=== PATIENT | male | born 1975 | race Caucasian/White ===

== ENCOUNTER 2022-10-10 10:08 | Emergency (ER) | payer SELFPAY ==
--- NOTE | 2022-10-10 10:46 | EDPHYS ---
Physician Documentation [facility] Name: Vinny Ball Age: 46 yrs Sex: Male : 1975 Arrival Date: 10/10/2022 Time: 10:08 Bed 12 Private MD: ED Physician Brenton Villatoro HPI: 10/10 10:40 This 46 yrs old WHITE Male presents to ER via Ambulatory with complaints of Toothache. emiliano 10:40 The patient presents with lost tooth/teeth, pain, redness, swelling. The problem is emiliano located in the left buccal mucosa and right buccal mucosa. Onset: The symptoms/episode began/occurred 3 day(s) ago. Duration: The symptoms are continuous, and are steadily getting worse. Modifying factors: The symptoms are alleviated by nothing, the symptoms are aggravated by chewing, food. Associated signs and symptoms: The patient has no apparent associated signs or symptoms. Severity of symptoms: At their worst the symptoms were mild, moderate, in the emergency department the symptoms are unchanged. The patient has experienced similar episodes in the past, multiple times. Historical: - Allergies: 10:22 Cipro; hb - Home Meds: 10:22 None [Active]; hb - PMHx: 10:22 None; hb - PSHx: 10:22 None; hb - Immunization history:: Adult Immunizations up to date. - Social history:: Smoking status: Patient reports the use of cigarette tobacco products, smokes one-half pack cigarettes per day. ROS: 10:41 Constitutional: Negative for fever, chills, and weight loss, Eyes: Negative for injury, emiliano pain, redness, and discharge, Neck: Negative for injury, pain, and swelling, Cardiovascular: Negative for chest pain, palpitations, and edema, Respiratory: Negative for shortness of breath, cough, wheezing, and pleuritic chest pain, Abdomen/GI: Negative for abdominal pain, nausea, vomiting, diarrhea, and constipation, Back: Negative for injury and pain, : Negative for injury, bleeding, discharge, and swelling, MS/Extremity: Negative for injury and deformity, Skin: Negative for injury, rash, and discoloration, Neuro: Negative for headache, weakness, numbness, tingling, and seizure, Psych: Negative for depression, anxiety, suicide ideation, homicidal ideation, and hallucinations, Allergy/Immunology: Negative for hives, rash, and allergies, Endocrine: Negative for neck swelling, polydipsia, polyuria, polyphagia, and marked weight changes, Hematologic/Lymphatic: Negative for swollen nodes, abnormal bleeding, and unusual bruising. 10:41 ENT: Positive for Teeth pain Exam: 10:41 Constitutional: This is a well developed, well nourished patient who is awake, alert, emiliano and in no acute distress. Head/Face: Normocephalic, atraumatic. Eyes: Pupils equal round and reactive to light, extra-ocular motions intact. Lids and lashes normal. Conjunctiva and sclera are non-icteric and not injected. Cornea within normal limits. Periorbital areas with no swelling, redness, or edema. Neck: Trachea midline, no thyromegaly or masses palpated, and no cervical lymphadenopathy. Supple, full range of motion without nuchal rigidity, or vertebral point tenderness. No Meningismus. Chest/axilla: Normal chest wall appearance and motion. Nontender with no deformity. No lesions are appreciated. Cardiovascular: Regular rate and rhythm with a normal S1 and S2. No gallops, murmurs, or rubs. Normal PMI, no JVD. No pulse deficits. Respiratory: Lungs have equal breath sounds bilaterally, clear to auscultation and percussion. No rales, rhonchi or wheezes noted. No increased work of breathing, no retractions or nasal flaring. Abdomen/GI: Soft, non-tender, with normal bowel sounds. No distension or tympany. No guarding or rebound. No evidence of tenderness throughout. Back: No spinal tenderness. No costovertebral tenderness. Full range of motion. Male : Normal genitalia with no discharge or lesions. Skin: Warm, dry with normal turgor. Normal color with no rashes, no lesions, and no evidence of cellulitis. MS/ Extremity: Pulses equal, no cyanosis. Neurovascular intact. Full, normal range of motion. Neuro: Awake and alert, GCS 15, oriented to person, place, time, and situation. Cranial nerves II-XII grossly intact. Motor strength 5/5 in all extremities. Sensory grossly intact. Cerebellar exam normal. Normal gait. Psych: Awake, alert, with orientation to person, place and time. Behavior, mood, and affect are within normal limits. 10:41 ENT: Dental exam: dental caries, that is moderate, that is severe, diffusely, fractured teeth are noted, not appreciated, gum swelling, that is mild, malocclusion, is not appreciated. Vital Signs: 10:21 BP 121 / 76; Pulse 81; Resp 16; Temp 98.4; Pulse Ox 100% on R/A; Weight 79.83 kg; hb Height 6 ft. 0 in. ; Pain 7/10; 10:21 Body Mass Index 23.87 (79.83 kg, 182.88 cm) hb 10:21 Pain Scale: Adult hb MDM: 10:26 Patient medically screened. emiliano Administered Medications: 10:49 Drug: Amoxicillin PO 500 mg Route: PO; aa5 10:53 Follow up: Response: No adverse reaction; Medication administered at discharge. aa5 10:49 Drug: Ibuprofen PO 800 mg Route: PO; aa5 10:53 Follow up: Response: No adverse reaction; Medication administered at discharge. aa5 Disposition Summary: 10/10/22 10:45 Discharge Ordered Location: Home emiliano Problem: new emiliano Symptoms: have improved emiliano Condition: Stable emiliano Diagnosis - Dental root caries emiliano - Dental caries, unspecified emiliano - Dental alveolar anomalies emiliano Followup: emiliano - With: Private Physician - When: 2 - 3 days - Reason: Recheck today's complaints, Re-evaluation by your physician Followup: emiliano - With: Jose Ramon Rivas DDS - When: 2 - 3 days - Reason: Recheck today's complaints, Re-evaluation by your physician Discharge Instructions: - Discharge Summary Sheet emiliano - Dental Caries, Adult emiliano - Dental Pain emiliano - Dental Pain, [id number] emiliano - Diet and Dental Disease emiliano - Dental Caries, Adult, [id number] [facility] Forms: - Medication Reconciliation Form [facility] - Thank You Letter [facility] - Antibiotic Education emiliano - Prescription Opioid Use [facility] Prescriptions: - Amoxicillin 500 mg Oral Capsule - take 1 capsule by ORAL route every 8 hours for 14 days; 42 tablet; Refills: 0, emiliano Product Selection Permitted - Ibuprofen 600 mg Oral Tablet - take 1 tablet by ORAL route every 6 hours As needed take with food; 30 tablet; emiliano Refills: 0, Product Selection Permitted Signatures: Brenton Villatoro MD MD cha Calderon, Audri, RN RN aa5 Ginny Delgadillo RN RN
--- NOTE | 2022-10-10 10:46 | ER ---
Nurse's Notes [facility] Name: Vinny Ball Age: 46 yrs Sex: Male : 1975 Arrival Date: 10/10/2022 Time: 10:08 Bed 12 Private MD: Diagnosis: Dental root caries;Dental caries, unspecified;Dental alveolar anomalies Presentation: 10/10 10:21 Chief complaint: Left upper tooth pain. Coronavirus screen: At this time, the client hb does not indicate any symptoms associated with coronavirus-19. Ebola Screen: No symptoms or risks identified at this time. Initial Sepsis Screen: Does the patient meet any 2 criteria? No. Patient's initial sepsis screen is negative. Does the patient have a suspected source of infection? No. Patient's initial sepsis screen is negative. Risk Assessment: Do you want to hurt yourself or someone else? Patient reports no desire to harm self or others. Onset of symptoms was October 10, 2022. 10:21 Method Of Arrival: Ambulatory hb 10:21 Acuity: HAZEL 4 hb Historical: - Allergies: 10:22 Cipro; hb - Home Meds: 10:22 None [Active]; hb - PMHx: 10:22 None; hb - PSHx: 10:22 None; hb - Immunization history:: Adult Immunizations up to date. - Social history:: Smoking status: Patient reports the use of cigarette tobacco products, smokes one-half pack cigarettes per day. Assessment: 10:52 Reassessment: Patient is alert, oriented x 3, equal unlabored respirations, skin aa5 warm/dry/pink. Vital Signs: 10:21 BP 121 / 76; Pulse 81; Resp 16; Temp 98.4; Pulse Ox 100% on R/A; Weight 79.83 kg; hb Height 6 ft. 0 in. ; Pain 7/10; 10:21 Body Mass Index 23.87 (79.83 kg, 182.88 cm) hb 10:21 Pain Scale: Adult hb ED Course: 10:11 Patient arrived in ED. mr 10:22 Triage completed. hb 10:22 Arm band placed on. hb 10:26 Brenton Villatoro MD is Attending Physician. emiliano 10:44 Jose Ramon Rivas DDS is Referral Physician. emiliano 10:53 No provider procedures requiring assistance completed. Patient did not have IV access aa5 during this emergency room visit. Administered Medications: 10:49 Drug: Amoxicillin PO 500 mg Route: PO; aa5 10:53 Follow up: Response: No adverse reaction; Medication administered at discharge. aa5 10:49 Drug: Ibuprofen PO 800 mg Route: PO; aa5 10:53 Follow up: Response: No adverse reaction; Medication administered at discharge. aa5 Outcome: 10:45 Discharge ordered by . emiliano 10:52 Discharged to home ambulatory. aa5 10:52 Condition: stable 10:52 Discharge instructions given to patient, Instructed on discharge instructions, follow up and referral plans. medication usage, Demonstrated understanding of instructions, follow-up care, medications, Prescriptions given X 2. 10:53 Patient left the ED. aa5 Signatures: Brenton Villatoro MD MD cha Rivera, Mary mr Cline, Melissa, RN RN aa5 Ginny Delgadillo, FABIAN RN hb Corrections: (The following items were deleted from the chart) 10:23 10:21 BP 138 / 68; Pulse 81bpm; Resp 16bpm; Pulse Ox 100% RA; Temp 98.4F; 79.83 kg; hb Height 6 ft.; BMI: 23.8; Pain 7/10, Adult; hb
--- OUTSIDE RECORDS SUMMARY | 2022-10-10 10:52 | XMS REPORT | Continuity of Care Document ---
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 TOP, Q24H, [place] 00 0 Refill(s) QUEtiapine 2021-05 Yes 100 mg = 1 M emoria 100 mg oral 2-15 tab, PO, l tablet 18:51: Bedtime, 0 [place] 00 Refill(s) polyethylen 2021-05 Yes 17 gm, PO, Memoria e glycol 2-15 Daily, 0 l 3350 18:51: Refill(s) [place] 00 LORazepam 2021-05 Yes 2 mg = 1 Me moria mg/mL 2-15 mL, IVP, l injectable 18:51: Q2H, PRN Her street solution 00 Withdrawal , 0 Refill(s) mirtazapine 2021-05 Yes 7.5 mg = 1 [facility] 7.5 mg oral 2-15 tab, PO, l tablet 18:51: Bedtime, 0 [place] 00 Refill(s) nicotine 2021-05 Yes 14 mg = 1 Eliecer shannan 2-15 patch, l 18:51: TOP, Q24H, [place] 00 0 Refill(s) QUEtiapine 2021-05 Yes 100 mg = 1 M emoria 100 mg oral 2-15 tab, PO, l tablet 18:51: Bedtime, 0 [place] 00 Refill(s) polyethylen 2021-05 Yes 17 gm, PO, [facility]oria e glycol 2-15 Daily, 0 l 3350 18:51: Refill(s) LORazepam 2021-05 Yes 2 mg = 1 Me moria mg/mL 2-15 mL, IVP, l injectable 18:51: Q2H, PRN Her street solution 00 Withdrawal , 0 Refill(s) mirtazapine 2021-05 Yes 7.5 mg = 1 [facility] 7.5 mg oral 2-15 tab, PO, l tablet 18:51: Bedtime, 0 [place] 00 Refill(s) nicotine 2021-05 Yes 14 mg = 1 Eliecer shannan 2-15 patch, l 18:51: TOP, Q24H, [place] 00 0 Refill(s) QUEtiapine 2021-05 Yes 100 mg = 1 M emoria 100 mg oral 2-15 tab, PO, l tablet 18:51: Bedtime, 0 [place] 00 Refill(s) polyethylen 2021-05 Yes 17 gm, PO, Memoria e glycol 2-15 Daily, 0 l 3350 18:51: Refill(s) LORazepam 2 1 Yes 2 mg = 1 Me moria mg/mL 2-15 mL, IVP, l injectable 18:51: Q2H, PRN Her street solution 00 Withdrawal , 0 Refill(s) mirtazapine 2021-05 Yes 7.5 mg = 1 [facility] 7.5 mg oral 2-15 tab, PO, l tablet 18:51: Bedtime, 0 [place] 00 Refill(s) nicotine 2021-05 Yes 14 mg = 1 Eliecer shannan 2-15 patch, l 18:51: TOP, Q24H, [place] 00 0 Refill(s) QUEtiapine 2021-05 Yes 100 mg = 1 M emoria 100 mg oral 2-15 tab, PO, l tablet 18:51: Bedtime, 0 [place] 00 Refill(s) polyethylen 2021-05 Yes 17 gm, PO, Memoria e glycol 2-15 Daily, 0 l 3350 18:51: Refill(s) LORazepam 2021-05 Yes 2 mg = 1 Me moria mg/mL 2-15 mL, IVP, l injectable 18:51: Q2H, PRN Her street solution 00 Withdrawal , 0 Refill(s) mirtazapine 2021-05 Yes 7.5 mg = 1 [facility] 7.5 mg oral 2-15 tab, PO, l tablet 18:51: Bedtime, 0 [place] 00 Refill(s) nicotine 2021-05 Yes 14 mg = 1 Eliecer shannan 2-15 patch, l 18:51: TOP, Q24H, [place] 00 0 Refill(s) QUEtiapine 2021-05 Yes 100 mg = 1 M emoria 100 mg oral 2-15 tab, PO, l tablet 18:51: Bedtime, 0 [place] 00 Refill(s) polyethylen 2021-05 Yes 17 gm, PO, [facility]oria e glycol 2-15 Daily, 0 l 3350 18:51: Refill(s) LORazepam 2021-05 Yes 2 mg = 1 Me moria mg/mL 2-15 mL, IVP, l injectable 18:51: Q2H, PRN Her street solution 00 Withdrawal , 0 Refill(s) mirtazapine 2021-05 Yes 7.5 mg = 1 [facility] 7.5 mg oral 2-15 tab, PO, l tablet 18:51: Bedtime, 0 [place] 00 Refill(s) nicotine 2021-05 Yes 14 mg = 1 Eliecer shannan 2-15 patch, l 18:51: TOP, Q24H, [place] 00 0 Refill(s) QUEtiapine 2021-05 Yes 100 mg = 1 M emoria 100 mg oral 2-15 tab, PO, l tablet 18:51: Bedtime, 0 [place] 00 Refill(s) polyethylen 2021-05 Yes 17 gm, PO, Memoria e glycol 2-15 Daily, 0 l 3350 18:51: Refill(s) [place] 00 Ativan 2021-05 No 0.5 mg, [facility] 2-12 Route: PO, l 20:05: Drug form: [place] 00 TAB, TID, Dosing Weight 83.182, kg, PRN Anxiety, Start date: 04/18/22 14:05:00 [employer], Duration: 30 day, Stop date: 05/18/22 14:04:00 [employer] Ativan 2021-05 No 0.5 mg, [facility] 2-12 Route: PO, l 20:05: Drug form: [place] 00 TAB, TID, Dosing Weight 83.182, kg, PRN Anxiety, Start date: 04/18/22 14:05:00 [employer], Duration: 30 day, Stop date: 05/18/22 14:04:00 [employer] Ativan 2021-05 No 0.5 mg, [facility] 2-12 Route: PO, l 20:05: Drug form: [place] 00 TAB, TID, Dosing Weight 83.182, kg, PRN Anxiety, Start date: 04/18/22 14:05:00 [employer], Duration: 30 day, Stop date: 05/18/22 14:04:00 [employer] Ativan 2021-05 No 0.5 mg, [facility] 2-12 Route: PO, l 20:05: Drug form: [place] 00 TAB, TID, Dosing Weight 83.182, kg, PRN Anxiety, Start date: 04/18/22 14:05:00 [employer], Duration: 30 day, Stop date: 05/18/22 14:04:00 [employer] Ativan 2021-05 No 0.5 mg, [facility] 2-12 Route: PO, l 20:05: Drug form: [place] 00 TAB, TID, Dosing Weight 83.182, kg, PRN Anxiety, Start date: 04/18/22 14:05:00 [employer], Duration: 30 day, Stop date: 05/18/22 14:04:00 [employer] Ativan 2021-05 No 0.5 mg, [facility] 2-12 Route: PO, l 20:05: Drug form: [place] 00 TAB, TID, Dosing Weight 83.182, kg, PRN Anxiety, Start date: 04/18/22 14:05:00 [employer], Duration: 30 day, Stop date: 05/18/22 14:04:00 [employer] Ativan 2021-05 No 0.5 mg, [facility] 2-12 Route: PO, l 20:05: Drug form: [place] 00 TAB, TID, Dosing Weight 83.182, kg, PRN Anxiety, Start date: 04/18/22 14:05:00 [employer], Duration: 30 day, Stop date: 05/18/22 14:04:00 [employer] Ativan 2021-05 No 0.5 mg, [facility] 2-12 Route: PO, l 20:05: Drug form: [place] 00 TAB, TID, Dosing Weight 83.182, kg, PRN Anxiety, Start date: 04/18/22 14:05:00 [employer], Duration: 30 day, Stop date: 05/18/22 14:04:00 [employer] SEROquel 2021-05 No Notes: [facility] 2-09 (Same as: l 15:00: SEROquel) [place] SEROquel 2021-05 No Notes: [facility] 2-09 (Same as: l 15:00: SEROquel) [place] SEROquel 2021-05 No Notes: [facility] 2-09 (Same as: l 15:00: SEROquel) [place] SEROquel 2021-05 No Notes: [facility] 2-09 (Same as: l 15:00: SEROquel) [place] 00 SEROquel 2021-05 No Notes: [facility] 2-09 (Same as: l 15:00: SEROquel) [place] SEROquel 2021-05 No Notes: [facility] 2-09 (Same as: l 15:00: SEROquel) SEROquel 2021-05 No Notes: [facility] 2-09 (Same as: l 15:00: SEROquel) SEROquel 2021-05 No Notes: [facility] 2-09 (Same as: l 15:00: SEROquel) Tylenol 2021-05 No Notes: Do Memor ia 2-09 not exceed l 04:56: 4 gm/day. (Same as: Tylenol) Tylenol 2021-05 No Notes: Do Memor ia 2-09 not exceed l 04:56: 4 gm/day. (Same as: Tylenol) Tylenol 2021-05 No Notes: Do Memor ia 2-09 not exceed l 04:56: 4 gm/day. (Same as: Tylenol) Tylenol 2021-05 No Notes: Do Memor ia 2-09 not exceed l 04:56: 4 gm/day. (Same as: Tylenol) Tylenol 2021-05 No Notes: Do Memor ia 2-09 not exceed l 04:56: 4 gm/day. (Same as: Tylenol) Tylenol 2021-05 No Notes: Do Memor ia 2-09 not exceed l 04:56: 4 gm/day. (Same as: Tylenol) Tylenol 2021-05 No Notes: Do [facility] ia 2-09 not exceed l 04:56: 4 gm/day. (Same as: Tylenol) Tylenol 2021-05 No Notes: Do [facility] ia 2-09 not exceed l 04:56: 4 gm/day. (Same as: Tylenol) SEROquel 2021-05 No Notes: [facility] 2-09 (Same as: l 03:00: SEROquel) SEROquel 2021-05 No Notes: [facility] 2-09 (Same as: l 03:00: SEROquel) SEROquel 2021-05 No Notes: [facility] 2-09 (Same as: l 03:00: SEROquel) SEROquel 2021-05 No Notes: [facility] 2-09 (Same as: l 03:00: SEROquel) [place] 00 SEROquel 2021-05 No Notes: [facility] 2-09 (Same as: l 03:00: SEROquel) [place] 00 SEROquel 2021-05 No Notes: [facility] 2-09 (Same as: l 03:00: SEROquel) [place] 00 SEROquel 2021-05 No Notes: [facility] 2-09 (Same as: l 03:00: SEROquel) [place] 00 SEROquel 2021-05 No Notes: [facility] 2-09 (Same as: l 03:00: SEROquel) [place] 00 remove 2021-05 No Notes: [facility] patch 2-08 Remove old l 20:00: patch [place] 00 before applicatio n of new patch. WASTE: F/P - P Waste Black; E - P Waste Black remove 2021-05 No Notes: [facility] patch 2-08 Remove old l 20:00: patch [place] 00 before applicatio n of new patch. WASTE: F/P - P Waste Black; E - P Waste Black remove 2021-05 No Notes: [facility] patch 2-08 Remove old l 20:00: patch [place] 00 before applicatio n of new patch. WASTE: F/P - P Waste Black; E - P Waste Black remove 2021-05 No Notes: [facility] patch 2-08 Remove old l 20:00: patch [place] 00 before applicatio n of new patch. WASTE: F/P - P Waste Black; E - P Waste Black remove 2021-05 No Notes: [facility] patch 2-08 Remove old l 20:00: patch [place] 00 before applicatio n of new patch. WASTE: F/P - P Waste Black; E - P Waste Black remove 2021-05 No Notes: [facility] patch 2-08 Remove old l 20:00: patch [place] 00 before applicatio n of new patch. WASTE: F/P - P Waste Black; E - P Waste Black remove 2021-05 No Notes: [facility] patch 2-08 Remove old l 20:00: patch [place] 00 before applicatio n of new patch. WASTE: F/P - P Waste Black; E - P Waste Black remove 2021-05 No Notes: [facility] patch 2-08 Remove old l 20:00: patch [place] 00 before applicatio n of new patch. WASTE: F/P - P Waste Black; E - P Waste Black dol 2021-05 No Notes: [facility] 2-08 (Same as: l 19:27: Haldol) [place] 00 Haldol 2021-05 No Notes: [facility] 2-08 (Same as: l 19:27: Haldol) [place] 00 Haldol 2021-05 No Notes: [facility] 2-08 (Same as: l 19:27: Haldol) [place] 00 Haldol 2021-05 No Notes: [facility] 2-08 (Same as: l 19:27: Haldol) Haldol 2021-05 No Notes: [facility] 2-08 (Same as: l 19:27: Haldol) [place] 00 Haldol 2021-05 No Notes: [facility] 2-08 (Same as: l 19:27: Haldol) [place] 00 Haldol 2021-05 No Notes: [facility] 2-08 (Same as: l 19:27: Haldol) [place] 00 Haldol 2021-05 No Notes: [facility] 2-08 (Same as: l 19:27: Haldol) Ativan 2021-05 No Notes: [facility] 2-08 (Same as: l 18:00: Ativan) Ativan 2021-05 No Notes: [facility] 2-08 (Same as: l 18:00: Ativan) Ativan 2021-05 No Notes: [facility] 2-08 (Same as: l 18:00: Ativan) Ativan 2021-05 No Notes: [facility] 2-08 (Same as: l 18:00: Ativan) Ativan 2021-05 No Notes: [facility] 2-08 (Same as: l 18:00: Ativan) Ativan 2021-05 No Notes: [facility] 2-08 (Same as: l 18:00: Ativan) Ativan 2021-05 No Notes: [facility] 2-08 (Same as: l 18:00: Ativan) Ativan 2021-05 No Notes: [facility] 2-08 (Same as: l 18:00: Ativan) [place] 00 SEROquel 2021-05 No Notes: [facility] 2-08 (Same as: l 15:00: SEROquel) [place] 00 SEROquel 2021-05 No Notes: [facility] 2-08 (Same as: l 15:00: SEROquel) [place] 00 SEROquel 2021-05 No Notes: [facility] 2-08 (Same as: l 15:00: SEROquel) [place] 00 SEROquel 2021-05 No Notes: [facility] 2-08 (Same as: l 15:00: SEROquel) [place] SEROquel 2021-05 No Notes: [facility] 2-08 (Same as: l 15:00: SEROquel) [place] SEROquel 2021-05 No Notes: [facility] 2-08 (Same as: l 15:00: SEROquel) [place] SEROquel 2021-05 No Notes: [facility] 2-08 (Same as: l 15:00: SEROquel) [place] 00 SEROquel 2021-05 No Notes: [facility] 2-08 (Same as: l 15:00: SEROquel) [place] 00 sterile 2021-05 No Notes: For Eliecer shannan water 2-08 reconstitu l 13:46: tion of [place] 00 drugs only sterile 2021-05 No Notes: For Eliecer shannan water 2-08 reconstitu l 13:46: tion of [place] 00 drugs only sterile 2021-05 No Notes: For Eliecer shannan water 2-08 reconstitu l 13:46: tion of [place] 00 drugs only sterile 2021-05 No Notes: For Eliecer shannan water 2-08 reconstitu l 13:46: tion of [place] 00 drugs only sterile 2021-05 No Notes: For Eliecer shannan water 2-08 reconstitu l 13:46: tion of [place] 00 drugs only sterile 2021-05 No Notes: For Eliecer shannan water 2-08 reconstitu l 13:46: tion of [place] 00 drugs only sterile 2021-05 No Notes: For Eliecer shannan water 2-08 reconstitu l 13:46: tion of [place] 00 drugs only sterile 2021-05 No Notes: For Eliecer shannan water 2-08 reconstitu l 13:46: tion of [place] 00 drugs only Geodon 2021-05 No Notes: [facility] 2-08 Reconstitu l 13:31: te with [place] 00 1.2 ml of sterile water. Final concentrat ion = 20 mg/1ml. Maximum 40 mg/24 hours (Same As: Lizeth). [facility] 3:Reproduc tive risk Hazardous Drug -- Refer to safe handling procedure PPE [employer] MEDICATION WASTE Product Size: 20 mg Product Wasted: ___ mg Geodon 2021-05 No Notes: [facility] 2-08 Reconstitu l 13:31: te with [place] 00 1.2 ml of sterile water. Final concentrat ion = 20 mg/1ml. Maximum 40 mg/24 hours (Same As: Lizeth). [facility]ous [facility] Group 3:Reproduc tive risk Hazardous Drug -- Refer to safe handling procedure PPE [employer] MEDICATION WASTE Product Size: 20 mg Product Wasted: ___ mg Geodon 2021-05 No Notes: [facility] 2-08 Reconstitu l 13:31: te with [place] 00 1.2 ml of sterile water. Final concentrat ion = 20 mg/1ml. Maximum 40 mg/24 hours (Same As: Lizeth). [facility]ous [facility] 3:Reproduc tive risk Hazardous Drug -- Refer to safe handling procedure PPE [employer] MEDICATION WASTE Product Size: 20 mg Product Wasted: ___ mg Geodon 2021-05 No Notes: [facility] 2-08 Reconstitu l 13:31: te with [place] 00 1.2 ml of sterile water. Final concentrat ion = 20 mg/1ml. Maximum 40 mg/24 hours (Same As: Lizeth). [facility]ous [facility] 3:Reproduc tive risk Hazardous Drug -- Refer to safe handling procedure PPE [employer] MEDICATION WASTE Product Size: 20 mg Product Wasted: ___ mg Geodon 2021-05 No Notes: [facility] 2-08 Reconstitu l 13:31: te with [place] 00 1.2 ml of sterile water. Final concentrat ion = 20 mg/1ml. Maximum 40 mg/24 hours (Same As: [place]). [facility] Group 3:Reproduc tive risk Hazardous Drug -- Refer to safe handling procedure PPE [employer] MEDICATION WASTE Product Size: 20 mg Product Wasted: ___ mg Geodon 2021-05 No Notes: [facility] 2-08 Reconstitu l 13:31: te with [place] 00 1.2 ml of sterile water. Final concentrat ion = 20 mg/1ml. Maximum 40 mg/24 hours (Same As: Lizeth). [facility]ous [facility] Group 3:Reproduc tive risk Hazardous Drug -- Refer to safe handling procedure PPE [employer] MEDICATION WASTE Product Size: 20 mg Product Wasted: ___ mg Geodon 2021-05 No Notes: [facility] 2-08 Reconstitu l 13:31: te with [place] 00 1.2 ml of sterile water. Final concentrat ion = 20 mg/1ml. Maximum 40 mg/24 hours (Same As: Lizeth). Haz[facility]ous Drug Group 3:Reproduc tive risk Hazardous Drug -- Refer to safe handling procedure PPE [employer] MEDICATION WASTE Product Size: 20 mg Product Wasted: ___ mg Geodon 2021-05 No Notes: [facility] 2-08 Reconstitu l 13:31: te with [place] 00 1.2 ml of sterile water. Final concentrat ion = 20 mg/1ml. Maximum 40 mg/24 hours (Same As: [place]). Hazardous Drug Group 3:Reproduc tive risk Hazardous Drug -- Refer to safe handling procedure PPE [employer] MEDICATION WASTE Product Size: 20 mg Product Wasted: ___ mg Ativan 2021-05 Yes Notes: [facility] 2-08 (Same as: l 12:53: Ativan) [place] Ativan 2021-05 Yes Notes: [facility] 2-08 (Same as: l 12:53: Ativan) [place] Ativan 2021-05 Yes Notes: [facility] 2-08 (Same as: l 12:53: Ativan) [place] Ativan 2021-05 Yes Notes: [facility] 2-08 (Same as: l 12:53: Ativan) [place] Ativan 2021-05 Yes Notes: [facility] 2-08 (Same as: l 12:53: Ativan) [place] Ativan 2021-05 Yes Notes: [facility] 2-08 (Same as: l 12:53: Ativan) [place] 00 Ativan 2021-05 Yes Notes: [facility] 2-08 (Same as: l 12:53: Ativan) [place] Ativan 2021-05 Yes Notes: [facility] 2-08 (Same as: l 12:53: Ativan) [place] 00 mirtazapine 2021-05 No Notes: Eliecer shannan 2-08 (Same l 03:00: as:Remeron [place] 00 ) mirtazapine 2021-05 No Notes: Eliecer shannan 2-08 (Same l 03:00: as:Remeron [place] 00 ) mirtazapine 2021-05 No Notes: Eliecer shannan 2-08 (Same l 03:00: as:Remeron [place] 00 ) mirtazapine 2021-05 No Notes: Eliecer shannan 2-08 (Same l 03:00: as:Remeron [place] 00 ) mirtazapine 2021-05 No Notes: Eliecer shannan 2-08 (Same l 03:00: as:Remeron [place] 00 ) mirtazapine 2021-05 No Notes: Eliecer shannan 2-08 (Same l 03:00: as:Remeron [place] 00 ) mirtazapine 2021-05 No Notes: Eliecer shannan 2-08 (Same l 03:00: as:Remeron [place] 00 ) mirtazapine 2021-05 No Notes: Eliecer shannan 2-08 (Same l 03:00: as:Remeron [place] 00 ) Xanax 0.5 2021-05 No Notes: Memori a mg oral 2-07 With food l tablet 22:23: or milk [place] 00 (Same as: Xanax) Xanax 0.5 2021-05 No Notes: [facility]ori a mg oral 2-07 With food l tablet 22:23: or milk [place] 00 (Same as: Xanax) Xanax 0.5 2021-05 No Notes: [facility]ori a mg oral 2-07 With food l tablet 22:23: or milk [place] 00 (Same as: Xanax) Xanax 0.5 2021-05 No Notes: [facility]ori a mg oral 2-07 With food l tablet 22:23: or milk [place] 00 (Same as: Xanax) Xanax 0.5 2021-05 No Notes: [facility]ori a mg oral 2-07 With food l tablet 22:23: or milk [place] 00 (Same as: Xanax) Xanax 0.5 2021-05 No Notes: [facility]ori a mg oral 2-07 With food l tablet 22:23: or milk [place] 00 (Same as: Xanax) Xanax 0.5 2021-05 No Notes: [facility]ori a mg oral 2-07 With food l tablet 22:23: or milk [place] 00 (Same as: Xanax) Xanax 0.5 2021-05 No Notes: [facility] a mg oral 2-07 With food l tablet 22:23: or milk [place] 00 (Same as: Xanax) nicotine 2021-05 No Notes: [facility] 2-07 Patch is l 20:00: applied [place] 00 daily to clean, dry, hairless, intact skin on trunk or upper outer arm. Starting dose 10 or less cigarettes /day. Remove old patch before applicatio n of new patch. (Same as Sudha Nicoderm WASTE: F/P - P Waste Black; E - P Waste Black nicotine 2021-05 No Notes: [facility] 2-07 Patch is l 20:00: applied [place] 00 daily to clean, dry, hairless, intact skin on trunk or upper outer arm. Starting dose 10 or less cigarettes /day. Remove old patch before applicatio n of new patch. (Same as Sudha Nicoderm WASTE: F/P - P Waste Black; E - P Waste Black nicotine 2021-05 No Notes: [facility] 2-07 Patch is l 20:00: applied [place] 00 daily to clean, dry, hairless, intact skin on trunk or upper outer arm. Starting dose 10 or less cigarettes /day. Remove old patch before applicatio n of new patch. (Same as Sudha Nicoderm WASTE: F/P - P Waste Black; E - P Waste Black nicotine 2021-05 No Notes: [facility] 2-07 Patch is l 20:00: applied [place] 00 daily to clean, dry, hairless, intact skin on trunk or upper outer arm. Starting dose 10 or less cigarettes /day. Remove old patch before applicatio n of new patch. (Same as Habitrol, Nicoderm WASTE: F/P - P Waste Black; E - P Waste Black nicotine 2021-05 No Notes: [facility] 2-07 Patch is l 20:00: applied [place] 00 daily to clean, dry, hairless, intact skin on trunk or upper outer arm. Starting dose 10 or less cigarettes /day. Remove old patch before applicatio n of new patch. (Same as Habitrol, Nicoderm WASTE: F/P - P Waste Black; E - P Waste Black nicotine 2021-05 No Notes: [facility] 2-07 Patch is l 20:00: applied [place] 00 daily to clean, dry, hairless, intact skin on trunk or upper outer arm. Starting dose 10 or less cigarettes /day. Remove old patch before applicatio n of new patch. (Same as Habitrol, Nicoderm WASTE: F/P - P Waste Black; E - P Waste Black nicotine 2021-05 No Notes: [facility] 2-07 Patch is l 20:00: applied [place] 00 daily to clean, dry, hairless, intact skin on trunk or upper outer arm. Starting dose 10 or less cigarettes /day. Remove old patch before applicatio n of new patch. (Same as Habitrol, Nicoderm WASTE: F/P - P Waste Black; E - P Waste Black nicotine 2021-05 No Notes: [facility] 2-07 Patch is l 20:00: applied [place] 00 daily to clean, dry, hairless, intact skin on trunk or upper outer arm. Starting dose 10 or less cigarettes /day. Remove old patch before applicatio n of new patch. (Same as Habitrol, Nicoderm WASTE: F/P - P Waste Black; E - P Waste Black polyethylen 2021-05 No Notes: Eliecer shannan e glycol 2-07 Dissolve l 3350 15:00: in 8 oz of [place] 00 water or juice. (Same as: Miralax) heparin 2021-05 No Notes: [facility] 2-07 porcine l 15:00: heparin [place] 00 folic acid 2021-05 No Notes: Memor ia 2-07 (Same as: l 15:00: Folvite) [place] 00 multivitami 2021-05 No Notes: Eliecer shannan n 2-07 (Same l 15:00: as:Thera) [place] 00 WASTE: F/P - Black; E - [employer] Trash Bin Take with food. thiamine 2021-05 No Notes: [facility] 2-07 (Same As: l 15:00: Vitamin [place] 00 B1) polyethylen 2021-05 No Notes: Eliecer shannan e glycol 2-07 Dissolve l 3350 15:00: in 8 oz of [place] 00 water or juice. (Same as: Miralax) heparin 2021-05 No Notes: [facility] 2-07 porcine l 15:00: heparin [place] 00 folic acid 2021-05 No Notes: [facility] ia 2-07 (Same as: l 15:00: Folvite) [place] 00 multivitami 2021-05 No Notes: Eliecer shannan n 2-07 (Same l 15:00: as:Thera) [place] 00 WASTE: F/P - Black; E - [employer] Trash Bin Take with food. thiamine 2021-05 No Notes: [facility] 2-07 (Same As: l 15:00: Vitamin [place] 00 B1) polyethylen 2021-05 No Notes: Eliecer shannan e glycol 2-07 Dissolve l 3350 15:00: in 8 oz of [place] 00 water or juice. (Same as: Miralax) heparin 2021-05 No Notes: [facility] 2-07 porcine l 15:00: heparin [place] 00 folic acid 2021-05 No Notes: [facility] ia 2-07 (Same as: l 15:00: Folvite) [place] 00 multivitami 2021-05 No Notes: Eliecer shannan n 2-07 (Same l 15:00: as:Thera) [place] 00 WASTE: F/P - Black; E - [employer] Trash Bin Take with food. thiamine 2021-05 No Notes: [facility] 2-07 (Same As: l 15:00: Vitamin [place] 00 B1) polyethylen 2021-05 No Notes: Eliecer shannan e glycol 2-07 Dissolve l 3350 15:00: in 8 oz of [place] 00 water or juice. (Same as: Miralax) heparin 2021-05 No Notes: [facility] 2-07 porcine l 15:00: heparin [place] 00 folic acid 2021-05 No Notes: [facility] ia 2-07 (Same as: l 15:00: Folvite) [place] 00 multivitami 2021-05 No Notes: Eliecer shannan n 2-07 (Same l 15:00: as:Thera) [place] 00 WASTE: F/P - Black; E - [employer] Trash Bin Take with food. thiamine 2021-05 No Notes: [facility] 2-07 (Same As: l 15:00: Vitamin [place] 00 B1) polyethylen 2021-05 No Notes: Eliecer shannan e glycol 2-07 Dissolve l 3350 15:00: in 8 oz of [place] 00 water or juice. (Same as: Miralax) heparin 2021-05 No Notes: [facility] 2-07 porcine l 15:00: heparin [place] 00 folic acid 2021-05 No Notes: [facility] ia 2-07 (Same as: l 15:00: Folvite) [place] 00 multivitami 2021-05 No Notes: Eliecer shannan n 2-07 (Same l 15:00: as:Thera) [place] 00 WASTE: F/P - Black; E - [employer] Trash Bin Take with food. thiamine 2021-05 No Notes: [facility] 2-07 (Same As: l 15:00: Vitamin [place] 00 B1) polyethylen 2021-05 No Notes: Eliecer shannan e glycol 2-07 Dissolve l 3350 15:00: in 8 oz of [place] 00 water or juice. (Same as: Miralax) heparin 2021-05 No Notes: [facility] 2-07 porcine l 15:00: heparin [place] 00 folic acid 2021-05 No Notes: [facility] ia 2-07 (Same as: l 15:00: Folvite) [place] 00 multivitami 2021-05 No Notes: Eliecer shannan n 2-07 (Same l 15:00: as:Thera) [place] 00 WASTE: F/P - Black; E - Municipal Trash Bin Take with food. thiamine 2021-05 No Notes: Memoria 2-07 (Same As: l 15:00: Vitamin [place] 00 B1) polyethylen 2021-05 No Notes: Eliecer shannan e glycol 2-07 Dissolve l 3350 15:00: in 8 oz of [place] 00 water or juice. (Same as: Miralax) heparin 2021-05 No Notes: Memoria 2-07 porcine l 15:00: heparin [place] 00 folic acid 2021-05 No Notes: Memor ia 2-07 (Same as: l 15:00: Folvite) [place] 00 multivitami 2021-05 No Notes: Eliecer shannan n 2-07 (Same l 15:00: as:Thera) [place] 00 WASTE: F/P - Black; E - [employer] Trash Bin Take with food. thiamine 2021-05 No Notes: Memoria 2-07 (Same As: l 15:00: Vitamin [place] 00 B1) polyethylen 2021-05 No Notes: Eliecer shannan e glycol 2-07 Dissolve l 3350 15:00: in 8 oz of [place] 00 water or juice. (Same as: Miralax) heparin 2021-05 No Notes: Memoria 2-07 porcine l 15:00: heparin [place] 00 folic acid 2021-05 No Notes: Memor ia 2-07 (Same as: l 15:00: Folvite) [place] 00 multivitami 2021-05 No Notes: Eliecer shannan n 2-07 (Same l 15:00: as:Thera) [place] 00 WASTE: F/P - Black; E - [employer] Trash Bin Take with food. thiamine 2021-05 No Notes: [facility] 2-07 (Same As: l 15:00: Vitamin [place] 00 B1) morphine 2021-05 No Notes: [facility] Sulfate 2-07 (Same l 10:45: as:MORPhin [place] 00 e Sulfate) morphine 2021-05 No Notes: [facility] Sulfate 2-07 (Same l 10:45: as:MORPhin [place] 00 e Sulfate) morphine 2021-05 No Notes: [facility] Sulfate 2-07 (Same l 10:45: as:MORPhin [place] 00 e Sulfate) morphine 2021-05 No Notes: [facility] Sulfate 2-07 (Same l 10:45: as:MORPhin [place] 00 e Sulfate) morphine 2021-05 No Notes: [facility] Sulfate 2-07 (Same l 10:45: as:MORPhin [place] 00 e Sulfate) morphine 2021-05 No Notes: [facility] Sulfate 2-07 (Same l 10:45: as:MORPhin Cehng 00 e Sulfate) morphine 2021-05 No Notes: [facility] Sulfate 2-07 (Same l 10:45: as:MORPhin [place] 00 e Sulfate) morphine 2021-05 No Notes: [facility] Sulfate 2-07 (Same l 10:45: as:MORPhin [place] 00 e Sulfate) LORazepam 2021-05 No Notes: [facility]ori a 2-07 (Same as: l 09:21: Ativan) LORazepam 2021-05 No Notes: [facility] a 2-07 (Same as: l 09:21: Ativan) LORazepam 2021-05 No Notes: [facility] a 2-07 (Same as: l 09:21: Ativan) LORazepam 2021-05 No Notes: [facility] a 2-07 (Same as: l 09:21: Ativan) LORazepam 2021-05 No Notes: [facility] a 2-07 (Same as: l 09:21: Ativan) LORazepam 2021-05 No Notes: [facility] a 2-07 (Same as: l 09:21: Ativan) LORazepam 2021-05 No Notes: [facility] a 2-07 (Same as: l 09:21: Ativan) LORazepam 2021-05 No Notes: [facility] a 2-07 (Same as: l 09:21: Ativan) melatonin 2021-05 No Notes: [facility] a 2-07 (Same as: l 09:19: Melatonin) melatonin 2021-05 No Notes: [facility] a 2-07 (Same as: l 09:19: Melatonin) melatonin 2021-05 No Notes: [facility] a 2-07 (Same as: l 09:19: Melatonin) melatonin 2021-05 No Notes: [facility] a 2-07 (Same as: l 09:19: Melatonin) melatonin 2021-05 No Notes: [facility] a 2-07 (Same as: l 09:19: Melatonin) melatonin 2021-05 No Notes: [facility] a 2-07 (Same as: l 09:19: Melatonin) melatonin 2021-05 No Notes: [facility] a 2-07 (Same as: l 09:19: Melatonin) [place] melatonin 2021-05 No Notes: [facility] a 2-07 (Same as: l 09:19: Melatonin) [place] Dextrose 2021-05 No 12.5 gm, [facility] 50% Syringe 2-07 25 mL, l (D50W) 09:18: Route: [place] 00 IVP, Drug Form: INJ, Dosing Weight 82.727, kg, PRN, PRN Blood Glucose Results, Start date: 04/13/22 3:18:00 [employer], Duration: 30 day, Stop date: 05/13/22 3:17:00 [employer], 0 glucagon 2021-05 No 1 mg, [facility] 2-07 Route: IM, l 09:18: Drug form: [place] 00 PDR/INJ, PRN, Dosing Weight 82.727, kg, PRN Blood Glucose Results, Start date: 04/13/22 3:18:00 [employer], Duration: 30 day, Stop date: 05/13/22 3:17:00 [employer], 0 melatonin 2021-05 No Notes: [facility] a 2-07 (Same as: l 09:18: Melatonin) [place] Dextrose 2021-05 No 12.5 gm, [facility] 50% Syringe 2-07 25 mL, l (D50W) 09:18: Route: [place] 00 IVP, Drug Form: INJ, Dosing Weight 82.727, kg, PRN, PRN Blood Glucose Results, Start date: 04/13/22 3:18:00 [employer], Duration: 30 day, Stop date: 05/13/22 3:17:00 [employer], 0 glucagon 2021-05 No 1 mg, [facility] 2-07 Route: IM, l 09:18: Drug form: [place] 00 PDR/INJ, PRN, Dosing Weight 82.727, kg, PRN Blood Glucose Results, Start date: 04/13/22 3:18:00 [employer], Duration: 30 day, Stop date: 05/13/22 3:17:00 [employer], 0 melatonin 2021-05 No Notes: [facility] a 2-07 (Same as: l 09:18: Melatonin) [place] 00 Dextrose 2022-1 No 12.5 gm, [facility] 50% Syringe 2-07 25 mL, l (D50W) 09:18: Route: [place] 00 IVP, Drug Form: INJ, Dosing Weight 82.727, kg, PRN, PRN Blood Glucose Results, Start date: 04/13/22 3:18:00 [employer], Duration: 30 day, Stop date: 05/13/22 3:17:00 [employer], 0 glucagon 2021-05 No 1 mg, [facility] 2-07 Route: IM, l 09:18: Drug form: [place] 00 PDR/INJ, PRN, Dosing Weight 82.727, kg, PRN Blood Glucose Results, Start date: 04/13/22 3:18:00 [employer], Duration: 30 day, Stop date: 05/13/22 3:17:00 [employer], 0 melatonin 2021-05 No Notes: [facility] a 2-07 (Same as: l 09:18: Melatonin) [place] 00 Dextrose 2021-05 No 12.5 gm, [facility] 50% Syringe 2-07 25 mL, l (D50W) 09:18: Route: [place] 00 IVP, Drug Form: INJ, Dosing Weight 82.727, kg, PRN, PRN Blood Glucose Results, Start date: 04/13/22 3:18:00 [employer], Duration: 30 day, Stop date: 05/13/22 3:17:00 [employer], 0 glucagon 2021-05 No 1 mg, [facility] 2-07 Route: IM, l 09:18: Drug form: [place] 00 PDR/INJ, PRN, Dosing Weight 82.727, kg, PRN Blood Glucose Results, Start date: 04/13/22 3:18:00 [employer], Duration: 30 day, Stop date: 05/13/22 3:17:00 [employer], 0 melatonin 2021-05 No Notes: [facility] a 2-07 (Same as: l 09:18: Melatonin) [place] 00 Dextrose 2021-05 No 12.5 gm, [facility] 50% Syringe 2-07 25 mL, l (D50W) 09:18: Route: [place] 00 IVP, Drug Form: INJ, Dosing Weight 82.727, kg, PRN, PRN Blood Glucose Results, Start date: 04/13/22 3:18:00 [employer], Duration: 30 day, Stop date: 05/13/22 3:17:00 [employer], 0 glucagon 2021- No 1 mg, [facility] 2-07 Route: IM, l 09:18: Drug form: [place] 00 PDR/INJ, PRN, Dosing Weight 82.727, kg, PRN Blood Glucose Results, Start date: 04/13/22 3:18:00 [employer], Duration: 30 day, Stop date: 05/13/22 3:17:00 [employer], 0 melatonin 2021-05 No Notes: [facility] a 2-07 (Same as: l 09:18: Melatonin) [place] 00 Dextrose 2021-05 No 12.5 gm, [facility] 50% Syringe 2-07 25 mL, l (D50W) 09:18: Route: [place] 00 IVP, Drug Form: INJ, Dosing Weight 82.727, kg, PRN, PRN Blood Glucose Results, Start date: 04/13/22 3:18:00 [employer], Duration: 30 day, Stop date: 05/13/22 3:17:00 [employer], 0 glucagon 2021- No 1 mg, [facility] 2-07 Route: IM, l 09:18: Drug form: [place] 00 PDR/INJ, PRN, Dosing Weight 82.727, kg, PRN Blood Glucose Results, Start date: 04/13/22 3:18:00 [employer], Duration: 30 day, Stop date: 05/13/22 3:17:00 [employer], 0 melatonin 2021-05 No Notes: [facility] a 2-07 (Same as: l 09:18: Melatonin) [place] 00 Dextrose 2021-05 No 12.5 gm, [facility] 50% Syringe 2-07 25 mL, l (D50W) 09:18: Route: [place] 00 IVP, Drug Form: INJ, Dosing Weight 82.727, kg, PRN, PRN Blood Glucose Results, Start date: 04/13/22 3:18:00 [employer], Duration: 30 day, Stop date: 05/13/22 3:17:00 [employer], 0 glucagon 2021-1 No 1 mg, [facility] 2-07 Route: IM, l 09:18: Drug form: [place] 00 PDR/INJ, PRN, Dosing Weight 82.727, kg, PRN Blood Glucose Results, Start date: 04/13/22 3:18:00 [employer], Duration: 30 day, Stop date: 05/13/22 3:17:00 [employer], 0 melatonin 2021-05 No Notes: [facility] a 2-07 (Same as: l 09:18: Melatonin) Dextrose 2021-05 No 12.5 gm, [facility] 50% Syringe 2- 25 mL, l (D50W) 09:18: Route: [place] 00 IVP, Drug Form: INJ, Dosing Weight 82.727, kg, PRN, PRN Blood Glucose Results, Start date: 04/13/22 3:18:00 [employer], Duration: 30 day, Stop date: 05/13/22 3:17:00 [employer], 0 glucagon 2021-05 No 1 mg, [facility] 06-14 Route: IM, l 09:18: Drug form: [place] 00 PDR/INJ, PRN, Dosing Weight 82.727, kg, PRN Blood Glucose Results, Start date: 04/13/22 3:18:00 [employer], Duration: 30 day, Stop date: 05/13/22 3:17:00 [employer], 0 melatonin 2021-05 No Notes: [facility] a 2-07 (Same as: l 09:18: Melatonin) Lactated 2021-05 No 1,000 mL, Eliecer shannan Ringers IV 2-07 Rate: 75 l 1,000 mL 08:49: ml/hr, [place] 00 Infuse over: 13.3 hr, Route: IV, Dosing Weight 83.182 kg, Total Volume: 1,000, Start date: 04/13/22 2:49:00 [employer], Duration: 30 day, Stop date: 05/13/22 2:49:00 [employer], BSA: 2.06 m2, 0 Lactated 2021-05 No 1,000 mL, Eliecer shannan Ringers IV 2-07 Rate: 75 l 1,000 mL 08:49: ml/hr, [place] 00 Infuse over: 13.3 hr, Route: IV, Dosing Weight 83.182 kg, Total Volume: 1,000, Start date: 04/13/22 2:49:00 [employer], Duration: 30 day, Stop date: 05/13/22 2:49:00 [employer], BSA: 2.06 m2, 0 Lactated 2022-1 No 1,000 mL, Eliecer shannan Ringers IV 2-07 Rate: 75 l 1,000 mL 08:49: ml/hr, [place] 00 Infuse over: 13.3 hr, Route: IV, Dosing Weight 83.182 kg, Total Volume: 1,000, Start date: 04/13/22 2:49:00 [employer], Duration: 30 day, Stop date: 05/13/22 2:49:00 [employer], BSA: 2.06 m2, 0 Lactated 2-1 No 1,000 mL, Eliecer shannan Ringers IV 2-07 Rate: 75 l 1,000 mL 08:49: ml/hr, [place] 00 Infuse over: 13.3 hr, Route: IV, Dosing Weight 83.182 kg, Total Volume: 1,000, Start date: 04/13/22 2:49:00 [employer], Duration: 30 day, Stop date: 05/13/22 2:49:00 [employer], BSA: 2.06 m2, 0 Lactated 2021-1 No 1,000 mL, Eliecer shannan Ringers IV 2-07 Rate: 75 l 1,000 mL 08:49: ml/hr, [place] 00 Infuse over: 13.3 hr, Route: IV, Dosing Weight 83.182 kg, Total Volume: 1,000, Start date: 04/13/22 2:49:00 [employer], Duration: 30 day, Stop date: 05/13/22 2:49:00 [employer], BSA: 2.06 m2, 0 Lactated 2-1 No 1,000 mL, Eliecer shannan Ringers IV 2-07 Rate: 75 l 1,000 mL 08:49: ml/hr, [place] 00 Infuse over: 13.3 hr, Route: IV, Dosing Weight 83.182 kg, Total Volume: 1,000, Start date: 04/13/22 2:49:00 [employer], Duration: 30 day, Stop date: 05/13/22 2:49:00 [employer], BSA: 2.06 m2, 0 Lactated 2-1 No 1,000 mL, Eliecer shannan Ringers IV 2-07 Rate: 75 l 1,000 mL 08:49: ml/hr, [place] 00 Infuse over: 13.3 hr, Route: IV, Dosing Weight 83.182 kg, Total Volume: 1,000, Start date: 04/13/22 2:49:00 [employer], Duration: 30 day, Stop date: 05/13/22 2:49:00 [employer], BSA: 2.06 m2, 0 Lactated 2021-05 No 1,000 mL, Eliecer shannan Ringers IV 06-14 Rate: 75 l 1,000 mL 08:49: ml/hr, [place] Infuse over: 13.3 hr, Route: IV, Dosing Weight 83.182 kg, Total Volume: 1,000, Start date: 04/13/22 2:49:00 [employer], Duration: 30 day, Stop date: 05/13/22 2:49:00 [employer], BSA: 2.06 m2, 0 Valium 2021- No 10 mg, [facility] 2-07 Route: PO, l 08:13: Drug form: [place] 00 TAB, ONCE, Dosing Weight 82.727, kg, Priority: STAT, Start date: 04/13/22 2:13:00 [employer], Stop date: 04/13/22 2:13:00 [employer] Valium 2021-1 No 10 mg, [facility] 2-07 Route: PO, l 08:13: Drug form: [place] 00 TAB, ONCE, Dosing Weight 82.727, kg, Priority: STAT, Start date: 04/13/22 2:13:00 [employer], Stop date: 04/13/22 2:13:00 [employer] Valium 2021-1 No 10 mg, [facility] 2-07 Route: PO, l 08:13: Drug form: [place] 00 TAB, ONCE, Dosing Weight 82.727, kg, Priority: STAT, Start date: 04/13/22 2:13:00 [employer], Stop date: 04/13/22 2:13:00 [employer] Valium 2021-1 No 10 mg, [facility] 2-07 Route: PO, l 08:13: Drug form: [place] 00 TAB, ONCE, Dosing Weight 82.727, kg, Priority: STAT, Start date: 04/13/22 2:13:00 [employer], Stop date: 04/13/22 2:13:00 [employer] Valium 2021-1 No 10 mg, [facility] 2-07 Route: PO, l 08:13: Drug form: [place] 00 TAB, ONCE, Dosing Weight 82.727, kg, Priority: STAT, Start date: 04/13/22 2:13:00 [employer], Stop date: 04/13/22 2:13:00 [employer] Valium 2021-1 No 10 mg, [facility] -07 Route: PO, l 08:13: Drug form: [place] 00 TAB, ONCE, Dosing Weight 82.727, kg, Priority: STAT, Start date: 04/13/22 2:13:00 [employer], Stop date: 04/13/22 2:13:00 [employer] Valium 2021-1 No 10 mg, [facility] - Route: PO, l 08:13: Drug form: [place] 00 TAB, ONCE, Dosing Weight 82.727, kg, Priority: STAT, Start date: 04/13/22 2:13:00 [employer], Stop date: 04/13/22 2:13:00 [employer] Valium 2021-05 No 10 mg, [facility] 06-14 Route: PO, l 08:13: Drug form: [place] 00 TAB, ONCE, Dosing Weight 82.727, kg, Priority: STAT, Start date: 04/13/22 2:13:00 [employer], Stop date: 04/13/22 2:13:00 [employer] acetaminoph 2021-05 No 1,000 mg, M emoria en 06-14 Route: PO, l 06:38: Drug form: [place] 00 TAB, ONCE, Dosing Weight 82.727, kg, Priority: STAT, Start date: 04/13/22 0:38:00 [employer], Stop date: 04/13/22 0:38:00 [employer] Isolyte S 2021-05 No Notes: Memori a PH-7.4 2- (Same as: l (Bolus) IV 06:38: Isolyte S He r[place] 00 PH7.4, Normosol-R PH 7.4, Plasma-Lyt e A ) acetaminoph 2021-05 No 1,000 mg, M emoria en 06-14 Route: PO, l 06:38: Drug form: [place] 00 TAB, ONCE, Dosing Weight 82.727, kg, Priority: STAT, Start date: 04/13/22 0:38:00 [employer], Stop date: 04/13/22 0:38:00 [employer] Isolyte S 2021-05 No Notes: [facility] a PH-7.4 2-07 (Same as: l (Bolus) IV 06:38: Isolyte S [place] 00 PH7.4, Normosol-R PH 7.4, Plasma-Lyt e A ) acetaminoph 2021-05 No 1,000 mg, emoria en 06-14 Route: PO, l 06:38: Drug form: [place] 00 TAB, ONCE, Dosing Weight 82.727, kg, Priority: STAT, Start date: 04/13/22 0:38:00 [employer], Stop date: 04/13/22 0:38:00 [employer] Isolyte S 2021-05 No Notes: [facility] a PH-7.4 2- (Same as: l (Bolus) IV 06:38: Isolyte S [place] 00 PH7.4, Normosol-R PH 7.4, Plasma-Lyt e A ) [facility]oph 2021-05 [facility], l 06:38: Drug form: [place] 00 TAB, ONCE, Dosing Weight 82.727, kg, Priority: STAT, Start date: 04/13/22 0:38:00 [employer], Stop date: 04/13/22 0:38:00 [employer] Isolyte S 2021-05 No Notes: [facility] a PH-7.4 2- (Same as: l (Bolus) IV 06:38: Isolyte S [place] 00 PH7.4, Normosol-R PH 7.4, Plasma-Lyt e A ) acetaminoph 2021-05 No [facility],000 [facility]: [facility], l 06:38: Drug form: [place] 00 TAB, ONCE, Dosing Weight 82.727, kg, Priority: STAT, Start date: 04/13/22 0:38:00 [employer], Stop date: 04/13/22 0:38:00 [employer] Isolyte S 2021-05 No Notes: [facility] a PH-7.4 2-07 (Same as: l (Bolus) IV 06:38: Isolyte S [place] 00 PH7.4, Normosol-R PH 7.4, Plasma-Lyt e A ) acetaminoph 2021-05 No 1,000 mg, emoria en 06-14 Route: PO, l 06:38: Drug form: [place] 00 TAB, ONCE, Dosing Weight 82.727, kg, Priority: STAT, Start date: 04/13/22 0:38:00 [employer], Stop date: 04/13/22 0:38:00 [employer] Isolyte S 2021-05 No Notes: [facility] a PH-7.4 2-07 (Same as: l (Bolus) IV 06:38: Isolyte S [place] 00 PH7.4, Normosol-R PH 7.4, Plasma-Lyt e A ) acetaminoph 2021-05 No 1,000 mg, emoria en 06-14 Route: PO, l 06:38: Drug form: [place] 00 TAB, ONCE, Dosing Weight 82.727, kg, Priority: STAT, Start date: 04/13/22 0:38:00 [employer], Stop date: 04/13/22 0:38:00 [employer] Isolyte S 2021-05 No Notes: [facility] a PH-7.4 2-07 (Same as: l (Bolus) IV 06:38: Isolyte S [place] 00 PH7.4, Normosol-R PH 7.4, Plasma-Lyt e A ) acetaminoph 2021-05 No 1,000 mg, emoria en 06-14 Route: PO, l 06:38: Drug form: [place] 00 TAB, ONCE, Dosing Weight 82.727, kg, Priority: STAT, Start date: 04/13/22 0:38:00 [employer], Stop date: 04/13/22 0:38:00 [employer] Isolyte S 2021-05 No Notes: [facility] a PH-7.4 2-07 (Same as: l (Bolus) IV 06:38: Isolyte S [place] 00 PH7.4, Normosol-R PH 7.4, Plasma-Lyt e A ) Isolyte S 2021-05 No Notes: [facility] a PH-7.4 2-07 (Same as: l (Bolus) IV 06:37: Isolyte S [place] 00 PH7.4, Normosol-R PH 7.4, Plasma-Lyt e A ) Isolyte S 2021-05 No Notes: [facility] a PH-7.4 2-07 (Same as: l (Bolus) IV 06:37: Isolyte Mason Diaz rmann 00 PH7.4, Normosol-R PH 7.4, Plasma-Lyt e A ) Isolyte S 2021-05 No Notes: [facility] a PH-7.4 2-07 (Same as: l ([place]) IV 06:37: Isolyte Mason Diaz rmann 00 PH7.4, Normosol-R PH 7.4, Plasma-Lyt e A ) Isolyte S 2021-05 No Notes: [facility] a PH-7.4 2-07 (Same as: l ([place]) IV 06:37: Isolyte Mason Diaz rmann 00 PH7.4, Normosol-R PH 7.4, Plasma-Lyt e A ) Isolyte S 2021-05 No Notes: [facility] a PH-7.4 2-07 (Same as: l (Bolus) IV 06:37: Isolyte Mason Diaz rmann 00 PH7.4, Normosol-R PH 7.4, Plasma-Lyt e A ) Isolyte S 2021-05 No Notes: [facility] a PH-7.4 2-07 (Same as: l ([place]) IV 06:37: Isolyte Mason Diaz rmann 00 PH7.4, Normosol-R PH 7.4, Plasma-Lyt e A ) Isolyte S 2021-05 No Notes: [facility] a PH-7.4 2-07 (Same as: l (Bolus) IV 06:37: Isolyte Mason Diaz rmann 00 PH7.4, Normosol-R PH 7.4, Plasma-Lyt e A ) Isolyte S 2021-05 No Notes: [facility] a PH-7.4 2-07 (Same as: l (Bolus) IV 06:37: Isolyte Mason Diaz rmann 00 PH7.4, Normosol-R PH 7.4, Plasma-Lyt e A ) ibuprofen 2021-05 No 600 mg, [facility] ia 2-07 Route: PO, l 06:34: Drug form: [place] 00 TAB, ONCE, Dosing Weight 82.727, kg, Priority: STAT, Start date: 04/13/22 0:34:00 [employer], Stop date: 04/13/22 0:34:00 [employer] ibuprofen 2022-1 No 600 mg, [facility] ia 2-07 Route: PO, l 06:34: Drug form: [place] 00 TAB, ONCE, Dosing Weight 82.727, kg, Priority: STAT, Start date: 04/13/22 0:34:00 [employer], Stop date: 04/13/22 0:34:00 [employer] ibuprofen 2022-1 No 600 mg, [facility] 2-07 Route: PO, l 06:34: Drug form: [place] 00 TAB, ONCE, Dosing Weight 82.727, kg, Priority: STAT, Start date: 04/13/22 0:34:00 [employer], Stop date: 04/13/22 0:34:00 [employer] ibuprofen 2022-1 No 600 mg, [facility] 2-07 Route: PO, l 06:34: Drug form: [place] 00 TAB, ONCE, Dosing Weight 82.727, kg, Priority: STAT, Start date: 04/13/22 0:34:00 [employer], Stop date: 04/13/22 0:34:00 [employer] ibuprofen 2022-1 No 600 mg, [facility] 2-07 Route: PO, l 06:34: Drug form: [place] 00 TAB, ONCE, Dosing Weight 82.727, kg, Priority: STAT, Start date: 04/13/22 0:34:00 [employer], Stop date: 04/13/22 0:34:00 [employer] ibuprofen 2022-1 No 600 mg, [facility] 2-07 Route: PO, l 06:34: Drug form: [place] 00 TAB, ONCE, Dosing Weight 82.727, kg, Priority: STAT, Start date: 04/13/22 0:34:00 [employer], Stop date: 04/13/22 0:34:00 [employer] ibuprofen 2022-1 No 600 mg, [facility] 2-07 Route: PO, l 06:34: Drug form: [place] 00 TAB, ONCE, Dosing Weight 82.727, kg, Priority: STAT, Start date: 04/13/22 0:34:00 [employer], Stop date: 04/13/22 0:34:00 [employer] ibuprofen 2022-1 No 600 mg, [facility] 2-07 Route: PO, l 06:34: Drug form: [place] 00 TAB, ONCE, Dosing Weight 82.727, kg, Priority: STAT, Start date: 04/13/22 0:34:00 [employer], Stop date: 04/13/22 0:34:00 [employer] Protonix 2021-0 No Notes: [facility]oria 8-22 Tablet l 18:00: should not [place] 00 be chewed or crushed. (Same as: Protonix) Protonix 2021-0 No Notes: [facility] 8-22 Tablet l 18:00: should not [place] 00 be chewed or crushed. (Same as: Protonix) Protonix 2021-0 No Notes: [facility] 8-22 Tablet l 18:00: should not [place] 00 be chewed or crushed. (Same as: Protonix) Protonix 0 No Notes: [facility] 8-22 Tablet l 18:00: should not [place] 00 be chewed or crushed. (Same as: Protonix) Protonix 2021-0 No Notes: [facility] 8-22 Tablet l 18:00: should not [place] 00 be chewed or crushed. (Same as: Protonix) Protonix 2021-0 No Notes: [facility] 8-22 Tablet l 18:00: should not [place] 00 be chewed or crushed. (Same as: Protonix) Protonix 2021-0 No Notes: [facility] 8-22 Tablet l 18:00: should not [place] 00 be chewed or crushed. (Same as: Protonix) Protonix 2021-0 No Notes: [facility] 8-22 Tablet l 18:00: should not [place] 00 be chewed or crushed. (Same as: Protonix) Protonix 2021-0 No Notes: [facility] 8-22 Tablet l 18:00: should not [place] 00 be chewed or crushed. (Same as: Protonix) Protonix 2021-0 No Notes: [facility] 8-22 Tablet l 18:00: should not [place] 00 be chewed or crushed. (Same as: Protonix) Protonix 2021-0 No Notes: [facility] 8-22 Tablet l 18:00: should not [place] 00 be chewed or crushed. (Same as: Protonix) Protonix 2021-0 No Notes: [facility] 8-22 Tablet l 18:00: should not [place] 00 be chewed or crushed. (Same as: Protonix) omeprazole 2022-0 No 20 mg, [facility] ia 8-22 Route: PO, l 15:20: Daily, Dosing Weight 79.545, kg, Start date: 12/27/21 10:20:00 CDT, Duration: 30 day, Stop date: 01/26/22 9:00:00 CDT omeprazole 2022-0 No 20 mg, [facility] ia 8-22 Route: PO, l 15:20: Daily, Dosing Weight 79.545, kg, Start date: 12/27/21 10:20:00 CDT, Duration: 30 day, Stop date: 01/26/22 9:00:00 CDT omeprazole 2022-0 No 20 mg, [facility] 8- Route: PO, l 15:20: Daily, Dosing Weight 79.545, kg, Start date: 12/27/21 10:20:00 CDT, Duration: 30 day, Stop date: 01/26/22 9:00:00 CDT omeprazole 2022-0 No 20 mg, [facility] 8- Route: PO, l 15:20: Daily, Dosing Weight 79.545, kg, Start date: 12/27/21 10:20:00 CDT, Duration: 30 day, Stop date: 01/26/22 9:00:00 CDT omeprazole 2022-0 No 20 mg, [facility] 8-22 Route: PO, l 15:20: Daily, Dosing Weight 79.545, kg, Start date: 12/27/21 10:20:00 CDT, Duration: 30 day, Stop date: 01/26/22 9:00:00 CDT omeprazole 2022-0 No 20 mg, [facility] 8-22 Route: PO, l 15:20: Daily, Dosing Weight 79.545, kg, Start date: 12/27/21 10:20:00 CDT, Duration: 30 day, Stop date: 01/26/22 9:00:00 CDT omeprazole 2022-0 No 20 mg, [facility] 8-22 Route: PO, l 15:20: Daily, Dosing Weight 79.545, kg, Start date: 12/27/21 10:20:00 CDT, Duration: 30 day, Stop date: 01/26/22 9:00:00 CDT omeprazole 2022-0 No 20 mg, [facility] 8-22 Route: PO, l 15:20: Daily, Dosing Weight 79.545, kg, Start date: 12/27/21 10:20:00 CDT, Duration: 30 day, Stop date: 01/26/22 9:00:00 CDT omeprazole 2022-0 No 20 mg, [facility] 8-22 Route: PO, l 15:20: Daily, Dosing Weight 79.545, kg, Start date: 12/27/21 10:20:00 CDT, Duration: 30 day, Stop date: 01/26/22 9:00:00 CDT omeprazole 2022-0 No 20 mg, [facility] 8-22 Route: PO, l 15:20: Daily, Dosing Weight 79.545, kg, Start date: 12/27/21 10:20:00 CDT, Duration: 30 day, Stop date: 01/26/22 9:00:00 CDT omeprazole 2022-0 No 20 mg, [facility] 8-22 Route: PO, l 15:20: Daily, Dosing Weight 79.545, kg, Start date: 12/27/21 10:20:00 CDT, Duration: 30 day, Stop date: 01/26/22 9:00:00 CDT omeprazole 2022-0 No 20 mg, [facility] 8-22 Route: PO, l 15:20: Daily, Dosing Weight 79.545, kg, Start date: 12/27/21 10:20:00 CDT, Duration: 30 day, Stop date: 01/26/22 9:00:00 CDT hydrOXYzine 2022-0 Yes Notes: Eliecer shannan 8-22 (Same as: l 03:01: Atarax) Avoid alcohol. hydrOXYzine 2022-0 Yes Notes: Eliecer shannan 8-22 (Same as: l 03:01: Atarax) Avoid alcohol. hydrOXYzine 2022-0 Yes Notes: Eliecer shannan 8-22 (Same as: l 03:01: Atarax) [place] 00 Avoid alcohol. hydrOXYzine 2021-0 Yes Notes: Eliecer shannan 8-22 (Same as: l 03:01: Atarax) [place] 00 Avoid alcohol. hydrOXYzine 0 Yes Notes: Eliecer shannan 8-22 (Same as: l 03:01: Atarax) [place] Avoid alcohol. hydrOXYzine Yes Notes: Eliecer shannan 8-22 (Same as: l 03:01: Atarax) [place] 00 Avoid alcohol. hydrOXYzine 0 Yes Notes: Eliecer shannan 8-22 (Same as: l 03:01: Atarax) [place] Avoid alcohol. hydrOXYzine Yes Notes: Eliecer shannan 8-22 (Same as: l 03:01: Atarax) [place] Avoid alcohol. hydrOXYzine Yes Notes: Eliecer shannan 8-22 (Same as: l 03:01: Atarax) [place] Avoid alcohol. hydrOXYzine Yes Notes: Eliecer shannan 8-22 (Same as: l 03:01: Atarax) [place] 00 Avoid alcohol. hydrOXYzine 2021-0 Yes Notes: Eliecer shannan 8-22 (Same as: l 03:01: Atarax) [place] 00 Avoid alcohol. hydrOXYzine 0 Yes Notes: Eliecer shannan 8-22 (Same as: l 03:01: Atarax) [place] 00 Avoid alcohol. hydrOXYzine No Notes: Eliecer shannan hydrochlori 8-21 (Same as: l de 50 mg 20:32: Atarax) [place] n oral tablet 00 Avoid alcohol. hydrOXYzine No Notes: Eliecer shannan hydrochlori 8-21 (Same as: l de 50 mg 20:32: Atarax) [place] oral tablet 00 Avoid alcohol. hydrOXYzine No Notes: Eliecer shannan hydrochlori 8-21 (Same as: l de 50 mg 20:32: Atarax) [place] oral tablet 00 Avoid alcohol. hydrOXYzine No Notes: Eliecer shannan hydrochlori 8-21 (Same as: l de 50 mg 20:32: Atarax) [place] oral tablet 00 Avoid alcohol. hydrOXYzine No Notes: Eliecer shannan hydrochlori 8-21 (Same as: l de 50 mg 20:32: Atarax) [place] oral tablet 00 Avoid alcohol. hydrOXYzine No Notes: Eliecer shannan hydrochlori 8-21 (Same as: l de 50 mg 20:32: Atarax) [place] oral tablet 00 Avoid alcohol. hydrOXYzine No Notes: Eliecer shannan hydrochlori 8-21 (Same as: l de 50 mg 20:32: Atarax) [place] oral tablet 00 Avoid alcohol. hydrOXYzine No Notes: Eliecer shannan hydrochlori 8-21 (Same as: l de 50 mg 20:32: Atarax) [place] oral tablet 00 Avoid alcohol. hydrOXYzine No Notes: Eliecer shannan hydrochlori 8-21 (Same as: l de 50 mg 20:32: Atarax) [place] oral tablet 00 Avoid alcohol. hydrOXYzine No Notes: Eliecer shannan hydrochlori 8-21 (Same as: l de 50 mg 20:32: Atarax) [place] oral tablet 00 Avoid alcohol. hydrOXYzine No Notes: Eliecer shannan hydrochlori 8-21 (Same as: l de 50 mg 20:32: Atarax) [place] oral tablet 00 Avoid alcohol. hydrOXYzine No Notes: Eliecer shannan hydrochlori 8-21 (Same as: l de 50 mg 20:32: Atarax) [place] oral tablet 00 Avoid alcohol. Lactated No 1,000 mL, Eliecer shannan [place] 8-21 Infuse l (Bolus) IV 15:06: Over: 1 Herm erinn 00 hr, Route: IV, ONCE, Priority: STAT, Dosing Weight 79.545 kg, Start date: 12/26/21 10:06:00 CDT, Stop date: 12/26/21 10:06:00 CDT Lactated No 1,000 mL, Eliecer shannan [place] 8-21 Infuse l (Bolus) IV 15:06: Over: 1 Herm erinn 00 hr, Route: IV, ONCE, Priority: STAT, Dosing Weight 79.545 kg, Start date: 12/26/21 10:06:00 CDT, Stop date: 12/26/21 10:06:00 CDT Lactated 2022-0 No 1,000 mL, Eliecer shannan Ringers 8-21 Infuse l (Bolus) IV 15:06: Over: 1 Herm erinn 00 hr, Route: IV, ONCE, Priority: STAT, Dosing Weight 79.545 kg, Start date: 12/26/21 10:06:00 CDT, Stop date: 12/26/21 10:06:00 CDT Lactated 2022-0 No 1,000 mL, Eliecer shannan Ringers 8-21 Infuse l (Bolus) IV 15:06: Over: 1 Herm erinn 00 hr, Route: IV, ONCE, Priority: STAT, Dosing Weight 79.545 kg, Start date: 12/26/21 10:06:00 CDT, Stop date: 12/26/21 10:06:00 CDT Lactated 2022-0 No 1,000 mL, Eliecer shannan Ringers 8-21 Infuse l (Bolus) IV 15:06: Over: 1 Herm erinn 00 hr, Route: IV, ONCE, Priority: STAT, Dosing Weight 79.545 kg, Start date: 12/26/21 10:06:00 CDT, Stop date: 12/26/21 10:06:00 CDT Lactated 2022-0 No 1,000 mL, Eliecer shannan Ringers 8-21 Infuse l (Bolus) IV 15:06: Over: 1 Herm erinn 00 hr, Route: IV, ONCE, Priority: STAT, Dosing Weight 79.545 kg, Start date: 12/26/21 10:06:00 CDT, Stop date: 12/26/21 10:06:00 CDT Lactated 2022-0 No 1,000 mL, Eliecer shannan Ringers 8-21 Infuse l (Bolus) IV 15:06: Over: 1 Herm erinn 00 hr, Route: IV, ONCE, Priority: STAT, Dosing Weight 79.545 kg, Start date: 12/26/21 10:06:00 CDT, Stop date: 12/26/21 10:06:00 CDT Lactated 2022-0 No 1,000 mL, Eliecer shannan Ringers 8-21 Infuse l (Bolus) IV 15:06: Over: 1 Herm erinn 00 hr, Route: IV, ONCE, Priority: STAT, Dosing Weight 79.545 kg, Start date: 12/26/21 10:06:00 CDT, Stop date: 12/26/21 10:06:00 CDT Lactated 2022-0 No 1,000 mL, Eliecer shannan Ringers 8-21 Infuse l (Bolus) IV 15:06: Over: 1 Herm erinn 00 hr, Route: IV, ONCE, Priority: STAT, Dosing Weight 79.545 kg, Start date: 12/26/21 10:06:00 CDT, Stop date: 12/26/21 10:06:00 CDT Lactated 2022-0 No 1,000 mL, Eliecer shannan Ringers 8-21 Infuse l (Bolus) IV 15:06: Over: 1 Herm erinn 00 hr, Route: IV, ONCE, Priority: STAT, Dosing Weight 79.545 kg, Start date: 12/26/21 10:06:00 CDT, Stop date: 12/26/21 10:06:00 CDT Lactated 2022-0 No 1,000 mL, Eliecer shannan Ringers 8-21 Infuse l (Bolus) IV 15:06: Over: 1 Herm erinn 00 hr, Route: IV, ONCE, Priority: STAT, Dosing Weight 79.545 kg, Start date: 12/26/21 10:06:00 CDT, Stop date: 12/26/21 10:06:00 CDT Lactated 2022-0 No 1,000 mL, Eliecer shannan Ringers 8-21 Infuse l (Bolus) IV 15:06: Over: 1 Herm erinn 00 hr, Route: IV, ONCE, Priority: STAT, Dosing Weight 79.545 kg, Start date: 12/26/21 10:06:00 CDT, Stop date: 12/26/21 10:06:00 CDT QUEtiapine 2021-0 2021- No 200mg QD Take 1 [facility] (SEROqueL) 6- 07-[address] 200 MG 00:00: 04:59 (200 mg [facility]osp[facility] tablet 00 :00 total) by l mouth nightly for 30 days. famotidine 2020-2020- No 20mg QD Take 1 Meth [facility] (PEPCID) 20 - 10-06 tablet (20 s t MG tablet 00:00: 04:59 mg total) [facility] 00 :00 by mouth l daily for 30 days. dicyclomine 2020-2020- No 20mg Q.5D Take 1 [facility] (BENTYL) 20 9- 09-16 tablet (20 s t mg tablet 00:00: 04:59 mg total) [facility] 00 :00 by mouth 2 l (two) times a day for 10 days. DULoxetine 2020-2020- No 30mg QD Take 1 [facility] (Cymbalta) 12-29-[address] 30 MG 00:00: 04:59 (30 mg [facility] capsule 00 :00 total) by l mouth daily for 30 days. DULoxetine 2020-2020- No 30mg QD Take 1 Meth le[facility] (Cymbalta) 12-[address] 30 MG 00:00: 00:00 (30 mg [facility] capsule 00 :00 total) by l mouth daily for 30 days. clonAZEPAM 2020-0 Yes 1mg Q.5D Take 1 mg [facility] (KlonoPIN) 8-[address] 1 MG tablet 02:15: (two) Hospi ta 54 times a l day as needed for seizures. metoprolol 2020-0 Yes 12.5mg Q.5D Take 12.5 [facility] tartrate 8-[address] (LOPRESSOR) 02:15: mouth 2 Hos ofelia 25 mg 54 (two) l tablet times a day. clonAZEPAM 2020-0 Yes 1mg Q.5D Take 1 mg [facility] (KlonoPIN) 8-[address] 1 MG tablet 21:15: (two) Hospi ta 54 times a l day as needed for seizures. metoprolol 2020-0 Yes 12.5mg Q.5D Take 12.5 [facility] tartrate 8-[address] (LOPRESSOR) 21:15: mouth 2 Hos ofelia 25 mg 54 (two) l tablet times a day. cephALEXin 2020-2020- No Cellulitis 500mg Take 1 [facility] (KEFLEX) 7 08-06 of left capsule by [facility] 500 mg 00:00: 23:59 lower mouth 4 capsule 00 :00 extremity times daily for 7 days. cephALEXin 2020-2020- No Cellulitis 500mg Take 1 [facility] (KEFLEX) 12-04 08-06 of left capsule by [facility]alth 500 mg 00:00: 23:59 lower mouth 4 capsule 00 :00 extremity times daily for 7 days. chlorproMAZ Yes Major 25mg Q.5D Take 1 Asaf ris INE 7-22 depressive tablet by [facility] (THORAZINE) 00:00: disorder, mouth 2 25 mg 00 single times tablet episode daily. with anxious distress chlorproMAZ Yes Major 25mg Q.5D Take 1 Asaf ris INE 7-22 depressive tablet by [facility] (THORAZINE) 00:00: disorder, mouth 2 25 mg 00 single times tablet episode daily. with anxious distress nystatin 2020- No 1{tbl} Take 1 Rahul is 500,000 11-25- tablet by Health unit tablet 16:28: 00:00 mouth 32 :00 every morning. metoprolol 2020- No 12.5mg Take 12.5 [facility] tartrate 11-25-21 mg by Health (LOPRESSOR) 16:28: 00:00 mouth. 25 mg 32 :00 tablet ALPRAZolam 2020- No 1mg Q.5D Take 1 mg H arris (XANAX) 1 11-25- by mouth 2 [facility] mg tablet 16:28: 00:00 (two) 32 :00 times a day. nystatin 2020- No 1{tbl} Take 1 Rahul is 500,000 -25 11- tablet by Health unit tablet 16:28: 00:00 mouth 32 :00 every morning. metoprolol 2020- No 12.5mg Take 12.5 [facility] tartrate 11-25-21 mg by Health (LOPRESSOR) 16:28: 00:00 mouth. 25 mg 32 :00 tablet ALPRAZolam 2020- No 1mg Q.5D Take 1 mg H arris (XANAX) 1 11-25-21 by mouth 2 [facility] mg tablet 16:28: 00:00 (two) 32 :00 times a day. hydrOXYzine Yes Major 50mg Take 1 Asaf ris (ATARAX) 50 7-21 depressive tablet by Health mg tablet 00:00: disorder, mouth 00 single every 4 episode hours as with needed for anxious Anxiety. distress amitriptyli Yes Major 50mg Take 1 Asaf ris ne (ELAVIL) 7-21 depressive tablet by Health 50 mg 00:00: disorder, mouth tablet 00 single nightly at episode bedtime as with needed for anxious Sleep. distress chlorproMAZ Yes Major 100mg Take 1 Soriano rris INE 7-21 depressive tablet by [facility] (THORAZINE) 00:00: disorder, mouth at 100 mg 00 single bedtime tablet episode nightly. with anxious distress hydrOXYzine Yes Major 50mg Take 1 Asaf ris (ATARAX) 50 - depressive tablet by Health mg tablet 00:00: disorder, mouth 00 single every 4 episode hours as with needed for anxious Anxiety. distress amitriptyli Yes Major 50mg Take 1 Asaf ris ne (ELAVIL) 7-21 depressive tablet by Health 50 mg 00:00: disorder, mouth tablet 00 single nightly at episode bedtime as with needed for anxious Sleep. distress chlorproMAZ Yes Major 100mg Take 1 Soriano rris INE 7-21 depressive tablet by [facility] (THORAZINE) 00:00: disorder, mouth at 100 mg 00 single bedtime tablet episode nightly. with anxious distress mirtazapine 2020-2020- No Depression, 15mg Take 1 [facility] (REMERON) 10-29 unspecified tablet by [facility] 15 mg 00:00: 00:00 depression mouth at tablet 00 :00 type bedtime nightly Half pill at bed time for three days and then one pill at bed time.. mirtazapine 2020-2020- No Depression, 15mg Take 1 Manning (REMERON) 10-29 unspecified tablet by [facility] 15 mg 00:00: 00:00 depression mouth at tablet 00 :00 type bedtime nightly Half pill at bed time for three days and then one pill at bed time.. hydrOXYzine 2020-0 2020- No 50mg Take 1 Asaf ris (ATARAX) 50 10-28 tablet by alth mg tablet 00:00: 00:00 mouth 2 00 :00 times daily as needed for up to 90 days for Anxiety. hydrOXYzine 2020-0 2020- No 50mg Take 1 Asaf ris (ATARAX) 50 10-28 07-21 tablet by alth mg tablet 00:00: 00:00 mouth 2 00 :00 times daily as needed for up to 90 days for Anxiety. sertraline 2020- No 50mg QD Take 1 Rahul is (ZOLOFT) 50 10-28-24 tablet by alth mg tablet 00:00: 00:00 mouth 00 :00 daily. sertraline 2020- No 50mg QD Take 1 Rahul is (ZOLOFT) 50 10-2824 tablet by alth mg tablet 00:00: 00:00 mouth 00 :00 daily. clonazePAM 2020- No 1mg Take 1 mg H arris (KLONOPIN) 10-15 by mouth 2 He alth 1 mg tablet 00:08: 00:00 times 45 :00 daily as needed for Anxiety. clonazePAM 2020- No 1mg Take 1 mg H arris (KLONOPIN) 10-15-10 by mouth. [facility]a [facility] 1 mg tablet 00:08: 00:00 45 :00 clonazePAM 2020-2020- No 1mg Take 1 mg H arris (KLONOPIN) 10-15-10 by mouth 2 He alth 1 mg tablet 00:08: 00:00 times 45 :00 daily as needed for Anxiety. clonazePAM 2020- No 1mg Take 1 mg H arris (KLONOPIN) 10-15-10 by mouth. [facility]a [facility] 1 mg tablet 00:08: 00:00 45 :00 traZODone 2020- No Insomnia, 50mg Take 1 [facility] (DESYREL) 10-15 unspecified tablet by Health 50 mg 00:00: 00:00 type mouth at tablet 00 :00 bedtime nightly. traZODone 2020-2020- No Insomnia, 50mg Take 1 [facility] (DESYREL) -02 10- unspecified tablet by Health 50 mg 00:00: 00:00 type mouth at tablet 00 :00 bedtime nightly. sertraline 2020- No Anxiety 50mg QD Take 1 H arris (ZOLOFT) 50 -30 - disorder, tablet by Health mg tablet 00:00: 00:00 unspecified mouth 00 :00 type daily. sertraline 2020- No Anxiety 50mg QD Take 1 H arris (ZOLOFT) 50 10-04 disorder, tablet by Health mg tablet 00:00: 00:00 unspecified mouth 00 :00 type daily. QUEtiapine 2020- No Mood Take half H arris (SEROQUEL) 10-02 disorder tab by He alth 25 mg 00:00: 00:00 mouth tablet 00 :00 twice a day as needed for anxiety. Take 1 tab by mouth nightly. May take additional tab by mouth nightly as needed for sleep. Do not operate heavy machinery if sedated during the day.. QUEtiapine 2020- No Mood Take half H arris (SEROQUEL) 10-02 disorder tab by He alth 25 mg 00:00: 00:00 mouth tablet 00 :00 twice a day as needed for anxiety. Take 1 tab by mouth nightly. May take additional tab by mouth nightly as needed for sleep. Do not operate heavy machinery if sedated during the day.. cephalexin cephalexin Yes 500mg [facility]xD [facility] (LUF/LI V/SA) cephalexin cephalexin Yes 500mg 3xD orally [facility] 500 mg 500 mg every 8 [facility] capsule capsule hours [facility] (LUF/LI V/SA) Vital Signs Vital Name Observation Time Observation Value Comments Source Height 2021-09-21 12:56:00 182.88 CM Weight 2021-09-21 12:56:00 71 KG Height 2021-08-19 07:25:00 182.88 CM Weight 2021-08-19 07:25:00 78.18 KG Height 2021-06-26 15:08:00 182.88 CM Weight 2021-06-26 15:08:00 178 KG Height/Length 2021-05-25 12:25:52 185 cm Measured Height/Length 2021-05-25 12:23:22 185 cm Measured Height/Length 2021-05-25 12:23:16 185 cm Measured Height/Length 2021-05-25 12:23:09 185 cm Measured Height/Length 2020-01-21 10:33:37 Measured Height/Length 2021-05-25 12:25:52 183 cm Measured Height/Length 2021-05-25 12:21:17 183 cm Measured Height/Length 2021-05-25 12:21:15 183 cm Measured Height/Length 2020-01-19 17:43:00 Measured Height/Length 2021-05-25 09:51:09 184 cm Measured Height/Length 2021-05-25 09:41:51 184 cm Measured Height/Length 2021-05-25 09:41:50 184 cm Measured Height/Length 2019-07-29 22:39:05 Measured Height/Length 2021-05-25 09:34:26 188 cm Measured Weight Dosing 2021-05-25 09:34:26 83.90 kg Height/Length 2021-05-25 09:33:56 183 cm Measured Height/Length 2021-05-25 09:33:48 183 cm Measured Height/Length 2019-07-20 09:15:06 Measured Systolic blood 2022-08-27 03:52:18 115 mm[Hg] [facility] Diastolic blood 2022-08-27 03:52:18 71 mm[Hg] [facility] pressure [facility] Heart rate 2022-08-27 03:52:18 84 /min [facility] Body temperature 2022-08-27 03:52:18 36.39 Jeanette [facility] Respiratory rate 2022-08-27 03:52:18 18 /min [facility] Oxygen saturation in 2022-08-27 03:52:18 99 /min [facility] Arterial blood by Hospital Pulse oximetry Height 2022-06-18 08:00:00 6 [ft_i] [facility] BMI Calculated 2022-06-18 08:00:00 [facility] Weight 2022-06-18 08:00:00 [facility] Systolic (mm Hg) 2022-06-18 08:00:00 [facility] Diastolic (mm Hg) 2022-06-18 08:00:00 [facility] Heart Rate 2022-06-18 08:00:00 [facility] Temperature Oral (F) 2022-06-18 08:00:00 97.6 F [facility] Body height 2022-05-27 13:01:00 182[facility]9 [facility] weight 2022-05-27 13:01:[address] [facility] BMI 2022-05-27 13:01:00 24.68 kg/m2 [facility] Systolic (mm Hg) 2022-05-05 21:05:00 Eliecer rial [facility] Diastolic (mm Hg) 2022-05-05 21:05:00 [facility] Temperature Oral (F) 2022-05-05 21:05:00 97.7 F [facility] Respitory Rate 2022-05-05 21:05:00 [facility] Heart Rate 2022-05-05 09:00:00 [facility] Respitory Rate 2022-05-05 09:00:00 [facility] Systolic (mm Hg) 2022-05-05 09:00:00 [facility] Diastolic (mm Hg) 2022-05-05 09:00:00 [facility] Respitory Rate 2022-05-05 05:00:00 [facility] Systolic (mm Hg) 2022-05-05 05:00:00 [facility] Diastolic (mm Hg) 2022-05-05 05:00:00 [facility] Heart Rate 2022-05-05 05:00:00 [facility] Heart Rate 2022-05-05 01:00:00 [facility] Temperature Oral (F) 2022-05-04 11:55:00 97.9 F [facility] Temperature Oral (F) 2022-05-04 08:17:00 98.3 F [facility] Height 2022-05-04 03:06:00 182.88 cm [facility] BMI Calculated 2022-05-04 03:06:00 [facility] Weight 2022-05-04 03:06:00 [facility] Systolic (mm Hg) 2022-04-21 23:06:00 Eliecer rial [facility] Diastolic (mm Hg) 2022-04-21 23:06:00 [facility] Temperature Oral (F) 2022-04-21 23:06:00 99 F [facility] Heart Rate 2022-04-21 23:06:00 [facility] Systolic (mm Hg) 2022-04-21 18:09:00 [facility] Diastolic (mm Hg) 2022-04-21 18:09:00 [facility] Temperature Oral (F) 2022-04-21 18:09:00 97 F [facility] Heart Rate 2022-04-21 14:05:07 [facility] Respitory Rate 2022-04-21 14:05:07 [facility] Temperature Oral (F) 2022-04-21 14:04:38 97.8 F [facility] Systolic (mm Hg) 2022-04-21 14:04:37 [facility] Diastolic (mm Hg) 2022-04-21 14:04:37 [facility] Heart Rate 2022-04-21 14:04:37 [facility] Respitory Rate 2022-04-21 10:44:16 [facility] Temperature Oral (F) 2022-04-21 10:43:52 97.5 F [facility] Respitory Rate 2022-04-21 06:17:39 [facility] Height 2022-04-13 17:39:00 182.88 cm [facility] Weight 2022-04-13 17:39:00 [facility] BMI Calculated 2022-04-13 17:39:00 [facility] Height 2022-04-13 02:51:00 182.88 cm [facility] BMI Calculated 2022-04-13 02:51:00 [facility] Weight 2022-04-13 02:51:00 [facility] Systolic (mm Hg) 2022-02-10 05:08:00 [facility] Diastolic (mm Hg) 2022-02-10 05:08:00 [facility] Heart Rate 2022-02-10 05:08:00 [facility] Respitory Rate 2022-02-10 05:08:00 [facility] Temperature Oral (F) 2022-02-10 05:08:00 99.1 F [facility] Temperature Oral (F) 2021-12-27 16:47:00 97.8 F [facility] Heart Rate 2021-12-27 16:47:00 [facility] Systolic (mm Hg) 2021-12-27 16:47:00 Eliecer rial [facility] Diastolic (mm Hg) 2021-12-27 16:47:00 [facility] Temperature Oral (F) 2021-12-27 12:46:00 97.9 F [facility] Heart Rate 2021-12-27 12:46:00 [facility] Systolic (mm Hg) 2021-12-27 12:46:00 [facility] Diastolic (mm Hg) 2021-12-27 12:46:00 [facility] Heart Rate 2021-12-27 07:39:37 [facility] Temperature Oral (F) 2021-12-27 07:39:13 98.9 F [facility] Systolic (mm Hg) 2021-12-27 07:38:55 Eliecer rial [facility] Diastolic (mm Hg) 2021-12-27 07:38:55 [facility] Heart Rate 2021-12-27 07:38:55 [facility] Temperature Oral (F) 2021-12-27 02:00:00 98.4 F [facility] Heart Rate 2021-12-27 02:00:00 [facility] Respitory Rate 2021-12-27 02:00:00 [facility] Systolic (mm Hg) 2021-12-27 02:00:00 [facility] Diastolic (mm Hg) 2021-12-27 02:00:00 [facility] Temperature Oral (F) 2021-12-26 22:08:00 98.2 F [facility] Respitory Rate 2021-12-26 22:08:00 [facility] Systolic (mm Hg) 2021-12-26 22:08:00 [facility] Diastolic (mm Hg) 2021-12-26 22:08:00 [facility] Height 2021-12-26 14:39:00 182.88 cm [facility] BMI Calculated 2021-12-26 14:39:00 [facility] Weight 2021-12-26 14:39:00 [facility] Respitory Rate 2021-12-26 14:39:00 [facility] Height 2021-10-27 20:20:00 170.18 cm [facility] BMI Calculated 2021-10-27 20:20:00 [facility] Weight 2021-10-27 20:20:00 [facility] Systolic (mm Hg) 2021-10-27 20:20:00 [facility] Diastolic (mm Hg) 2021-10-27 20:20:00 [facility] Heart Rate 2021-10-27 20:20:00 [facility] Respitory Rate 2021-10-27 20:20:00 [facility] Temperature Oral (F) 2021-10-27 20:20:00 [facility] 2021-09-21 12:56:00 97.9 [degF] [facility] (LUF/ALLISON/SA) Pulse Rate 2021-09-21 12:56:00 90 /min [facility] (LUF/ALLISON/SA) Respiratory Rate 2021-09-21 12:56:00 18 /min [facility] (LUF/ALLISON/SA) O2% BldC Oximetry 2021-09-21 12:56:00 98 % [facility] (LUF/ALLISON/SA) BP Systolic 2021-09-21 12:56:00 116 mm[Hg] [facility] (LUF/ALLISON/SA) BP Diastolic 2021-09-21 12:56:00 70 mm[Hg] [facility] (LUF/ALLISON/SA) Height 2021-09-21 12:56:00 72 [in_i] [facility] (F/ALLISON/SA) Weight 2021-09-21 12:56:00 71 kg [facility] (LUF/ALLISON/SA) BMI (Body Mass 2021-09-21 12:56:00 21.4 kg/m2 [facility]) [facility] (LUF/ALLISON/SA) Body Temperature 2021-08-19 07:25:00 98.4 [degF] [facility] (LUF/ALLISON/SA) Pulse Rate 2021-08-19 07:25:00 79 /min [facility] (LUF/ALLISON/SA) Respiratory Rate 2021-08-19 07:25:00 16 /min [facility] (LUF/ALLISON/SA) O2% BldC Oximetry 2021-08-19 07:25:00 100 % [facility] (LUF/ALLISON/SA) BP Systolic 2021-08-19 07:25:00 141 mm[Hg] [facility] (LUF/ALLISON/SA) BP Diastolic 2021-08-19 07:25:00 84 mm[Hg] [facility] (LUF/ALLISON/SA) Height 2021-08-19 07:25:00 72 [in_i] [facility] (LUF/ALLISON/SA) Weight 2021-08-19 07:25:00 78.18 kg [facility] (LUF/ALLISON/SA) BMI (Body Mass 2021-08-19 07:25:00 23.6 kg/m2 [facility]) [facility] (LUF/ALLISON/SA) Body Temperature 2021-06-26 17:00:00 98.4 [degF] [facility] (LUF/ALLISON/SA) Pulse Rate 2021-06-26 17:00:00 86 /min [facility] (LUF/ALLISON/SA) Respiratory Rate 2021-06-26 17:00:00 18 /min [facility] (F/ALLISON/SA) O2% BldC Oximetry 2021-06-26 17:00:00 99 % [facility] (LUF/ALLISON/SA) BP Systolic 2021-06-26 17:00:00 124 mm[Hg] [facility] (LUF/ALLISON/SA) BP Diastolic 2021-06-26 17:00:00 61 mm[Hg] [facility] (LUF/ALLISON/SA) Height 2021-06-26 15:08:00 72 [in_i] [facility] (LUF/ALLISON/SA) Weight 2021-06-26 15:08:00 178 kg [facility] (LUF/ALLISON/SA) BMI (Body Mass 2021-06-26 15:08:00 53.7 kg/m2 [facility]) [facility] (LUF/ALLISON/SA) Systolic blood 2021-01-10 14:00:00 116 mm[Hg] [facility] Diastolic blood 2021-01-10 14:00:00 74 mm[Hg] [facility] pressure [facility] Heart rate 2021-01-10 14:00:00 86 /min [facility] Body temperature 2021-01-10 14:00:00 36.22 Jeanette [facility] Respiratory rate 2021-01-10 14:00:00 16 /min [facility] Oxygen saturation in 2021-01-10 14:00:00 98 /min [facility] by [facility] Pulse oximetry Body height 2021-01-10 11:58:[address] [facility] Body weight 2021-01-10 11:58:[address] [facility] BMI 2021-01-10 11:58:00 21.02 kg/m2 [facility] Systolic blood 2020-12-04 01:07:00 134 mm[Hg] [facility] pressure Diastolic blood 2020-12-04 01:07:00 77 mm[Hg] [facility] Health pressure Heart rate 2020-12-04 01:07:00 89 /min [facility] Body temperature 2020-12-04 01:07:00 37.17 Jeanette [facility] Respiratory rate 2020-12-04 01:07:00 19 /min [facility] Oxygen saturation in 2020-12-04 01:07:00 100 /min [facility] Arterial blood by Pulse oximetry Body height 2020-12-03 14:31:00 182.9 cm [facility] Body weight 2020-12-03 14:31:00 68.04 kg [facility] BMI 2020-12-03 14:31:00 20.34 kg/m2 [facility] 02 Sat by Pulse 2020-07-27 11:56:00 99 /min Oximetry Body Mass Index 2020-07-27 11:56:00 21.0 Height 2020-07-27 11:56:00 182.88\\S\\72 Pulse Rate 2020-07-27 11:56:00 90 /min Respiratory Rate 2020-07-27 11:56:00 18 /min Temperature 2020-07-27 11:56:00 36.9\\S\\98.4 Weight 2020-07-27 11:56:00 83373.817\\S\\2480 Weight Measurement 2020-07-27 11:56:00 Estimated by Staff Method 02 Sat by Pulse 2020-07-25 06:36:24 99 /min Oximetry Body Mass Index 2020-07-25 06:36:24 21.0 Height 2020-07-25 06:36:24 182.88\\S\\72 Pulse Rate 2020-07-25 06:36:24 90 /min Respiratory Rate 2020-07-25 06:36:24 18 /min Temperature 2020-07-25 06:36:24 36.9\\S\\98.4 Weight 2020-07-25 06:36:24 41784.817\\S\\2480 Weight Measurement 2020-07-25 06:36:24 Estimated by Staff Method 02 Sat by Pulse 2020-07-25 04:36:44 99 /min Oximetry Body Mass Index 2020-07-25 04:36:44 21.0 Height 2020-07-25 04:36:44 182.88\\S\\72 Pulse Rate 2020-07-25 04:36:44 90 /min Respiratory Rate 2020-07-25 04:36:44 18 /min Temperature 2020-07-25 04:36:44 36.9\\S\\98.4 Weight 2020-07-25 04:36:44 66594.817\\S\\2480 Weight Measurement 2020-07-25 04:36:44 Estimated by Staff Method 02 Sat by Pulse 2020-07-25 04:35:42 99 /min Oximetry Body Mass Index 2020-07-25 04:35:42 21.0 Height 2020-07-25 04:35:42 182.88\\S\\72 Pulse Rate 2020-07-25 04:35:42 90 /min Respiratory Rate 2020-07-25 04:35:42 18 /min Temperature 2020-07-25 04:35:42 36.9\\S\\98.4 Weight 2020-07-25 04:35:42 63515.817\\S\\2480 Weight Measurement 2020-07-25 04:35:42 Estimated by Staff Method 02 Sat by Pulse 2020-07-25 04:22:59 99 /min Oximetry Body Mass Index 2020-07-25 04:22:59 21.0 Height 2020-07-25 04:22:59 182.88\\S\\72 Pulse Rate 2020-07-25 04:22:59 90 /min Respiratory Rate 2020-07-25 04:22:59 18 /min Temperature 2020-07-25 04:22:59 36.9\\S\\98.4 Weight 2020-07-25 04:22:59 75880.817\\S\\2480 Weight Measurement 2020-07-25 04:22:59 Estimated by Staff Method 02 Sat by Pulse 2020-07-25 04:05:10 99 /min Oximetry Body Mass Index 2020-07-25 04:05:10 21.0 Height 2020-07-25 04:05:10 182.88\\S\\72 Pulse Rate 2020-07-25 04:05:10 90 /min Respiratory Rate 2020-07-25 04:05:10 18 /min Temperature 2020-07-25 04:05:10 36.9\\S\\98.4 Weight 2020-07-25 04:05:10 23377.817\\S\\2480 Weight Measurement 2020-07-25 04:05:10 Estimated by Staff Method 02 Sat by Pulse 2020-07-25 04:03:38 99 /min Oximetry Body Mass Index 2020-07-25 04:03:38 21.0 Height 2020-07-25 04:03:38 182.88\\S\\72 Pulse Rate 2020-07-25 04:03:38 90 /min Respiratory Rate 2020-07-25 04:03:38 18 /min Temperature 2020-07-25 04:03:38 36.9\\S\\98.4 Weight 2020-07-25 04:03:38 69934.817\\S\\2480 Weight Measurement 2020-07-25 04:03:38 Estimated by Staff Method 02 Sat by Pulse 2020-07-25 04:02:07 99 /min Oximetry Body Mass Index 2020-07-25 04:02:07 21.0 Height 2020-07-25 04:02:07 182.88\\S\\72 Pulse Rate 2020-07-25 04:02:07 90 /min Respiratory Rate 2020-07-25 04:02:07 18 /min Temperature 2020-07-25 04:02:07 36.9\\S\\98.4 Weight 2020-07-25 04:02:07 49229.817\\S\\2480 Weight Measurement 2020-07-25 04:02:07 Estimated by Staff Method WEIGHT 2020-07-25 03:58:00 70.587292 kg HEIGHT 2020-07-25 03:58:00 182.88 cm Respiratory 2020-07-23 11:39:37 No respiratory distress /min 02 Sat by Pulse 2020-07-23 11:39:37 98 /min Oximetry Body Mass Index 2020-07-23 11:39:37 21.2 Height 2020-07-23 11:39:37 187.96\\S\\74 Pulse Rate 2020-07-23 11:39:37 92 /min Respiratory Rate 2020-07-23 11:39:37 20 /min Temperature 2020-07-23 11:39:37 36.5\\S\\97.7 Weight 2020-07-23 11:39:37 39809.741\\S\\2640 Weight Measurement 2020-07-23 11:39:37 Estimated by Staff Method Respiratory 2020-07-22 01:44:33 No respiratory distress /min 02 Sat by Pulse 2020-07-22 01:44:33 98 /min Oximetry Body Mass Index 2020-07-22 01:44:33 21.2 Height 2020-07-22 01:44:33 187.96\\S\\74 Pulse Rate 2020-07-22 01:44:33 92 /min Respiratory Rate 2020-07-22 01:44:33 20 /min Temperature 2020-07-22 01:44:33 36.5\\S\\97.7 Weight 2020-07-22 01:44:33 26226.741\\S\\2640 Weight Measurement 2020-07-22 01:44:33 Estimated by Staff Method Respiratory 2020-07-22 01:18:33 No respiratory distress /min 02 Sat by Pulse 2020-07-22 01:18:33 98 /min Oximetry Body Mass Index 2020-07-22 01:18:33 21.2 Height 2020-07-22 01:18:33 187.96\\S\\74 Pulse Rate 2020-07-22 01:18:33 92 /min Respiratory Rate 2020-07-22 01:18:33 20 /min Temperature 2020-07-22 01:18:33 36.5\\S\\97.7 Weight 2020-07-22 01:18:33 71461.741\\S\\2640 Weight Measurement 2020-07-22 01:18:33 Estimated by Staff Method Respiratory 2020-07-22 00:26:33 No respiratory distress /min 02 Sat by Pulse 2020-07-22 00:26:33 98 /min Oximetry Body Mass Index 2020-07-22 00:26:33 21.2 Height 2020-07-22 00:26:33 187.96\\S\\74 Pulse Rate 2020-07-22 00:26:33 92 /min Respiratory Rate 2020-07-22 00:26:33 20 /min Temperature 2020-07-22 00:26:33 36.5\\S\\97.7 Weight 2020-07-22 00:26:33 01971.741\\S\\2640 Weight Measurement 2020-07-22 00:26:33 Estimated by Staff Method Weight 2020-07-22 00:23:28 77887.741\\S\\2640 Weight Measurement 2020-07-22 00:23:28 Estimated by Staff Method Respiratory 2020-07-22 00:23:28 No respiratory distress /min 02 Sat by Pulse 2020-07-22 00:23:28 98 /min Oximetry Body Mass Index 2020-07-22 00:23:28 21.2 Height 2020-07-22 00:23:28 187.96\\S\\74 Pulse Rate 2020-07-22 00:23:28 92 /min Respiratory Rate 2020-07-22 00:23:28 20 /min Temperature 2020-07-22 00:23:28 36.5\\S\\97.7 02 Sat by Pulse 2020-07-21 23:17:22 98 /min Oximetry Body Mass Index 2020-07-21 23:17:22 21.2 Height 2020-07-21 23:17:22 187.96\\S\\74 Pulse Rate 2020-07-21 23:17:22 92 /min Respiratory Rate 2020-07-21 23:17:22 20 /min Temperature 2020-07-21 23:17:22 36.5\\S\\97.7 Weight 2020-07-21 23:17:22 89361.741\\S\\2640 Weight Measurement 2020-07-21 23:17:22 Estimated by Staff Method 02 Sat by Pulse 2020-07-21 23:11:45 98 /min Oximetry Body Mass Index 2020-07-21 23:11:45 21.2 Height 2020-07-21 23:11:45 187.96\\S\\74 Pulse Rate 2020-07-21 23:11:45 92 /min Respiratory Rate 2020-07-21 23:11:45 20 /min Temperature 2020-07-21 23:11:45 36.5\\S\\97.7 Weight 2020-07-21 23:11:45 27618.741\\S\\2640 Weight Measurement 2020-07-21 23:11:45 Estimated by Staff Method WEIGHT 2020-07-21 23:07:00 74.229338 kg HEIGHT 2020-07-21 23:07:00 187.96 cm Procedures Procedure Date / Time Performing Clinician Source Performed COMPREHENSIVE METABOLIC 2022-08-27 01:51:00 [facility] PANEL MAGNESIUM LEVEL 2022-08-27 01:51:00 [facility] PHOSPHORUS LEVEL 2022-08-27 01:51:00 [facility] IONIZED CALCIUM 2022-08-27 01:51:00 [facility] ESTIMATED GFR 2022-08-27 01:51:[address] [facility] [address] CERVICAL SPINE WO 2022-08-27 01:05:00 [facility] CONTRAST URINE DRUGS OF ABUSE 2022-05-27 14:58:00 [facility] SCREEN AND 2022-05-27 14:58:00 FerrisErnie whitten Ayden [facility] MICROSCOPY, WITH REFLEX TO CULTURE COVID-19 QUALITATIVE 2022-05-27 13:49:00 [facility] RT-PCR CBC WITH PLATELET AND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 Outpatient EGBULEFU, [facility] [id number] Simpson 09:38:59 11:00:17 [facility] 2021-12-06 2021-12-06 Outpatient EGBULEFU, [facility] [id number] Simpson 00:00:00 00:00:00 [facility] 2021-12-03 2021-12-03 Outpatient EGBULEFU, [facility] [id number] Simpson 09:46:14 10:59:20 [facility] 2021-12-02 2021-12-02 Outpatient [facility] [id number] Simpson 13:04:32 13:04:32 [facility] 2021-12-02 2021-12-02 Outpatient EGBULEFU, [facility] [id number] Simpson 07:39:38 09:38:08 [facility] 2021-12-02 2021-12-02 Outpatient GOTSCHALL, [facility] [id number] Simpson 07:46:38 07:48:49 [facility] hospital 2021-12-02 2021-12-02 Outpatient EGBULEFU, [facility] [id number] Simpson 00:00:00 00:00:00 [facility] 2021-11-29 2021-11-30 Emergency [facility] [id number] Simpson 19:01:00 01:49:00 [facility] 2021-11-29 2021-11-29 Outpatient EGBULEFU, [facility] [id number] Simpson 10:07:10 10:37:20 [facility] 2021-11-29 2021-11-29 Outpatient [facility] [id number] Simpson 08:50:23 09:12:45 [facility] 2021-11-26 2021-11-26 Outpatient [facility] [id number] Simpson 08:41:54 11:03:01 [facility] 2021-11-25 2021-11-25 Outpatient EGBULECELESTE, [facility] [id number] Simpson 13:29:46 14:22:39 [facility] 2021-11-11 2021-11-12 Emergency EM Carley Scanlon [facility] [id number] [facility] 09:09:00 05:00:00 [id number] [facility] 2021-11-11 2021-11-12 Emergency EM Colton, [facility] [id number] [facility] 09:09:00 05:00:00 Wilbur Schultz [facility] 2021-11-11 2021-11-11 Outpatient [facility] [id number] [place] 00:00:00 00:00:00 [facility] 2021-10-27 2021-10-28 Emergency [facility] [id number] Memoria 20:08:40 05:30:00 [facility] 00 [facility] 2021-10-18 2021-10-26 Inpatient [facility] [id number] Simpson 10:57:00 23:00:00 [facility] 2021-10-16 2021-10-16 Outpatient CUONG, [facility] [id number] Simpson 21:35:04 23:59:00 [facility] 2021-10-16 2021-10-16 [facility] [id number] Simpson 18:17:00 20:46:00 [facility] 2021-10-16 2021-10-16 Emergency ABDHERRERA, [facility] [id number] Simpson 16:26:00 16:35:00 [facility] 2021-10-16 2021-10-16 Emergency Saeid, 1.2.840.1 [id number] Methodi 03:12:00 06:33:00 Slade 38288.1.1 928 [facility] 3.430.2.7 Hospit a .3.243132 l .8 2021-10-16 2021-10-16 Emergency 1.2.840.1 [id number] Methodi 01:27:00 01:28:[address] 3.430.2.7 Hospit a .3.843986 l .8 2021-10-16 2021-10-16 Emergency [facility] [id number] [place] 00:00:00 00:00:00 [facility] 2021-10-16 2021-10-16 Emergency [place] [id number] [place] 00:00:00 00:00:00 708 Method i 2021-10-16 2021-10-16 Emergency SAEID, [place] [id number] [place] 00:00:00 00:00:00 SLADE 928 Method i 2021-10-14 2021-10-15 Emergency Mary Alice Vogel 1.2.840.1 [id number] Methodi 16:26:00 11:32:[address] 3.430.2.7 Hospit a .3.215355 l .8 2021-10-14 2021-10-15 Emergency MARY ALICE VOGEL [facility] [id number] [place] 00:00:00 00:00:00 834 Method i 2021-10-11 2021-10-14 Inpatient NGUYEN, [facility] [id number] [place] 15:28:27 11:56:00 [facility] 2021-10-08 2021-10-08 Emergency EM Jackson ERIKA ANNA [id number] [facility] 05:25:00 20:02:00 Cristina 53 [facility] 2021-10-08 2021-10-08 Emergency EM Jackson [facility] [id number] [facility] 05:25:00 20:02:00 [facility] [id number] [facility] 2021-10-04 2021-10-04 Emergency VALENTINA [place] [id number] [place] 00:00:00 00:00:00 EYITEMI [address] 2021-09-30 2021-09-30 PAIN IN 3 SHIELA CANDELARIO [facility] [place] [id number] [facility] 15:21:00 23:59:[address] [facility] [address] shira RIVAS (LUF/LI AVE, V/SA) KIMBERLEE PERES 19755 2021-09-30 2021-09-30 Inpatient [facility] df38 [id number] [facility] St 00:00:00 00:00:00 HIGDEN [id number] [facility], [id number] Memor ia [address] [id number] l ROB (LUF/LI AVE, V/[place]) [place] [address] 2021-09-30 2021-09-30 Inpatient [facility] [id number] [facility] St 00:00:00 00:00:00 HIGDEN [id number] [facility], [id number] Memor ia [address] [id number] l ROB (LUF/LI AVE, V/[place]) [place] [address] 2021-09-21 2021-09-21 Inpatient 1 DAVE, [facility] [place] [id number] [facility] St 12:28:00 15:00:00 CLEMENT [facility] [address] (LUF/LI AVE, V/SA) [place] [address] 2021-09-21 2021-09-21 Inpatient [facility] 2e85 [id number] [facility] St 00:00:00 00:00:00 HIGDEN [id number] [facility], [id number] Memor ia [address] [id number] l ROB (LUF/LI AVE, V/[place]) [place] [address] 2021-08-19 2021-08-19 CYSTITIS 1 PRATT, [facility] [id number] [facility] St 07:12:00 10:18:00 UNS SHIELA [facility] HEMATURIA [address] (LUF/LI AVE, V/SA) [place] [address] 2021-08-19 2021-08-19 Inpatient [facility] f96d [id number] 00:00:00 00:00:00 HIGDEN [id number] [facility], [id number] Memor ia [address] fc6acc l ROB (LUF/LI AVE, V/SA) [place] [address] 2021-08-19 2021-08-19 Inpatient [facility] [id number] [facility] 00:00:00 00:00:00 HIGDEN [id number] [facility], [id number] Memor ia [address] [id number] l ROB (LUF/LI AVE, V/SA) [place] [address] 2021-06-26 2021-06-[address] [facility] [id number] [facility] 15:03:00 17:35:00 SHIELA [facility] ([facility]F/LI V/SA) 2021-06-26 2021-06-26 Inpatient [facility] [id number] [facility] 00:00:00 00:00:00 HIGDEN [id number] [facility], [id number] Memor ia [address] [id number] l ROB (LUF/LI AVE, V/SA) [facility] [place] [address] 2021-01-23 2021-01-24 Emergency MARCANTEL, [facility] 064 [id number] [place] 00:00:00 00:00:00 RG [address] 2021-01-15 2021-01-15 Emergency ERIKA Colon [id number] [facility] 15:16:00 19:02:00 Luci 14 [facility] 2021-01-10 2021-01-10 Emergency SEN, [facility] [id number] [place] 00:00:00 00:00:00 CASEY [address] 2021-01-10 2021-01-10 Travel 1.2.840.1 1.2.410.110 0165 [id number] Methodi 00:00:00 00:00:00 82788.1.1 350.1.13.43 662 3.430.2.7 0.2.7.3.698 Ho spita .3.995652 084.8 l .8 2021-01-04 2021-01-05 Emergency ERIKA Zuluaga [id number] [facility] 21:37:00 03:00:00 Martin 23 [facility] 2020-12-29 2020-12-29 Emergency ROB, [facility] [id number] [place] 00:00:00 00:00:00 CASEY 440 Method i 2020-12-28 2020-12-29 Emergency Barbara, [facility] 064 [id number] [place] 00:00:00 00:00:00 Yasin Imrun 307 Pr thodi 2020-12-25 2020-12-25 Emergency [facility] [id number] [facility] 10:47:00 10:47:00 2020-12-25 2020-12-25 Emergency HONG, [place] [address] [id number] [place] 00:00:00 00:00:00 KEE 096 Method i 2020-12-23 2020-12-24 Emergency Lucindaignani, [place] [address] [id number] [place] 00:00:00 00:00:00 Mukul Acosta 612 Pr thodi 2020-12-08 2020-12-08 Emergency [facility] [id number] [place] 00:00:00 00:00:00 949 Method i 2020-12-03 2020-12-04 Emergency Rodo, [facility] [id number] Nigel 22:24:00 01:08:00 Jose Ramon Doss 2020-12-03 2020-12-03 Emergency [facility] [id number] Nigel 00:00:00 00:00:00 [facility] 2020-12-02 2020-12-02 Telemedici Rolando Vera [facility] [id number] Nigel 07:04:58 16:12:52 ne [facility] 2020-11-26 2020-11-27 Emergency Di, [place] [address] [id number] [place] 00:00:00 00:00:00 Rg Marin Method i 2020-11-25 2020-11-26 Emergency [facility] [id number] Nigel 00:00:00 07:40:00 [facility] 2020-11-23 2020-11-25 Inpatient PATRICK, [facility] [id number] Nigel 22:44:46 17:05:00 [facility] 2020-11-23 2020-11-23 Outpatient [facility] [id number] [place] 21:23:41 22:43:00 [facility] 2020-11-21 2020-11-21 Emergency [facility] [id number] [facility] 03:44:00 03:44:00 60 2020-11-21 2020-11-21 Travel 1.2.840.1 1.2.620.917 5940 [id number] Methodi 00:00:00 00:00:[address] 3.430.2.7 0.2.7.3.698 Ho spita .3.138521 084.8 l .8 2020-11-21 2020-11-21 Emergency Hong, [place] [address] [id number] [place] 00:00:00 00:00:00 Kee Jackson 858 Me thodi 2020-11-21 2020-11-21 Emergency HONG, [place] [address] [id number] [place] 00:00:00 00:00:00 KEE Campbell4 Method i 2020-11-19 2020-11-19 Emergency ROB, [facility] 064 [id number] [place] 00:00:00 00:00:00 CASEY 103 Method i 2020-11-11 2020-11-11 Telemedici Rolando Vera [facility] [id number] Nigel 07:09:12 17:04:01 ne [facility] 2020-10-28 2020-10-28 Office Rolando Vera [facility] [id number] Nigel 13:37:38 14:06:40 Visit [facility] 2020-10-15 2020-10-15 Emergency Quinones, [facility] [id number] [place] 00:12:00 00:16:00 Al Doss 2020-10-14 2020-10-14 Nurse Donal [facility] [id number] Nigel 00:00:00 00:00:00 Triage [facility] 2020-10-04 2020-10-05 Emergency Dave Cesar [facility] [id number] [place] 15:20:00 00:41:00 Claudia Ruiz [facility] 2020-10-04 2020-10-04 Emergency [facility] [id number] Simpson 15:38:21 15:49:04 [facility] 2020-10-02 2020-10-02 Emergency [facility] [id number] Mnaning 13:10:00 23:32:00 AL [facility] 2020-10-02 2020-10-02 Emergency [facility] [id number] Manning 19:55:07 20:27:54 [facility] 2020-09-30 2020-09-30 Emergency Neal, 1.2.840.1 [id number] Methodi 12:14:00 16:37:[address] [place] 3.430.2.7 Hosp j[facility] .[id number] l .8 2020-09-30 2020-09-30 Travel 1.2.840.1 [id number] Methodi 00:00:00 00:00:[address] 3.430.2.7 0.2.7.3.698 [facility] .[id number] 084.8 l .8 2020-01-21 2020-01-21 Emergency 1 David, [facility] KAYLA [id number] [address] 10:18:00 12:46:00 [facility] Desmond [facility] 2020-01-21 2020-01-21 Emergency 1 [facility] KAYLA [id number] 10:18:00 10:18:00 [facility] -[id number] [facility] 2020-01-19 2020-01-19 Emergency 1 Matt Diallo [facility] KAYLA [id number] 17:31:00 19:00:00 Matt Diallo [facility] 2020-01-19 2020-01-19 Emergency [facility] KAYLA [id number] [address] 17:31:00 17:31:00 -[id number] [facility] 2019-07-29 2019-07-29 Emergency [facility] KAYLA [id number] [address] 22:14:00 22:14:00 [facility] 2019-07-29 2019-07-29 Emergency [facility] KAYLA [id number] [address] 22:14:00 22:14:00 -[id number] [facility] 2019-07-29 2019-07-29 Emergency [facility] KAYLA [id number] [address] 08:55:00 08:55:00 [facility] 2019-07-21 2019-07-21 Emergency [facility] KAYLA [id number] [address] 23:37:00 23:37:00 [facility] 2019-07-20 2019-07-20 Emergency [facility]LA [id number] [address] 09:08:00 09:08:00 [facility] 2019-07-20 2019-07-20 Emergency [facility]LA [id number] [address] 09:08:00 09:08:00 [facility] 2018-03-06 2018-03-06 Outpatient [facility] [id number] [address] [place] [address] 00:00:00 00:00:00 [facility] 2018-01-29 2018-01-29 Emergency [facility] [id number] [address] 16:17:09 16:17:09 [facility] 2018-01-29 2018-01-29 Emergency [facility] [id number] [address] 15:04:42 15:04:42 [facility] 2017-12-06 2017-12-06 Emergency [facility] [id number] [address] 21:20:55 21:20:55 [facility] 2017-06-30 2017-06-30 Emergency E [facility] MED [id number] [address] 21:35:00 21:35:00 [facility] 2017-06-14 2017-06-14 Emergency E [facility] MED [id number] [address] 20:07:00 20:07:00 [facility] Results Test Description Test Time Test Comments Results Result Comments Source SARS-CoV-2 RNA Resp Ql CAMERON+probe 2022-07-26 12:03:02 Test Item Value Reference Range Interpretation Comme nts Symptomatic as defined by CDC? No (test code = 75590-0) Hospitalized? (test code = No 30507-1) ICU? (test code = 13632-6) No Employed in Healthcare? (test No code = 34404-9) Resident in a congregate care No setting (including nursing homes, residential care for people with intellectual and developmental disabilities, psychiatric treatment facilities, group homes, board and care homes, homeless nursing home, foster care or other): (test code = 63611-8) SARS-CoV-2 RNA Resp Ql NOT DETECTED Not Detected The 2 019 novel coronavirus CAMERON+probe (test code = (SARS -CoV-2) target nucleic 00605-2) acids are not d etected. COMMENT: The [employer] Xpert Xpress SARS-CoV-2 real-time PCR test was developed and its performance characteristics have been determined by the [facility]. This test has not been cleared or approved by the FDA. This test system has been authorized by the FDA under an Emergency Use Authorization (EUA). This test has been validated in accordance with the FDA\\RP12875\\s Guidance document \\ML3070H\\Policy for Diagnostic Tests for Coronavirus Disease-2019 during the Public Health Emergency\\CI9679C\\ issued on July 22, 2019 and is used for clinical purposes. It should not be regarded as investigational or for research. \\ST9752U\\Detected\\MN5956T\\ results are in dicative of active infection with SARS-CoV-2; clinical correlation with patient history and other diagnostic information is necessary to determine patient infection status.\\KK5349O\\Not Detected\\[id number]\\ results do not preclude SARS-CoV-2 infection and should not be used as the sole basis for treatmentor other patient management decisions. Negative results must be combined with clinical observations,patient history, and epidemiological information.This laboratory is certified under the Clinical Laboratory Improvement Amendments (CLIA) as qualified to perform high complexity clinical laboratory testing.[facility] Influenza Virus A B [id number] 19:12:00 Test Item Value Reference Range Interpretation Comments Influenza Virus A Antigen (test code Negative Negative = INFAAB) Influenza Virus B Antigen (test code Positive Negative A = INFBAB) Rapid Group A Strep [id number] 19:12:00 Test Item Value Reference Range Interpretation Comments Rapid Group A Strep Screen (test Negative Negative code = RSST) Throat Culture-Beta Strep [id number] 19:12:00 Test Item Value Reference Range Interpretation Comments Throat Culture-Beta No Beta Strep Group A Strep Only (test code isolated at 48 hours = TCBS) Viral Culture,Rapid,[id number] 19:12:00 Test Item Value Reference Range Interpretation Comments Viral Comment See_Comment Negative:No Inf luenza A or Culture,Rapid,Influe B detec suze.Performed at: [facility] (test code = BN - [facility] p VIRCULINFL.005) [address] [id number] Di yuniel: Annie Joaquin MD, Phone: [phone] [Aut omated message] The sy stem which generated this result transmitted ref erence range: .. The r eference range was not u sed to interpret this result as normal/abnormal . SARS-CoV-2 RNA Resp Ql CAMERON+[id number] 00:17:13 Test Item Value Reference Range Interpretation Comments Hospitalized? (test No code = 47008-7) ICU? (test code = No 21794-1) Symptomatic as defined No by CDC? (test code = 16561-6) Employed in No Healthcare? (test code = 56200-7) Resident in a No congregate care setting (including nursing homes, residential care for people with intellectual and developmental disabilities, psychiatric treatment facilities, group homes, board and care homes, homeless nursing home, foster care or other): (test code = 42488-0) SARS-CoV-2 RNA Resp Ql NOT DETECTED Not Detected The 2 019 novel CAMERON+probe (test code = coron avirus 58592-2) (SARS-CoV-2) ta rget nucleic acids a re not detected. The ELIZ Susan SARS-CoV-2/Influenza is a real-time RT-PCR based diagnostic test intended for the qualitative detection of SARS-CoV-2 viral RNA in a nasopharyngeal swab during acute phase of infection. This test was developed and its performance characteristics have been determined by the [facility]. This test has not been cleared or approved by the FDA. This test system has been authorized by the FDA under an Emergency Use Authorization (EUA). This test has been validated in accordance with the FDA's Guidance document "Policy for Coronavirus Disease-2019 Tests During the Public Health Emergency" (Revised September 2019) and is used for clinical purposes. It should not be regarded as investigational or for researchPositive results are indicative of the presence of the identified virus, but do not rule out bacterial infection or co-infection with other pathogens not detected by the test. Clinical correlation with patient history and other diagnostic information is necessary to determine patient infection status. Negative results do not preclude SARS-CoV-2 or Influenza A and B and should not be used as the sole basis for treatment or other patient management decisions. Negative results must be combined with clinical observations, patient history, and/or epidemiological information. If co-infection with influenza A or influenza B virus is suspected in samples with a positive SARS-CoV-2 result, please contact the laboratory so that the sample can be re-tested with a different instrument, if influenza virus detection would change clinical management.This laboratory is certified under the Clinical Laboratory Improvement Amendments (CLIA) as qualified to perform high complexity clinical laboratory testing.HHSComplete Blood Count Auto Diff 2022-06-19 20:13:00 Test Item Value Reference Range Interpretation Comments White Blood Count (test code = 9.7 x10 3/uL 4.4-10.5 N WBCT) Red Blood Count (test code = 4.71 x10 6/uL 4.10-5.70 N RBC) Hemoglobin (test code = HGBT) 14.6 g/dL 13.4-17.4 N Hematocrit (test code = HCTT) 44.2 % 38.7-52.0 N Mean Corpuscular Volume (test 93.80 fL 80.00-100.00 N code = MCV) Mean Corpuscular Hemoglobin 31.0 pg 27.0-32.5 N (test code = MCH) Mean Corpuscular HGB Conc 33.00 g/dL 32.00-37.50 N (test code = MCHC) RDW Coefficient of Variation 12.7 % 11.5-14.5 N (test code = RDWCV) Platelet Count (test code = 307.0 x10 3/uL 140.0-440.0 N PLTT) Mean Platelet Volume (test 10.1 fL code = MPV) Immature Granulocytes % (Auto) 0.5 % 0.0-5.0 N (test code = IMMGRAN%) Neutrophils % (Auto) (test 69.0 % 36.0-70.0 N code = NE%) Lymphocytes % (Auto) (test 20.2 % 12.0-44.0 N code = LY%) Monocytes % (Auto) (test code 8.6 % 0.0-11.0 N = MO%) Eosinophils % (Auto) (test 1.4 % 0.0-7.0 N code = EO%) Basophils % (Auto) (test code 0.3 % 0.0-2.0 N = BA%) Immature Granulocytes # (Auto) 0.05 x10 3/uL (test code = IMMGRAN#) Neutrophils # (Auto) (test 6.7 x10 3/uL 1.6-7.4 N code = NE#) Lymphocytes # (Auto) (test 1.96 x10 3/uL 0.50-4.60 N code = LY#) Monocytes # (Auto) (test code 0.84 x10 3/uL 0.00-1.20 N = MO#) Eosinophils # (Auto) (test 0.14 x10 3/uL 0.00-0.74 N code = EO#) Basophils # (Auto) (test code 0.03 x10 3/uL 0.00-0.21 N = BA#) nRBC Abs (test code = NRBCA) 0 nRBC Pct (test code = NRBCP) 0 % Comprehensive Metabolic [id number] 20:13:00 Test Item Value Reference Range Interpretation Comments SODIUM (test code = NA) 142.0 mmol/L 136.0-145.0 N Potassium,K (test code = 3.8 mmol/L 3.0-5.1 N K) Chloride (test code = 106 mmol/L 98-107 N CL) Carbon Dioxide (test 27 mmol/L 20-31 N code = CO2) Anion Gap (test code = 9 mmol/L 5-15 N GAP) Blood Urea Nitrogen 10 mg/dL 9-23 N (test code = BUN) Creatinine (test code = 0.76 mg/dL 0.55-1.02 N CREATT) Creatinine Clr Calc 136.14 Pharmacy (test code = mL/min CRCLPHA) Estimated Glomerular 114 See_Comment Reporte d eGFR is Filt Rate (test code = based on the EGFR.XX) CKD-EPI 2020 equation thatdo es not use a race coefficient. Additional information can be found at:[id number]_e cb_ egfr_summary_fl angle 5.pdf (kidney.o rg) [Automated message] The system which generated this result transmit suze reference range : >=90 ml/min/1.73m2. The reference range was not used to interpret this result as normal/abnormal . BUN/Creatinine Ratio 13 ratio 10-20 N (test code = BCRATIO) Glucose (test code = 106 mg/dL 74-106 N GLU) Osmolality,Calculated 292.5 (test code = OSMOC) Calcium (test code = CA) 9.0 mg/dL 8.3-10.6 N Bilirubin,Total (test 0.4 mg/dL 0.2-1.1 N code = BILIT) Aspartate Amino 29 U/L 0-34 N Transferase (test code = AST) Alanine Aminotransferase 30 U/L 10-49 N (test code = ALT) Total Protein (test code 6.5 g/dL 5.7-8.2 N = TP) Albumin Level (test code 4.2 g/dL 3.2-4.8 N = ALB) Globulin (test code = 2.3 mg/dL 2.3-3.5 N GLOB) Albumin/Globulin Ratio 1.8 ratio 0.8-2.0 N (test code = AGRATIO) Alkaline Phosphatase 82 U/L 46-116 N (test code = ALP) Ethanol [id number] 20:13:00 Test Item Value Reference Range Interpretation Comments Ethanol (test code < 3 mg/dL The pharm acological = ETOH) response to blo od alcohol levels mayvary from individual to i ndividual. The fatal alyce ntrationhas been reported t o be >400mg/dL. ECG 12 [id number] 06:09:33 Test Item Value Reference Range Interpretation Comments Ventricular rate (test 80 code = 253) Atrial rate (test code 80 = 255) DC interval (test code 156 = 266) QRSD interval (test 82 code = 260) QT interval (test code 410 = 264) QTC interval (test code 472 = 265) P axis 1 (test code = 69 267) QRS axis 1 (test code = 68 268) T wave axis (test code 68 = 270) EKG impression (test Normal sinus code = 273) rhythm-Possible Left atrial enlargement-Septal infarct , age undetermined-Abnormal ECG-In automated comparison with ECG of 16-OCT-2021 04:05,-Septal infarct is now present-QT has lengthened-Electronica lly Signed By Teri Presley MDshaw ([id number]) on 05/28/2022 12:09:26 [facility] [id number] 15:43:00 Test Item Value Reference Range Interpretation Comments Urine culture (test SEE COMMENT Bacteriu shannan screen code = 2173613) negative. [facility] ED Preliminary Interpretation - Not an [id number] 13:22:47 Test Item Value Reference Range Interpretation Comments JESSIE (test code = JESSIE) Ernie Ferris MD 05/27/2022 3:08 [facility] ED Preliminary Interpretation - Not an OrderPerformed by: Ernie Ferris MDAuthorized by: Ernie Ferris MD ECG reviewed by ED Physician in the absence of a excel analyst: yes Interpretation: Interpretation: abnormal Rate: ECG rate: 80 ECG rate assessment: normal Rhythm: Rhythm: sinus rhythm Ectopy: Ectopy: none QRS: QRS axis: NormalConduction: Conduction: normal ST segments: ST segments: NormalT waves: T waves: normal Other findings: Other findings: LAE Lab Interpretation Abnormal (test code = 66002-3) [facility] [Presence] in Respiratory specimen by CAMERON with probe [id number] 08:43:00 Test Item Value Reference Range Interpretation Comments SARS-CoV-2 (COVID-19) RNA Not detected [Presence] in Respiratory specimen by CAMERON with probe detection (test code = 16861-6) Whether patient is employed in a Unknown healthcare setting (test code = 41114-9) Whether the patient has symptoms Unknown related to condition of interest (test code = 50649-2) Whether the patient was Unknown hospitalized for condition of interest (test code = 01099-3) Whether the patient was admitted Unknown to intensive care unit (ICU) for condition of interest (test code = 32387-6) Whether patient resides in a Unknown congregate care setting (test code = 98798-8) status (test code = Unknown 61613-7) Date and time of symptom onset Unknown (test code = 66628-8) AMANDA FENG [facility] Screen,[id number] 21:30:00 Test Item Value Reference Range Interpretation Comments PCP Phencyclidine Negative Negative Screen,Urine (test code = PCPU) Amphetamine Positive Negative A Confirmation by GC/MS Screen,Urine (test code not routinely = AMPU) performed. Ifconfirmation is required, an or renee must be placed. Methadone Screen,Urine Negative Negative (test code = METHU) Opiate Screen,Urine Negative Negative (test code = UOPIS) Barbituates Negative Negative Screen,Urine (test code = BARBU) Benzodiazepines Negative Negative Screen,Urine (test code = UBENZS) Cocaine Screen,Urine Negative Negative (test code = UCOCS) Cannabinoid Negative Negative Screen,Urine (test code = UTHCS) Propoxyphene Screen, Negative Negative Urine (test code = UPROP) UA, Urinalysis Rflx [id number] 21:30:00 Test Item Value Reference Range Interpretation Comments Color,Urine (test code = UCOL) Yellow Yellow Clarity,Urine (test code = Clear Clear UCLAR) Ph, Urine (test code = UPH) 5.5 5.0-9.0 N Specific [place],Urine (test >= 1.030 1.005-1.030 N code = USG) Blood,Urine (test code = UBLD) Moderate mg/dL Negative A Protein,Urine (test code = 30 mg/dL Negative A UPRO) Glucose,Urine (UA) (test code 250 mg/dL Negative A = UGLU) Ketones,Urine (test code = 80 mg/dL Negative A UKET) Nitrate,Urine (test code = Negative Negative UNIT) Bilirubin,Urine (test code = Negative mg/dL Negative UBIL) Urobilinogen,Urine (test code 1.0 E.U./dL Normal = UURO) Leukocyte Esterase,Urine (test Negative mg/dL Negative code = ULEU) UF REFLEXUF REFLEXUrine [id number] 21:30:00 Test Item Value Reference Range Interpretation Comments RBC,Urine (test code = URBCUF) 26-50 /HPF 0-2 A WBC,Urine (test code = UWBCUF) 0-5 /HPF 0-5 Epithelial Cell,Urine (test None Seen /HPF 0-5 code = UECUF) Casts,Urine (test code = None Seen /LPF None Seen UCASTUF) Bacteria,Urine (test code = None Seen /hpf None Seen UBACTUF) UF REFLEXUF REFLEXComplete Blood Count Auto [id number] 20:05:00 Test Item Value Reference Range Interpretation Comments White Blood Count (test code = 14.0 x10 3/uL 4.4-10.5 H WBCT) Red Blood Count (test code = 4.56 x10 6/uL 4.10-5.70 N RBC) Hemoglobin (test code = HGBT) 14.2 g/dL 13.4-17.4 N Hematocrit (test code = HCTT) 43.0 % 38.7-52.0 N Mean Corpuscular Volume (test 94.30 fL 80.00-100.00 N code = MCV) Mean Corpuscular Hemoglobin 31.1 pg 27.0-32.5 N (test code = MCH) Mean Corpuscular HGB Conc 33.00 g/dL 32.00-37.50 N (test code = MCHC) RDW Coefficient of Variation 12.8 % 11.5-14.5 N (test code = RDWCV) Platelet Count (test code = 295.0 x10 3/uL 140.0-440.0 N PLTT) Mean Platelet Volume (test 10.5 fL code = MPV) Immature Granulocytes % (Auto) 0.6 % 0.0-5.0 N (test code = IMMGRAN%) Neutrophils % (Auto) (test 60.4 % 36.0-70.0 N code = NE%) Lymphocytes % (Auto) (test 28.1 % 12.0-44.0 N code = LY%) Monocytes % (Auto) (test code 9.0 % 0.0-11.0 N = MO%) Eosinophils % (Auto) (test 1.3 % 0.0-7.0 N code = EO%) Basophils % (Auto) (test code 0.6 % 0.0-2.0 N = BA%) Immature Granulocytes # (Auto) 0.08 x10 3/uL (test code = IMMGRAN#) Neutrophils # (Auto) (test 8.5 x10 3/uL 1.6-7.4 H code = NE#) Lymphocytes # (Auto) (test 3.94 x10 3/uL 0.50-4.60 N code = LY#) Monocytes # (Auto) (test code 1.27 x10 3/uL 0.00-1.20 H = MO#) Eosinophils # (Auto) (test 0.18 x10 3/uL 0.00-0.74 N code = EO#) Basophils # (Auto) (test code 0.09 x10 3/uL 0.00-0.21 N = BA#) nRBC Abs (test code = NRBCA) 0 nRBC Pct (test code = NRBCP) 0 % Comprehensive Metabolic [id number] 20:05:00 Test Item Value Reference Range Interpretation Comments SODIUM (test code = NA) 137.0 mmol/L 136.0-145.0 N Potassium,K (test code = 4.0 mmol/L 3.0-5.1 N K) Chloride (test code = 106 mmol/L 98-107 N CL) Carbon Dioxide (test 21 mmol/L 20-31 N code = CO2) Anion Gap (test code = 10 mmol/L 5-15 N GAP) Blood Urea Nitrogen 28 mg/dL 9-23 H (test code = BUN) Creatinine (test code = 0.83 mg/dL 0.55-1.02 N CREATT) Creatinine Clr Calc 124.66 Pharmacy (test code = mL/min CRCLPHA) Estimated Glomerular 111 See_Comment Reporte d eGFR is Filt Rate (test code = based on the EGFR.XX) CKD-EPI 2020 equation thatdo es not use a race coefficient. Additional information can be found at:[id number]_m cb_ egfr_summary_fl angle 5.pdf (kidney.o rg) [Automated message] The system which generated this result transmit suze reference range : >=90 ml/min/1.73m2. The reference range was not used to interpret this result as normal/abnormal . BUN/Creatinine Ratio 34 ratio 10-20 H (test code = BCRATIO) Glucose (test code = 79 mg/dL 74-106 N GLU) Osmolality,Calculated 288.0 (test code = OSMOC) Calcium (test code = CA) 8.9 mg/dL 8.3-10.6 N Bilirubin,Total (test 1.0 mg/dL 0.2-1.1 N code = BILIT) Aspartate Amino 80 U/L 0-34 H Transferase (test code = AST) Alanine Aminotransferase 40 U/L 10-49 N (test code = ALT) Total Protein (test code 6.1 g/dL 5.7-8.2 N = TP) Albumin Level (test code 4.2 g/dL 3.2-4.8 N = ALB) Globulin (test code = 1.9 mg/dL 2.3-3.5 L GLOB) Albumin/Globulin Ratio 2.2 ratio 0.8-2.0 H (test code = AGRATIO) Alkaline Phosphatase 63 U/L 46-116 N (test code = ALP) Ethanol [id number] 20:05:00 Test Item Value Reference Range Interpretation Comments Ethanol (test code < 3 mg/dL The pharm acological = ETOH) response to blo od alcohol levels mayvary from individual to i ndividual. The fatal alyce ntrationhas been reported t o be >400mg/dL. Coronavirus NAAT, [id number] 20:05:00 Test Item Value Reference Range Interpretation Comments Coronavirus NAAT, COVD19 Reference Range: (test code = Negative [id number]) Coronavirus NAAT, COVD19 ical-devices/emergenc (test code = k-xhg-cyibxqjpspfcax. JQVYNCI5GLXS2.1) SARS-CoV-2 NAAT Result: Negative by RT-PCR (test code = SARS-CoV-2 NAAT Result:) [id number] 16:34:00 Test Item Value Reference Range Interpretation Comments Coronavirus (COVID-19) Not Detected CAMERON (test code = (05/05/22 10:34 AM) Coronavirus (COVID-19) CAMERON) [id number] 16:34:00 Test Item Value Reference Range Interpretation Comments Coronavirus (COVID-19) Not Detected CAMERON (test code = (05/05/22 10:34 AM) Coronavirus (COVID-19) CAMERON) [facility] [id number] 16:34:00 Test Item Value Reference Range Interpretation Comments Coronavirus (COVID-19) Not Detected CAMERON (test code = (05/05/22 10:34 AM) Coronavirus (COVID-19) CAMERON) [facility] [id number] 16:34:00 Test Item Value Reference Range Interpretation Comments Coronavirus (COVID-19) Not Detected CAMERON (test code = (05/05/22 10:34 AM) Coronavirus (COVID-19) CAMERON) [facility] [id number] 16:34:00 Test Item Value Reference Range Interpretation Comments Coronavirus (COVID-19) Not Detected CAMERON (test code = (05/05/22 10:34 AM) Coronavirus (COVID-19) CAMERON) [place] [id number] 16:34:00 Test Item Value Reference Range Interpretation Comments Coronavirus (COVID-19) Not Detected CAMERNO (test code = (05/05/22 10:34 AM) Coronavirus (COVID-19) CAMERON) [place] [id number] 16:34:00 Test Item Value Reference Range Interpretation Comments Coronavirus (COVID-19) Not Detected CAMERON (test code = (05/05/22 10:34 AM) Coronavirus (COVID-19) CAMERON) [place] [id number] 16:34:00 Test Item Value Reference Range Interpretation Comments Coronavirus (COVID-19) Not Detected CAMERON (test code = (05/05/22 10:34 AM) Coronavirus (COVID-19) CAMERON) [place] [id number] 16:34:00 Test Item Value Reference Range Interpretation Comments Coronavirus (COVID-19) Not Detected CAMERON (test code = (05/05/22 10:34 AM) Coronavirus (COVID-19) CAMERON) [id number] 19:20:00 Test Item Value Reference Range Interpretation Comments U Amph Scr (test code Negative *NA*(05/04/22 = U Amph Scr) 1:20 PM) [facility] [id number] 19:20:00 Test Item Value Reference Range Interpretation Comments U Sruthi Scr (test code Negative *NA*(05/04/22 = U Sruthi Scr) 1:20 PM) [facility] CenterEhjhqtgDVXZETEFK6016-10-19 19:20:00 Test Item Value Reference Range Interpretation Comments U Benzodiaz Scr (test Negative *NA*(05/04/22 code = U Benzodiaz Scr) 1:20 PM) [facility] CenterKassfkqVIQJIMMYV8493-47-23 19:20:00 Test Item Value Reference Range Interpretation Comments U Cocaine Scr (test Negative *NA*(05/04/22 code = U Cocaine Scr) 1:20 PM) [facility] CenterGhfosowRCZCVHJLL7759-22-16 19:20:00 Test Item Value Reference Range Interpretation Comments U Cannab Scr (test Negative *NA*(05/04/22 code = U Cannab Scr) 1:20 PM) [facility] CenterIesfwabYBICACGEH0562-72-74 19:20:00 Test Item Value Reference Range Interpretation Comments U Opiate Scr (test Negative *NA*(05/04/22 code = U Opiate Scr) 1:20 PM) [id number] 19:20:00 Test Item Value Reference Range Interpretation Comments U Phencyclidine Scr (test Negative code = U Phencyclidine *NA*(05/04/22 1:20 Scr) PM) [facility] [id number] 19:20:00 Test Item Value Reference Range Interpretation Comments UDS Note (test code = See Note *NA*(05/04/22 UDS Note) 1:20 PM) [facility] [id number] 19:20:00 Test Item Value Reference Range Interpretation Comments U Amph Scr (test code Negative *NA*(05/04/22 = U Amph Scr) 1:20 PM) [facility] [id number] 19:20:00 Test Item Value Reference Range Interpretation Comments U Sruthi Scr (test code Negative *NA*(05/04/22 = U Sruthi Scr) 1:20 PM) [facility] [id number] 19:20:00 Test Item Value Reference Range Interpretation Comments U Benzodiaz Scr (test Negative *NA*(05/04/22 code = U Benzodiaz Scr) 1:20 PM) [facility]annDR[facility] [id number] 19:20:00 Test Item Value Reference Range Interpretation Comments U Cocaine Scr (test Negative *NA*(05/04/22 code = U Cocaine Scr) 1:20 PM) [facility] [id number] 19:20:00 Test Item Value Reference Range Interpretation Comments U Cannab Scr (test Negative *NA*(05/04/22 code = U Cannab Scr) 1:20 PM) [facility] [id number] 19:20:00 Test Item Value Reference Range Interpretation Comments U Opiate Scr (test Negative *NA*(05/04/22 code = U Opiate Scr) 1:20 PM) [facility] [id number] 19:20:00 Test Item Value Reference Range Interpretation Comments U Phencyclidine Scr (test Negative code = U Phencyclidine *NA*(05/04/22 1:20 Scr) PM) [facility] [id number] 19:20:00 Test Item Value Reference Range Interpretation Comments UDS Note (test code = See Note *NA*(05/04/22 UDS Note) 1:20 PM) [facility] [id number] 19:20:00 Test Item Value Reference Range Interpretation Comments UA Color (test code = Yellow *NA*(05/04/22 UA Color) 1:20 PM) [facility] [id number] 19:20:00 Test Item Value Reference Range Interpretation Comments UA Turbidity (test code Slight Cloudy = UA Turbidity) (05/04/22 1:20 PM) [facility] [facility] [id number] 19:20:00 Test Item Value Reference Range Interpretation Comments UA Spec Grav (test code = UA Spec 1.015 1 Grav) [facility] [id number] 19:20:00 Test Item Value Reference Range Interpretation Comments UA pH (test code = UA pH) 8.0 1 5.0-8.0 [facility] [id number] 19:20:00 Test Item Value Reference Range Interpretation Comments UA Protein (test code = UA Negative mg/dL Protein) [facility] [id number] 19:20:00 Test Item Value Reference Range Interpretation Comments UA Glucose (test code = UA Negative mg/dL Glucose) [facility] [id number] 19:20:00 Test Item Value Reference Range Interpretation Comments UA Ketones (test code = UA Negative mg/dL Ketones) [facility] [id number] 19:20:00 Test Item Value Reference Range Interpretation Comments UA Bili (test code = Negative *NA*(05/04/22 UA Bili) 1:20 PM) [facility] [id number] 19:20:00 Test Item Value Reference Range Interpretation Comments UA Blood (test code = Negative (05/04/22 1:20 UA Blood) PM) [facility] [id number] 19:20:00 Test Item Value Reference Range Interpretation Comments UA Urobilinogen (test code = UA 0.2 0.1-1.0 Urobilinogen) [facility] [id number] 19:20:00 Test Item Value Reference Range Interpretation Comments UA Nitrite (test code Negative (05/04/22 1:20 = UA Nitrite) PM) [facility] [id number] 19:20:00 Test Item Value Reference Range Interpretation Comments UA Leuk Est (test Negative (05/04/22 1:20 code = UA Leuk Est) PM) [facility] AND [id number] 19:20:00 Test Item Value Reference Range Interpretation Comments UA Sq Epi (test code = UA Sq Occasional /LPF Epi) [facility] AND [id number] 19:20:00 Test Item Value Reference Range Interpretation Comments UA WBC (test code = no gt See_Comment [Automa suze message] The UA WBC) system which ge nerated this result transmit suze reference range : <=5. The reference range was not used to interpr et this result as anselmo l/abnormal. [facility] AND [id number] 19:20:00 Test Item Value Reference Range Interpretation Comments UA Amorph Dahlia (test code = UA Few /HPF Amorph Dahlia) [id number] 19:20:00 Test Item Value Reference Range Interpretation Comments U Amph Scr (test code Negative *NA*(05/04/22 = U Amph Scr) 1:20 PM) [facility] [id number] 19:20:00 Test Item Value Reference Range Interpretation Comments U Sruthi Scr (test code Negative *NA*(05/04/22 = U Sruthi Scr) 1:20 PM) [facility] [id number] 19:20:00 Test Item Value Reference Range Interpretation Comments U Benzodiaz Scr (test Negative *NA*(05/04/22 code = U Benzodiaz Scr) 1:20 PM) [facility] [id number] 19:20:00 Test Item Value Reference Range Interpretation Comments U Cocaine Scr (test Negative *NA*(05/04/22 code = U Cocaine Scr) 1:20 PM) [facility] [id number] 19:20:00 Test Item Value Reference Range Interpretation Comments U Cannab Scr (test Negative *NA*(05/04/22 code = U Cannab Scr) 1:20 PM) [id number] 19:20:00 Test Item Value Reference Range Interpretation Comments U Opiate Scr (test Negative *NA*(05/04/22 code = U Opiate Scr) 1:20 PM) [facility] [id number] 19:20:00 Test Item Value Reference Range Interpretation Comments U Phencyclidine Scr (test Negative code = U Phencyclidine *NA*(05/04/22 1:20 Scr) PM) [facility] [id number] 19:20:00 Test Item Value Reference Range Interpretation Comments UDS Note (test code = See Note *NA*(05/04/22 UDS Note) 1:20 PM) [facility]annDR[facility] [id number] 19:20:00 Test Item Value Reference Range Interpretation Comments U Amph Scr (test code Negative *NA*(05/04/22 = U Amph Scr) 1:20 PM) [facility]annDR[facility] [id number] 19:20:00 Test Item Value Reference Range Interpretation Comments U Sruthi Scr (test code Negative *NA*(05/04/22 = U Sruthi Scr) 1:20 PM) [facility]annDR[facility] [id number] 19:20:00 Test Item Value Reference Range Interpretation Comments U Benzodiaz Scr (test Negative *NA*(05/04/22 code = U Benzodiaz Scr) 1:20 PM) [facility]annDR[facility] [id number] 19:20:00 Test Item Value Reference Range Interpretation Comments U Cocaine Scr (test Negative *NA*(05/04/22 code = U Cocaine Scr) 1:20 PM) [facility] [id number] 19:20:00 Test Item Value Reference Range Interpretation Comments U Cannab Scr (test Negative *NA*(05/04/22 code = U Cannab Scr) 1:20 PM) [facility] [id number] 19:20:00 Test Item Value Reference Range Interpretation Comments U Opiate Scr (test Negative *NA*(05/04/22 code = U Opiate Scr) 1:20 PM) [facility]DR[facility] [id number] 19:20:00 Test Item Value Reference Range Interpretation Comments U Phencyclidine Scr (test Negative code = U Phencyclidine *NA*(05/04/22 1:20 Scr) PM) [facility] [id number] 19:20:00 Test Item Value Reference Range Interpretation Comments UDS Note (test code = See Note *NA*(05/04/22 UDS Note) 1:20 PM) [facility] [id number] 19:20:00 Test Item Value Reference Range Interpretation Comments UA Color (test code = Yellow *NA*(05/04/22 UA Color) 1:20 PM) [facility] [id number] 19:20:00 Test Item Value Reference Range Interpretation Comments UA Turbidity (test code Slight Cloudy = UA Turbidity) (05/04/22 1:20 PM) [facility] [id number] 19:20:00 Test Item Value Reference Range Interpretation Comments UA Spec Grav (test code = UA Spec 1.015 1 Grav) [facility] [id number] 19:20:00 Test Item Value Reference Range Interpretation Comments UA pH (test code = UA pH) 8.0 1 5.0-8.0 [facility] [id number] 19:20:00 Test Item Value Reference Range Interpretation Comments UA Protein (test code = UA Negative mg/dL Protein) [facility] [id number] 19:20:00 Test Item Value Reference Range Interpretation Comments UA Glucose (test code = UA Negative mg/dL Glucose) [facility] [id number] 19:20:00 Test Item Value Reference Range Interpretation Comments UA Ketones (test code = UA Negative mg/dL Ketones) [facility] [id number] 19:20:00 Test Item Value Reference Range Interpretation Comments UA Bili (test code = Negative *NA*(05/04/22 UA Bili) 1:20 PM) [facility] [id number] 19:20:00 Test Item Value Reference Range Interpretation Comments UA Blood (test code = Negative (05/04/22 1:20 UA Blood) PM) [facility] [id number] 19:20:00 Test Item Value Reference Range Interpretation Comments UA Urobilinogen (test code = UA 0.2 0.1-1.0 Urobilinogen) [facility] AND [id number] 19:20:00 Test Item Value Reference Range Interpretation Comments UA Nitrite (test code Negative (05/04/22 1:20 = UA Nitrite) PM) [facility] AND [id number] 19:20:00 Test Item Value Reference Range Interpretation Comments UA Leuk Est (test Negative (05/04/22 1:20 code = UA Leuk Est) PM) [facility] AND [id number] 19:20:00 Test Item Value Reference Range Interpretation Comments UA Sq Epi (test code = UA Sq Occasional /LPF Epi) [facility] AND [id number] 19:20:00 Test Item Value Reference Range Interpretation Comments UA WBC (test code = no gt See_Comment [Automa suze message] The UA WBC) system which ge nerated this result transmit suze reference range : <=5. The reference range was not used to interpr et this result as anselmo l/abnormal. [facility] AND [id number] 19:20:00 Test Item Value Reference Range Interpretation Comments UA Amorph Dahlia (test code = UA Few /HPF Amorph Dahlia) [facility] [id number] 19:20:00 Test Item Value Reference Range Interpretation Comments U Amph Scr (test code Negative *NA*(05/04/22 = U Amph Scr) 1:20 PM) [facility] [id number] 19:20:00 Test Item Value Reference Range Interpretation Comments U Sruthi Scr (test code Negative *NA*(05/04/22 = U Sruthi Scr) 1:20 PM) [facility] [id number] 19:20:00 Test Item Value Reference Range Interpretation Comments U Benzodiaz Scr (test Negative *NA*(05/04/22 code = U Benzodiaz Scr) 1:20 PM) [facility] [id number] 19:20:00 Test Item Value Reference Range Interpretation Comments U Cocaine Scr (test Negative *NA*(05/04/22 code = U Cocaine Scr) 1:20 PM) [facility] [id number] 19:20:00 Test Item Value Reference Range Interpretation Comments U Cannab Scr (test Negative *NA*(05/04/22 code = U Cannab Scr) 1:20 PM) [facility] [id number] 19:20:00 Test Item Value Reference Range Interpretation Comments U Opiate Scr (test Negative *NA*(05/04/22 code = U Opiate Scr) 1:20 PM) [facility] [id number] 19:20:00 Test Item Value Reference Range Interpretation Comments U Phencyclidine Scr (test Negative code = U Phencyclidine *NA*(05/04/22 1:20 Scr) PM) [facility] [id number] 19:20:00 Test Item Value Reference Range Interpretation Comments UDS Note (test code = See Note *NA*(05/04/22 UDS Note) 1:20 PM) [facility] [id number] 19:20:00 Test Item Value Reference Range Interpretation Comments U Amph Scr (test code Negative *NA*(05/04/22 = U Amph Scr) 1:20 PM) [facility] [id number] 19:20:00 Test Item Value Reference Range Interpretation Comments U Sruthi Scr (test code Negative *NA*(05/04/22 = U Sruthi Scr) 1:20 PM) [facility] [id number] 19:20:00 Test Item Value Reference Range Interpretation Comments U Benzodiaz Scr (test Negative *NA*(05/04/22 code = U Benzodiaz Scr) 1:20 PM) [facility]DR[facility] [id number] 19:20:00 Test Item Value Reference Range Interpretation Comments U Cocaine Scr (test Negative *NA*(05/04/22 code = U Cocaine Scr) 1:20 PM) [facility] [id number] 19:20:00 Test Item Value Reference Range Interpretation Comments U Cannab Scr (test Negative *NA*(05/04/22 code = U Cannab Scr) 1:20 PM) [facility]DR[facility] [id number] 19:20:00 Test Item Value Reference Range Interpretation Comments U Opiate Scr (test Negative *NA*(05/04/22 code = U Opiate Scr) 1:20 PM) [facility] [id number] 19:20:00 Test Item Value Reference Range Interpretation Comments U Phencyclidine Scr (test Negative code = U Phencyclidine *NA*(05/04/22 1:20 Scr) PM) [facility] [id number] 19:20:00 Test Item Value Reference Range Interpretation Comments UDS Note (test code = See Note *NA*(05/04/22 UDS Note) 1:20 PM) [facility] [id number] 19:20:00 Test Item Value Reference Range Interpretation Comments UA Color (test code = Yellow *NA*(05/04/22 UA Color) 1:20 PM) [facility] [id number] 19:20:00 Test Item Value Reference Range Interpretation Comments UA Turbidity (test code Slight Cloudy = UA Turbidity) (05/04/22 1:20 PM) [facility] [id number] 19:20:00 Test Item Value Reference Range Interpretation Comments UA Spec Grav (test code = UA Spec 1.015 1 Grav) [facility] [id number] 19:20:00 Test Item Value Reference Range Interpretation Comments UA pH (test code = UA pH) 8.0 1 5.0-8.0 [facility] [id number] 19:20:00 Test Item Value Reference Range Interpretation Comments UA Protein (test code = UA Negative mg/dL Protein) [facility] [id number] 19:20:00 Test Item Value Reference Range Interpretation Comments UA Glucose (test code = UA Negative mg/dL Glucose) [facility] [id number] 19:20:00 Test Item Value Reference Range Interpretation Comments UA Ketones (test code = UA Negative mg/dL Ketones) [facility] [id number] 19:20:00 Test Item Value Reference Range Interpretation Comments UA Bili (test code = Negative *NA*(05/04/22 UA Bili) 1:20 PM) [facility] [id number] 19:20:00 Test Item Value Reference Range Interpretation Comments UA Blood (test code = Negative (05/04/22 1:20 UA Blood) PM) [facility] [id number] 19:20:00 Test Item Value Reference Range Interpretation Comments UA Urobilinogen (test code = UA 0.2 0.1-1.0 Urobilinogen) [facility] AND [id number] 19:20:00 Test Item Value Reference Range Interpretation Comments UA Nitrite (test code Negative (05/04/22 1:20 = UA Nitrite) PM) [facility] AND [id number] 19:20:00 Test Item Value Reference Range Interpretation Comments UA Leuk Est (test Negative (05/04/22 1:20 code = UA Leuk Est) PM) [facility] AND [id number] 19:20:00 Test Item Value Reference Range Interpretation Comments UA Sq Epi (test code = UA Sq Occasional /LPF Epi) [facility] AND [id number] 19:20:00 Test Item Value Reference Range Interpretation Comments UA WBC (test code = no gt See_Comment [Automa suze message] The UA WBC) system which ge nerated this result transmit suze reference range : <=5. The reference range was not used to interpr et this result as anselmo l/abnormal. [facility] AND [id number] 19:20:00 Test Item Value Reference Range Interpretation Comments UA Amorph Dahlia (test code = UA Few /HPF Amorph Dahlia) [facility] [id number] 19:20:00 Test Item Value Reference Range Interpretation Comments U Amph Scr (test code Negative *NA*(05/04/22 = U Amph Scr) 1:20 PM) [facility] [id number] 19:20:00 Test Item Value Reference Range Interpretation Comments U Sruthi Scr (test code Negative *NA*(05/04/22 = U Sruthi Scr) 1:20 PM) [facility] [id number] 19:20:00 Test Item Value Reference Range Interpretation Comments U Benzodiaz Scr (test Negative *NA*(05/04/22 code = U Benzodiaz Scr) 1:20 PM) [facility] [id number] 19:20:00 Test Item Value Reference Range Interpretation Comments U Cocaine Scr (test Negative *NA*(05/04/22 code = U Cocaine Scr) 1:20 PM) [facility] [id number] 19:20:00 Test Item Value Reference Range Interpretation Comments U Cannab Scr (test Negative *NA*(05/04/22 code = U Cannab Scr) 1:20 PM) [facility] [id number] 19:20:00 Test Item Value Reference Range Interpretation Comments U Opiate Scr (test Negative *NA*(05/04/22 code = U Opiate Scr) 1:20 PM) [facility] [id number] 19:20:00 Test Item Value Reference Range Interpretation Comments U Phencyclidine Scr (test Negative code = U Phencyclidine *NA*(05/04/22 1:20 Scr) PM) [facility] [id number] 19:20:00 Test Item Value Reference Range Interpretation Comments UDS Note (test code = See Note *NA*(05/04/22 UDS Note) 1:20 PM) [facility] [id number] 19:20:00 Test Item Value Reference Range Interpretation Comments U Amph Scr (test code Negative *NA*(05/04/22 = U Amph Scr) 1:20 PM) [facility] [id number] 19:20:00 Test Item Value Reference Range Interpretation Comments U Sruthi Scr (test code Negative *NA*(05/04/22 = U Sruthi Scr) 1:20 PM) [facility]annDR[facility] [id number] 19:20:00 Test Item Value Reference Range Interpretation Comments U Benzodiaz Scr (test Negative *NA*(05/04/22 code = U Benzodiaz Scr) 1:20 PM) [facility]annDR[facility] [id number] 19:20:00 Test Item Value Reference Range Interpretation Comments U Cocaine Scr (test Negative *NA*(05/04/22 code = U Cocaine Scr) 1:20 PM) [facility]annDR[facility] [id number] 19:20:00 Test Item Value Reference Range Interpretation Comments U Cannab Scr (test Negative *NA*(05/04/22 code = U Cannab Scr) 1:20 PM) [facility]annDR[facility] [id number] 19:20:00 Test Item Value Reference Range Interpretation Comments U Opiate Scr (test Negative *NA*(05/04/22 code = U Opiate Scr) 1:20 PM) [facility] [id number] 19:20:00 Test Item Value Reference Range Interpretation Comments U Phencyclidine Scr (test Negative code = U Phencyclidine *NA*(05/04/22 1:20 Scr) PM) [facility] [id number] 19:20:00 Test Item Value Reference Range Interpretation Comments UDS Note (test code = See Note *NA*(05/04/22 UDS Note) 1:20 PM) [facility] [id number] 19:20:00 Test Item Value Reference Range Interpretation Comments UA Color (test code = Yellow *NA*(05/04/22 UA Color) 1:20 PM) [facility] [id number] 19:20:00 Test Item Value Reference Range Interpretation Comments UA Turbidity (test code Slight Cloudy = UA Turbidity) (05/04/22 1:20 PM) [facility] [id number] 19:20:00 Test Item Value Reference Range Interpretation Comments UA Spec Grav (test code = UA Spec 1.015 1 Grav) [facility] [id number] 19:20:00 Test Item Value Reference Range Interpretation Comments UA pH (test code = UA pH) 8.0 1 5.0-8.0 [facility] [id number] 19:20:00 Test Item Value Reference Range Interpretation Comments UA Protein (test code = UA Negative mg/dL Protein) [facility] [id number] 19:20:00 Test Item Value Reference Range Interpretation Comments UA Glucose (test code = UA Negative mg/dL Glucose) [facility] [id number] 19:20:00 Test Item Value Reference Range Interpretation Comments UA Ketones (test code = UA Negative mg/dL Ketones) [facility] [id number] 19:20:00 Test Item Value Reference Range Interpretation Comments UA Bili (test code = Negative *NA*(05/04/22 UA Bili) 1:20 PM) [facility] [id number] 19:20:00 Test Item Value Reference Range Interpretation Comments UA Blood (test code = Negative (05/04/22 1:20 UA Blood) PM) [facility] [id number] 19:20:00 Test Item Value Reference Range Interpretation Comments UA Urobilinogen (test code = UA 0.2 0.1-1.0 Urobilinogen) [facility] AND [id number] 19:20:00 Test Item Value Reference Range Interpretation Comments UA Nitrite (test code Negative (05/04/22 1:20 = UA Nitrite) PM) [facility] AND [id number] 19:20:00 Test Item Value Reference Range Interpretation Comments UA Leuk Est (test Negative (05/04/22 1:20 code = UA Leuk Est) PM) [facility] AND [id number] 19:20:00 Test Item Value Reference Range Interpretation Comments UA Sq Epi (test code = UA Sq Occasional /LPF Epi) [facility] AND [id number] 19:20:00 Test Item Value Reference Range Interpretation Comments UA WBC (test code = no gt See_Comment [Automa suze message] The UA WBC) system which ge nerated this result transmit suze reference range : <=5. The reference range was not used to interpr et this result as anselmo l/abnormal. [facility] AND [id number] 19:20:00 Test Item Value Reference Range Interpretation Comments UA Amorph Dahlia (test code = UA Few /HPF Amorph Dahlia) [facility] [id number] 19:20:00 Test Item Value Reference Range Interpretation Comments U Amph Scr (test code Negative *NA*(05/04/22 = U Amph Scr) 1:20 PM) [facility] [id number] 19:20:00 Test Item Value Reference Range Interpretation Comments U Sruthi Scr (test code Negative *NA*(05/04/22 = U Sruthi Scr) 1:20 PM) [facility] [id number] 19:20:00 Test Item Value Reference Range Interpretation Comments U Benzodiaz Scr (test Negative *NA*(05/04/22 code = U Benzodiaz Scr) 1:20 PM) [facility] [id number] 19:20:00 Test Item Value Reference Range Interpretation Comments U Cocaine Scr (test Negative *NA*(05/04/22 code = U Cocaine Scr) 1:20 PM) [facility] [id number] 19:20:00 Test Item Value Reference Range Interpretation Comments U Cannab Scr (test Negative *NA*(05/04/22 code = U Cannab Scr) 1:20 PM) [facility] [id number] 19:20:00 Test Item Value Reference Range Interpretation Comments U Opiate Scr (test Negative *NA*(05/04/22 code = U Opiate Scr) 1:20 PM) [facility] [id number] 19:20:00 Test Item Value Reference Range Interpretation Comments U Phencyclidine Scr (test Negative code = U Phencyclidine *NA*(05/04/22 1:20 Scr) PM) [facility] Cen[id number] 19:20:00 Test Item Value Reference Range Interpretation Comments UDS Note (test code = See Note *NA*(05/04/22 UDS Note) 1:20 PM) [facility]annDR[facility] [id number] 19:20:00 Test Item Value Reference Range Interpretation Comments U Amph Scr (test code Negative *NA*(05/04/22 = U Amph Scr) 1:20 PM) [facility] [id number] 19:20:00 Test Item Value Reference Range Interpretation Comments U Sruthi Scr (test code Negative *NA*(05/04/22 = U Sruthi Scr) 1:20 PM) [facility]DR[facility] [id number] 19:20:00 Test Item Value Reference Range Interpretation Comments U Benzodiaz Scr (test Negative *NA*(05/04/22 code = U Benzodiaz Scr) 1:20 PM) [facility] [id number] 19:20:00 Test Item Value Reference Range Interpretation Comments U Cocaine Scr (test Negative *NA*(05/04/22 code = U Cocaine Scr) 1:20 PM) [facility] [id number] 19:20:00 Test Item Value Reference Range Interpretation Comments U Cannab Scr (test Negative *NA*(05/04/22 code = U Cannab Scr) 1:20 PM) [facility] [id number] 19:20:00 Test Item Value Reference Range Interpretation Comments U Opiate Scr (test Negative *NA*(05/04/22 code = U Opiate Scr) 1:20 PM) [facility] [id number] 19:20:00 Test Item Value Reference Range Interpretation Comments U Phencyclidine Scr (test Negative code = U Phencyclidine *NA*(05/04/22 1:20 Scr) PM) [facility] [id number] 19:20:00 Test Item Value Reference Range Interpretation Comments UDS Note (test code = See Note *NA*(05/04/22 UDS Note) 1:20 PM) [facility] [id number] 19:20:00 Test Item Value Reference Range Interpretation Comments UA Color (test code = Yellow *NA*(05/04/22 UA Color) 1:20 PM) [facility] [id number] 19:20:00 Test Item Value Reference Range Interpretation Comments UA Turbidity (test code Slight Cloudy = UA Turbidity) (05/04/22 1:20 PM) [facility] [id number] 19:20:00 Test Item Value Reference Range Interpretation Comments UA Spec Grav (test code = UA Spec 1.015 1 Grav) [facility] [id number] 19:20:00 Test Item Value Reference Range Interpretation Comments UA pH (test code = UA pH) 8.0 1 5.0-8.0 [facility] [id number] 19:20:00 Test Item Value Reference Range Interpretation Comments UA Protein (test code = UA Negative mg/dL Protein) [facility] [id number] 19:20:00 Test Item Value Reference Range Interpretation Comments UA Glucose (test code = UA Negative mg/dL Glucose) [facility] [id number] 19:20:00 Test Item Value Reference Range Interpretation Comments UA Ketones (test code = UA Negative mg/dL Ketones) [facility] [id number] 19:20:00 Test Item Value Reference Range Interpretation Comments UA Bili (test code = Negative *NA*(05/04/22 UA Bili) 1:20 PM) [facility] [id number] 19:20:00 Test Item Value Reference Range Interpretation Comments UA Blood (test code = Negative (05/04/22 1:20 UA Blood) PM) [facility] [id number] 19:20:00 Test Item Value Reference Range Interpretation Comments UA Urobilinogen (test code = UA 0.2 0.1-1.0 [facility]ogen) [facility] [id number] 19:20:00 Test Item Value Reference Range Interpretation Comments UA Nitrite (test code Negative (05/04/22 1:20 = UA Nitrite) PM) [facility] AND [id number] 19:20:00 Test Item Value Reference Range Interpretation Comments UA Leuk Est (test Negative (05/04/22 1:20 code = UA Leuk Est) PM) [facility] AND [id number] 19:20:00 Test Item Value Reference Range Interpretation Comments UA Sq Epi (test code = UA Sq Occasional /LPF Epi) [facility] AND [id number] 19:20:00 Test Item Value Reference Range Interpretation Comments UA WBC (test code = no gt See_Comment [Automa suze message] The UA WBC) system which ge nerated this result transmit suze reference range : <=5. The reference range was not used to interpr et this result as anselmo l/abnormal. [facility] AND [id number] 19:20:00 Test Item Value Reference Range Interpretation Comments UA Amorph Dahlia (test code = UA Few /HPF Amorph Dahlia) [facility] AND [id number] 19:20:00 Test Item Value Reference Range Interpretation Comments UA Color (test code = Yellow *NA*(05/04/22 UA Color) 1:20 PM) [facility] AND [id number] 19:20:00 Test Item Value Reference Range Interpretation Comments UA Turbidity (test code Slight Cloudy = UA Turbidity) (05/04/22 1:20 PM) [facility] AND [id number] 19:20:00 Test Item Value Reference Range Interpretation Comments UA Spec Grav (test code = UA Spec 1.015 1 Grav) [facility] AND [id number] 19:20:00 Test Item Value Reference Range Interpretation Comments UA pH (test code = UA pH) 8.0 1 5.0-8.0 [facility] AND [id number] 19:20:00 Test Item Value Reference Range Interpretation Comments UA Protein (test code = UA Negative mg/dL Protein) [facility] AND [id number] 19:20:00 Test Item Value Reference Range Interpretation Comments UA Glucose (test code = UA Negative mg/dL Glucose) [facility] AND [id number] 19:20:00 Test Item Value Reference Range Interpretation Comments UA Ketones (test code = UA Negative mg/dL Ketones) [facility] [id number] 19:20:00 Test Item Value Reference Range Interpretation Comments UA Bili (test code = Negative *NA*(05/04/22 UA Bili) 1:20 PM) [facility] [id number] 19:20:00 Test Item Value Reference Range Interpretation Comments UA Blood (test code = Negative (05/04/22 1:20 UA Blood) PM) [facility] [id number] 19:20:00 Test Item Value Reference Range Interpretation Comments UA Urobilinogen (test code = UA 0.2 0.1-1.0 Urobilinogen) [facility] [id number] 19:20:00 Test Item Value Reference Range Interpretation Comments UA Nitrite (test code Negative (05/04/22 1:20 = UA Nitrite) PM) [facility] AND [id number] 19:20:00 Test Item Value Reference Range Interpretation Comments UA Leuk Est (test Negative (05/04/22 1:20 code = UA Leuk Est) PM) [facility] AND [id number] 19:20:00 Test Item Value Reference Range Interpretation Comments UA Sq Epi (test code = UA Sq Occasional /LPF Epi) [facility] AND [id number] 19:20:00 Test Item Value Reference Range Interpretation Comments UA WBC (test code = no gt See_Comment [Automa suze message] The UA WBC) system which ge nerated this result transmit suze reference range : <=5. The reference range was not used to interpr et this result as anselmo l/abnormal. [facility] [id number] 19:20:00 Test Item Value Reference Range Interpretation Comments UA Amorph Dahlia (test code = UA Few /HPF Amorph Dahlia) [id number] 19:20:00 Test Item Value Reference Range Interpretation Comments U Amph Scr (test code Negative *NA*(05/04/22 = U Amph Scr) 1:20 PM) [id number] 19:20:00 Test Item Value Reference Range Interpretation Comments U Sruthi Scr (test code Negative *NA*(05/04/22 = U Sruthi Scr) 1:20 PM) [facility] [id number] 19:20:00 Test Item Value Reference Range Interpretation Comments U Benzodiaz Scr (test Negative *NA*(05/04/22 code = U Benzodiaz Scr) 1:20 PM) [facility] [id number] 19:20:00 Test Item Value Reference Range Interpretation Comments U Cocaine Scr (test Negative *NA*(05/04/22 code = U Cocaine Scr) 1:20 PM) [facility] [id number] 19:20:00 Test Item Value Reference Range Interpretation Comments U Cannab Scr (test Negative *NA*(05/04/22 code = U Cannab Scr) 1:20 PM) [facility] [id number] 19:20:00 Test Item Value Reference Range Interpretation Comments U Opiate Scr (test Negative *NA*(05/04/22 code = U Opiate Scr) 1:20 PM) [facility] [id number] 19:20:00 Test Item Value Reference Range Interpretation Comments U Phencyclidine Scr (test Negative code = U Phencyclidine *NA*(05/04/22 1:20 Scr) PM) [facility] [id number] 19:20:00 Test Item Value Reference Range Interpretation Comments UDS Note (test code = See Note *NA*(05/04/22 UDS Note) 1:20 PM) [facility] [id number] 19:20:00 Test Item Value Reference Range Interpretation Comments U Amph Scr (test code Negative *NA*(05/04/22 = U Amph Scr) 1:20 PM) [facility] [id number] 19:20:00 Test Item Value Reference Range Interpretation Comments U Sruthi Scr (test code Negative *NA*(05/04/22 = U Sruthi Scr) 1:20 PM) [facility] [id number] 19:20:00 Test Item Value Reference Range Interpretation Comments U Benzodiaz Scr (test Negative *NA*(05/04/22 code = U Benzodiaz Scr) 1:20 PM) [facility] [id number] 19:20:00 Test Item Value Reference Range Interpretation Comments U Cocaine Scr (test Negative *NA*(05/04/22 code = U Cocaine Scr) 1:20 PM) [facility] [id number] 19:20:00 Test Item Value Reference Range Interpretation Comments U Cannab Scr (test Negative *NA*(05/04/22 code = U Cannab Scr) 1:20 PM) [facility] [id number] 19:20:00 Test Item Value Reference Range Interpretation Comments U Opiate Scr (test Negative *NA*(05/04/22 code = U Opiate Scr) 1:20 PM) [facility] [id number] 19:20:00 Test Item Value Reference Range Interpretation Comments U Phencyclidine Scr (test Negative code = U Phencyclidine *NA*(05/04/22 1:20 Scr) PM) [facility] [id number] 19:20:00 Test Item Value Reference Range Interpretation Comments UDS Note (test code = See Note *NA*(05/04/22 UDS Note) 1:20 PM) [facility] [id number] 19:20:00 Test Item Value Reference Range Interpretation Comments UA Color (test code = Yellow *NA*(05/04/22 UA Color) 1:20 PM) [facility] [id number] 19:20:00 Test Item Value Reference Range Interpretation Comments UA Turbidity (test code Slight Cloudy = UA Turbidity) (05/04/22 1:20 PM) [facility] [id number] 19:20:00 Test Item Value Reference Range Interpretation Comments UA Spec Grav (test code = UA Spec 1.015 1 Grav) [facility] [id number] 19:20:00 Test Item Value Reference Range Interpretation Comments UA pH (test code = UA pH) 8.0 1 5.0-8.0 [facility] [id number] 19:20:00 Test Item Value Reference Range Interpretation Comments UA Protein (test code = UA Negative mg/dL Protein) [facility] [id number] 19:20:00 Test Item Value Reference Range Interpretation Comments UA Glucose (test code = UA Negative mg/dL Glucose) [facility] [id number] 19:20:00 Test Item Value Reference Range Interpretation Comments UA Ketones (test code = UA Negative mg/dL Ketones) [facility] AND [id number] 19:20:00 Test Item Value Reference Range Interpretation Comments UA Bili (test code = Negative *NA*(05/04/22 UA Bili) 1:20 PM) [facility] AND [id number] 19:20:00 Test Item Value Reference Range Interpretation Comments UA Blood (test code = Negative (05/04/22 1:20 UA Blood) PM) [facility] AND [id number] 19:20:00 Test Item Value Reference Range Interpretation Comments UA Urobilinogen (test code = UA 0.2 0.1-1.0 Urobilinogen) [facility] AND [id number] 19:20:00 Test Item Value Reference Range Interpretation Comments UA Nitrite (test code Negative (05/04/22 1:20 = UA Nitrite) PM) [facility] AND [id number] 19:20:00 Test Item Value Reference Range Interpretation Comments UA Leuk Est (test Negative (05/04/22 1:20 code = UA Leuk Est) PM) [facility] AND [id number] 19:20:00 Test Item Value Reference Range Interpretation Comments UA Sq Epi (test code = UA Sq Occasional /LPF Epi) [facility] AND [id number] 19:20:00 Test Item Value Reference Range Interpretation Comments UA WBC (test code = no gt See_Comment [Automa suze message] The UA WBC) system which ge nerated this result transmit suze reference range : <=5. The reference range was not used to interpr et this result as anselmo l/abnormal. [facility] AND [id number] 19:20:00 Test Item Value Reference Range Interpretation Comments UA Amorph Dahlia (test code = UA Few /HPF Amorph Dahlia) [facility] AND [id number] 19:20:00 Test Item Value Reference Range Interpretation Comments UA Color (test code = Yellow *NA*(05/04/22 UA Color) 1:20 PM) [facility] AND [id number] 19:20:00 Test Item Value Reference Range Interpretation Comments UA Turbidity (test code Slight Cloudy = UA Turbidity) (05/04/22 1:20 PM) [facility] AND [id number] 19:20:00 Test Item Value Reference Range Interpretation Comments UA Spec Grav (test code = UA Spec 1.015 1 Grav) [facility] AND [id number] 19:20:00 Test Item Value Reference Range Interpretation Comments UA pH (test code = UA pH) 8.0 1 5.0-8.0 [facility] AND [id number] 19:20:00 Test Item Value Reference Range Interpretation Comments UA Protein (test code = UA Negative mg/dL Protein) [facility] AND [id number] 19:20:00 Test Item Value Reference Range Interpretation Comments UA Glucose (test code = UA Negative mg/dL Glucose) [facility] AND [id number] 19:20:00 Test Item Value Reference Range Interpretation Comments UA Ketones (test code = UA Negative mg/dL Ketones) [facility] AND [id number] 19:20:00 Test Item Value Reference Range Interpretation Comments UA Bili (test code = Negative *NA*(05/04/22 UA Bili) 1:20 PM) [facility] AND [id number] 19:20:00 Test Item Value Reference Range Interpretation Comments UA Blood (test code = Negative (05/04/22 1:20 UA Blood) PM) [facility] AND [id number] 19:20:00 Test Item Value Reference Range Interpretation Comments UA Urobilinogen (test code = UA 0.2 0.1-1.0 Urobilinogen) [facility] AND [id number] 19:20:00 Test Item Value Reference Range Interpretation Comments UA Nitrite (test code Negative (05/04/22 1:20 = UA Nitrite) PM) [facility] AND [id number] 19:20:00 Test Item Value Reference Range Interpretation Comments UA Leuk Est (test Negative (05/04/22 1:20 code = UA Leuk Est) PM) [facility] AND [id number] 19:20:00 Test Item Value Reference Range Interpretation Comments UA Sq Epi (test code = UA Sq Occasional /LPF Epi) [facility] AND [id number] 19:20:00 Test Item Value Reference Range Interpretation Comments UA WBC (test code = no gt See_Comment [Automa suze message] The UA WBC) system which ge nerated this result transmit suze reference range : <=5. The reference range was not used to interpr et this result as anselmo l/abnormal. [facility] [id number] 19:20:00 Test Item Value Reference Range Interpretation Comments UA Amorph Dahlia (test code = UA Few /HPF Amorph Dahlia) [id number] 19:20:00 Test Item Value Reference Range Interpretation Comments U Amph Scr (test code Negative *NA*(05/04/22 = U Amph Scr) 1:20 PM) [facility] [id number] 19:20:00 Test Item Value Reference Range Interpretation Comments U Sruthi Scr (test code Negative *NA*(05/04/22 = U Sruthi Scr) 1:20 PM) [facility] [id number] 19:20:00 Test Item Value Reference Range Interpretation Comments U Benzodiaz Scr (test Negative *NA*(05/04/22 code = U Benzodiaz Scr) 1:20 PM) [facility] [id number] 19:20:00 Test Item Value Reference Range Interpretation Comments U Cocaine Scr (test Negative *NA*(05/04/22 code = U Cocaine Scr) 1:20 PM) [id number] 19:20:00 Test Item Value Reference Range Interpretation Comments U Cannab Scr (test Negative *NA*(05/04/22 code = U Cannab Scr) 1:20 PM) [facility] [id number] 19:20:00 Test Item Value Reference Range Interpretation Comments U Opiate Scr (test Negative *NA*(05/04/22 code = U Opiate Scr) 1:20 PM) [facility] [id number] 19:20:00 Test Item Value Reference Range Interpretation Comments U Phencyclidine Scr (test Negative code = U Phencyclidine *NA*(05/04/22 1:20 Scr) PM) [facility] [id number] 19:20:00 Test Item Value Reference Range Interpretation Comments UDS Note (test code = See Note *NA*(05/04/22 UDS Note) 1:20 PM) [facility] [id number] 19:20:00 Test Item Value Reference Range Interpretation Comments U Amph Scr (test code Negative *NA*(05/04/22 = U Amph Scr) 1:20 PM) [facility] [id number] 19:20:00 Test Item Value Reference Range Interpretation Comments U Sruthi Scr (test code Negative *NA*(05/04/22 = U Sruthi Scr) 1:20 PM) [facility] [id number] 19:20:00 Test Item Value Reference Range Interpretation Comments U Benzodiaz Scr (test Negative *NA*(05/04/22 code = U Benzodiaz Scr) 1:20 PM) [facility] [id number] 19:20:00 Test Item Value Reference Range Interpretation Comments U Cocaine Scr (test Negative *NA*(05/04/22 code = U Cocaine Scr) 1:20 PM) [facility] [id number] 19:20:00 Test Item Value Reference Range Interpretation Comments U Cannab Scr (test Negative *NA*(05/04/22 code = U Cannab Scr) 1:20 PM) [facility] [id number] 19:20:00 Test Item Value Reference Range Interpretation Comments U Opiate Scr (test Negative *NA*(05/04/22 code = U Opiate Scr) 1:20 PM) [facility] [id number] 19:20:00 Test Item Value Reference Range Interpretation Comments U Phencyclidine Scr (test Negative code = U Phencyclidine *NA*(05/04/22 1:20 Scr) PM) [facility] [id number] 19:20:00 Test Item Value Reference Range Interpretation Comments UDS Note (test code = See Note *NA*(05/04/22 UDS Note) 1:20 PM) [facility] [id number] 19:20:00 Test Item Value Reference Range Interpretation Comments UA Color (test code = Yellow *NA*(05/04/22 UA Color) 1:20 PM) [facility] [id number] 19:20:00 Test Item Value Reference Range Interpretation Comments UA Turbidity (test code Slight Cloudy = UA Turbidity) (05/04/22 1:20 PM) [facility] [id number] 19:20:00 Test Item Value Reference Range Interpretation Comments UA Spec Grav (test code = UA Spec 1.015 1 Grav) [facility] AND [id number] 19:20:00 Test Item Value Reference Range Interpretation Comments UA pH (test code = UA pH) 8.0 1 5.0-8.0 [facility] AND [id number] 19:20:00 Test Item Value Reference Range Interpretation Comments UA Protein (test code = UA Negative mg/dL Protein) [facility] AND [id number] 19:20:00 Test Item Value Reference Range Interpretation Comments UA Glucose (test code = UA Negative mg/dL Glucose) [facility] AND [id number] 19:20:00 Test Item Value Reference Range Interpretation Comments UA Ketones (test code = UA Negative mg/dL Ketones) [facility] AND [id number] 19:20:00 Test Item Value Reference Range Interpretation Comments UA Bili (test code = Negative *NA*(05/04/22 UA Bili) 1:20 PM) [facility] AND [id number] 19:20:00 Test Item Value Reference Range Interpretation Comments UA Blood (test code = Negative (05/04/22 1:20 UA Blood) PM) [facility] AND [id number] 19:20:00 Test Item Value Reference Range Interpretation Comments UA Urobilinogen (test code = UA 0.2 0.1-1.0 Urobilinogen) [facility] AND [id number] 19:20:00 Test Item Value Reference Range Interpretation Comments UA Nitrite (test code Negative (05/04/22 1:20 = UA Nitrite) PM) [facility] AND [id number] 19:20:00 Test Item Value Reference Range Interpretation Comments UA Leuk Est (test Negative (05/04/22 1:20 code = UA Leuk Est) PM) [facility] AND [id number] 19:20:00 Test Item Value Reference Range Interpretation Comments UA Sq Epi (test code = UA Sq Occasional /LPF Epi) [facility] AND [id number] 19:20:00 Test Item Value Reference Range Interpretation Comments UA WBC (test code = no gt See_Comment [Automa suze message] The UA WBC) system which ge nerated this result transmit suze reference range : <=5. The reference range was not used to interpr et this result as anselmo l/abnormal. [facility] AND [id number] 19:20:00 Test Item Value Reference Range Interpretation Comments UA Amorph Dahlia (test code = UA Few /HPF Amorph Dahlia) [facility] [id number] 19:15:00 Test Item Value Reference Range Interpretation Comments Hep C Ab (test code = Hep C Ab) NON-REACTIVE [facility] [id number] 19:15:00 Test Item Value Reference Range Interpretation Comments Hep Signal to Cut-Off (test code = Hep 0.02 1 Signal to Cut-Off) [facility] CenterMiqyeyqIAATUYLKRA2029-53-19 19:15:00 Test Item Value Reference Range Interpretation Comments [facility] HIV 4th GEN (test Negative *NA*(05/04/22 code = CDC HIV 4th 1:15 PM) GEN) [facility] [id number] 19:15:00 Test Item Value Reference Range Interpretation Comments Hep C Ab (test code = Hep C Ab) NON-REACTIVE [facility] [id number] 19:15:00 Test Item Value Reference Range Interpretation Comments Hep Signal to Cut-Off (test code = Hep 0.02 1 Signal to Cut-Off) [facility] [id number] 19:15:00 Test Item Value Reference Range Interpretation Comments [facility] HIV 4th GEN (test Negative *NA*(05/04/22 code = CDC HIV 4th 1:15 PM) GEN) [facility] [id number] 19:15:00 Test Item Value Reference Range Interpretation Comments Hep C Ab (test code = Hep C Ab) NON-REACTIVE [facility] [id number] 19:15:00 Test Item Value Reference Range Interpretation Comments Hep Signal to Cut-Off (test code = Hep 0.02 1 Signal to Cut-Off) [facility] [id number] 19:15:00 Test Item Value Reference Range Interpretation Comments [facility] HIV 4th GEN (test Negative *NA*(05/04/22 code = CDC HIV 4th 1:15 PM) GEN) [facility] [id number] 19:15:00 Test Item Value Reference Range Interpretation Comments Hep C Ab (test code = Hep C Ab) NON-REACTIVE [facility] C[id number] 19:15:00 Test Item Value Reference Range Interpretation Comments Hep Signal to Cut-Off (test code = Hep 0.02 1 Signal to Cut-Off) [facility] [id number] 19:15:00 Test Item Value Reference Range Interpretation Comments [facility] HIV 4th GEN (test Negative *NA*(05/04/22 code = [facility] HIV 4th 1:15 PM) GEN) [facility] [id number] 19:15:00 Test Item Value Reference Range Interpretation Comments Hep C Ab (test code = Hep C Ab) NON-REACTIVE [facility] Cent[id number] 19:15:00 Test Item Value Reference Range Interpretation Comments Hep Signal to Cut-Off (test code = Hep 0.02 1 Signal to Cut-Off) [facility] C[id number] 19:15:00 Test Item Value Reference Range Interpretation Comments [facility] HIV 4th GEN (test Negative *NA*(05/04/22 code = [facility] HIV 4th 1:15 PM) GEN) [facility] CenterRdliylsHQHKKBSWQW7266-01-86 19:15:00 Test Item Value Reference Range Interpretation Comments Hep C Ab (test code = Hep C Ab) NON-REACTIVE [facility] [id number] 19:15:00 Test Item Value Reference Range Interpretation Comments Hep Signal to Cut-Off (test code = Hep 0.02 1 Signal to Cut-Off) [facility] [id number] 19:15:00 Test Item Value Reference Range Interpretation Comments [facility] HIV 4th GEN (test Negative *NA*(05/04/22 code = [facility] HIV 4th 1:15 PM) GEN) [facility] [id number] 19:15:00 Test Item Value Reference Range Interpretation Comments Hep C Ab (test code = Hep C Ab) NON-REACTIVE [facility] [id number] 19:15:00 Test Item Value Reference Range Interpretation Comments Hep Signal to Cut-Off (test code = Hep 0.02 1 Signal to Cut-Off) [facility] CenterIovjsanHNESTNVJEF0555-04-45 19:15:00 Test Item Value Reference Range Interpretation Comments [facility] HIV 4th GEN (test Negative *NA*(05/04/22 code = CDC HIV 4th 1:15 PM) GEN) [facility] [id number] 19:15:00 Test Item Value Reference Range Interpretation Comments Hep C Ab (test code = Hep C Ab) NON-REACTIVE [facility] [id number] 19:15:00 Test Item Value Reference Range Interpretation Comments Hep Signal to Cut-Off (test code = Hep 0.02 1 Signal to Cut-Off) [facility] CenterCfybodiWEJZRMQIFP5115-00-13 19:15:00 Test Item Value Reference Range Interpretation Comments [facility] HIV 4th GEN (test Negative *NA*(05/04/22 code = CDC HIV 4th 1:15 PM) GEN) [facility] [id number] 19:15:00 Test Item Value Reference Range Interpretation Comments Hep C Ab (test code = Hep C Ab) NON-REACTIVE [facility] C[id number] 19:15:00 Test Item Value Reference Range Interpretation Comments Hep Signal to Cut-Off (test code = Hep 0.02 1 Signal to Cut-Off) [facility] [id number] 19:15:00 Test Item Value Reference Range Interpretation Comments [facility] HIV 4th GEN (test Negative *NA*(05/04/22 code = [facility] HIV 4th 1:15 PM) GEN) [place] [id number] 17:53:43 Test Item Value Reference Range Interpretation Comments RADRPT (test code = EXAM: XR CHEST 1 VIEWDATE: RADRPT) 05/04/2022 11:12INDICATION: - ingestionCOMPARISON: NoneTECHNIQUE: AP chestFINDINGS: Lines and tubes: None.Lungs and Pleura: No rob consolidation or other pulmonary or pleural based abnormality is identified. Heart and mediastinum: Unremarkable for acute abnormality.Chest wall: Unremarkable.Bones: No acute bony abnormality is identified.IMPRESSION: No acute abnormality. [place] [id number] 17:53:43 Test Item Value Reference Range Interpretation Comments RADRPT (test code = EXAM: XR CHEST 1 VIEWDATE: RADRPT) 05/04/2022 11:12INDICATION: - ingestionCOMPARISON: NoneTECHNIQUE: AP chestFINDINGS: Lines and tubes: None.Lungs and Pleura: No rob consolidation or other pulmonary or pleural based abnormality is identified. Heart and mediastinum: Unremarkable for acute abnormality.Chest wall: Unremarkable.Bones: No acute bony abnormality is identified.IMPRESSION: No acute abnormality. [facility]km[facility]YRAP[facility]20[facility]98-43 17:53:43 Test Item Value Reference Range Interpretation Comments RADRPT (test code = EXAM: XR CHEST 1 VIEWDATE: RADRPT) 05/04/2022 11:12INDICATION: - ingestionCOMPARISON: NoneTECHNIQUE: AP chestFINDINGS: Lines and tubes: None.Lungs and Pleura: No rob consolidation or other pulmonary or pleural based abnormality is identified. Heart and mediastinum: Unremarkable for acute abnormality.Chest wall: Unremarkable.Bones: No acute bony abnormality is identified.IMPRESSION: No acute abnormality. [place] [id number] 17:53:43 Test Item Value Reference Range Interpretation Comments RADRPT (test code = EXAM: XR CHEST 1 VIEWDATE: RADRPT) 05/04/2022 11:12INDICATION: - ingestionCOMPARISON: NoneTECHNIQUE: AP chestFINDINGS: Lines and tubes: None.Lungs and Pleura: No rob consolidation or other pulmonary or pleural based abnormality is identified. Heart and mediastinum: Unremarkable for acute abnormality.Chest wall: Unremarkable.Bones: No acute bony abnormality is identified.IMPRESSION: No acute abnormality. [place] [id number] 17:53:43 Test Item Value Reference Range Interpretation Comments RADRPT (test code = EXAM: XR CHEST 1 VIEWDATE: RADRPT) 05/04/2022 11:12INDICATION: - ingestionCOMPARISON: NoneTECHNIQUE: AP chestFINDINGS: Lines and tubes: None.Lungs and Pleura: No rob consolidation or other pulmonary or pleural based abnormality is identified. Heart and mediastinum: Unremarkable for acute abnormality.Chest wall: Unremarkable.Bones: No acute bony abnormality is identified.IMPRESSION: No acute abnormality. [facility] HospitalJftzgjhHUBSVZ3679-84-71 17:53:43 Test Item Value Reference Range Interpretation Comments RADRPT (test code = EXAM: XR CHEST 1 VIEWDATE: RADRPT) 05/04/2022 11:12INDICATION: - ingestionCOMPARISON: NoneTECHNIQUE: AP chestFINDINGS: Lines and tubes: None.Lungs and Pleura: No rob consolidation or other pulmonary or pleural based abnormality is identified. Heart and mediastinum: Unremarkable for acute abnormality.Chest wall: Unremarkable.Bones: No acute bony abnormality is identified.IMPRESSION: No acute abnormality. [place] [id number] 17:53:43 Test Item Value Reference Range Interpretation Comments RADRPT (test code = EXAM: XR CHEST 1 VIEWDATE: RADRPT) 05/04/2022 11:12INDICATION: - ingestionCOMPARISON: NoneTECHNIQUE: AP chestFINDINGS: Lines and tubes: None.Lungs and Pleura: No rob consolidation or other pulmonary or pleural based abnormality is identified. Heart and mediastinum: Unremarkable for acute abnormality.Chest wall: Unremarkable.Bones: No acute bony abnormality is identified.IMPRESSION: No acute abnormality. [facility]DihxmguDEWNWCJNKF3842-57-37 17:53:00 Test Item Value Reference Range Interpretation Comments Hct (test code = Hct) 43.9 42.0-54.0 [place] 848172-12-28 17:53:00 Test Item Value Reference Range Interpretation Comments MCV (test code = MCV) 92.4 80.0-94.0 [place] 848172-12-28 17:53:00 Test Item Value Reference Range Interpretation Comments MCH (test code = MCH) 30.6 pg 27.0-31.0 [facility] HospitalHnbcxjhHREFGUYWSO4622-04-72 17:53:00 Test Item Value Reference Range Interpretation Comments MCHC (test code = MCHC) 33.1 32.0-36.0 [facility] HospitalNklsmpdUPKEZNOUJT7117-80-22 17:53:00 Test Item Value Reference Range Interpretation Comments RDW (test code = RDW) 13.5 11.5-14.5 [place] 848172-12-28 17:53:00 Test Item Value Reference Range Interpretation Comments Platelet (test code = Platelet) 229 133-450 [facility] HospitalRoxqwdjJPCXYTKQYQ1644-47-28 17:53:00 Test Item Value Reference Range Interpretation Comments MPV (test code = MPV) 8.6 7.4-10.4 [facility] HospitalNnsyjrrKFIOETNNUK2222-66-59 17:53:00 Test Item Value Reference Range Interpretation Comments Segs (test code = Segs) 72.3 45.0-75.0 [place] 848172-12-28 17:53:00 Test Item Value Reference Range Interpretation Comments Lymphocytes (test code = Lymphocytes) 16.4 20.0-40.0 [place] 848172-12-28 17:53:00 Test Item Value Reference Range Interpretation Comments Monocytes (test code = Monocytes) 7.4 2.0-12.0 [place] 848172-12-28 17:53:00 Test Item Value Reference Range Interpretation Comments Eosinophils (test code = 3.5 See_Comment [A utomated message] The Eosinophils) system which ge nerated this result tra nsmitted reference range : <=4.0. The reference r peri was not used to int erpret this result as normal/abnormal . [place] 848172-12-28 17:53:00 Test Item Value Reference Range Interpretation Comments Basophils (test code = 0.4 See_Comment [Aut omated message] The Basophils) system which ge nerated this result tra nsmitted reference range : <=1.0. The reference r peri was not used to int erpret this result as normal/abnormal . [facility] HospitalPsdckqmMWSOGWCJFQ8090-27-42 17:53:00 Test Item Value Reference Range Interpretation Comments Neutrophils # (test code = Neutrophils 7.1 1.5-8.1 #) [place] 848172-12-28 17:53:00 Test Item Value Reference Range Interpretation Comments Lymphocytes # (test code = Lymphocytes 1.6 1.0-5.5 #) [place] 848172-12-28 17:53:00 Test Item Value Reference Range Interpretation Comments Monocytes # (test code 0.7 See_Comment [Aut omated message] The = Monocytes #) system which generated this result tra nsmitted reference range : <=0.8. The reference r peri was not used to int erpret this result as normal/abnormal . [place] 848172-12-28 17:53:00 Test Item Value Reference Range Interpretation Comments Eosinophils # (test code 0.3 See_Comment [A utomated message] The = Eosinophils #) system whic h generated this result tra nsmitted reference range : <=0.5. The reference r peri was not used to int erpret this result as normal/abnormal . [place] [id number] 17:53:00 Test Item Value Reference Range Interpretation Comments Acetaminoph Lvl (test code = no gt 10-20 Acetaminoph Lvl) [place] 510672-12-28 17:53:00 Test Item Value Reference Range Interpretation Comments Ethanol Lvl (test code = Ethanol Lvl) no gt [place] [id number] 17:53:00 Test Item Value Reference Range Interpretation Comments Etoh (%) (test code = Etoh (%)) no gt [place] [id number] 17:53:00 Test Item Value Reference Range Interpretation Comments Salicylate Lvl (test no gt See_Comment [Autom ated message] The code = Salicylate Lvl) syste m which generated this result tra nsmitted reference range : <=30.0. The reference r peri was not used to int erpret this result as normal/abnormal . [facility] [id number] 17:53:00 Test Item Value Reference Range Interpretation Comments Glucose Lvl (test code = Glucose Lvl) 107 70-99 [facility] [id number] 17:53:00 Test Item Value Reference Range Interpretation Comments BUN (test code = BUN) 10 7-22 [facility] JNCMO9492-21-28 17:53:00 Test Item Value Reference Range Interpretation Comments Creatinine Lvl (test code = Creatinine 0.67 0.50-1.40 Lvl) [facility] [id number] 17:53:00 Test Item Value Reference Range Interpretation Comments Sodium Lvl (test code = Sodium Lvl) 142 135-145 [facility] [id number] 17:53:00 Test Item Value Reference Range Interpretation Comments Potassium Lvl (test code = Potassium 3.7 3.5-5.1 Lvl) [facility] [id number] 17:53:00 Test Item Value Reference Range Interpretation Comments Chloride Lvl (test code = Chloride Lvl) 111 95-109 [facility] [id number] 17:53:00 Test Item Value Reference Range Interpretation Comments CO2 (test code = CO2) 27 24-32 [facility] [id number] 17:53:00 Test Item Value Reference Range Interpretation Comments Calcium Lvl (test code = Calcium Lvl) 9.4 8.5-10.5 [facility] [id number] 17:53:00 Test Item Value Reference Range Interpretation Comments Total Protein (test code = Total 5.8 6.4-8.4 Protein) [facility] [id number] 17:53:00 Test Item Value Reference Range Interpretation Comments Albumin Lvl (test code = Albumin Lvl) 3.0 3.5-5.0 [facility] [id number] 17:53:00 Test Item Value Reference Range Interpretation Comments ALT (test code = ALT) 26 See_Comment [Auto mated message] The system which ge nerated this result transmit suze reference range : <=65. The reference range was not used to interpr et this result as anselmo l/abnormal. [facility] [employer] [id number] 17:53:00 Test Item Value Reference Range Interpretation Comments AST (test code = AST) 18 See_Comment [Auto mated message] The system which ge nerated this result transmit suze reference range : <=37. The reference range was not used to interpr et this result as anselmo l/abnormal. [facility] [employer] [id number] 17:53:00 Test Item Value Reference Range Interpretation Comments Alk Phos (test code = Alk Phos) 64 39-136 [facility] [employer] [id number] 17:53:00 Test Item Value Reference Range Interpretation Comments Bili Total (test code = Bili Total) 0.5 0.2-1.3 [facility] [employer] [id number] 17:53:00 Test Item Value Reference Range Interpretation Comments AGAP (test code = AGAP) 7.7 10.0-20.0 [facility] [employer] [id number] 17:53:00 Test Item Value Reference Range Interpretation Comments B/C Ratio (test code = B/C Ratio) 15 1 6-25 [facility] [employer] [id number] 17:53:00 Test Item Value Reference Range Interpretation Comments Globulin (test code = Globulin) 2.8 2.7-4.2 [facility] [employer] [id number] 17:53:00 Test Item Value Reference Range Interpretation Comments A/G Ratio (test code = A/G Ratio) 1.1 1 0.7-1.6 [place] 826522-12-28 17:53:00 Test Item Value Reference Range Interpretation Comments eGFR (test code = eGFR) 118 [place] 826522-12-28 17:53:00 Test Item Value Reference Range Interpretation Comments Lipase Lvl (test code = Lipase Lvl) 160 73-393 [place] 826522-12-28 17:53:00 Test Item Value Reference Range Interpretation Comments Bili Direct (test code 0.1 See_Comment [Aut omated message] The = Bili Direct) system which generated this result tra nsmitted reference range : <=0.3. The reference r peri was not used to int erpret this result as anselmo l/abnormal. [place] 610062-12-28 17:53:00 Test Item Value Reference Range Interpretation Comments Glucose Lvl (test code = Glucose Lvl) 107 70-99 [place] 610062-12-28 17:53:00 Test Item Value Reference Range Interpretation Comments BUN (test code = BUN) 10 7-22 [place] 610062-12-28 17:53:00 Test Item Value Reference Range Interpretation Comments Creatinine Lvl (test code = Creatinine 0.67 0.50-1.40 Lvl) [facility]hnicjiUHJOLVQAE0305-43-80 17:53:00 Test Item Value Reference Range Interpretation Comments Sodium Lvl (test code = Sodium Lvl) 142 135-145 [place] 610062-12-28 17:53:00 Test Item Value Reference Range Interpretation Comments Potassium Lvl (test code = Potassium 3.7 3.5-5.1 Lvl) [facility] CenterOcshtqpWGSJABGBN2118-12-32 17:53:00 Test Item Value Reference Range Interpretation Comments Chloride Lvl (test code = Chloride Lvl) 111 95-109 [place] 610062-12-28 17:53:00 Test Item Value Reference Range Interpretation Comments CO2 (test code = CO2) 27 24-32 [facility] CenterPkycsgfVPLZYZFVZ0248-03-16 17:53:00 Test Item Value Reference Range Interpretation Comments Calcium Lvl (test code = Calcium Lvl) 9.4 8.5-10.5 [place] 610062-12-28 17:53:00 Test Item Value Reference Range Interpretation Comments Total Protein (test code = Total 5.8 6.4-8.4 Protein) [facility] NbslayyRAOCJLDCS6892-70-58 17:53:00 Test Item Value Reference Range Interpretation Comments Albumin Lvl (test code = Albumin Lvl) 3.0 3.5-5.0 [facility] EndsrkrVPGOVPAIT8184-98-30 17:53:00 Test Item Value Reference Range Interpretation Comments ALT (test code = ALT) 26 See_Comment [Auto mated message] The system which ge nerated this result transmit suze reference range : <=65. The reference range was not used to interpr et this result as anselmo l/abnormal. [facility] WdoayitAXCOJYOZC9755-11-52 17:53:00 Test Item Value Reference Range Interpretation Comments AST (test code = AST) 18 See_Comment [Auto mated message] The system which ge nerated this result transmit suze reference range : <=37. The reference range was not used to interpr et this result as anselmo l/abnormal. [facility] GzfwmzdCPIIZQDUH0399-52-66 17:53:00 Test Item Value Reference Range Interpretation Comments Alk Phos (test code = Alk Phos) 64 39-136 [facility] LsbmqgdPPUXZCPWA4647-82-09 17:53:00 Test Item Value Reference Range Interpretation Comments Bili Total (test code = Bili Total) 0.5 0.2-1.3 [facility] RpcopwyAYMZTXIDK7229-67-63 17:53:00 Test Item Value Reference Range Interpretation Comments AGAP (test code = AGAP) 7.7 10.0-20.0 [facility] KhwhehyMGICOTBZQ3978-96-74 17:53:00 Test Item Value Reference Range Interpretation Comments B/C Ratio (test code = B/C Ratio) 15 1 6-25 [facility] ZvlunavUIEJHIWFZ3478-22-74 17:53:00 Test Item Value Reference Range Interpretation Comments Globulin (test code = Globulin) 2.8 2.7-4.2 [facility] RbagjjrGJGZAVHSN8127-62-59 17:53:00 Test Item Value Reference Range Interpretation Comments A/G Ratio (test code = A/G Ratio) 1.1 1 0.7-1.6 [facility] LlijyzoQCVSVWBIK0045-00-31 17:53:00 Test Item Value Reference Range Interpretation Comments eGFR (test code = eGFR) 118 [facility] WdnoxfuXMRQIIWEC1266-77-76 17:53:00 Test Item Value Reference Range Interpretation Comments Lipase Lvl (test code = Lipase Lvl) 160 73-393 [facility] CenterHnqdwmvXHKVLLTCR8649-62-93 17:53:00 Test Item Value Reference Range Interpretation Comments Acetaminoph Lvl (test code = no gt 10-20 Acetaminoph Lvl) [facility] CenterWkzxppjBDPYWGLZH3727-22-60 17:53:00 Test Item Value Reference Range Interpretation Comments Ethanol Lvl (test code = Ethanol Lvl) no gt [facility] CenterWiyxqyfHPPCGBAED9079-52-08 17:53:00 Test Item Value Reference Range Interpretation Comments Etoh (%) (test code = Etoh (%)) no gt [facility] CenterIjltcemWLAGJDCOZ6950-08-71 17:53:00 Test Item Value Reference Range Interpretation Comments Salicylate Lvl (test no gt See_Comment [Autom ated message] The code = Salicylate Lvl) syste m which generated this result tra nsmitted reference range : <=30.0. The reference r peri was not used to int erpret this result as normal/abnormal . [facility] CenterCthsyucVBCAAADNO5034-54-66 17:53:00 Test Item Value Reference Range Interpretation Comments Bili Direct (test code 0.1 See_Comment [Aut omated message] The = Bili Direct) system which generated this result tra nsmitted reference range : <=0.3. The reference r peri was not used to int erpret this result as anselmo l/abnormal. [facility] HospitalUtnqncsVCFKDIRLKV2363-27-84 17:53:00 Test Item Value Reference Range Interpretation Comments WBC X 10x3 (test code = WBC X 10x3) 9.9 3.7-10.4 [facility] HospitalWfndshuJRYTTMRLXS1798-29-36 17:53:00 Test Item Value Reference Range Interpretation Comments RBC X 10x6 (test code = RBC X 10x6) 4.74 4.70-6.10 [facility] HospitalVgvnndnVSWIIVHIJA2131-28-60 17:53:00 Test Item Value Reference Range Interpretation Comments Hgb (test code = Hgb) 14.5 14.0-18.0 [place] 848172-12-28 17:53:00 Test Item Value Reference Range Interpretation Comments Hct (test code = Hct) 43.9 42.0-54.0 [facility] HospitalEbklvylXLNVQDYFPH2362-22-61 17:53:00 Test Item Value Reference Range Interpretation Comments MCV (test code = MCV) 92.4 80.0-94.0 [place] [address]-12-28 17:53:00 Test Item Value Reference Range Interpretation Comments MCH (test code = MCH) 30.6 pg 27.0-31.0 [place] [address]-12-28 17:53:00 Test Item Value Reference Range Interpretation Comments MCHC (test code = MCHC) 33.1 32.0-36.0 [place] [address]-12-28 17:53:00 Test Item Value Reference Range Interpretation Comments RDW (test code = RDW) 13.5 11.5-14.5 [place] [address]-12-28 17:53:00 Test Item Value Reference Range Interpretation Comments Platelet (test code = Platelet) 229 133-450 [place] 848172-12-28 17:53:00 Test Item Value Reference Range Interpretation Comments MPV (test code = MPV) 8.6 7.4-10.4 [place] [address]-12-28 17:53:00 Test Item Value Reference Range Interpretation Comments Segs (test code = Segs) 72.3 45.0-75.0 [place] [address]-12-28 17:53:00 Test Item Value Reference Range Interpretation Comments Lymphocytes (test code = Lymphocytes) 16.4 20.0-40.0 [place] [address]-12-28 17:53:00 Test Item Value Reference Range Interpretation Comments Monocytes (test code = Monocytes) 7.4 2.0-12.0 [place] [address]-12-28 17:53:00 Test Item Value Reference Range Interpretation Comments Eosinophils (test code = 3.5 See_Comment [A utomated message] The Eosinophils) system which ge nerated this result tra nsmitted reference range : <=4.0. The reference r peri was not used to int erpret this result as normal/abnormal . [place] [address]-12-28 17:53:00 Test Item Value Reference Range Interpretation Comments Basophils (test code = 0.4 See_Comment [Aut omated message] The Basophils) system which ge nerated this result tra nsmitted reference range : <=1.0. The reference r peri was not used to int erpret this result as normal/abnormal . [facility] HospitalFiodbwqRMAWARABZY0033-48-13 17:53:00 Test Item Value Reference Range Interpretation Comments Neutrophils # (test code = Neutrophils 7.1 1.5-8.1 #) [facility] HospitalQxcmkilCLQVCHNPQA1190-67-90 17:53:00 Test Item Value Reference Range Interpretation Comments Lymphocytes # (test code = Lymphocytes 1.6 1.0-5.5 #) [facility] HospitalVilhhcfNAXZFAINMW1886-29-38 17:53:00 Test Item Value Reference Range Interpretation Comments Monocytes # (test code 0.7 See_Comment [Aut omated message] The = Monocytes #) system which generated this result tra nsmitted reference range : <=0.8. The reference r peri was not used to int erpret this result as normal/abnormal . [facility] HospitalNdfnxvwCKGXLKLWRB2142-23-81 17:53:00 Test Item Value Reference Range Interpretation Comments Eosinophils # (test code 0.3 See_Comment [A utomated message] The = Eosinophils #) system whic h generated this result tra nsmitted reference range : <=0.5. The reference r peri was not used to int erpret this result as normal/abnormal . [facility]ihvhitVBBGHSFPRU8637-50-90 17:53:00 Test Item Value Reference Range Interpretation Comments Acetaminoph Lvl (test code = no gt 10-20 Acetaminoph Lvl) [facility] AliceJevlepvWIWYRICSLZ6718-51-42 17:53:00 Test Item Value Reference Range Interpretation Comments Ethanol Lvl (test code = Ethanol Lvl) [facility] gt [facility]kuWCBPSQWGKM1639-35-62 17:53:00 Test Item Value Reference Range Interpretation Comments Etoh (%) (test code = Etoh (%)) no gt [facility]ZrdpxqeFZVZLUAHJR6487-15-41 17:53:00 Test Item Value Reference Range Interpretation Comments Salicylate Lvl (test no gt See_Comment [Autom ated message] The code = Salicylate Lvl) syste m which generated this result tra nsmitted reference range : <=30.0. The reference r peri was not used to int erpret this result as normal/abnormal . [facility]2022-12-28 17:53:00 Test Item Value Reference Range Interpretation Comments Glucose Lvl (test code = Glucose Lvl) 107 70-99 [place] 826522-12-28 17:53:00 Test Item Value Reference Range Interpretation Comments BUN (test code = BUN) 10 7-22 [place] 826522-12-28 17:53:00 Test Item Value Reference Range Interpretation Comments Creatinine Lvl (test code = Creatinine 0.67 0.50-1.40 Lvl) [place] 826522-12-28 17:53:00 Test Item Value Reference Range Interpretation Comments Sodium Lvl (test code = Sodium Lvl) 142 135-145 [place] 826522-12-28 17:53:00 Test Item Value Reference Range Interpretation Comments Potassium Lvl (test code = Potassium 3.7 3.5-5.1 Lvl) [address]12-28 17:53:00 Test Item Value Reference Range Interpretation Comments Chloride Lvl (test code = Chloride Lvl) 111 95-109 [place] 826522-12-28 17:53:00 Test Item Value Reference Range Interpretation Comments CO2 (test code = CO2) 27 24-32 [address]12-28 17:53:00 Test Item Value Reference Range Interpretation Comments Calcium Lvl (test code = Calcium Lvl) 9.4 8.5-10.5 [place] 826522-12-28 17:53:00 Test Item Value Reference Range Interpretation Comments Total Protein (test code = Total 5.8 6.4-8.4 Protein) [place] 826522-12-28 17:53:00 Test Item Value Reference Range Interpretation Comments Albumin Lvl (test code = Albumin Lvl) 3.0 3.5-5.0 [address]12-28 17:53:00 Test Item Value Reference Range Interpretation Comments ALT (test code = ALT) 26 See_Comment [Auto mated message] The system which ge nerated this result transmit suze reference range : <=65. The reference range was not used to interpr et this result as naselmo l/abnormal. [place] 826522-12-28 17:53:00 Test Item Value Reference Range Interpretation Comments AST (test code = AST) 18 See_Comment [Auto mated message] The system which ge nerated this result transmit suze reference range : <=37. The reference range was not used to interpr et this result as anselmo l/abnormal. [place] 826522-12-28 17:53:00 Test Item Value Reference Range Interpretation Comments Alk Phos (test code = Alk Phos) 64 39-136 [address]12-28 17:53:00 Test Item Value Reference Range Interpretation Comments Bili Total (test code = Bili Total) 0.5 0.2-1.[address]12-28 17:53:00 Test Item Value Reference Range Interpretation Comments AGAP (test code = AGAP) 7.7 10.0-20.0 [address]12-28 17:53:00 Test Item Value Reference Range Interpretation Comments B/C Ratio (test code = B/C Ratio) 15 1 6-[address]12-28 17:53:00 Test Item Value Reference Range Interpretation Comments Globulin (test code = Globulin) 2.8 2.7-4.2 [place] [address]-12-28 17:53:00 Test Item Value Reference Range Interpretation Comments A/G Ratio (test code = A/G Ratio) 1.1 1 0.7-1.6 [address]12-28 17:53:00 Test Item Value Reference Range Interpretation Comments eGFR (test code = eGFR) [address]12-28 17:53:00 Test Item Value Reference Range Interpretation Comments Lipase Lvl (test code = Lipase Lvl) 160 73-393 [place] [address]-12-28 17:53:00 Test Item Value Reference Range Interpretation Comments Bili Direct (test code 0.1 See_Comment [Aut omated message] The = Bili Direct) system which generated this result tra nsmitted reference range : <=0.3. The reference r peri was not used to int erpret this result as anselmo l/abnormal. [place] [address]-12-28 17:53:00 Test Item Value Reference Range Interpretation Comments Glucose Lvl (test code = Glucose Lvl) 107 70-99 [place] [address]-12-28 17:53:00 Test Item Value Reference Range Interpretation Comments BUN (test code = BUN) 10 7-22 [facility] CenterSnmmeubKCITRLKGN9516-26-90 17:53:00 Test Item Value Reference Range Interpretation Comments Creatinine Lvl (test code = Creatinine 0.67 0.50-1.40 Lvl) [facility]WxxzulyTRTLIMCLJ1933-64-77 17:53:00 Test Item Value Reference Range Interpretation Comments Sodium Lvl (test code = Sodium Lvl) 142 135-145 [place] 610062-12-28 17:53:00 Test Item Value Reference Range Interpretation Comments Potassium Lvl (test code = Potassium 3.7 3.5-5.1 Lvl) [facility] CenterQatatfhKMPPUPQRQ7981-22-39 17:53:00 Test Item Value Reference Range Interpretation Comments Chloride Lvl (test code = Chloride Lvl) 111 95-109 [place] [address]-12-28 17:53:00 Test Item Value Reference Range Interpretation Comments CO2 (test code = CO2) 27 24-32 [place] 610062-12-28 17:53:00 Test Item Value Reference Range Interpretation Comments Calcium Lvl (test code = Calcium Lvl) 9.4 8.5-10.5 [place] 610062-12-28 17:53:00 Test Item Value Reference Range Interpretation Comments Total Protein (test code = Total 5.8 6.4-8.4 Protein) [facility]HjgxnjxXHEQSRHVF2380-21-25 17:53:00 Test Item Value Reference Range Interpretation Comments Albumin Lvl (test code = Albumin Lvl) 3.0 3.5-5.0 [place] 610062-12-28 17:53:00 Test Item Value Reference Range Interpretation Comments ALT (test code = ALT) 26 See_Comment [Auto mated message] The system which ge nerated this result transmit suze reference range : <=65. The reference range was not used to interpr et this result as anselmo l/abnormal. [place] [address]-12-28 17:53:00 Test Item Value Reference Range Interpretation Comments AST (test code = AST) 18 See_Comment [Auto mated message] The system which ge nerated this result transmit suze reference range : <=37. The reference range was not used to interpr et this result as anselmo l/abnormal. [place] 610062-12-28 17:53:00 Test Item Value Reference Range Interpretation Comments Alk Phos (test code = Alk Phos) 64 39-136 [facility] CenterPpbptjnRUUFFDKQO8525-68-39 17:53:00 Test Item Value Reference Range Interpretation Comments Bili Total (test code = Bili Total) 0.5 0.2-1.3 [facility] CenterMoisxiaGTJHXRMCQ8117-62-19 17:53:00 Test Item Value Reference Range Interpretation Comments AGAP (test code = AGAP) 7.7 10.0-20.0 [facility] CenterMzdvxdgWABHLXNUY2956-73-19 17:53:00 Test Item Value Reference Range Interpretation Comments B/C Ratio (test code = B/C Ratio) 15 1 6-25 [facility] CenterHzzoywkYODQIHZAT9908-80-81 17:53:00 Test Item Value Reference Range Interpretation Comments Globulin (test code = Globulin) 2.8 2.7-4.2 [facility] CenterNadlnbhUKNVJCROM0029-42-01 17:53:00 Test Item Value Reference Range Interpretation Comments A/G Ratio (test code = A/G Ratio) 1.1 1 0.7-1.6 [facility] CenterBercgtxTJGKVPHWI5234-36-25 17:53:00 Test Item Value Reference Range Interpretation Comments eGFR (test code = eGFR) 118 [facility] CenterLrleobhHNOZMKWVP3052-75-09 17:53:00 Test Item Value Reference Range Interpretation Comments Lipase Lvl (test code = Lipase Lvl) 160 73-393 [facility] CenterNrgjcgjCJIOXOPTJ4937-66-75 17:53:00 Test Item Value Reference Range Interpretation Comments Acetaminoph Lvl (test code = no gt 10-20 Acetaminoph Lvl) [facility] CenterTotbtuoNTZDZQVCX7710-25-87 17:53:00 Test Item Value Reference Range Interpretation Comments Ethanol Lvl (test code = Ethanol Lvl) no gt [facility] CenterSqgnwueVPCLZCWYJ2446-35-81 17:53:00 Test Item Value Reference Range Interpretation Comments Etoh (%) (test code = Etoh (%)) no gt [facility] CenterHlujvnpKHJWWAIXU4545-39-34 17:53:00 Test Item Value Reference Range Interpretation Comments Salicylate Lvl (test no gt See_Comment [Autom ated message] The code = Salicylate Lvl) syste m which generated this result tra nsmitted reference range : <=30.0. The reference r peri was not used to int erpret this result as normal/abnormal . [facility]KqxslwwVXPQGALRT5055-03-22 17:53:00 Test Item Value Reference Range Interpretation Comments Bili Direct (test code 0.1 See_Comment [Aut omated message] The = Bili Direct) system which generated this result tra nsmitted reference range : <=0.3. The reference r peri was not used to int erpret this result as anselmo l/abnormal. [facility]bqlzqb[facility]YEPLZY8574[facility]46-[facility] 17:53:00 Test Item Value Reference Range Interpretation Comments WBC X 10x3 (test code = WBC X 10x3) 9.9 3.7-10.4 [facility] HospitalFrztpkpWJDAETAEWU7063-78-63 17:53:00 Test Item Value Reference Range Interpretation Comments RBC X 10x6 (test code = RBC X 10x6) 4.74 4.70-6.10 [facility] HospitalJvbouotDOPALDJMVS8808-46-31 17:53:00 Test Item Value Reference Range Interpretation Comments Hgb (test code = Hgb) 14.5 14.0-18.0 [facility] HospitalBhibrvhQOVEWQXQTG5138-82-71 17:53:00 Test Item Value Reference Range Interpretation Comments Hct (test code = Hct) 43.9 42.0-54.0 [facility] HospitalAnovpylJOXXUTCDPZ0326-38-99 17:53:00 Test Item Value Reference Range Interpretation Comments MCV (test code = MCV) 92.4 80.0-94.0 [facility] HospitalZcowpsyCHQNOKUUOK0500-19-20 17:53:00 Test Item Value Reference Range Interpretation Comments MCH (test code = MCH) 30.6 pg 27.0-31.0 [facility] HospitalCadagavXIMBSXRQYR7798-09-03 17:53:00 Test Item Value Reference Range Interpretation Comments MCHC (test code = MCHC) 33.1 32.0-36.0 [facility] HospitalGcfivxkMWOHPYWNEJ2099-73-85 17:53:00 Test Item Value Reference Range Interpretation Comments RDW (test code = RDW) 13.5 11.5-14.5 [facility] HospitalQarxbpqJWVWCIAJMT1616-36-75 17:53:00 Test Item Value Reference Range Interpretation Comments Platelet (test code = Platelet) 229 133-450 [facility] HospitalEninvofKYXWAIIIFJ5989-29-61 17:53:00 Test Item Value Reference Range Interpretation Comments MPV (test code = MPV) 8.6 7.4-10.4 [place] 848172-12-28 17:53:00 Test Item Value Reference Range Interpretation Comments Segs (test code = Segs) 72.3 45.0-75.0 [place] 848172-12-28 17:53:00 Test Item Value Reference Range Interpretation Comments Lymphocytes (test code = Lymphocytes) 16.4 20.0-40.0 [place] 848172-12-28 17:53:00 Test Item Value Reference Range Interpretation Comments Monocytes (test code = Monocytes) 7.4 2.0-12.0 [place] [address]-12-28 17:53:00 Test Item Value Reference Range Interpretation Comments Eosinophils (test code = 3.5 See_Comment [A utomated message] The Eosinophils) system which ge nerated this result tra nsmitted reference range : <=4.0. The reference r peri was not used to int erpret this result as normal/abnormal . [place] [address]-12-28 17:53:00 Test Item Value Reference Range Interpretation Comments Basophils (test code = 0.4 See_Comment [Aut omated message] The Basophils) system which ge nerated this result tra nsmitted reference range : <=1.0. The reference r peri was not used to int erpret this result as normal/abnormal . [place] 848172-12-28 17:53:00 Test Item Value Reference Range Interpretation Comments Neutrophils # (test code = Neutrophils 7.1 1.5-8.1 #) [place] 848172-12-28 17:53:00 Test Item Value Reference Range Interpretation Comments Lymphocytes # (test code = Lymphocytes 1.6 1.0-5.5 #) [place] [address]-12-28 17:53:00 Test Item Value Reference Range Interpretation Comments Monocytes # (test code 0.7 See_Comment [Aut omated message] The = Monocytes #) system which generated this result tra nsmitted reference range : <=0.8. The reference r peri was not used to int erpret this result as normal/abnormal . [place] [address]-12-28 17:53:00 Test Item Value Reference Range Interpretation Comments Eosinophils # (test code 0.3 See_Comment [A utomated message] The = Eosinophils #) system whic h generated this result tra nsmitted reference range : <=0.5. The reference r peri was not used to int erpret this result as normal/abnormal . [facility]he[facility]gyMRESZVLXGJ7201-38-13 17:53:00 Test Item Value Reference Range Interpretation Comments Acetaminoph Lvl (test code = no gt 10-20 Acetaminoph Lvl) [place] 510672-12-28 17:53:00 Test Item Value Reference Range Interpretation Comments Ethanol Lvl (test code = Ethanol Lvl) no gt [place] 510672-12-28 17:53:00 Test Item Value Reference Range Interpretation Comments Etoh (%) (test code = Etoh (%)) no gt [place] 66082022-12-28 17:53:00 Test Item Value Reference Range Interpretation Comments Salicylate Lvl (test no gt See_Comment [Autom ated message] The code = Salicylate Lvl) syste m which generated this result tra nsmitted reference range : <=30.0. The reference r peri was not used to int erpret this result as normal/abnormal . [facility] [employer] [id number] 17:53:00 Test Item Value Reference Range Interpretation Comments Glucose Lvl (test code = Glucose Lvl) 107 70-99 [facility] [id number] 17:53:00 Test Item Value Reference Range Interpretation Comments BUN (test code = BUN) 10 7-22 [facility] [id number] 17:53:00 Test Item Value Reference Range Interpretation Comments Creatinine Lvl (test code = Creatinine 0.67 0.50-1.40 Lvl) [facility] [id number] 17:53:00 Test Item Value Reference Range Interpretation Comments Sodium Lvl (test code = Sodium Lvl) 142 135-145 [facility] [id number] 17:53:00 Test Item Value Reference Range Interpretation Comments Potassium Lvl (test code = Potassium 3.7 3.5-5.1 Lvl) [facility] [id number] 17:53:00 Test Item Value Reference Range Interpretation Comments Chloride Lvl (test code = Chloride Lvl) 111 95-109 [facility] HermChrist[place] 516692-12-28 17:53:00 Test Item Value Reference Range Interpretation Comments CO2 (test code = CO2) 27 24-32 [place] [address]-12-28 17:53:00 Test Item Value Reference Range Interpretation Comments Calcium Lvl (test code = Calcium Lvl) 9.4 8.5-10.5 [place] 826522-12-28 17:53:00 Test Item Value Reference Range Interpretation Comments Total Protein (test code = Total 5.8 6.4-8.4 Protein) [address]12-28 17:53:00 Test Item Value Reference Range Interpretation Comments Albumin Lvl (test code = Albumin Lvl) 3.0 3.5-5.0 [facility] WXHLU1207-15-27 17:53:00 Test Item Value Reference Range Interpretation Comments ALT (test code = ALT) 26 See_Comment [Auto mated message] The system which ge nerated this result transmit suze reference range : <=65. The reference range was not used to interpr et this result as anselmo l/abnormal. [facility] [id number] 17:53:00 Test Item Value Reference Range Interpretation Comments AST (test code = AST) 18 See_Comment [Auto mated message] The system which ge nerated this result transmit suze reference range : <=37. The reference range was not used to interpr et this result as anselmo l/abnormal. [place] 826522-12-28 17:53:00 Test Item Value Reference Range Interpretation Comments Alk Phos (test code = Alk Phos) 64 39-136 [facility] [id number] 17:53:00 Test Item Value Reference Range Interpretation Comments Bili Total (test code = Bili Total) 0.5 0.2-1.3 [facility] [id number] 17:53:00 Test Item Value Reference Range Interpretation Comments AGAP (test code = AGAP) 7.7 10.0-20.0 [facility] [id number] 17:53:00 Test Item Value Reference Range Interpretation Comments B/C Ratio (test code = B/C Ratio) 15 1 6-25 [facility] [id number] 17:53:00 Test Item Value Reference Range Interpretation Comments Globulin (test code = Globulin) 2.8 2.7-4.2 [place] 826522-12-28 17:53:00 Test Item Value Reference Range Interpretation Comments A/G Ratio (test code = A/G Ratio) 1.1 1 0.7-1.6 [place] [address]-12-28 17:53:00 Test Item Value Reference Range Interpretation Comments eGFR (test code = eGFR) 118 [place] 826522-12-28 17:53:00 Test Item Value Reference Range Interpretation Comments Lipase Lvl (test code = Lipase Lvl) 160 73-393 [place] [address]-12-28 17:53:00 Test Item Value Reference Range Interpretation Comments Bili Direct (test code 0.1 See_Comment [Aut omated message] The = Bili Direct) system which generated this result tra nsmitted reference range : <=0.3. The reference r peri was not used to int erpret this result as anselmo l/abnormal. [place] 610062-12-28 17:53:00 Test Item Value Reference Range Interpretation Comments Glucose Lvl (test code = Glucose Lvl) 107 70-99 [place] 610062-12-28 17:53:00 Test Item Value Reference Range Interpretation Comments BUN (test code = BUN) 10 7-22 [place] 610062-12-28 17:53:00 Test Item Value Reference Range Interpretation Comments Creatinine Lvl (test code = Creatinine 0.67 0.50-1.40 Lvl) [place] 610062-12-28 17:53:00 Test Item Value Reference Range Interpretation Comments Sodium Lvl (test code = Sodium Lvl) 142 135-145 [place] 610062-12-28 17:53:00 Test Item Value Reference Range Interpretation Comments Potassium Lvl (test code = Potassium 3.7 3.5-5.1 Lvl) [place] 610062-12-28 17:53:00 Test Item Value Reference Range Interpretation Comments Chloride Lvl (test code = Chloride Lvl) 111 95-109 [place] 610062-12-28 17:53:00 Test Item Value Reference Range Interpretation Comments CO2 (test code = CO2) 27 24-32 [place] 610062-12-28 17:53:00 Test Item Value Reference Range Interpretation Comments Calcium Lvl (test code = Calcium Lvl) 9.4 8.5-10.5 [facility]SnjwdqwPISLJGKYQ7423-90-39 17:53:00 Test Item Value Reference Range Interpretation Comments Total Protein (test code = Total 5.8 6.4-8.4 Protein) [facility] CenterWgznqrbFCYLXBJVU3530-99-26 17:53:00 Test Item Value Reference Range Interpretation Comments Albumin Lvl (test code = Albumin Lvl) 3.0 3.5-5.0 [facility] CenterMjdpbjzWVIXPJYTE1924-58-20 17:53:00 Test Item Value Reference Range Interpretation Comments ALT (test code = ALT) 26 See_Comment [Auto mated message] The system which ge nerated this result transmit suze reference range : <=65. The reference range was not used to interpr et this result as anselmo l/abnormal. [facility] CenterYxzbiptDYSJCVSUZ3634-50-05 17:53:00 Test Item Value Reference Range Interpretation Comments AST (test code = AST) 18 See_Comment [Auto mated message] The system which ge nerated this result transmit suze reference range : <=37. The reference range was not used to interpr et this result as anselmo l/abnormal. [facility] RhjiyhbKOKMLZPJY5994-81-08 17:53:00 Test Item Value Reference Range Interpretation Comments Alk Phos (test code = Alk Phos) 64 39-136 [facility] CenterKbcwogkIQXRLQTBT4579-71-61 17:53:00 Test Item Value Reference Range Interpretation Comments Bili Total (test code = Bili Total) 0.5 0.2-1.3 [facility] CenterMlqksqeULVOTIRZK1301-45-48 17:53:00 Test Item Value Reference Range Interpretation Comments AGAP (test code = AGAP) 7.7 10.0-20.0 [facility] CenterAmtglyyMAXKIQFST4819-55-92 17:53:00 Test Item Value Reference Range Interpretation Comments B/C Ratio (test code = B/C Ratio) 15 1 6-25 [facility] CenterSflhgggYELKHFFNS8942-47-88 17:53:00 Test Item Value Reference Range Interpretation Comments Globulin (test code = Globulin) 2.8 2.7-4.2 [facility] CenterLvnupeiFPLXBZTWS5087-06-55 17:53:00 Test Item Value Reference Range Interpretation Comments A/G Ratio (test code = A/G Ratio) 1.1 1 0.7-1.6 [facility] CenterFacnsoaVKUUPTNHY4979-59-79 17:53:00 Test Item Value Reference Range Interpretation Comments eGFR (test code = eGFR) 118 [facility] CenterDarmwdfWXFMFBAYU2607-15-44 17:53:00 Test Item Value Reference Range Interpretation Comments Lipase Lvl (test code = Lipase Lvl) 160 73-393 [facility] CenterSbjueaeNPECMEBHA5799-04-08 17:53:00 Test Item Value Reference Range Interpretation Comments Acetaminoph Lvl (test code = no gt 10-20 Acetaminoph Lvl) [facility] CenterHkzkjavPPDRPPGID7118-52-47 17:53:00 Test Item Value Reference Range Interpretation Comments Ethanol Lvl (test code = Ethanol Lvl) no gt [facility] CenterFasctlkYDWNKJEFF7074-26-53 17:53:00 Test Item Value Reference Range Interpretation Comments Etoh (%) (test code = Etoh (%)) no gt [facility] CenterEuceyhxAFTIGATLN1592-79-63 17:53:00 Test Item Value Reference Range Interpretation Comments Salicylate Lvl (test no gt See_Comment [Autom ated message] The code = Salicylate Lvl) syste m which generated this result tra nsmitted reference range : <=30.0. The reference r peri was not used to int erpret this result as normal/abnormal . [facility] CenterAkazpssGFIALGPXN2090-28-68 17:53:00 Test Item Value Reference Range Interpretation Comments Bili Direct (test code 0.1 See_Comment [Aut omated message] The = Bili Direct) system which generated this result tra nsmitted reference range : <=0.3. The reference r peri was not used to int erpret this result as anselmo l/abnormal. [facility]FxjffiaPNQFUKDVEC3082-99-49 17:53:00 Test Item Value Reference Range Interpretation Comments WBC X 10x3 (test code = WBC X 10x3) 9.9 3.7-10.4 [facility] HospitalTkxjumfTPPECVAOCK8725-42-00 17:53:00 Test Item Value Reference Range Interpretation Comments RBC X 10x6 (test code = RBC X 10x6) 4.74 4.70-6.10 [facility] HospitalGnxqtbzBCPHVWKQZY1719-83-60 17:53:00 Test Item Value Reference Range Interpretation Comments Hgb (test code = Hgb) 14.5 14.0-18.0 [place] 848172-12-28 17:53:00 Test Item Value Reference Range Interpretation Comments Hct (test code = Hct) 43.9 42.0-54.0 [place] 848172-12-28 17:53:00 Test Item Value Reference Range Interpretation Comments MCV (test code = MCV) 92.4 80.0-94.0 [place] 848172-12-28 17:53:00 Test Item Value Reference Range Interpretation Comments MCH (test code = MCH) 30.6 pg 27.0-31.0 [place] [address]-12-28 17:53:00 Test Item Value Reference Range Interpretation Comments MCHC (test code = MCHC) 33.1 32.0-36.0 [place] 848172-12-28 17:53:00 Test Item Value Reference Range Interpretation Comments RDW (test code = RDW) 13.5 11.5-14.5 [place] 848172-12-28 17:53:00 Test Item Value Reference Range Interpretation Comments Platelet (test code = Platelet) 229 133-450 [place] 848172-12-28 17:53:00 Test Item Value Reference Range Interpretation Comments MPV (test code = MPV) 8.6 7.4-10.4 [place] 848172-12-28 17:53:00 Test Item Value Reference Range Interpretation Comments Segs (test code = Segs) 72.3 45.0-75.0 [place] 848172-12-28 17:53:00 Test Item Value Reference Range Interpretation Comments Lymphocytes (test code = Lymphocytes) 16.4 20.0-40.0 [place] 848172-12-28 17:53:00 Test Item Value Reference Range Interpretation Comments Monocytes (test code = Monocytes) 7.4 2.0-12.0 [place] [address]-12-28 17:53:00 Test Item Value Reference Range Interpretation Comments Eosinophils (test code = 3.5 See_Comment [A utomated message] The Eosinophils) system which ge nerated this result tra nsmitted reference range : <=4.0. The reference r peri was not used to int erpret this result as normal/abnormal . [place] 848172-12-28 17:53:00 Test Item Value Reference Range Interpretation Comments Basophils (test code = 0.4 See_Comment [Aut omated message] The Basophils) system which ge nerated this result tra nsmitted reference range : <=1.0. The reference r peri was not used to int erpret this result as normal/abnormal . [facility] HospitalUrkqwnoXFBGTFWUUQ4289-95-34 17:53:00 Test Item Value Reference Range Interpretation Comments Neutrophils # (test code = Neutrophils 7.1 1.5-8.1 #) [facility] HospitalObjguosRWPQFXHLJB4311-84-67 17:53:00 Test Item Value Reference Range Interpretation Comments Lymphocytes # (test code = Lymphocytes 1.6 1.0-5.5 #) [facility] HospitalGwcajuzPTIZVNCNHY7865-40-28 17:53:00 Test Item Value Reference Range Interpretation Comments Monocytes # (test code 0.7 See_Comment [Aut omated message] The = Monocytes #) system which generated this result tra nsmitted reference range : <=0.8. The reference r peri was not used to int erpret this result as normal/abnormal . [facility] HospitalQgrlwdcSUIZDRRWUA3053-24-76 17:53:00 Test Item Value Reference Range Interpretation Comments Eosinophils # (test code 0.3 See_Comment [A utomated message] The = Eosinophils #) system whic h generated this result tra nsmitted reference range : <=0.5. The reference r peri was not used to int erpret this result as normal/abnormal . [place] 66082022-12-28 17:53:00 Test Item Value Reference Range Interpretation Comments Acetaminoph Lvl (test code = no gt 10-20 Acetaminoph Lvl) [place] 66082022-12-28 17:53:00 Test Item Value Reference Range Interpretation Comments Ethanol Lvl (test code = Ethanol Lvl) no gt [facility] HospitalVabykdcIEQPQUFKVH6659-67-49 17:53:00 Test Item Value Reference Range Interpretation Comments Etoh (%) (test code = Etoh (%)) no gt [place] 66082022-12-28 17:53:00 Test Item Value Reference Range Interpretation Comments Salicylate Lvl (test no gt See_Comment [Autom ated message] The code = Salicylate Lvl) syste m which generated this result tra nsmitted reference range : <=30.0. The reference r peri was not used to int erpret this result as normal/abnormal . [place] 826522-12-28 17:53:00 Test Item Value Reference Range Interpretation Comments Glucose Lvl (test code = Glucose Lvl) 107 70-99 [place] [address]-12-28 17:53:00 Test Item Value Reference Range Interpretation Comments BUN (test code = BUN) 10 7-22 [place] 826522-12-28 17:53:00 Test Item Value Reference Range Interpretation Comments Creatinine Lvl (test code = Creatinine 0.67 0.50-1.40 Lvl) [place] [address]-12-28 17:53:00 Test Item Value Reference Range Interpretation Comments Sodium Lvl (test code = Sodium Lvl) 142 135-145 [place] 826522-12-28 17:53:00 Test Item Value Reference Range Interpretation Comments Potassium Lvl (test code = Potassium 3.7 3.5-5.1 Lvl) [place] 826522-12-28 17:53:00 Test Item Value Reference Range Interpretation Comments Chloride Lvl (test code = Chloride Lvl) 111 95-109 [place] 826522-12-28 17:53:00 Test Item Value Reference Range Interpretation Comments CO2 (test code = CO2) 27 24-32 [address]12-28 17:53:00 Test Item Value Reference Range Interpretation Comments Calcium Lvl (test code = Calcium Lvl) 9.4 8.5-10.5 [place] 826522-12-28 17:53:00 Test Item Value Reference Range Interpretation Comments Total Protein (test code = Total 5.8 6.4-8.4 Protein) [place] [address]-12-28 17:53:00 Test Item Value Reference Range Interpretation Comments Albumin Lvl (test code = Albumin Lvl) 3.0 3.5-5.0 [place] [address]-12-28 17:53:00 Test Item Value Reference Range Interpretation Comments ALT (test code = ALT) 26 See_Comment [Auto mated message] The system which ge nerated this result transmit suze reference range : <=65. The reference range was not used to interpr et this result as anselmo l/abnormal. [facility] [employer] RQLMQ0109-29-18 17:53:00 Test Item Value Reference Range Interpretation Comments AST (test code = AST) 18 See_Comment [Auto mated message] The system which ge nerated this result transmit suze reference range : <=37. The reference range was not used to interpr et this result as anselmo l/abnormal. [facility] [employer] [id number] 17:53:00 Test Item Value Reference Range Interpretation Comments Alk Phos (test code = Alk Phos) 64 39-136 [facility] [id number] 17:53:00 Test Item Value Reference Range Interpretation Comments Bili Total (test code = Bili Total) 0.5 0.2-1.3 [facility] [id number] 17:53:00 Test Item Value Reference Range Interpretation Comments AGAP (test code = AGAP) 7.7 10.0-20.0 [facility] [id number] 17:53:00 Test Item Value Reference Range Interpretation Comments B/C Ratio (test code = B/C Ratio) 15 1 6-25 [facility] QWGTK7683-03-12 17:53:00 Test Item Value Reference Range Interpretation Comments Globulin (test code = Globulin) 2.8 2.7-4.2 [facility] QZSVD4612-04-33 17:53:00 Test Item Value Reference Range Interpretation Comments A/G Ratio (test code = A/G Ratio) 1.1 1 0.7-1.6 [facility] [id number] 17:53:00 Test Item Value Reference Range Interpretation Comments eGFR (test code = eGFR) 118 [facility] [id number] 17:53:00 Test Item Value Reference Range Interpretation Comments Lipase Lvl (test code = Lipase Lvl) 160 73-393 [facility] [id number] 17:53:00 Test Item Value Reference Range Interpretation Comments Bili Direct (test code 0.1 See_Comment [Aut omated message] The = Bili Direct) system which generated this result tra nsmitted reference range : <=0.3. The reference r peri was not used to int erpret this result as anselmo l/abnormal. [facility] DpxrnhtRMLYTGTFR8778-35-25 17:53:00 Test Item Value Reference Range Interpretation Comments Glucose Lvl (test code = Glucose Lvl) 107 70-99 [facility]GkibhpiEMKFXNTGH5439-38-54 17:53:00 Test Item Value Reference Range Interpretation Comments BUN (test code = BUN) 10 7-22 [facility] CenterFvsrhklUDPQKLAAU0695-39-64 17:53:00 Test Item Value Reference Range Interpretation Comments Creatinine Lvl (test code = Creatinine 0.67 0.50-1.40 Lvl) [facility] CenterAoaoojwOOLOJWDNV9326-57-23 17:53:00 Test Item Value Reference Range Interpretation Comments Sodium Lvl (test code = Sodium Lvl) 142 135-145 [facility] CenterOfdhkviYDLGJGHKW9261-86-31 17:53:00 Test Item Value Reference Range Interpretation Comments Potassium Lvl (test code = Potassium 3.7 3.5-5.1 Lvl) [facility] CenterPtcyzopMDFWPQNDV8047-29-19 17:53:00 Test Item Value Reference Range Interpretation Comments Chloride Lvl (test code = Chloride Lvl) 111 95-109 [facility] CenterHdvkshnWLOBGGEPR6436-98-54 17:53:00 Test Item Value Reference Range Interpretation Comments CO2 (test code = CO2) 27 24-32 [facility] CenterFjfuymrPZXZPBXPB7166-10-79 17:53:00 Test Item Value Reference Range Interpretation Comments Calcium Lvl (test code = Calcium Lvl) 9.4 8.5-10.5 [facility] CenterQwynrgcDCIUGLMCJ4633-32-14 17:53:00 Test Item Value Reference Range Interpretation Comments Total Protein (test code = Total 5.8 6.4-8.4 Protein) [facility] CenterIawollsLFYAUKQKL2859-91-85 17:53:00 Test Item Value Reference Range Interpretation Comments Albumin Lvl (test code = Albumin Lvl) 3.0 3.5-5.0 [facility] CenterBsjqzzxQCPEPHEOX3029-55-37 17:53:00 Test Item Value Reference Range Interpretation Comments ALT (test code = ALT) 26 See_Comment [Auto mated message] The system which ge nerated this result transmit suze reference range : <=65. The reference range was not used to interpr et this result as anselmo l/abnormal. [facility] CenterIeqwleqGWLQFYQNN4453-52-41 17:53:00 Test Item Value Reference Range Interpretation Comments AST (test code = AST) 18 See_Comment [Auto mated message] The system which ge nerated this result transmit suze reference range : <=37. The reference range was not used to interpr et this result as anselmo l/abnormal. [facility] CenterPtizyilDHWMDGZWA7427-70-40 17:53:00 Test Item Value Reference Range Interpretation Comments Alk Phos (test code = Alk Phos) 64 39-136 [facility] CenterIynkfbiCBWEVPANR9110-59-79 17:53:00 Test Item Value Reference Range Interpretation Comments Bili Total (test code = Bili Total) 0.5 0.2-1.3 [facility] CenterHqftlywDBUQCKHWL3259-17-91 17:53:00 Test Item Value Reference Range Interpretation Comments AGAP (test code = AGAP) 7.7 10.0-20.0 [facility] CenterAgobuaiDQFQHORCB0257-24-12 17:53:00 Test Item Value Reference Range Interpretation Comments B/C Ratio (test code = B/C Ratio) 15 1 6-25 [facility] CenterEakhawcJCSRQSWHS0743-91-11 17:53:00 Test Item Value Reference Range Interpretation Comments Globulin (test code = Globulin) 2.8 2.7-4.2 [facility] CenterQpkbwtaWCQDBCIJO7608-67-44 17:53:00 Test Item Value Reference Range Interpretation Comments A/G Ratio (test code = A/G Ratio) 1.1 1 0.7-1.6 [facility] CenterDjxljafSRSFVEDUC2423-26-34 17:53:00 Test Item Value Reference Range Interpretation Comments eGFR (test code = eGFR) 118 [facility] CenterMslibmbDQOPWUVGV7176-17-22 17:53:00 Test Item Value Reference Range Interpretation Comments Lipase Lvl (test code = Lipase Lvl) 160 73-393 [facility] CenterVxoqdpfXLZYFFPCW6925-99-58 17:53:00 Test Item Value Reference Range Interpretation Comments Acetaminoph Lvl (test code = no gt 10-20 Acetaminoph Lvl) [facility] CenterZisixraYJSABXOIE5357-93-66 17:53:00 Test Item Value Reference Range Interpretation Comments Ethanol Lvl (test code = Ethanol Lvl) no gt [facility] CenterFfncskgMUYPMDDWX3434-64-69 17:53:00 Test Item Value Reference Range Interpretation Comments Etoh (%) (test code = Etoh (%)) no gt [facility] CenterSkspzluOZTMEEHRN0665-92-95 17:53:00 Test Item Value Reference Range Interpretation Comments Salicylate Lvl (test no gt See_Comment [Autom ated message] The code = Salicylate Lvl) syste m which generated this result tra nsmitted reference range : <=30.0. The reference r peri was not used to int erpret this result as normal/abnormal . [facility] CenterZelwmmjHVYGWMRDU0715-23-88 17:53:00 Test Item Value Reference Range Interpretation Comments Bili Direct (test code 0.1 See_Comment [Aut omated message] The = Bili Direct) system which generated this result tra nsmitted reference range : <=0.3. The reference r peri was not used to int erpret this result as anselmo l/abnormal. [facility] HospitalMvzepueDKFYULJOXP7705-59-58 17:53:00 Test Item Value Reference Range Interpretation Comments WBC X 10x3 (test code = WBC X 10x3) 9.9 3.7-10.4 [facility] HospitalFbyatkfJLBBKBJHTF3124-44-17 17:53:00 Test Item Value Reference Range Interpretation Comments RBC X 10x6 (test code = RBC X 10x6) 4.74 4.70-6.10 [facility] HospitalBsfvwvpGFLFKGULAH5340-31-86 17:53:00 Test Item Value Reference Range Interpretation Comments Hgb (test code = Hgb) 14.5 14.0-18.0 [facility] HospitalHgvjzohCIMQTTRUZT4004-28-73 17:53:00 Test Item Value Reference Range Interpretation Comments Hct (test code = Hct) 43.9 42.0-54.0 [facility] HospitalCeghlmuNGDEQTZTUQ5423-08-30 17:53:00 Test Item Value Reference Range Interpretation Comments MCV (test code = MCV) 92.4 80.0-94.0 [facility] HospitalCbdnejbLNETCFUOQJ5690-98-74 17:53:00 Test Item Value Reference Range Interpretation Comments MCH (test code = MCH) 30.6 pg 27.0-31.0 [facility] HospitalUhutuleELPQRGBCXM2464-87-98 17:53:00 Test Item Value Reference Range Interpretation Comments MCHC (test code = MCHC) 33.1 32.0-36.0 [place] 848172-12-28 17:53:00 Test Item Value Reference Range Interpretation Comments RDW (test code = RDW) 13.5 11.5-14.5 [facility] HospitalFubgvqpEBUYJDUVKI2610-83-50 17:53:00 Test Item Value Reference Range Interpretation Comments Platelet (test code = Platelet) 229 133-450 [place] 848172-12-28 17:53:00 Test Item Value Reference Range Interpretation Comments MPV (test code = MPV) 8.6 7.4-10.4 [place] [address]-12-28 17:53:00 Test Item Value Reference Range Interpretation Comments Segs (test code = Segs) 72.3 45.0-75.0 [place] 848172-12-28 17:53:00 Test Item Value Reference Range Interpretation Comments Lymphocytes (test code = Lymphocytes) 16.4 20.0-40.0 [place] 848172-12-28 17:53:00 Test Item Value Reference Range Interpretation Comments Monocytes (test code = Monocytes) 7.4 2.0-12.0 [place] 848172-12-28 17:53:00 Test Item Value Reference Range Interpretation Comments Eosinophils (test code = 3.5 See_Comment [A utomated message] The Eosinophils) system which ge nerated this result tra nsmitted reference range : <=4.0. The reference r peri was not used to int erpret this result as normal/abnormal . [facility] HospitalXicteuwPDMSJXHPYL4574-95-50 17:53:00 Test Item Value Reference Range Interpretation Comments Basophils (test code = 0.4 See_Comment [Aut omated message] The Basophils) system which ge nerated this result tra nsmitted reference range : <=1.0. The reference r peri was not used to int erpret this result as normal/abnormal . [facility] HospitalLaciawoUUBJGNTUJJ3518-51-89 17:53:00 Test Item Value Reference Range Interpretation Comments Neutrophils # (test code = Neutrophils 7.1 1.5-8.1 #) [place] 848172-12-28 17:53:00 Test Item Value Reference Range Interpretation Comments Lymphocytes # (test code = Lymphocytes 1.6 1.0-5.5 #) [place] 848172-12-28 17:53:00 Test Item Value Reference Range Interpretation Comments Monocytes # (test code 0.7 See_Comment [Aut omated message] The = Monocytes #) system which generated this result tra nsmitted reference range : <=0.8. The reference r peri was not used to int erpret this result as normal/abnormal . [facility]UautxljFFIPCIDTJX4021-26-44 17:53:00 Test Item Value Reference Range Interpretation Comments Eosinophils # (test code 0.3 See_Comment [A utomated message] The = Eosinophils #) system whic h generated this result tra nsmitted reference range : <=0.5. The reference r peri was not used to int erpret this result as normal/abnormal . [facility]SlznfakQTBMAXEJYG6185-29-35 17:53:00 Test Item Value Reference Range Interpretation Comments Acetaminoph Lvl (test code = no gt 10-20 Acetaminoph Lvl) [facility] LancasterIwlodvuOMGJTQCHHD9186-27-99 17:53:00 Test Item Value Reference Range Interpretation Comments Ethanol Lvl (test code = Ethanol Lvl) no gt [facility] AliceSmazxheFPZZZNPRAK0883-62-82 17:53:00 Test Item Value Reference Range Interpretation Comments Etoh (%) (test code = Etoh (%)) no gt [facility] AliceZscryliDSVAGBOMED3715-96-39 17:53:00 Test Item Value Reference Range Interpretation Comments Salicylate Lvl (test no gt See_Comment [Autom ated message] The code = Salicylate Lvl) syste m which generated this result tra nsmitted reference range : <=30.0. The reference r peri was not used to int erpret this result as normal/abnormal . [facility] [id number] 17:53:00 Test Item Value Reference Range Interpretation Comments Glucose Lvl (test code = Glucose Lvl) 107 70-99 [facility] YMFSK7021-36-21 17:53:00 Test Item Value Reference Range Interpretation Comments BUN (test code = BUN) 10 7-22 [facility] [id number] 17:53:00 Test Item Value Reference Range Interpretation Comments Creatinine Lvl (test code = Creatinine 0.67 0.50-1.40 Lvl) [facility] AMRVL1691-88-18 17:53:00 Test Item Value Reference Range Interpretation Comments Sodium Lvl (test code = Sodium Lvl) 142 135-145 [facility] FFCPF8843-92-31 17:53:00 Test Item Value Reference Range Interpretation Comments Potassium Lvl (test code = Potassium 3.7 3.5-5.1 Lvl) [facility] [id number] 17:53:00 Test Item Value Reference Range Interpretation Comments Chloride Lvl (test code = Chloride Lvl) 111 95-109 [facility] NCVLB2565-98-35 17:53:00 Test Item Value Reference Range Interpretation Comments CO2 (test code = CO2) 27 24-32 [facility] [id number] 17:53:00 Test Item Value Reference Range Interpretation Comments Calcium Lvl (test code = Calcium Lvl) 9.4 8.5-10.5 [facility] [id number] 17:53:00 Test Item Value Reference Range Interpretation Comments Total Protein (test code = Total 5.8 6.4-8.4 Protein) [facility] KSHGD6883-76-44 17:53:00 Test Item Value Reference Range Interpretation Comments Albumin Lvl (test code = Albumin Lvl) 3.0 3.5-5.0 [facility] UCQON8644-27-22 17:53:00 Test Item Value Reference Range Interpretation Comments ALT (test code = ALT) 26 See_Comment [Auto mated message] The system which ge nerated this result transmit suze reference range : <=65. The reference range was not used to interpr et this result as anselmo l/abnormal. [facility] [employer] [id number] 17:53:00 Test Item Value Reference Range Interpretation Comments AST (test code = AST) 18 See_Comment [Auto mated message] The system which ge nerated this result transmit suze reference range : <=37. The reference range was not used to interpr et this result as anselmo l/abnormal. [facility] [employer] [id number] 17:53:00 Test Item Value Reference Range Interpretation Comments Alk Phos (test code = Alk Phos) 64 39-136 [facility] [employer] GBVVZ7960-90-63 17:53:00 Test Item Value Reference Range Interpretation Comments Bili Total (test code = Bili Total) 0.5 0.2-1.3 [facility] [id number] 17:53:00 Test Item Value Reference Range Interpretation Comments AGAP (test code = AGAP) 7.7 10.0-20.0 [facility] [id number] 17:53:00 Test Item Value Reference Range Interpretation Comments B/C Ratio (test code = B/C Ratio) 15 1 6-25 [place] [address]-12-28 17:53:00 Test Item Value Reference Range Interpretation Comments Globulin (test code = Globulin) 2.8 2.7-4.2 [place] [address]-12-28 17:53:00 Test Item Value Reference Range Interpretation Comments A/G Ratio (test code = A/G Ratio) 1.1 1 0.7-1.6 [place] [address]-12-28 17:53:00 Test Item Value Reference Range Interpretation Comments eGFR (test code = eGFR) 118 [place] 826522-12-28 17:53:00 Test Item Value Reference Range Interpretation Comments Lipase Lvl (test code = Lipase Lvl) 160 73-393 [place] 826522-12-28 17:53:00 Test Item Value Reference Range Interpretation Comments Bili Direct (test code 0.1 See_Comment [Aut omated message] The = Bili Direct) system which generated this result tra nsmitted reference range : <=0.3. The reference r peri was not used to int erpret this result as anselmo l/abnormal. [place] 610062-12-28 17:53:00 Test Item Value Reference Range Interpretation Comments Glucose Lvl (test code = Glucose Lvl) 107 70-99 [place] [address]-12-28 17:53:00 Test Item Value Reference Range Interpretation Comments BUN (test code = BUN) 10 7-22 [place] [address]-12-28 17:53:00 Test Item Value Reference Range Interpretation Comments Creatinine Lvl (test code = Creatinine 0.67 0.50-1.40 Lvl) [place] 610062-12-28 17:53:00 Test Item Value Reference Range Interpretation Comments Sodium Lvl (test code = Sodium Lvl) 142 135-145 [place] [address]-12-28 17:53:00 Test Item Value Reference Range Interpretation Comments Potassium Lvl (test code = Potassium 3.7 3.5-5.1 Lvl) [place] 610062-12-28 17:53:00 Test Item Value Reference Range Interpretation Comments Chloride Lvl (test code = Chloride Lvl) 111 95-109 [facility] DmywkaoEPOTUTYDW1563-05-18 17:53:00 Test Item Value Reference Range Interpretation Comments CO2 (test code = CO2) 27 24-32 [facility] CenterEaydxagRKZNWZLWB6002-17-67 17:53:00 Test Item Value Reference Range Interpretation Comments Calcium Lvl (test code = Calcium Lvl) 9.4 8.5-10.5 [facility] CenterUnbzefhABKYTFJJO3818-66-70 17:53:00 Test Item Value Reference Range Interpretation Comments Total Protein (test code = Total 5.8 6.4-8.4 Protein) [facility] CenterLvylghfATJTNPIPK2853-79-59 17:53:00 Test Item Value Reference Range Interpretation Comments Albumin Lvl (test code = Albumin Lvl) 3.0 3.5-5.0 [facility] CenterLkindbdPMHOMTEWV3963-02-63 17:53:00 Test Item Value Reference Range Interpretation Comments ALT (test code = ALT) 26 See_Comment [Auto mated message] The system which ge nerated this result transmit suze reference range : <=65. The reference range was not used to interpr et this result as anselmo l/abnormal. [facility] KyiqljbUDHJMZWWI4427-21-35 17:53:00 Test Item Value Reference Range Interpretation Comments AST (test code = AST) 18 See_Comment [Auto mated message] The system which ge nerated this result transmit suze reference range : <=37. The reference range was not used to interpr et this result as anselmo l/abnormal. [facility] VialdpoQELGOXWRS4889-28-56 17:53:00 Test Item Value Reference Range Interpretation Comments Alk Phos (test code = Alk Phos) 64 39-136 [facility] OxgainnFACROHPDL1017-16-56 17:53:00 Test Item Value Reference Range Interpretation Comments Bili Total (test code = Bili Total) 0.5 0.2-1.3 [facility] CenterNayyfgpLWVAEOZKD5635-87-69 17:53:00 Test Item Value Reference Range Interpretation Comments AGAP (test code = AGAP) 7.7 10.0-20.0 [facility] CenterVoawsnqJERUYKARD1106-92-77 17:53:00 Test Item Value Reference Range Interpretation Comments B/C Ratio (test code = B/C Ratio) 15 1 6-25 [facility] CenterIsvptztHTUZWWLSG1894-13-28 17:53:00 Test Item Value Reference Range Interpretation Comments Globulin (test code = Globulin) 2.8 2.7-4.2 [facility]WbuhscgQIVWRSVVT4002-10-93 17:53:00 Test Item Value Reference Range Interpretation Comments A/G Ratio (test code = A/G Ratio) 1.1 1 0.7-1.6 [facility] CenterEpfxgzeEEUUCMSFH8520-75-61 17:53:00 Test Item Value Reference Range Interpretation Comments eGFR (test code = eGFR) 118 [facility] CenterXzpxojcYDBPRSYTZ9450-76-29 17:53:00 Test Item Value Reference Range Interpretation Comments Lipase Lvl (test code = Lipase Lvl) 160 73-393 [facility] CenterIhmwnjuSKMOENOYH5467-35-31 17:53:00 Test Item Value Reference Range Interpretation Comments Acetaminoph Lvl (test code = no gt 10-20 Acetaminoph Lvl) [facility] CenterTlkgxjoVVIOSDIEG1613-67-11 17:53:00 Test Item Value Reference Range Interpretation Comments Ethanol Lvl (test code = Ethanol Lvl) no gt [facility] CenterGoyfyljNCBPLIMNL9675-86-03 17:53:00 Test Item Value Reference Range Interpretation Comments Etoh (%) (test code = Etoh (%)) no gt [facility] CenterPpnokkmEVGTOYUMG9965-89-33 17:53:00 Test Item Value Reference Range Interpretation Comments Salicylate Lvl (test no gt See_Comment [Autom ated message] The code = Salicylate Lvl) syste m which generated this result tra nsmitted reference range : <=30.0. The reference r peri was not used to int erpret this result as normal/abnormal . [facility] CenterLqksojiJGEEZRCDL7646-97-66 17:53:00 Test Item Value Reference Range Interpretation Comments Bili Direct (test code 0.1 See_Comment [Aut omated message] The = Bili Direct) system which generated this result tra nsmitted reference range : <=0.3. The reference r peri was not used to int erpret this result as anselmo l/abnormal. [facility] HospitalJjhymrmTJQDZIVHHR3042-06-70 17:53:00 Test Item Value Reference Range Interpretation Comments WBC X 10x3 (test code = WBC X 10x3) 9.9 3.7-10.4 [facility] HospitalNpxfajrPAXAMKLTFN7091-48-51 17:53:00 Test Item Value Reference Range Interpretation Comments RBC X 10x6 (test code = RBC X 10x6) 4.74 4.70-6.10 [place] 848172-12-28 17:53:00 Test Item Value Reference Range Interpretation Comments Hgb (test code = Hgb) 14.5 14.0-18.0 [place] 848172-12-28 17:53:00 Test Item Value Reference Range Interpretation Comments Hct (test code = Hct) 43.9 42.0-54.0 [place] 848172-12-28 17:53:00 Test Item Value Reference Range Interpretation Comments MCV (test code = MCV) 92.4 80.0-94.0 [place] 848172-12-28 17:53:00 Test Item Value Reference Range Interpretation Comments MCH (test code = MCH) 30.6 pg 27.0-31.0 [place] 848172-12-28 17:53:00 Test Item Value Reference Range Interpretation Comments MCHC (test code = MCHC) 33.1 32.0-36.0 [place] 848172-12-28 17:53:00 Test Item Value Reference Range Interpretation Comments RDW (test code = RDW) 13.5 11.5-14.5 [place] 848172-12-28 17:53:00 Test Item Value Reference Range Interpretation Comments Platelet (test code = Platelet) 229 133-450 [facility] HospitalDfcvnyjOXRYNIPBGZ4525-52-76 17:53:00 Test Item Value Reference Range Interpretation Comments MPV (test code = MPV) 8.6 7.4-10.4 [place] 848172-12-28 17:53:00 Test Item Value Reference Range Interpretation Comments Segs (test code = Segs) 72.3 45.0-75.0 [place] 848172-12-28 17:53:00 Test Item Value Reference Range Interpretation Comments Lymphocytes (test code = Lymphocytes) 16.4 20.0-40.0 [place] 848172-12-28 17:53:00 Test Item Value Reference Range Interpretation Comments Monocytes (test code = Monocytes) 7.4 2.0-12.0 [place] 848172-12-28 17:53:00 Test Item Value Reference Range Interpretation Comments Eosinophils (test code = 3.5 See_Comment [A utomated message] The Eosinophils) system which ge nerated this result tra nsmitted reference range : <=4.0. The reference r peri was not used to int erpret this result as normal/abnormal . [facility] HospitalTsoyqcdIMDIBRXCML0000-30-53 17:53:00 Test Item Value Reference Range Interpretation Comments Basophils (test code = 0.4 See_Comment [Aut omated message] The Basophils) system which ge nerated this result tra nsmitted reference range : <=1.0. The reference r peri was not used to int erpret this result as normal/abnormal . [facility] HospitalFtrpusyXWZGMCHJGW5880-32-93 17:53:00 Test Item Value Reference Range Interpretation Comments Neutrophils # (test code = Neutrophils 7.1 1.5-8.1 #) [place] 848172-12-28 17:53:00 Test Item Value Reference Range Interpretation Comments Lymphocytes # (test code = Lymphocytes 1.6 1.0-5.5 #) [facility] HospitalMniaekpOLILYVPJPJ4821-95-91 17:53:00 Test Item Value Reference Range Interpretation Comments Monocytes # (test code 0.7 See_Comment [Aut omated message] The = Monocytes #) system which generated this result tra nsmitted reference range : <=0.8. The reference r peri was not used to int erpret this result as normal/abnormal . [facility] HospitalGecfndyBSWHREXQQD6431-24-82 17:53:00 Test Item Value Reference Range Interpretation Comments Eosinophils # (test code 0.3 See_Comment [A utomated message] The = Eosinophils #) system whic h generated this result tra nsmitted reference range : <=0.5. The reference r peri was not used to int erpret this result as normal/abnormal . [facility] HospitalAyilitfYFESHFKFSK6746-84-17 17:53:00 Test Item Value Reference Range Interpretation Comments WBC X 10x3 (test code = WBC X 10x3) 9.9 3.7-10.4 [facility] HospitalAsjzohrASBBLRYPDY1050-80-73 17:53:00 Test Item Value Reference Range Interpretation Comments RBC X 10x6 (test code = RBC X 10x6) 4.74 4.70-6.10 [facility] HospitalQzcjprtSNZFNQUHTE8644-64-10 17:53:00 Test Item Value Reference Range Interpretation Comments Hgb (test code = Hgb) 14.5 14.0-18.0 [facility] HospitalGnafggpMNJGNPGMRB1939-89-43 17:53:00 Test Item Value Reference Range Interpretation Comments Hct (test code = Hct) 43.9 42.0-54.0 [facility] HospitalAgmhhymPMWFZEVZRV9818-94-40 17:53:00 Test Item Value Reference Range Interpretation Comments MCV (test code = MCV) 92.4 80.0-94.0 [facility] HospitalDiyfctbYDUDZZIKVE7467-28-78 17:53:00 Test Item Value Reference Range Interpretation Comments MCH (test code = MCH) 30.6 pg 27.0-31.0 [facility] HospitalJaxhdvjCKTHMGFHSB1000-15-16 17:53:00 Test Item Value Reference Range Interpretation Comments MCHC (test code = MCHC) 33.1 32.0-36.0 [facility] HospitalQviwcqgBVFNGRACNS9683-95-75 17:53:00 Test Item Value Reference Range Interpretation Comments RDW (test code = RDW) 13.5 11.5-14.5 [facility] HospitalHinwbrzOBXWBWNSAR7912-23-29 17:53:00 Test Item Value Reference Range Interpretation Comments Platelet (test code = Platelet) 229 133-450 [facility] HospitalUmgozayIGQOYHMRWK1145-22-86 17:53:00 Test Item Value Reference Range Interpretation Comments MPV (test code = MPV) 8.6 7.4-10.4 [facility] HospitalWwnysrgJWDQGWTGGN2532-93-76 17:53:00 Test Item Value Reference Range Interpretation Comments Segs (test code = Segs) 72.3 45.0-75.0 [facility] HospitalIuvgmbuIPBYCQJSGZ9874-31-27 17:53:00 Test Item Value Reference Range Interpretation Comments Lymphocytes (test code = Lymphocytes) 16.4 20.0-40.0 [place] 848172-12-28 17:53:00 Test Item Value Reference Range Interpretation Comments Monocytes (test code = Monocytes) 7.4 2.0-12.0 [place] 848172-12-28 17:53:00 Test Item Value Reference Range Interpretation Comments Eosinophils (test code = 3.5 See_Comment [A utomated message] The Eosinophils) system which ge nerated this result tra nsmitted reference range : <=4.0. The reference r peri was not used to int erpret this result as normal/abnormal . [place] [address]-12-28 17:53:00 Test Item Value Reference Range Interpretation Comments Basophils (test code = 0.4 See_Comment [Aut omated message] The Basophils) system which ge nerated this result tra nsmitted reference range : <=1.0. The reference r peri was not used to int erpret this result as normal/abnormal . [facility]qetytaKYWMBSLBYT3356-00-91 17:53:00 Test Item Value Reference Range Interpretation Comments Neutrophils # (test code = Neutrophils 7.1 1.5-8.1 #) [facility] HospitalYngjosdMQTEPFYCYY8367-81-57 17:53:00 Test Item Value Reference Range Interpretation Comments Lymphocytes # (test code = Lymphocytes 1.6 1.0-5.5 #) [facility] HospitalQmbmvkcKEVMPBBVDN0779-38-79 17:53:00 Test Item Value Reference Range Interpretation Comments Monocytes # (test code 0.7 See_Comment [Aut omated message] The = Monocytes #) system which generated this result tra nsmitted reference range : <=0.8. The reference r peri was not used to int erpret this result as normal/abnormal . [facility] HospitalRlvuyafJBCVKXFONA2369-85-02 17:53:00 Test Item Value Reference Range Interpretation Comments Eosinophils # (test code 0.3 See_Comment [A utomated message] The = Eosinophils #) system whic h generated this result tra nsmitted reference range : <=0.5. The reference r peri was not used to int erpret this result as normal/abnormal . [place] 66082022-12-28 17:53:00 Test Item Value Reference Range Interpretation Comments Acetaminoph Lvl (test code = no gt 10-20 Acetaminoph Lvl) [place] 66082022-12-28 17:53:00 Test Item Value Reference Range Interpretation Comments Ethanol Lvl (test code = Ethanol Lvl) no gt [place] 66082022-12-28 17:53:00 Test Item Value Reference Range Interpretation Comments Etoh (%) (test code = Etoh (%)) no gt [place] 66082022-12-28 17:53:00 Test Item Value Reference Range Interpretation Comments Salicylate Lvl (test no gt See_Comment [Autom ated message] The code = Salicylate Lvl) syste m which generated this result tra nsmitted reference range : <=30.0. The reference r peri was not used to int erpret this result as normal/abnormal . [place] 826522-12-28 17:53:00 Test Item Value Reference Range Interpretation Comments Glucose Lvl (test code = Glucose Lvl) 107 70-[address]12-28 17:53:00 Test Item Value Reference Range Interpretation Comments BUN (test code = BUN) 10 7-22 [place] 826522-12-28 17:53:00 Test Item Value Reference Range Interpretation Comments Creatinine Lvl (test code = Creatinine 0.67 0.50-1.40 Lvl) [place] [address]-12-28 17:53:00 Test Item Value Reference Range Interpretation Comments Sodium Lvl (test code = Sodium Lvl) 142 135-145 [place] 826522-12-28 17:53:00 Test Item Value Reference Range Interpretation Comments Potassium Lvl (test code = Potassium 3.7 3.5-5.1 Lvl) [facility] [id number] 17:53:00 Test Item Value Reference Range Interpretation Comments Chloride Lvl (test code = Chloride Lvl) 111 95-109 [place] [address]-12-28 17:53:00 Test Item Value Reference Range Interpretation Comments CO2 (test code = CO2) 27 24-32 [place] [address]-12-28 17:53:00 Test Item Value Reference Range Interpretation Comments Calcium Lvl (test code = Calcium Lvl) 9.4 8.5-10.5 [facility] [id number] 17:53:00 Test Item Value Reference Range Interpretation Comments Total Protein (test code = Total 5.8 6.4-8.4 Protein) [address]12-28 17:53:00 Test Item Value Reference Range Interpretation Comments Albumin Lvl (test code = Albumin Lvl) 3.0 3.5-5.0 [place] [address]-12-28 17:53:00 Test Item Value Reference Range Interpretation Comments ALT (test code = ALT) 26 See_Comment [Auto mated message] The system which ge nerated this result transmit suze reference range : <=65. The reference range was not used to interpr et this result as anselmo l/abnormal. [facility] [employer] [id number] 17:53:00 Test Item Value Reference Range Interpretation Comments AST (test code = AST) 18 See_Comment [Auto mated message] The system which ge nerated this result transmit suze reference range : <=37. The reference range was not used to interpr et this result as anselmo l/abnormal. [facility] [employer] [id number] 17:53:00 Test Item Value Reference Range Interpretation Comments Alk Phos (test code = Alk Phos) 64 39-136 [facility] [employer] [id number] 17:53:00 Test Item Value Reference Range Interpretation Comments Bili Total (test code = Bili Total) 0.5 0.2-1.3 [facility] [employer] [id number] 17:53:00 Test Item Value Reference Range Interpretation Comments AGAP (test code = AGAP) 7.7 10.0-20.0 [facility] [employer] [id number] 17:53:00 Test Item Value Reference Range Interpretation Comments B/C Ratio (test code = B/C Ratio) 15 1 6-25 [facility] [employer] [id number] 17:53:00 Test Item Value Reference Range Interpretation Comments Globulin (test code = Globulin) 2.8 2.7-4.2 [facility] [employer] [id number] 17:53:00 Test Item Value Reference Range Interpretation Comments A/G Ratio (test code = A/G Ratio) 1.1 1 0.7-1.6 [facility] [employer] [id number] 17:53:00 Test Item Value Reference Range Interpretation Comments eGFR (test code = eGFR) 118 [facility] [employer] [id number] 17:53:00 Test Item Value Reference Range Interpretation Comments Lipase Lvl (test code = Lipase Lvl) 160 73-393 [facility] [employer] [id number] 17:53:00 Test Item Value Reference Range Interpretation Comments Bili Direct (test code 0.1 See_Comment [Aut omated message] The = Bili Direct) system which generated this result tra nsmitted reference range : <=0.3. The reference r peri was not used to int erpret this result as anselmo l/abnormal. [facility] CenterSrfihwfHHOTOVXFI2931-60-06 17:53:00 Test Item Value Reference Range Interpretation Comments Glucose Lvl (test code = Glucose Lvl) 107 70-99 [place] [address]-12-28 17:53:00 Test Item Value Reference Range Interpretation Comments BUN (test code = BUN) 10 7-22 [place] 610062-12-28 17:53:00 Test Item Value Reference Range Interpretation Comments Creatinine Lvl (test code = Creatinine 0.67 0.50-1.40 Lvl) [facility] CenterRiaaxpyRJTWJJDPC9702-06-59 17:53:00 Test Item Value Reference Range Interpretation Comments Sodium Lvl (test code = Sodium Lvl) 142 135-145 [place] 610062-12-28 17:53:00 Test Item Value Reference Range Interpretation Comments Potassium Lvl (test code = Potassium 3.7 3.5-5.1 Lvl) [facility] CenterDfpmsegXIMJOQLHT9344-10-78 17:53:00 Test Item Value Reference Range Interpretation Comments Chloride Lvl (test code = Chloride Lvl) 111 95-109 [facility] CenterEbojokbNUJENDPKF7153-50-51 17:53:00 Test Item Value Reference Range Interpretation Comments CO2 (test code = CO2) 27 24-32 [facility] CenterMoyywksMWYKOHLZQ1618-63-97 17:53:00 Test Item Value Reference Range Interpretation Comments Calcium Lvl (test code = Calcium Lvl) 9.4 8.5-10.5 [facility] CenterWmviuzaDBQUEXXEG9936-25-01 17:53:00 Test Item Value Reference Range Interpretation Comments Total Protein (test code = Total 5.8 6.4-8.4 Protein) [facility] CenterJubjhmrGMRQSIMDO3437-23-90 17:53:00 Test Item Value Reference Range Interpretation Comments Albumin Lvl (test code = Albumin Lvl) 3.0 3.5-5.0 [place] 610062-12-28 17:53:00 Test Item Value Reference Range Interpretation Comments ALT (test code = ALT) 26 See_Comment [Auto mated message] The system which ge nerated this result transmit suze reference range : <=65. The reference range was not used to interpr et this result as anselmo l/abnormal. [place] 610062-12-28 17:53:00 Test Item Value Reference Range Interpretation Comments AST (test code = AST) 18 See_Comment [Auto mated message] The system which ge nerated this result transmit suze reference range : <=37. The reference range was not used to interpr et this result as anselmo l/abnormal. [facility] CenterIwkxefpTAYYCTURT1940-25-97 17:53:00 Test Item Value Reference Range Interpretation Comments Alk Phos (test code = Alk Phos) 64 39-136 [facility] CenterQtaysysKYNOAAYMV1700-42-91 17:53:00 Test Item Value Reference Range Interpretation Comments Bili Total (test code = Bili Total) 0.5 0.2-1.3 [facility] CenterOzhnrcbCEVLNMZAI0117-34-01 17:53:00 Test Item Value Reference Range Interpretation Comments AGAP (test code = AGAP) 7.7 10.0-20.0 [facility] CenterFyzylubDEDBWIOZP4450-47-38 17:53:00 Test Item Value Reference Range Interpretation Comments B/C Ratio (test code = B/C Ratio) 15 1 6-25 [facility] CenterKksezwqPORZWEBFT4101-18-88 17:53:00 Test Item Value Reference Range Interpretation Comments Globulin (test code = Globulin) 2.8 2.7-4.2 [facility] CenterEovjovjZCUQTSJKY5306-66-18 17:53:00 Test Item Value Reference Range Interpretation Comments A/G Ratio (test code = A/G Ratio) 1.1 1 0.7-1.6 [facility] CenterBljjketHVPRGKYVR6412-44-11 17:53:00 Test Item Value Reference Range Interpretation Comments eGFR (test code = eGFR) 118 [facility] CenterInsynpjLECDKKHET9410-02-78 17:53:00 Test Item Value Reference Range Interpretation Comments Lipase Lvl (test code = Lipase Lvl) 160 73-393 [facility] CenterCwvmrjqVJAWNELYT5457-38-27 17:53:00 Test Item Value Reference Range Interpretation Comments Acetaminoph Lvl (test code = no gt 10-20 Acetaminoph Lvl) [facility] CenterHyitsnyKEPTPOXVJ1542-69-10 17:53:00 Test Item Value Reference Range Interpretation Comments Ethanol Lvl (test code = Ethanol Lvl) no gt [facility] CenterSzwbaepTGMTVRDKT8315-89-83 17:53:00 Test Item Value Reference Range Interpretation Comments Etoh (%) (test code = Etoh (%)) no gt [facility] CenterRbssuhtUWLDJGUPZ1040-56-91 17:53:00 Test Item Value Reference Range Interpretation Comments Salicylate Lvl (test no gt See_Comment [Autom ated message] The code = Salicylate Lvl) syste m which generated this result tra nsmitted reference range : <=30.0. The reference r peri was not used to int erpret this result as normal/abnormal . [facility] CenterQzpgnliMIZXVYCQY8355-83-63 17:53:00 Test Item Value Reference Range Interpretation Comments Bili Direct (test code 0.1 See_Comment [Aut omated message] The = Bili Direct) system which generated this result tra nsmitted reference range : <=0.3. The reference r peri was not used to int erpret this result as anselmo l/abnormal. [facility] HospitalBscgbehTSSLXMENHM7682-19-00 17:53:00 Test Item Value Reference Range Interpretation Comments WBC X 10x3 (test code = WBC X 10x3) 9.9 3.7-10.4 [facility] HospitalWhfbcrnNQNLWEYPTD1592-06-76 17:53:00 Test Item Value Reference Range Interpretation Comments RBC X 10x6 (test code = RBC X 10x6) 4.74 4.70-6.10 [facility]zchgrlCESDLJNPQA8132-45-74 17:53:00 Test Item Value Reference Range Interpretation Comments Hgb (test code = Hgb) 14.5 14.0-18.0 [facility] HospitalZcqzxhrCTPGFFGDBV6604-26-40 17:53:00 Test Item Value Reference Range Interpretation Comments Hct (test code = Hct) 43.9 42.0-54.0 [facility] HospitalRzqvxlyFDLBSPQODE3445-93-16 17:53:00 Test Item Value Reference Range Interpretation Comments MCV (test code = MCV) 92.4 80.0-94.0 [facility] HospitalPdlldthEFBMGKNYUK1282-18-91 17:53:00 Test Item Value Reference Range Interpretation Comments MCH (test code = MCH) 30.6 pg 27.0-31.0 [facility] HospitalPtiqteqPLPPOZEJWG3010-10-28 17:53:00 Test Item Value Reference Range Interpretation Comments MCHC (test code = MCHC) 33.1 32.0-36.0 [facility] HospitalHvlobpfYAQEDCHHSR9762-65-09 17:53:00 Test Item Value Reference Range Interpretation Comments RDW (test code = RDW) 13.5 11.5-14.5 [place] 848172-12-28 17:53:00 Test Item Value Reference Range Interpretation Comments Platelet (test code = Platelet) 229 133-450 [place] 848172-12-28 17:53:00 Test Item Value Reference Range Interpretation Comments MPV (test code = MPV) 8.6 7.4-10.4 [place] 848172-12-28 17:53:00 Test Item Value Reference Range Interpretation Comments Segs (test code = Segs) 72.3 45.0-75.0 [place] 848172-12-28 17:53:00 Test Item Value Reference Range Interpretation Comments Lymphocytes (test code = Lymphocytes) 16.4 20.0-40.0 [place] 848172-12-28 17:53:00 Test Item Value Reference Range Interpretation Comments Monocytes (test code = Monocytes) 7.4 2.0-12.0 [facility] HospitalVsretztBPNBAYPGHM4118-27-43 17:53:00 Test Item Value Reference Range Interpretation Comments Eosinophils (test code = 3.5 See_Comment [A utomated message] The Eosinophils) system which ge nerated this result tra nsmitted reference range : <=4.0. The reference r peri was not used to int erpret this result as normal/abnormal . [facility] HospitalZwnlsbvTMEGFBXAQH1182-75-31 17:53:00 Test Item Value Reference Range Interpretation Comments Basophils (test code = 0.4 See_Comment [Aut omated message] The Basophils) system which ge nerated this result tra nsmitted reference range : <=1.0. The reference r peri was not used to int erpret this result as normal/abnormal . [facility] HospitalMeshpuxVWNKSVMDAQ8594-17-50 17:53:00 Test Item Value Reference Range Interpretation Comments Neutrophils # (test code = Neutrophils 7.1 1.5-8.1 #) [place] 848172-12-28 17:53:00 Test Item Value Reference Range Interpretation Comments Lymphocytes # (test code = Lymphocytes 1.6 1.0-5.5 #) [place] [address]-12-28 17:53:00 Test Item Value Reference Range Interpretation Comments Monocytes # (test code 0.7 See_Comment [Aut omated message] The = Monocytes #) system which generated this result tra nsmitted reference range : <=0.8. The reference r peri was not used to int erpret this result as normal/abnormal . [facility] HospitalGyjffoiUOWMEDCNFA5232-24-45 17:53:00 Test Item Value Reference Range Interpretation Comments Eosinophils # (test code 0.3 See_Comment [A utomated message] The = Eosinophils #) system [employer] h generated this result tra nsmitted reference range : <=0.5. The reference r peri was not used to int erpret this result as normal/abnormal . [facility] HospitalKldwioyWTBUUVJBFZ7847-44-42 17:53:00 Test Item Value Reference Range Interpretation Comments WBC X 10x3 (test code = WBC X 10x3) 9.9 3.7-10.4 [facility] HospitalVzrmeecIMQRSYPLYP8519-13-66 17:53:00 Test Item Value Reference Range Interpretation Comments RBC X 10x6 (test code = RBC X 10x6) 4.74 4.70-6.10 [facility] HospitalYbuqsukZXXQCLYVKH5307-87-53 17:53:00 Test Item Value Reference Range Interpretation Comments Hgb (test code = Hgb) 14.5 14.0-18.0 [facility] HospitalMbgrgwnYBFPUQUTWP2638-55-30 17:53:00 Test Item Value Reference Range Interpretation Comments Hct (test code = Hct) 43.9 42.0-54.0 [facility] HospitalNymrirxAXUJHIDMFQ8123-36-73 17:53:00 Test Item Value Reference Range Interpretation Comments MCV (test code = MCV) 92.4 80.0-94.0 [facility] HospitalCnxncavKEYWUMFERO6874-15-78 17:53:00 Test Item Value Reference Range Interpretation Comments MCH (test code = MCH) 30.6 pg 27.0-31.0 [facility] HospitalUvmfedtUOFBITDQBL4286-72-34 17:53:00 Test Item Value Reference Range Interpretation Comments MCHC (test code = MCHC) 33.1 32.0-36.0 [place] 848172-12-28 17:53:00 Test Item Value Reference Range Interpretation Comments RDW (test code = RDW) 13.5 11.5-14.5 [place] 848172-12-28 17:53:00 Test Item Value Reference Range Interpretation Comments Platelet (test code = Platelet) 229 133-450 [facility] HospitalQxxwmoqVAKQHYXOXF1620-79-06 17:53:00 Test Item Value Reference Range Interpretation Comments MPV (test code = MPV) 8.6 7.4-10.4 [place] 848172-12-28 17:53:00 Test Item Value Reference Range Interpretation Comments Segs (test code = Segs) 72.3 45.0-75.0 [place] [address]-12-28 17:53:00 Test Item Value Reference Range Interpretation Comments Lymphocytes (test code = Lymphocytes) 16.4 20.0-40.0 [place] [address]-12-28 17:53:00 Test Item Value Reference Range Interpretation Comments Monocytes (test code = Monocytes) 7.4 2.0-12.0 [place] [address]-12-28 17:53:00 Test Item Value Reference Range Interpretation Comments Eosinophils (test code = 3.5 See_Comment [A utomated message] The Eosinophils) system which ge nerated this result tra nsmitted reference range : <=4.0. The reference r peri was not used to int erpret this result as normal/abnormal . [place] 848172-12-28 17:53:00 Test Item Value Reference Range Interpretation Comments Basophils (test code = 0.4 See_Comment [Aut omated message] The Basophils) system which ge nerated this result tra nsmitted reference range : <=1.0. The reference r peri was not used to int erpret this result as normal/abnormal . [place] 848172-12-28 17:53:00 Test Item Value Reference Range Interpretation Comments Neutrophils # (test code = Neutrophils 7.1 1.5-8.1 #) [place] 848172-12-28 17:53:00 Test Item Value Reference Range Interpretation Comments Lymphocytes # (test code = Lymphocytes 1.6 1.0-5.5 #) [place] [address]-12-28 17:53:00 Test Item Value Reference Range Interpretation Comments Monocytes # (test code 0.7 See_Comment [Aut omated message] The = Monocytes #) system which generated this result tra nsmitted reference range : <=0.8. The reference r peri was not used to int erpret this result as normal/abnormal . [place] 848172-12-28 17:53:00 Test Item Value Reference Range Interpretation Comments Eosinophils # (test code 0.3 See_Comment [A utomated message] The = Eosinophils #) system whic h generated this result tra nsmitted reference range : <=0.5. The reference r peri was not used to int erpret this result as normal/abnormal . [facility]VexlnzeSBJKVSVXDP6736-58-75 17:53:00 Test Item Value Reference Range Interpretation Comments Acetaminoph Lvl (test code = no gt 10-20 Acetaminoph Lvl) [place] 510672-12-28 17:53:00 Test Item Value Reference Range Interpretation Comments Ethanol Lvl (test code = Ethanol Lvl) no gt [facility]AbpdvsnTKGIIFORNL1279-45-27 17:53:00 Test Item Value Reference Range Interpretation Comments Etoh (%) (test code = Etoh (%)) no gt [facility] CenterUxkefrcGHDNYOEADK8409-82-09 17:53:00 Test Item Value Reference Range Interpretation Comments Salicylate Lvl (test no gt See_Comment [Autom ated message] The code = Salicylate Lvl) syste m which generated this result tra nsmitted reference range : <=30.0. The reference r peri was not used to int erpret this result as normal/abnormal . [facility] [employer] [id number] 17:53:00 Test Item Value Reference Range Interpretation Comments Glucose Lvl (test code = Glucose Lvl) 107 70-99 [facility] [id number] 17:53:00 Test Item Value Reference Range Interpretation Comments BUN (test code = BUN) 10 7-22 [facility] [id number] 17:53:00 Test Item Value Reference Range Interpretation Comments Creatinine Lvl (test code = Creatinine 0.67 0.50-1.40 Lvl) [facility] [id number] 17:53:00 Test Item Value Reference Range Interpretation Comments Sodium Lvl (test code = Sodium Lvl) 142 135-145 [facility] YJLCV4300-80-09 17:53:00 Test Item Value Reference Range Interpretation Comments Potassium Lvl (test code = Potassium 3.7 3.5-5.1 Lvl) [facility] [id number] 17:53:00 Test Item Value Reference Range Interpretation Comments Chloride Lvl (test code = Chloride Lvl) 111 95-109 [facility] [employer] SPLEA6496-01-29 17:53:00 Test Item Value Reference Range Interpretation Comments CO2 (test code = CO2) 27 24-32 [facility] [employer] HNPXJ4805-28-51 17:53:00 Test Item Value Reference Range Interpretation Comments Calcium Lvl (test code = Calcium Lvl) 9.4 8.5-10.5 [facility] [employer] [id number] 17:53:00 Test Item Value Reference Range Interpretation Comments Total Protein (test code = Total 5.8 6.4-8.4 Protein) [facility] [employer] [id number] 17:53:00 Test Item Value Reference Range Interpretation Comments Albumin Lvl (test code = Albumin Lvl) 3.0 3.5-5.0 [facility] [employer] [id number] 17:53:00 Test Item Value Reference Range Interpretation Comments ALT (test code = ALT) 26 See_Comment [Auto mated message] The system which ge nerated this result transmit suze reference range : <=65. The reference range was not used to interpr et this result as anselmo l/abnormal. [facility] [employer] [id number] 17:53:00 Test Item Value Reference Range Interpretation Comments AST (test code = AST) 18 See_Comment [Auto mated message] The system which ge nerated this result transmit suze reference range : <=37. The reference range was not used to interpr et this result as anselmo l/abnormal. [facility] [employer] [id number] 17:53:00 Test Item Value Reference Range Interpretation Comments Alk Phos (test code = Alk Phos) 64 39-136 [facility] [employer] [id number] 17:53:00 Test Item Value Reference Range Interpretation Comments Bili Total (test code = Bili Total) 0.5 0.2-1.3 [facility] [employer] [id number] 17:53:00 Test Item Value Reference Range Interpretation Comments AGAP (test code = AGAP) 7.7 10.0-20.0 [facility] [employer] [id number] 17:53:00 Test Item Value Reference Range Interpretation Comments B/C Ratio (test code = B/C Ratio) 15 1 6-25 [facility] [employer] [id number] 17:53:00 Test Item Value Reference Range Interpretation Comments Globulin (test code = Globulin) 2.8 2.7-4.2 [facility]2022-12-28 17:53:00 Test Item Value Reference Range Interpretation Comments A/G Ratio (test code = A/G Ratio) 1.1 1 0.7-1.6 [facility]2022-12-28 17:53:00 Test Item Value Reference Range Interpretation Comments eGFR (test code = eGFR) 118 [facility]2022-12-28 17:53:00 Test Item Value Reference Range Interpretation Comments Lipase Lvl (test code = Lipase Lvl) 160 73-393 [facility]2022-12-28 17:53:00 Test Item Value Reference Range Interpretation Comments Bili Direct (test code 0.1 See_Comment [Aut omated message] The = Bili Direct) system which generated this result tra nsmitted reference range : <=0.3. The reference r peri was not used to int erpret this result as anselmo l/abnormal. [facility] CenterWqrbleoZOETLNDWI2168-44-47 17:53:00 Test Item Value Reference Range Interpretation Comments Glucose Lvl (test code = Glucose Lvl) 107 70-99 [facility] CenterJadnsyaDQOMZOCJO2998-06-25 17:53:00 Test Item Value Reference Range Interpretation Comments BUN (test code = BUN) 10 7-22 [facility] CenterDwklglkKVXJXZEMS8533-03-41 17:53:00 Test Item Value Reference Range Interpretation Comments Creatinine Lvl (test code = Creatinine 0.67 0.50-1.40 Lvl) [facility] CenterGxnoxviTRDUNBSAS5898-33-70 17:53:00 Test Item Value Reference Range Interpretation Comments Sodium Lvl (test code = Sodium Lvl) 142 135-145 [facility] CenterNltntaaTQGSYAYXE0994-50-74 17:53:00 Test Item Value Reference Range Interpretation Comments Potassium Lvl (test code = Potassium 3.7 3.5-5.1 Lvl) [facility] CenterNnpcwviGBJTFKFWO3650-24-85 17:53:00 Test Item Value Reference Range Interpretation Comments Chloride Lvl (test code = Chloride Lvl) 111 95-109 [place] 610062-12-28 17:53:00 Test Item Value Reference Range Interpretation Comments CO2 (test code = CO2) 27 24-32 [place] 610062-12-28 17:53:00 Test Item Value Reference Range Interpretation Comments Calcium Lvl (test code = Calcium Lvl) 9.4 8.5-10.5 [facility] MwbincnXDNUNWLUY0744-85-09 17:53:00 Test Item Value Reference Range Interpretation Comments Total Protein (test code = Total 5.8 6.4-8.4 Protein) [facility]WE[facility]VDGM7043[facility]57[facility]74 17:53:00 Test Item Value Reference Range Interpretation Comments Albumin Lvl (test code = Albumin Lvl) 3.0 3.5-5.0 [facility] KypyjbjLARRBTKKP0333-92-69 17:53:00 Test Item Value Reference Range Interpretation Comments ALT (test code = ALT) 26 See_Comment [Auto mated message] The system which ge nerated this result transmit suze reference range : <=65. The reference range was not used to interpr et this result as anselmo l/abnormal. [facility] UmzknqfHBDPPVRHQ3376-85-94 17:53:00 Test Item Value Reference Range Interpretation Comments AST (test code = AST) 18 See_Comment [Auto mated message] The system which ge nerated this result transmit suze reference range : <=37. The reference range was not used to interpr et this result as anselmo l/abnormal. [facility] KlfogcjCGFUPBCZC2391-03-95 17:53:00 Test Item Value Reference Range Interpretation Comments Alk Phos (test code = Alk Phos) 64 39-136 [facility] UgogthsYYPLNOYVZ1565-19-19 17:53:00 Test Item Value Reference Range Interpretation Comments Bili Total (test code = Bili Total) 0.5 0.2-1.3 [facility] OtwlmveANRQJQUDY5664-25-15 17:53:00 Test Item Value Reference Range Interpretation Comments AGAP (test code = AGAP) 7.7 10.0-20.0 [facility] RtgviaqBYPMSQNDG4371-81-81 17:53:00 Test Item Value Reference Range Interpretation Comments B/C Ratio (test code = B/C Ratio) 15 1 6-25 [facility]IodmzpdNBWRELKDT2553-85-17 17:53:00 Test Item Value Reference Range Interpretation Comments Globulin (test code = Globulin) 2.8 2.7-4.2 [facility] SszutfqXXDUKVFCQ4909-04-98 17:53:00 Test Item Value Reference Range Interpretation Comments A/G Ratio (test code = A/G Ratio) 1.1 1 0.7-1.6 [facility]TckqocoPPWZKADFQ0592-99-39 17:53:00 Test Item Value Reference Range Interpretation Comments eGFR (test code = eGFR) [address] [place] 610062-12-28 17:53:00 Test Item Value Reference Range Interpretation Comments Lipase Lvl (test code = Lipase Lvl) 160 73-393 [facility] CenterKnmbvzpIOOMIANCH7669-05-39 17:53:00 Test Item Value Reference Range Interpretation Comments Acetaminoph Lvl (test code = no gt 10-20 Acetaminoph Lvl) [facility] CenterUpomdggQNTAEIDRO1104-85-96 17:53:00 Test Item Value Reference Range Interpretation Comments Ethanol Lvl (test code = Ethanol Lvl) no gt [facility] CenterJsfxkhgBUUNOLHLD6776-06-02 17:53:00 Test Item Value Reference Range Interpretation Comments Etoh (%) (test code = Etoh (%)) no gt [facility] CenterWgdjnjrOIYESFVDJ1167-69-15 17:53:00 Test Item Value Reference Range Interpretation Comments Salicylate Lvl (test no gt See_Comment [Autom ated message] The code = Salicylate Lvl) syste m which generated this result tra nsmitted reference range : <=30.0. The reference r peri was not used to int erpret this result as normal/abnormal . [facility] CenterSqhktifCXBCEVUAC4196-33-47 17:53:00 Test Item Value Reference Range Interpretation Comments Bili Direct (test code 0.1 See_Comment [Aut omated message] The = Bili Direct) system which generated this result tra nsmitted reference range : <=0.3. The reference r peri was not used to int erpret this result as anselmo l/abnormal. [facility] HospitalGedjhirXFZUZMUUTG0649-01-11 17:53:00 Test Item Value Reference Range Interpretation Comments WBC X 10x3 (test code = WBC X 10x3) 9.9 3.7-10.4 [facility] HospitalLwahdneDMUGNLDWGQ6860-75-83 17:53:00 Test Item Value Reference Range Interpretation Comments RBC X 10x6 (test code = RBC X 10x6) 4.74 4.70-6.10 [facility] HospitalWivdxpoLLUQUVRMGZ0768-35-08 17:53:00 Test Item Value Reference Range Interpretation Comments Hgb (test code = Hgb) 14.5 14.0-18.0 [facility], Urinalysis Rflx Cult/Owwdr2434-90-62 09:26:00 Test Item Value Reference Range Interpretation Comments Color,Urine (test code = UCOL) Yellow Yellow Clarity,Urine (test code = Clear Clear UCLAR) Ph, Urine (test code = UPH) 7.0 5.0-9.0 N Specific [place],Urine (test 1.025 1.005-1.030 N code = USG) Blood,Urine (test code = UBLD) Small mg/dL Negative A Protein,Urine (test code = Negative mg/dL Negative UPRO) Glucose,Urine (UA) (test code Negative mg/dL Negative = UGLU) Ketones,Urine (test code = Trace mg/dL Negative A UKET) Nitrate,Urine (test code = Negative Negative UNIT) Bilirubin,Urine (test code = Negative mg/dL Negative UBIL) Urobilinogen,Urine (test code 1.0 E.U./dL Normal = UURO) Leukocyte Esterase,Urine (test Negative mg/dL Negative code = ULEU) UF REFLEXUF REFLEXUrine Mhjtxlvurhz9759-45-52 09:26:00 Test Item Value Reference Range Interpretation Comments RBC,Urine (test code = URBCUF) 11-25 /HPF 0-2 A WBC,Urine (test code = UWBCUF) None Seen /HPF 0-5 Epithelial Cell,Urine (test None Seen /HPF 0-5 code = UECUF) Casts,Urine (test code = None Seen /LPF None Seen UCASTUF) Bacteria,Urine (test code = None Seen /hpf None Seen UBACTUF) UF REFLEXUF REFLEXComprehensive Metabolic [id number] 09:26:00 Test Item Value Reference Range Interpretation Comments SODIUM (test code = NA) 141.0 mmol/L 136.0-145.0 N Potassium,K (test code = 4.9 mmol/L 3.0-5.1 N K) Chloride (test code = 111 mmol/L 98-107 H CL) Carbon Dioxide (test 25 mmol/L 20-31 N code = CO2) Anion Gap (test code = 5 mmol/L 5-15 N GAP) Blood Urea Nitrogen 15 mg/dL 9-23 N (test code = BUN) Creatinine (test code = 0.85 mg/dL 0.55-1.02 N CREATT) Creatinine Clr Calc 121.73 Pharmacy (test code = mL/min CRCLPHA) Estimated Glomerular 110 See_Comment Reporte d eGFR is Filt Rate (test code = based on the EGFR.XX) CKD-EPI 2020 equation thatdo es not use a race coefficient. Additional information can be found at:[id number] cb_ egfr_summary_fl angle 5.pdf (kidney.o rg) [Automated message] The system which generated this result transmit suze reference range : >=90 ml/min/1.73m2. The reference range was not used to interpret this result as normal/abnormal . BUN/Creatinine Ratio 18 ratio 10-20 N (test code = BCRATIO) Glucose (test code = 95 mg/dL 74-106 N GLU) Osmolality,Calculated 292.3 (test code = OSMOC) Calcium (test code = CA) 8.5 mg/dL 8.3-10.6 N Bilirubin,Total (test 0.5 mg/dL 0.2-1.1 N code = BILIT) Aspartate Amino 19 U/L 0-34 N Transferase (test code = AST) Alanine Aminotransferase 25 U/L 10-49 N (test code = ALT) Total Protein (test code 5.7 g/dL 5.7-8.2 N = TP) Albumin Level (test code 4.2 g/dL 3.2-4.8 N = ALB) Globulin (test code = 1.5 mg/dL 2.3-3.5 L GLOB) Albumin/Globulin Ratio 2.8 ratio 0.8-2.0 H (test code = AGRATIO) Alkaline Phosphatase 77 U/L 46-116 N (test code = ALP) Ethanol [id number] 09:26:00 Test Item Value Reference Range Interpretation Comments Ethanol (test code < 3 mg/dL The pharm acological = ETOH) response to blo od alcohol levels mayvary from individual to i ndividual. The fatal alyce ntrationhas been reported t o be >400mg/dL. Drug Screen,[id number] 09:26:00 Test Item Value Reference Range Interpretation Comments PCP Phencyclidine Screen,Urine (test Negative Negative code = PCPU) Amphetamine Screen,Urine (test code Negative Negative = AMPU) Methadone Screen,Urine (test code = Negative Negative METHU) Opiate Screen,Urine (test code = Negative Negative UOPIS) Barbituates Screen,Urine (test code Negative Negative = BARBU) Benzodiazepines Screen,Urine (test Negative Negative code = UBENZS) Cocaine Screen,Urine (test code = Negative Negative UCOCS) Cannabinoid Screen,Urine (test code Positive Negative A = UTHCS) Propoxyphene Screen, Urine (test Negative Negative code = UPROP) Complete Blood Count Auto [id number] 09:26:00 Test Item Value Reference Range Interpretation Comments White Blood Count (test code = 8.2 x10 3/uL 4.4-10.5 N WBCT) Red Blood Count (test code = 4.64 x10 6/uL 4.10-5.70 N RBC) Hemoglobin (test code = HGBT) 14.6 g/dL 13.4-17.4 N Hematocrit (test code = HCTT) 44.7 % 38.7-52.0 N Mean Corpuscular Volume (test 96.30 fL 80.00-100.00 N code = MCV) Mean Corpuscular Hemoglobin 31.5 pg 27.0-32.5 N (test code = MCH) Mean Corpuscular HGB Conc 32.70 g/dL 32.00-37.50 N (test code = MCHC) RDW Coefficient of Variation 12.9 % 11.5-14.5 N (test code = RDWCV) Platelet Count (test code = 242.0 x10 3/uL 140.0-440.0 N PLTT) Mean Platelet Volume (test 10.8 fL code = MPV) Immature Granulocytes % (Auto) 0.7 % 0.0-5.0 N (test code = IMMGRAN%) Neutrophils % (Auto) (test 69.9 % 36.0-70.0 N code = NE%) Lymphocytes % (Auto) (test 20.1 % 12.0-44.0 N code = LY%) Monocytes % (Auto) (test code 7.2 % 0.0-11.0 N = MO%) Eosinophils % (Auto) (test 1.5 % 0.0-7.0 N code = EO%) Basophils % (Auto) (test code 0.6 % 0.0-2.0 N = BA%) Immature Granulocytes # (Auto) 0.06 x10 3/uL (test code = IMMGRAN#) Neutrophils # (Auto) (test 5.7 x10 3/uL 1.6-7.4 N code = NE#) Lymphocytes # (Auto) (test 1.64 x10 3/uL 0.50-4.60 N code = LY#) Monocytes # (Auto) (test code 0.59 x10 3/uL 0.00-1.20 N = MO#) Eosinophils # (Auto) (test 0.12 x10 3/uL 0.00-0.74 N code = EO#) Basophils # (Auto) (test code 0.05 x10 3/uL 0.00-0.21 N = BA#) nRBC Abs (test code = NRBCA) 0 nRBC Pct (test code = NRBCP) 0 % [id number] 22:53:00 Test Item Value Reference Range Interpretation Comments Glucose POC (test code = Glucose POC) [address]12-14 22:53:00 Test Item Value Reference Range Interpretation Comments Gluc POC Comment 1 (test code Notified RN/MD = Gluc POC Comment 1) [address]12-14 22:53:00 Test Item Value Reference Range Interpretation Comments Glucose POC (test code = Glucose POC) [address]12-14 22:53:00 Test Item Value Reference Range Interpretation Comments Gluc POC Comment 1 (test code Notified RN/MD = Gluc POC Comment 1) [address]12-14 22:53:00 Test Item Value Reference Range Interpretation Comments Glucose POC (test code = Glucose POC) [address]12-14 22:53:00 Test Item Value Reference Range Interpretation Comments Gluc POC Comment 1 (test code Notified RN/MD = Gluc POC Comment 1) [address]12-14 22:53:00 Test Item Value Reference Range Interpretation Comments Glucose POC (test code = Glucose POC) [address]12-14 22:53:00 Test Item Value Reference Range Interpretation Comments Gluc POC Comment 1 (test code Notified RN/MD = Gluc POC Comment 1) [address]12-14 22:53:00 Test Item Value Reference Range Interpretation Comments Glucose POC (test code = Glucose POC) 102 70- [address]12-14 22:53:00 Test Item Value Reference Range Interpretation Comments Gluc POC Comment 1 (test code Notified RN/MD = Gluc POC Comment 1) [address]12-14 22:53:00 Test Item Value Reference Range Interpretation Comments Glucose POC (test code = Glucose POC) 102 70-99 [address]12-14 22:53:00 Test Item Value Reference Range Interpretation Comments Gluc POC Comment 1 (test code Notified RN/MD = Gluc POC Comment 1) [address]12-14 22:53:00 Test Item Value Reference Range Interpretation Comments Glucose POC (test code = Glucose POC) 102 70 [address]12-14 22:53:00 Test Item Value Reference Range Interpretation Comments Gluc POC Comment 1 (test code Notified RN/MD = Gluc POC Comment 1) [place] [address]-12-14 22:53:00 Test Item Value Reference Range Interpretation Comments Glucose POC (test code = Glucose POC) [address]12-14 22:53:00 Test Item Value Reference Range Interpretation Comments Gluc POC Comment 1 (test code Notified RN/MD = Gluc POC Comment 1) [address]12-12 17:05:00 Test Item Value Reference Range Interpretation Comments Coronavirus (COVID-19) Not Detected [place] (test code = (04/18/22 11:05 AM) Coronavirus (COVID-19) CAMERON) [address]12-12 17:05:00 Test Item Value Reference Range Interpretation Comments Coronavirus (COVID-19) Not Detected [place] (test code = (04/18/22 11:05 AM) Coronavirus (COVID-19) [place]) [address]12-12 17:05:00 Test Item Value Reference Range Interpretation Comments Coronavirus (COVID-19) Not Detected [place] (test code = (04/18/22 11:05 AM) Coronavirus (COVID-19) [place]) [place] [address]-12-12 17:05:00 Test Item Value Reference Range Interpretation Comments Coronavirus (COVID-19) Not Detected [place] (test code = (04/18/22 11:05 AM) Coronavirus (COVID-19) [place]) [place] [address]-12-12 17:05:00 Test Item Value Reference Range Interpretation Comments Coronavirus (COVID-19) Not Detected [place] (test code = (04/18/22 11:05 AM) Coronavirus (COVID-19) [place]) [place] [address]-12-12 17:05:00 Test Item Value Reference Range Interpretation Comments Coronavirus (COVID-19) Not Detected [place] (test code = (04/18/22 11:05 AM) Coronavirus (COVID-19) [place]) [place] [address]-12-12 17:05:00 Test Item Value Reference Range Interpretation Comments Coronavirus (COVID-19) Not Detected [place] (test code = (04/18/22 11:05 AM) Coronavirus (COVID-19) [place]) [place] 495522-12-12 17:05:00 Test Item Value Reference Range Interpretation Comments Coronavirus (COVID-19) Not Detected [place] (test code = (04/18/22 11:05 AM) Coronavirus (COVID-19) [place]) [facility]xldxmgRFXDUGGDGZ0745-91-11 17:05:00 Test Item Value Reference Range Interpretation Comments Coronavirus (COVID-19) Not Detected [place] (test code = (04/18/22 11:05 AM) Coronavirus (COVID-19) CAM[place]ON) [place] 495522-12-12 17:05:00 Test Item Value Reference Range Interpretation Comments Coronavirus (COVID-19) Not Detected [place] (test code = (04/18/22 11:05 AM) Coronavirus (COVID-19) CAMERON) [facility]2022-12-11 11:20:00 Test Item Value Reference Range Interpretation Comments Total CK (test code = Total CK) 104 12-191 [facility]2022-12-11 11:20:00 Test Item Value Reference Range Interpretation Comments Glucose Lvl (test code = Glucose Lvl) 95 70-99 [facility]2022-12-11 11:20:00 Test Item Value Reference Range Interpretation Comments BUN (test code = BUN) 10 7-22 [place] 826522-12-11 11:20:00 Test Item Value Reference Range Interpretation Comments Creatinine Lvl (test code = Creatinine 0.70 0.50-1.40 Lvl) [place] 826522-12-11 11:20:00 Test Item Value Reference Range Interpretation Comments Sodium Lvl (test code = Sodium Lvl) 142 135-145 [place] 826522-12-11 11:20:00 Test Item Value Reference Range Interpretation Comments Potassium Lvl (test code = Potassium 3.8 3.5-5.1 Lvl) [place] 826522-12-11 11:20:00 Test Item Value Reference Range Interpretation Comments Chloride Lvl (test code = Chloride Lvl) 108 95-109 [place] 826522-12-11 11:20:00 Test Item Value Reference Range Interpretation Comments CO2 (test code = CO2) 24 24-32 [place] 826522-12-11 11:20:00 Test Item Value Reference Range Interpretation Comments AGAP (test code = AGAP) 13.8 10.0-20.0 [place] 826522-12-11 11:20:00 Test Item Value Reference Range Interpretation Comments Calcium Lvl (test code = Calcium Lvl) 9.7 8.5-10.5 [place] 826522-12-11 11:20:00 Test Item Value Reference Range Interpretation Comments B/C Ratio (test code = B/C Ratio) 14 1 6-25 [place] 826522-12-11 11:20:00 Test Item Value Reference Range Interpretation Comments Total Protein (test code = Total 5.9 6.4-8.4 Protein) [place] 826522-12-11 11:20:00 Test Item Value Reference Range Interpretation Comments Albumin Lvl (test code = Albumin Lvl) 2.9 3.5-5.0 [place] 826522-12-11 11:20:00 Test Item Value Reference Range Interpretation Comments Globulin (test code = Globulin) 3.0 2.7-4.2 [place] 826522-12-11 11:20:00 Test Item Value Reference Range Interpretation Comments A/G Ratio (test code = A/G Ratio) 1.0 1 0.7-1.6 [facility] [employer] [id number] 11:20:00 Test Item Value Reference Range Interpretation Comments ALT (test code = ALT) 36 See_Comment [Auto mated message] The system which ge nerated this result transmit suze reference range : <=65. The reference range was not used to interpr et this result as anselmo l/abnormal. [facility] [id number] 11:20:00 Test Item Value Reference Range Interpretation Comments AST (test code = AST) 23 See_Comment [Auto mated message] The system which ge nerated this result transmit suze reference range : <=37. The reference range was not used to interpr et this result as anselmo l/abnormal. [facility] [id number] 11:20:00 Test Item Value Reference Range Interpretation Comments Alk Phos (test code = Alk Phos) 77 39-136 [facility] JJKNA4596-82-03 11:20:00 Test Item Value Reference Range Interpretation Comments Bili Total (test code = Bili Total) 0.2 0.2-1.3 [facility] MDSXY6732-04-77 11:20:00 Test Item Value Reference Range Interpretation Comments eGFR (test code = eGFR) 117 [facility] CenterHrvnmtwGJMXQQIFH0019-06-85 11:20:00 Test Item Value Reference Range Interpretation Comments Total CK (test code = Total CK) 104 12-191 [facility] CenterQimyzzvWMWQZJLOH5173-78-37 11:20:00 Test Item Value Reference Range Interpretation Comments Glucose Lvl (test code = Glucose Lvl) 95 70-99 [facility] CenterGsfzbkhJYSBCDBVJ8481-51-11 11:20:00 Test Item Value Reference Range Interpretation Comments BUN (test code = BUN) 10 7-22 [facility] CenterMrfueolVBDWREYAH8984-81-41 11:20:00 Test Item Value Reference Range Interpretation Comments Creatinine Lvl (test code = Creatinine 0.70 0.50-1.40 Lvl) [place] 610062-12-11 11:20:00 Test Item Value Reference Range Interpretation Comments Sodium Lvl (test code = Sodium Lvl) 142 135-145 [facility] CenterBcakcbvLHLQHKUFH2980-28-92 11:20:00 Test Item Value Reference Range Interpretation Comments Potassium Lvl (test code = Potassium 3.8 3.5-5.1 Lvl) [facility] CenterMcwxtegCMZCPVNAB0059-39-21 11:20:00 Test Item Value Reference Range Interpretation Comments Chloride Lvl (test code = Chloride Lvl) 108 95-109 [place] 610062-12-11 11:20:00 Test Item Value Reference Range Interpretation Comments CO2 (test code = CO2) 24 24-32 [place] 610062-12-11 11:20:00 Test Item Value Reference Range Interpretation Comments AGAP (test code = AGAP) 13.8 10.0-20.0 [facility] CenterLojgwnyENZVQOWGB5914-77-31 11:20:00 Test Item Value Reference Range Interpretation Comments Calcium Lvl (test code = Calcium Lvl) 9.7 8.5-10.5 [facility] CenterAcoxuujDYWGWROFL5785-64-13 11:20:00 Test Item Value Reference Range Interpretation Comments B/C Ratio (test code = B/C Ratio) 14 1 6-25 [facility] CenterBrjdlolXHOZKCNHI2582-15-62 11:20:00 Test Item Value Reference Range Interpretation Comments Total Protein (test code = Total 5.9 6.4-8.4 Protein) [facility] CenterDrenxysNANCFLJRR8674-71-83 11:20:00 Test Item Value Reference Range Interpretation Comments Albumin Lvl (test code = Albumin Lvl) 2.9 3.5-5.0 [facility] CenterIneeglvXNSBVXOLN4191-66-06 11:20:00 Test Item Value Reference Range Interpretation Comments Globulin (test code = Globulin) 3.0 2.7-4.2 [facility] CenterPteozifSHENYKRTX6918-69-36 11:20:00 Test Item Value Reference Range Interpretation Comments A/G Ratio (test code = A/G Ratio) 1.0 1 0.7-1.6 [facility] CenterAdrdghbIDVFVHOGC2100-83-29 11:20:00 Test Item Value Reference Range Interpretation Comments ALT (test code = ALT) 36 See_Comment [Auto mated message] The system which ge nerated this result transmit suze reference range : <=65. The reference range was not used to interpr et this result as anselmo l/abnormal. [facility] CenterYvduevyTSBTGFHZW6086-45-75 11:20:00 Test Item Value Reference Range Interpretation Comments AST (test code = AST) 23 See_Comment [Auto mated message] The system which ge nerated this result transmit suze reference range : <=37. The reference range was not used to interpr et this result as anselmo l/abnormal. [facility] CenterRmbcsjdGFAWBVFWD2825-47-08 11:20:00 Test Item Value Reference Range Interpretation Comments Alk Phos (test code = Alk Phos) 77 39-136 [facility] CenterIgaozpkPREIQFFOJ0370-75-46 11:20:00 Test Item Value Reference Range Interpretation Comments Bili Total (test code = Bili Total) 0.2 0.2-1.3 [facility] CenterRzdaxtxXATDOYBOZ1641-30-26 11:20:00 Test Item Value Reference Range Interpretation Comments eGFR (test code = eGFR) 117 [facility] HospitalLnppsqcZAXADHSRRM4455-64-61 11:20:00 Test Item Value Reference Range Interpretation Comments WBC (test code = WBC) 7.7 3.7-10.4 [facility] HospitalStbjffrFZJKEBWGBC4365-56-06 11:20:00 Test Item Value Reference Range Interpretation Comments RBC (test code = RBC) 4.42 4.70-6.10 [facility] HospitalDymxyvkISXVVLCPKL7352-88-05 11:20:00 Test Item Value Reference Range Interpretation Comments Hgb (test code = Hgb) 13.7 14.0-18.0 [facility] HospitalVazxyhtWQGZSNKNNC1326-53-52 11:20:00 Test Item Value Reference Range Interpretation Comments Hct (test code = Hct) 40.0 42.0-54.0 [facility] HospitalXfuzrvxFSVLIAOTXQ8554-64-37 11:20:00 Test Item Value Reference Range Interpretation Comments MCV (test code = MCV) 90.7 80.0-94.0 [facility] HospitalJdnxrjcESTIEJQWGE1108-77-65 11:20:00 Test Item Value Reference Range Interpretation Comments MCH (test code = MCH) 31.0 pg 27.0-31.0 [facility] HospitalIghohusFSYCXDTIVZ1854-53-38 11:20:00 Test Item Value Reference Range Interpretation Comments MCHC (test code = MCHC) 34.2 32.0-36.0 [place] 848172-12-11 11:20:00 Test Item Value Reference Range Interpretation Comments RDW (test code = RDW) 12.7 11.5-14.5 [facility] HospitalKfekotgUJDVIMOYEJ3453-21-40 11:20:00 Test Item Value Reference Range Interpretation Comments Platelet (test code = Platelet) 213 133-450 [facility] HospitalSpmpipeTUPZQNMCNH8047-06-63 11:20:00 Test Item Value Reference Range Interpretation Comments MPV (test code = MPV) 9.5 7.4-10.4 [place] 848172-12-11 11:20:00 Test Item Value Reference Range Interpretation Comments Segs (test code = Segs) 49.3 45.0-75.0 [place] 848172-12-11 11:20:00 Test Item Value Reference Range Interpretation Comments Lymphocytes (test code = Lymphocytes) 38.0 20.0-40.0 [place] 848172-12-11 11:20:00 Test Item Value Reference Range Interpretation Comments Monocytes (test code = Monocytes) 7.1 2.0-12.0 [place] 848172-12-11 11:20:00 Test Item Value Reference Range Interpretation Comments Eosinophils (test code = 4.9 See_Comment [A utomated message] The Eosinophils) system which ge nerated this result tra nsmitted reference range : <=4.0. The reference r peri was not used to int erpret this result as normal/abnormal . [place] 848172-12-11 11:20:00 Test Item Value Reference Range Interpretation Comments Basophils (test code = 0.7 See_Comment [Aut omated message] The Basophils) system which ge nerated this result tra nsmitted reference range : <=1.0. The reference r peri was not used to int erpret this result as normal/abnormal . [facility] HospitalRfhjlliKFNHFCLPBD2246-71-24 11:20:00 Test Item Value Reference Range Interpretation Comments Neutrophils # (test code = Neutrophils 3.8 1.5-8.1 #) [place] 848172-12-11 11:20:00 Test Item Value Reference Range Interpretation Comments Lymphocytes # (test code = Lymphocytes 2.9 1.0-5.5 #) [place] [address]-12-11 11:20:00 Test Item Value Reference Range Interpretation Comments Monocytes # (test code 0.5 See_Comment [Aut omated message] The = Monocytes #) system which generated this result tra nsmitted reference range : <=0.8. The reference r peri was not used to int erpret this result as normal/abnormal . [facility]ubdPAHUAIZVHP6602[facility] 11:20:00 Test Item Value Reference Range Interpretation Comments Eosinophils # (test code 0.4 See_Comment [A utomated message] The = Eosinophils #) system whic h generated this result tra nsmitted reference range : <=0.5. The reference r peri was not used to int erpret this result as normal/abnormal . [facility] HospitalFkjjofwMQTMWEMKXT0554-35-60 11:20:00 Test Item Value Reference Range Interpretation Comments Basophils # (test code 0.1 See_Comment [Aut omated message] The = Basophils #) system which generated this result tra nsmitted reference range : <=0.2. The reference r peri was not used to int erpret this result as normal/abnormal . [facility] [id number] 11:20:00 Test Item Value Reference Range Interpretation Comments Total CK (test code = Total CK) 104 12-191 [facility] [id number] 11:20:00 Test Item Value Reference Range Interpretation Comments Glucose Lvl (test code = Glucose Lvl) 95 70-99 [facility] [id number] 11:20:00 Test Item Value Reference Range Interpretation Comments BUN (test code = BUN) 10 7-22 [facility] [id number] 11:20:00 Test Item Value Reference Range Interpretation Comments Creatinine Lvl (test code = Creatinine 0.70 0.50-1.40 Lvl) [facility]2022-12-11 11:20:00 Test Item Value Reference Range Interpretation Comments Sodium Lvl (test code = Sodium Lvl) 142 135-145 [facility] [id number] 11:20:00 Test Item Value Reference Range Interpretation Comments Potassium Lvl (test code = Potassium 3.8 3.5-5.1 Lvl) [facility] [id number] 11:20:00 Test Item Value Reference Range Interpretation Comments Chloride Lvl (test code = Chloride Lvl) 108 95-109 [facility] [id number] 11:20:00 Test Item Value Reference Range Interpretation Comments CO2 (test code = CO2) 24 24-32 [facility] [id number] 11:20:00 Test Item Value Reference Range Interpretation Comments AGAP (test code = AGAP) 13.8 10.0-20.0 [place] [address]-12-11 11:20:00 Test Item Value Reference Range Interpretation Comments Calcium Lvl (test code = Calcium Lvl) 9.7 8.5-10.5 [place] [address]-12-11 11:20:00 Test Item Value Reference Range Interpretation Comments B/C Ratio (test code = B/C Ratio) 14 1 6-25 [place] [address]-12-11 11:20:00 Test Item Value Reference Range Interpretation Comments Total Protein (test code = Total 5.9 6.4-8.4 Protein) [place] [address]-12-11 11:20:00 Test Item Value Reference Range Interpretation Comments Albumin Lvl (test code = Albumin Lvl) 2.9 3.5-5.0 [place] [address]-12-11 11:20:00 Test Item Value Reference Range Interpretation Comments Globulin (test code = Globulin) 3.0 2.7-4.2 [place] [address]-12-11 11:20:00 Test Item Value Reference Range Interpretation Comments A/G Ratio (test code = A/G Ratio) 1.0 1 0.7-1.6 [place] [address]-12-11 11:20:00 Test Item Value Reference Range Interpretation Comments ALT (test code = ALT) 36 See_Comment [Auto mated message] The system which ge nerated this result transmit suze reference range : <=65. The reference range was not used to interpr et this result as anselmo l/abnormal. [place] 826522-12-11 11:20:00 Test Item Value Reference Range Interpretation Comments AST (test code = AST) 23 See_Comment [Auto mated message] The system which ge nerated this result transmit suze reference range : <=37. The reference range was not used to interpr et this result as anselmo l/abnormal. [place] [address]-12-11 11:20:00 Test Item Value Reference Range Interpretation Comments Alk Phos (test code = Alk Phos) 77 39-136 [place] 826522-12-11 11:20:00 Test Item Value Reference Range Interpretation Comments Bili Total (test code = Bili Total) 0.2 0.2-1.3 [facility]2022-12-11 11:20:00 Test Item Value Reference Range Interpretation Comments eGFR (test code = eGFR) 117 [facility]CbbuoanPBRDWRKTU1253-48-12 11:20:00 Test Item Value Reference Range Interpretation Comments Total CK (test code = Total CK) 104 12-191 [facility] CenterQdnmtcwWTUNRCKAY6589-36-80 11:20:00 Test Item Value Reference Range Interpretation Comments Glucose Lvl (test code = Glucose Lvl) 95 70-99 [facility] CenterUsoltrbXFGFTFJQD1299-98-78 11:20:00 Test Item Value Reference Range Interpretation Comments BUN (test code = BUN) 10 7-22 [facility] CenterAcztqozKFRWVTYOO2530-51-26 11:20:00 Test Item Value Reference Range Interpretation Comments Creatinine Lvl (test code = Creatinine 0.70 0.50-1.40 Lvl) [facility] CenterDjwwvjzRKRCTHVTW7372-55-49 11:20:00 Test Item Value Reference Range Interpretation Comments Sodium Lvl (test code = Sodium Lvl) 142 135-145 [facility] CenterPeymbuiOWCZLRZDQ6659-02-42 11:20:00 Test Item Value Reference Range Interpretation Comments Potassium Lvl (test code = Potassium 3.8 3.5-5.1 Lvl) [facility] CenterFnkvvpbSORTIYLEC7389-27-46 11:20:00 Test Item Value Reference Range Interpretation Comments Chloride Lvl (test code = Chloride Lvl) 108 95-109 [facility] CenterKnpaqgnXQBBSMNIZ0820-44-77 11:20:00 Test Item Value Reference Range Interpretation Comments CO2 (test code = CO2) 24 24-32 [facility] CenterYbqvvpaZZOQXNBFG6429-25-95 11:20:00 Test Item Value Reference Range Interpretation Comments AGAP (test code = AGAP) 13.8 10.0-20.0 [facility] CenterQpjllomMEJSAFVYX5798-18-37 11:20:00 Test Item Value Reference Range Interpretation Comments Calcium Lvl (test code = Calcium Lvl) 9.7 8.5-10.5 [facility] CenterSagrzzeIOJDHIPFP0184-41-78 11:20:00 Test Item Value Reference Range Interpretation Comments B/C Ratio (test code = B/C Ratio) 14 1 6-25 [facility] CenterOobzllfZBBUTHFFX7605-29-54 11:20:00 Test Item Value Reference Range Interpretation Comments Total Protein (test code = Total 5.9 6.4-8.4 Protein) [facility] CenterYdloqmhLQYJFSMGV2345-52-46 11:20:00 Test Item Value Reference Range Interpretation Comments Albumin Lvl (test code = Albumin Lvl) 2.9 3.5-5.0 [facility] CenterJanntmtFLIDTBIVU6755-59-10 11:20:00 Test Item Value Reference Range Interpretation Comments Globulin (test code = Globulin) 3.0 2.7-4.2 [facility] CenterVutvsoqSFSHXJQEO7843-99-79 11:20:00 Test Item Value Reference Range Interpretation Comments A/G Ratio (test code = A/G Ratio) 1.0 1 0.7-1.6 [facility] CenterJlzzdeoQCFCZVFQH2198-06-29 11:20:00 Test Item Value Reference Range Interpretation Comments ALT (test code = ALT) 36 See_Comment [Auto mated message] The system which ge nerated this result transmit suze reference range : <=65. The reference range was not used to interpr et this result as anselmo l/abnormal. [facility] CenterHoyhravOJSWYRRAX2265-19-46 11:20:00 Test Item Value Reference Range Interpretation Comments AST (test code = AST) 23 See_Comment [Auto mated message] The system which ge nerated this result transmit suze reference range : <=37. The reference range was not used to interpr et this result as anselmo l/abnormal. [facility] CenterUjsutbvWROTDZUCE5602-90-62 11:20:00 Test Item Value Reference Range Interpretation Comments Alk Phos (test code = Alk Phos) 77 39-136 [facility] CenterGbdoqjjCIPTXAHHN9209-88-64 11:20:00 Test Item Value Reference Range Interpretation Comments Bili Total (test code = Bili Total) 0.2 0.2-1.3 [facility] CenterQslhyooIISMJDOCO7788-39-79 11:20:00 Test Item Value Reference Range Interpretation Comments eGFR (test code = eGFR) 117 [facility] HospitalAjtifbzKQHVSLBDNL5773-16-49 11:20:00 Test Item Value Reference Range Interpretation Comments WBC (test code = WBC) 7.7 3.7-10.4 [facility] HospitalInlrvuaNGOOENZFXG6506-46-86 11:20:00 Test Item Value Reference Range Interpretation Comments RBC (test code = RBC) 4.42 4.70-6.10 [place] 848172-12-11 11:20:00 Test Item Value Reference Range Interpretation Comments Hgb (test code = Hgb) 13.7 14.0-18.0 [place] 848172-12-11 11:20:00 Test Item Value Reference Range Interpretation Comments Hct (test code = Hct) 40.0 42.0-54.0 [place] [address]-12-11 11:20:00 Test Item Value Reference Range Interpretation Comments MCV (test code = MCV) 90.7 80.0-94.0 [place] 848172-12-11 11:20:00 Test Item Value Reference Range Interpretation Comments MCH (test code = MCH) 31.0 pg 27.0-31.0 [place] [address]-12-11 11:20:00 Test Item Value Reference Range Interpretation Comments MCHC (test code = MCHC) 34.2 32.0-36.0 [place] 848172-12-11 11:20:00 Test Item Value Reference Range Interpretation Comments RDW (test code = RDW) 12.7 11.5-14.5 [place] 848172-12-11 11:20:00 Test Item Value Reference Range Interpretation Comments Platelet (test code = Platelet) 213 133-450 [facility] HospitalGdwgzreNGMULMKVYN7618-47-82 11:20:00 Test Item Value Reference Range Interpretation Comments MPV (test code = MPV) 9.5 7.4-10.4 [place] [address]-12-11 11:20:00 Test Item Value Reference Range Interpretation Comments Segs (test code = Segs) 49.3 45.0-75.0 [place] 848172-12-11 11:20:00 Test Item Value Reference Range Interpretation Comments Lymphocytes (test code = Lymphocytes) 38.0 20.0-40.0 [place] [address]-12-11 11:20:00 Test Item Value Reference Range Interpretation Comments Monocytes (test code = Monocytes) 7.1 2.0-12.0 [place] [address]-12-11 11:20:00 Test Item Value Reference Range Interpretation Comments Eosinophils (test code = 4.9 See_Comment [A utomated message] The Eosinophils) system which ge nerated this result tra nsmitted reference range : <=4.0. The reference r peri was not used to int erpret this result as normal/abnormal . [facility]wtlgvxYNVTBOSZJM2828-98-18 11:20:00 Test Item Value Reference Range Interpretation Comments Basophils (test code = 0.7 See_Comment [Aut omated message] The Basophils) system which ge nerated this result tra nsmitted reference range : <=1.0. The reference r peri was not used to int erpret this result as normal/abnormal . [facility] HospitalYysexqcCSYOFHIFJT5990-26-22 11:20:00 Test Item Value Reference Range Interpretation Comments Neutrophils # (test code = Neutrophils 3.8 1.5-8.1 #) [facility] HospitalVwxojojBIVOWXHKWM9148-38-97 11:20:00 Test Item Value Reference Range Interpretation Comments Lymphocytes # (test code = Lymphocytes 2.9 1.0-5.5 #) [facility] HospitalDozzygsMESLVFPYCN9668-79-69 11:20:00 Test Item Value Reference Range Interpretation Comments Monocytes # (test code 0.5 See_Comment [Aut omated message] The = Monocytes #) system which generated this result tra nsmitted reference range : <=0.8. The reference r peri was not used to int erpret this result as normal/abnormal . [facility] HospitalYukmmidLVYHRTBOGE2707-38-14 11:20:00 Test Item Value Reference Range Interpretation Comments Eosinophils # (test code 0.4 See_Comment [A utomated message] The = Eosinophils #) system whic h generated this result tra nsmitted reference range : <=0.5. The reference r peri was not used to int erpret this result as normal/abnormal . [facility] HospitalSkwuavvREPRGHSSOD7943-63-68 11:20:00 Test Item Value Reference Range Interpretation Comments Basophils # (test code 0.1 See_Comment [Aut omated message] The = Basophils #) system which generated this result tra nsmitted reference range : <=0.2. The reference r peri was not used to int erpret this result as normal/abnormal . [facility] BJXMJYE5932-47-12 11:20:00 Test Item Value Reference Range Interpretation Comments Total CK (test code = Total CK) 104 12-191 [facility] CenterCHEM GVOXO8260-87-51 11:20:00 Test Item Value Reference Range Interpretation Comments Glucose Lvl (test code = Glucose Lvl) 95 70-99 [facility]2022-12-11 11:20:00 Test Item Value Reference Range Interpretation Comments BUN (test code = BUN) 10 7-22 [place] 826522-12-11 11:20:00 Test Item Value Reference Range Interpretation Comments Creatinine Lvl (test code = Creatinine 0.70 0.50-1.40 Lvl) [place] 826522-12-11 11:20:00 Test Item Value Reference Range Interpretation Comments Sodium Lvl (test code = Sodium Lvl) 142 135-145 [place] 826522-12-11 11:20:00 Test Item Value Reference Range Interpretation Comments Potassium Lvl (test code = Potassium 3.8 3.5-5.1 Lvl) [place] 826522-12-11 11:20:00 Test Item Value Reference Range Interpretation Comments Chloride Lvl (test code = Chloride Lvl) 108 95-109 [place] 826522-12-11 11:20:00 Test Item Value Reference Range Interpretation Comments CO2 (test code = CO2) 24 24-32 [place] 826522-12-11 11:20:00 Test Item Value Reference Range Interpretation Comments AGAP (test code = AGAP) 13.8 10.0-20.0 [place] 826522-12-11 11:20:00 Test Item Value Reference Range Interpretation Comments Calcium Lvl (test code = Calcium Lvl) 9.7 8.5-10.5 [facility]2022-12-11 11:20:00 Test Item Value Reference Range Interpretation Comments B/C Ratio (test code = B/C Ratio) 14 1 6-25 [place] 826522-12-11 11:20:00 Test Item Value Reference Range Interpretation Comments Total Protein (test code = Total 5.9 6.4-8.4 Protein) [place] 826522-12-11 11:20:00 Test Item Value Reference Range Interpretation Comments Albumin Lvl (test code = Albumin Lvl) 2.9 3.5-5.0 [place] 826522-12-11 11:20:00 Test Item Value Reference Range Interpretation Comments Globulin (test code = Globulin) 3.0 2.7-4.2 [place] [address]-12-11 11:20:00 Test Item Value Reference Range Interpretation Comments A/G Ratio (test code = A/G Ratio) 1.0 1 0.7-1.6 [place] [address]-12-11 11:20:00 Test Item Value Reference Range Interpretation Comments ALT (test code = ALT) 36 See_Comment [Auto mated message] The system which ge nerated this result transmit suze reference range : <=65. The reference range was not used to interpr et this result as anselmo l/abnormal. [place] 826522-12-11 11:20:00 Test Item Value Reference Range Interpretation Comments AST (test code = AST) 23 See_Comment [Auto mated message] The system which ge nerated this result transmit suze reference range : <=37. The reference range was not used to interpr et this result as anselmo l/abnormal. [place] [address]-12-11 11:20:00 Test Item Value Reference Range Interpretation Comments Alk Phos (test code = Alk Phos) 77 39-136 [place] 826522-12-11 11:20:00 Test Item Value Reference Range Interpretation Comments Bili Total (test code = Bili Total) 0.2 0.2-1.3 [place] 826522-12-11 11:20:00 Test Item Value Reference Range Interpretation Comments eGFR (test code = eGFR) 117 [facility] CenterFaeszglKPPZNCFZB5932-06-05 11:20:00 Test Item Value Reference Range Interpretation Comments Total CK (test code = Total CK) 104 12-191 [facility] CenterFznexceJLKGMJZBN3030-75-95 11:20:00 Test Item Value Reference Range Interpretation Comments Glucose Lvl (test code = Glucose Lvl) 95 70-99 [place] [address]-12-11 11:20:00 Test Item Value Reference Range Interpretation Comments BUN (test code = BUN) 10 7-22 [place] 610062-12-11 11:20:00 Test Item Value Reference Range Interpretation Comments Creatinine Lvl (test code = Creatinine 0.70 0.50-1.40 Lvl) [facility] CenterDexkrmzPNLCVVVZM0518-72-00 11:20:00 Test Item Value Reference Range Interpretation Comments Sodium Lvl (test code = Sodium Lvl) 142 135-145 [address]12-11 11:20:00 Test Item Value Reference Range Interpretation Comments Potassium Lvl (test code = Potassium 3.8 3.5-5.1 Lvl) [facility] CenterFuexvoxIZWVMMIUH7372-28-55 11:20:00 Test Item Value Reference Range Interpretation Comments Chloride Lvl (test code = Chloride Lvl) 108 95-109 [facility] CenterArrmhbgNEFKMTAKN3643-96-34 11:20:00 Test Item Value Reference Range Interpretation Comments CO2 (test code = CO2) 24 24-32 [facility] CenterNtpstxdHMJSCHSRG3057-52-88 11:20:00 Test Item Value Reference Range Interpretation Comments AGAP (test code = AGAP) 13.8 10.0-20.0 [facility] CenterSygrxuyKBAORLQCK1155-37-27 11:20:00 Test Item Value Reference Range Interpretation Comments Calcium Lvl (test code = Calcium Lvl) 9.7 8.5-10.5 [facility] CenterPycdwibHVCZFJYLI7614-44-94 11:20:00 Test Item Value Reference Range Interpretation Comments B/C Ratio (test code = B/C Ratio) 14 1 6-25 [facility] CenterJyeqmotHFHIYRNHJ7869-59-97 11:20:00 Test Item Value Reference Range Interpretation Comments Total Protein (test code = Total 5.9 6.4-8.4 Protein) [facility] CenterWrwigsoQRSPQIFAP0431-89-63 11:20:00 Test Item Value Reference Range Interpretation Comments Albumin Lvl (test code = Albumin Lvl) 2.9 3.5-5.0 [facility] CenterEqvrxowBHYDCNROJ9994-88-90 11:20:00 Test Item Value Reference Range Interpretation Comments Globulin (test code = Globulin) 3.0 2.7-4.2 [facility] CenterMulrhluVPICFLSSQ4393-17-22 11:20:00 Test Item Value Reference Range Interpretation Comments A/G Ratio (test code = A/G Ratio) 1.0 1 0.7-1.6 [facility] CenterPwsuqllLXGCRPRCQ9960-45-41 11:20:00 Test Item Value Reference Range Interpretation Comments ALT (test code = ALT) 36 See_Comment [Auto mated message] The system which ge nerated this result transmit suze reference range : <=65. The reference range was not used to interpr et this result as anselmo l/abnormal. [facility] CenterMnzkfufJYKKTHDWT1520-47-62 11:20:00 Test Item Value Reference Range Interpretation Comments AST (test code = AST) 23 See_Comment [Auto mated message] The system which ge nerated this result transmit suze reference range : <=37. The reference range was not used to interpr et this result as anselmo l/abnormal. [facility] CenterQxzssmpRPJGUYEWY8763-66-81 11:20:00 Test Item Value Reference Range Interpretation Comments Alk Phos (test code = Alk Phos) 77 39-136 [facility] CenterDvpxwylJPJQTMNJZ6286-71-11 11:20:00 Test Item Value Reference Range Interpretation Comments Bili Total (test code = Bili Total) 0.2 0.2-1.3 [facility] CenterEiwsiysYZJIPNPSI4998-77-65 11:20:00 Test Item Value Reference Range Interpretation Comments eGFR (test code = eGFR) 117 [facility] HospitalDmyctvfFGGHIQGPND6653-05-38 11:20:00 Test Item Value Reference Range Interpretation Comments WBC (test code = WBC) 7.7 3.7-10.4 [facility] HospitalDbthtfiSIGGPKOSWP4187-39-15 11:20:00 Test Item Value Reference Range Interpretation Comments RBC (test code = RBC) 4.42 4.70-6.10 [facility] HospitalIsbmgjwDTJOLQMTQI0108-77-23 11:20:00 Test Item Value Reference Range Interpretation Comments Hgb (test code = Hgb) 13.7 14.0-18.0 [facility] HospitalVkjplptPCXFXEWOAF0246-96-62 11:20:00 Test Item Value Reference Range Interpretation Comments Hct (test code = Hct) 40.0 42.0-54.0 [facility] HospitalXeyfkneBJNBSTESEG6742-34-99 11:20:00 Test Item Value Reference Range Interpretation Comments MCV (test code = MCV) 90.7 80.0-94.0 [facility] HospitalEkdiqgoETSQTMNHVF9171-69-07 11:20:00 Test Item Value Reference Range Interpretation Comments MCH (test code = MCH) 31.0 pg 27.0-31.0 [facility] HospitalLjgevmdATZPERAQAP6879-20-98 11:20:00 Test Item Value Reference Range Interpretation Comments MCHC (test code = MCHC) 34.2 32.0-36.0 [facility] HospitalTpswgflUNUWIUCOJN7212-79-48 11:20:00 Test Item Value Reference Range Interpretation Comments RDW (test code = RDW) 12.7 11.5-14.5 [place] 848172-12-11 11:20:00 Test Item Value Reference Range Interpretation Comments Platelet (test code = Platelet) 213 133-450 [place] 848172-12-11 11:20:00 Test Item Value Reference Range Interpretation Comments MPV (test code = MPV) 9.5 7.4-10.4 [place] 848172-12-11 11:20:00 Test Item Value Reference Range Interpretation Comments Segs (test code = Segs) 49.3 45.0-75.0 [place] 848172-12-11 11:20:00 Test Item Value Reference Range Interpretation Comments Lymphocytes (test code = Lymphocytes) 38.0 20.0-40.0 [place] [address]-12-11 11:20:00 Test Item Value Reference Range Interpretation Comments Monocytes (test code = Monocytes) 7.1 2.0-12.0 [place] 848172-12-11 11:20:00 Test Item Value Reference Range Interpretation Comments Eosinophils (test code = 4.9 See_Comment [A utomated message] The Eosinophils) system which ge nerated this result tra nsmitted reference range : <=4.0. The reference r peri was not used to int erpret this result as normal/abnormal . [place] 848172-12-11 11:20:00 Test Item Value Reference Range Interpretation Comments Basophils (test code = 0.7 See_Comment [Aut omated message] The Basophils) system which ge nerated this result tra nsmitted reference range : <=1.0. The reference r peri was not used to int erpret this result as normal/abnormal . [facility] HospitalGtfdzjrEUVTTSDXWJ8184-66-79 11:20:00 Test Item Value Reference Range Interpretation Comments Neutrophils # (test code = Neutrophils 3.8 1.5-8.1 #) [place] 848172-12-11 11:20:00 Test Item Value Reference Range Interpretation Comments Lymphocytes # (test code = Lymphocytes 2.9 1.0-5.5 #) [place] [address]-12-11 11:20:00 Test Item Value Reference Range Interpretation Comments Monocytes # (test code 0.5 See_Comment [Aut omated message] The = Monocytes #) system which generated this result tra nsmitted reference range : <=0.8. The reference r peri was not used to int erpret this result as normal/abnormal . [facility] CenterKssrmcdLFUVRTSXFA0391-52-90 11:20:00 Test Item Value Reference Range Interpretation Comments Eosinophils # (test code 0.4 See_Comment [A utomated message] The = Eosinophils #) system whic h generated this result tra nsmitted reference range : <=0.5. The reference r peri was not used to int erpret this result as normal/abnormal . [facility]InnjzvfKXPIQNWVOW3041-52-09 11:20:00 Test Item Value Reference Range Interpretation Comments Basophils # (test code 0.1 See_Comment [Aut omated message] The = Basophils #) system which generated this result tra nsmitted reference range : <=0.2. The reference r peri was not used to int erpret this result as normal/abnormal . [facility] XCXEDCI8421-05-85 11:20:00 Test Item Value Reference Range Interpretation Comments Total CK (test code = Total CK) 104 12-191 [facility] MERDQ7636-29-04 11:20:00 Test Item Value Reference Range Interpretation Comments Glucose Lvl (test code = Glucose Lvl) 95 70-99 [facility] BLUIX2760-11-84 11:20:00 Test Item Value Reference Range Interpretation Comments BUN (test code = BUN) 10 7-22 [facility] FZOMV0557-66-23 11:20:00 Test Item Value Reference Range Interpretation Comments Creatinine Lvl (test code = Creatinine 0.70 0.50-1.40 Lvl) [facility] KMHLV2881-60-43 11:20:00 Test Item Value Reference Range Interpretation Comments Sodium Lvl (test code = Sodium Lvl) 142 135-145 [facility] XIRQN8238-10-36 11:20:00 Test Item Value Reference Range Interpretation Comments Potassium Lvl (test code = Potassium 3.8 3.5-5.1 Lvl) [facility] AZBUM7384-33-09 11:20:00 Test Item Value Reference Range Interpretation Comments Chloride Lvl (test code = Chloride Lvl) 108 95-109 [facility] KBNKM2531-25-48 11:20:00 Test Item Value Reference Range Interpretation Comments CO2 (test code = CO2) 24 24-32 [place] [address]-12-11 11:20:00 Test Item Value Reference Range Interpretation Comments AGAP (test code = AGAP) 13.8 10.0-20.0 [place] [address]-12-11 11:20:00 Test Item Value Reference Range Interpretation Comments Calcium Lvl (test code = Calcium Lvl) 9.7 8.5-10.5 [place] 826522-12-11 11:20:00 Test Item Value Reference Range Interpretation Comments B/C Ratio (test code = B/C Ratio) 14 1 6-25 [place] [address]-12-11 11:20:00 Test Item Value Reference Range Interpretation Comments Total Protein (test code = Total 5.9 6.4-8.4 Protein) [place] [address]-12-11 11:20:00 Test Item Value Reference Range Interpretation Comments Albumin Lvl (test code = Albumin Lvl) 2.9 3.5-5.0 [place] [address]-12-11 11:20:00 Test Item Value Reference Range Interpretation Comments Globulin (test code = Globulin) 3.0 2.7-4.2 [place] [address]-12-11 11:20:00 Test Item Value Reference Range Interpretation Comments A/G Ratio (test code = A/G Ratio) 1.0 1 0.7-1.6 [place] [address]-12-11 11:20:00 Test Item Value Reference Range Interpretation Comments ALT (test code = ALT) 36 See_Comment [Auto mated message] The system which ge nerated this result transmit suze reference range : <=65. The reference range was not used to interpr et this result as anselmo l/abnormal. [facility] [id number] 11:20:00 Test Item Value Reference Range Interpretation Comments AST (test code = AST) 23 See_Comment [Auto mated message] The system which ge nerated this result transmit suze reference range : <=37. The reference range was not used to interpr et this result as anselmo l/abnormal. [facility] [id number] 11:20:00 Test Item Value Reference Range Interpretation Comments Alk Phos (test code = Alk Phos) 77 39-136 [facility] [id number] 11:20:00 Test Item Value Reference Range Interpretation Comments Bili Total (test code = Bili Total) 0.2 0.2-1.3 [facility]2022-12-11 11:20:00 Test Item Value Reference Range Interpretation Comments eGFR (test code = eGFR) 117 [facility]MzkbvkxDGBTDWGHO8387-32-81 11:20:00 Test Item Value Reference Range Interpretation Comments Total CK (test code = Total CK) 104 12-191 [facility] CenterNqliihxDMSIFAWRT8616-63-02 11:20:00 Test Item Value Reference Range Interpretation Comments Glucose Lvl (test code = Glucose Lvl) 95 70-99 [facility] CenterCpjvxnrJKVDNSAXO3447-82-21 11:20:00 Test Item Value Reference Range Interpretation Comments BUN (test code = BUN) 10 7-22 [facility] CenterIjcvgtlZXUJAZOCC4188-96-62 11:20:00 Test Item Value Reference Range Interpretation Comments Creatinine Lvl (test code = Creatinine 0.70 0.50-1.40 Lvl) [facility] CenterKprijruTVMPOLVNP6894-70-14 11:20:00 Test Item Value Reference Range Interpretation Comments Sodium Lvl (test code = Sodium Lvl) 142 135-145 [facility] CenterDfgmyvpLWXVOUDFY3030-26-40 11:20:00 Test Item Value Reference Range Interpretation Comments Potassium Lvl (test code = Potassium 3.8 3.5-5.1 Lvl) [facility] CenterExsfbutDRYATDOBW2344-30-34 11:20:00 Test Item Value Reference Range Interpretation Comments Chloride Lvl (test code = Chloride Lvl) 108 95-109 [facility] CenterItobzmaQZKNUYZQV1967-37-10 11:20:00 Test Item Value Reference Range Interpretation Comments CO2 (test code = CO2) 24 24-32 [facility] CenterOuuyjbtBDFQLYADP6743-52-97 11:20:00 Test Item Value Reference Range Interpretation Comments AGAP (test code = AGAP) 13.8 10.0-20.0 [facility] CenterNqiyzsjIQCZXLUDV3308-06-25 11:20:00 Test Item Value Reference Range Interpretation Comments Calcium Lvl (test code = Calcium Lvl) 9.7 8.5-10.5 [facility] CenterDuiptskATGDJSMST1347-30-99 11:20:00 Test Item Value Reference Range Interpretation Comments B/C Ratio (test code = B/C Ratio) 14 1 6-25 [place] 610062-12-11 11:20:00 Test Item Value Reference Range Interpretation Comments Total Protein (test code = Total 5.9 6.4-8.4 Protein) [facility] CenterHkwtvmxJSUHJLZBT6138-87-55 11:20:00 Test Item Value Reference Range Interpretation Comments Albumin Lvl (test code = Albumin Lvl) 2.9 3.5-5.0 [place] [address]-12-11 11:20:00 Test Item Value Reference Range Interpretation Comments Globulin (test code = Globulin) 3.0 2.7-4.2 [facility] CenterUtmvdypYQWQNISQI1856-65-03 11:20:00 Test Item Value Reference Range Interpretation Comments A/G Ratio (test code = A/G Ratio) 1.0 1 0.7-1.6 [facility] CenterDnaviumHCILFVWEO3021-17-07 11:20:00 Test Item Value Reference Range Interpretation Comments ALT (test code = ALT) 36 See_Comment [Auto mated message] The system which ge nerated this result transmit suze reference range : <=65. The reference range was not used to interpr et this result as anselmo l/abnormal. [facility] CenterVwxgdiiQIBKSJKVJ1999-46-37 11:20:00 Test Item Value Reference Range Interpretation Comments AST (test code = AST) 23 See_Comment [Auto mated message] The system which ge nerated this result transmit suze reference range : <=37. The reference range was not used to interpr et this result as anselmo l/abnormal. [facility] CenterIfdaoaqWFEREPJBD9697-78-65 11:20:00 Test Item Value Reference Range Interpretation Comments Alk Phos (test code = Alk Phos) 77 39-136 [facility] CenterBuntaagLLFLYREXV0506-22-39 11:20:00 Test Item Value Reference Range Interpretation Comments Bili Total (test code = Bili Total) 0.2 0.2-1.3 [place] 610062-12-11 11:20:00 Test Item Value Reference Range Interpretation Comments eGFR (test code = eGFR) 117 [facility] HospitalLqldlwkDXLPFARXOJ4682-24-58 11:20:00 Test Item Value Reference Range Interpretation Comments WBC (test code = WBC) 7.7 3.7-10.4 [facility] HospitalSlcspphBAOZDZWLWZ6749-74-92 11:20:00 Test Item Value Reference Range Interpretation Comments RBC (test code = RBC) 4.42 4.70-6.10 [facility] HospitalIxcntdvVSBFDNABJV9649-01-82 11:20:00 Test Item Value Reference Range Interpretation Comments Hgb (test code = Hgb) 13.7 14.0-18.0 [facility] HospitalTjlyjsjIGKTFJHOXY2556-12-01 11:20:00 Test Item Value Reference Range Interpretation Comments Hct (test code = Hct) 40.0 42.0-54.0 [facility] HospitalYacdrllFNSCTJDRXY2322-87-46 11:20:00 Test Item Value Reference Range Interpretation Comments MCV (test code = MCV) 90.7 80.0-94.0 [facility] HospitalPpafiwvSLTLQWMYRT7721-69-97 11:20:00 Test Item Value Reference Range Interpretation Comments MCH (test code = MCH) 31.0 pg 27.0-31.0 [facility] HospitalAbspzglXZPETHUITM2734-93-35 11:20:00 Test Item Value Reference Range Interpretation Comments MCHC (test code = MCHC) 34.2 32.0-36.0 [facility] HospitalXmssvnvZVKZLURPAP3804-15-67 11:20:00 Test Item Value Reference Range Interpretation Comments RDW (test code = RDW) 12.7 11.5-14.5 [facility] HospitalWllbumtQGLWNIDRVW4537-10-00 11:20:00 Test Item Value Reference Range Interpretation Comments Platelet (test code = Platelet) 213 133-450 [facility] HospitalBdjdnnrQMDKFMRQMO3871-00-43 11:20:00 Test Item Value Reference Range Interpretation Comments MPV (test code = MPV) 9.5 7.4-10.4 [place] 848172-12-11 11:20:00 Test Item Value Reference Range Interpretation Comments Segs (test code = Segs) 49.3 45.0-75.0 [place] 848172-12-11 11:20:00 Test Item Value Reference Range Interpretation Comments Lymphocytes (test code = Lymphocytes) 38.0 20.0-40.0 [place] 848172-12-11 11:20:00 Test Item Value Reference Range Interpretation Comments Monocytes (test code = Monocytes) 7.1 2.0-12.0 [place] 848172-12-11 11:20:00 Test Item Value Reference Range Interpretation Comments Eosinophils (test code = 4.9 See_Comment [A utomated message] The Eosinophils) system which ge nerated this result tra nsmitted reference range : <=4.0. The reference r peri was not used to int erpret this result as normal/abnormal . [facility]SaizvehKMJIRVEPPT4677-84-36 11:20:00 Test Item Value Reference Range Interpretation Comments Basophils (test code = 0.7 See_Comment [Aut omated message] The Basophils) system which ge nerated this result tra nsmitted reference range : <=1.0. The reference r peri was not used to int erpret this result as normal/abnormal . [facility] HospitalHuxpsklFAZQNVPOTZ2118-58-90 11:20:00 Test Item Value Reference Range Interpretation Comments Neutrophils # (test code = Neutrophils 3.8 1.5-8.1 #) [facility] HospitalYmasnwvVYIOYGCLMA5862-08-87 11:20:00 Test Item Value Reference Range Interpretation Comments Lymphocytes # (test code = Lymphocytes 2.9 1.0-5.5 #) [facility] HospitalIaenmopYEBHGJUUKF7151-15-79 11:20:00 Test Item Value Reference Range Interpretation Comments Monocytes # (test code 0.5 See_Comment [Aut omated message] The = Monocytes #) system which generated this result tra nsmitted reference range : <=0.8. The reference r peri was not used to int erpret this result as normal/abnormal . [facility] HospitalGykwkmgFPHNBXKMRE7370-95-45 11:20:00 Test Item Value Reference Range Interpretation Comments Eosinophils # (test code 0.4 See_Comment [A utomated message] The = Eosinophils #) system ic h generated this result tra nsmitted reference range : <=0.5. The reference r peri was not used to int erpret this result as normal/abnormal . [facility] HospitalDqdwyfrSWWSLHJSIS0857-65-15 11:20:00 Test Item Value Reference Range Interpretation Comments Basophils # (test code 0.1 See_Comment [Aut omated message] The = Basophils #) system which generated this result tra nsmitted reference range : <=0.2. The reference r peri was not used to int erpret this result as normal/abnormal . [facility]CARDIAC ROSEZNF0658-23-90 11:20:00 Test Item Value Reference Range Interpretation Comments Total CK (test code = Total CK) 104 12-191 [facility] CenterCHEM ALHQJ7443-51-23 11:20:00 Test Item Value Reference Range Interpretation Comments Glucose Lvl (test code = Glucose Lvl) 95 70-99 [place] 826522-12-11 11:20:00 Test Item Value Reference Range Interpretation Comments BUN (test code = BUN) 10 7-22 [place] 826522-12-11 11:20:00 Test Item Value Reference Range Interpretation Comments Creatinine Lvl (test code = Creatinine 0.70 0.50-1.40 Lvl) [place] 826522-12-11 11:20:00 Test Item Value Reference Range Interpretation Comments Sodium Lvl (test code = Sodium Lvl) 142 135-145 [place] 826522-12-11 11:20:00 Test Item Value Reference Range Interpretation Comments Potassium Lvl (test code = Potassium 3.8 3.5-5.1 Lvl) [place] 826522-12-11 11:20:00 Test Item Value Reference Range Interpretation Comments Chloride Lvl (test code = Chloride Lvl) 108 95-109 [place] 826522-12-11 11:20:00 Test Item Value Reference Range Interpretation Comments CO2 (test code = CO2) 24 24-32 [place] 826522-12-11 11:20:00 Test Item Value Reference Range Interpretation Comments AGAP (test code = AGAP) 13.8 10.0-20.0 [place] 826522-12-11 11:20:00 Test Item Value Reference Range Interpretation Comments Calcium Lvl (test code = Calcium Lvl) 9.7 8.5-10.5 [place] 826522-12-11 11:20:00 Test Item Value Reference Range Interpretation Comments B/C Ratio (test code = B/C Ratio) 14 1 6-25 [place] 826522-12-11 11:20:00 Test Item Value Reference Range Interpretation Comments Total Protein (test code = Total 5.9 6.4-8.4 Protein) [place] 826522-12-11 11:20:00 Test Item Value Reference Range Interpretation Comments Albumin Lvl (test code = Albumin Lvl) 2.9 3.5-5.0 [place] 826522-12-11 11:20:00 Test Item Value Reference Range Interpretation Comments Globulin (test code = Globulin) 3.0 2.7-4.2 [facility]2022-12-11 11:20:00 Test Item Value Reference Range Interpretation Comments A/G Ratio (test code = A/G Ratio) 1.0 1 0.7-1.6 [place] 826522-12-11 11:20:00 Test Item Value Reference Range Interpretation Comments ALT (test code = ALT) 36 See_Comment [Auto mated message] The system which ge nerated this result transmit suze reference range : <=65. The reference range was not used to interpr et this result as anselmo l/abnormal. [facility] NPLQC8895-17-20 11:20:00 Test Item Value Reference Range Interpretation Comments AST (test code = AST) 23 See_Comment [Auto mated message] The system which ge nerated this result transmit suze reference range : <=37. The reference range was not used to interpr et this result as anselmo l/abnormal. [facility] UXRLN3620-27-52 11:20:00 Test Item Value Reference Range Interpretation Comments Alk Phos (test code = Alk Phos) 77 39-136 [facility] UZHER5915-00-39 11:20:00 Test Item Value Reference Range Interpretation Comments Bili Total (test code = Bili Total) 0.2 0.2-1.3 [place] [address]-12-11 11:20:00 Test Item Value Reference Range Interpretation Comments eGFR (test code = eGFR) 117 [facility] CenterKplcgddPZALFDNJE4114-06-69 11:20:00 Test Item Value Reference Range Interpretation Comments Total CK (test code = Total CK) 104 12-191 [place] 610062-12-11 11:20:00 Test Item Value Reference Range Interpretation Comments Glucose Lvl (test code = Glucose Lvl) 95 70-99 [place] [address]-12-11 11:20:00 Test Item Value Reference Range Interpretation Comments BUN (test code = BUN) 10 7-22 [facility] CenterEadhxkdEVAURRYJX3071-58-95 11:20:00 Test Item Value Reference Range Interpretation Comments Creatinine Lvl (test code = Creatinine 0.70 0.50-1.40 Lvl) [place] 610062-12-11 11:20:00 Test Item Value Reference Range Interpretation Comments Sodium Lvl (test code = Sodium Lvl) 142 135-145 [facility] CenterJpuajkxTSAPPTGSK8830-17-66 11:20:00 Test Item Value Reference Range Interpretation Comments Potassium Lvl (test code = Potassium 3.8 3.5-5.1 Lvl) [facility] CenterIjctovqNBZUWTTNJ4581-62-76 11:20:00 Test Item Value Reference Range Interpretation Comments Chloride Lvl (test code = Chloride Lvl) 108 95-109 [facility] CenterBwnhjtiZKMYRLZAY7195-18-97 11:20:00 Test Item Value Reference Range Interpretation Comments CO2 (test code = CO2) 24 24-32 [facility] CenterBhnmnfzBXQRXFZSZ8112-99-59 11:20:00 Test Item Value Reference Range Interpretation Comments AGAP (test code = AGAP) 13.8 10.0-20.0 [facility] CenterXoeouzgSXRTJSSWL2632-41-55 11:20:00 Test Item Value Reference Range Interpretation Comments Calcium Lvl (test code = Calcium Lvl) 9.7 8.5-10.5 [facility] CenterHunhkyeXTESGLSUT0682-45-14 11:20:00 Test Item Value Reference Range Interpretation Comments B/C Ratio (test code = B/C Ratio) 14 1 6-25 [facility] CenterQnjjytqKOHAOSDFI5729-94-58 11:20:00 Test Item Value Reference Range Interpretation Comments Total Protein (test code = Total 5.9 6.4-8.4 Protein) [facility] CenterWeoiwocEAKVNOOYH8636-19-20 11:20:00 Test Item Value Reference Range Interpretation Comments Albumin Lvl (test code = Albumin Lvl) 2.9 3.5-5.0 [facility] CenterBwawhjrOCUZSQQPG3534-06-88 11:20:00 Test Item Value Reference Range Interpretation Comments Globulin (test code = Globulin) 3.0 2.7-4.2 [facility] CenterYwlpbcrFJEZVTZOE7421-72-38 11:20:00 Test Item Value Reference Range Interpretation Comments A/G Ratio (test code = A/G Ratio) 1.0 1 0.7-1.6 [facility] CenterMedakvhQLMNDEEJM3323-73-34 11:20:00 Test Item Value Reference Range Interpretation Comments ALT (test code = ALT) 36 See_Comment [Auto mated message] The system which ge nerated this result transmit suze reference range : <=65. The reference range was not used to interpr et this result as anselmo l/abnormal. [facility] CenterFtkupilSWVISJITL6658-11-82 11:20:00 Test Item Value Reference Range Interpretation Comments AST (test code = AST) 23 See_Comment [Auto mated message] The system which ge nerated this result transmit suze reference range : <=37. The reference range was not used to interpr et this result as anselmo l/abnormal. [facility] CenterKtqtouzGZJTZXPGJ2736-46-20 11:20:00 Test Item Value Reference Range Interpretation Comments Alk Phos (test code = Alk Phos) 77 39-136 [facility] CenterCxjgubwJSPDWXQAO9521-20-74 11:20:00 Test Item Value Reference Range Interpretation Comments Bili Total (test code = Bili Total) 0.2 0.2-1.3 [facility] CenterNxbdfqeVFCFGXAMZ0792-83-84 11:20:00 Test Item Value Reference Range Interpretation Comments eGFR (test code = eGFR) 117 [facility] HospitalBxpgdfeUWIGGRZIRC7692-70-52 11:20:00 Test Item Value Reference Range Interpretation Comments WBC (test code = WBC) 7.7 3.7-10.4 [facility] HospitalLdrvllsMBJQNMITQL1945-33-62 11:20:00 Test Item Value Reference Range Interpretation Comments RBC (test code = RBC) 4.42 4.70-6.10 [facility] HospitalEyvqoytSLVMIPAULV4413-37-84 11:20:00 Test Item Value Reference Range Interpretation Comments Hgb (test code = Hgb) 13.7 14.0-18.0 [facility] HospitalZlwggsqJLAUEAZBLL9179-37-01 11:20:00 Test Item Value Reference Range Interpretation Comments Hct (test code = Hct) 40.0 42.0-54.0 [facility] HospitalUrqxagtSFNGUYKWTT2613-13-66 11:20:00 Test Item Value Reference Range Interpretation Comments MCV (test code = MCV) 90.7 80.0-94.0 [facility] HospitalXdbonjuSKGADEMUBU9508-02-58 11:20:00 Test Item Value Reference Range Interpretation Comments MCH (test code = MCH) 31.0 pg 27.0-31.0 [facility] HospitalUzjfyheKUKOOKFBTE5138-94-65 11:20:00 Test Item Value Reference Range Interpretation Comments MCHC (test code = MCHC) 34.2 32.0-36.0 [place] 848172-12-11 11:20:00 Test Item Value Reference Range Interpretation Comments RDW (test code = RDW) 12.7 11.5-14.5 [place] 848172-12-11 11:20:00 Test Item Value Reference Range Interpretation Comments Platelet (test code = Platelet) 213 133-450 [place] 848172-12-11 11:20:00 Test Item Value Reference Range Interpretation Comments MPV (test code = MPV) 9.5 7.4-10.4 [place] 848172-12-11 11:20:00 Test Item Value Reference Range Interpretation Comments Segs (test code = Segs) 49.3 45.0-75.0 [place] 848172-12-11 11:20:00 Test Item Value Reference Range Interpretation Comments Lymphocytes (test code = Lymphocytes) 38.0 20.0-40.0 [place] [address]-12-11 11:20:00 Test Item Value Reference Range Interpretation Comments Monocytes (test code = Monocytes) 7.1 2.0-12.0 [place] [address]-12-11 11:20:00 Test Item Value Reference Range Interpretation Comments Eosinophils (test code = 4.9 See_Comment [A utomated message] The Eosinophils) system which ge nerated this result tra nsmitted reference range : <=4.0. The reference r peri was not used to int erpret this result as normal/abnormal . [place] 848172-12-11 11:20:00 Test Item Value Reference Range Interpretation Comments Basophils (test code = 0.7 See_Comment [Aut omated message] The Basophils) system which ge nerated this result tra nsmitted reference range : <=1.0. The reference r peri was not used to int erpret this result as normal/abnormal . [place] 848172-12-11 11:20:00 Test Item Value Reference Range Interpretation Comments Neutrophils # (test code = Neutrophils 3.8 1.5-8.1 #) [place] 848172-12-11 11:20:00 Test Item Value Reference Range Interpretation Comments Lymphocytes # (test code = Lymphocytes 2.9 1.0-5.5 #) [place] 848172-12-11 11:20:00 Test Item Value Reference Range Interpretation Comments Monocytes # (test code 0.5 See_Comment [Aut omated message] The = Monocytes #) system which generated this result tra nsmitted reference range : <=0.8. The reference r peri was not used to int erpret this result as normal/abnormal . [facility] HospitalGpabdufRPYFANBPWY9243-04-86 11:20:00 Test Item Value Reference Range Interpretation Comments Eosinophils # (test code 0.4 See_Comment [A utomated message] The = Eosinophils #) system whic h generated this result tra nsmitted reference range : <=0.5. The reference r peri was not used to int erpret this result as normal/abnormal . [facility] HospitalQggsuzgWXIJTWZTVS5824-20-42 11:20:00 Test Item Value Reference Range Interpretation Comments Basophils # (test code 0.1 See_Comment [Aut omated message] The = Basophils #) system which generated this result tra nsmitted reference range : <=0.2. The reference r peri was not used to int erpret this result as normal/abnormal . [facility]2022-12-11 11:20:00 Test Item Value Reference Range Interpretation Comments Total CK (test code = Total CK) 104 12-191 [facility] FWZCV3644-95-43 11:20:00 Test Item Value Reference Range Interpretation Comments Glucose Lvl (test code = Glucose Lvl) 95 70-99 [facility] KOWEU1730-87-17 11:20:00 Test Item Value Reference Range Interpretation Comments BUN (test code = BUN) 10 7-22 [facility] KBJIV7244-07-61 11:20:00 Test Item Value Reference Range Interpretation Comments Creatinine Lvl (test code = Creatinine 0.70 0.50-1.40 Lvl) [facility] OXCSW5029-56-72 11:20:00 Test Item Value Reference Range Interpretation Comments Sodium Lvl (test code = Sodium Lvl) 142 135-145 [facility] XPMTM7293-46-44 11:20:00 Test Item Value Reference Range Interpretation Comments Potassium Lvl (test code = Potassium 3.8 3.5-5.1 Lvl) [facility] JCBCM8629-29-09 11:20:00 Test Item Value Reference Range Interpretation Comments Chloride Lvl (test code = Chloride Lvl) 108 95-109 [facility] QABFD8097-49-56 11:20:00 Test Item Value Reference Range Interpretation Comments CO2 (test code = CO2) 24 24-32 [place] [address]-12-11 11:20:00 Test Item Value Reference Range Interpretation Comments AGAP (test code = AGAP) 13.8 10.0-20.0 [place] [address]-12-11 11:20:00 Test Item Value Reference Range Interpretation Comments Calcium Lvl (test code = Calcium Lvl) 9.7 8.5-10.5 [place] [address]-12-11 11:20:00 Test Item Value Reference Range Interpretation Comments B/C Ratio (test code = B/C Ratio) 14 1 6-[address]12-11 11:20:00 Test Item Value Reference Range Interpretation Comments Total Protein (test code = Total 5.9 6.4-8.4 Protein) [address]12-11 11:20:00 Test Item Value Reference Range Interpretation Comments Albumin Lvl (test code = Albumin Lvl) 2.9 3.5-5.[address]12-11 11:20:00 Test Item Value Reference Range Interpretation Comments Globulin (test code = Globulin) 3.0 2.7-4.2 [place] [address]-12-11 11:20:00 Test Item Value Reference Range Interpretation Comments A/G Ratio (test code = A/G Ratio) 1.0 1 0.7-1.[address]12-11 11:20:00 Test Item Value Reference Range Interpretation Comments ALT (test code = ALT) 36 See_Comment [Auto mated message] The system which ge nerated this result transmit suze reference range : <=65. The reference range was not used to interpr et this result as anselmo l/abnormal. [place] [address]-12-11 11:20:00 Test Item Value Reference Range Interpretation Comments AST (test code = AST) 23 See_Comment [Auto mated message] The system which ge nerated this result transmit suze reference range : <=37. The reference range was not used to interpr et this result as anselmo l/abnormal. [place] [address]-12-11 11:20:00 Test Item Value Reference Range Interpretation Comments Alk Phos (test code = Alk Phos) 77 39-136 [facility]2022-12-11 11:20:00 Test Item Value Reference Range Interpretation Comments Bili Total (test code = Bili Total) 0.2 0.2-1.3 [facility]2022-12-11 11:20:00 Test Item Value Reference Range Interpretation Comments eGFR (test code = eGFR) 117 [facility] CenterWswwhapUMYDCUNPX5106-66-83 11:20:00 Test Item Value Reference Range Interpretation Comments Total CK (test code = Total CK) 104 12-191 [facility] CenterYekkblcRNVEVIHIV9473-25-44 11:20:00 Test Item Value Reference Range Interpretation Comments Glucose Lvl (test code = Glucose Lvl) 95 70-99 [facility] CenterVtelbasALHBHSYMW0123-62-59 11:20:00 Test Item Value Reference Range Interpretation Comments BUN (test code = BUN) 10 7-22 [facility] CenterPofnvdfYHQHMLMVV7269-76-45 11:20:00 Test Item Value Reference Range Interpretation Comments Creatinine Lvl (test code = Creatinine 0.70 0.50-1.40 Lvl) [facility] CenterQmwesyeERPWHSABD0773-03-79 11:20:00 Test Item Value Reference Range Interpretation Comments Sodium Lvl (test code = Sodium Lvl) 142 135-145 [facility] CenterRwkkqtlXGLWRJAJG4450-25-67 11:20:00 Test Item Value Reference Range Interpretation Comments Potassium Lvl (test code = Potassium 3.8 3.5-5.1 Lvl) [facility] CenterCpuzwtqSKLTZVHXO1980-89-12 11:20:00 Test Item Value Reference Range Interpretation Comments Chloride Lvl (test code = Chloride Lvl) 108 95-109 [facility] CenterJiynpbhCVLMEAAQD4392-74-02 11:20:00 Test Item Value Reference Range Interpretation Comments CO2 (test code = CO2) 24 24-32 [facility] CenterCyotrrlJZBUNWOFK3400-72-85 11:20:00 Test Item Value Reference Range Interpretation Comments AGAP (test code = AGAP) 13.8 10.0-20.0 [facility] CenterXraemzsBGBFMZPAQ4633-63-38 11:20:00 Test Item Value Reference Range Interpretation Comments Calcium Lvl (test code = Calcium Lvl) 9.7 8.5-10.5 [facility] CenterGlnunlpRZUACYEOW8853-97-22 11:20:00 Test Item Value Reference Range Interpretation Comments B/C Ratio (test code = B/C Ratio) 14 1 6-25 [facility]GyoithaXVEPGACBW7821-69-56 11:20:00 Test Item Value Reference Range Interpretation Comments Total Protein (test code = Total 5.9 6.4-8.4 Protein) [facility] CenterFdbyaxaLFTFTPSCS5029-54-42 11:20:00 Test Item Value Reference Range Interpretation Comments Albumin Lvl (test code = Albumin Lvl) 2.9 3.5-5.0 [facility] CenterSjhwvyiTURDNQOHY1535-01-60 11:20:00 Test Item Value Reference Range Interpretation Comments Globulin (test code = Globulin) 3.0 2.7-4.2 [facility] CenterTozocbjCFEQPXIGU5477-85-66 11:20:00 Test Item Value Reference Range Interpretation Comments A/G Ratio (test code = A/G Ratio) 1.0 1 0.7-1.6 [facility] CenterQqxgivpURVYYNWVJ5396-06-95 11:20:00 Test Item Value Reference Range Interpretation Comments ALT (test code = ALT) 36 See_Comment [Auto mated message] The system which ge nerated this result transmit suze reference range : <=65. The reference range was not used to interpr et this result as anselmo l/abnormal. [facility] CenterTafedwcQSETAMVSU5248-17-88 11:20:00 Test Item Value Reference Range Interpretation Comments AST (test code = AST) 23 See_Comment [Auto mated message] The system which ge nerated this result transmit suze reference range : <=37. The reference range was not used to interpr et this result as anselmo l/abnormal. [facility] CenterBllhfovTADCKNTDU4379-66-17 11:20:00 Test Item Value Reference Range Interpretation Comments Alk Phos (test code = Alk Phos) 77 39-136 [facility] CenterHlasxmoQLIPBSMHI9139-25-61 11:20:00 Test Item Value Reference Range Interpretation Comments Bili Total (test code = Bili Total) 0.2 0.2-1.3 [facility] CenterRkxzlhiSZACRDYWI3203-19-49 11:20:00 Test Item Value Reference Range Interpretation Comments eGFR (test code = eGFR) [address] [facility] HospitalDoikjubRAHZOWOAAJ8706-54-46 11:20:00 Test Item Value Reference Range Interpretation Comments WBC (test code = WBC) 7.7 3.7-10.4 [facility] HospitalQcoaisfHDAEJKWUAQ4532-96-45 11:20:00 Test Item Value Reference Range Interpretation Comments RBC (test code = RBC) 4.42 4.70-6.10 [place] [address]-12-11 11:20:00 Test Item Value Reference Range Interpretation Comments Hgb (test code = Hgb) 13.7 14.0-18.0 [place] [address]-12-11 11:20:00 Test Item Value Reference Range Interpretation Comments Hct (test code = Hct) 40.0 42.0-54.0 [place] 848172-12-11 11:20:00 Test Item Value Reference Range Interpretation Comments MCV (test code = MCV) 90.7 80.0-94.0 [place] [address]-12-11 11:20:00 Test Item Value Reference Range Interpretation Comments MCH (test code = MCH) 31.0 pg 27.0-31.0 [place] [address]-12-11 11:20:00 Test Item Value Reference Range Interpretation Comments MCHC (test code = MCHC) 34.2 32.0-36.0 [facility] HospitalQflhszwDRBLWVVINU1531-61-44 11:20:00 Test Item Value Reference Range Interpretation Comments RDW (test code = RDW) 12.7 11.5-14.5 [facility] HospitalZtyvqalWHFCMXOMOV2606-24-63 11:20:00 Test Item Value Reference Range Interpretation Comments Platelet (test code = Platelet) 213 133-450 [facility] HospitalFoupqpuMIHXBNHDEW9702-97-71 11:20:00 Test Item Value Reference Range Interpretation Comments MPV (test code = MPV) 9.5 7.4-10.4 [place] [address]-12-11 11:20:00 Test Item Value Reference Range Interpretation Comments Segs (test code = Segs) 49.3 45.0-75.0 [place] [address]-12-11 11:20:00 Test Item Value Reference Range Interpretation Comments Lymphocytes (test code = Lymphocytes) 38.0 20.0-40.0 [place] [address]-12-11 11:20:00 Test Item Value Reference Range Interpretation Comments Monocytes (test code = Monocytes) 7.1 2.0-12.0 [place] [address]-12-11 11:20:00 Test Item Value Reference Range Interpretation Comments Eosinophils (test code = 4.9 See_Comment [A utomated message] The Eosinophils) system which ge nerated this result tra nsmitted reference range : <=4.0. The reference r peri was not used to int erpret this result as normal/abnormal . [place] 848172-12-11 11:20:00 Test Item Value Reference Range Interpretation Comments Basophils (test code = 0.7 See_Comment [Aut omated message] The Basophils) system which ge nerated this result tra nsmitted reference range : <=1.0. The reference r peri was not used to int erpret this result as normal/abnormal . [place] [address]-12-11 11:20:00 Test Item Value Reference Range Interpretation Comments Neutrophils # (test code = Neutrophils 3.8 1.5-8.1 #) [place] [address]-12-11 11:20:00 Test Item Value Reference Range Interpretation Comments Lymphocytes # (test code = Lymphocytes 2.9 1.0-5.5 #) [place] [address]-12-11 11:20:00 Test Item Value Reference Range Interpretation Comments Monocytes # (test code 0.5 See_Comment [Aut omated message] The = Monocytes #) system which generated this result tra nsmitted reference range : <=0.8. The reference r peri was not used to int erpret this result as normal/abnormal . [place] 848172-12-11 11:20:00 Test Item Value Reference Range Interpretation Comments Eosinophils # (test code 0.4 See_Comment [A utomated message] The = Eosinophils #) system [facility] generated this result tra nsmitted reference range : <=0.5. The reference r peri was not used to int erpret this result as normal/abnormal . [place] 848172-12-11 11:20:00 Test Item Value Reference Range Interpretation Comments Basophils # (test code 0.1 See_Comment [Aut omated message] The = Basophils #) system which generated this result tra nsmitted reference range : <=0.2. The reference r peri was not used to int erpret this result as normal/abnormal . [place] [address]-12-11 11:20:00 Test Item Value Reference Range Interpretation Comments WBC (test code = WBC) 7.7 3.7-10.4 [place] 848172-12-11 11:20:00 Test Item Value Reference Range Interpretation Comments RBC (test code = RBC) 4.42 4.70-6.10 [facility] HospitalWgmylduGDNEYUAMVU5818-61-43 11:20:00 Test Item Value Reference Range Interpretation Comments Hgb (test code = Hgb) 13.7 14.0-18.0 [facility] HospitalSnpgyfnMHPAFKNJBQ9568-02-49 11:20:00 Test Item Value Reference Range Interpretation Comments Hct (test code = Hct) 40.0 42.0-54.0 [facility] HospitalEaplkzyBZHFTSYAGK9086-54-59 11:20:00 Test Item Value Reference Range Interpretation Comments MCV (test code = MCV) 90.7 80.0-94.0 [facility] HospitalUdkpvjjFPLHGGSOJD5003-39-08 11:20:00 Test Item Value Reference Range Interpretation Comments MCH (test code = MCH) 31.0 pg 27.0-31.0 [facility] HospitalJbtvlvlXZEVUBSJAI9545-11-95 11:20:00 Test Item Value Reference Range Interpretation Comments MCHC (test code = MCHC) 34.2 32.0-36.0 [facility] HospitalIakcddcLOGVQFXEEN5874-70-49 11:20:00 Test Item Value Reference Range Interpretation Comments RDW (test code = RDW) 12.7 11.5-14.5 [facility] HospitalHnttwxhURABRIJQZQ4286-15-54 11:20:00 Test Item Value Reference Range Interpretation Comments Platelet (test code = Platelet) 213 133-450 [facility] HospitalNsqxlipTFYFKNCEJS2219-96-30 11:20:00 Test Item Value Reference Range Interpretation Comments MPV (test code = MPV) 9.5 7.4-10.4 [facility] HospitalYchpqzgBKBSTDOFJO4018-61-81 11:20:00 Test Item Value Reference Range Interpretation Comments Segs (test code = Segs) 49.3 45.0-75.0 [place] 848172-12-11 11:20:00 Test Item Value Reference Range Interpretation Comments Lymphocytes (test code = Lymphocytes) 38.0 20.0-40.0 [place] 848172-12-11 11:20:00 Test Item Value Reference Range Interpretation Comments Monocytes (test code = Monocytes) 7.1 2.0-12.0 [place] 848172-12-11 11:20:00 Test Item Value Reference Range Interpretation Comments Eosinophils (test code = 4.9 See_Comment [A utomated message] The Eosinophils) system which ge nerated this result tra nsmitted reference range : <=4.0. The reference r peri was not used to int erpret this result as normal/abnormal . [facility] HospitalMpfrzqrFBMYQTWSCH8277-19-59 11:20:00 Test Item Value Reference Range Interpretation Comments Basophils (test code = 0.7 See_Comment [Aut omated message] The Basophils) system which ge nerated this result tra nsmitted reference range : <=1.0. The reference r peri was not used to int erpret this result as normal/abnormal . [facility] HospitalZolkvudXEWTSFLOTD6086-47-19 11:20:00 Test Item Value Reference Range Interpretation Comments Neutrophils # (test code = Neutrophils 3.8 1.5-8.1 #) [facility] HospitalZqlbmlyDTDXFWYAFG2620-23-13 11:20:00 Test Item Value Reference Range Interpretation Comments Lymphocytes # (test code = Lymphocytes 2.9 1.0-5.5 #) [facility] HospitalDwyhtxzDGMEHMYSNI2394-09-23 11:20:00 Test Item Value Reference Range Interpretation Comments Monocytes # (test code 0.5 See_Comment [Aut omated message] The = Monocytes #) system which generated this result tra nsmitted reference range : <=0.8. The reference r peri was not used to int erpret this result as normal/abnormal . [facility] HospitalSqqhkvyHYJMIUGIXK2991-98-35 11:20:00 Test Item Value Reference Range Interpretation Comments Eosinophils # (test code 0.4 See_Comment [A utomated message] The = Eosinophils #) system ic h generated this result tra nsmitted reference range : <=0.5. The reference r peri was not used to int erpret this result as normal/abnormal . [facility] HospitalIendyymSGLFUSETJX0289-42-25 11:20:00 Test Item Value Reference Range Interpretation Comments Basophils # (test code 0.1 See_Comment [Aut omated message] The = Basophils #) system which generated this result tra nsmitted reference range : <=0.2. The reference r peri was not used to int erpret this result as normal/abnormal . [facility]CARD[facility] SDEPGJW0468-56-45 11:20:00 Test Item Value Reference Range Interpretation Comments Total CK (test code = Total CK) 104 12-191 [place] 826522-12-11 11:20:00 Test Item Value Reference Range Interpretation Comments Glucose Lvl (test code = Glucose Lvl) 95 70-99 [place] 826522-12-11 11:20:00 Test Item Value Reference Range Interpretation Comments BUN (test code = BUN) 10 7-22 [place] 826522-12-11 11:20:00 Test Item Value Reference Range Interpretation Comments Creatinine Lvl (test code = Creatinine 0.70 0.50-1.40 Lvl) [facility]2022-12-11 11:20:00 Test Item Value Reference Range Interpretation Comments Sodium Lvl (test code = Sodium Lvl) 142 135-145 [facility]2022-12-11 11:20:00 Test Item Value Reference Range Interpretation Comments Potassium Lvl (test code = Potassium 3.8 3.5-5.1 Lvl) [facility]2022-12-11 11:20:00 Test Item Value Reference Range Interpretation Comments Chloride Lvl (test code = Chloride Lvl) 108 95-109 [facility]2022-12-11 11:20:00 Test Item Value Reference Range Interpretation Comments CO2 (test code = CO2) 24 24-32 [place] 826522-12-11 11:20:00 Test Item Value Reference Range Interpretation Comments AGAP (test code = AGAP) 13.8 10.0-20.0 [place] 826522-12-11 11:20:00 Test Item Value Reference Range Interpretation Comments Calcium Lvl (test code = Calcium Lvl) 9.7 8.5-10.5 [place] 826522-12-11 11:20:00 Test Item Value Reference Range Interpretation Comments B/C Ratio (test code = B/C Ratio) 14 1 6-25 [place] 826522-12-11 11:20:00 Test Item Value Reference Range Interpretation Comments Total Protein (test code = Total 5.9 6.4-8.4 Protein) [place] 826522-12-11 11:20:00 Test Item Value Reference Range Interpretation Comments Albumin Lvl (test code = Albumin Lvl) 2.9 3.5-5.0 [place] [address]-12-11 11:20:00 Test Item Value Reference Range Interpretation Comments Globulin (test code = Globulin) 3.0 2.7-4.2 [place] [address]-12-11 11:20:00 Test Item Value Reference Range Interpretation Comments A/G Ratio (test code = A/G Ratio) 1.0 1 0.7-1.6 [place] [address]-12-11 11:20:00 Test Item Value Reference Range Interpretation Comments ALT (test code = ALT) 36 See_Comment [Auto mated message] The system which ge nerated this result transmit suze reference range : <=65. The reference range was not used to interpr et this result as anselmo l/abnormal. [place] [address]-12-11 11:20:00 Test Item Value Reference Range Interpretation Comments AST (test code = AST) 23 See_Comment [Auto mated message] The system which ge nerated this result transmit suze reference range : <=37. The reference range was not used to interpr et this result as anselmo l/abnormal. [place] 826522-12-11 11:20:00 Test Item Value Reference Range Interpretation Comments Alk Phos (test code = Alk Phos) 77 39-136 [place] [address]-12-11 11:20:00 Test Item Value Reference Range Interpretation Comments Bili Total (test code = Bili Total) 0.2 0.2-1.3 [place] [address]-12-11 11:20:00 Test Item Value Reference Range Interpretation Comments eGFR (test code = eGFR) 117 [place] [address]-12-11 11:20:00 Test Item Value Reference Range Interpretation Comments Total CK (test code = Total CK) 104 12-191 [place] [address]-12-11 11:20:00 Test Item Value Reference Range Interpretation Comments Glucose Lvl (test code = Glucose Lvl) 95 70-99 [place] [address]-12-11 11:20:00 Test Item Value Reference Range Interpretation Comments BUN (test code = BUN) 10 7-22 [place] [address]-12-11 11:20:00 Test Item Value Reference Range Interpretation Comments Creatinine Lvl (test code = Creatinine 0.70 0.50-1.40 Lvl) [facility]EjwdcarKXQKKDWOD7942-21-92 11:20:00 Test Item Value Reference Range Interpretation Comments Sodium Lvl (test code = Sodium Lvl) 142 135-145 [facility] CenterBbzzpytJVVVPIAJA1737-70-80 11:20:00 Test Item Value Reference Range Interpretation Comments Potassium Lvl (test code = Potassium 3.8 3.5-5.1 Lvl) [facility] CenterWojdbbhQCUJKCIVU6537-97-34 11:20:00 Test Item Value Reference Range Interpretation Comments Chloride Lvl (test code = Chloride Lvl) 108 95-109 [facility] CenterNcrelzpCUZQJWUBG3965-24-28 11:20:00 Test Item Value Reference Range Interpretation Comments CO2 (test code = CO2) 24 24-32 [facility] CenterKyehladEEYRAJHBL9673-42-70 11:20:00 Test Item Value Reference Range Interpretation Comments AGAP (test code = AGAP) 13.8 10.0-20.0 [facility] CenterGmdxuyxBMTQHLHPQ5397-10-52 11:20:00 Test Item Value Reference Range Interpretation Comments Calcium Lvl (test code = Calcium Lvl) 9.7 8.5-10.5 [facility] CenterOakpwfdAUZNBUTLY5131-76-31 11:20:00 Test Item Value Reference Range Interpretation Comments B/C Ratio (test code = B/C Ratio) 14 1 6-25 [facility] CenterOvbxzlqDXLLVMNZZ5321-10-29 11:20:00 Test Item Value Reference Range Interpretation Comments Total Protein (test code = Total 5.9 6.4-8.4 Protein) [facility] CenterNzpqsgpKKJINQASM3030-83-93 11:20:00 Test Item Value Reference Range Interpretation Comments Albumin Lvl (test code = Albumin Lvl) 2.9 3.5-5.0 [facility] CenterSszydmjHEAVEZSNL8611-36-32 11:20:00 Test Item Value Reference Range Interpretation Comments Globulin (test code = Globulin) 3.0 2.7-4.2 [facility] CenterPznnswvXSFNQVGEQ9039-61-34 11:20:00 Test Item Value Reference Range Interpretation Comments A/G Ratio (test code = A/G Ratio) 1.0 1 0.7-1.6 [facility] CenterPhtpusdEEHEFLVHI6391-56-67 11:20:00 Test Item Value Reference Range Interpretation Comments ALT (test code = ALT) 36 See_Comment [Auto mated message] The system which ge nerated this result transmit suze reference range : <=65. The reference range was not used to interpr et this result as anselmo l/abnormal. [facility]UkumcuxDEJLTTOYC9411-08-25 11:20:00 Test Item Value Reference Range Interpretation Comments AST (test code = AST) 23 See_Comment [Auto mated message] The system which ge nerated this result transmit suze reference range : <=37. The reference range was not used to interpr et this result as anselmo l/abnormal. [facility] CenterNippjtxFOKPTBBGH6172-09-13 11:20:00 Test Item Value Reference Range Interpretation Comments Alk Phos (test code = Alk Phos) 77 39-136 [facility] CenterAcuauokSSAZIOGRO0048-38-47 11:20:00 Test Item Value Reference Range Interpretation Comments Bili Total (test code = Bili Total) 0.2 0.2-1.3 [facility] CenterMbigizaHRGXJVJPI0346-87-13 11:20:00 Test Item Value Reference Range Interpretation Comments eGFR (test code = eGFR) 117 [facility] CenterFqgfdrvBGRCZKJXEC9488-73-84 11:20:00 Test Item Value Reference Range Interpretation Comments WBC (test code = WBC) 7.7 3.7-10.4 [facility]PzaeswyDFUKNHQLJL0707-36-62 11:20:00 Test Item Value Reference Range Interpretation Comments RBC (test code = RBC) 4.42 4.70-6.10 [facility] CenterAwhntnsKPCNHDPOIR3698-67-48 11:20:00 Test Item Value Reference Range Interpretation Comments Hgb (test code = Hgb) 13.7 14.0-18.0 [facility] CenterKuiuoheMANSZSDQVI3038-08-43 11:20:00 Test Item Value Reference Range Interpretation Comments Hct (test code = Hct) 40.0 42.0-54.0 [facility] CenterEljbrfiVMTGKDZQMN2952-85-16 11:20:00 Test Item Value Reference Range Interpretation Comments MCV (test code = MCV) 90.7 80.0-94.0 [place] 848172-12-11 11:20:00 Test Item Value Reference Range Interpretation Comments MCH (test code = MCH) 31.0 pg 27.0-31.0 [place] 848172-12-11 11:20:00 Test Item Value Reference Range Interpretation Comments MCHC (test code = MCHC) 34.2 32.0-36.0 [facility] HospitalTcxiyukRGEPZIOWMF9457-38-76 11:20:00 Test Item Value Reference Range Interpretation Comments RDW (test code = RDW) 12.7 11.5-14.5 [facility] HospitalTtcaubfDKWWNBQXIS4821-95-27 11:20:00 Test Item Value Reference Range Interpretation Comments Platelet (test code = Platelet) 213 133-450 [facility] HospitalJjgfsdqOKIOTBTCZF1348-05-77 11:20:00 Test Item Value Reference Range Interpretation Comments MPV (test code = MPV) 9.5 7.4-10.4 [facility] HospitalTohflcgWBLASQRUBG3415-18-25 11:20:00 Test Item Value Reference Range Interpretation Comments Segs (test code = Segs) 49.3 45.0-75.0 [facility] HospitalFibbdyzEWXVKTNXNC2168-79-58 11:20:00 Test Item Value Reference Range Interpretation Comments Lymphocytes (test code = Lymphocytes) 38.0 20.0-40.0 [facility] HospitalNnnqhlbVAFVLIZVLX5310-90-51 11:20:00 Test Item Value Reference Range Interpretation Comments Monocytes (test code = Monocytes) 7.1 2.0-12.0 [facility] HospitalJcfstptSNDJQPKKBM4725-82-57 11:20:00 Test Item Value Reference Range Interpretation Comments Eosinophils (test code = 4.9 See_Comment [A utomated message] The Eosinophils) system which ge nerated this result tra nsmitted reference range : <=4.0. The reference r peri was not used to int erpret this result as normal/abnormal . [facility] HospitalEzfxeawLWGUYDDIPW8713-07-37 11:20:00 Test Item Value Reference Range Interpretation Comments Basophils (test code = 0.7 See_Comment [Aut omated message] The Basophils) system which ge nerated this result tra nsmitted reference range : <=1.0. The reference r peri was not used to int erpret this result as normal/abnormal . [facility] HospitalCwtiemmPEXKELUNWI1111-68-91 11:20:00 Test Item Value Reference Range Interpretation Comments Neutrophils # (test code = Neutrophils 3.8 1.5-8.1 #) [facility] HospitalRdxhorcWBMLSNLTKO5328-94-91 11:20:00 Test Item Value Reference Range Interpretation Comments Lymphocytes # (test code = Lymphocytes 2.9 1.0-5.5 #) [place] 848172-12-11 11:20:00 Test Item Value Reference Range Interpretation Comments Monocytes # (test code 0.5 See_Comment [Aut omated message] The = Monocytes #) system which generated this result tra nsmitted reference range : <=0.8. The reference r peri was not used to int erpret this result as normal/abnormal . [facility] HospitalDeiitkxZSEIMWUXMA7175-50-08 11:20:00 Test Item Value Reference Range Interpretation Comments Eosinophils # (test code 0.4 See_Comment [A utomated message] The = Eosinophils #) system whic h generated this result tra nsmitted reference range : <=0.5. The reference r peri was not used to int erpret this result as normal/abnormal . [facility] HospitalGxindhwUNBLRVXTGL2488-62-86 11:20:00 Test Item Value Reference Range Interpretation Comments Basophils # (test code 0.1 See_Comment [Aut omated message] The = Basophils #) system which generated this result tra nsmitted reference range : <=0.2. The reference r peri was not used to int erpret this result as normal/abnormal . [facility] HospitalNmzdctjMMLKBTGSGT4930-86-82 11:20:00 Test Item Value Reference Range Interpretation Comments WBC (test code = WBC) 7.7 3.7-10.4 [place] 848172-12-11 11:20:00 Test Item Value Reference Range Interpretation Comments RBC (test code = RBC) 4.42 4.70-6.10 [place] 848172-12-11 11:20:00 Test Item Value Reference Range Interpretation Comments Hgb (test code = Hgb) 13.7 14.0-18.0 [place] 848172-12-11 11:20:00 Test Item Value Reference Range Interpretation Comments Hct (test code = Hct) 40.0 42.0-54.0 [place] [address]-12-11 11:20:00 Test Item Value Reference Range Interpretation Comments MCV (test code = MCV) 90.7 80.0-94.0 [place] [address]-12-11 11:20:00 Test Item Value Reference Range Interpretation Comments MCH (test code = MCH) 31.0 pg 27.0-31.0 [place] 848172-12-11 11:20:00 Test Item Value Reference Range Interpretation Comments MCHC (test code = MCHC) 34.2 32.0-36.0 [facility] HospitalFarnuplWPLVTKEQXQ4057-51-05 11:20:00 Test Item Value Reference Range Interpretation Comments RDW (test code = RDW) 12.7 11.5-14.5 [place] 848172-12-11 11:20:00 Test Item Value Reference Range Interpretation Comments Platelet (test code = Platelet) 213 133-450 [facility] HospitalBstgqjlCRSXNJDYJZ0477-81-22 11:20:00 Test Item Value Reference Range Interpretation Comments MPV (test code = MPV) 9.5 7.4-10.4 [facility] HospitalIrepgogQAZOXIYEYW7075-35-77 11:20:00 Test Item Value Reference Range Interpretation Comments Segs (test code = Segs) 49.3 45.0-75.0 [place] 848172-12-11 11:20:00 Test Item Value Reference Range Interpretation Comments Lymphocytes (test code = Lymphocytes) 38.0 20.0-40.0 [facility] HospitalPzzrllxLJEGRWAMLW4768-83-10 11:20:00 Test Item Value Reference Range Interpretation Comments Monocytes (test code = Monocytes) 7.1 2.0-12.0 [facility] HospitalZwjomlgPNTASSHMNI8394-05-37 11:20:00 Test Item Value Reference Range Interpretation Comments Eosinophils (test code = 4.9 See_Comment [A utomated message] The Eosinophils) system which ge nerated this result tra nsmitted reference range : <=4.0. The reference r peri was not used to int erpret this result as normal/abnormal . [facility] HospitalSjhhilgFWXIGZKIDE6579-03-57 11:20:00 Test Item Value Reference Range Interpretation Comments Basophils (test code = 0.7 See_Comment [Aut omated message] The Basophils) system which ge nerated this result tra nsmitted reference range : <=1.0. The reference r peri was not used to int erpret this result as normal/abnormal . [facility] HospitalCkywblhZZFWQRQKRB9811-89-02 11:20:00 Test Item Value Reference Range Interpretation Comments Neutrophils # (test code = Neutrophils 3.8 1.5-8.1 #) [facility] HospitalLqfconxTVZHPRKAEA2798-61-70 11:20:00 Test Item Value Reference Range Interpretation Comments Lymphocytes # (test code = Lymphocytes 2.9 1.0-5.5 #) [facility] HospitalFqeafgnLZEIXUIHBF5605-03-14 11:20:00 Test Item Value Reference Range Interpretation Comments Monocytes # (test code 0.5 See_Comment [Aut omated message] The = Monocytes #) system which generated this result tra nsmitted reference range : <=0.8. The reference r peri was not used to int erpret this result as normal/abnormal . [facility] HospitalNjpwhbqJJCUBOFIHK7435-80-10 11:20:00 Test Item Value Reference Range Interpretation Comments Eosinophils # (test code 0.4 See_Comment [A utomated message] The = Eosinophils #) system whic h generated this result tra nsmitted reference range : <=0.5. The reference r peri was not used to int erpret this result as normal/abnormal . [facility] HospitalMgvyzaxHYISOIGYQR4395-45-23 11:20:00 Test Item Value Reference Range Interpretation Comments Basophils # (test code 0.1 See_Comment [Aut omated message] The = Basophils #) system which generated this result tra nsmitted reference range : <=0.2. The reference r peri was not used to int erpret this result as normal/abnormal . [facility] [id number] 11:20:00 Test Item Value Reference Range Interpretation Comments Total CK (test code = Total CK) 104 12-191 [facility]2022-12-11 11:20:00 Test Item Value Reference Range Interpretation Comments Glucose Lvl (test code = Glucose Lvl) 95 70-99 [facility]2022-12-11 11:20:00 Test Item Value Reference Range Interpretation Comments BUN (test code = BUN) 10 7-22 [facility]2022-12-11 11:20:00 Test Item Value Reference Range Interpretation Comments Creatinine Lvl (test code = Creatinine 0.70 0.50-1.40 Lvl) [facility]2022-12-11 11:20:00 Test Item Value Reference Range Interpretation Comments Sodium Lvl (test code = Sodium Lvl) 142 135-145 [facility]2022-12-11 11:20:00 Test Item Value Reference Range Interpretation Comments Potassium Lvl (test code = Potassium 3.8 3.5-5.1 Lvl) [place] [address]-12-11 11:20:00 Test Item Value Reference Range Interpretation Comments Chloride Lvl (test code = Chloride Lvl) 108 95-109 [place] [address]-12-11 11:20:00 Test Item Value Reference Range Interpretation Comments CO2 (test code = CO2) 24 24-32 [address]12-11 11:20:00 Test Item Value Reference Range Interpretation Comments AGAP (test code = AGAP) 13.8 10.0-20.0 [address]12-11 11:20:00 Test Item Value Reference Range Interpretation Comments Calcium Lvl (test code = Calcium Lvl) 9.7 8.5-10.5 [place] [address]-12-11 11:20:00 Test Item Value Reference Range Interpretation Comments B/C Ratio (test code = B/C Ratio) 14 1 6-[address]12-11 11:20:00 Test Item Value Reference Range Interpretation Comments Total Protein (test code = Total 5.9 6.4-8.4 Protein) [address]12-11 11:20:00 Test Item Value Reference Range Interpretation Comments Albumin Lvl (test code = Albumin Lvl) 2.9 3.5-5.0 [address]12-11 11:20:00 Test Item Value Reference Range Interpretation Comments Globulin (test code = Globulin) 3.0 2.7-4.[address]12-11 11:20:00 Test Item Value Reference Range Interpretation Comments A/G Ratio (test code = A/G Ratio) 1.0 1 0.7-1.[address]12-11 11:20:00 Test Item Value Reference Range Interpretation Comments ALT (test code = ALT) 36 See_Comment [Auto mated message] The system which ge nerated this result transmit suze reference range : <=65. The reference range was not used to interpr et this result as anselmo l/abnormal. [address]12-11 11:20:00 Test Item Value Reference Range Interpretation Comments AST (test code = AST) 23 See_Comment [Auto mated message] The system which ge nerated this result transmit suze reference range : <=37. The reference range was not used to interpr et this result as anselmo l/abnormal. [facility]2022-12-11 11:20:00 Test Item Value Reference Range Interpretation Comments Alk Phos (test code = Alk Phos) 77 39-136 [facility]2022-12-11 11:20:00 Test Item Value Reference Range Interpretation Comments Bili Total (test code = Bili Total) 0.2 0.2-1.3 [facility]2022-12-11 11:20:00 Test Item Value Reference Range Interpretation Comments eGFR (test code = eGFR) 117 [place] 610062-12-11 11:20:00 Test Item Value Reference Range Interpretation Comments Total CK (test code = Total CK) 104 12-191 [facility]IyubbtaNHEBYEJAM6073-66-16 11:20:00 Test Item Value Reference Range Interpretation Comments Glucose Lvl (test code = Glucose Lvl) 95 70-99 [facility] CenterRlrkiapVXAPBHGLO4462-22-24 11:20:00 Test Item Value Reference Range Interpretation Comments BUN (test code = BUN) 10 7-22 [facility] CenterVunvvsuKXVJZHCVZ3545-77-25 11:20:00 Test Item Value Reference Range Interpretation Comments Creatinine Lvl (test code = Creatinine 0.70 0.50-1.40 Lvl) [facility] CenterMfnhuleVUXWGGWNY8196-94-92 11:20:00 Test Item Value Reference Range Interpretation Comments Sodium Lvl (test code = Sodium Lvl) 142 135-145 [facility] CenterXauoaqoWGYKJPYEO4921-68-72 11:20:00 Test Item Value Reference Range Interpretation Comments Potassium Lvl (test code = Potassium 3.8 3.5-5.1 Lvl) [facility] CenterBwlthotTLTAPSDUW6739-00-03 11:20:00 Test Item Value Reference Range Interpretation Comments Chloride Lvl (test code = Chloride Lvl) 108 95-109 [place] 610062-12-11 11:20:00 Test Item Value Reference Range Interpretation Comments CO2 (test code = CO2) 24 24-32 [place] 610062-12-11 11:20:00 Test Item Value Reference Range Interpretation Comments AGAP (test code = AGAP) 13.8 10.0-20.0 [facility] CenterPzazfoeLBAFRFMTP2606-86-42 11:20:00 Test Item Value Reference Range Interpretation Comments Calcium Lvl (test code = Calcium Lvl) 9.7 8.5-10.5 [facility] CenterDlxlovfTPZKAOMQB4995-92-10 11:20:00 Test Item Value Reference Range Interpretation Comments B/C Ratio (test code = B/C Ratio) 14 1 6-25 [place] 610062-12-11 11:20:00 Test Item Value Reference Range Interpretation Comments Total Protein (test code = Total 5.9 6.4-8.4 Protein) [facility] CenterDktozndLHCXSVESM1832-51-30 11:20:00 Test Item Value Reference Range Interpretation Comments Albumin Lvl (test code = Albumin Lvl) 2.9 3.5-5.0 [facility] CenterTruttdsMRRPQGHXW6659-09-80 11:20:00 Test Item Value Reference Range Interpretation Comments Globulin (test code = Globulin) 3.0 2.7-4.2 [facility] CenterHtrpzgjGBWNETBQI8796-25-83 11:20:00 Test Item Value Reference Range Interpretation Comments A/G Ratio (test code = A/G Ratio) 1.0 1 0.7-1.6 [facility] CenterXhdzbimPAACSVSKL5576-35-94 11:20:00 Test Item Value Reference Range Interpretation Comments ALT (test code = ALT) 36 See_Comment [Auto mated message] The system which ge nerated this result transmit suze reference range : <=65. The reference range was not used to interpr et this result as anselmo l/abnormal. [facility] CenterYawpsxbGVEPNRNRJ2017-51-96 11:20:00 Test Item Value Reference Range Interpretation Comments AST (test code = AST) 23 See_Comment [Auto mated message] The system which ge nerated this result transmit suze reference range : <=37. The reference range was not used to interpr et this result as anselmo l/abnormal. [facility] CenterXocyxxwFXMPYPHUS5446-85-41 11:20:00 Test Item Value Reference Range Interpretation Comments Alk Phos (test code = Alk Phos) 77 39-136 [facility] CenterQpkfltlSGPXJUTTW6451-69-18 11:20:00 Test Item Value Reference Range Interpretation Comments Bili Total (test code = Bili Total) 0.2 0.2-1.3 [facility] CenterOdrackzCFXUNKAHY6639-24-65 11:20:00 Test Item Value Reference Range Interpretation Comments eGFR (test code = eGFR) 117 [place] 848172-12-11 11:20:00 Test Item Value Reference Range Interpretation Comments WBC (test code = WBC) 7.7 3.7-10.4 [place] 848172-12-11 11:20:00 Test Item Value Reference Range Interpretation Comments RBC (test code = RBC) 4.42 4.70-6.10 [facility] HospitalIhqghliQBGUQKYPLV1538-91-79 11:20:00 Test Item Value Reference Range Interpretation Comments Hgb (test code = Hgb) 13.7 14.0-18.0 [place] [address]-12-11 11:20:00 Test Item Value Reference Range Interpretation Comments Hct (test code = Hct) 40.0 42.0-54.0 [place] [address]-12-11 11:20:00 Test Item Value Reference Range Interpretation Comments MCV (test code = MCV) 90.7 80.0-94.0 [place] 848172-12-11 11:20:00 Test Item Value Reference Range Interpretation Comments MCH (test code = MCH) 31.0 pg 27.0-31.0 [place] 848172-12-11 11:20:00 Test Item Value Reference Range Interpretation Comments MCHC (test code = MCHC) 34.2 32.0-36.0 [facility] HospitalGlkaxvaWISJBMPATB7936-95-30 11:20:00 Test Item Value Reference Range Interpretation Comments RDW (test code = RDW) 12.7 11.5-14.5 [facility] HospitalFludoabBDDMHADGQG1083-26-13 11:20:00 Test Item Value Reference Range Interpretation Comments Platelet (test code = Platelet) 213 133-450 [facility] HospitalZedkavjJHRJSTJDAW9020-44-64 11:20:00 Test Item Value Reference Range Interpretation Comments MPV (test code = MPV) 9.5 7.4-10.4 [place] [address]-12-11 11:20:00 Test Item Value Reference Range Interpretation Comments Segs (test code = Segs) 49.3 45.0-75.0 [place] [address]-12-11 11:20:00 Test Item Value Reference Range Interpretation Comments Lymphocytes (test code = Lymphocytes) 38.0 20.0-40.0 [place] 848172-12-11 11:20:00 Test Item Value Reference Range Interpretation Comments Monocytes (test code = Monocytes) 7.1 2.0-12.0 [place] [address]-12-11 11:20:00 Test Item Value Reference Range Interpretation Comments Eosinophils (test code = 4.9 See_Comment [A utomated message] The Eosinophils) system which ge nerated this result tra nsmitted reference range : <=4.0. The reference r peri was not used to int erpret this result as normal/abnormal . [place] [address]-12-11 11:20:00 Test Item Value Reference Range Interpretation Comments Basophils (test code = 0.7 See_Comment [Aut omated message] The Basophils) system which ge nerated this result tra nsmitted reference range : <=1.0. The reference r peri was not used to int erpret this result as normal/abnormal . [address]12-11 11:20:00 Test Item Value Reference Range Interpretation Comments Neutrophils # (test code = Neutrophils 3.8 1.5-8.1 #) [address]12-11 11:20:00 Test Item Value Reference Range Interpretation Comments Lymphocytes # (test code = Lymphocytes 2.9 1.0-5.5 #) [address]12-11 11:20:00 Test Item Value Reference Range Interpretation Comments Monocytes # (test code 0.5 See_Comment [Aut omated message] The = Monocytes #) system which generated this result tra nsmitted reference range : <=0.8. The reference r peri was not used to int erpret this result as normal/abnormal . [place] [address]-12-11 11:20:00 Test Item Value Reference Range Interpretation Comments Eosinophils # (test code 0.4 See_Comment [A utomated message] The = Eosinophils #) system whic h generated this result tra nsmitted reference range : <=0.5. The reference r peri was not used to int erpret this result as normal/abnormal . [place] [address]-12-11 11:20:00 Test Item Value Reference Range Interpretation Comments Basophils # (test code 0.1 See_Comment [Aut omated message] The = Basophils #) system which generated this result tra nsmitted reference range : <=0.2. The reference r peri was not used to int erpret this result as normal/abnormal . [facility] [id number] 11:20:00 Test Item Value Reference Range Interpretation Comments Total CK (test code = Total CK) 142 12-191 [facility]2022-12-10 11:20:00 Test Item Value Reference Range Interpretation Comments Glucose Lvl (test code = Glucose Lvl) 130 70-99 [facility]2022-12-10 11:20:00 Test Item Value Reference Range Interpretation Comments BUN (test code = BUN) 10 7-22 [facility]2022-12-10 11:20:00 Test Item Value Reference Range Interpretation Comments Creatinine Lvl (test code = Creatinine 0.67 0.50-1.40 Lvl) [facility]2022-12-10 11:20:00 Test Item Value Reference Range Interpretation Comments Sodium Lvl (test code = Sodium Lvl) 143 135-145 [place] 826522-12-10 11:20:00 Test Item Value Reference Range Interpretation Comments Potassium Lvl (test code = Potassium 3.8 3.5-5.1 Lvl) [facility]2022-12-10 11:20:00 Test Item Value Reference Range Interpretation Comments Chloride Lvl (test code = Chloride Lvl) 112 95-109 [facility]2022-12-10 11:20:00 Test Item Value Reference Range Interpretation Comments CO2 (test code = CO2) 23 24-32 [place] 826522-12-10 11:20:00 Test Item Value Reference Range Interpretation Comments Calcium Lvl (test code = Calcium Lvl) 8.3 8.5-10.5 [facility]2022-12-10 11:20:00 Test Item Value Reference Range Interpretation Comments Total Protein (test code = Total 5.6 6.4-8.4 Protein) [facility]2022-12-10 11:20:00 Test Item Value Reference Range Interpretation Comments Albumin Lvl (test code = Albumin Lvl) 2.8 3.5-5.0 [facility]2022-12-10 11:20:00 Test Item Value Reference Range Interpretation Comments ALT (test code = ALT) 36 See_Comment [Auto mated message] The system which ge nerated this result transmit suze reference range : <=65. The reference range was not used to interpr et this result as anselmo l/abnormal. [facility] [id number] 11:20:00 Test Item Value Reference Range Interpretation Comments AST (test code = AST) 24 See_Comment [Auto mated message] The system which ge nerated this result transmit suze reference range : <=37. The reference range was not used to interpr et this result as anselmo l/abnormal. [facility] CenterDailymotion [id number] 11:20:00 Test Item Value Reference Range Interpretation Comments Alk Phos (test code = Alk Phos) 88 39-136 [facility]San[facility] [id number] 11:20:00 Test Item Value Reference Range Interpretation Comments Bili Total (test code = Bili Total) 0.1 0.2-1.3 [place] [address]-12-10 11:20:00 Test Item Value Reference Range Interpretation Comments AGAP (test code = AGAP) 11.8 10.0-20.0 [place] [address]-12-10 11:20:00 Test Item Value Reference Range Interpretation Comments B/C Ratio (test code = B/C Ratio) 15 1 6-25 [place] [address]-12-10 11:20:00 Test Item Value Reference Range Interpretation Comments Globulin (test code = Globulin) 2.8 2.7-4.2 [facility] CenterDail[facility] [id number] 11:20:00 Test Item Value Reference Range Interpretation Comments A/G Ratio (test code = A/G Ratio) 1.0 1 0.7-1.6 [facility]Dailym[facility] [id number] 11:20:00 Test Item Value Reference Range Interpretation Comments eGFR (test code = eGFR) 118 [place] [address]-12-10 11:20:00 Test Item Value Reference Range Interpretation Comments Segs (test code = Segs) 47.6 45.0-75.0 [place] [address]-12-10 11:20:00 Test Item Value Reference Range Interpretation Comments Lymphocytes (test code = Lymphocytes) 39.9 20.0-40.0 [place] [address]-12-10 11:20:00 Test Item Value Reference Range Interpretation Comments Monocytes (test code = Monocytes) 6.5 2.0-12.0 [place] [address]-12-10 11:20:00 Test Item Value Reference Range Interpretation Comments Eosinophils (test code = 5.1 See_Comment [A utomated message] The Eosinophils) system which ge nerated this result tra nsmitted reference range : <=4.0. The reference r peri was not used to int erpret this result as normal/abnormal . [place] [address]-12-10 11:20:00 Test Item Value Reference Range Interpretation Comments Basophils (test code = 0.9 See_Comment [Aut omated message] The Basophils) system which ge nerated this result tra nsmitted reference range : <=1.0. The reference r peri was not used to int erpret this result as normal/abnormal . [place] [address]-12-10 11:20:00 Test Item Value Reference Range Interpretation Comments Neutrophils # (test code = Neutrophils 3.3 1.5-8.1 #) [place] [address]-12-10 11:20:00 Test Item Value Reference Range Interpretation Comments Lymphocytes # (test code = Lymphocytes 2.8 1.0-5.5 #) [place] [address]-12-10 11:20:00 Test Item Value Reference Range Interpretation Comments Monocytes # (test code 0.5 See_Comment [Aut omated message] The = Monocytes #) system which generated this result tra nsmitted reference range : <=0.8. The reference r peri was not used to int erpret this result as normal/abnormal . [place] [address]-12-10 11:20:00 Test Item Value Reference Range Interpretation Comments Eosinophils # (test code 0.4 See_Comment [A utomated message] The = Eosinophils #) system whic h generated this result tra nsmitted reference range : <=0.5. The reference r peri was not used to int erpret this result as normal/abnormal . [place] [address]-12-10 11:20:00 Test Item Value Reference Range Interpretation Comments Basophils # (test code 0.1 See_Comment [Aut omated message] The = Basophils #) system which generated this result tra nsmitted reference range : <=0.2. The reference r peri was not used to int erpret this result as normal/abnormal . [facility] HospitalZcaueurEJWXFHGJBT4437-50-37 11:20:00 Test Item Value Reference Range Interpretation Comments WBC (test code = WBC) 6.9 3.7-10.4 [facility] HospitalVoacvhwWNCEKOHNXS9706-64-02 11:20:00 Test Item Value Reference Range Interpretation Comments RBC (test code = RBC) 4.38 4.70-6.10 [facility] HospitalBhrjrajXBHOTYBLSY2667-94-45 11:20:00 Test Item Value Reference Range Interpretation Comments Hgb (test code = Hgb) 13.3 14.0-18.0 [facility] HospitalCslrwroBDJDTFAZLC8858-02-39 11:20:00 Test Item Value Reference Range Interpretation Comments Hct (test code = Hct) 39.8 42.0-54.0 [facility] HospitalJmxrmrkIAFGEZUOTC5075-49-68 11:20:00 Test Item Value Reference Range Interpretation Comments MCV (test code = MCV) 90.7 80.0-94.0 [facility] HospitalPldedysVYAIYUQIWB3021-83-26 11:20:00 Test Item Value Reference Range Interpretation Comments MCH (test code = MCH) 30.4 pg 27.0-31.0 [facility] HospitalItmfzizPILMPZMBCL7905-86-12 11:20:00 Test Item Value Reference Range Interpretation Comments MCHC (test code = MCHC) 33.6 32.0-36.0 [facility] HospitalPunncnkOBSRYFEEQI4688-42-42 11:20:00 Test Item Value Reference Range Interpretation Comments RDW (test code = RDW) 12.7 11.5-14.5 [facility] HospitalIsylqdxXGINCSTFAB4687-95-72 11:20:00 Test Item Value Reference Range Interpretation Comments Platelet (test code = Platelet) 188 133-450 [facility] HospitalUivxxwsYEEOBYVNFG9622-31-63 11:20:00 Test Item Value Reference Range Interpretation Comments MPV (test code = MPV) 9.9 7.4-10.4 [facility]CARD[facility] [id number] 11:20:00 Test Item Value Reference Range Interpretation Comments Total CK (test code = Total CK) 142 12-191 [facility]2022-12-10 11:20:00 Test Item Value Reference Range Interpretation Comments Glucose Lvl (test code = Glucose Lvl) 130 70-99 [facility]2022-12-10 11:20:00 Test Item Value Reference Range Interpretation Comments BUN (test code = BUN) 10 7-22 [place] [address]-12-10 11:20:00 Test Item Value Reference Range Interpretation Comments Creatinine Lvl (test code = Creatinine 0.67 0.50-1.40 Lvl) [place] [address]-12-10 11:20:00 Test Item Value Reference Range Interpretation Comments Sodium Lvl (test code = Sodium Lvl) 143 135-145 [place] [address]-12-10 11:20:00 Test Item Value Reference Range Interpretation Comments Potassium Lvl (test code = Potassium 3.8 3.5-5.1 Lvl) [address]12-10 11:20:00 Test Item Value Reference Range Interpretation Comments Chloride Lvl (test code = Chloride Lvl) 112 95-109 [place] [address]-12-10 11:20:00 Test Item Value Reference Range Interpretation Comments CO2 (test code = CO2) 23 24-32 [address]12-10 11:20:00 Test Item Value Reference Range Interpretation Comments Calcium Lvl (test code = Calcium Lvl) 8.3 8.5-10.5 [place] [address]-12-10 11:20:00 Test Item Value Reference Range Interpretation Comments Total Protein (test code = Total 5.6 6.4-8.4 Protein) [address]12-10 11:20:00 Test Item Value Reference Range Interpretation Comments Albumin Lvl (test code = Albumin Lvl) 2.8 3.5-5.0 [place] [address]-12-10 11:20:00 Test Item Value Reference Range Interpretation Comments ALT (test code = ALT) 36 See_Comment [Auto mated message] The system which ge nerated this result transmit suze reference range : <=65. The reference range was not used to interpr et this result as anselmo l/abnormal. [address]12-10 11:20:00 Test Item Value Reference Range Interpretation Comments AST (test code = AST) 24 See_Comment [Auto mated message] The system which ge nerated this result transmit suze reference range : <=37. The reference range was not used to interpr et this result as anselmo l/abnormal. [place] [address]-10 11:20:00 Test Item Value Reference Range Interpretation Comments Alk Phos (test code = Alk Phos) 88 39-136 [place] [address]-12-10 11:20:00 Test Item Value Reference Range Interpretation Comments Bili Total (test code = Bili Total) 0.1 0.2-1.3 [place] [address]-12-10 11:20:00 Test Item Value Reference Range Interpretation Comments AGAP (test code = AGAP) 11.8 10.0-20.0 [place] [address]-12-10 11:20:00 Test Item Value Reference Range Interpretation Comments B/C Ratio (test code = B/C Ratio) 15 1 6-25 [address]12-10 11:20:00 Test Item Value Reference Range Interpretation Comments Globulin (test code = Globulin) 2.8 2.7-4.2 [place] [address]-12-10 11:20:00 Test Item Value Reference Range Interpretation Comments A/G Ratio (test code = A/G Ratio) 1.0 1 0.7-1.6 [place] [address]-12-10 11:20:00 Test Item Value Reference Range Interpretation Comments eGFR (test code = eGFR) 118 [place] [address]-12-10 11:20:00 Test Item Value Reference Range Interpretation Comments Segs (test code = Segs) 47.6 45.0-75.0 [place] [address]-12-10 11:20:00 Test Item Value Reference Range Interpretation Comments Lymphocytes (test code = Lymphocytes) 39.9 20.0-40.0 [place] [address]-12-10 11:20:00 Test Item Value Reference Range Interpretation Comments Monocytes (test code = Monocytes) 6.5 2.0-12.0 [place] [address]-12-10 11:20:00 Test Item Value Reference Range Interpretation Comments Eosinophils (test code = 5.1 See_Comment [A utomated message] The Eosinophils) system which ge nerated this result tra nsmitted reference range : <=4.0. The reference r peri was not used to int erpret this result as normal/abnormal . [place] [address]-12-10 11:20:00 Test Item Value Reference Range Interpretation Comments Basophils (test code = 0.9 See_Comment [Aut omated message] The Basophils) system which ge nerated this result tra nsmitted reference range : <=1.0. The reference r peri was not used to int erpret this result as normal/abnormal . [place] 848172-12-10 11:20:00 Test Item Value Reference Range Interpretation Comments Neutrophils # (test code = Neutrophils 3.3 1.5-8.1 #) [place] [address]-12-10 11:20:00 Test Item Value Reference Range Interpretation Comments Lymphocytes # (test code = Lymphocytes 2.8 1.0-5.5 #) [place] [address]-12-10 11:20:00 Test Item Value Reference Range Interpretation Comments Monocytes # (test code 0.5 See_Comment [Aut omated message] The = Monocytes #) system which generated this result tra nsmitted reference range : <=0.8. The reference r peri was not used to int erpret this result as normal/abnormal . [place] 848172-12-10 11:20:00 Test Item Value Reference Range Interpretation Comments Eosinophils # (test code 0.4 See_Comment [A utomated message] The = Eosinophils #) system whic h generated this result tra nsmitted reference range : <=0.5. The reference r peri was not used to int erpret this result as normal/abnormal . [place] 848172-12-10 11:20:00 Test Item Value Reference Range Interpretation Comments Basophils # (test code 0.1 See_Comment [Aut omated message] The = Basophils #) system which generated this result tra nsmitted reference range : <=0.2. The reference r peri was not used to int erpret this result as normal/abnormal . [place] 848172-12-10 11:20:00 Test Item Value Reference Range Interpretation Comments WBC (test code = WBC) 6.9 3.7-10.4 [place] 848172-12-10 11:20:00 Test Item Value Reference Range Interpretation Comments RBC (test code = RBC) 4.38 4.70-6.10 [place] [address]-12-10 11:20:00 Test Item Value Reference Range Interpretation Comments Hgb (test code = Hgb) 13.3 14.0-18.0 [facility] CenterAmzxpccBXIHFJOAYI0919-67-08 11:20:00 Test Item Value Reference Range Interpretation Comments Hct (test code = Hct) 39.8 42.0-54.0 [place] Hospital[facility]mm[facility]KBPJCZQ4449-79-55 11:20:00 Test Item Value Reference Range Interpretation Comments MCV (test code = MCV) 90.7 80.0-94.0 [facility]TkudxboSXGBDSLAGR0339-87-46 11:20:00 Test Item Value Reference Range Interpretation Comments MCH (test code = MCH) 30.4 pg 27.0-31.0 [facility] HospitalXghuyvxMBPDQCDSZI4947-96-88 11:20:00 Test Item Value Reference Range Interpretation Comments MCHC (test code = MCHC) 33.6 32.0-36.0 [facility] HospitalNdirblzUGOELCHKIX7840-78-38 11:20:00 Test Item Value Reference Range Interpretation Comments RDW (test code = RDW) 12.7 11.5-14.5 [facility] HospitalCmiqtvjIVFRPOJYKU7256-18-92 11:20:00 Test Item Value Reference Range Interpretation Comments Platelet (test code = Platelet) 188 133-450 [facility] HospitalEzwpeqcDLCVAUUNYR8031-39-55 11:20:00 Test Item Value Reference Range Interpretation Comments MPV (test code = MPV) 9.9 7.4-10.4 [facility]ITALTSQTLYZ5057-52-78 11:20:00 Test Item Value Reference Range Interpretation Comments Total CK (test code = Total CK) 142 12-191 [facility]2022-12-10 11:20:00 Test Item Value Reference Range Interpretation Comments Glucose Lvl (test code = Glucose Lvl) 130 70-99 [facility]2022-12-10 11:20:00 Test Item Value Reference Range Interpretation Comments BUN (test code = BUN) 10 7-22 [facility]2022-12-10 11:20:00 Test Item Value Reference Range Interpretation Comments Creatinine Lvl (test code = Creatinine 0.67 0.50-1.40 Lvl) [facility]2022-12-10 11:20:00 Test Item Value Reference Range Interpretation Comments Sodium Lvl (test code = Sodium Lvl) 143 135-145 [facility]2022-12-10 11:20:00 Test Item Value Reference Range Interpretation Comments Potassium Lvl (test code = Potassium 3.8 3.5-5.1 Lvl) [facility] OnlineMIC[place] [id number] 11:20:00 Test Item Value Reference Range Interpretation Comments Chloride Lvl (test code = Chloride Lvl) 112 95-109 [facility] [id number] 11:20:00 Test Item Value Reference Range Interpretation Comments CO2 (test code = CO2) 23 24-32 [place] [address]-12-10 11:20:00 Test Item Value Reference Range Interpretation Comments Calcium Lvl (test code = Calcium Lvl) 8.3 8.5-10.5 [facility] [id number] 11:20:00 Test Item Value Reference Range Interpretation Comments Total Protein (test code = Total 5.6 6.4-8.4 Protein) [place] [address]-12-10 11:20:00 Test Item Value Reference Range Interpretation Comments Albumin Lvl (test code = Albumin Lvl) 2.8 3.5-5.0 [facility] [id number] 11:20:00 Test Item Value Reference Range Interpretation Comments ALT (test code = ALT) 36 See_Comment [Auto mated message] The system which ge nerated this result transmit suze reference range : <=65. The reference range was not used to interpr et this result as anselmo l/abnormal. [facility] [id number] 11:20:00 Test Item Value Reference Range Interpretation Comments AST (test code = AST) 24 See_Comment [Auto mated message] The system which ge nerated this result transmit suze reference range : <=37. The reference range was not used to interpr et this result as anselmo l/abnormal. [facility] [id number] 11:20:00 Test Item Value Reference Range Interpretation Comments Alk Phos (test code = Alk Phos) 88 39-136 [facility] [id number] 11:20:00 Test Item Value Reference Range Interpretation Comments Bili Total (test code = Bili Total) 0.1 0.2-1.3 [facility] [id number] 11:20:00 Test Item Value Reference Range Interpretation Comments AGAP (test code = AGAP) 11.8 10.0-20.0 [place] [address]-12-10 11:20:00 Test Item Value Reference Range Interpretation Comments B/C Ratio (test code = B/C Ratio) 15 1 6-25 [place] [address]-12-10 11:20:00 Test Item Value Reference Range Interpretation Comments Globulin (test code = Globulin) 2.8 2.7-4.2 [place] [address]-12-10 11:20:00 Test Item Value Reference Range Interpretation Comments A/G Ratio (test code = A/G Ratio) 1.0 1 0.7-1.6 [address]12-10 11:20:00 Test Item Value Reference Range Interpretation Comments eGFR (test code = eGFR) 118 [place] [address]-12-10 11:20:00 Test Item Value Reference Range Interpretation Comments Segs (test code = Segs) 47.6 45.0-75.0 [place] [address]-12-10 11:20:00 Test Item Value Reference Range Interpretation Comments Lymphocytes (test code = Lymphocytes) 39.9 20.0-40.0 [place] [address]-12-10 11:20:00 Test Item Value Reference Range Interpretation Comments Monocytes (test code = Monocytes) 6.5 2.0-12.0 [place] [address]-12-10 11:20:00 Test Item Value Reference Range Interpretation Comments Eosinophils (test code = 5.1 See_Comment [A utomated message] The Eosinophils) system which ge nerated this result tra nsmitted reference range : <=4.0. The reference r peri was not used to int erpret this result as normal/abnormal . [place] [address]-12-10 11:20:00 Test Item Value Reference Range Interpretation Comments Basophils (test code = 0.9 See_Comment [Aut omated message] The Basophils) system which ge nerated this result tra nsmitted reference range : <=1.0. The reference r peri was not used to int erpret this result as normal/abnormal . [place] [address]-12-10 11:20:00 Test Item Value Reference Range Interpretation Comments Neutrophils # (test code = Neutrophils 3.3 1.5-8.1 #) [address]12-10 11:20:00 Test Item Value Reference Range Interpretation Comments Lymphocytes # (test code = Lymphocytes 2.8 1.0-5.5 #) [place] [address]-12-10 11:20:00 Test Item Value Reference Range Interpretation Comments Monocytes # (test code 0.5 See_Comment [Aut omated message] The = Monocytes #) system which generated this result tra nsmitted reference range : <=0.8. The reference r peri was not used to int erpret this result as normal/abnormal . [place] 848172-12-10 11:20:00 Test Item Value Reference Range Interpretation Comments Eosinophils # (test code 0.4 See_Comment [A utomated message] The = Eosinophils #) system whic h generated this result tra nsmitted reference range : <=0.5. The reference r peri was not used to int erpret this result as normal/abnormal . [place] 848172-12-10 11:20:00 Test Item Value Reference Range Interpretation Comments Basophils # (test code 0.1 See_Comment [Aut omated message] The = Basophils #) system which generated this result tra nsmitted reference range : <=0.2. The reference r peri was not used to int erpret this result as normal/abnormal . [place] 848172-12-10 11:20:00 Test Item Value Reference Range Interpretation Comments WBC (test code = WBC) 6.9 3.7-10.4 [place] [address]-12-10 11:20:00 Test Item Value Reference Range Interpretation Comments RBC (test code = RBC) 4.38 4.70-6.10 [place] [address]-12-10 11:20:00 Test Item Value Reference Range Interpretation Comments Hgb (test code = Hgb) 13.3 14.0-18.0 [place] [address]-12-10 11:20:00 Test Item Value Reference Range Interpretation Comments Hct (test code = Hct) 39.8 42.0-54.0 [place] [address]-12-10 11:20:00 Test Item Value Reference Range Interpretation Comments MCV (test code = MCV) 90.7 80.0-94.0 [place] [address]-12-10 11:20:00 Test Item Value Reference Range Interpretation Comments MCH (test code = MCH) 30.4 pg 27.0-31.0 [facility] CenterYaeohxuWHYQRJBDEG1874-05-46 11:20:00 Test Item Value Reference Range Interpretation Comments MCHC (test code = MCHC) 33.6 32.0-36.0 [facility] HospitalSukdlngWASPJQDZWG1527-67-57 11:20:00 Test Item Value Reference Range Interpretation Comments RDW (test code = RDW) 12.7 11.5-14.5 [facility] CenterSmrvnfmLAKLQYUEPT3240-76-90 11:20:00 Test Item Value Reference Range Interpretation Comments Platelet (test code = Platelet) 188 133-450 [facility] CenterDjvtyhsNRQLZYKQZR0097-49-23 11:20:00 Test Item Value Reference Range Interpretation Comments MPV (test code = MPV) 9.9 7.4-10.4 [facility] [id number] 11:20:00 Test Item Value Reference Range Interpretation Comments Total CK (test code = Total CK) 142 12-191 [facility] [id number] 11:20:00 Test Item Value Reference Range Interpretation Comments Glucose Lvl (test code = Glucose Lvl) 130 70-99 [facility] [id number] 11:20:00 Test Item Value Reference Range Interpretation Comments BUN (test code = BUN) 10 7-22 [facility] [id number] 11:20:00 Test Item Value Reference Range Interpretation Comments Creatinine Lvl (test code = Creatinine 0.67 0.50-1.40 Lvl) [facility]Wifi OnlineDAY[facility] [id number] 11:20:00 Test Item Value Reference Range Interpretation Comments Sodium Lvl (test code = Sodium Lvl) 143 135-145 [facility] [id number] 11:20:00 Test Item Value Reference Range Interpretation Comments Potassium Lvl (test code = Potassium 3.8 3.5-5.1 Lvl) [facility] [id number] 11:20:00 Test Item Value Reference Range Interpretation Comments Chloride Lvl (test code = Chloride Lvl) 112 95-109 [facility] [id number] 11:20:00 Test Item Value Reference Range Interpretation Comments CO2 (test code = CO2) 23 24-32 [facility]-12-10 11:20:00 Test Item Value Reference Range Interpretation Comments Calcium Lvl (test code = Calcium Lvl) 8.3 8.5-10.5 [place] [address]-12-10 11:20:00 Test Item Value Reference Range Interpretation Comments Total Protein (test code = Total 5.6 6.4-8.4 Protein) [facility] [id number] 11:20:00 Test Item Value Reference Range Interpretation Comments Albumin Lvl (test code = Albumin Lvl) 2.8 3.5-5.0 [facility] [id number] 11:20:00 Test Item Value Reference Range Interpretation Comments ALT (test code = ALT) 36 See_Comment [Auto mated message] The system which ge nerated this result transmit suze reference range : <=65. The reference range was not used to interpr et this result as anselmo l/abnormal. [facility] [id number] 11:20:00 Test Item Value Reference Range Interpretation Comments AST (test code = AST) 24 See_Comment [Auto mated message] The system which ge nerated this result transmit suze reference range : <=37. The reference range was not used to interpr et this result as anselmo l/abnormal. [facility] [id number] 11:20:00 Test Item Value Reference Range Interpretation Comments Alk Phos (test code = Alk Phos) 88 39-136 [facility] [employer] [id number] 11:20:00 Test Item Value Reference Range Interpretation Comments Bili Total (test code = Bili Total) 0.1 0.2-1.3 [facility] [id number] 11:20:00 Test Item Value Reference Range Interpretation Comments AGAP (test code = AGAP) 11.8 10.0-20.0 [facility] [employer] [id number] 11:20:00 Test Item Value Reference Range Interpretation Comments B/C Ratio (test code = B/C Ratio) 15 1 6-25 [facility] [id number] 11:20:00 Test Item Value Reference Range Interpretation Comments Globulin (test code = Globulin) 2.8 2.7-4.2 [facility] [employer] [id number] 11:20:00 Test Item Value Reference Range Interpretation Comments A/G Ratio (test code = A/G Ratio) 1.0 1 0.7-1.6 [facility]2022-12-10 11:20:00 Test Item Value Reference Range Interpretation Comments eGFR (test code = eGFR) 118 [place] [address]-12-10 11:20:00 Test Item Value Reference Range Interpretation Comments Segs (test code = Segs) 47.6 45.0-75.0 [place] [address]-12-10 11:20:00 Test Item Value Reference Range Interpretation Comments Lymphocytes (test code = Lymphocytes) 39.9 20.0-40.0 [place] [address]-12-10 11:20:00 Test Item Value Reference Range Interpretation Comments Monocytes (test code = Monocytes) 6.5 2.0-12.0 [place] [address]-12-10 11:20:00 Test Item Value Reference Range Interpretation Comments Eosinophils (test code = 5.1 See_Comment [A utomated message] The Eosinophils) system which ge nerated this result tra nsmitted reference range : <=4.0. The reference r peri was not used to int erpret this result as normal/abnormal . [place] [address]-12-10 11:20:00 Test Item Value Reference Range Interpretation Comments Basophils (test code = 0.9 See_Comment [Aut omated message] The Basophils) system which ge nerated this result tra nsmitted reference range : <=1.0. The reference r peri was not used to int erpret this result as normal/abnormal . [place] 848172-12-10 11:20:00 Test Item Value Reference Range Interpretation Comments Neutrophils # (test code = Neutrophils 3.3 1.5-8.1 #) [place] [address]-12-10 11:20:00 Test Item Value Reference Range Interpretation Comments Lymphocytes # (test code = Lymphocytes 2.8 1.0-5.5 #) [place] [address]-12-10 11:20:00 Test Item Value Reference Range Interpretation Comments Monocytes # (test code 0.5 See_Comment [Aut omated message] The = Monocytes #) system which generated this result tra nsmitted reference range : <=0.8. The reference r peri was not used to int erpret this result as normal/abnormal . [facility] HospitalHjfwbypFLPVKZSYMN7742-06-29 11:20:00 Test Item Value Reference Range Interpretation Comments Eosinophils # (test code 0.4 See_Comment [A utomated message] The = Eosinophils #) system whic h generated this result tra nsmitted reference range : <=0.5. The reference r peri was not used to int erpret this result as normal/abnormal . [facility] HospitalBhcifkaEHGFRIIYRX6032-70-66 11:20:00 Test Item Value Reference Range Interpretation Comments Basophils # (test code 0.1 See_Comment [Aut omated message] The = Basophils #) system which generated this result tra nsmitted reference range : <=0.2. The reference r peri was not used to int erpret this result as normal/abnormal . [facility] Hospit[id number] 11:20:00 Test Item Value Reference Range Interpretation Comments WBC (test code = WBC) 6.9 3.7-10.4 [facility] Hospit[id number] 11:20:00 Test Item Value Reference Range Interpretation Comments RBC (test code = RBC) 4.38 4.70-6.10 [facility] HospitalTicwxryMUWXMXWGOO5977-42-18 11:20:00 Test Item Value Reference Range Interpretation Comments Hgb (test code = Hgb) 13.3 14.0-18.0 [facility] HospitalWdlggzgKNVCPAHGPO1585-53-81 11:20:00 Test Item Value Reference Range Interpretation Comments Hct (test code = Hct) 39.8 42.0-54.0 [place] 848172-12-10 11:20:00 Test Item Value Reference Range Interpretation Comments MCV (test code = MCV) 90.7 80.0-94.0 [facility] HospitalTwybpywWTKXVCXKHY5948-44-38 11:20:00 Test Item Value Reference Range Interpretation Comments MCH (test code = MCH) 30.4 pg 27.0-31.0 [facility] HospitalKoylmrdIRQSIZMOUE9861-57-34 11:20:00 Test Item Value Reference Range Interpretation Comments MCHC (test code = MCHC) 33.6 32.0-36.0 [facility] HospitalPtsxtygOMSUVEPOCV2875-04-10 11:20:00 Test Item Value Reference Range Interpretation Comments RDW (test code = RDW) 12.7 11.5-14.5 [place] [address]-12-10 11:20:00 Test Item Value Reference Range Interpretation Comments Platelet (test code = Platelet) 188 133-450 [facility]PtbyazrVGTQQVOONK3652-58-83 11:20:00 Test Item Value Reference Range Interpretation Comments MPV (test code = MPV) 9.9 7.4-10.4 [facility] [id number] 11:20:00 Test Item Value Reference Range Interpretation Comments Total CK (test code = Total CK) 142 12-191 [facility] [id number] 11:20:00 Test Item Value Reference Range Interpretation Comments Glucose Lvl (test code = Glucose Lvl) 130 70-99 [facility]2022-12-10 11:20:00 Test Item Value Reference Range Interpretation Comments BUN (test code = BUN) 10 7-22 [facility]2022-12-10 11:20:00 Test Item Value Reference Range Interpretation Comments Creatinine Lvl (test code = Creatinine 0.67 0.50-1.40 Lvl) [facility]2022-12-10 11:20:00 Test Item Value Reference Range Interpretation Comments Sodium Lvl (test code = Sodium Lvl) 143 135-145 [facility]2022-12-10 11:20:00 Test Item Value Reference Range Interpretation Comments Potassium Lvl (test code = Potassium 3.8 3.5-5.1 Lvl) [facility]2022-12-10 11:20:00 Test Item Value Reference Range Interpretation Comments Chloride Lvl (test code = Chloride Lvl) 112 95-109 [facility]2022-12-10 11:20:00 Test Item Value Reference Range Interpretation Comments CO2 (test code = CO2) 23 24-32 [facility]2022-12-10 11:20:00 Test Item Value Reference Range Interpretation Comments Calcium Lvl (test code = Calcium Lvl) 8.3 8.5-10.5 [facility]2022-12-10 11:20:00 Test Item Value Reference Range Interpretation Comments Total Protein (test code = Total 5.6 6.4-8.4 Protein) [facility]2022-12-10 11:20:00 Test Item Value Reference Range Interpretation Comments Albumin Lvl (test code = Albumin Lvl) 2.8 3.5-5.0 [facility]Wifi OnlineMIC[place] [id number] 11:20:00 Test Item Value Reference Range Interpretation Comments ALT (test code = ALT) 36 See_Comment [Auto mated message] The system which ge nerated this result transmit suze reference range : <=65. The reference range was not used to interpr et this result as anselmo l/abnormal. [facility] [id number] 11:20:00 Test Item Value Reference Range Interpretation Comments AST (test code = AST) 24 See_Comment [Auto mated message] The system which ge nerated this result transmit suze reference range : <=37. The reference range was not used to interpr et this result as anselmo l/abnormal. [facility] [id number] 11:20:00 Test Item Value Reference Range Interpretation Comments Alk Phos (test code = Alk Phos) 88 39-136 [facility] [id number] 11:20:00 Test Item Value Reference Range Interpretation Comments Bili Total (test code = Bili Total) 0.1 0.2-1.3 [facility] [id number] 11:20:00 Test Item Value Reference Range Interpretation Comments AGAP (test code = AGAP) 11.8 10.0-20.0 [facility] [id number] 11:20:00 Test Item Value Reference Range Interpretation Comments B/C Ratio (test code = B/C Ratio) 15 1 6-[address]12-10 11:20:00 Test Item Value Reference Range Interpretation Comments Globulin (test code = Globulin) 2.8 2.7-4.2 [facility] [id number] 11:20:00 Test Item Value Reference Range Interpretation Comments A/G Ratio (test code = A/G Ratio) 1.0 1 0.7-1.6 [facility] [id number] 11:20:00 Test Item Value Reference Range Interpretation Comments eGFR (test code = eGFR) [address]12-10 11:20:00 Test Item Value Reference Range Interpretation Comments Segs (test code = Segs) 47.6 45.0-75.0 [place] [address]-12-10 11:20:00 Test Item Value Reference Range Interpretation Comments Lymphocytes (test code = Lymphocytes) 39.9 20.0-40.0 [place] 848172-12-10 11:20:00 Test Item Value Reference Range Interpretation Comments Monocytes (test code = Monocytes) 6.5 2.0-12.0 [place] [address]-12-10 11:20:00 Test Item Value Reference Range Interpretation Comments Eosinophils (test code = 5.1 See_Comment [A utomated message] The Eosinophils) system which ge nerated this result tra nsmitted reference range : <=4.0. The reference r peri was not used to int erpret this result as normal/abnormal . [place] 848172-12-10 11:20:00 Test Item Value Reference Range Interpretation Comments Basophils (test code = 0.9 See_Comment [Aut omated message] The Basophils) system which ge nerated this result tra nsmitted reference range : <=1.0. The reference r peri was not used to int erpret this result as normal/abnormal . [facility] HospitalOcpsjoiLAMQMGJBMS7616-59-32 11:20:00 Test Item Value Reference Range Interpretation Comments Neutrophils # (test code = Neutrophils 3.3 1.5-8.1 #) [facility] HospitalUscvwjpFCXJVKMLWK9718-97-54 11:20:00 Test Item Value Reference Range Interpretation Comments Lymphocytes # (test code = Lymphocytes 2.8 1.0-5.5 #) [facility] HospitalIshbjdtTUZIHVJQTO9028-63-41 11:20:00 Test Item Value Reference Range Interpretation Comments Monocytes # (test code 0.5 See_Comment [Aut omated message] The = Monocytes #) system which generated this result tra nsmitted reference range : <=0.8. The reference r peri was not used to int erpret this result as normal/abnormal . [facility] HospitalGdyawreUTJYJONGYL9232-68-12 11:20:00 Test Item Value Reference Range Interpretation Comments Eosinophils # (test code 0.4 See_Comment [A utomated message] The = Eosinophils #) system ic h generated this result tra nsmitted reference range : <=0.5. The reference r peri was not used to int erpret this result as normal/abnormal . [facility] HospitalShnmccwEZUHTDZTGC5787-05-65 11:20:00 Test Item Value Reference Range Interpretation Comments Basophils # (test code 0.1 See_Comment [Aut omated message] The = Basophils #) system which generated this result tra nsmitted reference range : <=0.2. The reference r peri was not used to int erpret this result as normal/abnormal . [facility] HospitalGwkbimxFZCIVSXGGR1743-06-19 11:20:00 Test Item Value Reference Range Interpretation Comments WBC (test code = WBC) 6.9 3.7-10.4 [facility] HospitalAdfegokDSEIDLHAUC0698-73-15 11:20:00 Test Item Value Reference Range Interpretation Comments RBC (test code = RBC) 4.38 4.70-6.10 [facility] HospitalXienyyePYDNHPGJHI2110-51-76 11:20:00 Test Item Value Reference Range Interpretation Comments Hgb (test code = Hgb) 13.3 14.0-18.0 [facility] HospitalSgmuxxwPYUQEFUEVU5520-53-48 11:20:00 Test Item Value Reference Range Interpretation Comments Hct (test code = Hct) 39.8 42.0-54.0 [facility] HospitalLiwwkquUOWEKIGRKB5777-04-89 11:20:00 Test Item Value Reference Range Interpretation Comments MCV (test code = MCV) 90.7 80.0-94.0 [facility] CenterYfxijkhTMFLZHZAKN1657-17-92 11:20:00 Test Item Value Reference Range Interpretation Comments MCH (test code = MCH) 30.4 pg 27.0-31.0 [facility] CenterFbbljltRRRXGDBOLO5621-79-29 11:20:00 Test Item Value Reference Range Interpretation Comments MCHC (test code = MCHC) 33.6 32.0-36.0 [facility] HospitalEbnxctsRISAYDRWHR2603-23-32 11:20:00 Test Item Value Reference Range Interpretation Comments RDW (test code = RDW) 12.7 11.5-14.5 [facility] CenterHnvfcwcKVSPOMHQLR2628-38-54 11:20:00 Test Item Value Reference Range Interpretation Comments Platelet (test code = Platelet) 188 133-450 [facility] CenterYtnwkyzUKVGUPAWOG1651-91-73 11:20:00 Test Item Value Reference Range Interpretation Comments MPV (test code = MPV) 9.9 7.4-10.4 [facility] [id number] 11:20:00 Test Item Value Reference Range Interpretation Comments Total CK (test code = Total CK) 142 12-191 [place] 826522-12-10 11:20:00 Test Item Value Reference Range Interpretation Comments Glucose Lvl (test code = Glucose Lvl) 130 70-99 [place] 826522-12-10 11:20:00 Test Item Value Reference Range Interpretation Comments BUN (test code = BUN) 10 7-22 [place] 826522-12-10 11:20:00 Test Item Value Reference Range Interpretation Comments Creatinine Lvl (test code = Creatinine 0.67 0.50-1.40 Lvl) [place] 826522-12-10 11:20:00 Test Item Value Reference Range Interpretation Comments Sodium Lvl (test code = Sodium Lvl) 143 135-145 [place] 826522-12-10 11:20:00 Test Item Value Reference Range Interpretation Comments Potassium Lvl (test code = Potassium 3.8 3.5-5.1 Lvl) [place] 826522-12-10 11:20:00 Test Item Value Reference Range Interpretation Comments Chloride Lvl (test code = Chloride Lvl) 112 95-109 [place] 826522-12-10 11:20:00 Test Item Value Reference Range Interpretation Comments CO2 (test code = CO2) 23 24-32 [place] [address]-12-10 11:20:00 Test Item Value Reference Range Interpretation Comments Calcium Lvl (test code = Calcium Lvl) 8.3 8.5-10.5 [place] 826522-12-10 11:20:00 Test Item Value Reference Range Interpretation Comments Total Protein (test code = Total 5.6 6.4-8.4 Protein) [place] [address]-12-10 11:20:00 Test Item Value Reference Range Interpretation Comments Albumin Lvl (test code = Albumin Lvl) 2.8 3.5-5.0 [place] [address]-12-10 11:20:00 Test Item Value Reference Range Interpretation Comments ALT (test code = ALT) 36 See_Comment [Auto mated message] The system which ge nerated this result transmit suze reference range : <=65. The reference range was not used to interpr et this result as anselmo l/abnormal. [place] 826522-12-10 11:20:00 Test Item Value Reference Range Interpretation Comments AST (test code = AST) 24 See_Comment [Auto mated message] The system which ge nerated this result transmit suze reference range : <=37. The reference range was not used to interpr et this result as anselmo l/abnormal. [facility]2022-12-10 11:20:00 Test Item Value Reference Range Interpretation Comments Alk Phos (test code = Alk Phos) 88 39-136 [place] 826522-12-10 11:20:00 Test Item Value Reference Range Interpretation Comments Bili Total (test code = Bili Total) 0.1 0.2-1.3 [place] [address]-12-10 11:20:00 Test Item Value Reference Range Interpretation Comments AGAP (test code = AGAP) 11.8 10.0-20.0 [place] 826522-12-10 11:20:00 Test Item Value Reference Range Interpretation Comments B/C Ratio (test code = B/C Ratio) 15 1 6-25 [place] [address]-12-10 11:20:00 Test Item Value Reference Range Interpretation Comments Globulin (test code = Globulin) 2.8 2.7-4.2 [place] 826522-12-10 11:20:00 Test Item Value Reference Range Interpretation Comments A/G Ratio (test code = A/G Ratio) 1.0 1 0.7-1.6 [place] [address]-12-10 11:20:00 Test Item Value Reference Range Interpretation Comments eGFR (test code = eGFR) 118 [place] 848172-12-10 11:20:00 Test Item Value Reference Range Interpretation Comments Segs (test code = Segs) 47.6 45.0-75.0 [place] [address]-12-10 11:20:00 Test Item Value Reference Range Interpretation Comments Lymphocytes (test code = Lymphocytes) 39.9 20.0-40.0 [place] [address]-12-10 11:20:00 Test Item Value Reference Range Interpretation Comments Monocytes (test code = Monocytes) 6.5 2.0-12.0 [place] [address]-12-10 11:20:00 Test Item Value Reference Range Interpretation Comments Eosinophils (test code = 5.1 See_Comment [A utomated message] The Eosinophils) system which ge nerated this result tra nsmitted reference range : <=4.0. The reference r peri was not used to int erpret this result as normal/abnormal . [place] 848172-12-10 11:20:00 Test Item Value Reference Range Interpretation Comments Basophils (test code = 0.9 See_Comment [Aut omated message] The Basophils) system which ge nerated this result tra nsmitted reference range : <=1.0. The reference r peri was not used to int erpret this result as normal/abnormal . [place] [address]-12-10 11:20:00 Test Item Value Reference Range Interpretation Comments Neutrophils # (test code = Neutrophils 3.3 1.5-8.1 #) [place] [address]-12-10 11:20:00 Test Item Value Reference Range Interpretation Comments Lymphocytes # (test code = Lymphocytes 2.8 1.0-5.5 #) [place] [address]-12-10 11:20:00 Test Item Value Reference Range Interpretation Comments Monocytes # (test code 0.5 See_Comment [Aut omated message] The = Monocytes #) system which generated this result tra nsmitted reference range : <=0.8. The reference r peri was not used to int erpret this result as normal/abnormal . [place] [address]-12-10 11:20:00 Test Item Value Reference Range Interpretation Comments Eosinophils # (test code 0.4 See_Comment [A utomated message] The = Eosinophils #) system [facility] h generated this result tra nsmitted reference range : <=0.5. The reference r peri was not used to int erpret this result as normal/abnormal . [place] 848172-12-10 11:20:00 Test Item Value Reference Range Interpretation Comments Basophils # (test code 0.1 See_Comment [Aut omated message] The = Basophils #) system which generated this result tra nsmitted reference range : <=0.2. The reference r peri was not used to int erpret this result as normal/abnormal . [place] [address]-12-10 11:20:00 Test Item Value Reference Range Interpretation Comments WBC (test code = WBC) 6.9 3.7-10.4 [place] [address]-12-10 11:20:00 Test Item Value Reference Range Interpretation Comments RBC (test code = RBC) 4.38 4.70-6.10 [facility]60[facility] 11:20:00 Test Item Value Reference Range Interpretation Comments Hgb (test code = Hgb) 13.3 14.0-18.0 [facility]LkehlfiYFLFQTXDLC4277-19-31 11:20:00 Test Item Value Reference Range Interpretation Comments Hct (test code = Hct) 39.8 42.0-54.0 [facility]SdqkrxnOWZOKMPXCE1633-94-98 11:20:00 Test Item Value Reference Range Interpretation Comments MCV (test code = MCV) 90.7 80.0-94.0 [facility]MzdqhvyWSXEDMVOCH9472-29-98 11:20:00 Test Item Value Reference Range Interpretation Comments MCH (test code = MCH) 30.4 pg 27.0-31.0 [facility] HospitalBxywgydLPHPDWKQSH1708-41-31 11:20:00 Test Item Value Reference Range Interpretation Comments MCHC (test code = MCHC) 33.6 32.0-36.0 [facility] HospitalSvkgsjlKANJQJINRV8901-81-73 11:20:00 Test Item Value Reference Range Interpretation Comments RDW (test code = RDW) 12.7 11.5-14.5 [facility] HospitalEerlsezSEHOLMOCTX7387-06-16 11:20:00 Test Item Value Reference Range Interpretation Comments Platelet (test code = Platelet) 188 133-450 [facility] HospitalTpnicprICHUQVWBSZ3998-54-76 11:20:00 Test Item Value Reference Range Interpretation Comments MPV (test code = MPV) 9.9 7.4-10.4 [facility] IEIWPDE3840-85-40 11:20:00 Test Item Value Reference Range Interpretation Comments Total CK (test code = Total CK) 142 12-191 [facility]2022-12-10 11:20:00 Test Item Value Reference Range Interpretation Comments Glucose Lvl (test code = Glucose Lvl) 130 70-99 [facility]2022-12-10 11:20:00 Test Item Value Reference Range Interpretation Comments BUN (test code = BUN) 10 7-22 [facility]2022-12-10 11:20:00 Test Item Value Reference Range Interpretation Comments Creatinine Lvl (test code = Creatinine 0.67 0.50-1.40 Lvl) [place] [address]-12-10 11:20:00 Test Item Value Reference Range Interpretation Comments Sodium Lvl (test code = Sodium Lvl) 143 135-145 [place] [address]-12-10 11:20:00 Test Item Value Reference Range Interpretation Comments Potassium Lvl (test code = Potassium 3.8 3.5-5.1 Lvl) [address]12-10 11:20:00 Test Item Value Reference Range Interpretation Comments Chloride Lvl (test code = Chloride Lvl) 112 95-109 [place] [address]-12-10 11:20:00 Test Item Value Reference Range Interpretation Comments CO2 (test code = CO2) 23 24-32 [address]12-10 11:20:00 Test Item Value Reference Range Interpretation Comments Calcium Lvl (test code = Calcium Lvl) 8.3 8.5-10.5 [place] [address]-12-10 11:20:00 Test Item Value Reference Range Interpretation Comments Total Protein (test code = Total 5.6 6.4-8.4 Protein) [address]12-10 11:20:00 Test Item Value Reference Range Interpretation Comments Albumin Lvl (test code = Albumin Lvl) 2.8 3.5-5.0 [place] [address]-12-10 11:20:00 Test Item Value Reference Range Interpretation Comments ALT (test code = ALT) 36 See_Comment [Auto mated message] The system which ge nerated this result transmit suze reference range : <=65. The reference range was not used to interpr et this result as anselmo l/abnormal. [place] [address]-12-10 11:20:00 Test Item Value Reference Range Interpretation Comments AST (test code = AST) 24 See_Comment [Auto mated message] The system which ge nerated this result transmit suze reference range : <=37. The reference range was not used to interpr et this result as anselmo l/abnormal. [address]12-10 11:20:00 Test Item Value Reference Range Interpretation Comments Alk Phos (test code = Alk Phos) 88 39-136 [place] [address]-12-10 11:20:00 Test Item Value Reference Range Interpretation Comments Bili Total (test code = Bili Total) 0.1 0.2-1.3 [address]12-10 11:20:00 Test Item Value Reference Range Interpretation Comments AGAP (test code = AGAP) 11.8 10.0-20.0 [address]12-10 11:20:00 Test Item Value Reference Range Interpretation Comments B/C Ratio (test code = B/C Ratio) 15 1 6-25 [address]12-10 11:20:00 Test Item Value Reference Range Interpretation Comments Globulin (test code = Globulin) 2.8 2.7-4.[address]12-10 11:20:00 Test Item Value Reference Range Interpretation Comments A/G Ratio (test code = A/G Ratio) 1.0 1 0.7-1.6 [address]12-10 11:20:00 Test Item Value Reference Range Interpretation Comments eGFR (test code = eGFR) 118 [place] [address]-12-10 11:20:00 Test Item Value Reference Range Interpretation Comments Segs (test code = Segs) 47.6 45.0-75.0 [address] [place] [address]12-10 11:20:00 Test Item Value Reference Range Interpretation Comments Lymphocytes (test code = Lymphocytes) 39.9 20.0-40.0 [address] [place] [address]12-10 11:20:00 Test Item Value Reference Range Interpretation Comments Monocytes (test code = Monocytes) 6.5 2.0-12.0 [address] [place] [address]12-10 11:20:00 Test Item Value Reference Range Interpretation Comments Eosinophils (test code = 5.1 See_Comment [A utomated message] The Eosinophils) system which ge nerated this result tra nsmitted reference range : <=4.0. The reference r peri was not used to int erpret this result as normal/abnormal . [address] [place] [address]12-10 11:20:00 Test Item Value Reference Range Interpretation Comments Basophils (test code = 0.9 See_Comment [Aut omated message] The Basophils) system which ge nerated this result tra nsmitted reference range : <=1.0. The reference r peri was not used to int erpret this result as normal/abnormal . [facility] HospitalUikxibsNQKLDDEVNP0531-71-21 11:20:00 Test Item Value Reference Range Interpretation Comments Neutrophils # (test code = Neutrophils 3.3 1.5-8.1 #) [facility] HospitalPqrciyjDNYNBDUKNP6674-98-49 11:20:00 Test Item Value Reference Range Interpretation Comments Lymphocytes # (test code = Lymphocytes 2.8 1.0-5.5 #) [facility] HospitalZmaecykRCBENXAOZU0514-97-81 11:20:00 Test Item Value Reference Range Interpretation Comments Monocytes # (test code 0.5 See_Comment [Aut omated message] The = Monocytes #) system which generated this result tra nsmitted reference range : <=0.8. The reference r peri was not used to int erpret this result as normal/abnormal . [facility] HospitalXsnxeojALVKQFSYFY6483-74-28 11:20:00 Test Item Value Reference Range Interpretation Comments Eosinophils # (test code 0.4 See_Comment [A utomated message] The = Eosinophils #) system whic h generated this result tra nsmitted reference range : <=0.5. The reference r peri was not used to int erpret this result as normal/abnormal . [facility] HospitalKyxkhepCWDAPOAOXK7710-13-57 11:20:00 Test Item Value Reference Range Interpretation Comments Basophils # (test code 0.1 See_Comment [Aut omated message] The = Basophils #) system which generated this result tra nsmitted reference range : <=0.2. The reference r peri was not used to int erpret this result as normal/abnormal . [facility] HospitalCgiwjkkLDKPLNFZYL2298-49-57 11:20:00 Test Item Value Reference Range Interpretation Comments WBC (test code = WBC) 6.9 3.7-10.4 [facility] HospitalZkotbvgGTZUOJBYQR8732-31-44 11:20:00 Test Item Value Reference Range Interpretation Comments RBC (test code = RBC) 4.38 4.70-6.10 [place] 848172-12-10 11:20:00 Test Item Value Reference Range Interpretation Comments Hgb (test code = Hgb) 13.3 14.0-18.0 [place] 848172-12-10 11:20:00 Test Item Value Reference Range Interpretation Comments Hct (test code = Hct) 39.8 42.0-54.0 [facility] HospitalGnypxfzWKYSNMGMQK9223-09-94 11:20:00 Test Item Value Reference Range Interpretation Comments MCV (test code = MCV) 90.7 80.0-94.0 [facility]KkvvvtgCDQLVCFPMJ6772-02-77 11:20:00 Test Item Value Reference Range Interpretation Comments MCH (test code = MCH) 30.4 pg 27.0-31.0 [facility] HospitalHyclbwtVIEUSJHFVD5405-05-47 11:20:00 Test Item Value Reference Range Interpretation Comments MCHC (test code = MCHC) 33.6 32.0-36.0 [place] 848172-12-10 11:20:00 Test Item Value Reference Range Interpretation Comments RDW (test code = RDW) 12.7 11.5-14.5 [facility] HospitalRdkysyjSHBKLQYEIG7687-19-40 11:20:00 Test Item Value Reference Range Interpretation Comments Platelet (test code = Platelet) 188 133-450 [facility] HospitalZhahnmuKZYHAUBVBR6955-32-36 11:20:00 Test Item Value Reference Range Interpretation Comments MPV (test code = MPV) 9.9 7.4-10.4 [facility] CJAZMHC8698-77-19 11:20:00 Test Item Value Reference Range Interpretation Comments Total CK (test code = Total CK) 142 12-191 [facility]2022-12-10 11:20:00 Test Item Value Reference Range Interpretation Comments Glucose Lvl (test code = Glucose Lvl) 130 70-99 [facility]2022-12-10 11:20:00 Test Item Value Reference Range Interpretation Comments BUN (test code = BUN) 10 7-22 [facility]2022-12-10 11:20:00 Test Item Value Reference Range Interpretation Comments Creatinine Lvl (test code = Creatinine 0.67 0.50-1.40 Lvl) [facility]2022-12-10 11:20:00 Test Item Value Reference Range Interpretation Comments Sodium Lvl (test code = Sodium Lvl) 143 135-145 [facility]2022-12-10 11:20:00 Test Item Value Reference Range Interpretation Comments Potassium Lvl (test code = Potassium 3.8 3.5-5.1 Lvl) [facility]2022-12-10 11:20:00 Test Item Value Reference Range Interpretation Comments Chloride Lvl (test code = Chloride Lvl) 112 95-109 [facility] OnlineDAV[facility] [address]ZYPWP3790-56-93 11:20:00 Test Item Value Reference Range Interpretation Comments CO2 (test code = CO2) 23 24-32 [facility] CenterW[facility] OnlineDAVID [place] [address]ZGSUE7641-19-05 11:20:00 Test Item Value Reference Range Interpretation Comments Calcium Lvl (test code = Calcium Lvl) 8.3 8.5-10.5 [facility] CenterW[facility] OnlineDAVID [place] [address]OIOUN6218-39-23 11:20:00 Test Item Value Reference Range Interpretation Comments Total Protein (test code = Total 5.6 6.4-8.4 Protein) [facility] CenterW[facility] OnlineDAVID [facility] [address]SDWGU7978-02-54 11:20:00 Test Item Value Reference Range Interpretation Comments Albumin Lvl (test code = Albumin Lvl) 2.8 3.5-5.0 [facility]San[facility] [id number] 11:20:00 Test Item Value Reference Range Interpretation Comments ALT (test code = ALT) 36 See_Comment [Auto mated message] The system which ge nerated this result transmit suze reference range : <=65. The reference range was not used to interpr et this result as anselmo l/abnormal. [facility] NNVNH8316-70-50 11:20:00 Test Item Value Reference Range Interpretation Comments AST (test code = AST) 24 See_Comment [Auto mated message] The system which ge nerated this result transmit suze reference range : <=37. The reference range was not used to interpr et this result as anselmo l/abnormal. [facility] [id number] 11:20:00 Test Item Value Reference Range Interpretation Comments Alk Phos (test code = Alk Phos) 88 39-136 [facility] [id number] 11:20:00 Test Item Value Reference Range Interpretation Comments Bili Total (test code = Bili Total) 0.1 0.2-1.3 [facility] CenterDailym[facility] YEWBV0843-91-12 11:20:00 Test Item Value Reference Range Interpretation Comments AGAP (test code = AGAP) 11.8 10.0-20.0 [facility] [id number] 11:20:00 Test Item Value Reference Range Interpretation Comments B/C Ratio (test code = B/C Ratio) 15 1 6-25 [facility] [place] [address]-12-10 11:20:00 Test Item Value Reference Range Interpretation Comments Globulin (test code = Globulin) 2.8 2.7-4.[address]12-10 11:20:00 Test Item Value Reference Range Interpretation Comments A/G Ratio (test code = A/G Ratio) 1.0 1 0.7-1.6 [address]12-10 11:20:00 Test Item Value Reference Range Interpretation Comments eGFR (test code = eGFR) 118 [place] [address]-12-10 11:20:00 Test Item Value Reference Range Interpretation Comments Segs (test code = Segs) 47.6 45.0-75.0 [place] [address]-12-10 11:20:00 Test Item Value Reference Range Interpretation Comments Lymphocytes (test code = Lymphocytes) 39.9 20.0-40.0 [address]12-10 11:20:00 Test Item Value Reference Range Interpretation Comments Monocytes (test code = Monocytes) 6.5 2.0-12.0 [place] [address]-12-10 11:20:00 Test Item Value Reference Range Interpretation Comments Eosinophils (test code = 5.1 See_Comment [A utomated message] The Eosinophils) system which ge nerated this result tra nsmitted reference range : <=4.0. The reference r peri was not used to int erpret this result as normal/abnormal . [address]12-10 11:20:00 Test Item Value Reference Range Interpretation Comments Basophils (test code = 0.9 See_Comment [Aut omated message] The Basophils) system which ge nerated this result tra nsmitted reference range : <=1.0. The reference r peri was not used to int erpret this result as normal/abnormal . [place] [address]-12-10 11:20:00 Test Item Value Reference Range Interpretation Comments Neutrophils # (test code = Neutrophils 3.3 1.5-8.1 #) [address] [place] [address]12-10 11:20:00 Test Item Value Reference Range Interpretation Comments Lymphocytes # (test code = Lymphocytes 2.8 1.0-5.5 #) [address]12-10 11:20:00 Test Item Value Reference Range Interpretation Comments Monocytes # (test code 0.5 See_Comment [Aut omated message] The = Monocytes #) system which generated this result tra nsmitted reference range : <=0.8. The reference r peri was not used to int erpret this result as normal/abnormal . [facility] HospitalEsjpbyjRUXFWNHBNP0334-38-22 11:20:00 Test Item Value Reference Range Interpretation Comments Eosinophils # (test code 0.4 See_Comment [A utomated message] The = Eosinophils #) system whic h generated this result tra nsmitted reference range : <=0.5. The reference r peri was not used to int erpret this result as normal/abnormal . [facility] HospitalZjeepwpZDHWMXVNXM6786-39-42 11:20:00 Test Item Value Reference Range Interpretation Comments Basophils # (test code 0.1 See_Comment [Aut omated message] The = Basophils #) system which generated this result tra nsmitted reference range : <=0.2. The reference r peri was not used to int erpret this result as normal/abnormal . [facility] HospitalQlwvwenSINXXQSMQB2315-65-65 11:20:00 Test Item Value Reference Range Interpretation Comments WBC (test code = WBC) 6.9 3.7-10.4 [place] 848172-12-10 11:20:00 Test Item Value Reference Range Interpretation Comments RBC (test code = RBC) 4.38 4.70-6.10 [place] 848172-12-10 11:20:00 Test Item Value Reference Range Interpretation Comments Hgb (test code = Hgb) 13.3 14.0-18.0 [place] 848172-12-10 11:20:00 Test Item Value Reference Range Interpretation Comments Hct (test code = Hct) 39.8 42.0-54.0 [place] [address]-12-10 11:20:00 Test Item Value Reference Range Interpretation Comments MCV (test code = MCV) 90.7 80.0-94.0 [place] 848172-12-10 11:20:00 Test Item Value Reference Range Interpretation Comments MCH (test code = MCH) 30.4 pg 27.0-31.0 [place] 848172-12-10 11:20:00 Test Item Value Reference Range Interpretation Comments MCHC (test code = MCHC) 33.6 32.0-36.0 [facility] HospitalZpsbybkQPGBDEZSRZ1291-11-36 11:20:00 Test Item Value Reference Range Interpretation Comments RDW (test code = RDW) 12.7 11.5-14.5 [facility]PbmjbpqEYSKGSBJHF1628-27-46 11:20:00 Test Item Value Reference Range Interpretation Comments Platelet (test code = Platelet) 188 133-450 [facility] HospitalVcolyghOEYCZCSXCO2648-59-16 11:20:00 Test Item Value Reference Range Interpretation Comments MPV (test code = MPV) 9.9 7.4-10.4 [facility] KTQSLAS7491-43-50 11:16:00 Test Item Value Reference Range Interpretation Comments Total CK (test code = Total CK) 369 12-191 [facility]2022-12-09 11:16:00 Test Item Value Reference Range Interpretation Comments Calcium Lvl (test code = Calcium Lvl) 8.9 8.5-10.5 [facility]2022-12-09 11:16:00 Test Item Value Reference Range Interpretation Comments Glucose Lvl (test code = Glucose Lvl) 101 70-99 [facility]2022-12-09 11:16:00 Test Item Value Reference Range Interpretation Comments BUN (test code = BUN) 12 7-22 [facility]2022-12-09 11:16:00 Test Item Value Reference Range Interpretation Comments Creatinine Lvl (test code = Creatinine 0.65 0.50-1.40 Lvl) [facility]2022-12-09 11:16:00 Test Item Value Reference Range Interpretation Comments Sodium Lvl (test code = Sodium Lvl) 142 135-145 [facility]2022-12-09 11:16:00 Test Item Value Reference Range Interpretation Comments Potassium Lvl (test code = Potassium 4.0 3.5-5.1 Lvl) [facility]2022-12-09 11:16:00 Test Item Value Reference Range Interpretation Comments Chloride Lvl (test code = Chloride Lvl) 111 95-109 [facility]2022-12-09 11:16:00 Test Item Value Reference Range Interpretation Comments CO2 (test code = CO2) 23 24-32 [facility]2022-12-09 11:16:00 Test Item Value Reference Range Interpretation Comments AGAP (test code = AGAP) 12.0 10.0-20.0 [place] 826522-12-09 11:16:00 Test Item Value Reference Range Interpretation Comments B/C Ratio (test code = B/C Ratio) 18 1 6-25 [place] [address]-12-09 11:16:00 Test Item Value Reference Range Interpretation Comments Total Protein (test code = Total 5.8 6.4-8.4 Protein) [place] [address]-12-09 11:16:00 Test Item Value Reference Range Interpretation Comments Albumin Lvl (test code = Albumin Lvl) 3.1 3.5-5.0 [place] [address]-12-09 11:16:00 Test Item Value Reference Range Interpretation Comments Globulin (test code = Globulin) 2.7 2.7-4.2 [place] [address]-12-09 11:16:00 Test Item Value Reference Range Interpretation Comments A/G Ratio (test code = A/G Ratio) 1.1 1 0.7-1.6 [place] [address]-12-09 11:16:00 Test Item Value Reference Range Interpretation Comments ALT (test code = ALT) 37 See_Comment [Auto mated message] The system which ge nerated this result transmit suze reference range : <=65. The reference range was not used to interpr et this result as anselmo l/abnormal. [place] [address]-12-09 11:16:00 Test Item Value Reference Range Interpretation Comments AST (test code = AST) 45 See_Comment [Auto mated message] The system which ge nerated this result transmit suze reference range : <=37. The reference range was not used to interpr et this result as anselmo l/abnormal. [place] 826522-12-09 11:16:00 Test Item Value Reference Range Interpretation Comments Alk Phos (test code = Alk Phos) 70 39-136 [place] [address]-12-09 11:16:00 Test Item Value Reference Range Interpretation Comments Bili Total (test code = Bili Total) 0.2 0.2-1.3 [place] [address]-12-09 11:16:00 Test Item Value Reference Range Interpretation Comments eGFR (test code = eGFR) 119 [facility] HospitalRskhnpcHFYBRULUOR8368-25-32 11:16:00 Test Item Value Reference Range Interpretation Comments WBC (test code = WBC) 6.9 3.7-10.4 [place] 848172-12-09 11:16:00 Test Item Value Reference Range Interpretation Comments RBC (test code = RBC) 4.20 4.70-6.10 [place] 848172-12-09 11:16:00 Test Item Value Reference Range Interpretation Comments Hgb (test code = Hgb) 12.9 14.0-18.0 [place] [address]-12-09 11:16:00 Test Item Value Reference Range Interpretation Comments Hct (test code = Hct) 38.4 42.0-54.0 [place] 848172-12-09 11:16:00 Test Item Value Reference Range Interpretation Comments MCV (test code = MCV) 91.4 80.0-94.0 [place] 848172-12-09 11:16:00 Test Item Value Reference Range Interpretation Comments MCH (test code = MCH) 30.6 pg 27.0-31.0 [place] 848172-12-09 11:16:00 Test Item Value Reference Range Interpretation Comments MCHC (test code = MCHC) 33.5 32.0-36.0 [place] 848172-12-09 11:16:00 Test Item Value Reference Range Interpretation Comments RDW (test code = RDW) 12.7 11.5-14.5 [facility]QwlqknzBEXAWJRLON8431-56-86 11:16:00 Test Item Value Reference Range Interpretation Comments Platelet (test code = Platelet) 180 133-450 [facility] HospitalHqgrrkdXWZRHYHAHP0459-01-51 11:16:00 Test Item Value Reference Range Interpretation Comments MPV (test code = MPV) 9.3 7.4-10.4 [place] [address]-12-09 11:16:00 Test Item Value Reference Range Interpretation Comments Segs (test code = Segs) 51.6 45.0-75.0 [place] [address]-12-09 11:16:00 Test Item Value Reference Range Interpretation Comments Lymphocytes (test code = Lymphocytes) 37.1 20.0-40.0 [place] 848172-12-09 11:16:00 Test Item Value Reference Range Interpretation Comments Monocytes (test code = Monocytes) 7.3 2.0-12.0 [facility]XJZWBSNP1229[facility]51-93 11:16:00 Test Item Value Reference Range Interpretation Comments Eosinophils (test code = 3.4 See_Comment [A utomated message] The Eosinophils) system which ge nerated this result tra nsmitted reference range : <=4.0. The reference r peri was not used to int erpret this result as normal/abnormal . [facility]KoqzipeRVNXEUGJKY9868-05-78 11:16:00 Test Item Value Reference Range Interpretation Comments Basophils (test code = 0.6 See_Comment [Aut omated message] The Basophils) system which ge nerated this result tra nsmitted reference range : <=1.0. The reference r peri was not used to int erpret this result as normal/abnormal . [facility] HospitalFhpkmbhMFQTYQICPK0690-60-89 11:16:00 Test Item Value Reference Range Interpretation Comments Neutrophils # (test code = Neutrophils 3.5 1.5-8.1 #) [facility] HospitalPvebxkiWUILXQZVEG3635-37-49 11:16:00 Test Item Value Reference Range Interpretation Comments Lymphocytes # (test code = Lymphocytes 2.5 1.0-5.5 #) [facility]PuswzrpKAQFFETIZT1949-21-05 11:16:00 Test Item Value Reference Range Interpretation Comments Monocytes # (test code 0.5 See_Comment [Aut omated message] The = Monocytes #) system which generated this result tra nsmitted reference range : <=0.8. The reference r peri was not used to int erpret this result as normal/abnormal . [facility] HospitalBfctxfnURSXBSMAJT8428-54-45 11:16:00 Test Item Value Reference Range Interpretation Comments Eosinophils # (test code 0.2 See_Comment [A utomated message] The = Eosinophils #) system whic h generated this result tra nsmitted reference range : <=0.5. The reference r peri was not used to int erpret this result as normal/abnormal . [facility] [id number] 11:16:00 Test Item Value Reference Range Interpretation Comments Total CK (test code = Total CK) 369 12-191 [facility]CHE[facility] [id number] 11:16:00 Test Item Value Reference Range Interpretation Comments Calcium Lvl (test code = Calcium Lvl) 8.9 8.5-10.5 [place] 826522-12-09 11:16:00 Test Item Value Reference Range Interpretation Comments Glucose Lvl (test code = Glucose Lvl) 101 70-99 [place] 826522-12-09 11:16:00 Test Item Value Reference Range Interpretation Comments BUN (test code = BUN) 12 7-22 [facility]2022-12-09 11:16:00 Test Item Value Reference Range Interpretation Comments Creatinine Lvl (test code = Creatinine 0.65 0.50-1.40 Lvl) [facility]2022-12-09 11:16:00 Test Item Value Reference Range Interpretation Comments Sodium Lvl (test code = Sodium Lvl) 142 135-145 [facility]2022-12-09 11:16:00 Test Item Value Reference Range Interpretation Comments Potassium Lvl (test code = Potassium 4.0 3.5-5.1 Lvl) [facility]2022-12-09 11:16:00 Test Item Value Reference Range Interpretation Comments Chloride Lvl (test code = Chloride Lvl) 111 95-109 [facility]2022-12-09 11:16:00 Test Item Value Reference Range Interpretation Comments CO2 (test code = CO2) 23 24-32 [place] 826522-12-09 11:16:00 Test Item Value Reference Range Interpretation Comments AGAP (test code = AGAP) 12.0 10.0-20.0 [place] 826522-12-09 11:16:00 Test Item Value Reference Range Interpretation Comments B/C Ratio (test code = B/C Ratio) 18 1 6-25 [place] 826522-12-09 11:16:00 Test Item Value Reference Range Interpretation Comments Total Protein (test code = Total 5.8 6.4-8.4 Protein) [facility]2022-12-09 11:16:00 Test Item Value Reference Range Interpretation Comments Albumin Lvl (test code = Albumin Lvl) 3.1 3.5-5.0 [place] 826522-12-09 11:16:00 Test Item Value Reference Range Interpretation Comments Globulin (test code = Globulin) 2.7 2.7-4.2 [place] [address]-12-09 11:16:00 Test Item Value Reference Range Interpretation Comments A/G Ratio (test code = A/G Ratio) 1.1 1 0.7-1.6 [place] [address]-12-09 11:16:00 Test Item Value Reference Range Interpretation Comments ALT (test code = ALT) 37 See_Comment [Auto mated message] The system which ge nerated this result transmit suze reference range : <=65. The reference range was not used to interpr et this result as anselmo l/abnormal. [place] [address]-12-09 11:16:00 Test Item Value Reference Range Interpretation Comments AST (test code = AST) 45 See_Comment [Auto mated message] The system which ge nerated this result transmit suze reference range : <=37. The reference range was not used to interpr et this result as anselmo l/abnormal. [place] [address]-12-09 11:16:00 Test Item Value Reference Range Interpretation Comments Alk Phos (test code = Alk Phos) 70 39-136 [place] 826522-12-09 11:16:00 Test Item Value Reference Range Interpretation Comments Bili Total (test code = Bili Total) 0.2 0.2-1.3 [place] [address]-12-09 11:16:00 Test Item Value Reference Range Interpretation Comments eGFR (test code = eGFR) 119 [place] [address]-12-09 11:16:00 Test Item Value Reference Range Interpretation Comments WBC (test code = WBC) 6.9 3.7-10.4 [place] [address]-12-09 11:16:00 Test Item Value Reference Range Interpretation Comments RBC (test code = RBC) 4.20 4.70-6.10 [place] [address]-12-09 11:16:00 Test Item Value Reference Range Interpretation Comments Hgb (test code = Hgb) 12.9 14.0-18.0 [place] [address]-12-09 11:16:00 Test Item Value Reference Range Interpretation Comments Hct (test code = Hct) 38.4 42.0-54.0 [place] [address]-12-09 11:16:00 Test Item Value Reference Range Interpretation Comments MCV (test code = MCV) 91.4 80.0-94.0 [facility] HospitalSueymylZGGDZANDBG1687-65-97 11:16:00 Test Item Value Reference Range Interpretation Comments MCH (test code = MCH) 30.6 pg 27.0-31.0 [facility] HospitalGfzoccpUXBEQYTAIW1155-65-81 11:16:00 Test Item Value Reference Range Interpretation Comments MCHC (test code = MCHC) 33.5 32.0-36.0 [facility] HospitalIgklzckQECJGAAPAP1686-98-94 11:16:00 Test Item Value Reference Range Interpretation Comments RDW (test code = RDW) 12.7 11.5-14.5 [place] 848172-12-09 11:16:00 Test Item Value Reference Range Interpretation Comments Platelet (test code = Platelet) 180 133-450 [facility] HospitalZgrkwrhRXMKYDTBNB5578-48-50 11:16:00 Test Item Value Reference Range Interpretation Comments MPV (test code = MPV) 9.3 7.4-10.4 [facility] HospitalDutaeccDTUOFJNPDW7628-53-11 11:16:00 Test Item Value Reference Range Interpretation Comments Segs (test code = Segs) 51.6 45.0-75.0 [facility] HospitalJfkirnmGUZFDKMZFT3797-58-15 11:16:00 Test Item Value Reference Range Interpretation Comments Lymphocytes (test code = Lymphocytes) 37.1 20.0-40.0 [place] 848172-12-09 11:16:00 Test Item Value Reference Range Interpretation Comments Monocytes (test code = Monocytes) 7.3 2.0-12.0 [place] 848172-12-09 11:16:00 Test Item Value Reference Range Interpretation Comments Eosinophils (test code = 3.4 See_Comment [A utomated message] The Eosinophils) system which ge nerated this result tra nsmitted reference range : <=4.0. The reference r peri was not used to int erpret this result as normal/abnormal . [place] 848172-12-09 11:16:00 Test Item Value Reference Range Interpretation Comments Basophils (test code = 0.6 See_Comment [Aut omated message] The Basophils) system which ge nerated this result tra nsmitted reference range : <=1.0. The reference r peri was not used to int erpret this result as normal/abnormal . [place] [address]-12-09 11:16:00 Test Item Value Reference Range Interpretation Comments Neutrophils # (test code = Neutrophils 3.5 1.5-8.1 #) [facility] HospitalEkntnjzQEJFQJPHMV7164-86-14 11:16:00 Test Item Value Reference Range Interpretation Comments Lymphocytes # (test code = Lymphocytes 2.5 1.0-5.5 #) [facility] HospitalKehtzfaUOCNMXLZIP4456-14-02 11:16:00 Test Item Value Reference Range Interpretation Comments Monocytes # (test code 0.5 See_Comment [Aut omated message] The = Monocytes #) system which generated this result tra nsmitted reference range : <=0.8. The reference r peri was not used to int erpret this result as normal/abnormal . [place] 848172-12-09 11:16:00 Test Item Value Reference Range Interpretation Comments Eosinophils # (test code 0.2 See_Comment [A utomated message] The = Eosinophils #) system whic h generated this result tra nsmitted reference range : <=0.5. The reference r peri was not used to int erpret this result as normal/abnormal . [facility]CARDI ERZONET3440-11-13 11:16:00 Test Item Value Reference Range Interpretation Comments Total CK (test code = Total CK) 369 12-191 [facility]2022-12-09 11:16:00 Test Item Value Reference Range Interpretation Comments Calcium Lvl (test code = Calcium Lvl) 8.9 8.5-10.5 [facility]2022-12-09 11:16:00 Test Item Value Reference Range Interpretation Comments Glucose Lvl (test code = Glucose Lvl) 101 70-99 [facility]2022-12-09 11:16:00 Test Item Value Reference Range Interpretation Comments BUN (test code = BUN) 12 7-22 [facility]2022-12-09 11:16:00 Test Item Value Reference Range Interpretation Comments Creatinine Lvl (test code = Creatinine 0.65 0.50-1.40 Lvl) [facility]2022-12-09 11:16:00 Test Item Value Reference Range Interpretation Comments Sodium Lvl (test code = Sodium Lvl) 142 135-145 [facility] [id number] 11:16:00 Test Item Value Reference Range Interpretation Comments Potassium Lvl (test code = Potassium 4.0 3.5-5.1 Lvl) [address]12-09 11:16:00 Test Item Value Reference Range Interpretation Comments Chloride Lvl (test code = Chloride Lvl) 111 95-109 [place] [address]-12-09 11:16:00 Test Item Value Reference Range Interpretation Comments CO2 (test code = CO2) 23 24-32 [place] [address]-12-09 11:16:00 Test Item Value Reference Range Interpretation Comments AGAP (test code = AGAP) 12.0 10.0-20.0 [address]12-09 11:16:00 Test Item Value Reference Range Interpretation Comments B/C Ratio (test code = B/C Ratio) 18 1 6-[address]12-09 11:16:00 Test Item Value Reference Range Interpretation Comments Total Protein (test code = Total 5.8 6.4-8.4 Protein) [address]12-09 11:16:00 Test Item Value Reference Range Interpretation Comments Albumin Lvl (test code = Albumin Lvl) 3.1 3.5-5.[address]12-09 11:16:00 Test Item Value Reference Range Interpretation Comments Globulin (test code = Globulin) 2.7 2.7-4.[address]12-09 11:16:00 Test Item Value Reference Range Interpretation Comments A/G Ratio (test code = A/G Ratio) 1.1 1 0.7-1.[address]12-09 11:16:00 Test Item Value Reference Range Interpretation Comments ALT (test code = ALT) 37 See_Comment [Auto mated message] The system which ge nerated this result transmit suze reference range : <=65. The reference range was not used to interpr et this result as anselmo l/abnormal. [place] [address]-12-09 11:16:00 Test Item Value Reference Range Interpretation Comments AST (test code = AST) 45 See_Comment [Auto mated message] The system which ge nerated this result transmit suze reference range : <=37. The reference range was not used to interpr et this result as anselmo l/abnormal. [facility]2022-12-09 11:16:00 Test Item Value Reference Range Interpretation Comments Alk Phos (test code = Alk Phos) 70 39-136 [facility]2022-12-09 11:16:00 Test Item Value Reference Range Interpretation Comments Bili Total (test code = Bili Total) 0.2 0.2-1.3 [facility]2022-12-09 11:16:00 Test Item Value Reference Range Interpretation Comments eGFR (test code = eGFR) 119 [facility] HospitalUrdlxtzYWWUUAAUBQ0389-97-05 11:16:00 Test Item Value Reference Range Interpretation Comments WBC (test code = WBC) 6.9 3.7-10.4 [facility] HospitalIxxhzshWJLCTYREBW1481-72-44 11:16:00 Test Item Value Reference Range Interpretation Comments RBC (test code = RBC) 4.20 4.70-6.10 [facility] HospitalTpgjzluDBLLJJZPWL9039-82-13 11:16:00 Test Item Value Reference Range Interpretation Comments Hgb (test code = Hgb) 12.9 14.0-18.0 [facility] HospitalQjvlxqdWWFDZEVMEU5923-30-99 11:16:00 Test Item Value Reference Range Interpretation Comments Hct (test code = Hct) 38.4 42.0-54.0 [facility] HospitalIfbxpozROEGREVASS2957-84-96 11:16:00 Test Item Value Reference Range Interpretation Comments MCV (test code = MCV) 91.4 80.0-94.0 [facility] HospitalEpyacitTHTIREHHPF8117-89-58 11:16:00 Test Item Value Reference Range Interpretation Comments MCH (test code = MCH) 30.6 pg 27.0-31.0 [place] 848172-12-09 11:16:00 Test Item Value Reference Range Interpretation Comments MCHC (test code = MCHC) 33.5 32.0-36.0 [place] 848172-12-09 11:16:00 Test Item Value Reference Range Interpretation Comments RDW (test code = RDW) 12.7 11.5-14.5 [place] 848172-12-09 11:16:00 Test Item Value Reference Range Interpretation Comments Platelet (test code = Platelet) 180 133-450 [facility] HospitalFjxrdmhNWHTSADJOO1761-00-19 11:16:00 Test Item Value Reference Range Interpretation Comments MPV (test code = MPV) 9.3 7.4-10.4 [place] [address]-12-09 11:16:00 Test Item Value Reference Range Interpretation Comments Segs (test code = Segs) 51.6 45.0-75.0 [place] [address]-12-09 11:16:00 Test Item Value Reference Range Interpretation Comments Lymphocytes (test code = Lymphocytes) 37.1 20.0-40.0 [place] [address]-12-09 11:16:00 Test Item Value Reference Range Interpretation Comments Monocytes (test code = Monocytes) 7.3 2.0-12.0 [place] [address]-12-09 11:16:00 Test Item Value Reference Range Interpretation Comments Eosinophils (test code = 3.4 See_Comment [A utomated message] The Eosinophils) system which ge nerated this result tra nsmitted reference range : <=4.0. The reference r peri was not used to int erpret this result as normal/abnormal . [place] 848172-12-09 11:16:00 Test Item Value Reference Range Interpretation Comments Basophils (test code = 0.6 See_Comment [Aut omated message] The Basophils) system which ge nerated this result tra nsmitted reference range : <=1.0. The reference r peri was not used to int erpret this result as normal/abnormal . [place] [address]-12-09 11:16:00 Test Item Value Reference Range Interpretation Comments Neutrophils # (test code = Neutrophils 3.5 1.5-8.1 #) [place] [address]-12-09 11:16:00 Test Item Value Reference Range Interpretation Comments Lymphocytes # (test code = Lymphocytes 2.5 1.0-5.5 #) [place] [address]-12-09 11:16:00 Test Item Value Reference Range Interpretation Comments Monocytes # (test code 0.5 See_Comment [Aut omated message] The = Monocytes #) system which generated this result tra nsmitted reference range : <=0.8. The reference r peri was not used to int erpret this result as normal/abnormal . [place] [address]-12-09 11:16:00 Test Item Value Reference Range Interpretation Comments Eosinophils # (test code 0.2 See_Comment [A utomated message] The = Eosinophils #) system whic h generated this result tra nsmitted reference range : <=0.5. The reference r peri was not used to int erpret this result as normal/abnormal . [facility] [id number] 11:16:00 Test Item Value Reference Range Interpretation Comments Total CK (test code = Total CK) 369 12-191 [facility] [id number] 11:16:00 Test Item Value Reference Range Interpretation Comments Calcium Lvl (test code = Calcium Lvl) 8.9 8.5-10.5 [facility] [id number] 11:16:00 Test Item Value Reference Range Interpretation Comments Glucose Lvl (test code = Glucose Lvl) 101 70-99 [facility] [id number] 11:16:00 Test Item Value Reference Range Interpretation Comments BUN (test code = BUN) 12 7-22 [facility] [id number] 11:16:00 Test Item Value Reference Range Interpretation Comments Creatinine Lvl (test code = Creatinine 0.65 0.50-1.40 Lvl) [facility] [id number] 11:16:00 Test Item Value Reference Range Interpretation Comments Sodium Lvl (test code = Sodium Lvl) 142 135-145 [facility] ZIQLO2991-13-55 11:16:00 Test Item Value Reference Range Interpretation Comments Potassium Lvl (test code = Potassium 4.0 3.5-5.1 Lvl) [facility] [id number] 11:16:00 Test Item Value Reference Range Interpretation Comments Chloride Lvl (test code = Chloride Lvl) 111 95-109 [facility] GZLQS0227-78-01 11:16:00 Test Item Value Reference Range Interpretation Comments CO2 (test code = CO2) 23 24-32 [facility] [id number] 11:16:00 Test Item Value Reference Range Interpretation Comments AGAP (test code = AGAP) 12.0 10.0-20.0 [facility] [id number] 11:16:00 Test Item Value Reference Range Interpretation Comments B/C Ratio (test code = B/C Ratio) 18 1 6-25 [facility] [id number] 11:16:00 Test Item Value Reference Range Interpretation Comments Total Protein (test code = Total 5.8 6.4-8.4 Protein) [place] [address]-12-09 11:16:00 Test Item Value Reference Range Interpretation Comments Albumin Lvl (test code = Albumin Lvl) 3.1 3.5-5.0 [place] [address]-12-09 11:16:00 Test Item Value Reference Range Interpretation Comments Globulin (test code = Globulin) 2.7 2.7-4.2 [place] [address]-12-09 11:16:00 Test Item Value Reference Range Interpretation Comments A/G Ratio (test code = A/G Ratio) 1.1 1 0.7-1.6 [place] [address]-12-09 11:16:00 Test Item Value Reference Range Interpretation Comments ALT (test code = ALT) 37 See_Comment [Auto mated message] The system which ge nerated this result transmit suze reference range : <=65. The reference range was not used to interpr et this result as anselmo l/abnormal. [place] 826522-12-09 11:16:00 Test Item Value Reference Range Interpretation Comments AST (test code = AST) 45 See_Comment [Auto mated message] The system which ge nerated this result transmit suze reference range : <=37. The reference range was not used to interpr et this result as anselmo l/abnormal. [place] [address]-12-09 11:16:00 Test Item Value Reference Range Interpretation Comments Alk Phos (test code = Alk Phos) 70 39-136 [place] 826522-12-09 11:16:00 Test Item Value Reference Range Interpretation Comments Bili Total (test code = Bili Total) 0.2 0.2-1.3 [place] [address]-12-09 11:16:00 Test Item Value Reference Range Interpretation Comments eGFR (test code = eGFR) 119 [place] 848172-12-09 11:16:00 Test Item Value Reference Range Interpretation Comments WBC (test code = WBC) 6.9 3.7-10.4 [place] [address]-12-09 11:16:00 Test Item Value Reference Range Interpretation Comments RBC (test code = RBC) 4.20 4.70-6.10 [place] [address]-12-09 11:16:00 Test Item Value Reference Range Interpretation Comments Hgb (test code = Hgb) 12.9 14.0-18.0 [place] 848172-12-09 11:16:00 Test Item Value Reference Range Interpretation Comments Hct (test code = Hct) 38.4 42.0-54.0 [place] 848172-12-09 11:16:00 Test Item Value Reference Range Interpretation Comments MCV (test code = MCV) 91.4 80.0-94.0 [place] 848172-12-09 11:16:00 Test Item Value Reference Range Interpretation Comments MCH (test code = MCH) 30.6 pg 27.0-31.0 [facility] HospitalFlmmetxEEDNCMUMOO7433-19-28 11:16:00 Test Item Value Reference Range Interpretation Comments MCHC (test code = MCHC) 33.5 32.0-36.0 [facility] HospitalGtxhcqoFAUVQYIXCY2469-01-93 11:16:00 Test Item Value Reference Range Interpretation Comments RDW (test code = RDW) 12.7 11.5-14.5 [place] 848172-12-09 11:16:00 Test Item Value Reference Range Interpretation Comments Platelet (test code = Platelet) 180 133-450 [facility] HospitalOkzyesaMOLNKVGRPK0851-64-45 11:16:00 Test Item Value Reference Range Interpretation Comments MPV (test code = MPV) 9.3 7.4-10.4 [facility] HospitalVsgvucwJYNFEUEAEZ5570-72-97 11:16:00 Test Item Value Reference Range Interpretation Comments Segs (test code = Segs) 51.6 45.0-75.0 [facility] HospitalXaiwjicWBJAIYHFXF3762-40-36 11:16:00 Test Item Value Reference Range Interpretation Comments Lymphocytes (test code = Lymphocytes) 37.1 20.0-40.0 [place] 848172-12-09 11:16:00 Test Item Value Reference Range Interpretation Comments Monocytes (test code = Monocytes) 7.3 2.0-12.0 [place] [address]-12-09 11:16:00 Test Item Value Reference Range Interpretation Comments Eosinophils (test code = 3.4 See_Comment [A utomated message] The Eosinophils) system which ge nerated this result tra nsmitted reference range : <=4.0. The reference r peri was not used to int erpret this result as normal/abnormal . [facility] HospitalJpxdqoeMOTUPGRBLW5321-75-67 11:16:00 Test Item Value Reference Range Interpretation Comments Basophils (test code = 0.6 See_Comment [Aut omated message] The Basophils) system which ge nerated this result tra nsmitted reference range : <=1.0. The reference r peri was not used to int erpret this result as normal/abnormal . [facility] HospitalJfzysyxEXNNPSJFTS2918-09-26 11:16:00 Test Item Value Reference Range Interpretation Comments Neutrophils # (test code = Neutrophils 3.5 1.5-8.1 #) [facility] HospitalMaralrqXSASKZPKXC4046-93-32 11:16:00 Test Item Value Reference Range Interpretation Comments Lymphocytes # (test code = Lymphocytes 2.5 1.0-5.5 #) [facility] HospitalIddtptgTLGWOLBLNV2560-20-01 11:16:00 Test Item Value Reference Range Interpretation Comments Monocytes # (test code 0.5 See_Comment [Aut omated message] The = Monocytes #) system which generated this result tra nsmitted reference range : <=0.8. The reference r peri was not used to int erpret this result as normal/abnormal . [facility] HospitalKwhcxrpNSMKPUYVOJ2734-33-24 11:16:00 Test Item Value Reference Range Interpretation Comments Eosinophils # (test code 0.2 See_Comment [A utomated message] The = Eosinophils #) system whic h generated this result tra nsmitted reference range : <=0.5. The reference r peri was not used to int erpret this result as normal/abnormal . [facility] [id number] 11:16:00 Test Item Value Reference Range Interpretation Comments Total CK (test code = Total CK) 369 12-191 [facility]2022-12-09 11:16:00 Test Item Value Reference Range Interpretation Comments Calcium Lvl (test code = Calcium Lvl) 8.9 8.5-10.5 [facility]2022-12-09 11:16:00 Test Item Value Reference Range Interpretation Comments Glucose Lvl (test code = Glucose Lvl) 101 70-99 [facility] [id number] 11:16:00 Test Item Value Reference Range Interpretation Comments BUN (test code = BUN) 12 7-22 [place] 826522-12-09 11:16:00 Test Item Value Reference Range Interpretation Comments Creatinine Lvl (test code = Creatinine 0.65 0.50-1.40 Lvl) [place] 826522-12-09 11:16:00 Test Item Value Reference Range Interpretation Comments Sodium Lvl (test code = Sodium Lvl) 142 135-145 [place] 826522-12-09 11:16:00 Test Item Value Reference Range Interpretation Comments Potassium Lvl (test code = Potassium 4.0 3.5-5.1 Lvl) [place] 826522-12-09 11:16:00 Test Item Value Reference Range Interpretation Comments Chloride Lvl (test code = Chloride Lvl) 111 95-109 [place] 826522-12-09 11:16:00 Test Item Value Reference Range Interpretation Comments CO2 (test code = CO2) 23 24-32 [place] 826522-12-09 11:16:00 Test Item Value Reference Range Interpretation Comments AGAP (test code = AGAP) 12.0 10.0-20.0 [place] 826522-12-09 11:16:00 Test Item Value Reference Range Interpretation Comments B/C Ratio (test code = B/C Ratio) 18 1 6-25 [place] 826522-12-09 11:16:00 Test Item Value Reference Range Interpretation Comments Total Protein (test code = Total 5.8 6.4-8.4 Protein) [place] 826522-12-09 11:16:00 Test Item Value Reference Range Interpretation Comments Albumin Lvl (test code = Albumin Lvl) 3.1 3.5-5.0 [place] 826522-12-09 11:16:00 Test Item Value Reference Range Interpretation Comments Globulin (test code = Globulin) 2.7 2.7-4.2 [place] 826522-12-09 11:16:00 Test Item Value Reference Range Interpretation Comments A/G Ratio (test code = A/G Ratio) 1.1 1 0.7-1.6 [place] 826522-12-09 11:16:00 Test Item Value Reference Range Interpretation Comments ALT (test code = ALT) 37 See_Comment [Auto mated message] The system which ge nerated this result transmit suze reference range : <=65. The reference range was not used to interpr et this result as anselmo l/abnormal. [place] 826522-12-09 11:16:00 Test Item Value Reference Range Interpretation Comments AST (test code = AST) 45 See_Comment [Auto mated message] The system which ge nerated this result transmit suze reference range : <=37. The reference range was not used to interpr et this result as anselmo l/abnormal. [place] 826522-12-09 11:16:00 Test Item Value Reference Range Interpretation Comments Alk Phos (test code = Alk Phos) 70 39-136 [place] 826522-12-09 11:16:00 Test Item Value Reference Range Interpretation Comments Bili Total (test code = Bili Total) 0.2 0.2-1.3 [place] 826522-12-09 11:16:00 Test Item Value Reference Range Interpretation Comments eGFR (test code = eGFR) 119 [place] 848172-12-09 11:16:00 Test Item Value Reference Range Interpretation Comments WBC (test code = WBC) 6.9 3.7-10.4 [place] [address]-12-09 11:16:00 Test Item Value Reference Range Interpretation Comments RBC (test code = RBC) 4.20 4.70-6.10 [place] [address]-12-09 11:16:00 Test Item Value Reference Range Interpretation Comments Hgb (test code = Hgb) 12.9 14.0-18.0 [place] [address]-12-09 11:16:00 Test Item Value Reference Range Interpretation Comments Hct (test code = Hct) 38.4 42.0-54.0 [place] [address]-12-09 11:16:00 Test Item Value Reference Range Interpretation Comments MCV (test code = MCV) 91.4 80.0-94.0 [place] [address]-12-09 11:16:00 Test Item Value Reference Range Interpretation Comments MCH (test code = MCH) 30.6 pg 27.0-31.0 [place] [address]-12-09 11:16:00 Test Item Value Reference Range Interpretation Comments MCHC (test code = MCHC) 33.5 32.0-36.0 [place] 848172-12-09 11:16:00 Test Item Value Reference Range Interpretation Comments RDW (test code = RDW) 12.7 11.5-14.5 [place] 848172-12-09 11:16:00 Test Item Value Reference Range Interpretation Comments Platelet (test code = Platelet) 180 133-450 [place] 848172-12-09 11:16:00 Test Item Value Reference Range Interpretation Comments MPV (test code = MPV) 9.3 7.4-10.4 [place] 848172-12-09 11:16:00 Test Item Value Reference Range Interpretation Comments Segs (test code = Segs) 51.6 45.0-75.0 [place] 848172-12-09 11:16:00 Test Item Value Reference Range Interpretation Comments Lymphocytes (test code = Lymphocytes) 37.1 20.0-40.0 [place] 848172-12-09 11:16:00 Test Item Value Reference Range Interpretation Comments Monocytes (test code = Monocytes) 7.3 2.0-12.0 [place] 848172-12-09 11:16:00 Test Item Value Reference Range Interpretation Comments Eosinophils (test code = 3.4 See_Comment [A utomated message] The Eosinophils) system which ge nerated this result tra nsmitted reference range : <=4.0. The reference r peri was not used to int erpret this result as normal/abnormal . [place] 848172-12-09 11:16:00 Test Item Value Reference Range Interpretation Comments Basophils (test code = 0.6 See_Comment [Aut omated message] The Basophils) system which ge nerated this result tra nsmitted reference range : <=1.0. The reference r peri was not used to int erpret this result as normal/abnormal . [place] 848172-12-09 11:16:00 Test Item Value Reference Range Interpretation Comments Neutrophils # (test code = Neutrophils 3.5 1.5-8.1 #) [place] 848172-12-09 11:16:00 Test Item Value Reference Range Interpretation Comments Lymphocytes # (test code = Lymphocytes 2.5 1.0-5.5 #) [facility]hfksIYPNQLJVJT9168-32-34 11:16:00 Test Item Value Reference Range Interpretation Comments Monocytes # (test code 0.5 See_Comment [Aut omated message] The = Monocytes #) system which generated this result tra nsmitted reference range : <=0.8. The reference r peri was not used to int erpret this result as normal/abnormal . [facility] HospitalZdkynisPXSUCHVTWO4471-39-35 11:16:00 Test Item Value Reference Range Interpretation Comments Eosinophils # (test code 0.2 See_Comment [A utomated message] The = Eosinophils #) system whic h generated this result tra nsmitted reference range : <=0.5. The reference r peri was not used to int erpret this result as normal/abnormal . [facility] KDLHLMZ4877-76-16 11:16:00 Test Item Value Reference Range Interpretation Comments Total CK (test code = Total CK) 369 12-191 [facility]2022-12-09 11:16:00 Test Item Value Reference Range Interpretation Comments Calcium Lvl (test code = Calcium Lvl) 8.9 8.5-10.5 [facility]2022-12-09 11:16:00 Test Item Value Reference Range Interpretation Comments Glucose Lvl (test code = Glucose Lvl) 101 70-99 [facility]2022-12-09 11:16:00 Test Item Value Reference Range Interpretation Comments BUN (test code = BUN) 12 7-22 [facility]2022-12-09 11:16:00 Test Item Value Reference Range Interpretation Comments Creatinine Lvl (test code = Creatinine 0.65 0.50-1.40 Lvl) [facility]2022-12-09 11:16:00 Test Item Value Reference Range Interpretation Comments Sodium Lvl (test code = Sodium Lvl) 142 135-145 [facility]2022-12-09 11:16:00 Test Item Value Reference Range Interpretation Comments Potassium Lvl (test code = Potassium 4.0 3.5-5.1 Lvl) [facility]2022-12-09 11:16:00 Test Item Value Reference Range Interpretation Comments Chloride Lvl (test code = Chloride Lvl) 111 95-109 [facility] EPXNJ0345[facility] 11:16:00 Test Item Value Reference Range Interpretation Comments CO2 (test code = CO2) 23 24-32 [place] 826522-12-09 11:16:00 Test Item Value Reference Range Interpretation Comments AGAP (test code = AGAP) 12.0 10.0-20.0 [place] [address]-12-09 11:16:00 Test Item Value Reference Range Interpretation Comments B/C Ratio (test code = B/C Ratio) 18 1 6-25 [place] [address]-12-09 11:16:00 Test Item Value Reference Range Interpretation Comments Total Protein (test code = Total 5.8 6.4-8.4 Protein) [place] 826522-12-09 11:16:00 Test Item Value Reference Range Interpretation Comments Albumin Lvl (test code = Albumin Lvl) 3.1 3.5-5.0 [place] [address]-12-09 11:16:00 Test Item Value Reference Range Interpretation Comments Globulin (test code = Globulin) 2.7 2.7-4.2 [place] [address]-12-09 11:16:00 Test Item Value Reference Range Interpretation Comments A/G Ratio (test code = A/G Ratio) 1.1 1 0.7-1.6 [place] 826522-12-09 11:16:00 Test Item Value Reference Range Interpretation Comments ALT (test code = ALT) 37 See_Comment [Auto mated message] The system which ge nerated this result transmit suze reference range : <=65. The reference range was not used to interpr et this result as anselmo l/abnormal. [place] 826522-12-09 11:16:00 Test Item Value Reference Range Interpretation Comments AST (test code = AST) 45 See_Comment [Auto mated message] The system which ge nerated this result transmit suze reference range : <=37. The reference range was not used to interpr et this result as anselmo l/abnormal. [place] 826522-12-09 11:16:00 Test Item Value Reference Range Interpretation Comments Alk Phos (test code = Alk Phos) 70 39-136 [place] [address]-12-09 11:16:00 Test Item Value Reference Range Interpretation Comments Bili Total (test code = Bili Total) 0.2 0.2-1.3 [facility]2022-12-09 11:16:00 Test Item Value Reference Range Interpretation Comments eGFR (test code = eGFR) 119 [facility] HospitalHpfuxedRHCJDYVSOX6623-09-70 11:16:00 Test Item Value Reference Range Interpretation Comments WBC (test code = WBC) 6.9 3.7-10.4 [facility] HospitalMntxwwoZTOAZGBLNM7945-81-87 11:16:00 Test Item Value Reference Range Interpretation Comments RBC (test code = RBC) 4.20 4.70-6.10 [facility] HospitalKufbovpVAQEMXCFSQ5918-05-91 11:16:00 Test Item Value Reference Range Interpretation Comments Hgb (test code = Hgb) 12.9 14.0-18.0 [place] 848172-12-09 11:16:00 Test Item Value Reference Range Interpretation Comments Hct (test code = Hct) 38.4 42.0-54.0 [facility] HospitalBharhzrSXBLBPBVEO8647-12-59 11:16:00 Test Item Value Reference Range Interpretation Comments MCV (test code = MCV) 91.4 80.0-94.0 [facility] HospitalIyrycgwJFQTDDTTWI5878-49-82 11:16:00 Test Item Value Reference Range Interpretation Comments MCH (test code = MCH) 30.6 pg 27.0-31.0 [facility] HospitalEjqteyiWANYHTHZZM1966-66-10 11:16:00 Test Item Value Reference Range Interpretation Comments MCHC (test code = MCHC) 33.5 32.0-36.0 [facility] HospitalYoickhjIOOXBZYADR8473-86-21 11:16:00 Test Item Value Reference Range Interpretation Comments RDW (test code = RDW) 12.7 11.5-14.5 [place] 848172-12-09 11:16:00 Test Item Value Reference Range Interpretation Comments Platelet (test code = Platelet) 180 133-450 [facility] HospitalFxnodlxQVJSZJBJWU1218-00-72 11:16:00 Test Item Value Reference Range Interpretation Comments MPV (test code = MPV) 9.3 7.4-10.4 [place] 848172-12-09 11:16:00 Test Item Value Reference Range Interpretation Comments Segs (test code = Segs) 51.6 45.0-75.0 [facility] HospitalUymmxlaVIWVATLWDQ6616-52-09 11:16:00 Test Item Value Reference Range Interpretation Comments Lymphocytes (test code = Lymphocytes) 37.1 20.0-40.0 [facility] HospitalEnhyfpgXBCKISKHNH9879-17-41 11:16:00 Test Item Value Reference Range Interpretation Comments Monocytes (test code = Monocytes) 7.3 2.0-12.0 [facility] HospitalKpvkbsdPNSSVIVIFN3407-78-51 11:16:00 Test Item Value Reference Range Interpretation Comments Eosinophils (test code = 3.4 See_Comment [A utomated message] The Eosinophils) system which ge nerated this result tra nsmitted reference range : <=4.0. The reference r peri was not used to int erpret this result as normal/abnormal . [facility] HospitalFlurfacPOAFZWDNVW7633-54-61 11:16:00 Test Item Value Reference Range Interpretation Comments Basophils (test code = 0.6 See_Comment [Aut omated message] The Basophils) system which ge nerated this result tra nsmitted reference range : <=1.0. The reference r peri was not used to int erpret this result as normal/abnormal . [facility] HospitalJedumpoJAWGBVXOXC2000-96-85 11:16:00 Test Item Value Reference Range Interpretation Comments Neutrophils # (test code = Neutrophils 3.5 1.5-8.1 #) [facility] HospitalWyqmuzvAIRZDOSWWK3247-60-65 11:16:00 Test Item Value Reference Range Interpretation Comments Lymphocytes # (test code = Lymphocytes 2.5 1.0-5.5 #) [facility] HospitalHzthrsoYXLDWZKONJ7519-02-63 11:16:00 Test Item Value Reference Range Interpretation Comments Monocytes # (test code 0.5 See_Comment [Aut omated message] The = Monocytes #) system which generated this result tra nsmitted reference range : <=0.8. The reference r peri was not used to int erpret this result as normal/abnormal . [facility] HospitalMzbjwgaEWZMLASZSN4368-45-67 11:16:00 Test Item Value Reference Range Interpretation Comments Eosinophils # (test code 0.2 See_Comment [A utomated message] The = Eosinophils #) system whic h generated this result tra nsmitted reference range : <=0.5. The reference r peri was not used to int erpret this result as normal/abnormal . [facility]DIDECK[facility] HOSPITALYUYHYCH7908-93-98 11:16:00 Test Item Value Reference Range Interpretation Comments Total CK (test code = Total CK) 369 12-191 [facility]2022-12-09 11:16:00 Test Item Value Reference Range Interpretation Comments Calcium Lvl (test code = Calcium Lvl) 8.9 8.5-10.5 [facility]2022-12-09 11:16:00 Test Item Value Reference Range Interpretation Comments Glucose Lvl (test code = Glucose Lvl) 101 70-99 [facility]2022-12-09 11:16:00 Test Item Value Reference Range Interpretation Comments BUN (test code = BUN) 12 7-22 [place] 826522-12-09 11:16:00 Test Item Value Reference Range Interpretation Comments Creatinine Lvl (test code = Creatinine 0.65 0.50-1.40 Lvl) [facility]2022-12-09 11:16:00 Test Item Value Reference Range Interpretation Comments Sodium Lvl (test code = Sodium Lvl) 142 135-145 [facility]2022-12-09 11:16:00 Test Item Value Reference Range Interpretation Comments Potassium Lvl (test code = Potassium 4.0 3.5-5.1 Lvl) [facility]2022-12-09 11:16:00 Test Item Value Reference Range Interpretation Comments Chloride Lvl (test code = Chloride Lvl) 111 95-109 [facility]2022-12-09 11:16:00 Test Item Value Reference Range Interpretation Comments CO2 (test code = CO2) 23 24-32 [facility]2022-12-09 11:16:00 Test Item Value Reference Range Interpretation Comments AGAP (test code = AGAP) 12.0 10.0-20.0 [facility]2022-12-09 11:16:00 Test Item Value Reference Range Interpretation Comments B/C Ratio (test code = B/C Ratio) 18 1 6-25 [place] 826522-12-09 11:16:00 Test Item Value Reference Range Interpretation Comments Total Protein (test code = Total 5.8 6.4-8.4 Protein) [facility]2022-12-09 11:16:00 Test Item Value Reference Range Interpretation Comments Albumin Lvl (test code = Albumin Lvl) 3.1 3.5-5.0 [place] [address]-12-09 11:16:00 Test Item Value Reference Range Interpretation Comments Globulin (test code = Globulin) 2.7 2.7-4.2 [place] [address]-12-09 11:16:00 Test Item Value Reference Range Interpretation Comments A/G Ratio (test code = A/G Ratio) 1.1 1 0.7-1.6 [place] [address]-12-09 11:16:00 Test Item Value Reference Range Interpretation Comments ALT (test code = ALT) 37 See_Comment [Auto mated message] The system which ge nerated this result transmit suze reference range : <=65. The reference range was not used to interpr et this result as anselmo l/abnormal. [place] [address]-12-09 11:16:00 Test Item Value Reference Range Interpretation Comments AST (test code = AST) 45 See_Comment [Auto mated message] The system which ge nerated this result transmit suze reference range : <=37. The reference range was not used to interpr et this result as anselmo l/abnormal. [place] 826522-12-09 11:16:00 Test Item Value Reference Range Interpretation Comments Alk Phos (test code = Alk Phos) 70 39-136 [place] [address]-12-09 11:16:00 Test Item Value Reference Range Interpretation Comments Bili Total (test code = Bili Total) 0.2 0.2-1.3 [place] [address]-12-09 11:16:00 Test Item Value Reference Range Interpretation Comments eGFR (test code = eGFR) 119 [place] [address]-12-09 11:16:00 Test Item Value Reference Range Interpretation Comments WBC (test code = WBC) 6.9 3.7-10.4 [place] [address]-12-09 11:16:00 Test Item Value Reference Range Interpretation Comments RBC (test code = RBC) 4.20 4.70-6.10 [place] [address]-12-09 11:16:00 Test Item Value Reference Range Interpretation Comments Hgb (test code = Hgb) 12.9 14.0-18.0 [place] [address]-12-09 11:16:00 Test Item Value Reference Range Interpretation Comments Hct (test code = Hct) 38.4 42.0-54.0 [place] 848172-12-09 11:16:00 Test Item Value Reference Range Interpretation Comments MCV (test code = MCV) 91.4 80.0-94.0 [place] 848172-12-09 11:16:00 Test Item Value Reference Range Interpretation Comments MCH (test code = MCH) 30.6 pg 27.0-31.0 [place] 848172-12-09 11:16:00 Test Item Value Reference Range Interpretation Comments MCHC (test code = MCHC) 33.5 32.0-36.0 [place] 848172-12-09 11:16:00 Test Item Value Reference Range Interpretation Comments RDW (test code = RDW) 12.7 11.5-14.5 [place] 848172-12-09 11:16:00 Test Item Value Reference Range Interpretation Comments Platelet (test code = Platelet) 180 133-450 [facility] HospitalNrlvpfwHIBZNVNRHB6081-73-08 11:16:00 Test Item Value Reference Range Interpretation Comments MPV (test code = MPV) 9.3 7.4-10.4 [place] 848172-12-09 11:16:00 Test Item Value Reference Range Interpretation Comments Segs (test code = Segs) 51.6 45.0-75.0 [facility] HospitalXmswxlyBEIABFJPLN3266-74-64 11:16:00 Test Item Value Reference Range Interpretation Comments Lymphocytes (test code = Lymphocytes) 37.1 20.0-40.0 [place] 848172-12-09 11:16:00 Test Item Value Reference Range Interpretation Comments Monocytes (test code = Monocytes) 7.3 2.0-12.0 [place] [address]-12-09 11:16:00 Test Item Value Reference Range Interpretation Comments Eosinophils (test code = 3.4 See_Comment [A utomated message] The Eosinophils) system which ge nerated this result tra nsmitted reference range : <=4.0. The reference r peri was not used to int erpret this result as normal/abnormal . [place] 848172-12-09 11:16:00 Test Item Value Reference Range Interpretation Comments Basophils (test code = 0.6 See_Comment [Aut omated message] The Basophils) system which ge nerated this result tra nsmitted reference range : <=1.0. The reference r peri was not used to int erpret this result as normal/abnormal . [facility] HospitalNhxbxqyFAEJEQYAUZ9211-74-82 11:16:00 Test Item Value Reference Range Interpretation Comments Neutrophils # (test code = Neutrophils 3.5 1.5-8.1 #) [facility] HospitalDjitgyuUIMHZVGHZI9145-95-83 11:16:00 Test Item Value Reference Range Interpretation Comments Lymphocytes # (test code = Lymphocytes 2.5 1.0-5.5 #) [facility] HospitalXmclmwhGFEISVAILP4005-28-63 11:16:00 Test Item Value Reference Range Interpretation Comments Monocytes # (test code 0.5 See_Comment [Aut omated message] The = Monocytes #) system which generated this result tra nsmitted reference range : <=0.8. The reference r peri was not used to int erpret this result as normal/abnormal . [facility] HospitalBwdaybtVZZXJSRRHS0573-73-87 11:16:00 Test Item Value Reference Range Interpretation Comments Eosinophils # (test code 0.2 See_Comment [A utomated message] The = Eosinophils #) system whic h generated this result tra nsmitted reference range : <=0.5. The reference r peri was not used to int erpret this result as normal/abnormal . [facility]2022-12-09 11:16:00 Test Item Value Reference Range Interpretation Comments Total CK (test code = Total CK) 369 12-191 [facility]2022-12-09 11:16:00 Test Item Value Reference Range Interpretation Comments Calcium Lvl (test code = Calcium Lvl) 8.9 8.5-10.5 [facility]2022-12-09 11:16:00 Test Item Value Reference Range Interpretation Comments Glucose Lvl (test code = Glucose Lvl) 101 70-99 [facility]2022-12-09 11:16:00 Test Item Value Reference Range Interpretation Comments BUN (test code = BUN) 12 7-22 [facility]2022-12-09 11:16:00 Test Item Value Reference Range Interpretation Comments Creatinine Lvl (test code = Creatinine 0.65 0.50-1.40 Lvl) [facility]2022-12-09 11:16:00 Test Item Value Reference Range Interpretation Comments Sodium Lvl (test code = Sodium Lvl) 142 135-145 [place] 826522-12-09 11:16:00 Test Item Value Reference Range Interpretation Comments Potassium Lvl (test code = Potassium 4.0 3.5-5.1 Lvl) [place] 826522-12-09 11:16:00 Test Item Value Reference Range Interpretation Comments Chloride Lvl (test code = Chloride Lvl) 111 95-109 [place] 826522-12-09 11:16:00 Test Item Value Reference Range Interpretation Comments CO2 (test code = CO2) 23 24-32 [place] 826522-12-09 11:16:00 Test Item Value Reference Range Interpretation Comments AGAP (test code = AGAP) 12.0 10.0-20.0 [place] 826522-12-09 11:16:00 Test Item Value Reference Range Interpretation Comments B/C Ratio (test code = B/C Ratio) 18 1 6-25 [place] 826522-12-09 11:16:00 Test Item Value Reference Range Interpretation Comments Total Protein (test code = Total 5.8 6.4-8.4 Protein) [place] 826522-12-09 11:16:00 Test Item Value Reference Range Interpretation Comments Albumin Lvl (test code = Albumin Lvl) 3.1 3.5-5.0 [place] 826522-12-09 11:16:00 Test Item Value Reference Range Interpretation Comments Globulin (test code = Globulin) 2.7 2.7-4.2 [place] 826522-12-09 11:16:00 Test Item Value Reference Range Interpretation Comments A/G Ratio (test code = A/G Ratio) 1.1 1 0.7-1.6 [place] [address]-12-09 11:16:00 Test Item Value Reference Range Interpretation Comments ALT (test code = ALT) 37 See_Comment [Auto mated message] The system which ge nerated this result transmit suze reference range : <=65. The reference range was not used to interpr et this result as anselmo l/abnormal. [place] 826522-12-09 11:16:00 Test Item Value Reference Range Interpretation Comments AST (test code = AST) 45 See_Comment [Auto mated message] The system which ge nerated this result transmit suze reference range : <=37. The reference range was not used to interpr et this result as anselmo l/abnormal. [facility]2022-12-09 11:16:00 Test Item Value Reference Range Interpretation Comments Alk Phos (test code = Alk Phos) 70 39-136 [place] 826522-12-09 11:16:00 Test Item Value Reference Range Interpretation Comments Bili Total (test code = Bili Total) 0.2 0.2-1.3 [place] 826522-12-09 11:16:00 Test Item Value Reference Range Interpretation Comments eGFR (test code = eGFR) 119 [facility] HospitalHmvhltkJZJQKQBAPT9924-02-16 11:16:00 Test Item Value Reference Range Interpretation Comments WBC (test code = WBC) 6.9 3.7-10.4 [facility] HospitalYiuidofTWVAPBOSUC1373-52-40 11:16:00 Test Item Value Reference Range Interpretation Comments RBC (test code = RBC) 4.20 4.70-6.10 [facility] HospitalPpvildzJNJGFPVLKQ7075-50-73 11:16:00 Test Item Value Reference Range Interpretation Comments Hgb (test code = Hgb) 12.9 14.0-18.0 [facility] HospitalFzqfnjsHVECNAKFSO6587-12-60 11:16:00 Test Item Value Reference Range Interpretation Comments Hct (test code = Hct) 38.4 42.0-54.0 [facility] HospitalQivbrpvNOFUNFWSTC2070-11-40 11:16:00 Test Item Value Reference Range Interpretation Comments MCV (test code = MCV) 91.4 80.0-94.0 [place] 848172-12-09 11:16:00 Test Item Value Reference Range Interpretation Comments MCH (test code = MCH) 30.6 pg 27.0-31.0 [place] 848172-12-09 11:16:00 Test Item Value Reference Range Interpretation Comments MCHC (test code = MCHC) 33.5 32.0-36.0 [place] [address]-12-09 11:16:00 Test Item Value Reference Range Interpretation Comments RDW (test code = RDW) 12.7 11.5-14.5 [place] 848172-12-09 11:16:00 Test Item Value Reference Range Interpretation Comments Platelet (test code = Platelet) 180 133-450 [facility] HospitalLmhnoaaSPZMFUEQYJ7800-57-58 11:16:00 Test Item Value Reference Range Interpretation Comments MPV (test code = MPV) 9.3 7.4-10.4 [place] 848172-12-09 11:16:00 Test Item Value Reference Range Interpretation Comments Segs (test code = Segs) 51.6 45.0-75.0 [place] 848172-12-09 11:16:00 Test Item Value Reference Range Interpretation Comments Lymphocytes (test code = Lymphocytes) 37.1 20.0-40.0 [place] [id number] 11:16:00 Test Item Value Reference Range Interpretation Comments Monocytes (test code = Monocytes) 7.3 2.0-12.0 [place] [id number] 11:16:00 Test Item Value Reference Range Interpretation Comments Eosinophils (test code = 3.4 See_Comment [A utomated message] The Eosinophils) system which ge nerated this result tra nsmitted reference range : <=4.0. The reference r peri was not used to int erpret this result as normal/abnormal . [place] 848172-12-09 11:16:00 Test Item Value Reference Range Interpretation Comments Basophils (test code = 0.6 See_Comment [Aut omated message] The Basophils) system which ge nerated this result tra nsmitted reference range : <=1.0. The reference r peri was not used to int erpret this result as normal/abnormal . [id number] 11:16:00 Test Item Value Reference Range Interpretation Comments Neutrophils # (test code = Neutrophils 3.5 1.5-8.1 #) [place] [id number] 11:16:00 Test Item Value Reference Range Interpretation Comments Lymphocytes # (test code = Lymphocytes 2.5 1.0-5.5 #) [place] [address]88-12-09 11:16:00 Test Item Value Reference Range Interpretation Comments Monocytes # (test code 0.5 See_Comment [Aut omated message] The = Monocytes #) system which generated this result tra nsmitted reference range : <=0.8. The reference r peri was not used to int erpret this result as normal/abnormal . [facility]WrkajkwGWUEUDMREX8556-83-90 11:16:00 Test Item Value Reference Range Interpretation Comments Eosinophils # (test code 0.2 See_Comment [A utomated message] The = Eosinophils #) system whic h generated this result tra nsmitted reference range : <=0.5. The reference r peri was not used to int erpret this result as normal/abnormal . [facility] CenterCARDIAC [id number] 15:17:00 Test Item Value Reference Range Interpretation Comments HS Troponin I (test code = HS Troponin 11 I) [facility]annCHEM [id number] 15:17:00 Test Item Value Reference Range Interpretation Comments Magnesium Lvl (test code = Magnesium 2.4 1.8-2.4 Lvl) [facility]annCHEM [id number] 15:17:00 Test Item Value Reference Range Interpretation Comments Phosphorus (test code = Phosphorus) 1.7 2.5-4.5 [facility] CenterHdvblxpRRKMDSKQP7131-47-29 15:17:00 Test Item Value Reference Range Interpretation Comments Ca Ion WB (test code = Ca Ion WB) 1.12 1.05-1.25 [facility] CenterJbnbpuwLNDZIMKNJ2606-50-26 15:17:00 Test Item Value Reference Range Interpretation Comments Ca Ion at pH 7.4 WB (test code = Ca Ion 1.10 1.05-1.25 at pH 7.4 WB) [facility] CenterUqseskbZPKKQPFXK7351-04-39 15:17:00 Test Item Value Reference Range Interpretation Comments Magnesium Lvl (test code = Magnesium 2.4 1.8-2.4 Lvl) [facility] CenterZsyhxpvBJBYWYJEM7669-25-38 15:17:00 Test Item Value Reference Range Interpretation Comments Phosphorus (test code = Phosphorus) 1.7 2.5-4.5 [facility] CenterQtxzjroGOGXUXJRB2238-30-46 15:17:00 Test Item Value Reference Range Interpretation Comments HS Troponin I (test code = HS Troponin 11 I) [facility] CenterannPARATHYROID [id number] 15:17:00 Test Item Value Reference Range Interpretation Comments Ca Ion WB (test code = Ca Ion WB) 1.12 1.05-1.25 [facility] CenterannPARATHYROID [id number] 15:17:00 Test Item Value Reference Range Interpretation Comments Ca Ion at pH 7.4 WB (test code = Ca Ion 1.10 1.05-1.25 at pH 7.4 WB) [facility] CenterGeoOP [id number] 15:17:00 Test Item Value Reference Range Interpretation Comments HS Troponin I (test code = HS Troponin 11 I) [facility]2022-12-08 15:17:00 Test Item Value Reference Range Interpretation Comments Magnesium Lvl (test code = Magnesium 2.4 1.8-2.4 Lvl) [facility]2022-12-08 15:17:00 Test Item Value Reference Range Interpretation Comments Phosphorus (test code = Phosphorus) 1.7 2.5-4.5 [facility] CenterPmhrxdvZRUPPNMWI5580-44-15 15:17:00 Test Item Value Reference Range Interpretation Comments Ca Ion WB (test code = Ca Ion WB) 1.12 1.05-1.25 [facility] CenterPdjlrmpTVQCULAPX3702-89-36 15:17:00 Test Item Value Reference Range Interpretation Comments Ca Ion at pH 7.4 WB (test code = Ca Ion 1.10 1.05-1.25 at pH 7.4 WB) [facility] CenterUyuteajYWCLVOISJ2239-00-21 15:17:00 Test Item Value Reference Range Interpretation Comments Magnesium Lvl (test code = Magnesium 2.4 1.8-2.4 Lvl) [facility] CenterJpdoizgHIWGQTSRI4564-56-85 15:17:00 Test Item Value Reference Range Interpretation Comments Phosphorus (test code = Phosphorus) 1.7 2.5-4.5 [facility] CenterGoivqngGNBASZFUZ7825-74-33 15:17:00 Test Item Value Reference Range Interpretation Comments HS Troponin I (test code = HS Troponin 11 I) [facility] CenterWifi OnlineENCOMPASS HE[facility]IL[facility] OF SCOTTSDALEATHYROID [id number] 15:17:00 Test Item Value Reference Range Interpretation Comments Ca Ion WB (test code = Ca Ion WB) 1.12 1.05-1.25 [facility] CenterPublic Good SoftwareROID [id number] 15:17:00 Test Item Value Reference Range Interpretation Comments Ca Ion at pH 7.4 WB (test code = Ca Ion 1.10 1.05-1.25 at pH 7.4 WB) [facility] CenterGeoOP [id number] 15:17:00 Test Item Value Reference Range Interpretation Comments HS Troponin I (test code = HS Troponin 11 I) [facility] [id number] 15:17:00 Test Item Value Reference Range Interpretation Comments Magnesium Lvl (test code = Magnesium 2.4 1.8-2.4 Lvl) [facility] [id number] 15:17:00 Test Item Value Reference Range Interpretation Comments Phosphorus (test code = Phosphorus) 1.7 2.5-4.5 [facility] CenterMupkobnSHPAQWHUJ1344-99-88 15:17:00 Test Item Value Reference Range Interpretation Comments Ca Ion WB (test code = Ca Ion WB) 1.12 1.05-1.25 [facility] CenterLeyexlcIPWZHOXVZ3521-87-56 15:17:00 Test Item Value Reference Range Interpretation Comments Ca Ion at pH 7.4 WB (test code = Ca Ion 1.10 1.05-1.25 at pH 7.4 WB) [facility] CenterAkhobdyPLMITDKNV9972-65-55 15:17:00 Test Item Value Reference Range Interpretation Comments Magnesium Lvl (test code = Magnesium 2.4 1.8-2.4 Lvl) [facility] CenterOjkaqkcQHJVYSXJZ7565-55-82 15:17:00 Test Item Value Reference Range Interpretation Comments Phosphorus (test code = Phosphorus) 1.7 2.5-4.5 [facility] CenterQmvbqzeGZZVIHUZZ6919-20-54 15:17:00 Test Item Value Reference Range Interpretation Comments HS Troponin I (test code = HS Troponin 11 I) [facility] CenterannPARATHYROID [id number] 15:17:00 Test Item Value Reference Range Interpretation Comments Ca Ion WB (test code = Ca Ion WB) 1.12 1.05-1.25 [facility] CenterannPARATHYROID [id number] 15:17:00 Test Item Value Reference Range Interpretation Comments Ca Ion at pH 7.4 WB (test code = Ca Ion 1.10 1.05-1.25 at pH 7.4 WB) [facility] CenterannCARDIAC [id number] 15:17:00 Test Item Value Reference Range Interpretation Comments HS Troponin I (test code = HS Troponin 11 I) [facility] [id number] 15:17:00 Test Item Value Reference Range Interpretation Comments Magnesium Lvl (test code = Magnesium 2.4 1.8-2.4 Lvl) [facility] [id number] 15:17:00 Test Item Value Reference Range Interpretation Comments Phosphorus (test code = Phosphorus) 1.7 2.5-4.5 [facility] CenterHogdvxlMSHXBFKWT3893-25-32 15:17:00 Test Item Value Reference Range Interpretation Comments Ca Ion WB (test code = Ca Ion WB) 1.12 1.05-1.25 [facility] CenterBugbgzdJUHQWQMQU5476-93-30 15:17:00 Test Item Value Reference Range Interpretation Comments Ca Ion at pH 7.4 WB (test code = Ca Ion 1.10 1.05-1.25 at pH 7.4 WB) [facility] CenterZxdxkdyKCKVTCZAP8904-73-42 15:17:00 Test Item Value Reference Range Interpretation Comments Magnesium Lvl (test code = Magnesium 2.4 1.8-2.4 Lvl) [facility] CenterZpfanjhJKYTVUPKS1980-21-20 15:17:00 Test Item Value Reference Range Interpretation Comments Phosphorus (test code = Phosphorus) 1.7 2.5-4.5 [facility] CenterGhhrrfsUTZIHOEGF8000-94-83 15:17:00 Test Item Value Reference Range Interpretation Comments HS Troponin I (test code = HS Troponin 11 I) [facility] CenterPARATHYROID [id number] 15:17:00 Test Item Value Reference Range Interpretation Comments Ca Ion WB (test code = Ca Ion WB) 1.12 1.05-1.25 [facility]ATHYROID [id number] 15:17:00 Test Item Value Reference Range Interpretation Comments Ca Ion at pH 7.4 WB (test code = Ca Ion 1.10 1.05-1.25 at pH 7.4 WB) [facility] CenterCARDIAC [id number] 15:17:00 Test Item Value Reference Range Interpretation Comments HS Troponin I (test code = HS Troponin 11 I) [facility]2022-12-08 15:17:00 Test Item Value Reference Range Interpretation Comments Magnesium Lvl (test code = Magnesium 2.4 1.8-2.4 Lvl) [facility]2022-12-08 15:17:00 Test Item Value Reference Range Interpretation Comments Phosphorus (test code = Phosphorus) 1.7 2.5-4.5 [facility] CenterVqcivsbWVRYYFRSJ5453-06-48 15:17:00 Test Item Value Reference Range Interpretation Comments Ca Ion WB (test code = Ca Ion WB) 1.12 1.05-1.25 [facility] CenterImofrhrXZFSYBMHB0784-81-04 15:17:00 Test Item Value Reference Range Interpretation Comments Ca Ion at pH 7.4 WB (test code = Ca Ion 1.10 1.05-1.25 at pH 7.4 WB) [facility] CenterTsqqyroECUHMWVFW2654-72-93 15:17:00 Test Item Value Reference Range Interpretation Comments Magnesium Lvl (test code = Magnesium 2.4 1.8-2.4 Lvl) [facility] CenterNnxskmnGUOQOLPQM7255-45-47 15:17:00 Test Item Value Reference Range Interpretation Comments Phosphorus (test code = Phosphorus) 1.7 2.5-4.5 [facility] CenterLwhddghKPCDOEXMA8077-86-50 15:17:00 Test Item Value Reference Range Interpretation Comments HS Troponin I (test code = HS Troponin 11 I) [facility] [id number] 15:17:00 Test Item Value Reference Range Interpretation Comments Ca Ion WB (test code = Ca Ion WB) 1.12 1.05-1.[address] [facility]RO[facility] [id number] 15:17:00 Test Item Value Reference Range Interpretation Comments Ca Ion at pH 7.4 WB (test code = Ca Ion 1.10 1.05-1.25 at pH 7.4 WB) [facility] CenterCARDIAC [id number] 15:17:00 Test Item Value Reference Range Interpretation Comments HS Troponin I (test code = HS Troponin 11 I) [facility] CenterCHEM [id number] 15:17:00 Test Item Value Reference Range Interpretation Comments Magnesium Lvl (test code = Magnesium 2.4 1.8-2.4 Lvl) [facility] [id number] 15:17:00 Test Item Value Reference Range Interpretation Comments Phosphorus (test code = Phosphorus) 1.7 2.5-4.5 [facility] CenterJogviakQRBWWJAAU2479-26-97 15:17:00 Test Item Value Reference Range Interpretation Comments Ca Ion WB (test code = Ca Ion WB) 1.12 1.05-1.25 [facility] CenterVtlbfuoRENYFHBTV8735-22-02 15:17:00 Test Item Value Reference Range Interpretation Comments Ca Ion at pH 7.4 WB (test code = Ca Ion 1.10 1.05-1.25 at pH 7.4 WB) [facility] CenterRsllhdbMOEQCBWSK5652-73-81 15:17:00 Test Item Value Reference Range Interpretation Comments Magnesium Lvl (test code = Magnesium 2.4 1.8-2.4 Lvl) [facility] CenterGbzugduFTNSJRLXR9391-20-30 15:17:00 Test Item Value Reference Range Interpretation Comments Phosphorus (test code = Phosphorus) 1.7 2.5-4.5 [facility] CenterFgzfmmpVNLTTLYSV0212-04-72 15:17:00 Test Item Value Reference Range Interpretation Comments HS Troponin I (test code = HS Troponin 11 I) [facility]2022-12-08 15:17:00 Test Item Value Reference Range Interpretation Comments Ca Ion WB (test code = Ca Ion WB) 1.12 1.05-1.25 [facility]2022-12-08 15:17:00 Test Item Value Reference Range Interpretation Comments Ca Ion at pH 7.4 WB (test code = Ca Ion 1.10 1.05-1.25 at pH 7.4 WB) [facility] CenterDIDECKERVILLE [facility] [id number] 15:17:00 Test Item Value Reference Range Interpretation Comments HS Troponin I (test code = HS Troponin 11 I) [facility]2022-12-08 15:17:00 Test Item Value Reference Range Interpretation Comments Magnesium Lvl (test code = Magnesium 2.4 1.8-2.4 Lvl) [facility]2022-12-08 15:17:00 Test Item Value Reference Range Interpretation Comments Phosphorus (test code = Phosphorus) 1.7 2.5-4.5 [facility] CenterLyimwzmDHQIUKLOY1651-81-49 15:17:00 Test Item Value Reference Range Interpretation Comments Ca Ion WB (test code = Ca Ion WB) 1.12 1.05-1.25 [facility] CenterHiqwagtSXXDODSMC4960-82-73 15:17:00 Test Item Value Reference Range Interpretation Comments Ca Ion at pH 7.4 WB (test code = Ca Ion 1.10 1.05-1.25 at pH 7.4 WB) [facility] CenterRuuainkBMBAUZOTB7882-49-92 15:17:00 Test Item Value Reference Range Interpretation Comments Magnesium Lvl (test code = Magnesium 2.4 1.8-2.4 Lvl) [address]12-08 15:17:00 Test Item Value Reference Range Interpretation Comments Phosphorus (test code = Phosphorus) 1.7 2.5-4.5 [facility] CenterUkgbxdvTIBYPHMVO9627-96-80 15:17:00 Test Item Value Reference Range Interpretation Comments HS Troponin I (test code = HS Troponin 11 I) [facility]2022-12-08 15:17:00 Test Item Value Reference Range Interpretation Comments Ca Ion WB (test code = Ca Ion WB) 1.12 1.05-1.25 [facility]2022-12-08 15:17:00 Test Item Value Reference Range Interpretation Comments Ca Ion at pH 7.4 WB (test code = Ca Ion 1.10 1.05-1.25 at pH 7.4 WB) [facility] CenterDIDECKERVILLE COMMUNITY [id number] 15:17:00 Test Item Value Reference Range Interpretation Comments HS Troponin I (test code = HS Troponin 11 I) [facility]2022-12-08 15:17:00 Test Item Value Reference Range Interpretation Comments Magnesium Lvl (test code = Magnesium 2.4 1.8-2.4 Lvl) [facility]2022-12-08 15:17:00 Test Item Value Reference Range Interpretation Comments Phosphorus (test code = Phosphorus) 1.7 2.5-4.5 [facility] CenterUklfjebZYHGCTPXI7789-78-77 15:17:00 Test Item Value Reference Range Interpretation Comments Ca Ion WB (test code = Ca Ion WB) 1.12 1.05-1.25 [facility] CenterPbaszeuEPXXGWUZZ5063-54-71 15:17:00 Test Item Value Reference Range Interpretation Comments Ca Ion at pH 7.4 WB (test code = Ca Ion 1.10 1.05-1.25 at pH 7.4 WB) [facility] CenterUqclnchHFKIENFXB1727-46-81 15:17:00 Test Item Value Reference Range Interpretation Comments Magnesium Lvl (test code = Magnesium 2.4 1.8-2.4 Lvl) [facility] CenterFrkwebkBWVIRFVQP0604-79-77 15:17:00 Test Item Value Reference Range Interpretation Comments Phosphorus (test code = Phosphorus) 1.7 2.5-4.5 [facility] CenterSqhrnweNXKIYETET1467-69-20 15:17:00 Test Item Value Reference Range Interpretation Comments HS Troponin I (test code = HS Troponin 11 I) [facility]ATHY[facility]ID [id number] 15:17:00 Test Item Value Reference Range Interpretation Comments Ca Ion WB (test code = Ca Ion WB) 1.12 1.05-1.25 [facility]PARATHYROID [id number] 15:17:00 Test Item Value Reference Range Interpretation Comments Ca Ion at pH 7.4 WB (test code = Ca Ion 1.10 1.05-1.25 at pH 7.4 WB) [facility] AND [id number] 23:46:00 Test Item Value Reference Range Interpretation Comments UA Sq Epi (test code = UA Sq Occasional /LPF Epi) [facility]inaannMARCIE AND [id number] 23:46:00 Test Item Value Reference Range Interpretation Comments UA WBC (test code = 1 See_Comment [Automa suze message] The UA WBC) system which ge nerated this result transmit suze reference range : <=5. The reference range was not used to interpr et this result as anselmo l/abnormal. [facility] AND [id number] 23:46:00 Test Item Value Reference Range Interpretation Comments UA RBC (test code = 14 See_Comment [Automa suze message] The UA RBC) system which ge nerated this result transmit suze reference range : <=2. The reference range was not used to interpr et this result as anselmo l/abnormal. [facility] AND [id number] 23:46:00 Test Item Value Reference Range Interpretation Comments UA Bacteria (test code = UA Occasional /HPF Bacteria) [facility] AND [id number] 23:46:00 Test Item Value Reference Range Interpretation Comments UA Mucus (test code = UA Mucus) Few /LPF [facility] AND [id number] 23:46:00 Test Item Value Reference Range Interpretation Comments UA Color (test code = Yellow *NA*(04/13/22 UA Color) 5:46 PM) [facility]annMAR[facility] AND [id number] 23:46:00 Test Item Value Reference Range Interpretation Comments UA Turbidity (test code = Clear (04/13/22 5:46 UA Turbidity) PM) [facility] AND [id number] 23:46:00 Test Item Value Reference Range Interpretation Comments UA Spec Grav (test code = UA Spec 1.020 1 Grav) [facility] AND [id number] 23:46:00 Test Item Value Reference Range Interpretation Comments UA pH (test code = UA pH) 6.5 1 5.0-8.0 [facility] AND [id number] 23:46:00 Test Item Value Reference Range Interpretation Comments UA Protein (test code Negative (04/13/22 5:46 = UA Protein) PM) [facility] AND [id number] 23:46:00 Test Item Value Reference Range Interpretation Comments UA Glucose (test code Negative (04/13/22 5:46 = UA Glucose) PM) [facility] AND [id number] 23:46:00 Test Item Value Reference Range Interpretation Comments UA Ketones (test code = Trace *ABN*(04/13/22 UA Ketones) 5:46 PM) [facility] AND [id number] 23:46:00 Test Item Value Reference Range Interpretation Comments UA Bili (test code = Negative *NA*(04/13/22 UA Bili) 5:46 PM) [facility] AND [id number] 23:46:00 Test Item Value Reference Range Interpretation Comments UA Blood (test code = Small *ABN*(04/13/22 UA Blood) 5:46 PM) [facility] AND [id number] 23:46:00 Test Item Value Reference Range Interpretation Comments UA Urobilinogen (test code = UA 0.2 0.1-1.0 Urobilinogen) [facility] AND [id number] 23:46:00 Test Item Value Reference Range Interpretation Comments UA Nitrite (test code Negative (04/13/22 5:46 = UA Nitrite) PM) [facility] AND [id number] 23:46:00 Test Item Value Reference Range Interpretation Comments UA Leuk Est (test Negative (04/13/22 5:46 code = UA Leuk Est) PM) [facility] AND [id number] 23:46:00 Test Item Value Reference Range Interpretation Comments UA Sq Epi (test code = UA Sq Occasional /LPF Epi) [facility] AND [id number] 23:46:00 Test Item Value Reference Range Interpretation Comments UA WBC (test code = 1 See_Comment [Automa suze message] The UA WBC) system which ge nerated this result transmit suze reference range : <=5. The reference range was not used to interpr et this result as anselmo l/abnormal. [facility] AND [id number] 23:46:00 Test Item Value Reference Range Interpretation Comments UA RBC (test code = 14 See_Comment [Automa suze message] The UA RBC) system which ge nerated this result transmit suze reference range : <=2. The reference range was not used to interpr et this result as anselmo l/abnormal. [facility] AND [id number] 23:46:00 Test Item Value Reference Range Interpretation Comments UA Bacteria (test code = UA Occasional /HPF Bacteria) [facility] AND [id number] 23:46:00 Test Item Value Reference Range Interpretation Comments UA Mucus (test code = UA Mucus) Few /LPF [facility] AND [id number] 23:46:00 Test Item Value Reference Range Interpretation Comments UA Color (test code = Yellow *NA*(04/13/22 UA Color) 5:46 PM) [facility] AND [id number] 23:46:00 Test Item Value Reference Range Interpretation Comments UA Turbidity (test code = Clear (04/13/22 5:46 UA Turbidity) PM) [facility]ann[facility] AND [id number] 23:46:00 Test Item Value Reference Range Interpretation Comments UA Spec Grav (test code = UA Spec 1.020 1 Grav) [facility] AND [id number] 23:46:00 Test Item Value Reference Range Interpretation Comments UA pH (test code = UA pH) 6.5 1 5.0-8.0 [facility]ann[facility] AND [id number] 23:46:00 Test Item Value Reference Range Interpretation Comments UA Protein (test code Negative (04/13/22 5:46 = UA Protein) PM) [facility] AND [id number] 23:46:00 Test Item Value Reference Range Interpretation Comments UA Glucose (test code Negative (04/13/22 5:46 = UA Glucose) PM) [facility]ann[facility] AND [id number] 23:46:00 Test Item Value Reference Range Interpretation Comments UA Ketones (test code = Trace *ABN*(04/13/22 UA Ketones) 5:46 PM) [facility] AND [id number] 23:46:00 Test Item Value Reference Range Interpretation Comments UA Bili (test code = Negative *NA*(04/13/22 UA Bili) 5:46 PM) [facility] AND [id number] 23:46:00 Test Item Value Reference Range Interpretation Comments UA Blood (test code = Small *ABN*(04/13/22 UA Blood) 5:46 PM) [facility] AND [id number] 23:46:00 Test Item Value Reference Range Interpretation Comments UA Urobilinogen (test code = UA 0.2 0.1-1.0 Urobilinogen) [facility] AND [id number] 23:46:00 Test Item Value Reference Range Interpretation Comments UA Nitrite (test code Negative (04/13/22 5:46 = UA Nitrite) PM) [facility] AND [id number] 23:46:00 Test Item Value Reference Range Interpretation Comments UA Leuk Est (test Negative (04/13/22 5:46 code = UA Leuk Est) PM) [facility] AND [id number] 23:46:00 Test Item Value Reference Range Interpretation Comments UA Sq Epi (test code = UA Sq Occasional /LPF Epi) [facility] AND [id number] 23:46:00 Test Item Value Reference Range Interpretation Comments UA WBC (test code = 1 See_Comment [Automa suze message] The UA WBC) system which ge nerated this result transmit szue reference range : <=5. The reference range was not used to interpr et this result as anselmo l/abnormal. [facility] AND [id number] 23:46:00 Test Item Value Reference Range Interpretation Comments UA RBC (test code = 14 See_Comment [Automa suze message] The UA RBC) system which ge nerated this result transmit suze reference range : <=2. The reference range was not used to interpr et this result as anselmo l/abnormal. [facility] AND [id number] 23:46:00 Test Item Value Reference Range Interpretation Comments UA Bacteria (test code = UA Occasional /HPF Bacteria) [facility] AND [id number] 23:46:00 Test Item Value Reference Range Interpretation Comments UA Mucus (test code = UA Mucus) Few /LPF [facility] AND [id number] 23:46:00 Test Item Value Reference Range Interpretation Comments UA Color (test code = Yellow *NA*(04/13/22 UA Color) 5:46 PM) [facility] AND [id number] 23:46:00 Test Item Value Reference Range Interpretation Comments UA Turbidity (test code = Clear (04/13/22 5:46 UA Turbidity) PM) [facility] AND [id number] 23:46:00 Test Item Value Reference Range Interpretation Comments UA Spec Grav (test code = UA Spec 1.020 1 Grav) [facility] AND [id number] 23:46:00 Test Item Value Reference Range Interpretation Comments UA pH (test code = UA pH) 6.5 1 5.0-8.0 [facility] AND [id number] 23:46:00 Test Item Value Reference Range Interpretation Comments UA Protein (test code Negative (04/13/22 5:46 = UA Protein) PM) [facility] AND [id number] 23:46:00 Test Item Value Reference Range Interpretation Comments UA Glucose (test code Negative (04/13/22 5:46 = UA Glucose) PM) [facility] AND [id number] 23:46:00 Test Item Value Reference Range Interpretation Comments UA Ketones (test code = Trace *ABN*(04/13/22 UA Ketones) 5:46 PM) [facility] [id number] 23:46:00 Test Item Value Reference Range Interpretation Comments UA Bili (test code = Negative *NA*(04/13/22 UA Bili) 5:46 PM) [facility] [id number] 23:46:00 Test Item Value Reference Range Interpretation Comments UA Blood (test code = Small *ABN*(04/13/22 UA Blood) 5:46 PM) [facility] [id number] 23:46:00 Test Item Value Reference Range Interpretation Comments UA Urobilinogen (test code = UA 0.2 0.1-1.0 Urobilinogen) [facility] [id number] 23:46:00 Test Item Value Reference Range Interpretation Comments UA Nitrite (test code Negative (04/13/22 5:46 = UA Nitrite) PM) [facility] [id number] 23:46:00 Test Item Value Reference Range Interpretation Comments UA Leuk Est (test Negative (04/13/22 5:46 code = UA Leuk Est) PM) [facility] [id number] 23:46:00 Test Item Value Reference Range Interpretation Comments UA Sq Epi (test code = UA Sq Occasional /LPF Epi) [facility] [id number] 23:46:00 Test Item Value Reference Range Interpretation Comments UA WBC (test code = 1 See_Comment [Automa suze message] The UA WBC) system which ge nerated this result transmit suze reference range : <=5. The reference range was not used to interpr et this result as anselmo l/abnormal. [facility] [id number] 23:46:00 Test Item Value Reference Range Interpretation Comments UA RBC (test code = 14 See_Comment [Automa suze message] The UA RBC) system which ge nerated this result transmit suze reference range : <=2. The reference range was not used to interpr et this result as anselmo l/abnormal. [facility] [id number] 23:46:00 Test Item Value Reference Range Interpretation Comments UA Bacteria (test code = UA Occasional /HPF Bacteria) [facility] [id number] 23:46:00 Test Item Value Reference Range Interpretation Comments UA Mucus (test code = UA Mucus) Few /LPF [facility] [id number] 23:46:00 Test Item Value Reference Range Interpretation Comments UA Color (test code = Yellow *NA*(04/13/22 UA Color) 5:46 PM) [facility] [id number] 23:46:00 Test Item Value Reference Range Interpretation Comments UA Turbidity (test code = Clear (04/13/22 5:46 UA Turbidity) PM) [facility] [id number] 23:46:00 Test Item Value Reference Range Interpretation Comments UA Spec Grav (test code = UA Spec 1.020 1 Grav) [facility] [id number] 23:46:00 Test Item Value Reference Range Interpretation Comments UA pH (test code = UA pH) 6.5 1 5.0-8.0 [facility] AND [id number] 23:46:00 Test Item Value Reference Range Interpretation Comments UA Protein (test code Negative (04/13/22 5:46 = UA Protein) PM) [facility] AND [id number] 23:46:00 Test Item Value Reference Range Interpretation Comments UA Glucose (test code Negative (04/13/22 5:46 = UA Glucose) PM) [facility] AND [id number] 23:46:00 Test Item Value Reference Range Interpretation Comments UA Ketones (test code = Trace *ABN*(04/13/22 UA Ketones) 5:46 PM) [facility] AND [id number] 23:46:00 Test Item Value Reference Range Interpretation Comments UA Bili (test code = Negative *NA*(04/13/22 UA Bili) 5:46 PM) [facility] AND [id number] 23:46:00 Test Item Value Reference Range Interpretation Comments UA Blood (test code = Small *ABN*(04/13/22 UA Blood) 5:46 PM) [facility] AND [id number] 23:46:00 Test Item Value Reference Range Interpretation Comments UA Urobilinogen (test code = UA 0.2 0.1-1.0 Urobilinogen) [facility] AND [id number] 23:46:00 Test Item Value Reference Range Interpretation Comments UA Nitrite (test code Negative (04/13/22 5:46 = UA Nitrite) PM) [facility] AND [id number] 23:46:00 Test Item Value Reference Range Interpretation Comments UA Leuk Est (test Negative (04/13/22 5:46 code = UA Leuk Est) PM) [facility] AND [id number] 23:46:00 Test Item Value Reference Range Interpretation Comments UA Sq Epi (test code = UA Sq Occasional /LPF Epi) [facility] AND [id number] 23:46:00 Test Item Value Reference Range Interpretation Comments UA WBC (test code = 1 See_Comment [Automa suze message] The UA WBC) system which ge nerated this result transmit suze reference range : <=5. The reference range was not used to interpr et this result as anselmo l/abnormal. [facility] [id number] 23:46:00 Test Item Value Reference Range Interpretation Comments UA RBC (test code = 14 See_Comment [Automa suze message] The UA RBC) system which ge nerated this result transmit suze reference range : <=2. The reference range was not used to interpr et this result as anselmo l/abnormal. [facility] [id number] 23:46:00 Test Item Value Reference Range Interpretation Comments UA Bacteria (test code = UA Occasional /HPF Bacteria) [facility] [id number] 23:46:00 Test Item Value Reference Range Interpretation Comments UA Mucus (test code = UA Mucus) Few /LPF [facility] [id number] 23:46:00 Test Item Value Reference Range Interpretation Comments UA Color (test code = Yellow *NA*(04/13/22 UA Color) 5:46 PM) [facility] [id number] 23:46:00 Test Item Value Reference Range Interpretation Comments UA Turbidity (test code = Clear (04/13/22 5:46 UA Turbidity) PM) [facility] [id number] 23:46:00 Test Item Value Reference Range Interpretation Comments UA Spec Grav (test code = UA Spec 1.020 1 Grav) [facility] AND [id number] 23:46:00 Test Item Value Reference Range Interpretation Comments UA pH (test code = UA pH) 6.5 1 5.0-8.0 [facility] [id number] 23:46:00 Test Item Value Reference Range Interpretation Comments UA Protein (test code Negative (04/13/22 5:46 = UA Protein) PM) [facility] [id number] 23:46:00 Test Item Value Reference Range Interpretation Comments UA Glucose (test code Negative (04/13/22 5:46 = UA Glucose) PM) [facility] [id number] 23:46:00 Test Item Value Reference Range Interpretation Comments UA Ketones (test code = Trace *ABN*(04/13/22 UA Ketones) 5:46 PM) [facility] [id number] 23:46:00 Test Item Value Reference Range Interpretation Comments UA Bili (test code = Negative *NA*(04/13/22 UA Bili) 5:46 PM) [facility] [id number] 23:46:00 Test Item Value Reference Range Interpretation Comments UA Blood (test code = Small *ABN*(04/13/22 UA Blood) 5:46 PM) [facility] [id number] 23:46:00 Test Item Value Reference Range Interpretation Comments UA Urobilinogen (test code = UA 0.2 0.1-1.0 Urobilinogen) [facility] [id number] 23:46:00 Test Item Value Reference Range Interpretation Comments UA Nitrite (test code Negative (04/13/22 5:46 = UA Nitrite) PM) [facility] [id number] 23:46:00 Test Item Value Reference Range Interpretation Comments UA Leuk Est (test Negative (04/13/22 5:46 code = UA Leuk Est) PM) [facility] [id number] 23:46:00 Test Item Value Reference Range Interpretation Comments UA Sq Epi (test code = UA Sq Occasional /LPF Epi) [facility] [id number] 23:46:00 Test Item Value Reference Range Interpretation Comments UA WBC (test code = 1 See_Comment [Automa suze message] The UA WBC) system which ge nerated this result transmit suze reference range : <=5. The reference range was not used to interpr et this result as anselmo l/abnormal. [facility] [id number] 23:46:00 Test Item Value Reference Range Interpretation Comments UA RBC (test code = 14 See_Comment [Automa suze message] The UA RBC) system which ge nerated this result transmit suze reference range : <=2. The reference range was not used to interpr et this result as anselmo l/abnormal. [facility] [id number] 23:46:00 Test Item Value Reference Range Interpretation Comments UA Bacteria (test code = UA Occasional /HPF Bacteria) [facility] [id number] 23:46:00 Test Item Value Reference Range Interpretation Comments UA Mucus (test code = UA Mucus) Few /LPF [facility] AND [id number] 23:46:00 Test Item Value Reference Range Interpretation Comments UA Color (test code = Yellow *NA*(04/13/22 UA Color) 5:46 PM) [facility] AND [id number] 23:46:00 Test Item Value Reference Range Interpretation Comments UA Turbidity (test code = Clear (04/13/22 5:46 UA Turbidity) PM) [facility] AND [id number] 23:46:00 Test Item Value Reference Range Interpretation Comments UA Spec Grav (test code = UA Spec 1.020 1 Grav) [facility] AND [id number] 23:46:00 Test Item Value Reference Range Interpretation Comments UA pH (test code = UA pH) 6.5 1 5.0-8.0 [facility] AND [id number] 23:46:00 Test Item Value Reference Range Interpretation Comments UA Protein (test code Negative (04/13/22 5:46 = UA Protein) PM) [facility] AND [id number] 23:46:00 Test Item Value Reference Range Interpretation Comments UA Glucose (test code Negative (04/13/22 5:46 = UA Glucose) PM) [facility] AND [id number] 23:46:00 Test Item Value Reference Range Interpretation Comments UA Ketones (test code = Trace *ABN*(04/13/22 UA Ketones) 5:46 PM) [facility] AND [id number] 23:46:00 Test Item Value Reference Range Interpretation Comments UA Bili (test code = Negative *NA*(04/13/22 UA Bili) 5:46 PM) [facility] AND [id number] 23:46:00 Test Item Value Reference Range Interpretation Comments UA Blood (test code = Small *ABN*(04/13/22 UA Blood) 5:46 PM) [facility] AND [id number] 23:46:00 Test Item Value Reference Range Interpretation Comments UA Urobilinogen (test code = UA 0.2 0.1-1.0 Urobilinogen) [facility] AND [id number] 23:46:00 Test Item Value Reference Range Interpretation Comments UA Nitrite (test code Negative (04/13/22 5:46 = UA Nitrite) PM) [facility] [id number] 23:46:00 Test Item Value Reference Range Interpretation Comments UA Leuk Est (test Negative (04/13/22 5:46 code = UA Leuk Est) PM) [facility] [id number] 23:46:00 Test Item Value Reference Range Interpretation Comments UA Sq Epi (test code = UA Sq Occasional /LPF Epi) [facility] [id number] 23:46:00 Test Item Value Reference Range Interpretation Comments UA WBC (test code = 1 See_Comment [Automa suze message] The UA WBC) system which ge nerated this result transmit suze reference range : <=5. The reference range was not used to interpr et this result as anselmo l/abnormal. [facility] [id number] 23:46:00 Test Item Value Reference Range Interpretation Comments UA RBC (test code = 14 See_Comment [Automa suze message] The UA RBC) system which ge nerated this result transmit suze reference range : <=2. The reference range was not used to interpr et this result as anselmo l/abnormal. [facility] [id number] 23:46:00 Test Item Value Reference Range Interpretation Comments UA Bacteria (test code = UA Occasional /HPF Bacteria) [facility] [id number] 23:46:00 Test Item Value Reference Range Interpretation Comments UA Mucus (test code = UA Mucus) Few /LPF [facility] [id number] 23:46:00 Test Item Value Reference Range Interpretation Comments UA Color (test code = Yellow *NA*(04/13/22 UA Color) 5:46 PM) [facility] [id number] 23:46:00 Test Item Value Reference Range Interpretation Comments UA Turbidity (test code = Clear (04/13/22 5:46 UA Turbidity) PM) [facility] [id number] 23:46:00 Test Item Value Reference Range Interpretation Comments UA Spec Grav (test code = UA Spec 1.020 1 Grav) [facility] [id number] 23:46:00 Test Item Value Reference Range Interpretation Comments UA pH (test code = UA pH) 6.5 1 5.0-8.0 [facility] [id number] 23:46:00 Test Item Value Reference Range Interpretation Comments UA Protein (test code Negative (04/13/22 5:46 = UA Protein) PM) [facility] [id number] 23:46:00 Test Item Value Reference Range Interpretation Comments UA Glucose (test code Negative (04/13/22 5:46 = UA Glucose) PM) [facility] AND [id number] 23:46:00 Test Item Value Reference Range Interpretation Comments UA Ketones (test code = Trace *ABN*(04/13/22 UA Ketones) 5:46 PM) [facility] AND [id number] 23:46:00 Test Item Value Reference Range Interpretation Comments UA Bili (test code = Negative *NA*(04/13/22 UA Bili) 5:46 PM) [facility] AND [id number] 23:46:00 Test Item Value Reference Range Interpretation Comments UA Blood (test code = Small *ABN*(04/13/22 UA Blood) 5:46 PM) [facility] AND [id number] 23:46:00 Test Item Value Reference Range Interpretation Comments UA Urobilinogen (test code = UA 0.2 0.1-1.0 Urobilinogen) [facility] AND [id number] 23:46:00 Test Item Value Reference Range Interpretation Comments UA Nitrite (test code Negative (04/13/22 5:46 = UA Nitrite) PM) [facility] AND [id number] 23:46:00 Test Item Value Reference Range Interpretation Comments UA Leuk Est (test Negative (04/13/22 5:46 code = UA Leuk Est) PM) [facility] AND [id number] 23:46:00 Test Item Value Reference Range Interpretation Comments UA Sq Epi (test code = UA Sq Occasional /LPF Epi) [facility] AND [id number] 23:46:00 Test Item Value Reference Range Interpretation Comments UA WBC (test code = 1 See_Comment [Automa suze message] The UA WBC) system which ge nerated this result transmit suze reference range : <=5. The reference range was not used to interpr et this result as anselmo l/abnormal. [facility] AND [id number] 23:46:00 Test Item Value Reference Range Interpretation Comments UA RBC (test code = 14 See_Comment [Automa suze message] The UA RBC) system which ge nerated this result transmit suze reference range : <=2. The reference range was not used to interpr et this result as anselmo l/abnormal. [facility] AND [id number] 23:46:00 Test Item Value Reference Range Interpretation Comments UA Bacteria (test code = UA Occasional /HPF Bacteria) [facility] AND [id number] 23:46:00 Test Item Value Reference Range Interpretation Comments UA Mucus (test code = UA Mucus) Few /LPF [facility] AND [id number] 23:46:00 Test Item Value Reference Range Interpretation Comments UA Color (test code = Yellow *NA*(04/13/22 UA Color) 5:46 PM) [facility] AND [id number] 23:46:00 Test Item Value Reference Range Interpretation Comments UA Turbidity (test code = Clear (04/13/22 5:46 UA Turbidity) PM) [facility] AND [id number] 23:46:00 Test Item Value Reference Range Interpretation Comments UA Spec Grav (test code = UA Spec 1.020 1 Grav) [facility] AND [id number] 23:46:00 Test Item Value Reference Range Interpretation Comments UA pH (test code = UA pH) 6.5 1 5.0-8.0 [facility] AND [id number] 23:46:00 Test Item Value Reference Range Interpretation Comments UA Protein (test code Negative (04/13/22 5:46 = UA Protein) PM) [facility] AND [id number] 23:46:00 Test Item Value Reference Range Interpretation Comments UA Glucose (test code Negative (04/13/22 5:46 = UA Glucose) PM) [facility] AND [id number] 23:46:00 Test Item Value Reference Range Interpretation Comments UA Ketones (test code = Trace *ABN*(04/13/22 UA Ketones) 5:46 PM) [facility] AND [id number] 23:46:00 Test Item Value Reference Range Interpretation Comments UA Bili (test code = Negative *NA*(04/13/22 UA Bili) 5:46 PM) [facility] [id number] 23:46:00 Test Item Value Reference Range Interpretation Comments UA Blood (test code = Small *ABN*(04/13/22 UA Blood) 5:46 PM) [facility] [id number] 23:46:00 Test Item Value Reference Range Interpretation Comments UA Urobilinogen (test code = UA 0.2 0.1-1.0 Urobilinogen) [facility] [id number] 23:46:00 Test Item Value Reference Range Interpretation Comments UA Nitrite (test code Negative (04/13/22 5:46 = UA Nitrite) PM) [facility] [id number] 23:46:00 Test Item Value Reference Range Interpretation Comments UA Leuk Est (test Negative (04/13/22 5:46 code = UA Leuk Est) PM) [facility] [id number] 23:46:00 Test Item Value Reference Range Interpretation Comments UA Sq Epi (test code = UA Sq Occasional /LPF Epi) [facility] [id number] 23:46:00 Test Item Value Reference Range Interpretation Comments UA WBC (test code = 1 See_Comment [Automa suze message] The UA WBC) system which ge nerated this result transmit suze reference range : <=5. The reference range was not used to interpr et this result as anselmo l/abnormal. [facility] [id number] 23:46:00 Test Item Value Reference Range Interpretation Comments UA RBC (test code = 14 See_Comment [Automa suze message] The UA RBC) system which ge nerated this result transmit suze reference range : <=2. The reference range was not used to interpr et this result as anselmo l/abnormal. [facility] [id number] 23:46:00 Test Item Value Reference Range Interpretation Comments UA Bacteria (test code = UA Occasional /HPF Bacteria) [facility] [id number] 23:46:00 Test Item Value Reference Range Interpretation Comments UA Mucus (test code = UA Mucus) Few /LPF [facility] [id number] 23:46:00 Test Item Value Reference Range Interpretation Comments UA Color (test code = Yellow *NA*(04/13/22 UA Color) 5:46 PM) [facility] AND [id number] 23:46:00 Test Item Value Reference Range Interpretation Comments UA Turbidity (test code = Clear (04/13/22 5:46 UA Turbidity) PM) [facility] AND [id number] 23:46:00 Test Item Value Reference Range Interpretation Comments UA Spec Grav (test code = UA Spec 1.020 1 Grav) [facility] AND [id number] 23:46:00 Test Item Value Reference Range Interpretation Comments UA pH (test code = UA pH) 6.5 1 5.0-8.0 [facility] AND [id number] 23:46:00 Test Item Value Reference Range Interpretation Comments UA Protein (test code Negative (04/13/22 5:46 = UA Protein) PM) [facility] AND [id number] 23:46:00 Test Item Value Reference Range Interpretation Comments UA Glucose (test code Negative (04/13/22 5:46 = UA Glucose) PM) [facility] AND [id number] 23:46:00 Test Item Value Reference Range Interpretation Comments UA Ketones (test code = Trace *ABN*(04/13/22 UA Ketones) 5:46 PM) [facility] AND [id number] 23:46:00 Test Item Value Reference Range Interpretation Comments UA Bili (test code = Negative *NA*(04/13/22 UA Bili) 5:46 PM) [facility] AND [id number] 23:46:00 Test Item Value Reference Range Interpretation Comments UA Blood (test code = Small *ABN*(04/13/22 UA Blood) 5:46 PM) [facility] AND [id number] 23:46:00 Test Item Value Reference Range Interpretation Comments UA Urobilinogen (test code = UA 0.2 0.1-1.0 Urobilinogen) [facility] AND [id number] 23:46:00 Test Item Value Reference Range Interpretation Comments UA Nitrite (test code Negative (04/13/22 5:46 = UA Nitrite) PM) [facility] [id number] 23:46:00 Test Item Value Reference Range Interpretation Comments UA Leuk Est (test Negative (04/13/22 5:46 code = UA Leuk Est) PM) [facility] [id number] 23:46:00 Test Item Value Reference Range Interpretation Comments UA Sq Epi (test code = UA Sq Occasional /LPF Epi) [facility] [id number] 23:46:00 Test Item Value Reference Range Interpretation Comments UA WBC (test code = 1 See_Comment [Automa suze message] The UA WBC) system which ge nerated this result transmit suze reference range : <=5. The reference range was not used to interpr et this result as anselmo l/abnormal. [facility] [id number] 23:46:00 Test Item Value Reference Range Interpretation Comments UA RBC (test code = 14 See_Comment [Automa suze message] The UA RBC) system which ge nerated this result transmit suze reference range : <=2. The reference range was not used to interpr et this result as anselmo l/abnormal. [facility] [id number] 23:46:00 Test Item Value Reference Range Interpretation Comments UA Bacteria (test code = UA Occasional /HPF Bacteria) [facility] [id number] 23:46:00 Test Item Value Reference Range Interpretation Comments UA Mucus (test code = UA Mucus) Few /LPF [facility] [id number] 23:46:00 Test Item Value Reference Range Interpretation Comments UA Color (test code = Yellow *NA*(04/13/22 UA Color) 5:46 PM) [facility] [id number] 23:46:00 Test Item Value Reference Range Interpretation Comments UA Turbidity (test code = Clear (04/13/22 5:46 UA Turbidity) PM) [facility] [id number] 23:46:00 Test Item Value Reference Range Interpretation Comments UA Spec Grav (test code = UA Spec 1.020 1 Grav) [facility] [id number] 23:46:00 Test Item Value Reference Range Interpretation Comments UA pH (test code = UA pH) 6.5 1 5.0-8.0 [facility] [id number] 23:46:00 Test Item Value Reference Range Interpretation Comments UA Protein (test code Negative (04/13/22 5:46 = UA Protein) PM) [facility] AND [id number] 23:46:00 Test Item Value Reference Range Interpretation Comments UA Glucose (test code Negative (04/13/22 5:46 = UA Glucose) PM) [facility] AND [id number] 23:46:00 Test Item Value Reference Range Interpretation Comments UA Ketones (test code = Trace *ABN*(04/13/22 UA Ketones) 5:46 PM) [facility] AND [id number] 23:46:00 Test Item Value Reference Range Interpretation Comments UA Bili (test code = Negative *NA*(04/13/22 UA Bili) 5:46 PM) [facility] AND [id number] 23:46:00 Test Item Value Reference Range Interpretation Comments UA Blood (test code = Small *ABN*(04/13/22 UA Blood) 5:46 PM) [facility] AND [id number] 23:46:00 Test Item Value Reference Range Interpretation Comments UA Urobilinogen (test code = UA 0.2 0.1-1.0 Urobilinogen) [facility] AND [id number] 23:46:00 Test Item Value Reference Range Interpretation Comments UA Nitrite (test code Negative (04/13/22 5:46 = UA Nitrite) PM) [facility] AND [id number] 23:46:00 Test Item Value Reference Range Interpretation Comments UA Leuk Est (test Negative (04/13/22 5:46 code = UA Leuk Est) PM) [facility] [id number] 18:05:00 Test Item Value Reference Range Interpretation Comments Lactic Acid Lvl (test code = Lactic 0.7 0.5-2.2 Acid Lvl) [id number] 18:05:00 Test Item Value Reference Range Interpretation Comments Lactic Acid Lvl (test code = Lactic 0.7 0.5-2.2 Acid Lvl) [facility]2022-12-07 18:05:00 Test Item Value Reference Range Interpretation Comments Lactic Acid Lvl (test code = Lactic 0.7 0.5-2.2 Acid Lvl) [place] [address]-12-07 18:05:00 Test Item Value Reference Range Interpretation Comments Lactic Acid Lvl (test code = Lactic 0.7 0.5-2.2 Acid Lvl) [place] [id number] 18:05:00 Test Item Value Reference Range Interpretation Comments Lactic Acid Lvl (test code = Lactic 0.7 0.5-2.2 Acid Lvl) [address]12-07 18:05:00 Test Item Value Reference Range Interpretation Comments Lactic Acid Lvl (test code = Lactic 0.7 0.5-2.2 Acid Lvl) [address]12-07 18:05:00 Test Item Value Reference Range Interpretation Comments Lactic Acid Lvl (test code = Lactic 0.7 0.5-2.2 Acid Lvl) [address]12-07 18:05:00 Test Item Value Reference Range Interpretation Comments Lactic Acid Lvl (test code = Lactic 0.7 0.5-2.2 Acid Lvl) [place] [id number] 18:05:00 Test Item Value Reference Range Interpretation Comments Lactic Acid Lvl (test code = Lactic 0.7 0.5-2.2 Acid Lvl) [address]12-07 18:05:00 Test Item Value Reference Range Interpretation Comments Lactic Acid Lvl (test code = Lactic 0.7 0.5-2.2 Acid Lvl) [place] [id number] 18:05:00 Test Item Value Reference Range Interpretation Comments Lactic Acid Lvl (test code = Lactic 0.7 0.5-2.2 Acid Lvl) [place] [address]-12-07 18:05:00 Test Item Value Reference Range Interpretation Comments Lactic Acid Lvl (test code = Lactic 0.7 0.5-2.2 Acid Lvl) [address]12-07 18:05:00 Test Item Value Reference Range Interpretation Comments Lactic Acid Lvl (test code = Lactic 0.7 0.5-2.2 Acid Lvl) [place] [address]-12-07 18:05:00 Test Item Value Reference Range Interpretation Comments Lactic Acid Lvl (test code = Lactic 0.7 0.5-2.2 Acid Lvl) [place] 826522-12-07 18:05:00 Test Item Value Reference Range Interpretation Comments Lactic Acid Lvl (test code = Lactic 0.7 0.5-2.2 Acid Lvl) [place] 610062-12-07 18:05:00 Test Item Value Reference Range Interpretation Comments Lactic Acid Lvl (test code = Lactic 0.7 0.5-2.2 Acid Lvl) [place] [id number] 14:52:00 Test Item Value Reference Range Interpretation Comments Lactic Acid Lvl (test code = Lactic 2.5 0.5-2.2 Acid Lvl) [address]12-07 14:52:00 Test Item Value Reference Range Interpretation Comments Lactic Acid Lvl (test code = Lactic 2.5 0.5-2.2 Acid Lvl) [address]12-07 14:52:00 Test Item Value Reference Range Interpretation Comments Lactic Acid Lvl (test code = Lactic 2.5 0.5-2.2 Acid Lvl) [place] [id number] 14:52:00 Test Item Value Reference Range Interpretation Comments Lactic Acid Lvl (test code = Lactic 2.5 0.5-2.2 Acid Lvl) [place] 826522-12-07 14:52:00 Test Item Value Reference Range Interpretation Comments Lactic Acid Lvl (test code = Lactic 2.5 0.5-2.2 Acid Lvl) [place] [address]-12-07 14:52:00 Test Item Value Reference Range Interpretation Comments Lactic Acid Lvl (test code = Lactic 2.5 0.5-2.2 Acid Lvl) [place] [address]-12-07 14:52:00 Test Item Value Reference Range Interpretation Comments Lactic Acid Lvl (test code = Lactic 2.5 0.5-2.2 Acid Lvl) [place] [address]-12-07 14:52:00 Test Item Value Reference Range Interpretation Comments Lactic Acid Lvl (test code = Lactic 2.5 0.5-2.2 Acid Lvl) [place] 610062-12-07 05:00:00 Test Item Value Reference Range Interpretation Comments U Amph Scr (test code Positive *ABN*(04/12/22 = U Amph Scr) 11:00 PM) [id number] 05:00:00 Test Item Value Reference Range Interpretation Comments U Sruthi Scr (test code Negative *NA*(04/12/22 = U Sruthi Scr) 11:00 PM) [facility] [id number] 05:00:00 Test Item Value Reference Range Interpretation Comments U Benzodiaz Scr (test Negative *NA*(04/12/22 code = U Benzodiaz Scr) 11:00 PM) [facility] CenterLharmvmMTLZUZNAD5584-11-13 05:00:00 Test Item Value Reference Range Interpretation Comments U Cocaine Scr (test Negative *NA*(04/12/22 code = U Cocaine Scr) 11:00 PM) [facility] [id number] 05:00:00 Test Item Value Reference Range Interpretation Comments U Cannab Scr (test Negative *NA*(04/12/22 code = U Cannab Scr) 11:00 PM) [facility] [id number] 05:00:00 Test Item Value Reference Range Interpretation Comments U Opiate Scr (test Negative *NA*(04/12/22 code = U Opiate Scr) 11:00 PM) [facility] [id number] 05:00:00 Test Item Value Reference Range Interpretation Comments U Phencyclidine Scr (test Negative code = U Phencyclidine *NA*(04/12/22 11:00 Scr) PM) [facility] [id number] 05:00:00 Test Item Value Reference Range Interpretation Comments UDS Note (test code = See Note (04/12/22 11:00 UDS Note) PM) [facility] [id number] 05:00:00 Test Item Value Reference Range Interpretation Comments U Amph Scr (test code Positive *ABN*(04/12/22 = U Amph Scr) 11:00 PM) [facility] [id number] 05:00:00 Test Item Value Reference Range Interpretation Comments U Sruthi Scr (test code Negative *NA*(04/12/22 = U Sruthi Scr) 11:00 PM) [facility] [id number] 05:00:00 Test Item Value Reference Range Interpretation Comments U Benzodiaz Scr (test Negative *NA*(04/12/22 code = U Benzodiaz Scr) 11:00 PM) [facility] [id number] 05:00:00 Test Item Value Reference Range Interpretation Comments U Cocaine Scr (test Negative *NA*(04/12/22 code = U Cocaine Scr) 11:00 PM) [facility] [id number] 05:00:00 Test Item Value Reference Range Interpretation Comments U Cannab Scr (test Negative *NA*(04/12/22 code = U Cannab Scr) 11:00 PM) [facility] [id number] 05:00:00 Test Item Value Reference Range Interpretation Comments U Opiate Scr (test Negative *NA*(04/12/22 code = U Opiate Scr) 11:00 PM) [facility] [id number] 05:00:00 Test Item Value Reference Range Interpretation Comments U Phencyclidine Scr (test Negative code = U Phencyclidine *NA*(04/12/22 11:00 Scr) PM) [facility] [id number] 05:00:00 Test Item Value Reference Range Interpretation Comments UDS Note (test code = See Note (04/12/22 11:00 UDS Note) PM) [facility] [id number] 05:00:00 Test Item Value Reference Range Interpretation Comments U Amph Scr (test code Positive *ABN*(04/12/22 = U Amph Scr) 11:00 PM) [facility] [id number] 05:00:00 Test Item Value Reference Range Interpretation Comments U Sruthi Scr (test code Negative *NA*(04/12/22 = U Sruthi Scr) 11:00 PM) [facility] Cen[id number] 05:00:00 Test Item Value Reference Range Interpretation Comments U Benzodiaz Scr (test Negative *NA*(04/12/22 code = U Benzodiaz Scr) 11:00 PM) [facility] [id number] 05:00:00 Test Item Value Reference Range Interpretation Comments U Cocaine Scr (test Negative *NA*(04/12/22 code = U Cocaine Scr) 11:00 PM) [facility] [id number] 05:00:00 Test Item Value Reference Range Interpretation Comments U Cannab Scr (test Negative *NA*(04/12/22 code = U Cannab Scr) 11:00 PM) [facility] [id number] 05:00:00 Test Item Value Reference Range Interpretation Comments U Opiate Scr (test Negative *NA*(04/12/22 code = U Opiate Scr) 11:00 PM) [facility] InhlxzxQYZXRTYDV5129-16-04 05:00:00 Test Item Value Reference Range Interpretation Comments U Phencyclidine Scr (test Negative code = U Phencyclidine *NA*(04/12/22 11:00 Scr) PM) [facility] [id number] 05:00:00 Test Item Value Reference Range Interpretation Comments UDS Note (test code = See Note (04/12/22 11:00 UDS Note) PM) [facility] [id number] 05:00:00 Test Item Value Reference Range Interpretation Comments U Amph Scr (test code Positive *ABN*(04/12/22 = U Amph Scr) 11:00 PM) [facility] [id number] 05:00:00 Test Item Value Reference Range Interpretation Comments U Sruthi Scr (test code Negative *NA*(04/12/22 = U Sruthi Scr) 11:00 PM) [facility] [id number] 05:00:00 Test Item Value Reference Range Interpretation Comments U Benzodiaz Scr (test Negative *NA*(04/12/22 code = U Benzodiaz Scr) 11:00 PM) [facility] [id number] 05:00:00 Test Item Value Reference Range Interpretation Comments U Cocaine Scr (test Negative *NA*(04/12/22 code = U Cocaine Scr) 11:00 PM) [facility] [id number] 05:00:00 Test Item Value Reference Range Interpretation Comments U Cannab Scr (test Negative *NA*(04/12/22 code = U Cannab Scr) 11:00 PM) [facility] [id number] 05:00:00 Test Item Value Reference Range Interpretation Comments U Opiate Scr (test Negative *NA*(04/12/22 code = U Opiate Scr) 11:00 PM) [facility] [id number] 05:00:00 Test Item Value Reference Range Interpretation Comments U Phencyclidine Scr (test Negative code = U Phencyclidine *NA*(04/12/22 11:00 Scr) PM) [facility] [id number] 05:00:00 Test Item Value Reference Range Interpretation Comments UDS Note (test code = See Note (04/12/22 11:00 UDS Note) PM) [facility] CenterUzjcwmhKOOFXSRIG6956-66-03 05:00:00 Test Item Value Reference Range Interpretation Comments U Amph Scr (test code Positive *ABN*(04/12/22 = U Amph Scr) 11:00 PM) [facility] [id number] 05:00:00 Test Item Value Reference Range Interpretation Comments U Sruthi Scr (test code Negative *NA*(04/12/22 = U Sruthi Scr) 11:00 PM) [facility] CenterSvfbafhULMAQFVFC1622-22-49 05:00:00 Test Item Value Reference Range Interpretation Comments U Benzodiaz Scr (test Negative *NA*(04/12/22 code = U Benzodiaz Scr) 11:00 PM) [facility] [id number] 05:00:00 Test Item Value Reference Range Interpretation Comments U Cocaine Scr (test Negative *NA*(04/12/22 code = U Cocaine Scr) 11:00 PM) [facility] Cen[id number] 05:00:00 Test Item Value Reference Range Interpretation Comments U Cannab Scr (test Negative *NA*(04/12/22 code = U Cannab Scr) 11:00 PM) [facility] [id number] 05:00:00 Test Item Value Reference Range Interpretation Comments U Opiate Scr (test Negative *NA*(04/12/22 code = U Opiate Scr) 11:00 PM) [facility] Cen[id number] 05:00:00 Test Item Value Reference Range Interpretation Comments U Phencyclidine Scr (test Negative code = U Phencyclidine *NA*(04/12/22 11:00 Scr) PM) [facility] [id number] 05:00:00 Test Item Value Reference Range Interpretation Comments UDS Note (test code = See Note (04/12/22 11:00 UDS Note) PM) [facility] [id number] 05:00:00 Test Item Value Reference Range Interpretation Comments U Amph Scr (test code Positive *ABN*(04/12/22 = U Amph Scr) 11:00 PM) [facility] [id number] 05:00:00 Test Item Value Reference Range Interpretation Comments U Sruthi Scr (test code Negative *NA*(04/12/22 = U Sruthi Scr) 11:00 PM) [facility] [id number] 05:00:00 Test Item Value Reference Range Interpretation Comments U Benzodiaz Scr (test Negative *NA*(04/12/22 code = U Benzodiaz Scr) 11:00 PM) [facility] [id number] 05:00:00 Test Item Value Reference Range Interpretation Comments U Cocaine Scr (test Negative *NA*(04/12/22 code = U Cocaine Scr) 11:00 PM) [facility] [id number] 05:00:00 Test Item Value Reference Range Interpretation Comments U Cannab Scr (test Negative *NA*(04/12/22 code = U Cannab Scr) 11:00 PM) [facility] [id number] 05:00:00 Test Item Value Reference Range Interpretation Comments U Opiate Scr (test Negative *NA*(04/12/22 code = U Opiate Scr) 11:00 PM) [facility] [id number] 05:00:00 Test Item Value Reference Range Interpretation Comments U Phencyclidine Scr (test Negative code = U Phencyclidine *NA*(04/12/22 11:00 Scr) PM) [facility] HermannDR[facility] [id number] 05:00:00 Test Item Value Reference Range Interpretation Comments UDS Note (test code = See Note (04/12/22 11:00 UDS Note) PM) [facility] [id number] 05:00:00 Test Item Value Reference Range Interpretation Comments U Amph Scr (test code Positive *ABN*(04/12/22 = U Amph Scr) 11:00 PM) [facility] [id number] 05:00:00 Test Item Value Reference Range Interpretation Comments U Sruthi Scr (test code Negative *NA*(04/12/22 = U Sruthi Scr) 11:00 PM) [facility] RijgulgPTVGYWYBC7006-13-11 05:00:00 Test Item Value Reference Range Interpretation Comments U Benzodiaz Scr (test Negative *NA*(04/12/22 code = U Benzodiaz Scr) 11:00 PM) [facility] [id number] 05:00:00 Test Item Value Reference Range Interpretation Comments U Cocaine Scr (test Negative *NA*(04/12/22 code = U Cocaine Scr) 11:00 PM) [facility] [id number] 05:00:00 Test Item Value Reference Range Interpretation Comments U Cannab Scr (test Negative *NA*(04/12/22 code = U Cannab Scr) 11:00 PM) [facility] [id number] 05:00:00 Test Item Value Reference Range Interpretation Comments U Opiate Scr (test Negative *NA*(04/12/22 code = U Opiate Scr) 11:00 PM) [facility] CenterHmytlomJNYZGCRXX5111-08-22 05:00:00 Test Item Value Reference Range Interpretation Comments U Phencyclidine Scr (test Negative code = U Phencyclidine *NA*(04/12/22 11:00 Scr) PM) [facility] CenterEehaouiVTIICRVWT0610-35-77 05:00:00 Test Item Value Reference Range Interpretation Comments UDS Note (test code = See Note (04/12/22 11:00 UDS Note) PM) [facility] [id number] 05:00:00 Test Item Value Reference Range Interpretation Comments U Amph Scr (test code Positive *ABN*(04/12/22 = U Amph Scr) 11:00 PM) [facility] [id number] 05:00:00 Test Item Value Reference Range Interpretation Comments U Sruthi Scr (test code Negative *NA*(04/12/22 = U Sruthi Scr) 11:00 PM) [facility] [id number] 05:00:00 Test Item Value Reference Range Interpretation Comments U Benzodiaz Scr (test Negative *NA*(04/12/22 code = U Benzodiaz Scr) 11:00 PM) [facility] [id number] 05:00:00 Test Item Value Reference Range Interpretation Comments U Cocaine Scr (test Negative *NA*(04/12/22 code = U Cocaine Scr) 11:00 PM) [facility] [id number] 05:00:00 Test Item Value Reference Range Interpretation Comments U Cannab Scr (test Negative *NA*(04/12/22 code = U Cannab Scr) 11:00 PM) [facility] [id number] 05:00:00 Test Item Value Reference Range Interpretation Comments U Opiate Scr (test Negative *NA*(04/12/22 code = U Opiate Scr) 11:00 PM) [facility] [id number] 05:00:00 Test Item Value Reference Range Interpretation Comments U Phencyclidine Scr (test Negative code = U Phencyclidine *NA*(04/12/22 11:00 Scr) PM) [facility] [id number] 05:00:00 Test Item Value Reference Range Interpretation Comments UDS Note (test code = See Note (04/12/22 11:00 UDS Note) PM) [facility] [id number] 05:00:00 Test Item Value Reference Range Interpretation Comments U Amph Scr (test code Positive *ABN*(04/12/22 = U Amph Scr) 11:00 PM) [facility] Hospi[id number] 05:00:00 Test Item Value Reference Range Interpretation Comments U Sruthi Scr (test code Negative *NA*(04/12/22 = U Sruthi Scr) 11:00 PM) [facility] [id number] 05:00:00 Test Item Value Reference Range Interpretation Comments U Benzodiaz Scr (test Negative *NA*(04/12/22 code = U Benzodiaz Scr) 11:00 PM) [facility] [id number] 05:00:00 Test Item Value Reference Range Interpretation Comments U Cocaine Scr (test Negative *NA*(04/12/22 code = U Cocaine Scr) 11:00 PM) [facility] HospitalKkjzifzIEUJHTLEH1668-21-48 05:00:00 Test Item Value Reference Range Interpretation Comments U Cannab Scr (test Negative *NA*(04/12/22 code = U Cannab Scr) 11:00 PM) [facility] Cen[id number] 05:00:00 Test Item Value Reference Range Interpretation Comments U Opiate Scr (test Negative *NA*(04/12/22 code = U Opiate Scr) 11:00 PM) [facility] CenterQhnvyudEVNQPXQUV9316-07-58 05:00:00 Test Item Value Reference Range Interpretation Comments U Phencyclidine Scr (test Negative code = U Phencyclidine *NA*(04/12/22 11:00 Scr) PM) [facility] [id number] 05:00:00 Test Item Value Reference Range Interpretation Comments UDS Note (test code = See Note (04/12/22 11:00 UDS Note) PM) [facility] [id number] 05:00:00 Test Item Value Reference Range Interpretation Comments U Amph Scr (test code Positive *ABN*(04/12/22 = U Amph Scr) 11:00 PM) [facility] [id number] 05:00:00 Test Item Value Reference Range Interpretation Comments U Sruthi Scr (test code Negative *NA*(04/12/22 = U Sruthi Scr) 11:00 PM) [facility] [id number] 05:00:00 Test Item Value Reference Range Interpretation Comments U Benzodiaz Scr (test Negative *NA*(04/12/22 code = U Benzodiaz Scr) 11:00 PM) [facility] [id number] 05:00:00 Test Item Value Reference Range Interpretation Comments U Cocaine Scr (test Negative *NA*(04/12/22 code = U Cocaine Scr) 11:00 PM) [facility] [id number] 05:00:00 Test Item Value Reference Range Interpretation Comments U Cannab Scr (test Negative *NA*(04/12/22 code = U Cannab Scr) 11:00 PM) [facility] [id number] 05:00:00 Test Item Value Reference Range Interpretation Comments U Opiate Scr (test Negative *NA*(04/12/22 code = U Opiate Scr) 11:00 PM) [facility] [id number] 05:00:00 Test Item Value Reference Range Interpretation Comments U Phencyclidine Scr (test Negative code = U Phencyclidine *NA*(04/12/22 11:00 Scr) PM) [facility] [id number] 05:00:00 Test Item Value Reference Range Interpretation Comments UDS Note (test code = See Note (04/12/22 11:00 UDS Note) PM) [facility] [id number] 05:00:00 Test Item Value Reference Range Interpretation Comments U Amph Scr (test code Positive *ABN*(04/12/22 = U Amph Scr) 11:00 PM) [facility] [id number] 05:00:00 Test Item Value Reference Range Interpretation Comments U Sruthi Scr (test code Negative *NA*(04/12/22 = U Sruthi Scr) 11:00 PM) [facility] CenterLboafbkDJFKHMIQQ8250-57-53 05:00:00 Test Item Value Reference Range Interpretation Comments U Benzodiaz Scr (test Negative *NA*(04/12/22 code = U Benzodiaz Scr) 11:00 PM) [facility] CenterWskkmdpAFMPJLBJO7113-96-93 05:00:00 Test Item Value Reference Range Interpretation Comments U Cocaine Scr (test Negative *NA*(04/12/22 code = U Cocaine Scr) 11:00 PM) [facility] CenterOlpaoyvVHCGHRRLY7575-87-05 05:00:00 Test Item Value Reference Range Interpretation Comments U Cannab Scr (test Negative *NA*(04/12/22 code = U Cannab Scr) 11:00 PM) [facility] CenterWxxerbeYGFEVTBUT3866-39-58 05:00:00 Test Item Value Reference Range Interpretation Comments U Opiate Scr (test Negative *NA*(04/12/22 code = U Opiate Scr) 11:00 PM) [facility] [id number] 05:00:00 Test Item Value Reference Range Interpretation Comments U Phencyclidine Scr (test Negative code = U Phencyclidine *NA*(04/12/22 11:00 Scr) PM) [facility] [id number] 05:00:00 Test Item Value Reference Range Interpretation Comments UDS Note (test code = See Note (04/12/22 11:00 UDS Note) PM) [facility] [id number] 05:00:00 Test Item Value Reference Range Interpretation Comments U Amph Scr (test code Positive *ABN*(04/12/22 = U Amph Scr) 11:00 PM) [facility] [id number] 05:00:00 Test Item Value Reference Range Interpretation Comments U Sruthi Scr (test code Negative *NA*(04/12/22 = U Sruthi Scr) 11:00 PM) [facility] [id number] 05:00:00 Test Item Value Reference Range Interpretation Comments U Benzodiaz Scr (test Negative *NA*(04/12/22 code = U Benzodiaz Scr) 11:00 PM) [facility] [id number] 05:00:00 Test Item Value Reference Range Interpretation Comments U Cocaine Scr (test Negative *NA*(04/12/22 code = U Cocaine Scr) 11:00 PM) [facility] [id number] 05:00:00 Test Item Value Reference Range Interpretation Comments U Cannab Scr (test Negative *NA*(04/12/22 code = U Cannab Scr) 11:00 PM) [facility] [id number] 05:00:00 Test Item Value Reference Range Interpretation Comments U Opiate Scr (test Negative *NA*(04/12/22 code = U Opiate Scr) 11:00 PM) [facility] [id number] 05:00:00 Test Item Value Reference Range Interpretation Comments U Phencyclidine Scr (test Negative code = U Phencyclidine *NA*(04/12/22 11:00 Scr) PM) [facility] [id number] 05:00:00 Test Item Value Reference Range Interpretation Comments UDS Note (test code = See Note (04/12/22 11:00 UDS Note) PM) [facility] [id number] 05:00:00 Test Item Value Reference Range Interpretation Comments U Amph Scr (test code Positive *ABN*(04/12/22 = U Amph Scr) 11:00 PM) [facility] ChiwalxXIDDKJBQA3514-59-54 05:00:00 Test Item Value Reference Range Interpretation Comments U Sruthi Scr (test code Negative *NA*(04/12/22 = U Sruthi Scr) 11:00 PM) [facility] [id number] 05:00:00 Test Item Value Reference Range Interpretation Comments U Benzodiaz Scr (test Negative *NA*(04/12/22 code = U Benzodiaz Scr) 11:00 PM) [facility] PlqwueiFLGKHSYSW0352-19-66 05:00:00 Test Item Value Reference Range Interpretation Comments U Cocaine Scr (test Negative *NA*(04/12/22 code = U Cocaine Scr) 11:00 PM) [facility] LmagaydIGKFDNSSV0557-58-03 05:00:00 Test Item Value Reference Range Interpretation Comments U Cannab Scr (test Negative *NA*(04/12/22 code = U Cannab Scr) 11:00 PM) [facility] CenterXesjaumZRETLXBKG4112-96-08 05:00:00 Test Item Value Reference Range Interpretation Comments U Opiate Scr (test Negative *NA*(04/12/22 code = U Opiate Scr) 11:00 PM) [facility] [id number] 05:00:00 Test Item Value Reference Range Interpretation Comments U Phencyclidine Scr (test Negative code = U Phencyclidine *NA*(04/12/22 11:00 Scr) PM) [facility] [id number] 05:00:00 Test Item Value Reference Range Interpretation Comments UDS Note (test code = See Note (04/12/22 11:00 UDS Note) PM) [facility] [id number] 05:00:00 Test Item Value Reference Range Interpretation Comments U Amph Scr (test code Positive *ABN*(04/12/22 = U Amph Scr) 11:00 PM) [facility] [id number] 05:00:00 Test Item Value Reference Range Interpretation Comments U Sruthi Scr (test code Negative *NA*(04/12/22 = U Sruthi Scr) 11:00 PM) [facility] [id number] 05:00:00 Test Item Value Reference Range Interpretation Comments U Benzodiaz Scr (test Negative *NA*(04/12/22 code = U Benzodiaz Scr) 11:00 PM) [facility] [id number] 05:00:00 Test Item Value Reference Range Interpretation Comments U Cocaine Scr (test Negative *NA*(04/12/22 code = U Cocaine Scr) 11:00 PM) [facility] [id number] 05:00:00 Test Item Value Reference Range Interpretation Comments U Cannab Scr (test Negative *NA*(04/12/22 code = U Cannab Scr) 11:00 PM) [facility] [id number] 05:00:00 Test Item Value Reference Range Interpretation Comments U Opiate Scr (test Negative *NA*(04/12/22 code = U Opiate Scr) 11:00 PM) [facility] [id number] 05:00:00 Test Item Value Reference Range Interpretation Comments U Phencyclidine Scr (test Negative code = U Phencyclidine *NA*(04/12/22 11:00 Scr) PM) [facility] [id number] 05:00:00 Test Item Value Reference Range Interpretation Comments UDS Note (test code = See Note (04/12/22 11:00 UDS Note) PM) [facility]SkcucypWYCWNZHES4805-82-64 05:00:00 Test Item Value Reference Range Interpretation Comments U Amph Scr (test code Positive *ABN*(04/12/22 = U Amph Scr) 11:00 PM) [facility] CenterGghwuciKTBQBTSMN0087-96-74 05:00:00 Test Item Value Reference Range Interpretation Comments U Sruthi Scr (test code Negative *NA*(04/12/22 = U Sruthi Scr) 11:00 PM) [facility] CenterMfotnggMIRKZCIYQ2519-70-31 05:00:00 Test Item Value Reference Range Interpretation Comments U Benzodiaz Scr (test Negative *NA*(04/12/22 code = U Benzodiaz Scr) 11:00 PM) [facility] CenterUwovlpuBNOJOXOFR1625-40-20 05:00:00 Test Item Value Reference Range Interpretation Comments U Cocaine Scr (test Negative *NA*(04/12/22 code = U Cocaine Scr) 11:00 PM) [facility] CenterRdmgpekOHBBZJVDD1945-47-10 05:00:00 Test Item Value Reference Range Interpretation Comments U Cannab Scr (test Negative *NA*(04/12/22 code = U Cannab Scr) 11:00 PM) [facility] CenterHzaoothBAPUEVAMG6953-59-11 05:00:00 Test Item Value Reference Range Interpretation Comments U Opiate Scr (test Negative *NA*(04/12/22 code = U Opiate Scr) 11:00 PM) [facility] CenterSyzchxzKCXVVWNSK8459-81-90 05:00:00 Test Item Value Reference Range Interpretation Comments U Phencyclidine Scr (test Negative code = U Phencyclidine *NA*(04/12/22 11:00 Scr) PM) [facility] CenterFhbzztfCAWTSBBFI7721-15-69 05:00:00 Test Item Value Reference Range Interpretation Comments UDS Note (test code = See Note (04/12/22 11:00 UDS Note) PM) [facility] [id number] 05:00:00 Test Item Value Reference Range Interpretation Comments U Amph Scr (test code Positive *ABN*(04/12/22 = U Amph Scr) 11:00 PM) [facility] [id number] 05:00:00 Test Item Value Reference Range Interpretation Comments U Sruthi Scr (test code Negative *NA*(04/12/22 = U Sruthi Scr) 11:00 PM) [facility] [id number] 05:00:00 Test Item Value Reference Range Interpretation Comments U Benzodiaz Scr (test Negative *NA*(04/12/22 code = U Benzodiaz Scr) 11:00 PM) [facility] [id number] 05:00:00 Test Item Value Reference Range Interpretation Comments U Cocaine Scr (test Negative *NA*(04/12/22 code = U Cocaine Scr) 11:00 PM) [facility] [id number] 05:00:00 Test Item Value Reference Range Interpretation Comments U Cannab Scr (test Negative *NA*(04/12/22 code = U Cannab Scr) 11:00 PM) [facility] [id number] 05:00:00 Test Item Value Reference Range Interpretation Comments U Opiate Scr (test Negative *NA*(04/12/22 code = U Opiate Scr) 11:00 PM) [facility] [id number] 05:00:00 Test Item Value Reference Range Interpretation Comments U Phencyclidine Scr (test Negative code = U Phencyclidine *NA*(04/12/22 11:00 Scr) PM) [facility]2022-12-07 05:00:00 Test Item Value Reference Range Interpretation Comments UDS Note (test code = See Note (04/12/22 11:00 UDS Note) PM) [facility]DhynxmuLMLUHECBP8131-29-62 03:32:00 Test Item Value Reference Range Interpretation Comments Acetaminoph Lvl (test code (04/12/22 9:32 PM) 10-20 = Acetaminoph Lvl) [facility] CenterMoprdneHHRBLKFTP5082-68-89 03:32:00 Test Item Value Reference Range Interpretation Comments Ethanol Lvl (test code = Ethanol Lvl) no gt [facility] CenterSplyyceDWZTFENNE4412-81-15 03:32:00 Test Item Value Reference Range Interpretation Comments Etoh (%) (test code = Etoh (%)) no gt [facility] CenterAgkinooKJJREFNDA7847-39-38 03:32:00 Test Item Value Reference Range Interpretation Comments Salicylate Lvl (test 1.9 See_Comment [Autom ated message] The code = Salicylate Lvl) syste m which generated this result tra nsmitted reference range : <=30.0. The reference r peri was not used to int erpret this result as normal/abnormal . [facility] CenterKbumcztRBXVKTZREE3081-07-91 03:32:00 Test Item Value Reference Range Interpretation Comments Basophils # (test code 0.1 See_Comment [Aut omated message] The = Basophils #) system which generated this result tra nsmitted reference range : <=0.2. The reference r peri was not used to int erpret this result as normal/abnormal . [facility] QgrvpmqTEDEQFOFBL2415-22-75 03:32:00 Test Item Value Reference Range Interpretation Comments Acetaminoph Lvl (test code (04/12/22 9:32 PM) 10-20 = Acetaminoph Lvl) [facility] CenterGcfkhjpYTBDZFSVXF2452-94-30 03:32:00 Test Item Value Reference Range Interpretation Comments Ethanol Lvl (test code = Ethanol Lvl) no gt [facility] MshtqfgIFZOKVUZNW6173-03-71 03:32:00 Test Item Value Reference Range Interpretation Comments Etoh (%) (test code = Etoh (%)) no gt [facility] VnbkouhTXTNEITJVS9078-25-61 03:32:00 Test Item Value Reference Range Interpretation Comments Salicylate Lvl (test 1.9 See_Comment [Autom ated message] The code = Salicylate Lvl) syste m which generated this result tra nsmitted reference range : <=30.0. The reference r peri was not used to int erpret this result as normal/abnormal . [facility] QidpdruYHWFFMPCR3258-86-24 03:32:00 Test Item Value Reference Range Interpretation Comments Acetaminoph Lvl (test code (04/12/22 9:32 PM) 10-20 = Acetaminoph Lvl) [facility] XpcoqkfMJGBQYZPV7978-29-17 03:32:00 Test Item Value Reference Range Interpretation Comments Ethanol Lvl (test code = Ethanol Lvl) no gt [facility] WuqikjwDVFBICJOM3965-04-57 03:32:00 Test Item Value Reference Range Interpretation Comments Etoh (%) (test code = Etoh (%)) no gt [facility] AtlajgsRFNTNJFOF8108-98-74 03:32:00 Test Item Value Reference Range Interpretation Comments Salicylate Lvl (test 1.9 See_Comment [Autom ated message] The code = Salicylate Lvl) syste m which generated this result tra nsmitted reference range : <=30.0. The reference r peri was not used to int erpret this result as normal/abnormal . [facility] CenterIoryvdmDDGSPWHAOA9735-59-46 03:32:00 Test Item Value Reference Range Interpretation Comments Basophils # (test code 0.1 See_Comment [Aut omated message] The = Basophils #) system which generated this result tra nsmitted reference range : <=0.2. The reference r peri was not used to int erpret this result as normal/abnormal . [facility] CenterZkfduurASOHNYVKYL6009-00-20 03:32:00 Test Item Value Reference Range Interpretation Comments Acetaminoph Lvl (test code (04/12/22 9:32 PM) 10-20 = Acetaminoph Lvl) [facility] CenterGrxfdpmOJXPSOTOTJ7937-55-41 03:32:00 Test Item Value Reference Range Interpretation Comments Ethanol Lvl (test code = Ethanol Lvl) no gt [facility] YpirxikHMMMIIXACB1591-53-68 03:32:00 Test Item Value Reference Range Interpretation Comments Etoh (%) (test code = Etoh (%)) no [facility]HkubwjnMOOGBNBPFC7176-43-01 03:32:00 Test Item Value Reference Range Interpretation Comments Salicylate Lvl (test 1.9 See_Comment [Autom ated message] The code = Salicylate Lvl) syste m which generated this result tra nsmitted reference range : <=30.0. The reference r peri was not used to int erpret this result as normal/abnormal . [facility] GinwidhGWDWUCJGV5636-83-41 03:32:00 Test Item Value Reference Range Interpretation Comments Acetaminoph Lvl (test code (04/12/22 9:32 PM) 10-20 = Acetaminoph Lvl) [facility] GtcjmadUZRBQADNU3477-76-80 03:32:00 Test Item Value Reference Range Interpretation Comments Ethanol Lvl (test code = Ethanol Lvl) no [facility] MqukpnvCSUOWEVWQ3802-17-67 03:32:00 Test Item Value Reference Range Interpretation Comments Etoh (%) (test code = Etoh (%)) no [facility] HospitalKnkdofkWMEDJQVMZ8930-99-74 03:32:00 Test Item Value Reference Range Interpretation Comments Salicylate Lvl (test 1.9 See_Comment [Autom ated message] The code = Salicylate Lvl) syste m which generated this result tra nsmitted reference range : <=30.0. The reference r peri was not used to int erpret this result as normal/abnormal . [facility] CenterKgyydzdPWUJSKOVGW6027-96-14 03:32:00 Test Item Value Reference Range Interpretation Comments Basophils # (test code 0.1 See_Comment [Aut omated message] The = Basophils #) system which generated this result tra nsmitted reference range : <=0.2. The reference r peri was not used to int erpret this result as normal/abnormal . [facility] CenterKenubrvPKIBPUJWJO6214-88-16 03:32:00 Test Item Value Reference Range Interpretation Comments Acetaminoph Lvl (test code (04/12/22 9:32 PM) 10-20 = Acetaminoph Lvl) [facility] CenterGwrabmnLAPVFHDWYZ1567-36-51 03:32:00 Test Item Value Reference Range Interpretation Comments Ethanol Lvl (test code = Ethanol Lvl) no [facility] HospitalQannlmrWDJRQPMVKR6878-01-30 03:32:00 Test Item Value Reference Range Interpretation Comments Etoh (%) (test code = Etoh (%)) no [facility] HospitalLaamicnQNDVVNTRHJ8291-20-33 03:32:00 Test Item Value Reference Range Interpretation Comments Salicylate Lvl (test 1.9 See_Comment [Autom ated message] The code = Salicylate Lvl) syste m which generated this result tra nsmitted reference range : <=30.0. The reference r peri was not used to int erpret this result as normal/abnormal . [facility] CenterMbahxfzZYNLZJEEK3809-95-07 03:32:00 Test Item Value Reference Range Interpretation Comments Acetaminoph Lvl (test code (04/12/22 9:32 PM) 10-20 = Acetaminoph Lvl) [facility] CenterZpzqiiaQDSYVXMQI7851-86-20 03:32:00 Test Item Value Reference Range Interpretation Comments Ethanol Lvl (test code = Ethanol Lvl) no [facility] HospitalHnkvrrnPPRNFTGTZ5752-72-95 03:32:00 Test Item Value Reference Range Interpretation Comments Etoh (%) (test code = Etoh (%)) no gt [facility] BfukriwZPKAWBDUH0530-19-59 03:32:00 Test Item Value Reference Range Interpretation Comments Salicylate Lvl (test 1.9 See_Comment [Autom ated message] The code = Salicylate Lvl) syste m which generated this result tra nsmitted reference range : <=30.0. The reference r peri was not used to int erpret this result as normal/abnormal . [facility] CenterHdjbtlrOPXOTFMYRX8072-77-63 03:32:00 Test Item Value Reference Range Interpretation Comments Basophils # (test code 0.1 See_Comment [Aut omated message] The = Basophils #) system which generated this result tra nsmitted reference range : <=0.2. The reference r peri was not used to int erpret this result as normal/abnormal . [facility] CenterVafmwngXNWVXEHIMK9505-60-11 03:32:00 Test Item Value Reference Range Interpretation Comments Acetaminoph Lvl (test code (04/12/22 9:32 PM) 10-20 = Acetaminoph Lvl) [facility] CenterQzvgmxuFTLSOKDRWE0034-28-71 03:32:00 Test Item Value Reference Range Interpretation Comments Ethanol Lvl (test code = Ethanol Lvl) no [facility] IlxiurgENNKDGVGRT2579-14-95 03:32:00 Test Item Value Reference Range Interpretation Comments Etoh (%) (test code = Etoh (%)) no [facility] JnnozsvKPDYAZKVHG4460-78-73 03:32:00 Test Item Value Reference Range Interpretation Comments Salicylate Lvl (test 1.9 See_Comment [Autom ated message] The code = Salicylate Lvl) syste m which generated this result tra nsmitted reference range : <=30.0. The reference r peri was not used to int erpret this result as normal/abnormal . [facility] ZiescxjFCOQIFMPJ7060-46-01 03:32:00 Test Item Value Reference Range Interpretation Comments Acetaminoph Lvl (test code (04/12/22 9:32 PM) 10-20 = Acetaminoph Lvl) [facility] TncxwarMVRWTXNCO2325-89-53 03:32:00 Test Item Value Reference Range Interpretation Comments Ethanol Lvl (test code = Ethanol Lvl) no [facility]2022-12-07 03:32:00 Test Item Value Reference Range Interpretation Comments Etoh (%) (test code = Etoh (%)) no [facility]2022-12-07 03:32:00 Test Item Value Reference Range Interpretation Comments Salicylate Lvl (test 1.9 See_Comment [Autom ated message] The code = Salicylate Lvl) syste m which generated this result tra nsmitted reference range : <=30.0. The reference r peri was not used to int erpret this result as normal/abnormal . [facility]WbxvretIJIGOLFNBO9295-41-18 03:32:00 Test Item Value Reference Range Interpretation Comments Basophils # (test code 0.1 See_Comment [Aut omated message] The = Basophils #) system which generated this result tra nsmitted reference range : <=0.2. The reference r peri was not used to int erpret this result as normal/abnormal . [facility] CenterMjweatoTEUWCQUEKR8155-42-05 03:32:00 Test Item Value Reference Range Interpretation Comments Acetaminoph Lvl (test code (04/12/22 9:32 PM) 10-20 = Acetaminoph Lvl) [place] [id number] 03:32:00 Test Item Value Reference Range Interpretation Comments Ethanol Lvl (test code = Ethanol Lvl) no [place] [id number] 03:32:00 Test Item Value Reference Range Interpretation Comments Etoh (%) (test code = Etoh (%)) no [place] [id number] 03:32:00 Test Item Value Reference Range Interpretation Comments Salicylate Lvl (test 1.9 See_Comment [Autom ated message] The code = Salicylate Lvl) syste m which generated this result tra nsmitted reference range : <=30.0. The reference r peri was not used to int erpret this result as normal/abnormal . [facility] CenterEmzyzupDQSZFWOPD8082-73-54 03:32:00 Test Item Value Reference Range Interpretation Comments Acetaminoph Lvl (test code (04/12/22 9:32 PM) 10-20 = Acetaminoph Lvl) [facility] CenterNiulukeLQXDDIZKO5436-62-94 03:32:00 Test Item Value Reference Range Interpretation Comments Ethanol Lvl (test code = Ethanol Lvl) no [facility]SrstotlKRQCXSUXV8902-76-09 03:32:00 Test Item Value Reference Range Interpretation Comments Etoh (%) (test code = Etoh (%)) no [facility]2022-12-07 03:32:00 Test Item Value Reference Range Interpretation Comments Salicylate Lvl (test 1.9 See_Comment [Autom ated message] The code = Salicylate Lvl) syste m which generated this result tra nsmitted reference range : <=30.0. The reference r peri was not used to int erpret this result as normal/abnormal . [facility] HospitalUmukfuuVAKUMVEXNJ2011-26-39 03:32:00 Test Item Value Reference Range Interpretation Comments Basophils # (test code 0.1 See_Comment [Aut omated message] The = Basophils #) system which generated this result tra nsmitted reference range : <=0.2. The reference r peri was not used to int erpret this result as normal/abnormal . [facility] CenterCbzuyotXOFAMBINIS7573-50-89 03:32:00 Test Item Value Reference Range Interpretation Comments Acetaminoph Lvl (test code (04/12/22 9:32 PM) 10-20 = Acetaminoph Lvl) [place] [id number] 03:32:00 Test Item Value Reference Range Interpretation Comments Ethanol Lvl (test code = Ethanol Lvl) no [facility] HospitalNjzgvwaGRTOAMIWUP0433-07-60 03:32:00 Test Item Value Reference Range Interpretation Comments Etoh (%) (test code = Etoh (%)) no [facility]UfaysvrOFZGRIQDYR6699-45-90 03:32:00 Test Item Value Reference Range Interpretation Comments Salicylate Lvl (test 1.9 See_Comment [Autom ated message] The code = Salicylate Lvl) syste m which generated this result tra nsmitted reference range : <=30.0. The reference r peri was not used to int erpret this result as normal/abnormal . [facility] CenterHbrqsdkQFDSDQBLW8535-27-50 03:32:00 Test Item Value Reference Range Interpretation Comments Acetaminoph Lvl (test code (04/12/22 9:32 PM) 10-20 = Acetaminoph Lvl) [facility] CenterChtwepxMHQGXRBUT7878-15-25 03:32:00 Test Item Value Reference Range Interpretation Comments Ethanol Lvl (test code = Ethanol Lvl) no [facility]2022-12-07 03:32:00 Test Item Value Reference Range Interpretation Comments Etoh (%) (test code = Etoh (%)) no [facility]2022-12-07 03:32:00 Test Item Value Reference Range Interpretation Comments Salicylate Lvl (test 1.9 See_Comment [Autom ated message] The code = Salicylate Lvl) syste m which generated this result tra nsmitted reference range : <=30.0. The reference r peri was not used to int erpret this result as normal/abnormal . [facility] HospitalYcepooqCZPKHPOAXC0251-54-89 03:32:00 Test Item Value Reference Range Interpretation Comments Basophils # (test code 0.1 See_Comment [Aut omated message] The = Basophils #) system which generated this result tra nsmitted reference range : <=0.2. The reference r peri was not used to int erpret this result as normal/abnormal . [facility]UjctooiCKYHBZGIOT5206-03-07 03:32:00 Test Item Value Reference Range Interpretation Comments Acetaminoph Lvl (test code (04/12/22 9:32 PM) 10-20 = Acetaminoph Lvl) [place] [id number] 03:32:00 Test Item Value Reference Range Interpretation Comments Ethanol Lvl (test code = Ethanol Lvl) no [facility]PdfilzbVIPKUWNEKN8480-35-45 03:32:00 Test Item Value Reference Range Interpretation Comments Etoh (%) (test code = Etoh (%)) no [facility]HpyhzkxYOYXKRNXNR4153-11-42 03:32:00 Test Item Value Reference Range Interpretation Comments Salicylate Lvl (test 1.9 See_Comment [Autom ated message] The code = Salicylate Lvl) syste m which generated this result tra nsmitted reference range : <=30.0. The reference r peri was not used to int erpret this result as normal/abnormal . [facility] CenterLsuxoiuTOYQZKXPO9154-62-03 03:32:00 Test Item Value Reference Range Interpretation Comments Acetaminoph Lvl (test code (04/12/22 9:32 PM) 10-20 = Acetaminoph Lvl) [facility] CenterEvbmghzWTXOWAFQM0131-41-97 03:32:00 Test Item Value Reference Range Interpretation Comments Ethanol Lvl (test code = Ethanol Lvl) no [facility]OjevzuvNALJHSOPF6306-60-05 03:32:00 Test Item Value Reference Range Interpretation Comments Etoh (%) (test code = Etoh (%)) no [facility] HospitalWrfqfviBTMFGMGHT5983-57-75 03:32:00 Test Item Value Reference Range Interpretation Comments Salicylate Lvl (test 1.9 See_Comment [Autom ated message] The code = Salicylate Lvl) syste m which generated this result tra nsmitted reference range : <=30.0. The reference r peri was not used to int erpret this result as normal/abnormal . [facility]CfoqlizYWJSXGRLGN8862-96-19 03:32:00 Test Item Value Reference Range Interpretation Comments Basophils # (test code 0.1 See_Comment [Aut omated message] The = Basophils #) system which generated this result tra nsmitted reference range : <=0.2. The reference r peri was not used to int erpret this result as normal/abnormal . [facility] CenterDcrqnqaFWPTRRXBFY1296-70-43 03:32:00 Test Item Value Reference Range Interpretation Comments Acetaminoph Lvl (test code (04/12/22 9:32 PM) 10-20 = Acetaminoph Lvl) [facility] CenterAmuiwieILCHZOGQTQ2367-12-47 03:32:00 Test Item Value Reference Range Interpretation Comments Ethanol Lvl (test code = Ethanol Lvl) no [facility] HospitalOodsgiqYYNFLPREKP6191 03:32:00 Test Item Value Reference Range Interpretation Comments Etoh (%) (test code = Etoh (%)) no [facility] HospitalHiwcitwZXACWVIMAK0178-26-96 03:32:00 Test Item Value Reference Range Interpretation Comments Salicylate Lvl (test 1.9 See_Comment [Autom ated message] The code = Salicylate Lvl) syste m which generated this result tra nsmitted reference range : <=30.0. The reference r peri was not used to int erpret this result as normal/abnormal . [facility] ResourcesRS-CoV-2 RNA Resp Ql CAMERON+wcymb3427-65-63 02:03:06 Test Item Value Reference Range Interpretation Comments Hospitalized? (test No code = 74946-8) ICU? (test code = No 88991-0) Symptomatic as defined No by CDC? (test code = 01970-6) Employed in Unknown Healthcare? (test code = 32362-5) Resident in a Unknown congregate care setting (including nursing homes, residential care for people with intellectual and developmental disabilities, psychiatric treatment facilities, group homes, board and care homes, homeless nursing home, foster care or other): (test code = 78792-9) SARS-CoV-2 RNA Nph Ql NOT DETECTED Not Detected The novel CAMERON+probe (test code = coron avirus 80766-0) (SARS-CoV-2) ta rget nucleic acids a re not detected. COMMENT: The [facility] SARS-CoV-2 real-time RT-PCR based diagnostic test intended for the qualitative detection of SARS-CoV-2 viral RNA in a nasopharyngeal swab during acute phase of infection. This test was developed and its performance characteristics have been determined by the [facility]. This test has not been cleared or approved by the FDA. This testsystem has been authorized by the FDA under an Emergency Use Authorization (EUA). This test has beenvalidated in accordance with the FDA\\ES05261\\s Guidance document \\BI1378H\\Policy for Coronavirus Disease-2019 Tests During the Public Health Emergency\\KL5812L\\ (Revised September 2019) and is used for clinical purposes. It should not be regarded as investigational or for research\\SL2422D\\Detected\\OO4888L\\ results are indicative of the presence of the identified virus, but do not rule out bacterial infection or co-infection with other pathogens not detected by the test. Clinical correlation with patient his tory and other diagnostic information is necessary to determine patient infection status. \\AM2912D\\Not Detected\\EO5973M\\ results do not preclude SARS-CoV-2 and should not be used as the sole basis for treatment or other patient management decisions. Negative results must be combined with clinical observations, patient history, and/or epidemiological information.This laboratory is certified under the Clinical Laboratory Improvement Amendments (CLIA) as qualified to perform high complexity clinical laboratory testing.[facility] SARS-CoV-2 RNA Resp Ql CAMERON+tranb8556-33-49 12:30:56 Test Item Value Reference Range Interpretation Comments Hospitalized? (test No code = 18523-3) ICU? (test code = No 64742-9) Symptomatic as defined No by CDC? (test code = 81095-7) Employed in No Healthcare? (test code = 13361-5) Resident in a No congregate care setting (including nursing homes, residential care for people with intellectual and developmental disabilities, psychiatric treatment facilities, group homes, board and care homes, homeless nursing home, foster care or other): (test code = 70692-8) SARS-CoV-2 RNA Resp Ql NOT DETECTED Not Detected INTER PRETATION: No CAMERON+probe (test code = detec table levels 96780-7) of SARS-CoV-2 Coronavirus (COVID-19) were present in this patient's sampl e by this test. A no t detected result does not exclud e the possibility of active infectio n with this virus due to other factor s that may affect the results such as a poorly collecte d sample, viral titers below th e limit of detect ion of the assay, a nd the infrequent possibility of inhibitors in t he sample. This re sult should be interpreted in conjunction wit h clinical, radiographic, a nd other laborator y findings and sh ould not be used as the sole indicator of active infectio n with SARS-CoV-2 Coronavirus (COVID-19). COMMENT: This [employer] Xpert Xpress SARS-CoV-2 real-time PCR test was developed, and its performance characteristics determined by the [facility] molecular diagnostic Laboratory and is acceptablefor patient testing. It has been approved for patient testing by the FDA under the Emergency Use Auth orization pathway. This laboratory is certified under federal CLIA regulations to perform this type of high complexity testing.[id number] 17:32:00 Test Item Value Reference Range Interpretation Comments Coronavirus (COVID-19) Not Detected (12/26/21 CAMERON (test code = 12:32 PM) Coronavirus (COVID-19) CAMERON) [id number] 17:32:00 Test Item Value Reference Range Interpretation Comments Coronavirus (COVID-19) Not Detected (12/26/21 CAMERON (test code = 12:32 PM) Coronavirus (COVID-19) CAMERON) [facility] [id number] 17:32:00 Test Item Value Reference Range Interpretation Comments Coronavirus (COVID-19) Not Detected (12/26/21 CAMERON (test code = 12:32 PM) Coronavirus (COVID-19) CAMERON) [place] [id number] 17:32:00 Test Item Value Reference Range Interpretation Comments Coronavirus (COVID-19) Not Detected (12/26/21 CAMERON (test code = 12:32 PM) Coronavirus (COVID-19) CAMERON) [place] [address]-08-21 17:32:00 Test Item Value Reference Range Interpretation Comments Coronavirus (COVID-19) Not Detected (12/26/21 CAMERON (test code = 12:32 PM) Coronavirus (COVID-19) CAMERON) [place] [address]-08-21 17:32:00 Test Item Value Reference Range Interpretation Comments Coronavirus (COVID-19) Not Detected (12/26/21 CAMERON (test code = 12:32 PM) Coronavirus (COVID-19) CAMERON) [place] [id number] 17:32:00 Test Item Value Reference Range Interpretation Comments Coronavirus (COVID-19) Not Detected (12/26/21 CAMERON (test code = 12:32 PM) Coronavirus (COVID-19) CAMERON) [place] [id number] 17:32:00 Test Item Value Reference Range Interpretation Comments Coronavirus (COVID-19) Not Detected (12/26/21 CAMERON (test code = 12:32 PM) Coronavirus (COVID-19) CAMERON) [place] [id number] 17:32:00 Test Item Value Reference Range Interpretation Comments Coronavirus (COVID-19) Not Detected (12/26/21 CAMERON (test code = 12:32 PM) Coronavirus (COVID-19) CAMERON) [place] [address]-08-21 17:32:00 Test Item Value Reference Range Interpretation Comments Coronavirus (COVID-19) Not Detected (12/26/21 CAMERON (test code = 12:32 PM) Coronavirus (COVID-19) CAMERON) [place] [address]-08-21 17:32:00 Test Item Value Reference Range Interpretation Comments Coronavirus (COVID-19) Not Detected (12/26/21 CAMERON (test code = 12:32 PM) Coronavirus (COVID-19) CAMERON) [facility] [id number] 17:32:00 Test Item Value Reference Range Interpretation Comments Coronavirus (COVID-19) Not Detected (12/26/21 CAMERON (test code = 12:32 PM) Coronavirus (COVID-19) CAMERON) [facility] Ho[id number] 16:23:48 Test Item Value Reference Range Interpretation Comments PT (test code = PT) 12.8 s 12.0-14.7 [facility] HospitalBewkwbjRRVZQRKUQC3266-61-24 16:23:48 Test Item Value Reference Range Interpretation Comments INR (test code = INR) 0.97 1 0.85-1.17 [place] 848172-08-21 16:23:48 Test Item Value Reference Range Interpretation Comments PTT (test code = PTT) 26.8 s 22.9-35.8 [facility] Hos[id number] 16:23:48 Test Item Value Reference Range Interpretation Comments PT (test code = PT) 12.8 s 12.0-14.7 [facility] HospitalFnsfdqoHYOEEVQZNT3724-86-56 16:23:48 Test Item Value Reference Range Interpretation Comments INR (test code = INR) 0.97 1 0.85-1.17 [facility] HospitalHfqwwsbLDJNRHJMIN6452-25-21 16:23:48 Test Item Value Reference Range Interpretation Comments PT (test code = PT) 12.8 s 12.0-14.7 [facility] Hos[id number] 16:23:48 Test Item Value Reference Range Interpretation Comments INR (test code = INR) 0.97 1 0.85-1.17 [place] [address]-08-21 16:23:48 Test Item Value Reference Range Interpretation Comments PTT (test code = PTT) 26.8 s 22.9-35.8 [place] 848172-08-21 16:23:48 Test Item Value Reference Range Interpretation Comments PTT (test code = PTT) 26.8 s 22.9-35.8 [facility] HospitalCrgbdpuIDCXBAIGCQ2554-44-96 16:23:48 Test Item Value Reference Range Interpretation Comments PT (test code = PT) 12.8 s 12.0-14.7 [place] 848172-08-21 16:23:48 Test Item Value Reference Range Interpretation Comments INR (test code = INR) 0.97 1 0.85-1.17 [place] 848172-08-21 16:23:48 Test Item Value Reference Range Interpretation Comments PT (test code = PT) 12.8 s 12.0-14.7 [place] 848172-08-21 16:23:48 Test Item Value Reference Range Interpretation Comments INR (test code = INR) 0.97 1 0.85-1.17 [place] [address]-08-21 16:23:48 Test Item Value Reference Range Interpretation Comments PTT (test code = PTT) 26.8 s 22.9-35.8 [place] [address]-08-21 16:23:48 Test Item Value Reference Range Interpretation Comments PTT (test code = PTT) 26.8 s 22.9-35.8 [place] 848172-08-21 16:23:48 Test Item Value Reference Range Interpretation Comments PT (test code = PT) 12.8 s 12.0-14.7 [facility] HospitalIongzgjUZUSVRLIHO8995-89-39 16:23:48 Test Item Value Reference Range Interpretation Comments INR (test code = INR) 0.97 1 0.85-1.17 [facility] HospitalStmvgyiERWLSHAFVB1748-24-10 16:23:48 Test Item Value Reference Range Interpretation Comments PTT (test code = PTT) 26.8 s 22.9-35.8 [place] 848172-08-21 16:23:48 Test Item Value Reference Range Interpretation Comments PT (test code = PT) 12.8 s 12.0-14.7 [place] [address]-08-21 16:23:48 Test Item Value Reference Range Interpretation Comments INR (test code = INR) 0.97 1 0.85-1.17 [place] [address]-08-21 16:23:48 Test Item Value Reference Range Interpretation Comments PTT (test code = PTT) 26.8 s 22.9-35.8 [place] [address]-08-21 16:23:48 Test Item Value Reference Range Interpretation Comments PT (test code = PT) 12.8 s 12.0-14.7 [place] 848172-08-21 16:23:48 Test Item Value Reference Range Interpretation Comments INR (test code = INR) 0.97 1 0.85-1.17 [place] 848172-08-21 16:23:48 Test Item Value Reference Range Interpretation Comments PTT (test code = PTT) 26.8 s 22.9-35.8 [place] 848172-08-21 16:23:48 Test Item Value Reference Range Interpretation Comments PT (test code = PT) 12.8 s 12.0-14.7 [place] [address]-08-21 16:23:48 Test Item Value Reference Range Interpretation Comments INR (test code = INR) 0.97 1 0.85-1.17 [place] [address]-08-21 16:23:48 Test Item Value Reference Range Interpretation Comments PTT (test code = PTT) 26.8 s 22.9-35.8 [place] 848172-08-21 16:23:48 Test Item Value Reference Range Interpretation Comments PT (test code = PT) 12.8 s 12.0-14.7 [facility] HospitalFcpgyadEDBVVXXJSK5973-87-93 16:23:48 Test Item Value Reference Range Interpretation Comments INR (test code = INR) 0.97 1 0.85-1.17 [place] 848172-08-21 16:23:48 Test Item Value Reference Range Interpretation Comments PTT (test code = PTT) 26.8 s 22.9-35.8 [place] 848172-08-21 16:23:48 Test Item Value Reference Range Interpretation Comments PT (test code = PT) 12.8 s 12.0-14.7 [place] [address]-08-21 16:23:48 Test Item Value Reference Range Interpretation Comments INR (test code = INR) 0.97 1 0.85-1.17 [place] [address]-08-21 16:23:48 Test Item Value Reference Range Interpretation Comments PTT (test code = PTT) 26.8 s 22.9-35.8 [place] [address]-08-21 16:23:48 Test Item Value Reference Range Interpretation Comments PT (test code = PT) 12.8 s 12.0-14.7 [place] [address]-08-21 16:23:48 Test Item Value Reference Range Interpretation Comments INR (test code = INR) 0.97 1 0.85-1.17 [facility] HospitalAjejplyYNCDHXUYCI6434-03-78 16:23:48 Test Item Value Reference Range Interpretation Comments PTT (test code = PTT) 26.8 s 22.9-35.8 [facility] [id number] 16:03:54 Test Item Value Reference Range Interpretation Comments U Amph Scr (test code Negative *NA*(12/26/21 = U Amph Scr) 11:03 AM) [facility] [id number] 16:03:54 Test Item Value Reference Range Interpretation Comments U Sruthi Scr (test code Negative *NA*(12/26/21 = U Sruthi Scr) 11:03 AM) [facility] [id number] 16:03:54 Test Item Value Reference Range Interpretation Comments U Benzodiaz Scr (test Negative *NA*(12/26/21 code = U Benzodiaz Scr) 11:03 AM) [facility] [id number] 16:03:54 Test Item Value Reference Range Interpretation Comments U Cocaine Scr (test Negative *NA*(12/26/21 code = U Cocaine Scr) 11:03 AM) [facility] [id number] 16:03:54 Test Item Value Reference Range Interpretation Comments U Cannab Scr (test Negative *NA*(12/26/21 code = U Cannab Scr) 11:03 AM) [facility] [id number] 16:03:54 Test Item Value Reference Range Interpretation Comments U Opiate Scr (test Negative *NA*(12/26/21 code = U Opiate Scr) 11:03 AM) [facility] [id number] 16:03:54 Test Item Value Reference Range Interpretation Comments U Phencyclidine Scr (test Negative code = U Phencyclidine *NA*(12/26/21 11:03 Scr) AM) [facility] [id number] 16:03:54 Test Item Value Reference Range Interpretation Comments U Methadone Scr (test Negative *NA*(12/26/21 code = U Methadone Scr) 11:03 AM) [facility] [id number] 16:03:54 Test Item Value Reference Range Interpretation Comments U Propoxyph Scr (test Negative *NA*(12/26/21 code = U Propoxyph Scr) 11:03 AM) [facility] [id number] 16:03:54 Test Item Value Reference Range Interpretation Comments UDS Note (test code = See Note (12/26/21 11:03 UDS Note) AM) [facility] [id number] 16:03:54 Test Item Value Reference Range Interpretation Comments UA Color (test code = Yellow (12/26/21 11:03 UA Color) AM) [facility] [id number] 16:03:54 Test Item Value Reference Range Interpretation Comments UA Turbidity (test code = Clear (12/26/21 11:03 UA Turbidity) AM) [facility] [id number] 16:03:54 Test Item Value Reference Range Interpretation Comments UA Spec Grav (test code = UA Spec 1.020 1 Grav) [facility] [id number] 16:03:54 Test Item Value Reference Range Interpretation Comments UA pH (test code = UA pH) 7.0 1 5.0-8.0 [facility] [id number] 16:03:54 Test Item Value Reference Range Interpretation Comments UA Protein (test code Negative (12/26/21 11:03 = UA Protein) AM) [facility] [id number] 16:03:54 Test Item Value Reference Range Interpretation Comments UA Glucose (test code Negative (12/26/21 11:03 = UA Glucose) AM) [facility] [id number] 16:03:54 Test Item Value Reference Range Interpretation Comments UA Ketones (test code Negative (12/26/21 11:03 = UA Ketones) AM) [facility] [id number] 16:03:54 Test Item Value Reference Range Interpretation Comments UA Bili (test code = Negative (12/26/21 11:03 UA Bili) AM) [facility] [id number] 16:03:54 Test Item Value Reference Range Interpretation Comments UA Blood (test code = Trace *ABN*(12/26/21 UA Blood) 11:03 AM) [facility] [id number] 16:03:54 Test Item Value Reference Range Interpretation Comments UA Urobilinogen (test code = UA 0.2 0.1-1.0 Urobilinogen) [facility] [id number] 16:03:54 Test Item Value Reference Range Interpretation Comments UA Nitrite (test code Negative (12/26/21 11:03 = UA Nitrite) AM) [facility] [id number] 16:03:54 Test Item Value Reference Range Interpretation Comments UA Leuk Est (test Negative (12/26/21 11:03 code = UA Leuk Est) AM) [facility] [id number] 16:03:54 Test Item Value Reference Range Interpretation Comments UA Sq Epi (test code = UA Sq Occasional /LPF Epi) [facility] [id number] 16:03:54 Test Item Value Reference Range Interpretation Comments UA WBC (test code = no gt See_Comment [Automa suze message] The UA WBC) system which ge nerated this result transmit suze reference range : <=5. The reference range was not used to interpr et this result as anselmo l/abnormal. [facility] [id number] 16:03:54 Test Item Value Reference Range Interpretation Comments UA RBC (test code = 12 See_Comment [Automa suze message] The UA RBC) system which ge nerated this result transmit suze reference range : <=2. The reference range was not used to interpr et this result as anselmo l/abnormal. [facility] [id number] 16:03:54 Test Item Value Reference Range Interpretation Comments UA Mucus (test code = UA Mucus) Few /LPF [facility] [id number] 16:03:54 Test Item Value Reference Range Interpretation Comments U Amph Scr (test code Negative *NA*(12/26/21 = U Amph Scr) 11:03 AM) [facility] [id number] 16:03:54 Test Item Value Reference Range Interpretation Comments U Sruthi Scr (test code Negative *NA*(12/26/21 = U Sruthi Scr) 11:03 AM) [facility] [id number] 16:03:54 Test Item Value Reference Range Interpretation Comments U Benzodiaz Scr (test Negative *NA*(12/26/21 code = U Benzodiaz Scr) 11:03 AM) [facility] [id number] 16:03:54 Test Item Value Reference Range Interpretation Comments U Cocaine Scr (test Negative *NA*(12/26/21 code = U Cocaine Scr) 11:03 AM) [facility] [id number] 16:03:54 Test Item Value Reference Range Interpretation Comments U Cannab Scr (test Negative *NA*(12/26/21 code = U Cannab Scr) 11:03 AM) [facility] [id number] 16:03:54 Test Item Value Reference Range Interpretation Comments U Opiate Scr (test Negative *NA*(12/26/21 code = U Opiate Scr) 11:03 AM) [facility] [id number] 16:03:54 Test Item Value Reference Range Interpretation Comments U Phencyclidine Scr (test Negative code = U Phencyclidine *NA*(12/26/21 11:03 Scr) AM) [facility] [id number] 16:03:54 Test Item Value Reference Range Interpretation Comments U Methadone Scr (test Negative *NA*(12/26/21 code = U Methadone Scr) 11:03 AM) [facility] [id number] 16:03:54 Test Item Value Reference Range Interpretation Comments U Propoxyph Scr (test Negative *NA*(12/26/21 code = U Propoxyph Scr) 11:03 AM) [facility] [id number] 16:03:54 Test Item Value Reference Range Interpretation Comments UDS Note (test code = See Note (12/26/21 11:03 UDS Note) AM) [facility] [id number] 16:03:54 Test Item Value Reference Range Interpretation Comments UA Color (test code = Yellow (12/26/21 11:03 UA Color) AM) [facility] [id number] 16:03:54 Test Item Value Reference Range Interpretation Comments UA Turbidity (test code = Clear (12/26/21 11:03 UA Turbidity) AM) [facility] [id number] 16:03:54 Test Item Value Reference Range Interpretation Comments UA Spec Grav (test code = UA Spec 1.020 1 Grav) [facility] [id number] 16:03:54 Test Item Value Reference Range Interpretation Comments UA pH (test code = UA pH) 7.0 1 5.0-8.0 [facility] [id number] 16:03:54 Test Item Value Reference Range Interpretation Comments UA Protein (test code Negative (12/26/21 11:03 = UA Protein) AM) [facility] [id number] 16:03:54 Test Item Value Reference Range Interpretation Comments U Amph Scr (test code Negative *NA*(12/26/21 = U Amph Scr) 11:03 AM) [facility] [id number] 16:03:54 Test Item Value Reference Range Interpretation Comments UA Glucose (test code Negative (12/26/21 11:03 = UA Glucose) AM) [facility] [id number] 16:03:54 Test Item Value Reference Range Interpretation Comments UA Ketones (test code Negative (12/26/21 11:03 = UA Ketones) AM) [facility] [id number] 16:03:54 Test Item Value Reference Range Interpretation Comments UA Bili (test code = Negative (12/26/21 11:03 UA Bili) AM) [facility] [id number] 16:03:54 Test Item Value Reference Range Interpretation Comments UA Blood (test code = Trace *ABN*(12/26/21 UA Blood) 11:03 AM) [facility] [id number] 16:03:54 Test Item Value Reference Range Interpretation Comments UA Urobilinogen (test code = UA 0.2 0.1-1.0 Urobilinogen) [facility] [id number] 16:03:54 Test Item Value Reference Range Interpretation Comments UA Nitrite (test code Negative (12/26/21 11:03 = UA Nitrite) AM) [facility] [id number] 16:03:54 Test Item Value Reference Range Interpretation Comments UA Leuk Est (test Negative (12/26/21 11:03 code = UA Leuk Est) AM) [facility] [id number] 16:03:54 Test Item Value Reference Range Interpretation Comments UA Sq Epi (test code = UA Sq Occasional /LPF Epi) [facility] [id number] 16:03:54 Test Item Value Reference Range Interpretation Comments UA WBC (test code = no gt See_Comment [Automa suze message] The UA WBC) system which ge nerated this result transmit suze reference range : <=5. The reference range was not used to interpr et this result as anselmo l/abnormal. [facility] AND [id number] 16:03:54 Test Item Value Reference Range Interpretation Comments UA RBC (test code = 12 See_Comment [Automa suze message] The UA RBC) system which ge nerated this result transmit suze reference range : <=2. The reference range was not used to interpr et this result as anselmo l/abnormal. [facility] [id number] 16:03:54 Test Item Value Reference Range Interpretation Comments U Sruthi Scr (test code Negative *NA*(12/26/21 = U Sruthi Scr) 11:03 AM) [facility] AND [id number] 16:03:54 Test Item Value Reference Range Interpretation Comments UA Mucus (test code = UA Mucus) Few /LPF [facility] [id number] 16:03:54 Test Item Value Reference Range Interpretation Comments U Benzodiaz Scr (test Negative *NA*(12/26/21 code = U Benzodiaz Scr) 11:03 AM) [facility] [id number] 16:03:54 Test Item Value Reference Range Interpretation Comments U Cocaine Scr (test Negative *NA*(12/26/21 code = U Cocaine Scr) 11:03 AM) [facility] [id number] 16:03:54 Test Item Value Reference Range Interpretation Comments U Cannab Scr (test Negative *NA*(12/26/21 code = U Cannab Scr) 11:03 AM) [facility]DR[facility] [id number] 16:03:54 Test Item Value Reference Range Interpretation Comments U Opiate Scr (test Negative *NA*(12/26/21 code = U Opiate Scr) 11:03 AM) [facility] [id number] 16:03:54 Test Item Value Reference Range Interpretation Comments U Phencyclidine Scr (test Negative code = U Phencyclidine *NA*(12/26/21 11:03 Scr) AM) [facility] [id number] 16:03:54 Test Item Value Reference Range Interpretation Comments U Methadone Scr (test Negative *NA*(12/26/21 code = U Methadone Scr) 11:03 AM) [facility] [id number] 16:03:54 Test Item Value Reference Range Interpretation Comments U Propoxyph Scr (test Negative *NA*(12/26/21 code = U Propoxyph Scr) 11:03 AM) [facility] [id number] 16:03:54 Test Item Value Reference Range Interpretation Comments UDS Note (test code = See Note (12/26/21 11:03 UDS Note) AM) [facility] [id number] 16:03:54 Test Item Value Reference Range Interpretation Comments UA Color (test code = Yellow (12/26/21 11:03 UA Color) AM) [facility] [id number] 16:03:54 Test Item Value Reference Range Interpretation Comments UA Turbidity (test code = Clear (12/26/21 11:03 UA Turbidity) AM) [facility] [id number] 16:03:54 Test Item Value Reference Range Interpretation Comments UA Spec Grav (test code = UA Spec 1.020 1 Grav) [facility] [id number] 16:03:54 Test Item Value Reference Range Interpretation Comments UA pH (test code = UA pH) 7.0 1 5.0-8.0 [facility] [id number] 16:03:54 Test Item Value Reference Range Interpretation Comments UA Protein (test code Negative (12/26/21 11:03 = UA Protein) AM) [facility] [id number] 16:03:54 Test Item Value Reference Range Interpretation Comments UA Glucose (test code Negative (12/26/21 11:03 = UA Glucose) AM) [facility] [id number] 16:03:54 Test Item Value Reference Range Interpretation Comments UA Ketones (test code Negative (12/26/21 11:03 = UA Ketones) AM) [facility] [id number] 16:03:54 Test Item Value Reference Range Interpretation Comments UA Bili (test code = Negative (12/26/21 11:03 UA Bili) AM) [facility] [id number] 16:03:54 Test Item Value Reference Range Interpretation Comments UA Blood (test code = Trace *ABN*(12/26/21 UA Blood) 11:03 AM) [facility] [id number] 16:03:54 Test Item Value Reference Range Interpretation Comments UA Urobilinogen (test code = UA 0.2 0.1-1.0 Urobilinogen) [facility] [id number] 16:03:54 Test Item Value Reference Range Interpretation Comments UA Nitrite (test code Negative (12/26/21 11:03 = UA Nitrite) AM) [facility] [id number] 16:03:54 Test Item Value Reference Range Interpretation Comments UA Leuk Est (test Negative (12/26/21 11:03 code = UA Leuk Est) AM) [facility] [id number] 16:03:54 Test Item Value Reference Range Interpretation Comments UA Sq Epi (test code = UA Sq Occasional /LPF Epi) [facility] [id number] 16:03:54 Test Item Value Reference Range Interpretation Comments UA WBC (test code = no gt See_Comment [Automa suze message] The UA WBC) system which ge nerated this result transmit suze reference range : <=5. The reference range was not used to interpr et this result as anselmo l/abnormal. [facility] [id number] 16:03:54 Test Item Value Reference Range Interpretation Comments UA RBC (test code = 12 See_Comment [Automa suze message] The UA RBC) system which ge nerated this result transmit suze reference range : <=2. The reference range was not used to interpr et this result as anselmo l/abnormal. [facility] [id number] 16:03:54 Test Item Value Reference Range Interpretation Comments UA Mucus (test code = UA Mucus) Few /LPF [facility] [id number] 16:03:54 Test Item Value Reference Range Interpretation Comments U Amph Scr (test code Negative *NA*(12/26/21 = U Amph Scr) 11:03 AM) [facility] [id number] 16:03:54 Test Item Value Reference Range Interpretation Comments U Sruthi Scr (test code Negative *NA*(12/26/21 = U Sruthi Scr) 11:03 AM) [facility] [id number] 16:03:54 Test Item Value Reference Range Interpretation Comments U Benzodiaz Scr (test Negative *NA*(12/26/21 code = U Benzodiaz Scr) 11:03 AM) [facility] [id number] 16:03:54 Test Item Value Reference Range Interpretation Comments U Cocaine Scr (test Negative *NA*(12/26/21 code = U Cocaine Scr) 11:03 AM) [facility] [id number] 16:03:54 Test Item Value Reference Range Interpretation Comments U Cannab Scr (test Negative *NA*(12/26/21 code = U Cannab Scr) 11:03 AM) [facility] [id number] 16:03:54 Test Item Value Reference Range Interpretation Comments U Opiate Scr (test Negative *NA*(12/26/21 code = U Opiate Scr) 11:03 AM) [facility] [id number] 16:03:54 Test Item Value Reference Range Interpretation Comments U Phencyclidine Scr (test Negative code = U Phencyclidine *NA*(12/26/21 11:03 Scr) AM) [facility] [id number] 16:03:54 Test Item Value Reference Range Interpretation Comments U Methadone Scr (test Negative *NA*(12/26/21 code = U Methadone Scr) 11:03 AM) [facility] [id number] 16:03:54 Test Item Value Reference Range Interpretation Comments U Propoxyph Scr (test Negative *NA*(12/26/21 code = U Propoxyph Scr) 11:03 AM) [facility] [id number] 16:03:54 Test Item Value Reference Range Interpretation Comments UDS Note (test code = See Note (12/26/21 11:03 UDS Note) AM) [facility] [id number] 16:03:54 Test Item Value Reference Range Interpretation Comments UA Color (test code = Yellow (12/26/21 11:03 UA Color) AM) [facility] [id number] 16:03:54 Test Item Value Reference Range Interpretation Comments UA Turbidity (test code = Clear (12/26/21 11:03 UA Turbidity) AM) [facility] AND [id number] 16:03:54 Test Item Value Reference Range Interpretation Comments UA Spec Grav (test code = UA Spec 1.020 1 Grav) [facility] AND [id number] 16:03:54 Test Item Value Reference Range Interpretation Comments UA pH (test code = UA pH) 7.0 1 5.0-8.0 [facility] AND [id number] 16:03:54 Test Item Value Reference Range Interpretation Comments UA Protein (test code Negative (12/26/21 11:03 = UA Protein) AM) [facility] [id number] 16:03:54 Test Item Value Reference Range Interpretation Comments UA Glucose (test code Negative (12/26/21 11:03 = UA Glucose) AM) [facility] AND [id number] 16:03:54 Test Item Value Reference Range Interpretation Comments UA Ketones (test code Negative (12/26/21 11:03 = UA Ketones) AM) [facility] AND [id number] 16:03:54 Test Item Value Reference Range Interpretation Comments UA Bili (test code = Negative (12/26/21 11:03 UA Bili) AM) [facility] AND [id number] 16:03:54 Test Item Value Reference Range Interpretation Comments UA Blood (test code = Trace *ABN*(12/26/21 UA Blood) 11:03 AM) [facility] AND [id number] 16:03:54 Test Item Value Reference Range Interpretation Comments UA Urobilinogen (test code = UA 0.2 0.1-1.0 Urobilinogen) [facility] AND [id number] 16:03:54 Test Item Value Reference Range Interpretation Comments UA Nitrite (test code Negative (12/26/21 11:03 = UA Nitrite) AM) [facility] AND [id number] 16:03:54 Test Item Value Reference Range Interpretation Comments UA Leuk Est (test Negative (12/26/21 11:03 code = UA Leuk Est) AM) [facility] AND [id number] 16:03:54 Test Item Value Reference Range Interpretation Comments UA Sq Epi (test code = UA Sq Occasional /LPF Epi) [facility] [id number] 16:03:54 Test Item Value Reference Range Interpretation Comments UA WBC (test code = no gt See_Comment [Automa suze message] The UA WBC) system which ge nerated this result transmit suze reference range : <=5. The reference range was not used to interpr et this result as anselmo l/abnormal. [facility] [id number] 16:03:54 Test Item Value Reference Range Interpretation Comments UA RBC (test code = 12 See_Comment [Automa suze message] The UA RBC) system which ge nerated this result transmit suze reference range : <=2. The reference range was not used to interpr et this result as anselmo l/abnormal. [facility] [id number] 16:03:54 Test Item Value Reference Range Interpretation Comments UA Mucus (test code = UA Mucus) Few /LPF [facility] [id number] 16:03:54 Test Item Value Reference Range Interpretation Comments U Amph Scr (test code Negative *NA*(12/26/21 = U Amph Scr) 11:03 AM) [facility] [id number] 16:03:54 Test Item Value Reference Range Interpretation Comments U Sruthi Scr (test code Negative *NA*(12/26/21 = U Sruthi Scr) 11:03 AM) [facility] [id number] 16:03:54 Test Item Value Reference Range Interpretation Comments U Benzodiaz Scr (test Negative *NA*(12/26/21 code = U Benzodiaz Scr) 11:03 AM) [facility] [id number] 16:03:54 Test Item Value Reference Range Interpretation Comments U Cocaine Scr (test Negative *NA*(12/26/21 code = U Cocaine Scr) 11:03 AM) [facility] [id number] 16:03:54 Test Item Value Reference Range Interpretation Comments U Amph Scr (test code Negative *NA*(12/26/21 = U Amph Scr) 11:03 AM) [facility] [id number] 16:03:54 Test Item Value Reference Range Interpretation Comments U Sruthi Scr (test code Negative *NA*(12/26/21 = U Sruthi Scr) 11:03 AM) [facility] [id number] 16:03:54 Test Item Value Reference Range Interpretation Comments U Benzodiaz Scr (test Negative *NA*(12/26/21 code = U Benzodiaz Scr) 11:03 AM) [facility] [id number] 16:03:54 Test Item Value Reference Range Interpretation Comments U Cocaine Scr (test Negative *NA*(12/26/21 code = U Cocaine Scr) 11:03 AM) [facility] [id number] 16:03:54 Test Item Value Reference Range Interpretation Comments U Cannab Scr (test Negative *NA*(12/26/21 code = U Cannab Scr) 11:03 AM) [facility] [id number] 16:03:54 Test Item Value Reference Range Interpretation Comments U Opiate Scr (test Negative *NA*(12/26/21 code = U Opiate Scr) 11:03 AM) [facility] [id number] 16:03:54 Test Item Value Reference Range Interpretation Comments U Phencyclidine Scr (test Negative code = U Phencyclidine *NA*(12/26/21 11:03 Scr) AM) [facility] [id number] 16:03:54 Test Item Value Reference Range Interpretation Comments U Methadone Scr (test Negative *NA*(12/26/21 code = U Methadone Scr) 11:03 AM) [facility] [id number] 16:03:54 Test Item Value Reference Range Interpretation Comments U Propoxyph Scr (test Negative *NA*(12/26/21 code = U Propoxyph Scr) 11:03 AM) [facility] [id number] 16:03:54 Test Item Value Reference Range Interpretation Comments UDS Note (test code = See Note (12/26/21 11:03 UDS Note) AM) [facility] [id number] 16:03:54 Test Item Value Reference Range Interpretation Comments UA Color (test code = Yellow (12/26/21 11:03 UA Color) AM) [facility] [id number] 16:03:54 Test Item Value Reference Range Interpretation Comments UA Turbidity (test code = Clear (12/26/21 11:03 UA Turbidity) AM) [facility] [id number] 16:03:54 Test Item Value Reference Range Interpretation Comments UA Spec Grav (test code = UA Spec 1.020 1 Grav) [facility] AND [id number] 16:03:54 Test Item Value Reference Range Interpretation Comments UA pH (test code = UA pH) 7.0 1 5.0-8.0 [facility] AND [id number] 16:03:54 Test Item Value Reference Range Interpretation Comments UA Protein (test code Negative (12/26/21 11:03 = UA Protein) AM) [facility] AND [id number] 16:03:54 Test Item Value Reference Range Interpretation Comments UA Glucose (test code Negative (12/26/21 11:03 = UA Glucose) AM) [facility] AND [id number] 16:03:54 Test Item Value Reference Range Interpretation Comments UA Ketones (test code Negative (12/26/21 11:03 = UA Ketones) AM) [facility] AND [id number] 16:03:54 Test Item Value Reference Range Interpretation Comments UA Bili (test code = Negative (12/26/21 11:03 UA Bili) AM) [facility] AND [id number] 16:03:54 Test Item Value Reference Range Interpretation Comments UA Blood (test code = Trace *ABN*(12/26/21 UA Blood) 11:03 AM) [facility] AND [id number] 16:03:54 Test Item Value Reference Range Interpretation Comments UA Urobilinogen (test code = UA 0.2 0.1-1.0 Urobilinogen) [facility] AND [id number] 16:03:54 Test Item Value Reference Range Interpretation Comments UA Nitrite (test code Negative (12/26/21 11:03 = UA Nitrite) AM) [facility] AND [id number] 16:03:54 Test Item Value Reference Range Interpretation Comments UA Leuk Est (test Negative (12/26/21 11:03 code = UA Leuk Est) AM) [facility] AND [id number] 16:03:54 Test Item Value Reference Range Interpretation Comments UA Sq Epi (test code = UA Sq Occasional /LPF Epi) [facility] AND [id number] 16:03:54 Test Item Value Reference Range Interpretation Comments UA WBC (test code = no gt See_Comment [Automa suze message] The UA WBC) system which ge nerated this result transmit suze reference range : <=5. The reference range was not used to interpr et this result as anselmo l/abnormal. [facility] [id number] 16:03:54 Test Item Value Reference Range Interpretation Comments UA RBC (test code = 12 See_Comment [Automa suze message] The UA RBC) system which ge nerated this result transmit suze reference range : <=2. The reference range was not used to interpr et this result as anselmo l/abnormal. [facility] [id number] 16:03:54 Test Item Value Reference Range Interpretation Comments UA Mucus (test code = UA Mucus) Few /LPF [facility] [id number] 16:03:54 Test Item Value Reference Range Interpretation Comments U Cannab Scr (test Negative *NA*(12/26/21 code = U Cannab Scr) 11:03 AM) [facility] [id number] 16:03:54 Test Item Value Reference Range Interpretation Comments U Opiate Scr (test Negative *NA*(12/26/21 code = U Opiate Scr) 11:03 AM) [facility] [id number] 16:03:54 Test Item Value Reference Range Interpretation Comments U Amph Scr (test code Negative *NA*(12/26/21 = U Amph Scr) 11:03 AM) [facility] [id number] 16:03:54 Test Item Value Reference Range Interpretation Comments U Sruthi Scr (test code Negative *NA*(12/26/21 = U Sruthi Scr) 11:03 AM) [facility] [id number] 16:03:54 Test Item Value Reference Range Interpretation Comments U Benzodiaz Scr (test Negative *NA*(12/26/21 code = U Benzodiaz Scr) 11:03 AM) [facility] [id number] 16:03:54 Test Item Value Reference Range Interpretation Comments U Cocaine Scr (test Negative *NA*(12/26/21 code = U Cocaine Scr) 11:03 AM) [facility] [id number] 16:03:54 Test Item Value Reference Range Interpretation Comments U Cannab Scr (test Negative *NA*(12/26/21 code = U Cannab Scr) 11:03 AM) [facility] [id number] 16:03:54 Test Item Value Reference Range Interpretation Comments U Opiate Scr (test Negative *NA*(12/26/21 code = U Opiate Scr) 11:03 AM) [facility] [id number] 16:03:54 Test Item Value Reference Range Interpretation Comments U Phencyclidine Scr (test Negative code = U Phencyclidine *NA*(12/26/21 11:03 Scr) AM) [facility] [id number] 16:03:54 Test Item Value Reference Range Interpretation Comments U Methadone Scr (test Negative *NA*(12/26/21 code = U Methadone Scr) 11:03 AM) [facility] [id number] 16:03:54 Test Item Value Reference Range Interpretation Comments U Propoxyph Scr (test Negative *NA*(12/26/21 code = U Propoxyph Scr) 11:03 AM) [facility] [id number] 16:03:54 Test Item Value Reference Range Interpretation Comments UDS Note (test code = See Note (12/26/21 11:03 UDS Note) AM) [facility] [id number] 16:03:54 Test Item Value Reference Range Interpretation Comments U Phencyclidine Scr (test Negative code = U Phencyclidine *NA*(12/26/21 11:03 Scr) AM) [facility] [id number] 16:03:54 Test Item Value Reference Range Interpretation Comments UA Color (test code = Yellow (12/26/21 11:03 UA Color) AM) [facility] [id number] 16:03:54 Test Item Value Reference Range Interpretation Comments UA Turbidity (test code = Clear (12/26/21 11:03 UA Turbidity) AM) [facility] [id number] 16:03:54 Test Item Value Reference Range Interpretation Comments UA Spec Grav (test code = UA Spec 1.020 1 Grav) [facility] [id number] 16:03:54 Test Item Value Reference Range Interpretation Comments UA pH (test code = UA pH) 7.0 1 5.0-8.0 [facility] [id number] 16:03:54 Test Item Value Reference Range Interpretation Comments UA Protein (test code Negative (12/26/21 11:03 = UA Protein) AM) [facility] [id number] 16:03:54 Test Item Value Reference Range Interpretation Comments UA Glucose (test code Negative (12/26/21 11:03 = UA Glucose) AM) [facility] [id number] 16:03:54 Test Item Value Reference Range Interpretation Comments UA Ketones (test code Negative (12/26/21 11:03 = UA Ketones) AM) [facility] [id number] 16:03:54 Test Item Value Reference Range Interpretation Comments UA Bili (test code = Negative (12/26/21 11:03 UA Bili) AM) [facility] [id number] 16:03:54 Test Item Value Reference Range Interpretation Comments UA Blood (test code = Trace *ABN*(12/26/21 UA Blood) 11:03 AM) [facility] [id number] 16:03:54 Test Item Value Reference Range Interpretation Comments UA Urobilinogen (test code = UA 0.2 0.1-1.0 Urobilinogen) [facility] [id number] 16:03:54 Test Item Value Reference Range Interpretation Comments U Methadone Scr (test Negative *NA*(12/26/21 code = U Methadone Scr) 11:03 AM) [facility] [id number] 16:03:54 Test Item Value Reference Range Interpretation Comments UA Nitrite (test code Negative (12/26/21 11:03 = UA Nitrite) AM) [facility] [id number] 16:03:54 Test Item Value Reference Range Interpretation Comments UA Leuk Est (test Negative (12/26/21 11:03 code = UA Leuk Est) AM) [facility] [id number] 16:03:54 Test Item Value Reference Range Interpretation Comments UA Sq Epi (test code = UA Sq Occasional /LPF Epi) [facility] [id number] 16:03:54 Test Item Value Reference Range Interpretation Comments UA WBC (test code = no gt See_Comment [Automa suze message] The UA WBC) system which ge nerated this result transmit suze reference range : <=5. The reference range was not used to interpr et this result as anselmo l/abnormal. [facility] [id number] 16:03:54 Test Item Value Reference Range Interpretation Comments UA RBC (test code = 12 See_Comment [Automa suze message] The UA RBC) system which ge nerated this result transmit suze reference range : <=2. The reference range was not used to interpr et this result as anselmo l/abnormal. [facility] [id number] 16:03:54 Test Item Value Reference Range Interpretation Comments UA Mucus (test code = UA Mucus) Few /LPF [facility] [id number] 16:03:54 Test Item Value Reference Range Interpretation Comments U Amph Scr (test code Negative *NA*(12/26/21 = U Amph Scr) 11:03 AM) [facility] [id number] 16:03:54 Test Item Value Reference Range Interpretation Comments U Sruthi Scr (test code Negative *NA*(12/26/21 = U Sruthi Scr) 11:03 AM) [facility] [id number] 16:03:54 Test Item Value Reference Range Interpretation Comments U Benzodiaz Scr (test Negative *NA*(12/26/21 code = U Benzodiaz Scr) 11:03 AM) [facility] [id number] 16:03:54 Test Item Value Reference Range Interpretation Comments U Cocaine Scr (test Negative *NA*(12/26/21 code = U Cocaine Scr) 11:03 AM) [facility] [id number] 16:03:54 Test Item Value Reference Range Interpretation Comments U Cannab Scr (test Negative *NA*(12/26/21 code = U Cannab Scr) 11:03 AM) [facility] [id number] 16:03:54 Test Item Value Reference Range Interpretation Comments U Opiate Scr (test Negative *NA*(12/26/21 code = U Opiate Scr) 11:03 AM) [facility] [id number] 16:03:54 Test Item Value Reference Range Interpretation Comments U Phencyclidine Scr (test Negative code = U Phencyclidine *NA*(12/26/21 11:03 Scr) AM) [facility] [id number] 16:03:54 Test Item Value Reference Range Interpretation Comments U Methadone Scr (test Negative *NA*(12/26/21 code = U Methadone Scr) 11:03 AM) [facility] [id number] 16:03:54 Test Item Value Reference Range Interpretation Comments U Propoxyph Scr (test Negative *NA*(12/26/21 code = U Propoxyph Scr) 11:03 AM) [facility] [id number] 16:03:54 Test Item Value Reference Range Interpretation Comments UDS Note (test code = See Note (12/26/21 11:03 UDS Note) AM) [facility] [id number] 16:03:54 Test Item Value Reference Range Interpretation Comments UA Color (test code = Yellow (12/26/21 11:03 UA Color) AM) [facility] [id number] 16:03:54 Test Item Value Reference Range Interpretation Comments UA Turbidity (test code = Clear (12/26/21 11:03 UA Turbidity) AM) [facility] [id number] 16:03:54 Test Item Value Reference Range Interpretation Comments UA Spec Grav (test code = UA Spec 1.020 1 Grav) [facility] [id number] 16:03:54 Test Item Value Reference Range Interpretation Comments UA pH (test code = UA pH) 7.0 1 5.0-8.0 [facility] [id number] 16:03:54 Test Item Value Reference Range Interpretation Comments UA Protein (test code Negative (12/26/21 11:03 = UA Protein) AM) [facility] [id number] 16:03:54 Test Item Value Reference Range Interpretation Comments UA Glucose (test code Negative (12/26/21 11:03 = UA Glucose) AM) [facility] [id number] 16:03:54 Test Item Value Reference Range Interpretation Comments UA Ketones (test code Negative (12/26/21 11:03 = UA Ketones) AM) [facility] [id number] 16:03:54 Test Item Value Reference Range Interpretation Comments UA Bili (test code = Negative (12/26/21 11:03 UA Bili) AM) [facility] [id number] 16:03:54 Test Item Value Reference Range Interpretation Comments UA Blood (test code = Trace *ABN*(12/26/21 UA Blood) 11:03 AM) [facility] [id number] 16:03:54 Test Item Value Reference Range Interpretation Comments UA Urobilinogen (test code = UA 0.2 0.1-1.0 Urobilinogen) [facility] [id number] 16:03:54 Test Item Value Reference Range Interpretation Comments UA Nitrite (test code Negative (12/26/21 11:03 = UA Nitrite) AM) [facility] [id number] 16:03:54 Test Item Value Reference Range Interpretation Comments UA Leuk Est (test Negative (12/26/21 11:03 code = UA Leuk Est) AM) [facility] [id number] 16:03:54 Test Item Value Reference Range Interpretation Comments UA Sq Epi (test code = UA Sq Occasional /LPF Epi) [facility] [id number] 16:03:54 Test Item Value Reference Range Interpretation Comments UA WBC (test code = no gt See_Comment [Automa suze message] The UA WBC) system which ge nerated this result transmit suze reference range : <=5. The reference range was not used to interpr et this result as anselmo l/abnormal. [facility] [id number] 16:03:54 Test Item Value Reference Range Interpretation Comments UA RBC (test code = 12 See_Comment [Automa suze message] The UA RBC) system which ge nerated this result transmit suze reference range : <=2. The reference range was not used to interpr et this result as anselmo l/abnormal. [facility] [id number] 16:03:54 Test Item Value Reference Range Interpretation Comments UA Mucus (test code = UA Mucus) Few /LPF [facility] [id number] 16:03:54 Test Item Value Reference Range Interpretation Comments U Propoxyph Scr (test Negative *NA*(12/26/21 code = U Propoxyph Scr) 11:03 AM) [facility] [id number] 16:03:54 Test Item Value Reference Range Interpretation Comments UDS Note (test code = See Note (12/26/21 11:03 UDS Note) AM) [facility] [id number] 16:03:54 Test Item Value Reference Range Interpretation Comments UA Color (test code = Yellow (12/26/21 11:03 UA Color) AM) [facility] [id number] 16:03:54 Test Item Value Reference Range Interpretation Comments UA Turbidity (test code = Clear (12/26/21 11:03 UA Turbidity) AM) [facility] [id number] 16:03:54 Test Item Value Reference Range Interpretation Comments UA Spec Grav (test code = UA Spec 1.020 1 Grav) [facility] [id number] 16:03:54 Test Item Value Reference Range Interpretation Comments UA pH (test code = UA pH) 7.0 1 5.0-8.0 [facility] [id number] 16:03:54 Test Item Value Reference Range Interpretation Comments U Amph Scr (test code Negative *NA*(12/26/21 = U Amph Scr) 11:03 AM) [facility] [id number] 16:03:54 Test Item Value Reference Range Interpretation Comments U Sruthi Scr (test code Negative *NA*(12/26/21 = U Sruthi Scr) 11:03 AM) [facility] [id number] 16:03:54 Test Item Value Reference Range Interpretation Comments U Benzodiaz Scr (test Negative *NA*(12/26/21 code = U Benzodiaz Scr) 11:03 AM) [facility] [id number] 16:03:54 Test Item Value Reference Range Interpretation Comments U Cocaine Scr (test Negative *NA*(12/26/21 code = U Cocaine Scr) 11:03 AM) [facility] [id number] 16:03:54 Test Item Value Reference Range Interpretation Comments U Cannab Scr (test Negative *NA*(12/26/21 code = U Cannab Scr) 11:03 AM) [facility] [id number] 16:03:54 Test Item Value Reference Range Interpretation Comments U Opiate Scr (test Negative *NA*(12/26/21 code = U Opiate Scr) 11:03 AM) [facility] [id number] 16:03:54 Test Item Value Reference Range Interpretation Comments U Phencyclidine Scr (test Negative code = U Phencyclidine *NA*(12/26/21 11:03 Scr) AM) [facility] [id number] 16:03:54 Test Item Value Reference Range Interpretation Comments U Methadone Scr (test Negative *NA*(12/26/21 code = U Methadone Scr) 11:03 AM) [facility] [id number] 16:03:54 Test Item Value Reference Range Interpretation Comments U Propoxyph Scr (test Negative *NA*(12/26/21 code = U Propoxyph Scr) 11:03 AM) [facility] [id number] 16:03:54 Test Item Value Reference Range Interpretation Comments UDS Note (test code = See Note (12/26/21 11:03 UDS Note) AM) [facility] [id number] 16:03:54 Test Item Value Reference Range Interpretation Comments UA Color (test code = Yellow (12/26/21 11:03 UA Color) AM) [facility] [id number] 16:03:54 Test Item Value Reference Range Interpretation Comments UA Turbidity (test code = Clear (12/26/21 11:03 UA Turbidity) AM) [facility] [id number] 16:03:54 Test Item Value Reference Range Interpretation Comments UA Spec Grav (test code = UA Spec 1.020 1 Grav) [facility] [id number] 16:03:54 Test Item Value Reference Range Interpretation Comments UA pH (test code = UA pH) 7.0 1 5.0-8.0 [facility] [id number] 16:03:54 Test Item Value Reference Range Interpretation Comments UA Protein (test code Negative (12/26/21 11:03 = UA Protein) AM) [facility] [id number] 16:03:54 Test Item Value Reference Range Interpretation Comments UA Glucose (test code Negative (12/26/21 11:03 = UA Glucose) AM) [facility] [id number] 16:03:54 Test Item Value Reference Range Interpretation Comments UA Ketones (test code Negative (12/26/21 11:03 = UA Ketones) AM) [facility] [id number] 16:03:54 Test Item Value Reference Range Interpretation Comments UA Bili (test code = Negative (12/26/21 11:03 UA Bili) AM) [facility] [id number] 16:03:54 Test Item Value Reference Range Interpretation Comments UA Blood (test code = Trace *ABN*(12/26/21 UA Blood) 11:03 AM) [facility] [id number] 16:03:54 Test Item Value Reference Range Interpretation Comments UA Urobilinogen (test code = UA 0.2 0.1-1.0 Urobilinogen) [facility] [facility] [id number] 16:03:54 Test Item Value Reference Range Interpretation Comments UA Nitrite (test code Negative (12/26/21 11:03 = UA Nitrite) AM) [facility] [id number] 16:03:54 Test Item Value Reference Range Interpretation Comments UA Leuk Est (test Negative (12/26/21 11:03 code = UA Leuk Est) AM) [facility] [id number] 16:03:54 Test Item Value Reference Range Interpretation Comments UA Sq Epi (test code = UA Sq Occasional /LPF Epi) [facility] [id number] 16:03:54 Test Item Value Reference Range Interpretation Comments UA WBC (test code = no gt See_Comment [Automa suze message] The UA WBC) system which ge nerated this result transmit suze reference range : <=5. The reference range was not used to interpr et this result as anselmo l/abnormal. [facility] [id number] 16:03:54 Test Item Value Reference Range Interpretation Comments UA RBC (test code = 12 See_Comment [Automa suze message] The UA RBC) system which ge nerated this result transmit suze reference range : <=2. The reference range was not used to interpr et this result as anselmo l/abnormal. [facility] [id number] 16:03:54 Test Item Value Reference Range Interpretation Comments UA Mucus (test code = UA Mucus) Few /LPF [facility] [id number] 16:03:54 Test Item Value Reference Range Interpretation Comments UA Protein (test code Negative (12/26/21 11:03 = UA Protein) AM) [facility] AND [id number] 16:03:54 Test Item Value Reference Range Interpretation Comments UA Glucose (test code Negative (12/26/21 11:03 = UA Glucose) AM) [facility] [id number] 16:03:54 Test Item Value Reference Range Interpretation Comments U Amph Scr (test code Negative *NA*(12/26/21 = U Amph Scr) 11:03 AM) [facility] AND [id number] 16:03:54 Test Item Value Reference Range Interpretation Comments UA Ketones (test code Negative (12/26/21 11:03 = UA Ketones) AM) [facility] [id number] 16:03:54 Test Item Value Reference Range Interpretation Comments U Sruthi Scr (test code Negative *NA*(12/26/21 = U Sruthi Scr) 11:03 AM) [facility] [id number] 16:03:54 Test Item Value Reference Range Interpretation Comments U Benzodiaz Scr (test Negative *NA*(12/26/21 code = U Benzodiaz Scr) 11:03 AM) [facility]2022-08-21 16:03:54 Test Item Value Reference Range Interpretation Comments U Cocaine Scr (test Negative *NA*(12/26/21 code = U Cocaine Scr) 11:03 AM) [facility] [id number] 16:03:54 Test Item Value Reference Range Interpretation Comments U Cannab Scr (test Negative *NA*(12/26/21 code = U Cannab Scr) 11:03 AM) [facility] [id number] 16:03:54 Test Item Value Reference Range Interpretation Comments U Opiate Scr (test Negative *NA*(12/26/21 code = U Opiate Scr) 11:03 AM) [facility] [id number] 16:03:54 Test Item Value Reference Range Interpretation Comments U Phencyclidine Scr (test Negative code = U Phencyclidine *NA*(12/26/21 11:03 Scr) AM) [facility]2022-08-21 16:03:54 Test Item Value Reference Range Interpretation Comments U Methadone Scr (test Negative *NA*(12/26/21 code = U Methadone Scr) 11:03 AM) [facility] [id number] 16:03:54 Test Item Value Reference Range Interpretation Comments U Propoxyph Scr (test Negative *NA*(12/26/21 code = U Propoxyph Scr) 11:03 AM) [facility] [id number] 16:03:54 Test Item Value Reference Range Interpretation Comments UDS Note (test code = See Note (12/26/21 11:03 UDS Note) AM) [facility] [id number] 16:03:54 Test Item Value Reference Range Interpretation Comments UA Color (test code = Yellow (12/26/21 11:03 UA Color) AM) [facility] [id number] 16:03:54 Test Item Value Reference Range Interpretation Comments UA Bili (test code = Negative (12/26/21 11:03 UA Bili) AM) [facility] [id number] 16:03:54 Test Item Value Reference Range Interpretation Comments UA Turbidity (test code = Clear (12/26/21 11:03 UA Turbidity) AM) [facility] [id number] 16:03:54 Test Item Value Reference Range Interpretation Comments UA Spec Grav (test code = UA Spec 1.020 1 Grav) [facility] [id number] 16:03:54 Test Item Value Reference Range Interpretation Comments UA pH (test code = UA pH) 7.0 1 5.0-8.0 [facility] [id number] 16:03:54 Test Item Value Reference Range Interpretation Comments UA Protein (test code Negative (12/26/21 11:03 = UA Protein) AM) [facility] [id number] 16:03:54 Test Item Value Reference Range Interpretation Comments UA Glucose (test code Negative (12/26/21 11:03 = UA Glucose) AM) [facility] [id number] 16:03:54 Test Item Value Reference Range Interpretation Comments UA Ketones (test code Negative (12/26/21 11:03 = UA Ketones) AM) [facility] [id number] 16:03:54 Test Item Value Reference Range Interpretation Comments UA Bili (test code = Negative (12/26/21 11:03 UA Bili) AM) [facility] [id number] 16:03:54 Test Item Value Reference Range Interpretation Comments UA Blood (test code = Trace *ABN*(12/26/21 UA Blood) 11:03 AM) [facility] [id number] 16:03:54 Test Item Value Reference Range Interpretation Comments UA Urobilinogen (test code = UA 0.2 0.1-1.0 Urobilinogen) [facility] [id number] 16:03:54 Test Item Value Reference Range Interpretation Comments UA Nitrite (test code Negative (12/26/21 11:03 = UA Nitrite) AM) [facility] [id number] 16:03:54 Test Item Value Reference Range Interpretation Comments UA Blood (test code = Trace *ABN*(12/26/21 UA Blood) 11:03 AM) [facility] [id number] 16:03:54 Test Item Value Reference Range Interpretation Comments UA Leuk Est (test Negative (12/26/21 11:03 code = UA Leuk Est) AM) [facility] [id number] 16:03:54 Test Item Value Reference Range Interpretation Comments UA Sq Epi (test code = UA Sq Occasional /LPF Epi) [facility] [id number] 16:03:54 Test Item Value Reference Range Interpretation Comments UA WBC (test code = no gt See_Comment [Automa suze message] The UA WBC) system which ge nerated this result transmit suze reference range : <=5. The reference range was not used to interpr et this result as anselmo l/abnormal. [facility] [id number] 16:03:54 Test Item Value Reference Range Interpretation Comments UA RBC (test code = 12 See_Comment [Automa suze message] The UA RBC) system which ge nerated this result transmit suze reference range : <=2. The reference range was not used to interpr et this result as anselmo l/abnormal. [facility] [id number] 16:03:54 Test Item Value Reference Range Interpretation Comments U Amph Scr (test code Negative *NA*(12/26/21 = U Amph Scr) 11:03 AM) [facility] [id number] 16:03:54 Test Item Value Reference Range Interpretation Comments U Sruthi Scr (test code Negative *NA*(12/26/21 = U Sruthi Scr) 11:03 AM) [facility] [id number] 16:03:54 Test Item Value Reference Range Interpretation Comments U Benzodiaz Scr (test Negative *NA*(12/26/21 code = U Benzodiaz Scr) 11:03 AM) [facility] [id number] 16:03:54 Test Item Value Reference Range Interpretation Comments U Cocaine Scr (test Negative *NA*(12/26/21 code = U Cocaine Scr) 11:03 AM) [facility] [id number] 16:03:54 Test Item Value Reference Range Interpretation Comments UA Mucus (test code = UA Mucus) Few /LPF [facility] [id number] 16:03:54 Test Item Value Reference Range Interpretation Comments U Cannab Scr (test Negative *NA*(12/26/21 code = U Cannab Scr) 11:03 AM) [facility] [id number] 16:03:54 Test Item Value Reference Range Interpretation Comments U Opiate Scr (test Negative *NA*(12/26/21 code = U Opiate Scr) 11:03 AM) [facility] [id number] 16:03:54 Test Item Value Reference Range Interpretation Comments U Phencyclidine Scr (test Negative code = U Phencyclidine *NA*(12/26/21 11:03 Scr) AM) [facility] [id number] 16:03:54 Test Item Value Reference Range Interpretation Comments U Methadone Scr (test Negative *NA*(12/26/21 code = U Methadone Scr) 11:03 AM) [facility] [id number] 16:03:54 Test Item Value Reference Range Interpretation Comments U Propoxyph Scr (test Negative *NA*(12/26/21 code = U Propoxyph Scr) 11:03 AM) [facility] [id number] 16:03:54 Test Item Value Reference Range Interpretation Comments UDS Note (test code = See Note (12/26/21 11:03 UDS Note) AM) [facility] [id number] 16:03:54 Test Item Value Reference Range Interpretation Comments UA Color (test code = Yellow (12/26/21 11:03 UA Color) AM) [facility] [id number] 16:03:54 Test Item Value Reference Range Interpretation Comments UA Turbidity (test code = Clear (12/26/21 11:03 UA Turbidity) AM) [facility] [id number] 16:03:54 Test Item Value Reference Range Interpretation Comments UA Spec Grav (test code = UA Spec 1.020 1 Grav) [facility] [id number] 16:03:54 Test Item Value Reference Range Interpretation Comments UA pH (test code = UA pH) 7.0 1 5.0-8.0 [facility] [id number] 16:03:54 Test Item Value Reference Range Interpretation Comments UA Protein (test code Negative (12/26/21 11:03 = UA Protein) AM) [facility] [id number] 16:03:54 Test Item Value Reference Range Interpretation Comments UA Glucose (test code Negative (12/26/21 11:03 = UA Glucose) AM) [facility] [id number] 16:03:54 Test Item Value Reference Range Interpretation Comments UA Ketones (test code Negative (12/26/21 11:03 = UA Ketones) AM) [facility] [id number] 16:03:54 Test Item Value Reference Range Interpretation Comments UA Bili (test code = Negative (12/26/21 11:03 UA Bili) AM) [facility] [id number] 16:03:54 Test Item Value Reference Range Interpretation Comments UA Blood (test code = Trace *ABN*(12/26/21 UA Blood) 11:03 AM) [facility] [id number] 16:03:54 Test Item Value Reference Range Interpretation Comments UA Urobilinogen (test code = UA 0.2 0.1-1.0 Urobilinogen) [facility] [id number] 16:03:54 Test Item Value Reference Range Interpretation Comments UA Nitrite (test code Negative (12/26/21 11:03 = UA Nitrite) AM) [facility] [id number] 16:03:54 Test Item Value Reference Range Interpretation Comments UA Leuk Est (test Negative (12/26/21 11:03 code = UA Leuk Est) AM) [facility] [id number] 16:03:54 Test Item Value Reference Range Interpretation Comments UA Sq Epi (test code = UA Sq Occasional /LPF Epi) [facility] AND [id number] 16:03:54 Test Item Value Reference Range Interpretation Comments UA WBC (test code = no gt See_Comment [Automa suze message] The UA WBC) system which ge nerated this result transmit suze reference range : <=5. The reference range was not used to interpr et this result as anselmo l/abnormal. [facility] [id number] 16:03:54 Test Item Value Reference Range Interpretation Comments UA RBC (test code = 12 See_Comment [Automa suze message] The UA RBC) system which ge nerated this result transmit suze reference range : <=2. The reference range was not used to interpr et this result as anselmo l/abnormal. [facility] [id number] 16:03:54 Test Item Value Reference Range Interpretation Comments UA Mucus (test code = UA Mucus) Few /LPF [facility] [id number] 16:03:54 Test Item Value Reference Range Interpretation Comments UA Urobilinogen (test code = UA 0.2 0.1-1.0 Urobilinogen) [facility] AND [id number] 16:03:54 Test Item Value Reference Range Interpretation Comments UA Nitrite (test code Negative (12/26/21 11:03 = UA Nitrite) AM) [facility] [id number] 16:03:54 Test Item Value Reference Range Interpretation Comments UA Leuk Est (test Negative (12/26/21 11:03 code = UA Leuk Est) AM) [facility] [id number] 16:03:54 Test Item Value Reference Range Interpretation Comments UA Sq Epi (test code = UA Sq Occasional /LPF Epi) [facility] [id number] 16:03:54 Test Item Value Reference Range Interpretation Comments UA WBC (test code = no gt See_Comment [Automa suze message] The UA WBC) system which ge nerated this result transmit suze reference range : <=5. The reference range was not used to interpr et this result as anselmo l/abnormal. [facility] [id number] 16:03:54 Test Item Value Reference Range Interpretation Comments UA RBC (test code = 12 See_Comment [Automa suze message] The UA RBC) system which ge nerated this result transmit suze reference range : <=2. The reference range was not used to interpr et this result as anselmo l/abnormal. [facility] [id number] 16:03:54 Test Item Value Reference Range Interpretation Comments UA Mucus (test code = UA Mucus) Few /LPF [facility] [id number] 16:03:54 Test Item Value Reference Range Interpretation Comments U Amph Scr (test code Negative *NA*(12/26/21 = U Amph Scr) 11:03 AM) [facility] [id number] 16:03:54 Test Item Value Reference Range Interpretation Comments U Sruthi Scr (test code Negative *NA*(12/26/21 = U Sruthi Scr) 11:03 AM) [facility] [id number] 16:03:54 Test Item Value Reference Range Interpretation Comments U Benzodiaz Scr (test Negative *NA*(12/26/21 code = U Benzodiaz Scr) 11:03 AM) [facility] [id number] 16:03:54 Test Item Value Reference Range Interpretation Comments U Cocaine Scr (test Negative *NA*(12/26/21 code = U Cocaine Scr) 11:03 AM) [facility] [id number] 16:03:54 Test Item Value Reference Range Interpretation Comments U Cannab Scr (test Negative *NA*(12/26/21 code = U Cannab Scr) 11:03 AM) [facility] [id number] 16:03:54 Test Item Value Reference Range Interpretation Comments U Opiate Scr (test Negative *NA*(12/26/21 code = U Opiate Scr) 11:03 AM) [facility] [id number] 16:03:54 Test Item Value Reference Range Interpretation Comments U Phencyclidine Scr (test Negative code = U Phencyclidine *NA*(12/26/21 11:03 Scr) AM) [facility] [id number] 16:03:54 Test Item Value Reference Range Interpretation Comments U Methadone Scr (test Negative *NA*(12/26/21 code = U Methadone Scr) 11:03 AM) [facility] [id number] 16:03:54 Test Item Value Reference Range Interpretation Comments U Propoxyph Scr (test Negative *NA*(12/26/21 code = U Propoxyph Scr) 11:03 AM) [facility] [id number] 16:03:54 Test Item Value Reference Range Interpretation Comments UDS Note (test code = See Note (12/26/21 11:03 UDS Note) AM) [facility] [id number] 16:03:54 Test Item Value Reference Range Interpretation Comments UA Color (test code = Yellow (12/26/21 11:03 UA Color) AM) [facility] [id number] 16:03:54 Test Item Value Reference Range Interpretation Comments UA Turbidity (test code = Clear (12/26/21 11:03 UA Turbidity) AM) [facility] [id number] 16:03:54 Test Item Value Reference Range Interpretation Comments UA Spec Grav (test code = UA Spec 1.020 1 Grav) [facility] [id number] 16:03:54 Test Item Value Reference Range Interpretation Comments UA pH (test code = UA pH) 7.0 1 5.0-8.0 [facility] [id number] 16:03:54 Test Item Value Reference Range Interpretation Comments UA Protein (test code Negative (12/26/21 11:03 = UA Protein) AM) [facility] [id number] 16:03:54 Test Item Value Reference Range Interpretation Comments UA Glucose (test code Negative (12/26/21 11:03 = UA Glucose) AM) [facility] [id number] 16:03:54 Test Item Value Reference Range Interpretation Comments UA Ketones (test code Negative (12/26/21 11:03 = UA Ketones) AM) [facility] [id number] 16:03:54 Test Item Value Reference Range Interpretation Comments UA Bili (test code = Negative (12/26/21 11:03 UA Bili) AM) [facility] [id number] 16:03:54 Test Item Value Reference Range Interpretation Comments UA Blood (test code = Trace *ABN*(12/26/21 UA Blood) 11:03 AM) [facility] [id number] 16:03:54 Test Item Value Reference Range Interpretation Comments UA Urobilinogen (test code = UA 0.2 0.1-1.0 Urobilinogen) [facility] [id number] 16:03:54 Test Item Value Reference Range Interpretation Comments UA Nitrite (test code Negative (12/26/21 11:03 = UA Nitrite) AM) [facility] AND [id number] 16:03:54 Test Item Value Reference Range Interpretation Comments UA Leuk Est (test Negative (12/26/21 11:03 code = UA Leuk Est) AM) [facility] AND [id number] 16:03:54 Test Item Value Reference Range Interpretation Comments UA Sq Epi (test code = UA Sq Occasional /LPF Epi) [facility] AND [id number] 16:03:54 Test Item Value Reference Range Interpretation Comments UA WBC (test code = no gt See_Comment [Automa suze message] The UA WBC) system which ge nerated this result transmit suze reference range : <=5. The reference range was not used to interpr et this result as anselmo l/abnormal. [facility] [id number] 16:03:54 Test Item Value Reference Range Interpretation Comments UA RBC (test code = 12 See_Comment [Automa suze message] The UA RBC) system which ge nerated this result transmit suze reference range : <=2. The reference range was not used to interpr et this result as anselmo l/abnormal. [facility] [id number] 16:03:54 Test Item Value Reference Range Interpretation Comments UA Mucus (test code = UA Mucus) Few /LPF [facility]annD[facility] [id number] 15:25:00 Test Item Value Reference Range Interpretation Comments Glucose Lvl (test code = Glucose Lvl) 90 70-99 [facility] [id number] 15:25:00 Test Item Value Reference Range Interpretation Comments BUN (test code = BUN) 18 7-22 [place] [id number] 15:25:00 Test Item Value Reference Range Interpretation Comments Creatinine Lvl (test code = Creatinine 0.96 0.50-1.40 Lvl) [place] [id number] 15:25:00 Test Item Value Reference Range Interpretation Comments Sodium Lvl (test code = Sodium Lvl) 144 135-145 [place] 826522-08-21 15:25:00 Test Item Value Reference Range Interpretation Comments Potassium Lvl (test code = Potassium 4.4 3.5-5.1 Lvl) [place] 826522-08-21 15:25:00 Test Item Value Reference Range Interpretation Comments Chloride Lvl (test code = Chloride Lvl) 112 95-109 [place] 826522-08-21 15:25:00 Test Item Value Reference Range Interpretation Comments CO2 (test code = CO2) 26 24-32 [place] 826522-08-21 15:25:00 Test Item Value Reference Range Interpretation Comments Calcium Lvl (test code = Calcium Lvl) 9.2 8.5-10.5 [place] 826522-08-21 15:25:00 Test Item Value Reference Range Interpretation Comments AGAP (test code = AGAP) 10.4 10.0-20.0 [place] 826522-08-21 15:25:00 Test Item Value Reference Range Interpretation Comments eGFR (test code = eGFR) 100 [place] 826522-08-21 15:25:00 Test Item Value Reference Range Interpretation Comments Magnesium Lvl (test code = Magnesium 2.1 1.8-2.4 Lvl) [place] 826522-08-21 15:25:00 Test Item Value Reference Range Interpretation Comments Phosphorus (test code = Phosphorus) 3.5 2.5-4.5 [place] [id number] 15:25:00 Test Item Value Reference Range Interpretation Comments WBC X 10x3 (test code = WBC X 10x3) 9.0 3.7-10.4 [place] 848172-08-21 15:25:00 Test Item Value Reference Range Interpretation Comments RBC X 10x6 (test code = RBC X 10x6) 4.66 4.70-6.10 [id number] 15:25:00 Test Item Value Reference Range Interpretation Comments Hgb (test code = Hgb) 14.5 14.0-18.0 [facility] H[id number] 15:25:00 Test Item Value Reference Range Interpretation Comments Hct (test code = Hct) 43.7 42.0-54.0 [facility] Hospit[id number] 15:25:00 Test Item Value Reference Range Interpretation Comments MCV (test code = MCV) 93.8 80.0-94.0 [facility] H[id number] 15:25:00 Test Item Value Reference Range Interpretation Comments MCH (test code = MCH) 31.1 pg 27.0-31.0 [facility] HospitalMyppnapUHWOXIGDKX5091-91-27 15:25:00 Test Item Value Reference Range Interpretation Comments MCHC (test code = MCHC) 33.1 32.0-36.0 [facility] H[id number] 15:25:00 Test Item Value Reference Range Interpretation Comments RDW (test code = RDW) 13.7 11.5-14.5 [facility] HospitalWvdlqxmHHUUYMWVNM9040-09-10 15:25:00 Test Item Value Reference Range Interpretation Comments Platelet (test code = Platelet) 214 133-450 [facility] HospitalVhlmugiVBHRJNIOXT7435-76-33 15:25:00 Test Item Value Reference Range Interpretation Comments MPV (test code = MPV) 9.1 7.4-10.4 [facility] Hos[id number] 15:25:00 Test Item Value Reference Range Interpretation Comments Segs (test code = Segs) 63.9 45.0-75.0 [place] 848172-08-21 15:25:00 Test Item Value Reference Range Interpretation Comments Lymphocytes (test code = Lymphocytes) 23.4 20.0-40.0 [place] 848172-08-21 15:25:00 Test Item Value Reference Range Interpretation Comments Monocytes (test code = Monocytes) 7.7 2.0-12.0 [place] 848172-08-21 15:25:00 Test Item Value Reference Range Interpretation Comments Eosinophils (test code = 4.3 See_Comment [A utomated message] The Eosinophils) system which ge nerated this result tra nsmitted reference range : <=4.0. The reference r peri was not used to int erpret this result as normal/abnormal . [facility] H[id number] 15:25:00 Test Item Value Reference Range Interpretation Comments Basophils (test code = 0.7 See_Comment [Aut omated message] The Basophils) system which ge nerated this result tra nsmitted reference range : <=1.0. The reference r peri was not used to int erpret this result as normal/abnormal . [facility] Ho[id number] 15:25:00 Test Item Value Reference Range Interpretation Comments Neutrophils # (test code = Neutrophils 5.8 1.5-8.1 #) [facility] Hos[id number] 15:25:00 Test Item Value Reference Range Interpretation Comments Lymphocytes # (test code = Lymphocytes 2.1 1.0-5.5 #) [facility] Hospit[id number] 15:25:00 Test Item Value Reference Range Interpretation Comments Monocytes # (test code 0.7 See_Comment [Aut omated message] The = Monocytes #) system which generated this result tra nsmitted reference range : <=0.8. The reference r peri was not used to int erpret this result as normal/abnormal . [facility] H[id number] 15:25:00 Test Item Value Reference Range Interpretation Comments Eosinophils # (test code 0.4 See_Comment [A utomated message] The = Eosinophils #) system [facility] h generated this result tra nsmitted reference range : <=0.5. The reference r peri was not used to int erpret this result as normal/abnormal . [id number] 15:25:00 Test Item Value Reference Range Interpretation Comments Basophils # (test code 0.1 See_Comment [Aut omated message] The = Basophils #) system which generated this result tra nsmitted reference range : <=0.2. The reference r peri was not used to int erpret this result as normal/abnormal . [facility]GWBG0160-95-58 15:25:00 Test Item Value Reference Range Interpretation Comments Acetaminoph Lvl (test code = no gt 10-20 Acetaminoph Lvl) [facility]ethEHZGLZAQWQ0697-96-77 15:25:00 Test Item Value Reference Range Interpretation Comments Ethanol Lvl (test code = Ethanol Lvl) no gt [place] [id number] 15:25:00 Test Item Value Reference Range Interpretation Comments Etoh (%) (test code = Etoh (%)) no gt [place] [id number] 15:25:00 Test Item Value Reference Range Interpretation Comments Salicylate Lvl (test 2.4 See_Comment [Autom ated message] The code = Salicylate Lvl) syste m which generated this result tra nsmitted reference range : <=30.0. The reference r peri was not used to int erpret this result as normal/abnormal . [facility] [employer] [id number] 15:25:00 Test Item Value Reference Range Interpretation Comments Glucose Lvl (test code = Glucose Lvl) 90 70-99 [facility] [employer] [id number] 15:25:00 Test Item Value Reference Range Interpretation Comments BUN (test code = BUN) 18 [facility] [id number] 15:25:00 Test Item Value Reference Range Interpretation Comments Creatinine Lvl (test code = Creatinine 0.96 0.50-1.40 Lvl) [facility] [employer] [id number] 15:25:00 Test Item Value Reference Range Interpretation Comments Sodium Lvl (test code = Sodium Lvl) 144 135-145 [facility] [id number] 15:25:00 Test Item Value Reference Range Interpretation Comments Potassium Lvl (test code = Potassium 4.4 3.5-5.1 Lvl) [facility] [employer] [id number] 15:25:00 Test Item Value Reference Range Interpretation Comments Chloride Lvl (test code = Chloride Lvl) 112 95-109 [facility] [employer] [id number] 15:25:00 Test Item Value Reference Range Interpretation Comments CO2 (test code = CO2) 24-32 [facility] [id number] 15:25:00 Test Item Value Reference Range Interpretation Comments Calcium Lvl (test code = Calcium Lvl) 9.2 8.5-10.5 [facility] [employer] [id number] 15:25:00 Test Item Value Reference Range Interpretation Comments AGAP (test code = AGAP) 10.4 10.0-20.0 [place] 826522-08-21 15:25:00 Test Item Value Reference Range Interpretation Comments eGFR (test code = eGFR) 100 [place] 826522-08-21 15:25:00 Test Item Value Reference Range Interpretation Comments Magnesium Lvl (test code = Magnesium 2.1 1.8-2.4 Lvl) [place] 826522-08-21 15:25:00 Test Item Value Reference Range Interpretation Comments Phosphorus (test code = Phosphorus) 3.5 2.5-4.5 [place] 848172-08-21 15:25:00 Test Item Value Reference Range Interpretation Comments WBC X 10x3 (test code = WBC X 10x3) 9.0 3.7-10.4 [place] 848172-08-21 15:25:00 Test Item Value Reference Range Interpretation Comments RBC X 10x6 (test code = RBC X 10x6) 4.66 4.70-6.10 [place] 848172-08-21 15:25:00 Test Item Value Reference Range Interpretation Comments Hgb (test code = Hgb) 14.5 14.0-18.0 [place] [address]-08-21 15:25:00 Test Item Value Reference Range Interpretation Comments Hct (test code = Hct) 43.7 42.0-54.0 [place] [address]-08-21 15:25:00 Test Item Value Reference Range Interpretation Comments MCV (test code = MCV) 93.8 80.0-94.0 [place] [address]-08-21 15:25:00 Test Item Value Reference Range Interpretation Comments MCH (test code = MCH) 31.1 pg 27.0-31.0 [place] [address]-08-21 15:25:00 Test Item Value Reference Range Interpretation Comments MCHC (test code = MCHC) 33.1 32.0-36.0 [place] 848172-08-21 15:25:00 Test Item Value Reference Range Interpretation Comments RDW (test code = RDW) 13.7 11.5-14.5 [place] 848172-08-21 15:25:00 Test Item Value Reference Range Interpretation Comments Platelet (test code = Platelet) 214 133-450 [facility] HospitalRwrcryeIJDPVMTHLW8208-96-94 15:25:00 Test Item Value Reference Range Interpretation Comments MPV (test code = MPV) 9.1 7.4-10.4 [facility] HospitalTzfnwtbOKLFJFVNVL8246-62-50 15:25:00 Test Item Value Reference Range Interpretation Comments Segs (test code = Segs) 63.9 45.0-75.0 [facility] HospitalBqlgexkHDRJYYALJC1864-44-99 15:25:00 Test Item Value Reference Range Interpretation Comments Lymphocytes (test code = Lymphocytes) 23.4 20.0-40.0 [place] 848172-08-21 15:25:00 Test Item Value Reference Range Interpretation Comments Monocytes (test code = Monocytes) 7.7 2.0-12.0 [facility] HospitalWgbsyboEYTTKONVTM6393-31-28 15:25:00 Test Item Value Reference Range Interpretation Comments Eosinophils (test code = 4.3 See_Comment [A utomated message] The Eosinophils) system which ge nerated this result tra nsmitted reference range : <=4.0. The reference r peri was not used to int erpret this result as normal/abnormal . [facility] HospitalAiorusxAEXTVUWVVY2352-37-02 15:25:00 Test Item Value Reference Range Interpretation Comments Basophils (test code = 0.7 See_Comment [Aut omated message] The Basophils) system which ge nerated this result tra nsmitted reference range : <=1.0. The reference r peri was not used to int erpret this result as normal/abnormal . [facility] HospitalHhclcyfGZUELBRKPJ6140-61-26 15:25:00 Test Item Value Reference Range Interpretation Comments Neutrophils # (test code = Neutrophils 5.8 1.5-8.1 #) [place] 848172-08-21 15:25:00 Test Item Value Reference Range Interpretation Comments Lymphocytes # (test code = Lymphocytes 2.1 1.0-5.5 #) [place] 848172-08-21 15:25:00 Test Item Value Reference Range Interpretation Comments Monocytes # (test code 0.7 See_Comment [Aut omated message] The = Monocytes #) system which generated this result tra nsmitted reference range : <=0.8. The reference r peri was not used to int erpret this result as normal/abnormal . [facility] CenterTkknasjPVPHWSVISD7061-80-45 15:25:00 Test Item Value Reference Range Interpretation Comments Eosinophils # (test code 0.4 See_Comment [A utomated message] The = Eosinophils #) system whic h generated this result tra nsmitted reference range : <=0.5. The reference r peri was not used to int erpret this result as normal/abnormal . [facility] CenterDlqmoshMZQDPZZKBX2499-93-06 15:25:00 Test Item Value Reference Range Interpretation Comments Basophils # (test code 0.1 See_Comment [Aut omated message] The = Basophils #) system which generated this result tra nsmitted reference range : <=0.2. The reference r peri was not used to int erpret this result as normal/abnormal . [facility] CenterGgdgfuyUIJMJTLACG7152-49-34 15:25:00 Test Item Value Reference Range Interpretation Comments Acetaminoph Lvl (test code = no gt 10-20 Acetaminoph Lvl) [facility]PtwhscgDYWEAYROBE6309-30-49 15:25:00 Test Item Value Reference Range Interpretation Comments Ethanol Lvl (test code = Ethanol Lvl) no gt [facility] CenterKuixupfIYUZUNSQAT4675-65-63 15:25:00 Test Item Value Reference Range Interpretation Comments Etoh (%) (test code = Etoh (%)) no gt [facility] CenterZzfuzosRTFCGORTNC6123-18-77 15:25:00 Test Item Value Reference Range Interpretation Comments Salicylate Lvl (test 2.4 See_Comment [Autom ated message] The code = Salicylate Lvl) syste m which generated this result tra nsmitted reference range : <=30.0. The reference r peri was not used to int erpret this result as normal/abnormal . [facility] [employer] [id number] 15:25:00 Test Item Value Reference Range Interpretation Comments Glucose Lvl (test code = Glucose Lvl) 90 70-99 [facility] [employer] [id number] 15:25:00 Test Item Value Reference Range Interpretation Comments BUN (test code = BUN) 18 7-22 [facility] [employer] [id number] 15:25:00 Test Item Value Reference Range Interpretation Comments Creatinine Lvl (test code = Creatinine 0.96 0.50-1.40 Lvl) [place] 826522-08-21 15:25:00 Test Item Value Reference Range Interpretation Comments Sodium Lvl (test code = Sodium Lvl) 144 135-145 [place] 826522-08-21 15:25:00 Test Item Value Reference Range Interpretation Comments Potassium Lvl (test code = Potassium 4.4 3.5-5.1 Lvl) [place] 826522-08-21 15:25:00 Test Item Value Reference Range Interpretation Comments Chloride Lvl (test code = Chloride Lvl) 112 95-109 [place] 826522-08-21 15:25:00 Test Item Value Reference Range Interpretation Comments CO2 (test code = CO2) 26 24-32 [place] 826522-08-21 15:25:00 Test Item Value Reference Range Interpretation Comments Calcium Lvl (test code = Calcium Lvl) 9.2 8.5-10.5 [place] 826522-08-21 15:25:00 Test Item Value Reference Range Interpretation Comments AGAP (test code = AGAP) 10.4 10.0-20.0 [place] 826522-08-21 15:25:00 Test Item Value Reference Range Interpretation Comments eGFR (test code = eGFR) 100 [place] 826522-08-21 15:25:00 Test Item Value Reference Range Interpretation Comments Magnesium Lvl (test code = Magnesium 2.1 1.8-2.4 Lvl) [place] 826522-08-21 15:25:00 Test Item Value Reference Range Interpretation Comments Phosphorus (test code = Phosphorus) 3.5 2.5-4.5 [place] 848172-08-21 15:25:00 Test Item Value Reference Range Interpretation Comments WBC X 10x3 (test code = WBC X 10x3) 9.0 3.7-10.4 [place] 848172-08-21 15:25:00 Test Item Value Reference Range Interpretation Comments RBC X 10x6 (test code = RBC X 10x6) 4.66 4.70-6.10 [place] 848172-08-21 15:25:00 Test Item Value Reference Range Interpretation Comments Hgb (test code = Hgb) 14.5 14.0-18.0 [place] 848172-08-21 15:25:00 Test Item Value Reference Range Interpretation Comments Hct (test code = Hct) 43.7 42.0-54.0 [place] 848172-08-21 15:25:00 Test Item Value Reference Range Interpretation Comments MCV (test code = MCV) 93.8 80.0-94.0 [place] [address]-08-21 15:25:00 Test Item Value Reference Range Interpretation Comments MCH (test code = MCH) 31.1 pg 27.0-31.0 [place] [address]-08-21 15:25:00 Test Item Value Reference Range Interpretation Comments MCHC (test code = MCHC) 33.1 32.0-36.0 [place] 848172-08-21 15:25:00 Test Item Value Reference Range Interpretation Comments RDW (test code = RDW) 13.7 11.5-14.5 [place] 848172-08-21 15:25:00 Test Item Value Reference Range Interpretation Comments Platelet (test code = Platelet) 214 133-450 [facility]2022-08-21 15:25:00 Test Item Value Reference Range Interpretation Comments Glucose Lvl (test code = Glucose Lvl) 90 70-99 [place] 826522-08-21 15:25:00 Test Item Value Reference Range Interpretation Comments BUN (test code = BUN) 18 7-22 [place] 826522-08-21 15:25:00 Test Item Value Reference Range Interpretation Comments Creatinine Lvl (test code = Creatinine 0.96 0.50-1.40 Lvl) [place] 848172-08-21 15:25:00 Test Item Value Reference Range Interpretation Comments MPV (test code = MPV) 9.1 7.4-10.4 [place] 826522-08-21 15:25:00 Test Item Value Reference Range Interpretation Comments Sodium Lvl (test code = Sodium Lvl) 144 135-145 [place] 826522-08-21 15:25:00 Test Item Value Reference Range Interpretation Comments Potassium Lvl (test code = Potassium 4.4 3.5-5.1 Lvl) [place] 826522-08-21 15:25:00 Test Item Value Reference Range Interpretation Comments Chloride Lvl (test code = Chloride Lvl) 112 95-109 [place] 826522-08-21 15:25:00 Test Item Value Reference Range Interpretation Comments CO2 (test code = CO2) 26 24-32 [place] 826522-08-21 15:25:00 Test Item Value Reference Range Interpretation Comments Calcium Lvl (test code = Calcium Lvl) 9.2 8.5-10.5 [place] 826522-08-21 15:25:00 Test Item Value Reference Range Interpretation Comments AGAP (test code = AGAP) 10.4 10.0-20.0 [place] 826522-08-21 15:25:00 Test Item Value Reference Range Interpretation Comments eGFR (test code = eGFR) 100 [place] 826522-08-21 15:25:00 Test Item Value Reference Range Interpretation Comments Magnesium Lvl (test code = Magnesium 2.1 1.8-2.4 Lvl) [place] 826522-08-21 15:25:00 Test Item Value Reference Range Interpretation Comments Phosphorus (test code = Phosphorus) 3.5 2.5-4.5 [place] 848172-08-21 15:25:00 Test Item Value Reference Range Interpretation Comments WBC X 10x3 (test code = WBC X 10x3) 9.0 3.7-10.4 [place] 848172-08-21 15:25:00 Test Item Value Reference Range Interpretation Comments Segs (test code = Segs) 63.9 45.0-75.0 [place] 848172-08-21 15:25:00 Test Item Value Reference Range Interpretation Comments RBC X 10x6 (test code = RBC X 10x6) 4.66 4.70-6.10 [place] 848172-08-21 15:25:00 Test Item Value Reference Range Interpretation Comments Hgb (test code = Hgb) 14.5 14.0-18.0 [place] [address]-08-21 15:25:00 Test Item Value Reference Range Interpretation Comments Hct (test code = Hct) 43.7 42.0-54.0 [place] 848172-08-21 15:25:00 Test Item Value Reference Range Interpretation Comments MCV (test code = MCV) 93.8 80.0-94.0 [place] [address]-08-21 15:25:00 Test Item Value Reference Range Interpretation Comments MCH (test code = MCH) 31.1 pg 27.0-31.0 [place] 848172-08-21 15:25:00 Test Item Value Reference Range Interpretation Comments MCHC (test code = MCHC) 33.1 32.0-36.0 [place] 848172-08-21 15:25:00 Test Item Value Reference Range Interpretation Comments RDW (test code = RDW) 13.7 11.5-14.5 [place] 848172-08-21 15:25:00 Test Item Value Reference Range Interpretation Comments Platelet (test code = Platelet) 214 133-450 [place] 848172-08-21 15:25:00 Test Item Value Reference Range Interpretation Comments MPV (test code = MPV) 9.1 7.4-10.4 [place] 848172-08-21 15:25:00 Test Item Value Reference Range Interpretation Comments Segs (test code = Segs) 63.9 45.0-75.0 [place] 848172-08-21 15:25:00 Test Item Value Reference Range Interpretation Comments Lymphocytes (test code = Lymphocytes) 23.4 20.0-40.0 [place] [address]-08-21 15:25:00 Test Item Value Reference Range Interpretation Comments Lymphocytes (test code = Lymphocytes) 23.4 20.0-40.0 [place] 848172-08-21 15:25:00 Test Item Value Reference Range Interpretation Comments Monocytes (test code = Monocytes) 7.7 2.0-12.0 [place] 848172-08-21 15:25:00 Test Item Value Reference Range Interpretation Comments Eosinophils (test code = 4.3 See_Comment [A utomated message] The Eosinophils) system which ge nerated this result tra nsmitted reference range : <=4.0. The reference r peri was not used to int erpret this result as normal/abnormal . [place] [address]-08-21 15:25:00 Test Item Value Reference Range Interpretation Comments Basophils (test code = 0.7 See_Comment [Aut omated message] The Basophils) system which ge nerated this result tra nsmitted reference range : <=1.0. The reference r peri was not used to int erpret this result as normal/abnormal . [place] 848172-08-21 15:25:00 Test Item Value Reference Range Interpretation Comments Neutrophils # (test code = Neutrophils 5.8 1.5-8.1 #) [place] 848172-08-21 15:25:00 Test Item Value Reference Range Interpretation Comments Lymphocytes # (test code = Lymphocytes 2.1 1.0-5.5 #) [place] 848172-08-21 15:25:00 Test Item Value Reference Range Interpretation Comments Monocytes # (test code 0.7 See_Comment [Aut omated message] The = Monocytes #) system which generated this result tra nsmitted reference range : <=0.8. The reference r peri was not used to int erpret this result as normal/abnormal . [place] 848172-08-21 15:25:00 Test Item Value Reference Range Interpretation Comments Eosinophils # (test code 0.4 See_Comment [A utomated message] The = Eosinophils #) system whic h generated this result tra nsmitted reference range : <=0.5. The reference r peri was not used to int erpret this result as normal/abnormal . [place] 848172-08-21 15:25:00 Test Item Value Reference Range Interpretation Comments Basophils # (test code 0.1 See_Comment [Aut omated message] The = Basophils #) system which generated this result tra nsmitted reference range : <=0.2. The reference r peri was not used to int erpret this result as normal/abnormal . [place] 510672-08-21 15:25:00 Test Item Value Reference Range Interpretation Comments Acetaminoph Lvl (test code = no gt 10-20 Acetaminoph Lvl) [facility] HospitalUxvvsbyKXUQKGWRWL0660-54-52 15:25:00 Test Item Value Reference Range Interpretation Comments Monocytes (test code = Monocytes) 7.7 2.0-12.0 [place] 510672-08-21 15:25:00 Test Item Value Reference Range Interpretation Comments Ethanol Lvl (test code = Ethanol Lvl) no gt [place] 510672-08-21 15:25:00 Test Item Value Reference Range Interpretation Comments Etoh (%) (test code = Etoh (%)) no gt [facility]SczjmsgXWBXAACJNL5147-88-90 15:25:00 Test Item Value Reference Range Interpretation Comments Salicylate Lvl (test 2.4 See_Comment [Autom ated message] The code = Salicylate Lvl) syste m which generated this result tra nsmitted reference range : <=30.0. The reference r peri was not used to int erpret this result as normal/abnormal . [facility] HospitalRcwvszkMPCXSXBICE8668-68-02 15:25:00 Test Item Value Reference Range Interpretation Comments Eosinophils (test code = 4.3 See_Comment [A utomated message] The Eosinophils) system which ge nerated this result tra nsmitted reference range : <=4.0. The reference r peri was not used to int erpret this result as normal/abnormal . [facility] HospitalXarlgmiNRTYDAWDVQ4755-79-57 15:25:00 Test Item Value Reference Range Interpretation Comments Basophils (test code = 0.7 See_Comment [Aut omated message] The Basophils) system which ge nerated this result tra nsmitted reference range : <=1.0. The reference r peri was not used to int erpret this result as normal/abnormal . [facility] HospitalCrmivjmCDEQEXKCSI3376-51-23 15:25:00 Test Item Value Reference Range Interpretation Comments Neutrophils # (test code = Neutrophils 5.8 1.5-8.1 #) [facility] HospitalTeocwsqIMWNHUUEJG5335-71-06 15:25:00 Test Item Value Reference Range Interpretation Comments Lymphocytes # (test code = Lymphocytes 2.1 1.0-5.5 #) [place] 848172-08-21 15:25:00 Test Item Value Reference Range Interpretation Comments Monocytes # (test code 0.7 See_Comment [Aut omated message] The = Monocytes #) system which generated this result tra nsmitted reference range : <=0.8. The reference r peri was not used to int erpret this result as normal/abnormal . [facility] HospitalXphqdusKDNOVLEIEZ4819-19-63 15:25:00 Test Item Value Reference Range Interpretation Comments Eosinophils # (test code 0.4 See_Comment [A utomated message] The = Eosinophils #) system whic h generated this result tra nsmitted reference range : <=0.5. The reference r peri was not used to int erpret this result as normal/abnormal . [facility] HospitalPzpoplmYINPCULLGG7618-94-59 15:25:00 Test Item Value Reference Range Interpretation Comments Basophils # (test code 0.1 See_Comment [Aut omated message] The = Basophils #) system which generated this result tra nsmitted reference range : <=0.2. The reference r peri was not used to int erpret this result as normal/abnormal . [facility] CenterCsecoeyYYHTJHRFRN1196-21-32 15:25:00 Test Item Value Reference Range Interpretation Comments Acetaminoph Lvl (test code = no gt 10-20 Acetaminoph Lvl) [facility]fv[facility]yFTKDCBYHOE8337-75-43 15:25:00 Test Item Value Reference Range Interpretation Comments Ethanol Lvl (test code = Ethanol Lvl) no gt [facility] HospitalFvvdegxSSVZCLYCGC0963-74-05 15:25:00 Test Item Value Reference Range Interpretation Comments Etoh (%) (test code = Etoh (%)) no gt [facility] CenterXgxhqanMEIKBCMPHJ4639-00-03 15:25:00 Test Item Value Reference Range Interpretation Comments Salicylate Lvl (test 2.4 See_Comment [Autom ated message] The code = Salicylate Lvl) syste m which generated this result tra nsmitted reference range : <=30.0. The reference r peri was not used to int erpret this result as normal/abnormal . [facility] [id number] 15:25:00 Test Item Value Reference Range Interpretation Comments Glucose Lvl (test code = Glucose Lvl) 90 70-99 [facility] [employer] UYYXO7336-12-16 15:25:00 Test Item Value Reference Range Interpretation Comments BUN (test code = BUN) 18 7-22 [facility] [id number] 15:25:00 Test Item Value Reference Range Interpretation Comments Creatinine Lvl (test code = Creatinine 0.96 0.50-1.40 Lvl) [facility] [id number] 15:25:00 Test Item Value Reference Range Interpretation Comments Sodium Lvl (test code = Sodium Lvl) 144 135-145 [facility] [employer] [id number] 15:25:00 Test Item Value Reference Range Interpretation Comments Potassium Lvl (test code = Potassium 4.4 3.5-5.1 Lvl) [place] 826522-08-21 15:25:00 Test Item Value Reference Range Interpretation Comments Chloride Lvl (test code = Chloride Lvl) 112 95-109 [place] 826522-08-21 15:25:00 Test Item Value Reference Range Interpretation Comments CO2 (test code = CO2) 26 24-32 [place] 826522-08-21 15:25:00 Test Item Value Reference Range Interpretation Comments Calcium Lvl (test code = Calcium Lvl) 9.2 8.5-10.5 [place] 826522-08-21 15:25:00 Test Item Value Reference Range Interpretation Comments AGAP (test code = AGAP) 10.4 10.0-20.0 [place] 826522-08-21 15:25:00 Test Item Value Reference Range Interpretation Comments eGFR (test code = eGFR) 100 [place] 826522-08-21 15:25:00 Test Item Value Reference Range Interpretation Comments Magnesium Lvl (test code = Magnesium 2.1 1.8-2.4 Lvl) [place] 826522-08-21 15:25:00 Test Item Value Reference Range Interpretation Comments Phosphorus (test code = Phosphorus) 3.5 2.5-4.5 [place] [address]-08-21 15:25:00 Test Item Value Reference Range Interpretation Comments WBC X 10x3 (test code = WBC X 10x3) 9.0 3.7-10.4 [place] [address]-08-21 15:25:00 Test Item Value Reference Range Interpretation Comments RBC X 10x6 (test code = RBC X 10x6) 4.66 4.70-6.10 [place] [address]-08-21 15:25:00 Test Item Value Reference Range Interpretation Comments Hgb (test code = Hgb) 14.5 14.0-18.0 [place] [address]-08-21 15:25:00 Test Item Value Reference Range Interpretation Comments Hct (test code = Hct) 43.7 42.0-54.0 [place] [address]-08-21 15:25:00 Test Item Value Reference Range Interpretation Comments MCV (test code = MCV) 93.8 80.0-94.0 [place] 848172-08-21 15:25:00 Test Item Value Reference Range Interpretation Comments MCH (test code = MCH) 31.1 pg 27.0-31.0 [place] 848172-08-21 15:25:00 Test Item Value Reference Range Interpretation Comments MCHC (test code = MCHC) 33.1 32.0-36.0 [place] 848172-08-21 15:25:00 Test Item Value Reference Range Interpretation Comments RDW (test code = RDW) 13.7 11.5-14.5 [place] 848172-08-21 15:25:00 Test Item Value Reference Range Interpretation Comments Platelet (test code = Platelet) 214 133-450 [place] 848172-08-21 15:25:00 Test Item Value Reference Range Interpretation Comments MPV (test code = MPV) 9.1 7.4-10.4 [place] 848172-08-21 15:25:00 Test Item Value Reference Range Interpretation Comments Segs (test code = Segs) 63.9 45.0-75.0 [place] 848172-08-21 15:25:00 Test Item Value Reference Range Interpretation Comments Lymphocytes (test code = Lymphocytes) 23.4 20.0-40.0 [place] 848172-08-21 15:25:00 Test Item Value Reference Range Interpretation Comments Monocytes (test code = Monocytes) 7.7 2.0-12.0 [place] 848172-08-21 15:25:00 Test Item Value Reference Range Interpretation Comments Eosinophils (test code = 4.3 See_Comment [A utomated message] The Eosinophils) system which ge nerated this result tra nsmitted reference range : <=4.0. The reference r peri was not used to int erpret this result as normal/abnormal . [place] 848172-08-21 15:25:00 Test Item Value Reference Range Interpretation Comments Basophils (test code = 0.7 See_Comment [Aut omated message] The Basophils) system which ge nerated this result tra nsmitted reference range : <=1.0. The reference r peri was not used to int erpret this result as normal/abnormal . [place] 848172-08-21 15:25:00 Test Item Value Reference Range Interpretation Comments Neutrophils # (test code = Neutrophils 5.8 1.5-8.1 #) [facility]wbsnaxBVJVVVBARY5586-76-29 15:25:00 Test Item Value Reference Range Interpretation Comments Lymphocytes # (test code = Lymphocytes 2.1 1.0-5.5 #) [facility] HospitalAshutxyQPSMPLJSAI7305-42-39 15:25:00 Test Item Value Reference Range Interpretation Comments Monocytes # (test code 0.7 See_Comment [Aut omated message] The = Monocytes #) system which generated this result tra nsmitted reference range : <=0.8. The reference r peri was not used to int erpret this result as normal/abnormal . [facility] HospitalHrqvbjcAWWCLDKUCI7536-33-15 15:25:00 Test Item Value Reference Range Interpretation Comments Eosinophils # (test code 0.4 See_Comment [A utomated message] The = Eosinophils #) system whic h generated this result tra nsmitted reference range : <=0.5. The reference r peri was not used to int erpret this result as normal/abnormal . [facility] HospitalPqjddhhINASFRHRDS8357-11-98 15:25:00 Test Item Value Reference Range Interpretation Comments Basophils # (test code 0.1 See_Comment [Aut omated message] The = Basophils #) system which generated this result tra nsmitted reference range : <=0.2. The reference r peri was not used to int erpret this result as normal/abnormal . [place] 66082022-08-21 15:25:00 Test Item Value Reference Range Interpretation Comments Acetaminoph Lvl (test code = no gt 10-20 Acetaminoph Lvl) [place] 66082022-08-21 15:25:00 Test Item Value Reference Range Interpretation Comments Ethanol Lvl (test code = Ethanol Lvl) no gt [place] 66082022-08-21 15:25:00 Test Item Value Reference Range Interpretation Comments Etoh (%) (test code = Etoh (%)) no gt [place] 66082022-08-21 15:25:00 Test Item Value Reference Range Interpretation Comments Salicylate Lvl (test 2.4 See_Comment [Autom ated message] The code = Salicylate Lvl) syste m which generated this result tra nsmitted reference range : <=30.0. The reference r peri was not used to int erpret this result as normal/abnormal . [facility]2022-08-21 15:25:00 Test Item Value Reference Range Interpretation Comments Glucose Lvl (test code = Glucose Lvl) 90 70-99 [facility]2022-08-21 15:25:00 Test Item Value Reference Range Interpretation Comments BUN (test code = BUN) 18 11-26 [place] 826522-08-21 15:25:00 Test Item Value Reference Range Interpretation Comments Creatinine Lvl (test code = Creatinine 0.96 0.50-1.40 Lvl) [place] 826522-08-21 15:25:00 Test Item Value Reference Range Interpretation Comments Sodium Lvl (test code = Sodium Lvl) 144 135-145 [place] 826522-08-21 15:25:00 Test Item Value Reference Range Interpretation Comments Glucose Lvl (test code = Glucose Lvl) 90 - [facility]2022-08-21 15:25:00 Test Item Value Reference Range Interpretation Comments BUN (test code = BUN) 18 11-26 [place] 826522-08-21 15:25:00 Test Item Value Reference Range Interpretation Comments Potassium Lvl (test code = Potassium 4.4 3.5-5.1 Lvl) [facility]2022-08-21 15:25:00 Test Item Value Reference Range Interpretation Comments Creatinine Lvl (test code = Creatinine 0.96 0.50-1.40 Lvl) [place] 826522-08-21 15:25:00 Test Item Value Reference Range Interpretation Comments Sodium Lvl (test code = Sodium Lvl) 144 135-145 [place] 826522-08-21 15:25:00 Test Item Value Reference Range Interpretation Comments Potassium Lvl (test code = Potassium 4.4 3.5-5.1 Lvl) [facility]2022-08-21 15:25:00 Test Item Value Reference Range Interpretation Comments Chloride Lvl (test code = Chloride Lvl) 112 95-109 [place] 826522-08-21 15:25:00 Test Item Value Reference Range Interpretation Comments CO2 (test code = CO2) -32 [place] 826522-08-21 15:25:00 Test Item Value Reference Range Interpretation Comments Calcium Lvl (test code = Calcium Lvl) 9.2 8.5-10.5 [place] 826522-08-21 15:25:00 Test Item Value Reference Range Interpretation Comments AGAP (test code = AGAP) 10.4 10.0-20.0 [place] 826522-08-21 15:25:00 Test Item Value Reference Range Interpretation Comments eGFR (test code = eGFR) 100 [place] 826522-08-21 15:25:00 Test Item Value Reference Range Interpretation Comments Magnesium Lvl (test code = Magnesium 2.1 1.8-2.4 Lvl) [place] 826522-08-21 15:25:00 Test Item Value Reference Range Interpretation Comments Phosphorus (test code = Phosphorus) 3.5 2.5-4.5 [place] 826522-08-21 15:25:00 Test Item Value Reference Range Interpretation Comments Chloride Lvl (test code = Chloride Lvl) 112 95-109 [place] 848172-08-21 15:25:00 Test Item Value Reference Range Interpretation Comments WBC X 10x3 (test code = WBC X 10x3) 9.0 3.7-10.4 [place] 848172-08-21 15:25:00 Test Item Value Reference Range Interpretation Comments RBC X 10x6 (test code = RBC X 10x6) 4.66 4.70-6.10 [place] 848172-08-21 15:25:00 Test Item Value Reference Range Interpretation Comments Hgb (test code = Hgb) 14.5 14.0-18.0 [place] [address]-08-21 15:25:00 Test Item Value Reference Range Interpretation Comments Hct (test code = Hct) 43.7 42.0-54.0 [place] [address]-08-21 15:25:00 Test Item Value Reference Range Interpretation Comments MCV (test code = MCV) 93.8 80.0-94.0 [place] [address]-08-21 15:25:00 Test Item Value Reference Range Interpretation Comments MCH (test code = MCH) 31.1 pg 27.0-31.0 [place] [address]-08-21 15:25:00 Test Item Value Reference Range Interpretation Comments MCHC (test code = MCHC) 33.1 32.0-36.0 [place] 848172-08-21 15:25:00 Test Item Value Reference Range Interpretation Comments RDW (test code = RDW) 13.7 11.5-14.5 [facility]NedrxpsDLXORSQXPA7472-10-30 15:25:00 Test Item Value Reference Range Interpretation Comments Platelet (test code = Platelet) 214 133-450 [facility] CenterEibvuhpJOAJSXCYCA8084-54-02 15:25:00 Test Item Value Reference Range Interpretation Comments MPV (test code = MPV) 9.1 7.4-10.4 [facility]2022-08-21 15:25:00 Test Item Value Reference Range Interpretation Comments CO2 (test code = CO2) 26 24-32 [facility] HospitalOthpjoaMJSTRYREXE8994-67-87 15:25:00 Test Item Value Reference Range Interpretation Comments Segs (test code = Segs) 63.9 45.0-75.0 [facility] HospitalXrwslymZMCYGRAAKC7230-18-80 15:25:00 Test Item Value Reference Range Interpretation Comments Lymphocytes (test code = Lymphocytes) 23.4 20.0-40.0 [place] 848172-08-21 15:25:00 Test Item Value Reference Range Interpretation Comments Monocytes (test code = Monocytes) 7.7 2.0-12.0 [facility] HospitalRhtedjqMOXQBRQKVY8740-64-13 15:25:00 Test Item Value Reference Range Interpretation Comments Eosinophils (test code = 4.3 See_Comment [A utomated message] The Eosinophils) system which ge nerated this result tra nsmitted reference range : <=4.0. The reference r peri was not used to int erpret this result as normal/abnormal . [facility] HospitalGpybfsnLIBZLTAPHM3218-58-44 15:25:00 Test Item Value Reference Range Interpretation Comments Basophils (test code = 0.7 See_Comment [Aut omated message] The Basophils) system which ge nerated this result tra nsmitted reference range : <=1.0. The reference r peri was not used to int erpret this result as normal/abnormal . [place] 848172-08-21 15:25:00 Test Item Value Reference Range Interpretation Comments Neutrophils # (test code = Neutrophils 5.8 1.5-8.1 #) [facility] HospitalOvldyfqTSVAOCCTIS3153-86-53 15:25:00 Test Item Value Reference Range Interpretation Comments Lymphocytes # (test code = Lymphocytes 2.1 1.0-5.5 #) [place] 848172-08-21 15:25:00 Test Item Value Reference Range Interpretation Comments Monocytes # (test code 0.7 See_Comment [Aut omated message] The = Monocytes #) system which generated this result tra nsmitted reference range : <=0.8. The reference r peri was not used to int erpret this result as normal/abnormal . [facility] HospitalAybcmxyTQTKFAJLEB3949-77-62 15:25:00 Test Item Value Reference Range Interpretation Comments Eosinophils # (test code 0.4 See_Comment [A utomated message] The = Eosinophils #) system whic h generated this result tra nsmitted reference range : <=0.5. The reference r peri was not used to int erpret this result as normal/abnormal . [facility] HospitalOshomjpADZWPKUHKW4379-47-82 15:25:00 Test Item Value Reference Range Interpretation Comments Basophils # (test code 0.1 See_Comment [Aut omated message] The = Basophils #) system which generated this result tra nsmitted reference range : <=0.2. The reference r peri was not used to int erpret this result as normal/abnormal . [facility]2022-08-21 15:25:00 Test Item Value Reference Range Interpretation Comments Calcium Lvl (test code = Calcium Lvl) 9.2 8.5-10.5 [place] 66082022-08-21 15:25:00 Test Item Value Reference Range Interpretation Comments Acetaminoph Lvl (test code = no gt 10-20 Acetaminoph Lvl) [place] 510672-08-21 15:25:00 Test Item Value Reference Range Interpretation Comments Ethanol Lvl (test code = Ethanol Lvl) no gt [place] 66082022-08-21 15:25:00 Test Item Value Reference Range Interpretation Comments Etoh (%) (test code = Etoh (%)) no gt [place] 510672-08-21 15:25:00 Test Item Value Reference Range Interpretation Comments Salicylate Lvl (test 2.4 See_Comment [Autom ated message] The code = Salicylate Lvl) syste m which generated this result tra nsmitted reference range : <=30.0. The reference r peri was not used to int erpret this result as normal/abnormal . [facility] [id number] 15:25:00 Test Item Value Reference Range Interpretation Comments AGAP (test code = AGAP) 10.4 10.0-20.0 [facility] [id number] 15:25:00 Test Item Value Reference Range Interpretation Comments eGFR (test code = eGFR) 100 [facility] CenterWifi OnlineDAVID VILLE 6[address]48ICGDS5877-33-60 15:25:00 Test Item Value Reference Range Interpretation Comments Magnesium Lvl (test code = Magnesium 2.1 1.8-2.4 Lvl) [place] 826522-08-21 15:25:00 Test Item Value Reference Range Interpretation Comments Phosphorus (test code = Phosphorus) 3.5 2.5-4.5 [place] 848172-08-21 15:25:00 Test Item Value Reference Range Interpretation Comments WBC X 10x3 (test code = WBC X 10x3) 9.0 3.7-10.4 [place] 848172-08-21 15:25:00 Test Item Value Reference Range Interpretation Comments RBC X 10x6 (test code = RBC X 10x6) 4.66 4.70-6.10 [place] 848172-08-21 15:25:00 Test Item Value Reference Range Interpretation Comments Hgb (test code = Hgb) 14.5 14.0-18.0 [place] [address]-08-21 15:25:00 Test Item Value Reference Range Interpretation Comments Hct (test code = Hct) 43.7 42.0-54.0 [place] [address]-08-21 15:25:00 Test Item Value Reference Range Interpretation Comments MCV (test code = MCV) 93.8 80.0-94.0 [place] [address]-08-21 15:25:00 Test Item Value Reference Range Interpretation Comments MCH (test code = MCH) 31.1 pg 27.0-31.0 [place] [address]-08-21 15:25:00 Test Item Value Reference Range Interpretation Comments MCHC (test code = MCHC) 33.1 32.0-36.0 [place] 848172-08-21 15:25:00 Test Item Value Reference Range Interpretation Comments RDW (test code = RDW) 13.7 11.5-14.5 [place] 848172-08-21 15:25:00 Test Item Value Reference Range Interpretation Comments Platelet (test code = Platelet) 214 133-450 [place] 848172-08-21 15:25:00 Test Item Value Reference Range Interpretation Comments MPV (test code = MPV) 9.1 7.4-10.4 [place] 848172-08-21 15:25:00 Test Item Value Reference Range Interpretation Comments Segs (test code = Segs) 63.9 45.0-75.0 [place] 848172-08-21 15:25:00 Test Item Value Reference Range Interpretation Comments Lymphocytes (test code = Lymphocytes) 23.4 20.0-40.0 [place] 848172-08-21 15:25:00 Test Item Value Reference Range Interpretation Comments Monocytes (test code = Monocytes) 7.7 2.0-12.0 [place] 848172-08-21 15:25:00 Test Item Value Reference Range Interpretation Comments Eosinophils (test code = 4.3 See_Comment [A utomated message] The Eosinophils) system which ge nerated this result tra nsmitted reference range : <=4.0. The reference r peri was not used to int erpret this result as normal/abnormal . [facility] HospitalZbsclurRNKXNFAZMW2185-48-37 15:25:00 Test Item Value Reference Range Interpretation Comments Basophils (test code = 0.7 See_Comment [Aut omated message] The Basophils) system which ge nerated this result tra nsmitted reference range : <=1.0. The reference r peri was not used to int erpret this result as normal/abnormal . [place] 848172-08-21 15:25:00 Test Item Value Reference Range Interpretation Comments Neutrophils # (test code = Neutrophils 5.8 1.5-8.1 #) [place] 848172-08-21 15:25:00 Test Item Value Reference Range Interpretation Comments Lymphocytes # (test code = Lymphocytes 2.1 1.0-5.5 #) [facility] HospitalMtqhhwuJUHYMRSXLX6346-69-93 15:25:00 Test Item Value Reference Range Interpretation Comments Monocytes # (test code 0.7 See_Comment [Aut omated message] The = Monocytes #) system which generated this result tra nsmitted reference range : <=0.8. The reference r peri was not used to int erpret this result as normal/abnormal . [facility] HospitalYkunpqeGJEYGWNNWY9024-95-31 15:25:00 Test Item Value Reference Range Interpretation Comments Eosinophils # (test code 0.4 See_Comment [A utomated message] The = Eosinophils #) system whic h generated this result tra nsmitted reference range : <=0.5. The reference r peri was not used to int erpret this result as normal/abnormal . [facility] HospitalWvqkzfxDTASSIBZNX7036-53-49 15:25:00 Test Item Value Reference Range Interpretation Comments Basophils # (test code 0.1 See_Comment [Aut omated message] The = Basophils #) system which generated this result tra nsmitted reference range : <=0.2. The reference r peri was not used to int erpret this result as normal/abnormal . [facility] CenterNylppcvCJQLHEFOSI7421-09-19 15:25:00 Test Item Value Reference Range Interpretation Comments Acetaminoph Lvl (test code = no gt 10-20 Acetaminoph Lvl) [facility] LancasterZhiezuyOXGTONIREP0287-50-32 15:25:00 Test Item Value Reference Range Interpretation Comments Ethanol Lvl (test code = Ethanol Lvl) no gt [facility]BdbzvhaPUEBQUKNGA8231-48-53 15:25:00 Test Item Value Reference Range Interpretation Comments Etoh (%) (test code = Etoh (%)) no gt [facility] CenterRneswjzYSZTJABPTC5906-34-23 15:25:00 Test Item Value Reference Range Interpretation Comments Salicylate Lvl (test 2.4 See_Comment [Autom ated message] The code = Salicylate Lvl) syste m which generated this result tra nsmitted reference range : <=30.0. The reference r peri was not used to int erpret this result as normal/abnormal . [facility] CenterDailymotion [id number] 15:25:00 Test Item Value Reference Range Interpretation Comments Glucose Lvl (test code = Glucose Lvl) 90 70-99 [place] 826522-08-21 15:25:00 Test Item Value Reference Range Interpretation Comments BUN (test code = BUN) 18 7-22 [place] 826522-08-21 15:25:00 Test Item Value Reference Range Interpretation Comments Creatinine Lvl (test code = Creatinine 0.96 0.50-1.40 Lvl) [place] 826522-08-21 15:25:00 Test Item Value Reference Range Interpretation Comments Sodium Lvl (test code = Sodium Lvl) 144 135-145 [place] 826522-08-21 15:25:00 Test Item Value Reference Range Interpretation Comments Potassium Lvl (test code = Potassium 4.4 3.5-5.1 Lvl) [place] 826522-08-21 15:25:00 Test Item Value Reference Range Interpretation Comments Chloride Lvl (test code = Chloride Lvl) 112 95-109 [place] 826522-08-21 15:25:00 Test Item Value Reference Range Interpretation Comments CO2 (test code = CO2) 26 24-32 [place] 826522-08-21 15:25:00 Test Item Value Reference Range Interpretation Comments Calcium Lvl (test code = Calcium Lvl) 9.2 8.5-10.5 [place] 826522-08-21 15:25:00 Test Item Value Reference Range Interpretation Comments AGAP (test code = AGAP) 10.4 10.0-20.0 [place] 826522-08-21 15:25:00 Test Item Value Reference Range Interpretation Comments eGFR (test code = eGFR) 100 [place] 826522-08-21 15:25:00 Test Item Value Reference Range Interpretation Comments Magnesium Lvl (test code = Magnesium 2.1 1.8-2.4 Lvl) [place] 826522-08-21 15:25:00 Test Item Value Reference Range Interpretation Comments Phosphorus (test code = Phosphorus) 3.5 2.5-4.5 [place] 848172-08-21 15:25:00 Test Item Value Reference Range Interpretation Comments WBC X 10x3 (test code = WBC X 10x3) 9.0 3.7-10.4 [place] 848172-08-21 15:25:00 Test Item Value Reference Range Interpretation Comments RBC X 10x6 (test code = RBC X 10x6) 4.66 4.70-6.10 [place] 848172-08-21 15:25:00 Test Item Value Reference Range Interpretation Comments Hgb (test code = Hgb) 14.5 14.0-18.0 [place] 848172-08-21 15:25:00 Test Item Value Reference Range Interpretation Comments Hct (test code = Hct) 43.7 42.0-54.0 [place] 848172-08-21 15:25:00 Test Item Value Reference Range Interpretation Comments MCV (test code = MCV) 93.8 80.0-94.0 [place] 848172-08-21 15:25:00 Test Item Value Reference Range Interpretation Comments MCH (test code = MCH) 31.1 pg 27.0-31.0 [place] 848172-08-21 15:25:00 Test Item Value Reference Range Interpretation Comments MCHC (test code = MCHC) 33.1 32.0-36.0 [facility] HospitalMufxxtlHUPFNKJBYI5683-76-97 15:25:00 Test Item Value Reference Range Interpretation Comments RDW (test code = RDW) 13.7 11.5-14.5 [facility] HospitalAnhizxpRXSKIPHBME0444-36-18 15:25:00 Test Item Value Reference Range Interpretation Comments Platelet (test code = Platelet) 214 133-450 [facility] HospitalSogxfkiQGHXDREMRY2052-79-75 15:25:00 Test Item Value Reference Range Interpretation Comments MPV (test code = MPV) 9.1 7.4-10.4 [place] 848172-08-21 15:25:00 Test Item Value Reference Range Interpretation Comments Segs (test code = Segs) 63.9 45.0-75.0 [place] 848172-08-21 15:25:00 Test Item Value Reference Range Interpretation Comments Lymphocytes (test code = Lymphocytes) 23.4 20.0-40.0 [place] 848172-08-21 15:25:00 Test Item Value Reference Range Interpretation Comments Monocytes (test code = Monocytes) 7.7 2.0-12.0 [place] 848172-08-21 15:25:00 Test Item Value Reference Range Interpretation Comments Eosinophils (test code = 4.3 See_Comment [A utomated message] The Eosinophils) system which ge nerated this result tra nsmitted reference range : <=4.0. The reference r peri was not used to int erpret this result as normal/abnormal . [facility] HospitalPqybuwsCLATNHRNAK8986-28-98 15:25:00 Test Item Value Reference Range Interpretation Comments Basophils (test code = 0.7 See_Comment [Aut omated message] The Basophils) system which ge nerated this result tra nsmitted reference range : <=1.0. The reference r peri was not used to int erpret this result as normal/abnormal . [facility] HospitalAwxonuiAAOUJOXPPG1930-84-34 15:25:00 Test Item Value Reference Range Interpretation Comments Neutrophils # (test code = Neutrophils 5.8 1.5-8.1 #) [place] 848172-08-21 15:25:00 Test Item Value Reference Range Interpretation Comments Lymphocytes # (test code = Lymphocytes 2.1 1.0-5.5 #) [place] 848172-08-21 15:25:00 Test Item Value Reference Range Interpretation Comments Monocytes # (test code 0.7 See_Comment [Aut omated message] The = Monocytes #) system which generated this result tra nsmitted reference range : <=0.8. The reference r peri was not used to int erpret this result as normal/abnormal . [facility] HospitalWqetrogIISEGPCJZD4144-95-58 15:25:00 Test Item Value Reference Range Interpretation Comments Eosinophils # (test code 0.4 See_Comment [A utomated message] The = Eosinophils #) system whic h generated this result tra nsmitted reference range : <=0.5. The reference r peri was not used to int erpret this result as normal/abnormal . [facility] HospitalFjdfstqHCOBVXCNGB6620-41-87 15:25:00 Test Item Value Reference Range Interpretation Comments Basophils # (test code 0.1 See_Comment [Aut omated message] The = Basophils #) system which generated this result tra nsmitted reference range : <=0.2. The reference r peri was not used to int erpret this result as normal/abnormal . [facility] HospitalBrwjxciCRPOEORSZX2503-27-80 15:25:00 Test Item Value Reference Range Interpretation Comments Acetaminoph Lvl (test code = no gt 10-20 Acetaminoph Lvl) [place] 510672-08-21 15:25:00 Test Item Value Reference Range Interpretation Comments Ethanol Lvl (test code = Ethanol Lvl) no gt [place] 66082022-08-21 15:25:00 Test Item Value Reference Range Interpretation Comments Etoh (%) (test code = Etoh (%)) no gt [place] 66082022-08-21 15:25:00 Test Item Value Reference Range Interpretation Comments Salicylate Lvl (test 2.4 See_Comment [Autom ated message] The code = Salicylate Lvl) syste m which generated this result tra nsmitted reference range : <=30.0. The reference r peri was not used to int erpret this result as normal/abnormal . [facility] [employer] [id number] 15:25:00 Test Item Value Reference Range Interpretation Comments Glucose Lvl (test code = Glucose Lvl) 90 70-99 [facility] [id number] 15:25:00 Test Item Value Reference Range Interpretation Comments BUN (test code = BUN) 18 11-26 [facility] [id number] 15:25:00 Test Item Value Reference Range Interpretation Comments Glucose Lvl (test code = Glucose Lvl) 90 70-99 [facility] [id number] 15:25:00 Test Item Value Reference Range Interpretation Comments BUN (test code = BUN) 18 - [facility] [employer] [id number] 15:25:00 Test Item Value Reference Range Interpretation Comments Creatinine Lvl (test code = Creatinine 0.96 0.50-1.40 Lvl) [facility] [id number] 15:25:00 Test Item Value Reference Range Interpretation Comments Sodium Lvl (test code = Sodium Lvl) 144 135-145 [facility] [id number] 15:25:00 Test Item Value Reference Range Interpretation Comments Potassium Lvl (test code = Potassium 4.4 3.5-5.1 Lvl) [facility] [id number] 15:25:00 Test Item Value Reference Range Interpretation Comments Chloride Lvl (test code = Chloride Lvl) 112 95-109 [place] 81942-08-21 15:25:00 Test Item Value Reference Range Interpretation Comments CO2 (test code = CO2) 26 24-32 [place] 81942-08-21 15:25:00 Test Item Value Reference Range Interpretation Comments Calcium Lvl (test code = Calcium Lvl) 9.2 8.5-10.5 [place] 81942-08-21 15:25:00 Test Item Value Reference Range Interpretation Comments Creatinine Lvl (test code = Creatinine 0.96 0.50-1.40 Lvl) [place] 826522-08-21 15:25:00 Test Item Value Reference Range Interpretation Comments AGAP (test code = AGAP) 10.4 10.0-20.0 [place] 8[address]-08-21 15:25:00 Test Item Value Reference Range Interpretation Comments eGFR (test code = eGFR) 100 [place] 826522-08-21 15:25:00 Test Item Value Reference Range Interpretation Comments Magnesium Lvl (test code = Magnesium 2.1 1.8-2.4 Lvl) [place] 826522-08-21 15:25:00 Test Item Value Reference Range Interpretation Comments Phosphorus (test code = Phosphorus) 3.5 2.5-4.5 [place] [address]-08-21 15:25:00 Test Item Value Reference Range Interpretation Comments WBC X 10x3 (test code = WBC X 10x3) 9.0 3.7-10.4 [place] [address]-08-21 15:25:00 Test Item Value Reference Range Interpretation Comments RBC X 10x6 (test code = RBC X 10x6) 4.66 4.70-6.10 [place] [address]-08-21 15:25:00 Test Item Value Reference Range Interpretation Comments Hgb (test code = Hgb) 14.5 14.0-18.0 [place] [address]-08-21 15:25:00 Test Item Value Reference Range Interpretation Comments Hct (test code = Hct) 43.7 42.0-54.0 [place] [address]-08-21 15:25:00 Test Item Value Reference Range Interpretation Comments MCV (test code = MCV) 93.8 80.0-94.0 [place] [address]-08-21 15:25:00 Test Item Value Reference Range Interpretation Comments MCH (test code = MCH) 31.1 pg 27.0-31.0 [facility]2022-08-21 15:25:00 Test Item Value Reference Range Interpretation Comments Sodium Lvl (test code = Sodium Lvl) 144 135-145 [facility]PjdhzgaVKAEIRDBVU3795-01-77 15:25:00 Test Item Value Reference Range Interpretation Comments MCHC (test code = MCHC) 33.1 32.0-36.0 [facility] HospitalRwgycpdONKZRKMUML0818-20-56 15:25:00 Test Item Value Reference Range Interpretation Comments RDW (test code = RDW) 13.7 11.5-14.5 [place] 848172-08-21 15:25:00 Test Item Value Reference Range Interpretation Comments Platelet (test code = Platelet) 214 133-450 [facility] HospitalCsxffybCVIBCQULSX9039-32-82 15:25:00 Test Item Value Reference Range Interpretation Comments MPV (test code = MPV) 9.1 7.4-10.4 [facility] HospitalIbdrjsqIQYQNXYCEI8651-08-49 15:25:00 Test Item Value Reference Range Interpretation Comments Segs (test code = Segs) 63.9 45.0-75.0 [place] 848172-08-21 15:25:00 Test Item Value Reference Range Interpretation Comments Lymphocytes (test code = Lymphocytes) 23.4 20.0-40.0 [place] [address]-08-21 15:25:00 Test Item Value Reference Range Interpretation Comments Monocytes (test code = Monocytes) 7.7 2.0-12.0 [place] 848172-08-21 15:25:00 Test Item Value Reference Range Interpretation Comments Eosinophils (test code = 4.3 See_Comment [A utomated message] The Eosinophils) system which ge nerated this result tra nsmitted reference range : <=4.0. The reference r peri was not used to int erpret this result as normal/abnormal . [place] [address]-08-21 15:25:00 Test Item Value Reference Range Interpretation Comments Basophils (test code = 0.7 See_Comment [Aut omated message] The Basophils) system which ge nerated this result tra nsmitted reference range : <=1.0. The reference r peri was not used to int erpret this result as normal/abnormal . [facility] HospitalWistmzySYRWWRIGLX1168-74-08 15:25:00 Test Item Value Reference Range Interpretation Comments Neutrophils # (test code = Neutrophils 5.8 1.5-8.1 #) [facility]2022-08-21 15:25:00 Test Item Value Reference Range Interpretation Comments Potassium Lvl (test code = Potassium 4.4 3.5-5.1 Lvl) [place] 848172-08-21 15:25:00 Test Item Value Reference Range Interpretation Comments Lymphocytes # (test code = Lymphocytes 2.1 1.0-5.5 #) [facility] HospitalExctuauNHCYAYAQHZ4892-50-43 15:25:00 Test Item Value Reference Range Interpretation Comments Monocytes # (test code 0.7 See_Comment [Aut omated message] The = Monocytes #) system which generated this result tra nsmitted reference range : <=0.8. The reference r peri was not used to int erpret this result as normal/abnormal . [facility] HospitalVedegtrVJHLLTBKAA0947-17-81 15:25:00 Test Item Value Reference Range Interpretation Comments Eosinophils # (test code 0.4 See_Comment [A utomated message] The = Eosinophils #) system whic h generated this result tra nsmitted reference range : <=0.5. The reference r peri was not used to int erpret this result as normal/abnormal . [facility] HospitalShlaoluMPCZTBMUVD7405-76-33 15:25:00 Test Item Value Reference Range Interpretation Comments Basophils # (test code 0.1 See_Comment [Aut omated message] The = Basophils #) system which generated this result tra nsmitted reference range : <=0.2. The reference r peri was not used to int erpret this result as normal/abnormal . [facility]MY[facility]PTSQBJC3220-[facility]-92 15:25:00 Test Item Value Reference Range Interpretation Comments Acetaminoph Lvl (test code = no gt 10-20 Acetaminoph Lvl) [place] 510672-08-21 15:25:00 Test Item Value Reference Range Interpretation Comments Ethanol Lvl (test code = Ethanol Lvl) no gt [place] 66082022-08-21 15:25:00 Test Item Value Reference Range Interpretation Comments Etoh (%) (test code = Etoh (%)) no gt [facility]BnatnmkWHXMQICYQI5565-96-80 15:25:00 Test Item Value Reference Range Interpretation Comments Salicylate Lvl (test 2.4 See_Comment [Autom ated message] The code = Salicylate Lvl) syste m which generated this result tra nsmitted reference range : <=30.0. The reference r peri was not used to int erpret this result as normal/abnormal . [facility] [id number] 15:25:00 Test Item Value Reference Range Interpretation Comments Chloride Lvl (test code = Chloride Lvl) 112 95-109 [facility] [id number] 15:25:00 Test Item Value Reference Range Interpretation Comments CO2 (test code = CO2) 26 24-32 [facility] [id number] 15:25:00 Test Item Value Reference Range Interpretation Comments Calcium Lvl (test code = Calcium Lvl) 9.2 8.5-10.5 [facility] DIJKK0648-92-04 15:25:00 Test Item Value Reference Range Interpretation Comments AGAP (test code = AGAP) 10.4 10.0-20.0 [facility] UUFVB3674-07-46 15:25:00 Test Item Value Reference Range Interpretation Comments eGFR (test code = eGFR) 100 [facility] OREQH6972-55-25 15:25:00 Test Item Value Reference Range Interpretation Comments Magnesium Lvl (test code = Magnesium 2.1 1.8-2.4 Lvl) [place] 826522-08-21 15:25:00 Test Item Value Reference Range Interpretation Comments Phosphorus (test code = Phosphorus) 3.5 2.5-4.5 [facility] CenterOhidjvqEQMCABIIKX2172-64-01 15:25:00 Test Item Value Reference Range Interpretation Comments WBC X 10x3 (test code = WBC X 10x3) 9.0 3.7-10.4 [place] 848172-08-21 15:25:00 Test Item Value Reference Range Interpretation Comments RBC X 10x6 (test code = RBC X 10x6) 4.66 4.70-6.10 [place] 848172-08-21 15:25:00 Test Item Value Reference Range Interpretation Comments Hgb (test code = Hgb) 14.5 14.0-18.0 [place] 848172-08-21 15:25:00 Test Item Value Reference Range Interpretation Comments Hct (test code = Hct) 43.7 42.0-54.0 [place] 848172-08-21 15:25:00 Test Item Value Reference Range Interpretation Comments MCV (test code = MCV) 93.8 80.0-94.0 [place] 848172-08-21 15:25:00 Test Item Value Reference Range Interpretation Comments MCH (test code = MCH) 31.1 pg 27.0-31.0 [place] [address]-08-21 15:25:00 Test Item Value Reference Range Interpretation Comments MCHC (test code = MCHC) 33.1 32.0-36.0 [place] 848172-08-21 15:25:00 Test Item Value Reference Range Interpretation Comments RDW (test code = RDW) 13.7 11.5-14.5 [place] 848172-08-21 15:25:00 Test Item Value Reference Range Interpretation Comments Platelet (test code = Platelet) 214 133-450 [place] 848172-08-21 15:25:00 Test Item Value Reference Range Interpretation Comments MPV (test code = MPV) 9.1 7.4-10.4 [place] 848172-08-21 15:25:00 Test Item Value Reference Range Interpretation Comments Segs (test code = Segs) 63.9 45.0-75.0 [place] 848172-08-21 15:25:00 Test Item Value Reference Range Interpretation Comments Lymphocytes (test code = Lymphocytes) 23.4 20.0-40.0 [place] [address]-08-21 15:25:00 Test Item Value Reference Range Interpretation Comments Monocytes (test code = Monocytes) 7.7 2.0-12.0 [place] [address]-08-21 15:25:00 Test Item Value Reference Range Interpretation Comments Eosinophils (test code = 4.3 See_Comment [A utomated message] The Eosinophils) system which ge nerated this result tra nsmitted reference range : <=4.0. The reference r peri was not used to int erpret this result as normal/abnormal . [place] 848172-08-21 15:25:00 Test Item Value Reference Range Interpretation Comments Basophils (test code = 0.7 See_Comment [Aut omated message] The Basophils) system which ge nerated this result tra nsmitted reference range : <=1.0. The reference r peri was not used to int erpret this result as normal/abnormal . [facility] HospitalRuyxnqxCKAOPZDKAC2116-62-25 15:25:00 Test Item Value Reference Range Interpretation Comments Neutrophils # (test code = Neutrophils 5.8 1.5-8.1 #) [facility] HospitalMbmwoefSXPKKOCOMW7599-28-51 15:25:00 Test Item Value Reference Range Interpretation Comments Lymphocytes # (test code = Lymphocytes 2.1 1.0-5.5 #) [facility] HospitalLgumatzLGCOCRMFAJ0746-53-77 15:25:00 Test Item Value Reference Range Interpretation Comments Monocytes # (test code 0.7 See_Comment [Aut omated message] The = Monocytes #) system which generated this result tra nsmitted reference range : <=0.8. The reference r peri was not used to int erpret this result as normal/abnormal . [facility] HospitalUsmcjowLTGCWVOWKO1947-99-63 15:25:00 Test Item Value Reference Range Interpretation Comments Eosinophils # (test code 0.4 See_Comment [A utomated message] The = Eosinophils #) system whic h generated this result tra nsmitted reference range : <=0.5. The reference r peri was not used to int erpret this result as normal/abnormal . [facility] HospitalSwvwvubDBWWLCSZRZ8556-99-29 15:25:00 Test Item Value Reference Range Interpretation Comments Basophils # (test code 0.1 See_Comment [Aut omated message] The = Basophils #) system which generated this result tra nsmitted reference range : <=0.2. The reference r peri was not used to int erpret this result as normal/abnormal . [place] 66082022-08-21 15:25:00 Test Item Value Reference Range Interpretation Comments Acetaminoph Lvl (test code = no gt 10-20 Acetaminoph Lvl) [place] 66082022-08-21 15:25:00 Test Item Value Reference Range Interpretation Comments Ethanol Lvl (test code = Ethanol Lvl) no gt [place] 66082022-08-21 15:25:00 Test Item Value Reference Range Interpretation Comments Etoh (%) (test code = Etoh (%)) no gt [facility] CenterYuxbwsnVUSLKOGXMO2811-74-78 15:25:00 Test Item Value Reference Range Interpretation Comments Salicylate Lvl (test 2.4 See_Comment [Autom ated message] The code = Salicylate Lvl) syste m which generated this result tra nsmitted reference range : <=30.0. The reference r peri was not used to int erpret this result as normal/abnormal . [facility] [id number] 15:25:00 Test Item Value Reference Range Interpretation Comments Glucose Lvl (test code = Glucose Lvl) 90 70-99 [facility] [id number] 15:25:00 Test Item Value Reference Range Interpretation Comments BUN (test code = BUN) 18 7-22 [place] 826522-08-21 15:25:00 Test Item Value Reference Range Interpretation Comments Creatinine Lvl (test code = Creatinine 0.96 0.50-1.40 Lvl) [facility]2022-08-21 15:25:00 Test Item Value Reference Range Interpretation Comments Sodium Lvl (test code = Sodium Lvl) 144 135-145 [facility] [id number] 15:25:00 Test Item Value Reference Range Interpretation Comments Potassium Lvl (test code = Potassium 4.4 3.5-5.1 Lvl) [facility] CenterWifi OnlineATRIUM HEALTH MERCYLIIGI8777-07-46 15:25:00 Test Item Value Reference Range Interpretation Comments Chloride Lvl (test code = Chloride Lvl) 112 95-109 [facility] RYYDX2591-10-23 15:25:00 Test Item Value Reference Range Interpretation Comments CO2 (test code = CO2) 26 24-32 [facility] [id number] 15:25:00 Test Item Value Reference Range Interpretation Comments Calcium Lvl (test code = Calcium Lvl) 9.2 8.5-10.5 [facility] GGQKV7892-34-33 15:25:00 Test Item Value Reference Range Interpretation Comments AGAP (test code = AGAP) 10.4 10.0-20.0 [facility] [id number] 15:25:00 Test Item Value Reference Range Interpretation Comments eGFR (test code = eGFR) 100 [facility]2022-08-21 15:25:00 Test Item Value Reference Range Interpretation Comments Magnesium Lvl (test code = Magnesium 2.1 1.8-2.4 Lvl) [facility]2022-08-21 15:25:00 Test Item Value Reference Range Interpretation Comments Phosphorus (test code = Phosphorus) 3.5 2.5-4.5 [place] 848172-08-21 15:25:00 Test Item Value Reference Range Interpretation Comments WBC X 10x3 (test code = WBC X 10x3) 9.0 3.7-10.4 [facility] HospitalMujitleOIFWJZBHAK0228-50-53 15:25:00 Test Item Value Reference Range Interpretation Comments RBC X 10x6 (test code = RBC X 10x6) 4.66 4.70-6.10 [place] [address]-08-21 15:25:00 Test Item Value Reference Range Interpretation Comments Hgb (test code = Hgb) 14.5 14.0-18.0 [place] [address]-08-21 15:25:00 Test Item Value Reference Range Interpretation Comments Hct (test code = Hct) 43.7 42.0-54.0 [place] 848172-08-21 15:25:00 Test Item Value Reference Range Interpretation Comments MCV (test code = MCV) 93.8 80.0-94.0 [place] [address]-08-21 15:25:00 Test Item Value Reference Range Interpretation Comments MCH (test code = MCH) 31.1 pg 27.0-31.0 [place] [address]-08-21 15:25:00 Test Item Value Reference Range Interpretation Comments MCHC (test code = MCHC) 33.1 32.0-36.0 [place] [address]-08-21 15:25:00 Test Item Value Reference Range Interpretation Comments RDW (test code = RDW) 13.7 11.5-14.5 [place] 848172-08-21 15:25:00 Test Item Value Reference Range Interpretation Comments Platelet (test code = Platelet) 214 133-450 [facility] HospitalXeudebvXXYVUFEOYS7074-86-89 15:25:00 Test Item Value Reference Range Interpretation Comments MPV (test code = MPV) 9.1 7.4-10.4 [place] [address]-08-21 15:25:00 Test Item Value Reference Range Interpretation Comments Segs (test code = Segs) 63.9 45.0-75.0 [place] [address]-08-21 15:25:00 Test Item Value Reference Range Interpretation Comments Lymphocytes (test code = Lymphocytes) 23.4 20.0-40.0 [place] [address]-08-21 15:25:00 Test Item Value Reference Range Interpretation Comments Monocytes (test code = Monocytes) 7.7 2.0-12.0 [place] [address]-08-21 15:25:00 Test Item Value Reference Range Interpretation Comments Eosinophils (test code = 4.3 See_Comment [A utomated message] The Eosinophils) system which ge nerated this result tra nsmitted reference range : <=4.0. The reference r peri was not used to int erpret this result as normal/abnormal . [place] 848172-08-21 15:25:00 Test Item Value Reference Range Interpretation Comments Basophils (test code = 0.7 See_Comment [Aut omated message] The Basophils) system which ge nerated this result tra nsmitted reference range : <=1.0. The reference r peri was not used to int erpret this result as normal/abnormal . [place] 848172-08-21 15:25:00 Test Item Value Reference Range Interpretation Comments Neutrophils # (test code = Neutrophils 5.8 1.5-8.1 #) [place] 826522-08-21 15:25:00 Test Item Value Reference Range Interpretation Comments Glucose Lvl (test code = Glucose Lvl) 90 70-99 [place] 826522-08-21 15:25:00 Test Item Value Reference Range Interpretation Comments BUN (test code = BUN) 18 7-22 [place] 826522-08-21 15:25:00 Test Item Value Reference Range Interpretation Comments Creatinine Lvl (test code = Creatinine 0.96 0.50-1.40 Lvl) [place] 826522-08-21 15:25:00 Test Item Value Reference Range Interpretation Comments Sodium Lvl (test code = Sodium Lvl) 144 135-145 [place] 848172-08-21 15:25:00 Test Item Value Reference Range Interpretation Comments Lymphocytes # (test code = Lymphocytes 2.1 1.0-5.5 #) [place] 826522-08-21 15:25:00 Test Item Value Reference Range Interpretation Comments Potassium Lvl (test code = Potassium 4.4 3.5-5.1 Lvl) [place] 826522-08-21 15:25:00 Test Item Value Reference Range Interpretation Comments Chloride Lvl (test code = Chloride Lvl) 112 95-109 [place] 826522-08-21 15:25:00 Test Item Value Reference Range Interpretation Comments CO2 (test code = CO2) 26 24-32 [place] [address]-08-21 15:25:00 Test Item Value Reference Range Interpretation Comments Calcium Lvl (test code = Calcium Lvl) 9.2 8.5-10.5 [place] [address]-08-21 15:25:00 Test Item Value Reference Range Interpretation Comments AGAP (test code = AGAP) 10.4 10.0-20.0 [place] 826522-08-21 15:25:00 Test Item Value Reference Range Interpretation Comments eGFR (test code = eGFR) 100 [place] [address]-08-21 15:25:00 Test Item Value Reference Range Interpretation Comments Magnesium Lvl (test code = Magnesium 2.1 1.8-2.4 Lvl) [place] 826522-08-21 15:25:00 Test Item Value Reference Range Interpretation Comments Phosphorus (test code = Phosphorus) 3.5 2.5-4.5 [place] [address]-08-21 15:25:00 Test Item Value Reference Range Interpretation Comments WBC X 10x3 (test code = WBC X 10x3) 9.0 3.7-10.4 [place] [address]-08-21 15:25:00 Test Item Value Reference Range Interpretation Comments RBC X 10x6 (test code = RBC X 10x6) 4.66 4.70-6.10 [place] [address]-08-21 15:25:00 Test Item Value Reference Range Interpretation Comments Monocytes # (test code 0.7 See_Comment [Aut omated message] The = Monocytes #) system which generated this result tra nsmitted reference range : <=0.8. The reference r peri was not used to int erpret this result as normal/abnormal . [place] 848172-08-21 15:25:00 Test Item Value Reference Range Interpretation Comments Hgb (test code = Hgb) 14.5 14.0-18.0 [place] [address]-08-21 15:25:00 Test Item Value Reference Range Interpretation Comments Hct (test code = Hct) 43.7 42.0-54.0 [place] 848172-08-21 15:25:00 Test Item Value Reference Range Interpretation Comments MCV (test code = MCV) 93.8 80.0-94.0 [place] 848172-08-21 15:25:00 Test Item Value Reference Range Interpretation Comments MCH (test code = MCH) 31.1 pg 27.0-31.0 [place] 848172-08-21 15:25:00 Test Item Value Reference Range Interpretation Comments MCHC (test code = MCHC) 33.1 32.0-36.0 [place] 848172-08-21 15:25:00 Test Item Value Reference Range Interpretation Comments RDW (test code = RDW) 13.7 11.5-14.5 [place] 848172-08-21 15:25:00 Test Item Value Reference Range Interpretation Comments Platelet (test code = Platelet) 214 133-450 [place] 848172-08-21 15:25:00 Test Item Value Reference Range Interpretation Comments MPV (test code = MPV) 9.1 7.4-10.4 [place] 848172-08-21 15:25:00 Test Item Value Reference Range Interpretation Comments Segs (test code = Segs) 63.9 45.0-75.0 [place] 848172-08-21 15:25:00 Test Item Value Reference Range Interpretation Comments Lymphocytes (test code = Lymphocytes) 23.4 20.0-40.0 [place] [address]-08-21 15:25:00 Test Item Value Reference Range Interpretation Comments Eosinophils # (test code 0.4 See_Comment [A utomated message] The = Eosinophils #) system whic h generated this result tra nsmitted reference range : <=0.5. The reference r peri was not used to int erpret this result as normal/abnormal . [place] [address]-08-21 15:25:00 Test Item Value Reference Range Interpretation Comments Monocytes (test code = Monocytes) 7.7 2.0-12.0 [place] [address]-08-21 15:25:00 Test Item Value Reference Range Interpretation Comments Eosinophils (test code = 4.3 See_Comment [A utomated message] The Eosinophils) system which ge nerated this result tra nsmitted reference range : <=4.0. The reference r peri was not used to int erpret this result as normal/abnormal . [place] [address]-08-21 15:25:00 Test Item Value Reference Range Interpretation Comments Basophils (test code = 0.7 See_Comment [Aut omated message] The Basophils) system which ge nerated this result tra nsmitted reference range : <=1.0. The reference r peri was not used to int erpret this result as normal/abnormal . [place] [address]-08-21 15:25:00 Test Item Value Reference Range Interpretation Comments Neutrophils # (test code = Neutrophils 5.8 1.5-8.1 #) [place] [address]-08-21 15:25:00 Test Item Value Reference Range Interpretation Comments Lymphocytes # (test code = Lymphocytes 2.1 1.0-5.5 #) [place] [address]-08-21 15:25:00 Test Item Value Reference Range Interpretation Comments Monocytes # (test code 0.7 See_Comment [Aut omated message] The = Monocytes #) system which generated this result tra nsmitted reference range : <=0.8. The reference r peri was not used to int erpret this result as normal/abnormal . [place] [address]-08-21 15:25:00 Test Item Value Reference Range Interpretation Comments Eosinophils # (test code 0.4 See_Comment [A utomated message] The = Eosinophils #) system whic h generated this result tra nsmitted reference range : <=0.5. The reference r peri was not used to int erpret this result as normal/abnormal . [place] 848172-08-21 15:25:00 Test Item Value Reference Range Interpretation Comments Basophils # (test code 0.1 See_Comment [Aut omated message] The = Basophils #) system which generated this result tra nsmitted reference range : <=0.2. The reference r peri was not used to int erpret this result as normal/abnormal . [facility] XknhvsfDEVPXPNOIC0273-10-67 15:25:00 Test Item Value Reference Range Interpretation Comments Acetaminoph Lvl (test code = no gt 10-20 Acetaminoph Lvl) [facility]IupzkjzRGPVRBAJYM9612-07-79 15:25:00 Test Item Value Reference Range Interpretation Comments Ethanol Lvl (test code = Ethanol Lvl) no gt [facility] CenterDednzigVYBCTBGWDJ4173-56-35 15:25:00 Test Item Value Reference Range Interpretation Comments Basophils # (test code 0.1 See_Comment [Aut omated message] The = Basophils #) system which generated this result tra nsmitted reference range : <=0.2. The reference r peri was not used to int erpret this result as normal/abnormal . [facility] CenterHwzsafmQIEHOVBVZV0814-63-96 15:25:00 Test Item Value Reference Range Interpretation Comments Etoh (%) (test code = Etoh (%)) no [facility]xcy[facility]pEKYNTHAENU9017-22-90 15:25:00 Test Item Value Reference Range Interpretation Comments Salicylate Lvl (test 2.4 See_Comment [Autom ated message] The code = Salicylate Lvl) syste m which generated this result tra nsmitted reference range : <=30.0. The reference r peri was not used to int erpret this result as normal/abnormal . [facility] YfcuzawZWGYPVFKKT0976-63-42 15:25:00 Test Item Value Reference Range Interpretation Comments Acetaminoph Lvl (test code = no gt 10-20 Acetaminoph Lvl) [facility] CenterNyfzxnwKVKWEOHYHM4476-69-44 15:25:00 Test Item Value Reference Range Interpretation Comments Ethanol Lvl (test code = Ethanol Lvl) no [facility] ShmmttnIZMCGZCVEI7917-32-88 15:25:00 Test Item Value Reference Range Interpretation Comments Etoh (%) (test code = Etoh (%)) no [facility] JonpfncRJRQYLGWBC0292-01-94 15:25:00 Test Item Value Reference Range Interpretation Comments Salicylate Lvl (test 2.4 See_Comment [Autom ated message] The code = Salicylate Lvl) [facility] which generated this result tra nsmitted reference range : <=30.0. The reference r peri was not used to int erpret this result as normal/abnormal . [facility]-CoV-2 RNA Resp Ql CAMERON+uusey6480-40-97 21:23:36 Test Item Value Reference Range Interpretation Comments Hospitalized? (test No code = 96342-0) ICU? (test code = No 74050-6) Symptomatic as defined No by CDC? (test code = 54499-1) Employed in No Healthcare? (test code = 40504-4) Resident in a No congregate care setting (including nursing homes, residential care for people with intellectual and developmental disabilities, psychiatric treatment facilities, group homes, board and care homes, homeless nursing home, foster care or other): (test code = 10762-2) SARS-CoV-2 RNA Resp Ql NOT DETECTED Not Detected INTER PRETATION: No CAMERON+probe (test code = detec table levels 45025-1) of SARS-CoV-2 Coronavirus (COVID-19) were present in this patient's sampl e by this test. A no t detected result does not exclud e the possibility of active infectio n with this virus due to other factor s that may affect the results such as a poorly collecte d sample, viral titers below th e limit of detect ion of the assay, a nd the infrequent possibility of inhibitors in t he sample. This re sult should be interpreted in conjunction wit h clinical, radiographic, a nd other laborator y findings and sh ould not be used as the sole indicator of active infectio n with SARS-CoV-2 Coronavirus (COVID-19). COMMENT: This eliz real-time reverse transcriptase polymerase chain reaction (RT-PCR) test rapidly detects SARS-CoV-2 (COVID-19) virus from nasopharyngeal and nasal swab specimens. In accordance with the FDA's guidance document "Policy for Diagnostic Tests for Coronavirus Disease-2019 during the Public Health Emergency", this test was developed, and its performance characteristics were verified by the [facility] molecular diagnostics laboratory and is authorized for clinical diagnostic use. This laboratory is certified under the Clinical Laboratory Improvement Amendments (CLIA) as qualified to perform high complexity clinical laboratory testing.HHSCOVID 19 Asymptomatic IH [id number] 04:37:00 Test Item Value Reference Range Interpretation Comments COVID 19 Asymptomatic IH AG (test Negative Neg code = COVNONPUIAG) TROP-I HIGH [id number] 19:54:00 Test Item Value Reference Range Interpretation Comments TROP-I HIGH < 4 ng/L 0-45 N SENSITIVITY (test code = TROPIHS) CAUT ION: Units of the current adams t methodology (ng /L) differfrom the prior test methodology (ng /mL) by a factor of 1000. 99 th Percentile Uppe r Reference Limit (URL): Fe males: 54 ng/LMales: 78 n g/L In order to distin guish acute elevations of h igh sensitivitytrop onin from other clinical conditions, the FourthUnive rsal Definition of M yocardial Infarction stressesclinica l assessment and the demonstration o f a rise and/orfall in s erial troponin result s above the URL. Results fr om different metho dologies should not be c omparedto one another as quantitative re sults and URLs may vary b ymethod. [id number] 17:30:00 Test Item Value Reference Range Interpretation Comments ACETAMINOPHEN (test code = ACET) <2.0 mcG/ML 10.0-30.0 L [id number] 17:30:00 Test Item Value Reference Range Interpretation Comments ALCOHOL (test code = 4 MG/DL 0-10 N MEDICAL ALCOHOL RESULTS. ALC) SITE WAS PREPPE D WITH BETADINE. <10 M G/DL ARE CONSIDERED NEGA TIVE. >400 MG/DL MAY BE FATAL.RESULTS F OR MEDICAL USE ONL Y. NOT TO BE USED FOR FOR ENSIC PURPOSES. DRUGS OF ABUSE SCREEN [id number] 16:59:00 Test Item Value Reference Interpretation Comments Range URN COCAINE (test NONE DETECTED See_Comment [Automat ed message] The code = COCAURN) (NEG) system which generated SCcutoff this result tra nsmitted reference range : <300 NG/ML. The refe rence range was not u sed to interpret this result as normal/abnormal . URN CANNABINOIDS NONE DETECTED See_Comment [Automate d message] The (test code = (NEG) system which ge nerated CANNABURN) SCcutoff this result tra nsmitted reference range : <50 NG/ML. The refe rence range was not u sed to interpret this result as normal/abnormal . URN AMPHETAMINE POSITIVE See_Comment A [Automated message] The (test code = SCcutoff system which ge nerated AMPHETURN) this result tra nsmitted reference range : <1000 NG/ML. The refe rence range was not u sed to interpret this result as normal/abnormal . URN BARBITURATE NONE DETECTED See_Comment [Automated message] The (test code = (NEG) system which ge nerated BARBITURN) SCcutoff this result tra nsmitted reference range : <200 NG/ML. The refe rence range was not u sed to interpret this result as normal/abnormal . URN BENZODIAZEPINE NONE DETECTED See_Comment [Automa suze message] The (test code = (NEG) system which ge nerated BENZOURN) SCcutoff this result tra nsmitted reference range : <200 NG/ML. The refe rence range was not u sed to interpret this result as normal/abnormal . URN OPIATES (test NONE DETECTED See_Comment [Automat ed message] The code = OPIATURN) (NEG) system whic h generated SCcutoff this result tra nsmitted reference range : <300 NG/ML. The refe rence range was not u sed to interpret this result as normal/abnormal . URN PHENCYCLIDINE NONE DETECTED See_Comment ------ Fo r all drug (PCP) (test code = (NEG) screen an alytes PHENCURN) SCcutoff ------The scree n method provides only a preliminary analyticaltest result. A more specific a lternate chemical method mustbe used in order t o obtain a confirmed rayshawn lytical result.Gas chromatography/ mass spectrometry (G C/MS) is thepreferred confirmatory me thod. Other chemical confirmationmet hods are available. Clin ical consideration andprofessional judgement stefano castellanos be applied to any drug ofabuse test re sult, particularly wh en preliminary positiveresults are used. [Automate d message] The sy stem which generated this result transmit suze reference range : <25 NG/ML. The refe rence range was not u sed to interpret this result as normal/abnormal . COMPREHENSIVE METABOLIC [id number] 16:59:00 Test Item Value Reference Range Interpretation Comments SODIUM (test code = 140.0 mmol/L 133-144 N NA) POTASSIUM (test code 4.3 mmol/L 3.5-5.1 N = K) CHLORIDE (test code 107 mmol/L 95-105 H = CL) CARBON DIOXIDE (test 28 mmol/L 21-32 N code = CO2) ANION GAP (test code 5.0 GAP calc 4.0-15.0 N = GAP) GLUCOSE (test code = 85 MG/DL 70-110 N GLU) BLOOD UREA NITROGEN 17 MG/DL 7-18 N (test code = BUN) GLOMERULAR 63 estGFR >60 The estimated FILTRATION RATE glomerular (test code = GFR) filtration rate is computed usingpatient ra ce, age, sex, and s samuel creatinine. If any of theneeded da ta elements are mi ssing the Laboratory can notcompute an estimation of t he glomerular filtration rate .The GFR value units = ml/min/1.73 met er squared. EstimatedGFR va lues above 60 should be interpreted as >60, not anexact number.--- DRUG DOSAGE ALERT -- - Drug dosage adjustments uti lize different calculationpara meter s. CREATININE (test 1.24 MG/DL 0.55-1.30 N Results may be code = CREAT) depressed if p atient is takingN-Acetylc ystei ne (NAC) and Metamizole (Dipyrone). TOTAL PROTEIN (test 6.7 G/DL 6.4-8.2 N code = PROT) ALBUMIN (test code = 3.5 G/DL 3.4-5.0 N ALB) ALBUMIN/GLOBULIN 1.1 RATIO 1.2-2.2 L RATIO (test code = A/G) CALCIUM (test code = 8.8 MG/DL 8.5-10.1 N CA) BILIRUBIN TOTAL 0.36 MG/DL 0.00-1.00 N (test code = BILT) BILIRUBIN DIRECT 0.17 MG/DL 0.00-0.30 N (test code = BILD) BILIRUBIN INDIRECT 0.19 MG/DL 0.2-1.3 L (test code = BILIND) SGOT/AST (test code 12 Unit/L 15-37 L = AST) SGPT/ALT (test code 18 Unit/L 12-78 N = ALT) ALKALINE PHOSPHATASE 76 Unit/L 45-117 N TOTAL (test code = ALKP) INDEX HEMOLYSIS 1 NORMAL <10 See_Comment [Automated message] (test code = MG Index/DL The system [employer] HEMINDSPEEDELO) generated this result transmit suze reference range : 1 NORMAL. The reference range was not used to interpret this result as normal/abnormal . INDEX ICTERIC (test 1 NORMAL <2 MG See_Comment [Auto mated message] code = ICTINDEX) Index/DL The system which generated this result transmit suze reference range : 1 NORMAL. The reference range was not used to interpret this result as normal/abnormal . INDEX LIPEMIA (test 1 NORMAL <50 See_Comment [Automa suze message] code = LIPINDEX) MG Index/DL The system which generated this result transmit suze reference range : 1 NORMAL. The reference range was not used to interpret this result as normal/abnormal . [id number] 16:59:00 Test Item Value Reference Range Interpretation Comments MAGNESIUM (test code = MAG) 2.6 MG/DL 1.6-2.6 N TROP-I HIGH [id number] 16:57:00 Test Item Value Reference Range Interpretation Comments TROP-I HIGH 4 ng/L 0-45 N SENSITIVITY (test code = TROPIHS) CAUTIO N: Units of the current test me thodology (ng/L) differfr om the prior test methodolog y (ng/mL) by a factor of 1000. 99th Percentile Upper Reference Limit (URL): Females: 54 ng/LMales: 78 n g/L In order to distinguish acute elevations of h igh sensitivitytrop onin from other clinical conditions, the FourthUnive rsal Definition of M yocardial Infarction stre ssesclinical assessment and the demonstration o f a rise and/orfall in s erial troponin result s above the URL. Results fr om different methodologies s hould not be comparedto one another as quantitative re sults and URLs may vary b ymethod. [id number] 16:52:00 Test Item Value Reference Range Interpretation Comments SALICYLATE (test code < 1.7 MG/DL See_Comment L RESULT <2.8 IS = SANTA) CONSIDERED NEGA TIVE FOR SALICYLATE. [Automated mess age] The system [employer] generated this result transmitted ref erence range: 2.8-20.0 THER. The reference r peri was not used to interpret this result as normal/abnor mal. B-TYPE NATRIURETIC [id number] 10:26:00 Test Item Value Reference Range Interpretation Comments B-TYPE NATRIURETIC PEPTIDE < 30.00 PG/ML 0.00-100.00 N (test code = BNP) CBC W/O [id number] 09:39:00 Test Item Value Reference Range Interpretation Comments WHITE BLOOD CELL (test code = WBC) 8.9 K/mm3 4.1-12.1 N RED BLOOD CELL (test code = RBC) 4.68 M/mm3 3.8-5.5 N HEMOGLOBIN (test code = HGB) 14.5 G/DL 10.6-15.8 N HEMATOCRIT (test code = HCT) 43.8 % 31.8-47.4 N MEAN CELL VOLUME (test code = MCV) 93.6 fL 80.1-101.1 N MEAN CELL HGB (test code = MCH) 31.0 pg 25.3-35.3 N MEAN CELL HGB CONCETRATION (test 33.1 G/DL 32.7-35.1 N code = MCHC) RED CELL DISTRIBUTION WIDTH (test 13.4 % 12.2-16.4 N code = RDW) PLATELET COUNT (test code = PLT) 269 K/mm3 155-337 N MEAN PLATELET VOLUME (test code = 11.0 fL 7.6-10.4 H MPV) [facility] [id number] 20:25:00 Test Item Value Reference Range Interpretation Comments B/C Ratio (test code = B/C Ratio) 23 1 6-25 [facility] [id number] 20:25:00 Test Item Value Reference Range Interpretation Comments Globulin (test code = Globulin) 3.7 2.7-4.2 [facility] [id number] 20:25:00 Test Item Value Reference Range Interpretation Comments A/G Ratio (test code = A/G Ratio) 1.2 1 0.7-1.6 [place] 826522-06-22 20:25:00 Test Item Value Reference Range Interpretation Comments eGFR (test code = eGFR) [id number] 20:25:00 Test Item Value Reference Range Interpretation Comments Segs (test code = Segs) 77.6 45.0-75.0 [place] 848172-06-22 20:25:00 Test Item Value Reference Range Interpretation Comments Lymphocytes (test code = Lymphocytes) 14.9 20.0-40.0 [place] 848172-06-22 20:25:00 Test Item Value Reference Range Interpretation Comments Monocytes (test code = Monocytes) 7.0 2.0-12.0 [place] 848172-06-22 20:25:00 Test Item Value Reference Range Interpretation Comments Eosinophils (test code = 0.1 See_Comment [A utomated message] The Eosinophils) system which ge nerated this result tra nsmitted reference range : <=4.0. The reference r peri was not used to int erpret this result as normal/abnormal . [place] 848172-06-22 20:25:00 Test Item Value Reference Range Interpretation Comments Basophils (test code = 0.4 See_Comment [Aut omated message] The Basophils) system which ge nerated this result tra nsmitted reference range : <=1.0. The reference r peri was not used to int erpret this result as normal/abnormal . [place] 848172-06-22 20:25:00 Test Item Value Reference Range Interpretation Comments Neutrophils # (test code = Neutrophils 11.3 1.5-8.1 #) [place] [address]-06-22 20:25:00 Test Item Value Reference Range Interpretation Comments Lymphocytes # (test code = Lymphocytes 2.2 1.0-5.5 #) [place] 848172-06-22 20:25:00 Test Item Value Reference Range Interpretation Comments Monocytes # (test code 1.0 See_Comment [Aut omated message] The = Monocytes #) system which generated this result tra nsmitted reference range : <=0.8. The reference r peri was not used to int erpret this result as normal/abnormal . [place] [address]-06-22 20:25:00 Test Item Value Reference Range Interpretation Comments Basophils # (test code 0.1 See_Comment [Aut omated message] The = Basophils #) system which generated this result tra nsmitted reference range : <=0.2. The reference r peri was not used to int erpret this result as normal/abnormal . [place] 848172-06-22 20:25:00 Test Item Value Reference Range Interpretation Comments WBC X 10x3 (test code = WBC X 10x3) 14.6 3.7-10.4 [place] [address]-06-22 20:25:00 Test Item Value Reference Range Interpretation Comments RBC X 10x6 (test code = RBC X 10x6) 4.77 4.70-6.10 [place] 848172-06-22 20:25:00 Test Item Value Reference Range Interpretation Comments Hgb (test code = Hgb) 14.6 14.0-18.0 [place] [address]-06-22 20:25:00 Test Item Value Reference Range Interpretation Comments Hct (test code = Hct) 44.7 42.0-54.0 [place] [address]-06-22 20:25:00 Test Item Value Reference Range Interpretation Comments MCV (test code = MCV) 93.6 80.0-94.0 [place] [address]-06-22 20:25:00 Test Item Value Reference Range Interpretation Comments MCH (test code = MCH) 30.7 pg 27.0-31.0 [place] [address]-06-22 20:25:00 Test Item Value Reference Range Interpretation Comments MCHC (test code = MCHC) 32.8 32.0-36.0 [place] 848172-06-22 20:25:00 Test Item Value Reference Range Interpretation Comments RDW (test code = RDW) 13.7 11.5-14.5 [place] 848172-06-22 20:25:00 Test Item Value Reference Range Interpretation Comments Platelet (test code = Platelet) 244 133-450 [place] 848172-06-22 20:25:00 Test Item Value Reference Range Interpretation Comments MPV (test code = MPV) 9.1 7.4-10.4 [place] 826522-06-22 20:25:00 Test Item Value Reference Range Interpretation Comments Glucose Lvl (test code = Glucose Lvl) 106 70-99 [place] 826522-06-22 20:25:00 Test Item Value Reference Range Interpretation Comments BUN (test code = BUN) 27 7-22 [place] 826522-06-22 20:25:00 Test Item Value Reference Range Interpretation Comments Creatinine Lvl (test code = Creatinine 1.17 0.50-1.40 Lvl) [place] 826522-06-22 20:25:00 Test Item Value Reference Range Interpretation Comments Sodium Lvl (test code = Sodium Lvl) 139 135-145 [place] 826522-06-22 20:25:00 Test Item Value Reference Range Interpretation Comments Potassium Lvl (test code = Potassium 4.2 3.5-5.1 Lvl) [place] 826522-06-22 20:25:00 Test Item Value Reference Range Interpretation Comments Chloride Lvl (test code = Chloride Lvl) 106 95-109 [place] 826522-06-22 20:25:00 Test Item Value Reference Range Interpretation Comments CO2 (test code = CO2) 26 24-32 [place] 826522-06-22 20:25:00 Test Item Value Reference Range Interpretation Comments Calcium Lvl (test code = Calcium Lvl) 9.7 8.5-10.5 [place] 826522-06-22 20:25:00 Test Item Value Reference Range Interpretation Comments Total Protein (test code = Total 8.1 6.4-8.4 Protein) [id number]:25:[facility] Test Item Value Reference Range Interpretation Comments Albumin Lvl (test code = Albumin Lvl) 4.4 3.5-5.0 [facility] [id number] 20:25:00 Test Item Value Reference Range Interpretation Comments ALANINE AMINOTRANSFERASE 27 See_Comment [A utomated message] (test code = ALANINE The sys tem which AMINOTRANSFERASE) generated this result transmitted ref erence range: <=65. Th e reference range was not used to int erpret this result as normal/abnormal . [facility] [employer] [id number] 20:25:00 Test Item Value Reference Range Interpretation Comments AST (test code = AST) 17 See_Comment [Auto mated message] The system which ge nerated this result transmit suze reference range : <=37. The reference range was not used to interpr et this result as anselmo l/abnormal. [facility] [employer] [id number] 20:25:00 Test Item Value Reference Range Interpretation Comments Alk Phos (test code = Alk Phos) 78 39-136 [facility] [employer] [id number] 20:25:00 Test Item Value Reference Range Interpretation Comments Bili Total (test code = Bili Total) 0.9 0.2-1.3 [facility] [employer] [id number] 20:25:00 Test Item Value Reference Range Interpretation Comments AGAP (test code = AGAP) 11.2 10.0-20.0 [facility] [employer] [id number] 20:25:00 Test Item Value Reference Range Interpretation Comments B/C Ratio (test code = B/C Ratio) 23 1 6-25 [facility] [employer] [id number] 20:25:00 Test Item Value Reference Range Interpretation Comments Globulin (test code = Globulin) 3.7 2.7-4.2 [facility] [employer] [id number] 20:25:00 Test Item Value Reference Range Interpretation Comments A/G Ratio (test code = A/G Ratio) 1.2 1 0.7-1.6 [facility] [employer] [id number] 20:25:00 Test Item Value Reference Range Interpretation Comments eGFR (test code = eGFR) 75 [place] 848172-06-22 20:25:00 Test Item Value Reference Range Interpretation Comments Segs (test code = Segs) 77.6 45.0-75.0 [place] [address]-06-22 20:25:00 Test Item Value Reference Range Interpretation Comments Lymphocytes (test code = Lymphocytes) 14.9 20.0-40.0 [place] [address]-06-22 20:25:00 Test Item Value Reference Range Interpretation Comments Monocytes (test code = Monocytes) 7.0 2.0-12.0 [place] [address]-06-22 20:25:00 Test Item Value Reference Range Interpretation Comments Eosinophils (test code = 0.1 See_Comment [A utomated message] The Eosinophils) system which ge nerated this result tra nsmitted reference range : <=4.0. The reference r peri was not used to int erpret this result as normal/abnormal . [place] [address]-06-22 20:25:00 Test Item Value Reference Range Interpretation Comments Basophils (test code = 0.4 See_Comment [Aut omated message] The Basophils) system which ge nerated this result tra nsmitted reference range : <=1.0. The reference r peri was not used to int erpret this result as normal/abnormal . [place] [address]-06-22 20:25:00 Test Item Value Reference Range Interpretation Comments Neutrophils # (test code = Neutrophils 11.3 1.5-8.1 #) [place] [address]-06-22 20:25:00 Test Item Value Reference Range Interpretation Comments Lymphocytes # (test code = Lymphocytes 2.2 1.0-5.5 #) [place] [address]-06-22 20:25:00 Test Item Value Reference Range Interpretation Comments Monocytes # (test code 1.0 See_Comment [Aut omated message] The = Monocytes #) system which generated this result tra nsmitted reference range : <=0.8. The reference r peri was not used to int erpret this result as normal/abnormal . [place] [address]-06-22 20:25:00 Test Item Value Reference Range Interpretation Comments Basophils # (test code 0.1 See_Comment [Aut omated message] The = Basophils #) system which generated this result tra nsmitted reference range : <=0.2. The reference r peri was not used to int erpret this result as normal/abnormal . [id number] 20:25:00 Test Item Value Reference Range Interpretation Comments WBC X 10x3 (test code = WBC X 10x3) 14.6 3.7-10.4 [place] 848172-06-22 20:25:00 Test Item Value Reference Range Interpretation Comments RBC X 10x6 (test code = RBC X 10x6) 4.77 4.70-6.10 [place] 848172-06-22 20:25:00 Test Item Value Reference Range Interpretation Comments Hgb (test code = Hgb) 14.6 14.0-18.0 [place] [address]-06-22 20:25:00 Test Item Value Reference Range Interpretation Comments Hct (test code = Hct) 44.7 42.0-54.0 [place] 848172-06-22 20:25:00 Test Item Value Reference Range Interpretation Comments MCV (test code = MCV) 93.6 80.0-94.0 [place] 848172-06-22 20:25:00 Test Item Value Reference Range Interpretation Comments MCH (test code = MCH) 30.7 pg 27.0-31.0 [place] 848172-06-22 20:25:00 Test Item Value Reference Range Interpretation Comments MCHC (test code = MCHC) 32.8 32.0-36.0 [place] 848172-06-22 20:25:00 Test Item Value Reference Range Interpretation Comments RDW (test code = RDW) 13.7 11.5-14.5 [place] 848172-06-22 20:25:00 Test Item Value Reference Range Interpretation Comments Platelet (test code = Platelet) 244 133-450 [place] 848172-06-22 20:25:00 Test Item Value Reference Range Interpretation Comments MPV (test code = MPV) 9.1 7.4-10.4 [facility]2022-06-22 20:25:00 Test Item Value Reference Range Interpretation Comments Glucose Lvl (test code = Glucose Lvl) 106 70-99 [facility]2022-06-22 20:25:00 Test Item Value Reference Range Interpretation Comments BUN (test code = BUN) 27 7-22 [place] 826522-06-22 20:25:00 Test Item Value Reference Range Interpretation Comments Creatinine Lvl (test code = Creatinine 1.17 0.50-1.40 Lvl) [place] 826522-06-22 20:25:00 Test Item Value Reference Range Interpretation Comments Sodium Lvl (test code = Sodium Lvl) 139 135-145 [place] 826522-06-22 20:25:00 Test Item Value Reference Range Interpretation Comments Potassium Lvl (test code = Potassium 4.2 3.5-5.1 Lvl) [place] 826522-06-22 20:25:00 Test Item Value Reference Range Interpretation Comments Chloride Lvl (test code = Chloride Lvl) 106 95-109 [place] 826522-06-22 20:25:00 Test Item Value Reference Range Interpretation Comments CO2 (test code = CO2) 26 24-32 [place] 826522-06-22 20:25:00 Test Item Value Reference Range Interpretation Comments Calcium Lvl (test code = Calcium Lvl) 9.7 8.5-10.5 [place] 826522-06-22 20:25:00 Test Item Value Reference Range Interpretation Comments Total Protein (test code = Total 8.1 6.4-8.4 Protein) [place] 826522-06-22 20:25:00 Test Item Value Reference Range Interpretation Comments Albumin Lvl (test code = Albumin Lvl) 4.4 3.5-5.0 [place] 826522-06-22 20:25:00 Test Item Value Reference Range Interpretation Comments ALANINE AMINOTRANSFERASE 27 See_Comment [A utomated message] (test code = ALANINE The sys tem which AMINOTRANSFERASE) generated this result transmitted ref erence range: <=65. Th e reference range was not used to int erpret this result as normal/abnormal . [place] 826522-06-22 20:25:00 Test Item Value Reference Range Interpretation Comments AST (test code = AST) 17 See_Comment [Auto mated message] The system which ge nerated this result transmit suze reference range : <=37. The reference range was not used to interpr et this result as anselmo l/abnormal. [place] 826522-06-22 20:25:00 Test Item Value Reference Range Interpretation Comments Alk Phos (test code = Alk Phos) 78 39-136 [place] 826522-06-22 20:25:00 Test Item Value Reference Range Interpretation Comments Bili Total (test code = Bili Total) 0.9 0.2-1.3 [place] 826522-06-22 20:25:00 Test Item Value Reference Range Interpretation Comments AGAP (test code = AGAP) 11.2 10.0-20.0 [place] 826522-06-22 20:25:00 Test Item Value Reference Range Interpretation Comments B/C Ratio (test code = B/C Ratio) 23 1 6-25 [place] 826522-06-22 20:25:00 Test Item Value Reference Range Interpretation Comments Globulin (test code = Globulin) 3.7 2.7-4.2 [place] 826522-06-22 20:25:00 Test Item Value Reference Range Interpretation Comments A/G Ratio (test code = A/G Ratio) 1.2 1 0.7-1.6 [place] 826522-06-22 20:25:00 Test Item Value Reference Range Interpretation Comments eGFR (test code = eGFR) 75 [place] 848172-06-22 20:25:00 Test Item Value Reference Range Interpretation Comments Segs (test code = Segs) 77.6 45.0-75.0 [place] 848172-06-22 20:25:00 Test Item Value Reference Range Interpretation Comments Lymphocytes (test code = Lymphocytes) 14.9 20.0-40.0 [place] 848172-06-22 20:25:00 Test Item Value Reference Range Interpretation Comments Monocytes (test code = Monocytes) 7.0 2.0-12.0 [place] [address]-06-22 20:25:00 Test Item Value Reference Range Interpretation Comments Eosinophils (test code = 0.1 See_Comment [A utomated message] The Eosinophils) system which ge nerated this result tra nsmitted reference range : <=4.0. The reference r peri was not used to int erpret this result as normal/abnormal . [facility]ly[facility]QQGRHAAE3600[facility]61-[facility] 20:25:00 Test Item Value Reference Range Interpretation Comments Basophils (test code = 0.4 See_Comment [Aut omated message] The Basophils) system which ge nerated this result tra nsmitted reference range : <=1.0. The reference r peri was not used to int erpret this result as normal/abnormal . [facility] HospitalLrpteupZEGAXLPRGR3786-97-66 20:25:00 Test Item Value Reference Range Interpretation Comments Neutrophils # (test code = Neutrophils 11.3 1.5-8.1 #) [facility] HospitalRbjtrztOUDQFBGDCB5588-80-17 20:25:00 Test Item Value Reference Range Interpretation Comments Lymphocytes # (test code = Lymphocytes 2.2 1.0-5.5 #) [facility] HospitalRhzhzarRERPPHFARA1626-70-05 20:25:00 Test Item Value Reference Range Interpretation Comments Monocytes # (test code 1.0 See_Comment [Aut omated message] The = Monocytes #) system which generated this result tra nsmitted reference range : <=0.8. The reference r peri was not used to int erpret this result as normal/abnormal . [facility] HospitalEgtvqhoFFGTXKVBVX6813-64-48 20:25:00 Test Item Value Reference Range Interpretation Comments Basophils # (test code 0.1 See_Comment [Aut omated message] The = Basophils #) system which generated this result tra nsmitted reference range : <=0.2. The reference r peri was not used to int erpret this result as normal/abnormal . [facility] HospitalHymygusJQQGKOAJTY4682-18-52 20:25:00 Test Item Value Reference Range Interpretation Comments WBC X 10x3 (test code = WBC X 10x3) 14.6 3.7-10.4 [facility] HospitalWkfvxauQSZSWCUXNO6798-49-62 20:25:00 Test Item Value Reference Range Interpretation Comments RBC X 10x6 (test code = RBC X 10x6) 4.77 4.70-6.10 [place] 848172-06-22 20:25:00 Test Item Value Reference Range Interpretation Comments Hgb (test code = Hgb) 14.6 14.0-18.0 [place] 848172-06-22 20:25:00 Test Item Value Reference Range Interpretation Comments Hct (test code = Hct) 44.7 42.0-54.0 [place] 848172-06-22 20:25:00 Test Item Value Reference Range Interpretation Comments MCV (test code = MCV) 93.6 80.0-94.0 [place] 848172-06-22 20:25:00 Test Item Value Reference Range Interpretation Comments MCH (test code = MCH) 30.7 pg 27.0-31.0 [place] 848172-06-22 20:25:00 Test Item Value Reference Range Interpretation Comments MCHC (test code = MCHC) 32.8 32.0-36.0 [place] 848172-06-22 20:25:00 Test Item Value Reference Range Interpretation Comments RDW (test code = RDW) 13.7 11.5-14.5 [place] 848172-06-22 20:25:00 Test Item Value Reference Range Interpretation Comments Platelet (test code = Platelet) 244 133-450 [facility] HospitalNuehjjwTDPPUEMYHA1254-90-00 20:25:00 Test Item Value Reference Range Interpretation Comments MPV (test code = MPV) 9.1 7.4-10.4 [facility]2022-06-22 20:25:00 Test Item Value Reference Range Interpretation Comments Glucose Lvl (test code = Glucose Lvl) 106 70-99 [facility]2022-06-22 20:25:00 Test Item Value Reference Range Interpretation Comments BUN (test code = BUN) 27 7-22 [facility]2022-06-22 20:25:00 Test Item Value Reference Range Interpretation Comments Creatinine Lvl (test code = Creatinine 1.17 0.50-1.40 Lvl) [place] 826522-06-22 20:25:00 Test Item Value Reference Range Interpretation Comments Sodium Lvl (test code = Sodium Lvl) 139 135-145 [place] 826522-06-22 20:25:00 Test Item Value Reference Range Interpretation Comments Potassium Lvl (test code = Potassium 4.2 3.5-5.1 Lvl) [facility]2022-06-22 20:25:00 Test Item Value Reference Range Interpretation Comments Chloride Lvl (test code = Chloride Lvl) 106 95-109 [place] 826522-06-22 20:25:00 Test Item Value Reference Range Interpretation Comments CO2 (test code = CO2) 24-32 [facility] [id number] 20:25:00 Test Item Value Reference Range Interpretation Comments Calcium Lvl (test code = Calcium Lvl) 9.7 8.5-10.5 [facility] [id number] 20:25:00 Test Item Value Reference Range Interpretation Comments Total Protein (test code = Total 8.1 6.4-8.4 Protein) [facility] [id number] 20:25:00 Test Item Value Reference Range Interpretation Comments Albumin Lvl (test code = Albumin Lvl) 4.4 3.5-5.0 [facility] [id number] 20:25:00 Test Item Value Reference Range Interpretation Comments ALANINE AMINOTRANSFERASE 27 See_Comment [A utomated message] (test code = ALANINE The sys tem which AMINOTRANSFERASE) generated this result transmitted ref erence range: <=65. Th e reference range was not used to int erpret this result as normal/abnormal . [facility] [id number] 20:25:00 Test Item Value Reference Range Interpretation Comments AST (test code = AST) 17 See_Comment [Auto mated message] The system which ge nerated this result transmit suze reference range : <=37. The reference range was not used to interpr et this result as anselmo l/abnormal. [facility] [employer] [id number] 20:25:00 Test Item Value Reference Range Interpretation Comments Alk Phos (test code = Alk Phos) 78 39-136 [facility] [employer] [id number] 20:25:00 Test Item Value Reference Range Interpretation Comments Bili Total (test code = Bili Total) 0.9 0.2-1.3 [facility] [employer] [id number] 20:25:00 Test Item Value Reference Range Interpretation Comments AGAP (test code = AGAP) 11.2 10.0-20.0 [facility] [employer] [id number] 20:25:00 Test Item Value Reference Range Interpretation Comments B/C Ratio (test code = B/C Ratio) 23 1 6-25 [facility] [employer] [id number] 20:25:00 Test Item Value Reference Range Interpretation Comments Globulin (test code = Globulin) 3.7 2.7-4.2 [facility] [employer] [id number] 20:25:00 Test Item Value Reference Range Interpretation Comments A/G Ratio (test code = A/G Ratio) 1.2 1 0.7-1.6 [facility] [id number] 20:25:00 Test Item Value Reference Range Interpretation Comments eGFR (test code = eGFR) 75 [facility] HospitalKdufoqdQEBURHZUXT4916-93-02 20:25:00 Test Item Value Reference Range Interpretation Comments Segs (test code = Segs) 77.6 45.0-75.0 [place] 848172-06-22 20:25:00 Test Item Value Reference Range Interpretation Comments Lymphocytes (test code = Lymphocytes) 14.9 20.0-40.0 [place] 848172-06-22 20:25:00 Test Item Value Reference Range Interpretation Comments Monocytes (test code = Monocytes) 7.0 2.0-12.0 [place] 848172-06-22 20:25:00 Test Item Value Reference Range Interpretation Comments Eosinophils (test code = 0.1 See_Comment [A utomated message] The Eosinophils) system which ge nerated this result tra nsmitted reference range : <=4.0. The reference r peri was not used to int erpret this result as normal/abnormal . [place] 848172-06-22 20:25:00 Test Item Value Reference Range Interpretation Comments Basophils (test code = 0.4 See_Comment [Aut omated message] The Basophils) system which ge nerated this result tra nsmitted reference range : <=1.0. The reference r peri was not used to int erpret this result as normal/abnormal . [facility] HospitalXcixuyiXOFIZUIHVO1394-83-43 20:25:00 Test Item Value Reference Range Interpretation Comments Neutrophils # (test code = Neutrophils 11.3 1.5-8.1 #) [place] 848172-06-22 20:25:00 Test Item Value Reference Range Interpretation Comments Lymphocytes # (test code = Lymphocytes 2.2 1.0-5.5 #) [place] 848172-06-22 20:25:00 Test Item Value Reference Range Interpretation Comments Monocytes # (test code 1.0 See_Comment [Aut omated message] The = Monocytes #) system which generated this result tra nsmitted reference range : <=0.8. The reference r peri was not used to int erpret this result as normal/abnormal . [facility] HospitalXrptcilIRUKMZEVBU5488-82-64 20:25:00 Test Item Value Reference Range Interpretation Comments Basophils # (test code 0.1 See_Comment [Aut omated message] The = Basophils #) system which generated this result tra nsmitted reference range : <=0.2. The reference r peri was not used to int erpret this result as normal/abnormal . [facility] HospitalRzyozzmETTWJXDWRM0677-78-58 20:25:00 Test Item Value Reference Range Interpretation Comments WBC X 10x3 (test code = WBC X 10x3) 14.6 3.7-10.4 [place] 848172-06-22 20:25:00 Test Item Value Reference Range Interpretation Comments RBC X 10x6 (test code = RBC X 10x6) 4.77 4.70-6.10 [place] 848172-06-22 20:25:00 Test Item Value Reference Range Interpretation Comments Hgb (test code = Hgb) 14.6 14.0-18.0 [place] 848172-06-22 20:25:00 Test Item Value Reference Range Interpretation Comments Hct (test code = Hct) 44.7 42.0-54.0 [place] 848172-06-22 20:25:00 Test Item Value Reference Range Interpretation Comments MCV (test code = MCV) 93.6 80.0-94.0 [place] 848172-06-22 20:25:00 Test Item Value Reference Range Interpretation Comments MCH (test code = MCH) 30.7 pg 27.0-31.0 [place] 848172-06-22 20:25:00 Test Item Value Reference Range Interpretation Comments MCHC (test code = MCHC) 32.8 32.0-36.0 [place] 848172-06-22 20:25:00 Test Item Value Reference Range Interpretation Comments RDW (test code = RDW) 13.7 11.5-14.5 [place] 848172-06-22 20:25:00 Test Item Value Reference Range Interpretation Comments Platelet (test code = Platelet) 244 133-450 [facility] HospitalSjvheojXNWMVZCZLP2888-67-30 20:25:00 Test Item Value Reference Range Interpretation Comments MPV (test code = MPV) 9.1 7.4-10.4 [place] 826522-06-22 20:25:00 Test Item Value Reference Range Interpretation Comments Glucose Lvl (test code = Glucose Lvl) 106 70-99 [place] 826522-06-22 20:25:00 Test Item Value Reference Range Interpretation Comments BUN (test code = BUN) 27 7-22 [place] 826522-06-22 20:25:00 Test Item Value Reference Range Interpretation Comments Creatinine Lvl (test code = Creatinine 1.17 0.50-1.40 Lvl) [place] 826522-06-22 20:25:00 Test Item Value Reference Range Interpretation Comments Sodium Lvl (test code = Sodium Lvl) 139 135-145 [place] 826522-06-22 20:25:00 Test Item Value Reference Range Interpretation Comments Potassium Lvl (test code = Potassium 4.2 3.5-5.1 Lvl) [facility]2022-06-22 20:25:00 Test Item Value Reference Range Interpretation Comments Chloride Lvl (test code = Chloride Lvl) 106 95-109 [place] 826522-06-22 20:25:00 Test Item Value Reference Range Interpretation Comments CO2 (test code = CO2) 26 24-32 [place] 826522-06-22 20:25:00 Test Item Value Reference Range Interpretation Comments Calcium Lvl (test code = Calcium Lvl) 9.7 8.5-10.5 [facility]2022-06-22 20:25:00 Test Item Value Reference Range Interpretation Comments Total Protein (test code = Total 8.1 6.4-8.4 Protein) [place] 826522-06-22 20:25:00 Test Item Value Reference Range Interpretation Comments Albumin Lvl (test code = Albumin Lvl) 4.4 3.5-5.0 [place] 826522-06-22 20:25:00 Test Item Value Reference Range Interpretation Comments ALANINE AMINOTRANSFERASE 27 See_Comment [A utomated message] (test code = ALANINE The sys tem which AMINOTRANSFERASE) generated this result transmitted ref erence range: <=65. Th e reference range was not used to int erpret this result as normal/abnormal . [place] 826522-06-22 20:25:00 Test Item Value Reference Range Interpretation Comments AST (test code = AST) 17 See_Comment [Auto mated message] The system which ge nerated this result transmit suze reference range : <=37. The reference range was not used to interpr et this result as anselmo l/abnormal. [facility] [id number] 20:25:00 Test Item Value Reference Range Interpretation Comments Alk Phos (test code = Alk Phos) 78 39-136 [facility] [id number] 20:25:00 Test Item Value Reference Range Interpretation Comments Bili Total (test code = Bili Total) 0.9 0.2-1.3 [place] 826522-06-22 20:25:00 Test Item Value Reference Range Interpretation Comments AGAP (test code = AGAP) 11.2 10.0-20.0 [facility] [id number] 20:25:00 Test Item Value Reference Range Interpretation Comments B/C Ratio (test code = B/C Ratio) 23 1 6-25 [facility] [id number] 20:25:00 Test Item Value Reference Range Interpretation Comments Globulin (test code = Globulin) 3.7 2.7-4.2 [facility] [id number] 20:25:00 Test Item Value Reference Range Interpretation Comments A/G Ratio (test code = A/G Ratio) 1.2 1 0.7-1.6 [facility] [id number] 20:25:00 Test Item Value Reference Range Interpretation Comments eGFR (test code = eGFR) 75 [place] 848172-06-22 20:25:00 Test Item Value Reference Range Interpretation Comments Segs (test code = Segs) 77.6 45.0-75.0 [place] 848172-06-22 20:25:00 Test Item Value Reference Range Interpretation Comments Lymphocytes (test code = Lymphocytes) 14.9 20.0-40.0 [place] 848172-06-22 20:25:00 Test Item Value Reference Range Interpretation Comments Monocytes (test code = Monocytes) 7.0 2.0-12.0 [facility] CenterRoykmlgRMHGZOMNMG1760-71-11 20:25:00 Test Item Value Reference Range Interpretation Comments Eosinophils (test code = 0.1 See_Comment [A utomated message] The Eosinophils) system which ge nerated this result tra nsmitted reference range : <=4.0. The reference r peri was not used to int erpret this result as normal/abnormal . [facility] HospitalQqmbyzzLPVVEUTNZZ5305-80-04 20:25:00 Test Item Value Reference Range Interpretation Comments Basophils (test code = 0.4 See_Comment [Aut omated message] The Basophils) system which ge nerated this result tra nsmitted reference range : <=1.0. The reference r peri was not used to int erpret this result as normal/abnormal . [place] 848172-06-22 20:25:00 Test Item Value Reference Range Interpretation Comments Neutrophils # (test code = Neutrophils 11.3 1.5-8.1 #) [place] 848172-06-22 20:25:00 Test Item Value Reference Range Interpretation Comments Lymphocytes # (test code = Lymphocytes 2.2 1.0-5.5 #) [place] 848172-06-22 20:25:00 Test Item Value Reference Range Interpretation Comments Monocytes # (test code 1.0 See_Comment [Aut omated message] The = Monocytes #) system which generated this result tra nsmitted reference range : <=0.8. The reference r peri was not used to int erpret this result as normal/abnormal . [place] 848172-06-22 20:25:00 Test Item Value Reference Range Interpretation Comments Basophils # (test code 0.1 See_Comment [Aut omated message] The = Basophils #) system which generated this result tra nsmitted reference range : <=0.2. The reference r peri was not used to int erpret this result as normal/abnormal . [place] 848172-06-22 20:25:00 Test Item Value Reference Range Interpretation Comments WBC X 10x3 (test code = WBC X 10x3) 14.6 3.7-10.4 [place] 848172-06-22 20:25:00 Test Item Value Reference Range Interpretation Comments RBC X 10x6 (test code = RBC X 10x6) 4.77 4.70-6.10 [place] 848172-06-22 20:25:00 Test Item Value Reference Range Interpretation Comments Hgb (test code = Hgb) 14.6 14.0-18.0 [place] 848172-06-22 20:25:00 Test Item Value Reference Range Interpretation Comments Hct (test code = Hct) 44.7 42.0-54.0 [place] 848172-06-22 20:25:00 Test Item Value Reference Range Interpretation Comments MCV (test code = MCV) 93.6 80.0-94.0 [place] 848172-06-22 20:25:00 Test Item Value Reference Range Interpretation Comments MCH (test code = MCH) 30.7 pg 27.0-31.0 [place] 848172-06-22 20:25:00 Test Item Value Reference Range Interpretation Comments MCHC (test code = MCHC) 32.8 32.0-36.0 [facility]2022-06-22 20:25:00 Test Item Value Reference Range Interpretation Comments Glucose Lvl (test code = Glucose Lvl) 106 70-99 [facility]2022-06-22 20:25:00 Test Item Value Reference Range Interpretation Comments BUN (test code = BUN) 27 7-22 [place] 826522-06-22 20:25:00 Test Item Value Reference Range Interpretation Comments Creatinine Lvl (test code = Creatinine 1.17 0.50-1.40 Lvl) [facility]2022-06-22 20:25:00 Test Item Value Reference Range Interpretation Comments Sodium Lvl (test code = Sodium Lvl) 139 135-145 [facility]2022-06-22 20:25:00 Test Item Value Reference Range Interpretation Comments Potassium Lvl (test code = Potassium 4.2 3.5-5.1 Lvl) [place] 826522-06-22 20:25:00 Test Item Value Reference Range Interpretation Comments Chloride Lvl (test code = Chloride Lvl) 106 95-109 [place] 826522-06-22 20:25:00 Test Item Value Reference Range Interpretation Comments CO2 (test code = CO2) 26 24-32 [place] 826522-06-22 20:25:00 Test Item Value Reference Range Interpretation Comments Calcium Lvl (test code = Calcium Lvl) 9.7 8.5-10.5 [place] 826522-06-22 20:25:00 Test Item Value Reference Range Interpretation Comments Total Protein (test code = Total 8.1 6.4-8.4 Protein) [facility] HospitalJefgkpzAAFNSBCHHK1525-32-24 20:25:00 Test Item Value Reference Range Interpretation Comments RDW (test code = RDW) 13.7 11.5-14.5 [place] 826522-06-22 20:25:00 Test Item Value Reference Range Interpretation Comments Albumin Lvl (test code = Albumin Lvl) 4.4 3.5-5.0 [place] 826522-06-22 20:25:00 Test Item Value Reference Range Interpretation Comments ALANINE AMINOTRANSFERASE 27 See_Comment [A utomated message] (test code = ALANINE The sys tem which AMINOTRANSFERASE) generated this result transmitted ref erence range: <=65. Th e reference range was not used to int erpret this result as normal/abnormal . [place] 826522-06-22 20:25:00 Test Item Value Reference Range Interpretation Comments AST (test code = AST) 17 See_Comment [Auto mated message] The system which ge nerated this result transmit suze reference range : <=37. The reference range was not used to interpr et this result as anselmo l/abnormal. [place] 826522-06-22 20:25:00 Test Item Value Reference Range Interpretation Comments Alk Phos (test code = Alk Phos) 78 39-136 [place] 826522-06-22 20:25:00 Test Item Value Reference Range Interpretation Comments Bili Total (test code = Bili Total) 0.9 0.2-1.3 [place] 826522-06-22 20:25:00 Test Item Value Reference Range Interpretation Comments AGAP (test code = AGAP) 11.2 10.0-20.0 [place] 826522-06-22 20:25:00 Test Item Value Reference Range Interpretation Comments B/C Ratio (test code = B/C Ratio) 23 1 6-25 [place] 826522-06-22 20:25:00 Test Item Value Reference Range Interpretation Comments Globulin (test code = Globulin) 3.7 2.7-4.2 [place] 826522-06-22 20:25:00 Test Item Value Reference Range Interpretation Comments A/G Ratio (test code = A/G Ratio) 1.2 1 0.7-1.6 [facility]2022-06-22 20:25:00 Test Item Value Reference Range Interpretation Comments eGFR (test code = eGFR) 75 [place] 848172-06-22 20:25:00 Test Item Value Reference Range Interpretation Comments Platelet (test code = Platelet) 244 133-450 [place] 848172-06-22 20:25:00 Test Item Value Reference Range Interpretation Comments Segs (test code = Segs) 77.6 45.0-75.0 [place] 848172-06-22 20:25:00 Test Item Value Reference Range Interpretation Comments Lymphocytes (test code = Lymphocytes) 14.9 20.0-40.0 [place] 848172-06-22 20:25:00 Test Item Value Reference Range Interpretation Comments Monocytes (test code = Monocytes) 7.0 2.0-12.0 [place] 848172-06-22 20:25:00 Test Item Value Reference Range Interpretation Comments Eosinophils (test code = 0.1 See_Comment [A utomated message] The Eosinophils) system which ge nerated this result tra nsmitted reference range : <=4.0. The reference r peri was not used to int erpret this result as normal/abnormal . [facility] HospitalVshnbjqDQPLDEOZJF5420-61-79 20:25:00 Test Item Value Reference Range Interpretation Comments Basophils (test code = 0.4 See_Comment [Aut omated message] The Basophils) system which ge nerated this result tra nsmitted reference range : <=1.0. The reference r peri was not used to int erpret this result as normal/abnormal . [place] 848172-06-22 20:25:00 Test Item Value Reference Range Interpretation Comments Neutrophils # (test code = Neutrophils 11.3 1.5-8.1 #) [place] 848172-06-22 20:25:00 Test Item Value Reference Range Interpretation Comments Lymphocytes # (test code = Lymphocytes 2.2 1.0-5.5 #) [place] 848172-06-22 20:25:00 Test Item Value Reference Range Interpretation Comments Monocytes # (test code 1.0 See_Comment [Aut omated message] The = Monocytes #) system which generated this result tra nsmitted reference range : <=0.8. The reference r peri was not used to int erpret this result as normal/abnormal . [facility] HospitalUiolcyuHJXOJKUQBF8752-17-78 20:25:00 Test Item Value Reference Range Interpretation Comments Basophils # (test code 0.1 See_Comment [Aut omated message] The = Basophils #) system which generated this result tra nsmitted reference range : <=0.2. The reference r peri was not used to int erpret this result as normal/abnormal . [facility] HospitalFyfwbedATBMOFFAYY5733-34-49 20:25:00 Test Item Value Reference Range Interpretation Comments WBC X 10x3 (test code = WBC X 10x3) 14.6 3.7-10.4 [facility] HospitalZlqhlqkOMECZQZPPA4609-78-39 20:25:00 Test Item Value Reference Range Interpretation Comments MPV (test code = MPV) 9.1 7.4-10.4 [facility] HospitalVfpxeanYWTIWEXNSJ5542-42-38 20:25:00 Test Item Value Reference Range Interpretation Comments RBC X 10x6 (test code = RBC X 10x6) 4.77 4.70-6.10 [facility]EmrjhmbTGERFKUNDJ7768-68-38 20:25:00 Test Item Value Reference Range Interpretation Comments Hgb (test code = Hgb) 14.6 14.0-18.0 [facility] HospitalBdiftlpAHZKFHTSUC6142-09-03 20:25:00 Test Item Value Reference Range Interpretation Comments Hct (test code = Hct) 44.7 42.0-54.0 [facility] HospitalBmmifniMMLHAZPCSO1509-22-61 20:25:00 Test Item Value Reference Range Interpretation Comments MCV (test code = MCV) 93.6 80.0-94.0 [place] 848172-06-22 20:25:00 Test Item Value Reference Range Interpretation Comments MCH (test code = MCH) 30.7 pg 27.0-31.0 [facility] HospitalYunpxdtGXLQDFZJQT0136-95-46 20:25:00 Test Item Value Reference Range Interpretation Comments MCHC (test code = MCHC) 32.8 32.0-36.0 [place] 848172-06-22 20:25:00 Test Item Value Reference Range Interpretation Comments RDW (test code = RDW) 13.7 11.5-14.5 [place] 848172-06-22 20:25:00 Test Item Value Reference Range Interpretation Comments Platelet (test code = Platelet) 244 133-450 [place] 848172-06-22 20:25:00 Test Item Value Reference Range Interpretation Comments MPV (test code = MPV) 9.1 7.4-10.4 [place] 826522-06-22 20:25:00 Test Item Value Reference Range Interpretation Comments Glucose Lvl (test code = Glucose Lvl) 106 70-99 [place] 826522-06-22 20:25:00 Test Item Value Reference Range Interpretation Comments BUN (test code = BUN) 27 7-22 [place] 826522-06-22 20:25:00 Test Item Value Reference Range Interpretation Comments Creatinine Lvl (test code = Creatinine 1.17 0.50-1.40 Lvl) [place] 826522-06-22 20:25:00 Test Item Value Reference Range Interpretation Comments Sodium Lvl (test code = Sodium Lvl) 139 135-145 [place] 826522-06-22 20:25:00 Test Item Value Reference Range Interpretation Comments Potassium Lvl (test code = Potassium 4.2 3.5-5.1 Lvl) [place] 826522-06-22 20:25:00 Test Item Value Reference Range Interpretation Comments Chloride Lvl (test code = Chloride Lvl) 106 95-109 [place] 826522-06-22 20:25:00 Test Item Value Reference Range Interpretation Comments CO2 (test code = CO2) 26 24-32 [place] 826522-06-22 20:25:00 Test Item Value Reference Range Interpretation Comments Calcium Lvl (test code = Calcium Lvl) 9.7 8.5-10.5 [place] 826522-06-22 20:25:00 Test Item Value Reference Range Interpretation Comments Total Protein (test code = Total 8.1 6.4-8.4 Protein) [place] 826522-06-22 20:25:00 Test Item Value Reference Range Interpretation Comments Albumin Lvl (test code = Albumin Lvl) 4.4 3.5-5.0 [place] 826522-06-22 20:25:00 Test Item Value Reference Range Interpretation Comments ALANINE AMINOTRANSFERASE 27 See_Comment [A utomated message] (test code = ALANINE The sys tem which AMINOTRANSFERASE) generated this result transmitted ref erence range: <=65. Th e reference range was not used to int erpret this result as normal/abnormal . [facility] [employer] [id number] 20:25:00 Test Item Value Reference Range Interpretation Comments AST (test code = AST) 17 See_Comment [Auto mated message] The system which ge nerated this result transmit suze reference range : <=37. The reference range was not used to interpr et this result as anselmo l/abnormal. [facility] [employer] [id number] 20:25:00 Test Item Value Reference Range Interpretation Comments Alk Phos (test code = Alk Phos) 78 39-136 [facility] [employer] [id number] 20:25:00 Test Item Value Reference Range Interpretation Comments Bili Total (test code = Bili Total) 0.9 0.2-1.3 [facility] [employer] [id number] 20:25:00 Test Item Value Reference Range Interpretation Comments AGAP (test code = AGAP) 11.2 10.0-20.0 [facility] [employer] [id number] 20:25:00 Test Item Value Reference Range Interpretation Comments B/C Ratio (test code = B/C Ratio) 23 1 6-25 [facility] [id number] 20:25:00 Test Item Value Reference Range Interpretation Comments Globulin (test code = Globulin) 3.7 2.7-4.2 [facility] [employer] [id number] 20:25:00 Test Item Value Reference Range Interpretation Comments A/G Ratio (test code = A/G Ratio) 1.2 1 0.7-1.6 [facility] [employer] [id number] 20:25:00 Test Item Value Reference Range Interpretation Comments eGFR (test code = eGFR) 75 [facility]KS[facility]-79 20:25:00 Test Item Value Reference Range Interpretation Comments Segs (test code = Segs) 77.6 45.0-75.0 [facility] CenterYquszhbUETKYZVKJS4190-36-67 20:25:00 Test Item Value Reference Range Interpretation Comments Lymphocytes (test code = Lymphocytes) 14.9 20.0-40.0 [place] 848172-06-22 20:25:00 Test Item Value Reference Range Interpretation Comments Monocytes (test code = Monocytes) 7.0 2.0-12.0 [place] 848172-06-22 20:25:00 Test Item Value Reference Range Interpretation Comments Eosinophils (test code = 0.1 See_Comment [A utomated message] The Eosinophils) system which ge nerated this result tra nsmitted reference range : <=4.0. The reference r peri was not used to int erpret this result as normal/abnormal . [facility] HospitalBdmcvpsHELLVNJYZN6807-83-75 20:25:00 Test Item Value Reference Range Interpretation Comments Basophils (test code = 0.4 See_Comment [Aut omated message] The Basophils) system which ge nerated this result tra nsmitted reference range : <=1.0. The reference r peri was not used to int erpret this result as normal/abnormal . [facility] HospitalOnohmkyQJJRFNFKWC6897-37-92 20:25:00 Test Item Value Reference Range Interpretation Comments Neutrophils # (test code = Neutrophils 11.3 1.5-8.1 #) [place] 848172-06-22 20:25:00 Test Item Value Reference Range Interpretation Comments Lymphocytes # (test code = Lymphocytes 2.2 1.0-5.5 #) [facility] Hospit[id number] 20:25:00 Test Item Value Reference Range Interpretation Comments Monocytes # (test code 1.0 See_Comment [Aut omated message] The = Monocytes #) system which generated this result tra nsmitted reference range : <=0.8. The reference r peri was not used to int erpret this result as normal/abnormal . [facility] HospitalPpadofuMSDRPJTVBA4129-53-74 20:25:00 Test Item Value Reference Range Interpretation Comments Basophils # (test code 0.1 See_Comment [Aut omated message] The = Basophils #) system which generated this result tra nsmitted reference range : <=0.2. The reference r peri was not used to int erpret this result as normal/abnormal . [facility] HospitalExhwclyTICHIBGNDL4459-12-11 20:25:00 Test Item Value Reference Range Interpretation Comments WBC X 10x3 (test code = WBC X 10x3) 14.6 3.7-10.4 [place] 848172-06-22 20:25:00 Test Item Value Reference Range Interpretation Comments RBC X 10x6 (test code = RBC X 10x6) 4.77 4.70-6.10 [place] 848172-06-22 20:25:00 Test Item Value Reference Range Interpretation Comments Hgb (test code = Hgb) 14.6 14.0-18.0 [place] 848172-06-22 20:25:00 Test Item Value Reference Range Interpretation Comments Hct (test code = Hct) 44.7 42.0-54.0 [place] 848172-06-22 20:25:00 Test Item Value Reference Range Interpretation Comments MCV (test code = MCV) 93.6 80.0-94.0 [place] 848172-06-22 20:25:00 Test Item Value Reference Range Interpretation Comments MCH (test code = MCH) 30.7 pg 27.0-31.0 [place] 848172-06-22 20:25:00 Test Item Value Reference Range Interpretation Comments MCHC (test code = MCHC) 32.8 32.0-36.0 [place] 848172-06-22 20:25:00 Test Item Value Reference Range Interpretation Comments RDW (test code = RDW) 13.7 11.5-14.5 [place] 848172-06-22 20:25:00 Test Item Value Reference Range Interpretation Comments Platelet (test code = Platelet) 244 133-450 [facility] HospitalJyluszjQTOPAHXYQE3043-84-89 20:25:00 Test Item Value Reference Range Interpretation Comments MPV (test code = MPV) 9.1 7.4-10.4 [facility]2022-06-22 20:25:00 Test Item Value Reference Range Interpretation Comments Glucose Lvl (test code = Glucose Lvl) 106 70-99 [facility]2022-06-22 20:25:00 Test Item Value Reference Range Interpretation Comments BUN (test code = BUN) 27 7-22 [place] 826522-06-22 20:25:00 Test Item Value Reference Range Interpretation Comments Creatinine Lvl (test code = Creatinine 1.17 0.50-1.40 Lvl) [facility]2022-06-22 20:25:00 Test Item Value Reference Range Interpretation Comments Sodium Lvl (test code = Sodium Lvl) 139 135-145 [place] 826522-06-22 20:25:00 Test Item Value Reference Range Interpretation Comments Potassium Lvl (test code = Potassium 4.2 3.5-5.1 Lvl) [place] 826522-06-22 20:25:00 Test Item Value Reference Range Interpretation Comments Chloride Lvl (test code = Chloride Lvl) 106 95-109 [place] 826522-06-22 20:25:00 Test Item Value Reference Range Interpretation Comments CO2 (test code = CO2) 26 24-32 [place] 826522-06-22 20:25:00 Test Item Value Reference Range Interpretation Comments Calcium Lvl (test code = Calcium Lvl) 9.7 8.5-10.5 [place] 826522-06-22 20:25:00 Test Item Value Reference Range Interpretation Comments Total Protein (test code = Total 8.1 6.4-8.4 Protein) [place] 826522-06-22 20:25:00 Test Item Value Reference Range Interpretation Comments Albumin Lvl (test code = Albumin Lvl) 4.4 3.5-5.0 [place] 826522-06-22 20:25:00 Test Item Value Reference Range Interpretation Comments ALANINE AMINOTRANSFERASE 27 See_Comment [A utomated message] (test code = ALANINE The sys tem which AMINOTRANSFERASE) generated this result transmitted ref erence range: <=65. Th e reference range was not used to int erpret this result as normal/abnormal . [place] 826522-06-22 20:25:00 Test Item Value Reference Range Interpretation Comments AST (test code = AST) 17 See_Comment [Auto mated message] The system which ge nerated this result transmit suze reference range : <=37. The reference range was not used to interpr et this result as anselmo l/abnormal. [place] 826522-06-22 20:25:00 Test Item Value Reference Range Interpretation Comments Alk Phos (test code = Alk Phos) 78 39-136 [place] 826522-06-22 20:25:00 Test Item Value Reference Range Interpretation Comments Bili Total (test code = Bili Total) 0.9 0.2-1.3 [place] [address]-06-22 20:25:00 Test Item Value Reference Range Interpretation Comments AGAP (test code = AGAP) 11.2 10.0-20.0 [place] 826522-06-22 20:25:00 Test Item Value Reference Range Interpretation Comments B/C Ratio (test code = B/C Ratio) 23 1 6-25 [place] [address]-06-22 20:25:00 Test Item Value Reference Range Interpretation Comments Globulin (test code = Globulin) 3.7 2.7-4.2 [place] 826522-06-22 20:25:00 Test Item Value Reference Range Interpretation Comments A/G Ratio (test code = A/G Ratio) 1.2 1 0.7-1.6 [place] [address]-06-22 20:25:00 Test Item Value Reference Range Interpretation Comments eGFR (test code = eGFR) 75 [place] 848172-06-22 20:25:00 Test Item Value Reference Range Interpretation Comments Segs (test code = Segs) 77.6 45.0-75.0 [place] [address]-06-22 20:25:00 Test Item Value Reference Range Interpretation Comments Lymphocytes (test code = Lymphocytes) 14.9 20.0-40.0 [place] [address]-06-22 20:25:00 Test Item Value Reference Range Interpretation Comments Monocytes (test code = Monocytes) 7.0 2.0-12.0 [place] 848172-06-22 20:25:00 Test Item Value Reference Range Interpretation Comments Eosinophils (test code = 0.1 See_Comment [A utomated message] The Eosinophils) system which ge nerated this result tra nsmitted reference range : <=4.0. The reference r peri was not used to int erpret this result as normal/abnormal . [place] [address]-06-22 20:25:00 Test Item Value Reference Range Interpretation Comments Basophils (test code = 0.4 See_Comment [Aut omated message] The Basophils) system which ge nerated this result tra nsmitted reference range : <=1.0. The reference r peri was not used to int erpret this result as normal/abnormal . [place] 848172-06-22 20:25:00 Test Item Value Reference Range Interpretation Comments Neutrophils # (test code = Neutrophils 11.3 1.5-8.1 #) [place] 826522-06-22 20:25:00 Test Item Value Reference Range Interpretation Comments Glucose Lvl (test code = Glucose Lvl) 106 70-99 [place] 826522-06-22 20:25:00 Test Item Value Reference Range Interpretation Comments BUN (test code = BUN) 27 7-22 [place] 826522-06-22 20:25:00 Test Item Value Reference Range Interpretation Comments Creatinine Lvl (test code = Creatinine 1.17 0.50-1.40 Lvl) [place] 826522-06-22 20:25:00 Test Item Value Reference Range Interpretation Comments Sodium Lvl (test code = Sodium Lvl) 139 135-145 [place] 848172-06-22 20:25:00 Test Item Value Reference Range Interpretation Comments Lymphocytes # (test code = Lymphocytes 2.2 1.0-5.5 #) [place] 826522-06-22 20:25:00 Test Item Value Reference Range Interpretation Comments Potassium Lvl (test code = Potassium 4.2 3.5-5.1 Lvl) [place] 826522-06-22 20:25:00 Test Item Value Reference Range Interpretation Comments Chloride Lvl (test code = Chloride Lvl) 106 95-109 [place] 826522-06-22 20:25:00 Test Item Value Reference Range Interpretation Comments CO2 (test code = CO2) 26 24-32 [place] 826522-06-22 20:25:00 Test Item Value Reference Range Interpretation Comments Calcium Lvl (test code = Calcium Lvl) 9.7 8.5-10.5 [place] 826522-06-22 20:25:00 Test Item Value Reference Range Interpretation Comments Total Protein (test code = Total 8.1 6.4-8.4 Protein) [place] 826522-06-22 20:25:00 Test Item Value Reference Range Interpretation Comments Albumin Lvl (test code = Albumin Lvl) 4.4 3.5-5.0 [place] 826522-06-22 20:25:00 Test Item Value Reference Range Interpretation Comments ALANINE AMINOTRANSFERASE 27 See_Comment [A utomated message] (test code = ALANINE The sys tem which AMINOTRANSFERASE) generated this result transmitted ref erence range: <=65. Th e reference range was not used to int erpret this result as normal/abnormal . [facility] [employer] [id number] 20:25:00 Test Item Value Reference Range Interpretation Comments AST (test code = AST) 17 See_Comment [Auto mated message] The system which ge nerated this result transmit suze reference range : <=37. The reference range was not used to interpr et this result as anselmo l/abnormal. [facility] [employer] [id number] 20:25:00 Test Item Value Reference Range Interpretation Comments Alk Phos (test code = Alk Phos) 78 39-136 [facility] [employer] [id number] 20:25:00 Test Item Value Reference Range Interpretation Comments Bili Total (test code = Bili Total) 0.9 0.2-1.3 [facility] CenterWmrfecpLHNJYTXMQO3209-93-44 20:25:00 Test Item Value Reference Range Interpretation Comments Monocytes # (test code 1.0 See_Comment [Aut omated message] The = Monocytes #) system which generated this result tra nsmitted reference range : <=0.8. The reference r peri was not used to int erpret this result as normal/abnormal . [facility] [employer] [id number] 20:25:00 Test Item Value Reference Range Interpretation Comments AGAP (test code = AGAP) 11.2 10.0-20.0 [facility] [employer] [id number] 20:25:00 Test Item Value Reference Range Interpretation Comments B/C Ratio (test code = B/C Ratio) 23 1 6-25 [facility] [employer] [id number] 20:25:00 Test Item Value Reference Range Interpretation Comments Globulin (test code = Globulin) 3.7 2.7-4.2 [facility] [employer] [id number] 20:25:00 Test Item Value Reference Range Interpretation Comments A/G Ratio (test code = A/G Ratio) 1.2 1 0.7-1.6 [facility] [employer] [id number] 20:25:00 Test Item Value Reference Range Interpretation Comments eGFR (test code = eGFR) 75 [facility] CenterIskvzaiXTPRCGFIOT3072-52-49 20:25:00 Test Item Value Reference Range Interpretation Comments Segs (test code = Segs) 77.6 45.0-75.0 [place] 848172-06-22 20:25:00 Test Item Value Reference Range Interpretation Comments Lymphocytes (test code = Lymphocytes) 14.9 20.0-40.0 [place] 848172-06-22 20:25:00 Test Item Value Reference Range Interpretation Comments Monocytes (test code = Monocytes) 7.0 2.0-12.0 [place] 848172-06-22 20:25:00 Test Item Value Reference Range Interpretation Comments Eosinophils (test code = 0.1 See_Comment [A utomated message] The Eosinophils) system which ge nerated this result tra nsmitted reference range : <=4.0. The reference r peri was not used to int erpret this result as normal/abnormal . [facility] HospitalRpmqwqiYRZNVJFCGV1326-40-01 20:25:00 Test Item Value Reference Range Interpretation Comments Basophils (test code = 0.4 See_Comment [Aut omated message] The Basophils) system which ge nerated this result tra nsmitted reference range : <=1.0. The reference r peri was not used to int erpret this result as normal/abnormal . [place] 848172-06-22 20:25:00 Test Item Value Reference Range Interpretation Comments Basophils # (test code 0.1 See_Comment [Aut omated message] The = Basophils #) system which generated this result tra nsmitted reference range : <=0.2. The reference r peri was not used to int erpret this result as normal/abnormal . [facility] HospitalEwcojktBEAFAWYPRF3418-37-84 20:25:00 Test Item Value Reference Range Interpretation Comments Neutrophils # (test code = Neutrophils 11.3 1.5-8.1 #) [place] 848172-06-22 20:25:00 Test Item Value Reference Range Interpretation Comments Lymphocytes # (test code = Lymphocytes 2.2 1.0-5.5 #) [place] 848172-06-22 20:25:00 Test Item Value Reference Range Interpretation Comments Monocytes # (test code 1.0 See_Comment [Aut omated message] The = Monocytes #) system which generated this result tra nsmitted reference range : <=0.8. The reference r peri was not used to int erpret this result as normal/abnormal . [facility] HospitalInupsfrMLLQWBLARO4274-79-92 20:25:00 Test Item Value Reference Range Interpretation Comments Basophils # (test code 0.1 See_Comment [Aut omated message] The = Basophils #) system which generated this result tra nsmitted reference range : <=0.2. The reference r peri was not used to int erpret this result as normal/abnormal . [facility] HospitalVyfyiriFTTAKRRRBP9803-31-16 20:25:00 Test Item Value Reference Range Interpretation Comments WBC X 10x3 (test code = WBC X 10x3) 14.6 3.7-10.4 [facility] HospitalKwdsaqfJZTPSGJJPD7865-27-60 20:25:00 Test Item Value Reference Range Interpretation Comments RBC X 10x6 (test code = RBC X 10x6) 4.77 4.70-6.10 [facility] HospitalUlotghvWUBHWYSACL7776-57-44 20:25:00 Test Item Value Reference Range Interpretation Comments Hgb (test code = Hgb) 14.6 14.0-18.0 [place] 848172-06-22 20:25:00 Test Item Value Reference Range Interpretation Comments Hct (test code = Hct) 44.7 42.0-54.0 [facility] HospitalJxtwnizTDQKLTVCBS1849-28-95 20:25:00 Test Item Value Reference Range Interpretation Comments MCV (test code = MCV) 93.6 80.0-94.0 [facility] HospitalEhybwhqGAMTBFVINF5149-90-44 20:25:00 Test Item Value Reference Range Interpretation Comments MCH (test code = MCH) 30.7 pg 27.0-31.0 [facility] HospitalCdviinrHCEEUMOVPS5235-64-97 20:25:00 Test Item Value Reference Range Interpretation Comments WBC X 10x3 (test code = WBC X 10x3) 14.6 3.7-10.4 [facility] HospitalFxovikqQAHBOOBMGY9757-83-62 20:25:00 Test Item Value Reference Range Interpretation Comments MCHC (test code = MCHC) 32.8 32.0-36.0 [place] 848172-06-22 20:25:00 Test Item Value Reference Range Interpretation Comments RDW (test code = RDW) 13.7 11.5-14.5 [place] 848172-06-22 20:25:00 Test Item Value Reference Range Interpretation Comments Platelet (test code = Platelet) [address] [facility] HospitalYwdwtncPMEWVMYHEJ1750-92-06 20:25:00 Test Item Value Reference Range Interpretation Comments MPV (test code = MPV) 9.1 7.4-10.4 [place] 848172-06-22 20:25:00 Test Item Value Reference Range Interpretation Comments RBC X 10x6 (test code = RBC X 10x6) 4.77 4.70-6.10 [facility] HospitalUinuearRJRDPLWSRR4051-42-60 20:25:00 Test Item Value Reference Range Interpretation Comments Hgb (test code = Hgb) 14.6 14.0-18.0 [facility] HospitalJintfphPETCRRYQFA6255-17-43 20:25:00 Test Item Value Reference Range Interpretation Comments Hct (test code = Hct) 44.7 42.0-54.0 [facility] HospitalCiqtozcVNPOBUPXOV6419-60-73 20:25:00 Test Item Value Reference Range Interpretation Comments MCV (test code = MCV) 93.6 80.0-94.0 [facility] HospitalGrljpgxLFHLQKWMRT5532-30-71 20:25:00 Test Item Value Reference Range Interpretation Comments MCH (test code = MCH) 30.7 pg 27.0-31.0 [facility] HospitalTmmxbwlIDVWWLLLLT7008-44-47 20:25:00 Test Item Value Reference Range Interpretation Comments MCHC (test code = MCHC) 32.8 32.0-36.0 [facility] HospitalVadjaejWCBUVDODBR0158-59-78 20:25:00 Test Item Value Reference Range Interpretation Comments RDW (test code = RDW) 13.7 11.5-14.5 [facility] HospitalUsqrfmvHITLYEFWGP1812-83-46 20:25:00 Test Item Value Reference Range Interpretation Comments Platelet (test code = Platelet) 244 133-317 [facility] HospitalFbzcfdvSIWFVTIIMF3960-39-40 20:25:00 Test Item Value Reference Range Interpretation Comments MPV (test code = MPV) 9.1 7.4-10.4 [facility]2022-06-22 20:25:00 Test Item Value Reference Range Interpretation Comments Glucose Lvl (test code = Glucose Lvl) 106 70-99 [facility]2022-06-22 20:25:00 Test Item Value Reference Range Interpretation Comments BUN (test code = BUN) 27 7-22 [place] 826522-06-22 20:25:00 Test Item Value Reference Range Interpretation Comments Creatinine Lvl (test code = Creatinine 1.17 0.50-1.40 Lvl) [place] 826522-06-22 20:25:00 Test Item Value Reference Range Interpretation Comments Sodium Lvl (test code = Sodium Lvl) 139 135-145 [place] 826522-06-22 20:25:00 Test Item Value Reference Range Interpretation Comments Potassium Lvl (test code = Potassium 4.2 3.5-5.1 Lvl) [place] 826522-06-22 20:25:00 Test Item Value Reference Range Interpretation Comments Chloride Lvl (test code = Chloride Lvl) 106 95-109 [place] 826522-06-22 20:25:00 Test Item Value Reference Range Interpretation Comments CO2 (test code = CO2) 26 24-32 [place] 826522-06-22 20:25:00 Test Item Value Reference Range Interpretation Comments Calcium Lvl (test code = Calcium Lvl) 9.7 8.5-10.5 [place] 826522-06-22 20:25:00 Test Item Value Reference Range Interpretation Comments Total Protein (test code = Total 8.1 6.4-8.4 Protein) [place] 826522-06-22 20:25:00 Test Item Value Reference Range Interpretation Comments Albumin Lvl (test code = Albumin Lvl) 4.4 3.5-5.0 [place] 826522-06-22 20:25:00 Test Item Value Reference Range Interpretation Comments ALANINE AMINOTRANSFERASE 27 See_Comment [A utomated message] (test code = ALANINE The sys tem which AMINOTRANSFERASE) generated this result transmitted ref erence range: <=65. Th e reference range was not used to int erpret this result as normal/abnormal . [place] 826522-06-22 20:25:00 Test Item Value Reference Range Interpretation Comments AST (test code = AST) 17 See_Comment [Auto mated message] The system which ge nerated this result transmit suze reference range : <=37. The reference range was not used to interpr et this result as anselmo l/abnormal. [place] 826522-06-22 20:25:00 Test Item Value Reference Range Interpretation Comments Alk Phos (test code = Alk Phos) 78 39-136 [facility]2022-06-22 20:25:00 Test Item Value Reference Range Interpretation Comments Bili Total (test code = Bili Total) 0.9 0.2-1.3 [facility]2022-06-22 20:25:00 Test Item Value Reference Range Interpretation Comments AGAP (test code = AGAP) 11.2 10.0-20.0 [place] 826522-06-22 20:25:00 Test Item Value Reference Range Interpretation Comments B/C Ratio (test code = B/C Ratio) 23 1 6-25 [place] 826522-06-22 20:25:00 Test Item Value Reference Range Interpretation Comments Globulin (test code = Globulin) 3.7 2.7-4.2 [facility]2022-06-22 20:25:00 Test Item Value Reference Range Interpretation Comments A/G Ratio (test code = A/G Ratio) 1.2 1 0.7-1.6 [place] 826522-06-22 20:25:00 Test Item Value Reference Range Interpretation Comments eGFR (test code = eGFR) 75 [facility] HospitalFqvdrnbMVMBVGWNVV4202-27-75 20:25:00 Test Item Value Reference Range Interpretation Comments Segs (test code = Segs) 77.6 45.0-75.0 [place] 848172-06-22 20:25:00 Test Item Value Reference Range Interpretation Comments Lymphocytes (test code = Lymphocytes) 14.9 20.0-40.0 [place] 848172-06-22 20:25:00 Test Item Value Reference Range Interpretation Comments Monocytes (test code = Monocytes) 7.0 2.0-12.0 [place] 848172-06-22 20:25:00 Test Item Value Reference Range Interpretation Comments Eosinophils (test code = 0.1 See_Comment [A utomated message] The Eosinophils) system which ge nerated this result tra nsmitted reference range : <=4.0. The reference r peri was not used to int erpret this result as normal/abnormal . [facility] HospitalIripvujCSSKPSUBOM8351-44-73 20:25:00 Test Item Value Reference Range Interpretation Comments Basophils (test code = 0.4 See_Comment [Aut omated message] The Basophils) system which ge nerated this result tra nsmitted reference range : <=1.0. The reference r peri was not used to int erpret this result as normal/abnormal . [place] 848172-06-22 20:25:00 Test Item Value Reference Range Interpretation Comments Neutrophils # (test code = Neutrophils 11.3 1.5-8.1 #) [place] 848172-06-22 20:25:00 Test Item Value Reference Range Interpretation Comments Lymphocytes # (test code = Lymphocytes 2.2 1.0-5.5 #) [place] 848172-06-22 20:25:00 Test Item Value Reference Range Interpretation Comments Monocytes # (test code 1.0 See_Comment [Aut omated message] The = Monocytes #) system which generated this result tra nsmitted reference range : <=0.8. The reference r peri was not used to int erpret this result as normal/abnormal . [place] 848172-06-22 20:25:00 Test Item Value Reference Range Interpretation Comments Basophils # (test code 0.1 See_Comment [Aut omated message] The = Basophils #) system which generated this result tra nsmitted reference range : <=0.2. The reference r peri was not used to int erpret this result as normal/abnormal . [place] 848172-06-22 20:25:00 Test Item Value Reference Range Interpretation Comments WBC X 10x3 (test code = WBC X 10x3) 14.6 3.7-10.4 [place] 848172-06-22 20:25:00 Test Item Value Reference Range Interpretation Comments RBC X 10x6 (test code = RBC X 10x6) 4.77 4.70-6.10 [place] 848172-06-22 20:25:00 Test Item Value Reference Range Interpretation Comments Hgb (test code = Hgb) 14.6 14.0-18.0 [place] 848172-06-22 20:25:00 Test Item Value Reference Range Interpretation Comments Hct (test code = Hct) 44.7 42.0-54.0 [place] 848172-06-22 20:25:00 Test Item Value Reference Range Interpretation Comments MCV (test code = MCV) 93.6 80.0-94.0 [place] [address]-06-22 20:25:00 Test Item Value Reference Range Interpretation Comments MCH (test code = MCH) 30.7 pg 27.0-31.0 [place] 848172-06-22 20:25:00 Test Item Value Reference Range Interpretation Comments MCHC (test code = MCHC) 32.8 32.0-36.0 [place] 848172-06-22 20:25:00 Test Item Value Reference Range Interpretation Comments RDW (test code = RDW) 13.7 11.5-14.5 [place] 848172-06-22 20:25:00 Test Item Value Reference Range Interpretation Comments Platelet (test code = Platelet) 244 448-450 [place] 848172-06-22 20:25:00 Test Item Value Reference Range Interpretation Comments MPV (test code = MPV) 9.1 7.4-10.4 [place] 826522-06-22 20:25:00 Test Item Value Reference Range Interpretation Comments Glucose Lvl (test code = Glucose Lvl) 106 70-99 [place] 826522-06-22 20:25:00 Test Item Value Reference Range Interpretation Comments BUN (test code = BUN) 27 7-22 [place] 826522-06-22 20:25:00 Test Item Value Reference Range Interpretation Comments Creatinine Lvl (test code = Creatinine 1.17 0.50-1.40 Lvl) [place] 826522-06-22 20:25:00 Test Item Value Reference Range Interpretation Comments Sodium Lvl (test code = Sodium Lvl) 139 135-145 [place] 826522-06-22 20:25:00 Test Item Value Reference Range Interpretation Comments Potassium Lvl (test code = Potassium 4.2 3.5-5.1 Lvl) [place] 826522-06-22 20:25:00 Test Item Value Reference Range Interpretation Comments Chloride Lvl (test code = Chloride Lvl) 106 95-109 [place] 826522-06-22 20:25:00 Test Item Value Reference Range Interpretation Comments CO2 (test code = CO2) 26 24-32 [place] 826522-06-22 20:25:00 Test Item Value Reference Range Interpretation Comments Calcium Lvl (test code = Calcium Lvl) 9.7 8.5-10.5 [facility] [id number] 20:25:00 Test Item Value Reference Range Interpretation Comments Total Protein (test code = Total 8.1 6.4-8.4 Protein) [facility] [id number] 20:25:00 Test Item Value Reference Range Interpretation Comments Albumin Lvl (test code = Albumin Lvl) 4.4 3.5-5.0 [facility] [id number] 20:25:00 Test Item Value Reference Range Interpretation Comments ALANINE AMINOTRANSFERASE 27 See_Comment [A utomated message] (test code = ALANINE The sys tem which AMINOTRANSFERASE) generated this result transmitted ref erence range: <=65. Th e reference range was not used to int erpret this result as normal/abnormal . [facility] [id number] 20:25:00 Test Item Value Reference Range Interpretation Comments AST (test code = AST) 17 See_Comment [Auto mated message] The system which ge nerated this result transmit suze reference range : <=37. The reference range was not used to interpr et this result as anselmo l/abnormal. [facility] [employer] [id number] 20:25:00 Test Item Value Reference Range Interpretation Comments Alk Phos (test code = Alk Phos) 78 39-136 [facility] [employer] [id number] 20:25:00 Test Item Value Reference Range Interpretation Comments Bili Total (test code = Bili Total) 0.9 0.2-1.3 [facility] [id number] 20:25:00 Test Item Value Reference Range Interpretation Comments AGAP (test code = AGAP) 11.2 10.0-20.0 [facility] [employer] [id number] 20:25:00 Test Item Value Reference Range Interpretation Comments B/C Ratio (test code = B/C Ratio) 23 1 6-25 [facility] [id number] 20:25:00 Test Item Value Reference Range Interpretation Comments Globulin (test code = Globulin) 3.7 2.7-4.2 [facility] [employer] [id number] 20:25:00 Test Item Value Reference Range Interpretation Comments A/G Ratio (test code = A/G Ratio) 1.2 1 0.7-1.6 [facility]2022-06-22 20:25:00 Test Item Value Reference Range Interpretation Comments eGFR (test code = eGFR) 75 [place] 848172-06-22 20:25:00 Test Item Value Reference Range Interpretation Comments Segs (test code = Segs) 77.6 45.0-75.0 [place] 848172-06-22 20:25:00 Test Item Value Reference Range Interpretation Comments Lymphocytes (test code = Lymphocytes) 14.9 20.0-40.0 [place] [address]-06-22 20:25:00 Test Item Value Reference Range Interpretation Comments Monocytes (test code = Monocytes) 7.0 2.0-12.0 [place] 848172-06-22 20:25:00 Test Item Value Reference Range Interpretation Comments Eosinophils (test code = 0.1 See_Comment [A utomated message] The Eosinophils) system which ge nerated this result tra nsmitted reference range : <=4.0. The reference r peri was not used to int erpret this result as normal/abnormal . [place] [address]-06-22 20:25:00 Test Item Value Reference Range Interpretation Comments Basophils (test code = 0.4 See_Comment [Aut omated message] The Basophils) system which ge nerated this result tra nsmitted reference range : <=1.0. The reference r peri was not used to int erpret this result as normal/abnormal . [place] 848172-06-22 20:25:00 Test Item Value Reference Range Interpretation Comments Neutrophils # (test code = Neutrophils 11.3 1.5-8.1 #) [place] [address]-06-22 20:25:00 Test Item Value Reference Range Interpretation Comments Lymphocytes # (test code = Lymphocytes 2.2 1.0-5.5 #) [place] [address]-06-22 20:25:00 Test Item Value Reference Range Interpretation Comments Monocytes # (test code 1.0 See_Comment [Aut omated message] The = Monocytes #) system which generated this result tra nsmitted reference range : <=0.8. The reference r peri was not used to int erpret this result as normal/abnormal . [id number]:25:00 Test Item Value Reference Range Interpretation Comments Basophils # (test code 0.1 See_Comment [Aut omated message] The = Basophils #) system which generated this result tra nsmitted reference range : <=0.2. The reference r peri was not used to int erpret this result as normal/abnormal . [facility] H[id number] 20:25:00 Test Item Value Reference Range Interpretation Comments WBC X 10x3 (test code = WBC X 10x3) 14.6 3.7-10.4 [facility] [id number] 20:25:00 Test Item Value Reference Range Interpretation Comments RBC X 10x6 (test code = RBC X 10x6) 4.77 4.70-6.10 [facility] HospitalQyoqciiEXRRBOQRNQ7414-12-43 20:25:00 Test Item Value Reference Range Interpretation Comments Hgb (test code = Hgb) 14.6 14.0-18.0 [place] 848172-06-22 20:25:00 Test Item Value Reference Range Interpretation Comments Hct (test code = Hct) 44.7 42.0-54.0 [facility] Hospit[id number] 20:25:00 Test Item Value Reference Range Interpretation Comments MCV (test code = MCV) 93.6 80.0-94.0 [facility] HospitalIfhbmsoASOIFUICME9982-06-86 20:25:00 Test Item Value Reference Range Interpretation Comments MCH (test code = MCH) 30.7 pg 27.0-31.0 [facility] HospitalIffpmwtZQQTIFBZPS8821-72-91 20:25:00 Test Item Value Reference Range Interpretation Comments MCHC (test code = MCHC) 32.8 32.0-36.0 [place] 848172-06-22 20:25:00 Test Item Value Reference Range Interpretation Comments RDW (test code = RDW) 13.7 11.5-14.5 [place] 848172-06-22 20:25:00 Test Item Value Reference Range Interpretation Comments Platelet (test code = Platelet) 244 133-450 [place] 848172-06-22 20:25:00 Test Item Value Reference Range Interpretation Comments MPV (test code = MPV) 9.1 7.4-10.4 [place] 826522-06-22 20:25:00 Test Item Value Reference Range Interpretation Comments Glucose Lvl (test code = Glucose Lvl) 106 70-99 [place] 826522-06-22 20:25:00 Test Item Value Reference Range Interpretation Comments BUN (test code = BUN) 27 7-22 [place] 826522-06-22 20:25:00 Test Item Value Reference Range Interpretation Comments Creatinine Lvl (test code = Creatinine 1.17 0.50-1.40 Lvl) [place] 826522-06-22 20:25:00 Test Item Value Reference Range Interpretation Comments Sodium Lvl (test code = Sodium Lvl) 139 135-145 [place] 826522-06-22 20:25:00 Test Item Value Reference Range Interpretation Comments Potassium Lvl (test code = Potassium 4.2 3.5-5.1 Lvl) [place] 826522-06-22 20:25:00 Test Item Value Reference Range Interpretation Comments Chloride Lvl (test code = Chloride Lvl) 106 95-109 [place] 826522-06-22 20:25:00 Test Item Value Reference Range Interpretation Comments CO2 (test code = CO2) 26 24-32 [place] 826522-06-22 20:25:00 Test Item Value Reference Range Interpretation Comments Calcium Lvl (test code = Calcium Lvl) 9.7 8.5-10.5 [place] 826522-06-22 20:25:00 Test Item Value Reference Range Interpretation Comments Total Protein (test code = Total 8.1 6.4-8.4 Protein) [place] 826522-06-22 20:25:00 Test Item Value Reference Range Interpretation Comments Albumin Lvl (test code = Albumin Lvl) 4.4 3.5-5.0 [place] 826522-06-22 20:25:00 Test Item Value Reference Range Interpretation Comments ALANINE AMINOTRANSFERASE 27 See_Comment [A utomated message] (test code = ALANINE The sys tem which AMINOTRANSFERASE) generated this result transmitted ref erence range: <=65. Th e reference range was not used to int erpret this result as normal/abnormal . [facility] [id number] 20:25:00 Test Item Value Reference Range Interpretation Comments AST (test code = AST) 17 See_Comment [Auto mated message] The system which ge nerated this result transmit suze reference range : <=37. The reference range was not used to interpr et this result as anselmo l/abnormal. [facility] [id number] 20:25:00 Test Item Value Reference Range Interpretation Comments Alk Phos (test code = Alk Phos) 78 39-136 [facility] [id number] 20:25:00 Test Item Value Reference Range Interpretation Comments Bili Total (test code = Bili Total) 0.9 0.2-1.3 [place] 826522-06-22 20:25:00 Test Item Value Reference Range Interpretation Comments AGAP (test code = AGAP) 11.2 10.0-20.0 [place] 826522-06-22 20:25:00 Test Item Value Reference Range Interpretation Comments B/C Ratio (test code = B/C Ratio) 23 1 6-25 [facility] [id number] 20:25:00 Test Item Value Reference Range Interpretation Comments Globulin (test code = Globulin) 3.7 2.7-4.2 [facility] [id number] 20:25:00 Test Item Value Reference Range Interpretation Comments A/G Ratio (test code = A/G Ratio) 1.2 1 0.7-1.6 [place] 826522-06-22 20:25:00 Test Item Value Reference Range Interpretation Comments eGFR (test code = eGFR) 75 [place] 848172-06-22 20:25:00 Test Item Value Reference Range Interpretation Comments Segs (test code = Segs) 77.6 45.0-75.0 [place] 848172-06-22 20:25:00 Test Item Value Reference Range Interpretation Comments Lymphocytes (test code = Lymphocytes) 14.9 20.0-40.0 [place] 848172-06-22 20:25:00 Test Item Value Reference Range Interpretation Comments Monocytes (test code = Monocytes) 7.0 2.0-12.0 [facility]wufacqEFZWYNERHX0221-43-88 20:25:00 Test Item Value Reference Range Interpretation Comments Eosinophils (test code = 0.1 See_Comment [A utomated message] The Eosinophils) system which ge nerated this result tra nsmitted reference range : <=4.0. The reference r peri was not used to int erpret this result as normal/abnormal . [place] 848172-06-22 20:25:00 Test Item Value Reference Range Interpretation Comments Basophils (test code = 0.4 See_Comment [Aut omated message] The Basophils) system which ge nerated this result tra nsmitted reference range : <=1.0. The reference r peri was not used to int erpret this result as normal/abnormal . [place] 848172-06-22 20:25:00 Test Item Value Reference Range Interpretation Comments Neutrophils # (test code = Neutrophils 11.3 1.5-8.1 #) [place] 848172-06-22 20:25:00 Test Item Value Reference Range Interpretation Comments Lymphocytes # (test code = Lymphocytes 2.2 1.0-5.5 #) [place] 848172-06-22 20:25:00 Test Item Value Reference Range Interpretation Comments Monocytes # (test code 1.0 See_Comment [Aut omated message] The = Monocytes #) system which generated this result tra nsmitted reference range : <=0.8. The reference r peri was not used to int erpret this result as normal/abnormal . [place] 848172-06-22 20:25:00 Test Item Value Reference Range Interpretation Comments Basophils # (test code 0.1 See_Comment [Aut omated message] The = Basophils #) system which generated this result tra nsmitted reference range : <=0.2. The reference r peri was not used to int erpret this result as normal/abnormal . [place] 848172-06-22 20:25:00 Test Item Value Reference Range Interpretation Comments WBC X 10x3 (test code = WBC X 10x3) 14.6 3.7-10.4 [place] 848172-06-22 20:25:00 Test Item Value Reference Range Interpretation Comments RBC X 10x6 (test code = RBC X 10x6) 4.77 4.70-6.10 [place] 848172-06-22 20:25:00 Test Item Value Reference Range Interpretation Comments Hgb (test code = Hgb) 14.6 14.0-18.0 [place] [address]-06-22 20:25:00 Test Item Value Reference Range Interpretation Comments Hct (test code = Hct) 44.7 42.0-54.0 [place] [address]-06-22 20:25:00 Test Item Value Reference Range Interpretation Comments MCV (test code = MCV) 93.6 80.0-94.0 [place] [address]-06-22 20:25:00 Test Item Value Reference Range Interpretation Comments MCH (test code = MCH) 30.7 pg 27.0-31.0 [place] [address]-06-22 20:25:00 Test Item Value Reference Range Interpretation Comments MCHC (test code = MCHC) 32.8 32.0-36.0 [place] [address]-06-22 20:25:00 Test Item Value Reference Range Interpretation Comments RDW (test code = RDW) 13.7 11.5-14.5 [place] 848172-06-22 20:25:00 Test Item Value Reference Range Interpretation Comments Platelet (test code = Platelet) 244 133-450 [place] 848172-06-22 20:25:00 Test Item Value Reference Range Interpretation Comments MPV (test code = MPV) 9.1 7.4-10.4 [place] 826522-06-22 20:25:00 Test Item Value Reference Range Interpretation Comments Glucose Lvl (test code = Glucose Lvl) 106 70-99 [place] 826522-06-22 20:25:00 Test Item Value Reference Range Interpretation Comments BUN (test code = BUN) 27 7-22 [place] 826522-06-22 20:25:00 Test Item Value Reference Range Interpretation Comments Creatinine Lvl (test code = Creatinine 1.17 0.50-1.40 Lvl) [place] 826522-06-22 20:25:00 Test Item Value Reference Range Interpretation Comments Sodium Lvl (test code = Sodium Lvl) 139 135-145 [place] 826522-06-22 20:25:00 Test Item Value Reference Range Interpretation Comments Potassium Lvl (test code = Potassium 4.2 3.5-5.1 Lvl) [place] 826522-06-22 20:25:00 Test Item Value Reference Range Interpretation Comments Chloride Lvl (test code = Chloride Lvl) 106 95-109 [facility] [employer] [id number] 20:25:00 Test Item Value Reference Range Interpretation Comments CO2 (test code = CO2) 26 24-32 [facility] [employer] [id number] 20:25:00 Test Item Value Reference Range Interpretation Comments Calcium Lvl (test code = Calcium Lvl) 9.7 8.5-10.5 [facility] [employer] [id number] 20:25:00 Test Item Value Reference Range Interpretation Comments Total Protein (test code = Total 8.1 6.4-8.4 Protein) [facility] [employer] [id number] 20:25:00 Test Item Value Reference Range Interpretation Comments Albumin Lvl (test code = Albumin Lvl) 4.4 3.5-5.0 [facility] [employer] [id number] 20:25:00 Test Item Value Reference Range Interpretation Comments ALANINE AMINOTRANSFERASE 27 See_Comment [A utomated message] (test code = ALANINE The sys tem which AMINOTRANSFERASE) generated this result transmitted ref erence range: <=65. Th e reference range was not used to int erpret this result as normal/abnormal . [facility] [employer] [id number] 20:25:00 Test Item Value Reference Range Interpretation Comments AST (test code = AST) 17 See_Comment [Auto mated message] The system which ge nerated this result transmit szue reference range : <=37. The reference range was not used to interpr et this result as anselmo l/abnormal. [facility] [employer] [id number] 20:25:00 Test Item Value Reference Range Interpretation Comments Alk Phos (test code = Alk Phos) 78 39-136 [facility] [employer] [id number] 20:25:00 Test Item Value Reference Range Interpretation Comments Bili Total (test code = Bili Total) 0.9 0.2-1.3 [facility] [employer] [id number] 20:25:00 Test Item Value Reference Range Interpretation Comments AGAP (test code = AGAP) 11.2 10.0-20.0 [facility] [Presence] in Respiratory specimen by CAMERON with probe [id number] 09:13:38 Test Item Value Reference Range Interpretation Comments SARS-CoV-2 (COVID-19) RNA Not detected [Presence] in Respiratory specimen by CAMERON with probe detection (test code = 53763-7) Whether patient is employed in a Unknown healthcare setting (test code = 21299-9) Whether the patient has symptoms Unknown related to condition of interest (test code = 99673-7) Whether the patient was Unknown hospitalized for condition of interest (test code = 21199-7) Whether the patient was admitted Unknown to intensive care unit (ICU) for condition of interest (test code = 47322-9) Whether patient resides in a Unknown congregate care setting (test code = 08883-9) status (test code = Unknown 18886-4) Date and time of symptom onset Unknown (test code = 50274-8) [facility] 08:15:00 Test Item Value Reference Range Interpretation Comments ALCOHOL (test code < 3 mg/dL 0.0-3.0 N --------- --------INTERPRE = ALC) TIVE DATA NOTE: POSITIVE SCREEN ING RESULTS SHOULD BE CONSIDERED PRESUMPTIVE.WHE N COLLECTED FOR M EDICAL PURPOSES ONLY. SPECIMEN WILL NOTBE YONY ECTED BY CHAIN OF CUSTOD Y.IF A CONFIRMATION OF POSITIVE RESULTS IS HOWARD RED, ACONFIRMATION T EST MUST BE REQUESTED BY THE PHYSICIAN AT AN ADDITIONAL CHARGE TO THE P ATIENT. BASIC METABOLIC [id number] 07:12:00 Test Item Value Reference Range Interpretation Comments SODIUM (test code = 140 mmol/L 136-145 N NA) POTASSIUM (test code 4.0 mmol/L 3.5-5.1 N = K) CHLORIDE (test code 110.0 mmol/L 98-107 H = CL) CARBON DIOXIDE (test 24.0 mmol/L 21-32 N code = CO2) ANION GAP (test code 10.0 10-20 N = GAP) GLUCOSE (test code = 109 mg/dL 74-106 H GLU) BLOOD UREA NITROGEN 23 mg/dL 7-18 H (test code = BUN) GLOMERULAR > 60 mL/min See_Comment Estimated GFR b y FILTRATION RATE using Modifi ed MDRD (test code = GFR) formula. ron kidney disease is defined as eith er kidney damageor GFR <60 mL/min/1.73 m2 for >3 months. [Automated mess age] The system [employer] generated this result transmitted ref erence range: >=60. Th e reference range was not used to int erpret this result as normal/abnormal . CREATININE (test 0.90 mg/dL 0.7-1.3 N code = CREAT) BUN/CREATININE RATIO 24.5 10-20 H (test code = BUN/CREA) CALCIUM (test code = 9.3 mg/dL 8.5-10.1 N CA) HEPATIC FUNCTION [id number] 07:12:00 Test Item Value Reference Range Interpretation Comments TOTAL PROTEIN (test 6.7 gram/dL 6.4-8.2 N code = PROT) ALBUMIN (test code = 4.0 g/dL 3.4-5.0 N ALB) GLOBULIN (test code = 2.7 gram/dL 2.7-4.2 N GLOB) ALBUMIN/GLOBULIN RATIO 1.5 0.75-1.50 N (test code = A/G) BILIRUBIN TOTAL (test 0.60 mg/dL 0.0-1.0 N code = BILT) BILIRUBIN DIRECT (test 0.20 mg/dL 0.0-0.20 N code = BILD) SGOT/AST (test code = 18 IUnit/L 15-37 N AST) SGPT/ALT (test code = 19 IUnit/L 12-78 N ALT) ALKALINE PHOSPHATASE 72 IUnit/L 45-117 N Note change in TOTAL (test code = reference range due ALKP) to change in reagent. [id number] 07:12:00 Test Item Value Reference Range Interpretation Comments LIPASE (test code = LIP) 32 U/L 12-57 N CBC W/O [id number] 07:03:00 Test Item Value Reference Range Interpretation Comments WHITE BLOOD CELL (test code = 8.9 K/mm3 4.5-12.5 N WBC) RED BLOOD CELL (test code = 4.84 mill/mm3 4.0-5.8 N RBC) HEMOGLOBIN (test code = HGB) 15.4 gram/dL 13.0-17.5 N HEMATOCRIT (test code = HCT) 44.4 % 42.0-52.0 N MEAN CELL VOLUME (test code = 91.7 fL 80-98 N MCV) MEAN CELL HGB (test code = MCH) 31.8 picogram 27.0-33.0 N MEAN CELL HGB CONCETRATION 34.7 gram/dL 33.0-36.0 N (test code = MCHC) RED CELL DISTRIBUTION WIDTH 12.5 % 11.6-16.2 N (test code = RDW) PLATELET COUNT (test code = 280 K/mm3 150-450 N PLT) MEAN PLATELET VOLUME (test code 10.4 fL 6.7-11.0 N = MPV) XR HIP COMP 2-3 [id number] 16:21:23 [facility]/)Name: EWA TREJO : 1975 Sex: MProcedure: XR HIP COMP 2-3 viewsOrder Date: 09/30/2021 3:31 PMOrdering Provider: SHIELA Morelos Indication: [id number]: Pain in right hip jointComparison: CT pelvis August 19, 2021FINDINGS:No acute fracture.Lateral subluxation of the right femur in relation to the acetabulum withoutdislocation.Severe osteoarthrosis of the right hip.Visualized portions of the right hemipelvis are normal.There is no lytic or sclerotic lesion.No suspicious calcifications.Impression:1. Severe osteoarthrosis of the right hip.2. There is lateral subluxation of the right femur without dislocation.3. No acute fracture.4. No other significant findings.This final report was electronically signed by Dr Octavio Hopson MD 24:16 PMDictated By: OCTAVIO HOPSONDate: 09/30/2021 16:16STLMLXR CHEST 2 PA [id number] 16:18:39 [facility]Name: EWA TREJO : 1975 Sex: MProcedure: XR CHEST 2 PA LATERALOrder Date: 09/30/2021 3:32 PMOrdering Provider: SHIELA Morelos Indication: [id number]: Post-acute covid-19Comparison: NoneFindings:Cardiac size is normal.Pulmonary vasculature is normal.Mediastinal contour is normal.Aortic contour is normal.There are no infiltrates or effusions.There is no mass or pneumothorax.There is no evidence of active tuberculosis.There is no skeletal abnormality.Impression: Negative PA and lateral views of the chest.This final report was electronically signed by Dr Octavio Hopson MD 24:12 PMDictated By: OCTAVIO HOPSONDate: 09/30/2021 16:12STLMLSTAT LAB CHEM [id number] 13:54:00 Test Item Value Reference Range Interpretation Comments Sodium (test code = NA) 137 mmol/l 138-146 L Potassium (test code = K) 4.6 mmol/l 3.5-4.9 IONIZED CALCIUM (test code = ICA) 1.21 1.12-1.32 AA Chloride (test code = CL) 105 mmol/l 98-109 Glucose (test code = GLU) 92 mg/dl 70-105 Creatinine (test code = CREA) 1.2 mg/dl 0.6-1.3 BUN (test code = BUN) 30 mg/dl 6-17 H CO2 (test code = CO2) 23.1 mmol/l 24.0-29.0 L STLSTAT LAB URINALYSIS WITHOUT [id number] 13:53:00 Test Item Value Reference Range Interpretation Comments Color (test code = Yellow Lt. Yellow A UCOLR) Clarity (test code = Clear UCLAR) Glucose (test code = Negative Negative N UGLUC) Bilirubin (test code = Negative Negative N UBILI) Ketones (test code = Negative Negative N UKET) Specific [place] (test >=1.030 1.005-1.030 A code = USPGR) Blood (test code = Moderate Negative A UBLD) PH (test code = UPH) 6.0 4.5-8.0 A Protein (test code = Negative Negative N UPROT) Urobilinogen (test code 0.2 See_Comment N [Au tomated message] = U UROB) The system [employer]Point generated this result transmitted ref erence range: 0.2. The reference range was not used to int erpret this result as normal/abnormal . Nitrite (test code = Negative Negative N UNITR) Leukocyte Esterase Negative Negative N (test code = ULEUK) [facility] WITH AUTO [id number] 13:53:00 Test Item Value Reference Range Interpretation Comments WBC (test code = WBC) 7.43 10\\S\\3/ul 4.80-10.80 RBC (test code = RBC) 4.61 10\\S\\6/ul 4.70-6.10 L Hemoglobin (test code = HGB) 14.2 gm/dl 14.0-18.0 Hematocrit (test code = HCT) 43.1 % 42.0-50.0 MCV (test code = MCV) 93.5 fL 80.0-94.0 MCH (test code = MCH) 30.8 pg 27.0-31.0 MCHC (test code = MCHC) 32.9 gm/dl 33.0-37.0 L Platelet (test code = PLT) 225 10\\S\\3/ul 130-400 RDW (test code = RDWVC) 12.3 % 11.5-14.5 MPV (test code = MPV) 10.4 fL 7.4-10.4 A NE% (test code = NE) 60.8 % 42.0-75.0 LY% (test code = LY) 30.0 % 13.0-42.0 MO% (test code = MO) 6.3 % 4.0-14.0 EO% (test code = EO) 2.4 % 1.0-3.0 BA% (test code = BA) 0.5 % 1.0-3.0 L IG% (test code = IG%) 0.0 % 0.0-0.4 STLMLCULTURE, [id number] 07:56:00Specimen: Urine SpecimensCollected: 08/19/2021 07:43 Status: Final Last Updated: 08/21/2021 07:56 CULTURE (Final) (Final) No Growth After 48 HoursSTLMLCT ABD/ PELVIS W/O CON ([facility]) 2021-08-19 09:41:00 [facility]/[place])Name: EWA TREJO : 1975 Sex: MProcedure: CT ABD/ PELVIS W/O CON (RE[facility])Order Date: 08/19/2021 8:46 AMOrdering Provider: SHIELA Chowdhuryinical Indication: -right flank painComparison: NoneTECHNIQUE: Using a helical scanner,sequential axial imaging of the abdomen andpelvis was obtained without the administration of intravenous or oral contrast.The exam was obtained from the superior aspect of each kidney through the pubicsymphysis. 2-D sagittal and coronal reconstructions were obtained. This examwas performed according to the departmental dose-optimization program whichincludes automated exposure control, adjustment of the mA and/or kV according topatient size and/or use of iterative reconstruction techniques.Findings:The right kidney is normal in size and shape.There are no calculi.There is no hydronephrosis.There are no masses.The left kidney is normal in size and shape.There are no calculi.There is no hydronephrosis.There are no masses.The urinary bladder has a normal appearance.There are no inflammatory changes in the abdomen or pelvis.Calcified plaque in the abdominal aorta, splenic artery common iliac arteriesbilaterally. No aneurysm.Moderate retained stool within the colon without bowel obstruction.Normal appendix.Osteoarthrosis of each hip which is severe on the right.Impression:1. No urinary tract calculi or hydronephrosis.2. Constipation without bowel obstruction.3. Normal appendix.4. Severe osteoarthrosis of the right hip.5. No other significant findings.This final report was electronically signed byDr Octavio Hopson MD :35 AMDictated By: OCTAVIO HOPSON.Date: 08/19/2021 09:35STLMLURINALYSIS WITH [id number] 08:18:00 Test Item Value Reference Range Interpretation Comments Color (test code = Light-Yellow UCOLR) Clarity (test code = Clear UCLAR) Glucose (test code = NEGATIVE NEGATIVE N UGLUC) Bilirubin (test code NEGATIVE NEGATIVE N = UBILI) Ketones (test code = NEGATIVE NEGATIVE N UKET) Specific [place] 1.015 1.005-1.030 A (test code = USPGR) Blood (test code = Small NEGATIVE A UBLD) PH (test code = UPH) 7.5 4.5-8.0 A Protein (test code = NEGATIVE NEGATIVE N UPROT) Urobilinogen (test 0.2 See_Comment N [Automat ed message] code = U UROB) The system [facility] generated this result transmit suze reference range : 0.2. The refere nce range was not u sed to interpret th is result as normal/abnormal . Nitrite (test code = NEGATIVE NEGATIVE N UNITR) Leukocyte Esterase NEGATIVE NEGATIVE N (test code = ULEUK) RBC (test code = 11-20 0-5 A RBCUR) WBC (test code = 0-1 0-5 A WBCUR) Bacteria (test code = 1+ None Seen,Trace A UBACT) Budding Yeast (test RARE NONE SEEN A code = BYST) Mucous (test code = TRACE None Seen A UMUC) Squamous Epithelial None Seen 0-10 A (test code = SQEP) STLMLURINALYSIS WITH [id number] 17:24:00 Test Item Value Reference Range Interpretation Comments Color (test code = Colorless UCOLR) Clarity (test code = Clear UCLAR) Glucose (test code = NEGATIVE NEGATIVE N UGLUC) Bilirubin (test code = NEGATIVE NEGATIVE N UBILI) Ketones (test code = NEGATIVE NEGATIVE N UKET) Specific [place] (test <1.005 1.005-1.030 A code = USPGR) Blood (test code = TRACE NEGATIVE A UBLD) PH (test code = UPH) 6.0 4.5-8.0 A Protein (test code = NEGATIVE NEGATIVE N UPROT) Urobilinogen (test code 0.2 See_Comment N [Au tomated message] = U UROB) The system [employer] generated this result transmitted ref erence range: 0.2. The reference range was not used to int erpret this result as normal/abnormal . Nitrite (test code = NEGATIVE NEGATIVE N UNITR) Leukocyte Esterase NEGATIVE NEGATIVE N (test code = ULEUK) RBC (test code = RBCUR) 0-1 0-5 A Bacteria (test code = TRACE None Seen,Trace A UBACT) Squamous Epithelial None Seen 0-10 A (test code = SQEP) STLMLSTAT LAB URINALYSIS WITHOUT [id number] 15:43:00 Test Item Value Reference Range Interpretation Comments Color (test code = Yellow Lt. Yellow A UCOLR) Clarity (test code = Clear UCLAR) Glucose (test code = Negative Negative N UGLUC) Bilirubin (test code = Negative Negative N UBILI) Ketones (test code = Negative Negative N UKET) Specific [place] (test <=1.005 1.005-1.030 A code = USPGR) Blood (test code = Small Negative A UBLD) PH (test code = UPH) 6.0 4.5-8.0 A Protein (test code = Negative Negative N UPROT) Urobilinogen (test code 0.2 See_Comment N [Au tomated message] = U UROB) The system [employer] generated this result transmitted ref erence range: 0.2. The reference range was not used to int erpret this result as normal/abnormal . Nitrite (test code = Negative Negative N UNITR) Leukocyte Esterase Negative Negative N (test code = ULEUK) [id number] 20:31:00 Test Item Value Reference Range Interpretation Comments LIPASE (test code = LIP) 46 U/L 12-57 N COVID 19 INHOUSE [id number] 17:33:00 Test Item Value Reference Range Interpretation Comments COVID 19 INHOUSE AG (test code = NEGATIVE NEGATIVE [id number]) BASIC METABOLIC [id number] 17:18:00 Test Item Value Reference Range Interpretation Comments SODIUM (test code = 139 mmol/L 136-145 N NA) POTASSIUM (test code 3.7 mmol/L 3.5-5.1 N = K) CHLORIDE (test code 106.0 mmol/L 98-107 N = CL) CARBON DIOXIDE (test 28.0 mmol/L 21-32 N code = CO2) ANION GAP (test code 8.7 10-20 L = GAP) GLUCOSE (test code = 96 mg/dL 74-106 N GLU) BLOOD UREA NITROGEN 13 mg/dL 7-18 N (test code = BUN) GLOMERULAR > 60 mL/min See_Comment Estimated GFR b y FILTRATION RATE using Modifi ed MDRD (test code = GFR) formula. ronic kidney disease is defined as eith er kidney damageor GFR <60 mL/min/1.73 m2 for >3 months. [Automated mess age] The system [employer]Point generated this result transmitted ref erence range: >=60. Th e reference range was not used to int erpret this result as normal/abnormal . CREATININE (test 0.80 mg/dL 0.7-1.3 N code = CREAT) BUN/CREATININE RATIO 15.9 10-20 N (test code = BUN/CREA) CALCIUM (test code = 8.9 mg/dL 8.5-10.1 N CA) HEPATIC FUNCTION [id number] 17:18:00 Test Item Value Reference Range Interpretation Comments TOTAL PROTEIN (test 5.7 gram/dL 6.4-8.2 L code = PROT) ALBUMIN (test code = 3.4 g/dL 3.4-5.0 N ALB) GLOBULIN (test code = 2.3 gram/dL 2.7-4.2 L GLOB) ALBUMIN/GLOBULIN RATIO 1.5 0.75-1.50 N (test code = A/G) BILIRUBIN TOTAL (test 0.50 mg/dL 0.0-1.0 N code = BILT) BILIRUBIN DIRECT (test 0.20 mg/dL 0.0-0.20 N code = BILD) SGOT/AST (test code = 17 IUnit/L 15-37 N AST) SGPT/ALT (test code = 14 IUnit/L 12-78 N ALT) ALKALINE PHOSPHATASE 98 IUnit/L 45-117 N Note change in TOTAL (test code = reference range due ALKP) to change in reagent. [id number] 17:18:00 Test Item Value Reference Range Interpretation Comments ACETAMINOPHEN (test code = ACET) < 0.2 mg/dL 1.0-3.0 L [id number] 17:18:00 Test Item Value Reference Range Interpretation Comments SALICYLATE (test code = SANTA) < 3.0 mg/dL 2.8-20.0 N [id number] 17:18:00 Test Item Value Reference Range Interpretation Comments ALCOHOL (test code = 7 mg/dL 0.0-3.0 H ------- INTERPRET ALC) BRANDY DATA NOTE: POSITIVE SCREEN ING RESULTS SHOULD BE CONSI DERED PRESUMPTIVE.WHE N COLLECTED FOR MEDICAL PUR POSES ONLY. SPECIMEN WILL N OTBE COLLECTED BY AIN OF CUSTODY.IF A CO NFIRMATION OF POSITIVE RES ULTS IS DESIRED, ACONFI RMATION TEST MUST BE RE QUESTED BY THE PHYSICIAN A T ANADDITIONAL CH ARGE TO THE PATIENT. CBC W/O [id number] 17:04:00 Test Item Value Reference Range Interpretation Comments WHITE BLOOD CELL (test code = 7.2 K/mm3 4.5-12.5 N WBC) RED BLOOD CELL (test code = 4.38 mill/mm3 4.0-5.8 N RBC) HEMOGLOBIN (test code = HGB) 13.0 gram/dL 13.0-17.5 N HEMATOCRIT (test code = HCT) 41.3 % 42.0-52.0 L MEAN CELL VOLUME (test code = 94.3 fL 80-98 N MCV) MEAN CELL HGB (test code = MCH) 29.7 picogram 27.0-33.0 N MEAN CELL HGB CONCETRATION 31.5 gram/dL 33.0-36.0 L (test code = MCHC) RED CELL DISTRIBUTION WIDTH 12.3 % 11.6-16.2 N (test code = RDW) PLATELET COUNT (test code = 216 K/mm3 150-450 N PLT) MEAN PLATELET VOLUME (test code 10.3 fL 6.7-11.0 N = MPV) CT Abdomen Pelvis Wo [id number] 13:46:45EXAMINATION: CT ABDOMEN PELVIS WO CONTRAST CLINICAL HISTORY:45 years Male Abdominal pain acute nonlocalized TECHNIQUE: Multiple axial images of the abdomen and pelvis were obtained in helical fashion without intravenous administration of iodinated contrast. Sagittal and coronal computerized reformatted images were also obtained. The lack of intravenous contrast reduces the sensitivity of detecting solid organ disease. CT imaging was performed with iterative reconstruction techniques and/or automatedexposure control to reduce radiation dose. Comparison: November 30, 2018. IMPRESSION: Lower Chest: Lung bases are clear. Abdomen: Liver: Normal in size and contour without discrete mass. Gallbladder/Biliary: Gallbladder is unremarkable. There is no biliary dilatation. Spleen: Normal in size.Pancreas: Unremarkable.Adrenal Glands: Unremarkable.Kidneys: Unremarkable.Vascular: The abdominal aorta is normal in caliber.Nodes: No regional adenopathy.Bowel: Normal appendix. Bowel is unobstructed. Stomach is distended although without obvious gastric outlet obstruction although evaluation is suboptimal in the absence of IV or oral contrast. Mild sigmoid diverticulosis, without evidence of acute diverticulitis.Ascites/fluid collections: None. Pelvis: Lymphovascular: No pelvic adenopathy. Reproductive organs: Unremarkable.Bladder: UnremarkableOther: None. Musculoskeletal: Severe degenerative change at the right hip. SUMMARY:1.No acute abnormality within the confines of nonenhanced study. [id number] Interface, Radiology Results 01/10/2021 8:49 AM CDT EXAMINATION: CT ABDOMEN PELVIS WO CONTRASTCLINICAL HISTORY:45 years Male Abdominal pain acute nonlocalizedTECHNIQUE: Multiple axial images of the abdomen and pelvis were obtained in helical fashion without intravenous administration of iodinated contrast. Sagittal and coronal computerized reformatted images were also obtained. The lack of intravenous contrast reduces the sensitivity of detecting solid organ disease. CT imaging was performed with iterative reconstruction techniques and/or automated exposure control to reduce radiation dose. Comparison: November 30, 2018.IMPRESSION:Lower Chest: Lung bases are clear. Abdomen: Liver: Normal in size and contour without discrete mass. Gallbladder/Biliary: Gallbladder is unremarkable. There is no biliary dilatation. Spleen: Normal in size.Pancreas: Unremarkable.Adrenal Glands: Unremarkable.Kidneys: Unremarkable.Vascular: The abdominal aorta is normal in caliber.Nodes: No regional adenopathy.Bowel: Normal appendix. Bowel is unobstructed. Stomach is distended although without obvious gastric outlet obstruction although evaluation is suboptimal in the absence of IV or oral contrast. Mild sigmoid diverticulosis, without evidence of acute diverticulitis.Ascites/fluid collections: None.Pelvis: Lymphovascular: No pelvic adenopathy. Reproductive o rgans: Unremarkable.Bladder: UnremarkableOther: None.Musculoskeletal: Severe degenerative change at the right hip. SUMMARY:1.No acute abnormality within the confines of nonenhanced study.[id number] 1 [id number] 13:00:44EXAMINATION: XR CHEST 1 PORTABLE CLINICAL HISTORY: SOB COMPARISON: November 21, 2020 chest IMPRESSION: Unremarkable single view chest The lungs are clear. The heart is not enlarged. No acute bony abnormality. [id number] Interface, Radiology Results 01/10/2021 8:03 AM CDT EXAMINATION: XR CHEST 1 PORTABLECLINICAL HISTORY: SOBCOMPARISON: November 21, 2020 chestIMPRESSION:Unremarkable single view chestThe lungs are clear.The heart is not enlarged.No acute bony abnormality.[id number] Preliminary Interpretation - Not an [id number] 12:11:30SCasey shin MD 01/10/2021 11:25 AMECG ED Preliminary Interpretation - Not an OrderPerformed by: Casey Danielson MDAuthorized by: Casey Sen MD ECG reviewed by ED Physician in the absence of a excel analyst: yes Interpretation: Interpretation: normal Rate: ECG rate: 83 ECG rate assessment:normal Rhythm: Rhythm: sinus rhythm Ectopy: Ectopy: none QRS: QRS axis: Normal QRS intervals: NormalC onduction: Conduction: normal ST segments: ST segments: NormalT waves: T waves: flattening Flattening: AVLBASIC METABOLIC [id number] 01:51:00 Test Item Value Reference Range Interpretation Comments SODIUM (test code = 138 mmol/L 136-145 N NA) POTASSIUM (test code 3.8 mmol/L 3.5-5.1 N = K) CHLORIDE (test code 106.0 mmol/L 98-107 N = CL) CARBON DIOXIDE (test 26.0 mmol/L 21-32 N code = CO2) ANION GAP (test code 9.8 10-20 L = GAP) GLUCOSE (test code = 95 mg/dL 74-106 N GLU) BLOOD UREA NITROGEN 13 mg/dL 7-18 N (test code = BUN) GLOMERULAR > 60 mL/min See_Comment Estimated GFR b y FILTRATION RATE using Modifi ed MDRD (test code = GFR) formula.Ch ronic kidney disease is defined as eith er kidney damageor GFR <60 mL/min/1.73 m2 for >3 months. [Automated mess age] The system RatePoint generated this result transmitted ref erence range: >=60. Th e reference range was not used to int erpret this result as normal/abnormal . CREATININE (test 0.90 mg/dL 0.7-1.3 N code = CREAT) BUN/CREATININE RATIO 14.6 10-20 N (test code = BUN/CREA) CALCIUM (test code = 8.4 mg/dL 8.5-10.1 L CA) CBC W/AUTO [id number] 01:18:00 Test Item Value Reference Range Interpretation Comments WHITE BLOOD CELL (test code = 10.1 K/mm3 4.5-12.5 N WBC) RED BLOOD CELL (test code = 4.76 mill/mm3 4.0-5.8 N RBC) HEMOGLOBIN (test code = HGB) 14.4 gram/dL 13.0-17.5 N HEMATOCRIT (test code = HCT) 44.5 % 42.0-52.0 N MEAN CELL VOLUME (test code = 93.5 fL 80-98 N MCV) MEAN CELL HGB (test code = MCH) 30.3 picogram 27.0-33.0 N MEAN CELL HGB CONCETRATION 32.4 gram/dL 33.0-36.0 L (test code = MCHC) RED CELL DISTRIBUTION WIDTH 12.2 % 11.6-16.2 N (test code = RDW) RED CELL DISTRIBUTION WIDTH SD 42.2 fL 37.0-51.0 N (test code = RDW-SD) PLATELET COUNT (test code = 293 K/mm3 150-450 N PLT) MEAN PLATELET VOLUME (test code 10.3 fL 6.7-11.0 N = MPV) NEUTROPHIL % (test code = NT%) 61.6 % 39.0-69.0 N IMMATURE GRANULOCYTE % (test 0.4 % 0.0-5.0 N code = IG%) LYMPHOCYTE % (test code = LY%) 26.8 % 25.0-55.0 N MONOCYTE % (test code = MO%) 8.0 % 0.0-10.0 N EOSINOPHIL % (test code = EO%) 2.8 % 0.0-5.0 N BASOPHIL % (test code = BA%) 0.4 % 0.0-1.0 N NUCLEATED RBC % (test code = 0.0 % 0-0 N NRBC%) NEUTROPHIL # (test code = NT#) 6.22 K/mm3 1.8-7.7 N IMMATURE GRANULOCYTE # (test 0.04 x10 3/uL 0-0.03 H code = IG#) LYMPHOCYTE # (test code = LY#) 2.70 K/mm3 1.0-5.0 N MONOCYTE # (test code = MO#) 0.81 K/mm3 0-0.8 H EOSINOPHIL # (test code = EO#) 0.28 K/mm3 0.0-0.5 N BASOPHIL # (test code = BA#) 0.04 K/mm3 0.0-0.2 N NUCLEATED RBC # (test code = 0.00 K/mm3 0.0-0.1 N NRBC#) MANUAL DIFF REQUIRED (test code NO = MDIFF) - XR CHEST 1 [id number] 22:23:00 [facility])Name: EWA TREJO : 1975 Sex: M FAX: Martin Mckeon MD [phone] [place]: St: REG Name: EWA TREJO [facility] : 1975 Age/S: 45/M [address] [facility] Unit #: [id number] Loc: [place] [address] Phys: Martin Mckeon MD Acct: [id number] Dis Date: Status: REG ER PHONE #: [phone] Exam Date: 01/04/20212206 FAX #: [phone] Reason: concern for pna EXAMS: CPT CODE: [id number] XR CHEST 1 V [id number] EXAM: - XR CHEST 1 V COMPARISON: None LOCATION: 7 HISTORY: 45 years-old Male with concern for pna TECHNIQUE: Single AP view of the chest. FINDINGS: The cardiomediastinal silhouette is within normal limits. The lungs are well aerated. No large pneumothorax or pleural effusion. Osseous structures and soft tissues demonstrate no acute findings. The visualized upper abdomen is unremarkable. IMPRESSION: No acute cardiopulmonary abnormality. at 2223 Reported and signed by: Alexander [place] M.D. CC: Martin Mckeon MD Technologist: NICOLASA Riley Date/Time/By: 01/04/2021 (3) : By: [email or web address] Orig Print D/T: S: 01/04/2021 (3677) PAGE 1Signed ReportECG 12 [id number] 17:57:20 Test Item Value Reference Range Interpretation Comments Ventricular rate (test code = 253) Atrial rate (test code = 255) DC interval (test code = 266) QRSD interval (test code = 260) QT interval (test code = 264) QTC interval (test code = 265) P axis 1 (test code = 267) QRS axis 1 (test code = 268) T wave axis (test code = 270) EKG impression (test Normal sinus code = 273) rhythm-Right atrial enlargement-In automated comparison with ECG of 23-DEC-2020 23:57,-No significant change was found- [facility] Count Auto [id number] 11:22:00 Test Item Value Reference Range Interpretation Comments White Blood Count (test code = 7.5 x10 3/uL 4.4-10.5 N WBCT) Red Blood Count (test code = 4.91 x10 6/uL 4.10-5.70 N RBC) Hemoglobin (test code = HGBT) 15.0 g/dL 13.4-17.4 N Hematocrit (test code = HCTT) 45.8 % 38.7-52.0 N Mean Corpuscular Volume (test 93.30 fL 80.00-100.00 N code = MCV) Mean Corpuscular Hemoglobin 30.5 pg 27.0-32.5 N (test code = MCH) Mean Corpuscular HGB Conc 32.80 g/dL 32.00-37.50 N (test code = MCHC) RDW Coefficient of Variation 11.8 % 11.5-14.5 N (test code = RDWCV) Platelet Count (test code = 253.0 x10 3/uL 140.0-440.0 N PLTT) Mean Platelet Volume (test 10.4 fL code = MPV) Immature Granulocytes % (Auto) 0.4 % 0.0-5.0 N (test code = IMMGRAN%) Neutrophils % (Auto) (test 69.7 % 36.0-70.0 N code = NE%) Lymphocytes % (Auto) (test 23.1 % 12.0-44.0 N code = LY%) Monocytes % (Auto) (test code 5.2 % 0.0-11.0 N = MO%) Eosinophils % (Auto) (test 1.2 % 0.0-7.0 N code = EO%) Basophils % (Auto) (test code 0.4 % 0.0-2.0 N = BA%) Immature Granulocytes # (Auto) 0.03 x10 3/uL (test code = IMMGRAN#) Neutrophils # (Auto) (test 5.2 x10 3/uL 1.6-7.4 N code = NE#) Lymphocytes # (Auto) (test 1.72 x10 3/uL 0.50-4.60 N code = LY#) Monocytes # (Auto) (test code 0.39 x10 3/uL 0.00-1.20 N = MO#) Eosinophils # (Auto) (test 0.09 x10 3/uL 0.00-0.74 N code = EO#) Basophils # (Auto) (test code 0.03 x10 3/uL 0.00-0.21 N = BA#) nRBC Abs (test code = NRBCA) 0 nRBC Pct (test code = NRBCP) 0 % Comprehensive Metabolic [id number] 11:22:00 Test Item Value Reference Range Interpretation Comments SODIUM (test code = NA) 139.0 mmol/L 136.0-145.0 N Potassium,K (test code = K) 3.7 mmol/L 3.0-5.1 N Chloride (test code = CL) 109 mmol/L 98-107 H Carbon Dioxide (test code = 26 mmol/L 20-31 N CO2) Anion Gap (test code = GAP) 4 mmol/L 5-15 L Blood Urea Nitrogen (test code 18 mg/dL 9-23 N = BUN) Creatinine (test code = CREATT) 0.87 mg/dL 0.55-1.02 N Creatinine Clr Calc Pharmacy 105.36 mL/min (test code = CRCLPHA) Estimated GFR ( Sneha > 60 mL/min/1.73m2 (test code = EGFRAA) Estimated GFR (Non Afr Sneha > 60 mL/min/1.73m2 (test code = EGFRNAA) BUN/Creatinine Ratio (test code 21 ratio 10-20 H = BCRATIO) Glucose (test code = GLU) 150 mg/dL 74-106 H Osmolality,Calculated (test 292.4 code = OSMOC) Calcium (test code = CA) 9.3 mg/dL 8.3-10.6 N Bilirubin,Total (test code = 0.6 mg/dL 0.2-1.1 N BILIT) Aspartate Amino Transferase 8 U/L 0-34 N (test code = AST) Alanine Aminotransferase (test 14 U/L 10-49 N code = ALT) Total Protein (test code = TP) 6.0 g/dL 5.7-8.2 N Albumin Level (test code = ALB) 4.1 g/dL 3.2-4.8 N Globulin (test code = GLOB) 1.9 mg/dL 2.3-3.5 L Albumin/Globulin Ratio (test 2.2 ratio 0.8-2.0 H code = AGRATIO) Alkaline Phosphatase (test code 84 U/L 46-116 N = ALP) Ethanol [id number] 11:22:00 Test Item Value Reference Range Interpretation Comments Ethanol (test code = ETOH) < 3 mg/dL Coronavirus PCR, COVID19 [id number] 11:22:00 Test Item Value Reference Range Interpretation Comments Coronavirus PCR, For use under Emergency COVID19 Rapid (test Use Authorization (EUA) code = SARSCOV2) only. Coronavirus PCR, Reference Range: COVID19 Rapid (test Negative code = DEEGCZB45.1) SARS-CoV-2 PCR Result: Negative by PCR (test code = SARS-CoV-2 PCR Result:) COVID-19 Status: AsymptomaticXR Chest 2 [id number] 19:03:13Examination: XR CHEST 2 VW Clinical History: cp Comparison: 11/19/2020. Technique: Frontal and lateral views of the chest were obtained. Findings:Lungs and pleural surfaces are clear. Cardiomediastinal silhouette and pulmonary vascularity are within normal limits. Bones are intact. Impression: No active cardiopulmonary disease identified. [id number]-[id number] Interface, Radiology Results - 11/21/2020 2:06 PM CDT Examination: XR CHEST 2 VWClinical History: cpComparison: 11/19/2020.Technique: Frontal and lateral views of the chest were obta ined.Findings:Lungs and pleural surfaces are clear. Cardiomediastinal silhouette and pulmonary vascularity are within normal limits. Bones are intact.Impression:No active cardiopulmonary disease identified.[id number]-[id number] [facility] CenterDrug Screen,[id number] 05:00:00 Test Item Value Reference Range Interpretation Comments PCP Phencyclidine Negative Negative Screen,Urine (test code = PCPU) Amphetamine Positive Negative A Confirmation by GC/MS Screen,Urine (test code not routinely = AMPU) performed. Ifconfirmation is required, an or renee must be placed. Methadone Screen,Urine Negative Negative (test code = METHU) Opiate Screen,Urine Negative Negative (test code = UOPIS) Barbituates Negative Negative Screen,Urine (test code = BARBU) Benzodiazepines Positive Negative A Screen,Urine (test code = UBENZS) Cocaine Screen,Urine Negative Negative (test code = UCOCS) Cannabinoid Negative Negative Screen,Urine (test code = UTHCS) Propoxyphene Screen, Negative Negative Urine (test code = UPROP) Complete Blood Count Auto [id number] 05:00:00 Test Item Value Reference Range Interpretation Comments White Blood Count (test code = 8.2 x10 3/uL 4.4-10.5 N WBCT) Red Blood Count (test code = 5.15 x10 6/uL 4.10-5.70 N RBC) Hemoglobin (test code = HGBT) 15.9 g/dL 13.4-17.4 N Hematocrit (test code = HCTT) 48.8 % 38.7-52.0 N Mean Corpuscular Volume (test 94.80 fL 80.00-100.00 N code = MCV) Mean Corpuscular Hemoglobin 30.9 pg 27.0-32.5 N (test code = MCH) Mean Corpuscular HGB Conc 32.60 g/dL 32.00-37.50 N (test code = MCHC) RDW Coefficient of Variation 11.8 % 11.5-14.5 N (test code = RDWCV) Platelet Count (test code = 246.0 x10 3/uL 140.0-440.0 N PLTT) Mean Platelet Volume (test 10.5 fL code = MPV) Immature Granulocytes % (Auto) 0.4 % 0.0-5.0 N (test code = IMMGRAN%) Neutrophils % (Auto) (test 60.5 % 36.0-70.0 N code = NE%) Lymphocytes % (Auto) (test 30.0 % 12.0-44.0 N code = LY%) Monocytes % (Auto) (test code 6.0 % 0.0-11.0 N = MO%) Eosinophils % (Auto) (test 2.6 % 0.0-7.0 N code = EO%) Basophils % (Auto) (test code 0.5 % 0.0-2.0 N = BA%) Immature Granulocytes # (Auto) 0.03 x10 3/uL (test code = IMMGRAN#) Neutrophils # (Auto) (test 5.0 x10 3/uL 1.6-7.4 N code = NE#) Lymphocytes # (Auto) (test 2.46 x10 3/uL 0.50-4.60 N code = LY#) Monocytes # (Auto) (test code 0.49 x10 3/uL 0.00-1.20 N = MO#) Eosinophils # (Auto) (test 0.21 x10 3/uL 0.00-0.74 N code = EO#) Basophils # (Auto) (test code 0.04 x10 3/uL 0.00-0.21 N = BA#) nRBC Abs (test code = NRBCA) 0 nRBC Pct (test code = NRBCP) 0 % Comprehensive Metabolic [id number] 05:00:00 Test Item Value Reference Range Interpretation Comments SODIUM (test code = NA) 140.0 mmol/L 136.0-145.0 N Potassium,K (test code = K) 4.2 mmol/L 3.0-5.1 N Chloride (test code = CL) 109 mmol/L 98-107 H Carbon Dioxide (test code = CO2) 29 mmol/L 20-31 N Anion Gap (test code = GAP) 2 mmol/L 5-15 L Blood Urea Nitrogen (test code = 19 mg/dL 9-23 N BUN) Creatinine (test code = CREATT) 1.00 mg/dL 0.55-1.02 N Creatinine Clr Calc Pharmacy 91.66 mL/min (test code = CRCLPHA) Estimated GFR ( Sneha > 60 mL/min/1.73m2 (test code = EGFRAA) Estimated GFR (Non Afr Sneha > 60 mL/min/1.73m2 (test code = EGFRNAA) BUN/Creatinine Ratio (test code 19 = BCRATIO) Glucose (test code = GLU) 97 mg/dL 74-106 N Osmolality,Calculated (test code 291.7 = OSMOC) Calcium (test code = CA) 9.9 mg/dL 8.3-10.6 N Bilirubin,Total (test code = 0.4 mg/dL 0.2-1.1 N BILIT) Aspartate Amino Transferase 19 U/L 0-34 N (test code = AST) Alanine Aminotransferase (test 14 U/L 10-49 N code = ALT) Total Protein (test code = TP) 6.8 g/dL 5.7-8.2 N Albumin Level (test code = ALB) 4.7 g/dL 3.2-4.8 N Globulin (test code = GLOB) 2.1 g/dL 2.9-3.1 L Albumin/Globulin Ratio (test 2.2 ratio 0.8-2.0 H code = AGRATIO) Alkaline Phosphatase (test code 78 U/L 46-116 N = ALP) Troponin [id number] 05:00:00 Test Item Value Reference Range Interpretation Comments Troponin I (test < 3 pg/mL 0-45 N Interpretiv e Comments:* code = TROP) The 99th percen tile URL for the assay i s <45 pg/ml.* A rise and fall in Troponin I w ith at least onevalue above the 99th percentile with clinical eviden ce ofmyocardial is chemia would support a diagnosis of AM I. Adelta of at least 20% is recommended to assess acutechanges in results above the 99th percentile in serialmeasureme nts. POCT BMP POC docked [id number] 16:14:00 Test Item Value Reference Range Interpretation Comments Sodium POC (test code = 142 mmol/L 136-145 [id number]) Potassium POC (test code 4.1 mmol/L 3.5-5.1 = 78109285) Chloride POC (test code 105 mmol/L 98-107 = 86727191) TCO2 POC (test code = 30 mmol/L 21-32 Physic lori Notified [id number]) Urea Nitrogen POC (test 20 mg/dL 7-18 H code = 23937665) Glucose POC (test code = 83 mg/dL 74-106 03903673) Hemoglobin POC (test 15.3 g/dL 12-16 code = 64853283) Hematocrit POC (test 45.0 % 37.0-47.0 code = 57121646) Lab Interpretation (test Abnormal code = 51831-2) [facility] CREATININE POC docked [id number] 16:14:00 Test Item Value Reference Range Interpretation Comments Creatinine POC (test 1.0 mg/dL 0.6-1.3 Physici an Notified code = 82120014) eGFR If non- Am >90 See_Comment [Aut omated message] (test code = 72291953) The s ystem which generated this result transmit suze reference range : >=90 mL/min/1.7 3 m2. The reference r peri was not used to interpret this result as normal/abnormal . Lab Interpretation (test Normal code = 79378-5) [facility] BMP POC docked [id number] 16:14:00 Test Item Value Reference Range Interpretation Comments Sodium POC (test code = 142 mmol/L 136-145 65945078) Potassium POC (test code 4.1 mmol/L 3.5-5.1 = 07254429) Chloride POC (test code 105 mmol/L 98-107 = 02433342) TCO2 POC (test code = 30 mmol/L -32 Physic lori Notified 56418706) Urea Nitrogen POC (test 20 mg/dL 7-18 H code = 53819022) Glucose POC (test code = 83 mg/dL 74-106 08721873) Hemoglobin POC (test 15.3 g/dL 12-16 code = 84031409) Hematocrit POC (test 45.0 % 37.0-47.0 code = 95059257) Lab Interpretation (test Abnormal code = 70012-1) [facility] CREATININE POC docked [id number] 16:14:00 Test Item Value Reference Range Interpretation Comments Creatinine POC (test 1.0 mg/dL 0.6-1.3 Physici an Notified code = 92891009) eGFR If non- Am >90 See_Comment [Aut omated message] (test code = 72074047) The s ystem which generated this result transmit suze reference range : >=90 mL/min/1.7 3 m2. The reference r peri was not used to interpret this result as normal/abnormal . Lab Interpretation (test Normal code = 68965-4) [facility]12 LEAD [id number] 14:46:2212 LEAD EKG FOR [facility] Test Date: [id number] Name: EWA TREJO Department: 5520Patient ID: [id number] Room: Gender: M [employer]: [id number]: 1975 Requested By: BETINA Schmitz Number: [id number] Reading MD: Emili Van M.D. MeasurementsIntervals [place] Rate: 112 P: 75PR: 139 QRS: 72QRSD: 90 T: 64QT: 311 QTc: 377 Interpretive StatementsSINUS TACHYCARDIAPOSSIBLE RIGHT ATRIAL ENLARGEMENT [0.25mV P-WAVE]POSSIBLE LEFT ATRIAL ENLARGEMENT [-0.1mV P- WAVE IN V1/V2]ABNORMAL RHYTHM ECGElectronically Signed On 10-04-2020 19:29:45 CDT by Emili Van M.D.[place] [address] LEAD [id number] 14:46:2212 LEAD EKG FOR [facility] Test Date: [id number] Name: EWA TREJO Department: 5520Patient ID: [id number] Room: Gender: M [employer]: [id number]: 1975 Requested By:BETINA Schmitz Number: [id number] Reading MD: Emili Van M.D. MeasurementsIntervals AxisRate: 112 P: 75PR: 139 QRS: 72QRSD: 90 T: 64QT: 311 QTc: 377 Interpretive StatementsSINUS TACHYCARDIAPOSSIBLE RIGHT ATRIAL ENLARGEMENT [0.25mV P-WAVE]POSSIBLE LEFT ATRIAL ENLARGEMENT [-0.1mV P-WAVE IN V1/V2]ABNORMAL RHYTHM ECGElectronically Signed On 10-04-2020 19:29:45 CDT by Emili Van M.D.[place] [id number] LEAD EKG 2020-10-02 12:34:2612 LEAD EKG FOR [facility] Test Date: [id number] Name: EWA TREJO Department: 5520Patient ID: [id number] Room: Gender: M [employer]: [id number]: 1975 Requested By: MISSY VOGEL Order Number: [id number] Reading MD: joel klein MeasurementsIntervals [place] Rate: 82 P: 79PR: 163 QRS: 81QRSD: 98 T: 54QT: 365 QTc: 403 Interpretive StatementsSINUS RHYTHMPOSSIBLE RIGHT ATRIALENLARGEMENT [0.25mV P-WAVE]Electronically Signed On 10-02-2020 13:53:29 CDT by [place] [address] LEAD [id number] 12:34:2612 LEAD EKG FOR [facility] Test Date: [id number] Name: EWA TREJO Department: 5520Patient ID: [id number] Room: Gender: M [employer]: [id number]: 1975 Requested By: MISSY VOGEL Order Number: [id number] Reading MD: joel klein MeasurementsIntervals [place] Rate: 82 P: 79PR: 163 QRS: 81QRSD: 98 T: 54QT: 365 QTc: 403 Interpretive StatementsSINUS RHYTHMPOSSIBLE RIGHT ATRIALENLARGEMENT [0.25mV P-WAVE]Electronically Signed On 10-02-2020 13:53:29 [facility] Urinal[facility] Rflx Cult/[id number] 23:32:00 Test Item Value Reference Range Interpretation Comments Color,Urine (test code Yellow Y = UCOL) Clarity,Urine (test Clear Clear code = UCLAR) PH,Urine (test code = 6.0 5.5-8.5 UPH.XX) Specific [place],Urine 1.025 1.005-1.030 N (test code = USG) Blood,Urine (test code Non-hemolyzed Trace Negative A = UBLD) cells/uL Protein,Urine (test Negative mg/dL Negative code = UPRO) Glucose,Urine (UA) 100 mg/dl mg/dL Negative A (test code = UGLU) Ketones,Urine (test 15 mg/dL Negative A code = UKET) Nitrate,Urine (test Negative Negative code = UNIT) Bilirubin,Urine (test Negative mg/dL Negative code = UBIL) Urobilinogen,Urine 0.2 mg/dL Negative (test code = UURO) Leukocyte Negative cells/uL Negative Esterase,Urine (test code = ULEU) Urine [id number] 23:32:00 Test Item Value Reference Range Interpretation Comments RBC,Urine (test code = URBC.XX) 0-3 /HPF None Seen WBC,Urine (test code = UWBC.XX) 0-2 /HPF None Seen Squamous Epithelial Cell,Urine 0-20 /HPF None Seen A (test code = USQEPI.XX) Bacteria,Urine (test code = UBACT) Trace /HPF None Seen A Drug Screen,[id number] 23:32:00 Test Item Value Reference Range Interpretation Comments PCP Phencyclidine Screen,Urine (test Negative Negative code = PCPU) Amphetamine Screen,Urine (test code Negative Negative = AMPU) Methadone Screen,Urine (test code = Negative Negative METHU) Opiate Screen,Urine (test code = Negative Negative UOPIS) Barbituates Screen,Urine (test code Negative Negative = BARBU) Benzodiazepines Screen,Urine (test Negative Negative code = UBENZS) Cocaine Screen,Urine (test code = Negative Negative UCOCS) Cannabinoid Screen,Urine (test code Negative Negative = UTHCS) Propoxyphene Screen, Urine (test Negative Negative code = UPROP) Complete Blood Count Auto [id number] 23:30:00 Test Item Value Reference Range Interpretation Comments White Blood Count (test code = 7.6 x10 3/uL 4.4-10.5 N WBCT) Red Blood Count (test code = 4.62 x10 6/uL 4.10-5.70 N RBC) Hemoglobin (test code = HGBT) 14.5 g/dL 13.4-17.4 N Hematocrit (test code = HCTT) 43.6 % 38.7-52.0 N Mean Corpuscular Volume (test 94.40 fL 80.00-100.00 N code = MCV) Mean Corpuscular Hemoglobin 31.4 pg 27.0-32.5 N (test code = MCH) Mean Corpuscular HGB Conc 33.30 g/dL 32.00-37.50 N (test code = MCHC) RDW Coefficient of Variation 11.7 % 11.5-14.5 N (test code = RDWCV) Platelet Count (test code = 256.0 x10 3/uL 140.0-440.0 N PLTT) Mean Platelet Volume (test 10.5 fL code = MPV) Immature Granulocytes % (Auto) 0.4 % 0.0-5.0 N (test code = IMMGRAN%) Neutrophils % (Auto) (test 57.6 % 36.0-70.0 N code = NE%) Lymphocytes % (Auto) (test 27.9 % 12.0-44.0 N code = LY%) Monocytes % (Auto) (test code 11.5 % 0.0-11.0 H = MO%) Eosinophils % (Auto) (test 2.1 % 0.0-7.0 N code = EO%) Basophils % (Auto) (test code 0.5 % 0.0-2.0 N = BA%) Immature Granulocytes # (Auto) 0.03 x10 3/uL (test code = IMMGRAN#) Neutrophils # (Auto) (test 4.4 x10 3/uL 1.6-7.4 N code = NE#) Lymphocytes # (Auto) (test 2.13 x10 3/uL 0.50-4.60 N code = LY#) Monocytes # (Auto) (test code 0.88 x10 3/uL 0.00-1.20 N = MO#) Eosinophils # (Auto) (test 0.16 x10 3/uL 0.00-0.74 N code = EO#) Basophils # (Auto) (test code 0.04 x10 3/uL 0.00-0.21 N = BA#) nRBC Abs (test code = NRBCA) 0 nRBC Pct (test code = NRBCP) 0 % Comprehensive Metabolic [id number] 23:30:00 Test Item Value Reference Range Interpretation Comments SODIUM (test code = NA) 139.0 mmol/L 136.0-145.0 N Potassium,K (test code = K) 3.9 mmol/L 3.0-5.1 N Chloride (test code = CL) 107 mmol/L 98-107 N Carbon Dioxide (test code = 25 mmol/L 20-31 N CO2) Anion Gap (test code = GAP) 7 mmol/L 5-15 N Blood Urea Nitrogen (test code 21 mg/dL 9-23 N = BUN) Creatinine (test code = CREATT) 0.74 mg/dL 0.55-1.02 N Creatinine Clr Calc Pharmacy 137.66 mL/min (test code = CRCLPHA) Estimated GFR ( Sneha > 60 mL/min/1.73m2 (test code = EGFRAA) Estimated GFR (Non Afr Sneha > 60 mL/min/1.73m2 (test code = EGFRNAA) BUN/Creatinine Ratio (test code 28 ratio 10-20 H = BCRATIO) Glucose (test code = GLU) 153 mg/dL 74-106 H Osmolality,Calculated (test 293.5 code = OSMOC) Calcium (test code = CA) 9.7 mg/dL 8.3-10.6 N Bilirubin,Total (test code = 0.3 mg/dL 0.2-1.1 N BILIT) Aspartate Amino Transferase 19 U/L 0-34 N (test code = AST) Alanine Aminotransferase (test 16 U/L 10-49 N code = ALT) Total Protein (test code = TP) 6.2 g/dL 5.7-8.2 N Albumin Level (test code = ALB) 4.6 g/dL 3.2-4.8 N Globulin (test code = GLOB) 1.6 mg/dL 2.3-3.5 L Albumin/Globulin Ratio (test 2.9 ratio 0.8-2.0 H code = AGRATIO) Alkaline Phosphatase (test code 92 U/L 46-116 N = ALP) Thyroid Stimulating [id number] 23:30:00 Test Item Value Reference Range Interpretation Comments Thyroid Stimulating Hormone 1.43 mcIU/mL 0.55-4.78 N (test code = TSH) CT Abdomen and Pelvis w/ [id number] 12:23:28Patient: EWA TREJO Date/Time01/21/2020 11:55 CDTReason for ExamAbdominal painReportHISTORY: Abdominal painEXAM TYPE: CT abdomen and pelvis with IV contrast.Location code:[id number]:Contrast - IV contrast was given, no oral contrast was givenPortal venous phase - abdomen and pelvisNo delayed phase images were obtained.Reconstructions - coronal and sagittal planesOne ormore of the following dose reduction techniques were used: Automated exposure control, adjustment ofthe mA and/or kV according to patient size, and/or utilization of iterative reconstruction technique.COMPARISON: CT abdomen and pelvis 12/06/2018FINDINGS:Statements: None.Thoracic: Included images of thelower chest demonstrate no abnormalities.Hepatobiliary: The liver is normal without focal lesion. The gallbladder is normal. No biliary dilation.Pancreas: Normal. No focal mass or ductal dilatation. Nosurrounding peripancreatic fluid.Spleen: Normal.Adrenals: Normal.Genitourinary: There is symmetric renal enhancement. A tiny 4 mm partially exophytic cyst is present along the interpolar left kidney posteriorly (image 37, series 2). No hydronephrosis is present. Evaluation of the bladder is limited, but no obvious bladder abnormality is present.Gastrointestinal: No bowel obstruction or perienteric inflammation. Normal caliber appendix (image 62, series 2). There is a cystic structure present in the right lower quadrant, measuring approximately 3.3 cm AP x 2.0 cm TR x 1.7 cm CC (image 64, series 2; image 38, series 8038), possibly a focal area of distended fluid filled bowel given lack of enteric contrast. However, given its focally rounded shape underlying mesenteric duplication cyst or other GI cystic structures not entirely excluded; difficult to tell if this was present on prior exam in 2019 due to multiple fluid-filled bowel loops present. Moderate volume stool burden seen throughout segments of the colon and rectum.Vascular: Moderate scattered Atherosclerotic calcifications are seen within the aorta and branch vessels, slightly greater than expected for age and unchanged. No evidence of aortic aneurysm.Lymphatics: No enlarged lymph nodes by CT size criteria.Bones/Soft Tissues: No acute osseous findings. Stable mild L5- S1 DJD. No ventral hernias.Peritoneum/Other: No extraluminal air. Noextraluminal fluid.IMPRESSION:1. Normal appendix.Exam Date/Time01/21/2020 11:55 CDTReport2. Limited evaluation of the gastrointestinal system due to lack of enteric contrast. A cystic structure is present in the right lower quadrant measure up to 3.3 cm, nonspecific and may be related to a focally dilated fluid-filled bowel loop. However, given its rounded appearance, underlying mesenteric duplicationcyst or other cystic gastrointestinal structure not entirely excluded. Continued attention on follow-up.3. Moderate volume stool burden present throughout the colon and rectum, correlate clinically forsigns of constipation. No bowel obstruction. No pneumoperitoneum. Final Dictated by: MD Carmen, KarenDictated DT/TM: 01/21/2020 12:14 pmSigned by: MD Carmen, JellylySigned (Electronic Signature): 01/21/2020 12:23 pmLipase [id number] 11:17:19 Test Item Value Reference Range Interpretation Comments Lipase Level (test code = Lipase 26 U/L 12-53 Level) Comprehensive Metabolic [id number] 11:17:18 Test Item Value Reference Range Interpretation Comments Sodium Level (test code = Sodium 138.0 mmol/L 136.0-145.0 Level) Potassium Level (test code = 4.20 mmol/L 3.50-5.10 Potassium Level) Chloride Level (test code = 105.0 mmol/L 98.0-107.0 Chloride Level) CO2 (test code = CO2) 30 mmol/L 20-31 Anion Gap (test code = Anion 3.1 mmol/L 5.0-15.0 L Gap) BUN (test code = BUN) 14 mg/dL 9-23 Creatinine Level (test code = 0.98 mg/dL 0.70-1.30 Creatinine Level) BUN/Creat Ratio (test code = 14.3 ratio 10.0-20.0 BUN/Creat Ratio) Glucose Level (test code = 111 mg/dL 74-106 H Glucose Level) Calcium Level (test code = 9.9 mg/dL 8.3-10.6 Calcium Level) Alk Phos (test code = Alk Phos) 54 U/L 46-116 Bilirubin Total (test code = 0.9 mg/dL 0.2-1.1 Bilirubin Total) Albumin Level (test code = 4.7 g/dL 3.2-4.8 Albumin Level) Protein Total (test code = 6.9 g/dL 5.7-8.2 Protein Total) ALT (test code = ALT) 19 U/L 10-49 AST (test code = AST) 16 U/L <=34 Globulin (test code = Globulin) 2.2 g/dL 2.3-3.5 L A/G Ratio (test code = A/G 2.1 g/dL 0.8-2.0 H Ratio) Hemolysis (test code = 0 g/dL 1-2 H Hemolysis) Icterus (test code = Icterus) 0 g/dL 1-2 H Lipemia (test code = Lipemia) 0 g/dL 1-2 H Comprehensive Metabolic [id number] 11:17:18 Test Item Value Reference Range Interpretation Comments Sodium Level (test 138.0 mmol/L 136.0-145.0 code = Sodium Level) Potassium Level 4.20 mmol/L 3.50-5.10 (test code = Potassium Level) Chloride Level (test 105.0 mmol/L 98.0-107.0 code = Chloride Level) CO2 (test code = 30 mmol/L 20-31 CO2) Anion Gap (test code 3.1 mmol/L 5.0-15.0 L = Anion Gap) BUN (test code = 14 mg/dL 9-23 BUN) Creatinine Level 0.98 mg/dL 0.70-1.30 (test code = Creatinine Level) BUN/Creat Ratio 14.3 ratio 10.0-20.0 (test code = BUN/Creat Ratio) Glucose Level (test 111 mg/dL 74-106 H code = Glucose Level) Calcium Level (test 9.9 mg/dL 8.3-10.6 code = Calcium Level) Alk Phos (test code 54 U/L 46-116 = Alk Phos) Bilirubin Total 0.9 mg/dL 0.2-1.1 (test code = Bilirubin Total) Albumin Level (test 4.7 g/dL 3.2-4.8 code = Albumin Level) Protein Total (test 6.9 g/dL 5.7-8.2 code = Protein Total) ALT (test code = 19 U/L 10-49 ALT) AST (test code = 16 U/L <=34 AST) Globulin (test code 2.2 g/dL 2.3-3.5 L = Globulin) A/G Ratio (test code 2.1 g/dL 0.8-2.0 H = A/G Ratio) eGFR AA (test code = >60 >=60 eGFR (e stimated eGFR AA) mL/min/1.73 m2 Glomerular Filtration Rate ) is an estimated va lue, calculated from the patient's serum creatinine usin g the MDRD equation. It is NOT the patient 's actual GFR. The eGFR provides a more clinically usef ul measure of kidn ey disease than se rum creatinine alone.This calculation marge es sex and race in to account, if the information is provided. If th e race is not provided, and t he patient is -Sneha n, multiply by 1.2 12. If sex is not provided, and t he patient is fema le, multiply by 0.7 42. Results for pat ients <18 years of ag e have not been validated by th e MDRD study and should be interpreted wit h caution. eGFR R esult Interpretation: eGFR > or = 60 is in the Normal RangeeGF R < 60 may mean kid paula diseaseeGFR < 1 5 may mean kidney failure Rang es recommended by the National Kidney Foundation, http://nkdep.ni h.gov Hemolysis (test code 0 g/dL 1-2 H = Hemolysis) Icterus (test code = 0 g/dL 1-2 H Icterus) Lipemia (test code = 0 g/dL 1-2 H Lipemia) Comprehensive Metabolic [id number] 11:17:18 Test Item Value Reference Range Interpretation Comments Sodium Level (test 138.0 mmol/L 136.0-145.0 code = Sodium Level) Potassium Level 4.20 mmol/L 3.50-5.10 (test code = Potassium Level) Chloride Level (test 105.0 mmol/L 98.0-107.0 code = Chloride Level) CO2 (test code = 30 mmol/L 20-31 CO2) Anion Gap (test code 3.1 mmol/L 5.0-15.0 L = Anion Gap) BUN (test code = 14 mg/dL 9-23 BUN) Creatinine Level 0.98 mg/dL 0.70-1.30 (test code = Creatinine Level) BUN/Creat Ratio 14.3 ratio 10.0-20.0 (test code = BUN/Creat Ratio) Glucose Level (test 111 mg/dL 74-106 H code = Glucose Level) Calcium Level (test 9.9 mg/dL 8.3-10.6 code = Calcium Level) Alk Phos (test code 54 U/L 46-116 = Alk Phos) Bilirubin Total 0.9 mg/dL 0.2-1.1 (test code = Bilirubin Total) Albumin Level (test 4.7 g/dL 3.2-4.8 code = Albumin Level) Protein Total (test 6.9 g/dL 5.7-8.2 code = Protein Total) ALT (test code = 19 U/L 10-49 ALT) AST (test code = 16 U/L <=34 AST) Globulin (test code 2.2 g/dL 2.3-3.5 L = Globulin) A/G Ratio (test code 2.1 g/dL 0.8-2.0 H = A/G Ratio) eGFR AA (test code = >60 >=60 eGFR (e stimated eGFR AA) mL/min/1.73 m2 Glomerular Filtration Rate ) is an estimated va lue, calculated from the patient's serum creatinine usin g the MDRD equation. It is NOT the patient 's actual GFR. The eGFR provides a more clinically usef ul measure of kidn ey disease than se rum creatinine alone.This calculation marge es sex and race in to account, if the information is provided. If th e race is not provided, and t he patient is -Sneha n, multiply by 1.2 12. If sex is not provided, and t he patient is fema le, multiply by 0.7 42. Results for pat ients <18 years of ag e have not been validated by th e MDRD study and should be interpreted wit h caution. eGFR R esult Interpretation: eGFR > or = 60 is in the Normal RangeeGF R < 60 may mean kid paula diseaseeGFR < 1 5 may mean kidney failure Rang es recommended by the National Kidney Foundation, http://nkdep.ni h.gov eGFR Non-AA (test >60.00 >=60.00 eGFR (jesse mated code = eGFR Non-AA) mL/min/1.73 m2 Glomer ular Filtration Rate ) is an estimated va lue, calculated from the patient's serum creatinine usin g the MDRD equation. It is NOT the patient 's actual GFR. The eGFR provides a more clinically usef ul measure of kidn ey disease than se rum creatinine alone.This calculation marge es sex and race in to account, if the information is provided. If th e race is not provided, and t he patient is -Sneha n, multiply by 1.2 12. If sex is not provided, and t he patient is fema le, multiply by 0.7 42. Results for pat ients <18 years of ag e have not been validated by th e MDRD study and should be interpreted wit h caution. eGFR R esult Interpretation: eGFR > or = 60 is in the Normal RangeeGF R < 60 may mean kid paula diseaseeGFR < 1 5 may mean kidney failure Rang es recommended by the National Kidney Foundation, http://nkdep.ni h.gov Hemolysis (test code 0 g/dL 1-2 H = Hemolysis) Icterus (test code = 0 g/dL 1-2 H Icterus) Lipemia (test code = 0 g/dL 1-2 H Lipemia) Complete Blood Count with [id number] 11:14:37 Test Item Value Reference Range Interpretation Comments WBC (test code = WBC) 6.9 x10 4.4-10.5 RBC (test code = RBC) 5.34 x10 4.10-5.70 Hgb (test code = Hgb) 16.2 g/dL 13.4-17.4 Hct (test code = Hct) 51.7 % 38.7-52.0 MCV (test code = MCV) 96.80 fL 80.00-100.00 MCHC (test code = 31.30 g/dL 32.00-37.50 L MCHC) RDW CV (test code = 11.1 % 11.5-14.5 L RDW CV) MCH (test code = MCH) 30.3 pg 27.0-32.5 Platelets (test code = 248.0 x10 140.0-440.0 Platelets) MPV (test code = MPV) 10.6 fL N Slide Review (test Auto Auto Result cr eated by code = Slide Review) GL_SJM_ SLIDE_REV_AUTO nRBC (test code = 0 N nRBC) NRBC Abs (test code = 0.00 x10 N NRBC Abs) Automated [id number] 11:14:37 Test Item Value Reference Range Interpretation Comments Neutro Auto (test code = Neutro 62.6 % 36.0-70.0 Auto) Lymph Auto (test code = Lymph Auto) 27.0 % 12.0-44.0 Wise Auto (test code = Wise Auto) 7.7 % 0.0-11.0 Eos, Auto (test code = Eos, Auto) 1.7 % 0.0-7.0 Basophil Auto (test code = Basophil 0.6 % 0.0-2.0 Auto) Neutro Absolute (test code = Neutro 4.3 x10 1.6-7.4 Absolute) Lymph Absolute (test code = Lymph 1.86 x10 .50-4.60 Absolute) Wise Absolute (test code = Wise .53 x10 .00-1.20 Absolute) Eos Absolute (test code = Eos 0.12 x10 0.00-0.74 Absolute) Baso Absolute (test code = Baso 0.04 x10 0.00-0.21 Absolute) IG [id number] 11:14:37 Test Item Value Reference Range Interpretation Comments IG (test code = IG) 0.4 % 0.0-5.0 IG Abs (test code = IG Abs) 0 x10 N Urinalysis [id number] 11:12:03 Test Item Value Reference Range Interpretation Comments UA WBC (test code = UA WBC) None Seen 0-5 UA RBC (test code = UA RBC) 0-5 0-5 Urinalysis with Microscopic if [id number] 11:10:49 Test Item Value Reference Range Interpretation Comments UA Color (test code = UA Color) YELLO Yellow UA Appear (test code = UA Appear) CLEAR Clear UA pH (test code = UA pH) 7.0 UA Spec Grav (test code = UA Spec 1.020 1.001-1.035 Grav) UA Glucose (test code = UA Glucose) NEG Negative UA Ketones (test code = UA Ketones) NEG Negative UA Blood (test code = UA Blood) TR Negative A UA Protein (test code = UA Protein) NEG Negative UA Bili (test code = UA Bili) NEG Negative UA Urobilinogen (test code = UA .2 mg/dL >0.2 Urobilinogen) UA Nitrite (test code = UA Nitrite) NEG Negative UA Leuk Est (test code = UA Leuk NEG Negative Est) UA Micro Ind? (test code = UA Micro Indicated Not Indicated A Ind?) Comprehensive Metabolic [id number] 00:28:22 Test Item Value Reference Range Interpretation Comments Sodium Level (test 139.0 mmol/L 135.0-145.0 code = Sodium Level) Potassium Level 4.1 mmol/L 3.5-5.1 (test code = Potassium Level) Chloride Level (test 104 mmol/L 98-105 code = Chloride Level) CO2 (test code = 21 mmol/L 22-29 L CO2) Anion Gap (test code 14 mmol/L 7-16 = Anion Gap) BUN (test code = 10.80 mg/dL 6.00-20.00 BUN) Creatinine Level 0.90 mg/dL 0.70-1.20 (test code = Creatinine Level) BUN/Creat Ratio 12 N (test code = BUN/Creat Ratio) Glucose Level (test 109 mg/dL 70-115 code = Glucose Level) Calcium Level (test 9.8 mg/dL 8.3-10.5 code = Calcium Level) Alk Phos (test code 57 U/L 40-129 = Alk Phos) Bilirubin Total 0.5 mg/dL 0.1-0.9 (test code = Bilirubin Total) Albumin Level (test 4.6 g/dL 3.5-5.2 code = Albumin Level) Protein Total (test 7.0 g/dL 6.4-8.3 code = Protein Total) ALT (test code = 71 U/L 1-41 H ALT) AST (test code = 42 U/L 1-40 H AST) Globulin (test code 2.4 g/dL 2.9-3.1 L = Globulin) A/G Ratio (test code 1.9 ratio N = A/G Ratio) eGFR AA (test code = >60 N eGFR (e stimated eGFR AA) mL/min/1.73 m2 Glomerular Filtration Rate ) is an estimated va lue, calculated from the patient's serum creatinine usin g the MDRD equation. It is NOT the patient 's actual GFR. The eGFR provides a more clinically usef ul measure of kidn ey disease than se rum creatinine alone.This calculation marge es sex and race in to account, if the information is provided. If th e race is not provided, and t he patient is -Sneha n, multiply by 1.2 12. If sex is not provided, and t he patient is fema le, multiply by 0.7 42. Results for pat ients <18 years of ag e have not been validated by [facility] MDRD study and should be interpreted wit h caution. eGFR R esult Interpretation: eGFR > or = 60 is in the Normal RangeeGF R < 60 may mean kid paula diseaseeGFR < 1 5 may mean kidney failure Rang es recommended by the National Kidney Foundation, http://nkdep.ni h.gov eGFR Non-AA (test >60.00 N eGFR (jesse mated code = eGFR Non-AA) mL/min/1.73 m2 Glomer ular Filtration Rate ) is an estimated va lue, calculated from the patient's serum creatinine usin g the MDRD equation. It is NOT the patient 's actual GFR. The eGFR provides a more clinically usef ul measure of kidn ey disease than se rum creatinine alone.This calculation marge es sex and race in to account, if the information is provided. If e race is not provided, and t he patient is -Sneha n, multiply by 1.2 12. If sex is not provided, and t he patient is fema le, multiply by 0.7 42. Results for pat ients <18 years of ag e have not been validated by [facility] MDRD study and should be interpreted wit h caution. eGFR R esult Interpretation: eGFR > or = 60 is in the Normal RangeeGF R < 60 may mean kid paula diseaseeGFR < 1 5 may mean kidney failure Rang es recommended by the National Kidney Foundation, http://nkdep.ni h.gov XR Chest 1 View [id number] 00:26:55Patient: EWA TREJO Date/Time07/29/2019 23:17 CDTReason for ExamCoughReportExam: AP chestLocation: H 12HISTORY: CoughComparison: 07/20/2019.Findings:The lungs are clear. The pulmonary vasculature is normal. The heart size is normal. The mediastinal silhouette is unremarkable. The bony thorax is intact.Impression:No acute disease. Final Dictated by: MD German,Ruben TARANGOictated DT/TM: 07/30/2019 0:26 amSigned by: MD German, Ruben MSigned (Electronic Signature): 07/30/2019 0:26 amComplete Blood Count with [id number] 23:09:21 Test Item Value Reference Range Interpretation Comments WBC (test code = WBC) 9.1 x10 4.4-10.5 RBC (test code = RBC) 5.13 x10 4.10-5.70 Hgb (test code = Hgb) 16.1 g/dL 13.4-17.4 Hct (test code = Hct) 48.3 % 38.7-52.0 MCV (test code = MCV) 94.20 fL 80.00-100.00 MCHC (test code = 33.30 g/dL 32.00-37.50 MCHC) RDW CV (test code = 11.7 % 11.5-14.5 RDW CV) MCH (test code = MCH) 31.4 pg 27.0-32.5 Platelets (test code = 257.0 x10 140.0-440.0 Platelets) MPV (test code = MPV) 10.3 fL N Slide Review (test Auto Auto Result cr eated by code = Slide Review) GL_SJM_ SLIDE_REV_AUTO nRBC (test code = 0 N nRBC) NRBC Abs (test code = 0.00 x10 N NRBC Abs) IPF (test code = IPF) 0 % N Automated [id number] 23:09:21 Test Item Value Reference Range Interpretation Comments Neutro Auto (test code = Neutro 54.0 % 36.0-70.0 Auto) Lymph Auto (test code = Lymph Auto) 38.1 % 12.0-44.0 Wise Auto (test code = Wise Auto) 5.9 % 0.0-11.0 Eos, Auto (test code = Eos, Auto) 1.1 % 0.0-7.0 Basophil Auto (test code = Basophil 0.5 % 0.0-2.0 Auto) Neutro Absolute (test code = Neutro 4.9 x10 1.6-7.4 Absolute) Lymph Absolute (test code = Lymph 3.47 x10 .50-4.60 Absolute) Wise Absolute (test code = Wise .54 x10 .00-1.20 Absolute) Eos Absolute (test code = Eos 0.10 x10 0.00-0.74 Absolute) Baso Absolute (test code = Baso 0.05 x10 0.00-0.21 Absolute) IG [id number] 23:09:21 Test Item Value Reference Range Interpretation Comments IG (test code = IG) 0.4 % 0.0-5.0 IG Abs (test code = IG Abs) 0 x10 N Viral Culture, Rapid, Influenza [id number] 23:07:11CommentNegative:No Influenza A or B detected.Performed At: [facility] [address] [id number] Sanjai MD Ph:[phone] 2019-07-22 15:12:060.06 A procalcitonin (PCT) level above 2.0 ng/mL on the firstday of ICU admission is associated witha high risk forprogression to severe sepsis and/or septic shock. A PCT level below 0.5 ng/mL on the first day of ICUadmission is associated with a low risk for progressionto severe sepsis and/or septicshock. Note: Concentrations <0.5 ng/mL do not exclude aninfection, on account of localized infections (withoutsystemic signs) which can be associated with such lowconcentrations, or a systemic infection in its initialstages (<6 hours).Furthermore, increased procalcitonin can occur withoutinfection. PCT concentrations between 0.5 and 2.0 ng/mLshould be interpreted taking into account the patient'shistory. It is recommended to retest PCT within 6-24 hoursif any concentrations <2 ng/mL are obta ined.Performed At: [facility] [address] [id number] Kyle L MD Ph:[phone] Culture Strep [id number] 08:06:18No Group A Strep at 24 hours. No Group A Strep at 48 hours.Flu A and B [id number] 12:03:04 Test Item Value Reference Range Interpretation Comments Influenza A Ag (test Negative Negative A negat brandy test code = Influenza A result do es not Ag) exclude infecti on with influenza A or B. Flu A or B [facility] may be be low the detection l imit of the test. Culture of nega tive sample is recommended. Influenza B Ag (test Negative Negative code = Influenza B Ag) Lot # (test code = [id number] N Lot #) Expiration Dt (test 11/05/19 N code = Expiration Dt) Internal QC (test Acceptable code = Internal QC) Neg Control (test Negative code = Neg Control) Pos Control (test Not Performed code = Pos Control) Extract Lot # (test [id number] N code = Extract Lot #) Extract Exp. Dt (test 03/07/22 N code = Extract Exp. Dt) Streptococcus A Screen Rapid w/ Reflex [id number] 12:00:14 Test Item Value Reference Range Interpretation Comments Strep A Scn (test code = Strep Negative Negative A Scn) Lot # (test code = Lot #) [id number] N Expiration Dt (test code = 08/20/20 N Expiration Dt) Neg Control (test code = Neg Not Performed Control) Pos Control (test code = Pos Not Performed Control) Internal QC (test code = Acceptable Internal QC) Comprehensive Metabolic [id number] 11:57:41 Test Item Value Reference Range Interpretation Comments Sodium Level (test 137.0 mmol/L 135.0-145.0 code = Sodium Level) Potassium Level 4.1 mmol/L 3.5-5.1 (test code = Potassium Level) Chloride Level (test 100 mmol/L 98-105 code = Chloride Level) CO2 (test code = 22 mmol/L 22-29 CO2) Anion Gap (test code 15 mmol/L 7-16 = Anion Gap) BUN (test code = 8.00 mg/dL 6.00-20.00 BUN) Creatinine Level 1.00 mg/dL 0.70-1.20 (test code = Creatinine Level) BUN/Creat Ratio 8 N (test code = BUN/Creat Ratio) Glucose Level (test 118 mg/dL 70-115 H code = Glucose Level) Calcium Level (test 9.8 mg/dL 8.3-10.5 code = Calcium Level) Alk Phos (test code 59 U/L 40-129 = Alk Phos) Bilirubin Total 0.7 mg/dL 0.1-0.9 (test code = Bilirubin Total) Albumin Level (test 4.6 g/dL 3.5-5.2 code = Albumin Level) Protein Total (test 7.2 g/dL 6.4-8.3 code = Protein Total) ALT (test code = 27 U/L 1-41 ALT) AST (test code = 24 U/L 1-40 AST) Globulin (test code 2.6 g/dL 2.9-3.1 L = Globulin) A/G Ratio (test code 1.8 ratio N = A/G Ratio) eGFR AA (test code = >60 N eGFR (e stimated eGFR AA) mL/min/1.73 m2 Glomerular Filtration Rate ) is an estimated va lue, calculated from the patient's serum creatinine usin g the MDRD equation. It is NOT the patient 's actual GFR. The eGFR provides a more clinically usef ul measure of kidn ey disease than se rum creatinine alone.This calculation marge es sex and race in to account, if the information is provided. If th e race is not provided, and t he patient is -Sneha n, multiply by 1.2 12. If sex is not provided, and t he patient is fema le, multiply by 0.7 42. Results for pat ients <18 years of ag e have not been validated by th e MDRD study and should be interpreted wit h caution. eGFR R esult Interpretation: eGFR > or = 60 is in the Normal RangeeGF R < 60 may mean kid paula diseaseeGFR < 1 5 may mean kidney failure Rang es recommended by the National Kidney Foundation, http://nkdep.ni h.gov Comprehensive Metabolic [id number] 11:57:41 Test Item Value Reference Range Interpretation Comments Sodium Level (test 137.0 mmol/L 135.0-145.0 code = Sodium Level) Potassium Level 4.1 mmol/L 3.5-5.1 (test code = Potassium Level) Chloride Level (test 100 mmol/L 98-105 code = Chloride Level) CO2 (test code = 22 mmol/L 22-29 CO2) Anion Gap (test code 15 mmol/L 7-16 = Anion Gap) BUN (test code = 8.00 mg/dL 6.00-20.00 BUN) Creatinine Level 1.00 mg/dL 0.70-1.20 (test code = Creatinine Level) BUN/Creat Ratio 8 N (test code = BUN/Creat Ratio) Glucose Level (test 118 mg/dL 70-115 H code = Glucose Level) Calcium Level (test 9.8 mg/dL 8.3-10.5 code = Calcium Level) Alk Phos (test code 59 U/L 40-129 = Alk Phos) Bilirubin Total 0.7 mg/dL 0.1-0.9 (test code = Bilirubin Total) Albumin Level (test 4.6 g/dL 3.5-5.2 code = Albumin Level) Protein Total (test 7.2 g/dL 6.4-8.3 code = Protein Total) ALT (test code = 27 U/L 1-41 ALT) AST (test code = 24 U/L 1-40 AST) Globulin (test code 2.6 g/dL 2.9-3.1 L = Globulin) A/G Ratio (test code 1.8 ratio N = A/G Ratio) eGFR AA (test code = >60 N eGFR (e stimated eGFR AA) mL/min/1.73 m2 Glomerular Filtration Rate ) is an estimated va lue, calculated from the patient's serum creatinine usin g the MDRD equation. It is NOT the patient 's actual GFR. The eGFR provides a more clinically usef ul measure of kidn ey disease than se rum creatinine alone.This calculation marge es sex and race in to account, if the information is provided. If th e race is not provided, and t he patient is -Sneha n, multiply by 1.2 12. If sex is not provided, and t he patient is fema le, multiply by 0.7 42. Results for pat ients <18 years of ag e have not been validated by th e MDRD study and should be interpreted wit h caution. eGFR R esult Interpretation: eGFR > or = 60 is in the Normal RangeeGF R < 60 may mean kid paula diseaseeGFR < 1 5 may mean kidney failure Rang es recommended by the National Kidney Foundation, http://nkdep.ni h.gov Comprehensive Metabolic [id number] 11:57:41 Test Item Value Reference Range Interpretation Comments Sodium Level (test 137.0 mmol/L 135.0-145.0 code = Sodium Level) Potassium Level 4.1 mmol/L 3.5-5.1 (test code = Potassium Level) Chloride Level (test 100 mmol/L 98-105 code = Chloride Level) CO2 (test code = 22 mmol/L 22-29 CO2) Anion Gap (test code 15 mmol/L 7-16 = Anion Gap) BUN (test code = 8.00 mg/dL 6.00-20.00 BUN) Creatinine Level 1.00 mg/dL 0.70-1.20 (test code = Creatinine Level) BUN/Creat Ratio 8 N (test code = BUN/Creat Ratio) Glucose Level (test 118 mg/dL 70-115 H code = Glucose Level) Calcium Level (test 9.8 mg/dL 8.3-10.5 code = Calcium Level) Alk Phos (test code 59 U/L 40-129 = Alk Phos) Bilirubin Total 0.7 mg/dL 0.1-0.9 (test code = Bilirubin Total) Albumin Level (test 4.6 g/dL 3.5-5.2 code = Albumin Level) Protein Total (test 7.2 g/dL 6.4-8.3 code = Protein Total) ALT (test code = 27 U/L 1-41 ALT) AST (test code = 24 U/L 1-40 AST) Globulin (test code 2.6 g/dL 2.9-3.1 L = Globulin) A/G Ratio (test code 1.8 ratio N = A/G Ratio) eGFR AA (test code = >60 N eGFR (e stimated eGFR AA) mL/min/1.73 m2 Glomerular Filtration Rate ) is an estimated va lue, calculated from the patient's serum creatinine usin g the MDRD equation. It is NOT the patient 's actual GFR. The eGFR provides a more clinically usef ul measure of kidn ey disease than se rum creatinine alone.This calculation marge es sex and race in to account, if the information is provided. If th e race is not provided, and t he patient is -Sneha n, multiply by 1.2 12. If sex is not provided, and t he patient is fema le, multiply by 0.7 42. Results for pat ients <18 years of ag e have not been validated by th e MDRD study and should be interpreted wit h caution. eGFR R esult Interpretation: eGFR > or = 60 is in the Normal RangeeGF R < 60 may mean kid paula diseaseeGFR < 1 5 may mean kidney failure Rang es recommended by the National Kidney Foundation, http://nkdep.ni h.gov eGFR Non-AA (test >60.00 N eGFR (jesse mated code = eGFR Non-AA) mL/min/1.73 m2 Glomer ular Filtration Rate ) is an estimated va lue, calculated from the patient's serum creatinine usin g the MDRD equation. It is NOT the patient 's actual GFR. The eGFR provides a more clinically usef ul measure of kidn ey disease than se rum creatinine alone.This calculation marge es sex and race in to account, if the information is provided. If th e race is not provided, and t he patient is -Sneha n, multiply by 1.2 12. If sex is not provided, and t he patient is fema le, multiply by 0.7 42. Results for pat ients <18 years of ag e have not been validated by th e MDRD study and should be interpreted wit h caution. eGFR R esult Interpretation: eGFR > or = 60 is in the Normal RangeeGF R < 60 may mean kid paula diseaseeGFR < 1 5 may mean kidney failure Rang es recommended by the National Kidney Foundation, http://nkdep.ni h.gov Complete Blood Count with [id number] 11:47:07 Test Item Value Reference Range Interpretation Comments WBC (test code = WBC) 10.2 x10 4.4-10.5 RBC (test code = RBC) 5.19 x10 4.10-5.70 Hgb (test code = Hgb) 16.4 g/dL 13.4-17.4 MCV (test code = MCV) 94.20 fL 80.00-100.00 Hct (test code = Hct) 48.9 % 38.7-52.0 MCHC (test code = 33.50 g/dL 32.00-37.50 MCHC) RDW CV (test code = 11.6 % 11.5-14.5 RDW CV) MCH (test code = MCH) 31.6 pg 27.0-32.5 Platelets (test code = 268.0 x10 140.0-440.0 Platelets) MPV (test code = MPV) 10.7 fL N Slide Review (test Auto Auto Result cr eated by code = Slide Review) GL_SJM_ SLIDE_REV_AUTO nRBC (test code = 0 N nRBC) NRBC Abs (test code = 0.00 x10 N NRBC Abs) IPF (test code = IPF) 0 % N Automated [id number] 11:47:07 Test Item Value Reference Range Interpretation Comments Neutro Auto (test code = Neutro 77.8 % 36.0-70.0 H Auto) Lymph Auto (test code = Lymph Auto) 16.4 % 12.0-44.0 Wise Auto (test code = Wise Auto) 4.9 % 0.0-11.0 Eos, Auto (test code = Eos, Auto) 0.2 % 0.0-7.0 Basophil Auto (test code = Basophil 0.3 % 0.0-2.0 Auto) Neutro Absolute (test code = Neutro 7.9 x10 1.6-7.4 H Absolute) Lymph Absolute (test code = Lymph 1.66 x10 .50-4.60 Absolute) Wise Absolute (test code = Wise .50 x10 .00-1.20 Absolute) Eos Absolute (test code = Eos 0.02 x10 0.00-0.74 Absolute) Baso Absolute (test code = Baso 0.03 x10 0.00-0.21 Absolute) IG [id number] 11:47:07 Test Item Value Reference Range Interpretation Comments IG (test code = IG) 0.4 % 0.0-5.0 IG Abs (test code = IG Abs) 0 x10 N XR Chest 1 View [id number] 10:49:13Patient: EWA TREJO Date/Time07/20/2019 10:00 CDTReason for ExamCoughReportLocation code: [id number] 1 viewIndication:Cough.Comparison: noneFindings:The heart and mediastinumare not remarkable.Costophrenic angles are clear.Lungs are clear.Bone is unremarkable for age.Impression:1. No radiographic evidence of acute cardiopulmonary disease. Final Dictated by: MD Roberts Daniel RDictated DT/TM: 07/20/2019 10:48 amSigned by: MD Roberts Daniel RSigned (ElectronicSignature): 07/20/2019 10:49 amUrine [id number] 07:03:28 C Urine Added by GL_SJM_UA_CUL_INDNo growth at 24 hours. No growth at [address] Abdomen and Pelvis w/ [id number] 02:37:55Patient: EWA TREJO Date/Time12/06/2018 02:24 CDTReason for ExamAbdominal painReportCT abdomen and pelvis with IV contrast.Indication: Abdominal pain.Location: O04Zisggbmdik: NoneTechnique: CT images of the abdomen and pelvis were obtained from the diaphragm to the pubic symphysis after the administration of intravenous contrast contrast. Coronal reformats are provided.One or more of the following dose reduction techniques were used: Automated exposure control, adjustment of the mA and/or kV according to patient size, and/or utilization of iterative reconstruction technique. Total DLP: 404.7mGy-cm.Findings:Lungs bases: Unremarkable.Liver: Unremarkable.Gallbladder: There are no radiodense gallstones.Pancreas: Unremarkable.Spleen: Unremarkable.Adrenal glands: There is no adrenal mass.Kidneys: The kidneys appear symmetric without hydronephrosis or calculus.Bowel: There is no evidence of bowel obstruction. The appendix is unremarkable. There is excessive fluid within the colon.Peritoneum: There is no ascites or pneumoperitoneum.Pelvis: The urinary bladder appears smooth walled. The prostate is not enlarged.Vascular: There are mild to moderate arterial atherosclerotic calcifications. There is no abdominal aortic aneurysm.Skeletal: There is no evidence of an acute fracture. Prominent subchondral cysts are identified the right acetabulum.Impression:1. Excessive colonicfluid indicative of diarrhea illness/colitis.2. Mild to moderate arterial atherosclerosis.3. 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 Final Dictated by: MD Mac Robert KDictemmanuel DT/TM: 12/06/2018 2:34 amSigned by: MD Mac Robert KSigned(Electronic Signature): 12/06/2018 2:37 amUrinalysis [id number] 02:19:28 Test Item Value Reference Range Interpretation Comments UA WBC (test code = UA WBC) None Seen 0-5 UA RBC (test code = UA RBC) 0-5 0-5 UA Bacteria (test code = UA Few A Bacteria) UA Squam Epithelial (test code = UA 0-5 Squam Epithelial) Urinalysis with Culture, if [id number] 02:07:26 Test Item Value Reference Range Interpretation Comments UA Color (test code = STRAW Yellow UA Color) UA Appear (test code = CLEAR Clear UA Appear) UA pH (test code = UA 6.5 pH) UA Spec Grav (test code 1.013 1.001-1.035 = UA Spec Grav) UA Glucose (test code = NEG Negative UA Glucose) UA Bili (test code = UA NEG Negative Bili) UA Ketones (test code = NEG Negative UA Ketones) UA Blood (test code = 25 cells/mcL Negative A UA Blood) UA Protein (test code = NEG Negative UA Protein) UA Urobilinogen (test 0.2 mg/dL N code = UA Urobilinogen) UA Nitrite (test code = NEG Negative UA Nitrite) UA Leuk Est (test code NEG Negative = UA Leuk Est) UA Micro Ind? (test Indicated Not Indicated A Result created by code = UA Micro Ind?) rule GL_SJM_UA_MICRO _IN D Comprehensive Metabolic [id number] 01:31:47 Test Item Value Reference Range Interpretation Comments Sodium Level (test code = Sodium 142.0 mmol/L 135.0-145.0 Level) Potassium Level (test code = 4.3 mmol/L 3.5-5.1 Potassium Level) Chloride Level (test code = 103 mmol/L 98-105 Chloride Level) CO2 (test code = CO2) 28 mmol/L 22-29 Anion Gap (test code = Anion 11 mmol/L 7-16 Gap) BUN (test code = BUN) 18.90 mg/dL 6.00-20.00 Creatinine Level (test code = 1.00 mg/dL 0.70-1.20 Creatinine Level) BUN/Creat Ratio (test code = 19 N BUN/Creat Ratio) Glucose Level (test code = 93 mg/dL 70-115 Glucose Level) Calcium Level (test code = 9.7 mg/dL 8.3-10.5 Calcium Level) Alk Phos (test code = Alk Phos) 68 U/L 40-129 Bilirubin Total (test code = 0.3 mg/dL 0.1-0.9 Bilirubin Total) Albumin Level (test code = 4.6 g/dL 3.5-5.2 Albumin Level) Protein Total (test code = 6.9 g/dL 6.4-8.3 Protein Total) ALT (test code = ALT) 23 U/L 1-41 AST (test code = AST) 24 U/L 1-40 Globulin (test code = Globulin) 2.3 g/dL 2.9-3.1 L A/G Ratio (test code = A/G 2.0 ratio N Ratio) Comprehensive Metabolic [id number] 01:31:47 Test Item Value Reference Range Interpretation Comments Sodium Level (test 142.0 mmol/L 135.0-145.0 code = Sodium Level) Potassium Level 4.3 mmol/L 3.5-5.1 (test code = Potassium Level) Chloride Level (test 103 mmol/L 98-105 code = Chloride Level) CO2 (test code = 28 mmol/L 22-29 CO2) Anion Gap (test code 11 mmol/L 7-16 = Anion Gap) BUN (test code = 18.90 mg/dL 6.00-20.00 BUN) Creatinine Level 1.00 mg/dL 0.70-1.20 (test code = Creatinine Level) BUN/Creat Ratio 19 N (test code = BUN/Creat Ratio) Glucose Level (test 93 mg/dL 70-115 code = Glucose Level) Calcium Level (test 9.7 mg/dL 8.3-10.5 code = Calcium Level) Alk Phos (test code 68 U/L 40-129 = Alk Phos) Bilirubin Total 0.3 mg/dL 0.1-0.9 (test code = Bilirubin Total) Albumin Level (test 4.6 g/dL 3.5-5.2 code = Albumin Level) Protein Total (test 6.9 g/dL 6.4-8.3 code = Protein Total) ALT (test code = 23 U/L 1-41 ALT) AST (test code = 24 U/L 1-40 AST) Globulin (test code 2.3 g/dL 2.9-3.1 L = Globulin) A/G Ratio (test code 2.0 ratio N = A/G Ratio) eGFR AA (test code = >60 N eGFR (e stimated eGFR AA) mL/min/1.73 m2 Glomerular Filtration Rate ) is an estimated va lue, calculated from the patient's serum creatinine usin g the MDRD equation. It is NOT the patient 's actual GFR. The eGFR provides a more clinically usef ul measure of kidn ey disease than se rum creatinine alone.This calculation marge es sex and race in to account, if the information is provided. If th e race is not provided, and t he patient is -Sneha n, multiply by 1.2 12. If sex is not provided, and t he patient is fema le, multiply by 0.7 42. Results for pat ients <18 years of ag e have not been validated by th e MDRD study and should be interpreted wit h caution. eGFR R esult Interpretation: eGFR > or = 60 is in the Normal RangeeGF R < 60 may mean kid paula diseaseeGFR < 1 5 may mean kidney failure Rang es recommended by the National Kidney Foundation, http://nkdep.ni h.gov Comprehensive Metabolic [id number] 01:31:47 Test Item Value Reference Range Interpretation Comments Sodium Level (test 142.0 mmol/L 135.0-145.0 code = Sodium Level) Potassium Level 4.3 mmol/L 3.5-5.1 (test code = Potassium Level) Chloride Level (test 103 mmol/L 98-105 code = Chloride Level) CO2 (test code = 28 mmol/L 22-29 CO2) Anion Gap (test code 11 mmol/L 7-16 = Anion Gap) BUN (test code = 18.90 mg/dL 6.00-20.00 BUN) Creatinine Level 1.00 mg/dL 0.70-1.20 (test code = Creatinine Level) BUN/Creat Ratio 19 N (test code = BUN/Creat Ratio) Glucose Level (test 93 mg/dL 70-115 code = Glucose Level) Calcium Level (test 9.7 mg/dL 8.3-10.5 code = Calcium Level) Alk Phos (test code 68 U/L 40-129 = Alk Phos) Bilirubin Total 0.3 mg/dL 0.1-0.9 (test code = Bilirubin Total) Albumin Level (test 4.6 g/dL 3.5-5.2 code = Albumin Level) Protein Total (test 6.9 g/dL 6.4-8.3 code = Protein Total) ALT (test code = 23 U/L 1-41 ALT) AST (test code = 24 U/L 1-40 AST) Globulin (test code 2.3 g/dL 2.9-3.1 L = Globulin) A/G Ratio (test code 2.0 ratio N = A/G Ratio) eGFR AA (test code = >60 N eGFR (e stimated eGFR AA) mL/min/1.73 m2 Glomerular Filtration Rate ) is an estimated va lue, calculated from the patient's serum creatinine usin g the MDRD equation. It is NOT the patient 's actual GFR. The eGFR provides a more clinically usef ul measure of kidn ey disease than se rum creatinine alone.This calculation marge es sex and race in to account, if the information is provided. If th e race is not provided, and t he patient is -Sneha n, multiply by 1.2 12. If sex is not provided, and t he patient is fema le, multiply by 0.7 42. Results for pat ients <18 years of ag e have not been validated by e MDRD study and should be interpreted wit h caution. eGFR R esult Interpretation: eGFR > or = 60 is in the Normal RangeeGF R < 60 may mean kid paula diseaseeGFR < 1 5 may mean kidney failure Rang es recommended by the National Kidney Foundation, http://nkdep.ni h.gov eGFR Non-AA (test >60.00 N eGFR (jesse mated code = eGFR Non-AA) mL/min/1.73 m2 Glomer ular Filtration Rate ) is an estimated va lue, calculated from the patient's serum creatinine usin g the MDRD equation. It is NOT the patient 's actual GFR. The eGFR provides a more clinically usef ul measure of kidn ey disease than se rum creatinine alone.This calculation marge es sex and race in to account, if the information is provided. If th e race is not provided, and t he patient is -Sneha n, multiply by 1.2 12. If sex is not provided, and t he patient is fema le, multiply by 0.7 42. Results for pat ients <18 years of ag e have not been validated by e MDRD study and should be interpreted wit h caution. eGFR R esult Interpretation: eGFR > or = 60 is in the Normal RangeeGF R < 60 may mean kid paula diseaseeGFR < 1 5 may mean kidney failure Rang es recommended by the National Kidney Foundation, http://nkdep.ni h.gov Complete Blood Count with [id number] 01:16:09 Test Item Value Reference Range Interpretation Comments WBC (test code = WBC) 7.5 x10 4.4-10.5 RBC (test code = RBC) 4.95 x10 4.10-5.70 Hgb (test code = Hgb) 15.5 g/dL 13.4-17.4 Hct (test code = Hct) 46.0 % 38.7-52.0 MCV (test code = MCV) 92.90 fL 80.00-100.00 MCHC (test code = 33.70 g/dL 32.00-37.50 MCHC) RDW CV (test code = 11.9 % 11.5-14.5 RDW CV) MCH (test code = MCH) 31.3 pg 27.0-32.5 Platelets (test code = 254.0 x10 140.0-440.0 Platelets) MPV (test code = MPV) 9.9 fL N Slide Review (test Auto Auto Result cr eated by code = Slide Review) GL_SJM_ SLIDE_REV_AUTO nRBC (test code = 0 N nRBC) NRBC Abs (test code = 0.00 x10 N NRBC Abs) IPF (test code = IPF) 0 % N Automated [id number] 01:16:09 Test Item Value Reference Range Interpretation Comments Neutro Auto (test code = Neutro 55.4 % 36.0-70.0 Auto) Lymph Auto (test code = Lymph Auto) 31.6 % 12.0-44.0 Wise Auto (test code = Wise Auto) 9.0 % 0.0-11.0 Eos, Auto (test code = Eos, Auto) 3.2 % 0.0-7.0 Basophil Auto (test code = Basophil 0.4 % 0.0-2.0 Auto) Neutro Absolute (test code = Neutro 4.2 x10 1.6-7.4 Absolute) Lymph Absolute (test code = Lymph 2.38 x10 .50-4.60 Absolute) Wise Absolute (test code = Wise .68 x10 .00-1.20 Absolute) Eos Absolute (test code = Eos 0.24 x10 0.00-0.74 Absolute) Baso Absolute (test code = Baso 0.03 x10 0.00-0.21 Absolute) IG [id number] 01:16:09 Test Item Value Reference Range Interpretation Comments IG (test code = IG) 0.4 % 0.0-5.0 IG Abs (test code = IG Abs) 0 x10 N Urinalysis [id number] 22:28:00 Test Item Value Reference Range Interpretation Comments Color (test code = COLOR) Yellow Yellow,Straw,Pl N yellow Clarity (test code = Clear Clear N CLAR) Specific [place] (test 1.020 1.001-1.035 N code = SPGR) pH (test code = PH) 7.0 5.0-9.0 N Ketone (test code = KET) Negative mg/dL Negative N Glucose (test code = Negative mg/dL Negative N GLUCUR) Protein (test code = Negative mg/dL Negative N PROT) Bilirubin (test code = Negative mg/dL Negative N BILI) Occult Blood (test code = Small Negative A UDOB) Urobilinogen (test code = 0.2 mg/dL 0.2-1.0 N UROB) Nitrite (test code = NIT) Negative Negative N Leuk Esterase (test code Negative Negative N = LEUK) Micros Exam (test code = Indicated MEXAM) Epithelial Cells (test None Seen /LPF 0-30 A code = EPI) WBC, Urine (test code = 0-5 /HPF 0-5 N UWBC) RBC, Urine (test code = 6-10 /HPF 0-5 A URBC) Bacteria (test code = Few /HPF BACT) Urinalysis [id number] 22:51:00 Test Item Value Reference Range Interpretation Comments Color (test code = COLOR) Yellow Yellow,Straw,Pl N yellow Clarity (test code = Clear Clear N CLAR) Specific [place] (test 1.023 1.001-1.035 N code = SPGR) pH (test code = PH) 7.0 5.0-9.0 N Ketone (test code = KET) Negative mg/dL Negative N Glucose (test code = Negative mg/dL Negative N GLUCUR) Protein (test code = Negative mg/dL Negative N PROT) Bilirubin (test code = Negative mg/dL Negative N BILI) Occult Blood (test code = Small Negative A UDOB) Urobilinogen (test code = 0.2 mg/dL 0.2-1.0 N UROB) Nitrite (test code = NIT) Negative Negative N Leuk Esterase (test code Negative Negative N = LEUK) Micros Exam (test code = Indicated MEXAM) Epithelial Cells (test 3-5 /LPF 0-30 A code = EPI) WBC, Urine (test code = 0-5 /HPF 0-5 N UWBC) RBC, Urine (test code = 4-5 /HPF 0-5 A URBC) Bacteria (test code = Few /HPF BACT) US [id number] 22:25:58SCROTAL ULTRASOUNDLOCATION: [id number]: Left testicular pain.COMPARISON: None.TECHNIQUE: Grayscale and color sonographic imaging of the scrotum withlimited Doppler evaluation of the testicles.FINDING S:The right testicle measures 3.5 cm x 2.2 cm x 2.9 cm, and the lefttesticle measures 3.9 cm x 2.2 cm x 3.4 cm. The testicular echotexture,color flow, and Doppler waveforms are normal bilaterally. There is nosolid testicular mass. The epididymal size and echotexture are normalbilaterally. A 1.6 cm thin-walled anechoic cyst/spermatocele is presentin the left epididymis. A small right hydrocele has internal echogenicdebris. There is no varicocele.IMPRESSION:No acute abnormality in the scrotum.Urinalysis [id number] 23:35:00 Test Item Value Reference Range Interpretation Comments Color (test code = COLOR) Yellow Yellow,Straw,Pl N yellow Clarity (test code = Clear Clear N CLAR) Specific [place] (test 1.029 1.001-1.035 N code = SPGR) pH (test code = PH) 7.0 5.0-9.0 N Ketone (test code = KET) Negative mg/dL Negative N Glucose (test code = Negative mg/dL Negative N GLUCUR) Protein (test code = Negative mg/dL Negative N PROT) Bilirubin (test code = Negative mg/dL Negative N BILI) Occult Blood (test code = Trace Negative A UDOB) Urobilinogen (test code = 0.2 mg/dL 0.2-1.0 N UROB) Nitrite (test code = NIT) Negative Negative N Leuk Esterase (test code Negative Negative N = LEUK) Micros Exam (test code = Indicated MEXAM) Epithelial Cells (test None /LPF 0-30 A code = EPI) WBC, Urine (test code = None seen /HPF 0-5 A UWBC) RBC, Urine (test code = None Seen /HPF 0-5 A URBC) Bacteria (test code = Few /HPF BACT) Comprehensive Metabolic [id number] 23:27:00 Test Item Value Reference Range Interpretation Comments Sodium (test code = 140 mmol/L 135-145 N NA) Potassium (test 3.6 mmol/L 3.5-5.1 N code = K) Chloride (test code 103 mmol/L 98-105 N = CL) Carbon Dioxide 24 mmol/L 22-29 N (test code = CO2) Glucose (test code 100 mg/dL 70-115 N = GLU) Blood Urea Nitrogen 32 mg/dL 6-20 H (test code = BUN) Creatinine (test 1.1 mg/dL 0.7-1.2 N code = CREAT) Calcium (test code 9.4 mg/dL 8.3-10.5 N = CA) Prot Total (test 6.8 g/dL 6.4-8.3 N code = TP) Albumin (test code 4.5 g/dL 3.5-5.2 N = ALB) A/G Ratio (test 2.0 Ratio code = AGRATIO) Globulin (test code 2.3 2.9-3.1 L = GLOB) Bili Total (test 0.3 mg/dL 0.1-0.9 N code = TBIL) Alk Phos (test code 55 U/L 40-129 N = APHOS) AST (test code = 18 U/L 1-40 N AST) ALT (test code = 18 U/L 1-41 N ALT) BUN/Creatinine 29.1 Ratio (test code = BCRATIO) Anion Gap (test 13 mmol/L 7-16 N code = AGAP) Estimated GFR (test >60 eGFR (es timated code = GFR) mL/min/1.73m2 Glomerular Chucho tration Rate) is an est imated value,calculate d from the patient's s samuel creatinine usin g the MDRD equation.I t is NOT the patient 's actual GFR. The eGFR provides a more clinicallyusefu l measure of kidn ey disease than se rum creatinine alone.This calculation marge es sex and race into account, if the informationis provided. If th e race is not provided , and the patient isAfrican-Ameri can, multiply by 1.2 12. If sex is not prov ided, and thepatient is female, multipl y by 0.742. Results for patients <18 ye ars ofage have not been validated by th e MDRD study and shoul d be interpretedwith caution.eGFR Re sult Interpretation: eGFR > or = 60 is in t he Normal RangeeGF R < 60 may mean kidney diseaseeGFR < 1 5 may mean kidney failureRange s recommended by the National Kidney Foundation,http ://nkd ep.nih.gov 78442& PELVIS W/O [id number] 23:26:51AFTER HOURS SERVICE ON: 03/13/2017 11:26 PMCT Scan of the Abdomen and Pelvis Without ContrastLocationCode T86Ioaifts: Abd pain-HematuriaTechnique: Axial and reconstructed coronal scans were performed on [facility] scanner pre oral and IV contrast. Study is limited secondary tolack of oral and IV contrast. One or more of the following dose reduction techniques were used:Automated exposure control, adjustment of the mA and/or kV according topatient size, and/or utilization of iterative reconstruction technique.Findings: Liver: Liver is mildly enlarged measuring 17.7 cm.Gallbladder/Biliary: No significant findings. Pancreas: No significant findings. Spleen: No significant findings.Adrenals: No significant findings. Kidneys: No nephrolithiasis or hydronephrosis. Bladder: No significant findings. Bowel:No significant findings. The appendix is unremarkable.Impression:1. No acute findings in the abdomenor pelvis.2. No nephrolithiasis or obstructive biopsy.3. Mild hepatomegaly.CBC with [id number] 23:15:00 Test Item Value Reference Range Interpretation Comments WBC (test code = WBC) 8.1 K/cumm 4.4-10.5 N RBC (test code = RBC) 4.54 M/cumm 4.10-5.70 N Hemoglobin (test code = HGB) 14.0 gm/dL 13.4-17.4 N Hematocrit (test code = HCT) 42.1 % 38.7-52.0 N MCV (test code = MCV) 92.7 fL 80-100 N MCH (test code = MCH) 30.8 pg 27.0-32.5 N MCHC (test code = MCHC) 33.2 g/dL 32.0-37.5 N RDW (test code = RDW) 12.1 % 11.5-14.5 N Platelet Count (test code = 234 K/cumm 140-440 N PLTCT) MPV (test code = MPV) 7.5 fL Diff Method (test code = DIFFM) Auto Neutrophil (test code = NEUT) 57.8 % 36-70 N Lymphocyte (test code = LYMPH) 34.7 % 12-44 N Monocyte (test code = MONO) 5.3 % 0-11 N Eosinophil (test code = EOS) 1.8 % 0-7 N Basophil (test code = BASO) 0.4 % 0-2 N Neutro Abs (test code = ANEUT) 4.7 K/cumm 1.6-7.4 N Lymph Abs (test code = ALYMPH) 2.8 K/cumm 0.5-4.6 N Wise Abs (test code = AMONO) 0.4 K/cumm 0.0-1.2 N Eos Abs (test code = AEOS) 0.15 K/cumm 0.00-0.74 N Baso Abs (test code = ABASO) 0.0 K/cumm 0.00-0.21 N XR chest 1V [facility] [address] [place] [address] Patient Name: Ewa Trejo Medical Record#: [id number] Address: [address] [place] [address] City/State/Zip: [place] [address]: E E/R Physician Insurance: Self Pay /Age/Sex: 1975/45/M Admit/Reg Date: 11/21/[address]: Desmond Hernandez MD Location: [facility]/ PCP: PcpMd SUKHDEEP Gusman Date of Service: 11/21/20 Order (s): XR chest 1V CPT Code: 85053 Report Number: [id number] Reason for Exam: CP EXAMINATION: XR chest 1V CLINICAL INDICATION: Male, 45 years year old with chest pain COMPARISON: None. FINDINGS: Single view(s) of the chest submitted. Support Devices: None. Heart: Cardiac silhouette is normal in size. Mediastinum: Mediastinal contours are normal. Lungs: Pulmonary vessels are normal in size. Lungs are well aerated and clear. Pleura: No pleural effusion is identified. No pneumothorax is present. Bones: Visualized skeleton is normal. IMPRESSION: No acute cardiopulmonary disease. Electronically signed by: Dariusz Couch MD 11/21/2020 6:21 [facility] Dictated By: Dariusz Couch MD 11/21/20500 Signed By: Delfino Couch MD 11/21/20500 TD/TT: 11/21/20 050 Tech: [id number] cc: KRISTINA; PCPNO* PcpMd SUKHDEEP Gusman; Desmond Hernandez MDEKG ED Electrocardiogram [facility] [address] [place] [address] Patient Name: Ewa Trejo Medical Record#: [id number] Address: [address] [place] [address] City/State/Zip: [place] [address]: Matt Diallo MD Insurance: Self Pay /Age/Sex: 1975/45/M Admit/Reg Date: 11/21/[address]: Desmond Hernandez MD Location: [facility]/ PCP: PcpMd SUKHDEEP Gusman Date of Service: 11/21/20 Order (s): EKG ED Electrocardiogram CPT Code: 16922 Report Number: [id number] Reason for Exam: diaphoretic Sinus rhythm Probable left atrial enlargement Summary: Borderline ECG Dictated By: Sher Varghese MD 11/21/20428 Signed By: Sher Varghese MD 11/23/20 1713 TD/TT: 11/21/20428 Tech: [facility] cc: KRISTINA; PCPNO* Pcp-Md SUKHDEEP Isabel; Desmond Hernandez MD Notes Date/Time Note Provider Source 2022-07-22 19:12:00-00:00 [facility] [address] [place] [address] Emergency Department Document Signed Patient: Ewa Terjo Medical Record#: [id number] : 1975 Acct:[id number] Age/Sex: 46 / M Admit/Reg Date: 07/22/22 Loc: [facility] Room: Report Number: [id number]: Isrrael Quinteros MD Arrival - Arrival ED Triage Note: Generalized body aches and sore throat x2 days. Pt denies any CP/SOB, weakness, dizziness, abd pain, N/V at this time. pt aaox3, NAD, VSS. History of Present Illness Primary Care Provider: Denny Magallon Chief Complaint: General Medical Complaint Stated Complaint: Flu Like Symptoms History of Present Illness: 46-year-old male presents wi th complaint of sore throat body aches and burning sensation across his chest since yesterday. He de nies any fever chills, shortness a breath, abdominal pain, vomiting diarrhea. He is not taken fo r symptoms. Nothing makes it better or worse. (Isrrael Quinteros) Allergies/Adverse Reactions: ciprofloxacin Allergy (Verified 07/22/22 19:05) Cramping of the Muscles Review of Systems ROS: Twelve system review was don e and is negative except for as mentioned HPI (Isrrael Quinteros) Past Medical/Surgical History Medical History: Medical History (Last Reviewed 06/19/22 @ 21:25 by MD Eliza Carter, PAC) Depression (Medical) F32.A Schizophrenia (Medical) F20.9 Family/Social History - Family History Family History: reviewed, not pertinent - Social History Living Situation: Private Home Smoking Status: Current everyday tobacco user-he alison smoker Do you drink alcohol: No Current or Hx of Recreational Drug use: Yes Physical Exam Triage Vital Signs: Temperature 37.3 C 07/22/22 19:05 Temperature Source Oral 07/22/22 19:05 Pulse Rate 90 07/22/22 19:05 Respiratory Rate 18 07/22/22 19:05 Blood Pressure 153/80 H 07/22/22 19:05 Blood Pressure Source Automatic Cuff 07/22/22 19 :05 Blood Pressure Mean 104 07/22/22 19:05 O2 Sat by Pulse Oximetry 98 07/22/22 19:05 Oxygen Delivery Method 07/22/22 19:05 Pain Intensity 0 07/22/22 19:05 Physical Exam: I have reviewed the triage vital signs. Const: Well nourished, well developed, no acute distress Eyes: PERRL, no conjunctival injection HENT: NCAT, normal external nose and mouth Neck supple no palpable nodes CV: RRR, Warm, well-perfused extremities RESP: CTAB, Unlabored respiratory effort GI: soft, non-tender, non-distended, no diffuse rigidity MSK: No gross deformities appreciated, no leg ed radha, moves all extremities Skin: Warm, dry. No rashes Neuro: Alert, liquid compounder II-XII odalys ssly intact. Sensation and motor function of extremities grossly intact. Psych: Appropriate mood and affect. (Afuwape,L ukuman O) Results/Orders - Results and Orders Lab Testing Results 07/22/22 19:12: Influenza Type A Ag Negative, In fluenza Type B Ag Positive A 07/22/22 19:12: Group A Strep Screen Negative Medications Ordered: Discontinued Medications Ketorolac Tromethamine (Ketorolac 30 Mg/Ml Inj) 30 mg IM ONCE ONE Stop: 07/22/22 19:11 Last Admin: 07/22/22 19:14 Dose: 30 mg Documented By: ROMARIO MDM/COURSE Vital Signs Temperature 37.3 C 07/22/22 19:05 Pulse Rate 90 07/22/22 19:05 Respiratory Rate 18 07/22/22 19:05 Blood Pressure 153/80 H 07/22/22 19:05 O2 Sat by Pulse Oximetry 98 07/22/22 19:05 Temperature 37.3 C 07/22/22 19:05 Pulse Rate 90 07/22/22 19:05 Respiratory Rate 18 07/22/22 19:05 Blood Pressure 153/80 H 07/22/22 19:05 O2 Sat by Pulse Oximetry 98 07/22/22 19:05 - [facility] Medical decision making narrative: 07/22/22 19:57 Patient presents for sore th roat and body aches. He was swabbed for strep and flu. He is positive for influenza B. symptoms be en present since yesterday. Will give Tamiflu. (Isrrael Quinteros) Discharge Plan - Discharge Clinical Impression: Influenza B Disposition: Home or Self-Care Condition: Good Instructions: The Flu (Influenza) Care Plan Goals: Please follow-up with your [facility] doctor. Please return to emergency room if symptoms worsen or if you have any other concerns. Prescriptions: New oseltamivir [Tamiflu] 75 mg Capsule 75 mg PO BID 5 Days Qty: 10 RF: 0 Prescription Printed No Action acetaminophen 500 mg PO Q6H PRN (Reason: Pain (Scale Score 4- 6)) bacitracin zinc-polymyxin B [Polysporin] 500-10 ,000 unit/gram Ointment 1 applic TOPICAL Q8H Qty: 1 RF: 0 Clindamycin 300 mg PO TID hydroxyzine HCl 50 MG/25 ML solution 50 mg PO Q8H Qty: 12 RF: 0 mirtazapine 15 mg tablet 15 mg PO QHS quetiapine 50 mg PO QAM quetiapine 200 mg PO QHS sulfamethoxazole-trimethoprim [Bactrim DS] 800- 160 mg Tablet 1 tab PO Q12H Qty: 14 RF: 0 Referrals: Denny Magallon MD [Primary Care Provider] - Print Language: Czech - Discharge Data Time Seen by Provider: 07/22/22 18:47 Dictated By: Isrrael Quinteros MD Signed By: Isrrael Quinteros MD 07/22/221956 DD/ 11 TD/TT: 07/22/221911 [employer] Associate: BHANU cc: [id number]* Denny Magallon MD 2021-11-11 10:01:00-00:00 [facility] ([facility]) EMERGENCY PROVIDER REPORT REPORT#:[id number] REPORT STATUS: Signed DATE:11/11/21 TIME: 1001 PATIENT: EWA TREJO UNIT #: [id number] ROOM/BED: AGE: 46 SEX: M PCP PHYS: Undefined Provider SERVICE AUTHOR: Wilbur Segura DO * ALL edits or amendments must be made on the [employer]/computer document * HPI-General Illness Free Text HPI Notes Free Text HPI Notes 46-year-old male past medical history of unknown mental health disorder off of his meds Presents to the ER for evaluation of jerald st pain and suicidal thoughts. patient states that he has been judi ng out of his car for the last several months. Last night he was pulled over by police and he did not have insurance so his car was impounded. He states since that time he started having worsening suicidal thoughts. Patient states he has had thoughts mos t days for the last month. He was seen at [facility] several months ago and given Se roquel and some other psych medications that he has not been taking. Patient states that chest pain has been ongoing for the last da y and has been constant. He denies any shortness of breath. + Methamphetamine use, + smoking, denies EtOH us e Problem is new, acute onset, constant, worsening, not improved by anything prior to arrival. General Initial Greet Date/Time 11/11/21 0911 Presentation Chief Complaint Chest pain Hx Obtained From Patient Review of Systems ROS Statements All systems rev neg except as marked. Review of Systems Constitutional Denies: Chills, Fatigue, Fever. Past Medical History - Adult Stated Complaint CHEST PAIN Allergies Coded Allergies: ciprofloxacin (From CIPRO) (Severe, "DESTROYS NE RVOUS SYSTEM" 01/15/21) Home Medications Discontinued Reported Medications LORazepam (ATIVAN) 1 MG PO BID ALPRAZolam (XANAX) 0.5 MG PO DAILY NAPROXEN (NAPROSYN) 500 MG PO BID PRN PRN PAIN Alcohol Use Alcohol use (occasional) Drug Use "I prefer not to answer" Smoking status for patients 13 years old or olde r: Current every day smoker Physical Exam Vital Signs Vital Signs First Documented: Result Date Time Pulse Ox 98 11/11 0810 B/P 142/72 11/11 0810 B/P Mean 95 11/11 909 O2 Delivery Room air 11/11 909 Temp 98.0 11/11 909 Pulse 90 11/11 909 Resp 18 11/11 909 Last Documented: Result Date Time Pulse Ox 97 11/13 439 B/P 118/81 11/13 439 B/P Mean 93.3 11/13 439 O2 Delivery Room air 11/13 439 Temp 97.7 11/13 439 Pulse 71 11/13 439 Resp 18 11/13 439 Review of Vital Signs Reviewed Physical Exam General/Const General/Const Awake, Alert, Not toxic appearing MS Head Head Atraumatic, Normocephalic Eyes Eyes PERRL, EOMI, No nystagmus Ears/Nose/Throat Ears/Nose/Throat Airway patent, Mucous membrane s moist, Pharynx NL Resp/Chest Respiratory/Chest Breath sounds NL, Breath soun ds = bilat, No respiratory distress Cardiovascular Cardiovascular Heart rate NL, Regular rhythm, H eart sounds NL Abdomen/GI Abdomen/GI Soft, Non-tender, McBurney's non-ten renee Skin Skin No rash, Warm, Dry Genitourinary General Exam deferred Neurologic Neurologic Oriented X3, Speech NL, No motor def icits Psychiatric Psychiatric Affect NL, Mood NL, Judgment/insigh t NL Interpretation Diagnostics Lab Results Interpretation Results Laboratory Tests 11/11/21 161: [Embedded Image Not Available] 11/11/21927: [Embedded Image Not Available] Laboratory Tests: 11/12 11/11 0343 1926 Chemistry Troponin I High Sens (0 - 45 ng/L) < 4 Serology SARS-CoV-2 Ag (Rapid) (Neg) Negative 11/11 161 Chemistry Troponin I High Sens (0 - 45 ng/L) 4 Toxicology Salicylates (2.8 - 20.0 THER MG/DL) < 1.7 L Urine Opiates Screen (<300 NG/ML SCcutoff) NONE DETECTED (NEG) Urine Barbiturates (<200 NG/ML SCcutoff) NONE D ETECTED (NEG) Ur Phencyclidine Scrn (<25 NG/ML SCcutoff) NON E DETECTED (NEG) Ur Amphetamines Screen (<1000 NG/ML SCcutoff) P OSITIVE H U Benzodiazepines Scrn (<200 NG/ML SCcutoff) NO NE DETECTED (NEG) Urine Cocaine Screen (<300 NG/ML SCcutoff) NONE DETECTED (NEG) Urine Cannabinoids (<50 NG/ML SCcutoff) NONE DE TECTED (NEG) 07/07 07/07 1613 0928 Chemistry Sodium (133 - 144 mmol/L) 140.0 Potassium (3.5 - 5.1 mmol/L) 4.3 Chloride (95 - 105 mmol/L) 107 H Carbon Dioxide (21 - 32 mmol/L) 28 Anion Gap (4.0 - 15.0 GAP calc) 5.0 BUN (7 - 18 MG/DL) 17 Creatinine (0.55 - 1.30 MG/DL) 1.24 Glomerular Filtr Rate (>60 estGFR) 63 Glucose (70 - 110 MG/DL) 85 Calcium (8.5 - 10.1 MG/DL) 8.8 Magnesium (1.6 - 2.6 MG/DL) 2.6 Total Bilirubin (0.00 - 1.00 MG/DL) 0.36 Direct Bilirubin (0.00 - 0.30 MG/DL) 0.17 Indirect Bilirubin (0.2 - 1.3 MG/DL) 0.19 L AST (15 - 37 Unit/L) 12 L ALT (12 - 78 Unit/L) 18 Total Alk Phosphatase (45 - 117 Unit/L) 76 B-Natriuretic Peptide (0.00 - 100.00 PG/ML) < 3 0.00 Total Protein (6.4 - 8.2 G/DL) 6.7 Albumin (3.4 - 5.0 G/DL) 3.5 Albumin/Globulin Ratio (1.2 - 2.2 RATIO) 1.1 L Specimen Appearance (1 NORMAL Index/DL) 1 ANSELMO L <2 MG Specimen Hemolysis (1 NORMAL Index/DL) 1 NORMAL <10 MG Hematology WBC (4.1 - 12.1 K/mm3) 8.9 RBC (3.8 - 5.5 M/mm3) 4.68 Hgb (10.6 - 15.8 G/DL) 14.5 Hct (31.8 - 47.4 %) 43.8 MCV (80.1 - 101.1 fL) 93.6 MCH (25.3 - 35.3 pg) 31.0 MCHC (32.7 - 35.1 G/DL) 33.1 RDW (12.2 - 16.4 %) 13.4 Plt Count (155 - 337 K/mm3) 269 MPV (7.6 - 10.4 fL) 11.0 H Toxicology Acetaminophen (10.0 - 30.0 mcG/ML) <2.0 L Ethyl Alcohol (0 - 10 MG/DL) 4 Point of Care Testing Pulse Oximetry Pulse Ox % 98 On: Room air Interpretation Interpreted by me Time 1002 ECG #1 Interpretation ECG Documented in MUSE Yes Date 11/11/21 Time 1002 Interpreted by and reviewed by me NL ECG Interpretation Normal rate, Normal sinus rhythm, No acute ischemic changes, No STEMI Rate 84 Re-Evaluation MDM Free Text MDM Notes Free Text MDM Notes Medically cleared Accepted in transfer for inpt treatment ED Course Medication(s) Ordered Medication(s) Ordered: Central Nervous System Agents Sig/Toma Start time Last Medication Dose Route Stop Time Status Admin Aspirin 325 MG X1ED STA 11/11 910 DC PO 11/12 911 Patient Discharge Departure Vital Signs/Condition Vital Signs First Documented: Result Date Time Pulse Ox 98 11/11 0910 B/P 142/72 11/11 0910 B/P Mean 95 11/11 0910 O2 Delivery Room air 11/11 0910 Temp 98.0 11/11 0910 Pulse 90 11/11 0910 Resp 18 11/11 0910 Last Documented: Result Date Time Pulse Ox 97 07/08 0440 B/P 118/81 07/08 0440 B/P Mean 93.3 07/08 0440 O2 Delivery Room air 07/ 0440 Temp 97.7 07/08 0440 Pulse 71 07/08 0440 Resp 18 /08 0440 All vital signs available at the time of this en try have been reviewed. Clinical Impression Clinical Impression Primary Impression: Suicidal ideation Disposition Decision Transfer )( Request Time 644 )( Request Date 11/12/21 Receiving [facility] )( Acceptance Time 644 )( Acceptance Date 11/12/21 Electronically Signed by Wilbur Segura 11/17/21 at 0036 RPT #:[id number] END OF REPORT 2021-10-08 08:10:00-00:00 [facility] ([facility]) EMERGENCY PROVIDER REPORT REPORT#:[id number] REPORT STATUS: Signed DATE:10/08/21 TIME: 809 PATIENT: EWA TREJO UNIT #: [id number] ROOM/BED: AGE: 45 SEX: M PCP PHYS: Denny Magallon MD SERVICE AUTHOR: Cristina Paz * ALL edits or amendments must be made on the [employer]/computer document * HPI-Abd Pain M 40 and Over General Initial Greet Date/Time 10/08/21 0533 Presentation Chief Complaint Abdominal pain, Nausea Sudden in Onset? No Free Text HPI Notes Free Text HPI Notes Patient is a 45-year-old mal e with no PMH who presents with "several months" of abdominal pain, generalized shaking, nausea (no vomiting), palpitations, and subjective fever. Patient states the pain is mos tly across the lower abdomen but does go to his sides and back as well. Patie nt states symptoms have waxed and waned in intensity during the last several m onths. He has been seen for this previously but in [place]. Patient suspects the symptoms are related to radiation exposure. He state s he has been exposed to radiation by going over to a friend's house because the friend work s for an x-ray company. Patient denies SI/HI or AVH. Patient admits to drinking alcohol occasionally. When asked about drug use, patient reports, "I prefer not t o answer." Risk-Abd Pain M 40 and Over )( Abdominal Aortic Aneurysm Risk factors review ed Review of Systems ROS Statements All systems rev neg except as marked. Free Text ROS Notes Free Text ROS Notes Respiratory: No cough or shortness of breath Cardiovascular: No chest pain Neurologic: No headache, focal deficits or weakn ess Chronic conditions/symptoms are consider ed negative if unchanged from baseline Additional positives and negatives may be presen t in the HPI Past Medical History - Adult Stated Complaint ABDOMINAL PAIN RADIATES TO BACK , NAUSEATED Allergies Coded Allergies: ciprofloxacin (From CIPRO) (Severe, "DESTROYS NE RVOUS SYSTEM" 01/15/21) Home Medications Reported Medications LORazepam (ATIVAN) 1 MG PO BID ALPRAZolam (XANAX) 0.5 MG PO DAILY NAPROXEN (NAPROSYN) 500 MG PO BID PRN PRN PAIN Calculated Suicide Risk (nurs) No risk Pt reports no significant: Past medical history Alcohol Use Alcohol use (occasional) Drug Use "I prefer not to answer" Smoking status for patients 13 years old or older: Current every day smoker (1 ppd) Physical Exam Vital Signs Vital Signs First Documented: Result Date Time Pulse Ox 99 10/08 0525 B/P 119/76 06/03 0525 B/P Mean 90 10/08 524 O2 Delivery Room air 10/08 524 Temp 36.8 10/08 524 Pulse 94 10/08 524 Resp 18 10/08 524 Last Documented: Result Date Time Pulse Ox 99 10/08 524 B/P 119/76 10/08 524 B/P Mean 90 10/08 524 O2 Delivery Room air 10/08 524 Temp 36.8 10/08 524 Pulse 94 10/08 524 Resp 18 10/08 524 Review of Vital Signs Reviewed Additional PE Psychiatric Abnormal Mood/Affect Anxious. Free Text PE Notes Free Text PE Notes GEN: Awake, alert. Well-appearing. Cooperative. HEAD: Atraumatic. Normocephalic. EYES: PERRL. EOMI. No nystagmus. No photophobia. ENT: Airway patent. MMM. Normal pharynx. NECK: Atraumatic. No meningismus. FROM. Nontende r. RESP/CHEST: Breath sounds normal. No respiratory distress. No chest tenderness. CV: RRR. Heart sounds normal. Normal cap refill. ABD/GI: Soft, nontender. BS normoactive. No palp able mass. SKIN: WDI. Normal color. No rash. NEURO: Oriented x3. Clear speech. CN II - XII gr ossly intact. BACK: Atraumatic. Nontender. Interpretation Diagnostics Lab Results Interpretation Results Laboratory Tests 10/08/21624: [Embedded Image Not Available] Laboratory Tests: 10/08 624 Chemistry Sodium (136 - 145 mmol/L) 140 Potassium (3.5 - 5.1 mmol/L) 4.0 Chloride (98 - 107 mmol/L) 110.0 H Carbon Dioxide (21 - 32 mmol/L) 24.0 Anion Gap (10 - 20) 10.0 BUN (7 - 18 mg/dL) 23 H Creatinine (0.7 - 1.3 mg/dL) 0.90 Glomerular Filtr Rate (>=60 mL/min) > 60 BUN/Creatinine Ratio (10 - 20) 24.5 H Glucose (74 - 106 mg/dL) 109 H Calcium (8.5 - 10.1 mg/dL) 9.3 Total Bilirubin (0.0 - 1.0 mg/dL) 0.60 Direct Bilirubin (0.0 - 0.20 mg/dL) 0.20 AST (15 - 37 IUnit/L) 18 ALT (12 - 78 IUnit/L) 19 Total Alk Phosphatase (45 - 117 IUnit/L) 72 Total Protein (6.4 - 8.2 gram/dL) 6.7 Albumin (3.4 - 5.0 g/dL) 4.0 Globulin (2.7 - 4.2 gram/dL) 2.7 Albumin/Globulin Ratio (0.75 - 1.50) 1.5 Lipase (12 - 57 U/L) 32 Hematology WBC (4.5 - 12.5 K/mm3) 8.9 RBC (4.0 - 5.8 mill/mm3) 4.84 Hgb (13.0 - 17.5 gram/dL) 15.4 Hct (42.0 - 52.0 %) 44.4 MCV (80 - 98 fL) 91.7 MCH (27.0 - 33.0 picogram) 31.8 MCHC (33.0 - 36.0 gram/dL) 34.7 RDW (11.6 - 16.2 %) 12.5 Plt Count (150 - 450 K/mm3) 280 MPV (6.7 - 11.0 fL) 10.4 Toxicology Ethyl Alcohol (0.0 - 3.0 mg/dL) < 3 Lab Statement Laboratory studies reviewed and considered in e medical decision-making. Point of Care Testing Pulse Oximetry Pulse Ox % 99 On: Room air Interpretation Interpreted by me, Pulse oximetr y normal ECG #1 Interpretation Date 10/08/21 Time 0558 Interpreted by and reviewed by me NL ECG Interpretation Normal rate (91), Normal sinus rhythm, No acute ischemic changes, No STEMI, Normal QRS Re-Evaluation [facility] )( Re-Evaluation/Progress #1 Text/Dict Note Patient refused to provide a urine sample. Discussed importance of checking for urinary tract infection as cause of patient's sy mptoms. Patient continues to decline. Discussed imaging. Patient refuses any imaging. Patient states he would like to be discharged now. Discussed curre nt results and limitations without the additional testing. Patient voices u nderstanding and agreement. Discharge home. Return precautions given. Time of Re-Eval 0810 )( Re-Eval Status Unchanged ED Course Medication(s) Ordered Medication(s) Ordered: Electrolytic, Caloric, And Boris Sig/Toma Start time Last Medication Dose Route Stop Time Status Admin Sodium Chloride 1,000 ML X1ED STA 10/08 0539 DC / IV 10/08 637 0621 Gastrointestinal Drugs Sig/Toma Start time Last Medication Dose Route Stop Time Status Admin Ondansetron HCl 4 MG X1ED STA 10/08 0438 DC IV 10/08 0539 Patient Discharge Departure Vital Signs/Condition Vital Signs First Documented: Result Date Time Pulse Ox 99 10/08 0525 B/P 119/76 10/08 0525 B/P Mean 90 10/08 0525 O2 Delivery Room air / 0525 Temp 36.8 / 0525 Pulse 94 / 0525 Resp 18 10/08 0525 Last Documented: Result Date Time Pulse Ox 99 / 0525 B/P 119/76 / 0525 B/P Mean 90 / 0525 O2 Delivery Room air 10/08 0525 Temp 36.8 / 0525 Pulse 94 / 0525 Resp 18 10/08 0525 All vital signs available at the time of this en try have been reviewed. Clinical Impression Clinical Impression Primary Impression: Abdominal pain Secondary Impressions: Nausea, Palpitations Disposition Decision Discharge )( Discharged to Home Yes )( Time 0812 )( Date 10/08/21 Discharge/Care Plan Patient Instructions Abdominal Pain Additional Instructions As discussed, there were no significant abnormalities found today. By refusing to provide urine, we are unable to check for inf ection as a possible cause of your discomfort. As such, you are at risk for wo rsening condition if you do have an infection and it goes untreated. Follow- up with your primary doctor. Return at anytime with new or worsening symptoms . Referrals Provider Referral: Denny Magallon MD Address: [id number] [facility] [id number] [place] [address] at [address] [facility] #:[id number] END OF REPORT 2021-01-05 02:45:00-00:00 [facility] ([facility]) EMERGENCY PROVIDER REPORT REPORT#:[id number] REPORT STATUS: Signed DATE:01/05/21 TIME: 0245 PATIENT: EWA TREJO UNIT #: [id number] ROOM/BED: AGE: 45 SEX: M PCP PHYS: Denny Magallon MD SERVICE AUTHOR: Martin Mckeon MD * ALL edits or amendments must be made on the [employer]/computer document * Provider in Triage - Adult Provider in Triage Initial Greet Date/Time 01/04/212148 Clinical Impression Text/Dict Impression Made several attempts to find patient. Called in both lobby several times. Patient appears to have eloped PMH-Provider in Triage Stated Complaint INHALED METH AND FEEL LIKE LIPS ARE BURNING Allergies Coded Allergies: No Known Allergies (01/04/21) Home Medications Reported Medications NAPROXEN (NAPROSYN) 500 MG PO BID PRN PRN PAIN Smoking status: Smoking status for patients 13 years old or old er: Current every day smoker Electronically Signed by Martin Mckeon MD on 0 01/05/21 at 0246 RPT #:[id number] END OF REPORT
[2022-10-10] MEDS ORDERED: IBUPROFEN 400 MG TAB ONE (10:54)
[2022-10-10] MEDS ORDERED: AMOXICILLIN TRIHYDR 250 MG CAP ONE (10:54)
[2022-10-10 10:58] VITALS: BP 121/76; TEMP 98.4; O2SAT 100
== END 2022-10-10 10:53 | disposition home or self-care (01) ==
LOC: ER 10:08
DX: K02.7 Dental root caries (principal); M26.70 Unspecified alveolar anomaly
CPT/HCPCS: 99283

== ENCOUNTER 2022-10-23 14:42 | Emergency (ER) | payer SELFPAY ==
--- OUTSIDE RECORDS SUMMARY | 2022-10-23 15:23 | XMS REPORT | Continuity of Care Document ---
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 [facility] 2-08 (Same as: l 12:53: Ativan) [place] Ativan 2021-05 Yes Notes: [facility] 2-08 (Same as: l 12:53: Ativan) [place] 00 mirtazapine 2021-05 No Notes: Eliecer shannan 2-08 (Same l 03:00: as:Remeron [place] 00 ) mirtazapine 2021-05 No Notes: Eliecer shannan 2-08 (Same l 03:00: as:Remeron [place] 00 ) mirtazapine 2021-05 No Notes: Eliecer shannan 2-08 (Same l 03:00: as:Remeron [place] 00 ) mirtazapine 2021-05 No Notes: Eliecer shannan 2-08 (Same l 03:00: as:Remeron Cheng 00 ) mirtazapine 2021-05 No Notes: Eliecer shannan 2-08 (Same l 03:00: as:Remeron [place] 00 ) mirtazapine 2021-05 No Notes: Eliecer shannan 2-08 (Same l 03:00: as:Remeron Cheng 00 ) mirtazapine 2021-05 No Notes: Eliecer shannan 2-08 (Same l 03:00: as:Remeron [place] 00 ) mirtazapine 2021-05 No Notes: Eliecer shannan 2-08 (Same l 03:00: as:Remeron Cheng 00 ) Xanax 0.5 2021-05 No Notes: Memori a mg oral 2-07 With food l tablet 22:23: or milk [place] 00 (Same as: Xanax) Xanax 0.5 2021-05 [...] With food l tablet 22:23: or milk [place] 00 (Same as: Xanax) Xanax 0.5 2021-05 [...] With food l tablet 22:23: or milk [place] 00 (Same as: Xanax) Xanax 0.5 2021-05 No Notes: [facility] a mg oral 2-07 With food l tablet 22:23: or milk [place] 00 (Same as: Xanax) nicotine 2021-05 No [...] Memoria 2-07 Patch is l 20:00: applied [place] 00 daily to clean, dry, hairless, intact skin on trunk or upper outer arm. Starting dose 10 or less cigarettes /day. Remove old patch before applicatio n of new patch. (Same as Habitrol, Nicoderm WASTE: F/P - P Waste Black; E - P Waste Black nicotine 2021-05 No Notes: [facility] 2-07 Patch is l 20:00: applied [place] 00 daily to clean, dry, hairless, intact [...] Memoria 2-07 Patch is l 20:00: applied [place] 00 daily to clean, dry, hairless, intact [...] [facility]oria 2-07 (Same As: l 15:00: Vitamin [place] 00 B1) polyethylen 2021-05 No Notes: Eliecer shannan e glycol 2-07 Dissolve l 3350 15:00: in 8 oz of Cheng 00 water or juice. (Same as: Miralax) heparin 2021-05 No Notes: [facility] 2-07 porcine l 15:00: heparin [place] 00 folic acid 2021-05 No Notes: Memor [...] l 3350 15:00: in 8 oz of [place] 00 water or juice. (Same as: Miralax) heparin 2021-05 No Notes: [facility] 2-07 porcine l 15:00: heparin Cheng 00 folic acid 2021-05 No Notes: [facility] ia 2-07 (Same as: l 15:00: Folvite) [place] 00 multivitami 2021-05 No Notes: Eliecer shannan n 2-07 (Same l 15:00: as:Thera) [place] 00 WASTE: F/P - Black; E - Municipal Trash Bin Take with food. thiamine 2021-05 No Notes: [facility] 2-07 (Same As: l 15:00: Vitamin Cheng 00 B1) polyethylen 2021-05 No Notes: Eliecer shannan e glycol 2-07 Dissolve l 3350 15:00: in 8 oz of [place] 00 water or juice. (Same as: Miralax) heparin 2021-05 No Notes: [facility] 2-07 porcine l 15:00: heparin [place] 00 folic acid 2021-05 No Notes: [facility] ia 2-07 (Same as: l 15:00: Folvite) [place] 00 multivitami 2021-05 No Notes: Eliecer shannan n 2-07 (Same l 15:00: as:Thera) Cheng 00 WASTE: F/P - Black; E - Municipal Trash Bin Take with food. thiamine 2021-05 No Notes: [facility] 2-07 (Same As: l 15:00: Vitamin [place] 00 B1) polyethylen 2021-05 No Notes: Eliecer shannan e glycol 2-07 Dissolve l 3350 15:00: in 8 oz of Cheng 00 water or juice. (Same as: Miralax) heparin 2021-05 No Notes: [facility] 2-07 porcine l 15:00: heparin [place] 00 folic acid 2021-05 No Notes: [facility] ia 2-07 (Same as: l 15:00: Folvite) Cheng 00 multivitami 2021-05 No Notes: Eliecer shannan n 2-07 (Same l 15:00: as:Thera) [place] 00 WASTE: F/P - Black; E - Municipal Trash Bin Take with food. thiamine 2021-05 No Notes: [facility] 2-07 (Same As: l 15:00: Vitamin [place] 00 B1) polyethylen 2021-05 No Notes: Eliecer shannan e glycol 2-07 Dissolve l 3350 15:00: in 8 oz of [place] 00 water or juice. (Same as: Miralax) heparin 2021-05 No Notes: [facility] 2-07 porcine l 15:00: heparin Cheng 00 folic acid 2021-05 No Notes: [facility] ia 2-07 (Same as: l 15:00: Folvite) Cheng 00 multivitami 2021-05 No Notes: Eliecer shannan n 2-07 (Same l 15:00: as:Thera) [place] 00 WASTE: F/P - Black; E - Municipal Trash Bin Take with food. thiamine 2021-05 No Notes: [facility] 2-07 (Same As: l 15:00: Vitamin Cheng 00 B1) polyethylen 2021-05 No Notes: Eliecer shannan e glycol 2-07 Dissolve l 3350 15:00: in 8 oz of [place] 00 water or juice. (Same as: Miralax) heparin 2021-05 No Notes: [facility] 2-07 porcine l 15:00: heparin [place] 00 folic acid 2021-05 No Notes: [facility] ia 2-07 (Same as: l 15:00: Folvite) [place] 00 multivitami 2021-05 No Notes: Eliecer shannan n 2-07 (Same l 15:00: as:Thera) Cheng 00 WASTE: F/P - Black; E - Municipal Trash Bin Take with food. thiamine 2021-05 No Notes: [facility] 2-07 (Same As: l 15:00: Vitamin [place] 00 B1) polyethylen 2021-05 No Notes: Eliecer shannan e glycol 2-07 Dissolve l 3350 15:00: in 8 oz of [place] 00 water or juice. (Same as: Miralax) heparin 2021-05 No Notes: [facility] 2-07 porcine l 15:00: heparin Cheng 00 folic acid 2021-05 No Notes: [facility] ia 2-07 (Same as: l 15:00: Folvite) [place] 00 multivitami 2021-05 No Notes: Eliecer shannan n 2-07 (Same l 15:00: as:Thera) [place] 00 WASTE: F/P - Black; E - Municipal Trash Bin Take with food. thiamine 2021-05 No Notes: [facility] 2-07 (Same As: l 15:00: Vitamin Cheng 00 B1) morphine 2021-05 No Notes: [facility] Sulfate 2-07 (Same l 10:45: as:MORPhin Cheng 00 e Sulfate) morphine 2021-05 No Notes: [facility] Sulfate 2-07 (Same l 10:45: as:MORPhin [place] 00 e Sulfate) morphine 2021-05 No Notes: [facility] Sulfate 2-07 (Same l 10:45: as:MORPhin [place] 00 e Sulfate) morphine 2021-05 No Notes: [facility] Sulfate 2-07 (Same l 10:45: as:MORPhin [place] 00 e Sulfate) morphine 2021-05 No Notes: [facility] Sulfate 2-07 (Same l 10:45: as:MORPhin [place] 00 e Sulfate) morphine 2021-05 No Notes: [facility] Sulfate 2-07 (Same l 10:45: as:MORPhin Cheng 00 e Sulfate) morphine 2021-05 No Notes: [facility] Sulfate 2-07 (Same l 10:45: as:MORPhin Cheng 00 e Sulfate) morphine 2021-05 No Notes: [facility] Sulfate 2-07 (Same l 10:45: as:MORPhin [place] 00 e Sulfate) LORazepam 2021-05 No Notes: [...] a 2-07 (Same as: l 09:19: Melatonin) [place] melatonin 2021-05 No Notes: Memori a 2-07 (Same as: l 09:19: Melatonin) Cheng melatonin 2021-05 No Notes: [facility] a 2-07 (Same as: l 09:19: Melatonin) [place] Dextrose 2021-05 No 12.5 gm, [facility] ia 50% Syringe 2-07 25 mL, l (D50W) 09:18: Route: [place] 00 IVP, Drug Form: INJ, Dosing Weight 82.727, kg, PRN, PRN Blood Glucose Results, Start date: 04/13/22 3:18:00 DESK ATTENDANT, Duration: 30 day, Stop date: 05/13/22 3:17:00 DESK ATTENDANT, 0 glucagon 2021- No 1 mg, [facility] 2-07 Route: IM, l 09:18: Drug form: Cheng 00 PDR/INJ, PRN, Dosing Weight 82.727, kg, PRN Blood Glucose Results, Start date: 04/13/22 3:18:00 DESK ATTENDANT, Duration: 30 day, Stop date: 05/13/22 3:17:00 DESK ATTENDANT, 0 melatonin 2021-05 No Notes: Memori a 2-07 (Same as: l 09:18: Melatonin) Cheng 00 Dextrose 2021-05 No 12.5 gm, [facility] ia 50% Syringe 2-07 25 mL, l (D50W) 09:18: Route: [place] 00 IVP, Drug Form: INJ, Dosing Weight 82.727, kg, PRN, PRN Blood Glucose Results, Start date: 04/13/22 3:18:00 DESK ATTENDANT, Duration: 30 day, Stop date: 05/13/22 3:17:00 DESK ATTENDANT, 0 glucagon 2021- No 1 mg, [facility] 2-07 Route: IM, l 09:18: Drug form: [place] 00 PDR/INJ, PRN, Dosing Weight 82.727, kg, PRN Blood Glucose Results, Start date: 04/13/22 3:18:00 DESK ATTENDANT, Duration: 30 day, Stop date: 05/13/22 3:17:00 DESK ATTENDANT, 0 melatonin 2021-05 No Notes: Memori a 2-07 (Same as: l 09:18: Melatonin) [place] 00 Dextrose 2021-05 No 12.5 gm, [facility] ia 50% Syringe 2-07 25 mL, l (D50W) 09:18: Route: [place] 00 IVP, Drug Form: INJ, Dosing Weight 82.727, kg, PRN, PRN Blood Glucose Results, Start date: 04/13/22 3:18:00 DESK ATTENDANT, Duration: 30 day, Stop date: 05/13/22 3:17:00 DESK ATTENDANT, 0 glucagon 2021-05 No 1 mg, [facility] 2-07 Route: IM, l 09:18: Drug form: [place] 00 PDR/INJ, PRN, Dosing Weight 82.727, kg, PRN Blood Glucose Results, Start date: 04/13/22 3:18:00 DESK ATTENDANT, Duration: 30 day, Stop date: 05/13/22 3:17:00 DESK ATTENDANT, 0 melatonin 2021-05 No Notes: Memori a 2-07 (Same as: l 09:18: Melatonin) Cheng Dextrose 2021-05 No 12.5 gm, [facility] ia 50% Syringe 2-07 25 mL, l (D50W) 09:18: Route: Cheng 00 IVP, Drug Form: INJ, Dosing Weight 82.727, kg, PRN, PRN Blood Glucose Results, Start date: 04/13/22 3:18:00 DESK ATTENDANT, Duration: 30 day, Stop date: 05/13/22 3:17:00 DESK ATTENDANT, 0 glucagon 2021-05 No 1 mg, [facility] 2-07 Route: IM, l 09:18: Drug form: Cheng 00 PDR/INJ, PRN, Dosing Weight 82.727, kg, PRN Blood Glucose Results, Start date: 04/13/22 3:18:00 DESK ATTENDANT, Duration: 30 day, Stop date: 05/13/22 3:17:00 DESK ATTENDANT, 0 melatonin 2021-05 No Notes: Memori a 2-07 (Same as: l 09:18: Melatonin) Cheng 00 Dextrose 2021-05 No 12.5 gm, [facility] ia 50% Syringe 2-07 25 mL, l (D50W) 09:18: Route: [place] 00 IVP, Drug Form: INJ, Dosing Weight 82.727, kg, PRN, PRN Blood Glucose Results, Start date: 04/13/22 3:18:00 DESK ATTENDANT, Duration: 30 day, Stop date: 05/13/22 3:17:00 DESK ATTENDANT, 0 glucagon 2021- No 1 mg, [facility] 2-07 Route: IM, l 09:18: Drug form: [place] 00 PDR/INJ, PRN, Dosing Weight 82.727, kg, PRN Blood Glucose Results, Start date: 04/13/22 3:18:00 DESK ATTENDANT, Duration: 30 day, Stop date: 05/13/22 3:17:00 DESK ATTENDANT, 0 melatonin 2021-05 No Notes: Memori a 2-07 (Same as: l 09:18: Melatonin) [place] 00 Dextrose 2021-05 No 12.5 gm, [facility] ia 50% Syringe 2-07 25 mL, l (D50W) 09:18: Route: [place] 00 IVP, Drug Form: INJ, Dosing Weight 82.727, kg, PRN, PRN Blood Glucose Results, Start date: 04/13/22 3:18:00 DESK ATTENDANT, Duration: 30 day, Stop date: 05/13/22 3:17:00 DESK ATTENDANT, 0 glucagon 2021- No 1 mg, [facility] 2-07 Route: IM, l 09:18: Drug form: [place] 00 PDR/INJ, PRN, Dosing Weight 82.727, kg, PRN Blood Glucose Results, Start date: 04/13/22 3:18:00 DESK ATTENDANT, Duration: 30 day, Stop date: 05/13/22 3:17:00 DESK ATTENDANT, 0 melatonin 2021-05 No Notes: Memori a 2-07 (Same as: l 09:18: Melatonin) [place] 00 Dextrose 2021-05 No 12.5 gm, Mem[facility] ia 50% Syringe 2-07 25 mL, l (D50W) 09:18: Route: [place] 00 IVP, Drug Form: INJ, Dosing Weight 82.727, kg, PRN, PRN Blood Glucose Results, Start date: 04/13/22 3:18:00 DESK ATTENDANT, Duration: 30 day, Stop date: 05/13/22 3:17:00 DESK ATTENDANT, 0 glucagon 2021- No 1 mg, [facility] 2-07 Route: IM, l 09:18: Drug form: Cheng 00 PDR/INJ, PRN, Dosing Weight 82.727, kg, PRN Blood Glucose Results, Start date: 04/13/22 3:18:00 DESK ATTENDANT, Duration: 30 day, Stop date: 05/13/22 3:17:00 DESK ATTENDANT, 0 melatonin 2021-05 No Notes: Memori a 2-07 (Same as: l 09:18: Melatonin) Dextrose 2021-05 No 12.5 gm, Memor ia 50% Syringe 2- 25 mL, l (D50W) 09:18: Route: [place] 00 IVP, Drug Form: INJ, Dosing Weight 82.727, kg, PRN, PRN Blood Glucose Results, Start date: 04/13/22 3:18:00 DESK ATTENDANT, Duration: 30 day, Stop date: 05/13/22 3:17:00 DESK ATTENDANT, 0 glucagon 2021-05 No 1 mg, Memoria 06-14 Route: IM, l 09:18: Drug form: Cheng PDR/INJ, PRN, Dosing Weight 82.727, kg, PRN Blood Glucose Results, Start date: 04/13/22 3:18:00 DESK ATTENDANT, Duration: 30 day, Stop date: 05/13/22 3:17:00 DESK ATTENDANT, 0 melatonin 2021-05 No Notes: Memori a 2-07 (Same as: l 09:18: Melatonin) Lactated 2021-05 No 1,000 mL, Eliecer shannan Ringers IV 2- Rate: 75 l 1,000 mL 08:49: ml/hr, Cheng 00 Infuse over: 13.3 hr, Route: IV, Dosing Weight 83.182 kg, Total Volume: 1,000, Start date: 04/13/22 2:49:00 DESK ATTENDANT, Duration: 30 day, Stop date: 05/13/22 2:49:00 DESK ATTENDANT, BSA: 2.06 m2, 0 Lactated 2021-05 No 1,000 mL, Eliecer shannan Ringers IV 2- Rate: 75 l 1,000 mL 08:49: ml/hr, Cheng 00 Infuse over: 13.3 hr, Route: IV, Dosing Weight 83.182 kg, Total Volume: 1,000, Start date: 04/13/22 2:49:00 DESK ATTENDANT, Duration: 30 day, Stop date: 05/13/22 2:49:00 DESK ATTENDANT, BSA: 2.06 m2, 0 Lactated 2022-1 No 1,000 mL, Eliecer shannan Ringers IV 2-07 Rate: 75 l 1,000 mL 08:49: ml/hr, [place] 00 Infuse over: 13.3 hr, Route: IV, Dosing Weight 83.182 kg, Total Volume: 1,000, Start date: 04/13/22 2:49:00 DESK ATTENDANT, Duration: 30 day, Stop date: 05/13/22 2:49:00 DESK ATTENDANT, BSA: 2.06 m2, 0 Lactated 2022-1 No 1,000 mL, Eliecer shannan Ringers IV 2-07 Rate: 75 l 1,000 mL 08:49: ml/hr, Cheng 00 Infuse over: 13.3 hr, Route: IV, Dosing Weight 83.182 kg, Total Volume: 1,000, Start date: 04/13/22 2:49:00 DESK ATTENDANT, Duration: 30 day, Stop date: 05/13/22 2:49:00 DESK ATTENDANT, BSA: 2.06 m2, 0 Lactated 2022-1 No 1,000 mL, Eliecer shannan Ringers IV 2-07 Rate: 75 l 1,000 mL 08:49: ml/hr, [place] 00 Infuse over: 13.3 hr, Route: IV, Dosing Weight 83.182 kg, Total Volume: 1,000, Start date: 04/13/22 2:49:00 DESK ATTENDANT, Duration: 30 day, Stop date: 05/13/22 2:49:00 DESK ATTENDANT, BSA: 2.06 m2, 0 Lactated 2022-1 No 1,000 mL, Eliecer shannan Ringers IV 2-07 Rate: 75 l 1,000 mL 08:49: ml/hr, [place] 00 Infuse over: 13.3 hr, Route: IV, Dosing Weight 83.182 kg, Total Volume: 1,000, Start date: 04/13/22 2:49:00 DESK ATTENDANT, Duration: 30 day, Stop date: 05/13/22 2:49:00 DESK ATTENDANT, BSA: 2.06 m2, 0 Lactated 2022-1 No 1,000 mL, Eliecer shannan Ringers IV 2-07 Rate: 75 l 1,000 mL 08:49: ml/hr, Cheng 00 Infuse over: 13.3 hr, Route: IV, Dosing Weight 83.182 kg, Total Volume: 1,000, Start date: 04/13/22 2:49:00 DESK ATTENDANT, Duration: 30 day, Stop date: 05/13/22 2:49:00 DESK ATTENDANT, BSA: 2.06 m2, 0 Lactated 2021-05 No 1,000 mL, Eliecer shannan Ringers IV 06-14 Rate: 75 l 1,000 mL 08:49: ml/hr, Cheng 00 Infuse over: 13.3 hr, Route: IV, Dosing Weight 83.182 kg, Total Volume: 1,000, Start date: 04/13/22 2:49:00 DESK ATTENDANT, Duration: 30 day, Stop date: 05/13/22 2:49:00 DESK ATTENDANT, BSA: 2.06 m2, 0 Valium 2021- No 10 mg, [facility]oria 2-07 Route: PO, l 08:13: Drug form: [place] 00 TAB, ONCE, Dosing Weight 82.727, kg, Priority: STAT, Start date: 04/13/22 2:13:00 DESK ATTENDANT, Stop date: 04/13/22 2:13:00 DESK ATTENDANT Valium 2021-1 No 10 mg, Memoria 2-07 Route: PO, l 08:13: Drug form: [place] 00 TAB, ONCE, Dosing Weight 82.727, kg, Priority: STAT, Start date: 04/13/22 2:13:00 DESK ATTENDANT, Stop date: 04/13/22 2:13:00 DESK ATTENDANT Valium 2-1 No 10 mg, [facility] 2-07 Route: PO, l 08:13: Drug form: Cheng 00 TAB, ONCE, Dosing Weight 82.727, kg, Priority: STAT, Start date: 04/13/22 2:13:00 DESK ATTENDANT, Stop date: 04/13/22 2:13:00 DESK ATTENDANT Valium 2021-1 No 10 mg, [facility] 2-07 Route: PO, l 08:13: Drug form: Cheng 00 TAB, ONCE, Dosing Weight 82.727, kg, Priority: STAT, Start date: 04/13/22 2:13:00 DESK ATTENDANT, Stop date: 04/13/22 2:13:00 DESK ATTENDANT Valium 2021-1 No 10 mg, [facility] 2-07 Route: PO, l 08:13: Drug form: [place] 00 TAB, ONCE, Dosing Weight 82.727, kg, Priority: STAT, Start date: 04/13/22 2:13:00 DESK ATTENDANT, Stop date: 04/13/22 2:13:00 DESK ATTENDANT Valium 2021-1 No 10 mg, [facility] 2-07 Route: PO, l 08:13: Drug form: [place] 00 TAB, ONCE, Dosing Weight 82.727, kg, Priority: STAT, Start date: 04/13/22 2:13:00 DESK ATTENDANT, Stop date: 04/13/22 2:13:00 DESK ATTENDANT Valium 2021-1 No 10 mg, Memoria -07 Route: PO, l 08:13: Drug form: [place] 00 TAB, ONCE, Dosing Weight 82.727, kg, Priority: STAT, Start date: 04/13/22 2:13:00 DESK ATTENDANT, Stop date: 04/13/22 2:13:00 DESK ATTENDANT Valium 2021-1 No 10 mg, [facility]oria 06-14 Route: PO, l 08:13: Drug form: Cheng 00 TAB, ONCE, Dosing Weight 82.727, kg, Priority: STAT, Start date: 04/13/22 2:13:00 DESK ATTENDANT, Stop date: 04/13/22 2:13:00 DESK ATTENDANT acetaminoph 2021-05 No 1,000 mg, M emoria en 06-14 Route: PO, l 06:38: Drug form: Cheng 00 TAB, ONCE, Dosing Weight 82.727, kg, Priority: STAT, Start date: 04/13/22 0:38:00 DESK ATTENDANT, Stop date: 04/13/22 0:38:00 DESK ATTENDANT Isolyte S 2021-05 No Notes: Memori a PH-7.4 2- (Same as: l (Bolus) IV 06:38: Isolyte S He rm 00 PH7.4, Normosol-R PH 7.4, Plasma-Lyt e A ) acetaminoph 2021-05 No 1,000 mg, M emoria en 06-14 Route: PO, l 06:38: Drug form: Cheng 00 TAB, ONCE, Dosing Weight 82.727, kg, Priority: STAT, Start date: 04/13/22 0:38:00 DESK ATTENDANT, Stop date: 04/13/22 0:38:00 DESK ATTENDANT Isolyte S 2021-05 No Notes: Memori a PH-7.4 2-07 (Same as: l (Bolus) IV 06:38: Isolyte S He rmann 00 PH7.4, Normosol-R PH 7.4, Plasma-Lyt e A ) acetaminoph 2021-05 No 1,000 mg, M emoria en 06-14 Route: PO, l 06:38: Drug form: [place] 00 TAB, ONCE, Dosing Weight 82.727, kg, Priority: STAT, Start date: 04/13/22 0:38:00 DESK ATTENDANT, Stop date: 04/13/22 0:38:00 DESK ATTENDANT Isolyte S 2021-05 No Notes: Memori a PH-7.4 2- (Same as: l (Bolus) IV 06:38: Isolyte S He rmann 00 PH7.4, Normosol-R PH 7.4, Plasma-Lyt e A ) acetaminoph 2021-05 No [facility]000 [facility]: [facility], l 06:38: Drug form: [place] 00 TAB, ONCE, Dosing Weight 82.727, kg, Priority: STAT, Start date: 04/13/22 0:38:00 DESK ATTENDANT, Stop date: 04/13/22 0:38:00 DESK ATTENDANT Isolyte S 2021-05 No Notes: Memori a PH-7.4 2- (Same as: l (Bolus) IV 06:38: Isolyte S He rmann 00 PH7.4, Normosol-R PH 7.4, Plasma-Lyt e A ) acetaminoph 2021-05 No 1,000 mg, emoria en 06-14 Route: PO, l 06:38: Drug form: [place] 00 TAB, ONCE, Dosing Weight 82.727, kg, Priority: STAT, Start date: 04/13/22 0:38:00 DESK ATTENDANT, Stop date: 04/13/22 0:38:00 DESK ATTENDANT Isolyte S 2021-05 No Notes: Memori a PH-7.4 2-07 (Same as: l (Bolus) IV 06:38: Isolyte S He rmann 00 PH7.4, Normosol-R PH 7.4, Plasma-Lyt e A ) acetaminoph 2021-05 No 1,000 mg, [facility]: PO, l 06:38: Drug form: [place] 00 TAB, ONCE, Dosing Weight 82.727, kg, Priority: STAT, Start date: 04/13/22 0:38:00 DESK ATTENDANT, Stop date: 04/13/22 0:38:00 DESK ATTENDANT Isolyte S 2021-05 No Notes: Memori a PH-7.4 2-07 (Same as: l (Bolus) IV 06:38: Isolyte S He rmann 00 PH7.4, Normosol-R PH 7.4, Plasma-Lyt e A ) acetaminoph 2021-05 No [facility],000 mg, [facility]: PO, l 06:38: Drug form: Cheng 00 TAB, ONCE, Dosing Weight 82.727, kg, Priority: STAT, Start date: 04/13/22 0:38:00 DESK ATTENDANT, Stop date: 04/13/22 0:38:00 DESK ATTENDANT Isolyte S 2021-05 No Notes: Memori a PH-7.4 2-07 (Same as: l (Bolus) IV 06:38: Isolyte S He rmann 00 PH7.4, Normosol-R PH 7.4, Plasma-Lyt e A ) acetaminoph 2021-05 No 1,000 mg, [facility]: PO, l 06:38: Drug form: Cheng 00 TAB, ONCE, Dosing Weight 82.727, kg, Priority: STAT, Start date: 04/13/22 0:38:00 DESK ATTENDANT, Stop date: 04/13/22 0:38:00 DESK ATTENDANT Isolyte S 2021-05 No Notes: Memori a [...] as: l (Bolus) IV 06:37: Isolyte S Joe rmann 00 PH7.4, Normosol-R PH 7.4, Plasma-Lyt [...] as: l (Bolus) IV 06:37: Isolyte S Joe rmann 00 PH7.4, Normosol-R PH 7.4, Plasma-Lyt e A ) ibuprofen 2021-05 No 600 mg, Memor ia 2-07 Route: PO, l 06:34: Drug form: [place] 00 TAB, ONCE, Dosing Weight 82.727, kg, Priority: STAT, Start date: 04/13/22 0:34:00 DESK ATTENDANT, Stop date: 04/13/22 0:34:00 DESK ATTENDANT ibuprofen 2-1 No 600 mg, [facility] ia 2-07 Route: PO, l 06:34: Drug form: Cheng 00 TAB, ONCE, Dosing Weight 82.727, kg, Priority: STAT, Start date: 04/13/22 0:34:00 DESK ATTENDANT, Stop date: 04/13/22 0:34:00 DESK ATTENDANT ibuprofen 2022-1 No 600 mg, [facility] ia 2-07 Route: PO, l 06:34: Drug form: Cheng 00 TAB, ONCE, Dosing Weight 82.727, kg, Priority: STAT, Start date: 04/13/22 0:34:00 DESK ATTENDANT, Stop date: 04/13/22 0:34:00 DESK ATTENDANT ibuprofen 2021-1 No 600 mg, [facility] 2-07 Route: PO, l 06:34: Drug form: Cheng 00 TAB, ONCE, Dosing Weight 82.727, kg, Priority: STAT, Start date: 04/13/22 0:34:00 DESK ATTENDANT, Stop date: 04/13/22 0:34:00 DESK ATTENDANT ibuprofen 2-1 No 600 mg, [facility] ia 2-07 Route: PO, l 06:34: Drug form: Cheng 00 TAB, ONCE, Dosing Weight 82.727, kg, Priority: STAT, Start date: 04/13/22 0:34:00 DESK ATTENDANT, Stop date: 04/13/22 0:34:00 DESK ATTENDANT ibuprofen 2-1 No 600 mg, [facility] 2-07 Route: PO, l 06:34: Drug form: [place] 00 TAB, ONCE, Dosing Weight 82.727, kg, Priority: STAT, Start date: 04/13/22 0:34:00 DESK ATTENDANT, Stop date: 04/13/22 0:34:00 DESK ATTENDANT ibuprofen 2021-1 No 600 mg, [facility] 2-07 Route: PO, l 06:34: Drug form: [place] 00 TAB, ONCE, Dosing Weight 82.727, kg, Priority: STAT, Start date: 04/13/22 0:34:00 DESK ATTENDANT, Stop date: 04/13/22 0:34:00 DESK ATTENDANT ibuprofen 2022-1 No 600 mg, [facility] ia 2-07 Route: PO, l 06:34: Drug form: [place] 00 TAB, ONCE, Dosing Weight 82.727, kg, Priority: STAT, Start date: 04/13/22 0:34:00 DESK ATTENDANT, Stop date: 04/13/22 0:34:00 DESK ATTENDANT Protonix 0 No Notes: Memoria 8-22 Tablet l 18:00: should not Cheng 00 be chewed or crushed. (Same as: Protonix) Protonix 0 No Notes: Memoria 8-22 Tablet l 18:00: should not Cheng 00 be chewed or crushed. (Same as: Protonix) Protonix 0 No Notes: Memoria 8-22 Tablet l 18:00: should not [place] 00 be chewed or crushed. (Same as: Protonix) Protonix 0 No Notes: Memoria 8-22 Tablet l 18:00: should not Cheng 00 be chewed or crushed. (Same as: Protonix) Protonix 0 No Notes: Memoria 8-22 Tablet l 18:00: should not Cheng 00 be chewed or crushed. (Same as: Protonix) Protonix 0 No Notes: Memoria 8-22 Tablet l 18:00: should not [place] 00 be chewed or crushed. (Same as: Protonix) Protonix 0 No Notes: Memoria 8-22 Tablet l 18:00: should not Cheng 00 be chewed or crushed. (Same as: Protonix) Protonix 2021-0 No Notes: Memoria 8-22 Tablet l 18:00: should not [place] 00 be chewed or crushed. (Same as: Protonix) Protonix 0 No Notes: Memoria 8-22 Tablet l 18:00: should not [place] 00 be chewed or crushed. (Same as: Protonix) Protonix 2021-0 No Notes: Memoria 8-22 Tablet l 18:00: should not Cheng 00 be chewed or crushed. (Same as: Protonix) Protonix 2021-0 No Notes: Memoria 8-22 Tablet l 18:00: should not [place] 00 be chewed or crushed. (Same as: Protonix) Protonix 2021-0 No Notes: Memoria 8-22 Tablet l 18:00: should not [place] 00 be chewed or crushed. (Same as: [...] omeprazole 2022-0 No 20 mg, Memor ia 8 Route: PO, l 15:20: Daily, Dosing Weight [...] ia 8- Route: PO, l 15:20: Daily, [place] 00 Dosing Weight 79.545, kg, Start date: 12/27/21 [...] 03:01: Atarax) Cheng 00 Avoid alcohol. hydrOXYzine Yes Notes: Eliecer shannan 8-22 (Same as: l 03:01: Atarax) Cheng Avoid alcohol. hydrOXYzine Yes Notes: Eliecer shannan 8-22 (Same as: l 03:01: Atarax) [place] 00 Avoid alcohol. hydrOXYzine Yes Notes: Eliecer shannan 8-22 (Same as: l 03:01: Atarax) Cheng Avoid alcohol. hydrOXYzine Yes Notes: Eliecer shannan 8-22 (Same as: l 03:01: Atarax) Cheng Avoid alcohol. hydrOXYzine Yes Notes: Eliecer shannan 8-22 (Same as: l 03:01: Atarax) Cheng Avoid alcohol. hydrOXYzine Yes Notes: Eliecer shannan 8-22 (Same as: l 03:01: Atarax) [place] Avoid alcohol. hydrOXYzine Yes Notes: Eliecer shannan 8-22 (Same as: l 03:01: Atarax) [place] 00 Avoid alcohol. hydrOXYzine Yes Notes: Eliecer shannan 8-22 (Same as: l 03:01: Atarax) [place] 00 Avoid alcohol. hydrOXYzine No Notes: Eliecer [...] 200mg QD Take 1 [facility] (SEROqueL) 6-02 11-[address] 200 MG 00:00: 04:59 (200 mg [facility] tablet 00 :00 total) by l mouth nightly for 30 days. QUEtiapine 2021-0 2- No 200mg QD Take 1 [facility] (SEROqueL) 6- 07-[address] 200 MG 00:00: 04:59 (200 mg [facility]osp[facility] tablet 00 :00 total) by l mouth nightly for 30 days. QUEtiapine No 200mg QD Take 1 [facility] (SEROqueL) 10-15- tablet st 200 MG 00:00: 04:59 (200 mg [facility]ospita tablet 00 :00 total) by l mouth nightly for 30 days. famotidine No 20mg QD Take 1 Meth leo (PEPCID) 20 01-10- tablet (20 s t MG tablet 00:00: 04:59 mg total) Ho [facility] 00 :00 by mouth l daily for 30 days. dicyclomine No 20mg Q.5D Take 1 [facility] (BENTYL) 20 01-10 09-16 tablet (20 s t mg tablet 00:00: 04:59 mg total) [facility] 00 :00 by mouth 2 l (two) times a day for 10 days. DULoxetine 2020- No 30mg QD Take 1 [facility] (Cymbalta) 12-29-[address] 30 MG 00:00: 04:59 (30 mg Hospita capsule 00 :00 total) by l mouth daily for 30 days. DULoxetine 2020- No 30mg QD Take 1 Meth leo (Cymbalta) 12-28 08-[address] 30 MG 00:00: 00:00 (30 [...] No Cellulitis 500mg Take 1 Manning (KEFLEX) 12-0406 of left capsule by H ealth 500 mg 00:00: 23:59 lower mouth 4 capsule 00 :00 extremity times daily for 7 days. cephALEXin 0 2020- No Cellulitis 500mg Take 1 [facility] (KEFLEX) 12-04 of left capsule by H ealth 500 mg 00:00: 23:59 lower mouth 4 capsule 00 :00 extremity times daily for 7 days. chlorproMAZ 2020-0 Yes Major 25mg Q.5D Take 1 Asaf ris INE 7-22 depressive tablet by Heal (THORAZINE) 00:00: disorder, mouth 2 25 mg 00 single times tablet episode daily. with anxious distress chlorproMAZ 2020-0 Yes Major 25mg Q.5D Take 1 Asaf ris INE 7-22 depressive tablet by [facility]al (THORAZINE) 00:00: disorder, mouth 2 25 mg 00 single times tablet episode daily. with anxious distress nystatin 2020- No 1{tbl} Take 1 Rahul is 500,000 11-25 tablet by Health unit tablet 16:28: 00:00 mouth 32 :00 every morning. metoprolol 2020- No 12.5mg Take 12.5 Mnaning tartrate 11-25-21 mg by Health (LOPRESSOR) 16:28: 00:00 mouth. 25 mg 32 :00 tablet ALPRAZolam 2020- No 1mg Q.5D Take 1 mg H arris (XANAX) 1 11-25 by mouth 2 Hea lth mg tablet 16:28: 00:00 (two) 32 :00 times a day. nystatin 2020- No 1{tbl} Take 1 Rahul is 500,000 11-25 tablet by Health unit tablet 16:28: 00:00 mouth 32 :00 every morning. metoprolol 2020- No 12.5mg Take 12.5 Manning tartrate 11-25- mg by Health (LOPRESSOR) 16:28: 00:00 mouth. 25 mg 32 :00 tablet ALPRAZolam 2020- No 1mg Q.5D Take 1 mg H arris (XANAX) 1 11-25 by mouth 2 [facility] l[facility] mg tablet 16:28: 00:00 (two) 32 :00 times a day. hydrOXYzine Yes Major 50mg Take 1 Asaf ris (ATARAX) 50 - depressive tablet by Health mg tablet 00:00: disorder, mouth 00 single every 4 episode hours as with needed for anxious Anxiety. distress amitriptyli Yes Major 50mg Take 1 Asaf ris ne (ELAVIL) - depressive tablet by Health 50 mg 00:00: disorder, mouth tablet 00 single nightly at episode bedtime as with needed for anxious Sleep. distress chlorproMAZ Yes Major 100mg Take 1 Soriano rris INE 7- depressive tablet by [facility] th (THORAZINE) 00:00: disorder, mouth at 100 mg 00 single bedtime tablet episode nightly. with anxious distress hydrOXYzine Yes Major 50mg Take 1 Asaf ris (ATARAX) 50 - depressive tablet by Health mg tablet 00:00: disorder, mouth 00 single every 4 episode hours as with needed for anxious Anxiety. distress amitriptyli Yes Major 50mg Take 1 Asaf ris ne (ELAVIL) 11-25 depressive tablet by [facility] 50 mg 00:00: disorder, mouth tablet 00 single nightly at episode bedtime as with needed for anxious Sleep. distress chlorproMAZ Yes Major 100mg Take 1 Soriano rris INE 11-25 depressive tablet by [facility] (THORAZINE) 00:00: disorder, mouth at 100 mg 00 single bedtime tablet episode nightly. with anxious distress mirtazapine 2020- No Depression, 15mg Take 1 Manning (REMERON) 10-29 unspecified tablet by [facility] 15 mg 00:00: 00:00 depression mouth at tablet 00 :00 type bedtime nightly Half pill at bed time for three days and then one pill at bed time.. mirtazapine 2020- No Depression, 15mg Take 1 Manning (REMERON) 10-29 unspecified tablet by [facility] 15 mg 00:00: 00:00 depression mouth at tablet 00 :00 type bedtime nightly Half pill at bed time for three days and then one pill at bed time.. hydrOXYzine 2020- No 50mg Take 1 Asaf ris (ATARAX) 50 10-28 tablet by alth mg tablet 00:00: 00:00 mouth 2 00 :00 times daily as needed for up to 90 days for Anxiety. hydrOXYzine 2020- No 50mg Take 1 Asaf ris (ATARAX) 50 10-28 tablet by alth mg tablet 00:00: 00:00 mouth 2 00 :00 times daily as needed for up to 90 days for Anxiety. sertraline 2020- No 50mg QD Take 1 Rahul is (ZOLOFT) 50 10-28 tablet by alth mg tablet 00:00: 00:00 mouth 00 :00 daily. sertraline 2020- No 50mg QD Take 1 Rahul is (ZOLOFT) 50 10-28 tablet by alth mg tablet 00:00: 00:00 mouth 00 :00 daily. clonazePAM 2020- No 1mg Take 1 mg H arris (KLONOPIN) 10-15 by mouth 2 He alth 1 mg tablet 00:08: 00:00 times 45 :00 daily as needed for Anxiety. clonazePAM 2020- No 1mg Take 1 mg H arris (KLONOPIN) 10-15 by mouth. Hea lth 1 mg tablet 00:08: 00:00 45 :00 clonazePAM 2020- No 1mg Take 1 mg H arris (KLONOPIN) 10-15 by mouth 2 He alth 1 mg tablet 00:08: 00:00 times 45 :00 daily as needed for Anxiety. clonazePAM 2020- No 1mg Take 1 mg H arris (KLONOPIN) 10-15 by mouth. Hea lth 1 mg tablet 00:08: 00:00 45 :00 traZODone 2020- No Insomnia, 50mg Take 1 Manning (DESYREL) 10-15 unspecified tablet by Health 50 mg 00:00: 00:00 type mouth at tablet 00 :00 bedtime nightly. traZODone 2020- No Insomnia, 50mg Take 1 Manning (DESYREL) 10-15 unspecified tablet by Health 50 mg 00:00: 00:00 type mouth at tablet 00 :00 bedtime nightly. sertraline 2020- No Anxiety 50mg QD Take 1 H arris (ZOLOFT) 50 -04 11- disorder, tablet by Health mg tablet 00:00: 00:00 unspecified mouth 00 :00 type daily. sertraline 2020- No Anxiety 50mg QD Take 1 H arris (ZOLOFT) 50 5-30 -23 disorder, tablet by Health mg tablet 00:00: [...] machinery if sedated during the day.. QUEtiapine 0 2020- No Mood Take half H arris (SEROQUEL) 10-02 06-10 disorder tab by He alth 25 mg [...] 2022-08-27 03:52:18 115 mm[Hg] Method ist pressure [facility] Diastolic blood 2022-08-27 03:52:18 71 mm[Hg] [facility] Heart rate 2022-08-27 03:52:18 84 /[facility] Body temperature 2022-08-27 03:52:18 36.39 Jeanette [facility] Respiratory rate 2022-08-27 03:52:18 18 /min [facility] Oxygen saturation in 2022-08-27 03:52:18 99 /min [facility] Arterial blood by [facility] Pulse oximetry [facility] 2022-06-18 08:00:00 6 [ft_i] [facility] BMI Calculated 2022-06-18 08:00:00 [facility] Weight 2022-06-18 08:00:00 [facility] Systolic (mm Hg) 2022-06-18 08:00:00 Eliecer rial [place] Diastolic (mm Hg) 2022-06-18 08:00:00 Mem orial Cheng Heart [facility]22-06-18 [facility] 2022-06-18 08:00:00 97.6 F [facility] Body height 2022-05-27 13:01:00 182.9 cm [facility] Body weight 2022-05-27 13:01:00 82.555 kg [facility] BMI 2022-05-27 13:01:00 24.68 kg/m2 [facility] Systolic (mm Hg) 2022-05-05 21:05:00 Eliecer rial [place] Diastolic (mm Hg) 2022-05-05 21:05:00 Mem orial [place] Temperature Oral (F) 2022-05-05 21:05:00 97.7 F [facility] [place] Respitory Rate 2022-05-05 21:05:00 [facility] Heart Rate 2022-05-05 09:00:00 [facility] Respitory Rate 2022-05-05 09:00:00 [facility] [place] Systolic (mm Hg) 2022-05-05 09:00:00 Eliecer rial [place] Diastolic (mm Hg) 2022-05-05 09:00:00 Mem o[facility] [place] Respitory Rate 2022-05-05 05:00:00 [facility] [place] Systolic (mm Hg) 2022-05-05 05:00:00 Eliecer rial [place] Diastolic (mm Hg) 2022-05-05 05:00:00 Mem [facility]rial [place] Heart Rate 2022-05-05 05:00:00 [facility] Heart Rate 2022-05-05 01:00:00 [facility] [place] Temperature Oral (F) 2022-05-04 11:55:00 97.9 F [facility] Temperature Oral (F) 2022-05-04 08:17:00 98.3 F [facility] Height 2022-05-04 03:06:00 182.88 cm [facility] BMI Calculated 2022-05-04 03:06:00 [facility] Weight 2022-05-04 03:06:00 [facility] [place] Systolic (mm Hg) 2022-04-21 23:06:00 Eliecer rial Cheng Diastolic (mm Hg) 2022-04-21 23:06:00 Mem o[facility] [place] Temperature Oral (F) 2022-04-21 23:06:00 99 F [facility] [place] Heart Rate 2022-04-21 23:06:00 [facility] [place] Systolic (mm Hg) 2022-04-21 18:09:00 Eliecer rial [place] Diastolic (mm Hg) 2022-04-21 18:09:00 Mem orial [place] Temperature Oral (F) 2022-04-21 18:09:00 97 F [facility] [place] Heart Rate 2022-04-21 14:05:07 [facility] Respitory Rate 2022-04-21 14:05:07 [facility] Temperature Oral (F) 2022-04-21 14:04:38 97.8 F [facility] Systolic (mm Hg) 2022-04-21 14:04:37 Eliecer rial Cheng Diastolic (mm Hg) 2022-04-21 14:04:37 Mem [facility] [place] Heart Rate 2022-04-21 14:04:37 [facility] [place] Respitory Rate 2022-04-21 10:44:16 [facility] Temperature Oral (F) 2022-04-21 10:43:52 97.5 F [facility] [place] Respitory Rate 2022-04-21 06:17:39 [facility] Height 2022-04-13 17:39:00 182.88 cm [facility] Weight 2022-04-13 17:39:00 [facility] [place] BMI Calculated 2022-04-13 17:39:00 [facility] [place] Height 2022-04-13 02:51:00 182.88 cm [facility] [place] BMI Calculated 2022-04-13 02:51:00 [facility] [place] Weight 2022-04-13 02:51:00 [facility] [place] Systolic (mm Hg) 2022-02-10 05:08:00 Eliecer rial [place] Diastolic (mm Hg) 2022-02-10 05:08:00 Mem orial Cheng Heart Rate 2022-02-10 05:08:00 [facility] [place] Respitory Rate 2022-02-10 05:08:00 [facility] [place] Temperature Oral (F) 2022-02-10 05:08:00 99.1 F [facility] [place] Temperature Oral (F) 2021-12-27 16:47:00 97.8 F [facility] Heart Rate 2021-12-27 16:47:00 [facility] [place] Systolic (mm Hg) 2021-12-27 16:47:00 Eliecer rial Cheng Diastolic (mm Hg) 2021-12-27 16:47:00 Mem orial [place] Temperature Oral (F) 2021-12-27 12:46:00 97.9 F [facility] Heart Rate 2021-12-27 12:46:00 [facility] Systolic (mm Hg) 2021-12-27 12:46:00 Eliecer rial Cheng Diastolic (mm Hg) 2021-12-27 12:46:00 Mem orial [place] Heart Rate 2021-12-27 07:39:37 [facility] [place] Temperature Oral (F) 2021-12-27 07:39:13 98.9 F [facility] [place] Systolic (mm Hg) 2021-12-27 07:38:55 Eliecer rial Cheng Diastolic (mm Hg) 2021-12-27 07:38:55 Mem orial Cheng Heart Rate 2021-12-27 07:38:55 [facility] [place] Temperature Oral (F) 2021-12-27 02:00:00 98.4 F [facility] Heart Rate 2021-12-27 02:00:00 [facility] [place] Respitory Rate 2021-12-27 02:00:00 [facility] Systolic (mm Hg) 2021-12-27 02:00:00 Eliecer rial [place] Diastolic (mm Hg) 2021-12-27 02:00:00 Mem orial [place] Temperature Oral (F) 2021-12-26 22:08:00 98.2 F [facility] [place] Respitory Rate 2021-12-26 22:08:00 [facility] [place] Systolic (mm Hg) 2021-12-26 22:08:00 Eliecer rial Cheng Diastolic (mm Hg) 2021-12-26 22:08:00 Mem orial Cheng Height 2021-12-26 14:39:00 182.88 cm [facility] [place] BMI Calculated 2021-12-26 14:39:00 [facility] [place] Weight 2021-12-26 14:39:00 [facility] Respitory Rate 2021-12-26 14:39:00 [facility] [place] Height 2021-10-27 20:20:00 170.18 cm [facility] BMI Calculated 2021-10-27 20:20:00 [facility] Weight 2021-10-27 20:20:00 [facility] Systolic (mm Hg) 2021-10-27 20:20:00 Eliecer rial [place] Diastolic (mm Hg) 2021-10-27 20:20:00 Mem orial [place] Heart Rate 2021-10-27 20:20:00 [facility] [place] Respitory Rate 2021-10-27 20:20:00 [facility] al [facility] Temperature Oral (F) 2021-10-27 20:20:00 98.6 F [facility] Body Temperature 2021-09-21 12:56:00 97.9 [degF] [facility] (LUF/[place]ISON/SA) Pulse Rate 2021-09-21 12:56:00 90 /min [facility] (LUF/[place]ISON/[place]) Respiratory Rate 2021-09-21 12:56:00 18 /min Count includes the [facility] (LUF/[place]ISON/[place]) O2% BldC Oximetry 2021-09-21 12:56:00 98 % Count includes the [facility] (LUF/ALLISON/SA) BP Systolic 2021-09-21 12:56:00 116 mm[Hg] [facility] (LUF/ALLISON/SA) BP Diastolic 2021-09-21 12:56:00 70 mm[Hg] [facility] (LUF/ALLISON/SA) Height 2021-09-21 12:56:00 72 [in_i] [facility] (LUF/ALLISON/SA) Weight 2021-09-21 12:56:00 71 kg [facility] (LUF/ALLISON/SA) BMI (Body Mass 2021-09-21 12:56:00 21.4 kg/m2 [facility] (LUF/ALLISON/SA) Body Temperature 2021-08-19 07:25:00 98.4 [degF] Count includes the [facility] (LUF/ALLISON/SA) Pulse Rate 2021-08-19 07:25:00 79 /min [facility] (LUF/[place]ISON/SA) Respiratory Rate 2021-08-19 07:25:00 16 /min Count includes the [facility] (LUF/ALLISON/SA) O2% BldC Oximetry 2021-08-19 07:25:00 100 % Count includes the [facility] (LUF/ALLISON/SA) BP Systolic 2021-08-19 07:25:00 141 mm[Hg] [facility] (LUF/[place]ISON/SA) BP Diastolic 2021-08-19 07:25:00 84 mm[Hg] [facility] (LUF/[place]ISON/SA) Height 2021-08-19 07:25:00 72 [in_i] [facility] (LUF/[place]ISON/SA) Weight 2021-08-19 07:25:00 78.18 kg [facility] (LUF/[place]ISON/SA) BMI (Body Mass 2021-08-19 07:25:00 23.6 kg/m2 [facility]) [facility] (LUF/ALLISON/SA) Body Temperature 2021-06-26 17:00:00 98.4 [degF] Count includes the [facility] (F/ALLISON/SA) Pulse Rate 2021-06-26 17:00:00 86 /min [facility] (LUF/[place]ISON/SA) Respiratory Rate 2021-06-26 17:00:00 18 /min Count includes the [facility] (F/ALLISON/SA) O2% BldC Oximetry 2021-06-26 17:00:00 99 % Count includes the [facility] (LUF/[place]ISON/SA) BP Systolic 2021-06-26 17:00:00 124 mm[Hg] [facility] (LUF/ALLISON/SA) BP Diastolic 2021-06-26 17:00:00 61 mm[Hg] [facility] (F/ALLISON/SA) Height 2021-06-26 15:08:00 72 [in_i] [facility] (F/ALLISON/SA) Weight 2021-06-26 15:08:00 178 kg [facility] (F/ALLISON/SA) BMI (Body Mass 2021-06-26 15:08:00 53.7 kg/m2 [facility] (F/ALLISON/SA) Systolic blood 2021-01-10 14:00:00 116 mm[Hg] Method ist pressure [facility] Diastolic blood 2021-01-10 14:00:00 74 mm[Hg] [facility] [place] Heart rate 2021-01-10 14:00:00 86 /min [facility] Body temperature 2021-01-10 14:00:00 36.22 Jeanette [facility] Respiratory rate 2021-01-10 14:00:00 16 /min [facility] Oxygen saturation in 2021-01-10 14:00:00 98 /min [facility] Arterial blood by Hospital Pulse oximetry Body height 2021-01-10 11:58:00 182.9 cm [facility] Body weight 2021-01-10 11:58:00 70.308 kg [facility] BMI 2021-01-10 11:58:00 21.02 kg/m2 [facility] Systolic blood 2020-12-04 01:07:00 134 mm[Hg] [facility] pressure Diastolic blood 2020-12-04 01:07:00 77 mm[Hg] [facility] pressure Heart rate 2020-12-04 01:07:00 89 /min [facility] Body temperature 2020-12-04 01:07:00 37.17 Jeanette [facility] Respiratory rate 2020-12-04 01:07:00 19 /min [facility] Oxygen saturation in 2020-12-04 01:07:00 100 /min [facility] Arterial blood by Pulse oximetry Body height 2020-12-03 14:31:00 182.9 cm [facility] Body weight 2020-12-03 14:31:00 68.04 kg [facility] BMI 2020-12-03 14:31:00 20.34 kg/m2 [facility] 02 Sat by Pulse 2020-07-27 11:56:00 99 /min Oximetry Body Mass Index 2020-07-27 11:56:00 21.0 Height 2020-07-27 11:56:00 182.88\\S\\72 Pulse Rate 2020-07-27 11:56:00 90 /min Respiratory Rate 2020-07-27 11:56:00 18 /min Temperature 2020-07-27 11:56:00 36.9\\S\\98.4 Weight 2020-07-27 11:56:00 59177.817\\S\\2480 Weight Measurement 2020-07-27 11:56:00 Estimated by Staff Method 02 Sat by Pulse 2020-07-25 06:36:24 99 /min Oximetry Body Mass Index 2020-07-25 06:36:24 21.0 Height 2020-07-25 06:36:24 182.88\\S\\72 Pulse Rate 2020-07-25 06:36:24 90 /min Respiratory Rate 2020-07-25 06:36:24 18 /min Temperature 2020-07-25 06:36:24 36.9\\S\\98.4 Weight 2020-07-25 06:36:24 46046.817\\S\\2480 Weight Measurement 2020-07-25 06:36:24 Estimated by Staff Method 02 Sat by Pulse 2020-07-25 04:36:44 99 /min Oximetry Body Mass Index 2020-07-25 04:36:44 21.0 Height 2020-07-25 04:36:44 182.88\\S\\72 Pulse Rate 2020-07-25 04:36:44 90 /min Respiratory Rate 2020-07-25 04:36:44 18 /min Temperature 2020-07-25 04:36:44 36.9\\S\\98.4 Weight 2020-07-25 04:36:44 54747.817\\S\\2480 Weight Measurement 2020-07-25 04:36:44 Estimated by Staff Method 02 Sat by Pulse 2020-07-25 04:35:42 99 /min Oximetry Body Mass Index 2020-07-25 04:35:42 21.0 Height 2020-07-25 04:35:42 182.88\\S\\72 Pulse Rate 2020-07-25 04:35:42 90 /min Respiratory Rate 2020-07-25 04:35:42 18 /min Temperature 2020-07-25 04:35:42 36.9\\S\\98.4 Weight 2020-07-25 04:35:42 51361.817\\S\\2480 Weight Measurement 2020-07-25 04:35:42 Estimated by Staff Method 02 Sat by Pulse 2020-07-25 04:22:59 99 /min Oximetry Body Mass Index 2020-07-25 04:22:59 21.0 Height 2020-07-25 04:22:59 182.88\\S\\72 Pulse Rate 2020-07-25 04:22:59 90 /min Respiratory Rate 2020-07-25 04:22:59 18 /min Temperature 2020-07-25 04:22:59 36.9\\S\\98.4 Weight 2020-07-25 04:22:59 40386.817\\S\\2480 Weight Measurement 2020-07-25 04:22:59 Estimated by Staff Method 02 Sat by Pulse 2020-07-25 04:05:10 99 /min Oximetry Body Mass Index 2020-07-25 04:05:10 21.0 Height 2020-07-25 04:05:10 182.88\\S\\72 Pulse Rate 2020-07-25 04:05:10 90 /min Respiratory Rate 2020-07-25 04:05:10 18 /min Temperature 2020-07-25 04:05:10 36.9\\S\\98.4 Weight 2020-07-25 04:05:10 83071.817\\S\\2480 Weight Measurement 2020-07-25 04:05:10 Estimated by Staff Method 02 Sat by Pulse 2020-07-25 04:03:38 99 /min Oximetry Body Mass Index 2020-07-25 04:03:38 21.0 Height 2020-07-25 04:03:38 182.88\\S\\72 Pulse Rate 2020-07-25 04:03:38 90 /min Respiratory Rate 2020-07-25 04:03:38 18 /min Temperature 2020-07-25 04:03:38 36.9\\S\\98.4 Weight 2020-07-25 04:03:38 10162.817\\S\\2480 Weight Measurement 2020-07-25 04:03:38 Estimated by Staff Method 02 Sat by Pulse 2020-07-25 04:02:07 99 /min Oximetry Body Mass Index 2020-07-25 04:02:07 21.0 Height 2020-07-25 04:02:07 182.88\\S\\72 Pulse Rate 2020-07-25 04:02:07 90 /min Respiratory Rate 2020-07-25 04:02:07 18 /min Temperature 2020-07-25 04:02:07 36.9\\S\\98.4 Weight 2020-07-25 04:02:07 60518.817\\S\\2480 Weight Measurement 2020-07-25 04:02:07 Estimated by Staff Method WEIGHT 2020-07-25 03:58:00 70.153230 kg HEIGHT 2020-07-25 03:58:00 182.88 cm Respiratory 2020-07-23 11:39:37 No respiratory distress /min 02 Sat by Pulse 2020-07-23 11:39:37 98 /min Oximetry Body Mass Index 2020-07-23 11:39:37 21.2 Height 2020-07-23 11:39:37 187.96\\S\\74 Pulse Rate 2020-07-23 11:39:37 92 /min Respiratory Rate 2020-07-23 11:39:37 20 /min Temperature 2020-07-23 11:39:37 36.5\\S\\97.7 Weight 2020-07-23 11:39:37 15461.741\\S\\2640 Weight Measurement 2020-07-23 11:39:37 Estimated by Staff Method Respiratory 2020-07-22 01:44:33 No respiratory distress /min 02 Sat by Pulse 2020-07-22 01:44:33 98 /min Oximetry Body Mass Index 2020-07-22 01:44:33 21.2 Height 2020-07-22 01:44:33 187.96\\S\\74 Pulse Rate 2020-07-22 01:44:33 92 /min Respiratory Rate 2020-07-22 01:44:33 20 /min Temperature 2020-07-22 01:44:33 36.5\\S\\97.7 Weight 2020-07-22 01:44:33 06049.741\\S\\2640 Weight Measurement 2020-07-22 01:44:33 Estimated by Staff Method Respiratory 2020-07-22 01:18:33 No respiratory distress /min 02 Sat by Pulse 2020-07-22 01:18:33 98 /min Oximetry Body Mass Index 2020-07-22 01:18:33 21.2 Height 2020-07-22 01:18:33 187.96\\S\\74 Pulse Rate 2020-07-22 01:18:33 92 /min Respiratory Rate 2020-07-22 01:18:33 20 /min Temperature 2020-07-22 01:18:33 36.5\\S\\97.7 Weight 2020-07-22 01:18:33 21436.741\\S\\2640 Weight Measurement 2020-07-22 01:18:33 Estimated by Staff Method Respiratory 2020-07-22 00:26:33 No respiratory distress /min 02 Sat by Pulse 2020-07-22 00:26:33 98 /min Oximetry Body Mass Index 2020-07-22 00:26:33 21.2 Height 2020-07-22 00:26:33 187.96\\S\\74 Pulse Rate 2020-07-22 00:26:33 92 /min Respiratory Rate 2020-07-22 00:26:33 20 /min Temperature 2020-07-22 00:26:33 36.5\\S\\97.7 Weight 2020-07-22 00:26:33 74061.741\\S\\2640 Weight Measurement 2020-07-22 00:26:33 Estimated by Staff Method Weight 2020-07-22 00:23:28 44633.741\\S\\2640 Weight Measurement 2020-07-22 00:23:28 Estimated by Staff [...] Temperature 2020-07-21 23:17:22 36.5\\S\\97.7 Weight 2020-07-21 23:17:22 74802.741\\S\\2640 Weight Measurement 2020-07-21 23:17:22 Estimated by Staff Method 02 Sat by Pulse 2020-07-21 23:11:45 98 /min Oximetry Body Mass Index 2020-07-21 23:11:45 21.2 Height 2020-07-21 23:11:45 187.96\\S\\74 Pulse Rate 2020-07-21 23:11:45 92 /min Respiratory Rate 2020-07-21 23:11:45 20 /min Temperature 2020-07-21 23:11:45 36.5\\S\\97.7 Weight 2020-07-21 23:11:45 64191.741\\S\\2640 Weight Measurement 2020-07-21 23:11:45 Estimated by Staff Method WEIGHT 2020-07-21 23:07:00 74.024267 kg HEIGHT 2020-07-21 23:07:00 187.96 cm Procedures Procedure Date / Time Performing Clinician Source Performed COMPREHENSIVE METABOLIC 2022-08-27 01:51:00 [facility] PANEL MAGNESIUM LEVEL 2022-08-27 01:51:00 [facility] PHOSPHORUS LEVEL 2022-08-27 01:51:00 [facility] IONIZED CALCIUM 2022-08-27 01:51:00 [facility] ESTIMATED GFR 2022-08-27 01:51:[address] [facility] [address] CERVICAL SPINE WO 2022-08-27 01:05[facility] URINE DRUGS OF ABUSE 2022-05-27 14:58:00 [facility] SCREEN URINALYSIS SCREEN AND 2022-05-27 14:58:00 [facility] MICROSCOPY, WITH REFLEX TO CULTURE COVID-19 QUALITATIVE 2022-05-27 13:49:00 [facility] RT-PCR CBC WITH PLATELET AND 2022-05-27 13:49:00 [facility] DIFFERENTIAL COMPREHENSIVE METABOLIC 2022-05-27 13:49:00 [facility] PANEL THYROID STIMULATING 2022-05-27 13:49:00 [facility] HORMONE T4, FREE 2022-05-27 13:49:00 [facility] ALCOHOL LEVEL, BLOOD 2022-05-27 13:49:00 [facility] ACETAMINOPHEN LEVEL 2022-05-27 13:49:00 [facility] SALICYLATE LEVEL 2022-05-27 13:49:00 [facility] ESTIMATED GFR 2022-05-27 [facility]22-[facility]-27 13:29:00 [facility] ECG 12-LEAD 2022-05-27 13:23:17 [facility] ECG ED PRELIMINARY 2022-05-27 13:22:47 [facility] INTERPRETATION ECG ED PRELIMINARY 2021-10-16 10:31:12 Manasa Vásquez [facility] INTERPRETATION URINE CULTURE 2021-10-16 09:32:00 [facility] URINE DRUGS OF ABUSE 2021-10-16 09:32:00 [facility] Go URINALYSIS SCREEN AND 2021-10-16 09:32:00 [facility] MICROSCOPY, WITH REFLEX Go TO CULTURE COVID-19 QUALITATIVE 2021-10-16 09:25:00 [facility] RT-PCR Go CBC WITH PLATELET AND 2021-10-16 09:08:00 [facility] DIFFERENTIAL Go COMPREHENSIVE METABOLIC 2021-10-16 09:08:00 [facility] PANEL Go THYROID STIMULATING 2021-10-16 09:08:00 [facility] H[facility] Go T4, FREE 2021-10-16 09:08:00 [facility] ALCOHOL LEVEL, BLOOD 2021-10-16 09:08:00 [facility] Go ACETAMINOPHEN LEVEL 2021-10-16 09:08:00 [facility] Go SALICYLATE LEVEL 2021-10-16 09:08:00 Roberto berkowitz [facility] Go ESTIMATED GFR 2021-10-16 09:08:00 [facility] Go ECG 12-LEAD 2021-10-16 09:05:36 Alva ErnieDemondMichael Calrine [facility] URINE DRUGS OF ABUSE 2021-10-14 22:41:[address] [facility] SCREEN CBC WITH PLATELET AND 2021-10-14 22:00:00 [facility] DIFFERENTIAL COMPREHENSIVE METABOLIC 2021-10-14 22:00:00 [facility] PANEL ACETAMINOPHEN LEVEL 2021-10-14 22:00:00 [facility] SALICYLATE LEVEL 2021-10-14 22:00:00 [facility] ESTIMATED GFR 2021-10-14 22:00:00 [facility] ECG 12-LEAD 2021-10-14 21:14:20 [facility] XR CHEST 1 VW PORTABLE 2021-01-10 12:56:59 Casey Sen [facility] CT ABDOMEN PELVIS WO 2021-01-10 12:56:13 Casey Sen [facility] CONTRAST HC COMPLETE BLD COUNT 2021-01-10 12:39:00 Casey Sen [facility] W/AUTO DIFF COMPREHENSIVE METABOLIC 2021-01-10 12:39:00 Casey Sen [facility] PANEL TROPONIN 2021-01-10 12:39:00 Casey Sen ospital B NATRIURETIC PEPTIDE 2021-01-10 12:39:00 Casey Sen [facility] LIPASE LEVEL 2021-01-10 12:39:00 Casey Sen ospital ESTIMATED GFR 2021-01-10 12:39:00 Casey Sen ospital ECG ED PRELIMINARY 2021-01-10 12:11:30 [facility] 12-LEAD 2021-01-10 12:02:33 Casey Sen ospital COVID-19 QUALITATIVE 2020-12-28 21:34:00 Regine Foster [facility] RT-PCR URINE CULTURE 2020-12-28 21:34:[address] [facility] ospital URINE DRUGS OF ABUSE 2020-12-28 21:34:00 [facility] SCREEN URINALYSIS SCREEN AND 2020-12-28 21:34:00 [facility] MICROSCOPY, WITH REFLEX TO CULTURE ECG ED PRELIMINARY 2020-12-28 21:16:29 Drew Jimenez [facility] INTERPRETATION HC COMPLETE BLD COUNT 2020-12-28 20:36:00 [facility] W/AUTO DIFF COMPREHENSIVE METABOLIC 2020-12-28 20:36:00 [facility] PANEL CREATINE KINASE, TOTAL 2020-12-28 20:36:00 [facility] ([facility]) THYROID STIMULATING 2020-12-28 20:36:00 [facility] HORMONE T4, FREE 2020-12-28 20:36:[address] [facility] ospital ALCOHOL LEVEL, BLOOD 2020-12-28 20:36:00 [facility] ACETAMINOPHEN LEVEL 2020-12-28 20:36:00 [facility] SALICYLATE LEVEL 2020-12-28 20:36:00 [facility] ESTIMATED GFR 2020-12-28 20:36:[address] [facility] ospital ECG 12-LEAD 2020-12-28 17:33:[address] [facility] ospital ECG ED PRELIMINARY 2020-12-24 05:03:23 Mukul Sylvester [facility] INTERPRETATION Dave ECG 12-LEAD 2020-12-24 04:57:39 Saravanan Lagunas [facility] HC COMPLETE BLD COUNT 2020-12-24 03:20:00 Saravanan Lagunas [facility] W/AUTO DIFF COMPREHENSIVE METABOLIC 2020-12-24 03:20:[address] [facility] PANEL CREATINE KINASE, TOTAL 2020-12-24 03:20:00 [facility] ([facility]) THYROID STIMULATING 2020-12-24 03:20:00 [facility] HORMONE T4, FREE 2020-12-24 03:20:[address] [facility] ALCOHOL LEVEL, BLOOD 2020-12-24 03:20:00 [facility] ACETAMINOPHEN LEVEL 2020-12-24 03:20:00 [facility] SALICYLATE LEVEL 2020-12-24 03:20:00 [facility] ESTIMATED GFR 2020-12-24 03:20:[address] [facility] COVID-19 QUALITATIVE 2020-12-24 02:20:00 [facility] RT-PCR URINE DRUGS OF ABUSE 2020-12-24 02:20:00 [facility] SCREEN URINALYSIS SCREEN AND 2020-12-24 02:20:00 [facility] MICROSCOPY, WITH REFLEX TO CULTURE URINE CULTURE 2020-12-24 02:19:[address] [facility] CBC/DIFF 2020-12-03 20:50:00 Mai Quintanilla [facility] BASIC METABOLIC PANEL 2020-12-03 20:50:00 Socorro, [facility] HIV AG/AB COMBO ROUTINE 2020-12-03 20:50:00 Mai Quintanilla [facility] SCREENING CBC 2020-12-03 20:50:00 Socorro Mai [facility] URINE DRUGS OF ABUSE 2020-11-26 23:41:00 [facility] SCREEN URINALYSIS, AUTOMATED 2020-11-26 23:41:00 Rg Bazan [facility] WITH MICROSCOPY COVID-19 QUALITATIVE 2020-11-26 23:21:00 [facility] RT-PCR CREATINE KINASE, TOTAL 2020-11-26 19:13:00 Rg Bazan [facility] ([facility]) HC COMPLETE BLD COUNT 2020-11-26 19:13:00 AliceRg [facility] W/AUTO DIFF COMPREHENSIVE METABOLIC 2020-11-26 19:13:00 AliceRg [facility] PANEL T4, FREE 2020-11-26 19:13:00 [facility] THYROID STIMULATING 2020-11-26 19:13:00 [facility] HORMONE ACETAMINOPHEN LEVEL 2020-11-26 19:13:00 [facility] SALICYLATE LEVEL 2020-11-26 19:13:00 [facility] ALCOHOL LEVEL, BLOOD 2020-11-26 19:13:00 [facility] ESTIMATED GFR 2020-11-26 19:13:00 [facility] ECG ED PRELIMINARY 2020-11-26 18:12:53 [facility] INTERPRETATION ECG 12-LEAD 2020-11-26 18:10:09 [facility] AFFILIATE HC POC URINE 2020-11-24 04:30:00 Armando Minesh [facility] DRUG SCREEN TROPONIN 2020-11-21 20:55:00 [facility]W 2020-11-21 19:01:11 [facility] COMPREHENSIVE METABOLIC 2020-11-21 18:30:00 [facility] HC COMPLETE BLD COUNT 2020-11-21 18:30[facility] TROPONIN 2020-11-21 18:30[facility]00 [facility] NATRIURETIC PEPTIDE 2020-11-21 18:30:00 [facility] ESTIMATED GFR 2020-11-21 18:30:00 [facility] ECG 12-LEAD 2020-11-21 17:56:43 [facility] 2020-11-21 17:47:[facility] CHEST 2 VW 2020-11-19 09:35:13 Casey Rivas [facility] URINE DRUG SCREEN 2020-10-04 18:03:00 Dave Wheat [facility] CREATININE POC 2020-10-04 16:11:00 Dave Cesar BMP POC 2020-10-04 16:11:00 Dave Cesar CK, TOTAL 2020-10-04 16:03:00 [facility] CREATINE KINASE MB (CKMB) 2020-10-04 16:03:00 JarretDave [facility] XRAY CHEST 2 VIEWS 2020-10-04 15:48:52 Betina Wahl [facility] CREATININE POC 2020-10-04 14:58:00 Unknown, Sami Villegas [facility] CBC/DIFF 2020-10-04 14:52:00 Betina Wahl alth BASIC METABOLIC PANEL 2020-10-04 14:52:00 Betina Wahl [facility] TROPONIN I 2020-10-04 14:52:00 Betina Wahl alth HIV AG/AB COMBO ROUTINE 2020-10-04 14:52:00 [facility] SCREENING CBC 2020-10-04 14:52:00 Betina Wahl alth 12 LEAD EKG 2020-10-04 14:46:[address] HEAD W/O CONTRAST 2020-10-02 20:27:48 Shelly Trejo [facility] URINE DRUG SCREEN 2020-10-02 19:12:00 Casey Amanda [facility] URINALYSIS 2020-10-02 19:12:00 Casey Amanda URINALYSIS 2020-10-02 19:12:00 Casey Amanda CONSULT CLINICAL CASE 2020-10-02 17:24:34 Karen Layton [facility] Health MANAGEMENT (RN/SW) CBC/DIFF 2020-10-02 15:20:00 Casey Amanda LIPASE 2020-10-02 15:20:00 Casey Amanda COMPREHENSIVE METABOLIC 2020-10-02 15:20:00 Casey Amanda [facility] PANEL HIV AG/AB COMBO 2020-10-02 15:20:00 Casey [facility] DIAGNOSTIC/SYMPTOMATIC THYROID STIMULATING 2020-10-02 15:20:00 Casey Amanda [facility] HORMONE (TSH) FREE T4 2020-10-02 15:20:00 Casey Amanda h CBC 2020-10-02 15:20:00 Casey [facility] VITAMIN B12 2020-10-02 15:20:00 Shelly Trejo H ealth 12 LEAD EKG 2020-10-02 12:34:26 Missy Vogel h AFFILIATE HC POC FINGER 2020-10-01 00:00:00 Emre Roper [facility] STICK GLUCOSE AFFILIATE HC POC URINE 2020-10-01 00:00:00 Emre Roper [facility] DRUG SCREEN URINE DRUGS OF ABUSE 2020-09-30 20:45:00 [facility] SCREEN [place] URINALYSIS SCREEN AND 2020-09-30 20:45:00 [facility] WITH REFLEX [place] TO CULTURE COVID-19 QUALITATIVE 2020-09-30 20:10:00 [facility] RT-PCR [place] ECG ED PRELIMINARY 2020-09-30 18:19:07 [facility] INTERPRETATION [place] ECG 12-LEAD 2020-09-30 17:20:24 Andry De Jesus spital [place] THYROID STIMULATING 2020-09-30 16:57:00 [facility] [place] T4, FREE 2020-09-30 16:57:00 Andry De Jesus spital [place] ACETAMINOPHEN LEVEL 2020-09-30 16:57:00 [facility] [place] SALICYLATE LEVEL 2020-09-30 16:57:00 Andry De Jesus ospital [place] ESTIMATED GFR 2020-09-30 16:57:00 Andry De Jesus Ho spital [place] HC COMPLETE BLD COUNT 2020-09-30 16:57:00 Andry De Jesus [facility] W/AUTO DIFF [place] COMPREHENSIVE METABOLIC 2020-09-30 16:57:00 Andry De Jesus [facility] PANEL [place] CREATINE KINASE, TOTAL 2020-09-30 16:57:00 Andry De Jesus [facility] ([facility]) [place] Plan of Care Planned Activity Planned Date Details Comments Source Future Scheduled 2022-10-21 COVID-19 VACCINE (#1) [facility] Test 07:28:01 [code = COVID-19 VACCINE (#1)] Future Scheduled 2022-10-21 Pneumococcal Vaccine: [facility] Test 07:28:01 Pediatrics (0 to 5 Years) and At-Risk Patients (6 to 64 Years) (1 - PCV) [code = Pneumococcal Vaccine: Pediatrics (0 to 5 Years) and At-Risk Patients (6 to 64 Years) (1 - PCV)] Future Scheduled 2022-10-21 Hepatitis C screening [facility] Test 07:28:01 (procedure) [code = 115753075] Future Scheduled 2022-10-21 INFLUENZA VACCINE Method [facility] Test 07:28:01 [code = INFLUENZA VACCINE] Future Scheduled 2022-09-14 COVID-19 VACCINE (#1) [facility] Test 13:44:39 [code = COVID-19 VACCINE (#1)] Future Scheduled 2022-09-14 Pneumococcal Vaccine: [facility] Test 13:44:39 Pediatrics (0 to 5 Years) and At-Risk Patients (6 to 64 Years) (1 - PCV) [code = Pneumococcal Vaccine: Pediatrics (0 to 5 Years) and At-Risk Patients (6 to 64 Years) (1 - PCV)] Future Scheduled 2022-09-14 Hepatitis C screening [facility] Test 13:44:39 (procedure) [code = 517654877] Future Scheduled 2022-09-14 INFLUENZA VACCINE [facility] Test 13:44:39 [code = INFLUENZA VACCINE] Future Scheduled 2022-09-14 COVID-19 VACCINE (#1) [facility] Test 13:44:39 [code = COVID-19 VACCINE (#1)] Future Scheduled 2022-09-14 Pneumococcal Vaccine: [facility] Test 13:44:39 Pediatrics (0 to 5 Years) and At-Risk Patients (6 to 64 Years) (1 - PCV) [code = Pneumococcal Vaccine: Pediatrics (0 to 5 Years) and At-Risk Patients (6 to 64 Years) (1 - PCV)] Future Scheduled 2022-09-14 Hepatitis C screening [facility] Test 13:44:39 (procedure) [code = [id number]] Future Scheduled 2022-09-14 INFLUENZA VACCINE [facility] Test 13:44:39 [code = INFLUENZA VACCINE] [...] - PPSV23)] Future Scheduled COVID-19 VACCINE (1) [facility] Test [code = COVID-19 VACCINE (1)] Future Scheduled Hepatitis C screening [facility] Test (procedure) [code = 548920288] Future Scheduled INFLUENZA VACCINE [facility] Test [code = INFLUENZA VACCINE] Encounters Start End Encounter Admission Attending Care Care Encounter Source Date/Time Date/Time Type Type Clinicians Facility Department ID 2022-09-01 Outpatient [facility] [id number] [place] 00:57:14 [id number] [facility] 2022-08-23 Outpatient [facility] [id number] [place] 20:46:36 [id number] [facility] 2022-08-15 Outpatient [facility] [id number] [place] 10:21:58 [id number] Health 2022-08-01 [place]patient [place] [id number] [place] 10:26:31 [id number] Health 2022-07-30 [place]patient [place] [id number] [place] 08:29:09 [id number] Health 2022-07-29 Outpatient [place] [id number] [place] 11:02:06 [id number] [facility] 2022-07-14 [place]patient [place] [id number] [place] 06:00:38 [id number] [facility] 2022-07-13 Outpatient [place] [id number] UT 11:33:10 [id number] [facility] 2022-07-06 Outpatient [place] [id number] [place] 08:50:13 [id number] [facility] 2022-06-22 Outpatient [place] [id number] UT 13:42:35 [id number] [facility] 2022-06-18 Outpatient [place] UT [id number] UT 01:00:00 [id number] [facility] 2022-06-14 Outpatient [place] UT [id number] UT 14:28:19 [id number] [facility] 2022-06-08 Outpatient [place] UT [id number] UT 16:13:16 [id number] [facility] 2022-06-01 Outpatient [place] UT [id number] UT 13:52:09 [id number] [facility] 2022-05-29 Outpatient [place] UT [id number] UT 03:44:00 [id number] [facility] 2022-05-10 Outpatient [place] [id number] UT 11:23:49 [id number] [facility] 2022-04-25 Outpatient [place] UT [id number] UT 16:09:42 [id number] [facility] 2022-04-22 Outpatient [place] UT [id number] UT 16:48:15 [id number] [facility] 2022-04-21 Outpatient [place] UT [id number] UT 15:23:22 [id number] [facility] 2022-04-16 Outpatient [place] UT [id number] UT 12:34:48 [id number] [facility] 2022-04-12 Outpatient [place] [id number] UT 07:20:52 [id number] [facility] 2022-03-14 Outpatient [place] UT [id number] UT 08:32:42 [id number] [facility] 2022-03-11 Outpatient [facility] [id number] [place] 06:11:21 [id number] [facility] 2022-03-09 Outpatient [facility] [id number] [place] 12:41:34 [id number] [facility] 2022-03-01 Outpatient [facility] [id number] [place] 11:32:20 [id number] [facility] 2022-01-21 Outpatient [facility] [id number] [place] 10:08:36 [id number] [facility] 2021-12-27 Outpatient [facility] [id number] [place] 02:07:59 [id number] [facility] 2021-12-26 Outpatient [facility] [id number] [place] 09:26:33 [id number] [facility] 2021-12-23 Outpatient [facility] [id number] UT 14:43:24 [id number] [facility] 2021-12-14 Outpatient [facility] [id number] UT 23:15:55 [id number] [facility] 2021-10-27 Outpatient [facility] [id number] [place] 14:34:53 [id number] [facility] 2021-10-26 Outpatient SNELL, [facility] [id number] [facility] 07:20:41 HARRISON [id number] 8682-06-20 Outpatient SNELL, [facility] [id number] [facility] 19:59:56 HARRISON [id number] 6489-06-19 Outpatient SNELL, [facility] [id number] [facility] 07:44:11 HARRISON [id number] 8134-06-18 Outpatient SNELL, [facility] [id number] [facility] 07:15:44 HARRISON [id number] 7920-06-17 Outpatient SNELL, [facility] [id number] [facility] 06:55:49 HARRISON [id number] 5435-06-16 Outpatient SNELL, [facility] [id number] [facility] 06:45:44 HARRISON [id number] 3041-06-15 Outpatient SNELL, [facility] [id number] [facility] 06:53:41 HARRISON [id number] 1932-06-14 Outpatient SNELL, [facility] [id number] [facility]PC 06:52:46 HARRISON [id number] 6703-06-13 Outpatient [facility] [id number] [place] 10:56:48 [id number] [facility] 2021-10-18 Outpatient CHANNING, [facility] [id number] [facility] 08:09:09 HARRISON [id number] 2045-06-12 Outpatient [facility] [id number] [place] 01:32:[id number] [place] [id number] 2021-02-04 [facility] [id number] [facility] 15:43:00 39 2021-02-01 Inpatient SJm SJm [id number] SJm 22:45:00 08 2020-12-25 Inpatient SJm SJm [id number] SJm 10:47:00 01 2020-11-21 [facility] [id number] [facility]m 03:44:00 60 2020-07-25 Inpatient SJm SJm [id number] SJm 03:51:00 45 2020-07-21 [facility] [id number] [facility]m 22:58:00 04 2020-07-21 Inpatient SJm [facility] [id number] [facility] 22:58:00 04 2022-10-19 2022-10-19 Outpatient SFA SFA [id number] Al 08:33:59 08:33:59 [id number] F [place] 2022-10-14 2022-10-14 Outpatient SFA SFA [id number] Al 09:03:32 09:03:32 [id number] F [place] 2022-10-04 2022-10-04 Outpatient ARCHANA, [facility] [id number] [place] 00:00:00 00:00:00 [facility] 2022-09-27 2022-09-27 Outpatient SHANTI, [place] [id number] Nigel 00:00:00 00:00:00 [facility] 2022-09-27 2022-09-27 Outpatient [facility] [id number] [address] [place] [id number] 00:00:00 00:00:00 [facility] 2022-09-05 2022-09-21 Inpatient [facility] [id number] [place] 14:49:00 15:14:00 DANIEL Kapadia 2022-09-19 2022-09-19 Outpatient MYRTLEPADMAJanel, [facility] [id number] [place] 11:11:31 11:56:59 [facility] 2022-09-14 2022-09-14 Outpatient NEIL, [facility] [id number] [place] 13:44:34 14:25:01 [facility] 2022-09-08 2022-09-08 Outpatient BRENDON, [facility] [id number] [place] 09:16:09 10:31:07 [facility] 2022-09-07 2022-09-07 Outpatient FRANKY, [facility] [id number] [place] 00:00:00 00:00:00 [facility] 2022-08-31 2022-09-01 Emergency E BONNIE, [facility] [id number] [facility] 21:06:00 03:11:00 SAEID 2022-08-29 2022-08-29 Outpatient JOHANNA, [facility] [id number] [facility] 00:00:00 00:00:00 KEENE 2022-08-28 2022-08-28 Travel 1.2.840.1 [id number] [id number] Methodi 00:00:00 00:00:[address] 3.430.2.7 0.2.7.3.698 Ho spita .3.621752 084.8 l .8 2022-08-28 2022-08-28 Travel 1.2.840.1 1.2.695.113 [id number] Methodi 00:00:00 00:00:[address] 3.430.2.7 0.2.7.3.698 Ho spita .3.701371 084.8 l .8 2022-08-27 2022-08-27 Outpatient ROSALIE KOEHLER [facility] [id number] [place] 15:12:13 15:54:13 [facility] 2022-08-26 2022-08-26 Emergency Rob, 1.2.840.1 [id number] Methodi 18:42:00 23:33:[address] Ph[address] 3.430.2.7 Hospit a .3.163891 l .8 2022-08-26 2022-08-26 Emergency Rob, 1.2.840.1 [id number] Methodi 18:42:00 23:33:[address] Phu 3.430.2.7 Hospit a .3.305518 l .8 2022-08-26 2022-08-26 Travel 1.2.840.1 1.2.550.833 [id number] Methodi 00:00:00 00:00:[address] 3.430.2.7 0.2.7.3.698 Ho spita .3.131425 084.8 l .8 2022-08-26 2022-08-26 Travel 1.2.840.1 1.2.407.911 [id number] Methodi 00:00:00 00:00:[address] 3.430.2.7 0.2.7.3.698 Ho spita .3.835684 084.8 l .8 2022-08-23 2022-08-23 Outpatient [facility] [id number] [place] 20:23:45 23:59:00 [facility] 2022-07-29 2022-08-14 Outpatient VIDA [facility] [id number] [facility] 13:57:00 19:00:00 ARIANE 2022-07-29 2022-08-12 Inpatient [facility] [id number] [place] 13:57:00 23:00:00 Health 2022-08-11 2022-08-11 Outpatient [facility] [id number] [place] 00:00:00 00:00:00 [facility] 2022-08-01 2022-08-01 [facility] [id number] [place] 00:00:00 00:00:00 [facility] 2022-07-28 2022-07-29 Emergency [facility] [id number] [place] 18:49:00 00:10:00 , CARROLL Urbina 2022-07-28 2022-07-28 Outpatient LORENE KUO [facility] [id number] [place] 00:00:00 00:00:00 [facility] 2022-07-27 2022-07-27 [facility] [id number] [place] 16:02:00 19:16:00 OLIVIA Urbina 2022-07-27 2022-07-27 [facility] [id number] [place] 14:39:43 16:01:00 [facility] 2022-07-26 2022-07-26 Outpatient 3 LETY WELLS [facility] [id number] [place] 08:07:41 09:55:51 [facility] 2022-07-26 2022-07-26 Outpatient LETY WELLS [facility] [id number] [place] 00:00:00 00:00:00 [facility] 2022-07-25 2022-07-25 Outpatient ANYJAQUAN, [facility] [id number] [place] 11:44:00 23:59:00 [facility] 2022-07-22 2022-07-22 Emergency Emergency Afuwape, [facility] [id number] [facility] 18:44:00 20:07:00 Lukuman 49 2022-07-22 2022-07-[address] [facility] [id number] [facility] 18:44:00 18:44:00 49 2022-07-14 2022-07-21 Inpatient PATRICK, [facility] [id number] [place] 17:12:21 09:21:00 [facility] 2022-07-18 2022-07-18 Outpatient [facility] [id number] [place] 00:00:00 00:00:00 [facility] 2022-07-14 2022-07-14 Emergency Amparo NATARAJAN, [facility] [id number] [facility] 00:57:00 09:43:00 MARY ALICE 2022-07-13 2022-07-13 Outpatient JUDY, [facility] [id number] [place] 11:40:45 12:50:02 [facility] 2022-07-02 2022-07-02 Outpatient ANYAKORAH, [facility] [id number] [place] 01:14:08 23:59:00 [facility] 2022-07-01 2022-07-01 Emergency [facility] [id number] [place] 21:28:00 23:38:00 [facility] 2022-07-01 2022-07-01 Emergency [facility] [id number] [place] 16:47:00 17:22:00 [facility] 2022-06-25 2022-06-25 Outpatient BRENDON, [facility] [id number] [place] 14:09:03 14:31:[address] [facility] 2022-06-21 2022-06-22 Emergency [facility] [id number] [place] 20:18:00 13:35:[address] [facility] 2022-06-21 2022-06-21 Emergency [facility] [id number] [place] 21:19:28 21:32:18 [facility] 2022-06-19 2022-06-19 Emergency Emergency Frank, [facility] [id number] [facility] 19:52:00 22:30:00 Chrystan 19 2022-06-19 2022-06-[address] [facility] [id number] [facility] 19:52:00 19:52:00 19 2022-06-18 2022-06-18 Emergency [facility] [id number] [place] 06:59:28 08:57:[address] 2022-06-18 2022-06-18 Emergency Amparo TORRES, [facility] [id number] [facility] 00:59:00 02:57:00 COUNT INCLUDES THE [facility] 2022-06-17 2022-06-17 [facility] [id number] [place] 20:38:00 23:09:00 [facility] 2022-06-14 2022-06-15 [facility] [id number] [place] 14:38:00 04:44:00 [facility] 2022-06-14 2022-06-14 Emergency [facility] [id number] [place] 18:11:17 18:18:17 [facility] 2022-05-29 2022-06-13 Inpatient [facility] [id number] [place] 10:47:00 23:00:00 [facility] 2022-05-29 2022-06-13 Outpatient VIDA, [facility] [id number] [facility] 10:47:00 11:50:00 ARIANE 2022-05-28 2022-05-28 Outpatient EGBULEFU, [facility] [id number] [place] 19:14:10 23:59:00 [facility] 2022-05-27 2022-05-27 Emergency [place], 1.2.840.1 [id number] [facility] 07:11:00 11:45:00 Ernie Ayden [id number] 420 s t 3.430.2.7 Hospit a .3.370760 l .8 2022-05-27 2022-05-27 Emergency [place], 1.2.840.1 [id number] [facility] 07:11:00 11:45:00 Ernie Ayden [id number] 420 s t 3.430.2.7 Hospit a .3.717471 l .8 2022-05-26 2022-05-26 Outpatient [facility] [id number] [place] 00:00:00 00:00:00 [facility] 2022-05-18 2022-05-[address] [facility] [id number] [facility] 19:22:00 19:22:00 2022-05-18 2022-05-18 Emergency Emergency Skefos, [facility] [id number] [facility] 19:22:00 19:22:00 [facility] 65 2022-05-06 2022-05-17 Inpatient FELTON-JOSÉ MIGUEL [facility] [id number] [place] 11:45:00 16:55:00 WILIAM [facility] 2022-05-14 2022-05-14 Outpatient HANNA MEDRANO [facility] [id number] [place] 09:37:12 09:52:49 [facility] 2022-05-06 2022-05-06 Outpatient EGCAITLIN, [facility] [id number] [place] 06:25:51 11:44:00 [facility] 2022-05-04 2022-05-05 Emergency [facility] [id number] [facility] 01:55:56 22:12:[address] 2022-05-03 2022-05-05 Emergency E DELGADO, [facility] [id number] [facility] 19:55:00 16:12:00 MARY ALICE 2022-04-29 2022-04-29 Emergency Emergency Afuwape, [facility] [id number] [facility] 08:31:00 11:04:00 Lukuman 44 2022-04-29 2022-04-[address] [facility] [id number] [facility] 08:31:00 08:31:00 44 2022-04-27 2022-04-27 [facility] [id number] [place] 15:02:00 19:50:00 [facility] 2022-04-21 2022-04-26 Outpatient [facility] [id number] [facility] 15:23:00 10:35:00 [facility] 2022-04-13 2022-04-22 Inpatient [facility] [id number] [facility]oria 02:42:07 00:15:[address] 2022-04-13 2022-04-21 Inpatient Amparo BERNAL, [id number] 02:53:00 18:15:00 [facility] 2022-04-07 2022-04-07 Outpatient SHANTI, [facility] [id number] [place] 00:00:00 00:00:00 [facility] 2022-03-31 2022-04-01 Emergency 1 CHAVEZ [facility] MED [id number] [place] 16:50:00 07:05:00 Count includes the [facility] 2022-03-21 2022-03-28 Inpatient [facility] [id number] [place] 12:40:00 10:15:00 [facility] 2022-03-24 2022-03-24 Outpatient SHANTI [facility] [id number] [place] 12:55:24 14:15:37 [facility] 2022-03-22 2022-03-22 Outpatient ROSALIE KOEHLER [facility] [id number] [place] 10:49:26 11:33:19 [facility] 2022-03-11 2022-03-21 Outpatient LIZ, [facility] [id number] [facility] 05:51:00 12:08:00 CAESA 2022-03-17 2022-03-17 Outpatient LE, DIANA [facility] [id number] [place] 00:00:00 00:00:00 [facility] 2022-03-15 2022-03-15 Outpatient [facility] [id number] [place] 00:00:00 00:00:00 [facility] 2022-03-08 2022-03-11 Emergency [facility] [id number] [place] 07:21:00 05:35:00 [facility] 2022-03-08 2022-03-08 Emergency [facility] [id number] [place] 09:20:31 09:24:49 [facility] 2022-03-08 2022-03-08 Emergency [address] Matt Diallo [facility] JM0 [id number] [facility] 00:34:00 04:37:00 2022-02-14 2022-02-14 Outpatient [facility] [id number] [place] 00:00:00 00:00:00 [facility] 2022-02-10 2022-02-10 Emergency [facility] [id number] [facility] 05:01:46 10:22:[address] 2022-02-10 2022-02-10 Emergency E DELGADO, [id number] [facility] 00:01:00 05:22:00 MARY ALICE 2022-02-10 2022-02-10 Outpatient LE, DIANA [facility] [id number] [place] 00:00:00 00:00:00 [facility] 2022-02-09 2022-02-09 Outpatient [facility] [id number] [place] 00:00:00 00:00:00 [facility] 2022-01-13 2022-02-07 Inpatient FELTON-ELDE [facility] 1850 [place] 10:42:00 08:30:00 DANIEL Kapadia [facility] 2022-02-03 2022-02-03 Outpatient RADHA, [facility] [id number] [place] 13:59:22 15:20:18 [facility] 2022-01-31 2022-01-31 Outpatient JENNA, [facility] [id number] [place] 15:49:58 16:33:02 [facility] 2022-01-27 2022-01-27 Outpatient NICHOLE, [facility] [id number] [place] 09:43:08 10:56:08 KING [facility] 2022-01-26 2022-01-26 [facility] [id number] [place] 17:10:26 18:07:55 [facility] 2022-01-26 2022-01-26 [facility] [id number] [place] 15:40:00 16:02:00 [facility] 2022-01-26 2022-01-26 Emergency MEALER, [facility] [id number] [place] 13:11:57 14:48:24 [facility] 2022-01-25 2022-01-25 Outpatient VARADARAGABBY [facility] [id number] [place] 00:00:00 00:00:00 , IMTIAZ Urbina 2022-01-21 2022-01-21 Outpatient NOEUFEMIA, [facility] [id number] [place] 14:21:00 15:01:28 [facility] 2022-01-21 2022-01-21 Outpatient SAM, [facility] [id number] [place] 00:00:00 00:00:00 [facility] 2022-01-20 2022-01-20 Outpatient [facility] [id number] [place] 14:50:33 15:02:23 [facility] 2022-01-20 2022-01-20 Outpatient VETTICAL, [facility] [id number] [place] 00:00:00 00:00:00 [facility] 2022-01-18 2022-01-18 Outpatient VETTICAL, [facility] [id number] [place] 12:29:08 13:53:04 [facility] 2022-01-18 2022-01-18 Outpatient [facility] [id number] [place] 10:56:53 12:10:22 [facility] 2022-01-07 2022-01-13 Inpatient NGUYEN, [facility] [id number] [place] 12:32:43 09:47:00 [facility] 2022-01-13 2022-01-13 Outpatient LE, DIANA [facility] [id number] [place] 00:00:00 00:00:00 [facility] 2021-12-26 2021-12-27 Emergency [facility] [id number] [place] 14:25:51 17:01:[address] 2021-12-26 2021-12-27 Emergency E HELGA, [id number] [facility] 09:25:00 12:01:00 NOLVIA 2021-12-14 2021-12-15 Emergency [facility] [id number] [place] 16:41:00 10:01:00 [facility] 2021-12-14 2021-12-14 Emergency 1 [facility] [id number] [place] 16:41:00 16:41:00 [facility] 2021-12-14 2021-12-14 Outpatient EGBULEFU, [facility] [id number] [place] 13:58:18 16:40:00 [facility] 2021-12-10 2021-12-10 Outpatient [facility] [id number] [place] 00:00:00 00:00:00 [facility] 2021-12-08 2021-12-08 Outpatient EGBULEFU, [facility] [id number] [place] 09:38:59 11:00:17 [facility] 2021-12-06 2021-12-06 Outpatient EGBULEFU, [facility] [id number] [place] 00:00:00 00:00:00 [facility] 2021-12-03 2021-12-03 Outpatient EGBULEFU, [facility] [id number] [place] 09:46:14 10:59:20 [facility] 2021-12-02 2021-12-02 Outpatient [facility] [id number] [place] 13:04:32 13:04:32 [facility] 2021-12-02 2021-12-02 Outpatient EGBULEFU, [facility] [id number] [place] 07:39:38 09:38:08 [facility] 2021-12-02 2021-12-02 Outpatient GOTSCHALL, [facility] [id number] [place] 07:46:38 07:48:49 [facility] 2021-12-02 2021-12-02 Outpatient EGBULEFU, [facility] [id number] [place] 00:00:00 00:00:00 [facility] 2021-11-29 2021-11-30 Emergency [facility] [id number] [place] 19:01:00 01:49:00 [facility] 2021-11-29 2021-11-29 Outpatient EGBULEFU, [facility] [id number] [place] 10:07:10 10:37:20 [facility] 2021-11-29 2021-11-29 Outpatient [facility] [id number] [place] 08:50:23 09:12:45 [facility] 2021-11-26 2021-11-26 Outpatient [facility] [id number] [place] 08:41:54 11:03:01 [facility] 2021-11-25 2021-11-25 Outpatient DESTINEE, [facility] [id number] [place] 13:29:46 14:22:39 [facility] 2021-11-11 2021-11-12 Emergency EM [id number] [facility] 09:09:00 05:00:00 [id number] [facility] 2021-11-11 2021-11-12 Emergency EM Colton, [facility] [id number] [facility] 09:09:00 05:00:00 Wilbur 84 [facility] 2021-11-11 2021-11-11 Outpatient [facility] [id number] [place] 00:00:00 00:00:00 [facility] 2021-10-27 2021-10-28 Emergency [facility] [id number] [facility] 20:08:40 05:30:00 [facility] 00 l [facility] 2021-10-18 2021-10-26 Inpatient [facility] [id number] [place] 10:57:00 23:00:00 [facility] 2021-10-16 2021-10-16 Outpatient CUONG, [facility] [id number] [place] 21:35:04 23:59:00 [facility] 2021-10-16 2021-10-16 Emergency PARTH, [facility] [id number] [place] 18:17:00 20:46:00 [facility] 2021-10-16 2021-10-16 Emergency KATIE, [facility] [id number] [place] 16:26:00 16:35:00 [facility] 2021-10-16 2021-10-16 Emergency Saeid, 1.2.840.1 [id number] Method 03:12:00 06:33:00 Manasa 93052.1.[address] [facility] 3.430.2.7 Hospit a .3.433116 l .8 2021-10-16 2021-10-16 Emergency 1.2.840.1 [id number] 2100 [id number] Methodi 01:27:00 01:28:[address] 3.430.2.7 Hospit a .3.144337 l .8 2021-10-16 2021-10-16 Emergency [facility] [id number] [place] 00:00:00 00:00:00 [facility] 2021-10-14 2021-10-15 Emergency Mary Alice Vogel 1.2.840.1 [id number] Methodi 16:26:00 11:32:[address] 3.430.2.7 Hospit a .3.964847 l .8 2021-10-11 2021-10-14 Inpatient PATRICK, [facility] [id number] [place] 15:28:27 11:56:00 [facility] 2021-10-08 2021-10-08 Emergency EM Jackson [facility] ANNA [id number] [facility] 05:25:00 20:02:00 [facility] 53 [facility] 2021-10-08 2021-10-08 Emergency EM Jackson [facility] [id number] [facility] 05:25:00 20:02:00 [facility] [id number] [facility] 2021-10-04 2021-10-04 Emergency [facility] [id number] [place] 00:00:00 00:00:00 EYITEMI [address] 2021-09-30 2021-09-30 PAIN IN 3 SHIELA CANDELARIO [facility] [id number] 15:21:00 23:59:00 RIGHT HIP [facility] [address] ([address]F/LI A[address], V/SA) KIMBERLEE PERES [id number] 2021-09-30 2021-09-30 Inpatient [facility] df38 [id number] [facility] 00:00:00 00:00:00 GRAHAM [id number] Annel [facility], [id number] Memor ia [address] [id number] shira RIVAS (LUF/LI AVE, V/SA) [place] [id number] 2021-09-30 2021-09-30 Inpatient [facility] [id number] [facility] 00:00:00 00:00:00 GRAHAM [id number] [facility], [id number] Memor ia [address] [id number] l ROB (LUF/LI AVE, V/[place]) [place] [address] 2021-09-21 2021-09-21 Inpatient 1 DAVE, [facility] [id number] [facility] 12:28:00 15:00:00 CLEMENT [facility] [address] ([address]F/LI AVE, V/[place]) [place] [address] 2021-09-21 2021-09-21 Inpatient [facility] [id number] [facility] 00:00:00 00:00:00 GRAHAM [id number] [facility], [id number] Memor ia [address] [id number] l ROB (LUF/LI AVE, V/SA) [place] [address] 2021-08-19 2021-08-19 CYSTITIS 1 PRATT, [facility] 0101 [id number] [facility] 07:12:00 10:18:00 UNS SHIELA [facility] HEMATURIA [address] (LUF/LI AVE, V/SA) [place] [address] 2021-08-19 2021-08-19 Inpatient [facility] f96d [id number] [facility] 00:00:00 00:00:00 GRAHAM [id number] [facility], [id number] Memor ia [address] [id number] l ROB (LUF/LI AVE, V/SA) [place] [address] 2021-08-19 2021-08-19 Inpatient [facility] [id number] 00:00:00 00:00:00 GRAHAM [id number] [facility], [id number] Memor ia [address] [id number] l ROB (LUF/LI AVE, V/[place]) [place] [address] 2021-06-26 2021-06-[address] TERENCELMShira EMD [id number] [facility] 15:03:00 17:35:00 SHIELA silva (LUF/LI V/SA) 2021-06-26 2021-06-26 Inpatient [facility] [place] [address] 9126-e [facility] 00:00:00 00:00:00 GRAHAM [id number] Annel [facility], [id number] Memor ia [address] [place] [address] [id number] l ROB (LUF/LI AVE, V/SA) [place] [address] 2021-01-23 2021-01-24 Emergency BENI, [facility] [id number] 10317 [place] 00:00:00 00:00:00 RG 024 Method i 2021-01-15 2021-01-15 Emergency EM ERIKA Saucedo [id number] [facility] 15:16:00 19:02:00 Luci 14 [facility] 2021-01-10 2021-01-10 Emergency SEN, [facility] [id number] 09 [place] 00:00:00 00:00:00 CASEY 269 Method i 2021-01-10 2021-01-10 Travel 1.2.840.1 1.2.702.822 [id number] Methodi 00:00:00 00:00:00 23945.1.1 350.1.13.43 2 3.430.2.7 0.2.7.3.698 spita .3.828357 084.8 l .8 2021-01-04 2021-01-05 Emergency EM ERIKA Mckeon [id number] [facility] 21:37:00 03:00:00 Martin 23 [facility] 2020-12-29 2020-12-29 Emergency ROB, [place] [address] [id number] 45 [place] 00:00:00 00:00:00 CASEY [address] 2020-12-28 2020-12-29 Emergency Barbara, [place] [address] [id number] 91 [place] 00:00:00 00:00:00 Alma Rosasin Imrun 307 Vt thodi 2020-12-25 2020-12-[address] [facility] [id number] [facility] 10:47:00 10:47:00 2020-12-25 2020-12-25 Emergency HONG, [facility] [id number] 39 [place] 00:00:00 00:00:00 KEE 096 Method i 2020-12-23 2020-12-24 Emergency Gemignani, [place] [address] [id number] [place] 00:00:00 00:00:00 Mukul Acosta 612 Me thodi 2020-12-08 2020-12-08 Emergency [facility] [id number] [place] 00:00:00 00:00:00 949 Method i 2020-12-03 2020-12-04 Emergency [facility] [id number] [place] 22:24:00 01:08:00 Jose Ramon Doss 2020-12-03 2020-12-03 Emergency [facility] [id number] [place] 00:00:00 00:00:00 [facility] 2020-12-02 2020-12-02 Telemedici Chuy, Rolando [facility] [id number] [place] 07:04:58 16:12:52 [facility] 2020-11-26 2020-11-27 Emergency Beni, [place] [address] [id number] [place] 00:00:00 00:00:00 Rg Silva Tomas Method i 2020-11-25 2020-11-26 Emergency [facility] [id number] [place] 00:00:00 07:40:00 [facility] 2020-11-23 2020-11-25 Inpatient PATRICK, [facility] [id number] [place] 22:44:46 17:05:00 [facility] 2020-11-23 2020-11-23 Outpatient [facility] [id number] [place] 21:23:41 22:43:00 [facility] 2020-11-21 2020-11-[address] [facility] [id number] [facility] 03:44:00 03:44:00 60 2020-11-21 2020-11-21 Travel 1.2.840.1 1.2.258.907 [id number] Methodi 00:00:00 00:00:00 82058.1.1 350.1.13.43 006 3.430.2.7 0.2.7.3.698 Ho spita .3.264346 084.8 l .8 2020-11-21 2020-11-21 Emergency Hong, [place] [address] [id number] 11 [place] 00:00:00 00:00:00 Kee Jackson [address] 2020-11-21 2020-11-21 Emergency HONG, [place] [address] [id number] 15 [place] 00:00:00 00:00:00 KEE Campbell4 [facility] 2020-11-19 2020-11-19 Emergency ROB, [place] [address] [id number] 56 [place] 00:00:00 00:00:00 CASEY 103 Method i 2020-11-11 2020-11-11 Telemedici Rolando Vera [facility] [id number] [place] 07:09:12 17:04:01 ne [facility] 2020-10-28 2020-10-28 Office Rolando Vera [facility] [id number] [place] 13:37:38 14:06:40 Visit [facility] 2020-10-15 2020-10-15 Emergency Quinones, [facility] [id number] [place] 00:12:00 00:16:00 [facility] 2020-10-14 2020-10-14 Nurse Donal [facility] [id number] [place] 00:00:00 00:00:00 Triage [facility] 2020-10-04 2020-10-05 Emergency Dave Cesar [facility] 15 [id number] [place] 15:20:00 00:41:00 Claudia Ruiz [facility] 2020-10-04 2020-10-04 Emergency [facility] [id number] [place] 15:38:21 15:49:04 [facility] 2020-10-02 2020-10-02 Emergency [facility] [id number] [place] 13:10:00 23:32:00 [facility] 2020-10-02 2020-10-02 Emergency [facility] [id number] [place] 19:55:07 20:27:54 [facility] 2020-09-30 2020-09-30 Emergency Neal 1.2.840.1 [id number] Methodi 12:14:00 16:37:[address] [place] 3.430.2.7 Hosp jesse .3.488685 l .8 2020-09-30 2020-09-30 Travel 1.2.840.1 1.2.146.022 [id number] [id number] Methodi 00:00:00 00:00:[address] 3.430.2.7 0.2.7.3.698 Ho spita .3.220573 084.8 l .8 2020-01-21 2020-01-21 Emergency 1 [facility] KAYLA [id number] 10:18:00 12:46:00 [facility] 2020-01-21 2020-01-21 Emergency 1 [facility] KAYLA [id number] 10:18:00 10:18:00 [facility] -[id number] [facility] 2020-01-19 2020-01-19 Emergency 1 Yoel [facility] [address]AY[id number] 17:31:00 19:00:00 Matt Diallo [facility] 2020-01-19 2020-01-19 Emergency [facility] KAYLA [id number] 17:31:00 17:31:00 -[id number] [facility] 2019-07-29 2019-07-29 Emergency [facility] KAYLA [id number] St[address] 22:14:00 22:14:00 [facility] 2019-07-29 2019-07-29 Emergency [facility] KAYLA [id number] St[address] 22:14:00 22:14:00 -[id number] [facility] 2019-07-29 2019-07-29 Emergency [facility] KAYLA [id number] St[address] 08:55:00 08:55:00 [facility] 2019-07-21 2019-07-21 Emergency [facility] KAYLA [id number] St[address] 23:37:00 23:37:00 [facility] 2019-07-20 2019-07-20 Emergency [facility] KAYLA [id number] St[address] 09:08:00 09:08:00 [facility] 2019-07-20 2019-07-20 Emergency [facility] KAYLA [id number] [address] St[address] 09:08:00 09:08:00 [id number] [facility] 2018-03-06 2018-03-06 Outpatient [facility] [id number] [place] 00:00:00 00:00:00 [facility] 2018-01-29 2018-01-29 Emergency [facility] [id number] [place] 16:17:09 16:17:09 [facility] 2018-01-29 2018-01-29 Emergency [facility] [id number] [place] 15:04:42 15:04:42 [facility] 2017-12-06 2017-12-06 Emergency [facility] [id number] [place] 21:20:55 21:20:55 [facility] 2017-06-30 2017-06-30 Emergency E [facility] [id number] 21:35:00 21:35:00 [facility] 2017-06-14 2017-06-14 Emergency E [facility] [id number] [address] 20:07:00 20:07:00 [facility] Results Test Description Test Time Test Comments Results Result Comments Source SARS-CoV-2 RNA Resp Ql [facility] 2022-07-26 12:03:02 Test Item Value Reference Range Interpretation Comme nts Symptomatic as defined by CDC? No (test code = 80921-2) Hospitalized? (test code = No 04856-4) ICU? (test code = 70734-9) No Employed in Healthcare? (test No code = 88539-2) Resident in a congregate care No setting (including nursing homes, residential care for people with intellectual and developmental disabilities, psychiatric treatment facilities, group homes, board and care homes, homeless longterm, foster care or other): (test code = 17982-2) SARS-CoV-2 RNA Resp Ql NOT DETECTED Not Detected The 2 019 novel coronavirus [facility]+probe (test code = (SARS -CoV-2) target nucleic 71286-4) acids are not d etected. COMMENT: The [employer] Xpress SARS-CoV-2 real-time PCR test was developed and its performance characteristics have been determined by the [facility]. This test has not been cleared or approved by the FDA. This test system has been authorized by the FDA under an Emergency Use Authorization (EUA). This test has been validated in accordance with the FDA\\DO47096\\s Guidance document \\KB8106T\\Policy for Diagnostic Tests for Coronavirus Disease-2019 during the Public Health Emergency\\RE3068Z\\ issued on July 22, 2019 and is used for clinical purposes. It should not be regarded as investigational or for research. \\EI0908H\\Detected\\FT5630X\\ results are in dicative of active infection with SARS-CoV-2; clinical correlation with patient history and other diagnostic information is necessary to determine patient infection status.\\VA5196L\\Not Detected\\XH9009I\\ results do not preclude SARS-CoV-2 infection and should not be used as the sole basis for treatmentor other patient management decisions. Negative results must be combined with clinical observations,patient history, and epidemiological information.This laboratory is certified under the Clinical Laboratory Improvement Amendments (CLIA) as qualified to perform high complexity clinical laboratory testing.[facility] Influenza Virus A B [id number] 19:12:00 Test Item Value Reference Range Interpretation Comments Influenza Virus A Antigen (test code Negative Negative = INFAAB) Influenza Virus B Antigen (test code Positive Negative A = INFBAB) Rapid Group A Strep [id number] 19:12:00 Test Item Value Reference Range Interpretation Comments Rapid Group A Strep Screen (test Negative Negative code = RSST) Throat Culture-Beta Strep [id number] 19:12:00 Test Item Value Reference Range Interpretation Comments Throat Culture-Beta No Beta Strep Group A Strep Only (test code isolated at 48 hours = TCBS) Viral Culture,Rapid,[id number] 19:12:00 Test Item Value Reference Range Interpretation Comments Viral Comment See_Comment Negative:No Inf luenza A or Culture,Rapid,Influe B detec suze.Performed at: [facility] (test code = BN - [facility] p [id number]) [address] [id number] Di yuniel: Annie Joaquin MD, Phone: [phone] [Aut omated message] The sy stem which generated this result transmitted ref erence range: .. The r eference range was not u sed to interpret this result as normal/abnormal . SARS-CoV-2 RNA Resp Ql CAMERON+[id number] 00:17:13 Test Item Value Reference Range Interpretation Comments Hospitalized? (test No code = 47996-4) ICU? (test code = No 94826-7) Symptomatic as defined No by CDC? (test code = 73922-5) Employed in No Healthcare? (test code = 18401-4) Resident in a No congregate care setting (including nursing homes, residential care for people with intellectual and developmental disabilities, psychiatric treatment facilities, group homes, board and care homes, homeless longterm, foster care or other): (test code = 96162-7) SARS-CoV-2 RNA Resp Ql NOT DETECTED Not Detected The 2 019 novel CAMERON+probe (test code = coron avirus 79172-0) (SARS-CoV-2) ta rget nucleic acids a re not detected. The ELIZ Susan SARS-CoV-2/Influenza is a real-time RT-PCR based diagnostic test intended for the qualitative detection of SARS-CoV-2 viral RNA in a nasopharyngeal swab during acute phase of infection. This test was developed and its performance characteristics have been determined by the [facility]. This test has not been [...] code = NRBCP) 0 % Comprehensive Metabolic [id number] 20:13:00 Test Item Value Reference Range Interpretation [...] code = based on the EGFR.XX) CKD-EPI 202 equation thatdo es not use a race coefficient. Additional information can be found at:[id number]_o cb_ egfr_summary_fl angle 5.pdf (kidney.o rg) [Automated [...] 46-116 N (test code = ALP) Ethanol [id number] 20:13:00 Test Item Value Reference Range Interpretation Comments Ethanol (test code < 3 mg/dL The pharm acological = ETOH) response to blo od alcohol levels mayvary from individual to i ndividual. The fatal alyce ntrationhas been reported t o be >400mg/dL. ECG 12 [id number] 06:09:33 Test Item Value Reference Range Interpretation Comments Ventricular rate (test 80 code = 253) Atrial rate (test code 80 = 255) VT interval (test code 156 = 266) QRSD [...] now present-QT has lengthened-Electronica lly Signed By Jeri Presley MD ([id number]) on 05/28/2022 12:09:26 AM [facility] 12 [id number] 06:09:33 Test Item Value Reference Range Interpretation Comments Ventricular rate (test 80 code = 253) Atrial rate (test code 80 = 255) VT interval (test code 156 = 266) QRSD [...] now present-QT has lengthened-Electronica lly Signed By Jeri Presley MD ([id number]) on 05/28/2022 12:09:26 AM [facility] 12 dagy0475-05-27 06:09:33 Test Item Value Reference Range Interpretation Comments Ventricular rate (test 80 code = 253) Atrial rate (test code 80 = 255) VT interval (test code 156 = 266) QRSD [...] now present-QT has lengthened-Electronica lly Signed By Jeri Presley MD ([id number]) on 05/28/2022 12:09:26 AM [facility]2023-01-20 15:43:00 Test Item Value Reference Range Interpretation Comments Urine culture (test SEE COMMENT Bacteriu shannan screen code = 7420145) negative. [facility]2023-01-20 15:43:00 Test Item Value Reference Range Interpretation Comments Urine culture (test SEE COMMENT Bacteriu shannan screen code = 2463667) negative. [facility]2023-01-20 15:43:00 Test Item Value Reference Range Interpretation Comments Urine culture (test SEE COMMENT Bacteriu shannan screen code = 5119421) negative. [facility] ED Preliminary Interpretation - Not an [id number] 13:22:47 Test Item Value Reference Range Interpretation Comments JESSIE (test code = JESSIE) Ernie Ferris MD 05/27/2022 3:08 [facility] ED Preliminary Interpretation - Not an OrderPerformed by: Ernie Ferris MDAuthorized by: Ernie Ferris MD ECG reviewed by ED Physician in the absence of a vascular physician: yes Interpretation: Interpretation: abnormal Rate: ECG rate: 80 ECG rate assessment: normal Rhythm: Rhythm: sinus rhythm Ectopy: Ectopy: none QRS: QRS axis: NormalConduction: Conduction: normal ST segments: ST segments: NormalT waves: T waves: normal Other findings: Other findings: LAE Lab Interpretation Abnormal (test code = 39658-2) [facility] Preliminary Interpretation - Not an [id number] 13:22:47 Test Item Value Reference Range Interpretation Comments JESSIE (test code = JESSIE) Ernie Ferris MD 05/27/2022 3:08 [facility] Preliminary Interpretation - Not an OrderPerformed by: Ernie Ferris MDAuthorized by: Ernie Ferris MD ECG reviewed by ED Physician in the absence of a vascular physician: yes Interpretation: Interpretation: abnormal Rate: ECG rate: 80 ECG rate assessment: normal Rhythm: Rhythm: sinus rhythm Ectopy: Ectopy: none QRS: QRS axis: NormalConduction: Conduction: normal ST segments: ST segments: NormalT waves: T waves: normal Other findings: Other findings: LAE Lab Interpretation Abnormal (test code = 07078-2) [facility] Preliminary Interpretation - Not an [id number] 13:22:47 Test Item Value Reference Range Interpretation Comments JESSIE (test code = JESSIE) Ernie Ferris MD 05/27/2022 3:08 [facility] ED Preliminary Interpretation - Not an OrderPerformed by: Ernie Ferris MDAuthorized by: Ernie Ferris MD ECG reviewed by ED Physician in the absence of a vascular physician: yes Interpretation: Interpretation: abnormal Rate: ECG rate: 80 ECG rate assessment: normal Rhythm: Rhythm: sinus rhythm Ectopy: Ectopy: none QRS: QRS axis: NormalConduction: Conduction: normal ST segments: ST segments: NormalT waves: T waves: normal Other findings: Other findings: LAE Lab Interpretation Abnormal (test code = 79347-0) [facility] [Presence] in Respiratory specimen by CAMERON with probe [id number] 08:43:00 Test Item Value Reference Range Interpretation Comments SARS-CoV-2 (COVID-19) RNA Not detected [Presence] in Respiratory specimen by CAMERON with probe detection (test code = 85157-0) Whether patient is employed in a Unknown healthcare setting (test code = 83856-5) Whether the patient has symptoms Unknown related to condition of interest (test code = 27895-2) Whether the patient was Unknown hospitalized for condition of interest (test code = 53916-7) Whether the patient was admitted Unknown to intensive care unit (ICU) for condition of interest (test code = 53342-4) Whether patient resides in a Unknown congregate care setting (test code = 75417-5) status (test code = Unknown 04272-6) Date and time of symptom onset Unknown (test code = 94546-5) AMANDA CLARKDrug Screen,[id number] 21:30:00 Test Item Value Reference Range Interpretation [...] (test code = UPROP) UA, Urinalysis Rflx [id number] 21:30:00 Test Item Value Reference Range Interpretation Comments Color,Urine (test code = UCOL) Yellow Yellow Clarity,Urine (test code = Clear Clear UCLAR) Ph, Urine (test code = UPH) 5.5 5.0-9.0 N Specific [place],Urine (test >= 1.030 1.005-1.030 N code = [...] Negative code = ULEU) UF REFLEXUF REFLEXUrine [id number] 21:30:00 Test Item Value Reference Range Interpretation Comments RBC,Urine (test code = URBCUF) 26-50 /HPF 0-2 A WBC,Urine (test code = UWBCUF) 0-5 /HPF 0-5 Epithelial Cell,Urine (test None Seen /HPF 0-5 code = UECUF) Casts,Urine (test code = None Seen /LPF None Seen UCASTUF) Bacteria,Urine (test code = None Seen /hpf None Seen UBACTUF) UF REFLEXUF REFLEXComplete Blood Count Auto [id number] 20:05:00 Test Item Value Reference Range Interpretation [...] code = NRBCP) 0 % Comprehensive Metabolic [id number] 20:05:00 Test Item Value Reference Range Interpretation [...] race coefficient. Additional information can be found at:[id number]_f cb_ egfr_summary_fl angle 5.pdf (kidney.o rg) [Automated [...] 46-116 N (test code = ALP) Ethanol [id number] 20:05:00 Test Item Value Reference Range Interpretation Comments Ethanol (test code < 3 mg/dL The pharm acological = ETOH) response to blo od alcohol levels mayvary from individual to i ndividual. The fatal alyce ntrationhas been reported t o be >400mg/dL. Coronavirus NAAT, [id number] 20:05:00 Test Item Value Reference Range Interpretation Comments Coronavirus NAAT, COVD19 Reference Range: (test code = Negative ASOFBGN8YJIN) Coronavirus NAAT, COVD19 ical-devices/emergenc (test code = h-fuw-yifroofhzgvdds. THGPPRX0ZRNU2.1) SARS-CoV-2 NAAT Result: Negative by RT-PCR (test code = SARS-CoV-2 NAAT Result:) [id number] 16:34:00 Test Item Value Reference Range Interpretation Comments Coronavirus (COVID-19) Not Detected CAMERON (test code = (05/05/22 10:34 AM) Coronavirus (COVID-19) CAMERON) [address]12-29 16:34:00 Test Item Value Reference Range Interpretation Comments Coronavirus (COVID-19) Not Detected CAMERON (test code = (05/05/22 10:34 AM) Coronavirus (COVID-19) CAMERON) [address]12-29 16:34:00 Test Item Value Reference Range Interpretation Comments Coronavirus (COVID-19) Not Detected CAMERON (test code = (05/05/22 10:34 AM) Coronavirus (COVID-19) CAMERON) [address]12-29 16:34:00 Test Item Value Reference Range Interpretation Comments Coronavirus (COVID-19) Not Detected CAMERON (test code = (05/05/22 10:34 AM) Coronavirus (COVID-19) CAMERON) [address]12-29 16:34:00 Test Item Value Reference Range Interpretation Comments Coronavirus (COVID-19) Not Detected CAMERON (test code = (05/05/22 10:34 AM) Coronavirus (COVID-19) CAMERON) [address]12-29 16:34:00 Test Item Value Reference Range Interpretation Comments Coronavirus (COVID-19) Not Detected CAMERON (test code = (05/05/22 10:34 AM) Coronavirus (COVID-19) CAMERON) [address]12-29 16:34:00 Test Item Value Reference Range Interpretation Comments Coronavirus (COVID-19) Not Detected CAMERON (test code = (05/05/22 10:34 AM) Coronavirus (COVID-19) CAMERON) [address]12-29 16:34:00 Test Item Value Reference Range Interpretation Comments Coronavirus (COVID-19) Not Detected CAMERON (test code = (05/05/22 10:34 AM) Coronavirus (COVID-19) CAMERON) [address]12-29 16:34:00 Test Item Value Reference Range Interpretation Comments Coronavirus (COVID-19) Not Detected CAMERON (test code = (05/05/22 10:34 AM) Coronavirus (COVID-19) CAMERON) [id number] 19:20:00 Test Item Value Reference Range Interpretation Comments U Amph Scr (test code Negative *NA*(05/04/22 = U Amph Scr) 1:20 PM) [facility]lineBzzhwmyMQWOFQAHN2165-70-15 19:20:00 Test Item Value Reference Range Interpretation Comments U Sruthi Scr (test code Negative *NA*(05/04/22 = U Sruthi Scr) 1:20 PM) [facility]l[id number] 19:20:00 Test Item Value Reference Range Interpretation Comments U Benzodiaz Scr (test Negative *NA*(05/04/22 code = U Benzodiaz Scr) 1:20 PM) [facility]lineYvmigwmMURFBWOFX0869-23-38 19:20:00 Test Item Value Reference Range Interpretation Comments U Cocaine Scr (test Negative *NA*(05/04/22 code = U Cocaine Scr) 1:20 PM) [id number] 19:20:00 Test Item Value Reference Range Interpretation Comments U Cannab Scr (test Negative *NA*(05/04/22 code = U Cannab Scr) 1:20 PM) [facility]lineHyisjwiEOBRSUPJZ0077-91-63 19:20:00 Test Item Value Reference Range Interpretation Comments U Opiate Scr (test Negative *NA*(05/04/22 code = U Opiate Scr) 1:20 PM) [facility] Shorel[id number] 19:20:00 Test Item Value Reference Range Interpretation Comments U Phencyclidine Scr (test Negative code = U Phencyclidine *NA*(05/04/22 1:20 Scr) PM) [facility] ShorelineXcjqzubISOJVJMDJ3987-65-94 19:20:00 Test Item Value Reference Range Interpretation Comments UDS Note (test code = See Note *NA*(05/04/22 UDS Note) 1:20 PM) [facility] [id number] 19:20:00 Test Item Value Reference Range Interpretation Comments U Amph Scr (test code Negative *NA*(05/04/22 = U Amph Scr) 1:20 PM) [facility] [id number] 19:20:00 Test Item Value Reference Range Interpretation Comments U Sruthi Scr (test code Negative *NA*(05/04/22 = U Sruthi Scr) 1:20 PM) [facility] [id number] 19:20:00 Test Item Value Reference Range Interpretation Comments U Benzodiaz Scr (test Negative *NA*(05/04/22 code = U Benzodiaz Scr) 1:20 PM) [facility] [id number] 19:20:00 Test Item Value Reference Range Interpretation Comments U Cocaine Scr (test Negative *NA*(05/04/22 code = U Cocaine Scr) 1:20 PM) [facility] [id number] 19:20:00 Test Item Value Reference Range Interpretation Comments U Cannab Scr (test Negative *NA*(05/04/22 code = U Cannab Scr) 1:20 PM) [facility] [id number] 19:20:00 Test Item Value Reference Range Interpretation Comments U Opiate Scr (test Negative *NA*(05/04/22 code = U Opiate Scr) 1:20 PM) [facility] [id number] 19:20:00 Test Item Value Reference Range Interpretation Comments U Phencyclidine Scr (test Negative code = U Phencyclidine *NA*(05/04/22 1:20 Scr) PM) [facility] [id number] 19:20:00 Test Item Value Reference Range Interpretation Comments UDS Note (test code = See Note *NA*(05/04/22 UDS Note) 1:20 PM) [facility] [id number] 19:20:00 Test Item Value Reference Range Interpretation Comments UA Color (test code = Yellow *NA*(05/04/22 UA Color) 1:20 PM) [facility] [id number] 19:20:00 Test Item Value Reference Range Interpretation Comments UA Turbidity (test code Slight Cloudy = UA Turbidity) (05/04/22 1:20 PM) [facility] [id number] 19:20:00 Test Item Value Reference Range Interpretation Comments UA Spec Grav (test code = UA Spec 1.015 1 Grav) [facility] [id number] 19:20:00 Test Item Value Reference Range Interpretation Comments UA pH (test code = UA pH) 8.0 1 5.0-8.0 [facility] AND [id number] 19:20:00 Test Item Value Reference Range Interpretation Comments UA Protein (test code = UA Negative mg/dL Protein) [facility] AND [id number] 19:20:00 Test Item Value Reference Range Interpretation Comments UA Glucose (test code = UA Negative mg/dL Glucose) [facility] AND [id number] 19:20:00 Test Item Value Reference Range Interpretation Comments UA Ketones (test code = UA Negative mg/dL Ketones) [facility] AND [id number] 19:20:00 Test Item Value Reference Range Interpretation Comments UA Bili (test code = Negative *NA*(05/04/22 UA Bili) 1:20 PM) [facility] AND [id number] 19:20:00 Test Item Value Reference Range Interpretation Comments UA Blood (test code = Negative (05/04/22 1:20 UA Blood) PM) [facility] AND [id number] 19:20:00 Test Item Value Reference Range Interpretation Comments UA Urobilinogen (test code = UA 0.2 0.1-1.0 Urobilinogen) [facility] AND [id number] 19:20:00 Test Item Value Reference Range Interpretation Comments UA Nitrite (test code Negative (05/04/22 1:20 = UA Nitrite) PM) [facility] AND [id number] 19:20:00 Test Item Value Reference Range Interpretation Comments UA Leuk Est (test Negative (05/04/22 1:20 code = UA Leuk Est) PM) [facility] AND [id number] 19:20:00 Test Item Value Reference Range Interpretation Comments UA Sq Epi (test code = UA Sq Occasional /LPF Epi) [facility] AND [id number] 19:20:00 Test Item Value Reference Range Interpretation Comments UA WBC (test code = no gt See_Comment [Automa suze message] The UA WBC) system which ge nerated this result transmit suze reference range : <=5. The reference range was not used to interpr et this result as anselmo l/abnormal. [facility] AND [id number] 19:20:00 Test Item Value Reference Range Interpretation Comments UA Amorph Dahlia (test code = UA Few /HPF Amorph Dahlia) [id number] 19:20:00 Test Item Value Reference Range Interpretation Comments U Amph Scr (test code Negative *NA*(05/04/22 = U Amph Scr) 1:20 PM) [id number] 19:20:00 Test Item Value Reference Range Interpretation Comments U Sruthi Scr (test code Negative *NA*(05/04/22 = U Sruthi Scr) 1:20 PM) [facility] ShorelineDzufmkiSYWUNZDQC8054-05-40 19:20:00 Test Item Value Reference Range Interpretation Comments U Benzodiaz Scr (test Negative *NA*(05/04/22 code = U Benzodiaz Scr) 1:20 PM) [id number] 19:20:00 Test Item Value Reference Range Interpretation Comments U Cocaine Scr (test Negative *NA*(05/04/22 code = U Cocaine Scr) 1:20 PM) [facility] ShorelineEepdisxBKJEJDBSJ9950-69-48 19:20:00 Test Item Value Reference Range Interpretation Comments U Cannab Scr (test Negative *NA*(05/04/22 code = U Cannab Scr) 1:20 PM) [facility] ShorelineFxzvjwhIGTPQMAPM2115-28-56 19:20:00 Test Item Value Reference Range Interpretation Comments U Opiate Scr (test Negative *NA*(05/04/22 code = U Opiate Scr) 1:20 PM) [facility] ShorelineWnojbqbJHFEMIMDR6540-96-37 19:20:00 Test Item Value Reference Range Interpretation Comments U Phencyclidine Scr (test Negative code = U Phencyclidine *NA*(05/04/22 1:20 Scr) PM) [facility] Sho[id number] 19:20:00 Test Item Value Reference Range Interpretation Comments UDS Note (test code = See Note *NA*(05/04/22 UDS Note) 1:20 PM) [facility] [id number] 19:20:00 Test Item Value Reference Range Interpretation Comments U Amph Scr (test code Negative *NA*(05/04/22 = U Amph Scr) 1:20 PM) [facility] [id number] 19:20:00 Test Item Value Reference Range Interpretation Comments U Sruthi Scr (test code Negative *NA*(05/04/22 = U Sruthi Scr) 1:20 PM) [facility] [id number] 19:20:00 Test Item Value Reference Range Interpretation Comments U Benzodiaz Scr (test Negative *NA*(05/04/22 code = U Benzodiaz Scr) 1:20 PM) [facility] [id number] 19:20:00 Test Item Value Reference Range Interpretation Comments U Cocaine Scr (test Negative *NA*(05/04/22 code = U Cocaine Scr) 1:20 PM) [facility] [id number] 19:20:00 Test Item Value Reference Range Interpretation Comments U Cannab Scr (test Negative *NA*(05/04/22 code = U Cannab Scr) 1:20 PM) [facility] [id number] 19:20:00 Test Item Value Reference Range Interpretation Comments U Opiate Scr (test Negative *NA*(05/04/22 code = U Opiate Scr) 1:20 PM) [facility] [id number] 19:20:00 Test Item Value Reference Range Interpretation Comments U Phencyclidine Scr (test Negative code = U Phencyclidine *NA*(05/04/22 1:20 Scr) PM) [facility] [id number] 19:20:00 Test Item Value Reference Range Interpretation Comments UDS Note (test code = See Note *NA*(05/04/22 UDS Note) 1:20 PM) [facility] [id number] 19:20:00 Test Item Value Reference Range Interpretation Comments UA Color (test code = Yellow *NA*(05/04/22 UA Color) 1:20 PM) [facility] [id number] 19:20:00 Test Item Value Reference Range Interpretation Comments UA Turbidity (test code Slight Cloudy = UA Turbidity) (05/04/22 1:20 PM) [facility] [id number] 19:20:00 Test Item Value Reference Range Interpretation Comments UA Spec Grav (test code = UA Spec 1.015 1 Grav) [facility] [id number] 19:20:00 Test Item Value Reference Range Interpretation Comments UA pH (test code = UA pH) 8.0 1 5.0-8.0 [facility] AND [id number] 19:20:00 Test Item Value Reference Range Interpretation Comments UA Protein (test code = UA Negative mg/dL Protein) [facility] AND [id number] 19:20:00 Test Item Value Reference Range Interpretation Comments UA Glucose (test code = UA Negative mg/dL Glucose) [facility] AND [id number] 19:20:00 Test Item Value Reference Range Interpretation Comments UA Ketones (test code = UA Negative mg/dL Ketones) [facility] AND [id number] 19:20:00 Test Item Value Reference Range Interpretation Comments UA Bili (test code = Negative *NA*(05/04/22 UA Bili) 1:20 PM) [facility] AND [id number] 19:20:00 Test Item Value Reference Range Interpretation Comments UA Blood (test code = Negative (05/04/22 1:20 UA Blood) PM) [facility] AND [id number] 19:20:00 Test Item Value Reference Range Interpretation Comments UA Urobilinogen (test code = UA 0.2 0.1-1.0 Urobilinogen) [facility] AND [id number] 19:20:00 Test Item Value Reference Range Interpretation Comments UA Nitrite (test code Negative (05/04/22 1:20 = UA Nitrite) PM) [facility] AND [id number] 19:20:00 Test Item Value Reference Range Interpretation Comments UA Leuk Est (test Negative (05/04/22 1:20 code = UA Leuk Est) PM) [facility] AND [id number] 19:20:00 Test Item Value Reference Range Interpretation Comments UA Sq Epi (test code = UA Sq Occasional /LPF Epi) [facility] AND [id number] 19:20:00 Test Item Value Reference Range Interpretation Comments UA WBC (test code = no gt See_Comment [Automa suze message] The UA WBC) system which ge nerated this result transmit suze reference range : <=5. The reference range was not used to interpr et this result as anselmo l/abnormal. [facility] AND [id number] 19:20:00 Test Item Value Reference Range Interpretation Comments UA Amorph Dahlia (test code = UA Few /HPF Amorph Dahlia) [id number] 19:20:00 Test Item Value Reference Range Interpretation Comments U Amph Scr (test code Negative *NA*(05/04/22 = U Amph Scr) 1:20 PM) [facility]l[id number] 19:20:00 Test Item Value Reference Range Interpretation Comments U Sruthi Scr (test code Negative *NA*(05/04/22 = U Sruthi Scr) 1:20 PM) [facility] ShorelineYddakchFDCQDRNLM2527-66-99 19:20:00 Test Item Value Reference Range Interpretation Comments U Benzodiaz Scr (test Negative *NA*(05/04/22 code = U Benzodiaz Scr) 1:20 PM) [facility] Sho[id number] 19:20:00 Test Item Value Reference Range Interpretation Comments U Cocaine Scr (test Negative *NA*(05/04/22 code = U Cocaine Scr) 1:20 PM) [facility] ShorelineYuhvryjTZHIJIXDJ3418-03-36 19:20:00 Test Item Value Reference Range Interpretation Comments U Cannab Scr (test Negative *NA*(05/04/22 code = U Cannab Scr) 1:20 PM) [facility] Shorel[id number] 19:20:00 Test Item Value Reference Range Interpretation Comments U Opiate Scr (test Negative *NA*(05/04/22 code = U Opiate Scr) 1:20 PM) [id number] 19:20:00 Test Item Value Reference Range Interpretation Comments U Phencyclidine Scr (test Negative code = U Phencyclidine *NA*(05/04/22 1:20 Scr) PM) [id number] 19:20:00 Test Item Value Reference Range Interpretation Comments UDS Note (test code = See Note *NA*(05/04/22 UDS Note) 1:20 PM) [facility] [id number] 19:20:00 Test Item Value Reference Range Interpretation Comments U Amph Scr (test code Negative *NA*(05/04/22 = U Amph Scr) 1:20 PM) [facility] [id number] 19:20:00 Test Item Value Reference Range Interpretation Comments U Sruthi Scr (test code Negative *NA*(05/04/22 = U Sruthi Scr) 1:20 PM) [facility] [id number] 19:20:00 Test Item Value Reference Range Interpretation Comments U Benzodiaz Scr (test Negative *NA*(05/04/22 code = U Benzodiaz Scr) 1:20 PM) [facility] [id number] 19:20:00 Test Item Value Reference Range Interpretation Comments U Cocaine Scr (test Negative *NA*(05/04/22 code = U Cocaine Scr) 1:20 PM) [facility] [id number] 19:20:00 Test Item Value Reference Range Interpretation Comments U Cannab Scr (test Negative *NA*(05/04/22 code = U Cannab Scr) 1:20 PM) [facility] [id number] 19:20:00 Test Item Value Reference Range Interpretation Comments U Opiate Scr (test Negative *NA*(05/04/22 code = U Opiate Scr) 1:20 PM) [facility] [id number] 19:20:00 Test Item Value Reference Range Interpretation Comments U Phencyclidine Scr (test Negative code = U Phencyclidine *NA*(05/04/22 1:20 Scr) PM) [facility] [id number] 19:20:00 Test Item Value Reference Range Interpretation Comments UDS Note (test code = See Note *NA*(05/04/22 UDS Note) 1:20 PM) [facility] [id number] 19:20:00 Test Item Value Reference Range Interpretation Comments UA Color (test code = Yellow *NA*(05/04/22 UA Color) 1:20 PM) [facility] [id number] 19:20:00 Test Item Value Reference Range Interpretation Comments UA Turbidity (test code Slight Cloudy = UA Turbidity) (05/04/22 1:20 PM) [facility] [id number] 19:20:00 Test Item Value Reference Range Interpretation Comments UA Spec Grav (test code = UA Spec 1.015 1 Grav) [facility] [id number] 19:20:00 Test Item Value Reference Range Interpretation Comments UA pH (test code = UA pH) 8.0 1 5.0-8.0 [facility] [id number] 19:20:00 Test Item Value Reference Range Interpretation Comments UA Protein (test code = UA Negative mg/dL Protein) [facility] AND [id number] 19:20:00 Test Item Value Reference Range Interpretation Comments UA Glucose (test code = UA Negative mg/dL Glucose) [facility] AND [id number] 19:20:00 Test Item Value Reference Range Interpretation Comments UA Ketones (test code = UA Negative mg/dL Ketones) [facility] AND [id number] 19:20:00 Test Item Value Reference Range Interpretation Comments UA Bili (test code = Negative *NA*(05/04/22 UA Bili) 1:20 PM) [facility] AND [id number] 19:20:00 Test Item Value Reference Range Interpretation Comments UA Blood (test code = Negative (05/04/22 1:20 UA Blood) PM) [facility] AND [id number] 19:20:00 Test Item Value Reference Range Interpretation Comments UA Urobilinogen (test code = UA 0.2 0.1-1.0 Urobilinogen) [facility] AND [id number] 19:20:00 Test Item Value Reference Range Interpretation Comments UA Nitrite (test code Negative (05/04/22 1:20 = UA Nitrite) PM) [facility] AND [id number] 19:20:00 Test Item Value Reference Range Interpretation Comments UA Leuk Est (test Negative (05/04/22 1:20 code = UA Leuk Est) PM) [facility] AND [id number] 19:20:00 Test Item Value Reference Range Interpretation Comments UA Sq Epi (test code = UA Sq Occasional /LPF Epi) [facility] AND [id number] 19:20:00 Test Item Value Reference Range Interpretation Comments UA WBC (test code = no gt See_Comment [Automa suze message] The UA WBC) system which ge nerated this result transmit suze reference range : <=5. The reference range was not used to interpr et this result as anselmo l/abnormal. [facility] AND [id number] 19:20:00 Test Item Value Reference Range Interpretation Comments UA Amorph Dahlia (test code = UA Few /HPF Amorph Dahlia) [id number] 19:20:00 Test Item Value Reference Range Interpretation Comments U Amph Scr (test code Negative *NA*(05/04/22 = U Amph Scr) 1:20 PM) [id number] 19:20:00 Test Item Value Reference Range Interpretation Comments U Sruthi Scr (test code Negative *NA*(05/04/22 = U Sruthi Scr) 1:20 PM) [id number] 19:20:00 Test Item Value Reference Range Interpretation Comments U Benzodiaz Scr (test Negative *NA*(05/04/22 code = U Benzodiaz Scr) 1:20 PM) [id number] 19:20:00 Test Item Value Reference Range Interpretation Comments U Cocaine Scr (test Negative *NA*(05/04/22 code = U Cocaine Scr) 1:20 PM) [id number] 19:20:00 Test Item Value Reference Range Interpretation Comments U Cannab Scr (test Negative *NA*(05/04/22 code = U Cannab Scr) 1:20 PM) [id number] 19:20:00 Test Item Value Reference Range Interpretation Comments U Opiate Scr (test Negative *NA*(05/04/22 code = U Opiate Scr) 1:20 PM) [id number] 19:20:00 Test Item Value Reference Range Interpretation Comments U Phencyclidine Scr (test Negative code = U Phencyclidine *NA*(05/04/22 1:20 Scr) PM) [facility] S[id number] 19:20:00 Test Item Value Reference Range Interpretation Comments UDS Note (test code = See Note *NA*(05/04/22 UDS Note) 1:20 PM) [facility] [id number] 19:20:00 Test Item Value Reference Range Interpretation Comments U Amph Scr (test code Negative *NA*(05/04/22 = U Amph Scr) 1:20 PM) [facility] [id number] 19:20:00 Test Item Value Reference Range Interpretation Comments U Sruthi Scr (test code Negative *NA*(12/28/22 = U Sruthi Scr) 1:20 PM) [facility] [id number] 19:20:00 Test Item Value Reference Range Interpretation Comments U Benzodiaz Scr (test Negative *NA*(05/04/22 code = U Benzodiaz Scr) 1:20 PM) [facility] [id number] 19:20:00 Test Item Value Reference Range Interpretation Comments U Cocaine Scr (test Negative *NA*(05/04/22 code = U Cocaine Scr) 1:20 PM) [facility] [id number] 19:20:00 Test Item Value Reference Range Interpretation Comments U Cannab Scr (test Negative *NA*(05/04/22 code = U Cannab Scr) 1:20 PM) [facility] [id number] 19:20:00 Test Item Value Reference Range Interpretation Comments U Opiate Scr (test Negative *NA*(05/04/22 code = U Opiate Scr) 1:20 PM) [facility] [id number] 19:20:00 Test Item Value Reference Range Interpretation Comments U Phencyclidine Scr (test Negative code = U Phencyclidine *NA*(05/04/22 1:20 Scr) PM) [facility] [id number] 19:20:00 Test Item Value Reference Range Interpretation Comments UDS Note (test code = See Note *NA*(05/04/22 UDS Note) 1:20 PM) [facility] [id number] 19:20:00 Test Item Value Reference Range Interpretation Comments UA Color (test code = Yellow *NA*(05/04/22 UA Color) 1:20 PM) [facility] [id number] 19:20:00 Test Item Value Reference Range Interpretation Comments UA Turbidity (test code Slight Cloudy = UA Turbidity) (05/04/22 1:20 PM) [facility] [id number] 19:20:00 Test Item Value Reference Range Interpretation Comments UA Spec Grav (test code = UA Spec 1.015 1 Grav) [facility] [id number] 19:20:00 Test Item Value Reference Range Interpretation Comments UA pH (test code = UA pH) 8.0 1 5.0-8.0 [facility] [id number] 19:20:00 Test Item Value Reference Range Interpretation Comments UA Protein (test code = UA Negative mg/dL Protein) [facility] [id number] 19:20:00 Test Item Value Reference Range Interpretation Comments UA Glucose (test code = UA Negative mg/dL Glucose) [facility] AND [id number] 19:20:00 Test Item Value Reference Range Interpretation Comments UA Ketones (test code = UA Negative mg/dL Ketones) [facility] AND [id number] 19:20:00 Test Item Value Reference Range Interpretation Comments UA Bili (test code = Negative *NA*(05/04/22 UA Bili) 1:20 PM) [facility] AND [id number] 19:20:00 Test Item Value Reference Range Interpretation Comments UA Blood (test code = Negative (05/04/22 1:20 UA Blood) PM) [facility] AND [id number] 19:20:00 Test Item Value Reference Range Interpretation Comments UA Urobilinogen (test code = UA 0.2 0.1-1.0 Urobilinogen) [facility] AND [id number] 19:20:00 Test Item Value Reference Range Interpretation Comments UA Nitrite (test code Negative (05/04/22 1:20 = UA Nitrite) PM) [facility] AND [id number] 19:20:00 Test Item Value Reference Range Interpretation Comments UA Leuk Est (test Negative (05/04/22 1:20 code = UA Leuk Est) PM) [facility] AND [id number] 19:20:00 Test Item Value Reference Range Interpretation Comments UA Sq Epi (test code = UA Sq Occasional /LPF Epi) [facility] AND [id number] 19:20:00 Test Item Value Reference Range Interpretation Comments UA WBC (test code = no gt See_Comment [Automa suze message] The UA WBC) system which ge nerated this result transmit suze reference range : <=5. The reference range was not used to interpr et this result as anselmo l/abnormal. [facility] [id number] 19:20:00 Test Item Value Reference Range Interpretation Comments UA Amorph Dahlia (test code = UA Few /HPF Amorph Dahlia) [facility] [id number] 19:20:00 Test Item Value Reference Range Interpretation Comments U Amph Scr (test code Negative *NA*(05/04/22 = U Amph Scr) 1:20 PM) [facility] [id number] 19:20:00 Test Item Value Reference Range Interpretation Comments U Sruthi Scr (test code Negative *NA*(05/04/22 = U Sruthi Scr) 1:20 PM) [facility] [id number] 19:20:00 Test Item Value Reference Range Interpretation Comments U Benzodiaz Scr (test Negative *NA*(05/04/22 code = U Benzodiaz Scr) 1:20 PM) [facility] [id number] 19:20:00 Test Item Value Reference Range Interpretation Comments U Cocaine Scr (test Negative *NA*(05/04/22 code = U Cocaine Scr) 1:20 PM) [facility] [id number] 19:20:00 Test Item Value Reference Range Interpretation Comments U Cannab Scr (test Negative *NA*(05/04/22 code = U Cannab Scr) 1:20 PM) [facility] [id number] 19:20:00 Test Item Value Reference Range Interpretation Comments U Opiate Scr (test Negative *NA*(05/04/22 code = U Opiate Scr) 1:20 PM) [facility] [id number] 19:20:00 Test Item Value Reference Range Interpretation Comments U Phencyclidine Scr (test Negative code = U Phencyclidine *NA*(05/04/22 1:20 Scr) PM) [facility] [id number] 19:20:00 Test Item Value Reference Range Interpretation Comments UDS Note (test code = See Note *NA*(05/04/22 UDS Note) 1:20 PM) [facility] [id number] 19:20:00 Test Item Value Reference Range Interpretation Comments U Amph Scr (test code Negative *NA*(05/04/22 = U Amph Scr) 1:20 PM) [facility] [id number] 19:20:00 Test Item Value Reference Range Interpretation Comments U Sruthi Scr (test code Negative *NA*(05/04/22 = U Sruthi Scr) 1:20 PM) [facility] [id number] 19:20:00 Test Item Value Reference Range Interpretation Comments U Benzodiaz Scr (test Negative *NA*(05/04/22 code = U Benzodiaz Scr) 1:20 PM) [facility] [id number] 19:20:00 Test Item Value Reference Range Interpretation Comments U Cocaine Scr (test Negative *NA*(05/04/22 code = U Cocaine Scr) 1:20 PM) [facility] [id number] 19:20:00 Test Item Value Reference Range Interpretation Comments U Cannab Scr (test Negative *NA*(05/04/22 code = U Cannab Scr) 1:20 PM) [facility] [id number] 19:20:00 Test Item Value Reference Range Interpretation Comments U Opiate Scr (test Negative *NA*(05/04/22 code = U Opiate Scr) 1:20 PM) [facility] [id number] 19:20:00 Test Item Value Reference Range Interpretation Comments U Phencyclidine Scr (test Negative code = U Phencyclidine *NA*(05/04/22 1:20 Scr) PM) [facility] [id number] 19:20:00 Test Item Value Reference Range Interpretation Comments UDS Note (test code = See Note *NA*(05/04/22 UDS Note) 1:20 PM) [facility] [id number] 19:20:00 Test Item Value Reference Range Interpretation Comments UA Color (test code = Yellow *NA*(05/04/22 UA Color) 1:20 PM) [facility] [id number] 19:20:00 Test Item Value Reference Range Interpretation Comments UA Turbidity (test code Slight Cloudy = UA Turbidity) (05/04/22 1:20 PM) [facility] [id number] 19:20:00 Test Item Value Reference Range Interpretation Comments UA Spec Grav (test code = UA Spec 1.015 1 Grav) [facility] [id number] 19:20:00 Test Item Value Reference Range Interpretation Comments UA pH (test code = UA pH) 8.0 1 5.0-8.0 [facility] [id number] 19:20:00 Test Item Value Reference Range Interpretation Comments UA Protein (test code = UA Negative mg/dL Protein) [facility] AND [id number] 19:20:00 Test Item Value Reference Range Interpretation Comments UA Glucose (test code = UA Negative mg/dL Glucose) [facility] AND [id number] 19:20:00 Test Item Value Reference Range Interpretation Comments UA Ketones (test code = UA Negative mg/dL Ketones) [facility] AND [id number] 19:20:00 Test Item Value Reference Range Interpretation Comments UA Bili (test code = Negative *NA*(05/04/22 UA Bili) 1:20 PM) [facility] AND [id number] 19:20:00 Test Item Value Reference Range Interpretation Comments UA Blood (test code = Negative (05/04/22 1:20 UA Blood) PM) [facility] AND [id number] 19:20:00 Test Item Value Reference Range Interpretation Comments UA Urobilinogen (test code = UA 0.2 0.1-1.0 Urobilinogen) [facility] AND [id number] 19:20:00 Test Item Value Reference Range Interpretation Comments UA Nitrite (test code Negative (05/04/22 1:20 = UA Nitrite) PM) [facility] AND [id number] 19:20:00 Test Item Value Reference Range Interpretation Comments UA Leuk Est (test Negative (05/04/22 1:20 code = UA Leuk Est) PM) [facility] AND [id number] 19:20:00 Test Item Value Reference Range Interpretation Comments UA Sq Epi (test code = UA Sq Occasional /LPF Epi) [facility] AND [id number] 19:20:00 Test Item Value Reference Range Interpretation Comments UA WBC (test code = no gt See_Comment [Automa suze message] The UA WBC) system which ge nerated this result transmit suze reference range : <=5. The reference range was not used to interpr et this result as anselmo l/abnormal. [facility] AND [id number] 19:20:00 Test Item Value Reference Range Interpretation Comments UA Amorph Dahlia (test code = UA Few /HPF Amorph Dahlia) [facility] AND [id number] 19:20:00 Test Item Value Reference Range Interpretation Comments UA Color (test code = Yellow *NA*(05/04/22 UA Color) 1:20 PM) [facility] AND [id number] 19:20:00 Test Item Value Reference Range Interpretation Comments UA Turbidity (test code Slight Cloudy = UA Turbidity) (05/04/22 1:20 PM) [facility] AND [id number] 19:20:00 Test Item Value Reference Range Interpretation Comments UA Spec Grav (test code = UA Spec 1.015 1 Grav) [facility] AND [id number] 19:20:00 Test Item Value Reference Range Interpretation Comments UA pH (test code = UA pH) 8.0 1 5.0-8.0 [facility] AND [id number] 19:20:00 Test Item Value Reference Range Interpretation Comments UA Protein (test code = UA Negative mg/dL Protein) [facility] AND [id number] 19:20:00 Test Item Value Reference Range Interpretation Comments UA Glucose (test code = UA Negative mg/dL Glucose) [facility] AND [id number] 19:20:00 Test Item Value Reference Range Interpretation Comments UA Ketones (test code = UA Negative mg/dL Ketones) [facility] AND [id number] 19:20:00 Test Item Value Reference Range Interpretation Comments UA Bili (test code = Negative *NA*(05/04/22 UA Bili) 1:20 PM) [facility] AND [id number] 19:20:00 Test Item Value Reference Range Interpretation Comments UA Blood (test code = Negative (05/04/22 1:20 UA Blood) PM) [facility] AND [id number] 19:20:00 Test Item Value Reference Range Interpretation Comments UA Urobilinogen (test code = UA 0.2 0.1-1.0 Urobilinogen) [facility] AND [id number] 19:20:00 Test Item Value Reference Range Interpretation Comments UA Nitrite (test code Negative (05/04/22 1:20 = UA Nitrite) PM) [facility] AND [id number] 19:20:00 Test Item Value Reference Range Interpretation Comments UA Leuk Est (test Negative (05/04/22 1:20 code = UA Leuk Est) PM) [facility] [id number] 19:20:00 Test Item Value Reference Range Interpretation Comments UA Sq Epi (test code = UA Sq Occasional /LPF Epi) [facility] [id number] 19:20:00 Test Item Value Reference Range Interpretation Comments UA WBC (test code = no gt See_Comment [Automa suze message] The UA WBC) system which ge nerated this result transmit suze reference range : <=5. The reference range was not used to interpr et this result as anselmo l/abnormal. [facility] [id number] 19:20:00 Test Item Value Reference Range Interpretation Comments UA Amorph Dahlia (test code = UA Few /HPF Amorph Dahlia) [id number] 19:20:00 Test Item Value Reference Range Interpretation Comments U Amph Scr (test code Negative *NA*(05/04/22 = U Amph Scr) 1:20 PM) [facility] [id number] 19:20:00 Test Item Value Reference Range Interpretation Comments U Sruthi Scr (test code Negative *NA*(05/04/22 = U Sruthi Scr) 1:20 PM) [facility] S[id number] 19:20:00 Test Item Value Reference Range Interpretation Comments U Benzodiaz Scr (test Negative *NA*(05/04/22 code = U Benzodiaz Scr) 1:20 PM) [facility] S[id number] 19:20:00 Test Item Value Reference Range Interpretation Comments U Cocaine Scr (test Negative *NA*(05/04/22 code = U Cocaine Scr) 1:20 PM) [facility] S[id number] 19:20:00 Test Item Value Reference Range Interpretation Comments U Cannab Scr (test Negative *NA*(05/04/22 code = U Cannab Scr) 1:20 PM) [facility] S[id number] 19:20:00 Test Item Value Reference Range Interpretation Comments U Opiate Scr (test Negative *NA*(05/04/22 code = U Opiate Scr) 1:20 PM) [facility] S[id number] 19:20:00 Test Item Value Reference Range Interpretation Comments U Phencyclidine Scr (test Negative code = U Phencyclidine *NA*(05/04/22 1:20 Scr) PM) [facility] [id number] 19:20:00 Test Item Value Reference Range Interpretation Comments UDS Note (test code = See Note *NA*(05/04/22 UDS Note) 1:20 PM) [facility] [id number] 19:20:00 Test Item Value Reference Range Interpretation Comments U Amph Scr (test code Negative *NA*(05/04/22 = U Amph Scr) 1:20 PM) [facility] [id number] 19:20:00 Test Item Value Reference Range Interpretation Comments U Sruthi Scr (test code Negative *NA*(05/04/22 = U Sruthi Scr) 1:20 PM) [facility] [id number] 19:20:00 Test Item Value Reference Range Interpretation Comments U Benzodiaz Scr (test Negative *NA*(05/04/22 code = U Benzodiaz Scr) 1:20 PM) [facility] [id number] 19:20:00 Test Item Value Reference Range Interpretation Comments U Cocaine Scr (test Negative *NA*(05/04/22 code = U Cocaine Scr) 1:20 PM) [facility] [id number] 19:20:00 Test Item Value Reference Range Interpretation Comments U Cannab Scr (test Negative *NA*(05/04/22 code = U Cannab Scr) 1:20 PM) [facility] [id number] 19:20:00 Test Item Value Reference Range Interpretation Comments U Opiate Scr (test Negative *NA*(05/04/22 code = U Opiate Scr) 1:20 PM) [facility] [id number] 19:20:00 Test Item Value Reference Range Interpretation Comments U Phencyclidine Scr (test Negative code = U Phencyclidine *NA*(05/04/22 1:20 Scr) PM) [facility] [id number] 19:20:00 Test Item Value Reference Range Interpretation Comments UDS Note (test code = See Note *NA*(05/04/22 UDS Note) 1:20 PM) [facility] [id number] 19:20:00 Test Item Value Reference Range Interpretation Comments UA Color (test code = Yellow *NA*(05/04/22 UA Color) 1:20 PM) [facility] [id number] 19:20:00 Test Item Value Reference Range Interpretation Comments UA Turbidity (test code Slight Cloudy = UA Turbidity) (05/04/22 1:20 PM) [facility] [id number] 19:20:00 Test Item Value Reference Range Interpretation Comments UA Spec Grav (test code = UA Spec 1.015 1 Grav) [facility] AND [id number] 19:20:00 Test Item Value Reference Range Interpretation Comments UA pH (test code = UA pH) 8.0 1 5.0-8.0 [facility] [id number] 19:20:00 Test Item Value Reference Range Interpretation Comments UA Protein (test code = UA Negative mg/dL Protein) [facility] AND [id number] 19:20:00 Test Item Value Reference Range Interpretation Comments UA Glucose (test code = UA Negative mg/dL Glucose) [facility] AND [id number] 19:20:00 Test Item Value Reference Range Interpretation Comments UA Ketones (test code = UA Negative mg/dL Ketones) [facility] AND [id number] 19:20:00 Test Item Value Reference Range Interpretation Comments UA Bili (test code = Negative *NA*(05/04/22 UA Bili) 1:20 PM) [facility] AND [id number] 19:20:00 Test Item Value Reference Range Interpretation Comments UA Blood (test code = Negative (05/04/22 1:20 UA Blood) PM) [facility] AND [id number] 19:20:00 Test Item Value Reference Range Interpretation Comments UA Urobilinogen (test code = UA 0.2 0.1-1.0 Urobilinogen) [facility] [id number] 19:20:00 Test Item Value Reference Range Interpretation Comments UA Nitrite (test code Negative (05/04/22 1:20 = UA Nitrite) PM) [facility] [id number] 19:20:00 Test Item Value Reference Range Interpretation Comments UA Leuk Est (test Negative (05/04/22 1:20 code = UA Leuk Est) PM) [facility] [id number] 19:20:00 Test Item Value Reference Range Interpretation Comments UA Sq Epi (test code = UA Sq Occasional /LPF Epi) [facility] [id number] 19:20:00 Test Item Value Reference Range Interpretation Comments UA WBC (test code = no gt See_Comment [Automa suze message] The UA WBC) system which ge nerated this result transmit suze reference range : <=5. The reference range was not used to interpr et this result as anselmo l/abnormal. [facility] [id number] 19:20:00 Test Item Value Reference Range Interpretation Comments UA Amorph Dahlia (test code = UA Few /HPF Amorph Dahlia) [facility] AND [id number] 19:20:00 Test Item Value Reference Range Interpretation Comments UA Color (test code = Yellow *NA*(05/04/22 UA Color) 1:20 PM) [facility] AND [id number] 19:20:00 Test Item Value Reference Range Interpretation Comments UA Turbidity (test code Slight Cloudy = UA Turbidity) (05/04/22 1:20 PM) [facility] AND [id number] 19:20:00 Test Item Value Reference Range Interpretation Comments UA Spec Grav (test code = UA Spec 1.015 1 Grav) [facility] AND [id number] 19:20:00 Test Item Value Reference Range Interpretation Comments UA pH (test code = UA pH) 8.0 1 5.0-8.0 [facility] [id number] 19:20:00 Test Item Value Reference Range Interpretation Comments UA Protein (test code = UA Negative mg/dL Protein) [facility] AND [id number] 19:20:00 Test Item Value Reference Range Interpretation Comments UA Glucose (test code = UA Negative mg/dL Glucose) [facility] AND [id number] 19:20:00 Test Item Value Reference Range Interpretation Comments UA Ketones (test code = UA Negative mg/dL Ketones) [facility] [id number] 19:20:00 Test Item Value Reference Range Interpretation Comments UA Bili (test code = Negative *NA*(05/04/22 UA Bili) 1:20 PM) [facility] AND [id number] 19:20:00 Test Item Value Reference Range Interpretation Comments UA Blood (test code = Negative (05/04/22 1:20 UA Blood) PM) [facility] AND [id number] 19:20:00 Test Item Value Reference Range Interpretation Comments UA Urobilinogen (test code = UA 0.2 0.1-1.0 Urobilinogen) [facility] AND [id number] 19:20:00 Test Item Value Reference Range Interpretation Comments UA Nitrite (test code Negative (05/04/22 1:20 = UA Nitrite) PM) [facility] AND [id number] 19:20:00 Test Item Value Reference Range Interpretation Comments UA Leuk Est (test Negative (05/04/22 1:20 code = UA Leuk Est) PM) [facility] AND [id number] 19:20:00 Test Item Value Reference Range Interpretation Comments UA Sq Epi (test code = UA Sq Occasional /LPF Epi) [facility] AND [id number] 19:20:00 Test Item Value Reference Range Interpretation Comments UA WBC (test code = no gt See_Comment [Automa suze message] The UA WBC) system which ge nerated this result transmit suze reference range : <=5. The reference range was not used to interpr et this result as anselmo l/abnormal. [facility] AND [id number] 19:20:00 Test Item Value Reference Range Interpretation Comments UA Amorph Dahlia (test code = UA Few /HPF Amorph Dahlia) [facility]VhggtyoIXQMDZNKL6953-99-01 19:20:00 Test Item Value Reference Range Interpretation Comments U Amph Scr (test code Negative *NA*(05/04/22 = U Amph Scr) 1:20 PM) [facility] Shorel[id number] 19:20:00 Test Item Value Reference Range Interpretation Comments U Sruthi Scr (test code Negative *NA*(05/04/22 = U Sruthi Scr) 1:20 PM) [facility] ShorelineCdbslofKIHCVRVXT5480-78-11 19:20:00 Test Item Value Reference Range Interpretation Comments U Benzodiaz Scr (test Negative *NA*(05/04/22 code = U Benzodiaz Scr) 1:20 PM) [facility] ShorelineJtydruqEOEPSBJIF8775-50-46 19:20:00 Test Item Value Reference Range Interpretation Comments U Cocaine Scr (test Negative *NA*(05/04/22 code = U Cocaine Scr) 1:20 PM) [facility] Cen[id number] 19:20:00 Test Item Value Reference Range Interpretation Comments U Cannab Scr (test Negative *NA*(05/04/22 code = U Cannab Scr) 1:20 PM) [facility] [id number] 19:20:00 Test Item Value Reference Range Interpretation Comments U Opiate Scr (test Negative *NA*(05/04/22 code = U Opiate Scr) 1:20 PM) [facility] [id number] 19:20:00 Test Item Value Reference Range Interpretation Comments U Phencyclidine Scr (test Negative code = U Phencyclidine *NA*(05/04/22 1:20 Scr) PM) [facility] ShorelineWczgvigBFFDPKLFT8345-57-20 19:20:00 Test Item Value Reference Range Interpretation Comments UDS Note (test code = See Note *NA*(05/04/22 UDS Note) 1:20 PM) [facility]annDR[facility] [id number] 19:20:00 Test Item Value Reference Range Interpretation Comments U Amph Scr (test code Negative *NA*(05/04/22 = U Amph Scr) 1:20 PM) [facility]annDR[facility] [id number] 19:20:00 Test Item Value Reference Range Interpretation Comments U Sruthi Scr (test code Negative *NA*(05/04/22 = U Sruthi Scr) 1:20 PM) [facility]annDR[facility] [id number] 19:20:00 Test Item Value Reference Range Interpretation Comments U Benzodiaz Scr (test Negative *NA*(05/04/22 code = U Benzodiaz Scr) 1:20 PM) [facility]annDR[facility] [id number] 19:20:00 Test Item Value Reference Range Interpretation Comments U Cocaine Scr (test Negative *NA*(05/04/22 code = U Cocaine Scr) 1:20 PM) [facility]annDR[facility] [id number] 19:20:00 Test Item Value Reference Range Interpretation Comments U Cannab Scr (test Negative *NA*(05/04/22 code = U Cannab Scr) 1:20 PM) [facility]annDR[facility] [id number] 19:20:00 Test Item Value Reference Range Interpretation Comments U Opiate Scr (test Negative *NA*(05/04/22 code = U Opiate Scr) 1:20 PM) [facility] [id number] 19:20:00 Test Item Value Reference Range Interpretation Comments U Phencyclidine Scr (test Negative code = U Phencyclidine *NA*(05/04/22 1:20 Scr) PM) [facility] [id number] 19:20:00 Test Item Value Reference Range Interpretation Comments UDS Note (test code = See Note *NA*(05/04/22 UDS Note) 1:20 PM) [facility] [id number] 19:20:00 Test Item Value Reference Range Interpretation Comments UA Color (test code = Yellow *NA*(05/04/22 UA Color) 1:20 PM) [facility] [id number] 19:20:00 Test Item Value Reference Range Interpretation Comments UA Turbidity (test code Slight Cloudy = UA Turbidity) (05/04/22 1:20 PM) [facility] [id number] 19:20:00 Test Item Value Reference Range Interpretation Comments UA Spec Grav (test code = UA Spec 1.015 1 Grav) [facility] [id number] 19:20:00 Test Item Value Reference Range Interpretation Comments UA pH (test code = UA pH) 8.0 1 5.0-8.0 [facility] [id number] 19:20:00 Test Item Value Reference Range Interpretation Comments UA Protein (test code = UA Negative mg/dL Protein) [facility] [id number] 19:20:00 Test Item Value Reference Range Interpretation Comments UA Glucose (test code = UA Negative mg/dL Glucose) [facility] [id number] 19:20:00 Test Item Value Reference Range Interpretation Comments UA Ketones (test code = UA Negative mg/dL Ketones) [facility] [id number] 19:20:00 Test Item Value Reference Range Interpretation Comments UA Bili (test code = Negative *NA*(05/04/22 UA Bili) 1:20 PM) [facility] [id number] 19:20:00 Test Item Value Reference Range Interpretation Comments UA Blood (test code = Negative (05/04/22 1:20 UA Blood) PM) [facility] AND [id number] 19:20:00 Test Item Value Reference Range Interpretation Comments UA Urobilinogen (test code = UA 0.2 0.1-1.0 Urobilinogen) [facility] AND [id number] 19:20:00 Test Item Value Reference Range Interpretation Comments UA Nitrite (test code Negative (05/04/22 1:20 = UA Nitrite) PM) [facility] AND [id number] 19:20:00 Test Item Value Reference Range Interpretation Comments UA Leuk Est (test Negative (05/04/22 1:20 code = UA Leuk Est) PM) [facility] AND [id number] 19:20:00 Test Item Value Reference Range Interpretation Comments UA Sq Epi (test code = UA Sq Occasional /LPF Epi) [facility] AND [id number] 19:20:00 Test Item Value Reference Range Interpretation Comments UA WBC (test code = no gt See_Comment [Automa suze message] The UA WBC) system which ge nerated this result transmit suze reference range : <=5. The reference range was not used to interpr et this result as anselmo l/abnormal. [facility] AND [id number] 19:20:00 Test Item Value Reference Range Interpretation Comments UA Amorph Dahlia (test code = UA Few /HPF Amorph Dahlia) [facility] CenterUbihqwlHBZZDUZKFT9365-21-09 19:15:00 Test Item Value Reference Range Interpretation Comments Hep C Ab (test code = Hep C Ab) [facility]-REACTIVE [facility] Cent[id number] 19:15:00 Test Item Value Reference Range Interpretation Comments Hep Signal to Cut-Off (test code = Hep 0.02 1 Signal to Cut-Off) [id number] 19:15:00 Test Item Value Reference Range Interpretation Comments [facility] HIV 4th GEN (test Negative *NA*(05/04/22 code = CDC HIV 4th 1:15 PM) GEN) [facility] [id number] 19:15:00 Test Item Value Reference Range Interpretation Comments Hep C Ab (test code = Hep C Ab) [facility]ACTIVE [facility] Cent[id number] 19:15:00 Test Item Value Reference Range Interpretation Comments Hep Signal to Cut-Off (test code = Hep 0.02 1 Signal to Cut-Off) [facility] CenterRqzfxugSACHYUPWCJ9768-27-10 19:15:00 Test Item Value Reference Range Interpretation Comments [facility] HIV 4th GEN (test Negative *NA*(05/04/22 code = CDC HIV 4th 1:15 PM) GEN) [facility] Cent[id number] 19:15:00 Test Item Value Reference Range Interpretation Comments Hep C Ab (test code = Hep C Ab) NON-REACTIVE [facility] Cent[id number] 19:15:00 Test Item Value Reference Range Interpretation Comments Hep Signal to Cut-Off (test code = Hep 0.02 1 Signal to Cut-Off) [facility] CenterKmpkhbzHBVSVGJQET2574-11-09 19:15:00 Test Item Value Reference Range Interpretation Comments [facility] HIV 4th GEN (test Negative *NA*(05/04/22 code = [facility] HIV 4th 1:15 PM) GEN) [facility] CenterEbzrcumUKIWQMKWPP2529-93-32 19:15:00 Test Item Value Reference Range Interpretation Comments Hep C Ab (test code = Hep C Ab) [facility]REACTIVE [facility] CenterGhhskjjTJLBTYTEKH4611-27-66 19:15:00 Test Item Value Reference Range Interpretation Comments Hep Signal to Cut-Off (test code = Hep 0.02 1 Signal to Cut-Off) [facility] Cent[id number] 19:15:00 Test Item Value Reference Range Interpretation Comments [facility] HIV 4th GEN (test Negative *NA*(05/04/22 code = CDC HIV 4th 1:15 PM) GEN) [facility] [id number] 19:15:00 Test Item Value Reference Range Interpretation Comments Hep C Ab (test code = Hep C Ab) NON-REACTIVE [facility] C[id number] 19:15:00 Test Item Value Reference Range Interpretation Comments Hep Signal to Cut-Off (test code = Hep 0.02 1 Signal to Cut-Off) [facility] CenterSvmrwobEROSENXPCS5400-06-06 19:15:00 Test Item Value Reference Range Interpretation Comments [facility] HIV 4th GEN (test Negative *NA*(05/04/22 code = [facility] HIV 4th 1:15 PM) GEN) [facility] [id number] 19:15:00 Test Item Value Reference Range Interpretation Comments Hep C Ab (test code = Hep C Ab) NON-REACTIVE [facility] Cent[id number] 19:15:00 Test Item Value Reference Range Interpretation Comments Hep Signal to Cut-Off (test code = Hep 0.02 1 Signal to Cut-Off) [facility] CenterBylejkwIEEOVMQDIM5362-21-96 19:15:00 Test Item Value Reference Range Interpretation Comments [facility] HIV 4th GEN (test Negative *NA*(05/04/22 code = CDC HIV 4th 1:15 PM) GEN) [facility] CenterVajcevoLFEGDGPDTM5135-74-60 19:15:00 Test Item Value Reference Range Interpretation Comments Hep C Ab (test code = Hep C Ab) [facility]-REACTIVE [facility] CenterTykvdrxBFNRTFCAWT2923-80-18 19:15:00 Test Item Value Reference Range Interpretation Comments Hep Signal to Cut-Off (test code = Hep 0.02 1 Signal to Cut-Off) [facility] Cent[id number] 19:15:00 Test Item Value Reference Range Interpretation Comments [facility] HIV 4th GEN (test Negative *NA*(05/04/22 code = [facility] HIV 4th 1:15 PM) GEN) [facility] CenterTerwdfcJKKWIURDYQ7612-10-82 19:15:00 Test Item Value Reference Range Interpretation Comments Hep C Ab (test code = Hep C Ab) [facility]-REACTIVE [facility] CenterNotqbqlCSKGSWZXBJ0393-75-01 19:15:00 Test Item Value Reference Range Interpretation Comments Hep Signal to Cut-Off (test code = Hep 0.02 1 Signal to Cut-Off) [facility] CenterQhwxeldHAPTOQFOQW9701-70-03 19:15:00 Test Item Value Reference Range Interpretation Comments [facility] HIV 4th GEN (test Negative *NA*(05/04/22 code = CDC HIV 4th 1:15 PM) GEN) [facility] CenterZedsxowJTNXTRKGEH3607-12-72 19:15:00 Test Item Value Reference Range Interpretation Comments Hep C Ab (test code = Hep C Ab) [facility]REACTIVE [facility] CenterFiaugtiOYDFWFNDFJ0263-35-54 19:15:00 Test Item Value Reference Range Interpretation Comments Hep Signal to Cut-Off (test code = Hep 0.02 1 Signal to Cut-Off) [facility] CenterZnlgcdxQFTIFAXWNW0128-08-72 19:15:00 Test Item Value Reference Range Interpretation Comments [facility] HIV 4th GEN (test Negative *NA*(05/04/22 code = CDC HIV 4th 1:15 PM) GEN) [facility]KxkggcsWLZCAD5198-06-08 17:53:43 Test Item Value Reference Range Interpretation Comments RADRPT (test code = EXAM: XR CHEST 1 VIEWDATE: RADRPT) 05/04/2022 11:12INDICATION: - ingestionCOMPARISON: NoneTECHNIQUE: AP chestFINDINGS: Lines and tubes: None.Lungs and Pleura: No rob consolidation or other pulmonary or pleural based abnormality is identified. Heart and mediastinum: Unremarkable for acute abnormality.Chest wall: Unremarkable.Bones: No acute bony abnormality is identified.IMPRESSION: No acute abnormality. [facility] CenterNhmnvoxXDBNYZ8774-94-22 17:53:43 Test Item Value Reference Range Interpretation Comments RADRPT (test code = EXAM: XR CHEST 1 VIEWDATE: RADRPT) 05/04/2022 11:12INDICATION: - ingestionCOMPARISON: NoneTECHNIQUE: AP chestFINDINGS: Lines and tubes: None.Lungs and Pleura: No rob consolidation or other pulmonary or pleural based abnormality is identified. Heart and mediastinum: Unremarkable for acute abnormality.Chest wall: Unremarkable.Bones: No acute bony abnormality is identified.IMPRESSION: No acute abnormality. [facility] CenterVpghsprDOPGXQ0235-66-85 17:53:43 Test Item Value Reference Range Interpretation Comments RADRPT (test code = EXAM: XR CHEST 1 VIEWDATE: RADRPT) 05/04/2022 11:12INDICATION: - ingestionCOMPARISON: NoneTECHNIQUE: AP chestFINDINGS: Lines and tubes: None.Lungs and Pleura: No rob consolidation or other pulmonary or pleural based abnormality is identified. Heart and mediastinum: Unremarkable for acute abnormality.Chest wall: Unremarkable.Bones: No acute bony abnormality is identified.IMPRESSION: No acute abnormality. [facility] CenterWdtaxwkGONVJE2549-71-69 17:53:43 Test Item Value Reference Range Interpretation Comments RADRPT (test code = EXAM: XR CHEST 1 VIEWDATE: RADRPT) 05/04/2022 11:12INDICATION: - ingestionCOMPARISON: NoneTECHNIQUE: AP chestFINDINGS: Lines and tubes: None.Lungs and Pleura: No rob consolidation or other pulmonary or pleural based abnormality is identified. Heart and mediastinum: Unremarkable for acute abnormality.Chest wall: Unremarkable.Bones: No acute bony abnormality is identified.IMPRESSION: No acute abnormality. [place] 159212-12-28 17:53:43 Test Item Value Reference Range Interpretation Comments RADRPT (test code = EXAM: XR CHEST 1 VIEWDATE: RADRPT) 05/04/2022 11:12INDICATION: - ingestionCOMPARISON: NoneTECHNIQUE: AP chestFINDINGS: Lines and tubes: None.Lungs and Pleura: No rob consolidation or other pulmonary or pleural based abnormality is identified. Heart and mediastinum: Unremarkable for acute abnormality.Chest wall: Unremarkable.Bones: No acute bony abnormality is identified.IMPRESSION: No acute abnormality. [place] 159212-12-28 17:53:43 Test Item Value Reference Range Interpretation Comments RADRPT (test code = EXAM: XR CHEST 1 VIEWDATE: RADRPT) 05/04/2022 11:12INDICATION: - ingestionCOMPARISON: NoneTECHNIQUE: AP chestFINDINGS: Lines and tubes: None.Lungs and Pleura: No rob consolidation or other pulmonary or pleural based abnormality is identified. Heart and mediastinum: Unremarkable for acute abnormality.Chest wall: Unremarkable.Bones: No acute bony abnormality is identified.IMPRESSION: No acute abnormality. [place] 159212-12-28 17:53:43 Test Item Value Reference Range Interpretation Comments RADRPT (test code = EXAM: XR CHEST 1 VIEWDATE: RADRPT) 05/04/2022 11:12INDICATION: - ingestionCOMPARISON: NoneTECHNIQUE: AP chestFINDINGS: Lines and tubes: None.Lungs and Pleura: No rob consolidation or other pulmonary or pleural based abnormality is identified. Heart and mediastinum: Unremarkable for acute abnormality.Chest wall: Unremarkable.Bones: No acute bony abnormality is identified.IMPRESSION: No acute abnormality. [facility] CenterHcxyquoEIIMGDJNFY4420-51-96 17:53:00 Test Item Value Reference Range Interpretation Comments Hct (test code = Hct) 43.9 42.0-54.0 [facility] CenterLeczmaoCQYVMBIJQP5381-18-02 17:53:00 Test Item Value Reference Range Interpretation Comments MCV (test code = MCV) 92.4 80.0-94.0 [facility] CenterCxvulumCWJNGIJFPY6495-69-41 17:53:00 Test Item Value Reference Range Interpretation Comments MCH (test code = MCH) 30.6 pg 27.0-31.0 [facility] CenterUhbnjekOEFEXJGWTL2973-17-20 17:53:00 Test Item Value Reference Range Interpretation Comments MCHC (test code = MCHC) 33.1 32.0-36.0 [facility] CenterIgphqicKOWLOSFZTD6959-75-71 17:53:00 Test Item Value Reference Range Interpretation Comments RDW (test code = RDW) 13.5 11.5-14.5 [facility] CenterUdlkdtiXQDPYJEDLO8680-44-78 17:53:00 Test Item Value Reference Range Interpretation Comments Platelet (test code = Platelet) 229 133-450 [facility] CenterNjfvdiwJFOLBNBGDT9875-45-72 17:53:00 Test Item Value Reference Range Interpretation Comments MPV (test code = MPV) 8.6 7.4-10.4 [place] 505542-12-28 17:53:00 Test Item Value Reference Range Interpretation Comments Segs (test code = Segs) 72.3 45.0-75.0 [place] 505542-12-28 17:53:00 Test Item Value Reference Range Interpretation Comments Lymphocytes (test code = Lymphocytes) 16.4 20.0-40.0 [facility] CenterYztkkbuZVGLXPTZSC3124-29-36 17:53:00 Test Item Value Reference Range Interpretation Comments Monocytes (test code = Monocytes) 7.4 2.0-12.0 [facility] CenterFrwiqryVUDLHLGJEU0582-85-17 17:53:00 Test Item Value Reference Range Interpretation Comments Eosinophils (test code = 3.5 See_Comment [A utomated message] The Eosinophils) system which ge nerated this result tra nsmitted reference range : <=4.0. The reference r peri was not used to int erpret this result as normal/abnormal . [place] 505542-12-28 17:53:00 Test Item Value Reference Range Interpretation Comments Basophils (test code = 0.4 See_Comment [Aut omated message] The Basophils) system which ge nerated this result tra nsmitted reference range : <=1.0. The reference r peri was not used to int erpret this result as normal/abnormal . [facility] CenterHzbzltbZZWRMPKSBJ6958-63-63 17:53:00 Test Item Value Reference Range Interpretation Comments Neutrophils # (test code = Neutrophils 7.1 1.5-8.1 #) [place] 505542-12-28 17:53:00 Test Item Value Reference Range Interpretation Comments Lymphocytes # (test code = Lymphocytes 1.6 1.0-5.5 #) [place] 505542-12-28 17:53:00 Test Item Value Reference Range Interpretation Comments Monocytes # (test code 0.7 See_Comment [Aut omated message] The = Monocytes #) system which generated this result tra nsmitted reference range : <=0.8. The reference r peri was not used to int erpret this result as normal/abnormal . [place] 505542-12-28 17:53:00 Test Item Value Reference Range Interpretation Comments Eosinophils # (test code 0.3 See_Comment [A utomated message] The = Eosinophils #) system whic h generated this result tra nsmitted reference range : <=0.5. The reference r prei was not used to int erpret this result as normal/abnormal . [facility] CenterHqjazabOWZTZCJIDH1505-32-59 17:53:00 Test Item Value Reference Range Interpretation Comments Acetaminoph Lvl (test code = no gt 10-20 Acetaminoph Lvl) [facility]VejwrvcJUIZHMDVWK7752-68-17 17:53:00 Test Item Value Reference Range Interpretation Comments Ethanol Lvl (test code = Ethanol Lvl) no gt [facility] CenterNvsykdcASANPGUXDG8001-14-44 17:53:00 Test Item Value Reference Range Interpretation Comments Etoh (%) (test code = Etoh (%)) no gt [facility] CenterGquhsgxKWLGXSWIDW9371-41-66 17:53:00 Test Item Value Reference Range Interpretation Comments Salicylate Lvl (test no gt See_Comment [Autom ated message] The code = Salicylate Lvl) syste m which generated this result tra nsmitted reference range : <=30.0. The reference r peri was not used to int erpret this result as normal/abnormal . [facility] CenterHoot.Me ICQUV5850-08-16 17:53:00 Test Item Value Reference Range Interpretation Comments Glucose Lvl (test code = Glucose Lvl) 107 70-99 [facility] CenterHoot.[facility] IHVRI9830-65-25 17:53:00 Test Item Value Reference Range Interpretation Comments BUN (test code = BUN) 10 7-22 [place] [address]-12-28 17:53:00 Test Item Value Reference Range Interpretation Comments Creatinine Lvl (test code = Creatinine 0.67 0.50-1.40 Lvl) [place] [address]-12-28 17:53:00 Test Item Value Reference Range Interpretation Comments Sodium Lvl (test code = Sodium Lvl) 142 135-145 [place] 493092-12-28 17:53:00 Test Item Value Reference Range Interpretation Comments Potassium Lvl (test code = Potassium 3.7 3.5-5.1 Lvl) [address]12-28 17:53:00 Test Item Value Reference Range Interpretation Comments Chloride Lvl (test code = Chloride Lvl) 111 95-109 [place] 493092-12-28 17:53:00 Test Item Value Reference Range Interpretation Comments CO2 (test code = CO2) 27 24-32 [place] 493092-12-28 17:53:00 Test Item Value Reference Range Interpretation Comments Calcium Lvl (test code = Calcium Lvl) 9.4 8.5-10.5 [place] [address]-12-28 17:53:00 Test Item Value Reference Range Interpretation Comments Total Protein (test code = Total 5.8 6.4-8.4 Protein) [address]12-28 17:53:00 Test Item Value Reference Range Interpretation Comments Albumin Lvl (test code = Albumin Lvl) 3.0 3.5-5.0 [place] [address]-12-28 17:53:00 Test Item Value Reference Range Interpretation Comments ALT (test code = ALT) 26 See_Comment [Auto mated message] The system which ge nerated this result transmit suze reference range : <=65. The reference range was not used to interpr et this result as anselmo l/abnormal. [address]12-28 17:53:00 Test Item Value Reference Range Interpretation Comments AST (test code = AST) 18 See_Comment [Auto mated message] The system which ge nerated this result transmit suze reference range : <=37. The reference range was not used to interpr et this result as anselmo l/abnormal. [place] [address]-12-28 17:53:00 Test Item Value Reference Range Interpretation Comments Alk Phos (test code = Alk Phos) 64 39-136 [place] 493092-12-28 17:53:00 Test Item Value Reference Range Interpretation Comments Bili Total (test code = Bili Total) 0.5 0.2-1.3 [place] 493092-12-28 17:53:00 Test Item Value Reference Range Interpretation Comments AGAP (test code = AGAP) 7.7 10.0-20.0 [place] 493092-12-28 17:53:00 Test Item Value Reference Range Interpretation Comments B/C Ratio (test code = B/C Ratio) 15 1 6-25 [place] [address]-12-28 17:53:00 Test Item Value Reference Range Interpretation Comments Globulin (test code = Globulin) 2.8 2.7-4.2 [place] 493092-12-28 17:53:00 Test Item Value Reference Range Interpretation Comments A/G Ratio (test code = A/G Ratio) 1.1 1 0.7-1.6 [place] [address]-12-28 17:53:00 Test Item Value Reference Range Interpretation Comments eGFR (test code = eGFR) 118 [place] 493092-12-28 17:53:00 Test Item Value Reference Range Interpretation Comments Lipase Lvl (test code = Lipase Lvl) 160 73-393 [place] 493092-12-28 17:53:00 Test Item Value Reference Range Interpretation Comments Bili Direct (test code 0.1 See_Comment [Aut omated message] The = Bili Direct) system which generated this result tra nsmitted reference range : <=0.3. The reference r peri was not used to int erpret this result as anselmo l/abnormal. [place] 683112-12-28 17:53:00 Test Item Value Reference Range Interpretation Comments Glucose Lvl (test code = Glucose Lvl) 107 70-99 [place] 683112-12-28 17:53:00 Test Item Value Reference Range Interpretation Comments BUN (test code = BUN) 10 7-22 [place] 683112-12-28 17:53:00 Test Item Value Reference Range Interpretation Comments Creatinine Lvl (test code = Creatinine 0.67 0.50-1.40 Lvl) [facility]KytughjQFEXKQUNF0792-16-39 17:53:00 Test Item Value Reference Range Interpretation Comments Sodium Lvl (test code = Sodium Lvl) 142 135-145 [place] 683112-12-28 17:53:00 Test Item Value Reference Range Interpretation Comments Potassium Lvl (test code = Potassium 3.7 3.5-5.1 Lvl) [place] 683112-12-28 17:53:00 Test Item Value Reference Range Interpretation Comments Chloride Lvl (test code = Chloride Lvl) 111 95-109 [place] [address]-12-28 17:53:00 Test Item Value Reference Range Interpretation Comments CO2 (test code = CO2) 27 24-32 [place] 683112-12-28 17:53:00 Test Item Value Reference Range Interpretation Comments Calcium Lvl (test code = Calcium Lvl) 9.4 8.5-10.5 [place] 683112-12-28 17:53:00 Test Item Value Reference Range Interpretation Comments Total Protein (test code = Total 5.8 6.4-8.4 Protein) [facility]lineIxbdmetQSWXOPONO8317-56-68 17:53:00 Test Item Value Reference Range Interpretation Comments Albumin Lvl (test code = Albumin Lvl) 3.0 3.5-5.0 [facility]lineBbpgbwhUAVLZQBHM9656-78-59 17:53:00 Test Item Value Reference Range Interpretation Comments ALT (test code = ALT) 26 See_Comment [Auto mated message] The system which nerated this result transmit suze reference range : <=65. The reference range was not used to interpr et this result as anselmo l/abnormal. [facility] ShorelineHksbxffUSOKZJTJQ9608-02-42 17:53:00 Test Item Value Reference Range Interpretation Comments AST (test code = AST) 18 See_Comment [Auto mated message] The system which ge nerated this result transmit suze reference range : <=37. The reference range was not used to interpr et this result as anselmo l/abnormal. [place] [address]-12-28 17:53:00 Test Item Value Reference Range Interpretation Comments Alk Phos (test code = Alk Phos) 64 39-136 [place] 683112-12-28 17:53:00 Test Item Value Reference Range Interpretation Comments Bili Total (test code = Bili Total) 0.5 0.2-1.3 [facility]lineEtrpqvbWZRGDQCJA3350-61-66 17:53:00 Test Item Value Reference Range Interpretation Comments AGAP (test code = AGAP) 7.7 10.0-20.0 [facility] ShorelineItviehxNOLNGVQGO7848-93-64 17:53:00 Test Item Value Reference Range Interpretation Comments B/C Ratio (test code = B/C Ratio) 15 1 6-25 [facility]lineNoudugrPPRXWHFWY9468-94-38 17:53:00 Test Item Value Reference Range Interpretation Comments Globulin (test code = Globulin) 2.8 2.7-4.2 [facility]lineBfcnbrjKWQDQVJTY5616-87-93 17:53:00 Test Item Value Reference Range Interpretation Comments A/G Ratio (test code = A/G Ratio) 1.1 1 0.7-1.6 [facility]lineYcwepmtUWBYMHAWT2616-83-08 17:53:00 Test Item Value Reference Range Interpretation Comments eGFR (test code = eGFR) 118 [facility]lineXbjiprfLYPLAJWYK5486-62-43 17:53:00 Test Item Value Reference Range Interpretation Comments Lipase Lvl (test code = Lipase Lvl) 160 73-393 [facility] ShorelineJivzzvmCZQHQZERY0877-94-21 17:53:00 Test Item Value Reference Range Interpretation Comments Acetaminoph Lvl (test code = no gt 10-20 Acetaminoph Lvl) [facility]lineYrjvopfQFATUFCXV0614-63-55 17:53:00 Test Item Value Reference Range Interpretation Comments Ethanol Lvl (test code = Ethanol Lvl) no gt [facility]lineNjmrghvSUFYIBQZF7392-27-32 17:53:00 Test Item Value Reference Range Interpretation Comments Etoh (%) (test code = Etoh (%)) no gt [facility]lineErxmtheFSHUAIOHZ8220-50-67 17:53:00 Test Item Value Reference Range Interpretation Comments Salicylate Lvl (test no gt See_Comment [Autom ated message] The code = Salicylate Lvl) syste m which generated this result tra nsmitted reference range : <=30.0. The reference r peri was not used to int erpret this result as normal/abnormal . [facility] CenterUylobatYOADNHNVA2650-76-36 17:53:00 Test Item Value Reference Range Interpretation Comments Bili Direct (test code 0.1 See_Comment [Aut omated message] The = Bili Direct) system which generated this result tra nsmitted reference range : <=0.3. The reference r peri was not used to int erpret this result as anselmo l/abnormal. [facility] CenterGwqvgntBLHYVADHDJ8859-96-48 17:53:00 Test Item Value Reference Range Interpretation Comments WBC X 10x3 (test code = WBC X 10x3) 9.9 3.7-10.4 [facility] CenterJovznptIPXHOAAVFH9788-55-30 17:53:00 Test Item Value Reference Range Interpretation Comments RBC X 10x6 (test code = RBC X 10x6) 4.74 4.70-6.10 [facility] CenterTvflgjmBGIOEHQWXD2255-42-37 17:53:00 Test Item Value Reference Range Interpretation Comments Hgb (test code = Hgb) 14.5 14.0-18.0 [place] 505542-12-28 17:53:00 Test Item Value Reference Range Interpretation Comments Hct (test code = Hct) 43.9 42.0-54.0 [facility] CenterBzoulcvPGHCLIIBUO1633-04-51 17:53:00 Test Item Value Reference Range Interpretation Comments MCV (test code = MCV) 92.4 80.0-94.0 [facility] CenterRpofsbvDREAJKQLRP9966-77-59 17:53:00 Test Item Value Reference Range Interpretation Comments MCH (test code = MCH) 30.6 pg 27.0-31.0 [facility] CenterYnujilkPNUQDYPHGF2575-55-15 17:53:00 Test Item Value Reference Range Interpretation Comments MCHC (test code = MCHC) 33.1 32.0-36.0 [facility] CenterNwssktqTKDFINWMMT0210-21-52 17:53:00 Test Item Value Reference Range Interpretation Comments RDW (test code = RDW) 13.5 11.5-14.5 [place] 505542-12-28 17:53:00 Test Item Value Reference Range Interpretation Comments Platelet (test code = Platelet) 229 133-450 [facility] CenterOmvmbyyLDOBSTPRGW1088-10-67 17:53:00 Test Item Value Reference Range Interpretation Comments MPV (test code = MPV) 8.6 7.4-10.4 [place] 505542-12-28 17:53:00 Test Item Value Reference Range Interpretation Comments Segs (test code = Segs) 72.3 45.0-75.0 [facility] CenterEnoqcrwQTGASJFJYC1737-18-55 17:53:00 Test Item Value Reference Range Interpretation Comments Lymphocytes (test code = Lymphocytes) 16.4 20.0-40.0 [place] 505542-12-28 17:53:00 Test Item Value Reference Range Interpretation Comments Monocytes (test code = Monocytes) 7.4 2.0-12.0 [place] 505542-12-28 17:53:00 Test Item Value Reference Range Interpretation Comments Eosinophils (test code = 3.5 See_Comment [A utomated message] The Eosinophils) system which ge nerated this result tra nsmitted reference range : <=4.0. The reference r peri was not used to int erpret this result as normal/abnormal . [place] 505542-12-28 17:53:00 Test Item Value Reference Range Interpretation Comments Basophils (test code = 0.4 See_Comment [Aut omated message] The Basophils) system which ge nerated this result tra nsmitted reference range : <=1.0. The reference r peri was not used to int erpret this result as normal/abnormal . [facility] CenterGxxmdfhVWVZNRLKHG1485-05-12 17:53:00 Test Item Value Reference Range Interpretation Comments Neutrophils # (test code = Neutrophils 7.1 1.5-8.1 #) [place] 505542-12-28 17:53:00 Test Item Value Reference Range Interpretation Comments Lymphocytes # (test code = Lymphocytes 1.6 1.0-5.5 #) [place] 505542-12-28 17:53:00 Test Item Value Reference Range Interpretation Comments Monocytes # (test code 0.7 See_Comment [Aut omated message] The = Monocytes #) system which generated this result tra nsmitted reference range : <=0.8. The reference r peri was not used to int erpret this result as normal/abnormal . [place] 505542-12-28 17:53:00 Test Item Value Reference Range Interpretation Comments Eosinophils # (test code 0.3 See_Comment [A utomated message] The = Eosinophils #) system ic h generated this result tra nsmitted reference range : <=0.5. The reference r peri was not used to int erpret this result as normal/abnormal . [place] 895492-12-28 17:53:00 Test Item Value Reference Range Interpretation Comments Acetaminoph Lvl (test code = no gt 10-20 Acetaminoph Lvl) [place] 895492-12-28 17:53:00 Test Item Value Reference Range Interpretation Comments Ethanol Lvl (test code = Ethanol Lvl) no gt [place] 87785022-12-28 17:53:00 Test Item Value Reference Range Interpretation Comments Etoh (%) (test code = Etoh (%)) no gt [place] 87785022-12-28 17:53:00 Test Item Value Reference Range Interpretation Comments Salicylate Lvl (test no gt See_Comment [Autom ated message] The code = Salicylate Lvl) syste m which generated this result tra nsmitted reference range : <=30.0. The reference r peri was not used to int erpret this result as normal/abnormal . [facility] JWWBC7159-28-95 17:53:00 Test Item Value Reference Range Interpretation Comments Glucose Lvl (test code = Glucose Lvl) 107 70-99 [facility]Clew CBBKT0398-24-67 17:53:00 Test Item Value Reference Range Interpretation Comments BUN (test code = BUN) 10 7-22 [place] 493092-12-28 17:53:00 Test Item Value Reference Range Interpretation Comments Creatinine Lvl (test code = Creatinine 0.67 0.50-1.40 Lvl) [place] 493092-12-28 17:53:00 Test Item Value Reference Range Interpretation Comments Sodium Lvl (test code = Sodium Lvl) 142 135-145 [facility]Clew FBAVZ6430-14-44 17:53:00 Test Item Value Reference Range Interpretation Comments Potassium Lvl (test code = Potassium 3.7 3.5-5.1 Lvl) [facility]Hoot[facility] YMBTD0431-85-10 17:53:00 Test Item Value Reference Range Interpretation Comments Chloride Lvl (test code = Chloride Lvl) 111 95-109 [facility] CenterdoughFIRSTHEALTHGLRIU6307-57-79 17:53:00 Test Item Value Reference Range Interpretation Comments CO2 (test code = CO2) 27 24-32 [facility] CenterH[facility] WMKUC7069-25-71 17:53:00 Test Item Value Reference Range Interpretation Comments Calcium Lvl (test code = Calcium Lvl) 9.4 8.5-10.5 [facility] CenterdoughDALE [place] 81311OVQOD6737-34-68 17:53:00 Test Item Value Reference Range Interpretation Comments Total Protein (test code = Total 5.8 6.4-8.4 Protein) [address]12-28 17:53:00 Test Item Value Reference Range Interpretation Comments Albumin Lvl (test code = Albumin Lvl) 3.0 3.5-5.0 [facility] CenterH[facility] FHHUU4454-69-49 17:53:00 Test Item Value Reference Range Interpretation Comments ALT (test code = ALT) 26 See_Comment [Auto mated message] The system which ge nerated this result transmit suze reference range : <=65. The reference range was not used to interpr et this result as anselmo l/abnormal. [facility] Center[facility] OXZTR3633-86-29 17:53:00 Test Item Value Reference Range Interpretation Comments AST (test code = AST) 18 See_Comment [Auto mated message] The system which ge nerated this result transmit suze reference range : <=37. The reference range was not used to interpr et this result as anselmo l/abnormal. [facility] Center[facility] ZJPHV5701-36-93 17:53:00 Test Item Value Reference Range Interpretation Comments Alk Phos (test code = Alk Phos) 64 39-136 [facility] CenterH[facility] FWPTJ0587-98-67 17:53:00 Test Item Value Reference Range Interpretation Comments Bili Total (test code = Bili Total) 0.5 0.2-1.3 [facility] OFLNE2904-64-54 17:53:00 Test Item Value Reference Range Interpretation Comments AGAP (test code = AGAP) 7.7 10.0-20.0 [facility] [id number] 17:53:00 Test Item Value Reference Range Interpretation Comments B/C Ratio (test code = B/C Ratio) 15 1 6-25 [facility] [id number] 17:53:00 Test Item Value Reference Range Interpretation Comments Globulin (test code = Globulin) 2.8 2.7-4.2 [facility] INcubes GBAQZ8920-29-99 17:53:00 Test Item Value Reference Range Interpretation Comments A/G Ratio (test code = A/G Ratio) 1.1 1 0.7-1.6 [place] 493092-12-28 17:53:00 Test Item Value Reference Range Interpretation Comments eGFR (test code = eGFR) 118 [place] 493092-12-28 17:53:00 Test Item Value Reference Range Interpretation Comments Lipase Lvl (test code = Lipase Lvl) 160 73-393 [place] 493092-12-28 17:53:00 Test Item Value Reference Range Interpretation Comments Bili Direct (test code 0.1 See_Comment [Aut omated message] The = Bili Direct) system which generated this result tra nsmitted reference range : <=0.3. The reference r peri was not used to int erpret this result as anselmo l/abnormal. [facility]lineOrgesqlRFLEGDFYT1931-17-49 17:53:00 Test Item Value Reference Range Interpretation Comments Glucose Lvl (test code = Glucose Lvl) 107 70-99 [place] 683112-12-28 17:53:00 Test Item Value Reference Range Interpretation Comments BUN (test code = BUN) 10 7-22 [place] 683112-12-28 17:53:00 Test Item Value Reference Range Interpretation Comments Creatinine Lvl (test code = Creatinine 0.67 0.50-1.40 Lvl) [facility]lineSmqajqjXXPHLQOET3581-69-14 17:53:00 Test Item Value Reference Range Interpretation Comments Sodium Lvl (test code = Sodium Lvl) 142 135-145 [place] 683112-12-28 17:53:00 Test Item Value Reference Range Interpretation Comments Potassium Lvl (test code = Potassium 3.7 3.5-5.1 Lvl) [place] 683112-12-28 17:53:00 Test Item Value Reference Range Interpretation Comments Chloride Lvl (test code = Chloride Lvl) 111 95-109 [place] 683112-12-28 17:53:00 Test Item Value Reference Range Interpretation Comments CO2 (test code = CO2) 27 24-32 [place] 683112-12-28 17:53:00 Test Item Value Reference Range Interpretation Comments Calcium Lvl (test code = Calcium Lvl) 9.4 8.5-10.5 [place] 683112-12-28 17:53:00 Test Item Value Reference Range Interpretation Comments Total Protein (test code = Total 5.8 6.4-8.4 Protein) [facility] JlbfiihXTDWRWDDE0062-12-99 17:53:00 Test Item Value Reference Range Interpretation Comments Albumin Lvl (test code = Albumin Lvl) 3.0 3.5-5.0 [facility] CenterFbhdntrPDXQNGWRN7801-01-13 17:53:00 Test Item Value Reference Range Interpretation Comments ALT (test code = ALT) 26 See_Comment [Auto mated message] The system which ge nerated this result transmit suze reference range : <=65. The reference range was not used to interpr et this result as anselmo l/abnormal. [facility] OrrgmkvWPVUBYRAH0476-42-00 17:53:00 Test Item Value Reference Range Interpretation Comments AST (test code = AST) 18 See_Comment [Auto mated message] The system which ge nerated this result transmit suze reference range : <=37. The reference range was not used to interpr et this result as anselmo l/abnormal. [facility] WxqfqdcQPQXCELKH4512-73-93 17:53:00 Test Item Value Reference Range Interpretation Comments Alk Phos (test code = Alk Phos) 64 39-136 [facility] NnaluhpXKYHFKRFY0553-53-91 17:53:00 Test Item Value Reference Range Interpretation Comments Bili Total (test code = Bili Total) 0.5 0.2-1.3 [facility] CenterUdgurouZQCADFDFJ9541-59-59 17:53:00 Test Item Value Reference Range Interpretation Comments AGAP (test code = AGAP) 7.7 10.0-20.0 [facility] NxgxtyrHMSFQCOUA5580-41-78 17:53:00 Test Item Value Reference Range Interpretation Comments B/C Ratio (test code = B/C Ratio) 15 1 6-25 [facility] YjyjnkyIAXMZPNCD7494-82-15 17:53:00 Test Item Value Reference Range Interpretation Comments Globulin (test code = Globulin) 2.8 2.7-4.2 [facility] CenterBuuasyzHKBENZGXV7829-93-19 17:53:00 Test Item Value Reference Range Interpretation Comments A/G Ratio (test code = A/G Ratio) 1.1 1 0.7-1.6 [facility] TuhlunhTTKDFYWNG2606-09-14 17:53:00 Test Item Value Reference Range Interpretation Comments eGFR (test code = eGFR) 118 [facility]lineYejroygZZMTNITQK3901-17-90 17:53:00 Test Item Value Reference Range Interpretation Comments Lipase Lvl (test code = Lipase Lvl) 160 73-393 [facility] ShorelineJyfercuFWBONDYVU9049-64-00 17:53:00 Test Item Value Reference Range Interpretation Comments Acetaminoph Lvl (test code = no gt 10-20 Acetaminoph Lvl) [facility] ShorelineIlwiuekTPLKLLWGJ2139-74-08 17:53:00 Test Item Value Reference Range Interpretation Comments Ethanol Lvl (test code = Ethanol Lvl) no gt [facility] ShorelineBjlqaakEAXNYFUIV5191-67-83 17:53:00 Test Item Value Reference Range Interpretation Comments Etoh (%) (test code = Etoh (%)) no gt [facility]lineEgcnyomKDQWQLFJT2531-24-65 17:53:00 Test Item Value Reference Range Interpretation Comments Salicylate Lvl (test no gt See_Comment [Autom ated message] The code = Salicylate Lvl) syste m which generated this result tra nsmitted reference range : <=30.0. The reference r peri was not used to int erpret this result as normal/abnormal . [facility] ShorelineIxdmessBDOLVYCOL5988-20-81 17:53:00 Test Item Value Reference Range Interpretation Comments Bili Direct (test code 0.1 See_Comment [Aut omated message] The = Bili Direct) system which generated this result tra nsmitted reference range : <=0.3. The reference r peri was not used to int erpret this result as anselmo l/abnormal. [facility] CenterTeczhmyQXTPYWCSHI4240-64-66 17:53:00 Test Item Value Reference Range Interpretation Comments WBC X 10x3 (test code = WBC X 10x3) 9.9 3.7-10.4 [place] 505542-12-28 17:53:00 Test Item Value Reference Range Interpretation Comments RBC X 10x6 (test code = RBC X 10x6) 4.74 4.70-6.10 [facility] CenterOzlpnjzTOUHHLWEMR3541-62-70 17:53:00 Test Item Value Reference Range Interpretation Comments Hgb (test code = Hgb) 14.5 14.0-18.0 [facility] CenterXyuingzGZMNLEJKNG7846-19-96 17:53:00 Test Item Value Reference Range Interpretation Comments Hct (test code = Hct) 43.9 42.0-54.0 [place] 505542-12-28 17:53:00 Test Item Value Reference Range Interpretation Comments MCV (test code = MCV) 92.4 80.0-94.0 [place] 505542-12-28 17:53:00 Test Item Value Reference Range Interpretation Comments MCH (test code = MCH) 30.6 pg 27.0-31.0 [place] 505542-12-28 17:53:00 Test Item Value Reference Range Interpretation Comments MCHC (test code = MCHC) 33.1 32.0-36.0 [place] [address]-12-28 17:53:00 Test Item Value Reference Range Interpretation Comments RDW (test code = RDW) 13.5 11.5-14.5 [place] 505542-12-28 17:53:00 Test Item Value Reference Range Interpretation Comments Platelet (test code = Platelet) 229 133-450 [facility] CenterQfaijadSGDOLWTCIL1583-71-30 17:53:00 Test Item Value Reference Range Interpretation Comments MPV (test code = MPV) 8.6 7.4-10.4 [place] [address]-12-28 17:53:00 Test Item Value Reference Range Interpretation Comments Segs (test code = Segs) 72.3 45.0-75.0 [place] [address]-12-28 17:53:00 Test Item Value Reference Range Interpretation Comments Lymphocytes (test code = Lymphocytes) 16.4 20.0-40.0 [place] 505542-12-28 17:53:00 Test Item Value Reference Range Interpretation Comments Monocytes (test code = Monocytes) 7.4 2.0-12.0 [place] [address]-12-28 17:53:00 Test Item Value Reference Range Interpretation Comments Eosinophils (test code = 3.5 See_Comment [A utomated message] The Eosinophils) system which ge nerated this result tra nsmitted reference range : <=4.0. The reference r peri was not used to int erpret this result as normal/abnormal . [place] 505542-12-28 17:53:00 Test Item Value Reference Range Interpretation Comments Basophils (test code = 0.4 See_Comment [Aut omated message] The Basophils) system which ge nerated this result tra nsmitted reference range : <=1.0. The reference r peri was not used to int erpret this result as normal/abnormal . [facility] CenterYvgugxnAIQHPLYAHQ0071-69-21 17:53:00 Test Item Value Reference Range Interpretation Comments Neutrophils # (test code = Neutrophils 7.1 1.5-8.1 #) [facility] CenterYbpmpgeEDMNDGJRKC9166-80-62 17:53:00 Test Item Value Reference Range Interpretation Comments Lymphocytes # (test code = Lymphocytes 1.6 1.0-5.5 #) [facility] CenterSimrwtsFCTLSHMMAA2034-53-81 17:53:00 Test Item Value Reference Range Interpretation Comments Monocytes # (test code 0.7 See_Comment [Aut omated message] The = Monocytes #) system which generated this result tra nsmitted reference range : <=0.8. The reference r peri was not used to int erpret this result as normal/abnormal . [facility] CenterQulgcjwKGQFUHGSAO1192-66-37 17:53:00 Test Item Value Reference Range Interpretation Comments Eosinophils # (test code 0.3 See_Comment [A utomated message] The = Eosinophils #) system whic h generated this result tra nsmitted reference range : <=0.5. The reference r peri was not used to int erpret this result as normal/abnormal . [place] 87785022-12-28 17:53:00 Test Item Value Reference Range Interpretation Comments Acetaminoph Lvl (test code = no gt 10-20 Acetaminoph Lvl) [place] 87785022-12-28 17:53:00 Test Item Value Reference Range Interpretation Comments Ethanol Lvl (test code = Ethanol Lvl) [facility] gt [facility]FpgayzqSVUGXVTQVP8582-60-71 17:53:00 Test Item Value Reference Range Interpretation Comments Etoh (%) (test code = Etoh (%)) no gt [place] 87785022-12-28 17:53:00 Test Item Value Reference Range Interpretation Comments Salicylate Lvl (test no gt See_Comment [Autom ated message] The code = Salicylate Lvl) syste m which generated this result tra nsmitted reference range : <=30.0. The reference r peri was not used to int erpret this result as normal/abnormal . [place] 493092-12-28 17:53:00 Test Item Value Reference Range Interpretation Comments Glucose Lvl (test code = Glucose Lvl) 107 70-99 [place] [address]-12-28 17:53:00 Test Item Value Reference Range Interpretation Comments BUN (test code = BUN) 10 7-22 [place] 493092-12-28 17:53:00 Test Item Value Reference Range Interpretation Comments Creatinine Lvl (test code = Creatinine 0.67 0.50-1.40 Lvl) [place] 493092-12-28 17:53:00 Test Item Value Reference Range Interpretation Comments Sodium Lvl (test code = Sodium Lvl) 142 135-145 [place] 493092-12-28 17:53:00 Test Item Value Reference Range Interpretation Comments Potassium Lvl (test code = Potassium 3.7 3.5-5.1 Lvl) [place] 493092-12-28 17:53:00 Test Item Value Reference Range Interpretation Comments Chloride Lvl (test code = Chloride Lvl) 111 95-109 [place] 493092-12-28 17:53:00 Test Item Value Reference Range Interpretation Comments CO2 (test code = CO2) 27 24-32 [place] 493092-12-28 17:53:00 Test Item Value Reference Range Interpretation Comments Calcium Lvl (test code = Calcium Lvl) 9.4 8.5-10.5 [place] 493092-12-28 17:53:00 Test Item Value Reference Range Interpretation Comments Total Protein (test code = Total 5.8 6.4-8.4 Protein) [place] 493092-12-28 17:53:00 Test Item Value Reference Range Interpretation Comments Albumin Lvl (test code = Albumin Lvl) 3.0 3.5-5.0 [place] 493092-12-28 17:53:00 Test Item Value Reference Range Interpretation Comments ALT (test code = ALT) 26 See_Comment [Auto mated message] The system which ge nerated this result transmit suze reference range : <=65. The reference range was not used to interpr et this result as anselmo l/abnormal. [place] 493092-12-28 17:53:00 Test Item Value Reference Range Interpretation Comments AST (test code = AST) 18 See_Comment [Auto mated message] The system which ge nerated this result transmit suze reference range : <=37. The reference range was not used to interpr et this result as anselmo l/abnormal. [facility] [id number] 17:53:00 Test Item Value Reference Range Interpretation Comments Alk Phos (test code = Alk Phos) 64 39-136 [facility] [id number] 17:53:00 Test Item Value Reference Range Interpretation Comments Bili Total (test code = Bili Total) 0.5 0.2-1.3 [facility] [id number] 17:53:00 Test Item Value Reference Range Interpretation Comments AGAP (test code = AGAP) 7.7 10.0-20.0 [facility] [id number] 17:53:00 Test Item Value Reference Range Interpretation Comments B/C Ratio (test code = B/C Ratio) 15 1 6-25 [facility] [id number] 17:53:00 Test Item Value Reference Range Interpretation Comments Globulin (test code = Globulin) 2.8 2.7-4.2 [facility] [id number] 17:53:00 Test Item Value Reference Range Interpretation Comments A/G Ratio (test code = A/G Ratio) 1.1 1 0.7-1.6 [place] [address]94-12-28 17:53:00 Test Item Value Reference Range Interpretation Comments eGFR (test code = eGFR) 118 [facility] [address]11JKXVL0498-16-32 17:53:00 Test Item Value Reference Range Interpretation Comments Lipase Lvl (test code = Lipase Lvl) 160 73-393 [facility] [id number] 17:53:00 Test Item Value Reference Range Interpretation Comments Bili Direct (test code 0.1 See_Comment [Aut omated message] The = Bili Direct) system which generated this result tra nsmitted reference range : <=0.3. The reference r peri was not used to int erpret this result as anselmo l/abnormal. [facility] CenterMylmzfgYASWQIHMF7772-70-14 17:53:00 Test Item Value Reference Range Interpretation Comments Glucose Lvl (test code = Glucose Lvl) 107 70-99 [facility] CenterIlxiycnOOYCAQRSA1499-69-42 17:53:00 Test Item Value Reference Range Interpretation Comments BUN (test code = BUN) 10 7-22 [place] 683112-12-28 17:53:00 Test Item Value Reference Range Interpretation Comments Creatinine Lvl (test code = Creatinine 0.67 0.50-1.40 Lvl) [place] 683112-12-28 17:53:00 Test Item Value Reference Range Interpretation Comments Sodium Lvl (test code = Sodium Lvl) 142 135-145 [place] 683112-12-28 17:53:00 Test Item Value Reference Range Interpretation Comments Potassium Lvl (test code = Potassium 3.7 3.5-5.1 Lvl) [facility]lineSbgeuteKNMOZSAEP7012-80-57 17:53:00 Test Item Value Reference Range Interpretation Comments Chloride Lvl (test code = Chloride Lvl) 111 95-109 [place] 683112-12-28 17:53:00 Test Item Value Reference Range Interpretation Comments CO2 (test code = CO2) 27 24-32 [place] 683112-12-28 17:53:00 Test Item Value Reference Range Interpretation Comments Calcium Lvl (test code = Calcium Lvl) 9.4 8.5-10.5 [facility]lineXhklzvwDEJXAOXTO3674-19-44 17:53:00 Test Item Value Reference Range Interpretation Comments Total Protein (test code = Total 5.8 6.4-8.4 Protein) [facility] ShorelineSwkwjpeHONKEOUQM4405-79-45 17:53:00 Test Item Value Reference Range Interpretation Comments Albumin Lvl (test code = Albumin Lvl) 3.0 3.5-5.0 [place] 683112-12-28 17:53:00 Test Item Value Reference Range Interpretation Comments ALT (test code = ALT) 26 See_Comment [Auto mated message] The system which ge nerated this result transmit suze reference range : <=65. The reference range was not used to interpr et this result as anselmo l/abnormal. [place] 27156-12-28 17:53:00 Test Item Value Reference Range Interpretation Comments AST (test code = AST) 18 See_Comment [Auto mated message] The system which ge nerated this result transmit suze reference range : <=37. The reference range was not used to interpr et this result as anselmo l/abnormal. [facility] ShorelineLovfideQONJZTAYJ0822-99-91 17:53:00 Test Item Value Reference Range Interpretation Comments Alk Phos (test code = Alk Phos) 64 39-136 [place] 683112-12-28 17:53:00 Test Item Value Reference Range Interpretation Comments Bili Total (test code = Bili Total) 0.5 0.2-1.3 [facility] ShorelineOcsmbsqWJMDAAZRV3627-39-19 17:53:00 Test Item Value Reference Range Interpretation Comments AGAP (test code = AGAP) 7.7 10.0-20.0 [facility] ShorelineFxkpntbUJLQUACDS5026-98-65 17:53:00 Test Item Value Reference Range Interpretation Comments B/C Ratio (test code = B/C Ratio) 15 1 6-25 [facility] ShorelineOuyovgfNFTEDOXMJ2143-64-98 17:53:00 Test Item Value Reference Range Interpretation Comments Globulin (test code = Globulin) 2.8 2.7-4.2 [facility] ShorelinePochsirATBXULYSC2532-19-34 17:53:00 Test Item Value Reference Range Interpretation Comments A/G Ratio (test code = A/G Ratio) 1.1 1 0.7-1.6 [place] 683112-12-28 17:53:00 Test Item Value Reference Range Interpretation Comments eGFR (test code = eGFR) 118 [facility] ShorelineHrbnixnNYBUAJHDB7852-33-27 17:53:00 Test Item Value Reference Range Interpretation Comments Lipase Lvl (test code = Lipase Lvl) 160 73-393 [facility] ShorelineKmheganPPGEYUKSC4150-71-91 17:53:00 Test Item Value Reference Range Interpretation Comments Acetaminoph Lvl (test code = no gt 10-20 Acetaminoph Lvl) [facility] ShorelineBnucxxvYIYAMOLQW3931-94-65 17:53:00 Test Item Value Reference Range Interpretation Comments Ethanol Lvl (test code = Ethanol Lvl) no gt [facility] ShorelineNxjxtnfZFQVYMSGM9971-76-76 17:53:00 Test Item Value Reference Range Interpretation Comments Etoh (%) (test code = Etoh (%)) no gt [facility] ShorelineMxrcajxUFFLRQRHJ8585-61-26 17:53:00 Test Item Value Reference Range Interpretation Comments Salicylate Lvl (test no gt See_Comment [Autom ated message] The code = Salicylate Lvl) syste m which generated this result tra nsmitted reference range : <=30.0. The reference r peri was not used to int erpret this result as normal/abnormal . [facility]IklppggGTLNHPQOO8217-44-76 17:53:00 Test Item Value Reference Range Interpretation Comments Bili Direct (test code 0.1 See_Comment [Aut omated message] The = Bili Direct) system which generated this result tra nsmitted reference range : <=0.3. The reference r peri was not used to int erpret this result as anselmo l/abnormal. [facility]GgkvsbvBWNAFCPWMN7828-30-81 17:53:00 Test Item Value Reference Range Interpretation Comments WBC X 10x3 (test code = WBC X 10x3) 9.9 3.7-10.4 [facility] CenterKjhgiuyDUIREBDZKI4139-39-56 17:53:00 Test Item Value Reference Range Interpretation Comments RBC X 10x6 (test code = RBC X 10x6) 4.74 4.70-6.10 [facility] CenterKeegrfcKYETGQVLMS3619-23-36 17:53:00 Test Item Value Reference Range Interpretation Comments Hgb (test code = Hgb) 14.5 14.0-18.0 [facility] HospitalKdznsgbIZPFLTPMFK1824-50-96 17:53:00 Test Item Value Reference Range Interpretation Comments Hct (test code = Hct) 43.9 42.0-54.0 [facility] HospitalPpdqojaDOIWASIVCU3349-93-02 17:53:00 Test Item Value Reference Range Interpretation Comments MCV (test code = MCV) 92.4 80.0-94.0 [facility] CenterIbvlajbGJHLZITGAF4967-90-02 17:53:00 Test Item Value Reference Range Interpretation Comments MCH (test code = MCH) 30.6 pg 27.0-31.0 [facility] HospitalKzmbuwxCEYEJVGLKT6960-34-83 17:53:00 Test Item Value Reference Range Interpretation Comments MCHC (test code = MCHC) 33.1 32.0-36.0 [facility] HospitalHpjxwatFRYXQOJWRQ1236-40-66 17:53:00 Test Item Value Reference Range Interpretation Comments RDW (test code = RDW) 13.5 11.5-14.5 [facility] HospitalKgkewojSTFQDBLMVD5986-87-09 17:53:00 Test Item Value Reference Range Interpretation Comments Platelet (test code = Platelet) 229 133-450 [facility] HospitalVxkhvziTXGJQKGAOF7929-00-60 17:53:00 Test Item Value Reference Range Interpretation Comments MPV (test code = MPV) 8.6 7.4-10.4 [place] 505542-12-28 17:53:00 Test Item Value Reference Range Interpretation Comments Segs (test code = Segs) 72.3 45.0-75.0 [place] 505542-12-28 17:53:00 Test Item Value Reference Range Interpretation Comments Lymphocytes (test code = Lymphocytes) 16.4 20.0-40.0 [place] 505542-12-28 17:53:00 Test Item Value Reference Range Interpretation Comments Monocytes (test code = Monocytes) 7.4 2.0-12.0 [place] 505542-12-28 17:53:00 Test Item Value Reference Range Interpretation Comments Eosinophils (test code = 3.5 See_Comment [A utomated message] The Eosinophils) system which ge nerated this result tra nsmitted reference range : <=4.0. The reference r peri was not used to int erpret this result as normal/abnormal . [place] 505542-12-28 17:53:00 Test Item Value Reference Range Interpretation Comments Basophils (test code = 0.4 See_Comment [Aut omated message] The Basophils) system which ge nerated this result tra nsmitted reference range : <=1.0. The reference r peri was not used to int erpret this result as normal/abnormal . [facility] CenterHtfhoayRAKPMMYRVU8016-23-57 17:53:00 Test Item Value Reference Range Interpretation Comments Neutrophils # (test code = Neutrophils 7.1 1.5-8.1 #) [facility] CenterJvkbzwbBPQKSLGKSJ8438-37-95 17:53:00 Test Item Value Reference Range Interpretation Comments Lymphocytes # (test code = Lymphocytes 1.6 1.0-5.5 #) [place] [address]-12-28 17:53:00 Test Item Value Reference Range Interpretation Comments Monocytes # (test code 0.7 See_Comment [Aut omated message] The = Monocytes #) system which generated this result tra nsmitted reference range : <=0.8. The reference r peri was not used to int erpret this result as normal/abnormal . [place] 505542-12-28 17:53:00 Test Item Value Reference Range Interpretation Comments Eosinophils # (test code 0.3 See_Comment [A utomated message] The = Eosinophils #) system whic h generated this result tra nsmitted reference range : <=0.5. The reference r peri was not used to int erpret this result as normal/abnormal . [facility]vineInlowckKMSLRYEPDZ4617-59-54 17:53:00 Test Item Value Reference Range Interpretation Comments Acetaminoph Lvl (test code = no gt 10-20 Acetaminoph Lvl) [place] 895492-12-28 17:53:00 Test Item Value Reference Range Interpretation Comments Ethanol Lvl (test code = Ethanol Lvl) no gt [place] 87785022-12-28 17:53:00 Test Item Value Reference Range Interpretation Comments Etoh (%) (test code = Etoh (%)) [facility] gt [facility]IcpfkseZAQALOCJOD8624-57-85 17:53:00 Test Item Value Reference Range Interpretation Comments Salicylate Lvl (test no gt See_Comment [Autom ated message] The code = Salicylate Lvl) syste m which generated this result tra nsmitted reference range : <=30.0. The reference r peri was not used to int erpret this result as normal/abnormal . [facility] EENRM0093-95-22 17:53:00 Test Item Value Reference Range Interpretation Comments Glucose Lvl (test code = Glucose Lvl) 107 70-99 [facility] EMBET9318-68-37 17:53:00 Test Item Value Reference Range Interpretation Comments BUN (test code = BUN) 10 7-22 [facility] DWTED0902-54-08 17:53:00 Test Item Value Reference Range Interpretation Comments Creatinine Lvl (test code = Creatinine 0.67 0.50-1.40 Lvl) [facility] EYLZN1279-77-98 17:53:00 Test Item Value Reference Range Interpretation Comments Sodium Lvl (test code = Sodium Lvl) 142 135-145 [facility] GYXYH0541-82-37 17:53:00 Test Item Value Reference Range Interpretation Comments Potassium Lvl (test code = Potassium 3.7 3.5-5.1 Lvl) [facility] YAQGL0623-48-58 17:53:00 Test Item Value Reference Range Interpretation Comments Chloride Lvl (test code = Chloride Lvl) 111 95-109 [facility] CenterdoughDALE V[place]LE [address]11LWORI4774-00-00 17:53:00 Test Item Value Reference Range Interpretation Comments CO2 (test code = CO2) 27 24-32 [facility] [id number] 17:53:00 Test Item Value Reference Range Interpretation Comments Calcium Lvl (test code = Calcium Lvl) 9.4 8.5-10.5 [facility] [id number] 17:53:00 Test Item Value Reference Range Interpretation Comments Total Protein (test code = Total 5.8 6.4-8.4 Protein) [facility] DHXTN6486-09-42 17:53:00 Test Item Value Reference Range Interpretation Comments Albumin Lvl (test code = Albumin Lvl) 3.0 3.5-5.0 [facility] TNYDC8677-09-14 17:53:00 Test Item Value Reference Range Interpretation Comments ALT (test code = ALT) 26 See_Comment [Auto mated message] The system which ge nerated this result transmit suze reference range : <=65. The reference range was not used to interpr et this result as anselmo l/abnormal. [facility] [id number] 17:53:00 Test Item Value Reference Range Interpretation Comments AST (test code = AST) 18 See_Comment [Auto mated message] The system which ge nerated this result transmit suze reference range : <=37. The reference range was not used to interpr et this result as anselmo l/abnormal. [facility] [id number] 17:53:00 Test Item Value Reference Range Interpretation Comments Alk Phos (test code = Alk Phos) 64 39-136 [facility] [id number] 17:53:00 Test Item Value Reference Range Interpretation Comments Bili Total (test code = Bili Total) 0.5 0.2-1.3 [facility] [id number] 17:53:00 Test Item Value Reference Range Interpretation Comments AGAP (test code = AGAP) 7.7 10.0-20.0 [facility] [id number] 17:53:00 Test Item Value Reference Range Interpretation Comments B/C Ratio (test code = B/C Ratio) 15 1 6-25 [facility] FTKPM0546-05-15 17:53:00 Test Item Value Reference Range Interpretation Comments Globulin (test code = Globulin) 2.8 2.7-4.2 [place] 493092-12-28 17:53:00 Test Item Value Reference Range Interpretation Comments A/G Ratio (test code = A/G Ratio) 1.1 1 0.7-1.6 [facility]2022-12-28 17:53:00 Test Item Value Reference Range Interpretation Comments eGFR (test code = eGFR) 118 [place] 493092-12-28 17:53:00 Test Item Value Reference Range Interpretation Comments Lipase Lvl (test code = Lipase Lvl) 160 73-393 [facility]2022-12-28 17:53:00 Test Item Value Reference Range Interpretation Comments Bili Direct (test code 0.1 See_Comment [Aut omated message] The = Bili Direct) system which generated this result tra nsmitted reference range : <=0.3. The reference r peri was not used to int erpret this result as anselmo l/abnormal. [facility]lineKfprfkaPHJUKAGZR5963-79-34 17:53:00 Test Item Value Reference Range Interpretation Comments Glucose Lvl (test code = Glucose Lvl) 107 70-99 [facility] ShorelineAwumzxvIZDHZZLNI4589-17-80 17:53:00 Test Item Value Reference Range Interpretation Comments BUN (test code = BUN) 10 7-22 [facility] ShorelineUjmvsdtGFTUECBUN6483-60-84 17:53:00 Test Item Value Reference Range Interpretation Comments Creatinine Lvl (test code = Creatinine 0.67 0.50-1.40 Lvl) [facility]lineQepjarxYWTSNDAMO0931-17-11 17:53:00 Test Item Value Reference Range Interpretation Comments Sodium Lvl (test code = Sodium Lvl) 142 135-145 [place] 683112-12-28 17:53:00 Test Item Value Reference Range Interpretation Comments Potassium Lvl (test code = Potassium 3.7 3.5-5.1 Lvl) [facility] ShorelineUdbhqphWXGPBDUTF4911-79-47 17:53:00 Test Item Value Reference Range Interpretation Comments Chloride Lvl (test code = Chloride Lvl) 111 95-109 [place] 683112-12-28 17:53:00 Test Item Value Reference Range Interpretation Comments CO2 (test code = CO2) 27 24-32 [facility]PcziqqrPIWZUKNEW9870-87-78 17:53:00 Test Item Value Reference Range Interpretation Comments Calcium Lvl (test code = Calcium Lvl) 9.4 8.5-10.5 [facility] KjdgradZIJQNIMUS2496-57-74 17:53:00 Test Item Value Reference Range Interpretation Comments Total Protein (test code = Total 5.8 6.4-8.4 Protein) [facility] CenterEgbsiozJHYCUSOIV7697-47-54 17:53:00 Test Item Value Reference Range Interpretation Comments Albumin Lvl (test code = Albumin Lvl) 3.0 3.5-5.0 [facility] NsyvnczSXWHGJRTV1926-24-39 17:53:00 Test Item Value Reference Range Interpretation Comments ALT (test code = ALT) 26 See_Comment [Auto mated message] The system which ge nerated this result transmit suze reference range : <=65. The reference range was not used to interpr et this result as anselmo l/abnormal. [facility] AlbeycpKNQRICZAM1637-10-74 17:53:00 Test Item Value Reference Range Interpretation Comments AST (test code = AST) 18 See_Comment [Auto mated message] The system which ge nerated this result transmit suze reference range : <=37. The reference range was not used to interpr et this result as anselmo l/abnormal. [facility] QtlnaxxVHVTCXNJW5181-20-02 17:53:00 Test Item Value Reference Range Interpretation Comments Alk Phos (test code = Alk Phos) 64 39-136 [facility] KjjexozCSHHTVPFU8248-52-70 17:53:00 Test Item Value Reference Range Interpretation Comments Bili Total (test code = Bili Total) 0.5 0.2-1.3 [facility] BdhrlwgTFGZRQHRL5754-39-00 17:53:00 Test Item Value Reference Range Interpretation Comments AGAP (test code = AGAP) 7.7 10.0-20.0 [facility] PbwcyjeDSGKTZRPF1004-41-19 17:53:00 Test Item Value Reference Range Interpretation Comments B/C Ratio (test code = B/C Ratio) 15 1 6-25 [facility] MwyhkxkGUIBIQZLD7772-49-37 17:53:00 Test Item Value Reference Range Interpretation Comments Globulin (test code = Globulin) 2.8 2.7-4.2 [facility] QeurranAWSIFNBYE4592-93-65 17:53:00 Test Item Value Reference Range Interpretation Comments A/G Ratio (test code = A/G Ratio) 1.1 1 0.7-1.6 [facility] ShorelineCahpiyiEIXBVVLSE2899-88-94 17:53:00 Test Item Value Reference Range Interpretation Comments eGFR (test code = eGFR) 118 [place] 683112-12-28 17:53:00 Test Item Value Reference Range Interpretation Comments Lipase Lvl (test code = Lipase Lvl) 160 73-393 [facility] ShorelineKkeamlrUMMNFTEAQ4818-81-74 17:53:00 Test Item Value Reference Range Interpretation Comments Acetaminoph Lvl (test code = no gt 10-20 Acetaminoph Lvl) [facility]lineIvqotggKKUZYDLBW2610-83-53 17:53:00 Test Item Value Reference Range Interpretation Comments Ethanol Lvl (test code = Ethanol Lvl) no gt [facility]lineSidvamwVSQDFOJWU7365-28-59 17:53:00 Test Item Value Reference Range Interpretation Comments Etoh (%) (test code = Etoh (%)) no gt [facility] ShorelineEtxdnmtIHJZAGLHZ5413-93-55 17:53:00 Test Item Value Reference Range Interpretation Comments Salicylate Lvl (test no gt See_Comment [Autom ated message] The code = Salicylate Lvl) syste m which generated this result tra nsmitted reference range : <=30.0. The reference r peri was not used to int erpret this result as normal/abnormal . [facility] ShorelineXxxepgeVHCDLHJUD1061-29-20 17:53:00 Test Item Value Reference Range Interpretation Comments Bili Direct (test code 0.1 See_Comment [Aut omated message] The = Bili Direct) system which generated this result tra nsmitted reference range : <=0.3. The reference r peri was not used to int erpret this result as anselmo l/abnormal. [facility] CenterAqnaalwQGXTLUOYGJ8908-74-02 17:53:00 Test Item Value Reference Range Interpretation Comments WBC X 10x3 (test code = WBC X 10x3) 9.9 3.7-10.4 [facility] CenterEtcbleaDKCHWKOZXO8859-61-15 17:53:00 Test Item Value Reference Range Interpretation Comments RBC X 10x6 (test code = RBC X 10x6) 4.74 4.70-6.10 [facility] CenterPdbsiefLCBLRKHXGK7262-34-17 17:53:00 Test Item Value Reference Range Interpretation Comments Hgb (test code = Hgb) 14.5 14.0-18.0 [place] 505542-12-28 17:53:00 Test Item Value Reference Range Interpretation Comments Hct (test code = Hct) 43.9 42.0-54.0 [place] 505542-12-28 17:53:00 Test Item Value Reference Range Interpretation Comments MCV (test code = MCV) 92.4 80.0-94.0 [place] 505542-12-28 17:53:00 Test Item Value Reference Range Interpretation Comments MCH (test code = MCH) 30.6 pg 27.0-31.0 [place] 505542-12-28 17:53:00 Test Item Value Reference Range Interpretation Comments MCHC (test code = MCHC) 33.1 32.0-36.0 [place] 505542-12-28 17:53:00 Test Item Value Reference Range Interpretation Comments RDW (test code = RDW) 13.5 11.5-14.5 [place] 505542-12-28 17:53:00 Test Item Value Reference Range Interpretation Comments Platelet (test code = Platelet) 229 133-450 [facility] CenterGtwadgoALEMLKAXXO4709-14-67 17:53:00 Test Item Value Reference Range Interpretation Comments MPV (test code = MPV) 8.6 7.4-10.4 [place] [address]-12-28 17:53:00 Test Item Value Reference Range Interpretation Comments Segs (test code = Segs) 72.3 45.0-75.0 [place] 505542-12-28 17:53:00 Test Item Value Reference Range Interpretation Comments Lymphocytes (test code = Lymphocytes) 16.4 20.0-40.0 [place] [address]-12-28 17:53:00 Test Item Value Reference Range Interpretation Comments Monocytes (test code = Monocytes) 7.4 2.0-12.0 [place] [address]-12-28 17:53:00 Test Item Value Reference Range Interpretation Comments Eosinophils (test code = 3.5 See_Comment [A utomated message] The Eosinophils) system which ge nerated this result tra nsmitted reference range : <=4.0. The reference r peri was not used to int erpret this result as normal/abnormal . [facility] CenterJubeubyFNAHUXCNNR0312-93-96 17:53:00 Test Item Value Reference Range Interpretation Comments Basophils (test code = 0.4 See_Comment [Aut omated message] The Basophils) system which ge nerated this result tra nsmitted reference range : <=1.0. The reference r peri was not used to int erpret this result as normal/abnormal . [facility] CenterWqncidgEQVZPHCZUM9282-95-17 17:53:00 Test Item Value Reference Range Interpretation Comments Neutrophils # (test code = Neutrophils 7.1 1.5-8.1 #) [facility] CenterKejwagvBBXLHDLVWL6570-80-61 17:53:00 Test Item Value Reference Range Interpretation Comments Lymphocytes # (test code = Lymphocytes 1.6 1.0-5.5 #) [facility] CenterAomkjzgFYSSKCVJFR0446-58-66 17:53:00 Test Item Value Reference Range Interpretation Comments Monocytes # (test code 0.7 See_Comment [Aut omated message] The = Monocytes #) system which generated this result tra nsmitted reference range : <=0.8. The reference r peri was not used to int erpret this result as normal/abnormal . [facility] CenterVvmhzefOITZCVGEOG2242-81-75 17:53:00 Test Item Value Reference Range Interpretation Comments Eosinophils # (test code 0.3 See_Comment [A utomated message] The = Eosinophils #) system whic h generated this result tra nsmitted reference range : <=0.5. The reference r peri was not used to int erpret this result as normal/abnormal . [facility] GrapevineOyzdlvlZDHNJXDKOR0165-94-92 17:53:00 Test Item Value Reference Range Interpretation Comments Acetaminoph Lvl (test code = no gt 10-20 Acetaminoph Lvl) [facility]vineAqffwveCFJVGOKXRB5776-24-08 17:53:00 Test Item Value Reference Range Interpretation Comments Ethanol Lvl (test code = Ethanol Lvl) no gt [facility] GrapevineQqqwtigCNVCNNXSPM0156-02-18 17:53:00 Test Item Value Reference Range Interpretation Comments Etoh (%) (test code = Etoh (%)) no gt [facility] GrapevineGenqqkrCQTLFWFSSF7355-44-31 17:53:00 Test Item Value Reference Range Interpretation Comments Salicylate Lvl (test no gt See_Comment [Autom ated message] The code = Salicylate Lvl) syste m which generated this result tra nsmitted reference range : <=30.0. The reference r peri was not used to int erpret this result as normal/abnormal . [facility]2022-12-28 17:53:00 Test Item Value Reference Range Interpretation Comments Glucose Lvl (test code = Glucose Lvl) 107 70-99 [place] 493092-12-28 17:53:00 Test Item Value Reference Range Interpretation Comments BUN (test code = BUN) 10 7-22 [place] 493092-12-28 17:53:00 Test Item Value Reference Range Interpretation Comments Creatinine Lvl (test code = Creatinine 0.67 0.50-1.40 Lvl) [place] 493092-12-28 17:53:00 Test Item Value Reference Range Interpretation Comments Sodium Lvl (test code = Sodium Lvl) 142 135-145 [facility] [address]11ZTYXC4592-34-34 17:53:00 Test Item Value Reference Range Interpretation Comments Potassium Lvl (test code = Potassium 3.7 3.5-5.1 Lvl) [place] 493092-12-28 17:53:00 Test Item Value Reference Range Interpretation Comments Chloride Lvl (test code = Chloride Lvl) 111 95-109 [place] 493092-12-28 17:53:00 Test Item Value Reference Range Interpretation Comments CO2 (test code = CO2) 27 24-32 [place] 493092-12-28 17:53:00 Test Item Value Reference Range Interpretation Comments Calcium Lvl (test code = Calcium Lvl) 9.4 8.5-10.5 [facility] [id number] 17:53:00 Test Item Value Reference Range Interpretation Comments Total Protein (test code = Total 5.8 6.4-8.4 Protein) [place] 493092-12-28 17:53:00 Test Item Value Reference Range Interpretation Comments Albumin Lvl (test code = Albumin Lvl) 3.0 3.5-5.0 [facility] [id number] 17:53:00 Test Item Value Reference Range Interpretation Comments ALT (test code = ALT) 26 See_Comment [Auto mated message] The system which ge nerated this result transmit suze reference range : <=65. The reference range was not used to interpr et this result as anselmo l/abnormal. [facility] [employer] [id number] 17:53:00 Test Item Value Reference Range Interpretation Comments AST (test code = AST) 18 See_Comment [Auto mated message] The system which ge nerated this result transmit suze reference range : <=37. The reference range was not used to interpr et this result as anselmo l/abnormal. [facility] [employer] [id number] 17:53:00 Test Item Value Reference Range Interpretation Comments Alk Phos (test code = Alk Phos) 64 39-136 [facility] [employer] [id number] 17:53:00 Test Item Value Reference Range Interpretation Comments Bili Total (test code = Bili Total) 0.5 0.2-1.3 [facility] [id number] 17:53:00 Test Item Value Reference Range Interpretation Comments AGAP (test code = AGAP) 7.7 10.0-20.0 [facility] [employer] [id number] 17:53:00 Test Item Value Reference Range Interpretation Comments B/C Ratio (test code = B/C Ratio) 15 1 6-25 [facility] [employer] [id number] 17:53:00 Test Item Value Reference Range Interpretation Comments Globulin (test code = Globulin) 2.8 2.7-4.2 [facility] [employer] [id number] 17:53:00 Test Item Value Reference Range Interpretation Comments A/G Ratio (test code = A/G Ratio) 1.1 1 0.7-1.6 [facility] [employer] [id number] 17:53:00 Test Item Value Reference Range Interpretation Comments eGFR (test code = eGFR) 118 [facility] [employer] [id number] 17:53:00 Test Item Value Reference Range Interpretation Comments Lipase Lvl (test code = Lipase Lvl) 160 73-393 [facility] [id number] 17:53:00 Test Item Value Reference Range Interpretation Comments Bili Direct (test code 0.1 See_Comment [Aut omated message] The = Bili Direct) system which generated this result tra nsmitted reference range : <=0.3. The reference r peri was not used to int erpret this result as anselmo l/abnormal. [facility] ShorelineHhnuwkeOKLVFRPCK8776-96-85 17:53:00 Test Item Value Reference Range Interpretation Comments Glucose Lvl (test code = Glucose Lvl) 107 70-99 [place] 683112-12-28 17:53:00 Test Item Value Reference Range Interpretation Comments BUN (test code = BUN) 10 7-22 [place] 683112-12-28 17:53:00 Test Item Value Reference Range Interpretation Comments Creatinine Lvl (test code = Creatinine 0.67 0.50-1.40 Lvl) [facility] ShorelinePlfpjpvCVCSRMQFD7587-12-96 17:53:00 Test Item Value Reference Range Interpretation Comments Sodium Lvl (test code = Sodium Lvl) 142 135-145 [place] 683112-12-28 17:53:00 Test Item Value Reference Range Interpretation Comments Potassium Lvl (test code = Potassium 3.7 3.5-5.1 Lvl) [place] 683112-12-28 17:53:00 Test Item Value Reference Range Interpretation Comments Chloride Lvl (test code = Chloride Lvl) 111 95-109 [facility] ShorelineWnblyvaGMESQUQLN5388-48-72 17:53:00 Test Item Value Reference Range Interpretation Comments CO2 (test code = CO2) 27 24-32 [facility] ShorelineJhhbadeFHMZGDOBP8829-60-04 17:53:00 Test Item Value Reference Range Interpretation Comments Calcium Lvl (test code = Calcium Lvl) 9.4 8.5-10.5 [facility] ShorelineXswiqhmMWQDPSZIF5073-50-02 17:53:00 Test Item Value Reference Range Interpretation Comments Total Protein (test code = Total 5.8 6.4-8.4 Protein) [facility] ShorelineFiojzzzPPZGTJNZU7509-48-55 17:53:00 Test Item Value Reference Range Interpretation Comments Albumin Lvl (test code = Albumin Lvl) 3.0 3.5-5.0 [place] 683112-12-28 17:53:00 Test Item Value Reference Range Interpretation Comments ALT (test code = ALT) 26 See_Comment [Auto mated message] The system which ge nerated this result transmit suze reference range : <=65. The reference range was not used to interpr et this result as anselmo l/abnormal. [facility] ShorelineFumdrvbNYIMPTVGJ5100-45-91 17:53:00 Test Item Value Reference Range Interpretation Comments AST (test code = AST) 18 See_Comment [Auto mated message] The system which ge nerated this result transmit suze reference range : <=37. The reference range was not used to interpr et this result as anselmo l/abnormal. [facility] CenterDftyubxCONLSZPQR6140-31-26 17:53:00 Test Item Value Reference Range Interpretation Comments Alk Phos (test code = Alk Phos) 64 39-136 [facility] CenterLmegpqnYVPYOKVCN2191-44-88 17:53:00 Test Item Value Reference Range Interpretation Comments Bili Total (test code = Bili Total) 0.5 0.2-1.3 [facility] CenterGesmhpdOTBUVTYQD1384-34-67 17:53:00 Test Item Value Reference Range Interpretation Comments AGAP (test code = AGAP) 7.7 10.0-20.0 [facility] CenterCnpaheoNMUMDWUIK2375-92-47 17:53:00 Test Item Value Reference Range Interpretation Comments B/C Ratio (test code = B/C Ratio) 15 1 6-25 [facility] CenterSngfdweCADYKYWVJ2175-19-27 17:53:00 Test Item Value Reference Range Interpretation Comments Globulin (test code = Globulin) 2.8 2.7-4.2 [facility] CenterGndjtsnBDWNNDMVL0592-68-38 17:53:00 Test Item Value Reference Range Interpretation Comments A/G Ratio (test code = A/G Ratio) 1.1 1 0.7-1.6 [facility] CenterRgswsncLTZSQUMVA6891-34-14 17:53:00 Test Item Value Reference Range Interpretation Comments eGFR (test code = eGFR) 118 [facility] CenterMqhzxjyOJMOHGPWD3460-86-60 17:53:00 Test Item Value Reference Range Interpretation Comments Lipase Lvl (test code = Lipase Lvl) 160 73-393 [facility] ShorelineNttegmqBWZSZLPAF1839-34-16 17:53:00 Test Item Value Reference Range Interpretation Comments Acetaminoph Lvl (test code = no gt 10-20 Acetaminoph Lvl) [facility] ShorelineNzippgpURVKIZWGN4661-20-89 17:53:00 Test Item Value Reference Range Interpretation Comments Ethanol Lvl (test code = Ethanol Lvl) no gt [facility] CenterHjlzeblATEFHJTOA4383-35-67 17:53:00 Test Item Value Reference Range Interpretation Comments Etoh (%) (test code = Etoh (%)) no gt [place] 683112-12-28 17:53:00 Test Item Value Reference Range Interpretation Comments Salicylate Lvl (test no gt See_Comment [Autom ated message] The code = Salicylate Lvl) syste m which generated this result tra nsmitted reference range : <=30.0. The reference r peri was not used to int erpret this result as normal/abnormal . [facility] ShorelineFnknfumQZLGHYIXD5983-77-29 17:53:00 Test Item Value Reference Range Interpretation Comments Bili Direct (test code 0.1 See_Comment [Aut omated message] The = Bili Direct) system which generated this result tra nsmitted reference range : <=0.3. The reference r peri was not used to int erpret this result as anselmo l/abnormal. [facility] CenterFaqndbmRKHBEUDZVY0174-06-37 17:53:00 Test Item Value Reference Range Interpretation Comments WBC X 10x3 (test code = WBC X 10x3) 9.9 3.7-10.4 [facility] CenterVwlemvcGVELSSAFNZ6762-08-98 17:53:00 Test Item Value Reference Range Interpretation Comments RBC X 10x6 (test code = RBC X 10x6) 4.74 4.70-6.10 [facility] CenterXgwnefwUJUPKUXXPF1340-71-50 17:53:00 Test Item Value Reference Range Interpretation Comments Hgb (test code = Hgb) 14.5 14.0-18.0 [facility] CenterEvctulcXEUUMESRQK0543-68-96 17:53:00 Test Item Value Reference Range Interpretation Comments Hct (test code = Hct) 43.9 42.0-54.0 [facility] CenterDezyypcPFQWVAYJFK5856-74-30 17:53:00 Test Item Value Reference Range Interpretation Comments MCV (test code = MCV) 92.4 80.0-94.0 [place] 505542-12-28 17:53:00 Test Item Value Reference Range Interpretation Comments MCH (test code = MCH) 30.6 pg 27.0-31.0 [facility] CenterDfmwmbhWCIEZEIUPJ7474-26-01 17:53:00 Test Item Value Reference Range Interpretation Comments MCHC (test code = MCHC) 33.1 32.0-36.0 [facility] CenterHalzynyMJANCGMQFQ8510-42-68 17:53:00 Test Item Value Reference Range Interpretation Comments RDW (test code = RDW) 13.5 11.5-14.5 [place] 505542-12-28 17:53:00 Test Item Value Reference Range Interpretation Comments Platelet (test code = Platelet) 229 133-450 [place] 505542-12-28 17:53:00 Test Item Value Reference Range Interpretation Comments MPV (test code = MPV) 8.6 7.4-10.4 [place] 505542-12-28 17:53:00 Test Item Value Reference Range Interpretation Comments Segs (test code = Segs) 72.3 45.0-75.0 [place] [address]-12-28 17:53:00 Test Item Value Reference Range Interpretation Comments Lymphocytes (test code = Lymphocytes) 16.4 20.0-40.0 [place] [address]-12-28 17:53:00 Test Item Value Reference Range Interpretation Comments Monocytes (test code = Monocytes) 7.4 2.0-12.0 [place] 505542-12-28 17:53:00 Test Item Value Reference Range Interpretation Comments Eosinophils (test code = 3.5 See_Comment [A utomated message] The Eosinophils) system which ge nerated this result tra nsmitted reference range : <=4.0. The reference r peri was not used to int erpret this result as normal/abnormal . [place] 505542-12-28 17:53:00 Test Item Value Reference Range Interpretation Comments Basophils (test code = 0.4 See_Comment [Aut omated message] The Basophils) system which ge nerated this result tra nsmitted reference range : <=1.0. The reference r peri was not used to int erpret this result as normal/abnormal . [facility] CenterKznnuvcGXDIWXVFCG0174-06-34 17:53:00 Test Item Value Reference Range Interpretation Comments Neutrophils # (test code = Neutrophils 7.1 1.5-8.1 #) [place] 505542-12-28 17:53:00 Test Item Value Reference Range Interpretation Comments Lymphocytes # (test code = Lymphocytes 1.6 1.0-5.5 #) [place] 505542-12-28 17:53:00 Test Item Value Reference Range Interpretation Comments Monocytes # (test code 0.7 See_Comment [Aut omated message] The = Monocytes #) system which generated this result tra nsmitted reference range : <=0.8. The reference r peri was not used to int erpret this result as normal/abnormal . [facility] CenterUfxyzjaFQFYJLELQP2653-21-47 17:53:00 Test Item Value Reference Range Interpretation Comments Eosinophils # (test code 0.3 See_Comment [A utomated message] The = Eosinophils #) system whic h generated this result tra nsmitted reference range : <=0.5. The reference r peri was not used to int erpret this result as normal/abnormal . [facility] CenterHakgmjcILEKQKBGQY1865-14-96 17:53:00 Test Item Value Reference Range Interpretation Comments WBC X 10x3 (test code = WBC X 10x3) 9.9 3.7-10.4 [facility] CenterZjjrfwzXXMRCSUARH4622-95-33 17:53:00 Test Item Value Reference Range Interpretation Comments RBC X 10x6 (test code = RBC X 10x6) 4.74 4.70-6.10 [facility] CenterOocjsysKXSVHRKFYF6536-70-93 17:53:00 Test Item Value Reference Range Interpretation Comments Hgb (test code = Hgb) 14.5 14.0-18.0 [facility] CenterDwpqjivNVTMSTHCTS7442-96-81 17:53:00 Test Item Value Reference Range Interpretation Comments Hct (test code = Hct) 43.9 42.0-54.0 [facility] CenterKhafvlrRVEQGMLLVF5933-49-30 17:53:00 Test Item Value Reference Range Interpretation Comments MCV (test code = MCV) 92.4 80.0-94.0 [place] 505542-12-28 17:53:00 Test Item Value Reference Range Interpretation Comments MCH (test code = MCH) 30.6 pg 27.0-31.0 [place] 505542-12-28 17:53:00 Test Item Value Reference Range Interpretation Comments MCHC (test code = MCHC) 33.1 32.0-36.0 [place] 505542-12-28 17:53:00 Test Item Value Reference Range Interpretation Comments RDW (test code = RDW) 13.5 11.5-14.5 [facility] CenterQexmslkNEWJGPQXOI3240-25-91 17:53:00 Test Item Value Reference Range Interpretation Comments Platelet (test code = Platelet) 229 133-450 [facility] CenterXfqpjwmBHVTFVVXRW0088-58-09 17:53:00 Test Item Value Reference Range Interpretation Comments MPV (test code = MPV) 8.6 7.4-10.4 [place] 505542-12-28 17:53:00 Test Item Value Reference Range Interpretation Comments Segs (test code = Segs) 72.3 45.0-75.0 [facility] CenterGzlcdznRZDKQEECFX2935-95-95 17:53:00 Test Item Value Reference Range Interpretation Comments Lymphocytes (test code = Lymphocytes) 16.4 20.0-40.0 [place] 505542-12-28 17:53:00 Test Item Value Reference Range Interpretation Comments Monocytes (test code = Monocytes) 7.4 2.0-12.0 [place] 505542-12-28 17:53:00 Test Item Value Reference Range Interpretation Comments Eosinophils (test code = 3.5 See_Comment [A utomated message] The Eosinophils) system which ge nerated this result tra nsmitted reference range : <=4.0. The reference r peri was not used to int erpret this result as normal/abnormal . [facility] CenterYfzuizlUVHIKOUVVN3463-30-67 17:53:00 Test Item Value Reference Range Interpretation Comments Basophils (test code = 0.4 See_Comment [Aut omated message] The Basophils) system which ge nerated this result tra nsmitted reference range : <=1.0. The reference r peri was not used to int erpret this result as normal/abnormal . [facility] CenterEdogeraYSOPHESFCL2691-91-59 17:53:00 Test Item Value Reference Range Interpretation Comments Neutrophils # (test code = Neutrophils 7.1 1.5-8.1 #) [place] 505542-12-28 17:53:00 Test Item Value Reference Range Interpretation Comments Lymphocytes # (test code = Lymphocytes 1.6 1.0-5.5 #) [place] [address]-12-28 17:53:00 Test Item Value Reference Range Interpretation Comments Monocytes # (test code 0.7 See_Comment [Aut omated message] The = Monocytes #) system which generated this result tra nsmitted reference range : <=0.8. The reference r peri was not used to int erpret this result as normal/abnormal . [place] 505542-12-28 17:53:00 Test Item Value Reference Range Interpretation Comments Eosinophils # (test code 0.3 See_Comment [A utomated message] The = Eosinophils #) system whic h generated this result tra nsmitted reference range : <=0.5. The reference r peri was not used to int erpret this result as normal/abnormal . [place] 895492-12-28 17:53:00 Test Item Value Reference Range Interpretation Comments Acetaminoph Lvl (test code = no gt 10-20 Acetaminoph Lvl) [place] 895492-12-28 17:53:00 Test Item Value Reference Range Interpretation Comments Ethanol Lvl (test code = Ethanol Lvl) no gt [place] 87785022-12-28 17:53:00 Test Item Value Reference Range Interpretation Comments Etoh (%) (test code = Etoh (%)) no gt [place] 87785022-12-28 17:53:00 Test Item Value Reference Range Interpretation Comments Salicylate Lvl (test no gt See_Comment [Autom ated message] The code = Salicylate Lvl) syste m which generated this result tra nsmitted reference range : <=30.0. The reference r peri was not used to int erpret this result as normal/abnormal . [facility] [id number] 17:53:00 Test Item Value Reference Range Interpretation Comments Glucose Lvl (test code = Glucose Lvl) 107 70-99 [facility] HXVTC8242-10-12 17:53:00 Test Item Value Reference Range Interpretation Comments BUN (test code = BUN) 10 7-22 [facility] XPZYG3418-65-89 17:53:00 Test Item Value Reference Range Interpretation Comments Creatinine Lvl (test code = Creatinine 0.67 0.50-1.40 Lvl) [facility] AKSSC5454-32-51 17:53:00 Test Item Value Reference Range Interpretation Comments Sodium Lvl (test code = Sodium Lvl) 142 135-145 [facility] ZPCVU1467-93-64 17:53:00 Test Item Value Reference Range Interpretation Comments Potassium Lvl (test code = Potassium 3.7 3.5-5.1 Lvl) [facility] ZEXNB3416-29-52 17:53:00 Test Item Value Reference Range Interpretation Comments Chloride Lvl (test code = Chloride Lvl) 111 95-109 [facility] SRQQY6228-15-52 17:53:00 Test Item Value Reference Range Interpretation Comments CO2 (test code = CO2) 27 24-32 [facility] [id number] 17:53:00 Test Item Value Reference Range Interpretation Comments Calcium Lvl (test code = Calcium Lvl) 9.4 8.5-10.5 [facility] ECJPP5745-43-76 17:53:00 Test Item Value Reference Range Interpretation Comments Total Protein (test code = Total 5.8 6.4-8.4 Protein) [facility] [id number] 17:53:00 Test Item Value Reference Range Interpretation Comments Albumin Lvl (test code = Albumin Lvl) 3.0 3.5-5.0 [facility] RQQWJ4870-83-63 17:53:00 Test Item Value Reference Range Interpretation Comments ALT (test code = ALT) 26 See_Comment [Auto mated message] The system which ge nerated this result transmit suze reference range : <=65. The reference range was not used to interpr et this result as anselmo l/abnormal. [facility] [employer] [id number] 17:53:00 Test Item Value Reference Range Interpretation Comments AST (test code = AST) 18 See_Comment [Auto mated message] The system which ge nerated this result transmit suze reference range : <=37. The reference range was not used to interpr et this result as anselmo l/abnormal. [facility] [employer] [id number] 17:53:00 Test Item Value Reference Range Interpretation Comments Alk Phos (test code = Alk Phos) 64 39-136 [facility] [employer] [id number] 17:53:00 Test Item Value Reference Range Interpretation Comments Bili Total (test code = Bili Total) 0.5 0.2-1.3 [facility] [employer] [id number] 17:53:00 Test Item Value Reference Range Interpretation Comments AGAP (test code = AGAP) 7.7 10.0-20.0 [facility] [employer] [id number] 17:53:00 Test Item Value Reference Range Interpretation Comments B/C Ratio (test code = B/C Ratio) 15 1 6-25 [place] 493092-12-28 17:53:00 Test Item Value Reference Range Interpretation Comments Globulin (test code = Globulin) 2.8 2.7-4.2 [place] 493092-12-28 17:53:00 Test Item Value Reference Range Interpretation Comments A/G Ratio (test code = A/G Ratio) 1.1 1 0.7-1.6 [place] 493092-12-28 17:53:00 Test Item Value Reference Range Interpretation Comments eGFR (test code = eGFR) 118 [place] 493092-12-28 17:53:00 Test Item Value Reference Range Interpretation Comments Lipase Lvl (test code = Lipase Lvl) 160 73-393 [place] 493092-12-28 17:53:00 Test Item Value Reference Range Interpretation Comments Bili Direct (test code 0.1 See_Comment [Aut omated message] The = Bili Direct) system which generated this result tra nsmitted reference range : <=0.3. The reference r peri was not used to int erpret this result as anselmo l/abnormal. [facility]lineLusfkfdEVEQZEXWU8595-38-73 17:53:00 Test Item Value Reference Range Interpretation Comments Glucose Lvl (test code = Glucose Lvl) 107 70-99 [place] 683112-12-28 17:53:00 Test Item Value Reference Range Interpretation Comments BUN (test code = BUN) 10 7-22 [place] 683112-12-28 17:53:00 Test Item Value Reference Range Interpretation Comments Creatinine Lvl (test code = Creatinine 0.67 0.50-1.40 Lvl) [place] 683112-12-28 17:53:00 Test Item Value Reference Range Interpretation Comments Sodium Lvl (test code = Sodium Lvl) 142 135-145 [place] 683112-12-28 17:53:00 Test Item Value Reference Range Interpretation Comments Potassium Lvl (test code = Potassium 3.7 3.5-5.1 Lvl) [place] 683112-12-28 17:53:00 Test Item Value Reference Range Interpretation Comments Chloride Lvl (test code = Chloride Lvl) 111 95-109 [place] 683112-12-28 17:53:00 Test Item Value Reference Range Interpretation Comments CO2 (test code = CO2) 27 24-32 [facility] LwxlrqhKRHYYFGDQ4164-76-46 17:53:00 Test Item Value Reference Range Interpretation Comments Calcium Lvl (test code = Calcium Lvl) 9.4 8.5-10.5 [facility] LaykvkiQRONFNDZX5873-33-58 17:53:00 Test Item Value Reference Range Interpretation Comments Total Protein (test code = Total 5.8 6.4-8.4 Protein) [facility] CenterUvstyydLYHSEQTFO1736-18-11 17:53:00 Test Item Value Reference Range Interpretation Comments Albumin Lvl (test code = Albumin Lvl) 3.0 3.5-5.0 [facility] CenterMhrrzwnWDQLDVGXN9770-33-06 17:53:00 Test Item Value Reference Range Interpretation Comments ALT (test code = ALT) 26 See_Comment [Auto mated message] The system which ge nerated this result transmit suze reference range : <=65. The reference range was not used to interpr et this result as anselmo l/abnormal. [facility] UbcwlxeAQLCIAOKA3164-80-44 17:53:00 Test Item Value Reference Range Interpretation Comments AST (test code = AST) 18 See_Comment [Auto mated message] The system which ge nerated this result transmit suze reference range : <=37. The reference range was not used to interpr et this result as anselmo l/abnormal. [facility] YpnhlrpKGBMIWCJF4517-30-49 17:53:00 Test Item Value Reference Range Interpretation Comments Alk Phos (test code = Alk Phos) 64 39-136 [facility] CenterVodhyolARRAEWWHJ8293-40-00 17:53:00 Test Item Value Reference Range Interpretation Comments Bili Total (test code = Bili Total) 0.5 0.2-1.3 [facility] CasblpcUIQJZXTCD4804-98-48 17:53:00 Test Item Value Reference Range Interpretation Comments AGAP (test code = AGAP) 7.7 10.0-20.0 [facility] XkzaqreIDGVDGWHM5222-34-46 17:53:00 Test Item Value Reference Range Interpretation Comments B/C Ratio (test code = B/C Ratio) 15 1 6-25 [facility]QhqeuxmRLPAMJKNR9307-90-79 17:53:00 Test Item Value Reference Range Interpretation Comments Globulin (test code = Globulin) 2.8 2.7-4.2 [facility] CenterYkrgmgaWEIASNBKX7698-22-35 17:53:00 Test Item Value Reference Range Interpretation Comments A/G Ratio (test code = A/G Ratio) 1.1 1 0.7-1.6 [facility]lineAdypucsBNVNSDKUS8732-80-21 17:53:00 Test Item Value Reference Range Interpretation Comments eGFR (test code = eGFR) 118 [place] 683112-12-28 17:53:00 Test Item Value Reference Range Interpretation Comments Lipase Lvl (test code = Lipase Lvl) 160 73-393 [facility]lineXpppyppAKYPZZSEO9971-05-83 17:53:00 Test Item Value Reference Range Interpretation Comments Acetaminoph Lvl (test code = no gt 10-20 Acetaminoph Lvl) [facility]lineDbetsgfRRPKCVKLU5856-10-39 17:53:00 Test Item Value Reference Range Interpretation Comments Ethanol Lvl (test code = Ethanol Lvl) no gt [facility]lineWpxfsjnOUTAGFREC5255-83-38 17:53:00 Test Item Value Reference Range Interpretation Comments Etoh (%) (test code = Etoh (%)) no gt [facility]linePhlivyuLADWXPVKD7930-01-11 17:53:00 Test Item Value Reference Range Interpretation Comments Salicylate Lvl (test no gt See_Comment [Autom ated message] The code = Salicylate Lvl) syste m which generated this result tra nsmitted reference range : <=30.0. The reference r peri was not used to int erpret this result as normal/abnormal . [facility]lineSvjkzkxLBETAVQII9326-62-51 17:53:00 Test Item Value Reference Range Interpretation Comments Bili Direct (test code 0.1 See_Comment [Aut omated message] The = Bili Direct) system which generated this result tra nsmitted reference range : <=0.3. The reference r peri was not used to int erpret this result as anselmo l/abnormal. [facility] CenterKqrrwbgNYNHQWZPWY3516-42-91 17:53:00 Test Item Value Reference Range Interpretation Comments WBC X 10x3 (test code = WBC X 10x3) 9.9 3.7-10.4 [place] 505542-12-28 17:53:00 Test Item Value Reference Range Interpretation Comments RBC X 10x6 (test code = RBC X 10x6) 4.74 4.70-6.10 [facility] CenterWsitosxLKAVSKFTFA9919-91-20 17:53:00 Test Item Value Reference Range Interpretation Comments Hgb (test code = Hgb) 14.5 14.0-18.0 [place] 505542-12-28 17:53:00 Test Item Value Reference Range Interpretation Comments Hct (test code = Hct) 43.9 42.0-54.0 [place] 505542-12-28 17:53:00 Test Item Value Reference Range Interpretation Comments MCV (test code = MCV) 92.4 80.0-94.0 [place] 505542-12-28 17:53:00 Test Item Value Reference Range Interpretation Comments MCH (test code = MCH) 30.6 pg 27.0-31.0 [place] 505542-12-28 17:53:00 Test Item Value Reference Range Interpretation Comments MCHC (test code = MCHC) 33.1 32.0-36.0 [facility] CenterSmymlijPLJRVJAJAF1153-99-51 17:53:00 Test Item Value Reference Range Interpretation Comments RDW (test code = RDW) 13.5 11.5-14.5 [facility] CenterJndhrvmTNIOVVFQIY4910-99-80 17:53:00 Test Item Value Reference Range Interpretation Comments Platelet (test code = Platelet) 229 133-450 [facility] CenterWuyshvyQASEEVIARI2590-22-28 17:53:00 Test Item Value Reference Range Interpretation Comments MPV (test code = MPV) 8.6 7.4-10.4 [place] [address]-12-28 17:53:00 Test Item Value Reference Range Interpretation Comments Segs (test code = Segs) 72.3 45.0-75.0 [place] 505542-12-28 17:53:00 Test Item Value Reference Range Interpretation Comments Lymphocytes (test code = Lymphocytes) 16.4 20.0-40.0 [place] 505542-12-28 17:53:00 Test Item Value Reference Range Interpretation Comments Monocytes (test code = Monocytes) 7.4 2.0-12.0 [place] [address]-12-28 17:53:00 Test Item Value Reference Range Interpretation Comments Eosinophils (test code = 3.5 See_Comment [A utomated message] The Eosinophils) system which ge nerated this result tra nsmitted reference range : <=4.0. The reference r peri was not used to int erpret this result as normal/abnormal . [place] 505542-12-28 17:53:00 Test Item Value Reference Range Interpretation Comments Basophils (test code = 0.4 See_Comment [Aut omated message] The Basophils) system which ge nerated this result tra nsmitted reference range : <=1.0. The reference r peri was not used to int erpret this result as normal/abnormal . [place] 505542-12-28 17:53:00 Test Item Value Reference Range Interpretation Comments Neutrophils # (test code = Neutrophils 7.1 1.5-8.1 #) [place] 505542-12-28 17:53:00 Test Item Value Reference Range Interpretation Comments Lymphocytes # (test code = Lymphocytes 1.6 1.0-5.5 #) [place] 505542-12-28 17:53:00 Test Item Value Reference Range Interpretation Comments Monocytes # (test code 0.7 See_Comment [Aut omated message] The = Monocytes #) system which generated this result tra nsmitted reference range : <=0.8. The reference r peri was not used to int erpret this result as normal/abnormal . [facility] CenterHemyoeuUJMCYYVQEF8126-74-05 17:53:00 Test Item Value Reference Range Interpretation Comments Eosinophils # (test code 0.3 See_Comment [A utomated message] The = Eosinophils #) system whic h generated this result tra nsmitted reference range : <=0.5. The reference r peri was not used to int erpret this result as normal/abnormal . [facility] CenterKbnlnnxROIBIONEXU5167-86-10 17:53:00 Test Item Value Reference Range Interpretation Comments WBC X 10x3 (test code = WBC X 10x3) 9.9 3.7-10.4 [place] [address]-12-28 17:53:00 Test Item Value Reference Range Interpretation Comments RBC X 10x6 (test code = RBC X 10x6) 4.74 4.70-6.10 [place] 505542-12-28 17:53:00 Test Item Value Reference Range Interpretation Comments Hgb (test code = Hgb) 14.5 14.0-18.0 [place] 505542-12-28 17:53:00 Test Item Value Reference Range Interpretation Comments Hct (test code = Hct) 43.9 42.0-54.0 [place] [address]-12-28 17:53:00 Test Item Value Reference Range Interpretation Comments MCV (test code = MCV) 92.4 80.0-94.0 [place] 505542-12-28 17:53:00 Test Item Value Reference Range Interpretation Comments MCH (test code = MCH) 30.6 pg 27.0-31.0 [place] 505542-12-28 17:53:00 Test Item Value Reference Range Interpretation Comments MCHC (test code = MCHC) 33.1 32.0-36.0 [place] [address]-12-28 17:53:00 Test Item Value Reference Range Interpretation Comments RDW (test code = RDW) 13.5 11.5-14.5 [place] [address]-12-28 17:53:00 Test Item Value Reference Range Interpretation Comments Platelet (test code = Platelet) 229 133-450 [place] 505542-12-28 17:53:00 Test Item Value Reference Range Interpretation Comments MPV (test code = MPV) 8.6 7.4-10.4 [place] [address]-12-28 17:53:00 Test Item Value Reference Range Interpretation Comments Segs (test code = Segs) 72.3 45.0-75.0 [place] 505542-12-28 17:53:00 Test Item Value Reference Range Interpretation Comments Lymphocytes (test code = Lymphocytes) 16.4 20.0-40.0 [place] 505542-12-28 17:53:00 Test Item Value Reference Range Interpretation Comments Monocytes (test code = Monocytes) 7.4 2.0-12.0 [place] [address]-12-28 17:53:00 Test Item Value Reference Range Interpretation Comments Eosinophils (test code = 3.5 See_Comment [A utomated message] The Eosinophils) system which ge nerated this result tra nsmitted reference range : <=4.0. The reference r peri was not used to int erpret this result as normal/abnormal . [place] 505542-12-28 17:53:00 Test Item Value Reference Range Interpretation Comments Basophils (test code = 0.4 See_Comment [Aut omated message] The Basophils) system which ge nerated this result tra nsmitted reference range : <=1.0. The reference r peri was not used to int erpret this result as normal/abnormal . [facility] CenterEbdpyfbTXZDBODIXK3313-76-27 17:53:00 Test Item Value Reference Range Interpretation Comments Neutrophils # (test code = Neutrophils 7.1 1.5-8.1 #) [facility] CenterWzfxjziEZBERNGSWM3358-67-47 17:53:00 Test Item Value Reference Range Interpretation Comments Lymphocytes # (test code = Lymphocytes 1.6 1.0-5.5 #) [facility] CenterFzgsmdkLSAEJTGDWB4439-97-56 17:53:00 Test Item Value Reference Range Interpretation Comments Monocytes # (test code 0.7 See_Comment [Aut omated message] The = Monocytes #) system which generated this result tra nsmitted reference range : <=0.8. The reference r peri was not used to int erpret this result as normal/abnormal . [facility] CenterBuoglovYSIADOTRIF4611-12-02 17:53:00 Test Item Value Reference Range Interpretation Comments Eosinophils # (test code 0.3 See_Comment [A utomated message] The = Eosinophils #) system whic h generated this result tra nsmitted reference range : <=0.5. The reference r peri was not used to int erpret this result as normal/abnormal . [facility]vineDpwjpfaPJOWRHIYLB1045-39-38 17:53:00 Test Item Value Reference Range Interpretation Comments Acetaminoph Lvl (test code = no gt 10-20 Acetaminoph Lvl) [place] 87785022-12-28 17:53:00 Test Item Value Reference Range Interpretation Comments Ethanol Lvl (test code = Ethanol Lvl) no gt [facility]DmypduvSWKOGHNKAQ4998-25-17 17:53:00 Test Item Value Reference Range Interpretation Comments Etoh (%) (test code = Etoh (%)) no gt [facility] GrapevineSntdunnPEWAWPPVSZ9625-99-40 17:53:00 Test Item Value Reference Range Interpretation Comments Salicylate Lvl (test no gt See_Comment [Autom ated message] The code = Salicylate Lvl) syste m which generated this result tra nsmitted reference range : <=30.0. The reference r peri was not used to int erpret this result as normal/abnormal . [place] 493092-12-28 17:53:00 Test Item Value Reference Range Interpretation Comments Glucose Lvl (test code = Glucose Lvl) 107 70-99 [place] 493092-12-28 17:53:00 Test Item Value Reference Range Interpretation Comments BUN (test code = BUN) 10 7-22 [place] 493092-12-28 17:53:00 Test Item Value Reference Range Interpretation Comments Creatinine Lvl (test code = Creatinine 0.67 0.50-1.40 Lvl) [place] 493092-12-28 17:53:00 Test Item Value Reference Range Interpretation Comments Sodium Lvl (test code = Sodium Lvl) 142 135-145 [place] 493092-12-28 17:53:00 Test Item Value Reference Range Interpretation Comments Potassium Lvl (test code = Potassium 3.7 3.5-5.1 Lvl) [place] 493092-12-28 17:53:00 Test Item Value Reference Range Interpretation Comments Chloride Lvl (test code = Chloride Lvl) 111 95-109 [place] 493092-12-28 17:53:00 Test Item Value Reference Range Interpretation Comments CO2 (test code = CO2) 27 24-32 [place] 493092-12-28 17:53:00 Test Item Value Reference Range Interpretation Comments Calcium Lvl (test code = Calcium Lvl) 9.4 8.5-10.5 [place] 493092-12-28 17:53:00 Test Item Value Reference Range Interpretation Comments Total Protein (test code = Total 5.8 6.4-8.4 Protein) [place] 493092-12-28 17:53:00 Test Item Value Reference Range Interpretation Comments Albumin Lvl (test code = Albumin Lvl) 3.0 3.5-5.0 [place] 493092-12-28 17:53:00 Test Item Value Reference Range Interpretation Comments ALT (test code = ALT) 26 See_Comment [Auto mated message] The system which ge nerated this result transmit suze reference range : <=65. The reference range was not used to interpr et this result as anselmo l/abnormal. [facility] CenterClew KMJXU2698-17-88 17:53:00 Test Item Value Reference Range Interpretation Comments AST (test code = AST) 18 See_Comment [Auto mated message] The system which ge nerated this result transmit suze reference range : <=37. The reference range was not used to interpr et this result as anselmo l/abnormal. [place] [address]-12-28 17:53:00 Test Item Value Reference Range Interpretation Comments Alk Phos (test code = Alk Phos) 64 39-136 [place] [address]-12-28 17:53:00 Test Item Value Reference Range Interpretation Comments Bili Total (test code = Bili Total) 0.5 0.2-1.[address]12-28 17:53:00 Test Item Value Reference Range Interpretation Comments AGAP (test code = AGAP) 7.7 10.0-20.0 [address]12-28 17:53:00 Test Item Value Reference Range Interpretation Comments B/C Ratio (test code = B/C Ratio) 15 1 6-[address]12-28 17:53:00 Test Item Value Reference Range Interpretation Comments Globulin (test code = Globulin) 2.8 2.7-4.[address]12-28 17:53:00 Test Item Value Reference Range Interpretation Comments A/G Ratio (test code = A/G Ratio) 1.1 1 0.7-1.6 [address]12-28 17:53:00 Test Item Value Reference Range Interpretation Comments eGFR (test code = eGFR) 118 [place] [address]-12-28 17:53:00 Test Item Value Reference Range Interpretation Comments Lipase Lvl (test code = Lipase Lvl) 160 73-393 [place] [address]-12-28 17:53:00 Test Item Value Reference Range Interpretation Comments Bili Direct (test code 0.1 See_Comment [Aut omated message] The = Bili Direct) system which generated this result tra nsmitted reference range : <=0.3. The reference r peri was not used to int erpret this result as anselmo l/abnormal. [place] [address]-12-28 17:53:00 Test Item Value Reference Range Interpretation Comments Glucose Lvl (test code = Glucose Lvl) 107 70-99 [place] [address]-12-28 17:53:00 Test Item Value Reference Range Interpretation Comments BUN (test code = BUN) 10 7-22 [place] [address]-12-28 17:53:00 Test Item Value Reference Range Interpretation Comments Creatinine Lvl (test code = Creatinine 0.67 0.50-1.40 Lvl) [place] [address]-12-28 17:53:00 Test Item Value Reference Range Interpretation Comments Sodium Lvl (test code = Sodium Lvl) 142 135-145 [place] [address]-12-28 17:53:00 Test Item Value Reference Range Interpretation Comments Potassium Lvl (test code = Potassium 3.7 3.5-5.1 Lvl) [place] [address]-12-28 17:53:00 Test Item Value Reference Range Interpretation Comments Chloride Lvl (test code = Chloride Lvl) 111 95-109 [place] [address]-12-28 17:53:00 Test Item Value Reference Range Interpretation Comments CO2 (test code = CO2) 27 24-32 [place] [address]-12-28 17:53:00 Test Item Value Reference Range Interpretation Comments Calcium Lvl (test code = Calcium Lvl) 9.4 8.5-10.5 [place] [address]-12-28 17:53:00 Test Item Value Reference Range Interpretation Comments Total Protein (test code = Total 5.8 6.4-8.4 Protein) [place] [address]-12-28 17:53:00 Test Item Value Reference Range Interpretation Comments Albumin Lvl (test code = Albumin Lvl) 3.0 3.5-5.0 [place] [address]-12-28 17:53:00 Test Item Value Reference Range Interpretation Comments ALT (test code = ALT) 26 See_Comment [Auto mated message] The system which ge nerated this result transmit suze reference range : <=65. The reference range was not used to interpr et this result as anselmo l/abnormal. [address]12-28 17:53:00 Test Item Value Reference Range Interpretation Comments AST (test code = AST) 18 See_Comment [Auto mated message] The system which ge nerated this result transmit suze reference range : <=37. The reference range was not used to interpr et this result as anselmo l/abnormal. [facility] CenterIqzncksCZKSHQTOP3705-46-81 17:53:00 Test Item Value Reference Range Interpretation Comments Alk Phos (test code = Alk Phos) 64 39-136 [facility]lineObrrwxpXCJGVXDFF8243-40-06 17:53:00 Test Item Value Reference Range Interpretation Comments Bili Total (test code = Bili Total) 0.5 0.2-1.3 [facility]lineVpzhvnjZYJHOWZKX0034-31-03 17:53:00 Test Item Value Reference Range Interpretation Comments AGAP (test code = AGAP) 7.7 10.0-20.0 [facility] ShorelineWovrexdMRZDSRVCE5953-35-71 17:53:00 Test Item Value Reference Range Interpretation Comments B/C Ratio (test code = B/C Ratio) 15 1 6-25 [facility] ShorelineCiveyzpUFUWEVGIK0885-68-40 17:53:00 Test Item Value Reference Range Interpretation Comments Globulin (test code = Globulin) 2.8 2.7-4.2 [facility] ShorelineTzzbwncTHYUERKJY0177-85-23 17:53:00 Test Item Value Reference Range Interpretation Comments A/G Ratio (test code = A/G Ratio) 1.1 1 0.7-1.6 [facility] ShorelineNhmaskzJZFHAZZSN2306-30-31 17:53:00 Test Item Value Reference Range Interpretation Comments eGFR (test code = eGFR) 118 [facility] ShorelineKhfyzfkMIUUVPHYZ2764-00-28 17:53:00 Test Item Value Reference Range Interpretation Comments Lipase Lvl (test code = Lipase Lvl) 160 73-393 [facility] ShorelineZwhjsmxITOWPPTFZ9841-92-64 17:53:00 Test Item Value Reference Range Interpretation Comments Acetaminoph Lvl (test code = no gt 10-20 Acetaminoph Lvl) [facility] ShorelineYikeyxbYMHKVNXUH1957-59-58 17:53:00 Test Item Value Reference Range Interpretation Comments Ethanol Lvl (test code = Ethanol Lvl) no gt [facility] ShorelineBcvmztlMXCYYAOHC3020-32-26 17:53:00 Test Item Value Reference Range Interpretation Comments Etoh (%) (test code = Etoh (%)) no gt [facility] ShorelineDgfkemaRECQMNZYN8120-02-67 17:53:00 Test Item Value Reference Range Interpretation Comments Salicylate Lvl (test no gt See_Comment [Autom ated message] The code = Salicylate Lvl) syste m which generated this result tra nsmitted reference range : <=30.0. The reference r peri was not used to int erpret this result as normal/abnormal . [facility] CenterCbaxastHHHIOHDZD6602-64-50 17:53:00 Test Item Value Reference Range Interpretation Comments Bili Direct (test code 0.1 See_Comment [Aut omated message] The = Bili Direct) system which generated this result tra nsmitted reference range : <=0.3. The reference r peri was not used to int erpret this result as anselmo l/abnormal. [facility] CenterWygfawxMWTIBENQZV7713-32-92 17:53:00 Test Item Value Reference Range Interpretation Comments WBC X 10x3 (test code = WBC X 10x3) 9.9 3.7-10.4 [facility] CenterXcnibxpYNZJSFNXWT0095-32-26 17:53:00 Test Item Value Reference Range Interpretation Comments RBC X 10x6 (test code = RBC X 10x6) 4.74 4.70-6.10 [facility] CenterHwwdqivIICPOXRPFN0675-32-11 17:53:00 Test Item Value Reference Range Interpretation Comments Hgb (test code = Hgb) 14.5 14.0-18.0 [facility], Urinalysis Rflx Cult/Bphdc2074-14-15 09:26:00 Test Item Value Reference Range Interpretation Comments Color,Urine (test code = UCOL) Yellow Yellow Clarity,Urine (test code = Clear Clear UCLAR) Ph, Urine (test code = UPH) 7.0 5.0-9.0 N Specific [place],Urine (test 1.025 1.005-1.030 N code = USG) [...] Negative code = ULEU) UF REFLEXUF REFLEXUrine Dllqhqwqbfj0093-23-09 09:26:00 Test Item Value Reference Range Interpretation Comments RBC,Urine (test code = URBCUF) 11-25 /HPF 0-2 A WBC,Urine (test code = UWBCUF) None Seen /HPF 0-5 Epithelial Cell,Urine (test None Seen /HPF 0-5 code = UECUF) Casts,Urine (test code = None Seen /LPF None Seen UCASTUF) Bacteria,Urine (test code = None Seen /hpf None Seen UBACTUF) UF REFLEXUF REFLEXComprehensive Metabolic Lkwpm1821-66-48 09:26:00 Test Item Value Reference Range Interpretation [...] race coefficient. Additional information can be found at:[id number]_j cb_ egfr_summary_fl angle 5.pdf (kidney.o rg) [Automated [...] 46-116 N (test code = ALP) Ethanol Yfnjz2397-01-57 09:26:00 Test Item Value Reference Range Interpretation Comments Ethanol (test code < 3 mg/dL The pharm acological = ETOH) response to blo od alcohol levels mayvary from individual to i ndividual. The fatal alyce ntrationhas been reported t o be >400mg/dL. Drug Screen,Oketr7722-63-43 09:26:00 Test Item Value Reference Range Interpretation [...] code = UPROP) Complete Blood Count Auto Usrk8419-32-90 09:26:00 Test Item Value Reference Range Interpretation [...] Pct (test code = NRBCP) 0 [facility] 22:53:00 Test Item Value Reference Range Interpretation Comments Glucose POC (test code = Glucose POC) 102 70-99 [facility]2022-12-14 22:53:00 Test Item Value Reference Range Interpretation Comments Gluc POC Comment 1 (test code Notified RN/MD = Gluc POC Comment 1) [place] [address]-12-14 22:53:00 Test Item Value Reference Range Interpretation Comments Glucose POC (test code = Glucose POC) [address]12-14 22:53:00 Test Item Value Reference Range Interpretation Comments Gluc POC Comment 1 (test code Notified RN/MD = Gluc POC Comment 1) [place] [address]-12-14 22:53:00 Test Item Value Reference Range Interpretation Comments Glucose POC (test code = Glucose POC) [address]12-14 22:53:00 Test Item Value Reference Range Interpretation Comments Gluc POC Comment 1 (test code Notified RN/MD = Gluc POC Comment 1) [address]12-14 22:53:00 Test Item Value Reference Range Interpretation Comments Glucose POC (test code = Glucose POC) 102 [place] [address]-12-14 22:53:00 Test Item Value Reference Range Interpretation Comments Gluc POC Comment 1 (test code Notified RN/MD = Gluc POC Comment 1) [place] [address]-12-14 22:53:00 Test Item Value Reference Range Interpretation Comments Glucose POC (test code = Glucose POC) 102 [place] [address]-12-14 22:53:00 Test Item Value Reference Range Interpretation Comments Gluc POC Comment 1 (test code Notified RN/MD = Gluc POC Comment 1) [address]12-14 22:53:00 Test Item Value Reference Range Interpretation Comments Glucose POC (test code = Glucose POC) 102 [place] [address]-12-14 22:53:00 Test Item Value Reference Range Interpretation Comments Gluc POC Comment 1 (test code Notified RN/MD = Gluc POC Comment 1) [place] [address]-12-14 22:53:00 Test Item Value Reference Range Interpretation Comments Glucose POC (test code = Glucose POC) 102 [place] [address]-12-14 22:53:00 Test Item Value Reference Range Interpretation Comments Gluc POC Comment 1 (test code Notified RN/MD = Gluc POC Comment 1) [place] [address]-12-14 22:53:00 Test Item Value Reference Range Interpretation Comments Glucose POC (test code = Glucose POC) 102 70-99 [facility]2022-12-14 22:53:00 Test Item Value Reference Range Interpretation Comments Gluc POC Comment 1 (test code Notified RN/MD = Gluc POC Comment 1) [facility]GxjfuykGQWJNQZUCI4569-06-87 17:05:00 Test Item Value Reference Range Interpretation Comments Coronavirus (COVID-19) Not Detected [place] (test code = (04/18/22 11:05 AM) Coronavirus (COVID-19) [place]) [address]12-12 17:05:00 Test Item Value Reference Range Interpretation Comments Coronavirus (COVID-19) Not Detected [place] (test code = (04/18/22 11:05 AM) Coronavirus (COVID-19) [place]) [address]12-12 17:05:00 Test Item Value Reference Range Interpretation Comments Coronavirus (COVID-19) Not Detected [place] (test code = (04/18/22 11:05 AM) Coronavirus (COVID-19) [place]) [address]12-12 17:05:00 Test Item Value Reference Range Interpretation Comments Coronavirus (COVID-19) Not Detected [place] (test code = (04/18/22 11:05 AM) Coronavirus (COVID-19) [place]) [address]12-12 17:05:00 Test Item Value Reference Range Interpretation Comments Coronavirus (COVID-19) Not Detected [place] (test code = (04/18/22 11:05 AM) Coronavirus (COVID-19) [place]) [place] [address]-12-12 17:05:00 Test Item Value Reference Range Interpretation Comments Coronavirus (COVID-19) Not Detected [place] (test code = (04/18/22 11:05 AM) Coronavirus (COVID-19) [place]) [address]12-12 17:05:00 Test Item Value Reference Range Interpretation Comments Coronavirus (COVID-19) Not Detected [place] (test code = (04/18/22 11:05 AM) Coronavirus (COVID-19) [place]) [address]12-12 17:05:00 Test Item Value Reference Range Interpretation Comments Coronavirus (COVID-19) Not Detected [place] (test code = (04/18/22 11:05 AM) Coronavirus (COVID-19) [place]) [facility] CenterPwoavtpWNZLTGRXWJ6359-18-49 17:05:00 Test Item Value Reference Range Interpretation Comments Coronavirus (COVID-19) Not Detected CAMERON (test code = (04/18/22 11:05 AM) Coronavirus (COVID-19) CAMERON) [facility]AbfacwuFVLECKCGCL4642-83-81 17:05:00 Test Item Value Reference Range Interpretation Comments Coronavirus (COVID-19) Not Detected CAMERON (test code = (04/18/22 11:05 AM) Coronavirus (COVID-19) CAM[facility]) [facility]QWTBLEE7352-05-85 11:20:00 Test Item Value Reference Range Interpretation Comments Total CK (test code = Total CK) 104 12-191 [facility] [id number] 11:20:00 Test Item Value Reference Range Interpretation Comments Glucose Lvl (test code = Glucose Lvl) 95 70-99 [facility] [id number] 11:20:00 Test Item Value Reference Range Interpretation Comments BUN (test code = BUN) 10 7-22 [facility] [id number] 11:20:00 Test Item Value Reference Range Interpretation Comments Creatinine Lvl (test code = Creatinine 0.70 0.50-1.40 Lvl) [facility]2022-12-11 11:20:00 Test Item Value Reference Range Interpretation Comments Sodium Lvl (test code = Sodium Lvl) 142 135-145 [facility] [id number] 11:20:00 Test Item Value Reference Range Interpretation Comments Potassium Lvl (test code = Potassium 3.8 3.5-5.1 Lvl) [facility] [id number] 11:20:00 Test Item Value Reference Range Interpretation Comments Chloride Lvl (test code = Chloride Lvl) 108 95-109 [facility]2022-12-11 11:20:00 Test Item Value Reference Range Interpretation Comments CO2 (test code = CO2) 24 24-32 [facility] [id number] 11:20:00 Test Item Value Reference Range Interpretation Comments AGAP (test code = AGAP) 13.8 10.0-20.0 [facility]doughD[facility] [address]11PKSZS9885-54-71 11:20:00 Test Item Value Reference Range Interpretation Comments Calcium Lvl (test code = Calcium Lvl) 9.7 8.5-10.5 [place] 493092-12-11 11:20:00 Test Item Value Reference Range Interpretation Comments B/C Ratio (test code = B/C Ratio) 14 1 6-25 [facility] [id number] 11:20:00 Test Item Value Reference Range Interpretation Comments Total Protein (test code = Total 5.9 6.4-8.4 Protein) [place] 493092-12-11 11:20:00 Test Item Value Reference Range Interpretation Comments Albumin Lvl (test code = Albumin Lvl) 2.9 3.5-5.0 [place] 493092-12-11 11:20:00 Test Item Value Reference Range Interpretation Comments Globulin (test code = Globulin) 3.0 2.7-4.2 [facility] [id number] 11:20:00 Test Item Value Reference Range Interpretation Comments A/G Ratio (test code = A/G Ratio) 1.0 1 0.7-1.6 [facility] [id number] 11:20:00 Test Item Value Reference Range Interpretation Comments ALT (test code = ALT) 36 See_Comment [Auto mated message] The system which ge nerated this result transmit suze reference range : <=65. The reference range was not used to interpr et this result as anselmo l/abnormal. [facility] Center[facility] [id number] 11:20:00 Test Item Value Reference Range Interpretation Comments AST (test code = AST) 23 See_Comment [Auto mated message] The system which ge nerated this result transmit suze reference range : <=37. The reference range was not used to interpr et this result as anselmo l/abnormal. [facility] [id number] 11:20:00 Test Item Value Reference Range Interpretation Comments Alk Phos (test code = Alk Phos) 77 39-136 [facility] [id number] 11:20:00 Test Item Value Reference Range Interpretation Comments Bili Total (test code = Bili Total) 0.2 0.2-1.3 [facility]2022-12-11 11:20:00 Test Item Value Reference Range Interpretation Comments eGFR (test code = eGFR) 117 [facility]lineUgncbbyXSWVQKKDL9911-55-37 11:20:00 Test Item Value Reference Range Interpretation Comments Total CK (test code = Total CK) 104 12-191 [place] 683112-12-11 11:20:00 Test Item Value Reference Range Interpretation Comments Glucose Lvl (test code = Glucose Lvl) 95 70-99 [facility] ShorelineUchmeipRSLRQBJYT8585-55-95 11:20:00 Test Item Value Reference Range Interpretation Comments BUN (test code = BUN) 10 7-22 [facility] ShorelineKfuljlxTKPQKCARB3000-42-36 11:20:00 Test Item Value Reference Range Interpretation Comments Creatinine Lvl (test code = Creatinine 0.70 0.50-1.40 Lvl) [facility] ShorelineNdhacpyVHFAFFXVG7011-60-78 11:20:00 Test Item Value Reference Range Interpretation Comments Sodium Lvl (test code = Sodium Lvl) 142 135-145 [facility] ShorelineFpyznpuSTRACUBUW8777-47-91 11:20:00 Test Item Value Reference Range Interpretation Comments Potassium Lvl (test code = Potassium 3.8 3.5-5.1 Lvl) [facility]lineQfjsggmKYYBNBDVF0925-25-67 11:20:00 Test Item Value Reference Range Interpretation Comments Chloride Lvl (test code = Chloride Lvl) 108 95-109 [facility] ShorelineAnozzemHQRECZCQV2289-79-76 11:20:00 Test Item Value Reference Range Interpretation Comments CO2 (test code = CO2) 24 24-32 [facility] ShorelineLcroxmwWGFYGIFCA9530-41-98 11:20:00 Test Item Value Reference Range Interpretation Comments AGAP (test code = AGAP) 13.8 10.0-20.0 [place] 683112-12-11 11:20:00 Test Item Value Reference Range Interpretation Comments Calcium Lvl (test code = Calcium Lvl) 9.7 8.5-10.5 [facility] ShorelinePkdhsrfSUBVRAIKW1476-09-87 11:20:00 Test Item Value Reference Range Interpretation Comments B/C Ratio (test code = B/C Ratio) 14 1 6-25 [place] 683112-12-11 11:20:00 Test Item Value Reference Range Interpretation Comments Total Protein (test code = Total 5.9 6.4-8.4 Protein) [facility]lineHhzsqxvHZGRHZHCF1960-18-33 11:20:00 Test Item Value Reference Range Interpretation Comments Albumin Lvl (test code = Albumin Lvl) 2.9 3.5-5.0 [facility] ShorelineLwpplyeBBCDKXYZJ3281-94-04 11:20:00 Test Item Value Reference Range Interpretation Comments Globulin (test code = Globulin) 3.0 2.7-4.2 [facility] ShorelineMzxtudkGMMLAMCTJ6135-04-30 11:20:00 Test Item Value Reference Range Interpretation Comments A/G Ratio (test code = A/G Ratio) 1.0 1 0.7-1.6 [facility] ShorelineSsvpjjrUQMGYZXRE2511-39-34 11:20:00 Test Item Value Reference Range Interpretation Comments ALT (test code = ALT) 36 See_Comment [Auto mated message] The system which ge nerated this result transmit suze reference range : <=65. The reference range was not used to interpr et this result as anselmo l/abnormal. [facility] ShorelinePdrxiygZUWLKZWWG5439-14-94 11:20:00 Test Item Value Reference Range Interpretation Comments AST (test code = AST) 23 See_Comment [Auto mated message] The system which ge nerated this result transmit suze reference range : <=37. The reference range was not used to interpr et this result as anselmo l/abnormal. [facility] ShorelineGcmquaoSVBZWOESS6691-25-55 11:20:00 Test Item Value Reference Range Interpretation Comments Alk Phos (test code = Alk Phos) 77 39-136 [facility] ShorelineYrzhohgSJFWZVVDS5770-85-12 11:20:00 Test Item Value Reference Range Interpretation Comments Bili Total (test code = Bili Total) 0.2 0.2-1.3 [place] 683112-12-11 11:20:00 Test Item Value Reference Range Interpretation Comments eGFR (test code = eGFR) 117 [facility] CenterBiulwwhNMZJWHWNPF1391-70-31 11:20:00 Test Item Value Reference Range Interpretation Comments WBC (test code = WBC) 7.7 3.7-10.4 [facility] CenterBxrpwyhVUOXIPUJXH4667-95-72 11:20:00 Test Item Value Reference Range Interpretation Comments RBC (test code = RBC) 4.42 4.70-6.10 [facility] CenterDjuonaaOESLNNGFZP9095-09-23 11:20:00 Test Item Value Reference Range Interpretation Comments Hgb (test code = Hgb) 13.7 14.0-18.0 [place] [address]-12-11 11:20:00 Test Item Value Reference Range Interpretation Comments Hct (test code = Hct) 40.0 42.0-54.0 [place] 505542-12-11 11:20:00 Test Item Value Reference Range Interpretation Comments MCV (test code = MCV) 90.7 80.0-94.0 [place] [address]-12-11 11:20:00 Test Item Value Reference Range Interpretation Comments MCH (test code = MCH) 31.0 pg 27.0-31.0 [place] 505542-12-11 11:20:00 Test Item Value Reference Range Interpretation Comments MCHC (test code = MCHC) 34.2 32.0-36.0 [place] 505542-12-11 11:20:00 Test Item Value Reference Range Interpretation Comments RDW (test code = RDW) 12.7 11.5-14.5 [place] 505542-12-11 11:20:00 Test Item Value Reference Range Interpretation Comments Platelet (test code = Platelet) 213 133-450 [facility] CenterCsgxmwyAQPXJAQKGK9577-97-51 11:20:00 Test Item Value Reference Range Interpretation Comments MPV (test code = MPV) 9.5 7.4-10.4 [place] 505542-12-11 11:20:00 Test Item Value Reference Range Interpretation Comments Segs (test code = Segs) 49.3 45.0-75.0 [place] 505542-12-11 11:20:00 Test Item Value Reference Range Interpretation Comments Lymphocytes (test code = Lymphocytes) 38.0 20.0-40.0 [place] [address]-12-11 11:20:00 Test Item Value Reference Range Interpretation Comments Monocytes (test code = Monocytes) 7.1 2.0-12.0 [place] [address]-12-11 11:20:00 Test Item Value Reference Range Interpretation Comments Eosinophils (test code = 4.9 See_Comment [A utomated message] The Eosinophils) system which ge nerated this result tra nsmitted reference range : <=4.0. The reference r peri was not used to int erpret this result as normal/abnormal . [facility] CenterMuitudvNIYPONAWJZ4726-91-64 11:20:00 Test Item Value Reference Range Interpretation Comments Basophils (test code = 0.7 See_Comment [Aut omated message] The Basophils) system which ge nerated this result tra nsmitted reference range : <=1.0. The reference r peri was not used to int erpret this result as normal/abnormal . [facility] CenterBwollemUNGTESZKXP8012-99-70 11:20:00 Test Item Value Reference Range Interpretation Comments Neutrophils # (test code = Neutrophils 3.8 1.5-8.1 #) [facility] CenterZykdlilFUJELXAMDR6577-45-10 11:20:00 Test Item Value Reference Range Interpretation Comments Lymphocytes # (test code = Lymphocytes 2.9 1.0-5.5 #) [facility] CenterRoiesfnKZTGDXZVUZ0413-29-51 11:20:00 Test Item Value Reference Range Interpretation Comments Monocytes # (test code 0.5 See_Comment [Aut omated message] The = Monocytes #) system which generated this result tra nsmitted reference range : <=0.8. The reference r peri was not used to int erpret this result as normal/abnormal . [facility] CenterPlwbtocGCMZHHBVFN0137-14-76 11:20:00 Test Item Value Reference Range Interpretation Comments Eosinophils # (test code 0.4 See_Comment [A utomated message] The = Eosinophils #) system whic h generated this result tra nsmitted reference range : <=0.5. The reference r peri was not used to int erpret this result as normal/abnormal . [facility] CenterOdtbhfcUCEINSRRIA2422-09-21 11:20:00 Test Item Value Reference Range Interpretation Comments Basophils # (test code 0.1 See_Comment [Aut omated message] The = Basophils #) system which generated this result tra nsmitted reference range : <=0.2. The reference r peri was not used to int erpret this result as normal/abnormal . [facility]AC JWFROMV1234-85-14 11:20:00 Test Item Value Reference Range Interpretation Comments Total CK (test code = Total CK) 104 12-191 [facility] [id number] 11:20:00 Test Item Value Reference Range Interpretation Comments Glucose Lvl (test code = Glucose Lvl) 95 70-99 [facility] [id number] 11:20:00 Test Item Value Reference Range Interpretation Comments BUN (test code = BUN) 10 7-22 [place] 493092-12-11 11:20:00 Test Item Value Reference Range Interpretation Comments Creatinine Lvl (test code = Creatinine 0.70 0.50-1.40 Lvl) [place] 493092-12-11 11:20:00 Test Item Value Reference Range Interpretation Comments Sodium Lvl (test code = Sodium Lvl) 142 135-145 [place] 493092-12-11 11:20:00 Test Item Value Reference Range Interpretation Comments Potassium Lvl (test code = Potassium 3.8 3.5-5.1 Lvl) [place] 493092-12-11 11:20:00 Test Item Value Reference Range Interpretation Comments Chloride Lvl (test code = Chloride Lvl) 108 95-109 [place] 493092-12-11 11:20:00 Test Item Value Reference Range Interpretation Comments CO2 (test code = CO2) 24 24-32 [place] 493092-12-11 11:20:00 Test Item Value Reference Range Interpretation Comments AGAP (test code = AGAP) 13.8 10.0-20.0 [place] 493092-12-11 11:20:00 Test Item Value Reference Range Interpretation Comments Calcium Lvl (test code = Calcium Lvl) 9.7 8.5-10.5 [place] 493092-12-11 11:20:00 Test Item Value Reference Range Interpretation Comments B/C Ratio (test code = B/C Ratio) 14 1 6-25 [place] 493092-12-11 11:20:00 Test Item Value Reference Range Interpretation Comments Total Protein (test code = Total 5.9 6.4-8.4 Protein) [place] 493092-12-11 11:20:00 Test Item Value Reference Range Interpretation Comments Albumin Lvl (test code = Albumin Lvl) 2.9 3.5-5.0 [place] 493092-12-11 11:20:00 Test Item Value Reference Range Interpretation Comments Globulin (test code = Globulin) 3.0 2.7-4.2 [place] 493092-12-11 11:20:00 Test Item Value Reference Range Interpretation Comments A/G Ratio (test code = A/G Ratio) 1.0 1 0.7-1.6 [facility] INcubes [id number] 11:20:00 Test Item Value Reference Range Interpretation Comments ALT (test code = ALT) 36 See_Comment [Auto mated message] The system which ge nerated this result transmit suze reference range : <=65. The reference range was not used to interpr et this result as anselmo l/abnormal. [facility] RTAHH6132-98-08 11:20:00 Test Item Value Reference Range Interpretation Comments AST (test code = AST) 23 See_Comment [Auto mated message] The system which ge nerated this result transmit suze reference range : <=37. The reference range was not used to interpr et this result as anselmo l/abnormal. [facility] [id number] 11:20:00 Test Item Value Reference Range Interpretation Comments Alk Phos (test code = Alk Phos) 77 39-136 [facility] CLPMU2596-32-23 11:20:00 Test Item Value Reference Range Interpretation Comments Bili Total (test code = Bili Total) 0.2 0.2-1.3 [facility] [id number] 11:20:00 Test Item Value Reference Range Interpretation Comments eGFR (test code = eGFR) 117 [facility] CenterCeayfxqZVGEHHFRL2098-40-54 11:20:00 Test Item Value Reference Range Interpretation Comments Total CK (test code = Total CK) 104 12-191 [facility]lineRgwswkcZZDDEWJWN7753-14-66 11:20:00 Test Item Value Reference Range Interpretation Comments Glucose Lvl (test code = Glucose Lvl) 95 70-99 [facility] CenterKbopzhcRWYXVGMJY6717-61-24 11:20:00 Test Item Value Reference Range Interpretation Comments BUN (test code = BUN) 10 7-22 [facility] CenterWrpjfptPXRSWDDBN2278-14-96 11:20:00 Test Item Value Reference Range Interpretation Comments Creatinine Lvl (test code = Creatinine 0.70 0.50-1.40 Lvl) [facility]lineSnvyqftIUKVEEGYY5638-19-03 11:20:00 Test Item Value Reference Range Interpretation Comments Sodium Lvl (test code = Sodium Lvl) 142 135-145 [facility] CenterTimbkwaVHCYWENER3288-42-37 11:20:00 Test Item Value Reference Range Interpretation Comments Potassium Lvl (test code = Potassium 3.8 3.5-5.1 Lvl) [facility] ShorelineZozkqcvBARKRCVKD4785-82-44 11:20:00 Test Item Value Reference Range Interpretation Comments Chloride Lvl (test code = Chloride Lvl) 108 95-109 [facility] ShorelineRgriakkGUURRXDMJ5672-34-26 11:20:00 Test Item Value Reference Range Interpretation Comments CO2 (test code = CO2) 24 24-32 [place] 683112-12-11 11:20:00 Test Item Value Reference Range Interpretation Comments AGAP (test code = AGAP) 13.8 10.0-20.0 [facility] ShorelineEerxuypEJTBUTIKH2081-24-15 11:20:00 Test Item Value Reference Range Interpretation Comments Calcium Lvl (test code = Calcium Lvl) 9.7 8.5-10.5 [facility] ShorelineTijulasASZUCXNRG6868-71-29 11:20:00 Test Item Value Reference Range Interpretation Comments B/C Ratio (test code = B/C Ratio) 14 1 6-25 [facility] ShorelineLepdnayIQVCCVIXI2542-36-72 11:20:00 Test Item Value Reference Range Interpretation Comments Total Protein (test code = Total 5.9 6.4-8.4 Protein) [facility]lineJoqakdtTCYOJUJSU3893-49-07 11:20:00 Test Item Value Reference Range Interpretation Comments Albumin Lvl (test code = Albumin Lvl) 2.9 3.5-5.0 [facility] ShorelineReyxvtiAFOYJUQQF6650-41-59 11:20:00 Test Item Value Reference Range Interpretation Comments Globulin (test code = Globulin) 3.0 2.7-4.2 [facility] ShorelineXruujkpRIFDHJNKG5262-36-90 11:20:00 Test Item Value Reference Range Interpretation Comments A/G Ratio (test code = A/G Ratio) 1.0 1 0.7-1.6 [facility] ShorelineQzgnwkgBBZTYUQDT7441-58-93 11:20:00 Test Item Value Reference Range Interpretation Comments ALT (test code = ALT) 36 See_Comment [Auto mated message] The system which ge nerated this result transmit suze reference range : <=65. The reference range was not used to interpr et this result as anselmo l/abnormal. [place] 683112-12-11 11:20:00 Test Item Value Reference Range Interpretation Comments AST (test code = AST) 23 See_Comment [Auto mated message] The system which ge nerated this result transmit suze reference range : <=37. The reference range was not used to interpr et this result as anselmo l/abnormal. [facility]lineFfzxqwlCTGYBUHRL1258-49-87 11:20:00 Test Item Value Reference Range Interpretation Comments Alk Phos (test code = Alk Phos) 77 39-136 [facility] ShorelineJpeblpuAFXKNBUAO6323-48-28 11:20:00 Test Item Value Reference Range Interpretation Comments Bili Total (test code = Bili Total) 0.2 0.2-1.3 [facility] ShorelineNjajytgQTPQGAFSI0559-71-92 11:20:00 Test Item Value Reference Range Interpretation Comments eGFR (test code = eGFR) 117 [facility] CenterYwvtczvYKJSWUFGQL4542-30-15 11:20:00 Test Item Value Reference Range Interpretation Comments WBC (test code = WBC) 7.7 3.7-10.4 [facility] CenterUwpmaniHOLOCSNYSR0531-62-61 11:20:00 Test Item Value Reference Range Interpretation Comments RBC (test code = RBC) 4.42 4.70-6.10 [facility] CenterQmqlhgoGUNUYGVRMW3625-29-60 11:20:00 Test Item Value Reference Range Interpretation Comments Hgb (test code = Hgb) 13.7 14.0-18.0 [facility] CenterEqfzlrhSJIETVRINM1208-31-54 11:20:00 Test Item Value Reference Range Interpretation Comments Hct (test code = Hct) 40.0 42.0-54.0 [facility] CenterElqeycmAZOUBERNVS6409-06-69 11:20:00 Test Item Value Reference Range Interpretation Comments MCV (test code = MCV) 90.7 80.0-94.0 [place] 505542-12-11 11:20:00 Test Item Value Reference Range Interpretation Comments MCH (test code = MCH) 31.0 pg 27.0-31.0 [facility] CenterTlgnqwtEOAOTVVTDF8908-69-15 11:20:00 Test Item Value Reference Range Interpretation Comments MCHC (test code = MCHC) 34.2 32.0-36.0 [place] 505542-12-11 11:20:00 Test Item Value Reference Range Interpretation Comments RDW (test code = RDW) 12.7 11.5-14.5 [place] 505542-12-11 11:20:00 Test Item Value Reference Range Interpretation Comments Platelet (test code = Platelet) 213 133-450 [facility] CenterOxbzzyaKJCEOVKEJX6443-30-81 11:20:00 Test Item Value Reference Range Interpretation Comments MPV (test code = MPV) 9.5 7.4-10.4 [place] 505542-12-11 11:20:00 Test Item Value Reference Range Interpretation Comments Segs (test code = Segs) 49.3 45.0-75.0 [facility] CenterNnoqpvhDKCZZHUNMU5773-58-83 11:20:00 Test Item Value Reference Range Interpretation Comments Lymphocytes (test code = Lymphocytes) 38.0 20.0-40.0 [place] 505542-12-11 11:20:00 Test Item Value Reference Range Interpretation Comments Monocytes (test code = Monocytes) 7.1 2.0-12.0 [facility] CenterRtmbgotZGRXREIVFS9217-69-20 11:20:00 Test Item Value Reference Range Interpretation Comments Eosinophils (test code = 4.9 See_Comment [A utomated message] The Eosinophils) system which ge nerated this result tra nsmitted reference range : <=4.0. The reference r peri was not used to int erpret this result as normal/abnormal . [facility] CenterOndqhvtOZJFIBETXJ2293-21-31 11:20:00 Test Item Value Reference Range Interpretation Comments Basophils (test code = 0.7 See_Comment [Aut omated message] The Basophils) system which ge nerated this result tra nsmitted reference range : <=1.0. The reference r peri was not used to int erpret this result as normal/abnormal . [facility] CenterMmuftqlZKNYUKKDVE7072-74-49 11:20:00 Test Item Value Reference Range Interpretation Comments Neutrophils # (test code = Neutrophils 3.8 1.5-8.1 #) [place] 505542-12-11 11:20:00 Test Item Value Reference Range Interpretation Comments Lymphocytes # (test code = Lymphocytes 2.9 1.0-5.5 #) [place] 505542-12-11 11:20:00 Test Item Value Reference Range Interpretation Comments Monocytes # (test code 0.5 See_Comment [Aut omated message] The = Monocytes #) system which generated this result tra nsmitted reference range : <=0.8. The reference r peri was not used to int erpret this result as normal/abnormal . [facility] CenterBdhriucNNGSWGCBSP6724-08-74 11:20:00 Test Item Value Reference Range Interpretation Comments Eosinophils # (test code 0.4 See_Comment [A utomated message] The = Eosinophils #) system whic h generated this result tra nsmitted reference range : <=0.5. The reference r peri was not used to int erpret this result as normal/abnormal . [facility]PhdukghZIASNJVBGL3639-87-09 11:20:00 Test Item Value Reference Range Interpretation Comments Basophils # (test code 0.1 See_Comment [Aut omated message] The = Basophils #) system which generated this result tra nsmitted reference range : <=0.2. The reference r peri was not used to int erpret this result as normal/abnormal . [facility] CenterCARDIAC WKLWEQR2085-06-88 11:20:00 Test Item Value Reference Range Interpretation Comments Total CK (test code = Total CK) 104 12-191 [facility]Cle[facility] CUSRG1919-15-34 11:20:00 Test Item Value Reference Range Interpretation Comments Glucose Lvl (test code = Glucose Lvl) 95 70-99 [facility] USZWO4516-68-86 11:20:00 Test Item Value Reference Range Interpretation Comments BUN (test code = BUN) 10 7-22 [facility] GXPIG9022-14-10 11:20:00 Test Item Value Reference Range Interpretation Comments Creatinine Lvl (test code = Creatinine 0.70 0.50-1.40 Lvl) [facility] CMFGQ4261-92-87 11:20:00 Test Item Value Reference Range Interpretation Comments Sodium Lvl (test code = Sodium Lvl) 142 135-145 [facility] PTUVK7033-42-99 11:20:00 Test Item Value Reference Range Interpretation Comments Potassium Lvl (test code = Potassium 3.8 3.5-5.1 Lvl) [facility] EKTWS9311-61-34 11:20:00 Test Item Value Reference Range Interpretation Comments Chloride Lvl (test code = Chloride Lvl) 108 95-109 [facility] XTJWS3562-41-40 11:20:00 Test Item Value Reference Range Interpretation Comments CO2 (test code = CO2) 24 24-32 [facility] [id number] 11:20:00 Test Item Value Reference Range Interpretation Comments AGAP (test code = AGAP) 13.8 10.0-20.0 [facility] CenterdoughJAMES [place] [address]MURSS2681-94-80 11:20:00 Test Item Value Reference Range Interpretation Comments Calcium Lvl (test code = Calcium Lvl) 9.7 8.5-10.5 [place] [address]-12-11 11:20:00 Test Item Value Reference Range Interpretation Comments B/C Ratio (test code = B/C Ratio) 14 1 6-25 [place] [address]-12-11 11:20:00 Test Item Value Reference Range Interpretation Comments Total Protein (test code = Total 5.9 6.4-8.4 Protein) [place] [address]-12-11 11:20:00 Test Item Value Reference Range Interpretation Comments Albumin Lvl (test code = Albumin Lvl) 2.9 3.5-5.0 [place] 493092-12-11 11:20:00 Test Item Value Reference Range Interpretation Comments Globulin (test code = Globulin) 3.0 2.7-4.2 [facility] [id number] 11:20:00 Test Item Value Reference Range Interpretation Comments A/G Ratio (test code = A/G Ratio) 1.0 1 0.7-1.6 [place] [address]-12-11 11:20:00 Test Item Value Reference Range Interpretation Comments ALT (test code = ALT) 36 See_Comment [Auto mated message] The system which ge nerated this result transmit suze reference range : <=65. The reference range was not used to interpr et this result as anselmo l/abnormal. [facility] CenterHoot[facility] [id number] 11:20:00 Test Item Value Reference Range Interpretation Comments AST (test code = AST) 23 See_Comment [Auto mated message] The system which ge nerated this result transmit suze reference range : <=37. The reference range was not used to interpr et this result as anselmo l/abnormal. [facility] [id number] 11:20:00 Test Item Value Reference Range Interpretation Comments Alk Phos (test code = Alk Phos) 77 39-136 [facility] [id number] 11:20:00 Test Item Value Reference Range Interpretation Comments Bili Total (test code = Bili Total) 0.2 0.2-1.3 [facility]2022-12-11 11:20:00 Test Item Value Reference Range Interpretation Comments eGFR (test code = eGFR) 117 [facility]lineXndxispUDHAXQZGD9693-18-38 11:20:00 Test Item Value Reference Range Interpretation Comments Total CK (test code = Total CK) 104 12-191 [facility] ShorelineTaocilwYNMMSZSBS8374-36-53 11:20:00 Test Item Value Reference Range Interpretation Comments Glucose Lvl (test code = Glucose Lvl) 95 70-99 [facility]lineLinezzsRDWXUZLCI1017-91-38 11:20:00 Test Item Value Reference Range Interpretation Comments BUN (test code = BUN) 10 7-22 [facility] ShorelineAddcmgrAGFTCROJP3304-83-28 11:20:00 Test Item Value Reference Range Interpretation Comments Creatinine Lvl (test code = Creatinine 0.70 0.50-1.40 Lvl) [facility] ShorelineQvyyfroEXYQTEANZ5425-48-60 11:20:00 Test Item Value Reference Range Interpretation Comments Sodium Lvl (test code = Sodium Lvl) 142 135-145 [facility] ShorelineNymkithFKYFNPFNA7696-40-06 11:20:00 Test Item Value Reference Range Interpretation Comments Potassium Lvl (test code = Potassium 3.8 3.5-5.1 Lvl) [facility] ShorelineVrvleolVCDQFEFBK5199-38-19 11:20:00 Test Item Value Reference Range Interpretation Comments Chloride Lvl (test code = Chloride Lvl) 108 95-109 [facility] ShorelineNzabhnxWUHWCPLOX3200-63-84 11:20:00 Test Item Value Reference Range Interpretation Comments CO2 (test code = CO2) 24 24-32 [facility] ShorelineUrzutbgAPXHRDXWV0145-00-32 11:20:00 Test Item Value Reference Range Interpretation Comments AGAP (test code = AGAP) 13.8 10.0-20.0 [facility] ShorelineQrkzqypEGEJJYVXV9044-71-16 11:20:00 Test Item Value Reference Range Interpretation Comments Calcium Lvl (test code = Calcium Lvl) 9.7 8.5-10.5 [facility]lineAcjdxcmTXLZVTUTV7529-86-02 11:20:00 Test Item Value Reference Range Interpretation Comments B/C Ratio (test code = B/C Ratio) 14 1 6-25 [facility] ShorelineKrdnsieOTGVRUQMK1668-56-76 11:20:00 Test Item Value Reference Range Interpretation Comments Total Protein (test code = Total 5.9 6.4-8.4 Protein) [facility]lineSpvwqtgNBGRDDYJX5827-58-51 11:20:00 Test Item Value Reference Range Interpretation Comments Albumin Lvl (test code = Albumin Lvl) 2.9 3.5-5.0 [facility] ShorelineKvgiupsGOTLAJFVL7253-43-04 11:20:00 Test Item Value Reference Range Interpretation Comments Globulin (test code = Globulin) 3.0 2.7-4.2 [facility]lineFwpzdzqKTOLRURIB3731-88-61 11:20:00 Test Item Value Reference Range Interpretation Comments A/G Ratio (test code = A/G Ratio) 1.0 1 0.7-1.6 [facility] ShorelineTvgnwqaNQQZLDBSU7132-60-45 11:20:00 Test Item Value Reference Range Interpretation Comments ALT (test code = ALT) 36 See_Comment [Auto mated message] The system which ge nerated this result transmit suze reference range : <=65. The reference range was not used to interpr et this result as anselmo l/abnormal. [facility]lineEcrmxvzCPEAJHWUS0196-15-23 11:20:00 Test Item Value Reference Range Interpretation Comments AST (test code = AST) 23 See_Comment [Auto mated message] The system which ge nerated this result transmit suze reference range : <=37. The reference range was not used to interpr et this result as anselmo l/abnormal. [facility]lineDomxwaeJBUSJLTNI1222-33-74 11:20:00 Test Item Value Reference Range Interpretation Comments Alk Phos (test code = Alk Phos) 77 39-136 [facility]lineThhmaquVGMWMQNUE8817-38-78 11:20:00 Test Item Value Reference Range Interpretation Comments Bili Total (test code = Bili Total) 0.2 0.2-1.3 [facility]lineEueryrpBKHQVVTOW4236-93-86 11:20:00 Test Item Value Reference Range Interpretation Comments eGFR (test code = eGFR) 117 [facility] CenterEubosovNLZIKAEBWR2915-15-72 11:20:00 Test Item Value Reference Range Interpretation Comments WBC (test code = WBC) 7.7 3.7-10.4 [facility] CenterZpdbjnoHTOQELLRGM4340-63-10 11:20:00 Test Item Value Reference Range Interpretation Comments RBC (test code = RBC) 4.42 4.70-6.10 [place] 505542-12-11 11:20:00 Test Item Value Reference Range Interpretation Comments Hgb (test code = Hgb) 13.7 14.0-18.0 [place] 505542-12-11 11:20:00 Test Item Value Reference Range Interpretation Comments Hct (test code = Hct) 40.0 42.0-54.0 [place] 505542-12-11 11:20:00 Test Item Value Reference Range Interpretation Comments MCV (test code = MCV) 90.7 80.0-94.0 [place] 505542-12-11 11:20:00 Test Item Value Reference Range Interpretation Comments MCH (test code = MCH) 31.0 pg 27.0-31.0 [place] 505542-12-11 11:20:00 Test Item Value Reference Range Interpretation Comments MCHC (test code = MCHC) 34.2 32.0-36.0 [place] 505542-12-11 11:20:00 Test Item Value Reference Range Interpretation Comments RDW (test code = RDW) 12.7 11.5-14.5 [place] 505542-12-11 11:20:00 Test Item Value Reference Range Interpretation Comments Platelet (test code = Platelet) 213 133-450 [facility] CenterMirvahnJEBVLBDNEH2791-04-15 11:20:00 Test Item Value Reference Range Interpretation Comments MPV (test code = MPV) 9.5 7.4-10.4 [place] 505542-12-11 11:20:00 Test Item Value Reference Range Interpretation Comments Segs (test code = Segs) 49.3 45.0-75.0 [place] 505542-12-11 11:20:00 Test Item Value Reference Range Interpretation Comments Lymphocytes (test code = Lymphocytes) 38.0 20.0-40.0 [place] [address]-12-11 11:20:00 Test Item Value Reference Range Interpretation Comments Monocytes (test code = Monocytes) 7.1 2.0-12.0 [place] 505542-12-11 11:20:00 Test Item Value Reference Range Interpretation Comments Eosinophils (test code = 4.9 See_Comment [A utomated message] The Eosinophils) system which ge nerated this result tra nsmitted reference range : <=4.0. The reference r peri was not used to int erpret this result as normal/abnormal . [facility] CenterGnfqhqmFNXCTDOTLC5727-63-51 11:20:00 Test Item Value Reference Range Interpretation Comments Basophils (test code = 0.7 See_Comment [Aut omated message] The Basophils) system which ge nerated this result tra nsmitted reference range : <=1.0. The reference r peri was not used to int erpret this result as normal/abnormal . [facility]OqcjzxtYYVVYMOYUN5150-39-74 11:20:00 Test Item Value Reference Range Interpretation Comments Neutrophils # (test code = Neutrophils 3.8 1.5-8.1 #) [facility] HospitalIvlpiieVERDHCTIZB3118-11-92 11:20:00 Test Item Value Reference Range Interpretation Comments Lymphocytes # (test code = Lymphocytes 2.9 1.0-5.5 #) [facility] HospitalFdowajgMODCJQPWNK2340-77-29 11:20:00 Test Item Value Reference Range Interpretation Comments Monocytes # (test code 0.5 See_Comment [Aut omated message] The = Monocytes #) system which generated this result tra nsmitted reference range : <=0.8. The reference r peri was not used to int erpret this result as normal/abnormal . [facility] HospitalMtuiwmxZTUQJWJPTM4653-66-12 11:20:00 Test Item Value Reference Range Interpretation Comments Eosinophils # (test code 0.4 See_Comment [A utomated message] The = Eosinophils #) system whic h generated this result tra nsmitted reference range : <=0.5. The reference r peri was not used to int erpret this result as normal/abnormal . [facility] HospitalMvovffjGPPPWKAEUD2584-29-84 11:20:00 Test Item Value Reference Range Interpretation Comments Basophils # (test code 0.1 See_Comment [Aut omated message] The = Basophils #) system which generated this result tra nsmitted reference range : <=0.2. The reference r peri was not used to int erpret this result as normal/abnormal . [facility] CenterCARDIAC GVDLIZC9376-90-95 11:20:00 Test Item Value Reference Range Interpretation Comments Total CK (test code = Total CK) 104 12-191 [facility] CenterCHEM QTLSU7121-32-56 11:20:00 Test Item Value Reference Range Interpretation Comments Glucose Lvl (test code = Glucose Lvl) 95 70-99 [place] 493092-12-11 11:20:00 Test Item Value Reference Range Interpretation Comments BUN (test code = BUN) 10 7-22 [place] 493092-12-11 11:20:00 Test Item Value Reference Range Interpretation Comments Creatinine Lvl (test code = Creatinine 0.70 0.50-1.40 Lvl) [place] 493092-12-11 11:20:00 Test Item Value Reference Range Interpretation Comments Sodium Lvl (test code = Sodium Lvl) 142 135-145 [place] 493092-12-11 11:20:00 Test Item Value Reference Range Interpretation Comments Potassium Lvl (test code = Potassium 3.8 3.5-5.1 Lvl) [place] 493092-12-11 11:20:00 Test Item Value Reference Range Interpretation Comments Chloride Lvl (test code = Chloride Lvl) 108 95-109 [place] 493092-12-11 11:20:00 Test Item Value Reference Range Interpretation Comments CO2 (test code = CO2) 24 24-32 [place] 493092-12-11 11:20:00 Test Item Value Reference Range Interpretation Comments AGAP (test code = AGAP) 13.8 10.0-20.0 [facility]2022-12-11 11:20:00 Test Item Value Reference Range Interpretation Comments Calcium Lvl (test code = Calcium Lvl) 9.7 8.5-10.5 [facility]2022-12-11 11:20:00 Test Item Value Reference Range Interpretation Comments B/C Ratio (test code = B/C Ratio) 14 1 6-25 [place] 493092-12-11 11:20:00 Test Item Value Reference Range Interpretation Comments Total Protein (test code = Total 5.9 6.4-8.4 Protein) [place] 493092-12-11 11:20:00 Test Item Value Reference Range Interpretation Comments Albumin Lvl (test code = Albumin Lvl) 2.9 3.5-5.0 [place] 493092-12-11 11:20:00 Test Item Value Reference Range Interpretation Comments Globulin (test code = Globulin) 3.0 2.7-4.2 [place] 493092-12-11 11:20:00 Test Item Value Reference Range Interpretation Comments A/G Ratio (test code = A/G Ratio) 1.0 1 0.7-1.6 [facility] [id number] 11:20:00 Test Item Value Reference Range Interpretation Comments ALT (test code = ALT) 36 See_Comment [Auto mated message] The system which ge nerated this result transmit suze reference range : <=65. The reference range was not used to interpr et this result as anselmo l/abnormal. [facility] KIQFI9688-98-92 11:20:00 Test Item Value Reference Range Interpretation Comments AST (test code = AST) 23 See_Comment [Auto mated message] The system which ge nerated this result transmit suze reference range : <=37. The reference range was not used to interpr et this result as anselmo l/abnormal. [facility] [id number] 11:20:00 Test Item Value Reference Range Interpretation Comments Alk Phos (test code = Alk Phos) 77 39-136 [facility] BKLRJ6528-16-84 11:20:00 Test Item Value Reference Range Interpretation Comments Bili Total (test code = Bili Total) 0.2 0.2-1.3 [facility] KDERW1418-14-81 11:20:00 Test Item Value Reference Range Interpretation Comments eGFR (test code = eGFR) 117 [facility] CenterJaxfhncTFOSUTWFY4900-58-13 11:20:00 Test Item Value Reference Range Interpretation Comments Total CK (test code = Total CK) 104 12-191 [facility]lineEpluytdKSIWDCNWL5333-50-22 11:20:00 Test Item Value Reference Range Interpretation Comments Glucose Lvl (test code = Glucose Lvl) 95 70-99 [place] [address]-12-11 11:20:00 Test Item Value Reference Range Interpretation Comments BUN (test code = BUN) 10 7-22 [facility] CenterTvkwvtpBQPJBGVZJ6413-00-34 11:20:00 Test Item Value Reference Range Interpretation Comments Creatinine Lvl (test code = Creatinine 0.70 0.50-1.40 Lvl) [facility]lineAzzjqltFJHVYJEWH0589-55-06 11:20:00 Test Item Value Reference Range Interpretation Comments Sodium Lvl (test code = Sodium Lvl) 142 135-145 [place] 683112-12-11 11:20:00 Test Item Value Reference Range Interpretation Comments Potassium Lvl (test code = Potassium 3.8 3.5-5.1 Lvl) [facility] ShorelineDksjlowABUYSXVHL6954-39-91 11:20:00 Test Item Value Reference Range Interpretation Comments Chloride Lvl (test code = Chloride Lvl) 108 95-109 [facility]lineGwzrkitASMWGZQZD7705-47-73 11:20:00 Test Item Value Reference Range Interpretation Comments CO2 (test code = CO2) 24 24-32 [facility]lineGgqzdxtABJDANZEB7918-59-25 11:20:00 Test Item Value Reference Range Interpretation Comments AGAP (test code = AGAP) 13.8 10.0-20.0 [facility]lineNyfxwddULUNOKFJY5109-79-39 11:20:00 Test Item Value Reference Range Interpretation Comments Calcium Lvl (test code = Calcium Lvl) 9.7 8.5-10.5 [facility] ShorelineSsanokzBCCMHYYPA9859-03-77 11:20:00 Test Item Value Reference Range Interpretation Comments B/C Ratio (test code = B/C Ratio) 14 1 6-25 [facility] ShorelineMyougniIGFLLVZIA0473-68-05 11:20:00 Test Item Value Reference Range Interpretation Comments Total Protein (test code = Total 5.9 6.4-8.4 Protein) [facility]lineCiuegbfEWTFLNOSR1608-82-13 11:20:00 Test Item Value Reference Range Interpretation Comments Albumin Lvl (test code = Albumin Lvl) 2.9 3.5-5.0 [facility] ShorelinePlwykvlNLZGNTUEJ9851-70-42 11:20:00 Test Item Value Reference Range Interpretation Comments Globulin (test code = Globulin) 3.0 2.7-4.2 [facility]lineIsxnfqrOMGPNXWWE9830-61-66 11:20:00 Test Item Value Reference Range Interpretation Comments A/G Ratio (test code = A/G Ratio) 1.0 1 0.7-1.6 [facility] ShorelineJhehsmjDIBDUOVBE3229-28-65 11:20:00 Test Item Value Reference Range Interpretation Comments ALT (test code = ALT) 36 See_Comment [Auto mated message] The system which ge nerated this result transmit suze reference range : <=65. The reference range was not used to interpr et this result as anselmo l/abnormal. [facility]lineEgzgvpxFHHNKMVNO3591-52-94 11:20:00 Test Item Value Reference Range Interpretation Comments AST (test code = AST) 23 See_Comment [Auto mated message] The system which ge nerated this result transmit suze reference range : <=37. The reference range was not used to interpr et this result as anselmo l/abnormal. [facility] ShorelineImatswoQGHAOLWWQ6310-08-81 11:20:00 Test Item Value Reference Range Interpretation Comments Alk Phos (test code = Alk Phos) 77 39-136 [facility] ShorelineVtbzjqfTCYNIYIKN0263-59-17 11:20:00 Test Item Value Reference Range Interpretation Comments Bili Total (test code = Bili Total) 0.2 0.2-1.3 [facility]lineOsvywmvHMFABJZVL2392-53-69 11:20:00 Test Item Value Reference Range Interpretation Comments eGFR (test code = eGFR) 117 [facility] CenterQrbtjkpVBDXIMSUWK2104-03-65 11:20:00 Test Item Value Reference Range Interpretation Comments WBC (test code = WBC) 7.7 3.7-10.4 [facility] CenterKqdniaeBSYFOOAHLV3124-85-67 11:20:00 Test Item Value Reference Range Interpretation Comments RBC (test code = RBC) 4.42 4.70-6.10 [facility] CenterGpukndnKVVQLWKGAH9664-19-69 11:20:00 Test Item Value Reference Range Interpretation Comments Hgb (test code = Hgb) 13.7 14.0-18.0 [facility] CenterSszrpbjYZLXPTDVWJ5075-67-52 11:20:00 Test Item Value Reference Range Interpretation Comments Hct (test code = Hct) 40.0 42.0-54.0 [facility] CenterJuvwpidSFJNMSTDIK8118-17-69 11:20:00 Test Item Value Reference Range Interpretation Comments MCV (test code = MCV) 90.7 80.0-94.0 [facility] CenterMzbgchzWZGZGGTZTW3619-53-45 11:20:00 Test Item Value Reference Range Interpretation Comments MCH (test code = MCH) 31.0 pg 27.0-31.0 [facility] CenterCcyjninPLYRAQIVKP7909-77-73 11:20:00 Test Item Value Reference Range Interpretation Comments MCHC (test code = MCHC) 34.2 32.0-36.0 [facility] CenterBeuhaehFSBWRCGATH8208-94-56 11:20:00 Test Item Value Reference Range Interpretation Comments RDW (test code = RDW) 12.7 11.5-14.5 [place] 505542-12-11 11:20:00 Test Item Value Reference Range Interpretation Comments Platelet (test code = Platelet) 213 133-450 [place] 505542-12-11 11:20:00 Test Item Value Reference Range Interpretation Comments MPV (test code = MPV) 9.5 7.4-10.4 [facility] CenterUmcwdrgIASFIAHGZI0512-84-42 11:20:00 Test Item Value Reference Range Interpretation Comments Segs (test code = Segs) 49.3 45.0-75.0 [facility] CenterPlhthhvFLSMQNSVJO5188-51-18 11:20:00 Test Item Value Reference Range Interpretation Comments Lymphocytes (test code = Lymphocytes) 38.0 20.0-40.0 [place] 505542-12-11 11:20:00 Test Item Value Reference Range Interpretation Comments Monocytes (test code = Monocytes) 7.1 2.0-12.0 [facility] CenterXxebsuqWMEHFLZXTM0345-28-42 11:20:00 Test Item Value Reference Range Interpretation Comments Eosinophils (test code = 4.9 See_Comment [A utomated message] The Eosinophils) system which ge nerated this result tra nsmitted reference range : <=4.0. The reference r peri was not used to int erpret this result as normal/abnormal . [facility] CenterOfhgrcyTZATVQSGRY0710-84-79 11:20:00 Test Item Value Reference Range Interpretation Comments Basophils (test code = 0.7 See_Comment [Aut omated message] The Basophils) system which ge nerated this result tra nsmitted reference range : <=1.0. The reference r peri was not used to int erpret this result as normal/abnormal . [facility] CenterCxjmlfhCAFUICFBUP6257-39-88 11:20:00 Test Item Value Reference Range Interpretation Comments Neutrophils # (test code = Neutrophils 3.8 1.5-8.1 #) [place] 505542-12-11 11:20:00 Test Item Value Reference Range Interpretation Comments Lymphocytes # (test code = Lymphocytes 2.9 1.0-5.5 #) [place] 505542-12-11 11:20:00 Test Item Value Reference Range Interpretation Comments Monocytes # (test code 0.5 See_Comment [Aut omated message] The = Monocytes #) system which generated this result tra nsmitted reference range : <=0.8. The reference r peri was not used to int erpret this result as normal/abnormal . [facility] CenterGyziwzvSIERXYENPJ1752-39-55 11:20:00 Test Item Value Reference Range Interpretation Comments Eosinophils # (test code 0.4 See_Comment [A utomated message] The = Eosinophils #) system whic h generated this result tra nsmitted reference range : <=0.5. The reference r peri was not used to int erpret this result as normal/abnormal . [facility] HospitalLcbhmqsZQNVQISYLS6905-64-29 11:20:00 Test Item Value Reference Range Interpretation Comments Basophils # (test code 0.1 See_Comment [Aut omated message] The = Basophils #) system which generated this result tra nsmitted reference range : <=0.2. The reference r peri was not used to int erpret this result as normal/abnormal . [facility] CenterCARDIAC RDOACVF5871-21-12 11:20:00 Test Item Value Reference Range Interpretation Comments Total CK (test code = Total CK) 104 12-191 [facility] RFYUV8051-67-14 11:20:00 Test Item Value Reference Range Interpretation Comments Glucose Lvl (test code = Glucose Lvl) 95 70-99 [facility] NRQHS1242-37-17 11:20:00 Test Item Value Reference Range Interpretation Comments BUN (test code = BUN) 10 7-22 [facility] NBSDO7543-22-43 11:20:00 Test Item Value Reference Range Interpretation Comments Creatinine Lvl (test code = Creatinine 0.70 0.50-1.40 Lvl) [facility] GJOKI0468-89-62 11:20:00 Test Item Value Reference Range Interpretation Comments Sodium Lvl (test code = Sodium Lvl) 142 135-145 [facility] BFFZG0053-68-86 11:20:00 Test Item Value Reference Range Interpretation Comments Potassium Lvl (test code = Potassium 3.8 3.5-5.1 Lvl) [facility] COCJV4942-83-07 11:20:00 Test Item Value Reference Range Interpretation Comments Chloride Lvl (test code = Chloride Lvl) 108 95-109 [facility] VTTRD8857-96-64 11:20:00 Test Item Value Reference Range Interpretation Comments CO2 (test code = CO2) 24 24-32 [place] [address]-12-11 11:20:00 Test Item Value Reference Range Interpretation Comments AGAP (test code = AGAP) 13.8 10.0-20.0 [place] [address]-12-11 11:20:00 Test Item Value Reference Range Interpretation Comments Calcium Lvl (test code = Calcium Lvl) 9.7 8.5-10.5 [place] [address]-12-11 11:20:00 Test Item Value Reference Range Interpretation Comments B/C Ratio (test code = B/C Ratio) 14 1 6-25 [place] [address]-12-11 11:20:00 Test Item Value Reference Range Interpretation Comments Total Protein (test code = Total 5.9 6.4-8.4 Protein) [place] [address]-12-11 11:20:00 Test Item Value Reference Range Interpretation Comments Albumin Lvl (test code = Albumin Lvl) 2.9 3.5-5.0 [place] [address]-12-11 11:20:00 Test Item Value Reference Range Interpretation Comments Globulin (test code = Globulin) 3.0 2.7-4.2 [place] [address]-12-11 11:20:00 Test Item Value Reference Range Interpretation Comments A/G Ratio (test code = A/G Ratio) 1.0 1 0.7-1.6 [place] [address]-12-11 11:20:00 Test Item Value Reference Range Interpretation Comments ALT (test code = ALT) 36 See_Comment [Auto mated message] The system which ge nerated this result transmit suze reference range : <=65. The reference range was not used to interpr et this result as anselmo l/abnormal. [place] [address]-12-11 11:20:00 Test Item Value Reference Range Interpretation Comments AST (test code = AST) 23 See_Comment [Auto mated message] The system which ge nerated this result transmit suze reference range : <=37. The reference range was not used to interpr et this result as anselmo l/abnormal. [place] [address]-12-11 11:20:00 Test Item Value Reference Range Interpretation Comments Alk Phos (test code = Alk Phos) 77 39-136 [facility] [facility] [id number] 11:20:00 Test Item Value Reference Range Interpretation Comments Bili Total (test code = Bili Total) 0.2 0.2-1.3 [facility]2022-12-11 11:20:00 Test Item Value Reference Range Interpretation Comments eGFR (test code = eGFR) 117 [facility]lineDbouvcbXXNOBHOTS3717-53-86 11:20:00 Test Item Value Reference Range Interpretation Comments Total CK (test code = Total CK) 104 12-191 [facility]lineFqhpsxaMJCJODCEP9940-17-49 11:20:00 Test Item Value Reference Range Interpretation Comments Glucose Lvl (test code = Glucose Lvl) 95 70-99 [facility] ShorelineOukylymEJXZEDDOG4933-56-88 11:20:00 Test Item Value Reference Range Interpretation Comments BUN (test code = BUN) 10 7-22 [facility] ShorelineUfvzbimHCVRMQGCE5834-34-24 11:20:00 Test Item Value Reference Range Interpretation Comments Creatinine Lvl (test code = Creatinine 0.70 0.50-1.40 Lvl) [facility]lineDjtielbPSUTWDLMK0393-67-97 11:20:00 Test Item Value Reference Range Interpretation Comments Sodium Lvl (test code = Sodium Lvl) 142 135-145 [facility] ShorelineVjigrkpVKOCVDUFE6806-37-53 11:20:00 Test Item Value Reference Range Interpretation Comments Potassium Lvl (test code = Potassium 3.8 3.5-5.1 Lvl) [facility]lineIoammxxTHZTMTFPB9888-58-08 11:20:00 Test Item Value Reference Range Interpretation Comments Chloride Lvl (test code = Chloride Lvl) 108 95-109 [facility]linePidprqaNEZBPJAJL9681-87-41 11:20:00 Test Item Value Reference Range Interpretation Comments CO2 (test code = CO2) 24 24-32 [facility]lineAgrehyxTORRULBFF9826-28-90 11:20:00 Test Item Value Reference Range Interpretation Comments AGAP (test code = AGAP) 13.8 10.0-20.0 [facility]lineMbkwwfxXFVNWKNGS6522-65-57 11:20:00 Test Item Value Reference Range Interpretation Comments Calcium Lvl (test code = Calcium Lvl) 9.7 8.5-10.5 [facility] ShorelineGknzdpfLAYKEXMUM3107-29-99 11:20:00 Test Item Value Reference Range Interpretation Comments B/C Ratio (test code = B/C Ratio) 14 1 6-25 [place] 683112-12-11 11:20:00 Test Item Value Reference Range Interpretation Comments Total Protein (test code = Total 5.9 6.4-8.4 Protein) [facility]lineWwwqmvtDKFZQUQYY2428-94-44 11:20:00 Test Item Value Reference Range Interpretation Comments Albumin Lvl (test code = Albumin Lvl) 2.9 3.5-5.0 [facility] ShorelineSyoftnfSVVWQWXEQ4130-04-05 11:20:00 Test Item Value Reference Range Interpretation Comments Globulin (test code = Globulin) 3.0 2.7-4.2 [facility]lineQktlafrAGKCUEUOO4299-01-60 11:20:00 Test Item Value Reference Range Interpretation Comments A/G Ratio (test code = A/G Ratio) 1.0 1 0.7-1.6 [facility] ShorelineFzfazykMDYAFJBSR9798-75-62 11:20:00 Test Item Value Reference Range Interpretation Comments ALT (test code = ALT) 36 See_Comment [Auto mated message] The system which ge nerated this result transmit suze reference range : <=65. The reference range was not used to interpr et this result as anselmo l/abnormal. [facility] ShorelineEamzmmjLIMFJRNEB8623-72-85 11:20:00 Test Item Value Reference Range Interpretation Comments AST (test code = AST) 23 See_Comment [Auto mated message] The system which ge nerated this result transmit suze reference range : <=37. The reference range was not used to interpr et this result as anselmo l/abnormal. [facility] ShorelineBhzytaqFQTRHQZUM2791-10-55 11:20:00 Test Item Value Reference Range Interpretation Comments Alk Phos (test code = Alk Phos) 77 39-136 [facility] ShorelineTuukhujFWTHZIYLR8154-51-65 11:20:00 Test Item Value Reference Range Interpretation Comments Bili Total (test code = Bili Total) 0.2 0.2-1.3 [facility] ShorelineVcrjocuSCJVKJPID5461-56-85 11:20:00 Test Item Value Reference Range Interpretation Comments eGFR (test code = eGFR) 117 [facility] CenterDdgafpsKHGACYSSZK7829-62-34 11:20:00 Test Item Value Reference Range Interpretation Comments WBC (test code = WBC) 7.7 3.7-10.4 [place] 505542-12-11 11:20:00 Test Item Value Reference Range Interpretation Comments RBC (test code = RBC) 4.42 4.70-6.10 [facility] CenterDvsdaukHBEOYOQWPZ5209-71-47 11:20:00 Test Item Value Reference Range Interpretation Comments Hgb (test code = Hgb) 13.7 14.0-18.0 [facility] CenterRpxwrnvNWITNODPSA6784-03-78 11:20:00 Test Item Value Reference Range Interpretation Comments Hct (test code = Hct) 40.0 42.0-54.0 [place] 505542-12-11 11:20:00 Test Item Value Reference Range Interpretation Comments MCV (test code = MCV) 90.7 80.0-94.0 [place] 505542-12-11 11:20:00 Test Item Value Reference Range Interpretation Comments MCH (test code = MCH) 31.0 pg 27.0-31.0 [facility] CenterTsxohzcPNFBXJVBVW1952-66-97 11:20:00 Test Item Value Reference Range Interpretation Comments MCHC (test code = MCHC) 34.2 32.0-36.0 [facility] CenterUxsomvwAYEZXXHFBR6237-93-16 11:20:00 Test Item Value Reference Range Interpretation Comments RDW (test code = RDW) 12.7 11.5-14.5 [facility] CenterJfyfiyoZDANGJZSGB7560-55-90 11:20:00 Test Item Value Reference Range Interpretation Comments Platelet (test code = Platelet) 213 133-450 [facility] CenterTnjouujLKYHUBKOQX6734-11-01 11:20:00 Test Item Value Reference Range Interpretation Comments MPV (test code = MPV) 9.5 7.4-10.4 [place] 505542-12-11 11:20:00 Test Item Value Reference Range Interpretation Comments Segs (test code = Segs) 49.3 45.0-75.0 [facility] CenterCdfqatmPFBLSNVHVE7572-03-38 11:20:00 Test Item Value Reference Range Interpretation Comments Lymphocytes (test code = Lymphocytes) 38.0 20.0-40.0 [place] 505542-12-11 11:20:00 Test Item Value Reference Range Interpretation Comments Monocytes (test code = Monocytes) 7.1 2.0-12.0 [place] 505542-12-11 11:20:00 Test Item Value Reference Range Interpretation Comments Eosinophils (test code = 4.9 See_Comment [A utomated message] The Eosinophils) system which ge nerated this result tra nsmitted reference range : <=4.0. The reference r peri was not used to int erpret this result as normal/abnormal . [facility]VklvrnuCGHUNHUUOC6432-83-69 11:20:00 Test Item Value Reference Range Interpretation Comments Basophils (test code = 0.7 See_Comment [Aut omated message] The Basophils) system which ge nerated this result tra nsmitted reference range : <=1.0. The reference r peri was not used to int erpret this result as normal/abnormal . [facility] HospitalFanadreUNVDXVLQFX8639-68-12 11:20:00 Test Item Value Reference Range Interpretation Comments Neutrophils # (test code = Neutrophils 3.8 1.5-8.1 #) [facility] HospitalZghrgxpXEVJESESZP5479-04-46 11:20:00 Test Item Value Reference Range Interpretation Comments Lymphocytes # (test code = Lymphocytes 2.9 1.0-5.5 #) [facility] HospitalNwsoosvEBTTZCUIBL5311-84-08 11:20:00 Test Item Value Reference Range Interpretation Comments Monocytes # (test code 0.5 See_Comment [Aut omated message] The = Monocytes #) system which generated this result tra nsmitted reference range : <=0.8. The reference r peri was not used to int erpret this result as normal/abnormal . [facility] HospitalXeiknijZLFALJIXRG4800-99-40 11:20:00 Test Item Value Reference Range Interpretation Comments Eosinophils # (test code 0.4 See_Comment [A utomated message] The = Eosinophils #) system ic h generated this result tra nsmitted reference range : <=0.5. The reference r peri was not used to int erpret this result as normal/abnormal . [facility] HospitalJjfjvsnZFEVIJGUUF1113-27-54 11:20:00 Test Item Value Reference Range Interpretation Comments Basophils # (test code 0.1 See_Comment [Aut omated message] The = Basophils #) system which generated this result tra nsmitted reference range : <=0.2. The reference r peri was not used to int erpret this result as normal/abnormal . [facility] CenterCARDIAC BRCAKTB8624-77-49 11:20:00 Test Item Value Reference Range Interpretation Comments Total CK (test code = Total CK) 104 12-191 [facility] CenterCHEM NMKOR9509-42-23 11:20:00 Test Item Value Reference Range Interpretation Comments Glucose Lvl (test code = Glucose Lvl) 95 70-99 [place] 493092-12-11 11:20:00 Test Item Value Reference Range Interpretation Comments BUN (test code = BUN) 10 7-22 [place] 493092-12-11 11:20:00 Test Item Value Reference Range Interpretation Comments Creatinine Lvl (test code = Creatinine 0.70 0.50-1.40 Lvl) [place] 493092-12-11 11:20:00 Test Item Value Reference Range Interpretation Comments Sodium Lvl (test code = Sodium Lvl) 142 135-145 [place] 493092-12-11 11:20:00 Test Item Value Reference Range Interpretation Comments Potassium Lvl (test code = Potassium 3.8 3.5-5.1 Lvl) [place] 493092-12-11 11:20:00 Test Item Value Reference Range Interpretation Comments Chloride Lvl (test code = Chloride Lvl) 108 95-109 [place] 493092-12-11 11:20:00 Test Item Value Reference Range Interpretation Comments CO2 (test code = CO2) 24 24-32 [place] 493092-12-11 11:20:00 Test Item Value Reference Range Interpretation Comments AGAP (test code = AGAP) 13.8 10.0-20.0 [place] 493092-12-11 11:20:00 Test Item Value Reference Range Interpretation Comments Calcium Lvl (test code = Calcium Lvl) 9.7 8.5-10.5 [place] 493092-12-11 11:20:00 Test Item Value Reference Range Interpretation Comments B/C Ratio (test code = B/C Ratio) 14 1 6-25 [place] [address]-12-11 11:20:00 Test Item Value Reference Range Interpretation Comments Total Protein (test code = Total 5.9 6.4-8.4 Protein) [place] 493092-12-11 11:20:00 Test Item Value Reference Range Interpretation Comments Albumin Lvl (test code = Albumin Lvl) 2.9 3.5-5.0 [place] 493092-12-11 11:20:00 Test Item Value Reference Range Interpretation Comments Globulin (test code = Globulin) 3.0 2.7-4.2 [place] 493092-12-11 11:20:00 Test Item Value Reference Range Interpretation Comments A/G Ratio (test code = A/G Ratio) 1.0 1 0.7-1.6 [place] 493092-12-11 11:20:00 Test Item Value Reference Range Interpretation Comments ALT (test code = ALT) 36 See_Comment [Auto mated message] The system which ge nerated this result transmit suze reference range : <=65. The reference range was not used to interpr et this result as anselmo l/abnormal. [facility] CenterClew ZOYWN5845-03-26 11:20:00 Test Item Value Reference Range Interpretation Comments AST (test code = AST) 23 See_Comment [Auto mated message] The system which ge nerated this result transmit suze reference range : <=37. The reference range was not used to interpr et this result as anselmo l/abnormal. [place] 493092-12-11 11:20:00 Test Item Value Reference Range Interpretation Comments Alk Phos (test code = Alk Phos) 77 39-136 [place] 493092-12-11 11:20:00 Test Item Value Reference Range Interpretation Comments Bili Total (test code = Bili Total) 0.2 0.2-1.3 [place] [address]-12-11 11:20:00 Test Item Value Reference Range Interpretation Comments eGFR (test code = eGFR) 117 [place] [address]-12-11 11:20:00 Test Item Value Reference Range Interpretation Comments Total CK (test code = Total CK) 104 12-191 [place] 683112-12-11 11:20:00 Test Item Value Reference Range Interpretation Comments Glucose Lvl (test code = Glucose Lvl) 95 70-99 [place] [address]-12-11 11:20:00 Test Item Value Reference Range Interpretation Comments BUN (test code = BUN) 10 7-22 [place] [address]-12-11 11:20:00 Test Item Value Reference Range Interpretation Comments Creatinine Lvl (test code = Creatinine 0.70 0.50-1.40 Lvl) [place] 683112-12-11 11:20:00 Test Item Value Reference Range Interpretation Comments Sodium Lvl (test code = Sodium Lvl) 142 135-145 [facility]lineXpchrycRTZDQTGVJ8433-41-39 11:20:00 Test Item Value Reference Range Interpretation Comments Potassium Lvl (test code = Potassium 3.8 3.5-5.1 Lvl) [facility]lineTkshadyGBVIFGPUP0820-85-99 11:20:00 Test Item Value Reference Range Interpretation Comments Chloride Lvl (test code = Chloride Lvl) 108 95-109 [facility]lineVveygygCLTUSVZSJ1228-71-45 11:20:00 Test Item Value Reference Range Interpretation Comments CO2 (test code = CO2) 24 24-32 [facility]lineGydvviqUFAIFZBUI8551-66-66 11:20:00 Test Item Value Reference Range Interpretation Comments AGAP (test code = AGAP) 13.8 10.0-20.0 [facility] ShorelineFrlouqrRGWMGQCOK7690-80-79 11:20:00 Test Item Value Reference Range Interpretation Comments Calcium Lvl (test code = Calcium Lvl) 9.7 8.5-10.5 [facility]lineYjmziayINIYPJGXV5807-16-31 11:20:00 Test Item Value Reference Range Interpretation Comments B/C Ratio (test code = B/C Ratio) 14 1 6-25 [facility] ShorelineDhnncawPGSUBTPTY5639-26-87 11:20:00 Test Item Value Reference Range Interpretation Comments Total Protein (test code = Total 5.9 6.4-8.4 Protein) [facility]lineSrdiromSOBIHVRWV6660-02-91 11:20:00 Test Item Value Reference Range Interpretation Comments Albumin Lvl (test code = Albumin Lvl) 2.9 3.5-5.0 [facility] ShorelineJeuoatvNLXYYOBAY7551-38-02 11:20:00 Test Item Value Reference Range Interpretation Comments Globulin (test code = Globulin) 3.0 2.7-4.2 [facility]linePgpkkjqPBLUMZGIS8465-65-03 11:20:00 Test Item Value Reference Range Interpretation Comments A/G Ratio (test code = A/G Ratio) 1.0 1 0.7-1.6 [facility] ShorelineDsuakneVEWYIRJVS0034-72-56 11:20:00 Test Item Value Reference Range Interpretation Comments ALT (test code = ALT) 36 See_Comment [Auto mated message] The system which ge nerated this result transmit suze reference range : <=65. The reference range was not used to interpr et this result as anselmo l/abnormal. [place] 683112-12-11 11:20:00 Test Item Value Reference Range Interpretation Comments AST (test code = AST) 23 See_Comment [Auto mated message] The system which ge nerated this result transmit suze reference range : <=37. The reference range was not used to interpr et this result as anselmo l/abnormal. [facility]lineTepzvehFZCQUZGTS5551-65-17 11:20:00 Test Item Value Reference Range Interpretation Comments Alk Phos (test code = Alk Phos) 77 39-136 [facility] ShorelineKhhidaqLLNKXBEWY9237-03-40 11:20:00 Test Item Value Reference Range Interpretation Comments Bili Total (test code = Bili Total) 0.2 0.2-1.3 [facility]lineHhqkjwbAHRHXRMCR4639-06-50 11:20:00 Test Item Value Reference Range Interpretation Comments eGFR (test code = eGFR) 117 [facility] CenterBqihojdFMKEDDKEGJ8323-36-21 11:20:00 Test Item Value Reference Range Interpretation Comments WBC (test code = WBC) 7.7 3.7-10.4 [facility] CenterLczkwuoPDKHIIZNUB7726-89-92 11:20:00 Test Item Value Reference Range Interpretation Comments RBC (test code = RBC) 4.42 4.70-6.10 [facility] CenterFvupgdrBCRUVNAMHJ2996-16-48 11:20:00 Test Item Value Reference Range Interpretation Comments Hgb (test code = Hgb) 13.7 14.0-18.0 [facility] CenterEjqfohgBJFMXLORPC0627-88-93 11:20:00 Test Item Value Reference Range Interpretation Comments Hct (test code = Hct) 40.0 42.0-54.0 [place] 505542-12-11 11:20:00 Test Item Value Reference Range Interpretation Comments MCV (test code = MCV) 90.7 80.0-94.0 [facility] CenterUyhqnhuIJNUVQBIUB1921-02-94 11:20:00 Test Item Value Reference Range Interpretation Comments MCH (test code = MCH) 31.0 pg 27.0-31.0 [facility] CenterTukrnpaGZVLKSJQKW7685-93-39 11:20:00 Test Item Value Reference Range Interpretation Comments MCHC (test code = MCHC) 34.2 32.0-36.0 [facility] CenterIlrsfmhUDXWXTISIC1948-62-71 11:20:00 Test Item Value Reference Range Interpretation Comments RDW (test code = RDW) 12.7 11.5-14.5 [place] 505542-12-11 11:20:00 Test Item Value Reference Range Interpretation Comments Platelet (test code = Platelet) 213 133-450 [place] 505542-12-11 11:20:00 Test Item Value Reference Range Interpretation Comments MPV (test code = MPV) 9.5 7.4-10.4 [place] 505542-12-11 11:20:00 Test Item Value Reference Range Interpretation Comments Segs (test code = Segs) 49.3 45.0-75.0 [place] 505542-12-11 11:20:00 Test Item Value Reference Range Interpretation Comments Lymphocytes (test code = Lymphocytes) 38.0 20.0-40.0 [place] 505542-12-11 11:20:00 Test Item Value Reference Range Interpretation Comments Monocytes (test code = Monocytes) 7.1 2.0-12.0 [place] 505542-12-11 11:20:00 Test Item Value Reference Range Interpretation Comments Eosinophils (test code = 4.9 See_Comment [A utomated message] The Eosinophils) system which ge nerated this result tra nsmitted reference range : <=4.0. The reference r peri was not used to int erpret this result as normal/abnormal . [facility] CenterRdieeidLXRVDVDQTI9809-64-54 11:20:00 Test Item Value Reference Range Interpretation Comments Basophils (test code = 0.7 See_Comment [Aut omated message] The Basophils) system which ge nerated this result tra nsmitted reference range : <=1.0. The reference r peri was not used to int erpret this result as normal/abnormal . [facility] CenterOzfkdibWMMMADYWWO0092-18-57 11:20:00 Test Item Value Reference Range Interpretation Comments Neutrophils # (test code = Neutrophils 3.8 1.5-8.1 #) [place] 505542-12-11 11:20:00 Test Item Value Reference Range Interpretation Comments Lymphocytes # (test code = Lymphocytes 2.9 1.0-5.5 #) [place] 505542-12-11 11:20:00 Test Item Value Reference Range Interpretation Comments Monocytes # (test code 0.5 See_Comment [Aut omated message] The = Monocytes #) system which generated this result tra nsmitted reference range : <=0.8. The reference r peri was not used to int erpret this result as normal/abnormal . [place] 505542-12-11 11:20:00 Test Item Value Reference Range Interpretation Comments Eosinophils # (test code 0.4 See_Comment [A utomated message] The = Eosinophils #) system whic h generated this result tra nsmitted reference range : <=0.5. The reference r peri was not used to int erpret this result as normal/abnormal . [place] 505542-12-11 11:20:00 Test Item Value Reference Range Interpretation Comments Basophils # (test code 0.1 See_Comment [Aut omated message] The = Basophils #) system which generated this result tra nsmitted reference range : <=0.2. The reference r peri was not used to int erpret this result as normal/abnormal . [facility] CenterLgwgwpeRUIMMCMXXL6686-11-89 11:20:00 Test Item Value Reference Range Interpretation Comments WBC (test code = WBC) 7.7 3.7-10.4 [place] [address]-12-11 11:20:00 Test Item Value Reference Range Interpretation Comments RBC (test code = RBC) 4.42 4.70-6.10 [place] 505542-12-11 11:20:00 Test Item Value Reference Range Interpretation Comments Hgb (test code = Hgb) 13.7 14.0-18.0 [place] 505542-12-11 11:20:00 Test Item Value Reference Range Interpretation Comments Hct (test code = Hct) 40.0 42.0-54.0 [place] 505542-12-11 11:20:00 Test Item Value Reference Range Interpretation Comments MCV (test code = MCV) 90.7 80.0-94.0 [place] [address]-12-11 11:20:00 Test Item Value Reference Range Interpretation Comments MCH (test code = MCH) 31.0 pg 27.0-31.0 [place] [address]-12-11 11:20:00 Test Item Value Reference Range Interpretation Comments MCHC (test code = MCHC) 34.2 32.0-36.0 [place] [address]-12-11 11:20:00 Test Item Value Reference Range Interpretation Comments RDW (test code = RDW) 12.7 11.5-14.5 [place] 505542-12-11 11:20:00 Test Item Value Reference Range Interpretation Comments Platelet (test code = Platelet) 213 133-450 [place] 505542-12-11 11:20:00 Test Item Value Reference Range Interpretation Comments MPV (test code = MPV) 9.5 7.4-10.4 [facility] CenterXrletiwZZBIHESHOE2669-29-24 11:20:00 Test Item Value Reference Range Interpretation Comments Segs (test code = Segs) 49.3 45.0-75.0 [place] 505542-12-11 11:20:00 Test Item Value Reference Range Interpretation Comments Lymphocytes (test code = Lymphocytes) 38.0 20.0-40.0 [place] 505542-12-11 11:20:00 Test Item Value Reference Range Interpretation Comments Monocytes (test code = Monocytes) 7.1 2.0-12.0 [facility] CenterLmfoxvfORMDBUUNRB7597-74-40 11:20:00 Test Item Value Reference Range Interpretation Comments Eosinophils (test code = 4.9 See_Comment [A utomated message] The Eosinophils) system which ge nerated this result tra nsmitted reference range : <=4.0. The reference r peri was not used to int erpret this result as normal/abnormal . [facility] CenterEtxlwyfVVXOKYSYHP1066-18-90 11:20:00 Test Item Value Reference Range Interpretation Comments Basophils (test code = 0.7 See_Comment [Aut omated message] The Basophils) system which ge nerated this result tra nsmitted reference range : <=1.0. The reference r peri was not used to int erpret this result as normal/abnormal . [place] 505542-12-11 11:20:00 Test Item Value Reference Range Interpretation Comments Neutrophils # (test code = Neutrophils 3.8 1.5-8.1 #) [place] 505542-12-11 11:20:00 Test Item Value Reference Range Interpretation Comments Lymphocytes # (test code = Lymphocytes 2.9 1.0-5.5 #) [place] 505542-12-11 11:20:00 Test Item Value Reference Range Interpretation Comments Monocytes # (test code 0.5 See_Comment [Aut omated message] The = Monocytes #) system which generated this result tra nsmitted reference range : <=0.8. The reference r peri was not used to int erpret this result as normal/abnormal . [facility] CenterWjgwwepIFLXHVQQAX4980-21-74 11:20:00 Test Item Value Reference Range Interpretation Comments Eosinophils # (test code 0.4 See_Comment [A utomated message] The = Eosinophils #) system whic h generated this result tra nsmitted reference range : <=0.5. The reference r peri was not used to int erpret this result as normal/abnormal . [facility] CenterKecildhTWSVFDBBYV3470-63-52 11:20:00 Test Item Value Reference Range Interpretation Comments Basophils # (test code 0.1 See_Comment [Aut omated message] The = Basophils #) system which generated this result tra nsmitted reference range : <=0.2. The reference r peri was not used to int erpret this result as normal/abnormal . [facility] ENRWWIX6695-19-25 11:20:00 Test Item Value Reference Range Interpretation Comments Total CK (test code = Total CK) 104 12-191 [facility]2022-12-11 11:20:00 Test Item Value Reference Range Interpretation Comments Glucose Lvl (test code = Glucose Lvl) 95 70-99 [facility]Cle[facility] ZHEUL3016-54-85 11:20:00 Test Item Value Reference Range Interpretation Comments BUN (test code = BUN) 10 7-22 [facility] VGVUR7524-52-44 11:20:00 Test Item Value Reference Range Interpretation Comments Creatinine Lvl (test code = Creatinine 0.70 0.50-1.40 Lvl) [facility] MNIRW9133-93-28 11:20:00 Test Item Value Reference Range Interpretation Comments Sodium Lvl (test code = Sodium Lvl) 142 135-145 [facility] GYOPA1856-35-79 11:20:00 Test Item Value Reference Range Interpretation Comments Potassium Lvl (test code = Potassium 3.8 3.5-5.1 Lvl) [facility] DRRYU1887-57-78 11:20:00 Test Item Value Reference Range Interpretation Comments Chloride Lvl (test code = Chloride Lvl) 108 95-109 [place] [address]-12-11 11:20:00 Test Item Value Reference Range Interpretation Comments CO2 (test code = CO2) 24 24-32 [address]12-11 11:20:00 Test Item Value Reference Range Interpretation Comments AGAP (test code = AGAP) 13.8 10.0-20.0 [place] [address]-12-11 11:20:00 Test Item Value Reference Range Interpretation Comments Calcium Lvl (test code = Calcium Lvl) 9.7 8.5-10.5 [place] [address]-12-11 11:20:00 Test Item Value Reference Range Interpretation Comments B/C Ratio (test code = B/C Ratio) 14 1 6-[address]12-11 11:20:00 Test Item Value Reference Range Interpretation Comments Total Protein (test code = Total 5.9 6.4-8.4 Protein) [address]12-11 11:20:00 Test Item Value Reference Range Interpretation Comments Albumin Lvl (test code = Albumin Lvl) 2.9 3.5-5.0 [place] [address]-12-11 11:20:00 Test Item Value Reference Range Interpretation Comments Globulin (test code = Globulin) 3.0 2.7-4.2 [place] [address]-12-11 11:20:00 Test Item Value Reference Range Interpretation Comments A/G Ratio (test code = A/G Ratio) 1.0 1 0.7-1.[address]12-11 11:20:00 Test Item Value Reference Range Interpretation Comments ALT (test code = ALT) 36 See_Comment [Auto mated message] The system which ge nerated this result transmit suze reference range : <=65. The reference range was not used to interpr et this result as anselmo l/abnormal. [facility] [id number] 11:20:00 Test Item Value Reference Range Interpretation Comments AST (test code = AST) 23 See_Comment [Auto mated message] The system which ge nerated this result transmit suze reference range : <=37. The reference range was not used to interpr et this result as anselmo l/abnormal. [facility] [id number] 11:20:00 Test Item Value Reference Range Interpretation Comments Alk Phos (test code = Alk Phos) 77 39-136 [facility]2022-12-11 11:20:00 Test Item Value Reference Range Interpretation Comments Bili Total (test code = Bili Total) 0.2 0.2-1.3 [facility]2022-12-11 11:20:00 Test Item Value Reference Range Interpretation Comments eGFR (test code = eGFR) 117 [facility]lineOeffxckWHLIZRLKJ7064-51-30 11:20:00 Test Item Value Reference Range Interpretation Comments Total CK (test code = Total CK) 104 12-191 [facility] ShorelinePhfyempLUBIBBYNY6709-60-54 11:20:00 Test Item Value Reference Range Interpretation Comments Glucose Lvl (test code = Glucose Lvl) 95 70-99 [facility]lineQgufvnqFBVGNZCQH5037-64-60 11:20:00 Test Item Value Reference Range Interpretation Comments BUN (test code = BUN) 10 7-22 [facility] ShorelineAqialdyOGIZPGOAY1073-01-89 11:20:00 Test Item Value Reference Range Interpretation Comments Creatinine Lvl (test code = Creatinine 0.70 0.50-1.40 Lvl) [facility]lineAvrruwjKRMZCJZHZ8093-36-70 11:20:00 Test Item Value Reference Range Interpretation Comments Sodium Lvl (test code = Sodium Lvl) 142 135-145 [facility]lineJwasdwtUMZLQOTSV9266-13-38 11:20:00 Test Item Value Reference Range Interpretation Comments Potassium Lvl (test code = Potassium 3.8 3.5-5.1 Lvl) [facility] ShorelineOfuspwgMWGCAETVW7997-94-55 11:20:00 Test Item Value Reference Range Interpretation Comments Chloride Lvl (test code = Chloride Lvl) 108 95-109 [facility] ShorelineBhrybigXEWBWYDRK8273-19-03 11:20:00 Test Item Value Reference Range Interpretation Comments CO2 (test code = CO2) 24 24-32 [facility] ShorelineBawyfxePMDGDYKGA4098-46-17 11:20:00 Test Item Value Reference Range Interpretation Comments AGAP (test code = AGAP) 13.8 10.0-20.0 [facility] ShorelineSgbrrwdSPGMUCZFX0202-59-55 11:20:00 Test Item Value Reference Range Interpretation Comments Calcium Lvl (test code = Calcium Lvl) 9.7 8.5-10.5 [facility] ShorelineNchhltaPKESYEKZB5782-11-09 11:20:00 Test Item Value Reference Range Interpretation Comments B/C Ratio (test code = B/C Ratio) 14 1 6-25 [facility]lineUhzdpxxGGPQYUCHS0162-33-54 11:20:00 Test Item Value Reference Range Interpretation Comments Total Protein (test code = Total 5.9 6.4-8.4 Protein) [facility] ShorelineQepczagTBCEDXXNN5165-75-14 11:20:00 Test Item Value Reference Range Interpretation Comments Albumin Lvl (test code = Albumin Lvl) 2.9 3.5-5.0 [facility]lineCigfdzdABYXCUZLH4432-55-40 11:20:00 Test Item Value Reference Range Interpretation Comments Globulin (test code = Globulin) 3.0 2.7-4.2 [facility] ShorelineZtcddwbVVOIGQJEQ6770-22-18 11:20:00 Test Item Value Reference Range Interpretation Comments A/G Ratio (test code = A/G Ratio) 1.0 1 0.7-1.6 [facility] ShorelineCvtdqohNQFPWWBQF2565-85-74 11:20:00 Test Item Value Reference Range Interpretation Comments ALT (test code = ALT) 36 See_Comment [Auto mated message] The system which ge nerated this result transmit szue reference range : <=65. The reference range was not used to interpr et this result as anselmo l/abnormal. [facility] ShorelineDhhnhtgVFPUBXARJ4622-59-03 11:20:00 Test Item Value Reference Range Interpretation Comments AST (test code = AST) 23 See_Comment [Auto mated message] The system which ge nerated this result transmit suze reference range : <=37. The reference range was not used to interpr et this result as anselmo l/abnormal. [facility]lineNgnjqquOMBQIMJWX7339-92-32 11:20:00 Test Item Value Reference Range Interpretation Comments Alk Phos (test code = Alk Phos) 77 39-136 [facility] ShorelineRhizeogHHQAORILK8626-07-12 11:20:00 Test Item Value Reference Range Interpretation Comments Bili Total (test code = Bili Total) 0.2 0.2-1.3 [facility] ShorelinePcmkzrsZZRRAFQEH0194-31-34 11:20:00 Test Item Value Reference Range Interpretation Comments eGFR (test code = eGFR) 117 [facility] CenterNaqyysyVFMCTPIQLC9960-05-35 11:20:00 Test Item Value Reference Range Interpretation Comments WBC (test code = WBC) 7.7 3.7-10.4 [place] [address]-12-11 11:20:00 Test Item Value Reference Range Interpretation Comments RBC (test code = RBC) 4.42 4.70-6.10 [place] 505542-12-11 11:20:00 Test Item Value Reference Range Interpretation Comments Hgb (test code = Hgb) 13.7 14.0-18.0 [place] 505542-12-11 11:20:00 Test Item Value Reference Range Interpretation Comments Hct (test code = Hct) 40.0 42.0-54.0 [place] 505542-12-11 11:20:00 Test Item Value Reference Range Interpretation Comments MCV (test code = MCV) 90.7 80.0-94.0 [place] 505542-12-11 11:20:00 Test Item Value Reference Range Interpretation Comments MCH (test code = MCH) 31.0 pg 27.0-31.0 [place] 505542-12-11 11:20:00 Test Item Value Reference Range Interpretation Comments MCHC (test code = MCHC) 34.2 32.0-36.0 [place] 505542-12-11 11:20:00 Test Item Value Reference Range Interpretation Comments RDW (test code = RDW) 12.7 11.5-14.5 [place] 505542-12-11 11:20:00 Test Item Value Reference Range Interpretation Comments Platelet (test code = Platelet) 213 133-450 [facility] CenterRdkuotkKFPEUFANYV4428-35-11 11:20:00 Test Item Value Reference Range Interpretation Comments MPV (test code = MPV) 9.5 7.4-10.4 [place] 505542-12-11 11:20:00 Test Item Value Reference Range Interpretation Comments Segs (test code = Segs) 49.3 45.0-75.0 [place] [address]-12-11 11:20:00 Test Item Value Reference Range Interpretation Comments Lymphocytes (test code = Lymphocytes) 38.0 20.0-40.0 [place] [address]-12-11 11:20:00 Test Item Value Reference Range Interpretation Comments Monocytes (test code = Monocytes) 7.1 2.0-12.0 [place] 505542-12-11 11:20:00 Test Item Value Reference Range Interpretation Comments Eosinophils (test code = 4.9 See_Comment [A utomated message] The Eosinophils) system which ge nerated this result tra nsmitted reference range : <=4.0. The reference r peri was not used to int erpret this result as normal/abnormal . [place] [address]-12-11 11:20:00 Test Item Value Reference Range Interpretation Comments Basophils (test code = 0.7 See_Comment [Aut omated message] The Basophils) system which ge nerated this result tra nsmitted reference range : <=1.0. The reference r peri was not used to int erpret this result as normal/abnormal . [place] [address]-12-11 11:20:00 Test Item Value Reference Range Interpretation Comments Neutrophils # (test code = Neutrophils 3.8 1.5-8.1 #) [place] [address]-12-11 11:20:00 Test Item Value Reference Range Interpretation Comments Lymphocytes # (test code = Lymphocytes 2.9 1.0-5.5 #) [place] [address]-12-11 11:20:00 Test Item Value Reference Range Interpretation Comments Monocytes # (test code 0.5 See_Comment [Aut omated message] The = Monocytes #) system which generated this result tra nsmitted reference range : <=0.8. The reference r peri was not used to int erpret this result as normal/abnormal . [place] 505542-12-11 11:20:00 Test Item Value Reference Range Interpretation Comments Eosinophils # (test code 0.4 See_Comment [A utomated message] The = Eosinophils #) system whic h generated this result tra nsmitted reference range : <=0.5. The reference r peri was not used to int erpret this result as normal/abnormal . [place] [address]-12-11 11:20:00 Test Item Value Reference Range Interpretation Comments Basophils # (test code 0.1 See_Comment [Aut omated message] The = Basophils #) system which generated this result tra nsmitted reference range : <=0.2. The reference r peri was not used to int erpret this result as normal/abnormal . [place] [address]-12-11 11:20:00 Test Item Value Reference Range Interpretation Comments WBC (test code = WBC) 7.7 3.7-10.4 [place] 505542-12-11 11:20:00 Test Item Value Reference Range Interpretation Comments RBC (test code = RBC) 4.42 4.70-6.10 [place] 505542-12-11 11:20:00 Test Item Value Reference Range Interpretation Comments Hgb (test code = Hgb) 13.7 14.0-18.0 [place] 5055[place]-12-11 11:20:00 Test Item Value Reference Range Interpretation Comments Hct (test code = Hct) 40.0 42.0-54.0 [facility] CenterJkyvtpuYLMRKTGZYZ9973-47-16 11:20:00 Test Item Value Reference Range Interpretation Comments MCV (test code = MCV) 90.7 80.0-94.0 [place] 505542-12-11 11:20:00 Test Item Value Reference Range Interpretation Comments MCH (test code = MCH) 31.0 pg 27.0-31.0 [place] 505542-12-11 11:20:00 Test Item Value Reference Range Interpretation Comments MCHC (test code = MCHC) 34.2 32.0-36.0 [facility] CenterJpbtpitVXZKKWRMFZ5672-00-76 11:20:00 Test Item Value Reference Range Interpretation Comments RDW (test code = RDW) 12.7 11.5-14.5 [place] 5055[place]-12-11 11:20:00 Test Item Value Reference Range Interpretation Comments Platelet (test code = Platelet) 213 133-450 [facility] CenterVouxebiMZPTYBAQGM5298-64-80 11:20:00 Test Item Value Reference Range Interpretation Comments MPV (test code = MPV) 9.5 7.4-10.4 [place] 505542-12-11 11:20:00 Test Item Value Reference Range Interpretation Comments Segs (test code = Segs) 49.3 45.0-75.0 [place] [address]-12-11 11:20:00 Test Item Value Reference Range Interpretation Comments Lymphocytes (test code = Lymphocytes) 38.0 20.0-40.0 [place] 505542-12-11 11:20:00 Test Item Value Reference Range Interpretation Comments Monocytes (test code = Monocytes) 7.1 2.0-12.0 [place] [address]-12-11 11:20:00 Test Item Value Reference Range Interpretation Comments Eosinophils (test code = 4.9 See_Comment [A utomated message] The Eosinophils) system which ge nerated this result tra nsmitted reference range : <=4.0. The reference r peri was not used to int erpret this result as normal/abnormal . [place] [address]-12-11 11:20:00 Test Item Value Reference Range Interpretation Comments Basophils (test code = 0.7 See_Comment [Aut omated message] The Basophils) system which ge nerated this result tra nsmitted reference range : <=1.0. The reference r peri was not used to int erpret this result as normal/abnormal . [place] [address]-12-11 11:20:00 Test Item Value Reference Range Interpretation Comments Neutrophils # (test code = Neutrophils 3.8 1.5-8.1 #) [place] [address]-12-11 11:20:00 Test Item Value Reference Range Interpretation Comments Lymphocytes # (test code = Lymphocytes 2.9 1.0-5.5 #) [place] [address]-12-11 11:20:00 Test Item Value Reference Range Interpretation Comments Monocytes # (test code 0.5 See_Comment [Aut omated message] The = Monocytes #) system which generated this result tra nsmitted reference range : <=0.8. The reference r peri was not used to int erpret this result as normal/abnormal . [place] [address]-12-11 11:20:00 Test Item Value Reference Range Interpretation Comments Eosinophils # (test code 0.4 See_Comment [A utomated message] The = Eosinophils #) system whic h generated this result tra nsmitted reference range : <=0.5. The reference r peri was not used to int erpret this result as normal/abnormal . [place] [address]-12-11 11:20:00 Test Item Value Reference Range Interpretation Comments Basophils # (test code 0.1 See_Comment [Aut omated message] The = Basophils #) system which generated this result tra nsmitted reference range : <=0.2. The reference r peri was not used to int erpret this result as normal/abnormal . [facility] UVTIPZX9890-25-51 11:20:00 Test Item Value Reference Range Interpretation Comments Total CK (test code = Total CK) 104 12-191 [facility]2022-12-11 11:20:00 Test Item Value Reference Range Interpretation Comments Glucose Lvl (test code = Glucose Lvl) 95 70-99 [facility]2022-12-11 11:20:00 Test Item Value Reference Range Interpretation Comments BUN (test code = BUN) 10 7-22 [place] 493092-12-11 11:20:00 Test Item Value Reference Range Interpretation Comments Creatinine Lvl (test code = Creatinine 0.70 0.50-1.40 Lvl) [facility]2022-12-11 11:20:00 Test Item Value Reference Range Interpretation Comments Sodium Lvl (test code = Sodium Lvl) 142 135-145 [facility]2022-12-11 11:20:00 Test Item Value Reference Range Interpretation Comments Potassium Lvl (test code = Potassium 3.8 3.5-5.1 Lvl) [facility]2022-12-11 11:20:00 Test Item Value Reference Range Interpretation Comments Chloride Lvl (test code = Chloride Lvl) 108 95-109 [facility] QSHNB7598-27-96 11:20:00 Test Item Value Reference Range Interpretation Comments CO2 (test code = CO2) 24 24-32 [facility]2022-12-11 11:20:00 Test Item Value Reference Range Interpretation Comments AGAP (test code = AGAP) 13.8 10.0-20.0 [place] 493092-12-11 11:20:00 Test Item Value Reference Range Interpretation Comments Calcium Lvl (test code = Calcium Lvl) 9.7 8.5-10.5 [facility]2022-12-11 11:20:00 Test Item Value Reference Range Interpretation Comments B/C Ratio (test code = B/C Ratio) 14 1 6-25 [place] 493092-12-11 11:20:00 Test Item Value Reference Range Interpretation Comments Total Protein (test code = Total 5.9 6.4-8.4 Protein) [facility]2022-12-11 11:20:00 Test Item Value Reference Range Interpretation Comments Albumin Lvl (test code = Albumin Lvl) 2.9 3.5-5.0 [place] [address]-12-11 11:20:00 Test Item Value Reference Range Interpretation Comments Globulin (test code = Globulin) 3.0 2.7-4.2 [place] 493092-12-11 11:20:00 Test Item Value Reference Range Interpretation Comments A/G Ratio (test code = A/G Ratio) 1.0 1 0.7-1.6 [place] 493092-12-11 11:20:00 Test Item Value Reference Range Interpretation Comments ALT (test code = ALT) 36 See_Comment [Auto mated message] The system which ge nerated this result transmit suze reference range : <=65. The reference range was not used to interpr et this result as anselmo l/abnormal. [place] [address]-12-11 11:20:00 Test Item Value Reference Range Interpretation Comments AST (test code = AST) 23 See_Comment [Auto mated message] The system which ge nerated this result transmit suze reference range : <=37. The reference range was not used to interpr et this result as anselmo l/abnormal. [facility]2022-12-11 11:20:00 Test Item Value Reference Range Interpretation Comments Alk Phos (test code = Alk Phos) 77 39-136 [facility]2022-12-11 11:20:00 Test Item Value Reference Range Interpretation Comments Bili Total (test code = Bili Total) 0.2 0.2-1.3 [place] 493092-12-11 11:20:00 Test Item Value Reference Range Interpretation Comments eGFR (test code = eGFR) 117 [place] [address]-12-11 11:20:00 Test Item Value Reference Range Interpretation Comments Total CK (test code = Total CK) 104 12-191 [facility]lineRbghmrqPHVFYAIBZ2494-17-09 11:20:00 Test Item Value Reference Range Interpretation Comments Glucose Lvl (test code = Glucose Lvl) 95 70-99 [place] 683112-12-11 11:20:00 Test Item Value Reference Range Interpretation Comments BUN (test code = BUN) 10 7-22 [place] 683112-12-11 11:20:00 Test Item Value Reference Range Interpretation Comments Creatinine Lvl (test code = Creatinine 0.70 0.50-1.40 Lvl) [facility]lineGeiloehKJZKGQZPW1536-69-01 11:20:00 Test Item Value Reference Range Interpretation Comments Sodium Lvl (test code = Sodium Lvl) 142 135-145 [facility] ShorelineWumigdkVHSKOAINQ9740-67-14 11:20:00 Test Item Value Reference Range Interpretation Comments Potassium Lvl (test code = Potassium 3.8 3.5-5.1 Lvl) [facility]lineGmnnywzRLPIZRANN2752-53-65 11:20:00 Test Item Value Reference Range Interpretation Comments Chloride Lvl (test code = Chloride Lvl) 108 95-109 [facility] ShorelineAznvjluTOPDTNUOZ3290-85-06 11:20:00 Test Item Value Reference Range Interpretation Comments CO2 (test code = CO2) 24 24-32 [facility] ShorelineMwtlcsmRHGCXLGRA9292-03-59 11:20:00 Test Item Value Reference Range Interpretation Comments AGAP (test code = AGAP) 13.8 10.0-20.0 [facility]lineArhkqrzURIAQTLDM3312-81-77 11:20:00 Test Item Value Reference Range Interpretation Comments Calcium Lvl (test code = Calcium Lvl) 9.7 8.5-10.5 [facility] ShorelineIzhzbclNHRPYPOBF0771-45-83 11:20:00 Test Item Value Reference Range Interpretation Comments B/C Ratio (test code = B/C Ratio) 14 1 6-25 [facility]lineGvzexrzSDODDBWPN2608-85-83 11:20:00 Test Item Value Reference Range Interpretation Comments Total Protein (test code = Total 5.9 6.4-8.4 Protein) [facility] ShorelineZxyjrojXHMHFATRU6406-00-69 11:20:00 Test Item Value Reference Range Interpretation Comments Albumin Lvl (test code = Albumin Lvl) 2.9 3.5-5.0 [facility]lineNspyzrhZQWMDFBGC5730-07-97 11:20:00 Test Item Value Reference Range Interpretation Comments Globulin (test code = Globulin) 3.0 2.7-4.2 [facility]lineMnfeyydXQXPDYMIU3708-42-37 11:20:00 Test Item Value Reference Range Interpretation Comments A/G Ratio (test code = A/G Ratio) 1.0 1 0.7-1.6 [facility] ShorelineKnpltygFKFJSVZOR0417-59-19 11:20:00 Test Item Value Reference Range Interpretation Comments ALT (test code = ALT) 36 See_Comment [Auto mated message] The system which ge nerated this result transmit suze reference range : <=65. The reference range was not used to interpr et this result as anselmo l/abnormal. [facility] CenterNhfycfkHBCUPOLKH0323-27-94 11:20:00 Test Item Value Reference Range Interpretation Comments AST (test code = AST) 23 See_Comment [Auto mated message] The system which ge nerated this result transmit suze reference range : <=37. The reference range was not used to interpr et this result as anselmo l/abnormal. [facility] CenterGnwufocATETZSEZW5949-77-05 11:20:00 Test Item Value Reference Range Interpretation Comments Alk Phos (test code = Alk Phos) 77 39-136 [facility] CenterOhufndkVUHYSUSOU4229-43-28 11:20:00 Test Item Value Reference Range Interpretation Comments Bili Total (test code = Bili Total) 0.2 0.2-1.3 [facility] CenterHohmpkuINPKRTWMF8515-18-90 11:20:00 Test Item Value Reference Range Interpretation Comments eGFR (test code = eGFR) 117 [facility] CenterUkdrxugZAIAQZELBV1052-60-40 11:20:00 Test Item Value Reference Range Interpretation Comments WBC (test code = WBC) 7.7 3.7-10.4 [facility] CenterUyloxgeFAHPBKYMWR3512-40-61 11:20:00 Test Item Value Reference Range Interpretation Comments RBC (test code = RBC) 4.42 4.70-6.10 [facility] CenterPzzjxbgIHOMTMPZHV0875-42-99 11:20:00 Test Item Value Reference Range Interpretation Comments Hgb (test code = Hgb) 13.7 14.0-18.0 [facility] CenterLoisynyKRMXDMQCVR9683-11-09 11:20:00 Test Item Value Reference Range Interpretation Comments Hct (test code = Hct) 40.0 42.0-54.0 [facility] CenterPbmwareLLMLVEFHYW7472-27-23 11:20:00 Test Item Value Reference Range Interpretation Comments MCV (test code = MCV) 90.7 80.0-94.0 [facility] CenterLkwhfoxNCXGONTCKR4340-56-05 11:20:00 Test Item Value Reference Range Interpretation Comments MCH (test code = MCH) 31.0 pg 27.0-31.0 [facility] CenterGxqtstuFQFCYLFOFB5471-76-89 11:20:00 Test Item Value Reference Range Interpretation Comments MCHC (test code = MCHC) 34.2 32.0-36.0 [place] 505542-12-11 11:20:00 Test Item Value Reference Range Interpretation Comments RDW (test code = RDW) 12.7 11.5-14.5 [place] 505542-12-11 11:20:00 Test Item Value Reference Range Interpretation Comments Platelet (test code = Platelet) 213 133-450 [place] 505542-12-11 11:20:00 Test Item Value Reference Range Interpretation Comments MPV (test code = MPV) 9.5 7.4-10.4 [place] 505542-12-11 11:20:00 Test Item Value Reference Range Interpretation Comments Segs (test code = Segs) 49.3 45.0-75.0 [place] 505542-12-11 11:20:00 Test Item Value Reference Range Interpretation Comments Lymphocytes (test code = Lymphocytes) 38.0 20.0-40.0 [place] 505542-12-11 11:20:00 Test Item Value Reference Range Interpretation Comments Monocytes (test code = Monocytes) 7.1 2.0-12.0 [facility] CenterDxgegsaBJDHEFJHSB6378-35-50 11:20:00 Test Item Value Reference Range Interpretation Comments Eosinophils (test code = 4.9 See_Comment [A utomated message] The Eosinophils) system which ge nerated this result tra nsmitted reference range : <=4.0. The reference r prei was not used to int erpret this result as normal/abnormal . [facility] CenterLkaqnweOUWZPROEKC5191-83-63 11:20:00 Test Item Value Reference Range Interpretation Comments Basophils (test code = 0.7 See_Comment [Aut omated message] The Basophils) system which ge nerated this result tra nsmitted reference range : <=1.0. The reference r peri was not used to int erpret this result as normal/abnormal . [place] 505542-12-11 11:20:00 Test Item Value Reference Range Interpretation Comments Neutrophils # (test code = Neutrophils 3.8 1.5-8.1 #) [place] 505542-12-11 11:20:00 Test Item Value Reference Range Interpretation Comments Lymphocytes # (test code = Lymphocytes 2.9 1.0-5.5 #) [facility] CenterRwidnziKPRTNAQAYY0012-41-11 11:20:00 Test Item Value Reference Range Interpretation Comments Monocytes # (test code 0.5 See_Comment [Aut omated message] The = Monocytes #) system which generated this result tra nsmitted reference range : <=0.8. The reference r peri was not used to int erpret this result as normal/abnormal . [facility] CenterFvbjxckPYQWGTRPCP8011-12-40 11:20:00 Test Item Value Reference Range Interpretation Comments Eosinophils # (test code 0.4 See_Comment [A utomated message] The = Eosinophils #) system whic h generated this result tra nsmitted reference range : <=0.5. The reference r peri was not used to int erpret this result as normal/abnormal . [id number] 11:20:00 Test Item Value Reference Range Interpretation Comments Basophils # (test code 0.1 See_Comment [Aut omated message] The = Basophils #) system which generated this result tra nsmitted reference range : <=0.2. The reference r peri was not used to int erpret this result as normal/abnormal . [facility] [id number] 11:20:00 Test Item Value Reference Range Interpretation Comments Total CK (test code = Total CK) 142 12-191 [facility]2022-12-10 11:20:00 Test Item Value Reference Range Interpretation Comments Glucose Lvl (test code = Glucose Lvl) 130 70-99 [facility] [id number] 11:20:00 Test Item Value Reference Range Interpretation Comments BUN (test code = BUN) 10 7-22 [facility] [id number] 11:20:00 Test Item Value Reference Range Interpretation Comments Creatinine Lvl (test code = Creatinine 0.67 0.50-1.40 Lvl) [facility] [id number] 11:20:00 Test Item Value Reference Range Interpretation Comments Sodium Lvl (test code = Sodium Lvl) 143 135-145 [facility] [id number] 11:20:00 Test Item Value Reference Range Interpretation Comments Potassium Lvl (test code = Potassium 3.8 3.5-5.1 Lvl) [facility]2022-12-10 11:20:00 Test Item Value Reference Range Interpretation Comments Chloride Lvl (test code = Chloride Lvl) 112 95-109 [facility] [id number] 11:20:00 Test Item Value Reference Range Interpretation Comments CO2 (test code = CO2) 23 24-32 [facility] [id number] 11:20:00 Test Item Value Reference Range Interpretation Comments Calcium Lvl (test code = Calcium Lvl) 8.3 8.5-10.5 [facility] [id number] 11:20:00 Test Item Value Reference Range Interpretation Comments Total Protein (test code = Total 5.6 6.4-8.4 Protein) [facility] [id number] 11:20:00 Test Item Value Reference Range Interpretation Comments Albumin Lvl (test code = Albumin Lvl) 2.8 3.5-5.0 [facility] [id number] 11:20:00 Test Item Value Reference Range Interpretation Comments ALT (test code = ALT) 36 See_Comment [Auto mated message] The system which ge nerated this result transmit suze reference range : <=65. The reference range was not used to interpr et this result as anselmo l/abnormal. [facility] [employer] [id number] 11:20:00 Test Item Value Reference Range Interpretation Comments AST (test code = AST) 24 See_Comment [Auto mated message] The system which ge nerated this result transmit suze reference range : <=37. The reference range was not used to interpr et this result as anselmo l/abnormal. [facility] [employer] [id number] 11:20:00 Test Item Value Reference Range Interpretation Comments Alk Phos (test code = Alk Phos) 88 39-136 [facility] [id number] 11:20:00 Test Item Value Reference Range Interpretation Comments Bili Total (test code = Bili Total) 0.1 0.2-1.3 [facility] [employer] [id number] 11:20:00 Test Item Value Reference Range Interpretation Comments AGAP (test code = AGAP) 11.8 10.0-20.0 [facility] [employer] [id number] 11:20:00 Test Item Value Reference Range Interpretation Comments B/C Ratio (test code = B/C Ratio) 15 1 6-25 [place] [address]-12-10 11:20:00 Test Item Value Reference Range Interpretation Comments Globulin (test code = Globulin) 2.8 2.7-4.2 [place] [address]-12-10 11:20:00 Test Item Value Reference Range Interpretation Comments A/G Ratio (test code = A/G Ratio) 1.0 1 0.7-1.6 [place] [address]-12-10 11:20:00 Test Item Value Reference Range Interpretation Comments eGFR (test code = eGFR) 118 [place] [address]-12-10 11:20:00 Test Item Value Reference Range Interpretation Comments Segs (test code = Segs) 47.6 45.0-75.0 [place] [address]-12-10 11:20:00 Test Item Value Reference Range Interpretation Comments Lymphocytes (test code = Lymphocytes) 39.9 20.0-40.0 [place] [address]-12-10 11:20:00 Test Item Value Reference Range Interpretation Comments Monocytes (test code = Monocytes) 6.5 2.0-12.0 [place] [address]-12-10 11:20:00 Test Item Value Reference Range Interpretation Comments Eosinophils (test code = 5.1 See_Comment [A utomated message] The Eosinophils) system which ge nerated this result tra nsmitted reference range : <=4.0. The reference r peri was not used to int erpret this result as normal/abnormal . [place] 505542-12-10 11:20:00 Test Item Value Reference Range Interpretation Comments Basophils (test code = 0.9 See_Comment [Aut omated message] The Basophils) system which ge nerated this result tra nsmitted reference range : <=1.0. The reference r peri was not used to int erpret this result as normal/abnormal . [place] [address]-12-10 11:20:00 Test Item Value Reference Range Interpretation Comments Neutrophils # (test code = Neutrophils 3.3 1.5-8.1 #) [place] 505542-12-10 11:20:00 Test Item Value Reference Range Interpretation Comments Lymphocytes # (test code = Lymphocytes 2.8 1.0-5.5 #) [address]12-10 11:20:00 Test Item Value Reference Range Interpretation Comments Monocytes # (test code 0.5 See_Comment [Aut omated message] The = Monocytes #) system which generated this result tra nsmitted reference range : <=0.8. The reference r peri was not used to int erpret this result as normal/abnormal . [facility]QqxlvqyQLFCPZUCED9529-87-87 11:20:00 Test Item Value Reference Range Interpretation Comments Eosinophils # (test code 0.4 See_Comment [A utomated message] The = Eosinophils #) system whic h generated this result tra nsmitted reference range : <=0.5. The reference r peri was not used to int erpret this result as normal/abnormal . [facility] CenterMexblwsHGUANKCWIB0572-66-48 11:20:00 Test Item Value Reference Range Interpretation Comments Basophils # (test code 0.1 See_Comment [Aut omated message] The = Basophils #) system which generated this result tra nsmitted reference range : <=0.2. The reference r peri was not used to int erpret this result as normal/abnormal . [facility] CenterBsuvzccNFBBXUWZIU1770-45-12 11:20:00 Test Item Value Reference Range Interpretation Comments WBC (test code = WBC) 6.9 3.7-10.4 [place] 505542-12-10 11:20:00 Test Item Value Reference Range Interpretation Comments RBC (test code = RBC) 4.38 4.70-6.10 [place] 505542-12-10 11:20:00 Test Item Value Reference Range Interpretation Comments Hgb (test code = Hgb) 13.3 14.0-18.0 [place] [address]-12-10 11:20:00 Test Item Value Reference Range Interpretation Comments Hct (test code = Hct) 39.8 42.0-54.0 [place] [address]-12-10 11:20:00 Test Item Value Reference Range Interpretation Comments MCV (test code = MCV) 90.7 80.0-94.0 [place] [address]-12-10 11:20:00 Test Item Value Reference Range Interpretation Comments MCH (test code = MCH) 30.4 pg 27.0-31.0 [place] 505542-12-10 11:20:00 Test Item Value Reference Range Interpretation Comments MCHC (test code = MCHC) 33.6 32.0-36.0 [facility]698[facility] 11:20:00 Test Item Value Reference Range Interpretation Comments RDW (test code = RDW) 12.7 11.5-14.5 [facility] HospitalKxoexfcFQNWQDCSDW7562-91-07 11:20:00 Test Item Value Reference Range Interpretation Comments Platelet (test code = Platelet) 188 133-450 [facility]EgfzlygZUWMQCUJMV0513-96-25 11:20:00 Test Item Value Reference Range Interpretation Comments MPV (test code = MPV) 9.9 7.4-10.4 [facility] [id number] 11:20:00 Test Item Value Reference Range Interpretation Comments Total CK (test code = Total CK) 142 12-191 [facility]2022-12-10 11:20:00 Test Item Value Reference Range Interpretation Comments Glucose Lvl (test code = Glucose Lvl) 130 70-99 [facility]2022-12-10 11:20:00 Test Item Value Reference Range Interpretation Comments BUN (test code = BUN) 10 7-22 [facility]2022-12-10 11:20:00 Test Item Value Reference Range Interpretation Comments Creatinine Lvl (test code = Creatinine 0.67 0.50-1.40 Lvl) [facility] [id number] 11:20:00 Test Item Value Reference Range Interpretation Comments Sodium Lvl (test code = Sodium Lvl) 143 135-145 [facility]2022-12-10 11:20:00 Test Item Value Reference Range Interpretation Comments Potassium Lvl (test code = Potassium 3.8 3.5-5.1 Lvl) [facility]2022-12-10 11:20:00 Test Item Value Reference Range Interpretation Comments Chloride Lvl (test code = Chloride Lvl) 112 95-109 [facility]2022-12-10 11:20:00 Test Item Value Reference Range Interpretation Comments CO2 (test code = CO2) 23 24-32 [facility] [id number] 11:20:00 Test Item Value Reference Range Interpretation Comments Calcium Lvl (test code = Calcium Lvl) 8.3 8.5-10.5 [place] 493092-12-10 11:20:00 Test Item Value Reference Range Interpretation Comments Total Protein (test code = Total 5.6 6.4-8.4 Protein) [place] 493092-12-10 11:20:00 Test Item Value Reference Range Interpretation Comments Albumin Lvl (test code = Albumin Lvl) 2.8 3.5-5.0 [facility] [id number] 11:20:00 Test Item Value Reference Range Interpretation Comments ALT (test code = ALT) 36 See_Comment [Auto mated message] The system which ge nerated this result transmit suze reference range : <=65. The reference range was not used to interpr et this result as anselmo l/abnormal. [facility] [id number] 11:20:00 Test Item Value Reference Range Interpretation Comments AST (test code = AST) 24 See_Comment [Auto mated message] The system which ge nerated this result transmit suze reference range : <=37. The reference range was not used to interpr et this result as anselmo l/abnormal. [facility] [id number] 11:20:00 Test Item Value Reference Range Interpretation Comments Alk Phos (test code = Alk Phos) 88 39-136 [facility] [employer] [id number] 11:20:00 Test Item Value Reference Range Interpretation Comments Bili Total (test code = Bili Total) 0.1 0.2-1.3 [facility] [id number] 11:20:00 Test Item Value Reference Range Interpretation Comments AGAP (test code = AGAP) 11.8 10.0-20.0 [facility] [employer] [id number] 11:20:00 Test Item Value Reference Range Interpretation Comments B/C Ratio (test code = B/C Ratio) 15 1 6-25 [facility] [id number] 11:20:00 Test Item Value Reference Range Interpretation Comments Globulin (test code = Globulin) 2.8 2.7-4.2 [facility] [id number] 11:20:00 Test Item Value Reference Range Interpretation Comments A/G Ratio (test code = A/G Ratio) 1.0 1 0.7-1.6 [facility] [id number] 11:20:00 Test Item Value Reference Range Interpretation Comments eGFR (test code = eGFR) 118 [place] 505542-12-10 11:20:00 Test Item Value Reference Range Interpretation Comments Segs (test code = Segs) 47.6 45.0-75.0 [place] [address]-12-10 11:20:00 Test Item Value Reference Range Interpretation Comments Lymphocytes (test code = Lymphocytes) 39.9 20.0-40.0 [place] [address]-12-10 11:20:00 Test Item Value Reference Range Interpretation Comments Monocytes (test code = Monocytes) 6.5 2.0-12.0 [place] [address]-12-10 11:20:00 Test Item Value Reference Range Interpretation Comments Eosinophils (test code = 5.1 See_Comment [A utomated message] The Eosinophils) system which ge nerated this result tra nsmitted reference range : <=4.0. The reference r peri was not used to int erpret this result as normal/abnormal . [place] [address]-12-10 11:20:00 Test Item Value Reference Range Interpretation Comments Basophils (test code = 0.9 See_Comment [Aut omated message] The Basophils) system which ge nerated this result tra nsmitted reference range : <=1.0. The reference r peri was not used to int erpret this result as normal/abnormal . [place] [address]-12-10 11:20:00 Test Item Value Reference Range Interpretation Comments Neutrophils # (test code = Neutrophils 3.3 1.5-8.1 #) [place] [address]-12-10 11:20:00 Test Item Value Reference Range Interpretation Comments Lymphocytes # (test code = Lymphocytes 2.8 1.0-5.5 #) [place] [address]-12-10 11:20:00 Test Item Value Reference Range Interpretation Comments Monocytes # (test code 0.5 See_Comment [Aut omated message] The = Monocytes #) system which generated this result tra nsmitted reference range : <=0.8. The reference r peri was not used to int erpret this result as normal/abnormal . [place] [address]-12-10 11:20:00 Test Item Value Reference Range Interpretation Comments Eosinophils # (test code 0.4 See_Comment [A utomated message] The = Eosinophils #) system whic h generated this result tra nsmitted reference range : <=0.5. The reference r peri was not used to int erpret this result as normal/abnormal . [facility] CenterFcgapirFRPBMPCNIB1387-66-12 11:20:00 Test Item Value Reference Range Interpretation Comments Basophils # (test code 0.1 See_Comment [Aut omated message] The = Basophils #) system which generated this result tra nsmitted reference range : <=0.2. The reference r peri was not used to int erpret this result as normal/abnormal . [facility] CenterFsxrlhhSUEERIKLNN4114-07-16 11:20:00 Test Item Value Reference Range Interpretation Comments WBC (test code = WBC) 6.9 3.7-10.4 [facility] CenterFplegpbCTCZAEFVDR9487-01-71 11:20:00 Test Item Value Reference Range Interpretation Comments RBC (test code = RBC) 4.38 4.70-6.10 [facility] CenterKriaufgACGJJMXRNY4276-09-09 11:20:00 Test Item Value Reference Range Interpretation Comments Hgb (test code = Hgb) 13.3 14.0-18.0 [facility] CenterWvotkfzOCPIFQOFSD4913-00-05 11:20:00 Test Item Value Reference Range Interpretation Comments Hct (test code = Hct) 39.8 42.0-54.0 [facility] CenterFgywtmoPMVBWMHYVO6138-90-29 11:20:00 Test Item Value Reference Range Interpretation Comments MCV (test code = MCV) 90.7 80.0-94.0 [facility] CenterMfmbtkzDZBKDXALVM8376-34-52 11:20:00 Test Item Value Reference Range Interpretation Comments MCH (test code = MCH) 30.4 pg 27.0-31.0 [place] 505542-12-10 11:20:00 Test Item Value Reference Range Interpretation Comments MCHC (test code = MCHC) 33.6 32.0-36.0 [facility] CenterKlhpvajBYBYANOWUR9521-02-29 11:20:00 Test Item Value Reference Range Interpretation Comments RDW (test code = RDW) 12.7 11.5-14.5 [facility] CenterRyuzrnwRXXCOLKALM8762-76-10 11:20:00 Test Item Value Reference Range Interpretation Comments Platelet (test code = Platelet) 188 133-450 [facility] CenterGngifhuZMKIAXYGGY1973-24-17 11:20:00 Test Item Value Reference Range Interpretation Comments MPV (test code = MPV) 9.9 7.4-10.4 [facility] [id number] 11:20:00 Test Item Value Reference Range Interpretation Comments Total CK (test code = Total CK) 142 12-191 [facility]2022-12-10 11:20:00 Test Item Value Reference Range Interpretation Comments Glucose Lvl (test code = Glucose Lvl) 130 70-99 [facility]2022-12-10 11:20:00 Test Item Value Reference Range Interpretation Comments BUN (test code = BUN) 10 7-22 [facility]2022-12-10 11:20:00 Test Item Value Reference Range Interpretation Comments Creatinine Lvl (test code = Creatinine 0.67 0.50-1.40 Lvl) [facility]2022-12-10 11:20:00 Test Item Value Reference Range Interpretation Comments Sodium Lvl (test code = Sodium Lvl) 143 135-145 [facility]2022-12-10 11:20:00 Test Item Value Reference Range Interpretation Comments Potassium Lvl (test code = Potassium 3.8 3.5-5.1 Lvl) [facility]2022-12-10 11:20:00 Test Item Value Reference Range Interpretation Comments Chloride Lvl (test code = Chloride Lvl) 112 95-109 [facility]2022-12-10 11:20:00 Test Item Value Reference Range Interpretation Comments CO2 (test code = CO2) 23 24-32 [facility]2022-12-10 11:20:00 Test Item Value Reference Range Interpretation Comments Calcium Lvl (test code = Calcium Lvl) 8.3 8.5-10.5 [facility]2022-12-10 11:20:00 Test Item Value Reference Range Interpretation Comments Total Protein (test code = Total 5.6 6.4-8.4 Protein) [facility]2022-12-10 11:20:00 Test Item Value Reference Range Interpretation Comments Albumin Lvl (test code = Albumin Lvl) 2.8 3.5-5.0 [facility]2022-12-10 11:20:00 Test Item Value Reference Range Interpretation Comments ALT (test code = ALT) 36 See_Comment [Auto mated message] The system which ge nerated this result transmit suze reference range : <=65. The reference range was not used to interpr et this result as anselmo l/abnormal. [facility] [employer] [id number] 11:20:00 Test Item Value Reference Range Interpretation Comments AST (test code = AST) 24 See_Comment [Auto mated message] The system which ge nerated this result transmit suze reference range : <=37. The reference range was not used to interpr et this result as anselmo l/abnormal. [facility] [id number] 11:20:00 Test Item Value Reference Range Interpretation Comments Alk Phos (test code = Alk Phos) 88 39-136 [facility] [id number] 11:20:00 Test Item Value Reference Range Interpretation Comments Bili Total (test code = Bili Total) 0.1 0.2-1.3 [facility] [id number] 11:20:00 Test Item Value Reference Range Interpretation Comments AGAP (test code = AGAP) 11.8 10.0-20.0 [facility] [id number] 11:20:00 Test Item Value Reference Range Interpretation Comments B/C Ratio (test code = B/C Ratio) 15 1 6-25 [facility] [id number] 11:20:00 Test Item Value Reference Range Interpretation Comments Globulin (test code = Globulin) 2.8 2.7-4.2 [facility] [id number] 11:20:00 Test Item Value Reference Range Interpretation Comments A/G Ratio (test code = A/G Ratio) 1.0 1 0.7-1.6 [facility] [id number] 11:20:00 Test Item Value Reference Range Interpretation Comments eGFR (test code = eGFR) 118 [facility] CenterObticnbXNMMGPOMYH6831-63-50 11:20:00 Test Item Value Reference Range Interpretation Comments Segs (test code = Segs) 47.6 45.0-75.0 [facility] CenterRkkfulkIVKZVQIQAX0605-85-15 11:20:00 Test Item Value Reference Range Interpretation Comments Lymphocytes (test code = Lymphocytes) 39.9 20.0-40.0 [facility] CenterFprfmceEMUWDUGIRU6381-82-47 11:20:00 Test Item Value Reference Range Interpretation Comments Monocytes (test code = Monocytes) 6.5 2.0-12.0 [place] [address]-12-10 11:20:00 Test Item Value Reference Range Interpretation Comments Eosinophils (test code = 5.1 See_Comment [A utomated message] The Eosinophils) system which ge nerated this result tra nsmitted reference range : <=4.0. The reference r peri was not used to int erpret this result as normal/abnormal . [place] [address]-12-10 11:20:00 Test Item Value Reference Range Interpretation Comments Basophils (test code = 0.9 See_Comment [Aut omated message] The Basophils) system which ge nerated this result tra nsmitted reference range : <=1.0. The reference r peri was not used to int erpret this result as normal/abnormal . [place] [address]-12-10 11:20:00 Test Item Value Reference Range Interpretation Comments Neutrophils # (test code = Neutrophils 3.3 1.5-8.1 #) [address]12-10 11:20:00 Test Item Value Reference Range Interpretation Comments Lymphocytes # (test code = Lymphocytes 2.8 1.0-5.5 #) [place] [address]-12-10 11:20:00 Test Item Value Reference Range Interpretation Comments Monocytes # (test code 0.5 See_Comment [Aut omated message] The = Monocytes #) system which generated this result tra nsmitted reference range : <=0.8. The reference r peri was not used to int erpret this result as normal/abnormal . [place] [address]-12-10 11:20:00 Test Item Value Reference Range Interpretation Comments Eosinophils # (test code 0.4 See_Comment [A utomated message] The = Eosinophils #) system wh h generated this result tra nsmitted reference range : <=0.5. The reference r peri was not used to int erpret this result as normal/abnormal . [place] [address]-12-10 11:20:00 Test Item Value Reference Range Interpretation Comments Basophils # (test code 0.1 See_Comment [Aut omated message] The = Basophils #) system which generated this result tra nsmitted reference range : <=0.2. The reference r peri was not used to int erpret this result as normal/abnormal . [facility] CenterQuvwgifJAMPBOZKXK2099-86-71 11:20:00 Test Item Value Reference Range Interpretation Comments WBC (test code = WBC) 6.9 3.7-10.4 [facility] CenterCrtmzyzTYIGNWILRB3374-55-45 11:20:00 Test Item Value Reference Range Interpretation Comments RBC (test code = RBC) 4.38 4.70-6.10 [facility] CenterLqqcofbKSKGDBTYAJ0849-57-72 11:20:00 Test Item Value Reference Range Interpretation Comments Hgb (test code = Hgb) 13.3 14.0-18.0 [facility] CenterBfthlsmACQCSUEQUW8061-59-17 11:20:00 Test Item Value Reference Range Interpretation Comments Hct (test code = Hct) 39.8 42.0-54.0 [facility] CenterOaahqukZFWFHQKUND9501-65-74 11:20:00 Test Item Value Reference Range Interpretation Comments MCV (test code = MCV) 90.7 80.0-94.0 [facility] CenterZxzhvtnCRDSILMLXV1751-33-30 11:20:00 Test Item Value Reference Range Interpretation Comments MCH (test code = MCH) 30.4 pg 27.0-31.0 [facility] CenterSwyqhqwCUMLBUEFCC9336-32-81 11:20:00 Test Item Value Reference Range Interpretation Comments MCHC (test code = MCHC) 33.6 32.0-36.0 [facility] CenterQvmxdoaJGVOPPFFCN0982-70-45 11:20:00 Test Item Value Reference Range Interpretation Comments RDW (test code = RDW) 12.7 11.5-14.5 [facility] CenterLzizsvpECHJERXBHK0202-93-01 11:20:00 Test Item Value Reference Range Interpretation Comments Platelet (test code = Platelet) 188 133-450 [facility] CenterQdiogztNIRUIXBKDO0272-46-42 11:20:00 Test Item Value Reference Range Interpretation Comments MPV (test code = MPV) 9.9 7.4-10.4 [facility] [id number] 11:20:00 Test Item Value Reference Range Interpretation Comments Total CK (test code = Total CK) 142 12-191 [facility] [id number] 11:20:00 Test Item Value Reference Range Interpretation Comments Glucose Lvl (test code = Glucose Lvl) 130 70-99 [place] [address]-12-10 11:20:00 Test Item Value Reference Range Interpretation Comments BUN (test code = BUN) 10 7-[address]12-10 11:20:00 Test Item Value Reference Range Interpretation Comments Creatinine Lvl (test code = Creatinine 0.67 0.50-1.40 Lvl) [address]12-10 11:20:00 Test Item Value Reference Range Interpretation Comments Sodium Lvl (test code = Sodium Lvl) 143 135-145 [place] [address]-12-10 11:20:00 Test Item Value Reference Range Interpretation Comments Potassium Lvl (test code = Potassium 3.8 3.5-5.1 Lvl) [address]12-10 11:20:00 Test Item Value Reference Range Interpretation Comments Chloride Lvl (test code = Chloride Lvl) 112 95-[address]12-10 11:20:00 Test Item Value Reference Range Interpretation Comments CO2 (test code = CO2) 23 24-32 [address]12-10 11:20:00 Test Item Value Reference Range Interpretation Comments Calcium Lvl (test code = Calcium Lvl) 8.3 8.5-10.[address]12-10 11:20:00 Test Item Value Reference Range Interpretation Comments Total Protein (test code = Total 5.6 6.4-8.4 Protein) [address]12-10 11:20:00 Test Item Value Reference Range Interpretation Comments Albumin Lvl (test code = Albumin Lvl) 2.8 3.5-5.[address]12-10 11:20:00 Test Item Value Reference Range Interpretation Comments ALT (test code = ALT) 36 See_Comment [Auto mated message] The system which ge nerated this result transmit suze reference range : <=65. The reference range was not used to interpr et this result as anselmo l/abnormal. [address]12-10 11:20:00 Test Item Value Reference Range Interpretation Comments AST (test code = AST) 24 See_Comment [Auto mated message] The system which ge nerated this result transmit suze reference range : <=37. The reference range was not used to interpr et this result as anselmo l/abnormal. [facility]2022-12-10 11:20:00 Test Item Value Reference Range Interpretation Comments Alk Phos (test code = Alk Phos) 88 39-136 [facility]2022-12-10 11:20:00 Test Item Value Reference Range Interpretation Comments Bili Total (test code = Bili Total) 0.1 0.2-1.3 [facility]2022-12-10 11:20:00 Test Item Value Reference Range Interpretation Comments AGAP (test code = AGAP) 11.8 10.0-20.0 [facility]2022-12-10 11:20:00 Test Item Value Reference Range Interpretation Comments B/C Ratio (test code = B/C Ratio) 15 1 6-25 [place] [address]-12-10 11:20:00 Test Item Value Reference Range Interpretation Comments Globulin (test code = Globulin) 2.8 2.7-4.2 [facility]2022-12-10 11:20:00 Test Item Value Reference Range Interpretation Comments A/G Ratio (test code = A/G Ratio) 1.0 1 0.7-1.6 [place] [address]-12-10 11:20:00 Test Item Value Reference Range Interpretation Comments eGFR (test code = eGFR) 118 [facility]GqbdusqKUHKWDAMWP4314-[facility] 11:20:00 Test Item Value Reference Range Interpretation Comments Segs (test code = Segs) 47.6 45.0-75.0 [facility] CenterOkewfvuPFGDAOAHFK1630-16-08 11:20:00 Test Item Value Reference Range Interpretation Comments Lymphocytes (test code = Lymphocytes) 39.9 20.0-40.0 [place]42-12-10 11:20:00 Test Item Value Reference Range Interpretation Comments Monocytes (test code = Monocytes) 6.5 2.0-12.0 [place] 505542-12-10 11:20:00 Test Item Value Reference Range Interpretation Comments Eosinophils (test code = 5.1 See_Comment [A utomated message] The Eosinophils) system which ge nerated this result tra nsmitted reference range : <=4.0. The reference r peri was not used to int erpret this result as normal/abnormal . [place]05542-12-10 11:20:00 Test Item Value Reference Range Interpretation Comments Basophils (test code = 0.9 See_Comment [Aut omated message] The Basophils) system which ge nerated this result tra nsmitted reference range : <=1.0. The reference r peri was not used to int erpret this result as normal/abnormal . [place]05542-12-10 11:20:00 Test Item Value Reference Range Interpretation Comments Neutrophils # (test code = Neutrophils 3.3 1.5-8.1 #) [place] [address]-12-10 11:20:00 Test Item Value Reference Range Interpretation Comments Lymphocytes # (test code = Lymphocytes 2.8 1.0-5.5 #) [place] [address]-12-10 11:20:00 Test Item Value Reference Range Interpretation Comments Monocytes # (test code 0.5 See_Comment [Aut omated message] The = Monocytes #) system which generated this result tra nsmitted reference range : <=0.8. The reference r peri was not used to int erpret this result as normal/abnormal . [facility]PcbpudeGZSTUIMBOZ7483-02-63 11:20:00 Test Item Value Reference Range Interpretation Comments Eosinophils # (test code 0.4 See_Comment [A utomated message] The = Eosinophils #) system whic h generated this result tra nsmitted reference range : <=0.5. The reference r peri was not used to int erpret this result as normal/abnormal . [facility] CenterLepjyyjXXEQAJDFIX9088-33-59 11:20:00 Test Item Value Reference Range Interpretation Comments Basophils # (test code 0.1 See_Comment [Aut omated message] The = Basophils #) system which generated this result tra nsmitted reference range : <=0.2. The reference r peri was not used to int erpret this result as normal/abnormal . [place] 505542-12-10 11:20:00 Test Item Value Reference Range Interpretation Comments WBC (test code = WBC) 6.9 3.7-10.4 [place] [address]-12-10 11:20:00 Test Item Value Reference Range Interpretation Comments RBC (test code = RBC) 4.38 4.70-6.10 [place] [address]-12-10 11:20:00 Test Item Value Reference Range Interpretation Comments Hgb (test code = Hgb) 13.3 14.0-18.0 [facility]RkgxqhwXIFITWTQMQ1285-64-78 11:20:00 Test Item Value Reference Range Interpretation Comments Hct (test code = Hct) 39.8 42.0-54.0 [facility] CenterHudmjjaCNOHCRUBXB2124-26-37 11:20:00 Test Item Value Reference Range Interpretation Comments MCV (test code = MCV) 90.7 80.0-94.0 [facility] CenterTsbnwadQGXSNWLECE1747-14-09 11:20:00 Test Item Value Reference Range Interpretation Comments MCH (test code = MCH) 30.4 pg 27.0-31.0 [facility] CenterSwigwfoKSOXMIFUIO4934-53-46 11:20:00 Test Item Value Reference Range Interpretation Comments MCHC (test code = MCHC) 33.6 32.0-36.0 [facility]xBWTQAIPBHD4108-03-33 11:20:00 Test Item Value Reference Range Interpretation Comments RDW (test code = RDW) 12.7 11.5-14.5 [facility] CenterXnwekebCNPTYOKJZE0222-69-87 11:20:00 Test Item Value Reference Range Interpretation Comments Platelet (test code = Platelet) 188 133-450 [facility] CenterBcnnxywSLHNCHPSOA9171-39-42 11:20:00 Test Item Value Reference Range Interpretation Comments MPV (test code = MPV) 9.9 7.4-10.4 [facility] CenterCARDIAC EWKHCLL4100-26-36 11:20:00 Test Item Value Reference Range Interpretation Comments Total CK (test code = Total CK) 142 12-191 [facility] CenterCHEM WABIU2538-52-85 11:20:00 Test Item Value Reference Range Interpretation Comments Glucose Lvl (test code = Glucose Lvl) 130 70-99 [facility] CenterClew JYQXZ6433-75-95 11:20:00 Test Item Value Reference Range Interpretation Comments BUN (test code = BUN) 10 7-22 [facility] [id number] 11:20:00 Test Item Value Reference Range Interpretation Comments Creatinine Lvl (test code = Creatinine 0.67 0.50-1.40 Lvl) [facility] BNSPM9836-98-44 11:20:00 Test Item Value Reference Range Interpretation Comments Sodium Lvl (test code = Sodium Lvl) 143 135-145 [place] [address]-12-10 11:20:00 Test Item Value Reference Range Interpretation Comments Potassium Lvl (test code = Potassium 3.8 3.5-5.1 Lvl) [place] [address]-12-10 11:20:00 Test Item Value Reference Range Interpretation Comments Chloride Lvl (test code = Chloride Lvl) 112 95-109 [place] [address]-12-10 11:20:00 Test Item Value Reference Range Interpretation Comments CO2 (test code = CO2) 23 24-32 [address]12-10 11:20:00 Test Item Value Reference Range Interpretation Comments Calcium Lvl (test code = Calcium Lvl) 8.3 8.5-10.5 [address]12-10 11:20:00 Test Item Value Reference Range Interpretation Comments Total Protein (test code = Total 5.6 6.4-8.4 Protein) [address]12-10 11:20:00 Test Item Value Reference Range Interpretation Comments Albumin Lvl (test code = Albumin Lvl) 2.8 3.5-5.0 [place] [address]-12-10 11:20:00 Test Item Value Reference Range Interpretation Comments ALT (test code = ALT) 36 See_Comment [Auto mated message] The system which ge nerated this result transmit suze reference range : <=65. The reference range was not used to interpr et this result as anselmo l/abnormal. [place] [address]-12-10 11:20:00 Test Item Value Reference Range Interpretation Comments AST (test code = AST) 24 See_Comment [Auto mated message] The system which ge nerated this result transmit suze reference range : <=37. The reference range was not used to interpr et this result as anselmo l/abnormal. [place] [address]-12-10 11:20:00 Test Item Value Reference Range Interpretation Comments Alk Phos (test code = Alk Phos) 88 39-136 [address]12-10 11:20:00 Test Item Value Reference Range Interpretation Comments Bili Total (test code = Bili Total) 0.1 0.2-1.3 [address]12-10 11:20:00 Test Item Value Reference Range Interpretation Comments AGAP (test code = AGAP) 11.8 10.0-20.0 [place] [address]-12-10 11:20:00 Test Item Value Reference Range Interpretation Comments B/C Ratio (test code = B/C Ratio) 15 1 6-[address]12-10 11:20:00 Test Item Value Reference Range Interpretation Comments Globulin (test code = Globulin) 2.8 2.7-4.2 [place] [address]-12-10 11:20:00 Test Item Value Reference Range Interpretation Comments A/G Ratio (test code = A/G Ratio) 1.0 1 0.7-1.6 [place] [address]-12-10 11:20:00 Test Item Value Reference Range Interpretation Comments eGFR (test code = eGFR) 118 [place] [address]-12-10 11:20:00 Test Item Value Reference Range Interpretation Comments Segs (test code = Segs) 47.6 45.0-75.0 [place] [address]-12-10 11:20:00 Test Item Value Reference Range Interpretation Comments Lymphocytes (test code = Lymphocytes) 39.9 20.0-40.0 [place] [address]-12-10 11:20:00 Test Item Value Reference Range Interpretation Comments Monocytes (test code = Monocytes) 6.5 2.0-12.0 [place] [address]-12-10 11:20:00 Test Item Value Reference Range Interpretation Comments Eosinophils (test code = 5.1 See_Comment [A utomated message] The Eosinophils) system which ge nerated this result tra nsmitted reference range : <=4.0. The reference r peri was not used to int erpret this result as normal/abnormal . [place] [address]-12-10 11:20:00 Test Item Value Reference Range Interpretation Comments Basophils (test code = 0.9 See_Comment [Aut omated message] The Basophils) system which ge nerated this result tra nsmitted reference range : <=1.0. The reference r peri was not used to int erpret this result as normal/abnormal . [place] [address]-12-10 11:20:00 Test Item Value Reference Range Interpretation Comments Neutrophils # (test code = Neutrophils 3.3 1.5-8.1 #) [facility] CenterXzqhpeaOERFNXIRES7736-44-15 11:20:00 Test Item Value Reference Range Interpretation Comments Lymphocytes # (test code = Lymphocytes 2.8 1.0-5.5 #) [place]42-12-10 11:20:00 Test Item Value Reference Range Interpretation Comments Monocytes # (test code 0.5 See_Comment [Aut omated message] The = Monocytes #) system which generated this result tra nsmitted reference range : <=0.8. The reference r peri was not used to int erpret this result as normal/abnormal . [facility] CenterMhqmlryRFTNNVBCVR7925-31-68 11:20:00 Test Item Value Reference Range Interpretation Comments Eosinophils # (test code 0.4 See_Comment [A utomated message] The = Eosinophils #) system whic h generated this result tra nsmitted reference range : <=0.5. The reference r peri was not used to int erpret this result as normal/abnormal . [facility] CenterTfkwtkdASQBOCBSGA4830-78-33 11:20:00 Test Item Value Reference Range Interpretation Comments Basophils # (test code 0.1 See_Comment [Aut omated message] The = Basophils #) system which generated this result tra nsmitted reference range : <=0.2. The reference r peri was not used to int erpret this result as normal/abnormal . [facility] CenterFursdszTDWAFABNER2513-20-67 11:20:00 Test Item Value Reference Range Interpretation Comments WBC (test code = WBC) 6.9 3.7-10.4 [place] 505542-12-10 11:20:00 Test Item Value Reference Range Interpretation Comments RBC (test code = RBC) 4.38 4.70-6.10 [place] [address]-12-10 11:20:00 Test Item Value Reference Range Interpretation Comments Hgb (test code = Hgb) 13.3 14.0-18.0 [place] [address]-12-10 11:20:00 Test Item Value Reference Range Interpretation Comments Hct (test code = Hct) 39.8 42.0-54.0 [place] [address]-12-10 11:20:00 Test Item Value Reference Range Interpretation Comments MCV (test code = MCV) 90.7 80.0-94.0 [facility] CenterIptfahbMGYULUDSXX2391-86-36 11:20:00 Test Item Value Reference Range Interpretation Comments MCH (test code = MCH) 30.4 pg 27.0-31.0 [facility] CenterUeunysqEHCCVEJUGE1085-21-17 11:20:00 Test Item Value Reference Range Interpretation Comments MCHC (test code = MCHC) 33.6 32.0-36.0 [facility] CenterZckoeyzQGGLFDEZIS5656-34-10 11:20:00 Test Item Value Reference Range Interpretation Comments RDW (test code = RDW) 12.7 11.5-14.5 [facility] HospitalQgoejgnPVPNQGWHFK6212-75-73 11:20:00 Test Item Value Reference Range Interpretation Comments Platelet (test code = Platelet) 188 133-450 [facility] CenterViloolpMGDFJULOWF0675-46-46 11:20:00 Test Item Value Reference Range Interpretation Comments MPV (test code = MPV) 9.9 7.4-10.4 [facility]CARD[facility]AC JKEUBSF6049-97-88 11:20:00 Test Item Value Reference Range Interpretation Comments Total CK (test code = Total CK) 142 12-191 [facility]2022-12-10 11:20:00 Test Item Value Reference Range Interpretation Comments Glucose Lvl (test code = Glucose Lvl) 130 70-99 [facility]2022-12-10 11:20:00 Test Item Value Reference Range Interpretation Comments BUN (test code = BUN) 10 7-22 [facility]2022-12-10 11:20:00 Test Item Value Reference Range Interpretation Comments Creatinine Lvl (test code = Creatinine 0.67 0.50-1.40 Lvl) [facility]2022-12-10 11:20:00 Test Item Value Reference Range Interpretation Comments Sodium Lvl (test code = Sodium Lvl) 143 135-145 [facility]2022-12-10 11:20:00 Test Item Value Reference Range Interpretation Comments Potassium Lvl (test code = Potassium 3.8 3.5-5.1 Lvl) [facility]2022-12-10 11:20:00 Test Item Value Reference Range Interpretation Comments Chloride Lvl (test code = Chloride Lvl) 112 95-109 [facility]2022-12-10 11:20:00 Test Item Value Reference Range Interpretation Comments CO2 (test code = CO2) 23 24-32 [facility] CenterdoughDALE VILLE [address]11YVNLP1134-00-04 11:20:00 Test Item Value Reference Range Interpretation Comments Calcium Lvl (test code = Calcium Lvl) 8.3 8.5-10.5 [facility] CenterdoughDALE [place] [address]QBURY4143-60-21 11:20:00 Test Item Value Reference Range Interpretation Comments Total Protein (test code = Total 5.6 6.4-8.4 Protein) [place] 493092-12-10 11:20:00 Test Item Value Reference Range Interpretation Comments Albumin Lvl (test code = Albumin Lvl) 2.8 3.5-5.0 [facility] CenterHoot.Me [id number] 11:20:00 Test Item Value Reference Range Interpretation Comments ALT (test code = ALT) 36 See_Comment [Auto mated message] The system which ge nerated this result transmit suze reference range : <=65. The reference range was not used to interpr et this result as anselmo l/abnormal. [facility] CenterHoot[facility] [id number] 11:20:00 Test Item Value Reference Range Interpretation Comments AST (test code = AST) 24 See_Comment [Auto mated message] The system which ge nerated this result transmit suze reference range : <=37. The reference range was not used to interpr et this result as anselmo l/abnormal. [facility] CenterH[facility] [id number] 11:20:00 Test Item Value Reference Range Interpretation Comments Alk Phos (test code = Alk Phos) 88 39-136 [facility] RFPFS9840-22-96 11:20:00 Test Item Value Reference Range Interpretation Comments Bili Total (test code = Bili Total) 0.1 0.2-1.3 [facility] CenterH[facility] RCCPL4740-51-25 11:20:00 Test Item Value Reference Range Interpretation Comments AGAP (test code = AGAP) 11.8 10.0-20.0 [facility] INcubes [id number] 11:20:00 Test Item Value Reference Range Interpretation Comments B/C Ratio (test code = B/C Ratio) 15 1 6-25 [facility] CenterHoot[facility] [id number] 11:20:00 Test Item Value Reference Range Interpretation Comments Globulin (test code = Globulin) 2.8 2.7-4.2 [place] 493092-12-10 11:20:00 Test Item Value Reference Range Interpretation Comments A/G Ratio (test code = A/G Ratio) 1.0 1 0.7-1.6 [place] [address]-12-10 11:20:00 Test Item Value Reference Range Interpretation Comments eGFR (test code = eGFR) 118 [place] [address]-12-10 11:20:00 Test Item Value Reference Range Interpretation Comments Segs (test code = Segs) 47.6 45.0-75.0 [place] [address]-12-10 11:20:00 Test Item Value Reference Range Interpretation Comments Lymphocytes (test code = Lymphocytes) 39.9 20.0-40.0 [place] [address]-12-10 11:20:00 Test Item Value Reference Range Interpretation Comments Monocytes (test code = Monocytes) 6.5 2.0-12.0 [place] [address]-12-10 11:20:00 Test Item Value Reference Range Interpretation Comments Eosinophils (test code = 5.1 See_Comment [A utomated message] The Eosinophils) system which ge nerated this result tra nsmitted reference range : <=4.0. The reference r peri was not used to int erpret this result as normal/abnormal . [place] [address]-12-10 11:20:00 Test Item Value Reference Range Interpretation Comments Basophils (test code = 0.9 See_Comment [Aut omated message] The Basophils) system which ge nerated this result tra nsmitted reference range : <=1.0. The reference r peri was not used to int erpret this result as normal/abnormal . [place] 505542-12-10 11:20:00 Test Item Value Reference Range Interpretation Comments Neutrophils # (test code = Neutrophils 3.3 1.5-8.1 #) [place] [address]-12-10 11:20:00 Test Item Value Reference Range Interpretation Comments Lymphocytes # (test code = Lymphocytes 2.8 1.0-5.5 #) [address]12-10 11:20:00 Test Item Value Reference Range Interpretation Comments Monocytes # (test code 0.5 See_Comment [Aut omated message] The = Monocytes #) system which generated this result tra nsmitted reference range : <=0.8. The reference r peri was not used to int erpret this result as normal/abnormal . [facility] CenterZeqlozrAGTMOKMDPE8189-71-47 11:20:00 Test Item Value Reference Range Interpretation Comments Eosinophils # (test code 0.4 See_Comment [A utomated message] The = Eosinophils #) system whic h generated this result tra nsmitted reference range : <=0.5. The reference r peri was not used to int erpret this result as normal/abnormal . [facility] CenterIusxkvpUGGWABINII2736-53-79 11:20:00 Test Item Value Reference Range Interpretation Comments Basophils # (test code 0.1 See_Comment [Aut omated message] The = Basophils #) system which generated this result tra nsmitted reference range : <=0.2. The reference r peri was not used to int erpret this result as normal/abnormal . [facility] CenterEryyghaJHYWIEUKEK8020-33-04 11:20:00 Test Item Value Reference Range Interpretation Comments WBC (test code = WBC) 6.9 3.7-10.4 [facility] CenterEdhgamdIGQXUAFDRI5741-41-05 11:20:00 Test Item Value Reference Range Interpretation Comments RBC (test code = RBC) 4.38 4.70-6.10 [place] 5055[place]-12-10 11:20:00 Test Item Value Reference Range Interpretation Comments Hgb (test code = Hgb) 13.3 14.0-18.0 [place] [address]-12-10 11:20:00 Test Item Value Reference Range Interpretation Comments Hct (test code = Hct) 39.8 42.0-54.0 [place] 505542-12-10 11:20:00 Test Item Value Reference Range Interpretation Comments MCV (test code = MCV) 90.7 80.0-94.0 [place] [address]-12-10 11:20:00 Test Item Value Reference Range Interpretation Comments MCH (test code = MCH) 30.4 pg 27.0-31.0 [place] 5055[place]-12-10 11:20:00 Test Item Value Reference Range Interpretation Comments MCHC (test code = MCHC) 33.6 32.0-36.0 [place] [address]-12-10 11:20:00 Test Item Value Reference Range Interpretation Comments RDW (test code = RDW) 12.7 11.5-14.5 [facility] CenterEuudfkcHMDXUTHTNC9237-46-42 11:20:00 Test Item Value Reference Range Interpretation Comments Platelet (test code = Platelet) 188 133-450 [facility]XxtvbylZDJYPBAFTX5453-61-61 11:20:00 Test Item Value Reference Range Interpretation Comments MPV (test code = MPV) 9.9 7.4-10.4 [facility]CARD[facility]AC [id number] 11:20:00 Test Item Value Reference Range Interpretation Comments Total CK (test code = Total CK) 142 12-191 [facility] [id number] 11:20:00 Test Item Value Reference Range Interpretation Comments Glucose Lvl (test code = Glucose Lvl) 130 70-99 [facility]2022-12-10 11:20:00 Test Item Value Reference Range Interpretation Comments BUN (test code = BUN) 10 7-22 [facility]2022-12-10 11:20:00 Test Item Value Reference Range Interpretation Comments Creatinine Lvl (test code = Creatinine 0.67 0.50-1.40 Lvl) [facility] [id number] 11:20:00 Test Item Value Reference Range Interpretation Comments Sodium Lvl (test code = Sodium Lvl) 143 135-145 [facility] [id number] 11:20:00 Test Item Value Reference Range Interpretation Comments Potassium Lvl (test code = Potassium 3.8 3.5-5.1 Lvl) [facility]2022-12-10 11:20:00 Test Item Value Reference Range Interpretation Comments Chloride Lvl (test code = Chloride Lvl) 112 95-109 [facility] [id number] 11:20:00 Test Item Value Reference Range Interpretation Comments CO2 (test code = CO2) 23 24-32 [facility] [id number] 11:20:00 Test Item Value Reference Range Interpretation Comments Calcium Lvl (test code = Calcium Lvl) 8.3 8.5-10.5 [facility]2022-12-10 11:20:00 Test Item Value Reference Range Interpretation Comments Total Protein (test code = Total 5.6 6.4-8.4 Protein) [facility]2022-12-10 11:20:00 Test Item Value Reference Range Interpretation Comments Albumin Lvl (test code = Albumin Lvl) 2.8 3.5-5.0 [place] 493092-12-10 11:20:00 Test Item Value Reference Range Interpretation Comments ALT (test code = ALT) 36 See_Comment [Auto mated message] The system which ge nerated this result transmit suze reference range : <=65. The reference range was not used to interpr et this result as anselmo l/abnormal. [place] [address]-12-10 11:20:00 Test Item Value Reference Range Interpretation Comments AST (test code = AST) 24 See_Comment [Auto mated message] The system which ge nerated this result transmit suze reference range : <=37. The reference range was not used to interpr et this result as anselmo l/abnormal. [place] [address]-12-10 11:20:00 Test Item Value Reference Range Interpretation Comments Alk Phos (test code = Alk Phos) 88 39-136 [place] 493092-12-10 11:20:00 Test Item Value Reference Range Interpretation Comments Bili Total (test code = Bili Total) 0.1 0.2-1.3 [place] [address]-12-10 11:20:00 Test Item Value Reference Range Interpretation Comments AGAP (test code = AGAP) 11.8 10.0-20.0 [place] [address]-12-10 11:20:00 Test Item Value Reference Range Interpretation Comments B/C Ratio (test code = B/C Ratio) 15 1 6-25 [place] [address]-12-10 11:20:00 Test Item Value Reference Range Interpretation Comments Globulin (test code = Globulin) 2.8 2.7-4.2 [place] [address]-12-10 11:20:00 Test Item Value Reference Range Interpretation Comments A/G Ratio (test code = A/G Ratio) 1.0 1 0.7-1.6 [place] [address]-12-10 11:20:00 Test Item Value Reference Range Interpretation Comments eGFR (test code = eGFR) 118 [facility] CenterLwhycaaYOPAOUHTPJ3177-12-72 11:20:00 Test Item Value Reference Range Interpretation Comments Segs (test code = Segs) 47.6 45.0-75.0 [place] 505542-12-10 11:20:00 Test Item Value Reference Range Interpretation Comments Lymphocytes (test code = Lymphocytes) 39.9 20.0-40.0 [place] 505542-12-10 11:20:00 Test Item Value Reference Range Interpretation Comments Monocytes (test code = Monocytes) 6.5 2.0-12.0 [place] 505542-12-10 11:20:00 Test Item Value Reference Range Interpretation Comments Eosinophils (test code = 5.1 See_Comment [A utomated message] The Eosinophils) system which ge nerated this result tra nsmitted reference range : <=4.0. The reference r peri was not used to int erpret this result as normal/abnormal . [place] 505542-12-10 11:20:00 Test Item Value Reference Range Interpretation Comments Basophils (test code = 0.9 See_Comment [Aut omated message] The Basophils) system which ge nerated this result tra nsmitted reference range : <=1.0. The reference r peri was not used to int erpret this result as normal/abnormal . [facility]totpiaYVEEJXHZUI5924-56-30 11:20:00 Test Item Value Reference Range Interpretation Comments Neutrophils # (test code = Neutrophils 3.3 1.5-8.1 #) [place] 505542-12-10 11:20:00 Test Item Value Reference Range Interpretation Comments Lymphocytes # (test code = Lymphocytes 2.8 1.0-5.5 #) [place] 505542-12-10 11:20:00 Test Item Value Reference Range Interpretation Comments Monocytes # (test code 0.5 See_Comment [Aut omated message] The = Monocytes #) system which generated this result tra nsmitted reference range : <=0.8. The reference r peri was not used to int erpret this result as normal/abnormal . [place] 505542-12-10 11:20:00 Test Item Value Reference Range Interpretation Comments Eosinophils # (test code 0.4 See_Comment [A utomated message] The = Eosinophils #) system whic h generated this result tra nsmitted reference range : <=0.5. The reference r peri was not used to int erpret this result as normal/abnormal . [place] [address]-12-10 11:20:00 Test Item Value Reference Range Interpretation Comments Basophils # (test code 0.1 See_Comment [Aut omated message] The = Basophils #) system which generated this result tra nsmitted reference range : <=0.2. The reference r peri was not used to int erpret this result as normal/abnormal . [facility]VfzgeshSJHRYZVCXU8735-05-55 11:20:00 Test Item Value Reference Range Interpretation Comments WBC (test code = WBC) 6.9 3.7-10.4 [facility] CenterLmigllqGPXLBLAQBU6581-89-44 11:20:00 Test Item Value Reference Range Interpretation Comments RBC (test code = RBC) 4.38 4.70-6.10 [facility] CenterMriwzujOXWKUVTFEK1626-61-02 11:20:00 Test Item Value Reference Range Interpretation Comments Hgb (test code = Hgb) 13.3 14.0-18.0 [facility] CenterWudylvlVVSJLYUOKP2748-28-65 11:20:00 Test Item Value Reference Range Interpretation Comments Hct (test code = Hct) 39.8 42.0-54.0 [facility] CenterHiwjffcPJWNXSWJHZ6126-62-65 11:20:00 Test Item Value Reference Range Interpretation Comments MCV (test code = MCV) 90.7 80.0-94.0 [facility] CenterMftucalPQPZNVYLRC7619-34-85 11:20:00 Test Item Value Reference Range Interpretation Comments MCH (test code = MCH) 30.4 pg 27.0-31.0 [facility] CenterTibulfuICVQHELYES7638-77-81 11:20:00 Test Item Value Reference Range Interpretation Comments MCHC (test code = MCHC) 33.6 32.0-36.0 [facility] CenterCqkxskhIOHVFPMLQV3319-76-35 11:20:00 Test Item Value Reference Range Interpretation Comments RDW (test code = RDW) 12.7 11.5-14.5 [facility] CenterLolmrdkCBPUDEFQXF1196-15-63 11:20:00 Test Item Value Reference Range Interpretation Comments Platelet (test code = Platelet) 188 133-450 [facility] CenterMwaulglHGDMUIHHVK4996-97-51 11:20:00 Test Item Value Reference Range Interpretation Comments MPV (test code = MPV) 9.9 7.4-10.4 [facility] UAHTADD9533-70-51 11:20:00 Test Item Value Reference Range Interpretation Comments Total CK (test code = Total CK) 142 12-191 [facility]2022-12-10 11:20:00 Test Item Value Reference Range Interpretation Comments Glucose Lvl (test code = Glucose Lvl) 130 70-99 [place] 493092-12-10 11:20:00 Test Item Value Reference Range Interpretation Comments BUN (test code = BUN) 10 7-22 [place] 493092-12-10 11:20:00 Test Item Value Reference Range Interpretation Comments Creatinine Lvl (test code = Creatinine 0.67 0.50-1.40 Lvl) [place] 493092-12-10 11:20:00 Test Item Value Reference Range Interpretation Comments Sodium Lvl (test code = Sodium Lvl) 143 135-145 [place] 493092-12-10 11:20:00 Test Item Value Reference Range Interpretation Comments Potassium Lvl (test code = Potassium 3.8 3.5-5.1 Lvl) [place] 493092-12-10 11:20:00 Test Item Value Reference Range Interpretation Comments Chloride Lvl (test code = Chloride Lvl) 112 95-109 [place] 493092-12-10 11:20:00 Test Item Value Reference Range Interpretation Comments CO2 (test code = CO2) 23 24-32 [place] 493092-12-10 11:20:00 Test Item Value Reference Range Interpretation Comments Calcium Lvl (test code = Calcium Lvl) 8.3 8.5-10.5 [place] 493092-12-10 11:20:00 Test Item Value Reference Range Interpretation Comments Total Protein (test code = Total 5.6 6.4-8.4 Protein) [place] [address]-12-10 11:20:00 Test Item Value Reference Range Interpretation Comments Albumin Lvl (test code = Albumin Lvl) 2.8 3.5-5.0 [place] [address]-12-10 11:20:00 Test Item Value Reference Range Interpretation Comments ALT (test code = ALT) 36 See_Comment [Auto mated message] The system which ge nerated this result transmit suze reference range : <=65. The reference range was not used to interpr et this result as anselmo l/abnormal. [place] [address]-12-10 11:20:00 Test Item Value Reference Range Interpretation Comments AST (test code = AST) 24 See_Comment [Auto mated message] The system which ge nerated this result transmit suze reference range : <=37. The reference range was not used to interpr et this result as anselmo l/abnormal. [place] 493092-12-10 11:20:00 Test Item Value Reference Range Interpretation Comments Alk Phos (test code = Alk Phos) 88 39-136 [place] 493092-12-10 11:20:00 Test Item Value Reference Range Interpretation Comments Bili Total (test code = Bili Total) 0.1 0.2-1.3 [place] [address]-12-10 11:20:00 Test Item Value Reference Range Interpretation Comments AGAP (test code = AGAP) 11.8 10.0-20.0 [place] [address]-12-10 11:20:00 Test Item Value Reference Range Interpretation Comments B/C Ratio (test code = B/C Ratio) 15 1 6-25 [place] [address]-12-10 11:20:00 Test Item Value Reference Range Interpretation Comments Globulin (test code = Globulin) 2.8 2.7-4.2 [place] [address]-12-10 11:20:00 Test Item Value Reference Range Interpretation Comments A/G Ratio (test code = A/G Ratio) 1.0 1 0.7-1.6 [place] 493092-12-10 11:20:00 Test Item Value Reference Range Interpretation Comments eGFR (test code = eGFR) 118 [place] 505542-12-10 11:20:00 Test Item Value Reference Range Interpretation Comments Segs (test code = Segs) 47.6 45.0-75.0 [place] [address]-12-10 11:20:00 Test Item Value Reference Range Interpretation Comments Lymphocytes (test code = Lymphocytes) 39.9 20.0-40.0 [place] [address]-12-10 11:20:00 Test Item Value Reference Range Interpretation Comments Monocytes (test code = Monocytes) 6.5 2.0-12.0 [place] [address]-12-10 11:20:00 Test Item Value Reference Range Interpretation Comments Eosinophils (test code = 5.1 See_Comment [A utomated message] The Eosinophils) system which ge nerated this result tra nsmitted reference range : <=4.0. The reference r peri was not used to int erpret this result as normal/abnormal . [facility] CenterRyyaqtsZWKLGYCJKG6974-90-90 11:20:00 Test Item Value Reference Range Interpretation Comments Basophils (test code = 0.9 See_Comment [Aut omated message] The Basophils) system which ge nerated this result tra nsmitted reference range : <=1.0. The reference r peri was not used to int erpret this result as normal/abnormal . [place] 505542-12-10 11:20:00 Test Item Value Reference Range Interpretation Comments Neutrophils # (test code = Neutrophils 3.3 1.5-8.1 #) [place] 505542-12-10 11:20:00 Test Item Value Reference Range Interpretation Comments Lymphocytes # (test code = Lymphocytes 2.8 1.0-5.5 #) [place] [address]-12-10 11:20:00 Test Item Value Reference Range Interpretation Comments Monocytes # (test code 0.5 See_Comment [Aut omated message] The = Monocytes #) system which generated this result tra nsmitted reference range : <=0.8. The reference r peri was not used to int erpret this result as normal/abnormal . [facility] CenterZzpzzdjXETTOEQPWQ7017-49-07 11:20:00 Test Item Value Reference Range Interpretation Comments Eosinophils # (test code 0.4 See_Comment [A utomated message] The = Eosinophils #) system [facility] generated this result tra nsmitted reference range : <=0.5. The reference r peri was not used to int erpret this result as normal/abnormal . [facility] CenterRapyfmsJUPCYDZIHM5804-67-86 11:20:00 Test Item Value Reference Range Interpretation Comments Basophils # (test code 0.1 See_Comment [Aut omated message] The = Basophils #) system which generated this result tra nsmitted reference range : <=0.2. The reference r peri was not used to int erpret this result as normal/abnormal . [place] [address]-12-10 11:20:00 Test Item Value Reference Range Interpretation Comments WBC (test code = WBC) 6.9 3.7-10.4 [facility] CenterXbgqnzhEKUXIFFWRN6945-79-78 11:20:00 Test Item Value Reference Range Interpretation Comments RBC (test code = RBC) 4.38 4.70-6.10 [facility] CenterIcfpsxwEBBXQWUEID4481-56-64 11:20:00 Test Item Value Reference Range Interpretation Comments Hgb (test code = Hgb) 13.3 14.0-18.0 [facility] CenterDzexixhTRTXMKDFFO2198-87-86 11:20:00 Test Item Value Reference Range Interpretation Comments Hct (test code = Hct) 39.8 42.0-54.0 [facility] CenterLswgqjyHCPJZISPWH6225-46-85 11:20:00 Test Item Value Reference Range Interpretation Comments MCV (test code = MCV) 90.7 80.0-94.0 [facility] CenterDyshfhdKYDOKSRFWB5925-02-26 11:20:00 Test Item Value Reference Range Interpretation Comments MCH (test code = MCH) 30.4 pg 27.0-31.0 [facility] CenterWhxtkdsNUHGZXLQTG5690-34-66 11:20:00 Test Item Value Reference Range Interpretation Comments MCHC (test code = MCHC) 33.6 32.0-36.0 [facility] CenterDrbsuqlFHIZROBQLI8863-53-92 11:20:00 Test Item Value Reference Range Interpretation Comments RDW (test code = RDW) 12.7 11.5-14.5 [facility] CenterHlayzdkZJUKQGZEFR6073-99-87 11:20:00 Test Item Value Reference Range Interpretation Comments Platelet (test code = Platelet) 188 133-450 [facility] CenterWjlnrgbXCBIZTBEVY8482-29-21 11:20:00 Test Item Value Reference Range Interpretation Comments MPV (test code = MPV) 9.9 7.4-10.4 [facility]CARD[facility] OEXHIPK1001-77-74 11:16:00 Test Item Value Reference Range Interpretation Comments Total CK (test code = Total CK) 369 12-191 [facility]2022-12-09 11:16:00 Test Item Value Reference Range Interpretation Comments Calcium Lvl (test code = Calcium Lvl) 8.9 8.5-10.5 [facility]2022-12-09 11:16:00 Test Item Value Reference Range Interpretation Comments Glucose Lvl (test code = Glucose Lvl) 101 70-99 [facility]2022-12-09 11:16:00 Test Item Value Reference Range Interpretation Comments BUN (test code = BUN) 12 7-22 [place] 493092-12-09 11:16:00 Test Item Value Reference Range Interpretation Comments Creatinine Lvl (test code = Creatinine 0.65 0.50-1.40 Lvl) [place] 493092-12-09 11:16:00 Test Item Value Reference Range Interpretation Comments Sodium Lvl (test code = Sodium Lvl) 142 135-145 [place] 493092-12-09 11:16:00 Test Item Value Reference Range Interpretation Comments Potassium Lvl (test code = Potassium 4.0 3.5-5.1 Lvl) [place] 493092-12-09 11:16:00 Test Item Value Reference Range Interpretation Comments Chloride Lvl (test code = Chloride Lvl) 111 95-109 [place] 493092-12-09 11:16:00 Test Item Value Reference Range Interpretation Comments CO2 (test code = CO2) 23 24-32 [place] 493092-12-09 11:16:00 Test Item Value Reference Range Interpretation Comments AGAP (test code = AGAP) 12.0 10.0-20.0 [place] 493092-12-09 11:16:00 Test Item Value Reference Range Interpretation Comments B/C Ratio (test code = B/C Ratio) 18 1 6-25 [place] 493092-12-09 11:16:00 Test Item Value Reference Range Interpretation Comments Total Protein (test code = Total 5.8 6.4-8.4 Protein) [place] 493092-12-09 11:16:00 Test Item Value Reference Range Interpretation Comments Albumin Lvl (test code = Albumin Lvl) 3.1 3.5-5.0 [place] 493092-12-09 11:16:00 Test Item Value Reference Range Interpretation Comments Globulin (test code = Globulin) 2.7 2.7-4.2 [place] 493092-12-09 11:16:00 Test Item Value Reference Range Interpretation Comments A/G Ratio (test code = A/G Ratio) 1.1 1 0.7-1.6 [place] 493092-12-09 11:16:00 Test Item Value Reference Range Interpretation Comments ALT (test code = ALT) 37 See_Comment [Auto mated message] The system which ge nerated this result transmit suze reference range : <=65. The reference range was not used to interpr et this result as anselmo l/abnormal. [place] 493092-12-09 11:16:00 Test Item Value Reference Range Interpretation Comments AST (test code = AST) 45 See_Comment [Auto mated message] The system which ge nerated this result transmit suze reference range : <=37. The reference range was not used to interpr et this result as anselmo l/abnormal. [place] 493092-12-09 11:16:00 Test Item Value Reference Range Interpretation Comments Alk Phos (test code = Alk Phos) 70 39-136 [place] 493092-12-09 11:16:00 Test Item Value Reference Range Interpretation Comments Bili Total (test code = Bili Total) 0.2 0.2-1.3 [place] 493092-12-09 11:16:00 Test Item Value Reference Range Interpretation Comments eGFR (test code = eGFR) 119 [place] 505542-12-09 11:16:00 Test Item Value Reference Range Interpretation Comments WBC (test code = WBC) 6.9 3.7-10.4 [place] 505542-12-09 11:16:00 Test Item Value Reference Range Interpretation Comments RBC (test code = RBC) 4.20 4.70-6.10 [place] [address]-12-09 11:16:00 Test Item Value Reference Range Interpretation Comments Hgb (test code = Hgb) 12.9 14.0-18.0 [place] [address]-12-09 11:16:00 Test Item Value Reference Range Interpretation Comments Hct (test code = Hct) 38.4 42.0-54.0 [place] [address]-12-09 11:16:00 Test Item Value Reference Range Interpretation Comments MCV (test code = MCV) 91.4 80.0-94.0 [place] [address]-12-09 11:16:00 Test Item Value Reference Range Interpretation Comments MCH (test code = MCH) 30.6 pg 27.0-31.0 [place] 505542-12-09 11:16:00 Test Item Value Reference Range Interpretation Comments MCHC (test code = MCHC) 33.5 32.0-36.0 [place] 505542-12-09 11:16:00 Test Item Value Reference Range Interpretation Comments RDW (test code = RDW) 12.7 11.5-14.5 [place] 505542-12-09 11:16:00 Test Item Value Reference Range Interpretation Comments Platelet (test code = Platelet) 180 133-450 [place] 505542-12-09 11:16:00 Test Item Value Reference Range Interpretation Comments MPV (test code = MPV) 9.3 7.4-10.4 [place] 505542-12-09 11:16:00 Test Item Value Reference Range Interpretation Comments Segs (test code = Segs) 51.6 45.0-75.0 [place] 505542-12-09 11:16:00 Test Item Value Reference Range Interpretation Comments Lymphocytes (test code = Lymphocytes) 37.1 20.0-40.0 [place] 505542-12-09 11:16:00 Test Item Value Reference Range Interpretation Comments Monocytes (test code = Monocytes) 7.3 2.0-12.0 [place] 505542-12-09 11:16:00 Test Item Value Reference Range Interpretation Comments Eosinophils (test code = 3.4 See_Comment [A utomated message] The Eosinophils) system which ge nerated this result tra nsmitted reference range : <=4.0. The reference r peri was not used to int erpret this result as normal/abnormal . [facility] CenterZidrsfwFSOIMOAFWY6124-14-96 11:16:00 Test Item Value Reference Range Interpretation Comments Basophils (test code = 0.6 See_Comment [Aut omated message] The Basophils) system which ge nerated this result tra nsmitted reference range : <=1.0. The reference r peri was not used to int erpret this result as normal/abnormal . [place] 505542-12-09 11:16:00 Test Item Value Reference Range Interpretation Comments Neutrophils # (test code = Neutrophils 3.5 1.5-8.1 #) [place] 505542-12-09 11:16:00 Test Item Value Reference Range Interpretation Comments Lymphocytes # (test code = Lymphocytes 2.5 1.0-5.5 #) [facility] CenterPhtuhxrMNOXRFJGYH0051-07-59 11:16:00 Test Item Value Reference Range Interpretation Comments Monocytes # (test code 0.5 See_Comment [Aut omated message] The = Monocytes #) system which generated this result tra nsmitted reference range : <=0.8. The reference r peri was not used to int erpret this result as normal/abnormal . [facility] CenterEtmaoogTVGMUBLSEX0027-56-98 11:16:00 Test Item Value Reference Range Interpretation Comments Eosinophils # (test code 0.2 See_Comment [A utomated message] The = Eosinophils #) system whic h generated this result tra nsmitted reference range : <=0.5. The reference r peri was not used to int erpret this result as normal/abnormal . [facility]CARDI FCYXGTL1279-63-89 11:16:00 Test Item Value Reference Range Interpretation Comments Total CK (test code = Total CK) 369 12-191 [facility]2022-12-09 11:16:00 Test Item Value Reference Range Interpretation Comments Calcium Lvl (test code = Calcium Lvl) 8.9 8.5-10.5 [facility]2022-12-09 11:16:00 Test Item Value Reference Range Interpretation Comments Glucose Lvl (test code = Glucose Lvl) 101 70-99 [facility]2022-12-09 11:16:00 Test Item Value Reference Range Interpretation Comments BUN (test code = BUN) 12 7-22 [facility]2022-12-09 11:16:00 Test Item Value Reference Range Interpretation Comments Creatinine Lvl (test code = Creatinine 0.65 0.50-1.40 Lvl) [facility]2022-12-09 11:16:00 Test Item Value Reference Range Interpretation Comments Sodium Lvl (test code = Sodium Lvl) 142 135-145 [facility]2022-12-09 11:16:00 Test Item Value Reference Range Interpretation Comments Potassium Lvl (test code = Potassium 4.0 3.5-5.1 Lvl) [facility]2022-12-09 11:16:00 Test Item Value Reference Range Interpretation Comments Chloride Lvl (test code = Chloride Lvl) 111 95-109 [place] [address]-12-09 11:16:00 Test Item Value Reference Range Interpretation Comments CO2 (test code = CO2) 23 24-32 [place] [address]-12-09 11:16:00 Test Item Value Reference Range Interpretation Comments AGAP (test code = AGAP) 12.0 10.0-20.0 [place] [address]-12-09 11:16:00 Test Item Value Reference Range Interpretation Comments B/C Ratio (test code = B/C Ratio) 18 1 6-25 [place] [address]-12-09 11:16:00 Test Item Value Reference Range Interpretation Comments Total Protein (test code = Total 5.8 6.4-8.4 Protein) [address]12-09 11:16:00 Test Item Value Reference Range Interpretation Comments Albumin Lvl (test code = Albumin Lvl) 3.1 3.5-5.0 [place] [address]-12-09 11:16:00 Test Item Value Reference Range Interpretation Comments Globulin (test code = Globulin) 2.7 2.7-4.2 [place] [address]-12-09 11:16:00 Test Item Value Reference Range Interpretation Comments A/G Ratio (test code = A/G Ratio) 1.1 1 0.7-1.6 [place] [address]-12-09 11:16:00 Test Item Value Reference Range Interpretation Comments ALT (test code = ALT) 37 See_Comment [Auto mated message] The system which ge nerated this result transmit suze reference range : <=65. The reference range was not used to interpr et this result as anselmo l/abnormal. [place] 493092-12-09 11:16:00 Test Item Value Reference Range Interpretation Comments AST (test code = AST) 45 See_Comment [Auto mated message] The system which ge nerated this result transmit suze reference range : <=37. The reference range was not used to interpr et this result as anselmo l/abnormal. [place] [address]-12-09 11:16:00 Test Item Value Reference Range Interpretation Comments Alk Phos (test code = Alk Phos) 70 39-136 [place] [address]-12-09 11:16:00 Test Item Value Reference Range Interpretation Comments Bili Total (test code = Bili Total) 0.2 0.2-1.3 [facility]2022-12-09 11:16:00 Test Item Value Reference Range Interpretation Comments eGFR (test code = eGFR) 119 [facility] CenterEovhvxzHAJKEHCSJN0850-40-30 11:16:00 Test Item Value Reference Range Interpretation Comments WBC (test code = WBC) 6.9 3.7-10.4 [facility] CenterAqkjyzmQXLCDHEXKI4718-62-46 11:16:00 Test Item Value Reference Range Interpretation Comments RBC (test code = RBC) 4.20 4.70-6.10 [facility] CenterSpvgyurDVLEFXQFMK5244-30-71 11:16:00 Test Item Value Reference Range Interpretation Comments Hgb (test code = Hgb) 12.9 14.0-18.0 [place] 505542-12-09 11:16:00 Test Item Value Reference Range Interpretation Comments Hct (test code = Hct) 38.4 42.0-54.0 [facility] CenterGmspdknFMFQHFULJS1486-08-91 11:16:00 Test Item Value Reference Range Interpretation Comments MCV (test code = MCV) 91.4 80.0-94.0 [facility] CenterLhoxcvoUNWRTBNXXI7951-97-74 11:16:00 Test Item Value Reference Range Interpretation Comments MCH (test code = MCH) 30.6 pg 27.0-31.0 [facility] CenterEhfnespTEQJIIOGYH8957-63-25 11:16:00 Test Item Value Reference Range Interpretation Comments MCHC (test code = MCHC) 33.5 32.0-36.0 [facility] CenterTllliqpXAASAJJURX3295-66-65 11:16:00 Test Item Value Reference Range Interpretation Comments RDW (test code = RDW) 12.7 11.5-14.5 [place] 505542-12-09 11:16:00 Test Item Value Reference Range Interpretation Comments Platelet (test code = Platelet) 180 133-450 [facility] CenterIfjxheeXTUQSGCSDO9996-76-04 11:16:00 Test Item Value Reference Range Interpretation Comments MPV (test code = MPV) 9.3 7.4-10.4 [facility] CenterBkhbqpyNZHPMLZGZV7963-35-44 11:16:00 Test Item Value Reference Range Interpretation Comments Segs (test code = Segs) 51.6 45.0-75.0 [place] 505542-12-09 11:16:00 Test Item Value Reference Range Interpretation Comments Lymphocytes (test code = Lymphocytes) 37.1 20.0-40.0 [facility] CenterXhlfrupGCKYMUVIWY4763-98-94 11:16:00 Test Item Value Reference Range Interpretation Comments Monocytes (test code = Monocytes) 7.3 2.0-12.0 [facility] CenterWbatujaENVUBXFJMD1538-47-21 11:16:00 Test Item Value Reference Range Interpretation Comments Eosinophils (test code = 3.4 See_Comment [A utomated message] The Eosinophils) system which ge nerated this result tra nsmitted reference range : <=4.0. The reference r peri was not used to int erpret this result as normal/abnormal . [facility] CenterMgcmikoKTWMDGYEPT5599-72-46 11:16:00 Test Item Value Reference Range Interpretation Comments Basophils (test code = 0.6 See_Comment [Aut omated message] The Basophils) system which ge nerated this result tra nsmitted reference range : <=1.0. The reference r peri was not used to int erpret this result as normal/abnormal . [facility] CenterPqkdvmbQJJSFSUNDX8184-95-76 11:16:00 Test Item Value Reference Range Interpretation Comments Neutrophils # (test code = Neutrophils 3.5 1.5-8.1 #) [facility] CenterPkvqibrLUBWVILWTU1562-56-31 11:16:00 Test Item Value Reference Range Interpretation Comments Lymphocytes # (test code = Lymphocytes 2.5 1.0-5.5 #) [facility] CenterDtptocvMUDZLNVLLS1178-09-17 11:16:00 Test Item Value Reference Range Interpretation Comments Monocytes # (test code 0.5 See_Comment [Aut omated message] The = Monocytes #) system which generated this result tra nsmitted reference range : <=0.8. The reference r peri was not used to int erpret this result as normal/abnormal . [facility] CenterOrpigsmQQXNORBAOV4948-94-66 11:16:00 Test Item Value Reference Range Interpretation Comments Eosinophils # (test code 0.2 See_Comment [A utomated message] The = Eosinophils #) system whic h generated this result tra nsmitted reference range : <=0.5. The reference r peri was not used to int erpret this result as normal/abnormal . [facility] [id number] 11:16:00 Test Item Value Reference Range Interpretation Comments Total CK (test code = Total CK) 369 12-191 [place] 493092-12-09 11:16:00 Test Item Value Reference Range Interpretation Comments Calcium Lvl (test code = Calcium Lvl) 8.9 8.5-10.5 [place] 493092-12-09 11:16:00 Test Item Value Reference Range Interpretation Comments Glucose Lvl (test code = Glucose Lvl) 101 70-99 [place] 493092-12-09 11:16:00 Test Item Value Reference Range Interpretation Comments BUN (test code = BUN) 12 7-22 [place] 493092-12-09 11:16:00 Test Item Value Reference Range Interpretation Comments Creatinine Lvl (test code = Creatinine 0.65 0.50-1.40 Lvl) [place] 493092-12-09 11:16:00 Test Item Value Reference Range Interpretation Comments Sodium Lvl (test code = Sodium Lvl) 142 135-145 [place] 493092-12-09 11:16:00 Test Item Value Reference Range Interpretation Comments Potassium Lvl (test code = Potassium 4.0 3.5-5.1 Lvl) [place] 493092-12-09 11:16:00 Test Item Value Reference Range Interpretation Comments Chloride Lvl (test code = Chloride Lvl) 111 95-109 [place] 493092-12-09 11:16:00 Test Item Value Reference Range Interpretation Comments CO2 (test code = CO2) 23 24-32 [place] 493092-12-09 11:16:00 Test Item Value Reference Range Interpretation Comments AGAP (test code = AGAP) 12.0 10.0-20.0 [place] 493092-12-09 11:16:00 Test Item Value Reference Range Interpretation Comments B/C Ratio (test code = B/C Ratio) 18 1 6-25 [place] 493092-12-09 11:16:00 Test Item Value Reference Range Interpretation Comments Total Protein (test code = Total 5.8 6.4-8.4 Protein) [place] 493092-12-09 11:16:00 Test Item Value Reference Range Interpretation Comments Albumin Lvl (test code = Albumin Lvl) 3.1 3.5-5.0 [address]12-09 11:16:00 Test Item Value Reference Range Interpretation Comments Globulin (test code = Globulin) 2.7 2.7-4.2 [place] [address]-12-09 11:16:00 Test Item Value Reference Range Interpretation Comments A/G Ratio (test code = A/G Ratio) 1.1 1 0.7-1.6 [place] [address]-12-09 11:16:00 Test Item Value Reference Range Interpretation Comments ALT (test code = ALT) 37 See_Comment [Auto mated message] The system which ge nerated this result transmit suze reference range : <=65. The reference range was not used to interpr et this result as anselmo l/abnormal. [address]12-09 11:16:00 Test Item Value Reference Range Interpretation Comments AST (test code = AST) 45 See_Comment [Auto mated message] The system which ge nerated this result transmit suze reference range : <=37. The reference range was not used to interpr et this result as anselmo l/abnormal. [place] [address]-12-09 11:16:00 Test Item Value Reference Range Interpretation Comments Alk Phos (test code = Alk Phos) 70 39-136 [place] [address]-12-09 11:16:00 Test Item Value Reference Range Interpretation Comments Bili Total (test code = Bili Total) 0.2 0.2-1.3 [place] [address]-12-09 11:16:00 Test Item Value Reference Range Interpretation Comments eGFR (test code = eGFR) 119 [place] [address]-12-09 11:16:00 Test Item Value Reference Range Interpretation Comments WBC (test code = WBC) 6.9 3.7-10.4 [place] [address]-12-09 11:16:00 Test Item Value Reference Range Interpretation Comments RBC (test code = RBC) 4.20 4.70-6.10 [place] [address]-12-09 11:16:00 Test Item Value Reference Range Interpretation Comments Hgb (test code = Hgb) 12.9 14.0-18.0 [place] [address]-12-09 11:16:00 Test Item Value Reference Range Interpretation Comments Hct (test code = Hct) 38.4 42.0-54.0 [place] 505542-12-09 11:16:00 Test Item Value Reference Range Interpretation Comments MCV (test code = MCV) 91.4 80.0-94.0 [place] 505542-12-09 11:16:00 Test Item Value Reference Range Interpretation Comments MCH (test code = MCH) 30.6 pg 27.0-31.0 [place] 505542-12-09 11:16:00 Test Item Value Reference Range Interpretation Comments MCHC (test code = MCHC) 33.5 32.0-36.0 [place] 505542-12-09 11:16:00 Test Item Value Reference Range Interpretation Comments RDW (test code = RDW) 12.7 11.5-14.5 [place] 505542-12-09 11:16:00 Test Item Value Reference Range Interpretation Comments Platelet (test code = Platelet) 180 133-450 [facility]KjmksuaOLGNXUMJZD7928-85-29 11:16:00 Test Item Value Reference Range Interpretation Comments MPV (test code = MPV) 9.3 7.4-10.4 [place] 505542-12-09 11:16:00 Test Item Value Reference Range Interpretation Comments Segs (test code = Segs) 51.6 45.0-75.0 [facility] CenterZnlyprjFBEKIPGSOR3124-79-82 11:16:00 Test Item Value Reference Range Interpretation Comments Lymphocytes (test code = Lymphocytes) 37.1 20.0-40.0 [place] 505542-12-09 11:16:00 Test Item Value Reference Range Interpretation Comments Monocytes (test code = Monocytes) 7.3 2.0-12.0 [place] [address]-12-09 11:16:00 Test Item Value Reference Range Interpretation Comments Eosinophils (test code = 3.4 See_Comment [A utomated message] The Eosinophils) system which ge nerated this result tra nsmitted reference range : <=4.0. The reference r peri was not used to int erpret this result as normal/abnormal . [place] 505542-12-09 11:16:00 Test Item Value Reference Range Interpretation Comments Basophils (test code = 0.6 See_Comment [Aut omated message] The Basophils) system which ge nerated this result tra nsmitted reference range : <=1.0. The reference r peri was not used to int erpret this result as normal/abnormal . [facility] CenterKnpsbcsJEIGZARTMV0035-09-[facility] 11:16:00 Test Item Value Reference Range Interpretation Comments Neutrophils # (test code = Neutrophils 3.5 1.5-8.1 #) [facility] CenterOcjdpuxUXYMUDOXZY2293-63-46 11:16:00 Test Item Value Reference Range Interpretation Comments Lymphocytes # (test code = Lymphocytes 2.5 1.0-5.5 #) [facility] CenterQqxqvgqHXWWTLVSJK3959-26-58 11:16:00 Test Item Value Reference Range Interpretation Comments Monocytes # (test code 0.5 See_Comment [Aut omated message] The = Monocytes #) system which generated this result tra nsmitted reference range : <=0.8. The reference r peri was not used to int erpret this result as normal/abnormal . [facility] CenterEhamvhlPGBUYICGNP7298-76-47 11:16:00 Test Item Value Reference Range Interpretation Comments Eosinophils # (test code 0.2 See_Comment [A utomated message] The = Eosinophils #) system whic h generated this result tra nsmitted reference range : <=0.5. The reference r peri was not used to int erpret this result as normal/abnormal . [facility] LSMTGHU8729-85-08 11:16:00 Test Item Value Reference Range Interpretation Comments Total CK (test code = Total CK) 369 12-191 [facility]2022-12-09 11:16:00 Test Item Value Reference Range Interpretation Comments Calcium Lvl (test code = Calcium Lvl) 8.9 8.5-10.5 [facility]2022-12-09 11:16:00 Test Item Value Reference Range Interpretation Comments Glucose Lvl (test code = Glucose Lvl) 101 70-99 [facility]2022-12-09 11:16:00 Test Item Value Reference Range Interpretation Comments BUN (test code = BUN) 12 7-22 [facility]2022-12-09 11:16:00 Test Item Value Reference Range Interpretation Comments Creatinine Lvl (test code = Creatinine 0.65 0.50-1.40 Lvl) [facility]2022-12-09 11:16:00 Test Item Value Reference Range Interpretation Comments Sodium Lvl (test code = Sodium Lvl) 142 135-145 [place] 493092-12-09 11:16:00 Test Item Value Reference Range Interpretation Comments Potassium Lvl (test code = Potassium 4.0 3.5-5.1 Lvl) [place] 493092-12-09 11:16:00 Test Item Value Reference Range Interpretation Comments Chloride Lvl (test code = Chloride Lvl) 111 95-109 [place] 493092-12-09 11:16:00 Test Item Value Reference Range Interpretation Comments CO2 (test code = CO2) 23 24-32 [place] 493092-12-09 11:16:00 Test Item Value Reference Range Interpretation Comments AGAP (test code = AGAP) 12.0 10.0-20.0 [place] 493092-12-09 11:16:00 Test Item Value Reference Range Interpretation Comments B/C Ratio (test code = B/C Ratio) 18 1 6-25 [place] 493092-12-09 11:16:00 Test Item Value Reference Range Interpretation Comments Total Protein (test code = Total 5.8 6.4-8.4 Protein) [place] 493092-12-09 11:16:00 Test Item Value Reference Range Interpretation Comments Albumin Lvl (test code = Albumin Lvl) 3.1 3.5-5.0 [place] 493092-12-09 11:16:00 Test Item Value Reference Range Interpretation Comments Globulin (test code = Globulin) 2.7 2.7-4.2 [place] 493092-12-09 11:16:00 Test Item Value Reference Range Interpretation Comments A/G Ratio (test code = A/G Ratio) 1.1 1 0.7-1.6 [place] [address]-12-09 11:16:00 Test Item Value Reference Range Interpretation Comments ALT (test code = ALT) 37 See_Comment [Auto mated message] The system which ge nerated this result transmit suze reference range : <=65. The reference range was not used to interpr et this result as anselmo l/abnormal. [place] 493092-12-09 11:16:00 Test Item Value Reference Range Interpretation Comments AST (test code = AST) 45 See_Comment [Auto mated message] The system which ge nerated this result transmit suze reference range : <=37. The reference range was not used to interpr et this result as anselmo l/abnormal. [facility]2022-12-09 11:16:00 Test Item Value Reference Range Interpretation Comments Alk Phos (test code = Alk Phos) 70 39-136 [facility]2022-12-09 11:16:00 Test Item Value Reference Range Interpretation Comments Bili Total (test code = Bili Total) 0.2 0.2-1.3 [facility]2022-12-09 11:16:00 Test Item Value Reference Range Interpretation Comments eGFR (test code = eGFR) 119 [facility] CenterKchslwnQNVSEGIXKS2530-39-71 11:16:00 Test Item Value Reference Range Interpretation Comments WBC (test code = WBC) 6.9 3.7-10.4 [facility] CenterExuqiqqAPHMEHTGYH7718-83-12 11:16:00 Test Item Value Reference Range Interpretation Comments RBC (test code = RBC) 4.20 4.70-6.10 [facility] CenterQwahqdqFFBSAYZZSY4922-04-61 11:16:00 Test Item Value Reference Range Interpretation Comments Hgb (test code = Hgb) 12.9 14.0-18.0 [facility] CenterGkoznigCABQJEWKGH4350-63-08 11:16:00 Test Item Value Reference Range Interpretation Comments Hct (test code = Hct) 38.4 42.0-54.0 [place] 505542-12-09 11:16:00 Test Item Value Reference Range Interpretation Comments MCV (test code = MCV) 91.4 80.0-94.0 [place] 505542-12-09 11:16:00 Test Item Value Reference Range Interpretation Comments MCH (test code = MCH) 30.6 pg 27.0-31.0 [place] 505542-12-09 11:16:00 Test Item Value Reference Range Interpretation Comments MCHC (test code = MCHC) 33.5 32.0-36.0 [place] [address]-12-09 11:16:00 Test Item Value Reference Range Interpretation Comments RDW (test code = RDW) 12.7 11.5-14.5 [place] 505542-12-09 11:16:00 Test Item Value Reference Range Interpretation Comments Platelet (test code = Platelet) 180 133-450 [place] 505542-12-09 11:16:00 Test Item Value Reference Range Interpretation Comments MPV (test code = MPV) 9.3 7.4-10.4 [place] [address]-12-09 11:16:00 Test Item Value Reference Range Interpretation Comments Segs (test code = Segs) 51.6 45.0-75.0 [place] 505542-12-09 11:16:00 Test Item Value Reference Range Interpretation Comments Lymphocytes (test code = Lymphocytes) 37.1 20.0-40.0 [place] 505542-12-09 11:16:00 Test Item Value Reference Range Interpretation Comments Monocytes (test code = Monocytes) 7.3 2.0-12.0 [place] 505542-12-09 11:16:00 Test Item Value Reference Range Interpretation Comments Eosinophils (test code = 3.4 See_Comment [A utomated message] The Eosinophils) system which ge nerated this result tra nsmitted reference range : <=4.0. The reference r peri was not used to int erpret this result as normal/abnormal . [facility] CenterLctmecxXNQVFLJIYT3851-88-44 11:16:00 Test Item Value Reference Range Interpretation Comments Basophils (test code = 0.6 See_Comment [Aut omated message] The Basophils) system which ge nerated this result tra nsmitted reference range : <=1.0. The reference r peri was not used to int erpret this result as normal/abnormal . [facility] CenterHyiekfnFMILSIZHDF6511-50-71 11:16:00 Test Item Value Reference Range Interpretation Comments Neutrophils # (test code = Neutrophils 3.5 1.5-8.1 #) [place]05542-12-09 11:16:00 Test Item Value Reference Range Interpretation Comments Lymphocytes # (test code = Lymphocytes 2.5 1.0-5.5 #) [place] 505542-12-09 11:16:00 Test Item Value Reference Range Interpretation Comments Monocytes # (test code 0.5 See_Comment [Aut omated message] The = Monocytes #) system which generated this result tra nsmitted reference range : <=0.8. The reference r peri was not used to int erpret this result as normal/abnormal . [facility] CenterWuwrwdlDVRONMBXXP9632-55-12 11:16:00 Test Item Value Reference Range Interpretation Comments Eosinophils # (test code 0.2 See_Comment [A utomated message] The = Eosinophils #) system whic h generated this result tra nsmitted reference range : <=0.5. The reference r peri was not used to int erpret this result as normal/abnormal . [facility]CARD[facility]AC NMJVOHG0896-29-84 11:16:00 Test Item Value Reference Range Interpretation Comments Total CK (test code = Total CK) 369 12-191 [facility]2022-12-09 11:16:00 Test Item Value Reference Range Interpretation Comments Calcium Lvl (test code = Calcium Lvl) 8.9 8.5-10.5 [facility]2022-12-09 11:16:00 Test Item Value Reference Range Interpretation Comments Glucose Lvl (test code = Glucose Lvl) 101 70-99 [facility]2022-12-09 11:16:00 Test Item Value Reference Range Interpretation Comments BUN (test code = BUN) 12 7-22 [facility]2022-12-09 11:16:00 Test Item Value Reference Range Interpretation Comments Creatinine Lvl (test code = Creatinine 0.65 0.50-1.40 Lvl) [facility]2022-12-09 11:16:00 Test Item Value Reference Range Interpretation Comments Sodium Lvl (test code = Sodium Lvl) 142 135-145 [facility]2022-12-09 11:16:00 Test Item Value Reference Range Interpretation Comments Potassium Lvl (test code = Potassium 4.0 3.5-5.1 Lvl) [place] 493092-12-09 11:16:00 Test Item Value Reference Range Interpretation Comments Chloride Lvl (test code = Chloride Lvl) 111 95-109 [facility]2022-12-09 11:16:00 Test Item Value Reference Range Interpretation Comments CO2 (test code = CO2) 23 24-32 [facility]2022-12-09 11:16:00 Test Item Value Reference Range Interpretation Comments AGAP (test code = AGAP) 12.0 10.0-20.0 [place] [address]-12-09 11:16:00 Test Item Value Reference Range Interpretation Comments B/C Ratio (test code = B/C Ratio) 18 1 6-25 [place] [address]-12-09 11:16:00 Test Item Value Reference Range Interpretation Comments Total Protein (test code = Total 5.8 6.4-8.4 Protein) [place] [address]-12-09 11:16:00 Test Item Value Reference Range Interpretation Comments Albumin Lvl (test code = Albumin Lvl) 3.1 3.5-5.0 [address]12-09 11:16:00 Test Item Value Reference Range Interpretation Comments Globulin (test code = Globulin) 2.7 2.7-4.2 [place] [address]-12-09 11:16:00 Test Item Value Reference Range Interpretation Comments A/G Ratio (test code = A/G Ratio) 1.1 1 0.7-1.6 [place] [address]-12-09 11:16:00 Test Item Value Reference Range Interpretation Comments ALT (test code = ALT) 37 See_Comment [Auto mated message] The system which ge nerated this result transmit suze reference range : <=65. The reference range was not used to interpr et this result as anselmo l/abnormal. [place] 493092-12-09 11:16:00 Test Item Value Reference Range Interpretation Comments AST (test code = AST) 45 See_Comment [Auto mated message] The system which ge nerated this result transmit suze reference range : <=37. The reference range was not used to interpr et this result as anselmo l/abnormal. [place] 493092-12-09 11:16:00 Test Item Value Reference Range Interpretation Comments Alk Phos (test code = Alk Phos) 70 39-136 [place] 493092-12-09 11:16:00 Test Item Value Reference Range Interpretation Comments Bili Total (test code = Bili Total) 0.2 0.2-1.3 [place] [address]-12-09 11:16:00 Test Item Value Reference Range Interpretation Comments eGFR (test code = eGFR) 119 [facility] CenterZrrlfydKNWKTMCIVV6963-42-97 11:16:00 Test Item Value Reference Range Interpretation Comments WBC (test code = WBC) 6.9 3.7-10.4 [facility] CenterOvixhuhOQTWVJLSTE9716-82-62 11:16:00 Test Item Value Reference Range Interpretation Comments RBC (test code = RBC) 4.20 4.70-6.10 [facility] CenterFqaslquGTRWEJKOHU4670-20-04 11:16:00 Test Item Value Reference Range Interpretation Comments Hgb (test code = Hgb) 12.9 14.0-18.0 [facility] CenterTowglugRBXWORSJXD4748-84-02 11:16:00 Test Item Value Reference Range Interpretation Comments Hct (test code = Hct) 38.4 42.0-54.0 [facility] CenterXcbboylDQDNKPEIFM3079-20-12 11:16:00 Test Item Value Reference Range Interpretation Comments MCV (test code = MCV) 91.4 80.0-94.0 [facility] CenterZacebnlIAQZHNGCJW0336-78-67 11:16:00 Test Item Value Reference Range Interpretation Comments MCH (test code = MCH) 30.6 pg 27.0-31.0 [facility] CenterTglqbkdCYRIXOYPST6130-21-34 11:16:00 Test Item Value Reference Range Interpretation Comments MCHC (test code = MCHC) 33.5 32.0-36.0 [facility] CenterSwqffhwBLGNWVNMRG7529-20-07 11:16:00 Test Item Value Reference Range Interpretation Comments RDW (test code = RDW) 12.7 11.5-14.5 [facility] CenterRwaxabfQSXMJNHTKO0212-76-50 11:16:00 Test Item Value Reference Range Interpretation Comments Platelet (test code = Platelet) 180 133-450 [facility] CenterKszfiicUXVQVBZBJJ7444-64-71 11:16:00 Test Item Value Reference Range Interpretation Comments MPV (test code = MPV) 9.3 7.4-10.4 [place] 505542-12-09 11:16:00 Test Item Value Reference Range Interpretation Comments Segs (test code = Segs) 51.6 45.0-75.0 [place] 505542-12-09 11:16:00 Test Item Value Reference Range Interpretation Comments Lymphocytes (test code = Lymphocytes) 37.1 20.0-40.0 [place] 505542-12-09 11:16:00 Test Item Value Reference Range Interpretation Comments Monocytes (test code = Monocytes) 7.3 2.0-12.0 [place] [address]-12-09 11:16:00 Test Item Value Reference Range Interpretation Comments Eosinophils (test code = 3.4 See_Comment [A utomated message] The Eosinophils) system which ge nerated this result tra nsmitted reference range : <=4.0. The reference r peri was not used to int erpret this result as normal/abnormal . [facility] CenterFkcpbizESNKRFAVFU4718-03-47 11:16:00 Test Item Value Reference Range Interpretation Comments Basophils (test code = 0.6 See_Comment [Aut omated message] The Basophils) system which ge nerated this result tra nsmitted reference range : <=1.0. The reference r peri was not used to int erpret this result as normal/abnormal . [facility] CenterTtfvoefIFWMEMEUHO3350-17-25 11:16:00 Test Item Value Reference Range Interpretation Comments Neutrophils # (test code = Neutrophils 3.5 1.5-8.1 #) [facility] CenterHudrsejZKRNXNYMUL8176-75-51 11:16:00 Test Item Value Reference Range Interpretation Comments Lymphocytes # (test code = Lymphocytes 2.5 1.0-5.5 #) [facility] CenterMylqrdbHMPAZELBTT8019-18-66 11:16:00 Test Item Value Reference Range Interpretation Comments Monocytes # (test code 0.5 See_Comment [Aut omated message] The = Monocytes #) system which generated this result tra nsmitted reference range : <=0.8. The reference r peri was not used to int erpret this result as normal/abnormal . [facility] CenterRskniiaZYUYDIBPDG1835-33-36 11:16:00 Test Item Value Reference Range Interpretation Comments Eosinophils # (test code 0.2 See_Comment [A utomated message] The = Eosinophils #) system whic h generated this result tra nsmitted reference range : <=0.5. The reference r peri was not used to int erpret this result as normal/abnormal . [facility]CARD[facility] EDWVULX7007-60-59 11:16:00 Test Item Value Reference Range Interpretation Comments Total CK (test code = Total CK) 369 12-191 [facility] CenterClew [id number] 11:16:00 Test Item Value Reference Range Interpretation Comments Calcium Lvl (test code = Calcium Lvl) 8.9 8.5-10.5 [facility] CenterClew [id number] 11:16:00 Test Item Value Reference Range Interpretation Comments Glucose Lvl (test code = Glucose Lvl) 101 70-99 [place] 493092-12-09 11:16:00 Test Item Value Reference Range Interpretation Comments BUN (test code = BUN) 12 7-22 [place] 493092-12-09 11:16:00 Test Item Value Reference Range Interpretation Comments Creatinine Lvl (test code = Creatinine 0.65 0.50-1.40 Lvl) [place] 493092-12-09 11:16:00 Test Item Value Reference Range Interpretation Comments Sodium Lvl (test code = Sodium Lvl) 142 135-145 [place] 493092-12-09 11:16:00 Test Item Value Reference Range Interpretation Comments Potassium Lvl (test code = Potassium 4.0 3.5-5.1 Lvl) [place] 493092-12-09 11:16:00 Test Item Value Reference Range Interpretation Comments Chloride Lvl (test code = Chloride Lvl) 111 95-109 [place] 493092-12-09 11:16:00 Test Item Value Reference Range Interpretation Comments CO2 (test code = CO2) 23 24-32 [place] 493092-12-09 11:16:00 Test Item Value Reference Range Interpretation Comments AGAP (test code = AGAP) 12.0 10.0-20.0 [place] 493092-12-09 11:16:00 Test Item Value Reference Range Interpretation Comments B/C Ratio (test code = B/C Ratio) 18 1 6-25 [place] 493092-12-09 11:16:00 Test Item Value Reference Range Interpretation Comments Total Protein (test code = Total 5.8 6.4-8.4 Protein) [place] 493092-12-09 11:16:00 Test Item Value Reference Range Interpretation Comments Albumin Lvl (test code = Albumin Lvl) 3.1 3.5-5.0 [place] 493092-12-09 11:16:00 Test Item Value Reference Range Interpretation Comments Globulin (test code = Globulin) 2.7 2.7-4.2 [place] 493092-12-09 11:16:00 Test Item Value Reference Range Interpretation Comments A/G Ratio (test code = A/G Ratio) 1.1 1 0.7-1.6 [place] 493092-12-09 11:16:00 Test Item Value Reference Range Interpretation Comments ALT (test code = ALT) 37 See_Comment [Auto mated message] The system which ge nerated this result transmit suze reference range : <=65. The reference range was not used to interpr et this result as anselmo l/abnormal. [place] 493092-12-09 11:16:00 Test Item Value Reference Range Interpretation Comments AST (test code = AST) 45 See_Comment [Auto mated message] The system which ge nerated this result transmit suze reference range : <=37. The reference range was not used to interpr et this result as anselmo l/abnormal. [place] [address]-12-09 11:16:00 Test Item Value Reference Range Interpretation Comments Alk Phos (test code = Alk Phos) 70 39-136 [place] [address]-12-09 11:16:00 Test Item Value Reference Range Interpretation Comments Bili Total (test code = Bili Total) 0.2 0.2-1.3 [facility] CenterClew [id number] 11:16:00 Test Item Value Reference Range Interpretation Comments eGFR (test code = eGFR) 119 [place] 505542-12-09 11:16:00 Test Item Value Reference Range Interpretation Comments WBC (test code = WBC) 6.9 3.7-10.4 [place] [address]-12-09 11:16:00 Test Item Value Reference Range Interpretation Comments RBC (test code = RBC) 4.20 4.70-6.10 [place] [address]-12-09 11:16:00 Test Item Value Reference Range Interpretation Comments Hgb (test code = Hgb) 12.9 14.0-18.0 [place] [address]-12-09 11:16:00 Test Item Value Reference Range Interpretation Comments Hct (test code = Hct) 38.4 42.0-54.0 [place] [address]-12-09 11:16:00 Test Item Value Reference Range Interpretation Comments MCV (test code = MCV) 91.4 80.0-94.0 [place] [address]-12-09 11:16:00 Test Item Value Reference Range Interpretation Comments MCH (test code = MCH) 30.6 pg 27.0-31.0 [place] [id number] 11:16:00 Test Item Value Reference Range Interpretation Comments MCHC (test code = MCHC) 33.5 32.0-36.0 [place] 505542-12-09 11:16:00 Test Item Value Reference Range Interpretation Comments RDW (test code = RDW) 12.7 11.5-14.5 [place] 505542-12-09 11:16:00 Test Item Value Reference Range Interpretation Comments Platelet (test code = Platelet) 180 133-450 [facility]VhycszpDRIMWFVVON1701-73-01 11:16:00 Test Item Value Reference Range Interpretation Comments MPV (test code = MPV) 9.3 7.4-10.4 [place] 505542-12-09 11:16:00 Test Item Value Reference Range Interpretation Comments Segs (test code = Segs) 51.6 45.0-75.0 [facility] CenterIyuyzmfCYJLVCVWYK2198-90-86 11:16:00 Test Item Value Reference Range Interpretation Comments Lymphocytes (test code = Lymphocytes) 37.1 20.0-40.0 [place] 505542-12-09 11:16:00 Test Item Value Reference Range Interpretation Comments Monocytes (test code = Monocytes) 7.3 2.0-12.0 [facility] CenterYarsrwgFFSMFVUSGY7784-67-11 11:16:00 Test Item Value Reference Range Interpretation Comments Eosinophils (test code = 3.4 See_Comment [A utomated message] The Eosinophils) system which ge nerated this result tra nsmitted reference range : <=4.0. The reference r peri was not used to int erpret this result as normal/abnormal . [facility] CenterZkbiztmSDNKQTCRZM5746-50-05 11:16:00 Test Item Value Reference Range Interpretation Comments Basophils (test code = 0.6 See_Comment [Aut omated message] The Basophils) system which ge nerated this result tra nsmitted reference range : <=1.0. The reference r peri was not used to int erpret this result as normal/abnormal . [place] 505542-12-09 11:16:00 Test Item Value Reference Range Interpretation Comments Neutrophils # (test code = Neutrophils 3.5 1.5-8.1 #) [facility]PGUGWHRF8227-46-27 11:16:00 Test Item Value Reference Range Interpretation Comments Lymphocytes # (test code = Lymphocytes 2.5 1.0-5.5 #) [facility] CenterDhovblgUDENLLVGOJ2172-51-39 11:16:00 Test Item Value Reference Range Interpretation Comments Monocytes # (test code 0.5 See_Comment [Aut omated message] The = Monocytes #) system which generated this result tra nsmitted reference range : <=0.8. The reference r peri was not used to int erpret this result as normal/abnormal . [facility] CenterPidvacqVJCOZKCVRN3957-21-95 11:16:00 Test Item Value Reference Range Interpretation Comments Eosinophils # (test code 0.2 See_Comment [A utomated message] The = Eosinophils #) system whic h generated this result tra nsmitted reference range : <=0.5. The reference r peri was not used to int erpret this result as normal/abnormal . [facility] [id number] 11:16:00 Test Item Value Reference Range Interpretation Comments Total CK (test code = Total CK) 369 12-191 [facility]2022-12-09 11:16:00 Test Item Value Reference Range Interpretation Comments Calcium Lvl (test code = Calcium Lvl) 8.9 8.5-10.5 [facility]2022-12-09 11:16:00 Test Item Value Reference Range Interpretation Comments Glucose Lvl (test code = Glucose Lvl) 101 70-99 [facility]2022-12-09 11:16:00 Test Item Value Reference Range Interpretation Comments BUN (test code = BUN) 12 7-22 [facility]2022-12-09 11:16:00 Test Item Value Reference Range Interpretation Comments Creatinine Lvl (test code = Creatinine 0.65 0.50-1.40 Lvl) [facility]2022-12-09 11:16:00 Test Item Value Reference Range Interpretation Comments Sodium Lvl (test code = Sodium Lvl) 142 135-145 [facility]2022-12-09 11:16:00 Test Item Value Reference Range Interpretation Comments Potassium Lvl (test code = Potassium 4.0 3.5-5.1 Lvl) [place] 493092-12-09 11:16:00 Test Item Value Reference Range Interpretation Comments Chloride Lvl (test code = Chloride Lvl) 111 95-109 [place] 493092-12-09 11:16:00 Test Item Value Reference Range Interpretation Comments CO2 (test code = CO2) 23 24-32 [place] 493092-12-09 11:16:00 Test Item Value Reference Range Interpretation Comments AGAP (test code = AGAP) 12.0 10.0-20.0 [place] 493092-12-09 11:16:00 Test Item Value Reference Range Interpretation Comments B/C Ratio (test code = B/C Ratio) 18 1 6-25 [place] [address]-12-09 11:16:00 Test Item Value Reference Range Interpretation Comments Total Protein (test code = Total 5.8 6.4-8.4 Protein) [place] 493092-12-09 11:16:00 Test Item Value Reference Range Interpretation Comments Albumin Lvl (test code = Albumin Lvl) 3.1 3.5-5.0 [place] [address]-12-09 11:16:00 Test Item Value Reference Range Interpretation Comments Globulin (test code = Globulin) 2.7 2.7-4.2 [place] 493092-12-09 11:16:00 Test Item Value Reference Range Interpretation Comments A/G Ratio (test code = A/G Ratio) 1.1 1 0.7-1.6 [place] [address]-12-09 11:16:00 Test Item Value Reference Range Interpretation Comments ALT (test code = ALT) 37 See_Comment [Auto mated message] The system which ge nerated this result transmit suze reference range : <=65. The reference range was not used to interpr et this result as anselmo l/abnormal. [place] [address]-12-09 11:16:00 Test Item Value Reference Range Interpretation Comments AST (test code = AST) 45 See_Comment [Auto mated message] The system which ge nerated this result transmit suze reference range : <=37. The reference range was not used to interpr et this result as anselmo l/abnormal. [place] 493092-12-09 11:16:00 Test Item Value Reference Range Interpretation Comments Alk Phos (test code = Alk Phos) 70 39-136 [facility]2022-12-09 11:16:00 Test Item Value Reference Range Interpretation Comments Bili Total (test code = Bili Total) 0.2 0.2-1.3 [facility]2022-12-09 11:16:00 Test Item Value Reference Range Interpretation Comments eGFR (test code = eGFR) 119 [facility] CenterDcndsydUKUVQHDIVY9503-87-54 11:16:00 Test Item Value Reference Range Interpretation Comments WBC (test code = WBC) 6.9 3.7-10.4 [facility] CenterMttnrurQMIWPOLWLF7481-71-88 11:16:00 Test Item Value Reference Range Interpretation Comments RBC (test code = RBC) 4.20 4.70-6.10 [facility] CenterHwgnhgpLVDPOLYOVF4570-43-27 11:16:00 Test Item Value Reference Range Interpretation Comments Hgb (test code = Hgb) 12.9 14.0-18.0 [place] 505542-12-09 11:16:00 Test Item Value Reference Range Interpretation Comments Hct (test code = Hct) 38.4 42.0-54.0 [facility] CenterVuqngomNPBBSMTXNF3712-28-37 11:16:00 Test Item Value Reference Range Interpretation Comments MCV (test code = MCV) 91.4 80.0-94.0 [place] 505542-12-09 11:16:00 Test Item Value Reference Range Interpretation Comments MCH (test code = MCH) 30.6 pg 27.0-31.0 [place] 505542-12-09 11:16:00 Test Item Value Reference Range Interpretation Comments MCHC (test code = MCHC) 33.5 32.0-36.0 [facility] CenterBtogcsiVYPLCQPGUG2088-48-24 11:16:00 Test Item Value Reference Range Interpretation Comments RDW (test code = RDW) 12.7 11.5-14.5 [facility] CenterLlnjczrJKZMPVMLRM0129-06-91 11:16:00 Test Item Value Reference Range Interpretation Comments Platelet (test code = Platelet) 180 133-450 [facility] CenterApaellvHLJWIVOEHT2978-46-37 11:16:00 Test Item Value Reference Range Interpretation Comments MPV (test code = MPV) 9.3 7.4-10.4 [place] 505542-12-09 11:16:00 Test Item Value Reference Range Interpretation Comments Segs (test code = Segs) 51.6 45.0-75.0 [place] 505542-12-09 11:16:00 Test Item Value Reference Range Interpretation Comments Lymphocytes (test code = Lymphocytes) 37.1 20.0-40.0 [place] [address]-12-09 11:16:00 Test Item Value Reference Range Interpretation Comments Monocytes (test code = Monocytes) 7.3 2.0-12.0 [place] [address]-12-09 11:16:00 Test Item Value Reference Range Interpretation Comments Eosinophils (test code = 3.4 See_Comment [A utomated message] The Eosinophils) system which ge nerated this result tra nsmitted reference range : <=4.0. The reference r peri was not used to int erpret this result as normal/abnormal . [place] [address]-12-09 11:16:00 Test Item Value Reference Range Interpretation Comments Basophils (test code = 0.6 See_Comment [Aut omated message] The Basophils) system which ge nerated this result tra nsmitted reference range : <=1.0. The reference r peri was not used to int erpret this result as normal/abnormal . [place] 505542-12-09 11:16:00 Test Item Value Reference Range Interpretation Comments Neutrophils # (test code = Neutrophils 3.5 1.5-8.1 #) [place] [address]-12-09 11:16:00 Test Item Value Reference Range Interpretation Comments Lymphocytes # (test code = Lymphocytes 2.5 1.0-5.5 #) [place] [address]-12-09 11:16:00 Test Item Value Reference Range Interpretation Comments Monocytes # (test code 0.5 See_Comment [Aut omated message] The = Monocytes #) system which generated this result tra nsmitted reference range : <=0.8. The reference r peri was not used to int erpret this result as normal/abnormal . [place] [address]-12-09 11:16:00 Test Item Value Reference Range Interpretation Comments Eosinophils # (test code 0.2 See_Comment [A utomated message] The = Eosinophils #) system whic h generated this result tra nsmitted reference range : <=0.5. The reference r peri was not used to int erpret this result as normal/abnormal . [facility] [id number] 11:16:00 Test Item Value Reference Range Interpretation Comments Total CK (test code = Total CK) 369 12-191 [facility] [id number] 11:16:00 Test Item Value Reference Range Interpretation Comments Calcium Lvl (test code = Calcium Lvl) 8.9 8.5-10.5 [facility] [id number] 11:16:00 Test Item Value Reference Range Interpretation Comments Glucose Lvl (test code = Glucose Lvl) 101 70-99 [facility] [id number] 11:16:00 Test Item Value Reference Range Interpretation Comments BUN (test code = BUN) 12 7-22 [facility] [id number] 11:16:00 Test Item Value Reference Range Interpretation Comments Creatinine Lvl (test code = Creatinine 0.65 0.50-1.40 Lvl) [facility] [id number] 11:16:00 Test Item Value Reference Range Interpretation Comments Sodium Lvl (test code = Sodium Lvl) 142 135-145 [facility] [id number] 11:16:00 Test Item Value Reference Range Interpretation Comments Potassium Lvl (test code = Potassium 4.0 3.5-5.1 Lvl) [facility] PJADW9516-03-24 11:16:00 Test Item Value Reference Range Interpretation Comments Chloride Lvl (test code = Chloride Lvl) 111 95-109 [facility] [id number] 11:16:00 Test Item Value Reference Range Interpretation Comments CO2 (test code = CO2) 23 24-32 [facility] [id number] 11:16:00 Test Item Value Reference Range Interpretation Comments AGAP (test code = AGAP) 12.0 10.0-20.0 [facility] [id number] 11:16:00 Test Item Value Reference Range Interpretation Comments B/C Ratio (test code = B/C Ratio) 18 1 6-25 [facility] [id number] 11:16:00 Test Item Value Reference Range Interpretation Comments Total Protein (test code = Total 5.8 6.4-8.4 Protein) [address]12-09 11:16:00 Test Item Value Reference Range Interpretation Comments Albumin Lvl (test code = Albumin Lvl) 3.1 3.5-5.0 [place] [address]-12-09 11:16:00 Test Item Value Reference Range Interpretation Comments Globulin (test code = Globulin) 2.7 2.7-4.[address]12-09 11:16:00 Test Item Value Reference Range Interpretation Comments A/G Ratio (test code = A/G Ratio) 1.1 1 0.7-1.[address]12-09 11:16:00 Test Item Value Reference Range Interpretation Comments ALT (test code = ALT) 37 See_Comment [Auto mated message] The system which ge nerated this result transmit suze reference range : <=65. The reference range was not used to interpr et this result as anselmo l/abnormal. [place] [address]-12-09 11:16:00 Test Item Value Reference Range Interpretation Comments AST (test code = AST) 45 See_Comment [Auto mated message] The system which ge nerated this result transmit suze reference range : <=37. The reference range was not used to interpr et this result as anselmo l/abnormal. [place] 493092-12-09 11:16:00 Test Item Value Reference Range Interpretation Comments Alk Phos (test code = Alk Phos) 70 39-136 [place] [address]-12-09 11:16:00 Test Item Value Reference Range Interpretation Comments Bili Total (test code = Bili Total) 0.2 0.2-1.3 [place] [address]-12-09 11:16:00 Test Item Value Reference Range Interpretation Comments eGFR (test code = eGFR) 119 [place] [address]-12-09 11:16:00 Test Item Value Reference Range Interpretation Comments WBC (test code = WBC) 6.9 3.7-10.4 [place] [address]-12-09 11:16:00 Test Item Value Reference Range Interpretation Comments RBC (test code = RBC) 4.20 4.70-6.10 [place] [address]-12-09 11:16:00 Test Item Value Reference Range Interpretation Comments Hgb (test code = Hgb) 12.9 14.0-18.0 [place] 505542-12-09 11:16:00 Test Item Value Reference Range Interpretation Comments Hct (test code = Hct) 38.4 42.0-54.0 [place] 505542-12-09 11:16:00 Test Item Value Reference Range Interpretation Comments MCV (test code = MCV) 91.4 80.0-94.0 [place] 505542-12-09 11:16:00 Test Item Value Reference Range Interpretation Comments MCH (test code = MCH) 30.6 pg 27.0-31.0 [place] [address]-12-09 11:16:00 Test Item Value Reference Range Interpretation Comments MCHC (test code = MCHC) 33.5 32.0-36.0 [place] 505542-12-09 11:16:00 Test Item Value Reference Range Interpretation Comments RDW (test code = RDW) 12.7 11.5-14.5 [place] 505542-12-09 11:16:00 Test Item Value Reference Range Interpretation Comments Platelet (test code = Platelet) 180 133-450 [facility] CenterIpuwshhHHPPBZRRAC7282-55-22 11:16:00 Test Item Value Reference Range Interpretation Comments MPV (test code = MPV) 9.3 7.4-10.4 [place] 505542-12-09 11:16:00 Test Item Value Reference Range Interpretation Comments Segs (test code = Segs) 51.6 45.0-75.0 [place] 505542-12-09 11:16:00 Test Item Value Reference Range Interpretation Comments Lymphocytes (test code = Lymphocytes) 37.1 20.0-40.0 [place] [address]-12-09 11:16:00 Test Item Value Reference Range Interpretation Comments Monocytes (test code = Monocytes) 7.3 2.0-12.0 [place] [address]-12-09 11:16:00 Test Item Value Reference Range Interpretation Comments Eosinophils (test code = 3.4 See_Comment [A utomated message] The Eosinophils) system which ge nerated this result tra nsmitted reference range : <=4.0. The reference r peri was not used to int erpret this result as normal/abnormal . [facility] CenterHbhdbnaCFVCZULHUA3994-30-11 11:16:00 Test Item Value Reference Range Interpretation Comments Basophils (test code = 0.6 See_Comment [Aut omated message] The Basophils) system which ge nerated this result tra nsmitted reference range : <=1.0. The reference r peri was not used to int erpret this result as normal/abnormal . [facility] CenterLklozpjPFEIBUUQMC7546-09-99 11:16:00 Test Item Value Reference Range Interpretation Comments Neutrophils # (test code = Neutrophils 3.5 1.5-8.1 #) [facility]WjgctqcUNEKRCZEBH0923-42-78 11:16:00 Test Item Value Reference Range Interpretation Comments Lymphocytes # (test code = Lymphocytes 2.5 1.0-5.5 #) [facility] CenterNbnqijyWDVDBGGSLZ3461-76-64 11:16:00 Test Item Value Reference Range Interpretation Comments Monocytes # (test code 0.5 See_Comment [Aut omated message] The = Monocytes #) system which generated this result tra nsmitted reference range : <=0.8. The reference r peri was not used to int erpret this result as normal/abnormal . [facility] CenterIgkwdnxWGCEJVDVNO5130-12-57 11:16:00 Test Item Value Reference Range Interpretation Comments Eosinophils # (test code 0.2 See_Comment [A utomated message] The = Eosinophils #) system whic h generated this result tra nsmitted reference range : <=0.5. The reference r peri was not used to int erpret this result as normal/abnormal . [facility] CenterdoughCARDIAC [id number] 15:17:00 Test Item Value Reference Range Interpretation Comments HS Troponin I (test code = HS Troponin 11 I) [facility] [id number] 15:17:00 Test Item Value Reference Range Interpretation Comments Magnesium Lvl (test code = Magnesium 2.4 1.8-2.4 Lvl) [facility] [id number] 15:17:00 Test Item Value Reference Range Interpretation Comments Phosphorus (test code = Phosphorus) 1.7 2.5-4.5 [facility] CenterEgrybfzWEOFQRGGQ6909-51-31 15:17:00 Test Item Value Reference Range Interpretation Comments Ca Ion WB (test code = Ca Ion WB) 1.12 1.05-1.25 [facility] CenterMrsddbkQYLYUXGGE9454-42-71 15:17:00 Test Item Value Reference Range Interpretation Comments Ca Ion at pH 7.4 WB (test code = Ca Ion 1.10 1.05-1.25 at pH 7.4 WB) [facility] CenterLrmgunaXQVMLGMRE8409-58-56 15:17:00 Test Item Value Reference Range Interpretation Comments Magnesium Lvl (test code = Magnesium 2.4 1.8-2.4 Lvl) [facility] CenterOqqvolaNKXWMRWHE6878-26-01 15:17:00 Test Item Value Reference Range Interpretation Comments Phosphorus (test code = Phosphorus) 1.7 2.5-4.5 [facility] CenterZomirqcRVBTKGTFB7217-27-29 15:17:00 Test Item Value Reference Range Interpretation Comments HS Troponin I (test code = HS Troponin 11 I) [facility] CenterPARATHYROID [id number] 15:17:00 Test Item Value Reference Range Interpretation Comments Ca Ion WB (test code = Ca Ion WB) 1.12 1.05-1.25 [facility] [id number] 15:17:00 Test Item Value Reference Range Interpretation Comments Ca Ion at pH 7.4 WB (test code = Ca Ion 1.10 1.05-1.25 at pH 7.4 WB) [facility] CenterannCARDIAC [id number] 15:17:00 Test Item Value Reference Range Interpretation Comments HS Troponin I (test code = HS Troponin 11 I) [facility] CenterCHEM [id number] 15:17:00 Test Item Value Reference Range Interpretation Comments Magnesium Lvl (test code = Magnesium 2.4 1.8-2.4 Lvl) [facility] CenterannCHEM [id number] 15:17:00 Test Item Value Reference Range Interpretation Comments Phosphorus (test code = Phosphorus) 1.7 2.5-4.5 [facility] CenterVgsvhanZHBSLBTDN8195-74-41 15:17:00 Test Item Value Reference Range Interpretation Comments Ca Ion WB (test code = Ca Ion WB) 1.12 1.05-1.25 [facility] CenterXamnnuyHYVKBJTCD7396-58-88 15:17:00 Test Item Value Reference Range Interpretation Comments Ca Ion at pH 7.4 WB (test code = Ca Ion 1.10 1.05-1.25 at pH 7.4 WB) [facility]JqlofveOCQAEJSRT2448-65-03 15:17:00 Test Item Value Reference Range Interpretation Comments Magnesium Lvl (test code = Magnesium 2.4 1.8-2.4 Lvl) [facility] ShorelineLhuzettCZQOCEBGU5429-31-13 15:17:00 Test Item Value Reference Range Interpretation Comments Phosphorus (test code = Phosphorus) 1.7 2.5-4.5 [facility]lineCyeoynbTRVGAZGBG1811-91-64 15:17:00 Test Item Value Reference Range Interpretation Comments HS Troponin I (test code = HS Troponin 11 I) [facility]2022-12-08 15:17:00 Test Item Value Reference Range Interpretation Comments Ca Ion WB (test code = Ca Ion WB) 1.12 1.05-1.25 [facility]2022-12-08 15:17:00 Test Item Value Reference Range Interpretation Comments Ca Ion at pH 7.4 WB (test code = Ca Ion 1.10 1.05-1.25 at pH 7.4 WB) [facility] [id number] 15:17:00 Test Item Value Reference Range Interpretation Comments HS Troponin I (test code = HS Troponin 11 I) [facility]2022-12-08 15:17:00 Test Item Value Reference Range Interpretation Comments Magnesium Lvl (test code = Magnesium 2.4 1.8-2.4 Lvl) [facility]2022-12-08 15:17:00 Test Item Value Reference Range Interpretation Comments Phosphorus (test code = Phosphorus) 1.7 2.5-4.5 [facility] ShorelineVafxscrVLVGKSBVK7168-06-30 15:17:00 Test Item Value Reference Range Interpretation Comments Ca Ion WB (test code = Ca Ion WB) 1.12 1.05-1.25 [facility]lineKwfoxyzACJHOGRPQ5899-77-18 15:17:00 Test Item Value Reference Range Interpretation Comments Ca Ion at pH 7.4 WB (test code = Ca Ion 1.10 1.05-1.25 at pH 7.4 WB) [facility]linePkjytyjQUBHTNLMG6897-53-62 15:17:00 Test Item Value Reference Range Interpretation Comments Magnesium Lvl (test code = Magnesium 2.4 1.8-2.4 Lvl) [facility]lineOrtjsalGRKQOAGNF7261-29-70 15:17:00 Test Item Value Reference Range Interpretation Comments Phosphorus (test code = Phosphorus) 1.7 2.5-4.5 [facility] CenterZcimjzfFXIBQMHMM0850-25-91 15:17:00 Test Item Value Reference Range Interpretation Comments HS Troponin I (test code = HS Troponin 11 I) [facility] [id number] 15:17:00 Test Item Value Reference Range Interpretation Comments Ca Ion WB (test code = Ca Ion WB) 1.12 1.05-1.25 [facility] CenterRO[facility] [id number] 15:17:00 Test Item Value Reference Range Interpretation Comments Ca Ion at pH 7.4 WB (test code = Ca Ion 1.10 1.05-1.25 at pH 7.4 WB) [facility] CenterannCARDIAC [id number] 15:17:00 Test Item Value Reference Range Interpretation Comments HS Troponin I (test code = HS Troponin 11 I) [facility]2022-12-08 15:17:00 Test Item Value Reference Range Interpretation Comments Magnesium Lvl (test code = Magnesium 2.4 1.8-2.4 Lvl) [facility]2022-12-08 15:17:00 Test Item Value Reference Range Interpretation Comments Phosphorus (test code = Phosphorus) 1.7 2.5-4.5 [facility] CenterMarsgwwRVNYYXYZH0298-37-97 15:17:00 Test Item Value Reference Range Interpretation Comments Ca Ion WB (test code = Ca Ion WB) 1.12 1.05-1.25 [facility] CenterLwiepblDFHFTPRPL6004-60-52 15:17:00 Test Item Value Reference Range Interpretation Comments Ca Ion at pH 7.4 WB (test code = Ca Ion 1.10 1.05-1.25 at pH 7.4 WB) [facility] CenterHmbousePZQRIHEOO5683-46-77 15:17:00 Test Item Value Reference Range Interpretation Comments Magnesium Lvl (test code = Magnesium 2.4 1.8-2.4 Lvl) [facility]lineMydprvgKTPEOOVRK7507-51-19 15:17:00 Test Item Value Reference Range Interpretation Comments Phosphorus (test code = Phosphorus) 1.7 2.5-4.5 [facility] CenterPkrwifcBRAXURGLP5579-84-43 15:17:00 Test Item Value Reference Range Interpretation Comments HS Troponin I (test code = HS Troponin 11 I) [facility] CenterPARFRANCISCAN CHILDREN'[id number] 15:17:00 Test Item Value Reference Range Interpretation Comments Ca Ion WB (test code = Ca Ion WB) 1.12 1.05-1.25 [facility] CenterPARJOHN R. OISHE[facility] CHILDREN'S HOSPITALROID [id number] 15:17:00 Test Item Value Reference Range Interpretation Comments Ca Ion at pH 7.4 WB (test code = Ca Ion 1.10 1.05-1.25 at pH 7.4 WB) [facility] CenterCARDIAC [id number] 15:17:00 Test Item Value Reference Range Interpretation Comments HS Troponin I (test code = HS Troponin 11 I) [facility] CenterCHEM [id number] 15:17:00 Test Item Value Reference Range Interpretation Comments Magnesium Lvl (test code = Magnesium 2.4 1.8-2.4 Lvl) [facility]2022-12-08 15:17:00 Test Item Value Reference Range Interpretation Comments Phosphorus (test code = Phosphorus) 1.7 2.5-4.5 [facility] ShorelineYsggmwlTLSBFJWRV8976-47-85 15:17:00 Test Item Value Reference Range Interpretation Comments Ca Ion WB (test code = Ca Ion WB) 1.12 1.05-1.25 [facility] S[id number] 15:17:00 Test Item Value Reference Range Interpretation Comments Ca Ion at pH 7.4 WB (test code = Ca Ion 1.10 1.05-1.25 at pH 7.4 WB) [facility] S[id number] 15:17:00 Test Item Value Reference Range Interpretation Comments Magnesium Lvl (test code = Magnesium 2.4 1.8-2.4 Lvl) [facility] ShorelineFojftemAALJPDFZM5031-96-66 15:17:00 Test Item Value Reference Range Interpretation Comments Phosphorus (test code = Phosphorus) 1.7 2.5-4.5 [facility] ShorelineXlygexiLMZUQURKH0019-70-64 15:17:00 Test Item Value Reference Range Interpretation Comments HS Troponin I (test code = HS Troponin 11 I) [facility]2022-12-08 15:17:00 Test Item Value Reference Range Interpretation Comments Ca Ion WB (test code = Ca Ion WB) 1.12 1.05-1.25 [facility]2022-12-08 15:17:00 Test Item Value Reference Range Interpretation Comments Ca Ion at pH 7.4 WB (test code = Ca Ion 1.10 1.05-1.25 at pH 7.4 WB) [facility] [id number] 15:17:00 Test Item Value Reference Range Interpretation Comments HS Troponin I (test code = HS Troponin 11 I) [facility]2022-12-08 15:17:00 Test Item Value Reference Range Interpretation Comments Magnesium Lvl (test code = Magnesium 2.4 1.8-2.4 Lvl) [facility]2022-12-08 15:17:00 Test Item Value Reference Range Interpretation Comments Phosphorus (test code = Phosphorus) 1.7 2.5-4.5 [id number] 15:17:00 Test Item Value Reference Range Interpretation Comments Ca Ion WB (test code = Ca Ion WB) 1.12 1.05-1.25 [facility] ShorelineLngjihjXHTQLLPOH0563-87-82 15:17:00 Test Item Value Reference Range Interpretation Comments Ca Ion at pH 7.4 WB (test code = Ca Ion 1.10 1.05-1.25 at pH 7.4 WB) [facility] ShorelineLgmsfliTHWQNZBKA8944-07-37 15:17:00 Test Item Value Reference Range Interpretation Comments Magnesium Lvl (test code = Magnesium 2.4 1.8-2.4 Lvl) [facility] ShorelineOvqdbdcDKKVIUGEU7696-09-06 15:17:00 Test Item Value Reference Range Interpretation Comments Phosphorus (test code = Phosphorus) 1.7 2.5-4.5 [facility] ShorelinePtanhwhJFCQGIMCG2904-89-43 15:17:00 Test Item Value Reference Range Interpretation Comments HS Troponin I (test code = HS Troponin 11 I) [facility] [id number] 15:17:00 Test Item Value Reference Range Interpretation Comments Ca Ion WB (test code = Ca Ion WB) 1.12 1.05-1.25 [facility] CenterTrustTeamROID [id number] 15:17:00 Test Item Value Reference Range Interpretation Comments Ca Ion at pH 7.4 WB (test code = Ca Ion 1.10 1.05-1.25 at pH 7.4 WB) [facility] [id number] 15:17:00 Test Item Value Reference Range Interpretation Comments HS Troponin I (test code = HS Troponin 11 I) [facility] [id number] 15:17:00 Test Item Value Reference Range Interpretation Comments Magnesium Lvl (test code = Magnesium 2.4 1.8-2.4 Lvl) [facility] [id number] 15:17:00 Test Item Value Reference Range Interpretation Comments Phosphorus (test code = Phosphorus) 1.7 2.5-4.5 [facility] CenterMgpyatzMWICKZWYO5547-44-68 15:17:00 Test Item Value Reference Range Interpretation Comments Ca Ion WB (test code = Ca Ion WB) 1.12 1.05-1.25 [facility] CenterOmidrkcYGZIWRPJF5613-06-00 15:17:00 Test Item Value Reference Range Interpretation Comments Ca Ion at pH 7.4 WB (test code = Ca Ion 1.10 1.05-1.25 at pH 7.4 WB) [facility] CenterOnboqduHUDEWSQPY8643-18-66 15:17:00 Test Item Value Reference Range Interpretation Comments Magnesium Lvl (test code = Magnesium 2.4 1.8-2.4 Lvl) [facility] CenterZaurihkNVCULWJFF6025-09-98 15:17:00 Test Item Value Reference Range Interpretation Comments Phosphorus (test code = Phosphorus) 1.7 2.5-4.5 [facility] HospitalEipvfteHKZLNWIHS0285-04-05 15:17:00 Test Item Value Reference Range Interpretation Comments HS Troponin I (test code = HS Troponin 11 I) [facility] CenterPARATHYROID [id number] 15:17:00 Test Item Value Reference Range Interpretation Comments Ca Ion WB (test code = Ca Ion WB) 1.12 1.05-1.25 [facility] CenterPARATHYROID [id number] 15:17:00 Test Item Value Reference Range Interpretation Comments Ca Ion at pH 7.4 WB (test code = Ca Ion 1.10 1.05-1.25 at pH 7.4 WB) [facility] CenterannCARDIAC [id number] 15:17:00 Test Item Value Reference Range Interpretation Comments HS Troponin I (test code = HS Troponin 11 I) [facility] [id number] 15:17:00 Test Item Value Reference Range Interpretation Comments Magnesium Lvl (test code = Magnesium 2.4 1.8-2.4 Lvl) [facility] [id number] 15:17:00 Test Item Value Reference Range Interpretation Comments Phosphorus (test code = Phosphorus) 1.7 2.5-4.5 [facility] CenterSerlgbpDJOIZJEDA7828-35-72 15:17:00 Test Item Value Reference Range Interpretation Comments Ca Ion WB (test code = Ca Ion WB) 1.12 1.05-1.25 [facility] ShorelineXleolhoQOGNPHQUZ3842-65-94 15:17:00 Test Item Value Reference Range Interpretation Comments Ca Ion at pH 7.4 WB (test code = Ca Ion 1.10 1.05-1.25 at pH 7.4 WB) [facility] ShorelineVvzfvakMQAVHKLAJ6733-11-40 15:17:00 Test Item Value Reference Range Interpretation Comments Magnesium Lvl (test code = Magnesium 2.4 1.8-2.4 Lvl) [facility] ShorelineAkbwombBSZVDHXAN9136-08-29 15:17:00 Test Item Value Reference Range Interpretation Comments Phosphorus (test code = Phosphorus) 1.7 2.5-4.5 [facility] ShorelineRyrygswEUQVYVJTP5655-71-74 15:17:00 Test Item Value Reference Range Interpretation Comments HS Troponin I (test code = HS Troponin 11 I) [facility] [id number] 15:17:00 Test Item Value Reference Range Interpretation Comments Ca Ion WB (test code = Ca Ion WB) 1.12 1.05-1.25 [facility] CenterPARATHYROID [id number] 15:17:00 Test Item Value Reference Range Interpretation Comments Ca Ion at pH 7.4 WB (test code = Ca Ion 1.10 1.05-1.25 at pH 7.4 WB) [facility] AND [id number] 23:46:00 Test Item Value Reference Range Interpretation Comments UA Sq Epi (test code = UA Sq Occasional /LPF Epi) [facility] AND [id number] 23:46:00 Test Item Value Reference Range Interpretation Comments UA WBC (test code = 1 See_Comment [Automa suze message] The UA WBC) system which ge nerated this result transmit suze reference range : <=5. The reference range was not used to interpr et this result as anselmo l/abnormal. [facility] AND [id number] 23:46:00 Test Item Value Reference Range Interpretation Comments UA RBC (test code = 14 See_Comment [Automa suze message] The UA RBC) system which ge nerated this result transmit suze reference range : <=2. The reference range was not used to interpr et this result as anselmo l/abnormal. [facility] AND [id number] 23:46:00 Test Item Value Reference Range Interpretation Comments UA Bacteria (test code = UA Occasional /HPF Bacteria) [facility] AND [id number] 23:46:00 Test Item Value Reference Range Interpretation Comments UA Mucus (test code = UA Mucus) Few /LPF [facility] AND [id number] 23:46:00 Test Item Value Reference Range Interpretation Comments UA Color (test code = Yellow *NA*(04/13/22 UA Color) 5:46 PM) [facility] AND [id number] 23:46:00 Test Item Value Reference Range Interpretation Comments UA Turbidity (test code = Clear (04/13/22 5:46 UA Turbidity) PM) [facility] AND [id number] 23:46:00 Test Item Value Reference Range Interpretation Comments UA Spec Grav (test code = UA Spec 1.020 1 Grav) [facility] AND [id number] 23:46:00 Test Item Value Reference Range Interpretation Comments UA pH (test code = UA pH) 6.5 1 5.0-8.0 [facility] AND [id number] 23:46:00 Test Item Value Reference Range Interpretation Comments UA Protein (test code Negative (04/13/22 5:46 = UA Protein) PM) [facility] AND [id number] 23:46:00 Test Item Value Reference Range Interpretation Comments UA Glucose (test code Negative (04/13/22 5:46 = UA Glucose) PM) [facility] AND [id number] 23:46:00 Test Item Value Reference Range Interpretation Comments UA Ketones (test code = Trace *ABN*(04/13/22 UA Ketones) 5:46 PM) [facility] AND [id number] 23:46:00 Test Item Value Reference Range Interpretation Comments UA Bili (test code = Negative *NA*(04/13/22 UA Bili) 5:46 PM) [facility] AND [id number] 23:46:00 Test Item Value Reference Range Interpretation Comments UA Blood (test code = Small *ABN*(04/13/22 UA Blood) 5:46 PM) [facility] [id number] 23:46:00 Test Item Value Reference Range Interpretation Comments UA Urobilinogen (test code = UA 0.2 0.1-1.0 Urobilinogen) [facility] [id number] 23:46:00 Test Item Value Reference Range Interpretation Comments UA Nitrite (test code Negative (04/13/22 5:46 = UA Nitrite) PM) [facility] [id number] 23:46:00 Test Item Value Reference Range Interpretation Comments UA Leuk Est (test Negative (04/13/22 5:46 code = UA Leuk Est) PM) [facility] [id number] 23:46:00 Test Item Value Reference Range Interpretation Comments UA Sq Epi (test code = UA Sq Occasional /LPF Epi) [facility] [id number] 23:46:00 Test Item Value Reference Range Interpretation Comments UA WBC (test code = 1 See_Comment [Automa suze message] The UA WBC) system which ge nerated this result transmit suze reference range : <=5. The reference range was not used to interpr et this result as anselmo l/abnormal. [facility] [id number] 23:46:00 Test Item Value Reference Range Interpretation Comments UA RBC (test code = 14 See_Comment [Automa suze message] The UA RBC) system which ge nerated this result transmit suze reference range : <=2. The reference range was not used to interpr et this result as anselmo l/abnormal. [facility] [id number] 23:46:00 Test Item Value Reference Range Interpretation Comments UA Bacteria (test code = UA Occasional /HPF Bacteria) [facility] [id number] 23:46:00 Test Item Value Reference Range Interpretation Comments UA Mucus (test code = UA Mucus) Few /LPF [facility] [id number] 23:46:00 Test Item Value Reference Range Interpretation Comments UA Color (test code = Yellow *NA*(04/13/22 UA Color) 5:46 PM) [facility] [id number] 23:46:00 Test Item Value Reference Range Interpretation Comments UA Turbidity (test code = Clear (04/13/22 5:46 UA Turbidity) PM) [facility] [id number] 23:46:00 Test Item Value Reference Range Interpretation Comments UA Spec Grav (test code = UA Spec 1.020 1 Grav) [facility] AND [id number] 23:46:00 Test Item Value Reference Range Interpretation Comments UA pH (test code = UA pH) 6.5 1 5.0-8.0 [facility] AND [id number] 23:46:00 Test Item Value Reference Range Interpretation Comments UA Protein (test code Negative (04/13/22 5:46 = UA Protein) PM) [facility] [id number] 23:46:00 Test Item Value Reference Range Interpretation Comments UA Glucose (test code Negative (04/13/22 5:46 = UA Glucose) PM) [facility] AND [id number] 23:46:00 Test Item Value Reference Range Interpretation Comments UA Ketones (test code = Trace *ABN*(04/13/22 UA Ketones) 5:46 PM) [facility] AND [id number] 23:46:00 Test Item Value Reference Range Interpretation Comments UA Bili (test code = Negative *NA*(04/13/22 UA Bili) 5:46 PM) [facility] AND [id number] 23:46:00 Test Item Value Reference Range Interpretation Comments UA Blood (test code = Small *ABN*(04/13/22 UA Blood) 5:46 PM) [facility] AND [id number] 23:46:00 Test Item Value Reference Range Interpretation Comments UA Urobilinogen (test code = UA 0.2 0.1-1.0 Urobilinogen) [facility] AND [id number] 23:46:00 Test Item Value Reference Range Interpretation Comments UA Nitrite (test code Negative (04/13/22 5:46 = UA Nitrite) PM) [facility] AND [id number] 23:46:00 Test Item Value Reference Range Interpretation Comments UA Leuk Est (test Negative (04/13/22 5:46 code = UA Leuk Est) PM) [facility] [id number] 23:46:00 Test Item Value Reference Range Interpretation Comments UA Sq Epi (test code = UA Sq Occasional /LPF Epi) [facility] [id number] 23:46:00 Test Item Value Reference Range Interpretation Comments UA WBC (test code = 1 See_Comment [Automa suze message] The UA WBC) system which ge nerated this result transmit suze reference range : <=5. The reference range was not used to interpr et this result as anselmo l/abnormal. [facility] [id number] 23:46:00 Test Item Value Reference Range Interpretation Comments UA RBC (test code = 14 See_Comment [Automa suze message] The UA RBC) system which ge nerated this result transmit suze reference range : <=2. The reference range was not used to interpr et this result as anselmo l/abnormal. [facility] [id number] 23:46:00 Test Item Value Reference Range Interpretation Comments UA Bacteria (test code = UA Occasional /HPF Bacteria) [facility] [id number] 23:46:00 Test Item Value Reference Range Interpretation Comments UA Mucus (test code = UA Mucus) Few /LPF [facility] [id number] 23:46:00 Test Item Value Reference Range Interpretation Comments UA Color (test code = Yellow *NA*(04/13/22 UA Color) 5:46 PM) [facility] [id number] 23:46:00 Test Item Value Reference Range Interpretation Comments UA Turbidity (test code = Clear (04/13/22 5:46 UA Turbidity) PM) [facility] [id number] 23:46:00 Test Item Value Reference Range Interpretation Comments UA Spec Grav (test code = UA Spec 1.020 1 Grav) [facility] [id number] 23:46:00 Test Item Value Reference Range Interpretation Comments UA pH (test code = UA pH) 6.5 1 5.0-8.0 [facility] [id number] 23:46:00 Test Item Value Reference Range Interpretation Comments UA Protein (test code Negative (04/13/22 5:46 = UA Protein) PM) [facility] [id number] 23:46:00 Test Item Value Reference Range Interpretation Comments UA Glucose (test code Negative (04/13/22 5:46 = UA Glucose) PM) [facility] AND [id number] 23:46:00 Test Item Value Reference Range Interpretation Comments UA Ketones (test code = Trace *ABN*(04/13/22 UA Ketones) 5:46 PM) [facility] AND [id number] 23:46:00 Test Item Value Reference Range Interpretation Comments UA Bili (test code = Negative *NA*(04/13/22 UA Bili) 5:46 PM) [facility] AND [id number] 23:46:00 Test Item Value Reference Range Interpretation Comments UA Blood (test code = Small *ABN*(04/13/22 UA Blood) 5:46 PM) [facility] AND [id number] 23:46:00 Test Item Value Reference Range Interpretation Comments UA Urobilinogen (test code = UA 0.2 0.1-1.0 Urobilinogen) [facility] AND [id number] 23:46:00 Test Item Value Reference Range Interpretation Comments UA Nitrite (test code Negative (04/13/22 5:46 = UA Nitrite) PM) [facility] AND [id number] 23:46:00 Test Item Value Reference Range Interpretation Comments UA Leuk Est (test Negative (04/13/22 5:46 code = UA Leuk Est) PM) [facility] AND [id number] 23:46:00 Test Item Value Reference Range Interpretation Comments UA Sq Epi (test code = UA Sq Occasional /LPF Epi) [facility] AND [id number] 23:46:00 Test Item Value Reference Range Interpretation Comments UA WBC (test code = 1 See_Comment [Automa suze message] The UA WBC) system which ge nerated this result transmit suze reference range : <=5. The reference range was not used to interpr et this result as anselmo l/abnormal. [facility] AND [id number] 23:46:00 Test Item Value Reference Range Interpretation Comments UA RBC (test code = 14 See_Comment [Automa suze message] The UA RBC) system which ge nerated this result transmit suze reference range : <=2. The reference range was not used to interpr et this result as anselmo l/abnormal. [facility] AND [id number] 23:46:00 Test Item Value Reference Range Interpretation Comments UA Bacteria (test code = UA Occasional /HPF Bacteria) [facility] AND [id number] 23:46:00 Test Item Value Reference Range Interpretation Comments UA Mucus (test code = UA Mucus) Few /LPF [facility] AND [id number] 23:46:00 Test Item Value Reference Range Interpretation Comments UA Color (test code = Yellow *NA*(04/13/22 UA Color) 5:46 PM) [facility] AND [id number] 23:46:00 Test Item Value Reference Range Interpretation Comments UA Turbidity (test code = Clear (04/13/22 5:46 UA Turbidity) PM) [facility] AND [id number] 23:46:00 Test Item Value Reference Range Interpretation Comments UA Spec Grav (test code = UA Spec 1.020 1 Grav) [facility] AND [id number] 23:46:00 Test Item Value Reference Range Interpretation Comments UA pH (test code = UA pH) 6.5 1 5.0-8.0 [facility] AND [id number] 23:46:00 Test Item Value Reference Range Interpretation Comments UA Protein (test code Negative (04/13/22 5:46 = UA Protein) PM) [facility] AND [id number] 23:46:00 Test Item Value Reference Range Interpretation Comments UA Glucose (test code Negative (04/13/22 5:46 = UA Glucose) PM) [facility] AND [id number] 23:46:00 Test Item Value Reference Range Interpretation Comments UA Ketones (test code = Trace *ABN*(04/13/22 UA Ketones) 5:46 PM) [facility] AND [id number] 23:46:00 Test Item Value Reference Range Interpretation Comments UA Bili (test code = Negative *NA*(04/13/22 UA Bili) 5:46 PM) [facility] AND [id number] 23:46:00 Test Item Value Reference Range Interpretation Comments UA Blood (test code = Small *ABN*(04/13/22 UA Blood) 5:46 PM) [facility] [id number] 23:46:00 Test Item Value Reference Range Interpretation Comments UA Urobilinogen (test code = UA 0.2 0.1-1.0 Urobilinogen) [facility] [id number] 23:46:00 Test Item Value Reference Range Interpretation Comments UA Nitrite (test code Negative (04/13/22 5:46 = UA Nitrite) PM) [facility] [id number] 23:46:00 Test Item Value Reference Range Interpretation Comments UA Leuk Est (test Negative (04/13/22 5:46 code = UA Leuk Est) PM) [facility] [id number] 23:46:00 Test Item Value Reference Range Interpretation Comments UA Sq Epi (test code = UA Sq Occasional /LPF Epi) [facility] [id number] 23:46:00 Test Item Value Reference Range Interpretation Comments UA WBC (test code = 1 See_Comment [Automa suze message] The UA WBC) system which ge nerated this result transmit suze reference range : <=5. The reference range was not used to interpr et this result as anselmo l/abnormal. [facility] [id number] 23:46:00 Test Item Value Reference Range Interpretation Comments UA RBC (test code = 14 See_Comment [Automa suze message] The UA RBC) system which ge nerated this result transmit suze reference range : <=2. The reference range was not used to interpr et this result as anselmo l/abnormal. [facility] [id number] 23:46:00 Test Item Value Reference Range Interpretation Comments UA Bacteria (test code = UA Occasional /HPF Bacteria) [facility] [id number] 23:46:00 Test Item Value Reference Range Interpretation Comments UA Mucus (test code = UA Mucus) Few /LPF [facility] [id number] 23:46:00 Test Item Value Reference Range Interpretation Comments UA Color (test code = Yellow *NA*(04/13/22 UA Color) 5:46 PM) [facility] [id number] 23:46:00 Test Item Value Reference Range Interpretation Comments UA Turbidity (test code = Clear (04/13/22 5:46 UA Turbidity) PM) [facility] AND [id number] 23:46:00 Test Item Value Reference Range Interpretation Comments UA Spec Grav (test code = UA Spec 1.020 1 Grav) [facility] AND [id number] 23:46:00 Test Item Value Reference Range Interpretation Comments UA pH (test code = UA pH) 6.5 1 5.0-8.0 [facility] AND [id number] 23:46:00 Test Item Value Reference Range Interpretation Comments UA Protein (test code Negative (04/13/22 5:46 = UA Protein) PM) [facility] AND [id number] 23:46:00 Test Item Value Reference Range Interpretation Comments UA Glucose (test code Negative (04/13/22 5:46 = UA Glucose) PM) [facility] AND [id number] 23:46:00 Test Item Value Reference Range Interpretation Comments UA Ketones (test code = Trace *ABN*(04/13/22 UA Ketones) 5:46 PM) [facility] AND [id number] 23:46:00 Test Item Value Reference Range Interpretation Comments UA Bili (test code = Negative *NA*(04/13/22 UA Bili) 5:46 PM) [facility] AND [id number] 23:46:00 Test Item Value Reference Range Interpretation Comments UA Blood (test code = Small *ABN*(04/13/22 UA Blood) 5:46 PM) [facility] AND [id number] 23:46:00 Test Item Value Reference Range Interpretation Comments UA Urobilinogen (test code = UA 0.2 0.1-1.0 Urobilinogen) [facility] AND [id number] 23:46:00 Test Item Value Reference Range Interpretation Comments UA Nitrite (test code Negative (04/13/22 5:46 = UA Nitrite) PM) [facility] AND [id number] 23:46:00 Test Item Value Reference Range Interpretation Comments UA Leuk Est (test Negative (04/13/22 5:46 code = UA Leuk Est) PM) [facility] AND [id number] 23:46:00 Test Item Value Reference Range Interpretation Comments UA Sq Epi (test code = UA Sq Occasional /LPF Epi) [facility] [id number] 23:46:00 Test Item Value Reference Range Interpretation Comments UA WBC (test code = 1 See_Comment [Automa suze message] The UA WBC) system which ge nerated this result transmit suze reference range : <=5. The reference range was not used to interpr et this result as anselmo l/abnormal. [facility] [id number] 23:46:00 Test Item Value Reference Range Interpretation Comments UA RBC (test code = 14 See_Comment [Automa suze message] The UA RBC) system which ge nerated this result transmit suze reference range : <=2. The reference range was not used to interpr et this result as anselmo l/abnormal. [facility] [id number] 23:46:00 Test Item Value Reference Range Interpretation Comments UA Bacteria (test code = UA Occasional /HPF Bacteria) [facility] [id number] 23:46:00 Test Item Value Reference Range Interpretation Comments UA Mucus (test code = UA Mucus) Few /LPF [facility] [id number] 23:46:00 Test Item Value Reference Range Interpretation Comments UA Color (test code = Yellow *NA*(04/13/22 UA Color) 5:46 PM) [facility] [id number] 23:46:00 Test Item Value Reference Range Interpretation Comments UA Turbidity (test code = Clear (04/13/22 5:46 UA Turbidity) PM) [facility] [id number] 23:46:00 Test Item Value Reference Range Interpretation Comments UA Spec Grav (test code = UA Spec 1.020 1 Grav) [facility] [id number] 23:46:00 Test Item Value Reference Range Interpretation Comments UA pH (test code = UA pH) 6.5 1 5.0-8.0 [facility] [id number] 23:46:00 Test Item Value Reference Range Interpretation Comments UA Protein (test code Negative (04/13/22 5:46 = UA Protein) PM) [facility] [id number] 23:46:00 Test Item Value Reference Range Interpretation Comments UA Glucose (test code Negative (04/13/22 5:46 = UA Glucose) PM) [facility] [id number] 23:46:00 Test Item Value Reference Range Interpretation Comments UA Ketones (test code = Trace *ABN*(04/13/22 UA Ketones) 5:46 PM) [facility] [id number] 23:46:00 Test Item Value Reference Range Interpretation Comments UA Bili (test code = Negative *NA*(04/13/22 UA Bili) 5:46 PM) [facility] [id number] 23:46:00 Test Item Value Reference Range Interpretation Comments UA Blood (test code = Small *ABN*(04/13/22 UA Blood) 5:46 PM) [facility] [id number] 23:46:00 Test Item Value Reference Range Interpretation Comments UA Urobilinogen (test code = UA 0.2 0.1-1.0 Urobilinogen) [facility] [id number] 23:46:00 Test Item Value Reference Range Interpretation Comments UA Nitrite (test code Negative (04/13/22 5:46 = UA Nitrite) PM) [facility] [id number] 23:46:00 Test Item Value Reference Range Interpretation Comments UA Leuk Est (test Negative (04/13/22 5:46 code = UA Leuk Est) PM) [facility] [id number] 23:46:00 Test Item Value Reference Range Interpretation Comments UA Sq Epi (test code = UA Sq Occasional /LPF Epi) [facility] [id number] 23:46:00 Test Item Value Reference Range Interpretation Comments UA WBC (test code = 1 See_Comment [Automa suze message] The UA WBC) system which ge nerated this result transmit suze reference range : <=5. The reference range was not used to interpr et this result as anselmo l/abnormal. [facility] [id number] 23:46:00 Test Item Value Reference Range Interpretation Comments UA RBC (test code = 14 See_Comment [Automa suze message] The UA RBC) system which ge nerated this result transmit suze reference range : <=2. The reference range was not used to interpr et this result as anselmo l/abnormal. [facility] [id number] 23:46:00 Test Item Value Reference Range Interpretation Comments UA Bacteria (test code = UA Occasional /HPF Bacteria) [facility] AND [id number] 23:46:00 Test Item Value Reference Range Interpretation Comments UA Mucus (test code = UA Mucus) Few /LPF [facility] AND [id number] 23:46:00 Test Item Value Reference Range Interpretation Comments UA Color (test code = Yellow *NA*(04/13/22 UA Color) 5:46 PM) [facility] AND [id number] 23:46:00 Test Item Value Reference Range Interpretation Comments UA Turbidity (test code = Clear (04/13/22 5:46 UA Turbidity) PM) [facility] AND [id number] 23:46:00 Test Item Value Reference Range Interpretation Comments UA Spec Grav (test code = UA Spec 1.020 1 Grav) [facility] AND [id number] 23:46:00 Test Item Value Reference Range Interpretation Comments UA pH (test code = UA pH) 6.5 1 5.0-8.0 [facility] AND [id number] 23:46:00 Test Item Value Reference Range Interpretation Comments UA Protein (test code Negative (04/13/22 5:46 = UA Protein) PM) [facility] AND [id number] 23:46:00 Test Item Value Reference Range Interpretation Comments UA Glucose (test code Negative (04/13/22 5:46 = UA Glucose) PM) [facility] AND [id number] 23:46:00 Test Item Value Reference Range Interpretation Comments UA Ketones (test code = Trace *ABN*(04/13/22 UA Ketones) 5:46 PM) [facility] AND [id number] 23:46:00 Test Item Value Reference Range Interpretation Comments UA Bili (test code = Negative *NA*(04/13/22 UA Bili) 5:46 PM) [facility] AND [id number] 23:46:00 Test Item Value Reference Range Interpretation Comments UA Blood (test code = Small *ABN*(04/13/22 UA Blood) 5:46 PM) [facility] AND [id number] 23:46:00 Test Item Value Reference Range Interpretation Comments UA Urobilinogen (test code = UA 0.2 0.1-1.0 Urobilinogen) [facility] [id number] 23:46:00 Test Item Value Reference Range Interpretation Comments UA Nitrite (test code Negative (04/13/22 5:46 = UA Nitrite) PM) [facility] [id number] 23:46:00 Test Item Value Reference Range Interpretation Comments UA Leuk Est (test Negative (04/13/22 5:46 code = UA Leuk Est) PM) [facility] [id number] 23:46:00 Test Item Value Reference Range Interpretation Comments UA Sq Epi (test code = UA Sq Occasional /LPF Epi) [facility] [id number] 23:46:00 Test Item Value Reference Range Interpretation Comments UA WBC (test code = 1 See_Comment [Automa suze message] The UA WBC) system which ge nerated this result transmit suze reference range : <=5. The reference range was not used to interpr et this result as anselmo l/abnormal. [facility] [id number] 23:46:00 Test Item Value Reference Range Interpretation Comments UA RBC (test code = 14 See_Comment [Automa suze message] The UA RBC) system which ge nerated this result transmit suze reference range : <=2. The reference range was not used to interpr et this result as anselmo l/abnormal. [facility] [id number] 23:46:00 Test Item Value Reference Range Interpretation Comments UA Bacteria (test code = UA Occasional /HPF Bacteria) [facility] [id number] 23:46:00 Test Item Value Reference Range Interpretation Comments UA Mucus (test code = UA Mucus) Few /LPF [facility] [id number] 23:46:00 Test Item Value Reference Range Interpretation Comments UA Color (test code = Yellow *NA*(04/13/22 UA Color) 5:46 PM) [facility] [id number] 23:46:00 Test Item Value Reference Range Interpretation Comments UA Turbidity (test code = Clear (04/13/22 5:46 UA Turbidity) PM) [facility] [id number] 23:46:00 Test Item Value Reference Range Interpretation Comments UA Spec Grav (test code = UA Spec 1.020 1 Grav) [facility] AND [id number] 23:46:00 Test Item Value Reference Range Interpretation Comments UA pH (test code = UA pH) 6.5 1 5.0-8.0 [facility] AND [id number] 23:46:00 Test Item Value Reference Range Interpretation Comments UA Protein (test code Negative (04/13/22 5:46 = UA Protein) PM) [facility] AND [id number] 23:46:00 Test Item Value Reference Range Interpretation Comments UA Glucose (test code Negative (04/13/22 5:46 = UA Glucose) PM) [facility] AND [id number] 23:46:00 Test Item Value Reference Range Interpretation Comments UA Ketones (test code = Trace *ABN*(04/13/22 UA Ketones) 5:46 PM) [facility] AND [id number] 23:46:00 Test Item Value Reference Range Interpretation Comments UA Bili (test code = Negative *NA*(04/13/22 UA Bili) 5:46 PM) [facility] AND [id number] 23:46:00 Test Item Value Reference Range Interpretation Comments UA Blood (test code = Small *ABN*(04/13/22 UA Blood) 5:46 PM) [facility] AND [id number] 23:46:00 Test Item Value Reference Range Interpretation Comments UA Urobilinogen (test code = UA 0.2 0.1-1.0 Urobilinogen) [facility] AND [id number] 23:46:00 Test Item Value Reference Range Interpretation Comments UA Nitrite (test code Negative (04/13/22 5:46 = UA Nitrite) PM) [facility] AND [id number] 23:46:00 Test Item Value Reference Range Interpretation Comments UA Leuk Est (test Negative (04/13/22 5:46 code = UA Leuk Est) PM) [facility] AND [id number] 23:46:00 Test Item Value Reference Range Interpretation Comments UA Sq Epi (test code = UA Sq Occasional /LPF Epi) [facility] AND [id number] 23:46:00 Test Item Value Reference Range Interpretation Comments UA WBC (test code = 1 See_Comment [Automa suze message] The UA WBC) system which ge nerated this result transmit suze reference range : <=5. The reference range was not used to interpr et this result as anselmo l/abnormal. [facility] [id number] 23:46:00 Test Item Value Reference Range Interpretation Comments UA RBC (test code = 14 See_Comment [Automa suze message] The UA RBC) system which ge nerated this result transmit suze reference range : <=2. The reference range was not used to interpr et this result as anselmo l/abnormal. [facility] [id number] 23:46:00 Test Item Value Reference Range Interpretation Comments UA Bacteria (test code = UA Occasional /HPF Bacteria) [facility] [id number] 23:46:00 Test Item Value Reference Range Interpretation Comments UA Mucus (test code = UA Mucus) Few /LPF [facility] [id number] 23:46:00 Test Item Value Reference Range Interpretation Comments UA Color (test code = Yellow *NA*(04/13/22 UA Color) 5:46 PM) [facility] [id number] 23:46:00 Test Item Value Reference Range Interpretation Comments UA Turbidity (test code = Clear (04/13/22 5:46 UA Turbidity) PM) [facility] [id number] 23:46:00 Test Item Value Reference Range Interpretation Comments UA Spec Grav (test code = UA Spec 1.020 1 Grav) [facility] [id number] 23:46:00 Test Item Value Reference Range Interpretation Comments UA pH (test code = UA pH) 6.5 1 5.0-8.0 [facility] [id number] 23:46:00 Test Item Value Reference Range Interpretation Comments UA Protein (test code Negative (04/13/22 5:46 = UA Protein) PM) [facility] [id number] 23:46:00 Test Item Value Reference Range Interpretation Comments UA Glucose (test code Negative (04/13/22 5:46 = UA Glucose) PM) [facility] [id number] 23:46:00 Test Item Value Reference Range Interpretation Comments UA Ketones (test code = Trace *ABN*(04/13/22 UA Ketones) 5:46 PM) [facility] [id number] 23:46:00 Test Item Value Reference Range Interpretation Comments UA Bili (test code = Negative *NA*(04/13/22 UA Bili) 5:46 PM) [facility] [id number] 23:46:00 Test Item Value Reference Range Interpretation Comments UA Blood (test code = Small *ABN*(04/13/22 UA Blood) 5:46 PM) [facility] [id number] 23:46:00 Test Item Value Reference Range Interpretation Comments UA Urobilinogen (test code = UA 0.2 0.1-1.0 Urobilinogen) [facility] [id number] 23:46:00 Test Item Value Reference Range Interpretation Comments UA Nitrite (test code Negative (04/13/22 5:46 = UA Nitrite) PM) [facility] [id number] 23:46:00 Test Item Value Reference Range Interpretation Comments UA Leuk Est (test Negative (04/13/22 5:46 code = UA Leuk Est) PM) [facility] [id number] 23:46:00 Test Item Value Reference Range Interpretation Comments UA Sq Epi (test code = UA Sq Occasional /LPF Epi) [facility] [id number] 23:46:00 Test Item Value Reference Range Interpretation Comments UA WBC (test code = 1 See_Comment [Automa suze message] The UA WBC) system which ge nerated this result transmit suze reference range : <=5. The reference range was not used to interpr et this result as anselmo l/abnormal. [facility] [id number] 23:46:00 Test Item Value Reference Range Interpretation Comments UA RBC (test code = 14 See_Comment [Automa suze message] The UA RBC) system which ge nerated this result transmit suze reference range : <=2. The reference range was not used to interpr et this result as anselmo l/abnormal. [facility] [id number] 23:46:00 Test Item Value Reference Range Interpretation Comments UA Bacteria (test code = UA Occasional /HPF Bacteria) [facility] AND [id number] 23:46:00 Test Item Value Reference Range Interpretation Comments UA Mucus (test code = UA Mucus) Few /LPF [facility] AND [id number] 23:46:00 Test Item Value Reference Range Interpretation Comments UA Color (test code = Yellow *NA*(04/13/22 UA Color) 5:46 PM) [facility] AND [id number] 23:46:00 Test Item Value Reference Range Interpretation Comments UA Turbidity (test code = Clear (04/13/22 5:46 UA Turbidity) PM) [facility] AND [id number] 23:46:00 Test Item Value Reference Range Interpretation Comments UA Spec Grav (test code = UA Spec 1.020 1 Grav) [facility] AND [id number] 23:46:00 Test Item Value Reference Range Interpretation Comments UA pH (test code = UA pH) 6.5 1 5.0-8.0 [facility] AND [id number] 23:46:00 Test Item Value Reference Range Interpretation Comments UA Protein (test code Negative (04/13/22 5:46 = UA Protein) PM) [facility] AND [id number] 23:46:00 Test Item Value Reference Range Interpretation Comments UA Glucose (test code Negative (04/13/22 5:46 = UA Glucose) PM) [facility] AND [id number] 23:46:00 Test Item Value Reference Range Interpretation Comments UA Ketones (test code = Trace *ABN*(04/13/22 UA Ketones) 5:46 PM) [facility] AND [id number] 23:46:00 Test Item Value Reference Range Interpretation Comments UA Bili (test code = Negative *NA*(04/13/22 UA Bili) 5:46 PM) [facility] AND [id number] 23:46:00 Test Item Value Reference Range Interpretation Comments UA Blood (test code = Small *ABN*(04/13/22 UA Blood) 5:46 PM) [facility] AND [id number] 23:46:00 Test Item Value Reference Range Interpretation Comments UA Urobilinogen (test code = UA 0.2 0.1-1.0 Urobilinogen) [facility] AND [id number] 23:46:00 Test Item Value Reference Range Interpretation Comments UA Nitrite (test code Negative (04/13/22 5:46 = UA Nitrite) PM) [facility] AND [id number] 23:46:00 Test Item Value Reference Range Interpretation Comments UA Leuk Est (test Negative (04/13/22 5:46 code = UA Leuk Est) PM) [facility]2022-12-07 18:05:00 Test Item Value Reference Range Interpretation Comments Lactic Acid Lvl (test code = Lactic 0.7 0.5-2.2 Acid Lvl) [id number] 18:05:00 Test Item Value Reference Range Interpretation Comments Lactic Acid Lvl (test code = Lactic 0.7 0.5-2.2 Acid Lvl) [facility]2022-12-07 18:05:00 Test Item Value Reference Range Interpretation Comments Lactic Acid Lvl (test code = Lactic 0.7 0.5-2.2 Acid Lvl) [id number] 18:05:00 Test Item Value Reference Range Interpretation Comments Lactic Acid Lvl (test code = Lactic 0.7 0.5-2.2 Acid Lvl) [facility]2022-12-07 18:05:00 Test Item Value Reference Range Interpretation Comments Lactic Acid Lvl (test code = Lactic 0.7 0.5-2.2 Acid Lvl) [place] 683112-12-07 18:05:00 Test Item Value Reference Range Interpretation Comments Lactic Acid Lvl (test code = Lactic 0.7 0.5-2.2 Acid Lvl) [facility]2022-12-07 18:05:00 Test Item Value Reference Range Interpretation Comments Lactic Acid Lvl (test code = Lactic 0.7 0.5-2.2 Acid Lvl) [id number] 18:05:00 Test Item Value Reference Range Interpretation Comments Lactic Acid Lvl (test code = Lactic 0.7 0.5-2.2 Acid Lvl) [facility]2022-12-07 18:05:00 Test Item Value Reference Range Interpretation Comments Lactic Acid Lvl (test code = Lactic 0.7 0.5-2.2 Acid Lvl) [address]12-07 18:05:00 Test Item Value Reference Range Interpretation Comments Lactic Acid Lvl (test code = Lactic 0.7 0.5-2.2 Acid Lvl) [place] [id number] 18:05:00 Test Item Value Reference Range Interpretation Comments Lactic Acid Lvl (test code = Lactic 0.7 0.5-2.2 Acid Lvl) [address]12-07 18:05:00 Test Item Value Reference Range Interpretation Comments Lactic Acid Lvl (test code = Lactic 0.7 0.5-2.2 Acid Lvl) [address]12-07 18:05:00 Test Item Value Reference Range Interpretation Comments Lactic Acid Lvl (test code = Lactic 0.7 0.5-2.2 Acid Lvl) [address]12-07 18:05:00 Test Item Value Reference Range Interpretation Comments Lactic Acid Lvl (test code = Lactic 0.7 0.5-2.2 Acid Lvl) [place] [id number] 18:05:00 Test Item Value Reference Range Interpretation Comments Lactic Acid Lvl (test code = Lactic 0.7 0.5-2.2 Acid Lvl) [address]12-07 18:05:00 Test Item Value Reference Range Interpretation Comments Lactic Acid Lvl (test code = Lactic 0.7 0.5-2.2 Acid Lvl) [address]12-07 14:52:00 Test Item Value Reference Range Interpretation Comments Lactic Acid Lvl (test code = Lactic 2.5 0.5-2.2 Acid Lvl) [place] [address]-12-07 14:52:00 Test Item Value Reference Range Interpretation Comments Lactic Acid Lvl (test code = Lactic 2.5 0.5-2.2 Acid Lvl) [place] [address]-12-07 14:52:00 Test Item Value Reference Range Interpretation Comments Lactic Acid Lvl (test code = Lactic 2.5 0.5-2.2 Acid Lvl) [place] [address]-12-07 14:52:00 Test Item Value Reference Range Interpretation Comments Lactic Acid Lvl (test code = Lactic 2.5 0.5-2.2 Acid Lvl) [facility]2022-12-07 14:52:00 Test Item Value Reference Range Interpretation Comments Lactic Acid Lvl (test code = Lactic 2.5 0.5-2.2 Acid Lvl) [place] [id number] 14:52:00 Test Item Value Reference Range Interpretation Comments Lactic Acid Lvl (test code = Lactic 2.5 0.5-2.2 Acid Lvl) [place] [id number] 14:52:00 Test Item Value Reference Range Interpretation Comments Lactic Acid Lvl (test code = Lactic 2.5 0.5-2.2 Acid Lvl) [place] [id number] 14:52:00 Test Item Value Reference Range Interpretation Comments Lactic Acid Lvl (test code = Lactic 2.5 0.5-2.2 Acid Lvl) [place] 683112-12-07 05:00:00 Test Item Value Reference Range Interpretation Comments U Amph Scr (test code Positive *ABN*(04/12/22 = U Amph Scr) 11:00 PM) [id number] 05:00:00 Test Item Value Reference Range Interpretation Comments U Sruthi Scr (test code Negative *NA*(04/12/22 = U Sruthi Scr) 11:00 PM) [id number] 05:00:00 Test Item Value Reference Range Interpretation Comments U Benzodiaz Scr (test Negative *NA*(04/12/22 code = U Benzodiaz Scr) 11:00 PM) [facility]lineNcgksrjTOLJQXOVE0700-38-45 05:00:00 Test Item Value Reference Range Interpretation Comments U Cocaine Scr (test Negative *NA*(04/12/22 code = U Cocaine Scr) 11:00 PM) [place] 683112-12-07 05:00:00 Test Item Value Reference Range Interpretation Comments U Cannab Scr (test Negative *NA*(04/12/22 code = U Cannab Scr) 11:00 PM) [facility]lineNtvijhrBOUVHRXSO6641-11-10 05:00:00 Test Item Value Reference Range Interpretation Comments U Opiate Scr (test Negative *NA*(04/12/22 code = U Opiate Scr) 11:00 PM) [id number] 05:00:00 Test Item Value Reference Range Interpretation Comments U Phencyclidine Scr (test Negative code = U Phencyclidine *NA*(04/12/22 11:00 Scr) PM) [facility] [id number] 05:00:00 Test Item Value Reference Range Interpretation Comments UDS Note (test code = See Note (04/12/22 11:00 UDS Note) PM) [facility] [id number] 05:00:00 Test Item Value Reference Range Interpretation Comments U Amph Scr (test code Positive *ABN*(04/12/22 = U Amph Scr) 11:00 PM) [facility] [id number] 05:00:00 Test Item Value Reference Range Interpretation Comments U Sruthi Scr (test code Negative *NA*(04/12/22 = U Sruthi Scr) 11:00 PM) [facility] [id number] 05:00:00 Test Item Value Reference Range Interpretation Comments U Benzodiaz Scr (test Negative *NA*(04/12/22 code = U Benzodiaz Scr) 11:00 PM) [facility] [id number] 05:00:00 Test Item Value Reference Range Interpretation Comments U Cocaine Scr (test Negative *NA*(04/12/22 code = U Cocaine Scr) 11:00 PM) [facility] [id number] 05:00:00 Test Item Value Reference Range Interpretation Comments U Cannab Scr (test Negative *NA*(04/12/22 code = U Cannab Scr) 11:00 PM) [facility] [id number] 05:00:00 Test Item Value Reference Range Interpretation Comments U Opiate Scr (test Negative *NA*(04/12/22 code = U Opiate Scr) 11:00 PM) [facility] [id number] 05:00:00 Test Item Value Reference Range Interpretation Comments U Phencyclidine Scr (test Negative code = U Phencyclidine *NA*(04/12/22 11:00 Scr) PM) [facility] [id number] 05:00:00 Test Item Value Reference Range Interpretation Comments UDS Note (test code = See Note (04/12/22 11:00 UDS Note) PM) [facility] Center[id number] 05:00:00 Test Item Value Reference Range Interpretation Comments U Amph Scr (test code Positive *ABN*(04/12/22 = U Amph Scr) 11:00 PM) [facility] [id number] 05:00:00 Test Item Value Reference Range Interpretation Comments U Sruthi Scr (test code Negative *NA*(04/12/22 = U Sruthi Scr) 11:00 PM) [facility] CenterCbwuudwDHSNHMRNX3253-27-25 05:00:00 Test Item Value Reference Range Interpretation Comments U Benzodiaz Scr (test Negative *NA*(04/12/22 code = U Benzodiaz Scr) 11:00 PM) [facility] CenterWxdxdqaXVEUWCYFG8060-28-18 05:00:00 Test Item Value Reference Range Interpretation Comments U Cocaine Scr (test Negative *NA*(04/12/22 code = U Cocaine Scr) 11:00 PM) [facility] CenterTjoandfDXUDEVYVS9068-81-50 05:00:00 Test Item Value Reference Range Interpretation Comments U Cannab Scr (test Negative *NA*(04/12/22 code = U Cannab Scr) 11:00 PM) [facility] CenterOsomkcfCFNDHIHBD0022-23-06 05:00:00 Test Item Value Reference Range Interpretation Comments U Opiate Scr (test Negative *NA*(04/12/22 code = U Opiate Scr) 11:00 PM) [facility] [id number] 05:00:00 Test Item Value Reference Range Interpretation Comments U Phencyclidine Scr (test Negative code = U Phencyclidine *NA*(04/12/22 11:00 Scr) PM) [facility] CenterKakzhfvFYNYAGHCE8210-15-53 05:00:00 Test Item Value Reference Range Interpretation Comments UDS Note (test code = See Note (04/12/22 11:00 UDS Note) PM) [facility] [id number] 05:00:00 Test Item Value Reference Range Interpretation Comments U Amph Scr (test code Positive *ABN*(04/12/22 = U Amph Scr) 11:00 PM) [facility] [id number] 05:00:00 Test Item Value Reference Range Interpretation Comments U Sruthi Scr (test code Negative *NA*(04/12/22 = U Sruthi Scr) 11:00 PM) [facility] [id number] 05:00:00 Test Item Value Reference Range Interpretation Comments U Benzodiaz Scr (test Negative *NA*(04/12/22 code = U Benzodiaz Scr) 11:00 PM) [facility] [id number] 05:00:00 Test Item Value Reference Range Interpretation Comments U Cocaine Scr (test Negative *NA*(04/12/22 code = U Cocaine Scr) 11:00 PM) [facility] [id number] 05:00:00 Test Item Value Reference Range Interpretation Comments U Cannab Scr (test Negative *NA*(04/12/22 code = U Cannab Scr) 11:00 PM) [facility] [id number] 05:00:00 Test Item Value Reference Range Interpretation Comments U Opiate Scr (test Negative *NA*(04/12/22 code = U Opiate Scr) 11:00 PM) [facility] [id number] 05:00:00 Test Item Value Reference Range Interpretation Comments U Phencyclidine Scr (test Negative code = U Phencyclidine *NA*(04/12/22 11:00 Scr) PM) [facility] [id number] 05:00:00 Test Item Value Reference Range Interpretation Comments UDS Note (test code = See Note (04/12/22 11:00 UDS Note) PM) [facility] [id number] 05:00:00 Test Item Value Reference Range Interpretation Comments U Amph Scr (test code Positive *ABN*(04/12/22 = U Amph Scr) 11:00 PM) [facility] QjorbpxBWIRWXPKT5477-80-54 05:00:00 Test Item Value Reference Range Interpretation Comments U Sruthi Scr (test code Negative *NA*(04/12/22 = U Sruthi Scr) 11:00 PM) [facility]BqkimflZLLBKYISK7466-44-50 05:00:00 Test Item Value Reference Range Interpretation Comments U Benzodiaz Scr (test Negative *NA*(04/12/22 code = U Benzodiaz Scr) 11:00 PM) [facility] PpmsiqnEZMLNYGID4123-04-59 05:00:00 Test Item Value Reference Range Interpretation Comments U Cocaine Scr (test Negative *NA*(04/12/22 code = U Cocaine Scr) 11:00 PM) [facility] OnhxwiqLCPZMKNVN9994-83-08 05:00:00 Test Item Value Reference Range Interpretation Comments U Cannab Scr (test Negative *NA*(04/12/22 code = U Cannab Scr) 11:00 PM) [facility] SfdyljlNBUAFNHKK7555-95-01 05:00:00 Test Item Value Reference Range Interpretation Comments U Opiate Scr (test Negative *NA*(04/12/22 code = U Opiate Scr) 11:00 PM) [facility] QhvfsioCNDERNKYJ8843-15-42 05:00:00 Test Item Value Reference Range Interpretation Comments U Phencyclidine Scr (test Negative code = U Phencyclidine *NA*(04/12/22 11:00 Scr) PM) [facility] UpqmijdAICOSCKJQ6029-10-44 05:00:00 Test Item Value Reference Range Interpretation Comments UDS Note (test code = See Note (04/12/22 11:00 UDS Note) PM) [facility] [id number] 05:00:00 Test Item Value Reference Range Interpretation Comments U Amph Scr (test code Positive *ABN*(04/12/22 = U Amph Scr) 11:00 PM) [facility] [id number] 05:00:00 Test Item Value Reference Range Interpretation Comments U Sruthi Scr (test code Negative *NA*(04/12/22 = U Sruthi Scr) 11:00 PM) [facility] [id number] 05:00:00 Test Item Value Reference Range Interpretation Comments U Benzodiaz Scr (test Negative *NA*(04/12/22 code = U Benzodiaz Scr) 11:00 PM) [facility] [id number] 05:00:00 Test Item Value Reference Range Interpretation Comments U Cocaine Scr (test Negative *NA*(04/12/22 code = U Cocaine Scr) 11:00 PM) [facility] [id number] 05:00:00 Test Item Value Reference Range Interpretation Comments U Cannab Scr (test Negative *NA*(04/12/22 code = U Cannab Scr) 11:00 PM) [facility] [id number] 05:00:00 Test Item Value Reference Range Interpretation Comments U Opiate Scr (test Negative *NA*(04/12/22 code = U Opiate Scr) 11:00 PM) [facility] [id number] 05:00:00 Test Item Value Reference Range Interpretation Comments U Phencyclidine Scr (test Negative code = U Phencyclidine *NA*(04/12/22 11:00 Scr) PM) [facility] [id number] 05:00:00 Test Item Value Reference Range Interpretation Comments UDS Note (test code = See Note (04/12/22 11:00 UDS Note) PM) [facility] CenterOaequcaIMBBOTPBO6993-84-72 05:00:00 Test Item Value Reference Range Interpretation Comments U Amph Scr (test code Positive *ABN*(04/12/22 = U Amph Scr) 11:00 PM) [facility] AkbvrmvVVXBKKJTB4493-56-43 05:00:00 Test Item Value Reference Range Interpretation Comments U Sruthi Scr (test code Negative *NA*(04/12/22 = U Sruthi Scr) 11:00 PM) [facility] LwlcwnsLUBZAVEVO3869-82-37 05:00:00 Test Item Value Reference Range Interpretation Comments U Benzodiaz Scr (test Negative *NA*(04/12/22 code = U Benzodiaz Scr) 11:00 PM) [facility] CenterWehpukvNAFGCEWPA5885-83-60 05:00:00 Test Item Value Reference Range Interpretation Comments U Cocaine Scr (test Negative *NA*(04/12/22 code = U Cocaine Scr) 11:00 PM) [facility] XlknargQMZWSQFLU2158-48-94 05:00:00 Test Item Value Reference Range Interpretation Comments U Cannab Scr (test Negative *NA*(04/12/22 code = U Cannab Scr) 11:00 PM) [facility] CenterWaxsrkgGFBCTZXST3534-42-33 05:00:00 Test Item Value Reference Range Interpretation Comments U Opiate Scr (test Negative *NA*(04/12/22 code = U Opiate Scr) 11:00 PM) [facility] CenterQoachubDRGPEHMFJ8149-52-89 05:00:00 Test Item Value Reference Range Interpretation Comments U Phencyclidine Scr (test Negative code = U Phencyclidine *NA*(04/12/22 11:00 Scr) PM) [facility] CenterAfygcydEZQBPQAPR4810-18-62 05:00:00 Test Item Value Reference Range Interpretation Comments UDS Note (test code = See Note (04/12/22 11:00 UDS Note) PM) [facility] [id number] 05:00:00 Test Item Value Reference Range Interpretation Comments U Amph Scr (test code Positive *ABN*(04/12/22 = U Amph Scr) 11:00 PM) [facility] [id number] 05:00:00 Test Item Value Reference Range Interpretation Comments U Sruthi Scr (test code Negative *NA*(04/12/22 = U Sruthi Scr) 11:00 PM) [facility] [id number] 05:00:00 Test Item Value Reference Range Interpretation Comments U Benzodiaz Scr (test Negative *NA*(04/12/22 code = U Benzodiaz Scr) 11:00 PM) [facility] [id number] 05:00:00 Test Item Value Reference Range Interpretation Comments U Cocaine Scr (test Negative *NA*(04/12/22 code = U Cocaine Scr) 11:00 PM) [facility] [id number] 05:00:00 Test Item Value Reference Range Interpretation Comments U Cannab Scr (test Negative *NA*(04/12/22 code = U Cannab Scr) 11:00 PM) [facility] [id number] 05:00:00 Test Item Value Reference Range Interpretation Comments U Opiate Scr (test Negative *NA*(04/12/22 code = U Opiate Scr) 11:00 PM) [facility] [id number] 05:00:00 Test Item Value Reference Range Interpretation Comments U Phencyclidine Scr (test Negative code = U Phencyclidine *NA*(04/12/22 11:00 Scr) PM) [facility] [id number] 05:00:00 Test Item Value Reference Range Interpretation Comments UDS Note (test code = See Note (04/12/22 11:00 UDS Note) PM) [facility] [id number] 05:00:00 Test Item Value Reference Range Interpretation Comments U Amph Scr (test code Positive *ABN*(04/12/22 = U Amph Scr) 11:00 PM) [facility] HprlhjlWQXMCACJL3866-02-21 05:00:00 Test Item Value Reference Range Interpretation Comments U Sruthi Scr (test code Negative *NA*(04/12/22 = U Sruthi Scr) 11:00 PM) [facility] CenterQmptthmZOHEVPSLU0862-25-17 05:00:00 Test Item Value Reference Range Interpretation Comments U Benzodiaz Scr (test Negative *NA*(04/12/22 code = U Benzodiaz Scr) 11:00 PM) [facility] CenterBrgiqnlZZRFSNVUY8470-27-85 05:00:00 Test Item Value Reference Range Interpretation Comments U Cocaine Scr (test Negative *NA*(04/12/22 code = U Cocaine Scr) 11:00 PM) [facility] CenterApqrqhbMXRYLHIBX2102-12-36 05:00:00 Test Item Value Reference Range Interpretation Comments U Cannab Scr (test Negative *NA*(04/12/22 code = U Cannab Scr) 11:00 PM) [facility] CenterVsbqoihYCVWZVRYJ6915-95-22 05:00:00 Test Item Value Reference Range Interpretation Comments U Opiate Scr (test Negative *NA*(04/12/22 code = U Opiate Scr) 11:00 PM) [facility]IuwgzvvLSGTXEMVD9710-70-54 05:00:00 Test Item Value Reference Range Interpretation Comments U Phencyclidine Scr (test Negative code = U Phencyclidine *NA*(04/12/22 11:00 Scr) PM) [facility] CenterLiygxpmGXHWVTEYE4620-36-58 05:00:00 Test Item Value Reference Range Interpretation Comments UDS Note (test code = See Note (04/12/22 11:00 UDS Note) PM) [facility] [id number] 05:00:00 Test Item Value Reference Range Interpretation Comments U Amph Scr (test code Positive *ABN*(04/12/22 = U Amph Scr) 11:00 PM) [facility] [id number] 05:00:00 Test Item Value Reference Range Interpretation Comments U Sruthi Scr (test code Negative *NA*(04/12/22 = U Sruthi Scr) 11:00 PM) [facility] [id number] 05:00:00 Test Item Value Reference Range Interpretation Comments U Benzodiaz Scr (test Negative *NA*(04/12/22 code = U Benzodiaz Scr) 11:00 PM) [facility] [id number] 05:00:00 Test Item Value Reference Range Interpretation Comments U Cocaine Scr (test Negative *NA*(04/12/22 code = U Cocaine Scr) 11:00 PM) [facility] [id number] 05:00:00 Test Item Value Reference Range Interpretation Comments U Cannab Scr (test Negative *NA*(04/12/22 code = U Cannab Scr) 11:00 PM) [facility] [id number] 05:00:00 Test Item Value Reference Range Interpretation Comments U Opiate Scr (test Negative *NA*(04/12/22 code = U Opiate Scr) 11:00 PM) [facility] [id number] 05:00:00 Test Item Value Reference Range Interpretation Comments U Phencyclidine Scr (test Negative code = U Phencyclidine *NA*(04/12/22 11:00 Scr) PM) [facility] [id number] 05:00:00 Test Item Value Reference Range Interpretation Comments UDS Note (test code = See Note (04/12/22 11:00 UDS Note) PM) [facility] CenterBtbabkaHSAJWQPUS0164-21-23 05:00:00 Test Item Value Reference Range Interpretation Comments U Amph Scr (test code Positive *ABN*(04/12/22 = U Amph Scr) 11:00 PM) [facility] CenterHcypyraWIAYXTCHL5980-69-09 05:00:00 Test Item Value Reference Range Interpretation Comments U Sruthi Scr (test code Negative *NA*(04/12/22 = U Sruthi Scr) 11:00 PM) [facility] FcwtomaXJEQULRDC8008-64-30 05:00:00 Test Item Value Reference Range Interpretation Comments U Benzodiaz Scr (test Negative *NA*(04/12/22 code = U Benzodiaz Scr) 11:00 PM) [facility] CenterUwhnbkdAYVKNPHLJ5555-50-00 05:00:00 Test Item Value Reference Range Interpretation Comments U Cocaine Scr (test Negative *NA*(04/12/22 code = U Cocaine Scr) 11:00 PM) [facility] VpmjenpNSVXUYXLG1485-47-94 05:00:00 Test Item Value Reference Range Interpretation Comments U Cannab Scr (test Negative *NA*(04/12/22 code = U Cannab Scr) 11:00 PM) [facility] CenterWtuwonlECBXNNOOM2026-23-56 05:00:00 Test Item Value Reference Range Interpretation Comments U Opiate Scr (test Negative *NA*(04/12/22 code = U Opiate Scr) 11:00 PM) [facility] CenterRgyoxlrFHSWMNIMA2320-29-75 05:00:00 Test Item Value Reference Range Interpretation Comments U Phencyclidine Scr (test Negative code = U Phencyclidine *NA*(04/12/22 11:00 Scr) PM) [facility] SbykpoxRZJLGMIIV8131-70-61 05:00:00 Test Item Value Reference Range Interpretation Comments UDS Note (test code = See Note (04/12/22 11:00 UDS Note) PM) [facility] [id number] 05:00:00 Test Item Value Reference Range Interpretation Comments U Amph Scr (test code Positive *ABN*(04/12/22 = U Amph Scr) 11:00 PM) [facility] [id number] 05:00:00 Test Item Value Reference Range Interpretation Comments U Sruthi Scr (test code Negative *NA*(04/12/22 = U Sruthi Scr) 11:00 PM) [facility] [id number] 05:00:00 Test Item Value Reference Range Interpretation Comments U Benzodiaz Scr (test Negative *NA*(04/12/22 code = U Benzodiaz Scr) 11:00 PM) [facility] [id number] 05:00:00 Test Item Value Reference Range Interpretation Comments U Cocaine Scr (test Negative *NA*(04/12/22 code = U Cocaine Scr) 11:00 PM) [facility] [id number] 05:00:00 Test Item Value Reference Range Interpretation Comments U Cannab Scr (test Negative *NA*(04/12/22 code = U Cannab Scr) 11:00 PM) [facility] [id number] 05:00:00 Test Item Value Reference Range Interpretation Comments U Opiate Scr (test Negative *NA*(04/12/22 code = U Opiate Scr) 11:00 PM) [facility] [id number] 05:00:00 Test Item Value Reference Range Interpretation Comments U Phencyclidine Scr (test Negative code = U Phencyclidine *NA*(04/12/22 11:00 Scr) PM) [facility] [id number] 05:00:00 Test Item Value Reference Range Interpretation Comments UDS Note (test code = See Note (04/12/22 11:00 UDS Note) PM) [facility] HysalhqBXTZBUCMG9875-49-24 05:00:00 Test Item Value Reference Range Interpretation Comments U Amph Scr (test code Positive *ABN*(04/12/22 = U Amph Scr) 11:00 PM) [facility] CenterWkmgvfxWFFGERAVR5937-66-97 05:00:00 Test Item Value Reference Range Interpretation Comments U Sruthi Scr (test code Negative *NA*(04/12/22 = U Sruthi Scr) 11:00 PM) [facility] CenterXvtllpvUVXTYZHKH3132-33-98 05:00:00 Test Item Value Reference Range Interpretation Comments U Benzodiaz Scr (test Negative *NA*(04/12/22 code = U Benzodiaz Scr) 11:00 PM) [facility] CenterDvvfpldPWQWENCNT8095-55-02 05:00:00 Test Item Value Reference Range Interpretation Comments U Cocaine Scr (test Negative *NA*(04/12/22 code = U Cocaine Scr) 11:00 PM) [facility] CenterWtvozflMXZUINCKJ4406-19-86 05:00:00 Test Item Value Reference Range Interpretation Comments U Cannab Scr (test Negative *NA*(04/12/22 code = U Cannab Scr) 11:00 PM) [facility] CenterQbnamwgHHBHOTQWQ7077-72-48 05:00:00 Test Item Value Reference Range Interpretation Comments U Opiate Scr (test Negative *NA*(04/12/22 code = U Opiate Scr) 11:00 PM) [facility] CenterYhihgqjJUIOIUWUO4436-44-40 05:00:00 Test Item Value Reference Range Interpretation Comments U Phencyclidine Scr (test Negative code = U Phencyclidine *NA*(04/12/22 11:00 Scr) PM) [facility] CenterJwqfyciGVGRJCGAG3609-37-39 05:00:00 Test Item Value Reference Range Interpretation Comments UDS Note (test code = See Note (04/12/22 11:00 UDS Note) PM) [facility] [id number] 05:00:00 Test Item Value Reference Range Interpretation Comments U Amph Scr (test code Positive *ABN*(04/12/22 = U Amph Scr) 11:00 PM) [facility] [id number] 05:00:00 Test Item Value Reference Range Interpretation Comments U Sruthi Scr (test code Negative *NA*(04/12/22 = U Sruthi Scr) 11:00 PM) [facility] [id number] 05:00:00 Test Item Value Reference Range Interpretation Comments U Benzodiaz Scr (test Negative *NA*(04/12/22 code = U Benzodiaz Scr) 11:00 PM) [facility] [id number] 05:00:00 Test Item Value Reference Range Interpretation Comments U Cocaine Scr (test Negative *NA*(04/12/22 code = U Cocaine Scr) 11:00 PM) [facility] [id number] 05:00:00 Test Item Value Reference Range Interpretation Comments U Cannab Scr (test Negative *NA*(04/12/22 code = U Cannab Scr) 11:00 PM) [facility] [id number] 05:00:00 Test Item Value Reference Range Interpretation Comments U Opiate Scr (test Negative *NA*(04/12/22 code = U Opiate Scr) 11:00 PM) [facility] [id number] 05:00:00 Test Item Value Reference Range Interpretation Comments U Phencyclidine Scr (test Negative code = U Phencyclidine *NA*(04/12/22 11:00 Scr) PM) [facility] [id number] 05:00:00 Test Item Value Reference Range Interpretation Comments UDS Note (test code = See Note (04/12/22 11:00 UDS Note) PM) [facility] CenterXskqycrLNCYPFVWW1792-86-69 05:00:00 Test Item Value Reference Range Interpretation Comments U Amph Scr (test code Positive *ABN*(04/12/22 = U Amph Scr) 11:00 PM) [facility] CenterNoiygtzVVOVHGFWA5664-33-29 05:00:00 Test Item Value Reference Range Interpretation Comments U Sruthi Scr (test code Negative *NA*(04/12/22 = U Sruthi Scr) 11:00 PM) [facility] CenterFgwzirwNNIRVYYXA0613-92-00 05:00:00 Test Item Value Reference Range Interpretation Comments U Benzodiaz Scr (test Negative *NA*(04/12/22 code = U Benzodiaz Scr) 11:00 PM) [facility] LwahxnzNMIWWSTCS0742-16-45 05:00:00 Test Item Value Reference Range Interpretation Comments U Cocaine Scr (test Negative *NA*(04/12/22 code = U Cocaine Scr) 11:00 PM) [facility] CenterEvdxqizVPTVZLEDL9965-76-44 05:00:00 Test Item Value Reference Range Interpretation Comments U Cannab Scr (test Negative *NA*(04/12/22 code = U Cannab Scr) 11:00 PM) [facility] [id number] 05:00:00 Test Item Value Reference Range Interpretation Comments U Opiate Scr (test Negative *NA*(04/12/22 code = U Opiate Scr) 11:00 PM) [facility] BqiwbdwGADBNEJNQ9845-62-21 05:00:00 Test Item Value Reference Range Interpretation Comments U Phencyclidine Scr (test Negative code = U Phencyclidine *NA*(04/12/22 11:00 Scr) PM) [facility] VkmmuvmPKJZBVRMA9912-06-15 05:00:00 Test Item Value Reference Range Interpretation Comments UDS Note (test code = See Note (04/12/22 11:00 UDS Note) PM) [facility] [id number] 05:00:00 Test Item Value Reference Range Interpretation Comments U Amph Scr (test code Positive *ABN*(04/12/22 = U Amph Scr) 11:00 PM) [facility] [id number] 05:00:00 Test Item Value Reference Range Interpretation Comments U Sruthi Scr (test code Negative *NA*(04/12/22 = U Sruthi Scr) 11:00 PM) [facility] [id number] 05:00:00 Test Item Value Reference Range Interpretation Comments U Benzodiaz Scr (test Negative *NA*(04/12/22 code = U Benzodiaz Scr) 11:00 PM) [facility] [id number] 05:00:00 Test Item Value Reference Range Interpretation Comments U Cocaine Scr (test Negative *NA*(04/12/22 code = U Cocaine Scr) 11:00 PM) [facility] [id number] 05:00:00 Test Item Value Reference Range Interpretation Comments U Cannab Scr (test Negative *NA*(04/12/22 code = U Cannab Scr) 11:00 PM) [facility] [id number] 05:00:00 Test Item Value Reference Range Interpretation Comments U Opiate Scr (test Negative *NA*(04/12/22 code = U Opiate Scr) 11:00 PM) [facility] [id number] 05:00:00 Test Item Value Reference Range Interpretation Comments U Phencyclidine Scr (test Negative code = U Phencyclidine *NA*(04/12/22 11:00 Scr) PM) [facility] [id number] 05:00:00 Test Item Value Reference Range Interpretation Comments UDS Note (test code = See Note (04/12/22 11:00 UDS Note) PM) [facility] CenterTprimyeXEODXJNJT3780-66-19 03:32:00 Test Item Value Reference Range Interpretation Comments Acetaminoph Lvl (test code (04/12/22 9:32 PM) 10-20 = Acetaminoph Lvl) [facility] ZfajnfqSDCYFEHES8450-28-79 03:32:00 Test Item Value Reference Range Interpretation Comments Ethanol Lvl (test code = Ethanol Lvl) no gt [facility] [id number] 03:32:00 Test Item Value Reference Range Interpretation Comments Etoh (%) (test code = Etoh (%)) no gt [facility] CenterYvnbklgXJKSKZUTR2684-31-56 03:32:00 Test Item Value Reference Range Interpretation Comments Salicylate Lvl (test 1.9 See_Comment [Autom ated message] The code = Salicylate Lvl) syste m which generated this result tra nsmitted reference range : <=30.0. The reference r peri was not used to int erpret this result as normal/abnormal . [facility] CenterGurnkiqZNCXWLRHHV8814-87-99 03:32:00 Test Item Value Reference Range Interpretation Comments Basophils # (test code 0.1 See_Comment [Aut omated message] The = Basophils #) system which generated this result tra nsmitted reference range : <=0.2. The reference r peri was not used to int erpret this result as normal/abnormal . [facility] CenterSvhsnrjANARWTYWCR5372-92-02 03:32:00 Test Item Value Reference Range Interpretation Comments Acetaminoph Lvl (test code (04/12/22 9:32 PM) 10-20 = Acetaminoph Lvl) [facility] CenterHbliwwnRXHQRSBMMJ8483-25-88 03:32:00 Test Item Value Reference Range Interpretation Comments Ethanol Lvl (test code = Ethanol Lvl) no gt [facility] CenterJfmjmxmMZOQYZCQTU9325-12-36 03:32:00 Test Item Value Reference Range Interpretation Comments Etoh (%) (test code = Etoh (%)) no gt [facility] CenterJlkjpdzKDHAYQCQDT2740-98-32 03:32:00 Test Item Value Reference Range Interpretation Comments Salicylate Lvl (test 1.9 See_Comment [Autom ated message] The code = Salicylate Lvl) syste m which generated this result tra nsmitted reference range : <=30.0. The reference r peri was not used to int erpret this result as normal/abnormal . [facility] CenterUypaykoCAIVAECHG1375-39-02 03:32:00 Test Item Value Reference Range Interpretation Comments Acetaminoph Lvl (test code (04/12/22 9:32 PM) 10-20 = Acetaminoph Lvl) [facility] CenterEtlygmxYACGAUBXX2825-02-74 03:32:00 Test Item Value Reference Range Interpretation Comments Ethanol Lvl (test code = Ethanol Lvl) no [facility]ZZ[facility]AD[facility]7607-65-43 03:32:00 Test Item Value Reference Range Interpretation Comments Etoh (%) (test code = Etoh (%)) no [facility]DgroqumSVLRPVRWO0360-02-30 03:32:00 Test Item Value Reference Range Interpretation Comments Salicylate Lvl (test 1.9 See_Comment [Autom ated message] The code = Salicylate Lvl) syste m which generated this result tra nsmitted reference range : <=30.0. The reference r peri was not used to int erpret this result as normal/abnormal . [facility] CenterVqhngubDOBDDDVOKK9947-34-84 03:32:00 Test Item Value Reference Range Interpretation Comments Basophils # (test code 0.1 See_Comment [Aut omated message] The = Basophils #) system which generated this result tra nsmitted reference range : <=0.2. The reference r peri was not used to int erpret this result as normal/abnormal . [facility] CenterOihxbfuOSYVKZOGCE7274-00-48 03:32:00 Test Item Value Reference Range Interpretation Comments Acetaminoph Lvl (test code (04/12/22 9:32 PM) 10-20 = Acetaminoph Lvl) [facility] CenterRczcczgQZZTZAUFPV9721-14-33 03:32:00 Test Item Value Reference Range Interpretation Comments Ethanol Lvl (test code = Ethanol Lvl) no [facility]FpbuqmcHIPBTFOLHZ7209-35-18 03:32:00 Test Item Value Reference Range Interpretation Comments Etoh (%) (test code = Etoh (%)) no [facility]nbgiyiGKFFXBFOTJ1767-32-91 03:32:00 Test Item Value Reference Range Interpretation Comments Salicylate Lvl (test 1.9 See_Comment [Autom ated message] The code = Salicylate Lvl) syste m which generated this result tra nsmitted reference range : <=30.0. The reference r peri was not used to int erpret this result as normal/abnormal . [facility] CenterNtoifxpTAXITIEUQ3442-30-26 03:32:00 Test Item Value Reference Range Interpretation Comments Acetaminoph Lvl (test code (04/12/22 9:32 PM) 10-20 = Acetaminoph Lvl) [facility]QtjudruVFRUPFECE3471-94-49 03:32:00 Test Item Value Reference Range Interpretation Comments Ethanol Lvl (test code = Ethanol Lvl) no [facility]2022-12-07 03:32:00 Test Item Value Reference Range Interpretation Comments Etoh (%) (test code = Etoh (%)) no [facility]2022-12-07 03:32:00 Test Item Value Reference Range Interpretation Comments Salicylate Lvl (test 1.9 See_Comment [Autom ated message] The code = Salicylate Lvl) syste m which generated this result tra nsmitted reference range : <=30.0. The reference r peri was not used to int erpret this result as normal/abnormal . [facility]ZfzlxudBZYOVSWBNE9201-33-09 03:32:00 Test Item Value Reference Range Interpretation Comments Basophils # (test code 0.1 See_Comment [Aut omated message] The = Basophils #) system which generated this result tra nsmitted reference range : <=0.2. The reference r peri was not used to int erpret this result as normal/abnormal . [facility]XajzyseQWCSYBQZPQ2258-29-39 03:32:00 Test Item Value Reference Range Interpretation Comments Acetaminoph Lvl (test code (04/12/22 9:32 PM) 10-20 = Acetaminoph Lvl) [facility] HoustonEmjlfnyEOYEAEQXWX3091-79-81 03:32:00 Test Item Value Reference Range Interpretation Comments Ethanol Lvl (test code = Ethanol Lvl) no [facility]MoziggtDHQEBOJYVS9072-22-49 03:32:00 Test Item Value Reference Range Interpretation Comments Etoh (%) (test code = Etoh (%)) no [facility] HospitalDbmigmhFJZWWBJGBS0546-74-77 03:32:00 Test Item Value Reference Range Interpretation Comments Salicylate Lvl (test 1.9 See_Comment [Autom ated message] The code = Salicylate Lvl) syste m which generated this result tra nsmitted reference range : <=30.0. The reference r peri was not used to int erpret this result as normal/abnormal . [facility]EbavosnNTSNKUVTB0423-50-06 03:32:00 Test Item Value Reference Range Interpretation Comments Acetaminoph Lvl (test code (04/12/22 9:32 PM) 10-20 = Acetaminoph Lvl) [facility]lineSrpfweaGOBYNQXBO4738-90-21 03:32:00 Test Item Value Reference Range Interpretation Comments Ethanol Lvl (test code = Ethanol Lvl) no [facility]2022-12-07 03:32:00 Test Item Value Reference Range Interpretation Comments Etoh (%) (test code = Etoh (%)) no [facility]2022-12-07 03:32:00 Test Item Value Reference Range Interpretation Comments Salicylate Lvl (test 1.9 See_Comment [Autom ated message] The code = Salicylate Lvl) syste m which generated this result tra nsmitted reference range : <=30.0. The reference r peri was not used to int erpret this result as normal/abnormal . [facility]NnkwszsTAFWGKPGKS9071-44-23 03:32:00 Test Item Value Reference Range Interpretation Comments Basophils # (test code 0.1 See_Comment [Aut omated message] The = Basophils #) system which generated this result tra nsmitted reference range : <=0.2. The reference r peri was not used to int erpret this result as normal/abnormal . [place] 87785022-12-07 03:32:00 Test Item Value Reference Range Interpretation Comments Acetaminoph Lvl (test code (04/12/22 9:32 PM) 10-20 = Acetaminoph Lvl) [place] [id number] 03:32:00 Test Item Value Reference Range Interpretation Comments Ethanol Lvl (test code = Ethanol Lvl) no [facility] HospitalPjwhistWAVFNQOCXQ8672-46-78 03:32:00 Test Item Value Reference Range Interpretation Comments Etoh (%) (test code = Etoh (%)) no [facility] HospitalMblcffiYVPGHVGZWY3946-55-85 03:32:00 Test Item Value Reference Range Interpretation Comments Salicylate Lvl (test 1.9 See_Comment [Autom ated message] The code = Salicylate Lvl) syste m which generated this result tra nsmitted reference range : <=30.0. The reference r peri was not used to int erpret this result as normal/abnormal . [facility]MppccelHFGGGIPNS1928-14-61 03:32:00 Test Item Value Reference Range Interpretation Comments Acetaminoph Lvl (test code (04/12/22 9:32 PM) 10-20 = Acetaminoph Lvl) [facility]lineFdfehdwGHHAOVGYM5919-20-92 03:32:00 Test Item Value Reference Range Interpretation Comments Ethanol Lvl (test code = Ethanol Lvl) no [facility]2022-12-07 03:32:00 Test Item Value Reference Range Interpretation Comments Etoh (%) (test code = Etoh (%)) no [facility] HospitalEpozsfbGUQPJNNZP8011-54-63 03:32:00 Test Item Value Reference Range Interpretation Comments Salicylate Lvl (test 1.9 See_Comment [Autom ated message] The code = Salicylate Lvl) syste m which generated this result tra nsmitted reference range : <=30.0. The reference r peri was not used to int erpret this result as normal/abnormal . [facility] CenterIwdpmeoAFJBOYUQEY5357-44-47 03:32:00 Test Item Value Reference Range Interpretation Comments Basophils # (test code 0.1 See_Comment [Aut omated message] The = Basophils #) system which generated this result tra nsmitted reference range : <=0.2. The reference r peri was not used to int erpret this result as normal/abnormal . [facility]vineVwixzlyQCDCKQQLFS0903-18-14 03:32:00 Test Item Value Reference Range Interpretation Comments Acetaminoph Lvl (test code (04/12/22 9:32 PM) 10-20 = Acetaminoph Lvl) [facility]EvqmpfeUIEFIABATX6954-13-88 03:32:00 Test Item Value Reference Range Interpretation Comments Ethanol Lvl (test code = Ethanol Lvl) no gt [facility] CenterLsfznnxDXMSCXKFCA2362-24-98 03:32:00 Test Item Value Reference Range Interpretation Comments Etoh (%) (test code = Etoh (%)) no [facility] HospitalEdpsmuvEVQGDTJBJM9359-12-43 03:32:00 Test Item Value Reference Range Interpretation Comments Salicylate Lvl (test 1.9 See_Comment [Autom ated message] The code = Salicylate Lvl) syste m which generated this result tra nsmitted reference range : <=30.0. The reference r peri was not used to int erpret this result as normal/abnormal . [facility] CenterUpcosjgGJAQFYJJZ7774-24-01 03:32:00 Test Item Value Reference Range Interpretation Comments Acetaminoph Lvl (test code (04/12/22 9:32 PM) 10-20 = Acetaminoph Lvl) [facility] CenterMcxkmdtKCCMZIGDC9033-22-11 03:32:00 Test Item Value Reference Range Interpretation Comments Ethanol Lvl (test code = Ethanol Lvl) no [facility] HospitalMdsvxhwVXTNWIUVA0816-98-59 03:32:00 Test Item Value Reference Range Interpretation Comments Etoh (%) (test code = Etoh (%)) no [facility] HospitalDrbrqcmBKVZUTUJL3322-25-16 03:32:00 Test Item Value Reference Range Interpretation Comments Salicylate Lvl (test 1.9 See_Comment [Autom ated message] The code = Salicylate Lvl) syste m which generated this result tra nsmitted reference range : <=30.0. The reference r peri was not used to int erpret this result as normal/abnormal . [facility] CenterTkkqauoLTXSGXOWGU3022-01-29 03:32:00 Test Item Value Reference Range Interpretation Comments Basophils # (test code 0.1 See_Comment [Aut omated message] The = Basophils #) system which generated this result tra nsmitted reference range : <=0.2. The reference r peri was not used to int erpret this result as normal/abnormal . [facility] CenterTgvrxjnOWBOHAEXSS6850-01-20 03:32:00 Test Item Value Reference Range Interpretation Comments Acetaminoph Lvl (test code (04/12/22 9:32 PM) 10-20 = Acetaminoph Lvl) [facility]OqdexkfVBXGSMOTCO5966-98-10 03:32:00 Test Item Value Reference Range Interpretation Comments Ethanol Lvl (test code = Ethanol Lvl) no gt [facility] CenterRmuqqoyACJUMQFYJW7900-76-20 03:32:00 Test Item Value Reference Range Interpretation Comments Etoh (%) (test code = Etoh (%)) no gt [facility]vineYqshpitRSHEDJZTCW4055-66-67 03:32:00 Test Item Value Reference Range Interpretation Comments Salicylate Lvl (test 1.9 See_Comment [Autom ated message] The code = Salicylate Lvl) syste m which generated this result tra nsmitted reference range : <=30.0. The reference r peri was not used to int erpret this result as normal/abnormal . [facility] CenterMhqrhnjCKPGDDYGY3137-20-03 03:32:00 Test Item Value Reference Range Interpretation Comments Acetaminoph Lvl (test code (04/12/22 9:32 PM) 10-20 = Acetaminoph Lvl) [facility] CenterFujssrnNQZMJEZDT1377-84-63 03:32:00 Test Item Value Reference Range Interpretation Comments Ethanol Lvl (test code = Ethanol Lvl) no [facility]byeCQFOCIPAZ0876-17-71 03:32:00 Test Item Value Reference Range Interpretation Comments Etoh (%) (test code = Etoh (%)) no [facility]SbjhyysIYZFDNVUB9332-80-27 03:32:00 Test Item Value Reference Range Interpretation Comments Salicylate Lvl (test 1.9 See_Comment [Autom ated message] The code = Salicylate Lvl) syste m which generated this result tra nsmitted reference range : <=30.0. The reference r peri was not used to int erpret this result as normal/abnormal . [facility] CenterYsfowyzQDXEEHHNWF6074-08-98 03:32:00 Test Item Value Reference Range Interpretation Comments Basophils # (test code 0.1 See_Comment [Aut omated message] The = Basophils #) system which generated this result tra nsmitted reference range : <=0.2. The reference r peri was not used to int erpret this result as normal/abnormal . [facility] CenterYrnyzprMQUBWJXSTK4484-85-29 03:32:00 Test Item Value Reference Range Interpretation Comments Acetaminoph Lvl (test code (04/12/22 9:32 PM) 10-20 = Acetaminoph Lvl) [place] [id number] 03:32:00 Test Item Value Reference Range Interpretation Comments Ethanol Lvl (test code = Ethanol Lvl) no [place] 59270022-12-07 03:32:00 Test Item Value Reference Range Interpretation Comments Etoh (%) (test code = Etoh (%)) no [place] 59270022-12-07 03:32:00 Test Item Value Reference Range Interpretation Comments Salicylate Lvl (test 1.9 See_Comment [Autom ated message] The code = Salicylate Lvl) syste m which generated this result tra nsmitted reference range : <=30.0. The reference r peri was not used to int erpret this result as normal/abnormal . [facility] CenterKbnzqqoUEKYHGBOB5672-54-75 03:32:00 Test Item Value Reference Range Interpretation Comments Acetaminoph Lvl (test code (04/12/22 9:32 PM) 10-20 = Acetaminoph Lvl) [facility]lineNitojuzMYDGBZPDB2780-33-45 03:32:00 Test Item Value Reference Range Interpretation Comments Ethanol Lvl (test code = Ethanol Lvl) no [facility]2022-12-07 03:32:00 Test Item Value Reference Range Interpretation Comments Etoh (%) (test code = Etoh (%)) no [facility] HospitalVblwcjaVVIBNEJHY7861-09-35 03:32:00 Test Item Value Reference Range Interpretation Comments Salicylate Lvl (test 1.9 See_Comment [Autom ated message] The code = Salicylate Lvl) syste m which generated this result tra nsmitted reference range : <=30.0. The reference r peri was not used to int erpret this result as normal/abnormal . [facility] CenterFqsexsgFBYAGJPFQL7923-88-23 03:32:00 Test Item Value Reference Range Interpretation Comments Basophils # (test code 0.1 See_Comment [Aut omated message] The = Basophils #) system which generated this result tra nsmitted reference range : <=0.2. The reference r peri was not used to int erpret this result as normal/abnormal . [facility] CenterUuncadrKUPTIJHHRQ8842-07-40 03:32:00 Test Item Value Reference Range Interpretation Comments Acetaminoph Lvl (test code (04/12/22 9:32 PM) 10-20 = Acetaminoph Lvl) [place] AnandXecsvngQBNIDSMTDL6565-30-15 03:32:00 Test Item Value Reference Range Interpretation Comments Ethanol Lvl (test code = Ethanol Lvl) no gt [facility] NwsdkflUGIQBHPQQY7907-97-07 03:32:00 Test Item Value Reference Range Interpretation Comments Etoh (%) (test code = Etoh (%)) no gt [facility] XevlsmzDKRQSZQEIK6776-48-66 03:32:00 Test Item Value Reference Range Interpretation Comments Salicylate Lvl (test 1.9 See_Comment [Autom ated message] The code = Salicylate Lvl) syste m which generated this result tra nsmitted reference range : <=30.0. The reference r peri was not used to int erpret this result as normal/abnormal . [facility]RS[facility] Resp Ql CAMERON+dlyml5254-01-82 02:03:06 Test Item Value Reference Range Interpretation Comments Hospitalized? (test No code = 29958-7) ICU? (test code = No 00589-4) Symptomatic as defined No by CDC? (test code = 34719-1) Employed in Unknown Healthcare? (test code = 43411-2) Resident in a Unknown congregate care setting (including nursing homes, residential care for people with intellectual and developmental disabilities, psychiatric treatment facilities, group homes, board and care homes, homeless longterm, foster care or other): (test code = 60367-1) SARS-CoV-2 RNA Nph Ql NOT DETECTED Not Detected The novel CAMERON+probe (test code = coron avirus 05127-6) (SARS-CoV-2) ta rget nucleic acids a re not detected. COMMENT: The Highlighter SARS-CoV-2 real-time RT-PCR based diagnostic test intended for the qualitative detection of SARS-CoV-2 viral RNA in a nasopharyngeal swab during acute phase of infection. This test was developed and its performance characteristics have been determined by the [facility]. This test has not been cleared or approved by the FDA. This testsystem has been authorized by the FDA under an Emergency Use Authorization (EUA). This test has beenvalidated in accordance with the FDA\\RF27909\\s Guidance document \\ZB1712Y\\Policy for Coronavirus Disease-2019 Tests During the Public Health Emergency\\OP0689U\\ (Revised September 2019) and is used for clinical purposes. It should not be regarded as investigational or for research\\ET6799D\\Detected\\JH6645I\\ results are indicative of the presence of the identified virus, but do not rule out bacterial infection or co-infection with other pathogens not detected by the test. Clinical correlation with patient his tory and other diagnostic information is necessary to determine patient infection status. \\QQ0640Z\\Not Detected\\PX0843W\\ results do not preclude SARS-CoV-2 and should not be used as the sole basis for treatment or other patient management decisions. Negative results must be combined with clinical observations, patient history, and/or epidemiological information.This laboratory is certified under the Clinical Laboratory Improvement Amendments (CLIA) as qualified to perform high complexity clinical laboratory testing.[facility] SARS-CoV-2 RNA Resp Ql CAMERON+shckg7646-02-44 12:30:56 Test Item Value Reference Range Interpretation Comments Hospitalized? (test No code = 80170-4) ICU? (test code = No 55075-3) Symptomatic as defined No by CDC? (test code = 58963-8) Employed in No Healthcare? (test code = 28986-1) Resident in a No congregate care setting (including nursing homes, residential care for people with intellectual and developmental disabilities, psychiatric treatment facilities, group homes, board and care homes, homeless longterm, foster care or other): (test code = 18064-4) SARS-CoV-2 RNA Resp Ql NOT DETECTED Not Detected INTER PRETATION: No CAMERON+probe (test code = detec table levels 38047-4) of SARS-CoV-2 Coronavirus (COVID-19) were present in [...] n with SARS-CoV-2 Coronavirus (COVID-19). COMMENT: This [employer] Xpert Xpress SARS-CoV-2 real-time PCR test was developed, and its performance characteristics determined by the [facility] molecular diagnostic Laboratory and is acceptablefor patient testing. It has been approved for patient testing by the FDA under the Emergency Use Auth orization pathway. This laboratory is certified under federal CLIA regulations to perform this type of high complexity testing.ICBIWUTCFBMSI2170-81-37 17:32:00 Test Item Value Reference Range Interpretation Comments Coronavirus (COVID-19) Not Detected (12/26/21 CAMERON (test code = 12:32 PM) Coronavirus (COVID-19) CAMERON) [facility]UdfrzypCGDLKKYGRG7156-10-86 17:32:00 Test Item Value Reference Range Interpretation Comments Coronavirus (COVID-19) Not Detected (12/26/21 CAMERON (test code = 12:32 PM) Coronavirus (COVID-19) CAMERON) [facility] CenterYyardydBTMCERJGQK4231-03-87 17:32:00 Test Item Value Reference Range Interpretation Comments Coronavirus (COVID-19) Not Detected (12/26/21 CAMERON (test code = 12:32 PM) Coronavirus (COVID-19) CAMERON) [place] [address]-08-21 17:32:00 Test Item Value Reference Range Interpretation Comments Coronavirus (COVID-19) Not Detected (12/26/21 CAMERON (test code = 12:32 PM) Coronavirus (COVID-19) CAMERON) [place] [address]-08-21 17:32:00 Test Item Value Reference Range Interpretation Comments Coronavirus (COVID-19) Not Detected (12/26/21 CAMERON (test code = 12:32 PM) Coronavirus (COVID-19) CAMERON) [place] [address]-08-21 17:32:00 Test Item Value Reference Range Interpretation Comments Coronavirus (COVID-19) Not Detected (12/26/21 CAMERON (test code = 12:32 PM) Coronavirus (COVID-19) CAMERON) [place] [address]-08-21 17:32:00 Test Item Value Reference Range Interpretation Comments Coronavirus (COVID-19) Not Detected (12/26/21 CAMERON (test code = 12:32 PM) Coronavirus (COVID-19) CAMERON) [place] 182562-08-21 17:32:00 Test Item Value Reference Range Interpretation Comments Coronavirus (COVID-19) Not Detected (12/26/21 CAMERON (test code = 12:32 PM) Coronavirus (COVID-19) CAMERON) [place] 182562-08-21 17:32:00 Test Item Value Reference Range Interpretation Comments Coronavirus (COVID-19) Not Detected (12/26/21 CAMERON (test code = 12:32 PM) Coronavirus (COVID-19) CAMERON) [place] 182562-08-21 17:32:00 Test Item Value Reference Range Interpretation Comments Coronavirus (COVID-19) Not Detected (12/26/21 CAMERON (test code = 12:32 PM) Coronavirus (COVID-19) CAMERON) [place] 182562-08-21 17:32:00 Test Item Value Reference Range Interpretation Comments Coronavirus (COVID-19) Not Detected (12/26/21 CAMERON (test code = 12:32 PM) Coronavirus (COVID-19) CAMERON) [facility] CenterZabulkmCTTJDIAZQL7678-51-78 17:32:00 Test Item Value Reference Range Interpretation Comments Coronavirus (COVID-19) Not Detected (12/26/21 CAMERON (test code = 12:32 PM) Coronavirus (COVID-19) CAMERON) [facility] CenterUjkbgajMDOIXBOXZT9407-63-53 16:23:48 Test Item Value Reference Range Interpretation Comments PT (test code = PT) 12.8 s 12.0-14.7 [place] [address]-08-21 16:23:48 Test Item Value Reference Range Interpretation Comments INR (test code = INR) 0.97 1 0.85-1.17 [place] [address]-08-21 16:23:48 Test Item Value Reference Range Interpretation Comments PTT (test code = PTT) 26.8 s 22.9-35.8 [place] [address]-08-21 16:23:48 Test Item Value Reference Range Interpretation Comments PT (test code = PT) 12.8 s 12.0-14.7 [facility] CenterEfsgssjMFZCKHWXFZ1176-85-47 16:23:48 Test Item Value Reference Range Interpretation Comments INR (test code = INR) 0.97 1 0.85-1.17 [facility] CenterHbizdfbUAQRCOEGJG0986-14-81 16:23:48 Test Item Value Reference Range Interpretation Comments PT (test code = PT) 12.8 s 12.0-14.7 [facility] CenterQdmjwliSOYXVGROQH7904-58-10 16:23:48 Test Item Value Reference Range Interpretation Comments INR (test code = INR) 0.97 1 0.85-1.17 [facility] CenterTbefaahBQPKHPILNT5363-28-09 16:23:48 Test Item Value Reference Range Interpretation Comments PTT (test code = PTT) 26.8 s 22.9-35.8 [place] 505542-08-21 16:23:48 Test Item Value Reference Range Interpretation Comments PTT (test code = PTT) 26.8 s 22.9-35.8 [facility] CenterYvjubfvTFJNMVWZRE6651-64-59 16:23:48 Test Item Value Reference Range Interpretation Comments PT (test code = PT) 12.8 s 12.0-14.7 [facility] CenterFxojngxDWRBKAPXMS4001-24-06 16:23:48 Test Item Value Reference Range Interpretation Comments INR (test code = INR) 0.97 1 0.85-1.17 [facility] CenterCduwnksCXQGWKGHSN9567-32-95 16:23:48 Test Item Value Reference Range Interpretation Comments PT (test code = PT) 12.8 s 12.0-14.7 [facility] CenterDmwlepoNZJQPQWVAS9225-15-86 16:23:48 Test Item Value Reference Range Interpretation Comments INR (test code = INR) 0.97 1 0.85-1.17 [place] 505542-08-21 16:23:48 Test Item Value Reference Range Interpretation Comments PTT (test code = PTT) 26.8 s 22.9-35.8 [place] [address]-08-21 16:23:48 Test Item Value Reference Range Interpretation Comments PTT (test code = PTT) 26.8 s 22.9-35.8 [facility] CenterCaiobkmWRLDVTCSMZ7844-71-73 16:23:48 Test Item Value Reference Range Interpretation Comments PT (test code = PT) 12.8 s 12.0-14.7 [place] [address]-08-21 16:23:48 Test Item Value Reference Range Interpretation Comments INR (test code = INR) 0.97 1 0.85-1.17 [place] [address]-08-21 16:23:48 Test Item Value Reference Range Interpretation Comments PTT (test code = PTT) 26.8 s 22.9-35.8 [place] [address]-08-21 16:23:48 Test Item Value Reference Range Interpretation Comments PT (test code = PT) 12.8 s 12.0-14.7 [place] [address]-08-21 16:23:48 Test Item Value Reference Range Interpretation Comments INR (test code = INR) 0.97 1 0.85-1.17 [place] [address]-08-21 16:23:48 Test Item Value Reference Range Interpretation Comments PTT (test code = PTT) 26.8 s 22.9-35.8 [place] 505542-08-21 16:23:48 Test Item Value Reference Range Interpretation Comments PT (test code = PT) 12.8 s 12.0-14.7 [place] [address]-08-21 16:23:48 Test Item Value Reference Range Interpretation Comments INR (test code = INR) 0.97 1 0.85-1.17 [place] [address]-08-21 16:23:48 Test Item Value Reference Range Interpretation Comments PTT (test code = PTT) 26.8 s 22.9-35.8 [place] 505542-08-21 16:23:48 Test Item Value Reference Range Interpretation Comments PT (test code = PT) 12.8 s 12.0-14.7 [place] 505542-08-21 16:23:48 Test Item Value Reference Range Interpretation Comments INR (test code = INR) 0.97 1 0.85-1.17 [place] [address]-08-21 16:23:48 Test Item Value Reference Range Interpretation Comments PTT (test code = PTT) 26.8 s 22.9-35.8 [place] [address]-08-21 16:23:48 Test Item Value Reference Range Interpretation Comments PT (test code = PT) 12.8 s 12.0-14.7 [place] [address]-08-21 16:23:48 Test Item Value Reference Range Interpretation Comments INR (test code = INR) 0.97 1 0.85-1.17 [facility] CenterFtpxxxsOLMIJLWECZ6729-99-70 16:23:48 Test Item Value Reference Range Interpretation Comments PTT (test code = PTT) 26.8 s 22.9-35.8 [facility] CenterZoytkqpWFYQIPSEWC6487-05-83 16:23:48 Test Item Value Reference Range Interpretation Comments PT (test code = PT) 12.8 s 12.0-14.7 [facility] CenterNqsmluiXHHYGOCQFW6942-06-24 16:23:48 Test Item Value Reference Range Interpretation Comments INR (test code = INR) 0.97 1 0.85-1.17 [facility] CenterOlukpxsYMDBZQTYZR5551-79-45 16:23:48 Test Item Value Reference Range Interpretation Comments PTT (test code = PTT) 26.8 s 22.9-35.8 [facility] CenterWswzlceLTJADGBXAQ6228-72-91 16:23:48 Test Item Value Reference Range Interpretation Comments PT (test code = PT) 12.8 s 12.0-14.7 [facility] CenterSckwyiuYUUHFBIMMN9199-61-48 16:23:48 Test Item Value Reference Range Interpretation Comments INR (test code = INR) 0.97 1 0.85-1.17 [facility] CenterLrwctgtGWNQOSXWCY7792-12-95 16:23:48 Test Item Value Reference Range Interpretation Comments PTT (test code = PTT) 26.8 s 22.9-35.8 [facility] WMQGMJ2898-29-50 16:03:54 Test Item Value Reference Range Interpretation Comments U Amph Scr (test code Negative *NA*(12/26/21 = U Amph Scr) 11:03 AM) [facility] EZGEUY3895-61-17 16:03:54 Test Item Value Reference Range Interpretation Comments U Sruthi Scr (test code Negative *NA*(12/26/21 = U Sruthi Scr) 11:03 AM) [facility] KCXQVR3360-67-17 16:03:54 Test Item Value Reference Range Interpretation Comments U Benzodiaz Scr (test Negative *NA*(12/26/21 code = U Benzodiaz Scr) 11:03 AM) [facility] XNVGZK7176-25-49 16:03:54 Test Item Value Reference Range Interpretation Comments U Cocaine Scr (test Negative *NA*(12/26/21 code = U Cocaine Scr) 11:03 AM) [facility] YOFFY[facility]5904[facility]43[facility]80 16:03:54 Test Item Value Reference Range Interpretation Comments U Cannab Scr (test Negative *NA*(12/26/21 code = U Cannab Scr) 11:03 AM) [facility] NDEWRI1136-92-55 16:03:54 Test Item Value Reference Range Interpretation Comments U Opiate Scr (test Negative *NA*(12/26/21 code = U Opiate Scr) 11:03 AM) [facility] BXTOBW8797-19-49 16:03:54 Test Item Value Reference Range Interpretation Comments U Phencyclidine Scr (test Negative code = U Phencyclidine *NA*(12/26/21 11:03 Scr) AM) [facility] CCONUQ3748-53-37 16:03:54 Test Item Value Reference Range Interpretation Comments U Methadone Scr (test Negative *NA*(12/26/21 code = U Methadone Scr) 11:03 AM) [facility] DUZWBR7771-49-22 16:03:54 Test Item Value Reference Range Interpretation Comments U Propoxyph Scr (test Negative *NA*(12/26/21 code = U Propoxyph Scr) 11:03 AM) [facility] SLPFTM2011-01-87 16:03:54 Test Item Value Reference Range Interpretation Comments UDS Note (test code = See Note (12/26/21 11:03 UDS Note) AM) [facility] VJEQF0836-79-49 16:03:54 Test Item Value Reference Range Interpretation Comments UA Color (test code = Yellow (12/26/21 11:03 UA Color) AM) [facility] [id number] 16:03:54 Test Item Value Reference Range Interpretation Comments UA Turbidity (test code = Clear (12/26/21 11:03 [facility]A Turbidity) AM) [facility] [id number] 16:03:54 Test Item Value Reference Range Interpretation Comments UA Spec Grav (test code = UA Spec 1.020 1 Grav) [facility] [id number] 16:03:54 Test Item Value Reference Range Interpretation Comments UA pH (test code = UA pH) 7.0 1 5.0-8.0 [facility] [id number] 16:03:54 Test Item Value Reference Range Interpretation Comments UA Protein (test code Negative (12/26/21 11:03 = UA Protein) AM) [facility] AND [id number] 16:03:54 Test Item Value Reference Range Interpretation Comments UA Glucose (test code Negative (12/26/21 11:03 = UA Glucose) AM) [facility] AND [id number] 16:03:54 Test Item Value Reference Range Interpretation Comments UA Ketones (test code Negative (12/26/21 11:03 = UA Ketones) AM) [facility] AND [id number] 16:03:54 Test Item Value Reference Range Interpretation Comments UA Bili (test code = Negative (12/26/21 11:03 UA Bili) AM) [facility] AND [id number] 16:03:54 Test Item Value Reference Range Interpretation Comments UA Blood (test code = Trace *ABN*(12/26/21 UA Blood) 11:03 AM) [facility] AND [id number] 16:03:54 Test Item Value Reference Range Interpretation Comments UA Urobilinogen (test code = UA 0.2 0.1-1.0 Urobilinogen) [facility] AND [id number] 16:03:54 Test Item Value Reference Range Interpretation Comments UA Nitrite (test code Negative (12/26/21 11:03 = UA Nitrite) AM) [facility] AND [id number] 16:03:54 Test Item Value Reference Range Interpretation Comments UA Leuk Est (test Negative (12/26/21 11:03 code = UA Leuk Est) AM) [facility] AND [id number] 16:03:54 Test Item Value Reference Range Interpretation Comments UA Sq Epi (test code = UA Sq Occasional /LPF Epi) [facility] AND [id number] 16:03:54 Test Item Value Reference Range Interpretation Comments UA WBC (test code = no gt See_Comment [Automa suze message] The UA WBC) system which ge nerated this result transmit suze reference range : <=5. The reference range was not used to interpr et this result as anselmo l/abnormal. [facility] AND [id number] 16:03:54 Test Item Value Reference Range Interpretation Comments UA RBC (test code = 12 See_Comment [Automa suze message] The UA RBC) system which ge nerated this result transmit suze reference range : <=2. The reference range was not used to interpr et this result as anselmo l/abnormal. [facility] [id number] 16:03:54 Test Item Value Reference Range Interpretation Comments UA Mucus (test code = UA Mucus) Few /LPF [facility] [id number] 16:03:54 Test Item Value Reference Range Interpretation Comments U Amph Scr (test code Negative *NA*(12/26/21 = U Amph Scr) 11:03 AM) [facility] [id number] 16:03:54 Test Item Value Reference Range Interpretation Comments U Sruthi Scr (test code Negative *NA*(12/26/21 = U Sruthi Scr) 11:03 AM) [facility] [id number] 16:03:54 Test Item Value Reference Range Interpretation Comments U Benzodiaz Scr (test Negative *NA*(12/26/21 code = U Benzodiaz Scr) 11:03 AM) [facility] [id number] 16:03:54 Test Item Value Reference Range Interpretation Comments U Cocaine Scr (test Negative *NA*(12/26/21 code = U Cocaine Scr) 11:03 AM) [facility] [id number] 16:03:54 Test Item Value Reference Range Interpretation Comments U Cannab Scr (test Negative *NA*(12/26/21 code = U Cannab Scr) 11:03 AM) [facility] [id number] 16:03:54 Test Item Value Reference Range Interpretation Comments U Opiate Scr (test Negative *NA*(12/26/21 code = U Opiate Scr) 11:03 AM) [facility] [id number] 16:03:54 Test Item Value Reference Range Interpretation Comments U Phencyclidine Scr (test Negative code = U Phencyclidine *NA*(12/26/21 11:03 Scr) AM) [facility] [id number] 16:03:54 Test Item Value Reference Range Interpretation Comments U Methadone Scr (test Negative *NA*(12/26/21 code = U Methadone Scr) 11:03 AM) [facility] [id number] 16:03:54 Test Item Value Reference Range Interpretation Comments U Propoxyph Scr (test Negative *NA*(12/26/21 code = U Propoxyph Scr) 11:03 AM) [facility] [id number] 16:03:54 Test Item Value Reference Range Interpretation Comments UDS Note (test code = See Note (12/26/21 11:03 UDS Note) AM) [facility] [id number] 16:03:54 Test Item Value Reference Range Interpretation Comments UA Color (test code = Yellow (12/26/21 11:03 UA Color) AM) [facility] [id number] 16:03:54 Test Item Value Reference Range Interpretation Comments UA Turbidity (test code = Clear (12/26/21 11:03 UA Turbidity) AM) [facility] [id number] 16:03:54 Test Item Value Reference Range Interpretation Comments UA Spec Grav (test code = UA Spec 1.020 1 Grav) [facility] [id number] 16:03:54 Test Item Value Reference Range Interpretation Comments UA pH (test code = UA pH) 7.0 1 5.0-8.0 [facility] [id number] 16:03:54 Test Item Value Reference Range Interpretation Comments UA Protein (test code Negative (12/26/21 11:03 = UA Protein) AM) [facility] [id number] 16:03:54 Test Item Value Reference Range Interpretation Comments U Amph Scr (test code Negative *NA*(12/26/21 = U Amph Scr) 11:03 AM) [facility] [id number] 16:03:54 Test Item Value Reference Range Interpretation Comments UA Glucose (test code Negative (12/26/21 11:03 = UA Glucose) AM) [facility] [id number] 16:03:54 Test Item Value Reference Range Interpretation Comments UA Ketones (test code Negative (12/26/21 11:03 = UA Ketones) AM) [facility] [id number] 16:03:54 Test Item Value Reference Range Interpretation Comments UA Bili (test code = Negative (12/26/21 11:03 UA Bili) AM) [facility] [id number] 16:03:54 Test Item Value Reference Range Interpretation Comments UA Blood (test code = Trace *ABN*(12/26/21 UA Blood) 11:03 AM) [facility] [id number] 16:03:54 Test Item Value Reference Range Interpretation Comments UA Urobilinogen (test code = UA 0.2 0.1-1.0 Urobilinogen) [facility] [id number] 16:03:54 Test Item Value Reference Range Interpretation Comments UA Nitrite (test code Negative (12/26/21 11:03 = UA Nitrite) AM) [facility] [id number] 16:03:54 Test Item Value Reference Range Interpretation Comments UA Leuk Est (test Negative (12/26/21 11:03 code = UA Leuk Est) AM) [facility] [id number] 16:03:54 Test Item Value Reference Range Interpretation Comments UA Sq Epi (test code = UA Sq Occasional /LPF Epi) [facility] [id number] 16:03:54 Test Item Value Reference Range Interpretation Comments UA WBC (test code = no gt See_Comment [Automa suze message] The UA WBC) system which ge nerated this result transmit suze reference range : <=5. The reference range was not used to interpr et this result as anselmo l/abnormal. [facility] [id number] 16:03:54 Test Item Value Reference Range Interpretation Comments UA RBC (test code = 12 See_Comment [Automa suze message] The UA RBC) system which ge nerated this result transmit suze reference range : <=2. The reference range was not used to interpr et this result as anselmo l/abnormal. [facility] [id number] 16:03:54 Test Item Value Reference Range Interpretation Comments U Sruthi Scr (test code Negative *NA*(12/26/21 = U Sruthi Scr) 11:03 AM) [facility] [id number] 16:03:54 Test Item Value Reference Range Interpretation Comments UA Mucus (test code = UA Mucus) Few /LPF [facility] [id number] 16:03:54 Test Item Value Reference Range Interpretation Comments U Benzodiaz Scr (test Negative *NA*(12/26/21 code = U Benzodiaz Scr) 11:03 AM) [facility] [id number] 16:03:54 Test Item Value Reference Range Interpretation Comments U Cocaine Scr (test Negative *NA*(12/26/21 code = U Cocaine Scr) 11:03 AM) [facility] [id number] 16:03:54 Test Item Value Reference Range Interpretation Comments U Cannab Scr (test Negative *NA*(12/26/21 code = U Cannab Scr) 11:03 AM) [facility] [id number] 16:03:54 Test Item Value Reference Range Interpretation Comments U Opiate Scr (test Negative *NA*(12/26/21 code = U Opiate Scr) 11:03 AM) [facility] [id number] 16:03:54 Test Item Value Reference Range Interpretation Comments U Phencyclidine Scr (test Negative code = U Phencyclidine *NA*(12/26/21 11:03 Scr) AM) [facility] [id number] 16:03:54 Test Item Value Reference Range Interpretation Comments U Methadone Scr (test Negative *NA*(12/26/21 code = U Methadone Scr) 11:03 AM) [facility] [id number] 16:03:54 Test Item Value Reference Range Interpretation Comments U Propoxyph Scr (test Negative *NA*(12/26/21 code = U Propoxyph Scr) 11:03 AM) [facility] [id number] 16:03:54 Test Item Value Reference Range Interpretation Comments UDS Note (test code = See Note (12/26/21 11:03 UDS Note) AM) [facility] [id number] 16:03:54 Test Item Value Reference Range Interpretation Comments UA Color (test code = Yellow (12/26/21 11:03 UA Color) AM) [facility] [id number] 16:03:54 Test Item Value Reference Range Interpretation Comments UA Turbidity (test code = Clear (12/26/21 11:03 UA Turbidity) AM) [facility] [id number] 16:03:54 Test Item Value Reference Range Interpretation Comments UA Spec Grav (test code = UA Spec 1.020 1 Grav) [facility] AND [id number] 16:03:54 Test Item Value Reference Range Interpretation Comments UA pH (test code = UA pH) 7.0 1 5.0-8.0 [facility] AND [id number] 16:03:54 Test Item Value Reference Range Interpretation Comments UA Protein (test code Negative (12/26/21 11:03 = UA Protein) AM) [facility] AND [id number] 16:03:54 Test Item Value Reference Range Interpretation Comments UA Glucose (test code Negative (12/26/21 11:03 = UA Glucose) AM) [facility] AND [id number] 16:03:54 Test Item Value Reference Range Interpretation Comments UA Ketones (test code Negative (12/26/21 11:03 = UA Ketones) AM) [facility] AND [id number] 16:03:54 Test Item Value Reference Range Interpretation Comments UA Bili (test code = Negative (12/26/21 11:03 UA Bili) AM) [facility] AND [id number] 16:03:54 Test Item Value Reference Range Interpretation Comments UA Blood (test code = Trace *ABN*(12/26/21 UA Blood) 11:03 AM) [facility] AND [id number] 16:03:54 Test Item Value Reference Range Interpretation Comments UA Urobilinogen (test code = UA 0.2 0.1-1.0 Urobilinogen) [facility] AND [id number] 16:03:54 Test Item Value Reference Range Interpretation Comments UA Nitrite (test code Negative (12/26/21 11:03 = UA Nitrite) AM) [facility] AND [id number] 16:03:54 Test Item Value Reference Range Interpretation Comments UA Leuk Est (test Negative (12/26/21 11:03 code = UA Leuk Est) AM) [facility] AND [id number] 16:03:54 Test Item Value Reference Range Interpretation Comments UA Sq Epi (test code = UA Sq Occasional /LPF Epi) [facility] AND [id number] 16:03:54 Test Item Value Reference Range Interpretation Comments UA WBC (test code = no gt See_Comment [Automa suze message] The UA WBC) system which ge nerated this result transmit suze reference range : <=5. The reference range was not used to interpr et this result as anselmo l/abnormal. [facility] [id number] 16:03:54 Test Item Value Reference Range Interpretation Comments UA RBC (test code = 12 See_Comment [Automa suze message] The UA RBC) system which ge nerated this result transmit suze reference range : <=2. The reference range was not used to interpr et this result as anselmo l/abnormal. [facility] [id number] 16:03:54 Test Item Value Reference Range Interpretation Comments UA Mucus (test code = UA Mucus) Few /LPF [facility] [id number] 16:03:54 Test Item Value Reference Range Interpretation Comments U Amph Scr (test code Negative *NA*(12/26/21 = U Amph Scr) 11:03 AM) [facility] [id number] 16:03:54 Test Item Value Reference Range Interpretation Comments U Sruthi Scr (test code Negative *NA*(12/26/21 = U Sruthi Scr) 11:03 AM) [facility] [id number] 16:03:54 Test Item Value Reference Range Interpretation Comments U Benzodiaz Scr (test Negative *NA*(12/26/21 code = U Benzodiaz Scr) 11:03 AM) [facility] [id number] 16:03:54 Test Item Value Reference Range Interpretation Comments U Cocaine Scr (test Negative *NA*(12/26/21 code = U Cocaine Scr) 11:03 AM) [facility] [id number] 16:03:54 Test Item Value Reference Range Interpretation Comments U Cannab Scr (test Negative *NA*(12/26/21 code = U Cannab Scr) 11:03 AM) [facility] [id number] 16:03:54 Test Item Value Reference Range Interpretation Comments U Opiate Scr (test Negative *NA*(12/26/21 code = U Opiate Scr) 11:03 AM) [facility] [id number] 16:03:54 Test Item Value Reference Range Interpretation Comments U Phencyclidine Scr (test Negative code = U Phencyclidine *NA*(12/26/21 11:03 Scr) AM) [facility] [id number] 16:03:54 Test Item Value Reference Range Interpretation Comments U Methadone Scr (test Negative *NA*(12/26/21 code = U Methadone Scr) 11:03 AM) [facility] [id number] 16:03:54 Test Item Value Reference Range Interpretation Comments U Propoxyph Scr (test Negative *NA*(12/26/21 code = U Propoxyph Scr) 11:03 AM) [facility] [id number] 16:03:54 Test Item Value Reference Range Interpretation Comments UDS Note (test code = See Note (12/26/21 11:03 UDS Note) AM) [facility] [id number] 16:03:54 Test Item Value Reference Range Interpretation Comments UA Color (test code = Yellow (12/26/21 11:03 UA Color) AM) [facility] [id number] 16:03:54 Test Item Value Reference Range Interpretation Comments UA Turbidity (test code = Clear (12/26/21 11:03 UA Turbidity) AM) [facility] [id number] 16:03:54 Test Item Value Reference Range Interpretation Comments UA Spec Grav (test code = UA Spec 1.020 1 Grav) [facility] [id number] 16:03:54 Test Item Value Reference Range Interpretation Comments UA pH (test code = UA pH) 7.0 1 5.0-8.0 [facility] [id number] 16:03:54 Test Item Value Reference Range Interpretation Comments UA Protein (test code Negative (12/26/21 11:03 = UA Protein) AM) [facility] [id number] 16:03:54 Test Item Value Reference Range Interpretation Comments UA Glucose (test code Negative (12/26/21 11:03 = UA Glucose) AM) [facility] [id number] 16:03:54 Test Item Value Reference Range Interpretation Comments UA Ketones (test code Negative (12/26/21 11:03 = UA Ketones) AM) [facility] [id number] 16:03:54 Test Item Value Reference Range Interpretation Comments UA Bili (test code = Negative (12/26/21 11:03 UA Bili) AM) [facility] [id number] 16:03:54 Test Item Value Reference Range Interpretation Comments UA Blood (test code = Trace *ABN*(12/26/21 UA Blood) 11:03 AM) [facility] [id number] 16:03:54 Test Item Value Reference Range Interpretation Comments UA Urobilinogen (test code = UA 0.2 0.1-1.0 Urobilinogen) [facility] [id number] 16:03:54 Test Item Value Reference Range Interpretation Comments UA Nitrite (test code Negative (12/26/21 11:03 = UA Nitrite) AM) [facility] [id number] 16:03:54 Test Item Value Reference Range Interpretation Comments UA Leuk Est (test Negative (12/26/21 11:03 code = UA Leuk Est) AM) [facility] [id number] 16:03:54 Test Item Value Reference Range Interpretation Comments UA Sq Epi (test code = UA Sq Occasional /LPF Epi) [facility] [id number] 16:03:54 Test Item Value Reference Range Interpretation Comments UA WBC (test code = no gt See_Comment [Automa suze message] The UA WBC) system which ge nerated this result transmit suze reference range : <=5. The reference range was not used to interpr et this result as anselmo l/abnormal. [facility] [id number] 16:03:54 Test Item Value Reference Range Interpretation Comments UA RBC (test code = 12 See_Comment [Automa suze message] The UA RBC) system which ge nerated this result transmit suze reference range : <=2. The reference range was not used to interpr et this result as anselmo l/abnormal. [facility] [id number] 16:03:54 Test Item Value Reference Range Interpretation Comments UA Mucus (test code = UA Mucus) Few /LPF [facility] [id number] 16:03:54 Test Item Value Reference Range Interpretation Comments U Amph Scr (test code Negative *NA*(12/26/21 = U Amph Scr) 11:03 AM) [facility] [id number] 16:03:54 Test Item Value Reference Range Interpretation Comments U Sruthi Scr (test code Negative *NA*(12/26/21 = U Sruthi Scr) 11:03 AM) [facility] [id number] 16:03:54 Test Item Value Reference Range Interpretation Comments U Benzodiaz Scr (test Negative *NA*(12/26/21 code = U Benzodiaz Scr) 11:03 AM) [facility] [id number] 16:03:54 Test Item Value Reference Range Interpretation Comments U Cocaine Scr (test Negative *NA*(12/26/21 code = U Cocaine Scr) 11:03 AM) [facility] [id number] 16:03:54 Test Item Value Reference Range Interpretation Comments U Amph Scr (test code Negative *NA*(12/26/21 = U Amph Scr) 11:03 AM) [facility] [id number] 16:03:54 Test Item Value Reference Range Interpretation Comments U Sruthi Scr (test code Negative *NA*(12/26/21 = U Sruthi Scr) 11:03 AM) [facility] [id number] 16:03:54 Test Item Value Reference Range Interpretation Comments U Benzodiaz Scr (test Negative *NA*(12/26/21 code = U Benzodiaz Scr) 11:03 AM) [facility] [id number] 16:03:54 Test Item Value Reference Range Interpretation Comments U Cocaine Scr (test Negative *NA*(12/26/21 code = U Cocaine Scr) 11:03 AM) [facility] [id number] 16:03:54 Test Item Value Reference Range Interpretation Comments U Cannab Scr (test Negative *NA*(12/26/21 code = U Cannab Scr) 11:03 AM) [facility] [id number] 16:03:54 Test Item Value Reference Range Interpretation Comments U Opiate Scr (test Negative *NA*(12/26/21 code = U Opiate Scr) 11:03 AM) [facility] [id number] 16:03:54 Test Item Value Reference Range Interpretation Comments U Phencyclidine Scr (test Negative code = U Phencyclidine *NA*(12/26/21 11:03 Scr) AM) [facility] [id number] 16:03:54 Test Item Value Reference Range Interpretation Comments U Methadone Scr (test Negative *NA*(12/26/21 code = U Methadone Scr) 11:03 AM) [facility] [id number] 16:03:54 Test Item Value Reference Range Interpretation Comments U Propoxyph Scr (test Negative *NA*(12/26/21 code = U Propoxyph Scr) 11:03 AM) [facility] [id number] 16:03:54 Test Item Value Reference Range Interpretation Comments UDS Note (test code = See Note (12/26/21 11:03 UDS Note) AM) [facility] [id number] 16:03:54 Test Item Value Reference Range Interpretation Comments UA Color (test code = Yellow (12/26/21 11:03 UA Color) AM) [facility] [id number] 16:03:54 Test Item Value Reference Range Interpretation Comments UA Turbidity (test code = Clear (12/26/21 11:03 UA Turbidity) AM) [facility] [id number] 16:03:54 Test Item Value Reference Range Interpretation Comments UA Spec Grav (test code = UA Spec 1.020 1 Grav) [facility] [id number] 16:03:54 Test Item Value Reference Range Interpretation Comments UA pH (test code = UA pH) 7.0 1 5.0-8.0 [facility] [id number] 16:03:54 Test Item Value Reference Range Interpretation Comments UA Protein (test code Negative (12/26/21 11:03 = UA Protein) AM) [facility] [id number] 16:03:54 Test Item Value Reference Range Interpretation Comments UA Glucose (test code Negative (12/26/21 11:03 = UA Glucose) AM) [facility] [id number] 16:03:54 Test Item Value Reference Range Interpretation Comments UA Ketones (test code Negative (12/26/21 11:03 = UA Ketones) AM) [facility] [id number] 16:03:54 Test Item Value Reference Range Interpretation Comments UA Bili (test code = Negative (12/26/21 11:03 UA Bili) AM) [facility] [id number] 16:03:54 Test Item Value Reference Range Interpretation Comments UA Blood (test code = Trace *ABN*(12/26/21 UA Blood) 11:03 AM) [facility] [id number] 16:03:54 Test Item Value Reference Range Interpretation Comments UA Urobilinogen (test code = UA 0.2 0.1-1.0 Urobilinogen) [facility] [id number] 16:03:54 Test Item Value Reference Range Interpretation Comments UA Nitrite (test code Negative (12/26/21 11:03 = UA Nitrite) AM) [facility] [id number] 16:03:54 Test Item Value Reference Range Interpretation Comments UA Leuk Est (test Negative (12/26/21 11:03 code = UA Leuk Est) AM) [facility] [id number] 16:03:54 Test Item Value Reference Range Interpretation Comments UA Sq Epi (test code = UA Sq Occasional /LPF Epi) [facility] [id number] 16:03:54 Test Item Value Reference Range Interpretation Comments UA WBC (test code = no gt See_Comment [Automa suze message] The UA WBC) system which ge nerated this result transmit suze reference range : <=5. The reference range was not used to interpr et this result as anselmo l/abnormal. [facility] [id number] 16:03:54 Test Item Value Reference Range Interpretation Comments UA RBC (test code = 12 See_Comment [Automa suze message] The UA RBC) system which ge nerated this result transmit suze reference range : <=2. The reference range was not used to interpr et this result as anselmo l/abnormal. [facility] [id number] 16:03:54 Test Item Value Reference Range Interpretation Comments UA Mucus (test code = UA Mucus) Few /LPF [facility] [id number] 16:03:54 Test Item Value Reference Range Interpretation Comments U Cannab Scr (test Negative *NA*(12/26/21 code = U Cannab Scr) 11:03 AM) [facility] [id number] 16:03:54 Test Item Value Reference Range Interpretation Comments U Opiate Scr (test Negative *NA*(12/26/21 code = U Opiate Scr) 11:03 AM) [facility] [id number] 16:03:54 Test Item Value Reference Range Interpretation Comments U Amph Scr (test code Negative *NA*(12/26/21 = U Amph Scr) 11:03 AM) [facility] [id number] 16:03:54 Test Item Value Reference Range Interpretation Comments U Sruthi Scr (test code Negative *NA*(12/26/21 = U Sruthi Scr) 11:03 AM) [facility] [id number] 16:03:54 Test Item Value Reference Range Interpretation Comments U Benzodiaz Scr (test Negative *NA*(12/26/21 code = U Benzodiaz Scr) 11:03 AM) [facility] [id number] 16:03:54 Test Item Value Reference Range Interpretation Comments U Cocaine Scr (test Negative *NA*(12/26/21 code = U Cocaine Scr) 11:03 AM) [facility] [id number] 16:03:54 Test Item Value Reference Range Interpretation Comments U Cannab Scr (test Negative *NA*(12/26/21 code = U Cannab Scr) 11:03 AM) [facility] [id number] 16:03:54 Test Item Value Reference Range Interpretation Comments U Opiate Scr (test Negative *NA*(12/26/21 code = U Opiate Scr) 11:03 AM) [facility] [id number] 16:03:54 Test Item Value Reference Range Interpretation Comments U Phencyclidine Scr (test Negative code = U Phencyclidine *NA*(12/26/21 11:03 Scr) AM) [facility] [id number] 16:03:54 Test Item Value Reference Range Interpretation Comments U Methadone Scr (test Negative *NA*(12/26/21 code = U Methadone Scr) 11:03 AM) [facility] [id number] 16:03:54 Test Item Value Reference Range Interpretation Comments U Propoxyph Scr (test Negative *NA*(12/26/21 code = U Propoxyph Scr) 11:03 AM) [facility] [id number] 16:03:54 Test Item Value Reference Range Interpretation Comments UDS Note (test code = See Note (12/26/21 11:03 UDS Note) AM) [facility] [id number] 16:03:54 Test Item Value Reference Range Interpretation Comments U Phencyclidine Scr (test Negative code = U Phencyclidine *NA*(12/26/21 11:03 Scr) AM) [facility] [id number] 16:03:54 Test Item Value Reference Range Interpretation Comments UA Color (test code = Yellow (12/26/21 11:03 UA Color) AM) [facility] [id number] 16:03:54 Test Item Value Reference Range Interpretation Comments UA Turbidity (test code = Clear (12/26/21 11:03 UA Turbidity) AM) [facility] [id number] 16:03:54 Test Item Value Reference Range Interpretation Comments UA Spec Grav (test code = UA Spec 1.020 1 Grav) [facility] [id number] 16:03:54 Test Item Value Reference Range Interpretation Comments UA pH (test code = UA pH) 7.0 1 5.0-8.0 [facility] [id number] 16:03:54 Test Item Value Reference Range Interpretation Comments UA Protein (test code Negative (12/26/21 11:03 = UA Protein) AM) [facility] [id number] 16:03:54 Test Item Value Reference Range Interpretation Comments UA Glucose (test code Negative (12/26/21 11:03 = UA Glucose) AM) [facility] [id number] 16:03:54 Test Item Value Reference Range Interpretation Comments UA Ketones (test code Negative (12/26/21 11:03 = UA Ketones) AM) [facility] [id number] 16:03:54 Test Item Value Reference Range Interpretation Comments UA Bili (test code = Negative (12/26/21 11:03 UA Bili) AM) [facility] [id number] 16:03:54 Test Item Value Reference Range Interpretation Comments UA Blood (test code = Trace *ABN*(12/26/21 UA Blood) 11:03 AM) [facility] [id number] 16:03:54 Test Item Value Reference Range Interpretation Comments UA Urobilinogen (test code = UA 0.2 0.1-1.0 Urobilinogen) [facility] [id number] 16:03:54 Test Item Value Reference Range Interpretation Comments U Methadone Scr (test Negative *NA*(12/26/21 code = U Methadone Scr) 11:03 AM) [facility] [id number] 16:03:54 Test Item Value Reference Range Interpretation Comments UA Nitrite (test code Negative (12/26/21 11:03 = UA Nitrite) AM) [facility] [id number] 16:03:54 Test Item Value Reference Range Interpretation Comments UA Leuk Est (test Negative (12/26/21 11:03 code = UA Leuk Est) AM) [facility] [id number] 16:03:54 Test Item Value Reference Range Interpretation Comments UA Sq Epi (test code = UA Sq Occasional /LPF Epi) [facility] [id number] 16:03:54 Test Item Value Reference Range Interpretation Comments UA WBC (test code = no gt See_Comment [Automa suze message] The UA WBC) system which ge nerated this result transmit suze reference range : <=5. The reference range was not used to interpr et this result as anselmo l/abnormal. [facility] [id number] 16:03:54 Test Item Value Reference Range Interpretation Comments UA RBC (test code = 12 See_Comment [Automa suze message] The UA RBC) system which ge nerated this result transmit suze reference range : <=2. The reference range was not used to interpr et this result as anselmo l/abnormal. [facility] [id number] 16:03:54 Test Item Value Reference Range Interpretation Comments UA Mucus (test code = UA Mucus) Few /LPF [facility] [id number] 16:03:54 Test Item Value Reference Range Interpretation Comments U Amph Scr (test code Negative *NA*(12/26/21 = U Amph Scr) 11:03 AM) [facility] [id number] 16:03:54 Test Item Value Reference Range Interpretation Comments U Sruthi Scr (test code Negative *NA*(12/26/21 = U Sruthi Scr) 11:03 AM) [facility] [id number] 16:03:54 Test Item Value Reference Range Interpretation Comments U Benzodiaz Scr (test Negative *NA*(12/26/21 code = U Benzodiaz Scr) 11:03 AM) [facility] [id number] 16:03:54 Test Item Value Reference Range Interpretation Comments U Cocaine Scr (test Negative *NA*(12/26/21 code = U Cocaine Scr) 11:03 AM) [facility] [id number] 16:03:54 Test Item Value Reference Range Interpretation Comments U Cannab Scr (test Negative *NA*(12/26/21 code = U Cannab Scr) 11:03 AM) [facility] [id number] 16:03:54 Test Item Value Reference Range Interpretation Comments U Opiate Scr (test Negative *NA*(12/26/21 code = U Opiate Scr) 11:03 AM) [facility] [id number] 16:03:54 Test Item Value Reference Range Interpretation Comments U Phencyclidine Scr (test Negative code = U Phencyclidine *NA*(12/26/21 11:03 Scr) AM) [facility] [id number] 16:03:54 Test Item Value Reference Range Interpretation Comments U Methadone Scr (test Negative *NA*(12/26/21 code = U Methadone Scr) 11:03 AM) [facility] [id number] 16:03:54 Test Item Value Reference Range Interpretation Comments U Propoxyph Scr (test Negative *NA*(12/26/21 code = U Propoxyph Scr) 11:03 AM) [facility] [id number] 16:03:54 Test Item Value Reference Range Interpretation Comments UDS Note (test code = See Note (12/26/21 11:03 UDS Note) AM) [facility] [id number] 16:03:54 Test Item Value Reference Range Interpretation Comments UA Color (test code = Yellow (12/26/21 11:03 UA Color) AM) [facility] [id number] 16:03:54 Test Item Value Reference Range Interpretation Comments UA Turbidity (test code = Clear (12/26/21 11:03 UA Turbidity) AM) [facility] [id number] 16:03:54 Test Item Value Reference Range Interpretation Comments UA Spec Grav (test code = UA Spec 1.020 1 Grav) [facility] [id number] 16:03:54 Test Item Value Reference Range Interpretation Comments UA pH (test code = UA pH) 7.0 1 5.0-8.0 [facility] [id number] 16:03:54 Test Item Value Reference Range Interpretation Comments UA Protein (test code Negative (12/26/21 11:03 = UA Protein) AM) [facility] [id number] 16:03:54 Test Item Value Reference Range Interpretation Comments UA Glucose (test code Negative (12/26/21 11:03 = UA Glucose) AM) [facility] [id number] 16:03:54 Test Item Value Reference Range Interpretation Comments UA Ketones (test code Negative (12/26/21 11:03 = UA Ketones) AM) [facility] AND [id number] 16:03:54 Test Item Value Reference Range Interpretation Comments UA Bili (test code = Negative (12/26/21 11:03 UA Bili) AM) [facility] AND [id number] 16:03:54 Test Item Value Reference Range Interpretation Comments UA Blood (test code = Trace *ABN*(12/26/21 UA Blood) 11:03 AM) [facility] AND [id number] 16:03:54 Test Item Value Reference Range Interpretation Comments UA Urobilinogen (test code = UA 0.2 0.1-1.0 Urobilinogen) [facility] AND [id number] 16:03:54 Test Item Value Reference Range Interpretation Comments UA Nitrite (test code Negative (12/26/21 11:03 = UA Nitrite) AM) [facility] [id number] 16:03:54 Test Item Value Reference Range Interpretation Comments UA Leuk Est (test Negative (12/26/21 11:03 code = UA Leuk Est) AM) [facility] [id number] 16:03:54 Test Item Value Reference Range Interpretation Comments UA Sq Epi (test code = UA Sq Occasional /LPF Epi) [facility] AND [id number] 16:03:54 Test Item Value Reference Range Interpretation Comments UA WBC (test code = no gt See_Comment [Automa suze message] The UA WBC) system which ge nerated this result transmit suze reference range : <=5. The reference range was not used to interpr et this result as anselmo l/abnormal. [facility] [id number] 16:03:54 Test Item Value Reference Range Interpretation Comments UA RBC (test code = 12 See_Comment [Automa suze message] The UA RBC) system which ge nerated this result transmit suze reference range : <=2. The reference range was not used to interpr et this result as anselmo l/abnormal. [facility] [id number] 16:03:54 Test Item Value Reference Range Interpretation Comments UA Mucus (test code = UA Mucus) Few /LPF [facility] [id number] 16:03:54 Test Item Value Reference Range Interpretation Comments U Propoxyph Scr (test Negative *NA*(12/26/21 code = U Propoxyph Scr) 11:03 AM) [facility] [id number] 16:03:54 Test Item Value Reference Range Interpretation Comments UDS Note (test code = See Note (12/26/21 11:03 UDS Note) AM) [facility] [id number] 16:03:54 Test Item Value Reference Range Interpretation Comments UA Color (test code = Yellow (12/26/21 11:03 UA Color) AM) [facility] [id number] 16:03:54 Test Item Value Reference Range Interpretation Comments UA Turbidity (test code = Clear (12/26/21 11:03 UA Turbidity) AM) [facility] [id number] 16:03:54 Test Item Value Reference Range Interpretation Comments UA Spec Grav (test code = UA Spec 1.020 1 Grav) [facility] [id number] 16:03:54 Test Item Value Reference Range Interpretation Comments UA pH (test code = UA pH) 7.0 1 5.0-8.0 [facility] [id number] 16:03:54 Test Item Value Reference Range Interpretation Comments U Amph Scr (test code Negative *NA*(12/26/21 = U Amph Scr) 11:03 AM) [facility] [id number] 16:03:54 Test Item Value Reference Range Interpretation Comments U Sruthi Scr (test code Negative *NA*(12/26/21 = U Sruthi Scr) 11:03 AM) [facility] [id number] 16:03:54 Test Item Value Reference Range Interpretation Comments U Benzodiaz Scr (test Negative *NA*(12/26/21 code = U Benzodiaz Scr) 11:03 AM) [facility] [id number] 16:03:54 Test Item Value Reference Range Interpretation Comments U Cocaine Scr (test Negative *NA*(12/26/21 code = U Cocaine Scr) 11:03 AM) [facility] [id number] 16:03:54 Test Item Value Reference Range Interpretation Comments U Cannab Scr (test Negative *NA*(12/26/21 code = U Cannab Scr) 11:03 AM) [facility] [id number] 16:03:54 Test Item Value Reference Range Interpretation Comments U Opiate Scr (test Negative *NA*(12/26/21 code = U Opiate Scr) 11:03 AM) [facility] [id number] 16:03:54 Test Item Value Reference Range Interpretation Comments U Phencyclidine Scr (test Negative code = U Phencyclidine *NA*(12/26/21 11:03 Scr) AM) [facility] [id number] 16:03:54 Test Item Value Reference Range Interpretation Comments U Methadone Scr (test Negative *NA*(12/26/21 code = U Methadone Scr) 11:03 AM) [facility] [id number] 16:03:54 Test Item Value Reference Range Interpretation Comments U Propoxyph Scr (test Negative *NA*(12/26/21 code = U Propoxyph Scr) 11:03 AM) [facility] [id number] 16:03:54 Test Item Value Reference Range Interpretation Comments UDS Note (test code = See Note (12/26/21 11:03 UDS Note) AM) [facility] [id number] 16:03:54 Test Item Value Reference Range Interpretation Comments UA Color (test code = Yellow (12/26/21 11:03 UA Color) AM) [facility] [id number] 16:03:54 Test Item Value Reference Range Interpretation Comments UA Turbidity (test code = Clear (12/26/21 11:03 UA Turbidity) AM) [facility] AND [id number] 16:03:54 Test Item Value Reference Range Interpretation Comments UA Spec Grav (test code = UA Spec 1.020 1 Grav) [facility] AND [id number] 16:03:54 Test Item Value Reference Range Interpretation Comments UA pH (test code = UA pH) 7.0 1 5.0-8.0 [facility] AND [id number] 16:03:54 Test Item Value Reference Range Interpretation Comments UA Protein (test code Negative (12/26/21 11:03 = UA Protein) AM) [facility] AND [id number] 16:03:54 Test Item Value Reference Range Interpretation Comments UA Glucose (test code Negative (12/26/21 11:03 = UA Glucose) AM) [facility] AND [id number] 16:03:54 Test Item Value Reference Range Interpretation Comments UA Ketones (test code Negative (12/26/21 11:03 = UA Ketones) AM) [facility] AND [id number] 16:03:54 Test Item Value Reference Range Interpretation Comments UA Bili (test code = Negative (12/26/21 11:03 UA Bili) AM) [facility] AND [id number] 16:03:54 Test Item Value Reference Range Interpretation Comments UA Blood (test code = Trace *ABN*(12/26/21 UA Blood) 11:03 AM) [facility] AND [id number] 16:03:54 Test Item Value Reference Range Interpretation Comments UA Urobilinogen (test code = UA 0.2 0.1-1.0 Urobilinogen) [facility] AND [id number] 16:03:54 Test Item Value Reference Range Interpretation Comments UA Nitrite (test code Negative (12/26/21 11:03 = UA Nitrite) AM) [facility] AND [id number] 16:03:54 Test Item Value Reference Range Interpretation Comments UA Leuk Est (test Negative (12/26/21 11:03 code = UA Leuk Est) AM) [facility] [id number] 16:03:54 Test Item Value Reference Range Interpretation Comments UA Sq Epi (test code = UA Sq Occasional /LPF Epi) [facility] [id number] 16:03:54 Test Item Value Reference Range Interpretation Comments UA WBC (test code = no gt See_Comment [Automa suze message] The UA WBC) system which ge nerated this result transmit suze reference range : <=5. The reference range was not used to interpr et this result as anselmo l/abnormal. [facility] [id number] 16:03:54 Test Item Value Reference Range Interpretation Comments UA RBC (test code = 12 See_Comment [Automa suze message] The UA RBC) system which ge nerated this result transmit suze reference range : <=2. The reference range was not used to interpr et this result as anselmo l/abnormal. [facility] [id number] 16:03:54 Test Item Value Reference Range Interpretation Comments UA Mucus (test code = UA Mucus) Few /LPF [facility] [id number] 16:03:54 Test Item Value Reference Range Interpretation Comments UA Protein (test code Negative (12/26/21 11:03 = UA Protein) AM) [facility] [id number] 16:03:54 Test Item Value Reference Range Interpretation Comments UA Glucose (test code Negative (12/26/21 11:03 = UA Glucose) AM) [facility] [id number] 16:03:54 Test Item Value Reference Range Interpretation Comments U Amph Scr (test code Negative *NA*(12/26/21 = U Amph Scr) 11:03 AM) [facility] [id number] 16:03:54 Test Item Value Reference Range Interpretation Comments UA Ketones (test code Negative (12/26/21 11:03 = UA Ketones) AM) [facility] [id number] 16:03:54 Test Item Value Reference Range Interpretation Comments U Sruthi Scr (test code Negative *NA*(12/26/21 = U Sruthi Scr) 11:03 AM) [facility] [id number] 16:03:54 Test Item Value Reference Range Interpretation Comments U Benzodiaz Scr (test Negative *NA*(12/26/21 code = U Benzodiaz Scr) 11:03 AM) [facility] [id number] 16:03:54 Test Item Value Reference Range Interpretation Comments U Cocaine Scr (test Negative *NA*(12/26/21 code = U Cocaine Scr) 11:03 AM) [facility] [id number] 16:03:54 Test Item Value Reference Range Interpretation Comments U Cannab Scr (test Negative *NA*(12/26/21 code = U Cannab Scr) 11:03 AM) [facility] [id number] 16:03:54 Test Item Value Reference Range Interpretation Comments U Opiate Scr (test Negative *NA*(12/26/21 code = U Opiate Scr) 11:03 AM) [facility] [id number] 16:03:54 Test Item Value Reference Range Interpretation Comments U Phencyclidine Scr (test Negative code = U Phencyclidine *NA*(12/26/21 11:03 Scr) AM) [facility] [id number] 16:03:54 Test Item Value Reference Range Interpretation Comments U Methadone Scr (test Negative *NA*(12/26/21 code = U Methadone Scr) 11:03 AM) [facility] [id number] 16:03:54 Test Item Value Reference Range Interpretation Comments U Propoxyph Scr (test Negative *NA*(12/26/21 code = U Propoxyph Scr) 11:03 AM) [facility] [id number] 16:03:54 Test Item Value Reference Range Interpretation Comments UDS Note (test code = See Note (12/26/21 11:03 UDS Note) AM) [facility] [id number] 16:03:54 Test Item Value Reference Range Interpretation Comments UA Color (test code = Yellow (12/26/21 11:03 UA Color) AM) [facility] [id number] 16:03:54 Test Item Value Reference Range Interpretation Comments UA Bili (test code = Negative (12/26/21 11:03 UA Bili) AM) [facility] [id number] 16:03:54 Test Item Value Reference Range Interpretation Comments UA Turbidity (test code = Clear (12/26/21 11:03 UA Turbidity) AM) [facility] [id number] 16:03:54 Test Item Value Reference Range Interpretation Comments UA Spec Grav (test code = UA Spec 1.020 1 Grav) [facility] [id number] 16:03:54 Test Item Value Reference Range Interpretation Comments UA pH (test code = UA pH) 7.0 1 5.0-8.0 [facility] [id number] 16:03:54 Test Item Value Reference Range Interpretation Comments UA Protein (test code Negative (12/26/21 11:03 = UA Protein) AM) [facility] [id number] 16:03:54 Test Item Value Reference Range Interpretation Comments UA Glucose (test code Negative (12/26/21 11:03 = UA Glucose) AM) [facility] [id number] 16:03:54 Test Item Value Reference Range Interpretation Comments UA Ketones (test code Negative (12/26/21 11:03 = UA Ketones) AM) [facility] [id number] 16:03:54 Test Item Value Reference Range Interpretation Comments UA Bili (test code = Negative (12/26/21 11:03 UA Bili) AM) [facility] AND [id number] 16:03:54 Test Item Value Reference Range Interpretation Comments UA Blood (test code = Trace *ABN*(12/26/21 UA Blood) 11:03 AM) [facility] AND [id number] 16:03:54 Test Item Value Reference Range Interpretation Comments UA Urobilinogen (test code = UA 0.2 0.1-1.0 Urobilinogen) [facility] [id number] 16:03:54 Test Item Value Reference Range Interpretation Comments UA Nitrite (test code Negative (12/26/21 11:03 = UA Nitrite) AM) [facility] [id number] 16:03:54 Test Item Value Reference Range Interpretation Comments UA Blood (test code = Trace *ABN*(12/26/21 UA Blood) 11:03 AM) [facility] [id number] 16:03:54 Test Item Value Reference Range Interpretation Comments UA Leuk Est (test Negative (12/26/21 11:03 code = UA Leuk Est) AM) [facility] [id number] 16:03:54 Test Item Value Reference Range Interpretation Comments UA Sq Epi (test code = UA Sq Occasional /LPF Epi) [facility] [id number] 16:03:54 Test Item Value Reference Range Interpretation Comments UA WBC (test code = no gt See_Comment [Automa suze message] The UA WBC) system which ge nerated this result transmit suze reference range : <=5. The reference range was not used to interpr et this result as anselmo l/abnormal. [facility] [id number] 16:03:54 Test Item Value Reference Range Interpretation Comments UA RBC (test code = 12 See_Comment [Automa suze message] The UA RBC) system which ge nerated this result transmit suze reference range : <=2. The reference range was not used to interpr et this result as anselmo l/abnormal. [facility] [id number] 16:03:54 Test Item Value Reference Range Interpretation Comments U Amph Scr (test code Negative *NA*(12/26/21 = U Amph Scr) 11:03 AM) [facility] [id number] 16:03:54 Test Item Value Reference Range Interpretation Comments U Sruthi Scr (test code Negative *NA*(12/26/21 = U Sruthi Scr) 11:03 AM) [facility] [id number] 16:03:54 Test Item Value Reference Range Interpretation Comments U Benzodiaz Scr (test Negative *NA*(12/26/21 code = U Benzodiaz Scr) 11:03 AM) [facility] [id number] 16:03:54 Test Item Value Reference Range Interpretation Comments U Cocaine Scr (test Negative *NA*(12/26/21 code = U Cocaine Scr) 11:03 AM) [facility] [id number] 16:03:54 Test Item Value Reference Range Interpretation Comments UA Mucus (test code = UA Mucus) Few /LPF [facility] [id number] 16:03:54 Test Item Value Reference Range Interpretation Comments U Cannab Scr (test Negative *NA*(12/26/21 code = U Cannab Scr) 11:03 AM) [facility] [id number] 16:03:54 Test Item Value Reference Range Interpretation Comments U Opiate Scr (test Negative *NA*(12/26/21 code = U Opiate Scr) 11:03 AM) [facility] [id number] 16:03:54 Test Item Value Reference Range Interpretation Comments U Phencyclidine Scr (test Negative code = U Phencyclidine *NA*(12/26/21 11:03 Scr) AM) [facility] [id number] 16:03:54 Test Item Value Reference Range Interpretation Comments U Methadone Scr (test Negative *NA*(12/26/21 code = U Methadone Scr) 11:03 AM) [facility] [id number] 16:03:54 Test Item Value Reference Range Interpretation Comments U Propoxyph Scr (test Negative *NA*(12/26/21 code = U Propoxyph Scr) 11:03 AM) [facility] [id number] 16:03:54 Test Item Value Reference Range Interpretation Comments UDS Note (test code = See Note (12/26/21 11:03 UDS Note) AM) [facility] [id number] 16:03:54 Test Item Value Reference Range Interpretation Comments UA Color (test code = Yellow (12/26/21 11:03 UA Color) AM) [facility] [id number] 16:03:54 Test Item Value Reference Range Interpretation Comments UA Turbidity (test code = Clear (12/26/21 11:03 UA Turbidity) AM) [facility] [id number] 16:03:54 Test Item Value Reference Range Interpretation Comments UA Spec Grav (test code = UA Spec 1.020 1 Grav) [facility] [id number] 16:03:54 Test Item Value Reference Range Interpretation Comments UA pH (test code = UA pH) 7.0 1 5.0-8.0 [facility] [id number] 16:03:54 Test Item Value Reference Range Interpretation Comments UA Protein (test code Negative (12/26/21 11:03 = UA Protein) AM) [facility] [id number] 16:03:54 Test Item Value Reference Range Interpretation Comments UA Glucose (test code Negative (12/26/21 11:03 = UA Glucose) AM) [facility] AND [id number] 16:03:54 Test Item Value Reference Range Interpretation Comments UA Ketones (test code Negative (12/26/21 11:03 = UA Ketones) AM) [facility] [id number] 16:03:54 Test Item Value Reference Range Interpretation Comments UA Bili (test code = Negative (12/26/21 11:03 UA Bili) AM) [facility] AND [id number] 16:03:54 Test Item Value Reference Range Interpretation Comments UA Blood (test code = Trace *ABN*(12/26/21 UA Blood) 11:03 AM) [facility] AND [id number] 16:03:54 Test Item Value Reference Range Interpretation Comments UA Urobilinogen (test code = UA 0.2 0.1-1.0 Urobilinogen) [facility] AND [id number] 16:03:54 Test Item Value Reference Range Interpretation Comments UA Nitrite (test code Negative (12/26/21 11:03 = UA Nitrite) AM) [facility] AND [id number] 16:03:54 Test Item Value Reference Range Interpretation Comments UA Leuk Est (test Negative (12/26/21 11:03 code = UA Leuk Est) AM) [facility] AND [id number] 16:03:54 Test Item Value Reference Range Interpretation Comments UA Sq Epi (test code = UA Sq Occasional /LPF Epi) [facility] AND [id number] 16:03:54 Test Item Value Reference Range Interpretation Comments UA WBC (test code = no gt See_Comment [Automa suze message] The UA WBC) system which ge nerated this result transmit suze reference range : <=5. The reference range was not used to interpr et this result as anselmo l/abnormal. [facility] [id number] 16:03:54 Test Item Value Reference Range Interpretation Comments UA RBC (test code = 12 See_Comment [Automa suze message] The UA RBC) system which ge nerated this result transmit suze reference range : <=2. The reference range was not used to interpr et this result as anselmo l/abnormal. [facility] AND [id number] 16:03:54 Test Item Value Reference Range Interpretation Comments UA Mucus (test code = UA Mucus) [facility] /[facility]F [facility] [id number] 16:03:54 Test Item Value Reference Range Interpretation Comments UA Urobilinogen (test code = UA 0.2 0.1-1.0 Urobilinogen) [facility] [id number] 16:03:54 Test Item Value Reference Range Interpretation Comments UA Nitrite (test code Negative (12/26/21 11:03 = UA Nitrite) AM) [facility] [id number] 16:03:54 Test Item Value Reference Range Interpretation Comments UA Leuk Est (test Negative (12/26/21 11:03 code = UA Leuk Est) AM) [facility] [id number] 16:03:54 Test Item Value Reference Range Interpretation Comments UA Sq Epi (test code = UA Sq Occasional /LPF Epi) [facility] [id number] 16:03:54 Test Item Value Reference Range Interpretation Comments UA WBC (test code = no gt See_Comment [Automa suze message] The UA WBC) system which ge nerated this result transmit suze reference range : <=5. The reference range was not used to interpr et this result as anselmo l/abnormal. [facility] [id number] 16:03:54 Test Item Value Reference Range Interpretation Comments UA RBC (test code = 12 See_Comment [Automa suze message] The UA RBC) system which ge nerated this result transmit suze reference range : <=2. The reference range was not used to interpr et this result as anselmo l/abnormal. [facility] [id number] 16:03:54 Test Item Value Reference Range Interpretation Comments UA Mucus (test code = UA Mucus) Few /LPF [facility] [id number] 16:03:54 Test Item Value Reference Range Interpretation Comments U Amph Scr (test code Negative *NA*(12/26/21 = U Amph Scr) 11:03 AM) [facility] [id number] 16:03:54 Test Item Value Reference Range Interpretation Comments U Sruthi Scr (test code Negative *NA*(12/26/21 = U Sruthi Scr) 11:03 AM) [facility] [id number] 16:03:54 Test Item Value Reference Range Interpretation Comments U Benzodiaz Scr (test Negative *NA*(12/26/21 code = U Benzodiaz Scr) 11:03 AM) [facility] [id number] 16:03:54 Test Item Value Reference Range Interpretation Comments U Cocaine Scr (test Negative *NA*(12/26/21 code = U Cocaine Scr) 11:03 AM) [facility] [id number] 16:03:54 Test Item Value Reference Range Interpretation Comments U Cannab Scr (test Negative *NA*(12/26/21 code = U Cannab Scr) 11:03 AM) [facility] [id number] 16:03:54 Test Item Value Reference Range Interpretation Comments U Opiate Scr (test Negative *NA*(12/26/21 code = U Opiate Scr) 11:03 AM) [facility] [id number] 16:03:54 Test Item Value Reference Range Interpretation Comments U Phencyclidine Scr (test Negative code = U Phencyclidine *NA*(12/26/21 11:03 Scr) AM) [facility] [id number] 16:03:54 Test Item Value Reference Range Interpretation Comments U Methadone Scr (test Negative *NA*(12/26/21 code = U Methadone Scr) 11:03 AM) [facility] [id number] 16:03:54 Test Item Value Reference Range Interpretation Comments U Propoxyph Scr (test Negative *NA*(12/26/21 code = U Propoxyph Scr) 11:03 AM) [facility] [id number] 16:03:54 Test Item Value Reference Range Interpretation Comments UDS Note (test code = See Note (12/26/21 11:03 UDS Note) AM) [facility] [id number] 16:03:54 Test Item Value Reference Range Interpretation Comments UA Color (test code = Yellow (12/26/21 11:03 UA Color) AM) [facility] [id number] 16:03:54 Test Item Value Reference Range Interpretation Comments UA Turbidity (test code = Clear (12/26/21 11:03 UA Turbidity) AM) [facility] [id number] 16:03:54 Test Item Value Reference Range Interpretation Comments UA Spec Grav (test code = UA Spec 1.020 1 Grav) [facility] [id number] 16:03:54 Test Item Value Reference Range Interpretation Comments UA pH (test code = UA pH) 7.0 1 5.0-8.0 [facility] [id number] 16:03:54 Test Item Value Reference Range Interpretation Comments UA Protein (test code Negative (12/26/21 11:03 = UA Protein) AM) [facility] [id number] 16:03:54 Test Item Value Reference Range Interpretation Comments UA Glucose (test code Negative (12/26/21 11:03 = UA Glucose) AM) [facility] [id number] 16:03:54 Test Item Value Reference Range Interpretation Comments UA Ketones (test code Negative (12/26/21 11:03 = UA Ketones) AM) [facility] [id number] 16:03:54 Test Item Value Reference Range Interpretation Comments UA Bili (test code = Negative (12/26/21 11:03 UA Bili) AM) [facility] AND [id number] 16:03:54 Test Item Value Reference Range Interpretation Comments UA Blood (test code = Trace *ABN*(12/26/21 UA Blood) 11:03 AM) [facility] AND [id number] 16:03:54 Test Item Value Reference Range Interpretation Comments UA Urobilinogen (test code = UA 0.2 0.1-1.0 Urobilinogen) [facility] [id number] 16:03:54 Test Item Value Reference Range Interpretation Comments UA Nitrite (test code Negative (12/26/21 11:03 = UA Nitrite) AM) [facility] [id number] 16:03:54 Test Item Value Reference Range Interpretation Comments UA Leuk Est (test Negative (12/26/21 11:03 code = UA Leuk Est) AM) [facility] [id number] 16:03:54 Test Item Value Reference Range Interpretation Comments UA Sq Epi (test code = UA Sq Occasional /LPF Epi) [facility] [id number] 16:03:54 Test Item Value Reference Range Interpretation Comments UA WBC (test code = no gt See_Comment [Automa suze message] The UA WBC) system which ge nerated this result transmit suze reference range : <=5. The reference range was not used to interpr et this result as anselmo l/abnormal. [facility] AND [id number] 16:03:54 Test Item Value Reference Range Interpretation Comments UA RBC (test code = 12 See_Comment [Automa suze message] The UA RBC) system which ge nerated this result transmit suze reference range : <=2. The reference range was not used to interpr et this result as anselmo l/abnormal. [facility] AND [id number] 16:03:54 Test Item Value Reference Range Interpretation Comments UA Mucus (test code = UA Mucus) Few /LPF [facility]2022-08-21 15:25:00 Test Item Value Reference Range Interpretation Comments Glucose Lvl (test code = Glucose Lvl) 90 70-99 [place] 493092-08-21 15:25:00 Test Item Value Reference Range Interpretation Comments BUN (test code = BUN) 18 7-22 [place] 493092-08-21 15:25:00 Test Item Value Reference Range Interpretation Comments Creatinine Lvl (test code = Creatinine 0.96 0.50-1.40 Lvl) [place] 493092-08-21 15:25:00 Test Item Value Reference Range Interpretation Comments Sodium Lvl (test code = Sodium Lvl) 144 135-145 [place] 493092-08-21 15:25:00 Test Item Value Reference Range Interpretation Comments Potassium Lvl (test code = Potassium 4.4 3.5-5.1 Lvl) [place] 493092-08-21 15:25:00 Test Item Value Reference Range Interpretation Comments Chloride Lvl (test code = Chloride Lvl) 112 95-109 [place] 493092-08-21 15:25:00 Test Item Value Reference Range Interpretation Comments CO2 (test code = CO2) 26 24-32 [place] 493092-08-21 15:25:00 Test Item Value Reference Range Interpretation Comments Calcium Lvl (test code = Calcium Lvl) 9.2 8.5-10.5 [place] 493092-08-21 15:25:00 Test Item Value Reference Range Interpretation Comments AGAP (test code = AGAP) 10.4 10.0-20.0 [place] 493092-08-21 15:25:00 Test Item Value Reference Range Interpretation Comments eGFR (test code = eGFR) 100 [facility]2022-08-21 15:25:00 Test Item Value Reference Range Interpretation Comments Magnesium Lvl (test code = Magnesium 2.1 1.8-2.4 Lvl) [facility]2022-08-21 15:25:00 Test Item Value Reference Range Interpretation Comments Phosphorus (test code = Phosphorus) 3.5 2.5-4.5 [place] 505542-08-21 15:25:00 Test Item Value Reference Range Interpretation Comments WBC X 10x3 (test code = WBC X 10x3) 9.0 3.7-10.4 [place] 505542-08-21 15:25:00 Test Item Value Reference Range Interpretation Comments RBC X 10x6 (test code = RBC X 10x6) 4.66 4.70-6.10 [place] 505542-08-21 15:25:00 Test Item Value Reference Range Interpretation Comments Hgb (test code = Hgb) 14.5 14.0-18.0 [place] 505542-08-21 15:25:00 Test Item Value Reference Range Interpretation Comments Hct (test code = Hct) 43.7 42.0-54.0 [place] 505542-08-21 15:25:00 Test Item Value Reference Range Interpretation Comments MCV (test code = MCV) 93.8 80.0-94.0 [place] 505542-08-21 15:25:00 Test Item Value Reference Range Interpretation Comments MCH (test code = MCH) 31.1 pg 27.0-31.0 [place] [address]-08-21 15:25:00 Test Item Value Reference Range Interpretation Comments MCHC (test code = MCHC) 33.1 32.0-36.0 [place] 505542-08-21 15:25:00 Test Item Value Reference Range Interpretation Comments RDW (test code = RDW) 13.7 11.5-14.5 [place] 505542-08-21 15:25:00 Test Item Value Reference Range Interpretation Comments Platelet (test code = Platelet) 214 133-450 [place] 505542-08-21 15:25:00 Test Item Value Reference Range Interpretation Comments MPV (test code = MPV) 9.1 7.4-10.4 [place] 505542-08-21 15:25:00 Test Item Value Reference Range Interpretation Comments Segs (test code = Segs) 63.9 45.0-75.0 [place] 505542-08-21 15:25:00 Test Item Value Reference Range Interpretation Comments Lymphocytes (test code = Lymphocytes) 23.4 20.0-40.0 [place] [address]-08-21 15:25:00 Test Item Value Reference Range Interpretation Comments Monocytes (test code = Monocytes) 7.7 2.0-12.0 [place] 505542-08-21 15:25:00 Test Item Value Reference Range Interpretation Comments Eosinophils (test code = 4.3 See_Comment [A utomated message] The Eosinophils) system which ge nerated this result tra nsmitted reference range : <=4.0. The reference r peri was not used to int erpret this result as normal/abnormal . [place] 505542-08-21 15:25:00 Test Item Value Reference Range Interpretation Comments Basophils (test code = 0.7 See_Comment [Aut omated message] The Basophils) system which ge nerated this result tra nsmitted reference range : <=1.0. The reference r peri was not used to int erpret this result as normal/abnormal . [id number] 15:25:00 Test Item Value Reference Range Interpretation Comments Neutrophils # (test code = Neutrophils 5.8 1.5-8.1 #) [place] 505542-08-21 15:25:00 Test Item Value Reference Range Interpretation Comments Lymphocytes # (test code = Lymphocytes 2.1 1.0-5.5 #) [place] 505542-08-21 15:25:00 Test Item Value Reference Range Interpretation Comments Monocytes # (test code 0.7 See_Comment [Aut omated message] The = Monocytes #) system which generated this result tra nsmitted reference range : <=0.8. The reference r peri was not used to int erpret this result as normal/abnormal . [facility]sgjjgyKYUGTVDHTL8442-[facility] 15:25:00 Test Item Value Reference Range Interpretation Comments Eosinophils # (test code 0.4 See_Comment [A utomated message] The = Eosinophils #) system whic h generated this result tra nsmitted reference range : <=0.5. The reference r peri was not used to int erpret this result as normal/abnormal . [facility] CenterZtorhjdTWBOOEQLVV0981-10-98 15:25:00 Test Item Value Reference Range Interpretation Comments Basophils # (test code 0.1 See_Comment [Aut omated message] The = Basophils #) system which generated this result tra nsmitted reference range : <=0.2. The reference r peri was not used to int erpret this result as normal/abnormal . [facility] CenterKixyktnIXBJOEJOSS9771-20-20 15:25:00 Test Item Value Reference Range Interpretation Comments Acetaminoph Lvl (test code = no gt 10-20 Acetaminoph Lvl) [facility] CenterOcjiakfNARWQJAFCC2414-77-57 15:25:00 Test Item Value Reference Range Interpretation Comments Ethanol Lvl (test code = Ethanol Lvl) no gt [facility] [id number] 15:25:00 Test Item Value Reference Range Interpretation Comments Etoh (%) (test code = Etoh (%)) no gt [facility] CenterCpevndoVCZOJBCWBP7721-54-75 15:25:00 Test Item Value Reference Range Interpretation Comments Salicylate Lvl (test 2.4 See_Comment [Autom ated message] The code = Salicylate Lvl) syste m which generated this result tra nsmitted reference range : <=30.0. The reference r peri was not used to int erpret this result as normal/abnormal . [facility] INcubes [id number] 15:25:00 Test Item Value Reference Range Interpretation Comments Glucose Lvl (test code = Glucose Lvl) 90 70-99 [facility] INcubes [id number] 15:25:00 Test Item Value Reference Range Interpretation Comments BUN (test code = BUN) 18 7-22 [facility] INcubes [id number] 15:25:00 Test Item Value Reference Range Interpretation Comments Creatinine Lvl (test code = Creatinine 0.96 0.50-1.40 Lvl) [place] 493092-08-21 15:25:00 Test Item Value Reference Range Interpretation Comments Sodium Lvl (test code = Sodium Lvl) 144 135-145 [place] 493092-08-21 15:25:00 Test Item Value Reference Range Interpretation Comments Potassium Lvl (test code = Potassium 4.4 3.5-5.1 Lvl) [place] 493092-08-21 15:25:00 Test Item Value Reference Range Interpretation Comments Chloride Lvl (test code = Chloride Lvl) 112 95-109 [place] 493092-08-21 15:25:00 Test Item Value Reference Range Interpretation Comments CO2 (test code = CO2) 26 24-32 [place] 493092-08-21 15:25:00 Test Item Value Reference Range Interpretation Comments Calcium Lvl (test code = Calcium Lvl) 9.2 8.5-10.5 [place] 493092-08-21 15:25:00 Test Item Value Reference Range Interpretation Comments AGAP (test code = AGAP) 10.4 10.0-20.0 [place] 493092-08-21 15:25:00 Test Item Value Reference Range Interpretation Comments eGFR (test code = eGFR) 100 [place] 493092-08-21 15:25:00 Test Item Value Reference Range Interpretation Comments Magnesium Lvl (test code = Magnesium 2.1 1.8-2.4 Lvl) [place] 493092-08-21 15:25:00 Test Item Value Reference Range Interpretation Comments Phosphorus (test code = Phosphorus) 3.5 2.5-4.5 [place] 505542-08-21 15:25:00 Test Item Value Reference Range Interpretation Comments WBC X 10x3 (test code = WBC X 10x3) 9.0 3.7-10.4 [place] [address]-08-21 15:25:00 Test Item Value Reference Range Interpretation Comments RBC X 10x6 (test code = RBC X 10x6) 4.66 4.70-6.10 [place] 505542-08-21 15:25:00 Test Item Value Reference Range Interpretation Comments Hgb (test code = Hgb) 14.5 14.0-18.0 [facility] [id number] 15:25:00 Test Item Value Reference Range Interpretation Comments Hct (test code = Hct) 43.7 42.0-54.0 [facility] CenterFvmgknzTUAFMJVCLB8687-13-19 15:25:00 Test Item Value Reference Range Interpretation Comments MCV (test code = MCV) 93.8 80.0-94.0 [facility] CenterBocscnxDVHVLXFTAY9273-40-97 15:25:00 Test Item Value Reference Range Interpretation Comments MCH (test code = MCH) 31.1 pg 27.0-31.0 [facility] CenterYedyqteAQMDLKJEGU9136-70-83 15:25:00 Test Item Value Reference Range Interpretation Comments MCHC (test code = MCHC) 33.1 32.0-36.0 [facility] CenterUrilqamHJPLCVJNGF7393-45-05 15:25:00 Test Item Value Reference Range Interpretation Comments RDW (test code = RDW) 13.7 11.5-14.5 [facility] CenterXsncsumXGJGTVVPJI9482-79-58 15:25:00 Test Item Value Reference Range Interpretation Comments Platelet (test code = Platelet) 214 133-450 [facility] CenterAizpmdfYOACLFVQUI3444-79-41 15:25:00 Test Item Value Reference Range Interpretation Comments MPV (test code = MPV) 9.1 7.4-10.4 [facility] CenterYqiceoeZLQIENFTJD9541-91-33 15:25:00 Test Item Value Reference Range Interpretation Comments Segs (test code = Segs) 63.9 45.0-75.0 [facility] CenterHizkhwhCSHASROQLI6968-74-15 15:25:00 Test Item Value Reference Range Interpretation Comments Lymphocytes (test code = Lymphocytes) 23.4 20.0-40.0 [place] 505542-08-21 15:25:00 Test Item Value Reference Range Interpretation Comments Monocytes (test code = Monocytes) 7.7 2.0-12.0 [place] 505542-08-21 15:25:00 Test Item Value Reference Range Interpretation Comments Eosinophils (test code = 4.3 See_Comment [A utomated message] The Eosinophils) system which ge nerated this result tra nsmitted reference range : <=4.0. The reference r peri was not used to int erpret this result as normal/abnormal . [place] [address]-08-21 15:25:00 Test Item Value Reference Range Interpretation Comments Basophils (test code = 0.7 See_Comment [Aut omated message] The Basophils) system which ge nerated this result tra nsmitted reference range : <=1.0. The reference r peri was not used to int erpret this result as normal/abnormal . [facility] CenterBrqanutKHXORPPHPH2816-57-36 15:25:00 Test Item Value Reference Range Interpretation Comments Neutrophils # (test code = Neutrophils 5.8 1.5-8.1 #) [facility] CenterCgadwpmROPHASSJOF4399-94-21 15:25:00 Test Item Value Reference Range Interpretation Comments Lymphocytes # (test code = Lymphocytes 2.1 1.0-5.5 #) [facility] CenterNmabfqmMFUSNDYWSL7065-09-34 15:25:00 Test Item Value Reference Range Interpretation Comments Monocytes # (test code 0.7 See_Comment [Aut omated message] The = Monocytes #) system which generated this result tra nsmitted reference range : <=0.8. The reference r peri was not used to int erpret this result as normal/abnormal . [facility] CenterNlnmdexQLHGPUJVYH6950-76-21 15:25:00 Test Item Value Reference Range Interpretation Comments Eosinophils # (test code 0.4 See_Comment [A utomated message] The = Eosinophils #) system whic h generated this result tra nsmitted reference range : <=0.5. The reference r peri was not used to int erpret this result as normal/abnormal . [facility] CenterVgizgcaGWPMNAWLRD1938-38-57 15:25:00 Test Item Value Reference Range Interpretation Comments Basophils # (test code 0.1 See_Comment [Aut omated message] The = Basophils #) system which generated this result tra nsmitted reference range : <=0.2. The reference r peri was not used to int erpret this result as normal/abnormal . [facility]ZlqnaibANDRASWGPC6018-53-15 15:25:00 Test Item Value Reference Range Interpretation Comments Acetaminoph Lvl (test code = no gt 10-20 Acetaminoph Lvl) [place] [id number] 15:25:00 Test Item Value Reference Range Interpretation Comments Ethanol Lvl (test code = Ethanol Lvl) no gt [place] [id number] 15:25:00 Test Item Value Reference Range Interpretation Comments Etoh (%) (test code = Etoh (%)) no gt [place] 895492-08-21 15:25:00 Test Item Value Reference Range Interpretation Comments Salicylate Lvl (test 2.4 See_Comment [Autom ated message] The code = Salicylate Lvl) syste m which generated this result tra nsmitted reference range : <=30.0. The reference r peri was not used to int erpret this result as normal/abnormal . [facility] INcubes [id number] 15:25:00 Test Item Value Reference Range Interpretation Comments Glucose Lvl (test code = Glucose Lvl) 90 70-99 [facility] [id number] 15:25:00 Test Item Value Reference Range Interpretation Comments BUN (test code = BUN) 18 7-22 [facility] CenterdoughD[facility] [place] [id number] 15:25:00 Test Item Value Reference Range Interpretation Comments Creatinine Lvl (test code = Creatinine 0.96 0.50-1.40 Lvl) [facility] [id number] 15:25:00 Test Item Value Reference Range Interpretation Comments Sodium Lvl (test code = Sodium Lvl) 144 135-145 [facility] IN[employer] LMEGU3712-42-21 15:25:00 Test Item Value Reference Range Interpretation Comments Potassium Lvl (test code = Potassium 4.4 3.5-5.1 Lvl) [facility] [id number] 15:25:00 Test Item Value Reference Range Interpretation Comments Chloride Lvl (test code = Chloride Lvl) 112 95-109 [facility] [id number] 15:25:00 Test Item Value Reference Range Interpretation Comments CO2 (test code = CO2) 26 24-32 [facility] [id number] 15:25:00 Test Item Value Reference Range Interpretation Comments Calcium Lvl (test code = Calcium Lvl) 9.2 8.5-10.5 [facility] [id number] 15:25:00 Test Item Value Reference Range Interpretation Comments AGAP (test code = AGAP) 10.4 10.0-20.0 [facility] [id number] 15:25:00 Test Item Value Reference Range Interpretation Comments eGFR (test code = eGFR) 100 [facility]2022-08-21 15:25:00 Test Item Value Reference Range Interpretation Comments Magnesium Lvl (test code = Magnesium 2.1 1.8-2.4 Lvl) [facility]2022-08-21 15:25:00 Test Item Value Reference Range Interpretation Comments Phosphorus (test code = Phosphorus) 3.5 2.5-4.5 [place] 505542-08-21 15:25:00 Test Item Value Reference Range Interpretation Comments WBC X 10x3 (test code = WBC X 10x3) 9.0 3.7-10.4 [place] 505542-08-21 15:25:00 Test Item Value Reference Range Interpretation Comments RBC X 10x6 (test code = RBC X 10x6) 4.66 4.70-6.10 [place] [address]-08-21 15:25:00 Test Item Value Reference Range Interpretation Comments Hgb (test code = Hgb) 14.5 14.0-18.0 [place] [address]-08-21 15:25:00 Test Item Value Reference Range Interpretation Comments Hct (test code = Hct) 43.7 42.0-54.0 [place] 505542-08-21 15:25:00 Test Item Value Reference Range Interpretation Comments MCV (test code = MCV) 93.8 80.0-94.0 [place] [address]-08-21 15:25:00 Test Item Value Reference Range Interpretation Comments MCH (test code = MCH) 31.1 pg 27.0-31.0 [place] 505542-08-21 15:25:00 Test Item Value Reference Range Interpretation Comments MCHC (test code = MCHC) 33.1 32.0-36.0 [place] [address]-08-21 15:25:00 Test Item Value Reference Range Interpretation Comments RDW (test code = RDW) 13.7 11.5-14.5 [place] 505542-08-21 15:25:00 Test Item Value Reference Range Interpretation Comments Platelet (test code = Platelet) 214 133-450 [facility]2022-08-21 15:25:00 Test Item Value Reference Range Interpretation Comments Glucose Lvl (test code = Glucose Lvl) 90 70-99 [place] 493092-08-21 15:25:00 Test Item Value Reference Range Interpretation Comments BUN (test code = BUN) 18 7-22 [place] 493092-08-21 15:25:00 Test Item Value Reference Range Interpretation Comments Creatinine Lvl (test code = Creatinine 0.96 0.50-1.40 Lvl) [place] 505542-08-21 15:25:00 Test Item Value Reference Range Interpretation Comments MPV (test code = MPV) 9.1 7.4-10.4 [place] 493092-08-21 15:25:00 Test Item Value Reference Range Interpretation Comments Sodium Lvl (test code = Sodium Lvl) 144 135-145 [place] 493092-08-21 15:25:00 Test Item Value Reference Range Interpretation Comments Potassium Lvl (test code = Potassium 4.4 3.5-5.1 Lvl) [place] 493092-08-21 15:25:00 Test Item Value Reference Range Interpretation Comments Chloride Lvl (test code = Chloride Lvl) 112 95-109 [place] 493092-08-21 15:25:00 Test Item Value Reference Range Interpretation Comments CO2 (test code = CO2) 26 24-32 [place] 493092-08-21 15:25:00 Test Item Value Reference Range Interpretation Comments Calcium Lvl (test code = Calcium Lvl) 9.2 8.5-10.5 [place] 493092-08-21 15:25:00 Test Item Value Reference Range Interpretation Comments AGAP (test code = AGAP) 10.4 10.0-20.0 [place] 493092-08-21 15:25:00 Test Item Value Reference Range Interpretation Comments eGFR (test code = eGFR) 100 [place] 493092-08-21 15:25:00 Test Item Value Reference Range Interpretation Comments Magnesium Lvl (test code = Magnesium 2.1 1.8-2.4 Lvl) [place] 493092-08-21 15:25:00 Test Item Value Reference Range Interpretation Comments Phosphorus (test code = Phosphorus) 3.5 2.5-4.5 [place] 505542-08-21 15:25:00 Test Item Value Reference Range Interpretation Comments WBC X 10x3 (test code = WBC X 10x3) 9.0 3.7-10.4 [facility]BrbsrcyJLWZGRJUDZ6922-54-35 15:25:00 Test Item Value Reference Range Interpretation Comments Segs (test code = Segs) 63.9 45.0-75.0 [place] 505542-08-21 15:25:00 Test Item Value Reference Range Interpretation Comments RBC X 10x6 (test code = RBC X 10x6) 4.66 4.70-6.10 [facility] CenterYazjvxzMCZRXULBWM9132-23-75 15:25:00 Test Item Value Reference Range Interpretation Comments Hgb (test code = Hgb) 14.5 14.0-18.0 [facility] CenterSpqvjniLTQZGCVAMW8031-29-14 15:25:00 Test Item Value Reference Range Interpretation Comments Hct (test code = Hct) 43.7 42.0-54.0 [facility] CenterFkbrrpmMZQHVULCFL2464-64-30 15:25:00 Test Item Value Reference Range Interpretation Comments MCV (test code = MCV) 93.8 80.0-94.0 [facility] CenterMkibuqsIMHZRJULCM5840-95-29 15:25:00 Test Item Value Reference Range Interpretation Comments MCH (test code = MCH) 31.1 pg 27.0-31.0 [facility] CenterNnlnbyfAHONIETAXX9512-96-27 15:25:00 Test Item Value Reference Range Interpretation Comments MCHC (test code = MCHC) 33.1 32.0-36.0 [facility] CenterHtrgmoqOGFMOCTDIC4148-49-69 15:25:00 Test Item Value Reference Range Interpretation Comments RDW (test code = RDW) 13.7 11.5-14.5 [facility] CenterTubevzoLWEMNLSCMF9692-96-33 15:25:00 Test Item Value Reference Range Interpretation Comments Platelet (test code = Platelet) 214 133-450 [facility] CenterJtoglgbRRTGVKEWWO0467-53-77 15:25:00 Test Item Value Reference Range Interpretation Comments MPV (test code = MPV) 9.1 7.4-10.4 [place] 505542-08-21 15:25:00 Test Item Value Reference Range Interpretation Comments Segs (test code = Segs) 63.9 45.0-75.0 [facility] CenterTbqdfwnNQTEFNRQYU6826-65-32 15:25:00 Test Item Value Reference Range Interpretation Comments Lymphocytes (test code = Lymphocytes) 23.4 20.0-40.0 [place] 505542-08-21 15:25:00 Test Item Value Reference Range Interpretation Comments Lymphocytes (test code = Lymphocytes) 23.4 20.0-40.0 [place] [address]-08-21 15:25:00 Test Item Value Reference Range Interpretation Comments Monocytes (test code = Monocytes) 7.7 2.0-12.0 [place] [address]-08-21 15:25:00 Test Item Value Reference Range Interpretation Comments Eosinophils (test code = 4.3 See_Comment [A utomated message] The Eosinophils) system which ge nerated this result tra nsmitted reference range : <=4.0. The reference r peri was not used to int erpret this result as normal/abnormal . [place] [address]-08-21 15:25:00 Test Item Value Reference Range Interpretation Comments Basophils (test code = 0.7 See_Comment [Aut omated message] The Basophils) system which ge nerated this result tra nsmitted reference range : <=1.0. The reference r peri was not used to int erpret this result as normal/abnormal . [place] [address]-08-21 15:25:00 Test Item Value Reference Range Interpretation Comments Neutrophils # (test code = Neutrophils 5.8 1.5-8.1 #) [place] [address]-08-21 15:25:00 Test Item Value Reference Range Interpretation Comments Lymphocytes # (test code = Lymphocytes 2.1 1.0-5.5 #) [place] [address]-08-21 15:25:00 Test Item Value Reference Range Interpretation Comments Monocytes # (test code 0.7 See_Comment [Aut omated message] The = Monocytes #) system which generated this result tra nsmitted reference range : <=0.8. The reference r peri was not used to int erpret this result as normal/abnormal . [place] [address]-08-21 15:25:00 Test Item Value Reference Range Interpretation Comments Eosinophils # (test code 0.4 See_Comment [A utomated message] The = Eosinophils #) system [facility] h generated this result tra nsmitted reference range : <=0.5. The reference r peri was not used to int erpret this result as normal/abnormal . [facility] CenterHbpfrvaPDWAYLQOBM8114-20-83 15:25:00 Test Item Value Reference Range Interpretation Comments Basophils # (test code 0.1 See_Comment [Aut omated message] The = Basophils #) system which generated this result tra nsmitted reference range : <=0.2. The reference r peri was not used to int erpret this result as normal/abnormal . [place] 87785022-08-21 15:25:00 Test Item Value Reference Range Interpretation Comments Acetaminoph Lvl (test code = no gt 10-20 Acetaminoph Lvl) [facility] CenterZegozevIEGXXGGIFS5247-82-45 15:25:00 Test Item Value Reference Range Interpretation Comments Monocytes (test code = Monocytes) 7.7 2.0-12.0 [place] 895492-08-21 15:25:00 Test Item Value Reference Range Interpretation Comments Ethanol Lvl (test code = Ethanol Lvl) no gt [place] 87785022-08-21 15:25:00 Test Item Value Reference Range Interpretation Comments Etoh (%) (test code = Etoh (%)) no gt [place] 87785022-08-21 15:25:00 Test Item Value Reference Range Interpretation Comments Salicylate Lvl (test 2.4 See_Comment [Autom ated message] The code = Salicylate Lvl) syste m which generated this result tra nsmitted reference range : <=30.0. The reference r peri was not used to int erpret this result as normal/abnormal . [facility] CenterPzrrtprCECNSPVUJM7830-64-43 15:25:00 Test Item Value Reference Range Interpretation Comments Eosinophils (test code = 4.3 See_Comment [A utomated message] The Eosinophils) system which ge nerated this result tra nsmitted reference range : <=4.0. The reference r peri was not used to int erpret this result as normal/abnormal . [facility] CenterLeqagbeSZZWNKGLME6254-38-24 15:25:00 Test Item Value Reference Range Interpretation Comments Basophils (test code = 0.7 See_Comment [Aut omated message] The Basophils) system which ge nerated this result tra nsmitted reference range : <=1.0. The reference r peri was not used to int erpret this result as normal/abnormal . [facility] CenterGzcnaldGWVRWFRXEA1017-68-11 15:25:00 Test Item Value Reference Range Interpretation Comments Neutrophils # (test code = Neutrophils 5.8 1.5-8.1 #) [facility] CenterMcasdavEUPTFQJPGW9488-98-86 15:25:00 Test Item Value Reference Range Interpretation Comments Lymphocytes # (test code = Lymphocytes 2.1 1.0-5.5 #) [place] 505542-08-21 15:25:00 Test Item Value Reference Range Interpretation Comments Monocytes # (test code 0.7 See_Comment [Aut omated message] The = Monocytes #) system which generated this result tra nsmitted reference range : <=0.8. The reference r peri was not used to int erpret this result as normal/abnormal . [facility] CenterKurjiadLMCLTUZVOF7450-72-59 15:25:00 Test Item Value Reference Range Interpretation Comments Eosinophils # (test code 0.4 See_Comment [A utomated message] The = Eosinophils #) system whic h generated this result tra nsmitted reference range : <=0.5. The reference r peri was not used to int erpret this result as normal/abnormal . [facility] CenterQdphezmUUNAEJQRXB7523-81-00 15:25:00 Test Item Value Reference Range Interpretation Comments Basophils # (test code 0.1 See_Comment [Aut omated message] The = Basophils #) system which generated this result tra nsmitted reference range : <=0.2. The reference r peri was not used to int erpret this result as normal/abnormal . [place] 87785022-08-21 15:25:00 Test Item Value Reference Range Interpretation Comments Acetaminoph Lvl (test code = no gt 10-20 Acetaminoph Lvl) [place] 895492-08-21 15:25:00 Test Item Value Reference Range Interpretation Comments Ethanol Lvl (test code = Ethanol Lvl) no gt [place] [id number] 15:25:00 Test Item Value Reference Range Interpretation Comments Etoh (%) (test code = Etoh (%)) no gt [place] 87785022-08-21 15:25:00 Test Item Value Reference Range Interpretation Comments Salicylate Lvl (test 2.4 See_Comment [Autom ated message] The code = Salicylate Lvl) syste m which generated this result tra nsmitted reference range : <=30.0. The reference r peri was not used to int erpret this result as normal/abnormal . [facility] YNUVS4967-18-30 15:25:00 Test Item Value Reference Range Interpretation Comments Glucose Lvl (test code = Glucose Lvl) 90 70-99 [facility] [id number] 15:25:00 Test Item Value Reference Range Interpretation Comments BUN (test code = BUN) 18 7-22 [place] 493092-08-21 15:25:00 Test Item Value Reference Range Interpretation Comments Creatinine Lvl (test code = Creatinine 0.96 0.50-1.40 Lvl) [place] 493092-08-21 15:25:00 Test Item Value Reference Range Interpretation Comments Sodium Lvl (test code = Sodium Lvl) 144 135-145 [facility] VMGQS5880-57-44 15:25:00 Test Item Value Reference Range Interpretation Comments Potassium Lvl (test code = Potassium 4.4 3.5-5.1 Lvl) [facility] CenterdoughDALE [facility] [address]11RNDSF1439-83-35 15:25:00 Test Item Value Reference Range Interpretation Comments Chloride Lvl (test code = Chloride Lvl) 112 95-109 [facility] CEUSV6029-90-57 15:25:00 Test Item Value Reference Range Interpretation Comments CO2 (test code = CO2) 26 24-32 [facility] [id number] 15:25:00 Test Item Value Reference Range Interpretation Comments Calcium Lvl (test code = Calcium Lvl) 9.2 8.5-10.5 [facility] BVZVP1207-88-48 15:25:00 Test Item Value Reference Range Interpretation Comments AGAP (test code = AGAP) 10.4 10.0-20.0 [facility] [id number] 15:25:00 Test Item Value Reference Range Interpretation Comments eGFR (test code = eGFR) 100 [place] 493092-08-21 15:25:00 Test Item Value Reference Range Interpretation Comments Magnesium Lvl (test code = Magnesium 2.1 1.8-2.4 Lvl) [facility] [id number] 15:25:00 Test Item Value Reference Range Interpretation Comments Phosphorus (test code = Phosphorus) 3.5 2.5-4.5 [place] 505542-08-21 15:25:00 Test Item Value Reference Range Interpretation Comments WBC X 10x3 (test code = WBC X 10x3) 9.0 3.7-10.4 [place] 505542-08-21 15:25:00 Test Item Value Reference Range Interpretation Comments RBC X 10x6 (test code = RBC X 10x6) 4.66 4.70-6.10 [place] 505542-08-21 15:25:00 Test Item Value Reference Range Interpretation Comments Hgb (test code = Hgb) 14.5 14.0-18.0 [place] 505542-08-21 15:25:00 Test Item Value Reference Range Interpretation Comments Hct (test code = Hct) 43.7 42.0-54.0 [place] 505542-08-21 15:25:00 Test Item Value Reference Range Interpretation Comments MCV (test code = MCV) 93.8 80.0-94.0 [place] 505542-08-21 15:25:00 Test Item Value Reference Range Interpretation Comments MCH (test code = MCH) 31.1 pg 27.0-31.0 [place] 505542-08-21 15:25:00 Test Item Value Reference Range Interpretation Comments MCHC (test code = MCHC) 33.1 32.0-36.0 [place] 505542-08-21 15:25:00 Test Item Value Reference Range Interpretation Comments RDW (test code = RDW) 13.7 11.5-14.5 [place] 505542-08-21 15:25:00 Test Item Value Reference Range Interpretation Comments Platelet (test code = Platelet) 214 133-450 [place] 505542-08-21 15:25:00 Test Item Value Reference Range Interpretation Comments MPV (test code = MPV) 9.1 7.4-10.4 [place] 505542-08-21 15:25:00 Test Item Value Reference Range Interpretation Comments Segs (test code = Segs) 63.9 45.0-75.0 [place] 505542-08-21 15:25:00 Test Item Value Reference Range Interpretation Comments Lymphocytes (test code = Lymphocytes) 23.4 20.0-40.0 [facility] CenterShqzzrpZWZATZVNUV2584-30-71 15:25:00 Test Item Value Reference Range Interpretation Comments Monocytes (test code = Monocytes) 7.7 2.0-12.0 [place] 505542-08-21 15:25:00 Test Item Value Reference Range Interpretation Comments Eosinophils (test code = 4.3 See_Comment [A utomated message] The Eosinophils) system which ge nerated this result tra nsmitted reference range : <=4.0. The reference r peri was not used to int erpret this result as normal/abnormal . [facility] CenterOwsudjoVCZBNRBINS9248-82-79 15:25:00 Test Item Value Reference Range Interpretation Comments Basophils (test code = 0.7 See_Comment [Aut omated message] The Basophils) system which ge nerated this result tra nsmitted reference range : <=1.0. The reference r peri was not used to int erpret this result as normal/abnormal . [facility] CenterIjftvdrEFNNJWAEBV7529-26-60 15:25:00 Test Item Value Reference Range Interpretation Comments Neutrophils # (test code = Neutrophils 5.8 1.5-8.1 #) [facility] CenterWlmykkrKOWUZYCBGI3119-35-56 15:25:00 Test Item Value Reference Range Interpretation Comments Lymphocytes # (test code = Lymphocytes 2.1 1.0-5.5 #) [facility] CenterRjchdqgEJFLTWJBVY2374-91-41 15:25:00 Test Item Value Reference Range Interpretation Comments Monocytes # (test code 0.7 See_Comment [Aut omated message] The = Monocytes #) system which generated this result tra nsmitted reference range : <=0.8. The reference r peri was not used to int erpret this result as normal/abnormal . [facility] CenterTmqyzwtPCEPUAAZUL4766-56-59 15:25:00 Test Item Value Reference Range Interpretation Comments Eosinophils # (test code 0.4 See_Comment [A utomated message] The = Eosinophils #) system whic h generated this result tra nsmitted reference range : <=0.5. The reference r peri was not used to int erpret this result as normal/abnormal . [facility] CenterMlvnkvoGQGRYSCOYV2745-74-79 15:25:00 Test Item Value Reference Range Interpretation Comments Basophils # (test code 0.1 See_Comment [Aut omated message] The = Basophils #) system which generated this result tra nsmitted reference range : <=0.2. The reference r peri was not used to int erpret this result as normal/abnormal . [facility] CenterSdfhcamBKJYMDOBYW8441-52-70 15:25:00 Test Item Value Reference Range Interpretation Comments Acetaminoph Lvl (test code = no gt 10-20 Acetaminoph Lvl) [place] 895492-08-21 15:25:00 Test Item Value Reference Range Interpretation Comments Ethanol Lvl (test code = Ethanol Lvl) no gt [facility] CenterSjzpjyrROVIKOXZPB0505-86-91 15:25:00 Test Item Value Reference Range Interpretation Comments Etoh (%) (test code = Etoh (%)) no gt [facility] CenterOfspvekTWQISOYBLN0749-49-49 15:25:00 Test Item Value Reference Range Interpretation Comments Salicylate Lvl (test 2.4 See_Comment [Autom ated message] The code = Salicylate Lvl) syste m which generated this result tra nsmitted reference range : <=30.0. The reference r peri was not used to int erpret this result as normal/abnormal . [facility] [employer] [id number] 15:25:00 Test Item Value Reference Range Interpretation Comments Glucose Lvl (test code = Glucose Lvl) 90 - [facility] [employer] [id number] 15:25:00 Test Item Value Reference Range Interpretation Comments BUN (test code = BUN) 11-26 [facility] [employer] [id number] 15:25:00 Test Item Value Reference Range Interpretation Comments Creatinine Lvl (test code = Creatinine 0.96 0.50-1.40 Lvl) [facility] [employer] [id number] 15:25:00 Test Item Value Reference Range Interpretation Comments Sodium Lvl (test code = Sodium Lvl) 144 135-145 [facility] [employer] [id number] 15:25:00 Test Item Value Reference Range Interpretation Comments Glucose Lvl (test code = Glucose Lvl) 90 70-99 [facility] [employer] [id number] 15:25:00 Test Item Value Reference Range Interpretation Comments BUN (test code = BUN) 11-26 [facility]2022-08-21 15:25:00 Test Item Value Reference Range Interpretation Comments Potassium Lvl (test code = Potassium 4.4 3.5-5.1 Lvl) [facility]2022-08-21 15:25:00 Test Item Value Reference Range Interpretation Comments Creatinine Lvl (test code = Creatinine 0.96 0.50-1.40 Lvl) [facility]2022-08-21 15:25:00 Test Item Value Reference Range Interpretation Comments Sodium Lvl (test code = Sodium Lvl) 144 135-145 [place] 493092-08-21 15:25:00 Test Item Value Reference Range Interpretation Comments Potassium Lvl (test code = Potassium 4.4 3.5-5.1 Lvl) [facility]2022-08-21 15:25:00 Test Item Value Reference Range Interpretation Comments Chloride Lvl (test code = Chloride Lvl) 112 95-109 [place] 493092-08-21 15:25:00 Test Item Value Reference Range Interpretation Comments CO2 (test code = CO2) 26 24-32 [place] 493092-08-21 15:25:00 Test Item Value Reference Range Interpretation Comments Calcium Lvl (test code = Calcium Lvl) 9.2 8.5-10.5 [facility]2022-08-21 15:25:00 Test Item Value Reference Range Interpretation Comments AGAP (test code = AGAP) 10.4 10.0-20.0 [facility]2022-08-21 15:25:00 Test Item Value Reference Range Interpretation Comments eGFR (test code = eGFR) 100 [facility]2022-08-21 15:25:00 Test Item Value Reference Range Interpretation Comments Magnesium Lvl (test code = Magnesium 2.1 1.8-2.4 Lvl) [facility]2022-08-21 15:25:00 Test Item Value Reference Range Interpretation Comments Phosphorus (test code = Phosphorus) 3.5 2.5-4.5 [place] 493092-08-21 15:25:00 Test Item Value Reference Range Interpretation Comments Chloride Lvl (test code = Chloride Lvl) 112 95-109 [place] 505542-08-21 15:25:00 Test Item Value Reference Range Interpretation Comments WBC X 10x3 (test code = WBC X 10x3) 9.0 3.7-10.4 [facility]CfhpkcoNIWWLVOJHZ6845-34-98 15:25:00 Test Item Value Reference Range Interpretation Comments RBC X 10x6 (test code = RBC X 10x6) 4.66 4.70-6.10 [facility] CenterWrhnqgdOTINHWIVTI5259-52-14 15:25:00 Test Item Value Reference Range Interpretation Comments Hgb (test code = Hgb) 14.5 14.0-18.0 [facility] CenterYdfynkqNIHEGMUFCN6961-61-84 15:25:00 Test Item Value Reference Range Interpretation Comments Hct (test code = Hct) 43.7 42.0-54.0 [facility] CenterPzrgsprACQGINFMAO1320-80-12 15:25:00 Test Item Value Reference Range Interpretation Comments MCV (test code = MCV) 93.8 80.0-94.0 [facility] CenterUlxpdaiLRXUMMJHLB9551-58-73 15:25:00 Test Item Value Reference Range Interpretation Comments MCH (test code = MCH) 31.1 pg 27.0-31.0 [facility] CenterIwxxvujSDMWHVSLFS1051-07-45 15:25:00 Test Item Value Reference Range Interpretation Comments MCHC (test code = MCHC) 33.1 32.0-36.0 [facility] CenterPjsbetnGZYGUGWWPN7068-71-87 15:25:00 Test Item Value Reference Range Interpretation Comments RDW (test code = RDW) 13.7 11.5-14.5 [facility] CenterFtgaoehBCTHADXGLK3670-89-64 15:25:00 Test Item Value Reference Range Interpretation Comments Platelet (test code = Platelet) 214 133-450 [facility] CenterObdwvrlZRANLXLASX0992-32-44 15:25:00 Test Item Value Reference Range Interpretation Comments MPV (test code = MPV) 9.1 7.4-10.4 [facility] ZIQOK4770-10-08 15:25:00 Test Item Value Reference Range Interpretation Comments CO2 (test code = CO2) 26 24-32 [facility] CenterXpqwmanNFJMYMTTNC7014-39-91 15:25:00 Test Item Value Reference Range Interpretation Comments Segs (test code = Segs) 63.9 45.0-75.0 [facility] CenterYqlwkwsGFXLNCFPTL8785-66-44 15:25:00 Test Item Value Reference Range Interpretation Comments Lymphocytes (test code = Lymphocytes) 23.4 20.0-40.0 [place] 505542-08-21 15:25:00 Test Item Value Reference Range Interpretation Comments Monocytes (test code = Monocytes) 7.7 2.0-12.0 [facility] CenterZfwyhbjSHNLQNUAVP0078-80-09 15:25:00 Test Item Value Reference Range Interpretation Comments Eosinophils (test code = 4.3 See_Comment [A utomated message] The Eosinophils) system which ge nerated this result tra nsmitted reference range : <=4.0. The reference r peri was not used to int erpret this result as normal/abnormal . [facility] CenterWjbrmpdSVJEOLFTOJ0662-85-40 15:25:00 Test Item Value Reference Range Interpretation Comments Basophils (test code = 0.7 See_Comment [Aut omated message] The Basophils) system which ge nerated this result tra nsmitted reference range : <=1.0. The reference r peri was not used to int erpret this result as normal/abnormal . [place] 505542-08-21 15:25:00 Test Item Value Reference Range Interpretation Comments Neutrophils # (test code = Neutrophils 5.8 1.5-8.1 #) [facility] CenterNmcxhrgINGUOJZRNA0140-21-98 15:25:00 Test Item Value Reference Range Interpretation Comments Lymphocytes # (test code = Lymphocytes 2.1 1.0-5.5 #) [facility] CenterBtqttxfUSJGLZBACX6357-33-55 15:25:00 Test Item Value Reference Range Interpretation Comments Monocytes # (test code 0.7 See_Comment [Aut omated message] The = Monocytes #) system which generated this result tra nsmitted reference range : <=0.8. The reference r peri was not used to int erpret this result as normal/abnormal . [place] [address]-08-21 15:25:00 Test Item Value Reference Range Interpretation Comments Eosinophils # (test code 0.4 See_Comment [A utomated message] The = Eosinophils #) system whic h generated this result tra nsmitted reference range : <=0.5. The reference r peri was not used to int erpret this result as normal/abnormal . [place] 505542-08-21 15:25:00 Test Item Value Reference Range Interpretation Comments Basophils # (test code 0.1 See_Comment [Aut omated message] The = Basophils #) system which generated this result tra nsmitted reference range : <=0.2. The reference r peri was not used to int erpret this result as normal/abnormal . [facility] [employer] [id number] 15:25:00 Test Item Value Reference Range Interpretation Comments Calcium Lvl (test code = Calcium Lvl) 9.2 8.5-10.5 [facility]RoewxaxYQTAZYASKA1202-92-47 15:25:00 Test Item Value Reference Range Interpretation Comments Acetaminoph Lvl (test code = no gt 10-20 Acetaminoph Lvl) [facility]KFNGLQFYR3039-81-58 15:25:00 Test Item Value Reference Range Interpretation Comments Ethanol Lvl (test code = Ethanol Lvl) no gt [facility]AxjmszfQHSWZRALHX6639-75-20 15:25:00 Test Item Value Reference Range Interpretation Comments Etoh (%) (test code = Etoh (%)) no gt [facility] HoustonEwgdvdxLQTFHMKEEI5494-45-21 15:25:00 Test Item Value Reference Range Interpretation Comments Salicylate Lvl (test 2.4 See_Comment [Autom ated message] The code = Salicylate Lvl) syste m which generated this result tra nsmitted reference range : <=30.0. The reference r peri was not used to int erpret this result as normal/abnormal . [facility] [id number] 15:25:00 Test Item Value Reference Range Interpretation Comments AGAP (test code = AGAP) 10.4 10.0-20.0 [facility] [id number] 15:25:00 Test Item Value Reference Range Interpretation Comments eGFR (test code = eGFR) 100 [facility] [id number] 15:25:00 Test Item Value Reference Range Interpretation Comments Magnesium Lvl (test code = Magnesium 2.1 1.8-2.4 Lvl) [facility] [id number] 15:25:00 Test Item Value Reference Range Interpretation Comments Phosphorus (test code = Phosphorus) 3.5 2.5-4.5 [facility]XxbshgdIGSGOGSUCP1780-78-15 15:25:00 Test Item Value Reference Range Interpretation Comments WBC X 10x3 (test code = WBC X 10x3) 9.0 3.7-10.4 [facility]HuomiiiPYAGGHVDFF4178-58-56 15:25:00 Test Item Value Reference Range Interpretation Comments RBC X 10x6 (test code = RBC X 10x6) 4.66 4.70-6.10 [facility] CenterGbqvzxdPLWAXOKINP3465-04-60 15:25:00 Test Item Value Reference Range Interpretation Comments Hgb (test code = Hgb) 14.5 14.0-18.0 [facility] CenterFyiavqnIXGNKHOADX5873-63-37 15:25:00 Test Item Value Reference Range Interpretation Comments Hct (test code = Hct) 43.7 42.0-54.0 [facility] CenterIcegyaoWUUSKSVHWD8336-82-19 15:25:00 Test Item Value Reference Range Interpretation Comments MCV (test code = MCV) 93.8 80.0-94.0 [facility] CenterWribmyuPVGNQJBZIP6102-05-09 15:25:00 Test Item Value Reference Range Interpretation Comments MCH (test code = MCH) 31.1 pg 27.0-31.0 [facility] CenterUydwvqaVBHMERDKIM4397-81-95 15:25:00 Test Item Value Reference Range Interpretation Comments MCHC (test code = MCHC) 33.1 32.0-36.0 [facility] CenterCklgvscLXIPGPYQYH1311-41-93 15:25:00 Test Item Value Reference Range Interpretation Comments RDW (test code = RDW) 13.7 11.5-14.5 [facility] CenterUhaaqpaYMGNIZGAEO0474-04-84 15:25:00 Test Item Value Reference Range Interpretation Comments Platelet (test code = Platelet) 214 133-450 [facility] CenterCpmlihkIGPNRNKESC1029-88-39 15:25:00 Test Item Value Reference Range Interpretation Comments MPV (test code = MPV) 9.1 7.4-10.4 [facility] CenterOgegwwcNCDXEFYMNC2133-41-36 15:25:00 Test Item Value Reference Range Interpretation Comments Segs (test code = Segs) 63.9 45.0-75.0 [facility] CenterMcvumslWYMSYPHSTU9711-83-64 15:25:00 Test Item Value Reference Range Interpretation Comments Lymphocytes (test code = Lymphocytes) 23.4 20.0-40.0 [facility] CenterZnjyxmfJAZPNQFWVE4786-15-18 15:25:00 Test Item Value Reference Range Interpretation Comments Monocytes (test code = Monocytes) 7.7 2.0-12.0 [place] 505542-08-21 15:25:00 Test Item Value Reference Range Interpretation Comments Eosinophils (test code = 4.3 See_Comment [A utomated message] The Eosinophils) system which ge nerated this result tra nsmitted reference range : <=4.0. The reference r peri was not used to int erpret this result as normal/abnormal . [facility] CenterCfgwhbsCKMIZAPOEN9479-61-29 15:25:00 Test Item Value Reference Range Interpretation Comments Basophils (test code = 0.7 See_Comment [Aut omated message] The Basophils) system which ge nerated this result tra nsmitted reference range : <=1.0. The reference r peri was not used to int erpret this result as normal/abnormal . [facility] CenterTfuusrtVCXHNQELWV4846-65-80 15:25:00 Test Item Value Reference Range Interpretation Comments Neutrophils # (test code = Neutrophils 5.8 1.5-8.1 #) [facility] CenterFnnoiibSADCGFUVBZ6217-56-08 15:25:00 Test Item Value Reference Range Interpretation Comments Lymphocytes # (test code = Lymphocytes 2.1 1.0-5.5 #) [place] 505542-08-21 15:25:00 Test Item Value Reference Range Interpretation Comments Monocytes # (test code 0.7 See_Comment [Aut omated message] The = Monocytes #) system which generated this result tra nsmitted reference range : <=0.8. The reference r peri was not used to int erpret this result as normal/abnormal . [facility] CenterHhlkiucKPEDUGYEYR8688-41-02 15:25:00 Test Item Value Reference Range Interpretation Comments Eosinophils # (test code 0.4 See_Comment [A utomated message] The = Eosinophils #) system whic h generated this result tra nsmitted reference range : <=0.5. The reference r peri was not used to int erpret this result as normal/abnormal . [facility] CenterIqebwinHIHTHGZGSY2597-67-87 15:25:00 Test Item Value Reference Range Interpretation Comments Basophils # (test code 0.1 See_Comment [Aut omated message] The = Basophils #) system which generated this result tra nsmitted reference range : <=0.2. The reference r peri was not used to int erpret this result as normal/abnormal . [facility]AbbxjnfSHUHHCHJTQ8153-61-99 15:25:00 Test Item Value Reference Range Interpretation Comments Acetaminoph Lvl (test code = no gt 10-20 Acetaminoph Lvl) [place] 895492-08-21 15:25:00 Test Item Value Reference Range Interpretation Comments Ethanol Lvl (test code = Ethanol Lvl) no gt [place] 895492-08-21 15:25:00 Test Item Value Reference Range Interpretation Comments Etoh (%) (test code = Etoh (%)) no gt [place] [id number] 15:25:00 Test Item Value Reference Range Interpretation Comments Salicylate Lvl (test 2.4 See_Comment [Autom ated message] The code = Salicylate Lvl) syste m which generated this result tra nsmitted reference range : <=30.0. The reference r peri was not used to int erpret this result as normal/abnormal . [facility] [employer] [id number] 15:25:00 Test Item Value Reference Range Interpretation Comments Glucose Lvl (test code = Glucose Lvl) 90 70-99 [facility] [id number] 15:25:00 Test Item Value Reference Range Interpretation Comments BUN (test code = BUN) 18 7-22 [facility] [id number] 15:25:00 Test Item Value Reference Range Interpretation Comments Creatinine Lvl (test code = Creatinine 0.96 0.50-1.40 Lvl) [facility] [id number] 15:25:00 Test Item Value Reference Range Interpretation Comments Sodium Lvl (test code = Sodium Lvl) 144 135-145 [facility] [id number] 15:25:00 Test Item Value Reference Range Interpretation Comments Potassium Lvl (test code = Potassium 4.4 3.5-5.1 Lvl) [facility] [employer] [id number] 15:25:00 Test Item Value Reference Range Interpretation Comments Chloride Lvl (test code = Chloride Lvl) 112 95-109 [facility] [employer] [id number] 15:25:00 Test Item Value Reference Range Interpretation Comments CO2 (test code = CO2) 26 24-32 [facility] [id number] 15:25:00 Test Item Value Reference Range Interpretation Comments Calcium Lvl (test code = Calcium Lvl) 9.2 8.5-10.5 [place] 493092-08-21 15:25:00 Test Item Value Reference Range Interpretation Comments AGAP (test code = AGAP) 10.4 10.0-20.0 [place] 493092-08-21 15:25:00 Test Item Value Reference Range Interpretation Comments eGFR (test code = eGFR) 100 [place] 493092-08-21 15:25:00 Test Item Value Reference Range Interpretation Comments Magnesium Lvl (test code = Magnesium 2.1 1.8-2.4 Lvl) [place] 493092-08-21 15:25:00 Test Item Value Reference Range Interpretation Comments Phosphorus (test code = Phosphorus) 3.5 2.5-4.5 [place] 505542-08-21 15:25:00 Test Item Value Reference Range Interpretation Comments WBC X 10x3 (test code = WBC X 10x3) 9.0 3.7-10.4 [place] 505542-08-21 15:25:00 Test Item Value Reference Range Interpretation Comments RBC X 10x6 (test code = RBC X 10x6) 4.66 4.70-6.10 [place] 505542-08-21 15:25:00 Test Item Value Reference Range Interpretation Comments Hgb (test code = Hgb) 14.5 14.0-18.0 [place] [address]-08-21 15:25:00 Test Item Value Reference Range Interpretation Comments Hct (test code = Hct) 43.7 42.0-54.0 [place] [address]-08-21 15:25:00 Test Item Value Reference Range Interpretation Comments MCV (test code = MCV) 93.8 80.0-94.0 [place] [address]-08-21 15:25:00 Test Item Value Reference Range Interpretation Comments MCH (test code = MCH) 31.1 pg 27.0-31.0 [place] 505542-08-21 15:25:00 Test Item Value Reference Range Interpretation Comments MCHC (test code = MCHC) 33.1 32.0-36.0 [place] 505542-08-21 15:25:00 Test Item Value Reference Range Interpretation Comments RDW (test code = RDW) 13.7 11.5-14.5 [place] 505542-08-21 15:25:00 Test Item Value Reference Range Interpretation Comments Platelet (test code = Platelet) 214 133-450 [place] 505542-08-21 15:25:00 Test Item Value Reference Range Interpretation Comments MPV (test code = MPV) 9.1 7.4-10.4 [place] 505542-08-21 15:25:00 Test Item Value Reference Range Interpretation Comments Segs (test code = Segs) 63.9 45.0-75.0 [place] 505542-08-21 15:25:00 Test Item Value Reference Range Interpretation Comments Lymphocytes (test code = Lymphocytes) 23.4 20.0-40.0 [place] [address]-08-21 15:25:00 Test Item Value Reference Range Interpretation Comments Monocytes (test code = Monocytes) 7.7 2.0-12.0 [place] 505542-08-21 15:25:00 Test Item Value Reference Range Interpretation Comments Eosinophils (test code = 4.3 See_Comment [A utomated message] The Eosinophils) system which ge nerated this result tra nsmitted reference range : <=4.0. The reference r peri was not used to int erpret this result as normal/abnormal . [place] 505542-08-21 15:25:00 Test Item Value Reference Range Interpretation Comments Basophils (test code = 0.7 See_Comment [Aut omated message] The Basophils) system which ge nerated this result tra nsmitted reference range : <=1.0. The reference r peri was not used to int erpret this result as normal/abnormal . [place] 505542-08-21 15:25:00 Test Item Value Reference Range Interpretation Comments Neutrophils # (test code = Neutrophils 5.8 1.5-8.1 #) [place] 505542-08-21 15:25:00 Test Item Value Reference Range Interpretation Comments Lymphocytes # (test code = Lymphocytes 2.1 1.0-5.5 #) [place] 505542-08-21 15:25:00 Test Item Value Reference Range Interpretation Comments Monocytes # (test code 0.7 See_Comment [Aut omated message] The = Monocytes #) system which generated this result tra nsmitted reference range : <=0.8. The reference r peri was not used to int erpret this result as normal/abnormal . [facility] CenterBgmlpbpSYZJTERQKI2011-20-92 15:25:00 Test Item Value Reference Range Interpretation Comments Eosinophils # (test code 0.4 See_Comment [A utomated message] The = Eosinophils #) system whic h generated this result tra nsmitted reference range : <=0.5. The reference r peri was not used to int erpret this result as normal/abnormal . [facility] CenterZjeteurHPXVKPFLQI2889-72-59 15:25:00 Test Item Value Reference Range Interpretation Comments Basophils # (test code 0.1 See_Comment [Aut omated message] The = Basophils #) system which generated this result tra nsmitted reference range : <=0.2. The reference r peri was not used to int erpret this result as normal/abnormal . [facility] CenterLvxvcvhNKHXTODGBL2213-01-10 15:25:00 Test Item Value Reference Range Interpretation Comments Acetaminoph Lvl (test code = no gt 10-20 Acetaminoph Lvl) [facility] CenterDybfxddCGGZMJPEPK1253-38-30 15:25:00 Test Item Value Reference Range Interpretation Comments Ethanol Lvl (test code = Ethanol Lvl) [facility] gt [facility]TvyeqiuIZTEAKMRQH4032-70-54 15:25:00 Test Item Value Reference Range Interpretation Comments Etoh (%) (test code = Etoh (%)) no gt [facility] CenterJznckmsPIPVKIPIHC2828-22-49 15:25:00 Test Item Value Reference Range Interpretation Comments Salicylate Lvl (test 2.4 See_Comment [Autom ated message] The code = Salicylate Lvl) syste m which generated this result tra nsmitted reference range : <=30.0. The reference r peri was not used to int erpret this result as normal/abnormal . [facility] [employer] [id number] 15:25:00 Test Item Value Reference Range Interpretation Comments Glucose Lvl (test code = Glucose Lvl) 90 70-99 [facility] [employer] [id number] 15:25:00 Test Item Value Reference Range Interpretation Comments BUN (test code = BUN) 18 7-22 [place] 493092-08-21 15:25:00 Test Item Value Reference Range Interpretation Comments Glucose Lvl (test code = Glucose Lvl) 90 70-99 [place] 493092-08-21 15:25:00 Test Item Value Reference Range Interpretation Comments BUN (test code = BUN) 18 - [place] 493092-08-21 15:25:00 Test Item Value Reference Range Interpretation Comments Creatinine Lvl (test code = Creatinine 0.96 0.50-1.40 Lvl) [place] 493092-08-21 15:25:00 Test Item Value Reference Range Interpretation Comments Sodium Lvl (test code = Sodium Lvl) 144 135-145 [place] 493092-08-21 15:25:00 Test Item Value Reference Range Interpretation Comments Potassium Lvl (test code = Potassium 4.4 3.5-5.1 Lvl) [place] 493092-08-21 15:25:00 Test Item Value Reference Range Interpretation Comments Chloride Lvl (test code = Chloride Lvl) 112 95-109 [place] 493092-08-21 15:25:00 Test Item Value Reference Range Interpretation Comments CO2 (test code = CO2) 26 24-32 [place] 493092-08-21 15:25:00 Test Item Value Reference Range Interpretation Comments Calcium Lvl (test code = Calcium Lvl) 9.2 8.5-10.5 [place] 493092-08-21 15:25:00 Test Item Value Reference Range Interpretation Comments Creatinine Lvl (test code = Creatinine 0.96 0.50-1.40 Lvl) [place] 493092-08-21 15:25:00 Test Item Value Reference Range Interpretation Comments AGAP (test code = AGAP) 10.4 10.0-20.0 [place] 493092-08-21 15:25:00 Test Item Value Reference Range Interpretation Comments eGFR (test code = eGFR) 100 [place] 493092-08-21 15:25:00 Test Item Value Reference Range Interpretation Comments Magnesium Lvl (test code = Magnesium 2.1 1.8-2.4 Lvl) [place] 493092-08-21 15:25:00 Test Item Value Reference Range Interpretation Comments Phosphorus (test code = Phosphorus) 3.5 2.5-4.5 [facility] CenterIsayweoWSYCCLEBGK8996-00-13 15:25:00 Test Item Value Reference Range Interpretation Comments WBC X 10x3 (test code = WBC X 10x3) 9.0 3.7-10.4 [facility] CenterSvbabfeRHZTSVTLAI3268-78-05 15:25:00 Test Item Value Reference Range Interpretation Comments RBC X 10x6 (test code = RBC X 10x6) 4.66 4.70-6.10 [facility] CenterUyccioyUSRPRCJOXE3870-50-66 15:25:00 Test Item Value Reference Range Interpretation Comments Hgb (test code = Hgb) 14.5 14.0-18.0 [place] 505542-08-21 15:25:00 Test Item Value Reference Range Interpretation Comments Hct (test code = Hct) 43.7 42.0-54.0 [place] 505542-08-21 15:25:00 Test Item Value Reference Range Interpretation Comments MCV (test code = MCV) 93.8 80.0-94.0 [facility] CenterNlhkfmsTMXEGXOTUJ5683-26-91 15:25:00 Test Item Value Reference Range Interpretation Comments MCH (test code = MCH) 31.1 pg 27.0-31.0 [facility]2022-08-21 15:25:00 Test Item Value Reference Range Interpretation Comments Sodium Lvl (test code = Sodium Lvl) 144 135-145 [facility] CenterSjpmydcSXBJCPWWVO4464-26-40 15:25:00 Test Item Value Reference Range Interpretation Comments MCHC (test code = MCHC) 33.1 32.0-36.0 [facility] CenterZwtufkfAETGGZPOKH6434-81-23 15:25:00 Test Item Value Reference Range Interpretation Comments RDW (test code = RDW) 13.7 11.5-14.5 [place] 505542-08-21 15:25:00 Test Item Value Reference Range Interpretation Comments Platelet (test code = Platelet) 214 133-450 [facility] CenterUxbwcgnMVIWEWVWMW8136-54-43 15:25:00 Test Item Value Reference Range Interpretation Comments MPV (test code = MPV) 9.1 7.4-10.4 [facility] CenterSqlpepeFLTKZFZHJA3057-90-76 15:25:00 Test Item Value Reference Range Interpretation Comments Segs (test code = Segs) 63.9 45.0-75.0 [facility] CenterCummqojFKBFBWWXRP5682-70-40 15:25:00 Test Item Value Reference Range Interpretation Comments Lymphocytes (test code = Lymphocytes) 23.4 20.0-40.0 [place] [address]-08-21 15:25:00 Test Item Value Reference Range Interpretation Comments Monocytes (test code = Monocytes) 7.7 2.0-12.0 [place] 505542-08-21 15:25:00 Test Item Value Reference Range Interpretation Comments Eosinophils (test code = 4.3 See_Comment [A utomated message] The Eosinophils) system which ge nerated this result tra nsmitted reference range : <=4.0. The reference r peri was not used to int erpret this result as normal/abnormal . [place] [address]-08-21 15:25:00 Test Item Value Reference Range Interpretation Comments Basophils (test code = 0.7 See_Comment [Aut omated message] The Basophils) system which ge nerated this result tra nsmitted reference range : <=1.0. The reference r peri was not used to int erpret this result as normal/abnormal . [place] 505542-08-21 15:25:00 Test Item Value Reference Range Interpretation Comments Neutrophils # (test code = Neutrophils 5.8 1.5-8.1 #) [facility]2022-08-21 15:25:00 Test Item Value Reference Range Interpretation Comments Potassium Lvl (test code = Potassium 4.4 3.5-5.1 Lvl) [place] 505542-08-21 15:25:00 Test Item Value Reference Range Interpretation Comments Lymphocytes # (test code = Lymphocytes 2.1 1.0-5.5 #) [place] [address]-08-21 15:25:00 Test Item Value Reference Range Interpretation Comments Monocytes # (test code 0.7 See_Comment [Aut omated message] The = Monocytes #) system which generated this result tra nsmitted reference range : <=0.8. The reference r peri was not used to int erpret this result as normal/abnormal . [place] 505542-08-21 15:25:00 Test Item Value Reference Range Interpretation Comments Eosinophils # (test code 0.4 See_Comment [A utomated message] The = Eosinophils #) system whic h generated this result tra nsmitted reference range : <=0.5. The reference r peri was not used to int erpret this result as normal/abnormal . [facility] CenterBulnfleGMTAZAADMT1042-76-41 15:25:00 Test Item Value Reference Range Interpretation Comments Basophils # (test code 0.1 See_Comment [Aut omated message] The = Basophils #) system which generated this result tra nsmitted reference range : <=0.2. The reference r peri was not used to int erpret this result as normal/abnormal . [facility] CenterYrpqaohCAGGLHJEDT2379-73-30 15:25:00 Test Item Value Reference Range Interpretation Comments Acetaminoph Lvl (test code = no gt 10-20 Acetaminoph Lvl) [facility] CenterHbksadcADVRPDJGIB8963-94-96 15:25:00 Test Item Value Reference Range Interpretation Comments Ethanol Lvl (test code = Ethanol Lvl) no gt [facility] CenterVkudjtrFJERQLUQXC4323-42-13 15:25:00 Test Item Value Reference Range Interpretation Comments Etoh (%) (test code = Etoh (%)) no gt [facility] CenterIjumykuJZLWFEAURC0870-82-18 15:25:00 Test Item Value Reference Range Interpretation Comments Salicylate Lvl (test 2.4 See_Comment [Autom ated message] The code = Salicylate Lvl) syste m which generated this result tra nsmitted reference range : <=30.0. The reference r peri was not used to int erpret this result as normal/abnormal . [facility] [employer] [id number] 15:25:00 Test Item Value Reference Range Interpretation Comments Chloride Lvl (test code = Chloride Lvl) 112 95-109 [facility] [employer] [id number] 15:25:00 Test Item Value Reference Range Interpretation Comments CO2 (test code = CO2) 26 24-32 [facility] [employer] [id number] 15:25:00 Test Item Value Reference Range Interpretation Comments Calcium Lvl (test code = Calcium Lvl) 9.2 8.5-10.5 [facility] [employer] [id number] 15:25:00 Test Item Value Reference Range Interpretation Comments AGAP (test code = AGAP) 10.4 10.0-20.0 [place] 493092-08-21 15:25:00 Test Item Value Reference Range Interpretation Comments eGFR (test code = eGFR) 100 [facility]2022-08-21 15:25:00 Test Item Value Reference Range Interpretation Comments Magnesium Lvl (test code = Magnesium 2.1 1.8-2.4 Lvl) [facility]2022-08-21 15:25:00 Test Item Value Reference Range Interpretation Comments Phosphorus (test code = Phosphorus) 3.5 2.5-4.5 [place] 505542-08-21 15:25:00 Test Item Value Reference Range Interpretation Comments WBC X 10x3 (test code = WBC X 10x3) 9.0 3.7-10.4 [place] 505542-08-21 15:25:00 Test Item Value Reference Range Interpretation Comments RBC X 10x6 (test code = RBC X 10x6) 4.66 4.70-6.10 [place] 505542-08-21 15:25:00 Test Item Value Reference Range Interpretation Comments Hgb (test code = Hgb) 14.5 14.0-18.0 [place] 505542-08-21 15:25:00 Test Item Value Reference Range Interpretation Comments Hct (test code = Hct) 43.7 42.0-54.0 [place] 505542-08-21 15:25:00 Test Item Value Reference Range Interpretation Comments MCV (test code = MCV) 93.8 80.0-94.0 [place] 505542-08-21 15:25:00 Test Item Value Reference Range Interpretation Comments MCH (test code = MCH) 31.1 pg 27.0-31.0 [place] 505542-08-21 15:25:00 Test Item Value Reference Range Interpretation Comments MCHC (test code = MCHC) 33.1 32.0-36.0 [place] 505542-08-21 15:25:00 Test Item Value Reference Range Interpretation Comments RDW (test code = RDW) 13.7 11.5-14.5 [place] 505542-08-21 15:25:00 Test Item Value Reference Range Interpretation Comments Platelet (test code = Platelet) 214 133-450 [facility] CenterFpnaynjMZJAWDLFMC7546-77-58 15:25:00 Test Item Value Reference Range Interpretation Comments MPV (test code = MPV) 9.1 7.4-10.4 [place] 505542-08-21 15:25:00 Test Item Value Reference Range Interpretation Comments Segs (test code = Segs) 63.9 45.0-75.0 [place] 505542-08-21 15:25:00 Test Item Value Reference Range Interpretation Comments Lymphocytes (test code = Lymphocytes) 23.4 20.0-40.0 [place] [address]-08-21 15:25:00 Test Item Value Reference Range Interpretation Comments Monocytes (test code = Monocytes) 7.7 2.0-12.0 [place] 505542-08-21 15:25:00 Test Item Value Reference Range Interpretation Comments Eosinophils (test code = 4.3 See_Comment [A utomated message] The Eosinophils) system which ge nerated this result tra nsmitted reference range : <=4.0. The reference r peri was not used to int erpret this result as normal/abnormal . [facility] CenterJswxpbdPZLBCNKEKH6610-50-23 15:25:00 Test Item Value Reference Range Interpretation Comments Basophils (test code = 0.7 See_Comment [Aut omated message] The Basophils) system which ge nerated this result tra nsmitted reference range : <=1.0. The reference r peri was not used to int erpret this result as normal/abnormal . [place] 505542-08-21 15:25:00 Test Item Value Reference Range Interpretation Comments Neutrophils # (test code = Neutrophils 5.8 1.5-8.1 #) [place] 505542-08-21 15:25:00 Test Item Value Reference Range Interpretation Comments Lymphocytes # (test code = Lymphocytes 2.1 1.0-5.5 #) [place] [address]-08-21 15:25:00 Test Item Value Reference Range Interpretation Comments Monocytes # (test code 0.7 See_Comment [Aut omated message] The = Monocytes #) system which generated this result tra nsmitted reference range : <=0.8. The reference r peri was not used to int erpret this result as normal/abnormal . [place] 505542-08-21 15:25:00 Test Item Value Reference Range Interpretation Comments Eosinophils # (test code 0.4 See_Comment [A utomated message] The = Eosinophils #) system whic h generated this result tra nsmitted reference range : <=0.5. The reference r peri was not used to int erpret this result as normal/abnormal . [facility]MbdmfegRZWJJYJCSZ9730-00-29 15:25:00 Test Item Value Reference Range Interpretation Comments Basophils # (test code 0.1 See_Comment [Aut omated message] The = Basophils #) system which generated this result tra nsmitted reference range : <=0.2. The reference r peri was not used to int erpret this result as normal/abnormal . [facility]ObhiixoGPHUXIBLAZ3073-73-12 15:25:00 Test Item Value Reference Range Interpretation Comments Acetaminoph Lvl (test code = no gt 10-20 Acetaminoph Lvl) [facility] CenterKyhkihfHHVPIWRRYC1171-81-11 15:25:00 Test Item Value Reference Range Interpretation Comments Ethanol Lvl (test code = Ethanol Lvl) no gt [facility] CenterMfaopceTERKZLWBRQ9381-09-57 15:25:00 Test Item Value Reference Range Interpretation Comments Etoh (%) (test code = Etoh (%)) no gt [facility] CenterYnecizdLAXJPJZCQZ3468-16-52 15:25:00 Test Item Value Reference Range Interpretation Comments Salicylate Lvl (test 2.4 See_Comment [Autom ated message] The code = Salicylate Lvl) syste m which generated this result tra nsmitted reference range : <=30.0. The reference r peri was not used to int erpret this result as normal/abnormal . [facility] INcubes [id number] 15:25:00 Test Item Value Reference Range Interpretation Comments Glucose Lvl (test code = Glucose Lvl) 90 70-99 [facility] [employer] [id number] 15:25:00 Test Item Value Reference Range Interpretation Comments BUN (test code = BUN) 18 7-22 [facility] [employer] [id number] 15:25:00 Test Item Value Reference Range Interpretation Comments Creatinine Lvl (test code = Creatinine 0.96 0.50-1.40 Lvl) [facility] [employer] [id number] 15:25:00 Test Item Value Reference Range Interpretation Comments Sodium Lvl (test code = Sodium Lvl) 144 135-145 [place] 493092-08-21 15:25:00 Test Item Value Reference Range Interpretation Comments Potassium Lvl (test code = Potassium 4.4 3.5-5.1 Lvl) [place] 493092-08-21 15:25:00 Test Item Value Reference Range Interpretation Comments Chloride Lvl (test code = Chloride Lvl) 112 95-109 [place] 493092-08-21 15:25:00 Test Item Value Reference Range Interpretation Comments CO2 (test code = CO2) 26 24-32 [place] 493092-08-21 15:25:00 Test Item Value Reference Range Interpretation Comments Calcium Lvl (test code = Calcium Lvl) 9.2 8.5-10.5 [place] 493092-08-21 15:25:00 Test Item Value Reference Range Interpretation Comments AGAP (test code = AGAP) 10.4 10.0-20.0 [place] 493092-08-21 15:25:00 Test Item Value Reference Range Interpretation Comments eGFR (test code = eGFR) 100 [place] 493092-08-21 15:25:00 Test Item Value Reference Range Interpretation Comments Magnesium Lvl (test code = Magnesium 2.1 1.8-2.4 Lvl) [place] 493092-08-21 15:25:00 Test Item Value Reference Range Interpretation Comments Phosphorus (test code = Phosphorus) 3.5 2.5-4.5 [place] 505542-08-21 15:25:00 Test Item Value Reference Range Interpretation Comments WBC X 10x3 (test code = WBC X 10x3) 9.0 3.7-10.4 [place] 505542-08-21 15:25:00 Test Item Value Reference Range Interpretation Comments RBC X 10x6 (test code = RBC X 10x6) 4.66 4.70-6.10 [place] [address]-08-21 15:25:00 Test Item Value Reference Range Interpretation Comments Hgb (test code = Hgb) 14.5 14.0-18.0 [place] [address]-08-21 15:25:00 Test Item Value Reference Range Interpretation Comments Hct (test code = Hct) 43.7 42.0-54.0 [place] 505542-08-21 15:25:00 Test Item Value Reference Range Interpretation Comments MCV (test code = MCV) 93.8 80.0-94.0 [place] [address]-08-21 15:25:00 Test Item Value Reference Range Interpretation Comments MCH (test code = MCH) 31.1 pg 27.0-31.0 [place] 505542-08-21 15:25:00 Test Item Value Reference Range Interpretation Comments MCHC (test code = MCHC) 33.1 32.0-36.0 [place] 505542-08-21 15:25:00 Test Item Value Reference Range Interpretation Comments RDW (test code = RDW) 13.7 11.5-14.5 [place] [address]-08-21 15:25:00 Test Item Value Reference Range Interpretation Comments Platelet (test code = Platelet) 214 133-450 [place] 505542-08-21 15:25:00 Test Item Value Reference Range Interpretation Comments MPV (test code = MPV) 9.1 7.4-10.4 [place] [address]-08-21 15:25:00 Test Item Value Reference Range Interpretation Comments Segs (test code = Segs) 63.9 45.0-75.0 [place] [address]-08-21 15:25:00 Test Item Value Reference Range Interpretation Comments Lymphocytes (test code = Lymphocytes) 23.4 20.0-40.0 [place] 505542-08-21 15:25:00 Test Item Value Reference Range Interpretation Comments Monocytes (test code = Monocytes) 7.7 2.0-12.0 [place] [address]-08-21 15:25:00 Test Item Value Reference Range Interpretation Comments Eosinophils (test code = 4.3 See_Comment [A utomated message] The Eosinophils) system which ge nerated this result tra nsmitted reference range : <=4.0. The reference r peri was not used to int erpret this result as normal/abnormal . [place] [address]-08-21 15:25:00 Test Item Value Reference Range Interpretation Comments Basophils (test code = 0.7 See_Comment [Aut omated message] The Basophils) system which ge nerated this result tra nsmitted reference range : <=1.0. The reference r peri was not used to int erpret this result as normal/abnormal . [place] 505542-08-21 15:25:00 Test Item Value Reference Range Interpretation Comments Neutrophils # (test code = Neutrophils 5.8 1.5-8.1 #) [place] 493092-08-21 15:25:00 Test Item Value Reference Range Interpretation Comments Glucose Lvl (test code = Glucose Lvl) 90 70-99 [place] 493092-08-21 15:25:00 Test Item Value Reference Range Interpretation Comments BUN (test code = BUN) 18 7-22 [place] 493092-08-21 15:25:00 Test Item Value Reference Range Interpretation Comments Creatinine Lvl (test code = Creatinine 0.96 0.50-1.40 Lvl) [place] 493092-08-21 15:25:00 Test Item Value Reference Range Interpretation Comments Sodium Lvl (test code = Sodium Lvl) 144 135-145 [place] 505542-08-21 15:25:00 Test Item Value Reference Range Interpretation Comments Lymphocytes # (test code = Lymphocytes 2.1 1.0-5.5 #) [place] 493092-08-21 15:25:00 Test Item Value Reference Range Interpretation Comments Potassium Lvl (test code = Potassium 4.4 3.5-5.1 Lvl) [place] 493092-08-21 15:25:00 Test Item Value Reference Range Interpretation Comments Chloride Lvl (test code = Chloride Lvl) 112 95-109 [place] 493092-08-21 15:25:00 Test Item Value Reference Range Interpretation Comments CO2 (test code = CO2) 26 24-32 [place] 493092-08-21 15:25:00 Test Item Value Reference Range Interpretation Comments Calcium Lvl (test code = Calcium Lvl) 9.2 8.5-10.5 [place] 493092-08-21 15:25:00 Test Item Value Reference Range Interpretation Comments AGAP (test code = AGAP) 10.4 10.0-20.0 [place] 493092-08-21 15:25:00 Test Item Value Reference Range Interpretation Comments eGFR (test code = eGFR) 100 [facility]2022-08-21 15:25:00 Test Item Value Reference Range Interpretation Comments Magnesium Lvl (test code = Magnesium 2.1 1.8-2.4 Lvl) [facility]2022-08-21 15:25:00 Test Item Value Reference Range Interpretation Comments Phosphorus (test code = Phosphorus) 3.5 2.5-4.5 [place] 505542-08-21 15:25:00 Test Item Value Reference Range Interpretation Comments WBC X 10x3 (test code = WBC X 10x3) 9.0 3.7-10.4 [place] 505542-08-21 15:25:00 Test Item Value Reference Range Interpretation Comments RBC X 10x6 (test code = RBC X 10x6) 4.66 4.70-6.10 [place] 505542-08-21 15:25:00 Test Item Value Reference Range Interpretation Comments Monocytes # (test code 0.7 See_Comment [Aut omated message] The = Monocytes #) system which generated this result tra nsmitted reference range : <=0.8. The reference r peri was not used to int erpret this result as normal/abnormal . [facility]OmtmlcjNUXUVMBUIK2699-05-47 15:25:00 Test Item Value Reference Range Interpretation Comments Hgb (test code = Hgb) 14.5 14.0-18.0 [place] [address]-08-21 15:25:00 Test Item Value Reference Range Interpretation Comments Hct (test code = Hct) 43.7 42.0-54.0 [place] 505542-08-21 15:25:00 Test Item Value Reference Range Interpretation Comments MCV (test code = MCV) 93.8 80.0-94.0 [place] [address]-08-21 15:25:00 Test Item Value Reference Range Interpretation Comments MCH (test code = MCH) 31.1 pg 27.0-31.0 [place] [address]-08-21 15:25:00 Test Item Value Reference Range Interpretation Comments MCHC (test code = MCHC) 33.1 32.0-36.0 [place] [address]-08-21 15:25:00 Test Item Value Reference Range Interpretation Comments RDW (test code = RDW) 13.7 11.5-14.5 [place] 505542-08-21 15:25:00 Test Item Value Reference Range Interpretation Comments Platelet (test code = Platelet) 214 133-450 [place] 505542-08-21 15:25:00 Test Item Value Reference Range Interpretation Comments MPV (test code = MPV) 9.1 7.4-10.4 [place] 505542-08-21 15:25:00 Test Item Value Reference Range Interpretation Comments Segs (test code = Segs) 63.9 45.0-75.0 [place] 505542-08-21 15:25:00 Test Item Value Reference Range Interpretation Comments Lymphocytes (test code = Lymphocytes) 23.4 20.0-40.0 [place] 505542-08-21 15:25:00 Test Item Value Reference Range Interpretation Comments Eosinophils # (test code 0.4 See_Comment [A utomated message] The = Eosinophils #) system wh h generated this result tra nsmitted reference range : <=0.5. The reference r peri was not used to int erpret this result as normal/abnormal . [facility] CenterLhtaxarHBYNHBICIJ5416-84-00 15:25:00 Test Item Value Reference Range Interpretation Comments Monocytes (test code = Monocytes) 7.7 2.0-12.0 [place] 505542-08-21 15:25:00 Test Item Value Reference Range Interpretation Comments Eosinophils (test code = 4.3 See_Comment [A utomated message] The Eosinophils) system which ge nerated this result tra nsmitted reference range : <=4.0. The reference r peri was not used to int erpret this result as normal/abnormal . [place] 505542-08-21 15:25:00 Test Item Value Reference Range Interpretation Comments Basophils (test code = 0.7 See_Comment [Aut omated message] The Basophils) system which ge nerated this result tra nsmitted reference range : <=1.0. The reference r peri was not used to int erpret this result as normal/abnormal . [place] 505542-08-21 15:25:00 Test Item Value Reference Range Interpretation Comments Neutrophils # (test code = Neutrophils 5.8 1.5-8.1 #) [place] [address]-08-21 15:25:00 Test Item Value Reference Range Interpretation Comments Lymphocytes # (test code = Lymphocytes 2.1 1.0-5.5 #) [facility] CenterIuvqvogKBDXKTIWSH3017-32-41 15:25:00 Test Item Value Reference Range Interpretation Comments Monocytes # (test code 0.7 See_Comment [Aut omated message] The = Monocytes #) system which generated this result tra nsmitted reference range : <=0.8. The reference r peri was not used to int erpret this result as normal/abnormal . [facility] CenterDggfzphRIXGGUZWBZ7458-48-92 15:25:00 Test Item Value Reference Range Interpretation Comments Eosinophils # (test code 0.4 See_Comment [A utomated message] The = Eosinophils #) system whic h generated this result tra nsmitted reference range : <=0.5. The reference r peri was not used to int erpret this result as normal/abnormal . [facility] CenterEnrxccaEKWWTBLCBQ9968-30-69 15:25:00 Test Item Value Reference Range Interpretation Comments Basophils # (test code 0.1 See_Comment [Aut omated message] The = Basophils #) system which generated this result tra nsmitted reference range : <=0.2. The reference r peri was not used to int erpret this result as normal/abnormal . [facility]SlcpxgvLDPYDSBVDB4758-94-99 15:25:00 Test Item Value Reference Range Interpretation Comments Acetaminoph Lvl (test code = no gt 10-20 Acetaminoph Lvl) [place] 895492-08-21 15:25:00 Test Item Value Reference Range Interpretation Comments Ethanol Lvl (test code = Ethanol Lvl) no gt [facility] CenterTxoaiftELWCGUWWSX0902-06-43 15:25:00 Test Item Value Reference Range Interpretation Comments Basophils # (test code 0.1 See_Comment [Aut omated message] The = Basophils #) system which generated this result tra nsmitted reference range : <=0.2. The reference r peri was not used to int erpret this result as normal/abnormal . [place] 87785022-08-21 15:25:00 Test Item Value Reference Range Interpretation Comments Etoh (%) (test code = Etoh (%)) no gt [facility] GrapevineRtpalrxVQUXKLSQQJ2672-61-87 15:25:00 Test Item Value Reference Range Interpretation Comments Salicylate Lvl (test 2.4 See_Comment [Autom ated message] The code = Salicylate Lvl) syste m which generated this result tra nsmitted reference range : <=30.0. The reference r peri was not used to int erpret this result as normal/abnormal . [facility] CenterBqtodafGJQPCLSLYZ4137-13-52 15:25:00 Test Item Value Reference Range Interpretation Comments Acetaminoph Lvl (test code = no gt 10-20 Acetaminoph Lvl) [facility] CenterAsinnyfUDOASKGANC3550-33-59 15:25:00 Test Item Value Reference Range Interpretation Comments Ethanol Lvl (test code = Ethanol Lvl) no gt [facility] CenterHaccgsmBSMUBNYEMO5229-01-34 15:25:00 Test Item Value Reference Range Interpretation Comments Etoh (%) (test code = Etoh (%)) no gt [facility] CenterNbfvwxyNPFEEKGIDY4944-18-14 15:25:00 Test Item Value Reference Range Interpretation Comments Salicylate Lvl (test 2.4 See_Comment [Autom ated message] The code = Salicylate Lvl) syste m which generated this result tra nsmitted reference range : <=30.0. The reference r peri was not used to int erpret this result as normal/abnormal . [facility] ZvknshzMFSC-XyA-0 RNA Resp Ql CAMERON+iygha4935-24-10 21:23:36 Test Item Value Reference Range Interpretation Comments Hospitalized? (test No code = 68493-5) ICU? (test code = No 43414-3) Symptomatic as defined No by CDC? (test code = 21365-7) Employed in No Healthcare? (test code = 54158-4) Resident in a No congregate care setting (including nursing homes, residential care for people with intellectual and developmental disabilities, psychiatric treatment facilities, group homes, board and care homes, homeless longterm, foster care or other): (test code = 24751-1) SARS-CoV-2 RNA Resp Ql NOT DETECTED Not Detected INTER PRETATION: No CAMERON+probe (test code = detec table levels 91337-5) of SARS-CoV-2 Coronavirus (COVID-19) were present in [...] its performance characteristics were verified by the [facility] molecular diagnostics laboratory and is authorized for clinical diagnostic use. This laboratory is certified under the Clinical Laboratory Improvement Amendments (CLIA) as qualified to perform high complexity clinical laboratory testing.HHSCOVID 19 Asymptomatic IH [id number] 04:37:00 Test Item Value Reference Range Interpretation Comments COVID 19 Asymptomatic IH AG (test Negative Neg code = COVNONPUIAG) TROP-I HIGH [id number] 19:54:00 Test Item Value Reference Range Interpretation [...] sults and URLs may vary b ymethod. NGFDAPENRCJFY8769-40-20 17:30:00 Test Item Value Reference Range Interpretation Comments ACETAMINOPHEN (test code = ACET) <2.0 mcG/ML 10.0-30.0 L [id number] 17:30:00 Test Item Value Reference Range Interpretation Comments ALCOHOL (test code = 4 MG/DL 0-10 N MEDICAL ALCOHOL RESULTS. ALC) SITE WAS PREPPE D WITH BETADINE. <10 MG/DL ARE CONSIDERED NEGA TIVE. >400 MG/DL MAY BE FATAL.RESULTS F OR MEDICAL USE ONL Y. NOT TO BE USED FOR FOR ENSIC PURPOSES. DRUGS OF ABUSE SCREEN [id number] 16:59:00 Test Item Value Reference Interpretation Comments [...] available. Clin ical consideration andprofessional judgement stefano d be applied to any drug ofabuse test re sult, particularly wh en preliminary positiveresults are used. [Automate d message] The sy stem which generated this result transmit suze reference range : <25 NG/ML. The refe rence range was not u sed to interpret this result as normal/abnormal . COMPREHENSIVE METABOLIC [id number] 16:59:00 Test Item Value Reference Range Interpretation [...] (test code = MG Index/DL The system [employer] HEM[employer]) generated this result transmit suze reference range [...] to interpret this result as normal/abnormal . [id number] 16:59:00 Test Item Value Reference Range Interpretation Comments MAGNESIUM (test code = MAG) 2.6 MG/DL 1.6-2.6 N TROP-I HIGH [id number] 16:57:00 Test Item Value Reference Range Interpretation [...] sults and URLs may vary b ymethod. [id number] 16:52:00 Test Item Value Reference Range Interpretation Comments SALICYLATE (test code < 1.7 MG/DL See_Comment L RESULT <2.8 IS = SANTA) CONSIDERED NEGA TIVE FOR SALICYLATE. [Automated mess age] The system [employer] generated this result transmitted ref erence range: 2.8-20.0 THER. The reference r peri was not used to interpret this result as normal/abnor mal. B-TYPE NATRIURETIC [id number] 10:26:00 Test Item Value Reference Range Interpretation Comments B-TYPE NATRIURETIC PEPTIDE < 30.00 PG/ML 0.00-100.00 N (test code = BNP) CBC W/O [id number] 09:39:00 Test Item Value Reference Range Interpretation [...] code = 11.0 fL 7.6-10.4 H MPV) CHEM [id number] 20:25:00 Test Item Value Reference Range Interpretation Comments B/C Ratio (test code = B/C Ratio) 23 1 6-25 [facility] T-VIPSannCHEM [id number] 20:25:00 Test Item Value Reference Range Interpretation Comments Globulin (test code = Globulin) 3.7 2.7-4.2 [facility] T-VIPSannCHEM [id number] 20:25:00 Test Item Value Reference Range Interpretation Comments A/G Ratio (test code = A/G Ratio) 1.2 1 0.7-1.6 [facility] T-VIPSannCHEM [id number] 20:25:00 Test Item Value Reference Range Interpretation Comments eGFR (test code = eGFR) 75 [facility] CenterIqlnyqvYBDGWNTFTU2166-80-12 20:25:00 Test Item Value Reference Range Interpretation Comments Segs (test code = Segs) 77.6 45.0-75.0 [place] 505542-06-22 20:25:00 Test Item Value Reference Range Interpretation Comments Lymphocytes (test code = Lymphocytes) 14.9 20.0-40.0 [place] 505542-06-22 20:25:00 Test Item Value Reference Range Interpretation Comments Monocytes (test code = Monocytes) 7.0 2.0-12.0 [place] 505542-06-22 20:25:00 Test Item Value Reference Range Interpretation Comments Eosinophils (test code = 0.1 See_Comment [A utomated message] The Eosinophils) system which ge nerated this result tra nsmitted reference range : <=4.0. The reference r peri was not used to int erpret this result as normal/abnormal . [place] 505542-06-22 20:25:00 Test Item Value Reference Range Interpretation Comments Basophils (test code = 0.4 See_Comment [Aut omated message] The Basophils) system which ge nerated this result tra nsmitted reference range : <=1.0. The reference r peri was not used to int erpret this result as normal/abnormal . [place] 505542-06-22 20:25:00 Test Item Value Reference Range Interpretation Comments Neutrophils # (test code = Neutrophils 11.3 1.5-8.1 #) [place] 505542-06-22 20:25:00 Test Item Value Reference Range Interpretation Comments Lymphocytes # (test code = Lymphocytes 2.2 1.0-5.5 #) [place] 505542-06-22 20:25:00 Test Item Value Reference Range Interpretation Comments Monocytes # (test code 1.0 See_Comment [Aut omated message] The = Monocytes #) system which generated this result tra nsmitted reference range : <=0.8. The reference r peri was not used to int erpret this result as normal/abnormal . [place] 505542-06-22 20:25:00 Test Item Value Reference Range Interpretation Comments Basophils # (test code 0.1 See_Comment [Aut omated message] The = Basophils #) system which generated this result tra nsmitted reference range : <=0.2. The reference r peri was not used to int erpret this result as normal/abnormal . [place] 505542-06-22 20:25:00 Test Item Value Reference Range Interpretation Comments WBC X 10x3 (test code = WBC X 10x3) 14.6 3.7-10.4 [place] 505542-06-22 20:25:00 Test Item Value Reference Range Interpretation Comments RBC X 10x6 (test code = RBC X 10x6) 4.77 4.70-6.10 [place] 505542-06-22 20:25:00 Test Item Value Reference Range Interpretation Comments Hgb (test code = Hgb) 14.6 14.0-18.0 [place] 505542-06-22 20:25:00 Test Item Value Reference Range Interpretation Comments Hct (test code = Hct) 44.7 42.0-54.0 [place] 505542-06-22 20:25:00 Test Item Value Reference Range Interpretation Comments MCV (test code = MCV) 93.6 80.0-94.0 [place] 505542-06-22 20:25:00 Test Item Value Reference Range Interpretation Comments MCH (test code = MCH) 30.7 pg 27.0-31.0 [place] 505542-06-22 20:25:00 Test Item Value Reference Range Interpretation Comments MCHC (test code = MCHC) 32.8 32.0-36.0 [place] 505542-06-22 20:25:00 Test Item Value Reference Range Interpretation Comments RDW (test code = RDW) 13.7 11.5-14.5 [place] 505542-06-22 20:25:00 Test Item Value Reference Range Interpretation Comments Platelet (test code = Platelet) 244 133-450 [place] 505542-06-22 20:25:00 Test Item Value Reference Range Interpretation Comments MPV (test code = MPV) 9.1 7.4-10.4 [place] 493092-06-22 20:25:00 Test Item Value Reference Range Interpretation Comments Glucose Lvl (test code = Glucose Lvl) 106 70-99 [facility]2022-06-22 20:25:00 Test Item Value Reference Range Interpretation Comments BUN (test code = BUN) 27 7-22 [place] 493092-06-22 20:25:00 Test Item Value Reference Range Interpretation Comments Creatinine Lvl (test code = Creatinine 1.17 0.50-1.40 Lvl) [place] 493092-06-22 20:25:00 Test Item Value Reference Range Interpretation Comments Sodium Lvl (test code = Sodium Lvl) 139 135-145 [place] 493092-06-22 20:25:00 Test Item Value Reference Range Interpretation Comments Potassium Lvl (test code = Potassium 4.2 3.5-5.1 Lvl) [place] 493092-06-22 20:25:00 Test Item Value Reference Range Interpretation Comments Chloride Lvl (test code = Chloride Lvl) 106 95-109 [place] 493092-06-22 20:25:00 Test Item Value Reference Range Interpretation Comments CO2 (test code = CO2) 26 24-32 [place] 493092-06-22 20:25:00 Test Item Value Reference Range Interpretation Comments Calcium Lvl (test code = Calcium Lvl) 9.7 8.5-10.5 [place] 493092-06-22 20:25:00 Test Item Value Reference Range Interpretation Comments Total Protein (test code = Total 8.1 6.4-8.4 Protein) [place] 493092-06-22 20:25:00 Test Item Value Reference Range Interpretation Comments Albumin Lvl (test code = Albumin Lvl) 4.4 3.5-5.0 [place] 493092-06-22 20:25:00 Test Item Value Reference Range Interpretation Comments ALANINE AMINOTRANSFERASE 27 See_Comment [A utomated message] (test code = ALANINE The sys tem which AMINOTRANSFERASE) generated this result transmitted ref erence range: <=65. Th e reference range was not used to int erpret this result as normal/abnormal . [facility] [id number] 20:25:00 Test Item Value Reference Range Interpretation Comments AST (test code = AST) 17 See_Comment [Auto mated message] The system which ge nerated this result transmit suze reference range : <=37. The reference range was not used to interpr et this result as anselmo l/abnormal. [place] 493092-06-22 20:25:00 Test Item Value Reference Range Interpretation Comments Alk Phos (test code = Alk Phos) 78 39-136 [facility] [place] 311592-06-22 20:25:00 Test Item Value Reference Range Interpretation Comments Bili Total (test code = Bili Total) 0.9 0.2-1.3 [place] [address]-06-22 20:25:00 Test Item Value Reference Range Interpretation Comments AGAP (test code = AGAP) 11.2 10.0-20.0 [place] [address]-06-22 20:25:00 Test Item Value Reference Range Interpretation Comments B/C Ratio (test code = B/C Ratio) 23 1 6-25 [place] [address]-06-22 20:25:00 Test Item Value Reference Range Interpretation Comments Globulin (test code = Globulin) 3.7 2.7-4.2 [place] [address]-06-22 20:25:00 Test Item Value Reference Range Interpretation Comments A/G Ratio (test code = A/G Ratio) 1.2 1 0.7-1.6 [place] [address]-06-22 20:25:00 Test Item Value Reference Range Interpretation Comments eGFR (test code = eGFR) 75 [place] [address]-06-22 20:25:00 Test Item Value Reference Range Interpretation Comments Segs (test code = Segs) 77.6 45.0-75.0 [place] [address]-06-22 20:25:00 Test Item Value Reference Range Interpretation Comments Lymphocytes (test code = Lymphocytes) 14.9 20.0-40.0 [place] [address]-06-22 20:25:00 Test Item Value Reference Range Interpretation Comments Monocytes (test code = Monocytes) 7.0 2.0-12.0 [place] [address]-06-22 20:25:00 Test Item Value Reference Range Interpretation Comments Eosinophils (test code = 0.1 See_Comment [A utomated message] The Eosinophils) system which ge nerated this result tra nsmitted reference range : <=4.0. The reference r peri was not used to int erpret this result as normal/abnormal . [place] [address]-06-22 20:25:00 Test Item Value Reference Range Interpretation Comments Basophils (test code = 0.4 See_Comment [Aut omated message] The Basophils) system which ge nerated this result tra nsmitted reference range : <=1.0. The reference r peri was not used to int erpret this result as normal/abnormal . [place] 505542-06-22 20:25:00 Test Item Value Reference Range Interpretation Comments Neutrophils # (test code = Neutrophils 11.3 1.5-8.1 #) [place] 505542-06-22 20:25:00 Test Item Value Reference Range Interpretation Comments Lymphocytes # (test code = Lymphocytes 2.2 1.0-5.5 #) [place] 505542-06-22 20:25:00 Test Item Value Reference Range Interpretation Comments Monocytes # (test code 1.0 See_Comment [Aut omated message] The = Monocytes #) system which generated this result tra nsmitted reference range : <=0.8. The reference r peri was not used to int erpret this result as normal/abnormal . [place] 505542-06-22 20:25:00 Test Item Value Reference Range Interpretation Comments Basophils # (test code 0.1 See_Comment [Aut omated message] The = Basophils #) system which generated this result tra nsmitted reference range : <=0.2. The reference r peri was not used to int erpret this result as normal/abnormal . [place] 505542-06-22 20:25:00 Test Item Value Reference Range Interpretation Comments WBC X 10x3 (test code = WBC X 10x3) 14.6 3.7-10.4 [place] 505542-06-22 20:25:00 Test Item Value Reference Range Interpretation Comments RBC X 10x6 (test code = RBC X 10x6) 4.77 4.70-6.10 [place] 505542-06-22 20:25:00 Test Item Value Reference Range Interpretation Comments Hgb (test code = Hgb) 14.6 14.0-18.0 [place] [address]-06-22 20:25:00 Test Item Value Reference Range Interpretation Comments Hct (test code = Hct) 44.7 42.0-54.0 [place] [address]-06-22 20:25:00 Test Item Value Reference Range Interpretation Comments MCV (test code = MCV) 93.6 80.0-94.0 [place] 505542-06-22 20:25:00 Test Item Value Reference Range Interpretation Comments MCH (test code = MCH) 30.7 pg 27.0-31.0 [facility]ojqoDWZUVVOCTB6158-[facility]-71 20:25:00 Test Item Value Reference Range Interpretation Comments MCHC (test code = MCHC) 32.8 32.0-36.0 [place] 505542-06-22 20:25:00 Test Item Value Reference Range Interpretation Comments RDW (test code = RDW) 13.7 11.5-14.5 [place] 505542-06-22 20:25:00 Test Item Value Reference Range Interpretation Comments Platelet (test code = Platelet) 244 133-450 [facility]ZclbnstDEZKWLLOIW6893-50-50 20:25:00 Test Item Value Reference Range Interpretation Comments MPV (test code = MPV) 9.1 7.4-10.4 [place] 493092-06-22 20:25:00 Test Item Value Reference Range Interpretation Comments Glucose Lvl (test code = Glucose Lvl) 106 70-99 [place] 493092-06-22 20:25:00 Test Item Value Reference Range Interpretation Comments BUN (test code = BUN) 27 7-22 [facility]2022-06-22 20:25:00 Test Item Value Reference Range Interpretation Comments Creatinine Lvl (test code = Creatinine 1.17 0.50-1.40 Lvl) [facility]2022-06-22 20:25:00 Test Item Value Reference Range Interpretation Comments Sodium Lvl (test code = Sodium Lvl) 139 135-145 [facility]2022-06-22 20:25:00 Test Item Value Reference Range Interpretation Comments Potassium Lvl (test code = Potassium 4.2 3.5-5.1 Lvl) [place] 493092-06-22 20:25:00 Test Item Value Reference Range Interpretation Comments Chloride Lvl (test code = Chloride Lvl) 106 95-109 [place] 493092-06-22 20:25:00 Test Item Value Reference Range Interpretation Comments CO2 (test code = CO2) 26 24-32 [facility]2022-06-22 20:25:00 Test Item Value Reference Range Interpretation Comments Calcium Lvl (test code = Calcium Lvl) 9.7 8.5-10.5 [place] 493092-06-22 20:25:00 Test Item Value Reference Range Interpretation Comments Total Protein (test code = Total 8.1 6.4-8.4 Protein) [place] 493092-06-22 20:25:00 Test Item Value Reference Range Interpretation Comments Albumin Lvl (test code = Albumin Lvl) 4.4 3.5-5.0 [facility] [id number] 20:25:00 Test Item Value Reference Range Interpretation Comments ALANINE AMINOTRANSFERASE 27 See_Comment [A utomated message] (test code = ALANINE The sys tem which AMINOTRANSFERASE) generated this result transmitted ref erence range: <=65. Th e reference range was not used to int erpret this result as normal/abnormal . [facility] [id number] 20:25:00 Test Item Value Reference Range Interpretation Comments AST (test code = AST) 17 See_Comment [Auto mated message] The system which ge nerated this result transmit suze reference range : <=37. The reference range was not used to interpr et this result as anselmo l/abnormal. [facility] [id number] 20:25:00 Test Item Value Reference Range Interpretation Comments Alk Phos (test code = Alk Phos) 78 39-136 [facility] [id number] 20:25:00 Test Item Value Reference Range Interpretation Comments Bili Total (test code = Bili Total) 0.9 0.2-1.3 [facility] [id number] 20:25:00 Test Item Value Reference Range Interpretation Comments AGAP (test code = AGAP) 11.2 10.0-20.0 [facility] [id number] 20:25:00 Test Item Value Reference Range Interpretation Comments B/C Ratio (test code = B/C Ratio) 23 1 6-25 [facility] [id number] 20:25:00 Test Item Value Reference Range Interpretation Comments Globulin (test code = Globulin) 3.7 2.7-4.2 [facility] [id number] 20:25:00 Test Item Value Reference Range Interpretation Comments A/G Ratio (test code = A/G Ratio) 1.2 1 0.7-1.6 [facility]ann[facility] [id number] 20:25:00 Test Item Value Reference Range Interpretation Comments eGFR (test code = eGFR) 75 [place] 505542-06-22 20:25:00 Test Item Value Reference Range Interpretation Comments Segs (test code = Segs) 77.6 45.0-75.0 [place] [address]-06-22 20:25:00 Test Item Value Reference Range Interpretation Comments Lymphocytes (test code = Lymphocytes) 14.9 20.0-40.0 [place] [address]-06-22 20:25:00 Test Item Value Reference Range Interpretation Comments Monocytes (test code = Monocytes) 7.0 2.0-12.0 [place] 505542-06-22 20:25:00 Test Item Value Reference Range Interpretation Comments Eosinophils (test code = 0.1 See_Comment [A utomated message] The Eosinophils) system which ge nerated this result tra nsmitted reference range : <=4.0. The reference r peri was not used to int erpret this result as normal/abnormal . [place] [address]-06-22 20:25:00 Test Item Value Reference Range Interpretation Comments Basophils (test code = 0.4 See_Comment [Aut omated message] The Basophils) system which ge nerated this result tra nsmitted reference range : <=1.0. The reference r peri was not used to int erpret this result as normal/abnormal . [place] [address]-06-22 20:25:00 Test Item Value Reference Range Interpretation Comments Neutrophils # (test code = Neutrophils 11.3 1.5-8.1 #) [place] [address]-06-22 20:25:00 Test Item Value Reference Range Interpretation Comments Lymphocytes # (test code = Lymphocytes 2.2 1.0-5.5 #) [place] [address]-06-22 20:25:00 Test Item Value Reference Range Interpretation Comments Monocytes # (test code 1.0 See_Comment [Aut omated message] The = Monocytes #) system which generated this result tra nsmitted reference range : <=0.8. The reference r peri was not used to int erpret this result as normal/abnormal . [place] [address]-06-22 20:25:00 Test Item Value Reference Range Interpretation Comments Basophils # (test code 0.1 See_Comment [Aut omated message] The = Basophils #) system which generated this result tra nsmitted reference range : <=0.2. The reference r peri was not used to int erpret this result as normal/abnormal . [facility] CenterZwpazdqIBHHXBVYYN2554-08-76 20:25:00 Test Item Value Reference Range Interpretation Comments WBC X 10x3 (test code = WBC X 10x3) 14.6 3.7-10.4 [facility] CenterMfkyixqXBYBFLIPWW3903-15-03 20:25:00 Test Item Value Reference Range Interpretation Comments RBC X 10x6 (test code = RBC X 10x6) 4.77 4.70-6.10 [facility] C[id number] 20:25:00 Test Item Value Reference Range Interpretation Comments Hgb (test code = Hgb) 14.6 14.0-18.0 [place] 505542-06-22 20:25:00 Test Item Value Reference Range Interpretation Comments Hct (test code = Hct) 44.7 42.0-54.0 [facility] CenterLiakbliPAFDERGHHY1604-47-47 20:25:00 Test Item Value Reference Range Interpretation Comments MCV (test code = MCV) 93.6 80.0-94.0 [facility]DM[facility]RIEIU7247[facility]63-89 20:25:00 Test Item Value Reference Range Interpretation Comments MCH (test code = MCH) 30.7 pg 27.0-31.0 [facility] CenterQmtgdxtXPTWDAVCNO2476-82-43 20:25:00 Test Item Value Reference Range Interpretation Comments MCHC (test code = MCHC) 32.8 32.0-36.0 [facility] CenterWoyukuwXHTRODCHKI7308-95-81 20:25:00 Test Item Value Reference Range Interpretation Comments RDW (test code = RDW) 13.7 11.5-14.5 [facility] CenterMxafthcROGDCUDQPC5448-92-33 20:25:00 Test Item Value Reference Range Interpretation Comments Platelet (test code = Platelet) 244 133-450 [facility] CenterPkaengyYAGLTSJENK2513-25-37 20:25:00 Test Item Value Reference Range Interpretation Comments MPV (test code = MPV) 9.1 7.4-10.4 [facility]2022-06-22 20:25:00 Test Item Value Reference Range Interpretation Comments Glucose Lvl (test code = Glucose Lvl) 106 70-99 [place] 493092-06-22 20:25:00 Test Item Value Reference Range Interpretation Comments BUN (test code = BUN) 27 7-22 [place] 493092-06-22 20:25:00 Test Item Value Reference Range Interpretation Comments Creatinine Lvl (test code = Creatinine 1.17 0.50-1.40 Lvl) [place] 493092-06-22 20:25:00 Test Item Value Reference Range Interpretation Comments Sodium Lvl (test code = Sodium Lvl) 139 135-145 [place] 493092-06-22 20:25:00 Test Item Value Reference Range Interpretation Comments Potassium Lvl (test code = Potassium 4.2 3.5-5.1 Lvl) [place] 493092-06-22 20:25:00 Test Item Value Reference Range Interpretation Comments Chloride Lvl (test code = Chloride Lvl) 106 95-109 [place] 493092-06-22 20:25:00 Test Item Value Reference Range Interpretation Comments CO2 (test code = CO2) 26 24-32 [place] 493092-06-22 20:25:00 Test Item Value Reference Range Interpretation Comments Calcium Lvl (test code = Calcium Lvl) 9.7 8.5-10.5 [place] 493092-06-22 20:25:00 Test Item Value Reference Range Interpretation Comments Total Protein (test code = Total 8.1 6.4-8.4 Protein) [place] 493092-06-22 20:25:00 Test Item Value Reference Range Interpretation Comments Albumin Lvl (test code = Albumin Lvl) 4.4 3.5-5.0 [place] 493092-06-22 20:25:00 Test Item Value Reference Range Interpretation Comments ALANINE AMINOTRANSFERASE 27 See_Comment [A utomated message] (test code = ALANINE The sys tem which AMINOTRANSFERASE) generated this result transmitted ref erence range: <=65. Th e reference range was not used to int erpret this result as normal/abnormal . [place] 493092-06-22 20:25:00 Test Item Value Reference Range Interpretation Comments AST (test code = AST) 17 See_Comment [Auto mated message] The system which ge nerated this result transmit suze reference range : <=37. The reference range was not used to interpr et this result as anselmo l/abnormal. [place] 493092-06-22 20:25:00 Test Item Value Reference Range Interpretation Comments Alk Phos (test code = Alk Phos) 78 39-136 [place] 493092-06-22 20:25:00 Test Item Value Reference Range Interpretation Comments Bili Total (test code = Bili Total) 0.9 0.2-1.3 [place] 493092-06-22 20:25:00 Test Item Value Reference Range Interpretation Comments AGAP (test code = AGAP) 11.2 10.0-20.0 [place] 493092-06-22 20:25:00 Test Item Value Reference Range Interpretation Comments B/C Ratio (test code = B/C Ratio) 23 1 6-25 [place] 493092-06-22 20:25:00 Test Item Value Reference Range Interpretation Comments Globulin (test code = Globulin) 3.7 2.7-4.2 [place] 493092-06-22 20:25:00 Test Item Value Reference Range Interpretation Comments A/G Ratio (test code = A/G Ratio) 1.2 1 0.7-1.6 [facility] CenterdoughJAMES [facility] [id number] 20:25:00 Test Item Value Reference Range Interpretation Comments eGFR (test code = eGFR) 75 [place] [address]-06-22 20:25:00 Test Item Value Reference Range Interpretation Comments Segs (test code = Segs) 77.6 45.0-75.0 [place] 505542-06-22 20:25:00 Test Item Value Reference Range Interpretation Comments Lymphocytes (test code = Lymphocytes) 14.9 20.0-40.0 [place] [address]-06-22 20:25:00 Test Item Value Reference Range Interpretation Comments Monocytes (test code = Monocytes) 7.0 2.0-12.0 [place] [address]-06-22 20:25:00 Test Item Value Reference Range Interpretation Comments Eosinophils (test code = 0.1 See_Comment [A utomated message] The Eosinophils) system which ge nerated this result tra nsmitted reference range : <=4.0. The reference r prei was not used to int erpret this result as normal/abnormal . [facility] C[id number] 20:25:00 Test Item Value Reference Range Interpretation Comments Basophils (test code = 0.4 See_Comment [Aut omated message] The Basophils) system which ge nerated this result tra nsmitted reference range : <=1.0. The reference r peri was not used to int erpret this result as normal/abnormal . [facility] CenterQjfsjfhYGITILYRKQ9894-44-03 20:25:00 Test Item Value Reference Range Interpretation Comments Neutrophils # (test code = Neutrophils 11.3 1.5-8.1 #) [facility] CenterSyyvtsgQAUATPKCEN5800-65-75 20:25:00 Test Item Value Reference Range Interpretation Comments Lymphocytes # (test code = Lymphocytes 2.2 1.0-5.5 #) [facility] CenterLsubvtlOXSPNHJOMP3465-01-03 20:25:00 Test Item Value Reference Range Interpretation Comments Monocytes # (test code 1.0 See_Comment [Aut omated message] The = Monocytes #) system which generated this result tra nsmitted reference range : <=0.8. The reference r peri was not used to int erpret this result as normal/abnormal . [facility] CenterTbtyljeMSVJOWKBNG5414-32-07 20:25:00 Test Item Value Reference Range Interpretation Comments Basophils # (test code 0.1 See_Comment [Aut omated message] The = Basophils #) system which generated this result tra nsmitted reference range : <=0.2. The reference r peri was not used to int erpret this result as normal/abnormal . [facility] CenterBcpcwflIUDSBKZZSV3140-67-47 20:25:00 Test Item Value Reference Range Interpretation Comments WBC X 10x3 (test code = WBC X 10x3) 14.6 3.7-10.4 [place] 505542-06-22 20:25:00 Test Item Value Reference Range Interpretation Comments RBC X 10x6 (test code = RBC X 10x6) 4.77 4.70-6.10 [facility] CenterObgygzbSBPONORYSM4909-21-97 20:25:00 Test Item Value Reference Range Interpretation Comments Hgb (test code = Hgb) 14.6 14.0-18.0 [place] 505542-06-22 20:25:00 Test Item Value Reference Range Interpretation Comments Hct (test code = Hct) 44.7 42.0-54.0 [place] [address]-06-22 20:25:00 Test Item Value Reference Range Interpretation Comments MCV (test code = MCV) 93.6 80.0-94.0 [place] [address]-06-22 20:25:00 Test Item Value Reference Range Interpretation Comments MCH (test code = MCH) 30.7 pg 27.0-31.0 [place] 505542-06-22 20:25:00 Test Item Value Reference Range Interpretation Comments MCHC (test code = MCHC) 32.8 32.0-36.0 [place] [address]-06-22 20:25:00 Test Item Value Reference Range Interpretation Comments RDW (test code = RDW) 13.7 11.5-14.5 [place] [address]-06-22 20:25:00 Test Item Value Reference Range Interpretation Comments Platelet (test code = Platelet) 244 133-450 [place] 505542-06-22 20:25:00 Test Item Value Reference Range Interpretation Comments MPV (test code = MPV) 9.1 7.4-10.4 [place] 493092-06-22 20:25:00 Test Item Value Reference Range Interpretation Comments Glucose Lvl (test code = Glucose Lvl) 106 70-99 [place] 493092-06-22 20:25:00 Test Item Value Reference Range Interpretation Comments BUN (test code = BUN) 27 7-22 [place] 493092-06-22 20:25:00 Test Item Value Reference Range Interpretation Comments Creatinine Lvl (test code = Creatinine 1.17 0.50-1.40 Lvl) [place] 493092-06-22 20:25:00 Test Item Value Reference Range Interpretation Comments Sodium Lvl (test code = Sodium Lvl) 139 135-145 [place] 493092-06-22 20:25:00 Test Item Value Reference Range Interpretation Comments Potassium Lvl (test code = Potassium 4.2 3.5-5.1 Lvl) [place] 493092-06-22 20:25:00 Test Item Value Reference Range Interpretation Comments Chloride Lvl (test code = Chloride Lvl) 106 95-109 [place] 493092-06-22 20:25:00 Test Item Value Reference Range Interpretation Comments CO2 (test code = CO2) 26 24-32 [place] 493092-06-22 20:25:00 Test Item Value Reference Range Interpretation Comments Calcium Lvl (test code = Calcium Lvl) 9.7 8.5-10.5 [place] 493092-06-22 20:25:00 Test Item Value Reference Range Interpretation Comments Total Protein (test code = Total 8.1 6.4-8.4 Protein) [place] 493092-06-22 20:25:00 Test Item Value Reference Range Interpretation Comments Albumin Lvl (test code = Albumin Lvl) 4.4 3.5-5.0 [facility] [id number] 20:25:00 Test Item Value Reference Range Interpretation Comments ALANINE AMINOTRANSFERASE 27 See_Comment [A utomated message] (test code = ALANINE The sys tem which AMINOTRANSFERASE) generated this result transmitted ref erence range: <=65. Th e reference range was not used to int erpret this result as normal/abnormal . [facility] [id number] 20:25:00 Test Item Value Reference Range Interpretation Comments AST (test code = AST) 17 See_Comment [Auto mated message] The system which ge nerated this result transmit suze reference range : <=37. The reference range was not used to interpr et this result as anselmo l/abnormal. [facility] [id number] 20:25:00 Test Item Value Reference Range Interpretation Comments Alk Phos (test code = Alk Phos) 78 39-136 [facility] [id number] 20:25:00 Test Item Value Reference Range Interpretation Comments Bili Total (test code = Bili Total) 0.9 0.2-1.3 [facility] [id number] 20:25:00 Test Item Value Reference Range Interpretation Comments AGAP (test code = AGAP) 11.2 10.0-20.0 [facility] [id number] 20:25:00 Test Item Value Reference Range Interpretation Comments B/C Ratio (test code = B/C Ratio) 23 1 6-25 [facility] [id number] 20:25:00 Test Item Value Reference Range Interpretation Comments Globulin (test code = Globulin) 3.7 2.7-4.2 [place] 493092-06-22 20:25:00 Test Item Value Reference Range Interpretation Comments A/G Ratio (test code = A/G Ratio) 1.2 1 0.7-1.6 [place] 493092-06-22 20:25:00 Test Item Value Reference Range Interpretation Comments eGFR (test code = eGFR) 75 [place] 505542-06-22 20:25:00 Test Item Value Reference Range Interpretation Comments Segs (test code = Segs) 77.6 45.0-75.0 [place] 505542-06-22 20:25:00 Test Item Value Reference Range Interpretation Comments Lymphocytes (test code = Lymphocytes) 14.9 20.0-40.0 [place] 505542-06-22 20:25:00 Test Item Value Reference Range Interpretation Comments Monocytes (test code = Monocytes) 7.0 2.0-12.0 [place] [address]-06-22 20:25:00 Test Item Value Reference Range Interpretation Comments Eosinophils (test code = 0.1 See_Comment [A utomated message] The Eosinophils) system which ge nerated this result tra nsmitted reference range : <=4.0. The reference r peri was not used to int erpret this result as normal/abnormal . [place] 505542-06-22 20:25:00 Test Item Value Reference Range Interpretation Comments Basophils (test code = 0.4 See_Comment [Aut omated message] The Basophils) system which ge nerated this result tra nsmitted reference range : <=1.0. The reference r peri was not used to int erpret this result as normal/abnormal . [place] 505542-06-22 20:25:00 Test Item Value Reference Range Interpretation Comments Neutrophils # (test code = Neutrophils 11.3 1.5-8.1 #) [place] [address]-06-22 20:25:00 Test Item Value Reference Range Interpretation Comments Lymphocytes # (test code = Lymphocytes 2.2 1.0-5.5 #) [place] 505542-06-22 20:25:00 Test Item Value Reference Range Interpretation Comments Monocytes # (test code 1.0 See_Comment [Aut omated message] The = Monocytes #) system which generated this result tra nsmitted reference range : <=0.8. The reference r peri was not used to int erpret this result as normal/abnormal . [facility] CenterTgibpnxOXLQPINKQL7449-94-69 20:25:00 Test Item Value Reference Range Interpretation Comments Basophils # (test code 0.1 See_Comment [Aut omated message] The = Basophils #) system which generated this result tra nsmitted reference range : <=0.2. The reference r peri was not used to int erpret this result as normal/abnormal . [facility] CenterLvhaaidIYDELANQSK4595-77-39 20:25:00 Test Item Value Reference Range Interpretation Comments WBC X 10x3 (test code = WBC X 10x3) 14.6 3.7-10.4 [place] 505542-06-22 20:25:00 Test Item Value Reference Range Interpretation Comments RBC X 10x6 (test code = RBC X 10x6) 4.77 4.70-6.10 [place] 505542-06-22 20:25:00 Test Item Value Reference Range Interpretation Comments Hgb (test code = Hgb) 14.6 14.0-18.0 [place] 505542-06-22 20:25:00 Test Item Value Reference Range Interpretation Comments Hct (test code = Hct) 44.7 42.0-54.0 [place] 505542-06-22 20:25:00 Test Item Value Reference Range Interpretation Comments MCV (test code = MCV) 93.6 80.0-94.0 [place] 505542-06-22 20:25:00 Test Item Value Reference Range Interpretation Comments MCH (test code = MCH) 30.7 pg 27.0-31.0 [place] [address]-06-22 20:25:00 Test Item Value Reference Range Interpretation Comments MCHC (test code = MCHC) 32.8 32.0-36.0 [facility] [id number] 20:25:00 Test Item Value Reference Range Interpretation Comments Glucose Lvl (test code = Glucose Lvl) 106 70-99 [facility] [id number] 20:25:00 Test Item Value Reference Range Interpretation Comments BUN (test code = BUN) 27 7-22 [facility] [id number] 20:25:00 Test Item Value Reference Range Interpretation Comments Creatinine Lvl (test code = Creatinine 1.17 0.50-1.40 Lvl) [place] [address]-06-22 20:25:00 Test Item Value Reference Range Interpretation Comments Sodium Lvl (test code = Sodium Lvl) 139 135-145 [place] 493092-06-22 20:25:00 Test Item Value Reference Range Interpretation Comments Potassium Lvl (test code = Potassium 4.2 3.5-5.1 Lvl) [place] 493092-06-22 20:25:00 Test Item Value Reference Range Interpretation Comments Chloride Lvl (test code = Chloride Lvl) 106 95-109 [place] 493092-06-22 20:25:00 Test Item Value Reference Range Interpretation Comments CO2 (test code = CO2) 26 24-32 [place] 493092-06-22 20:25:00 Test Item Value Reference Range Interpretation Comments Calcium Lvl (test code = Calcium Lvl) 9.7 8.5-10.5 [place] 493092-06-22 20:25:00 Test Item Value Reference Range Interpretation Comments Total Protein (test code = Total 8.1 6.4-8.4 Protein) [facility] CenterM[id number] 20:25:00 Test Item Value Reference Range Interpretation Comments RDW (test code = RDW) 13.7 11.5-14.5 [place] 493092-06-22 20:25:00 Test Item Value Reference Range Interpretation Comments Albumin Lvl (test code = Albumin Lvl) 4.4 3.5-5.0 [place] 493092-06-22 20:25:00 Test Item Value Reference Range Interpretation Comments ALANINE AMINOTRANSFERASE 27 See_Comment [A utomated message] (test code = ALANINE The sys tem which AMINOTRANSFERASE) generated this result transmitted ref erence range: <=65. Th e reference range was not used to int erpret this result as normal/abnormal . [place] [address]-06-22 20:25:00 Test Item Value Reference Range Interpretation Comments AST (test code = AST) 17 See_Comment [Auto mated message] The system which ge nerated this result transmit suze reference range : <=37. The reference range was not used to interpr et this result as anselmo l/abnormal. [place] 493092-06-22 20:25:00 Test Item Value Reference Range Interpretation Comments Alk Phos (test code = Alk Phos) 78 39-136 [place] 493092-06-22 20:25:00 Test Item Value Reference Range Interpretation Comments Bili Total (test code = Bili Total) 0.9 0.2-1.3 [place] 493092-06-22 20:25:00 Test Item Value Reference Range Interpretation Comments AGAP (test code = AGAP) 11.2 10.0-20.0 [facility] [id number] 20:25:00 Test Item Value Reference Range Interpretation Comments B/C Ratio (test code = B/C Ratio) 23 1 6-25 [place] 493092-06-22 20:25:00 Test Item Value Reference Range Interpretation Comments Globulin (test code = Globulin) 3.7 2.7-4.2 [place] 493092-06-22 20:25:00 Test Item Value Reference Range Interpretation Comments A/G Ratio (test code = A/G Ratio) 1.2 1 0.7-1.6 [facility] [id number] 20:25:00 Test Item Value Reference Range Interpretation Comments eGFR (test code = eGFR) 75 [place] 505542-06-22 20:25:00 Test Item Value Reference Range Interpretation Comments Platelet (test code = Platelet) 244 133-450 [place] 505542-06-22 20:25:00 Test Item Value Reference Range Interpretation Comments Segs (test code = Segs) 77.6 45.0-75.0 [place] 505542-06-22 20:25:00 Test Item Value Reference Range Interpretation Comments Lymphocytes (test code = Lymphocytes) 14.9 20.0-40.0 [place] 505542-06-22 20:25:00 Test Item Value Reference Range Interpretation Comments Monocytes (test code = Monocytes) 7.0 2.0-12.0 [place] 505542-06-22 20:25:00 Test Item Value Reference Range Interpretation Comments Eosinophils (test code = 0.1 See_Comment [A utomated message] The Eosinophils) system which ge nerated this result tra nsmitted reference range : <=4.0. The reference r peri was not used to int erpret this result as normal/abnormal . [facility]iraludFPJQKDYXLY8133-45-40 20:25:00 Test Item Value Reference Range Interpretation Comments Basophils (test code = 0.4 See_Comment [Aut omated message] The Basophils) system which ge nerated this result tra nsmitted reference range : <=1.0. The reference r peri was not used to int erpret this result as normal/abnormal . [facility] CenterLjjldogSTABCKTVJI3842-36-80 20:25:00 Test Item Value Reference Range Interpretation Comments Neutrophils # (test code = Neutrophils 11.3 1.5-8.1 #) [facility] CenterBsqrcyzSWPVGOMTNC0077-19-93 20:25:00 Test Item Value Reference Range Interpretation Comments Lymphocytes # (test code = Lymphocytes 2.2 1.0-5.5 #) [facility] CenterGhbfjqyFIOWHRTOCN4591-13-01 20:25:00 Test Item Value Reference Range Interpretation Comments Monocytes # (test code 1.0 See_Comment [Aut omated message] The = Monocytes #) system which generated this result tra nsmitted reference range : <=0.8. The reference r peri was not used to int erpret this result as normal/abnormal . [facility] CenterRxzijfpMCVVDYCOPV1189-27-19 20:25:00 Test Item Value Reference Range Interpretation Comments Basophils # (test code 0.1 See_Comment [Aut omated message] The = Basophils #) system which generated this result tra nsmitted reference range : <=0.2. The reference r peri was not used to int erpret this result as normal/abnormal . [facility] CenterWfntrwcGCAUIEVPSR4767-46-49 20:25:00 Test Item Value Reference Range Interpretation Comments WBC X 10x3 (test code = WBC X 10x3) 14.6 3.7-10.4 [place] 505542-06-22 20:25:00 Test Item Value Reference Range Interpretation Comments MPV (test code = MPV) 9.1 7.4-10.4 [place] 505542-06-22 20:25:00 Test Item Value Reference Range Interpretation Comments RBC X 10x6 (test code = RBC X 10x6) 4.77 4.70-6.10 [place] 505542-06-22 20:25:00 Test Item Value Reference Range Interpretation Comments Hgb (test code = Hgb) 14.6 14.0-18.0 [place] 505542-06-22 20:25:00 Test Item Value Reference Range Interpretation Comments Hct (test code = Hct) 44.7 42.0-54.0 [place] [address]-06-22 20:25:00 Test Item Value Reference Range Interpretation Comments MCV (test code = MCV) 93.6 80.0-94.0 [place] [address]-06-22 20:25:00 Test Item Value Reference Range Interpretation Comments MCH (test code = MCH) 30.7 pg 27.0-31.0 [place] 505542-06-22 20:25:00 Test Item Value Reference Range Interpretation Comments MCHC (test code = MCHC) 32.8 32.0-36.0 [place] 505542-06-22 20:25:00 Test Item Value Reference Range Interpretation Comments RDW (test code = RDW) 13.7 11.5-14.5 [place] 505542-06-22 20:25:00 Test Item Value Reference Range Interpretation Comments Platelet (test code = Platelet) 244 133-450 [place] 505542-06-22 20:25:00 Test Item Value Reference Range Interpretation Comments MPV (test code = MPV) 9.1 7.4-10.4 [facility]2022-06-22 20:25:00 Test Item Value Reference Range Interpretation Comments Glucose Lvl (test code = Glucose Lvl) 106 70-99 [facility]2022-06-22 20:25:00 Test Item Value Reference Range Interpretation Comments BUN (test code = BUN) 27 7-22 [place] 493092-06-22 20:25:00 Test Item Value Reference Range Interpretation Comments Creatinine Lvl (test code = Creatinine 1.17 0.50-1.40 Lvl) [place] 493092-06-22 20:25:00 Test Item Value Reference Range Interpretation Comments Sodium Lvl (test code = Sodium Lvl) 139 135-145 [place] 493092-06-22 20:25:00 Test Item Value Reference Range Interpretation Comments Potassium Lvl (test code = Potassium 4.2 3.5-5.1 Lvl) [facility] [id number] 20:25:00 Test Item Value Reference Range Interpretation Comments Chloride Lvl (test code = Chloride Lvl) 106 95-109 [place] 493092-06-22 20:25:00 Test Item Value Reference Range Interpretation Comments CO2 (test code = CO2) 26 24-32 [place] 493092-06-22 20:25:00 Test Item Value Reference Range Interpretation Comments Calcium Lvl (test code = Calcium Lvl) 9.7 8.5-10.5 [facility]doughFIRSTHEALTHSWWKQ3682-84-00 20:25:00 Test Item Value Reference Range Interpretation Comments Total Protein (test code = Total 8.1 6.4-8.4 Protein) [facility]2022-06-22 20:25:00 Test Item Value Reference Range Interpretation Comments Albumin Lvl (test code = Albumin Lvl) 4.4 3.5-5.0 [facility] [id number] 20:25:00 Test Item Value Reference Range Interpretation Comments ALANINE AMINOTRANSFERASE 27 See_Comment [A utomated message] (test code = ALANINE The sys tem which AMINOTRANSFERASE) generated this result transmitted ref erence range: <=65. Th e reference range was not used to int erpret this result as normal/abnormal . [facility] CenterHoot.Me [id number] 20:25:00 Test Item Value Reference Range Interpretation Comments AST (test code = AST) 17 See_Comment [Auto mated message] The system which ge nerated this result transmit suze reference range : <=37. The reference range was not used to interpr et this result as anselmo l/abnormal. [facility] [id number] 20:25:00 Test Item Value Reference Range Interpretation Comments Alk Phos (test code = Alk Phos) 78 39-136 [facility] [id number] 20:25:00 Test Item Value Reference Range Interpretation Comments Bili Total (test code = Bili Total) 0.9 0.2-1.3 [facility] [id number] 20:25:00 Test Item Value Reference Range Interpretation Comments AGAP (test code = AGAP) 11.2 10.0-20.0 [place] 493092-06-22 20:25:00 Test Item Value Reference Range Interpretation Comments B/C Ratio (test code = B/C Ratio) 23 1 6-25 [place] [address]-06-22 20:25:00 Test Item Value Reference Range Interpretation Comments Globulin (test code = Globulin) 3.7 2.7-4.2 [place] [address]-06-22 20:25:00 Test Item Value Reference Range Interpretation Comments A/G Ratio (test code = A/G Ratio) 1.2 1 0.7-1.6 [place] [address]-06-22 20:25:00 Test Item Value Reference Range Interpretation Comments eGFR (test code = eGFR) 75 [place] [address]-06-22 20:25:00 Test Item Value Reference Range Interpretation Comments Segs (test code = Segs) 77.6 45.0-75.0 [place] [address]-06-22 20:25:00 Test Item Value Reference Range Interpretation Comments Lymphocytes (test code = Lymphocytes) 14.9 20.0-40.0 [place] [address]-06-22 20:25:00 Test Item Value Reference Range Interpretation Comments Monocytes (test code = Monocytes) 7.0 2.0-12.0 [place] [address]-06-22 20:25:00 Test Item Value Reference Range Interpretation Comments Eosinophils (test code = 0.1 See_Comment [A utomated message] The Eosinophils) system which ge nerated this result tra nsmitted reference range : <=4.0. The reference r peri was not used to int erpret this result as normal/abnormal . [place] [address]-06-22 20:25:00 Test Item Value Reference Range Interpretation Comments Basophils (test code = 0.4 See_Comment [Aut omated message] The Basophils) system which ge nerated this result tra nsmitted reference range : <=1.0. The reference r peri was not used to int erpret this result as normal/abnormal . [place] [address]-06-22 20:25:00 Test Item Value Reference Range Interpretation Comments Neutrophils # (test code = Neutrophils 11.3 1.5-8.1 #) [place] 505542-06-22 20:25:00 Test Item Value Reference Range Interpretation Comments Lymphocytes # (test code = Lymphocytes 2.2 1.0-5.5 #) [place] 505542-06-22 20:25:00 Test Item Value Reference Range Interpretation Comments Monocytes # (test code 1.0 See_Comment [Aut omated message] The = Monocytes #) system which generated this result tra nsmitted reference range : <=0.8. The reference r peri was not used to int erpret this result as normal/abnormal . [place] 505542-06-22 20:25:00 Test Item Value Reference Range Interpretation Comments Basophils # (test code 0.1 See_Comment [Aut omated message] The = Basophils #) system which generated this result tra nsmitted reference range : <=0.2. The reference r peri was not used to int erpret this result as normal/abnormal . [place] 505542-06-22 20:25:00 Test Item Value Reference Range Interpretation Comments WBC X 10x3 (test code = WBC X 10x3) 14.6 3.7-10.4 [place] 505542-06-22 20:25:00 Test Item Value Reference Range Interpretation Comments RBC X 10x6 (test code = RBC X 10x6) 4.77 4.70-6.10 [place] 505542-06-22 20:25:00 Test Item Value Reference Range Interpretation Comments Hgb (test code = Hgb) 14.6 14.0-18.0 [place] 505542-06-22 20:25:00 Test Item Value Reference Range Interpretation Comments Hct (test code = Hct) 44.7 42.0-54.0 [place] 505542-06-22 20:25:00 Test Item Value Reference Range Interpretation Comments MCV (test code = MCV) 93.6 80.0-94.0 [place] 505542-06-22 20:25:00 Test Item Value Reference Range Interpretation Comments MCH (test code = MCH) 30.7 pg 27.0-31.0 [place] 505542-06-22 20:25:00 Test Item Value Reference Range Interpretation Comments MCHC (test code = MCHC) 32.8 32.0-36.0 [place] 505542-06-22 20:25:00 Test Item Value Reference Range Interpretation Comments RDW (test code = RDW) 13.7 11.5-14.5 [place] 505542-06-22 20:25:00 Test Item Value Reference Range Interpretation Comments Platelet (test code = Platelet) 244 133-450 [place] 505542-06-22 20:25:00 Test Item Value Reference Range Interpretation Comments MPV (test code = MPV) 9.1 7.4-10.4 [place] 493092-06-22 20:25:00 Test Item Value Reference Range Interpretation Comments Glucose Lvl (test code = Glucose Lvl) 106 70-99 [place] 493092-06-22 20:25:00 Test Item Value Reference Range Interpretation Comments BUN (test code = BUN) 27 7-22 [place] 493092-06-22 20:25:00 Test Item Value Reference Range Interpretation Comments Creatinine Lvl (test code = Creatinine 1.17 0.50-1.40 Lvl) [place] 493092-06-22 20:25:00 Test Item Value Reference Range Interpretation Comments Sodium Lvl (test code = Sodium Lvl) 139 135-145 [place] 493092-06-22 20:25:00 Test Item Value Reference Range Interpretation Comments Potassium Lvl (test code = Potassium 4.2 3.5-5.1 Lvl) [place] 493092-06-22 20:25:00 Test Item Value Reference Range Interpretation Comments Chloride Lvl (test code = Chloride Lvl) 106 95-109 [place] 493092-06-22 20:25:00 Test Item Value Reference Range Interpretation Comments CO2 (test code = CO2) 26 24-32 [place] 493092-06-22 20:25:00 Test Item Value Reference Range Interpretation Comments Calcium Lvl (test code = Calcium Lvl) 9.7 8.5-10.5 [place] 493092-06-22 20:25:00 Test Item Value Reference Range Interpretation Comments Total Protein (test code = Total 8.1 6.4-8.4 Protein) [place] 493092-06-22 20:25:00 Test Item Value Reference Range Interpretation Comments Albumin Lvl (test code = Albumin Lvl) 4.4 3.5-5.0 [facility] [id number] 20:25:00 Test Item Value Reference Range Interpretation Comments ALANINE AMINOTRANSFERASE 27 See_Comment [A utomated message] (test code = ALANINE The sys tem which AMINOTRANSFERASE) generated this result transmitted ref erence range: <=65. Th e reference range was not used to int erpret this result as normal/abnormal . [facility] [id number] 20:25:00 Test Item Value Reference Range Interpretation Comments AST (test code = AST) 17 See_Comment [Auto mated message] The system which ge nerated this result transmit suze reference range : <=37. The reference range was not used to interpr et this result as anselmo l/abnormal. [facility] [employer] [id number] 20:25:00 Test Item Value Reference Range Interpretation Comments Alk Phos (test code = Alk Phos) 78 39-136 [facility] [employer] [id number] 20:25:00 Test Item Value Reference Range Interpretation Comments Bili Total (test code = Bili Total) 0.9 0.2-1.3 [facility] [id number] 20:25:00 Test Item Value Reference Range Interpretation Comments AGAP (test code = AGAP) 11.2 10.0-20.0 [facility] [employer] [id number] 20:25:00 Test Item Value Reference Range Interpretation Comments B/C Ratio (test code = B/C Ratio) 23 1 6-25 [facility] [employer] [id number] 20:25:00 Test Item Value Reference Range Interpretation Comments Globulin (test code = Globulin) 3.7 2.7-4.2 [facility] [employer] [id number] 20:25:00 Test Item Value Reference Range Interpretation Comments A/G Ratio (test code = A/G Ratio) 1.2 1 0.7-1.6 [facility] [employer] [id number] 20:25:00 Test Item Value Reference Range Interpretation Comments eGFR (test code = eGFR) 75 [facility] CenterOxuhfhjTCHXATPDEC8687-58-76 20:25:00 Test Item Value Reference Range Interpretation Comments Segs (test code = Segs) 77.6 45.0-75.0 [facility] CenterGeagrdaNGAXSVKACJ9344-72-06 20:25:00 Test Item Value Reference Range Interpretation Comments Lymphocytes (test code = Lymphocytes) 14.9 20.0-40.0 [place] 505542-06-22 20:25:00 Test Item Value Reference Range Interpretation Comments Monocytes (test code = Monocytes) 7.0 2.0-12.0 [place] [address]-06-22 20:25:00 Test Item Value Reference Range Interpretation Comments Eosinophils (test code = 0.1 See_Comment [A utomated message] The Eosinophils) system which ge nerated this result tra nsmitted reference range : <=4.0. The reference r peri was not used to int erpret this result as normal/abnormal . [place] 505542-06-22 20:25:00 Test Item Value Reference Range Interpretation Comments Basophils (test code = 0.4 See_Comment [Aut omated message] The Basophils) system which ge nerated this result tra nsmitted reference range : <=1.0. The reference r peri was not used to int erpret this result as normal/abnormal . [place] 505542-06-22 20:25:00 Test Item Value Reference Range Interpretation Comments Neutrophils # (test code = Neutrophils 11.3 1.5-8.1 #) [place] 493092-06-22 20:25:00 Test Item Value Reference Range Interpretation Comments Glucose Lvl (test code = Glucose Lvl) 106 70-99 [place] 493092-06-22 20:25:00 Test Item Value Reference Range Interpretation Comments BUN (test code = BUN) 27 7-22 [place] 493092-06-22 20:25:00 Test Item Value Reference Range Interpretation Comments Creatinine Lvl (test code = Creatinine 1.17 0.50-1.40 Lvl) [place] 493092-06-22 20:25:00 Test Item Value Reference Range Interpretation Comments Sodium Lvl (test code = Sodium Lvl) 139 135-145 [place] 505542-06-22 20:25:00 Test Item Value Reference Range Interpretation Comments Lymphocytes # (test code = Lymphocytes 2.2 1.0-5.5 #) [place] 493092-06-22 20:25:00 Test Item Value Reference Range Interpretation Comments Potassium Lvl (test code = Potassium 4.2 3.5-5.1 Lvl) [facility]2022-06-22 20:25:00 Test Item Value Reference Range Interpretation Comments Chloride Lvl (test code = Chloride Lvl) 106 95-109 [place] 493092-06-22 20:25:00 Test Item Value Reference Range Interpretation Comments CO2 (test code = CO2) 26 24-32 [place] 493092-06-22 20:25:00 Test Item Value Reference Range Interpretation Comments Calcium Lvl (test code = Calcium Lvl) 9.7 8.5-10.5 [place] 493092-06-22 20:25:00 Test Item Value Reference Range Interpretation Comments Total Protein (test code = Total 8.1 6.4-8.4 Protein) [place] 493092-06-22 20:25:00 Test Item Value Reference Range Interpretation Comments Albumin Lvl (test code = Albumin Lvl) 4.4 3.5-5.0 [place] 493092-06-22 20:25:00 Test Item Value Reference Range Interpretation Comments ALANINE AMINOTRANSFERASE 27 See_Comment [A utomated message] (test code = ALANINE The sys tem which AMINOTRANSFERASE) generated this result transmitted ref erence range: <=65. Th e reference range was not used to int erpret this result as normal/abnormal . [place] 493092-06-22 20:25:00 Test Item Value Reference Range Interpretation Comments AST (test code = AST) 17 See_Comment [Auto mated message] The system which ge nerated this result transmit suze reference range : <=37. The reference range was not used to interpr et this result as anselmo l/abnormal. [facility]2022-06-22 20:25:00 Test Item Value Reference Range Interpretation Comments Alk Phos (test code = Alk Phos) 78 39-136 [place] 493092-06-22 20:25:00 Test Item Value Reference Range Interpretation Comments Bili Total (test code = Bili Total) 0.9 0.2-1.3 [facility] CenterFiyjadlXJHRVGMTKP6575-22-69 20:25:00 Test Item Value Reference Range Interpretation Comments Monocytes # (test code 1.0 See_Comment [Aut omated message] The = Monocytes #) system which generated this result tra nsmitted reference range : <=0.8. The reference r peri was not used to int erpret this result as normal/abnormal . [place] 493092-06-22 20:25:00 Test Item Value Reference Range Interpretation Comments AGAP (test code = AGAP) 11.2 10.0-20.0 [place] 493092-06-22 20:25:00 Test Item Value Reference Range Interpretation Comments B/C Ratio (test code = B/C Ratio) 23 1 6-25 [place] 493092-06-22 20:25:00 Test Item Value Reference Range Interpretation Comments Globulin (test code = Globulin) 3.7 2.7-4.2 [place] 493092-06-22 20:25:00 Test Item Value Reference Range Interpretation Comments A/G Ratio (test code = A/G Ratio) 1.2 1 0.7-1.6 [place] [address]-06-22 20:25:00 Test Item Value Reference Range Interpretation Comments eGFR (test code = eGFR) 75 [place] 505542-06-22 20:25:00 Test Item Value Reference Range Interpretation Comments Segs (test code = Segs) 77.6 45.0-75.0 [place] [address]-06-22 20:25:00 Test Item Value Reference Range Interpretation Comments Lymphocytes (test code = Lymphocytes) 14.9 20.0-40.0 [place] [address]-06-22 20:25:00 Test Item Value Reference Range Interpretation Comments Monocytes (test code = Monocytes) 7.0 2.0-12.0 [place] [address]-06-22 20:25:00 Test Item Value Reference Range Interpretation Comments Eosinophils (test code = 0.1 See_Comment [A utomated message] The Eosinophils) system which ge nerated this result tra nsmitted reference range : <=4.0. The reference r peri was not used to int erpret this result as normal/abnormal . [place] [address]-06-22 20:25:00 Test Item Value Reference Range Interpretation Comments Basophils (test code = 0.4 See_Comment [Aut omated message] The Basophils) system which ge nerated this result tra nsmitted reference range : <=1.0. The reference r peri was not used to int erpret this result as normal/abnormal . [place] 505542-06-22 20:25:00 Test Item Value Reference Range Interpretation Comments Basophils # (test code 0.1 See_Comment [Aut omated message] The = Basophils #) system which generated this result tra nsmitted reference range : <=0.2. The reference r peri was not used to int erpret this result as normal/abnormal . [place] 505542-06-22 20:25:00 Test Item Value Reference Range Interpretation Comments Neutrophils # (test code = Neutrophils 11.3 1.5-8.1 #) [place] 505542-06-22 20:25:00 Test Item Value Reference Range Interpretation Comments Lymphocytes # (test code = Lymphocytes 2.2 1.0-5.5 #) [place] 505542-06-22 20:25:00 Test Item Value Reference Range Interpretation Comments Monocytes # (test code 1.0 See_Comment [Aut omated message] The = Monocytes #) system which generated this result tra nsmitted reference range : <=0.8. The reference r peri was not used to int erpret this result as normal/abnormal . [place] 505542-06-22 20:25:00 Test Item Value Reference Range Interpretation Comments Basophils # (test code 0.1 See_Comment [Aut omated message] The = Basophils #) system which generated this result tra nsmitted reference range : <=0.2. The reference r peri was not used to int erpret this result as normal/abnormal . [facility] CenterSknobnyAOLJUQQOBA1856-68-16 20:25:00 Test Item Value Reference Range Interpretation Comments WBC X 10x3 (test code = WBC X 10x3) 14.6 3.7-10.4 [place] 505542-06-22 20:25:00 Test Item Value Reference Range Interpretation Comments RBC X 10x6 (test code = RBC X 10x6) 4.77 4.70-6.10 [place] 505542-06-22 20:25:00 Test Item Value Reference Range Interpretation Comments Hgb (test code = Hgb) 14.6 14.0-18.0 [place] 505542-06-22 20:25:00 Test Item Value Reference Range Interpretation Comments Hct (test code = Hct) 44.7 42.0-54.0 [place] 505542-06-22 20:25:00 Test Item Value Reference Range Interpretation Comments MCV (test code = MCV) 93.6 80.0-94.0 [place] [address]-06-22 20:25:00 Test Item Value Reference Range Interpretation Comments MCH (test code = MCH) 30.7 pg 27.0-31.0 [place] [address]-06-22 20:25:00 Test Item Value Reference Range Interpretation Comments WBC X 10x3 (test code = WBC X 10x3) 14.6 3.7-10.4 [place] 505542-06-22 20:25:00 Test Item Value Reference Range Interpretation Comments MCHC (test code = MCHC) 32.8 32.0-36.0 [place] [address]-06-22 20:25:00 Test Item Value Reference Range Interpretation Comments RDW (test code = RDW) 13.7 11.5-14.5 [place] 505542-06-22 20:25:00 Test Item Value Reference Range Interpretation Comments Platelet (test code = Platelet) 244 133-450 [facility] CenterZoknqexBSPVLKLGUF8243-89-74 20:25:00 Test Item Value Reference Range Interpretation Comments MPV (test code = MPV) 9.1 7.4-10.4 [place] [address]-06-22 20:25:00 Test Item Value Reference Range Interpretation Comments RBC X 10x6 (test code = RBC X 10x6) 4.77 4.70-6.10 [place] 505542-06-22 20:25:00 Test Item Value Reference Range Interpretation Comments Hgb (test code = Hgb) 14.6 14.0-18.0 [place] [address]-06-22 20:25:00 Test Item Value Reference Range Interpretation Comments Hct (test code = Hct) 44.7 42.0-54.0 [place] 505542-06-22 20:25:00 Test Item Value Reference Range Interpretation Comments MCV (test code = MCV) 93.6 80.0-94.0 [place] [address]-06-22 20:25:00 Test Item Value Reference Range Interpretation Comments MCH (test code = MCH) 30.7 pg 27.0-31.0 [place] 505542-06-22 20:25:00 Test Item Value Reference Range Interpretation Comments MCHC (test code = MCHC) 32.8 32.0-36.0 [place] 505542-06-22 20:25:00 Test Item Value Reference Range Interpretation Comments RDW (test code = RDW) 13.7 11.5-14.5 [place] 505542-06-22 20:25:00 Test Item Value Reference Range Interpretation Comments Platelet (test code = Platelet) 244 133-450 [place] 505542-06-22 20:25:00 Test Item Value Reference Range Interpretation Comments MPV (test code = MPV) 9.1 7.4-10.4 [place] 493092-06-22 20:25:00 Test Item Value Reference Range Interpretation Comments Glucose Lvl (test code = Glucose Lvl) 106 70-99 [place] 493092-06-22 20:25:00 Test Item Value Reference Range Interpretation Comments BUN (test code = BUN) 27 - [place] 493092-06-22 20:25:00 Test Item Value Reference Range Interpretation Comments Creatinine Lvl (test code = Creatinine 1.17 0.50-1.40 Lvl) [place] 493092-06-22 20:25:00 Test Item Value Reference Range Interpretation Comments Sodium Lvl (test code = Sodium Lvl) 139 135-145 [place] 493092-06-22 20:25:00 Test Item Value Reference Range Interpretation Comments Potassium Lvl (test code = Potassium 4.2 3.5-5.1 Lvl) [place] 493092-06-22 20:25:00 Test Item Value Reference Range Interpretation Comments Chloride Lvl (test code = Chloride Lvl) 106 95-109 [place] 493092-06-22 20:25:00 Test Item Value Reference Range Interpretation Comments CO2 (test code = CO2) 24-32 [place] 493092-06-22 20:25:00 Test Item Value Reference Range Interpretation Comments Calcium Lvl (test code = Calcium Lvl) 9.7 8.5-10.5 [place] 493092-06-22 20:25:00 Test Item Value Reference Range Interpretation Comments Total Protein (test code = Total 8.1 6.4-8.4 Protein) [facility] [id number] 20:25:00 Test Item Value Reference Range Interpretation Comments Albumin Lvl (test code = Albumin Lvl) 4.4 3.5-5.0 [facility] [id number] 20:25:00 Test Item Value Reference Range Interpretation Comments ALANINE AMINOTRANSFERASE 27 See_Comment [A utomated message] (test code = ALANINE The sys tem which AMINOTRANSFERASE) generated this result transmitted ref erence range: <=65. Th e reference range was not used to int erpret this result as normal/abnormal . [facility] [employer] [id number] 20:25:00 Test Item Value Reference Range Interpretation Comments AST (test code = AST) 17 See_Comment [Auto mated message] The system which ge nerated this result transmit suze reference range : <=37. The reference range was not used to interpr et this result as anselmo l/abnormal. [facility] [employer] [id number] 20:25:00 Test Item Value Reference Range Interpretation Comments Alk Phos (test code = Alk Phos) 78 39-136 [facility] [employer] [id number] 20:25:00 Test Item Value Reference Range Interpretation Comments Bili Total (test code = Bili Total) 0.9 0.2-1.3 [facility] [employer] [id number] 20:25:00 Test Item Value Reference Range Interpretation Comments AGAP (test code = AGAP) 11.2 10.0-20.0 [facility] [employer] [id number] 20:25:00 Test Item Value Reference Range Interpretation Comments B/C Ratio (test code = B/C Ratio) 23 1 6-25 [facility] [id number] 20:25:00 Test Item Value Reference Range Interpretation Comments Globulin (test code = Globulin) 3.7 2.7-4.2 [facility] [id number] 20:25:00 Test Item Value Reference Range Interpretation Comments A/G Ratio (test code = A/G Ratio) 1.2 1 0.7-1.6 [facility] [employer] [id number] 20:25:00 Test Item Value Reference Range Interpretation Comments eGFR (test code = eGFR) 75 [facility]SgxohfeNZZMAWJHJR1240-62-76 20:25:00 Test Item Value Reference Range Interpretation Comments Segs (test code = Segs) 77.6 45.0-75.0 [place] 505542-06-22 20:25:00 Test Item Value Reference Range Interpretation Comments Lymphocytes (test code = Lymphocytes) 14.9 20.0-40.0 [place] 505542-06-22 20:25:00 Test Item Value Reference Range Interpretation Comments Monocytes (test code = Monocytes) 7.0 2.0-12.0 [place] 505542-06-22 20:25:00 Test Item Value Reference Range Interpretation Comments Eosinophils (test code = 0.1 See_Comment [A utomated message] The Eosinophils) system which ge nerated this result tra nsmitted reference range : <=4.0. The reference r peri was not used to int erpret this result as normal/abnormal . [place]05542-06-22 20:25:00 Test Item Value Reference Range Interpretation Comments Basophils (test code = 0.4 See_Comment [Aut omated message] The Basophils) system which ge nerated this result tra nsmitted reference range : <=1.0. The reference r peri was not used to int erpret this result as normal/abnormal . [facility] CenterJfjfyhmGQVLZIOUBZ9992-85-93 20:25:00 Test Item Value Reference Range Interpretation Comments Neutrophils # (test code = Neutrophils 11.3 1.5-8.1 #) [place] 505542-06-22 20:25:00 Test Item Value Reference Range Interpretation Comments Lymphocytes # (test code = Lymphocytes 2.2 1.0-5.5 #) [place] 505542-06-22 20:25:00 Test Item Value Reference Range Interpretation Comments Monocytes # (test code 1.0 See_Comment [Aut omated message] The = Monocytes #) system which generated this result tra nsmitted reference range : <=0.8. The reference r peri was not used to int erpret this result as normal/abnormal . [place]05542-06-22 20:25:00 Test Item Value Reference Range Interpretation Comments Basophils # (test code 0.1 See_Comment [Aut omated message] The = Basophils #) system which generated this result tra nsmitted reference range : <=0.2. The reference r peri was not used to int erpret this result as normal/abnormal . [facility] CenterPuvqwkfFOZQEIVIHG0062-34-41 20:25:00 Test Item Value Reference Range Interpretation Comments WBC X 10x3 (test code = WBC X 10x3) 14.6 3.7-10.4 [facility] CenterVsnpvfxSSLMYGVIIK4705-85-61 20:25:00 Test Item Value Reference Range Interpretation Comments RBC X 10x6 (test code = RBC X 10x6) 4.77 4.70-6.10 [facility] CenterQtswxevOBCZJTKEXQ5407-29-20 20:25:00 Test Item Value Reference Range Interpretation Comments Hgb (test code = Hgb) 14.6 14.0-18.0 [facility] CenterNvndzfhQJTLCFOGPW8112-13-83 20:25:00 Test Item Value Reference Range Interpretation Comments Hct (test code = Hct) 44.7 42.0-54.0 [facility] CenterGhkeryiUWOIMSVCWI6119-96-61 20:25:00 Test Item Value Reference Range Interpretation Comments MCV (test code = MCV) 93.6 80.0-94.0 [facility] CenterJtwuvmlMJWDFZLJTJ9524-69-20 20:25:00 Test Item Value Reference Range Interpretation Comments MCH (test code = MCH) 30.7 pg 27.0-31.0 [facility] CenterTpxwtrvICDLVTIWRT1715-59-22 20:25:00 Test Item Value Reference Range Interpretation Comments MCHC (test code = MCHC) 32.8 32.0-36.0 [facility] C[id number] 20:25:00 Test Item Value Reference Range Interpretation Comments RDW (test code = RDW) 13.7 11.5-14.5 [facility] CenterAxpxfzfTIPXTQPISB6632-81-63 20:25:00 Test Item Value Reference Range Interpretation Comments Platelet (test code = Platelet) 244 133-450 [facility] CenterVurrhuuQIGMZTFXPV2417-75-80 20:25:00 Test Item Value Reference Range Interpretation Comments MPV (test code = MPV) 9.1 7.4-10.4 [facility]2022-06-22 20:25:00 Test Item Value Reference Range Interpretation Comments Glucose Lvl (test code = Glucose Lvl) 106 70-99 [place] 493092-06-22 20:25:00 Test Item Value Reference Range Interpretation Comments BUN (test code = BUN) 27 7-22 [place] 493092-06-22 20:25:00 Test Item Value Reference Range Interpretation Comments Creatinine Lvl (test code = Creatinine 1.17 0.50-1.40 Lvl) [place] 493092-06-22 20:25:00 Test Item Value Reference Range Interpretation Comments Sodium Lvl (test code = Sodium Lvl) 139 135-145 [place] 493092-06-22 20:25:00 Test Item Value Reference Range Interpretation Comments Potassium Lvl (test code = Potassium 4.2 3.5-5.1 Lvl) [place] 493092-06-22 20:25:00 Test Item Value Reference Range Interpretation Comments Chloride Lvl (test code = Chloride Lvl) 106 95-109 [place] 493092-06-22 20:25:00 Test Item Value Reference Range Interpretation Comments CO2 (test code = CO2) 26 24-32 [place] 493092-06-22 20:25:00 Test Item Value Reference Range Interpretation Comments Calcium Lvl (test code = Calcium Lvl) 9.7 8.5-10.5 [place] 493092-06-22 20:25:00 Test Item Value Reference Range Interpretation Comments Total Protein (test code = Total 8.1 6.4-8.4 Protein) [place] 493092-06-22 20:25:00 Test Item Value Reference Range Interpretation Comments Albumin Lvl (test code = Albumin Lvl) 4.4 3.5-5.0 [place] 493092-06-22 20:25:00 Test Item Value Reference Range Interpretation Comments ALANINE AMINOTRANSFERASE 27 See_Comment [A utomated message] (test code = ALANINE The sys tem which AMINOTRANSFERASE) generated this result transmitted ref erence range: <=65. Th e reference range was not used to int erpret this result as normal/abnormal . [place] 493092-06-22 20:25:00 Test Item Value Reference Range Interpretation Comments AST (test code = AST) 17 See_Comment [Auto mated message] The system which ge nerated this result transmit suze reference range : <=37. The reference range was not used to interpr et this result as anselmo l/abnormal. [facility]2022-06-22 20:25:00 Test Item Value Reference Range Interpretation Comments Alk Phos (test code = Alk Phos) 78 39-136 [place] 493092-06-22 20:25:00 Test Item Value Reference Range Interpretation Comments Bili Total (test code = Bili Total) 0.9 0.2-1.3 [facility]2022-06-22 20:25:00 Test Item Value Reference Range Interpretation Comments AGAP (test code = AGAP) 11.2 10.0-20.0 [place] 493092-06-22 20:25:00 Test Item Value Reference Range Interpretation Comments B/C Ratio (test code = B/C Ratio) 23 1 6-25 [place] 493092-06-22 20:25:00 Test Item Value Reference Range Interpretation Comments Globulin (test code = Globulin) 3.7 2.7-4.2 [place] 493092-06-22 20:25:00 Test Item Value Reference Range Interpretation Comments A/G Ratio (test code = A/G Ratio) 1.2 1 0.7-1.6 [place] 493092-06-22 20:25:00 Test Item Value Reference Range Interpretation Comments eGFR (test code = eGFR) 75 [facility] CenterDljhvssMUUIVUAUFA1548-04-63 20:25:00 Test Item Value Reference Range Interpretation Comments Segs (test code = Segs) 77.6 45.0-75.0 [facility] CenterUqqozpjIDDTECZZUN2918-28-94 20:25:00 Test Item Value Reference Range Interpretation Comments Lymphocytes (test code = Lymphocytes) 14.9 20.0-40.0 [place] 505542-06-22 20:25:00 Test Item Value Reference Range Interpretation Comments Monocytes (test code = Monocytes) 7.0 2.0-12.0 [place] 505542-06-22 20:25:00 Test Item Value Reference Range Interpretation Comments Eosinophils (test code = 0.1 See_Comment [A utomated message] The Eosinophils) system which ge nerated this result tra nsmitted reference range : <=4.0. The reference r peri was not used to int erpret this result as normal/abnormal . [place]05542-06-22 20:25:00 Test Item Value Reference Range Interpretation Comments Basophils (test code = 0.4 See_Comment [Aut omated message] The Basophils) system which ge nerated this result tra nsmitted reference range : <=1.0. The reference r peri was not used to int erpret this result as normal/abnormal . [facility] CenterPmjyzatDIZQNIBMLZ6118-50-26 20:25:00 Test Item Value Reference Range Interpretation Comments Neutrophils # (test code = Neutrophils 11.3 1.5-8.1 #) [facility] CenterUcrmbpkWOQWMNUEDQ8506-35-65 20:25:00 Test Item Value Reference Range Interpretation Comments Lymphocytes # (test code = Lymphocytes 2.2 1.0-5.5 #) [facility] CenterVgnmyecEZDCQIJTZB1408-23-11 20:25:00 Test Item Value Reference Range Interpretation Comments Monocytes # (test code 1.0 See_Comment [Aut omated message] The = Monocytes #) system which generated this result tra nsmitted reference range : <=0.8. The reference r peri was not used to int erpret this result as normal/abnormal . [facility] CenterJcyfllzEJFTZRRKYC5536-65-79 20:25:00 Test Item Value Reference Range Interpretation Comments Basophils # (test code 0.1 See_Comment [Aut omated message] The = Basophils #) system which generated this result tra nsmitted reference range : <=0.2. The reference r peri was not used to int erpret this result as normal/abnormal . [facility] CenterYxgxpiqEMPLAYSEVY6352-51-29 20:25:00 Test Item Value Reference Range Interpretation Comments WBC X 10x3 (test code = WBC X 10x3) 14.6 3.7-10.4 [place]05542-06-22 20:25:00 Test Item Value Reference Range Interpretation Comments RBC X 10x6 (test code = RBC X 10x6) 4.77 4.70-6.10 [place] 505542-06-22 20:25:00 Test Item Value Reference Range Interpretation Comments Hgb (test code = Hgb) 14.6 14.0-18.0 [place] 505542-06-22 20:25:00 Test Item Value Reference Range Interpretation Comments Hct (test code = Hct) 44.7 42.0-54.0 [place] [address]-06-22 20:25:00 Test Item Value Reference Range Interpretation Comments MCV (test code = MCV) 93.6 80.0-94.0 [place] [address]-06-22 20:25:00 Test Item Value Reference Range Interpretation Comments MCH (test code = MCH) 30.7 pg 27.0-31.0 [place] [address]-06-22 20:25:00 Test Item Value Reference Range Interpretation Comments MCHC (test code = MCHC) 32.8 32.0-36.0 [place] [address]-06-22 20:25:00 Test Item Value Reference Range Interpretation Comments RDW (test code = RDW) 13.7 11.5-14.5 [place] [address]-06-22 20:25:00 Test Item Value Reference Range Interpretation Comments Platelet (test code = Platelet) 244 133-450 [place] 505542-06-22 20:25:00 Test Item Value Reference Range Interpretation Comments MPV (test code = MPV) 9.1 7.4-10.4 [place] 493092-06-22 20:25:00 Test Item Value Reference Range Interpretation Comments Glucose Lvl (test code = Glucose Lvl) 106 70-99 [place] 493092-06-22 20:25:00 Test Item Value Reference Range Interpretation Comments BUN (test code = BUN) 27 7-22 [place] 493092-06-22 20:25:00 Test Item Value Reference Range Interpretation Comments Creatinine Lvl (test code = Creatinine 1.17 0.50-1.40 Lvl) [place] 493092-06-22 20:25:00 Test Item Value Reference Range Interpretation Comments Sodium Lvl (test code = Sodium Lvl) 139 135-145 [place] 493092-06-22 20:25:00 Test Item Value Reference Range Interpretation Comments Potassium Lvl (test code = Potassium 4.2 3.5-5.1 Lvl) [place] 493092-06-22 20:25:00 Test Item Value Reference Range Interpretation Comments Chloride Lvl (test code = Chloride Lvl) 106 95-109 [place] 493092-06-22 20:25:00 Test Item Value Reference Range Interpretation Comments CO2 (test code = CO2) 26 24-32 [facility] [id number] 20:25:00 Test Item Value Reference Range Interpretation Comments Calcium Lvl (test code = Calcium Lvl) 9.7 8.5-10.5 [facility] CenterdoughFIRSTHEALTHQOEAJ6260-74-07 20:25:00 Test Item Value Reference Range Interpretation Comments Total Protein (test code = Total 8.1 6.4-8.4 Protein) [facility]2022-06-22 20:25:00 Test Item Value Reference Range Interpretation Comments Albumin Lvl (test code = Albumin Lvl) 4.4 3.5-5.0 [facility] [id number] 20:25:00 Test Item Value Reference Range Interpretation Comments ALANINE AMINOTRANSFERASE 27 See_Comment [A utomated message] (test code = ALANINE The sys tem which AMINOTRANSFERASE) generated this result transmitted ref erence range: <=65. Th e reference range was not used to int erpret this result as normal/abnormal . [facility] [id number] 20:25:00 Test Item Value Reference Range Interpretation Comments AST (test code = AST) 17 See_Comment [Auto mated message] The system which ge nerated this result transmit suze reference range : <=37. The reference range was not used to interpr et this result as anselmo l/abnormal. [facility] [id number] 20:25:00 Test Item Value Reference Range Interpretation Comments Alk Phos (test code = Alk Phos) 78 39-136 [facility] [id number] 20:25:00 Test Item Value Reference Range Interpretation Comments Bili Total (test code = Bili Total) 0.9 0.2-1.3 [facility] [id number] 20:25:00 Test Item Value Reference Range Interpretation Comments AGAP (test code = AGAP) 11.2 10.0-20.0 [facility] [id number] 20:25:00 Test Item Value Reference Range Interpretation Comments B/C Ratio (test code = B/C Ratio) 23 1 6-25 [facility] [id number] 20:25:00 Test Item Value Reference Range Interpretation Comments Globulin (test code = Globulin) 3.7 2.7-4.2 [place] 493092-06-22 20:25:00 Test Item Value Reference Range Interpretation Comments A/G Ratio (test code = A/G Ratio) 1.2 1 0.7-1.6 [place] 493092-06-22 20:25:00 Test Item Value Reference Range Interpretation Comments eGFR (test code = eGFR) 75 [place]055[place]-06-22 20:25:00 Test Item Value Reference Range Interpretation Comments Segs (test code = Segs) 77.6 45.0-75.0 [place] [address]-06-22 20:25:00 Test Item Value Reference Range Interpretation Comments Lymphocytes (test code = Lymphocytes) 14.9 20.0-40.0 [place] [address]-06-22 20:25:00 Test Item Value Reference Range Interpretation Comments Monocytes (test code = Monocytes) 7.0 2.0-12.0 [place] [address]-06-22 20:25:00 Test Item Value Reference Range Interpretation Comments Eosinophils (test code = 0.1 See_Comment [A utomated message] The Eosinophils) system which ge nerated this result tra nsmitted reference range : <=4.0. The reference r peri was not used to int erpret this result as normal/abnormal . [place] [address]-06-22 20:25:00 Test Item Value Reference Range Interpretation Comments Basophils (test code = 0.4 See_Comment [Aut omated message] The Basophils) system which ge nerated this result tra nsmitted reference range : <=1.0. The reference r peri was not used to int erpret this result as normal/abnormal . [place]055[place]-06-22 20:25:00 Test Item Value Reference Range Interpretation Comments Neutrophils # (test code = Neutrophils 11.3 1.5-8.1 #) [place] [address]-06-22 20:25:00 Test Item Value Reference Range Interpretation Comments Lymphocytes # (test code = Lymphocytes 2.2 1.0-5.5 #) [place] [address]-06-22 20:25:00 Test Item Value Reference Range Interpretation Comments Monocytes # (test code 1.0 See_Comment [Aut omated message] The = Monocytes #) system which generated this result tra nsmitted reference range : <=0.8. The reference r peri was not used to int erpret this result as normal/abnormal . [facility] CenterXeufauqOLNWUZNVEC6066-21-75 20:25:00 Test Item Value Reference Range Interpretation Comments Basophils # (test code 0.1 See_Comment [Aut omated message] The = Basophils #) system which generated this result tra nsmitted reference range : <=0.2. The reference r peri was not used to int erpret this result as normal/abnormal . [facility] CenterKzeztluWABNBJRWEF8209-92-63 20:25:00 Test Item Value Reference Range Interpretation Comments WBC X 10x3 (test code = WBC X 10x3) 14.6 3.7-10.4 [facility] CenterTzsrnksDOGFSYCISM0981-16-96 20:25:00 Test Item Value Reference Range Interpretation Comments RBC X 10x6 (test code = RBC X 10x6) 4.77 4.70-6.10 [facility] CenterExpxdhjUIYVMKLPYQ3079-71-97 20:25:00 Test Item Value Reference Range Interpretation Comments Hgb (test code = Hgb) 14.6 14.0-18.0 [place]055[place]-06-22 20:25:00 Test Item Value Reference Range Interpretation Comments Hct (test code = Hct) 44.7 42.0-54.0 [facility] CenterBlkqkvyMQIMZHJBFU9360-74-82 20:25:00 Test Item Value Reference Range Interpretation Comments MCV (test code = MCV) 93.6 80.0-94.0 [place] 505542-06-22 20:25:00 Test Item Value Reference Range Interpretation Comments MCH (test code = MCH) 30.7 pg 27.0-31.0 [place] 505542-06-22 20:25:00 Test Item Value Reference Range Interpretation Comments MCHC (test code = MCHC) 32.8 32.0-36.0 [place] 505542-06-22 20:25:00 Test Item Value Reference Range Interpretation Comments RDW (test code = RDW) 13.7 11.5-14.5 [place] 5055[place]-06-22 20:25:00 Test Item Value Reference Range Interpretation Comments Platelet (test code = Platelet) 244 133-450 [place] 505542-06-22 20:25:00 Test Item Value Reference Range Interpretation Comments MPV (test code = MPV) 9.1 7.4-10.4 [place] 493092-06-22 20:25:00 Test Item Value Reference Range Interpretation Comments Glucose Lvl (test code = Glucose Lvl) 106 70-99 [place] 493092-06-22 20:25:00 Test Item Value Reference Range Interpretation Comments BUN (test code = BUN) 27 7-22 [place] 493092-06-22 20:25:00 Test Item Value Reference Range Interpretation Comments Creatinine Lvl (test code = Creatinine 1.17 0.50-1.40 Lvl) [place] 493092-06-22 20:25:00 Test Item Value Reference Range Interpretation Comments Sodium Lvl (test code = Sodium Lvl) 139 135-145 [place] 493092-06-22 20:25:00 Test Item Value Reference Range Interpretation Comments Potassium Lvl (test code = Potassium 4.2 3.5-5.1 Lvl) [place] 493092-06-22 20:25:00 Test Item Value Reference Range Interpretation Comments Chloride Lvl (test code = Chloride Lvl) 106 95-109 [place] 493092-06-22 20:25:00 Test Item Value Reference Range Interpretation Comments CO2 (test code = CO2) 26 24-32 [place] 493092-06-22 20:25:00 Test Item Value Reference Range Interpretation Comments Calcium Lvl (test code = Calcium Lvl) 9.7 8.5-10.5 [place] 493092-06-22 20:25:00 Test Item Value Reference Range Interpretation Comments Total Protein (test code = Total 8.1 6.4-8.4 Protein) [place] 493092-06-22 20:25:00 Test Item Value Reference Range Interpretation Comments Albumin Lvl (test code = Albumin Lvl) 4.4 3.5-5.0 [place] 493092-06-22 20:25:00 Test Item Value Reference Range Interpretation Comments ALANINE AMINOTRANSFERASE 27 See_Comment [A utomated message] (test code = ALANINE The sys tem which AMINOTRANSFERASE) generated this result transmitted ref erence range: <=65. Th e reference range was not used to int erpret this result as normal/abnormal . [facility] [employer] [id number] 20:25:00 Test Item Value Reference Range Interpretation Comments AST (test code = AST) 17 See_Comment [Auto mated message] The system which ge nerated this result transmit suze reference range : <=37. The reference range was not used to interpr et this result as anselmo l/abnormal. [facility] [employer] [id number] 20:25:00 Test Item Value Reference Range Interpretation Comments Alk Phos (test code = Alk Phos) 78 39-136 [facility] [employer] [id number] 20:25:00 Test Item Value Reference Range Interpretation Comments Bili Total (test code = Bili Total) 0.9 0.2-1.3 [facility] [employer] [id number] 20:25:00 Test Item Value Reference Range Interpretation Comments AGAP (test code = AGAP) 11.2 10.0-20.0 [facility] RNA [Presence] in Respiratory specimen by CAMERON with probe [id number] 09:13:38 Test Item Value Reference Range Interpretation Comments SARS-CoV-2 (COVID-19) RNA Not detected [Presence] in Respiratory specimen by CAMERON with probe detection (test code = 81558-2) Whether patient is employed in a Unknown healthcare setting (test code = 63480-3) Whether the patient has symptoms Unknown related to condition of interest (test code = 73124-4) Whether the patient was Unknown hospitalized for condition of interest (test code = 80628-5) Whether the patient was admitted Unknown to intensive care unit (ICU) for condition of interest (test code = 19718-9) Whether patient resides in a Unknown congregate care setting (test code = 58195-5) status (test code = Unknown 93086-9) Date and time of symptom onset Unknown (test code = 62796-5) [facility]00 Test Item Value Reference Range Interpretation [...] CHARGE TO THE P ATIENT. BASIC METABOLIC [id number] 07:12:00 Test Item Value Reference Range Interpretation [...] Estimated GFR b y FILTRATION RATE using Modif ed MDRD (test code = GFR) formula.[facility] kidney disease is defined as eith er kidney damageor GFR <60 mL/min/1.73 m2 for >3 months. [Automated mess age] The system [employer] generated this result transmitted ref erence range: >=60. Th e reference range was not used to int erpret this result as normal/abnormal . CREATININE (test 0.90 mg/dL 0.7-1.3 N code = CREAT) BUN/CREATININE RATIO 24.5 10-20 H (test code = BUN/CREA) CALCIUM (test code = 9.3 mg/dL 8.5-10.1 N CA) HEPATIC FUNCTION [id number] 07:12:00 Test Item Value Reference Range Interpretation [...] range due ALKP) to change in reagent. [id number] 07:12:00 Test Item Value Reference Range Interpretation Comments LIPASE (test code = LIP) 32 U/L 12-57 N CBC W/O [id number] 07:03:00 Test Item Value Reference Range Interpretation [...] N = MPV) XR HIP COMP 2-3 [id number] 16:21:23 [facility] ([facility]/[place])Name: EWA TREJO : 1975 Sex: MProcedure: XR HIP COMP 2-3 viewsOrder Date: 09/30/2021 3:31 PMOrdering Provider: SHIELA KINGSTONlinsandor Indication: [id number]: Pain in right hip jointComparison: CT pelvis [...] electronically signed by Dr Octavio Hopson MD :16 PMDictated By: OCTAVIO HOPSON.Date: 09/30/2021 16:16STLMLXR CHEST 2 PA [id number] 16:18:39 [facility] ([facility]/)Name: JUNAID TREJON DORITA : 1975 Sex: MProcedure: XR CHEST 2 PA LATERALOrder Date: 09/30/2021 3:32 PMOrdering Provider: SHIELA Morelos Indication: [id number]: Post-acute covid-19Comparison: NoneFindings:Cardiac size is normal.Pulmonary vasculature is normal.Mediastinal contour is normal.Aortic contour is normal.There are no infiltrates or effusions.There is no mass or pneumothorax.There is no evidence of active tuberculosis.There is no skeletal abnormality.Impression: Negative PA and lateral views of the chest.This final report was electronically signed by Dr Octavio Hopson MD :12 PMDictated By: OCTAVIO HOPSONDate: 09/30/2021 16:12STLMLSTAT LAB CHEM [id number] 13:54:00 Test Item Value Reference Range Interpretation [...] code = CO2) 23.1 mmol/l 24.0-29.0 L [facility] WITHOUT [id number] 13:53:00 Test Item Value Reference Range Interpretation Comments Color (test code = Yellow Lt. Yellow A UCOLR) Clarity (test code = Clear UCLAR) Glucose (test code = Negative Negative N UGLUC) Bilirubin (test code = Negative Negative N UBILI) Ketones (test code = Negative Negative N UKET) Specific [place] (test >=1.030 1.005-1.030 A code = USPGR) Blood (test code = Moderate Negative A UBLD) PH (test code = UPH) 6.0 4.5-8.0 A Protein (test code = Negative Negative N UPROT) Urobilinogen (test code 0.2 See_Comment N [Au tomated message] = U UROB) The system [employer] generated this result transmitted ref erence range: 0.2. The reference range was not used to int erpret this result as normal/abnormal . Nitrite (test code = Negative Negative N UNITR) Leukocyte Esterase Negative Negative N (test code = ULEUK) STLSTAT LAB CBC WITH AUTO [id number] 13:53:00 Test Item Value Reference Range Interpretation [...] code = IG%) 0.0 % 0.0-0.4 STLMLCULTURE, [id number] 07:56:00Specimen: Urine SpecimensCollected: 08/19/2021 07:43 Status: Final Last Updated: 08/21/2021 07:56 CULTURE (Final) (Final) No Growth After 48 HoursSTLMLCT ABD/ PELVIS W/O CON (RENAL STONE) 2021-08-19 09:41:00 [facility] ([facility]/[place])Name: EWA TREJO : 1975 Sex: MProcedure: CT [...] Octavio Hopson MD :35 AMDictated By: OCTAVIO HOPSONDate: 08/19/2021 09:35STLMLURINALYSIS WITH [id number] 08:18:00 Test Item Value Reference Range Interpretation Comments Color (test code = Light-Yellow UCOLR) Clarity (test code = Clear UCLAR) Glucose (test code = NEGATIVE NEGATIVE N UGLUC) Bilirubin (test code NEGATIVE NEGATIVE N = UBILI) Ketones (test code = NEGATIVE NEGATIVE N UKET) Specific [place] 1.015 1.005-1.030 A (test code = USPGR) Blood (test code = Small NEGATIVE A UBLD) PH (test code = UPH) 7.5 4.5-8.0 A Protein (test code = NEGATIVE NEGATIVE N UPROT) Urobilinogen (test 0.2 See_Comment N [Automat ed message] code = U UROB) The system [employer] generated this result transmit suze reference range [...] A (test code = SQEP) STLMLURINALYSIS WITH [id number] 17:24:00 Test Item Value Reference Range Interpretation Comments Color (test code = Colorless UCOLR) Clarity (test code = Clear UCLAR) Glucose (test code = NEGATIVE NEGATIVE N UGLUC) Bilirubin (test code = NEGATIVE NEGATIVE N UBILI) Ketones (test code = NEGATIVE NEGATIVE N UKET) Specific [place] (test <1.005 1.005-1.030 A code = USPGR) Blood (test code = TRACE NEGATIVE A UBLD) PH (test code = UPH) 6.0 4.5-8.0 A Protein (test code = NEGATIVE NEGATIVE N UPROT) Urobilinogen (test code 0.2 See_Comment N [Au tomated message] = U UROB) The system [employer] generated this result transmitted ref erence range: [...] code = SQEP) STLMLSTAT LAB URINALYSIS WITHOUT [id number] 15:43:00 Test Item Value Reference Range Interpretation Comments Color (test code = Yellow Lt. Yellow A UCOLR) Clarity (test code = Clear UCLAR) Glucose (test code = Negative Negative N UGLUC) Bilirubin (test code = Negative Negative N UBILI) Ketones (test code = Negative Negative N UKET) Specific [place] (test <=1.005 1.005-1.030 A code = USPGR) Blood (test code = Small Negative A UBLD) PH (test code = UPH) 6.0 4.5-8.0 A Protein (test code = Negative Negative N UPROT) Urobilinogen (test code 0.2 See_Comment N [Au tomated message] = U UROB) The system [employer] generated this result transmitted ref erence range: 0.2. The reference range was not used to int erpret this result as normal/abnormal . Nitrite (test code = Negative Negative N UNITR) Leukocyte Esterase Negative Negative N (test code = ULEUK) [id number] 20:31:00 Test Item Value Reference Range Interpretation Comments LIPASE (test code = LIP) 46 U/L 12-57 N COVID 19 INHOUSE [id number] 17:33:00 Test Item Value Reference Range Interpretation Comments COVID 19 INHOUSE AG (test code = NEGATIVE NEGATIVE AJMOC19RBCH) BASIC METABOLIC [id number] 17:18:00 Test Item Value Reference Range Interpretation [...] Modifi ed MDRD (test code = GFR) formula.[facility] kidney disease is defined as eith er kidney damageor GFR <60 mL/min/1.73 m2 for >3 months. [Automated mess age] The system [employer] generated this result transmitted ref erence range: >=60. Th e reference range was not used to int erpret this result as normal/abnormal . CREATININE (test 0.80 mg/dL 0.7-1.3 N code = CREAT) BUN/CREATININE RATIO 15.9 10-20 N (test code = BUN/CREA) CALCIUM (test code = 8.9 mg/dL 8.5-10.1 N CA) HEPATIC FUNCTION [id number] 17:18:00 Test Item Value Reference Range Interpretation [...] range due ALKP) to change in reagent. [id number] 17:18:00 Test Item Value Reference Range Interpretation Comments ACETAMINOPHEN (test code = ACET) < 0.2 mg/dL 1.0-3.0 L [id number] 17:18:00 Test Item Value Reference Range Interpretation Comments SALICYLATE (test code = SANTA) < 3.0 mg/dL 2.8-20.0 N [id number] 17:18:00 Test Item Value Reference Range Interpretation Comments ALCOHOL (test code = 7 mg/dL 0.0-3.0 H ------- INTERPRET ALC) BRANDY DATA NOTE: POSITIVE SCREEN ING RESULTS SHOULD BE CONSI DERED PRESUMPTIVE.WHE N COLLECTED FOR MEDICAL PUR POSES ONLY. SPECIMEN WILL N OTBE COLLECTED [facility].IF A CO NFIRMATION OF POSITIVE RES ULTS IS DESIRED, ACONFI RMATION TEST MUST BE RE QUESTED BY THE PHYSICIAN A T ANADDITIONAL ARGE TO THE PATIENT. CBC W/O [id number] 17:04:00 Test Item Value Reference Range Interpretation [...] N = MPV) CT Abdomen Pelvis Wo [id number] 13:46:45EXAMINATION: CT ABDOMEN PELVIS WO CONTRAST CLINICAL [...] acute abnormality within the confines of nonenhanced study.[id number] 1 [id number] 13:00:44EXAMINATION: XR CHEST 1 PORTABLE CLINICAL HISTORY: SOB COMPARISON: November 21, 2020 chest IMPRESSION: Unremarkable single view chest The lungs are clear. The heart is not enlarged. No acute bony abnormality. 6OM1RAD_PS02Hm Interface, Radiology Results Incoming - 01/10/2021 8:03 AM CDT EXAMINATION: XR CHEST 1 VW PORTABLECLINICAL HISTORY: SOBCOMPARISON: November 21, 2020 chestIMPRESSION:Unremarkable single view chestThe lungs are clear.The heart is not enlarged.No acute bony abnormality.6OM1RAD_PS02[facility]EC ED Preliminary Interpretation - Not an [id number] 12:11:30SolisCasey MD 01/10/2021 11:25 AMECG ED Preliminary Interpretation - Not an OrderPerformed by: Casey Danielson MDAuthorized by: Casey Sen MD ECG reviewed by ED Physician in the absence of a vascular physician: yes Interpretation: Interpretation: normal Rate: ECG rate: 83 ECG rate assessment: normal Rhythm: Rhythm: sinus rhythm Ectopy: Ectopy: none QRS: QRS axis: Normal QRS intervals: NormalCo nduction: Conduction: normal ST segments: ST segments: NormalT waves: T waves: flattening Flattening: AVLBASIC METABOLIC [id number] 01:51:00 Test Item Value Reference Range Interpretation [...] Estimated GFR b y FILTRATION RATE using [facility] ed MDRD (test code = GFR) formula.[facility] kidney disease is defined as eith er kidney damageor GFR <60 mL/min/1.73 m2 for >3 months. [Automated mess age] The system [employer] generated this result transmitted ref erence range: >=60. Th e reference range was not used to int erpret this result as normal/abnormal . CREATININE (test 0.90 mg/dL 0.7-1.3 N code = CREAT) BUN/CREATININE RATIO 14.6 10-20 N (test code = BUN/CREA) CALCIUM (test code = 8.4 mg/dL 8.5-10.1 L CA) CBC W/AUTO [id number] 01:18:00 Test Item Value Reference Range Interpretation [...] MANUAL DIFF REQUIRED (test code NO = IFF) - XR CHEST 1 [id number] 22:23:00 [facility] 1975 Sex: M FAX: Martin Mckeon MD [phone] [place]: [address] St: REG Name: EWA TREJO [facility] : 1975 Age/S: 45/M [address] Unit #: [id number] Loc: [place], [place] [address] Phys: Martin Mckeon MD Acct:[id number] Dis Date: Status: REG ER PHONE #: [phone] Exam Date: 01/04/20217 FAX #: [phone] Reason: concern for pna EXAMS: CPT CODE: [id number] XR CHEST 1 V 47883 EXAM: - XR CHEST 1 V COMPARISON: None LOCATION: H57 HISTORY: 45 years-old Male with concern for [...] M.D. CC: Martin Mckeon MD Technologist: NICOLASA ALDRIDGE Trnnmrd Date/Time/By: 01/04/2021 (2222) : By: JosueMKW1 Orig Print D/T: S: 01/04/2021 (2225) PAGE 1 Signed ReportECG 12 [id number] 17:57:20 Test Item Value Reference Range Interpretation Comments Ventricular rate (test code = 253) Atrial rate (test code = 255) VT interval (test code = 266) QRSD interval [...] of 23-DEC-2020 23:57,-No significant change was found- [facility] HospitalComplete Blood Count Auto [id number] 11:22:00 Test Item Value Reference Range Interpretation [...] code = NRBCP) 0 % Comprehensive Metabolic [id number] 11:22:00 Test Item Value Reference Range Interpretation [...] code = EGFRAA) Estimated GFR (Non Afr Senha > 60 mL/min/1.73m2 (test code = EGFRNAA) [...] 84 U/L 46-116 N = ALP) Ethanol [id number] 11:22:00 Test Item Value Reference Range Interpretation Comments Ethanol (test code = ETOH) < 3 mg/dL Coronavirus PCR, COVID19 [id number] 11:22:00 Test Item Value Reference Range Interpretation Comments Coronavirus PCR, For use under Emergency COVID19 Rapid (test Use Authorization (EUA) code = SARSCOV2) only. Coronavirus PCR, Reference Range: COVID19 Rapid (test Negative code = VAKXSIN19.1) SARS-CoV-2 PCR Result: Negative by PCR (test code = SARS-CoV-2 PCR Result:) COVID-19 Status: AsymptomaticXR Chest 2 [id number] 19:03:13Examination: XR CHEST 2 VW Clinical History: cp Comparison: 11/19/2020. Technique: Frontal and lateral views of the chest were obtained. Findings:Lungs and pleural surfaces are clear. Cardiomediastinal silhouette and pulmonary vascularity are within normal limits. Bones are intact. Impression: No active cardiopulmonary disease identified. [facility]-TMHNXY2 Interface, Radiology Results 11/21/2020 2:06 PM CDT Examination: XR CHEST 2 VWClinical History: cpComparison: 11/19/2020.Technique: Frontal and lateral views of the chest were obta ined.Findings:Lungs and pleural surfaces are clear. Cardiomediastinal silhouette and pulmonary vascularity are within normal limits. Bones are intact.Impression:No active cardiopulmonary disease identified.[facility]-TMHNXY2 [facility] HospitalDrug Screen,[id number] 05:00:00 Test Item Value Reference Range Interpretation [...] code = UPROP) Complete Blood Count Auto [id number] 05:00:00 Test Item Value Reference Range Interpretation [...] code = NRBCP) 0 % Comprehensive Metabolic [id number] 05:00:00 Test Item Value Reference Range Interpretation [...] 78 U/L 46-116 N = ALP) Troponin [id number] 05:00:00 Test Item Value Reference Range Interpretation [...] in serialmeasureme nts. POCT BMP POC docked [id number] 16:14:00 Test Item Value Reference Range Interpretation Comments Sodium POC (test code = 142 mmol/L 136-145 93654004) Potassium POC (test code 4.1 mmol/L 3.5-5.1 = 91532445) Chloride POC (test code 105 mmol/L 98-107 = 99805132) TCO2 POC (test code = 30 mmol/L 21-32 Physic lori Notified 17551367) Urea Nitrogen POC (test 20 mg/dL 7-18 H code = 04916411) Glucose POC (test code = 83 mg/dL 74-106 42085950) Hemoglobin POC (test 15.3 g/dL 12-16 code = 54139510) Hematocrit POC (test 45.0 % 37.0-47.0 code = 28331460) Lab Interpretation (test Abnormal code = 64421-5) [facility] CREATININE POC docked [id number] 16:14:00 Test Item Value Reference Range Interpretation Comments Creatinine POC (test 1.0 mg/dL 0.6-1.3 Physici an Notified code = 93169869) eGFR If non- Am >90 See_Comment [Aut omated message] (test code = 17969903) The s [employer] which generated this result transmit suze reference range : >=90 mL/min/1.7 3 m2. The reference r peri was not used to interpret this result as normal/abnormal . Lab Interpretation (test Normal code = 81230-5) [facility] BMP POC docked [id number] 16:14:00 Test Item Value Reference Range Interpretation Comments Sodium POC (test code = 142 mmol/L 136-145 22094483) Potassium POC (test code 4.1 mmol/L 3.5-5.1 = 16540377) Chloride POC (test code 105 mmol/L 98-107 = 18019087) TCO2 POC (test code = 30 mmol/L 21-32 Physic lori Notified 76611261) Urea Nitrogen POC (test 20 mg/dL 7-18 H code = 14358865) Glucose POC (test code = 83 mg/dL 74-106 64879668) Hemoglobin POC (test 15.3 g/dL 12-16 code = 18424859) Hematocrit POC (test 45.0 % 37.0-47.0 code = 48817057) Lab Interpretation (test Abnormal code = 19559-7) [facility] CREATININE POC docked [id number] 16:14:00 Test Item Value Reference Range Interpretation Comments Creatinine POC (test 1.0 mg/dL 0.6-1.3 Physici an Notified code = 43743622) eGFR If non- Am >90 See_Comment [Aut omated message] (test code = 87891202) The s [employer] which generated this result transmit suze reference range : >=90 mL/min/1.7 3 m2. The reference r peri was not used to interpret this result as normal/abnormal . Lab Interpretation (test Normal code = 47332-5) [place] [address] LEAD [id number] 14:46:2212 LEAD EKG FOR [facility] Test Date: 3477-79-05Vxo Name: EWA TREJO Department: 5520Patient ID: [id number] Room: Gender: Quality Process Lead: [id number]: 1975 Requested By: BETINA Schmitz Number: [id number] Giovanny MD: Emili Van M.D. MeasurementsIntervals [place] Rate: 112 P: 75PR: 139 QRS: 72QRSD: 90 T: 64QT: 311 QTc: 377 Interpretive StatementsSINUS TACHYCARDIAPOSSIBLE RIGHT ATRIAL ENLARGEMENT [0.25mV P-WAVE]POSSIBLE LEFT ATRIAL ENLARGEMENT [-0.1mV P- WAVE IN V1/V2]ABNORMAL RHYTHM ECGElectronically Signed On 10-04-2020 19:29:45 CDT by Emili Van M.D.[facility] Uyapzg58 LEAD [id number] 14:46:2212 LEAD EKG FOR [facility] Test Date: 6192-75-88Gde Name: EWA TREJO Department: 5520Patient ID: [id number] Room: Gender: M Quality Process Lead: [id number]: 1975 Requested By:BETINA Schmitz Number: [id number] Reading MD: Emili Van M.D. MeasurementsIntervals AxisRate: 112 P: 75PR: 139 QRS: 72QRSD: 90 T: 64QT: 311 QTc: 377 Interpretive StatementsSINUS TACHYCARDIAPOSSIBLE RIGHT ATRIAL ENLARGEMENT [0.25mV P-WAVE]POSSIBLE LEFT ATRIAL ENLARGEMENT [-0.1mV P-WAVE INV1/V2]ABNORMAL RHYTHM ECGElectronically Signed On 10-04-2020 19:29:45 CDT by Emili Van M.D.[facility] Afxcgt36 LEAD EKG 2020-10-02 12:34:2612 LEAD EKG FOR [facility] Test Date: 8354-85-57Pve Name: EWA KEVIN NEIL Department: 5520Patient ID: [id number] Room: Gender: M Quality Process Lead: [id number]: 1975 Requested By: MISSY VOGEL Order Number: [id number] Reading MD: joel klein MeasurementsIntervals [place] Rate: 82 P: 79PR: 163 QRS: 81QRSD: 98 T: 54QT: 365 QTc: 403 Interpretive StatementsSINUS RHYTHMPOSSIBLE RIGHT ATRIALENLARGEMENT [0.25mV P-WAVE]Electronically Signed On 10-02-2020 13:53:[address] [facility] centerkimSteve [place] [address] LEAD [id number] 12:34:2612 LEAD EKG FOR [facility] Test Date: 9034-12-70Son Name: EWA TREJO Department: 5520Patient ID: [id number] Room: Gender: M Quality Process Lead: [id number]: 1975 Requested By: MISSY VOGEL Order Number: [id number] Reading MD: joel klein MeasurementsIntervals [place] Rate: 82 P: 79PR: 163 QRS: 81QRSD: 98 T: 54QT: 365 QTc: 403 Interpretive StatementsSINUS RHYTHMPOSSIBLE RIGHT ATRIAL ENLARGEMENT [0.25mV P-WAVE]Electronically Signed On 10-02-2020 13:53:29 CDT by joel lundbergUniversity Hospitals Geneva Medical CenterUA, Urinalysis Rflx Cult/[id number] 23:32:00 Test Item Value Reference Range Interpretation Comments Color,Urine (test code Yellow Y = UCOL) Clarity,Urine (test Clear Clear code = UCLAR) PH,Urine (test code = 6.0 5.5-8.5 UPH.XX) Specific [place],Urine 1.025 1.005-1.030 N (test code = USG) [...] Negative Esterase,Urine (test code = ULEU) Urine Bhpkbkgyqtz8763-18-17 23:32:00 Test Item Value Reference Range Interpretation Comments RBC,Urine (test code = URBC.XX) 0-3 /HPF None Seen WBC,Urine (test code = UWBC.XX) 0-2 /HPF None Seen Squamous Epithelial Cell,Urine 0-20 /HPF None Seen A (test code = USQEPI.XX) Bacteria,Urine (test code = UBACT) Trace /HPF None Seen A Drug Screen,Pkjyh9317-26-07 23:32:00 Test Item Value Reference Range Interpretation [...] code = UPROP) Complete Blood Count Auto [id number] 23:30:00 Test Item Value Reference Range Interpretation [...] code = NRBCP) 0 % Comprehensive Metabolic [id number] 23:30:00 Test Item Value Reference Range Interpretation [...] U/L 46-116 N = ALP) Thyroid Stimulating [id number] 23:30:00 Test Item Value Reference Range Interpretation Comments Thyroid Stimulating Hormone 1.43 mcIU/mL 0.55-4.78 N (test code = TSH) CT Abdomen and Pelvis w/ Ndgcdsvn4588-40-63 12:23:28Patient: EWA TREJO Date/Time01/21/2020 11:55 CDTReason for ExamAbdominal painReportHISTORY: Abdominal painEXAM TYPE: CT abdomen and pelvis with IV contrast.Location code:I43PRWLNGFQR:Contrast - IV contrast was given, no oral [...] Carmen, JellylySigned (Electronic Signature): 01/21/2020 12:23 pmLipase [id number] 11:17:19 Test Item Value Reference Range Interpretation Comments Lipase Level (test code = Lipase 26 U/L 12-53 Level) Comprehensive Metabolic Cvahy2718-16-17 11:17:18 Test Item Value Reference Range Interpretation [...] Lipemia) 0 g/dL 1-2 H Comprehensive Metabolic [id number] 11:17:18 Test Item Value Reference Range Interpretation [...] 0 g/dL 1-2 H Lipemia) Comprehensive Metabolic [id number] 11:17:18 Test Item Value Reference Range Interpretation [...] ag e have not been validated by [facility] MDRD study and should be interpreted wit [...] ag e have not been validated by [facility] MDRD study and should be interpreted wit [...] 1-2 H Lipemia) Complete Blood Count with Hkotxyzgeiim7424-14-91 11:14:37 Test Item Value Reference Range Interpretation [...] = 0.00 x10 N NRBC Abs) Automated Sqtckglglpot8375-59-54 11:14:37 Test Item Value Reference Range Interpretation Comments Neutro Auto (test code = Neutro 62.6 % 36.0-70.0 Auto) Lymph Auto (test code = Lymph Auto) 27.0 % 12.0-44.0 Collier Auto (test code = Collier Auto) 7.7 % 0.0-11.0 Eos, Auto (test code = Eos, Auto) 1.7 % 0.0-7.0 Basophil Auto (test code = Basophil 0.6 % 0.0-2.0 Auto) Neutro Absolute (test code = Neutro 4.3 x10 1.6-7.4 Absolute) Lymph Absolute (test code = Lymph 1.86 x10 .50-4.60 Absolute) Collier Absolute (test code = Collier .53 x10 .00-1.20 Absolute) Eos Absolute (test code = Eos 0.12 x10 0.00-0.74 Absolute) Baso Absolute (test code = Baso 0.04 x10 0.00-0.21 Absolute) IG [id number] 11:14:37 Test Item Value Reference Range Interpretation Comments IG (test code = IG) 0.4 % 0.0-5.0 IG Abs (test code = IG Abs) 0 x10 N Urinalysis [id number] 11:12:03 Test Item Value Reference Range Interpretation Comments UA WBC (test code = UA WBC) None Seen 0-5 UA RBC (test code = UA RBC) 0-5 0-5 Urinalysis with Microscopic if [id number] 11:10:49 Test Item Value Reference Range Interpretation [...] Indicated Not Indicated A Ind?) Comprehensive Metabolic Zjjqs1529-72-05 00:28:22 Test Item Value Reference Range Interpretation [...] not provided, and t he patient is izzy le, multiply by 0.7 42. Results for [...] Foundation, [email or web address] XR Chest 1 View Torudnr9707-15-80 00:26:55Patient: EWA TREJO Date/Time07/29/2019 23:17 CDTReason for ExamCoughReportExam: AP chestLocation: H 12HISTORY: CoughComparison: 07/20/2019.Findings:The lungs are clear. The pulmonary vasculature is normal. The heart size is normal. The mediastinal silhouette is unremarkable. The bony thorax is intact.Impression:No acute disease. Final Dictated by: MD Potrer Francesco MDictated DT/TM: 07/30/2019 0:26 amSigned by: MD Porter Francesco MSigned (Electronic Signature): 07/30/2019 0:26 amComplete Blood Count with Hhxitgufhnbf7367-24-61 23:09:21 Test Item Value Reference Range Interpretation [...] code = IPF) 0 % N Automated Sznjkpifmcwn2724-99-37 23:09:21 Test Item Value Reference Range Interpretation Comments Neutro Auto (test code = Neutro 54.0 % 36.0-70.0 Auto) Lymph Auto (test code = Lymph Auto) 38.1 % 12.0-44.0 Collier Auto (test code = Collier Auto) 5.9 % 0.0-11.0 Eos, Auto (test code = Eos, Auto) 1.1 % 0.0-7.0 Basophil Auto (test code = Basophil 0.5 % 0.0-2.0 Auto) Neutro Absolute (test code = Neutro 4.9 x10 1.6-7.4 Absolute) Lymph Absolute (test code = Lymph 3.47 x10 .50-4.60 Absolute) Collier Absolute (test code = [place]lier .54 x10 .00-1.20 Absolute) Eos Absolute (test code = Eos 0.10 x10 0.00-0.74 Absolute) Baso Absolute (test code = Baso 0.05 x10 0.00-0.21 Absolute) IG [id number] 23:09:21 Test Item Value Reference Range Interpretation Comments IG (test code = IG) 0.4 % 0.0-5.0 IG Abs (test code = IG Abs) 0 x10 N Viral Culture, Rapid, Influenza [id number] 23:07:11CommentNegative:No Influenza A or B detected.Performed At: [facility] [id number] Sanjai MD Ph:[phone] 2019-07-22 15:12:060.06 A procalcitonin (PCT) level above [...] <2 ng/mL are obta ined.Performed At: [facility] [address] [id number] Saravanan Silva MD Ph:[phone] Culture Strep [id number] 08:06:18No Group A Strep at 24 hours. No Group A Strep at 48 hours.Flu A and B Khslvwej1998-04-74 12:03:04 Test Item Value Reference Range Interpretation Comments Influenza A Ag (test Negative Negative A negat brandy test code = Influenza A result do es not Ag) exclude infecti on with influenza A or B. Flu A or B antigen in the samle may be be low the detection l imit of the test. Culture of nega tive sample is recommended. Influenza B Ag (test Negative Negative code = Influenza B Ag) Lot # (test code = [id number] N Lot #) Expiration Dt (test 11/05/19 N code = Expiration Dt) Internal QC (test Acceptable code = Internal QC) Neg Control (test Negative code = Neg Control) Pos Control (test Not Performed code = Pos Control) Extract Lot # (test [id number] N code = Extract Lot #) Extract Exp. Dt (test 03/07/22 N code = Extract Exp. Dt) Streptococcus A Screen Rapid w/ Reflex [id number] 12:00:14 Test Item Value Reference Range Interpretation Comments Strep A Scn (test code = Strep Negative Negative A Scn) Lot # (test code = Lot #) [id number] Expiration Dt (test code = 08/20/20 N Expiration Dt) Neg Control (test code = Neg Not Performed Control) Pos Control (test code = Pos Not Performed Control) Internal QC (test code = Acceptable Internal QC) Comprehensive Metabolic [id number] 11:57:41 Test Item Value Reference Range Interpretation [...] National Kidney Foundation, http://nkdep.ni h.gov Comprehensive Metabolic Ujpkm2224-23-21 11:57:41 Test Item Value Reference Range Interpretation [...] National Kidney Foundation, http://nkdep.ni h.gov Comprehensive Metabolic Ckrrl3938-44-06 11:57:41 Test Item Value Reference Range Interpretation [...] ag e have not been validated by [facility] MDRD study and should be interpreted wit [...] ag e have not been validated by [facility] MDRD study and should be interpreted wit h caution. eGFR R esult Interpretation: eGFR > or = 60 is in the Normal RangeeGF R < 60 may mean kid paula diseaseeGFR < 1 5 may mean kidney failure Rang es recommended by the National Kidney Foundation, http://nkdep.ni h.gov Complete Blood Count with Hdkyycdfbuuq4247-06-54 11:47:07 Test Item Value Reference Range Interpretation [...] code = IPF) 0 % N Automated Mtejtisqvrjy4273-17-28 11:47:07 Test Item Value Reference Range Interpretation Comments Neutro Auto (test code = Neutro 77.8 % 36.0-70.0 H Auto) Lymph Auto (test code = Lymph Auto) 16.4 % 12.0-44.0 Collier Auto (test code = Collier Auto) 4.9 % 0.0-11.0 Eos, Auto (test code = Eos, Auto) 0.2 % 0.0-7.0 Basophil Auto (test code = Basophil 0.3 % 0.0-2.0 Auto) Neutro Absolute (test code = Neutro 7.9 x10 1.6-7.4 H Absolute) Lymph Absolute (test code = Lymph 1.66 x10 .50-4.60 Absolute) Collier Absolute (test code = Collier .50 x10 .00-1.20 Absolute) Eos Absolute (test code = Eos 0.02 x10 0.00-0.74 Absolute) Baso Absolute (test code = Baso 0.03 x10 0.00-0.21 Absolute) IG [id number] 11:47:07 Test Item Value Reference Range Interpretation Comments IG (test code = IG) 0.4 % 0.0-5.0 IG Abs (test code = IG Abs) 0 x10 N XR Chest 1 View Sbiumpt6808-07-03 10:49:13Patient: EWA TREJO Date/Time07/20/2019 10:00 CDTReason for ExamCoughReportLocation code: I6Edblc 1 viewIndication:Cough.Comparison: noneFindings:The heart and mediastinumare not remarkable.Costophrenic angles are clear.Lungs are clear.Bone is unremarkable for age.Impression:1. No radiographic evidence of acute cardiopulmonary disease. Final Dictated by: MD Roberts Daniel RDictated DT/TM: 07/20/2019 10:48 amSigned by: MD Roberts Daniel RSigned (ElectronicSignature): 07/20/2019 10:49 amUrine [id number] 07:03:28 C Urine Added by GL_SJM_UA_CUL_INDNo growth at 24 hours. No growth at 48 hours.CT Abdomen and Pelvis w/ Fqaelfwd6734-01-42 02:37:55Patient: EWA TREJO Date/Time12/06/2018 02:24 CDTReason for ExamAbdominal painReportCT abdomen and pelvis with IV contrast.Indication: Abdominal pain.Location: O46Zrnyjanvum: NoneTechnique: CT images of the abdomen and [...] degeneration. Final Dictated by: MD Mac Robert KDictated DT/TM: 12/06/2018 2:34 amSigned by: MD Mac Robert KSigned(Electronic Signature): 12/06/2018 2:37 amUrinalysis [id number] 02:19:28 Test Item Value Reference Range Interpretation Comments UA WBC (test code = UA WBC) None Seen 0-5 UA RBC (test code = UA RBC) 0-5 0-5 UA Bacteria (test code = UA Few A Bacteria) UA Squam Epithelial (test code = UA 0-5 Squam Epithelial) Urinalysis with Culture, if ylagwohag0227-48-36 02:07:26 Test Item Value Reference Range Interpretation [...] Ind?) rule GL_SJM_UA_MICRO _IN D Comprehensive Metabolic Cumrr7957-81-30 01:31:47 Test Item Value Reference Range Interpretation [...] A/G 2.0 ratio N Ratio) Comprehensive Metabolic Tnahs8843-17-71 01:31:47 Test Item Value Reference Range Interpretation [...] National Kidney Foundation, http://nkdep.ni h.gov Comprehensive Metabolic [id number] 01:31:47 Test Item Value Reference Range Interpretation [...] ag e have not been validated by [facility] MDRD study and should be interpreted wit [...] ag e have not been validated by [facility] MDRD study and should be interpreted wit h caution. eGFR R esult Interpretation: eGFR > or = 60 is in the Normal RangeeGF R < 60 may mean kid paula diseaseeGFR < 1 5 may mean kidney failure Rang es recommended by the National Kidney Foundation, http://nkdep.ni h.gov Complete Blood Count with Frvdvefkmamm9396-89-82 01:16:09 Test Item Value Reference Range Interpretation [...] code = IPF) 0 % N Automated Sxbxsjljhatb6148-99-14 01:16:09 Test Item Value Reference Range Interpretation Comments Neutro Auto (test code = Neutro 55.4 % 36.0-70.0 Auto) Lymph Auto (test code = Lymph Auto) 31.6 % 12.0-44.0 Collier Auto (test code = Collier Auto) 9.0 % 0.0-11.0 Eos, Auto (test code = Eos, Auto) 3.2 % 0.0-7.0 Basophil Auto (test code = Basophil 0.4 % 0.0-2.0 Auto) Neutro Absolute (test code = Neutro 4.2 x10 1.6-7.4 Absolute) Lymph Absolute (test code = Lymph 2.38 x10 .50-4.60 Absolute) Collier Absolute (test code = Collier .68 x10 .00-1.20 Absolute) Eos Absolute (test code = Eos 0.24 x10 0.00-0.74 Absolute) Baso Absolute (test code = Baso 0.03 x10 0.00-0.21 Absolute) IG [id number] 01:16:09 Test Item Value Reference Range Interpretation Comments IG (test code = IG) 0.4 % 0.0-5.0 IG Abs (test code = IG Abs) 0 x10 N Urinalysis [id number] 22:28:00 Test Item Value Reference Range Interpretation Comments Color (test code = COLOR) Yellow Yellow,Straw,Pl N yellow Clarity (test code = Clear Clear N CLAR) Specific [place] (test 1.020 1.001-1.035 N code = SPGR) [...] (test code = Few /HPF BACT) Urinalysis [id number] 22:51:00 Test Item Value Reference Range Interpretation Comments Color (test code = COLOR) Yellow Yellow,Straw,Pl N yellow Clarity (test code = Clear Clear N CLAR) Specific [place] (test 1.023 1.001-1.035 N code = SPGR) [...] (test code = Few /HPF BACT) US [id number] 22:25:58SCROTAL ULTRASOUNDLOCATION: P30LRHNBZMVLC: Left testicular pain.COMPARISON: None.TECHNIQUE: Grayscale and color [...] no varicocele.IMPRESSION:No acute abnormality in the scrotum.Urinalysis [id number] 23:35:00 Test Item Value Reference Range Interpretation Comments Color (test code = COLOR) Yellow Yellow,Straw,Pl N yellow Clarity (test code = Clear Clear N CLAR) Specific [place] (test 1.029 1.001-1.035 N code = SPGR) [...] code = Few /HPF BACT) Comprehensive Metabolic [id number] 23:27:00 Test Item Value Reference Range Interpretation [...] validated by th e MDRD study and stefano castellanos be interpretedwith caution.eGFR Re sult Interpretation: eGFR > or = 60 is in t he Normal RangeeGF R < 60 may mean kidney diseaseeGFR < 1 5 may mean kidney failureRange s recommended by the National Kidney Foundation,http ://nkd ep.nih.gov 55864& PELVIS W/O [id number] 23:26:51AFTER HOURS SERVICE ON: 03/13/2017 11:26 PMCT Scan of the Abdomen and Pelvis Without ContrastLocationCode F39Gqcqrat: Abd pain-HematuriaTechnique: Axial and reconstructed coronal scans were performed on [facility] scanner pre oral and IV [...] nephrolithiasis or obstructive biopsy.3. Mild hepatomegaly.CBC with [id number] 23:15:00 Test Item Value Reference Range Interpretation [...] code = ALYMPH) 2.8 K/cumm 0.5-4.6 N [place] Abs (test code = AMONO) 0.4 K/cumm 0.0-1.2 N Eos Abs (test code = AEOS) 0.15 K/cumm 0.00-0.74 N Baso Abs (test code = ABASO) 0.0 K/cumm 0.00-0.21 N XR chest [address] [facility] [address] [place] [address] Patient Name: Ewa Trejo Medical Record#: [id number] Address: [address] [place] [address] City/State/Zip: [place] [address]: Amparo Christensen/Kang Physician Insurance: Self Pay /Age/Sex: 1975/45/M Admit/Reg Date: 11/21/[address]: Desmond Hernandez MD Location: [facility]/ PCP: Pcp-Md SUKHDEEP Isabel Date of Service: 11/21/20 Order (s): XR chest 1V CPT Code: 94797 Report Number: [id number] Reason for Exam: CP EXAMINATION: XR chest 1V CLINICAL INDICATION: Male, 45 years year old with chest pain COMPARISON: None. FINDINGS: Single view(s) of the chest submitted. Support Devices: None. Heart: Cardiac silhouette is normal in size. Mediastinum: Mediastinal contours arenormal. Lungs: Pulmonary vessels are normal in size. Lungs are well aerated and clear. Pleura: No pleural effusion is identified. No pneumothorax is present. Bones: Visualized skeleton is normal. IMPRESSION: No acute cardiopulmonary disease. Electronically signed by: Dariusz Couch MD 11/21/2020 6:21 [facility] Dictated By: Dariusz Couch MD 11/21/20 050 Signed By: Delfino Couch MD 11/21/20 0501 TD/TT: 11/21/20 0501 Tech: GPS02 cc: DEVI HUYNH* PcpMd SUKHDEEP Gusman; Desmond Hernandez MD EKG ED Electrocardiogram [address] [address] Patient Name: Ewa Trejo Medical Record#: [id number] Address: [address] [place] [address] City/State/Zip: [place] [address]: Matt Diallo MD Insurance: Self Pay /Age/Sex: 1975/45/M Admit/Reg Date: 11/21/[address]: Desmond Hernandez MD Location: [facility]/ PCP: Md SUKHDEEP Muniz Date of Service: 11/21/20 Order (s): EKG ED Electrocardiogram CPT Code: 91258 Report Number: [id number] Reason for Exam: diaphoretic Sinus rhythm Probable left atrial enlargement Summary: Borderline ECG Dictated By: Sher Varghese MD 11/21/20428 Signed By: Lucas Varghese MD 11/23/20 1713 TD/TT: 11/21/20428 Tech: SVCCPACS cc: DEVI COELHO PcpMd SUKHDEEP Gusman; Desmond Hernandez MD Notes Date/Time Note Provider Source 2022-07-22 19:12:00-00:00 [facility] [address] [place] [id number] Emergency Department Document Signed Patient: Ewa Trejo Medical Record#: [id number] : 1975 Acct:[id number] Age/Sex: 46 / M Admit/Reg Date: 07/22/22 Loc: [facility] Room: Report Number: [id number]: Isrrael Quinteros MD Arrival - [...] Nothing makes it better or worse. (Isrrael Quinteros O) Allergies/Adverse Reactions: ciprofloxacin Allergy (Verified 07/22/22 19:05) Cramping of the Muscles Review of Systems ROS: Twelve system review was don e and is negative except for as mentioned HPI (Isrrael Quinteros) Past Medical/Surgical History Medical History: Medical History (Last Reviewed 06/19/22 @ 21:25 by MD Eliza Carter, [facility]) Depression (Medical) F32.A Schizophrenia (Medical) F20.9 Family/Social [...] Skin: Warm, dry. No rashes Neuro: Alert, body artist II-XII odalys ssly intact. Sensation and motor function of extremities grossly intact. Psych: Appropriate mood and affect. (Shira Quinteros) Results/Orders - Results and Orders Lab Testing [...] by Pulse Oximetry 98 07/22/22 19:05 - [facility] Medical decision making narrative: 07/22/22 19:57 Patient [...] Care Plan Goals: Please follow-up with your [facility] doctor. Please return to emergency room [...] MD [Primary Care Provider] - Print Language: Honduran - Discharge Data Time Seen by Provider: 07/22/22 18:47 Dictated By: Isrrael Quinteros MD Signed By: Isrrael Quinteros MD 07/22/221956 DD/ 11 TD/TT: 07/22/221911 Chair Pad Maker: BHANU cc: [email or web address]* Denny Magallon MD 2021-11-11 10:01:00-00:00 [facility] ([facility]) EMERGENCY PROVIDER REPORT REPORT#:[id number] REPORT STATUS: Signed DATE:11/11/21 TIME: 1001 PATIENT: EWA TREJO UNIT #: [id number] ROOM/BED: AGE: 46 SEX: M PCP PHYS: Undefined Provider SERVICE AUTHOR: Wilbur Segura DO * ALL edits or amendments must be made on the ACE/computer document * HPI-General Illness Free Text HPI [...] the last month. He was seen at [facility] several months ago and given Se [...] Documented: Result Date Time Pulse Ox 97 / 0440 B/P 118/81 11/12 0440 B/P Mean 93.3 / 0440 O2 Delivery Room air / 0440 Temp 97.7 / 0440 Pulse 71 / 0440 Resp 18 / 0440 Review of Vital Signs Reviewed Physical Exam [...] Lab Results Interpretation Results Laboratory Tests 11/11/21 1613: [Embedded Image Not Available] 11/11/21 0928: [Embedded Image Not Available] Laboratory Tests: 11/12 11/11 0343 1926 Chemistry Troponin I High Sens (0 - 45 ng/L) < 4 Serology SARS-CoV-2 Ag (Rapid) (Neg) Negative 11/11 11/11 1613 1613 Chemistry Troponin I High Sens (0 - 45 ng/L) 4 Toxicology Salicylates (2.8 - 20.0 THER MG/DL) < 1.7 L Urine Opiates Screen (<300 NG/ML SCcutoff) NONE DETECTED (NEG) Urine Barbiturates (<200 NG/ML SCcutoff) NONE D ETECTED (NEG) Ur Phencyclidine Scrn (<25 NG/ML SCcutoff) NONE DETECTED (NEG) Ur Amphetamines Screen (<1000 NG/ML SCcutoff) P OSITIVE H U Benzodiazepines Scrn (<200 NG/ML SCcutoff) NO NE DETECTED (NEG) Urine Cocaine Screen (<300 NG/ML SCcutoff) NONE DETECTED (NEG) Urine Cannabinoids (<50 NG/ML SCcutoff) NONE DE TECTED (NEG) 11/11 11/11 1613 0928 Chemistry Sodium (133 - 144 [...] 142/72 11/11 0910 B/P Mean 95 11/11 909 O2 Delivery Room air 11/11 909 Temp 98.0 11/11 909 Pulse 90 11/11 909 Resp 18 11/11 909 Last Documented: Result Date Time Pulse Ox 97 11/12 0440 B/P 118/81 11/12 0440 B/P Mean 93.3 11/12 044 O2 Delivery Room air 11/13 439 Temp 97.7 11/13 439 Pulse 71 11/13 439 Resp 18 11/13 439 All vital signs available at the time of this en try have been reviewed. Clinical Impression Clinical Impression Primary Impression: Suicidal ideation Disposition Decision Transfer )( Request Time 644 )( Request Date 11/12/21 Receiving [facility] )( Acceptance Time 644 )( Acceptance Date 11/12/21 Electronically Signed by Wilbur Segura DO o n 11/17/21 at 0036 RPT #:[id number] END OF REPORT 2021-10-08 08:10:00-00:00 [facility] ([facility]) EMERGENCY PROVIDER REPORT REPORT#:[id number] REPORT STATUS: Signed DATE:10/08/21 TIME: 809 PATIENT: EWA TREJO UNIT #: [id number] ROOM/BED: AGE: 45 SEX: M PCP PHYS: Denny Magallon MD SERVICE AUTHOR: Cristina Paz MD * ALL edits or amendments must be made on the ACE/computer document * HPI-Abd Pain M 42 and [...] been seen for this previously but in [place]. Patient suspects the symptoms are related to [...] Documented: Result Date Time Pulse Ox 99 06/03 0525 B/P 119/76 06/03 0525 B/P Mean 90 06/03 0525 O2 Delivery Room air 06/03 0525 Temp 36.8 06/03 0525 Pulse 94 06/03 0525 Resp 18 06/ 0525 Last Documented: Result Date Time Pulse Ox 99 06/03 0525 B/P 119/76 06/03 0525 B/P Mean 90 06/03 0525 O2 Delivery Room air 06/03 0525 Temp 36.8 06/03 0525 Pulse 94 06/03 0525 Resp 18 06/03 0525 Review of Vital Signs Reviewed Additional PE [...] ischemic changes, No STEMI, Normal QRS Re-Evaluation [facility] )( Re-Evaluation/Progress #1 Text/Dict Note Patient refused [...] STA 10/08 0539 DC / IV 10/08 0638 0621 Gastrointestinal Drugs Sig/Toma Start time Last Medication Dose Route Stop Time Status Admin Ondansetron HCl 4 MG X1ED STA 10/08 0538 DC IV 10/08 0539 Patient Discharge Departure Vital Signs/Condition Vital Signs First Documented: Result Date Time Pulse Ox 99 10/08 0525 B/P 119/76 / 0525 B/P Mean 90 10/08 0525 O2 Delivery Room air 10/08 0525 Temp 36.8 10/08 0525 Pulse 94 10/08 0525 Resp 18 10/08 0525 Last Documented: Result Date Time Pulse Ox 99 10/08 0525 B/P 119/76 / 0525 B/P Mean 90 / 0525 O2 Delivery Room air 10/08 0525 Temp 36.8 10/08 0525 Pulse 94 10/08 0525 Resp 18 10/08 0525 All vital [...] Referrals Provider Referral: Denny Magallon MD Address: [address] [facility] [address] [place] [address] at [address] RPT #:[id number] END OF REPORT 2021-01-05 02:45:00-00:00 [facility] ([facility]) EMERGENCY PROVIDER REPORT REPORT#:[id number] REPORT STATUS: Signed DATE:01/05/21 TIME: 0245 PATIENT: EWA TREJO UNIT #: [id number] ROOM/BED: AGE: 45 SEX: M PCP PHYS: [...] MD on 0 01/05/21 at 0246 RPT #:[id number] END OF REPORT
[2022-10-23] MEDS ORDERED: FENTANYL CITR 100 MCG/2 ML ONE (15:48)
[2022-10-23] MEDS ORDERED: PANTOPRAZOLE 40 MG INJ ONE (15:49)
[2022-10-23] MEDS ORDERED: NA CHLORIDE 0.9% 50 ML ONE (15:50)
[2022-10-23 16:02] LABS: Absolute Lymphocytes (CBC) 1.9 K/uL (0.7-4.9); Hematocrit 43.2 % (39.6-49.0); Lymphocytes % 25.6 % (15.3-44.8); MCV 92.5 fL (80-100); MPV 8.9 fL (7.6-11.3); RBC Red Blood Cell Count 4.67 M/uL (4.33-5.43)
[2022-10-23 16:21] LABS: Albumin 3.9 g/dL (3.4-5.0); Bilirubin Total 0.3 mg/dL (0.2-1.0); Potassium 4.1 mEq/L (3.5-5.1); Protein, Total 7.1 g/dL (6.4-8.2)
[2022-10-23 16:24] LABS: Specific Gravity 1.023 (1.005-1.030); Urine Bacteria None Seen /HPF (<20); Urine Bilirubin NEGATIVE (Negative); Urine Blood 1+ (Negative); Urine Clarity Clear (Clear); Urine Color Light-Yellow (Yellow); Urine Glucose NEGATIVE (Negative); Urine Protein NEGATIVE (Negative); Urine RBC 21-50 /HPF (None Seen); Urine Urobilinogen Normal (Normal)
[2022-10-23 16:35] LABS: Protime INR 0.82
--- NOTE | 2022-10-23 17:16 | RAD REPORT ---
EXAM DESCRIPTION: CT - Abdomen Pelvis W Contrast - 10/23/2022 4:37 pm CLINICAL HISTORY: abdominal pain, low back pain COMPARISON: No comparisons TECHNIQUE: Thin cut axial CT imaging of the abdomen and pelvis was performed following intravenous a dministration of 90 mL Isovue 300. Multiplanar reformats were generated and reviewed. All CT scans are performed using dose optimization technique as appropriate and may include automated exposure control or mA/KV adjustment according to patient size. FINDINGS: No suspicious findings in the lung bases. The liver, spleen, adrenal glands, and pancreas show no suspicious findings. Subcentimeter hypoattenu ating lesions scattered within the liver are nonspecific and difficult to characterize, may suggest s mall cysts Gallbladder and biliary tree are also without suspicious finding. Symmetric renal function is seen with no hydronephrosis or suspicious renal mass. No dilated bowel loops or bowel wall thickening. Mild fluid filling within nondistended central abdom inal small bowel loops. This is nonspecific. No free air, free fluid or inflammatory stranding. No he rnia, mass or bulky lymphadenopathy. The urinary bladder is without significant finding. No suspicious bony findings. Advanced right hip joint degenerative changes. IMPRESSION: Fluid filling within nondistended central abdominal small bowel loops is nonspecific, co uld relate to diarrheal state or mild enteritis. No other acute intra-abdominal process.
--- NOTE | 2022-10-23 17:49 | ER ---
Nurse's Notes [facility] Name: Vinny Ball Age: 46 yrs Sex: Male : 1975 Arrival Date: 10/23/2022 Time: 14:42 Bed 18 Private MD: Diagnosis: Disorder of teeth and supporting structures, unspecified;Low back pain;Abdominal pain, unspecified Presentation: 10/23 14:50 Chief complaint: Patient states: back pain x 2 months and has been taking ibuprofen and vg1 Tylenol and stated nothing is working; stated that past couple of days has notice 'dark stool' and has had burning upon urination and nausea. Currently taking antibiotics for tooth. Coronavirus screen: Vaccine status: Patient reports being unvaccinated. Client denies travel out of the [place] in the last 14 days. Ebola Screen: Patient negative for fever greater than or equal to 101.5 degrees Fahrenheit, and additional compatible Ebola Virus Disease symptoms Patient denies exposure to infectious person. Patient denies travel to an Ebola-affected area in the 21 days before illness onset. Initial Sepsis Screen: Does the patient meet any 2 criteria? No. Patient's initial sepsis screen is negative. Does the patient have a suspected source of infection? No. Patient's initial sepsis screen is negative. Risk Assessment: Do you want to hurt yourself or someone else? Patient reports no desire to harm self or others. Onset of symptoms was October 21, 2022. 14:50 Method Of Arrival: Ambulatory [facility] 14:50 Acuity: HAZEL 3 vg1 Triage Assessment: 14:53 General: Appears uncomfortable, Behavior is cooperative. Pain: Complains of pain in vg1 back and abdomen Pain currently is 9 out of 10 on a pain scale. Pain began 2-3 days ago. GI: Reports nausea, "dark stool". Musculoskeletal: Circulation, motion, and sensation intact. 14:53 : Reports burning with urination. vg1 Historical: - Allergies: 14:53 Cipro; vg1 - PMHx: 14:53 Gastritis; vg1 - Immunization history:: Client reports having NOT received the Covid vaccine. - Social history:: Smoking status: Patient reports the use of cigarette tobacco products, smokes one-half pack cigarettes per day. Screenin:03 [facility] ED Fall Risk Assessment (Adult) History of falling in the last 3 months, kr3 including since admission No falls in past 3 months (0 pts). Abuse screen: Denies threats or abuse. Nutritional screening: No deficits noted. Tuberculosis screening: No symptoms or risk factors identified. Assessment: 14:56 General: Appears in no apparent distress. uncomfortable, Behavior is calm, cooperative, kr3 appropriate for age. Pain: Complains of pain in back. Neuro: Level of Consciousness is awake, alert, obeys commands, Oriented to person, place, time, situation. Cardiovascular: Patient's skin is warm and dry. Respiratory: Airway is patent Respiratory effort is even, unlabored, Respiratory pattern is regular, symmetrical. EENT: No signs and/or symptoms were reported regarding the EENT system. Derm: No signs and/or symptoms reported regarding the dermatologic system. 16:59 Reassessment: Patient appears in no apparent distress at this time. Patient and/or kr3 family updated on plan of care and expected duration. Pain level reassessed. Patient is alert, oriented x 3, equal unlabored respirations, skin warm/dry/pink. Patient states symptoms have improved. 18:02 Reassessment: Patient appears in no apparent distress at this time. Patient and/or kr3 family updated on plan of care and expected duration. Pain level reassessed. Patient is alert, oriented x 3, equal unlabored respirations, skin warm/dry/pink. Vital Signs: 14:50 BP 129 / 80; Pulse 78; Resp 16; Temp 98.8(TE); Pulse Ox 99% on R/A; Weight 79.38 kg; vg1 Height 6 ft. 0 in. ; Pain 9/10; 16:30 BP 132 / 79; Pulse 72; Resp 18; Pulse Ox 100% on R/A; kr3 18:01 BP 128 / 76; Pulse 70; Resp 18; Pulse Ox 100% on R/A; kr3 14:50 Body Mass Index 23.73 (79.38 kg, 182.88 cm) vg1 14:50 Pain Scale: Adult vg1 ED Course: 14:44 Patient arrived in ED. mr 14:51 Brenton Dhillon PA is PHCP. cp 14:51 Lamonte Presley MD is Attending Physician. cp 14:53 Triage completed. vg1 14:53 Arm band placed on. vg1 14:56 Darrius, Juanis, RN is Primary Nurse. kr3 15:00 Bed in low position. Call light in reach. Side rails up X 1. kr3 15:29 Inserted saline lock: 20 gauge in right antecubital area, using aseptic technique. kr3 Blood collected. 16:39 CT Abd/Pelvis - IV Contrast Only In Process Unspecified. EDMS 17:48 Guanakito Booker MD is Referral Physician. cp 18:04 No provider procedures requiring assistance completed. IV discontinued, intact, kr3 bleeding controlled, No redness/swelling at site. Pressure dressing applied. Administered Medications: 15:40 Drug: Pantoprazole IVP 40 mg Route: IVP; Site: right antecubital; kr3 18:05 Follow up: Response: No adverse reaction kr3 15:45 Drug: fentaNYL (PF) IVP 25 mcg Route: IVP; Site: right antecubital; kr3 18:05 Follow up: Response: No adverse reaction; RASS: Alert and Calm (0) kr3 Medication: 18:04 VIS not applicable for this client. kr3 Outcome: 17:49 Discharge ordered by MD. cp 18:04 Discharged to home ambulatory. kr3 18:04 Condition: stable 18:04 Discharge instructions given to patient, Instructed on discharge instructions, follow up and referral plans. medication usage, Demonstrated understanding of instructions, follow-up care, medications, Prescriptions given X 3. 18:05 Patient left the ED. kr3 Signatures: Dispatcher [employer] EDMA Mary Kay TinajeroBrenton, EYAD PA Cheyenne Berg, RN RN vg1 Juanis Rizo, RN RN kr3 Corrections: (The following items were deleted from the chart) 14:55 14:50 Chief complaint: Patient states: back pain x 2 months and has been taking vg1 ibuprofen and Tylenol and stated nothing is working; stated that past couple of days has notice 'dark stool' and has had burning upon urination and nausea. vg1
--- NOTE | 2022-10-23 17:49 | EDPHYS ---
Physician Documentation [facility] Name: Vinny Ball Age: 46 yrs Sex: Male : 1975 Arrival Date: 10/23/2022 Time: 14:42 Bed 18 Private MD: ED Physician Lamonte Presley HPI: 10/23 15:30 This 46 yrs old Male presents to ER via Ambulatory with complaints of Back Pain. cp 15:30 The patient presents with pain that is acute, with no known mechanism of injury. cp 15:30 The symptoms are located in the low back. Onset: The symptoms/episode began/occurred 2 cp month(s) ago. The pain does not radiate. Associated signs and symptoms: Pertinent positives: abdominal pain, dark colored stools, Pertinent negatives: chest pain, constipation, fever, incontinence, diarrhea. Patient reports low back pain times 2 months. Denies injury. Noticed dark colored stools over past several days and concerned may be due to taking OTC ibuprofen and tylenol. Historical: - Allergies: 14:53 Cipro; vg1 - PMHx: 14:53 Gastritis; vg1 - Immunization history:: Client reports having NOT received the Covid vaccine. - Social history:: Smoking status: Patient reports the use of cigarette tobacco products, smokes one-half pack cigarettes per day. ROS: 15:35 Constitutional: Negative for body aches, chills, fever, poor PO intake. cp 15:35 Eyes: Negative for injury, pain, redness, and discharge. cp 15:35 ENT: Negative for drainage from ear(s), ear pain, sore throat, difficulty swallowing, difficulty handling secretions. 15:35 Cardiovascular: Negative for chest pain, palpitations. 15:35 Respiratory: Negative for cough, shortness of breath, wheezing. 15:35 Abdomen/GI: Positive for abdominal pain, dark colored stool, Negative for vomiting, diarrhea, constipation, bowel incontinence. 15:35 Neuro: Negative for altered mental status, dizziness, headache, weakness. 15:35 Back: Positive for pain at rest, pain with movement. cp 15:35 : Negative for urinary symptoms, flank pain, bladder incontinence, testicular pain 15:35 All other systems are negative. cp Exam: 15:40 Constitutional: The patient appears in no acute distress, alert, awake, non-toxic, well cp developed, well nourished. 15:40 Head/Face: Normocephalic, atraumatic. cp 15:40 Eyes: Periorbital structures: appear normal, Conjunctiva: normal, no exudate, no injection, Sclera: no appreciated abnormality, Lids and lashes: appear normal, bilaterally. 15:40 ENT: External ear(s): are unremarkable, Ear canal(s): are normal, clear, TM's: dullness, bilaterally, Nose: is normal, Mouth: Lips: moist, Oral mucosa: pink and intact, moist, Posterior pharynx: is normal, airway is patent, no erythema, no exudate, Dental exam: abscess, is not appreciated, dental caries, that is severe, diffusely, missing teeth, diffusely, pain, that is mild, specifically in the upper right second bicuspid (#4) and lower right second bicuspid (#29). 15:40 Chest/axilla: Inspection: normal, Palpation: is normal, no crepitus, no tenderness. 15:40 Cardiovascular: Rate: normal, Rhythm: regular, Edema: is not appreciated, JVD: is not appreciated. 15:40 Respiratory: the patient does not display signs of respiratory distress, Respirations: normal, no use of accessory muscles, no retractions, labored breathing, is not present, Breath sounds: are clear throughout, no decreased breath sounds, no stridor, no wheezing. 15:40 Abdomen/GI: Inspection: abdomen appears normal, Bowel sounds: active, Palpation: soft, in all quadrants, moderate abdominal tenderness, in the epigastric area, right lower quadrant and left lower quadrant, rebound tenderness, is not appreciated, involuntary guarding, is not appreciated. 15:40 Back: pain, that is moderate, of the low back area and mid back area, ROM is painful, with all movement. 15:40 Neuro: Orientation: to person, place \T\ time. Mentation: is normal, Motor: moves all fours, strength is normal, Sensation: is normal, Gait: is steady, at a normal pace, without difficulty. Vital Signs: 14:50 BP 129 / 80; Pulse 78; Resp 16; Temp 98.8(TE); Pulse Ox 99% on R/A; Weight 79.38 kg; vg1 Height 6 ft. 0 in. ; Pain 9/10; 16:30 BP 132 / 79; Pulse 72; Resp 18; Pulse Ox 100% on R/A; kr3 18:01 BP 128 / 76; Pulse 70; Resp 18; Pulse Ox 100% on R/A; kr3 14:50 Body Mass Index 23.73 (79.38 kg, 182.88 cm) vg1 14:50 Pain Scale: Adult vg1 MDM: 14:57 Patient medically screened. 16:00 Differential diagnosis: Cholelithiasis Peptic Ulcer Pyelonephritis Ureterolithiasis GI cp bleed, anemia, dental abscess. 17:48 Data reviewed: vital signs, nurses notes, lab test result(s), radiologic studies, CT cp scan. 17:48 I considered the following discharge prescriptions or medication management in the emergency department Medications were administered in the Emergency Department. See MAR. Care significantly affected by the following chronic conditions: dental disease. Counseling: I had a detailed discussion with the patient and/or guardian regarding: the historical points, exam findings, and any diagnostic results supporting the discharge/admit diagnosis, lab results, radiology results, the need for outpatient follow up, for definitive care, a dentist, a help desk team leader, to return to the emergency department if symptoms worsen or persist or if there are any questions or concerns that arise at home. Response to treatment: the patient's symptoms have markedly improved after treatment, and as a result, I will discharge patient. 10/23 15:20 Order name: CBC with Diff; Complete Time: 16:47 10/23 16:47 Interpretation: Reviewed. 10/23 15:20 Order name: CMP; Complete Time: 16:24 10/23 16:24 Interpretation: Normal except: BUN 19. 10/23 15:20 Order name: Lipase; Complete Time: 16:24 10/23 15:20 Order name: Urinalysis w/ reflexes; Complete Time: 16:47 10/23 16:47 Interpretation: Normal except: UBLD 1+; URBC 21-50. 10/23 15:20 Order name: PT-INR; Complete Time: 16:47 cp 10/23 15:20 Order name: Ptt, Activated; Complete Time: 16:47 10/23 16:50 Interpretation: Reviewed. 10/23 15:21 Order name: CT Abd/Pelvis - IV Contrast Only; Complete Time: 17:27 10/23 15:20 Order name: IV Saline Lock; Complete Time: 15:29 cp 10/23 15:20 Order name: Labs collected and sent; Complete Time: 15:38 cp Administered Medications: 15:40 Drug: Pantoprazole IVP 40 mg Route: IVP; Site: right antecubital; kr3 18:05 Follow up: Response: No adverse reaction kr3 15:45 Drug: fentaNYL (PF) IVP 25 mcg Route: IVP; Site: right antecubital; kr3 18:05 Follow up: Response: No adverse reaction; RASS: Alert and Calm (0) kr3 Disposition Summary: 10/23/22 17:49 Discharge Ordered Location: Home cp Problem: an ongoing problem cp Symptoms: have improved cp Condition: Stable cp Diagnosis - Disorder of teeth and supporting structures, unspecified cp - Low back pain cp - Abdominal pain, unspecified cp Followup: cp - With: Guanakito Booker MD - When: 2 - 3 days - Reason: abdominal pain Discharge Instructions: - Discharge Summary Sheet cp - Abdominal Pain, Adult cp - Acute Back Pain, Adult cp - Dental Pain cp - Back Exercises cp Forms: - Medication Reconciliation Form cp - Thank You Letter cp - Antibiotic Education cp - Prescription Opioid Use cp Prescriptions: - Clindamycin HCl 300 mg Oral Capsule - take 1 capsule by ORAL route every 6 hours for 10 days; 40 capsule; Refills: 0, cp Product Selection Permitted - Protonix 40 mg Oral Tablet - take 1 tablet by ORAL route once daily; 30 tablet; Refills: 0, Product cp Selection Permitted - Cyclobenzaprine 10 mg Oral Tablet - take 1 tablet by ORAL route every 8 hours As needed; 30 tablet; Refills: 0, cp Product Selection Permitted Signatures: Dispatcher [employer] EDMS Brenton Dhillon PA PA cp Garcia, Victoria RN RN vg1 Juanis Rizo RN RN kr3 Corrections: (The following items were deleted from the chart) 10/24 13:52 10/23 15:35 Abdomen/GI: Positive for abdominal pain, dark colored stool, Negative for cp vomiting, diarrhea, constipation, cp
[2022-10-23 18:11] VITALS: TEMP 98.8
[2022-10-23 18:12] VITALS: O2SAT 100
[2022-10-23 18:14] VITALS: BP 128/76
== END 2022-10-23 18:05 | disposition home or self-care (01) ==
LOC: ER 14:42
DX: M54.50 Low back pain, unspecified (principal); K08.89 Other specified disorders of teeth and supporting structures; R10.9 Unspecified abdominal pain
CPT/HCPCS: 36415; 74177; 80053; 81001; 83690; 85025; 85610; 85730; 96374; 96375; 99284; C9113; J3010; Q9967